=== PATIENT | male | born 1965 | race Caucasian/White ===

== ENCOUNTER 2023-03-16 00:42 | Inpatient (IN) | payer BC, SELFPAY ==
[2023-03-16] VITALS (35 sets, daily range): BP systolic 95–156; BP diastolic 55–96; PULSE 80–108; RESP 14–21; TEMP 36.1–37.7; O2SAT 89–99; BMI 36.6
--- NOTE | ~2023-03-16 | CT_ITS ---
EXAMINATION: CT abdomen pelvis w con DATE: 03/16/2023 03:40 INDICATION: Right perirectal/perianal abscess. TECHNIQUE: Computed tomography (CT) of the abdomen and pelvis was performed with 100 mL Omnipaque 350 intravenous contrast. Automated exposure control and iterative reconstruction technique were employe d. The dose-length product was 1526.82 mGy-cm. COMPARISON: None. FINDINGS: The visualized portions of the lung bases demonstrate mild atelectasis. No pleural effusion . The heart size is normal. No pericardial effusion. There is a small sliding hiatal hernia. There is diffuse hepatic steatosis. There are cysts in the liver measuring up to 15 mm. The gallbladder, sple en, pancreas, adrenal glands, and left kidney are normal. There are cysts in right kidney measuring u p to 7 mm. The prostate is moderately enlarged. There is a 4.3 x 1.0 x 2.1 cm perianal abscess on the right. There is fat stranding around this area, consistent with cellulitis. There are no dilated loo ps of bowel. The appendix is normal. There is mild aortic atherosclerosis. There are no pathologicall y enlarged lymph nodes. There is no free intraperitoneal fluid. There are changes of umbilical hernia repair. There is moderate lumbar spondylosis and mild thoracic spondylosis. IMPRESSION: 1. 4.3 x 1.0 x 2.1 cm right perianal abscess. Reviewed, dictated and finalized at location E.
--- NOTE | ~2023-03-16 | CT_ITS ---
EXAMINATION: CT abdomen pelvis w con DATE: 03/19/2023 13:33 INDICATION: Assess underlying perirectal abscess TECHNIQUE: Computed tomography (CT) of the abdomen and pelvis was performed with 100 mL Omnipaque-350 intravenous contrast. Automated exposure control and iterative reconstruction technique were employe d. The dose-length product was 1615.94 mGy-cm. COMPARISON: 03/16/2023 FINDINGS: Mild dependent atelectasis in the bilateral lower lobes. Heart size is normal. Aortic valve calcifica tion. No pericardial or pleural effusion. Small sliding-type hiatal hernia. Diffuse hepatic steatosis with focal sparing along the gallbladder fossa. There are few small low-attenuation hepatic cysts me asuring up to 1.5 cm. Gallbladder, pancreas, spleen, bilateral adrenal glands and left kidney are nor mal. There are couple subcentimeter right renal cyst. Postoperative change of prior umbilical hernia mesh repair. Bowels including the appendix are normal. Prostatomegaly. Bladder is normal. Small bilat eral fat-containing inguinal hernias. Interval placement of a surgical drain which extends to the subcutaneous fat slightly caudal to the p rior peripherally enhancing centrally low attenuation subcutaneous perianal abscess which has decreas ed in size, previously measuring 4.4 x 1.0 x 2.6 cm to currently measuring 3.5 x 0.5 x 1.6 cm. There is persistent stranding in the surrounding subcutaneous fat at the right buttock. There are a couple residual more homogeneous soft tissue density nodules without peripheral enhancement in the perirecta l fat cephalad to the level of the levator ani muscle, the larger and more caudal slightly centered s lightly to the right of midline measuring up to 2.7 x 1.8 cm and the smaller more cephalad centered t o the left of midline measuring up to 2.3 x 1.4 cm. There is no evidence stranding in the surrounding perirectal fat cephalad to the levator ani muscle.. IMPRESSION: 1. Decrease in size post incision and drainage of a now 3.5 x 0.5 x 1.6 cm superficial right perianal abscess. . Surgical drains extend through the subcutaneous fat slightly superficial to the residual abscess cavity. 2. A couple indeterminate more nodular appearing soft tissue densities abutting the posterior rectum located cephalad to the levator ani muscle and without surrounding inflammatory stranding. These coul d represent additional small abscesses however more homogeneous soft tissue density and lack of signi ficant surrounding inflammatory stranding as well as the risks and concern for neoplasm either benign or malignant or enlarged lymph nodes. Consider further evaluation with either endorectal ultrasound or pre and postcontrast MRI. Reviewed, dictated and finalized at location A. IMPRESSION: 1. Decrease in size post incision and drainage of a now 3.5 x 0.5 x 1.6 cm supe rficial right perianal abscess. . Surgical drains extend through the subcutaneo us fat slightly superficial to the residual abscess cavity. 2. A couple indeterminate more nodular appearing soft tissue densities abutting the posterior rectum located cephalad to the levator ani muscle and without huber rrounding inflammatory stranding. These could represent additional small absces ses however more homogeneous soft tissue density and lack of significant surrou nding inflammatory stranding as well as the risks and concern for neoplasm eith er benign or malignant or enlarged lymph nodes. Consider further evaluation wit h either endorectal ultrasound or pre and postcontrast MRI.
[2023-03-16] MEDS: SODIUM CHLORIDE 0.9% IV 1,000 ML 999 ML IV CONT ×2 (02:45→04:23)
[2023-03-16] MEDS: ONDANSETRON INJ 4 MG/2 ML VIAL IV PUSH (02:45)
[2023-03-16] MEDS: HYDROmorphone HCL INJ (*CRX) 1 MG/ML SYR IV PUSH ×5 (02:46→19:58)
--- NOTE | 2023-03-16 02:59 | ED_ITS ---
HPI - General Adult General Chief complaint: Skin/Abscess/Foreign Body Stated complaint: cyst near anus History of Present Illness HPI narrative: Patient 57-year-old gentleman who presents emerged department with chief complaint of right gluteal pain. The patient reports that he had a small cyst area that developed in his buttocks that he thought was initially a hemorrhoid became red tender and swollen. Patient reports he was seen at [facility] this morning the put him on oral antibiotics with Cipro and Flagyl did not do any imaging or lab and sent him home the patient reports that since she is left palm is right gluteal area has become firm red and is exquisitely tender. Related Data Allergies Allergy/AdvReac Type Severity Reaction Status Date / Time azithromycin Allergy Hives Verified 03/16/23 00:43 Review of Systems Review of Systems: A 10 system review of systems was completed on the patient and is negative except for what is stated in the HPI. Nursing and ancillary documentation was reviewed. Exam Narrative: GENERAL: Well-appearing, well-nourished, and in no acute distress. HEAD: Normocephalic, atraumatic. EYES: PERRLA and EOMI. ENT: Nares clear, no rhinorrhea or epistaxis. Mucous membranes moist. NECK: Supple. CHEST: Clear to auscultation. No respiratory distress. HEART: Regular rate and rhythm. No murmur heard. Normal peripheral pulses. ABDOMEN: Soft, nontender, nondistended, normal active bowel sounds. : The right hemibuttock is swollen tender erythematous there is no crepitance. There is no necrotic tissue EXTREMITIES: Normal range of motion. No edema. SKIN: Warm, dry, no rash. NEURO: No focal deficits. Alert and oriented x3. PSYCH: Normal mood and affect. Course Vital Signs Vital signs: Vital Signs Temperature 37.2 C 03/16/23 00:50 Pulse Rate 105 H 03/16/23 00:50 Respiratory Rate 18 03/16/23 00:50 Blood Pressure 125/58 L 03/16/23 00:50 Pulse Oximetry 97 03/16/23 00:50 Oxygen Delivery Room Air 03/16/23 00:50 Temperature 37.2 C 03/16/23 00:50 Pulse Rate 103 H 03/16/23 01:45 Respiratory Rate 14 03/16/23 01:45 Blood Pressure 156/74 H 03/16/23 01:45 Pulse Oximetry 97 03/16/23 01:45 Oxygen Delivery Room Air 03/16/23 00:50 Medical Decision Making Vital Signs Vital Signs: Vital Signs Temperature 37.2 C 03/16/23 00:50 Pulse Rate 105 H 03/16/23 00:50 Respiratory Rate 18 03/16/23 00:50 Blood Pressure 125/58 L 03/16/23 00:50 Pulse Oximetry 97 03/16/23 00:50 Oxygen Delivery Room Air 03/16/23 00:50 Temperature 37.2 C 03/16/23 00:50 Pulse Rate 103 H 03/16/23 01:45 Respiratory Rate 14 03/16/23 01:45 Blood Pressure 156/74 H 03/16/23 01:45 Pulse Oximetry 97 03/16/23 01:45 Oxygen Delivery Room Air 03/16/23 00:50 Discharge Plan Discharge Follow-up/Referrals: PHYSICIAN,SENIOR QUALITATIVE RESEARCHER [Primary Care Provider] -
[2023-03-16 03:06] LABS: Basophils Absolute Auto 0.1 K/mm3 (0.0-0.1); Basophils Percent Auto 0.4 % (0.2-1.2); Eosinophils Percent Auto 0.2 % (0-4.4); Hematocrit 50.6 % (42.0-52.0); Immature Granulocyte Absolute 0.19 K/mm3 (0.00-0.031); Immature Granulocyte Percent A 0.8 % (0-0.5); Lymphocytes Percent Auto 10.1 % (18.3-44.2); Mean Corpuscular HGB Conc 33.6 g/dl (32-36); Mean Corpuscular Hemoglobin 32.8 pg (26-34); Mean Corpuscular Volume 97.5 fl (80-100); Mean Platelet Volume 11.5 fl (7.4-10.4); Monocytes Absolute Auto 2.2 K/mm3 (0.1-0.6); Monocytes Percent Auto 8.9 % (2.6-8.5); Neutrophils Absolute Auto 19.7 K/mm3 (1.3-6.7); Neutrophils Percent Auto 79.6 % (45.5-73.1); Platelet Count Result 207 k/mm3 (150-375); Red Blood Count 5.19 M/mm3 (4.6-6.20); Red Cell Distribution Width 12.3 % (11.5-14.5); White Blood Count 24.8 K/mm3 (4.5-10.0)
[2023-03-16 03:16] LABS: Alanine Aminotransferase 18 U/L (6-50); Albumin Level 4.2 g/dL (3.5-5.1); Alkaline Phosphatase 93 U/L (38-126); Anion Gap 9 mmol/L (8-16); Aspartate Amino Transferase 28 U/L (17-59); Blood Urea Nitrogen 15 mg/dL (9-20); Calcium 8.9 mg/dL (8.4-10.2); Carbon Dioxide 28 mmol/L (22-30); Chloride 99 mmol/L (98-107); Estimated CRCL calculation 116 ml/min; Estimated Glomerular Filt Rate > 60; Glucose 137 mg/dL (65-110); Lipase 59 U/L (23-300); Sodium 136 mmol/L (137-145)
[2023-03-16 03:17] LABS: INR 1.1; Prothrombin Time 14.6 Seconds (11.1-14.7)
[2023-03-16 03:18] LABS: Partial Thromboplastin Time 32.4 SECONDS (22.3-36.8)
[2023-03-16] MEDS: PIPERACILLN/TAZ 3.375GM/NS50ML 3.375 GM/50 ML BAG IVPB ×4 (04:05→20:01)
[2023-03-16] MEDS: ACETAMINOPHEN 500 MG TABLET 1000 MG PO (04:19)
--- NOTE | 2023-03-16 04:31 | PC.NURSE ---
pt has a temp of 100.5 Tylenol was given. Pts abscess on his right buttox is red,hot and the center is hard. Abscess has been outlined with a green sharpie
--- NOTE | 2023-03-16 06:04 | PC.NURSE ---
report called to Tess.
[2023-03-16] MEDS: SODIUM CHLORIDE 0.9% IV 1,000 ML 125 ML IV CONT (06:07)
--- NOTE | 2023-03-16 06:44 | ADMGEN ---
This patient, Trenton Crockett, was admitted to Medical Room 242-01. Patient/family oriented to hospital policies and general routines including ID bracelet, bed and alarms, visiting hours, pain management, procedures, bathroom and other care routines, personal items, smoking policy, room service/diet, and visiting hours. Information on how to activate the Rapid Response Team has been discussed. Patient/Family are encouraged to report perceived risks to care and to ask questions if they do not understand what they are told or what they should do.
--- NOTE | 2023-03-16 08:11 | WPDANESEPPF ---
Anes - Initial Pre Proc Eval Procedure: Operation Date: 03/16/23 08:00 Proposed Procedures p I&D Indu-Rectal Abscess - Zachary Schmidt MD Date/Time: 03/16/23 08:11 Surgeon: Zachary Schmidt MD Pre Op Diagnosis: Perianal Abscess Patient Data Age: 57 Gender: M Height: 1.8 m Weight: 119.1 kg Last Vital Signs Temp 36.6 C 03/16/23 06:34 Pulse 93 03/16/23 06:34 Resp 16 03/16/23 06:34 BP 136/81 03/16/23 06:34 Pulse Ox 93 03/16/23 06:34 O2 Del Method Room Air 03/16/23 00:50 Allergies Allergy/AdvReac Type Severity Reaction Status Date / Time azithromycin Allergy Hives Verified 03/16/23 00:43 Home Medications Medication Instructions Recorded Confirmed Type No Home Medications 03/16/23 03/16/23 History Laboratory Tests 03/16/23 02:51 WBC 24.8 H K/mm3 (4.5-10.0) RBC 5.19 M/mm3 (4.6-6.20) Hgb 17.0 g/dL (14.0-18.0) Hct 50.6 % (42.0-52.0) MCV 97.5 fl (80-100) MCH 32.8 pg (26-34) MCHC 33.6 g/dl (32-36) RDW 12.3 % (11.5-14.5) Plt Count 207 k/mm3 (150-375) MPV 11.5 H fl (7.4-10.4) Immature Gran % (Auto) 0.8 H % (0-0.5) Neut % (Auto) 79.6 H % (45.5-73.1) Lymph % (Auto) 10.1 L % (18.3-44.2) [place] % (Auto) 8.9 H % (2.6-8.5) Eos % (Auto) 0.2 % (0-4.4) Baso % (Auto) 0.4 % (0.2-1.2) Lymph # (Auto) 2.50 K/mm3 (0.9-3.2) [place] # (Auto) 2.2 H K/mm3 (0.1-0.6) Eos # (Auto) 0.0 K/mm3 (0-0.3) Baso # (Auto) 0.1 K/mm3 (0.0-0.1) Abs Immat Gran (auto) 0.19 H K/mm3 (0.00-0.031) Absolute Neuts (auto) 19.7 H K/mm3 (1.3-6.7) Absolute Nucleated RBC 0.0 K/mm3 (0.0-0.012) Nucleated RBC % 0.0 % (0.0-0.2) PT 14.6 Seconds (11.1-14.7) INR 1.1 APTT 32.4 SECONDS (22.3-36.8) Sodium 136 L mmol/L (137-145) Potassium 4.0 mmol/L (3.4-5.0) Chloride 99 mmol/L (98-107) Carbon Dioxide 28 mmol/L (22-30) Anion Gap 9 mmol/L (8-16) BUN 15 mg/dL (9-20) Creatinine 0.80 mg/dL (0.7-1.3) Estim Creat Clear Calc 116 ml/min Estimated GFR > 60 (59 - ) Glucose 137 H mg/dL (65-110) Lactic Acid 2.0 mmol/L (0.7-2.0) Calcium 8.9 mg/dL (8.4-10.2) Total Bilirubin 2.0 H mg/dL (0.2-1.3) AST 28 U/L (17-59) ALT 18 U/L (6-50) Alkaline Phosphatase 93 U/L (38-126) Total Protein 8.0 g/dL (6.3-8.2) Albumin 4.2 g/dL (3.5-5.1) Lipase 59 U/L (23-300) Patient hx anesthesia problems: none Family hx anesthesia problems: none Results Review: All pre-operative results and documents have been reviewed as part of the pre-operative evaluation. [facility] Social History Social History Smoking packs per day: 20 Smoking cigarettes per day: 400.0 Smoking status: Current every day smoker Tobacco type: cigarettes Alcohol intake: current Drinks per week: 1 Substance use: never Substance use type: does not use Lack of Transportation: No Lack of Food: Never True Current Housing: I Have Housing Concerned About Future Housing: No Difficulty Paying Gas/Electric Bills: No Difficulty Paying for Meds: No Currently Unemployed: No Education: Bachelor's Degree Difficulty w/ Childcare or Family Care: No Spiritual care concerns: No Anes - Eval Final PreProcedure Day of Procedure 03/16/23 08:11 Patient weight: obese Heart: regular rate and rhythm Lungs: decreased breath sounds Airway: Mallampati scale class II Neurological: alert and oriented Last oral intake: >/= 8 hours ASA classification: III Emergent: yes Anesthetic plan: proceed Anesthesia type and monitoring: general LMA and standard monitoring Results Review: All pre-operative results and documents have been reviewed as part of the pre-operative evaluation. Informed Consent: The patient's anesthetic plan and its attendant risks and be
--- NOTE | 2023-03-16 08:17 | PM.IMHP ---
H&P: HPI History of Present Illness Date/Time: 03/16/23 08:17 Chief Complaint: Perirectal abscess. Narrative: Patient is a 57-year-old gentleman presented to the emergency room with a four-day history of increasing right medial buttock pain. He has never had a prior perirectal abscess. Subjective fevers and chills at home. He had elevated white blood count [address] in the emergency room. CT scan of the abdomen pelvis showed a large area of phlegmon in the medial right buttock region with a 4cm perirectal abscess. He is being admitted for IV antibiotics and surgical management. He is not a diabetic. Review of Systems Review of Systems: The remainder of the review of systems to include constitutional, HEENT, cardiovascular, respiratory, GI, , integumentary, musculoskeletal, endocrine, immunologic, hematologic, psychiatric, and neurologic are all negative except for which is mentioned above in the HPI. [facility] Social History Social History Smoking packs per day: 20 Smoking cigarettes per day: 400.0 Smoking status: Current every day smoker Tobacco type: cigarettes Alcohol intake: current Drinks per week: 1 Substance use: never Substance use type: does not use Lack of Transportation: No Lack of Food: Never True Current Housing: I Have Housing Concerned About Future Housing: No Difficulty Paying Gas/Electric Bills: No Difficulty Paying for Meds: No Currently Unemployed: No Education: Bachelor's Degree Difficulty w/ Childcare or Family Care: No Spiritual care concerns: No Meds Home Medications and Allergies Home Medications Medication Instructions Recorded Confirmed Type No Home Medications 03/16/23 03/16/23 History Allergies Allergy/AdvReac Type Severity Reaction Status Date / Time azithromycin Allergy Hives Verified 03/16/23 00:43 Vital Signs Vital Signs - 24 hr 03/16/23 00:50 03/16/23 01:45 03/16/23 01:15 Temperature 37.2 C Pulse Rate 105 H 103 H 108 H Respiratory Rate 18 14 19 Blood Pressure 125/58 L 156/74 H 153/96 H Pulse Oximetry 97 97 99 Oxygen Delivery Room Air 03/16/23 04:06 03/16/23 01:35 03/16/23 01:47 Temperature Pulse Rate 101 H Respiratory Rate 14 Blood Pressure 136/89 153/96 H 156/74 H Pulse Oximetry 99 Oxygen Delivery 03/16/23 04:09 03/16/23 04:10 03/16/23 04:17 Temperature Pulse Rate Respiratory Rate Blood Pressure 129/72 Pulse Oximetry 91 92 90 Oxygen Delivery 03/16/23 04:30 03/16/23 04:31 03/16/23 04:45 Temperature Pulse Rate Respiratory Rate Blood Pressure 146/84 H Pulse Oximetry 91 89 L 92 Oxygen Delivery 03/16/23 05:00 03/16/23 05:02 03/16/23 05:15 Temperature Pulse Rate Respiratory Rate Blood Pressure 126/71 Pulse Oximetry 93 94 93 Oxygen Delivery 03/16/23 05:33 03/16/23 05:30 03/16/23 05:31 Temperature 36.5 C Pulse Rate Respiratory Rate Blood Pressure 125/75 Pulse Oximetry 93 94 Oxygen Delivery 03/16/23 05:45 03/16/23 06:00 03/16/23 06:01 Temperature Pulse Rate Respiratory Rate 21 H Blood Pressure 131/74 Pulse Oximetry 96 93 95 Oxygen Delivery 03/16/23 06:34 Temperature 36.6 C Pulse Rate 93 Respiratory Rate 16 Blood Pressure 136/81 Pulse Oximetry 93 Oxygen Delivery Exam Const: General: comfortable and no acute distress Eyes: Sclera: sclerae normal Pupils: Equal, round and reactive pupils present EOM: EOMs intact bilaterally Neck: Neck: supple and no JVD Resp: Effort & Inspection: normal respiratory effort Auscultation: clear to auscultation bilaterally Cardio: Rate: regular rate Rhythm: regular rhythm GI: GI Palp: Yes Soft to palpation, No Firmness to palpation present (GI), No Tenderness to palpation present (GI), No Guarding due to palpation present (GI) and No Hernia present Skin: Other: Patient has a 10
--- NOTE | 2023-03-16 08:22 | WPDHPUPDATE1 ---
History and Physical Update Update Date/Time: 03/16/23 08:22 History and Physical has been reviewed, including an updated exam of the patient. There are NO changes in the patient's condition. Risks, benefits, and alternatives have been discussed and questions answered. Patient agrees to proceed with procedure.
[2023-03-16] MEDS: LIDO 1%/EPINEPHRINE 1:100,000 20 ML VIAL 30 ML INFILTRATE (08:58)
[2023-03-16] MEDS: KETOROLAC 30 MG/ML VIAL (*BKC) IV PUSH (09:00)
[2023-03-16] MEDS: LACTATED RINGERS 1,000 ML 30 ML IV CONT (09:19)
--- NOTE | 2023-03-16 09:39 | W.PM.PROC2 ---
Procedure Note - Detailed Date of Procedure 03/16/23 Pre-op Diagnosis Perirectal abscess Post-op Diagnosis Same Procedure Performed Complex incision and drainage of perirectal abscess. Surgeon Zachary Schmidt MD Radiation Officer [facility] Anesthesia General Indications Patient presented with 4 day history of perianal pain. White blood cell count [address] showed 4cm perirectal abscess. Presents now for emergent incision and drainage of abscess. Findings Large right side a perirectal abscess with extension superiorly to the base of the perineum and posteriorly towards the coccyx. Abscess cavity 4 to 5 cm in diameter. Description of Procedure After informed consent was obtained patient brought to the operating room was placed in the lithotomy position on the operative table and then general endotracheal anesthesia was administered. The perianal and perineal region was then prepped and draped in usual sterile fashion with the patient and high stirrups. As there was so much induration and not much fluctuance to be felt in the medial right buttock region I used a long 18gauge needle to aspirate the soft tissue to see if I case see exactly where the abscess cavity was located. Approximately the 10 o'clock position was able to aspirate pus and so I made a radial incision in this area with a scalpel. About 2cm into the subcutaneous tissues today abscess cavity and pus freely drained from the cavity. I then obtained a culture swab for aerobic and anaerobic organisms as well as Gram stain. This was sent to microbiology. Then with digital exploration of the abscess cavity I could feel that it extended superiorly towards the perineum and inferiorly towards the coccyx. I then made counter incisions in both of these areas with a scalpel then irrigated out the abscess cavity and the anterior superior tracts with about 500cc of saline solution. Once this was done hemostasis was achieved at the skin edges utilized electrocautery. The fluid that was irrigated did not contain any more pus. I then proceeded to place quarter-inch Neal drains through the main abscess cavity and the counter incisions. They were then sutured to themselves in a loop configuration utilizing 3-0 nylon sutures. I then packed the abscess cavity and the tracks with quarter-inch iodoform gauze. This achieved hemostasis well. Injected 1% lidocaine mixed with 0.5% Marcaine with some epinephrine around the incisions for local anesthetic effect. There was then cleaned and then will by 4 gauze ABD pads and disposable underwear was used for final dressing. The patient tolerated the procedure well no complications. All sponges, needles, and instrument counts were correct at the end procedure. EBL was _ 25 __cc. The patient was awakened and taken to recovery in stable and satisfactory condition. Implants None Estimated Blood Loss 25 Urine Output 200 Drains Yes ([place] drains x2) Packing Yes (Quarter-inch iodoform gauze) Pathology Other (Abscess culture sent for aerobic and anaerobic cultures as well as Gram stain) Complications No immediate complications Condition Stable Disposition PACU [facility] Billing Surgery - Charge Forward: Surgery Billing
[2023-03-16] MEDS: fentaNYL CITRATE INJ (*CRX) 100 MCG/2 ML VIAL 50 MCG IV PUSH (10:00)
[2023-03-16] MEDS: SCOPOLAMINE 1.5 MG PATCH TRANSDERM (11:26)
[2023-03-16] MEDS: oxyCODONE HCL (*CRX) 5 MG TAB IR PO ×2 (11:27→23:26)
[2023-03-16 18:04] LABS: Appearance Urine Clear (Clear); Bacteria Urine None Seen /hpf; Bilirubin Urine Negative (Negative); Blood Urine 2+ (Negative); Color Urine Yellow (Yellow); Glucose Urine UA 3+ mg/dL (Negative); Ketones Urine Trace mg/dL (Negative); Leukocyte Esterase Ur Negative LEU/UL (Negative); Nitrate Urine Negative (Negative); Non Pathogenic Casts 0-2; Protein Urine 1+ mg/dL (Negative); Squamous Epithelial Cell Urine None seen /hpf (Few); Urobilinogen Urine 0.2 mg/dL (<2.0); WBC Urine 0-5 /hpf; pH Urine 5.5 (5.0-9.0)
[2023-03-16 18:07] LABS: Specific Grav Ur 1.045 (1.001-1.035)
[2023-03-16 18:08] LABS: Add Urine Microscopic? YES
[2023-03-17 02:00] VITALS: BP 146/77; PULSE 81; RESP 20; TEMP 37.2; O2SAT 95
[2023-03-17] MEDS: HYDROmorphone HCL INJ (*CRX) 1 MG/ML SYR IV PUSH ×3 (02:30→20:15)
[2023-03-17] MEDS: PIPERACILLN/TAZ 3.375GM/NS50ML 3.375 GM/50 ML BAG IVPB ×4 (03:34→20:15)
[2023-03-17 06:00] VITALS: BP 134/60; PULSE 85; RESP 22; TEMP 36.8; O2SAT 96
[2023-03-17 07:40] VITALS: O2SAT 96
[2023-03-17 07:57] LABS: Basophils Absolute Auto 0.1 K/mm3 (0.0-0.1); Basophils Percent Auto 0.3 % (0.2-1.2); Eosinophils Percent Auto 0.2 % (0-4.4); Hemoglobin 13.7 g/dL (14.0-18.0); Immature Granulocyte Absolute 0.15 K/mm3 (0.00-0.031); Immature Granulocyte Percent A 0.8 % (0-0.5); Lymphocytes Absolute Auto 1.86 K/mm3 (0.9-3.2); Mean Corpuscular HGB Conc 33.4 g/dl (32-36); Mean Corpuscular Hemoglobin 32.6 pg (26-34); Mean Corpuscular Volume 97.6 fl (80-100); Mean Platelet Volume 11.4 fl (7.4-10.4); Monocytes Absolute Auto 1.2 K/mm3 (0.1-0.6); Monocytes Percent Auto 6.2 % (2.6-8.5); Neutrophils Absolute Auto 15.3 K/mm3 (1.3-6.7); Neutrophils Percent Auto 82.5 % (45.5-73.1); Platelet Count Result 183 k/mm3 (150-375); Red Cell Distribution Width 12.6 % (11.5-14.5); White Blood Count 18.6 K/mm3 (4.5-10.0)
[2023-03-17] MEDS: oxyCODONE HCL (*CRX) 5 MG TAB IR PO (08:39)
[2023-03-17 10:02] VITALS: BP 132/66; PULSE 84; RESP 16; TEMP 36.9; O2SAT 95
[2023-03-17] MEDS: SODIUM CHLORIDE 0.9% IV 1,000 ML 125 ML IV CONT (10:13)
[2023-03-17 14:05] VITALS: BP 131/63; PULSE 72; RESP 16; TEMP 36.3; O2SAT 95
[2023-03-17] MEDS: oxyCODONE HCL (*CRX) 2.5 MG TAB IR 7.5 MG PO (16:45)
[2023-03-17 20:25] VITALS: BP 150/66; PULSE 91; RESP 18; TEMP 36.8; O2SAT 94
[2023-03-18] MEDS: oxyCODONE HCL (*CRX) 2.5 MG TAB IR 7.5 MG PO ×3 (00:34→19:53)
[2023-03-18] MEDS: PIPERACILLN/TAZ 3.375GM/NS50ML 3.375 GM/50 ML BAG IVPB ×4 (03:11→20:05)
[2023-03-18 05:26] LABS: Basophils Absolute Auto 0.1 K/mm3 (0.0-0.1); Basophils Percent Auto 0.3 % (0.2-1.2); Eosinophils Absolute Auto 0.2 K/mm3 (0-0.3); Eosinophils Percent Auto 1.3 % (0-4.4); Hematocrit 41.9 % (42.0-52.0); Hemoglobin 13.9 g/dL (14.0-18.0); Immature Granulocyte Absolute 0.12 K/mm3 (0.00-0.031); Immature Granulocyte Percent A 0.8 % (0-0.5); Lymphocytes Percent Auto 18.3 % (18.3-44.2); Mean Corpuscular HGB Conc 33.2 g/dl (32-36); Mean Corpuscular Hemoglobin 32.6 pg (26-34); Mean Corpuscular Volume 98.1 fl (80-100); Mean Platelet Volume 11.3 fl (7.4-10.4); Monocytes Absolute Auto 1.1 K/mm3 (0.1-0.6); Monocytes Percent Auto 6.7 % (2.6-8.5); Neutrophils Absolute Auto 11.5 K/mm3 (1.3-6.7); Neutrophils Percent Auto 72.6 % (45.5-73.1); Platelet Count Result 232 k/mm3 (150-375); Red Blood Count 4.27 M/mm3 (4.6-6.20); Red Cell Distribution Width 12.3 % (11.5-14.5); White Blood Count 15.9 K/mm3 (4.5-10.0)
[2023-03-18 06:00] VITALS: BP 144/62; PULSE 90; RESP 20; TEMP 37; O2SAT 96
[2023-03-18] MEDS: FAMOTIDINE 20 MG TABLET PO ×2 (09:37→20:04)
--- NOTE | 2023-03-18 09:41 | PM.PNGS ---
Progress Note: A&P Assessment and Plan (1) Indu-rectal abscess: Code(s): K61.1 - Rectal abscess Status: Acute Assessment and Plan: Slow improvement. Continue IV antibiotics and trending white blood cell count. Await culture results to make sure that he is on the appropriate antibiotics. Continue Sitz baths or movements and p.r.n. for comfort. Ambulate in the hallways. Continue supportive management. Subjective Subjective Date/Time Seen: 03/18/23 09:41 Interval history: Patient states his pain is slightly better than yesterday. Able to tolerate the pain and only take the oxycodone every 6hours. He is having bowel movements and showering at the bowel movements to clean himself. No fever. White blood cell count is down to 15,900 from initial white blood count of 30,000 and a white blood cell count of 18,000 yesterday. Blood culture results are preliminary but no growth to date. Cultures of the abscess cavity are pending but showed many white blood cells and mixed jayleen. He remains on IV antibiotics. Exam Skin: Other: Right medial buttock regions with decreasing erythema. Still has moderate induration of the area. Neal drains through the abscess cavity encountered incisions are in place. Drainage is serous. Wound is clean without any necrotic tissue. Objective Data Vital Signs Vital Signs: Vital Signs - 24 hr 03/17/23 10:02 03/17/23 14:05 03/17/23 20:25 Temperature 36.9 C 36.3 C L 36.8 C Pulse Rate 84 72 91 Respiratory Rate 16 16 18 Blood Pressure 132/66 131/63 150/66 H Pulse Oximetry 95 95 94 Oxygen Delivery 03/17/23 20:00 03/18/23 06:00 Temperature 37.0 C Pulse Rate 90 Respiratory Rate 20 Blood Pressure 144/62 H Pulse Oximetry 96 Oxygen Delivery Room Air Intake/Output Intake/Output: Intake & Output 03/15/23 03/16/23 03/17/23 03/18/23 23:59 23:59 23:59 23:59 Intake Total 3920 2280 600 Output Total 400 Balance 3520 2280 600 Meds/Results Medications: Active Medications Generic Name Dose Route Start Last Admin Trade Name Freq PRN Reason Stop Dose Admin Acetaminophen 1,000 mg 03/16/23 09:36 Acetaminophen 500 Mg Tablet PO Q6H PRN Mild Pain (1-3) or Fever Al Hydrox/Mg Hydrox/Simethicone 30 ml 03/18/23 09:25 Mag Hydrox/Al Hydrox/Simeth 30 Ml Udc PO Q6H PRN Indigestion Famotidine 20 mg 03/18/23 09:25 03/18/23 09:37 Famotidine 20 Mg Tablet PO 20 mg Q12HR AUGUST Administration Hydromorphone HCl 1 mg 03/17/23 13:06 03/17/23 20:15 Hydromorphone Hcl Inj (*Crx) 1 Mg/Ml Syr IV PUSH 1 mg Q3H PRN Administration Pain Rated 7-10 Piperacillin/Tazobactam/Dextrose 3.375 gm in 50 mls @ 100 mls/hr 03/16/23 09:00 03/18/23 09:02 Zosyn 3.375 Gm/Ns 50 Ml IVPB 100 mls/hr Q6H AUGUST Administration Ondansetron HCl 4 mg 03/16/23 05:41 Ondansetron Inj 4 Mg/2 Ml Vial IV PUSH Q4H PRN Nausea Ondansetron HCl 4 mg 03/16/23 08:20 Ondansetron Inj 4 Mg/2 Ml Vial IV PUSH ONCE PRN Nausea Oxycodone HCl 7.5 mg 03/17/23 13:06 03/18/23 09:36 Oxycodone Hcl (*Crx) 2.5 Mg Tab Ir PO 7.5 mg Q6H PRN Administration Pain Rated 7-10 Radiology Results: ITS Impressions Abdomen/Pelvis CT 03/16/23 05:16 IMPRESSION: 1. 4.3 x 1.0 x 2.1 cm right perianal abscess. Labs Labs: Laboratory Results - last 24 hr 03/18/23 04:55 WBC 15.9 H RBC 4.27 L Hgb 13.9 L Hct 41.9 L MCV 98.1 MCH 32.6 MCHC 33.2 RDW 12.3 Plt Count 232 MPV 11.3 H Immature Gran % (Auto) 0.8 H Neut % (Auto) 72.6 Lymph % (Auto) 18.3 [place] % (Auto) 6.7 Eos % (Auto) 1.3 Baso % (Auto) 0.3 Lymph # (Auto) 2.90 [place] # (Auto) 1.1 H Eos # (Auto) 0.2 Baso # (Auto) 0.1 Abs Immat Gran (auto) 0.12 H Absolute Neuts (auto) 11.5 H Absolute Nucleated RBC 0.0 Nucleated RBC % 0.0
[2023-03-18] MEDS: HYDROmorphone HCL INJ (*CRX) 1 MG/ML SYR IV PUSH (14:22)
[2023-03-18 14:30] VITALS: BP 157/63; PULSE 88; RESP 18; TEMP 36.9; O2SAT 97
[2023-03-18 23:00] VITALS: BP 153/67; PULSE 92; RESP 16; TEMP 37.1; O2SAT 96
[2023-03-19] MEDS: HYDROmorphone HCL INJ (*CRX) 1 MG/ML SYR IV PUSH ×4 (00:46→21:41)
[2023-03-19] MEDS: PIPERACILLN/TAZ 3.375GM/NS50ML 3.375 GM/50 ML BAG IVPB ×4 (03:58→21:42)
[2023-03-19] MEDS: oxyCODONE HCL (*CRX) 2.5 MG TAB IR 7.5 MG PO ×3 (06:11→18:39)
[2023-03-19 06:15] VITALS: BP 162/72; PULSE 89; RESP 14; TEMP 37.2; O2SAT 92
[2023-03-19] MEDS: FAMOTIDINE 20 MG TABLET PO ×2 (08:59→21:45)
[2023-03-19 09:11] LABS: Basophils Absolute Auto 0.1 K/mm3 (0.0-0.1); Basophils Percent Auto 0.6 % (0.2-1.2); Eosinophils Absolute Auto 0.3 K/mm3 (0-0.3); Eosinophils Percent Auto 1.9 % (0-4.4); Hematocrit 44.2 % (42.0-52.0); Hemoglobin 14.8 g/dL (14.0-18.0); Immature Granulocyte Absolute 0.13 K/mm3 (0.00-0.031); Immature Granulocyte Percent A 0.8 % (0-0.5); Lymphocytes Absolute Auto 2.55 K/mm3 (0.9-3.2); Lymphocytes Percent Auto 16.5 % (18.3-44.2); Mean Corpuscular HGB Conc 33.5 g/dl (32-36); Mean Corpuscular Hemoglobin 32.8 pg (26-34); Mean Platelet Volume 10.7 fl (7.4-10.4); Monocytes Percent Auto 6.3 % (2.6-8.5); Neutrophils Absolute Auto 11.4 K/mm3 (1.3-6.7); Neutrophils Percent Auto 73.9 % (45.5-73.1); Platelet Count Result 241 k/mm3 (150-375); Red Blood Count 4.51 M/mm3 (4.6-6.20); Red Cell Distribution Width 12.5 % (11.5-14.5); White Blood Count 15.5 K/mm3 (4.5-10.0)
--- NOTE | 2023-03-19 12:39 | PM.PNGS ---
Progress Note: A&P Assessment and Plan (1) Indu-rectal abscess: Code(s): K61.1 - Rectal abscess Status: Acute Assessment and Plan: Patient still has significant induration and redness of the right buttock region. I am suspicious that he might have a residual undrained abscess since his white blood cell count has been stable at 15,000 thousand. Will repeat a CT scan abdomen pelvis with IV contrast. Will make sure that has coverage for anaerobic an organism since Bacteroides she is were as cultured in the abscess cavity. Streptococcal species will be covered by current Zosyn. Subjective Subjective Date/Time Seen: 03/19/23 12:39 Interval history: Having significant pain and redness over the right buttock region. No fever but his white blood cell count has been stable 15,000. No fever. Abscess culture results reveals Bacteroides and strep species. Exam Skin: Other: Right mid and medial buttock region region still erythematous and has moderate induration. Serous drainage from the wounds. No obvious fluctuance noted on the buttock region. Objective Data Vital Signs Vital Signs: Vital Signs - 24 hr 03/18/23 14:30 03/18/23 20:00 03/18/23 23:00 Temperature 36.9 C 37.1 C Pulse Rate 88 92 Respiratory Rate 18 16 Blood Pressure 157/63 H 153/67 H Pulse Oximetry 97 96 Oxygen Delivery Room Air 03/19/23 06:15 Temperature 37.2 C Pulse Rate 89 Respiratory Rate 14 Blood Pressure 162/72 H Pulse Oximetry 92 Oxygen Delivery Intake/Output Intake/Output: Intake & Output 03/16/23 03/17/23 03/18/23 03/19/23 23:59 23:59 23:59 23:59 Intake Total 3920 2280 1610 880 Output Total 400 Balance 3520 2280 1610 880 Meds/Results Medications: Active Medications Generic Name Dose Route Start Last Admin Trade Name Freq PRN Reason Stop Dose Admin Acetaminophen 1,000 mg 03/16/23 09:36 Acetaminophen 500 Mg Tablet PO Q6H PRN Mild Pain (1-3) or Fever Al Hydrox/Mg Hydrox/Simethicone 30 ml 03/18/23 09:25 Mag Hydrox/Al Hydrox/Simeth 30 Ml Udc PO Q6H PRN Indigestion Famotidine 20 mg 03/18/23 09:25 03/19/23 08:59 Famotidine 20 Mg Tablet PO 20 mg Q12HR AUGUST Administration Hydromorphone HCl 1 mg 03/17/23 13:06 03/19/23 09:09 Hydromorphone Hcl Inj (*Crx) 1 Mg/Ml Syr IV PUSH 1 mg Q3H PRN Administration Pain Rated 7-10 Piperacillin/Tazobactam/Dextrose 3.375 gm in 50 mls @ 100 mls/hr 03/16/23 09:00 03/19/23 10:39 Zosyn 3.375 Gm/Ns 50 Ml IVPB Infused Q6H AUGUST Infusion Ondansetron HCl 4 mg 03/16/23 05:41 Ondansetron Inj 4 Mg/2 Ml Vial IV PUSH Q4H PRN Nausea Ondansetron HCl 4 mg 03/16/23 08:20 Ondansetron Inj 4 Mg/2 Ml Vial IV PUSH ONCE PRN Nausea Oxycodone HCl 7.5 mg 03/17/23 13:06 03/19/23 06:11 Oxycodone Hcl (*Crx) 2.5 Mg Tab Ir PO 7.5 mg Q6H PRN Administration Pain Rated 7-10 Radiology Results: ITS Impressions Abdomen/Pelvis CT 03/16/23 05:16 IMPRESSION: 1. 4.3 x 1.0 x 2.1 cm right perianal abscess. Labs Labs: Laboratory Results - last 24 hr 03/19/23 09:06 WBC 15.5 H RBC 4.51 L Hgb 14.8 Hct 44.2 MCV 98.0 MCH 32.8 MCHC 33.5 RDW 12.5 Plt Count 241 MPV 10.7 H Immature Gran % (Auto) 0.8 H Neut % (Auto) 73.9 H Lymph % (Auto) 16.5 L Pender % (Auto) 6.3 Eos % (Auto) 1.9 Baso % (Auto) 0.6 Lymph # (Auto) 2.55 [place] # (Auto) 1.0 H Eos # (Auto) 0.3 Baso # (Auto) 0.1 Abs Immat Gran (auto) 0.13 H Absolute Neuts (auto) 11.4 H Absolute Nucleated RBC 0.0 Nucleated RBC % 0.0
[2023-03-19] MEDS: metroNIDAZOLE 500 MG/ISO 100ML 500 MG/100 ML BAG 100 MG IVPB ×2 (13:37→18:09)
[2023-03-19 14:00] VITALS: BP 146/74; PULSE 85; RESP 18; TEMP 37.1; O2SAT 95
[2023-03-19 21:30] VITALS: BP 156/78; PULSE 84; RESP 14; TEMP 36.6; O2SAT 95
[2023-03-20] MEDS: metroNIDAZOLE 500 MG/ISO 100ML 500 MG/100 ML BAG 100 MG IVPB ×4 (00:26→17:30)
[2023-03-20] MEDS: oxyCODONE HCL (*CRX) 2.5 MG TAB IR 7.5 MG PO ×4 (00:36→18:44)
[2023-03-20] MEDS: HYDROmorphone HCL INJ (*CRX) 1 MG/ML SYR IV PUSH ×4 (02:44→20:33)
[2023-03-20] MEDS: PIPERACILLN/TAZ 3.375GM/NS50ML 3.375 GM/50 ML BAG IVPB ×4 (02:45→20:46)
[2023-03-20 06:06] VITALS: BP 132/59; PULSE 73; RESP 16; TEMP 36.4; O2SAT 94
[2023-03-20] MEDS: FAMOTIDINE 20 MG TABLET PO ×2 (08:49→20:46)
[2023-03-20 10:22] LABS: Basophils Absolute Auto 0.1 K/mm3 (0.0-0.1); Basophils Percent Auto 0.6 % (0.2-1.2); Eosinophils Absolute Auto 0.4 K/mm3 (0-0.3); Eosinophils Percent Auto 2.7 % (0-4.4); Hematocrit 46.4 % (42.0-52.0); Hemoglobin 15.7 g/dL (14.0-18.0); Immature Granulocyte Absolute 0.22 K/mm3 (0.00-0.031); Immature Granulocyte Percent A 1.6 % (0-0.5); Lymphocytes Absolute Auto 2.37 K/mm3 (0.9-3.2); Lymphocytes Percent Auto 17.5 % (18.3-44.2); Mean Corpuscular HGB Conc 33.8 g/dl (32-36); Mean Corpuscular Hemoglobin 33.1 pg (26-34); Mean Corpuscular Volume 97.7 fl (80-100); Mean Platelet Volume 10.4 fl (7.4-10.4); Monocytes Absolute Auto 1.1 K/mm3 (0.1-0.6); Neutrophils Absolute Auto 9.4 K/mm3 (1.3-6.7); Neutrophils Percent Auto 69.6 % (45.5-73.1); Platelet Count Result 266 k/mm3 (150-375); Red Blood Count 4.75 M/mm3 (4.6-6.20); Red Cell Distribution Width 12.4 % (11.5-14.5); White Blood Count 13.6 K/mm3 (4.5-10.0)
--- NOTE | 2023-03-20 13:36 | PM.PNGS ---
Progress Note: A&P Assessment and Plan (1) Indu-rectal abscess: Code(s): K61.1 - Rectal abscess Status: Acute Assessment and Plan: Clinically the patient is not improving as quickly as I would have expected. CT shows retained fluid collection superior to the [place] drains. High blood cell count is slowly decreased and 13,000 and he is now on Zosyn and Flagyl. He has cultured out strep species and Bacteroides. I have recommended that we return to the operating room tomorrow for an evaluation under anesthesia and exploration of the drained abscess cavity to see if there is an undrained portion. He has agreed to this procedure and will schedule to be done tomorrow in the operating room. Continue present management. Subjective Subjective Date/Time Seen: 03/20/23 13:36 Interval history: Patient states that his wound is still moderately tender. Especially with having his bowel movements. White blood cell count slightly decreased to 13,000 from 15,[address] scan of the abdomen pelvis revealed a 3cm fluid collection which is deep and superior to the [place] drains which may represent an undrained abscess. There is no abscess in the lateral portion of the buttock. Exam Skin: Other: Moderate induration with some erythema over the medial 1/2 of the right buttock. [place] drain still in place. There is some brownish drainage from the incision. Objective Data Vital Signs Vital Signs: Vital Signs - 24 hr 03/19/23 14:00 03/19/23 21:30 03/19/23 20:00 Temperature 37.1 C 36.6 C Pulse Rate 85 84 Respiratory Rate 18 14 Blood Pressure 146/74 H 156/78 H Pulse Oximetry 95 95 Oxygen Delivery Room Air 03/20/23 06:06 Temperature 36.4 C Pulse Rate 73 Respiratory Rate 16 Blood Pressure 132/59 L Pulse Oximetry 94 Oxygen Delivery Intake/Output Intake/Output: Intake & Output 03/17/23 03/18/23 03/19/23 03/20/23 23:59 23:59 23:59 23:59 Intake Total 2280 1610 1540 1160 Output Total 375 Balance 2280 1610 1540 785 Meds/Results Medications: Active Medications Generic Name Dose Route Start Last Admin Trade Name Freq PRN Reason Stop Dose Admin Acetaminophen 1,000 mg 03/16/23 09:36 Acetaminophen 500 Mg Tablet PO Q6H PRN Mild Pain (1-3) or Fever Al Hydrox/Mg Hydrox/Simethicone 30 ml 03/18/23 09:25 Mag Hydrox/Al Hydrox/Simeth 30 Ml Udc PO Q6H PRN Indigestion Famotidine 20 mg 03/18/23 09:25 03/20/23 08:49 Famotidine 20 Mg Tablet PO 20 mg Q12HR AUGUST Administration Hydromorphone HCl 1 mg 03/17/23 13:06 03/20/23 09:03 Hydromorphone Hcl Inj (*Crx) 1 Mg/Ml Syr IV PUSH 1 mg Q3H PRN Administration Pain Rated 7-10 Piperacillin/Tazobactam/Dextrose 3.375 gm in 50 mls @ 100 mls/hr 03/16/23 09:00 03/20/23 09:17 Zosyn 3.375 Gm/Ns 50 Ml IVPB Infused Q6H AUGUST Infusion Metronidazole 500 mg in 100 mls @ 100 mls/hr 03/19/23 12:45 03/20/23 12:34 Flagyl 500 Mg/Iso Soln 100 Ml IVPB Infused Q6HR AUGUST Infusion Ondansetron HCl 4 mg 03/16/23 05:41 Ondansetron Inj 4 Mg/2 Ml Vial IV PUSH Q4H PRN Nausea Ondansetron HCl 4 mg 03/16/23 08:20 Ondansetron Inj 4 Mg/2 Ml Vial IV PUSH ONCE PRN Nausea Oxycodone HCl 7.5 mg 03/17/23 13:06 03/20/23 12:20 Oxycodone Hcl (*Crx) 2.5 Mg Tab Ir PO 7.5 mg Q6H PRN Administration Pain Rated 7-10 Radiology Results: ITS Impressions Abdomen/Pelvis CT 03/19/23 14:19 IMPRESSION: 1. Decrease in size post incision and drainage of a now 3.5 x 0.5 x 1.6 cm superficial right perianal abscess. . Surgical drains extend through the subcutaneous fat slightly superficial to the residual abscess cavity. 2. A couple indeterminate more nodular appearing soft tissue densities abutting the posterior rectum located cephalad to the levator ani muscle and without surrounding inflammatory stranding. These could represent additional small abscesses however more rosalind
[2023-03-20 14:00] VITALS: BP 149/72; PULSE 80; RESP 18; TEMP 36.8; O2SAT 96
[2023-03-20] MEDS: NICOTINE (*PBKC) 21 MG PATCH 1 PATCH TRANSDERM (15:08)
[2023-03-20 20:42] VITALS: BP 158/75; PULSE 85; RESP 16; TEMP 36.7; O2SAT 96
[2023-03-21] VITALS (14 sets, daily range): BP systolic 93–155; BP diastolic 55–80; PULSE 76–98; RESP 12–20; TEMP 35.5–37.3; O2SAT 90–97
[2023-03-21] MEDS: HYDROmorphone HCL INJ (*CRX) 1 MG/ML SYR IV PUSH ×8 (00:33→21:48)
[2023-03-21] MEDS: metroNIDAZOLE 500 MG/ISO 100ML 500 MG/100 ML BAG 100 MG IVPB ×4 (00:35→18:04)
[2023-03-21] MEDS: PIPERACILLN/TAZ 3.375GM/NS50ML 3.375 GM/50 ML BAG IVPB ×4 (03:28→21:48)
[2023-03-21 05:43] LABS: Basophils Absolute Auto 0.1 K/mm3 (0.0-0.1); Basophils Percent Auto 0.6 % (0.2-1.2); Eosinophils Absolute Auto 0.3 K/mm3 (0-0.3); Eosinophils Percent Auto 2.6 % (0-4.4); Hematocrit 45.5 % (42.0-52.0); Hemoglobin 15.1 g/dL (14.0-18.0); Immature Granulocyte Absolute 0.21 K/mm3 (0.00-0.031); Immature Granulocyte Percent A 1.6 % (0-0.5); Lymphocytes Absolute Auto 2.82 K/mm3 (0.9-3.2); Mean Corpuscular HGB Conc 33.2 g/dl (32-36); Mean Corpuscular Hemoglobin 32.4 pg (26-34); Mean Corpuscular Volume 97.6 fl (80-100); Mean Platelet Volume 10.4 fl (7.4-10.4); Monocytes Absolute Auto 1.3 K/mm3 (0.1-0.6); Neutrophils Absolute Auto 8.1 K/mm3 (1.3-6.7); Neutrophils Percent Auto 63.2 % (45.5-73.1); Platelet Count Result 276 k/mm3 (150-375); Red Blood Count 4.66 M/mm3 (4.6-6.20); Red Cell Distribution Width 12.4 % (11.5-14.5); White Blood Count 12.8 K/mm3 (4.5-10.0)
[2023-03-21 05:58] LABS: Anion Gap 7 mmol/L (8-16); Blood Urea Nitrogen 14 mg/dL (9-20); Calcium 8.3 mg/dL (8.4-10.2); Carbon Dioxide 32 mmol/L (22-30); Chloride 99 mmol/L (98-107); Estimated CRCL calculation 116 ml/min; Estimated Glomerular Filt Rate > 60; Glucose 125 mg/dL (65-110); Potassium 4.2 mmol/L (3.4-5.0); Sodium 138 mmol/L (137-145)
--- NOTE | 2023-03-21 09:18 | WPDANESEPPF ---
Anes - Initial Pre Proc Eval Procedure: Operation Date: 03/16/23 08:00 Proposed Procedures p I&D Indu-Rectal Abscess - Zachary Schmidt MD Operation Date: 03/21/23 10:00 Proposed Procedures p Exploration of Indu-Rectal Wound - Zachary Schmidt MD Date/Time: 03/21/23 09:18 Surgeon: Zachary Schmidt MD Pre Op Diagnosis: Perianal Abscess Patient Data Age: 57 Gender: M Height: 1.8 m Weight: 119.1 kg Last Vital Signs Temp 97.8 F 03/21/23 06:00 Pulse 98 03/21/23 06:00 Resp 16 03/21/23 06:00 BP 141/77 H 03/21/23 06:00 Pulse Ox 96 03/21/23 06:00 O2 Del Method Room Air 03/20/23 20:30 O2 Flow Rate 18 03/16/23 10:40 Allergies Allergy/AdvReac Type Severity Reaction Status Date / Time azithromycin Allergy Hives Verified 03/16/23 00:43 Home Medications Medication Instructions Recorded Confirmed Type No Home Medications 03/16/23 03/16/23 History Laboratory Tests 03/20/23 03/21/23 10:15 05:33 WBC 13.6 H K/mm3 12.8 H K/mm3 (4.5-10.0) (4.5-10.0) RBC 4.75 M/mm3 4.66 M/mm3 (4.6-6.20) (4.6-6.20) Hgb 15.7 g/dL 15.1 g/dL (14.0-18.0) (14.0-18.0) Hct 46.4 % 45.5 % (42.0-52.0) (42.0-52.0) MCV 97.7 fl 97.6 fl (80-100) (80-100) MCH 33.1 pg 32.4 pg (26-34) (26-34) MCHC 33.8 g/dl 33.2 g/dl (32-36) (32-36) RDW 12.4 % 12.4 % (11.5-14.5) (11.5-14.5) Plt Count 266 k/mm3 276 k/mm3 (150-375) (150-375) MPV 10.4 fl 10.4 fl (7.4-10.4) (7.4-10.4) Immature Gran % (Auto) 1.6 H % 1.6 H % (0-0.5) (0-0.5) Neut % (Auto) 69.6 % 63.2 % (45.5-73.1) (45.5-73.1) Lymph % (Auto) 17.5 L % 22.0 % (18.3-44.2) (18.3-44.2) [place] % (Auto) 8.0 % 10.0 H % (2.6-8.5) (2.6-8.5) Eos % (Auto) 2.7 % 2.6 % (0-4.4) (0-4.4) Baso % (Auto) 0.6 % 0.6 % (0.2-1.2) (0.2-1.2) Lymph # (Auto) 2.37 K/mm3 2.82 K/mm3 (0.9-3.2) (0.9-3.2) [place] # (Auto) 1.1 H K/mm3 1.3 H K/mm3 (0.1-0.6) (0.1-0.6) Eos # (Auto) 0.4 H K/mm3 0.3 K/mm3 (0-0.3) (0-0.3) Baso # (Auto) 0.1 K/mm3 0.1 K/mm3 (0.0-0.1) (0.0-0.1) Abs Immat Gran (auto) 0.22 H K/mm3 0.21 H K/mm3 (0.00-0.031) (0.00-0.031) Absolute Neuts (auto) 9.4 H K/mm3 8.1 H K/mm3 (1.3-6.7) (1.3-6.7) Absolute Nucleated RBC 0.0 K/mm3 0.0 K/mm3 (0.0-0.012) (0.0-0.012) Nucleated RBC % 0.0 % 0.0 % (0.0-0.2) (0.0-0.2) Sodium 138 mmol/L (137-145) Potassium 4.2 mmol/L (3.4-5.0) Chloride 99 mmol/L (98-107) Carbon Dioxide 32 H mmol/L (22-30) Anion Gap 7 L mmol/L (8-16) BUN 14 mg/dL (9-20) Creatinine 0.80 mg/dL (0.7-1.3) Estim Creat Clear Calc 116 ml/min Estimated GFR > 60 (59 - ) Glucose 125 H mg/dL (65-110) Calcium 8.3 L mg/dL (8.4-10.2) Patient hx anesthesia problems: none Family hx anesthesia problems: none Results Review: All pre-operative results and documents have been reviewed as part of the pre-operative evaluation. [facility] Social History Social History Smoking packs per day: 20 Smoking cigarettes per day: 400.0 Smoking status: Current every day smoker Tobacco type: cigarettes Alcohol intake: current Drinks per week: 1 Substance use: never Substance use type: does not use Lack of Transportation: No Lack of Food: Never True Current Housing: I Have Housing Concerned About Future Housing: No Difficulty Paying Gas/Electric Bills: No Difficulty Paying for Meds: No Currently Unemployed: No Education: Bachelor's Degree Difficulty w/ Childcare or Family Care: No Spiritual care concerns: No Anes - Eval Final PreProcedure Day of Procedure 03/21/23 09:18 Patient weight: normal Heart: regular rate and rhythm Lungs: clear to auscultation Airway: Mallampati scale class II Neurological: alert and oriented Last or
--- NOTE | 2023-03-21 09:27 | WPDHPUPDATE1 ---
History and Physical Update Update Date/Time: 03/21/23 09:27 History and Physical has been reviewed, including an updated exam of the patient. There are NO changes in the patient's condition. Risks, benefits, and alternatives have been discussed and questions answered. Patient agrees to proceed with procedure.
[2023-03-21] MEDS: LACTATED RINGERS 1,000 ML 30 ML IV CONT (09:29)
[2023-03-21] MEDS: BUPivacaine HCL 0.5% PF 30 ML VIAL INFILTRATE (09:45)
[2023-03-21] MEDS: LIDO 1%/EPINEPHRINE 1:100,000 50 ML VIAL 20 ML INFILTRATE (10:22)
--- NOTE | 2023-03-21 10:43 | P.OP_ITS ---
Procedure Note - Detailed Date of Procedure 03/21/23 Pre-op Diagnosis Supralevator perirectal abscess Post-op Diagnosis Same Procedure Performed Exploration of perirectal abscess wound and drainage of supralevator perirectal abscess Surgeon Zachary Schmidt MD Anesthesia General Indications Patient is a 57-year-old white male who 5 days ago underwent an emergent incision and drainage of a perirectal abscess. He had [place] drains placed in 2 counter incisions and the abscess cavity was packed. Packing was removed the next day. His initial white blood count which was 25,000 slowly decreased and 15,000 over to 2 days. Cultures grew out Streptococcus species as and Bacteroides. He was switched to Zosyn and Flagyl. He continued to have significant induration of the medial right buttock region and a repeat CT scan abdomen pelvis showed a 3cm fluid collection deep to the posterior [place] drain in the supralevator space. Given that the patient was still having significant drainage and induration of the buttock region and slowly decreasing white blood cell count he is being brought to the operating room again for exploration of wound and drainage of supralevator fluid collection. Findings Super later fluid collection in the right posterior lateral side under proximally 7 8:00 a.m. with the patient lithotomy position. No additional abscess cavities noted. Description of Procedure After informed consent was obtained patient brought to the operating room placed in the lithotomy position on the table in high stirrups. General endotracheal anesthesia was then administered. The perianal and perineal region were then prepped and draped in usual sterile fashion. Time-out was then performed correctly identifying the patient as well as procedure to be performed. He was already on scheduled IV antibiotics. I 1st started by cutting away the [place] drains and removed those. I then digitally explored the abscess cavity and posteriorly there was a tract extending into the supralevator space on the right side. Some cloudy fluid was drained from this area. Laterally in the midportion of buttocks there was quite a bit induration I tried to dissect out the area make sure was not a abscess tract in that region. No large abscess was seen in this area. I then made a counter incision on the midportion of the right buttock region with a scalpel. I then irrigated the abscess cavity thro ugh all the counter incisions and through the main abscess incision. I then replaced 3 quarter-inch [place] drains through the abscess cavity in all 3 counter incisions. The drains were placed a loop configuration and secured with some 3-0 nylon sutures. I then packed the abscess cavity and extended the packing up to the supralevator space. Five yd of half-inch packing was used. The area was then cleaned and then fluffed 4x4 gauze the pads and disposable underwear shoes for final dressing. The patient tolerated the procedure well no complications. All sponges, needles, and instrument counts were correct at the end procedure. EBL was _ 25 __cc. The patient was awakened and taken to recovery in stable and satisfactory condition. Implants None Estimated Blood Loss 25 Urine Output 300 Drains Yes ([place] drains x3) Packing Yes Pathology None sent Complications No immediate complications Condition Stable Disposition PACU [facility] Billing Surgery - Charge Forward: Surgery Billing
[2023-03-21] MEDS: fentaNYL CITRATE INJ (*CRX) 100 MCG/2 ML VIAL 25 MCG IV PUSH ×6 (11:25→11:40)
[2023-03-21] MEDS: NICOTINE (*PBKC) 21 MG PATCH 1 PATCH TRANSDERM (12:00)
[2023-03-21] MEDS: FAMOTIDINE 20 MG TABLET PO ×2 (12:00→21:49)
[2023-03-22] MEDS: metroNIDAZOLE 500 MG/ISO 100ML 500 MG/100 ML BAG 100 MG IVPB ×3 (00:25→12:45)
[2023-03-22] MEDS: HYDROmorphone HCL INJ (*CRX) 1 MG/ML SYR IV PUSH ×7 (01:30→23:21)
[2023-03-22] MEDS: PIPERACILLN/TAZ 3.375GM/NS50ML 3.375 GM/50 ML BAG IVPB ×2 (03:23→08:27)
[2023-03-22 06:00] VITALS: BP 126/64; PULSE 67; RESP 18; TEMP 36.8; O2SAT 95
[2023-03-22 06:27] LABS: Basophils Absolute Auto 0.1 K/mm3 (0.0-0.1); Basophils Percent Auto 0.3 % (0.2-1.2); Eosinophils Absolute Auto 0.2 K/mm3 (0-0.3); Eosinophils Percent Auto 1.3 % (0-4.4); Hematocrit 45.4 % (42.0-52.0); Immature Granulocyte Absolute 0.25 K/mm3 (0.00-0.031); Immature Granulocyte Percent A 1.5 % (0-0.5); Lymphocytes Absolute Auto 2.46 K/mm3 (0.9-3.2); Lymphocytes Percent Auto 15.1 % (18.3-44.2); Mean Corpuscular Hemoglobin 32.3 pg (26-34); Mean Corpuscular Volume 97.8 fl (80-100); Mean Platelet Volume 10.8 fl (7.4-10.4); Monocytes Absolute Auto 1.5 K/mm3 (0.1-0.6); Monocytes Percent Auto 9.3 % (2.6-8.5); Neutrophils Absolute Auto 11.8 K/mm3 (1.3-6.7); Neutrophils Percent Auto 72.5 % (45.5-73.1); Platelet Count Result 320 k/mm3 (150-375); Red Blood Count 4.64 M/mm3 (4.6-6.20); Red Cell Distribution Width 12.1 % (11.5-14.5); White Blood Count 16.3 K/mm3 (4.5-10.0)
[2023-03-22 06:38] LABS: Anion Gap 6 mmol/L (8-16); Blood Urea Nitrogen 14 mg/dL (9-20); Carbon Dioxide 31 mmol/L (22-30); Chloride 98 mmol/L (98-107); Estimated CRCL calculation 132 ml/min; Estimated Glomerular Filt Rate > 60; Glucose 160 mg/dL (65-110); Potassium 3.8 mmol/L (3.4-5.0); Sodium 135 mmol/L (137-145)
[2023-03-22 07:55] LABS: Hemoglobin A1C 6.7 % (<5.7)
[2023-03-22] MEDS: FAMOTIDINE 20 MG TABLET PO ×2 (08:26→21:11)
[2023-03-22] MEDS: NICOTINE (*PBKC) 21 MG PATCH 1 PATCH TRANSDERM (08:27)
--- NOTE | 2023-03-22 13:12 | PC.NURSE ---
Spoke to pharmacist Raven regarding discontinued flagyl. Flagyl was discontinued after administration. Clarifying if needed to stop infusion or to continue. Per pharmacist, infusion ok to continue.
--- NOTE | 2023-03-22 13:19 | PM.PNGS ---
Progress Note: A&P Assessment and Plan (1) Indu-rectal abscess: Code(s): K61.1 - Rectal abscess Status: Acute Assessment and Plan: Perirectal abscess wound was re-explored yesterday with additional drainage of a supralevator some small fluid collection. Additional [place] drain was placed. IV antibiotics have been changed from Zosyn and Flagyl to meropenem today. We will see how he responds to the new antibiotic. She will need to continue in the hospital for IV antibiotics for now at least until the cellulitis improves. We very difficult to change the packing due to the super levator component of the abscess without taking back to the operating for another anesthetic. For now we will leave the packing out and hopefully it drained well enough to not need packing with the [place] drains in place. (2) Elevated hemoglobin A1c: Code(s): R73.09 - Other abnormal glucose Status: Acute Assessment and Plan: Hemoglobin A1c was 6.7. I think the patient is either an undiagnosed diabetic or prediabetic. We will go ahead and consult the hospitalist to evaluate the patient for initiation of oral hypoglycemics or even perhaps low-dose insulin if indicated. Subjective Subjective Date/Time Seen: 03/22/23 13:19 Interval history: Patient is postop day 6 after initial incision and drainage of a perirectal abscess and postop day 1 after re-exploration of the abscess cavity and further drainage. His pain is being adequately controlled with combination of oral narcotics and breakthrough IV narcotics. He had a bowel movement today and all the packing was removed. Is showering to keep the area clean. White blood cell count increased to 16,000 a day but on surprising due to the procedure done yesterday. Exam Skin: Other: Stable redness and induration over the right midportion medial buttock region. Drainage now is serous and blood tinged. Neal drains x3 in place. No fluctuance palpated. Objective Data Vital Signs Vital Signs: Vital Signs - 24 hr 03/21/23 14:00 03/21/23 18:19 03/21/23 21:37 Temperature 35.5 C L 35.9 C L 37.1 C Pulse Rate 83 87 87 Respiratory Rate 18 18 18 Blood Pressure 141/64 H 155/64 H 136/55 L Pulse Oximetry 97 95 95 Oxygen Delivery 03/21/23 21:25 03/22/23 06:00 03/22/23 08:21 Temperature 36.8 C Pulse Rate 67 Respiratory Rate 18 Blood Pressure 126/64 Pulse Oximetry 95 Oxygen Delivery Room Air Room Air Intake/Output Intake/Output: Intake & Output 03/19/23 03/20/23 03/21/23 03/22/23 23:59 23:59 23:59 23:59 Intake Total 1540 1870 2340 520 Output Total 375 2250 1300 Balance 1540 1495 90 -780 Meds/Results Medications: Active Medications Generic Name Dose Route Start Last Admin Trade Name Freq PRN Reason Stop Dose Admin Acetaminophen 1,000 mg 03/16/23 09:36 Acetaminophen 500 Mg Tablet PO Q6H PRN Mild Pain (1-3) or Fever Al Hydrox/Mg Hydrox/Simethicone 30 ml 03/18/23 09:25 Mag Hydrox/Al Hydrox/Simeth 30 Ml Udc PO Q6H PRN Indigestion Famotidine 20 mg 03/18/23 09:25 03/22/23 08:26 Famotidine 20 Mg Tablet PO 20 mg Q12HR AUGUST Administration Fentanyl Citrate 25 mcg 03/21/23 09:19 03/21/23 11:40 Fentanyl Citrate Inj (*Crx) 100 Mcg/2 Ml Vial IV PUSH 25 mcg Q2M PRN Administration Pain Hydromorphone HCl 1 mg 03/21/23 13:31 03/22/23 11:27 Hydromorphone Hcl Inj (*Crx) 1 Mg/Ml Syr IV PUSH 1 mg Q2HR PRN Administration Pain Rated 7-10 Lactated Ringer's 1,000 mls @ 30 mls/hr 03/21/23 09:20 03/21/23 11:44 Lr - Lactated Ringers Iv IV CONT Infused .Q24H AUGUST Infusion Lactated Ringer's 1,000 mls @ 30 mls/hr 03/21/23 09:20 Lr - Lactated Ringers Iv IV CONT .Q24H AUGUST Meropenem 1 gm/ Sodium 100 mls @ 200 mls/hr 03/22/23 14:00 Chloride IVPB Q8HR AUGUST Nicotine 1 patch 03/20/23 14:35 03/22/23 08:27 Nicotine (*Pbkc) 21 Mg Patch TRANSDERM 1 patc
[2023-03-22 14:00] VITALS: BP 141/71; PULSE 90; RESP 18; TEMP 36.7; O2SAT 93
[2023-03-22] MEDS: MEROPENEM 1 GM in SODIUM CHLORIDE 0.9% IV 100 ML 200 ML IVPB (14:39)
[2023-03-22] MEDS: ACETAMINOPHEN 500 MG TABLET 1000 MG PO ×2 (14:39→21:11)
--- NOTE | 2023-03-22 17:47 | PM.IMCN ---
Assessment and Plan Assessment and plan (1) Indu-rectal abscess: Code(s): K61.1 - Rectal abscess Status: Acute Assessment and Plan: Postop care per surgical team. Analgesics per surgical team. Antibiotics per surgical team (2) DM2 (diabetes mellitus, type 2): Code(s): E11.9 - Type 2 diabetes mellitus without complications Status: Acute Assessment and Plan: Patient's A1c was only 6.7. I gave the patient an option of diet and exercise and being on a diabetic diet versus medication. The patient opted to start on metformin. I discussed options with pharmacy and pharmacy stated that if we started the patient on metformin extended release the patient only has a 10% chance of developing diarrhea. It was also recommended that we start Imodium in the event that the patient would start to have diarrhea. early childhood educator aide has been consulted as well as the dietitian. If these insular department were not available with the weekend the patient may feel free to make an appointment with them after discharge to be evaluated. The patient will need a prescription for glucose monitor when discharged. The patient is also on a sliding scale insulin. I explained to the patient that wound healing may be delayed if his blood sugars remain elevated. However he has been under lot of stress which may also be elevating his blood sugars. Therefore he came to final decision of starting medications versus just diet and exercise. Plan Thank you for allowing the hospitalist team to consult on this patient. HPI Data of Consult Consult date: 03/22/23 Requesting Physician: Zachary Schmidt MD Primary Care Provider: DIRECTOR OF INCOME TAX PHYSICIAN Consult Narrative Narrative: Trenton Crockett is a 57 year old male who came to the emergency department on 03/16/2023 with complaints of right gluteal pain. The patient tells me that he has had previous abscesses in the past. 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 The patient initially thought that he had hemorrhoid that became red and swollen. The patient went to [facility] that morning and received oral antibiotics they did not do any imaging and sent him home. The patient stated since then his right gluteal area became more firm and more tender. The patient was admitted by surgery. On 03/16/2023 the patient was taken for complex incision and drainage of the perirectal abscess. The patient was taken back to surgery on 03/21/2023 for exploration of perirectal abscess wound and drainage of supralevator perirectal abscess. The patient was noted to have drains now. Patient has had slow wound healing. His white count today came up to 16.3. His blood sugars have been anywhere from 125-160. A1c was performed and it was found to be 6.7. The patient stated that he has symptoms of polydipsia and polyuria at times. The hospitalist group was consulted for management of new onset of diabetes. Date of consultation 03/22/2023. Review of Systems Review of Systems: All systems reviewed & are unremarkable except as noted in HPI and below Constitutional: Constitutional: Reports as per HPI and Reports no additional constitutional complaints Eyes: Eyes: Reports as per HPI and Reports no additional eye complaints ENT: Reports system reviewed and no additional complaints, except as documented and Reports Normal hearing present Cardiovascular: Cardiovascular: Reports no additional cardiovascular complaints Respiratory: Respiratory: Reports no additional respiratory complaints and Reports no additional respiratory complaints Gastrointestinal: Gastrointestinal: Reports as per HPI and Reports no additional gastrointestinal complaints Musculoskeletal: Musculoskeletal: Reports no additional musculoskeletal complaints Integumentary/Breasts: Skin/Breast: Reports system reviewed and no additional complaints, except as docu and Reports as per HPI Neurologic: Re
[2023-03-22 20:00] VITALS: PULSE 90; RESP 18; O2SAT 93
[2023-03-22] MEDS: oxyCODONE HCL (*CRX) 5 MG TAB IR 10 MG PO (21:11)
[2023-03-22] MEDS: MEROPENEM 1 GM in SODIUM CHLORIDE 0.9% IV 100 ML IVPB (21:13)
[2023-03-22 21:21] VITALS: BP 151/59; PULSE 74; RESP 18; TEMP 36.1; O2SAT 93
[2023-03-23] MEDS: MEROPENEM 1 GM in SODIUM CHLORIDE 0.9% IV 100 ML IVPB (05:30)
[2023-03-23] MEDS: ACETAMINOPHEN 500 MG TABLET 1000 MG PO ×3 (05:31→20:52)
[2023-03-23 06:00] VITALS: BP 151/89; PULSE 70; RESP 18; TEMP 35.9; O2SAT 98
[2023-03-23 06:01] LABS: Basophils Absolute Auto 0.1 K/mm3 (0.0-0.1); Basophils Percent Auto 0.6 % (0.2-1.2); Eosinophils Absolute Auto 0.3 K/mm3 (0-0.3); Eosinophils Percent Auto 3.3 % (0-4.4); Hematocrit 46.1 % (42.0-52.0); Hemoglobin 14.9 g/dL (14.0-18.0); Immature Granulocyte Absolute 0.11 K/mm3 (0.00-0.031); Immature Granulocyte Percent A 1.1 % (0-0.5); Lymphocytes Absolute Auto 3.88 K/mm3 (0.9-3.2); Lymphocytes Percent Auto 37.4 % (18.3-44.2); Mean Corpuscular HGB Conc 32.3 g/dl (32-36); Mean Corpuscular Hemoglobin 31.9 pg (26-34); Mean Corpuscular Volume 98.7 fl (80-100); Mean Platelet Volume 10.5 fl (7.4-10.4); Monocytes Absolute Auto 1.1 K/mm3 (0.1-0.6); Monocytes Percent Auto 10.3 % (2.6-8.5); Neutrophils Absolute Auto 4.9 K/mm3 (1.3-6.7); Neutrophils Percent Auto 47.3 % (45.5-73.1); Platelet Count Result 298 k/mm3 (150-375); Red Blood Count 4.67 M/mm3 (4.6-6.20); Red Cell Distribution Width 12.4 % (11.5-14.5); White Blood Count 10.4 K/mm3 (4.5-10.0)
[2023-03-23 08:26] LABS: Glucose Point of Care 137 mg/dl (65-105)
[2023-03-23] MEDS: glipiZIDE XL 5 MG TABCR PO (08:35)
[2023-03-23] MEDS: oxyCODONE HCL (*CRX) 5 MG TAB IR 10 MG PO (08:36)
[2023-03-23] MEDS: DOCUSATE SODIUM 100 MG CAPSULE PO (08:36)
[2023-03-23] MEDS: FAMOTIDINE 20 MG TABLET PO ×2 (08:36→20:49)
[2023-03-23] MEDS: NICOTINE (*PBKC) 21 MG PATCH 1 PATCH TRANSDERM (08:37)
--- NOTE | 2023-03-23 09:57 | PM.PNGS ---
Progress Note: A&P Assessment and Plan (1) Indu-rectal abscess: Code(s): K61.1 - Rectal abscess Status: Acute Assessment and Plan: cont local wound care, induration improved, WBC down to 10k, cont abx (2) DM2 (diabetes mellitus, type 2): Code(s): E11.9 - Type 2 diabetes mellitus without complications Status: Acute Assessment and Plan: appreciate medical input and mgmt Subjective Subjective Date/Time Seen: 03/23/23 09:57 Interval history: feeling much better, sore but pain overall improved Review of Systems Review of Systems: All systems reviewed & are unremarkable except as noted in HPI and below Exam Const: General: cooperative, comfortable and no acute distress Resp: Auscultation: clear to auscultation bilaterally Cardio: Rate: regular rate Rhythm: regular rhythm GI: Inspection: normal to inspection Other: perirectal abscess - mod s/s drainage from tammie drains x 3 Objective Data Vital Signs Vital Signs: Vital Signs - 24 hr 03/22/23 14:00 03/22/23 20:00 03/22/23 21:21 Temperature 36.7 C 36.1 C L Pulse Rate 90 90 74 Respiratory Rate 18 18 18 Blood Pressure 141/71 H 151/59 H Pulse Oximetry 93 93 93 Oxygen Delivery Room Air 03/23/23 06:00 Temperature 35.9 C L Pulse Rate 70 Respiratory Rate 18 Blood Pressure 151/89 H Pulse Oximetry 98 Oxygen Delivery Intake/Output Intake/Output: Intake & Output 03/20/23 03/21/23 03/22/23 03/23/23 23:59 23:59 23:59 23:59 Intake Total 1870 2340 1810 620 Output Total 375 2250 1300 400 Balance 1495 90 510 220 Meds/Results Medications: Active Medications Generic Name Dose Route Start Last Admin Trade Name Freq PRN Reason Stop Dose Admin Acetaminophen 1,000 mg 03/22/23 14:00 03/23/23 05:31 Acetaminophen 500 Mg Tablet PO 1,000 mg Q8HR AUGUST Administration Al Hydrox/Mg Hydrox/Simethicone 30 ml 03/18/23 09:25 Mag Hydrox/Al Hydrox/Simeth 30 Ml Udc PO Q6H PRN Indigestion Albuterol 2 puff 03/22/23 23:29 Albuterol Sulfate (*Sp) Aerosol 1 Puff INHALATION Q6HRT PRN Shortness Of Breath Dextrose 12.5 gm 03/22/23 23:15 Dextrose 50% 25 Gm/50 Ml Syringe IV PUSH PRN PRN Hypoglycemia Protocol Docusate Sodium 100 mg 03/23/23 09:00 03/23/23 08:36 Docusate Sodium 100 Mg Capsule PO 100 mg DAILY AUGUST Administration Famotidine 20 mg 03/18/23 09:25 03/23/23 08:36 Famotidine 20 Mg Tablet PO 20 mg Q12HR AUGUST Administration Fentanyl Citrate 25 mcg 03/21/23 09:19 03/21/23 11:40 Fentanyl Citrate Inj (*Crx) 100 Mcg/2 Ml Vial IV PUSH 25 mcg Q2M PRN Administration Pain Glipizide 5 mg 03/23/23 08:00 03/23/23 08:35 Glipizide Xl 5 Mg Tabcr PO 5 mg DAILY@0800 AUGUST Administration Glucagon 1 mg 03/22/23 23:15 Glucagon For Inj 1 Mg Vial IM PRN PRN Hypoglycemia Protocol Glucose 15 gm 03/22/23 23:15 Glucose Oral Gel 15 Gm Of Glucse In 37.5 Gm Tube PO PRN PRN Hypoglycemia Protocol Hydromorphone HCl 1 mg 03/21/23 13:31 03/22/23 23:21 Hydromorphone Hcl Inj (*Crx) 1 Mg/Ml Syr IV PUSH 1 mg Q2HR PRN Administration Pain Rated 7-10 Meropenem 1 gm/ Sodium 100 mls @ 200 mls/hr 03/22/23 14:00 03/23/23 05:30 Chloride IVPB 100 mls/hr Q8HR AUGUST Administration Dextrose 1,000 mls @ 100 mls/hr 03/22/23 23:15 Dextrose 5% 1,000 Ml IVPB PRN PRN Hypoglycemia Protocol Insulin Aspart 2 - 5 units 03/23/23 08:00 03/23/23 08:27 Insulin Aspart (*Bkc) 100 Units/Ml SUB-Q Not Given TIDWM [facility] Protocol Insulin Aspart 1 - 2 units 03/23/23 21:00 Insulin Aspart (*Bkc) 100 Units/Ml SUB-Q HS [facility] Protocol Loperamide HCl 2 mg 03/22/23 23:16 Loperamide Hcl 2 Mg Capsule PO PRN PRN Diarrhea Nicotine 1 patch 03/20/23 14:35 03/23/23 08:37 Nicotine (*Romie) 21 Mg Patch TRANSDERM 1 patch QAM AUGUST Administr
[2023-03-23 12:11] LABS: Glucose Point of Care 156 mg/dl (65-105)
[2023-03-23] MEDS: HYDROmorphone HCL INJ (*CRX) 1 MG/ML SYR IV PUSH ×2 (12:52→20:59)
[2023-03-23 14:00] VITALS: BP 149/66; PULSE 74; RESP 18; TEMP 36.1; O2SAT 95
[2023-03-23] MEDS: MEROPENEM 1 GM in SODIUM CHLORIDE 0.9% IV 100 ML 200 ML IVPB ×2 (14:00→22:05)
[2023-03-23 17:25] LABS: Glucose Point of Care 147 mg/dl (65-105)
[2023-03-23 22:00] VITALS: BP 163/72; PULSE 73; RESP 18; TEMP 36.4; O2SAT 96
[2023-03-23 22:09] LABS: Glucose Point of Care 132 mg/dl (65-105)
[2023-03-24] MEDS: HYDROmorphone HCL INJ (*CRX) 1 MG/ML SYR IV PUSH ×6 (00:14→21:08)
[2023-03-24 05:59] VITALS: BP 163/73; PULSE 71; RESP 18; TEMP 36.4; O2SAT 94
[2023-03-24] MEDS: ACETAMINOPHEN 500 MG TABLET 1000 MG PO ×3 (06:09→21:08)
[2023-03-24] MEDS: MEROPENEM 1 GM in SODIUM CHLORIDE 0.9% IV 100 ML 200 ML IVPB ×3 (06:10→21:08)
--- NOTE | 2023-03-24 07:48 | PM.DS ---
DS: Admitting Diagnosis Discharge Date 03/24/23 Admitting Diagnosis Perirectal abscess DS: Discharge Diagnosis Discharge Diagnosis (1) Indu-rectal abscess: Code(s): K61.1 - Rectal abscess Status: Acute Assessment and Plan: Status post incision and drainage x2, continue local wound care, continue drain care, home with p.o. antibiotics, follow-up with Dr. Schmidt this week (2) DM2 (diabetes mellitus, type 2): Code(s): E11.9 - Type 2 diabetes mellitus without complications Status: Acute Assessment and Plan: Appreciate hospitalist consultation, will need close follow-up with PCP DS: Summary Hospital Course Reason for hospitalization: Perirectal abscess Hospital Course: The patient is a 57-year-old male that presented to the emergency department complaining of severe perirectal pain and inflammation. Upon evaluation, it was noted the patient had a large perirectal abscess. The patient was taken to the operating room emergently for complex incision and drainage, please see full operative report for details of the procedure. Postoperatively, the patient was transferred to the surgical floor and started on IV antibiotics. Over the next few days, the patient continued to have severe pain and inflammation in the area. The patient continued to have an elevated white count. Given these findings, the patient was taken back to the operating room and further drainage of the super levator abscess was performed, please see full operative report for details. The patient also had his antibiotics changed to meropenem secondary to culture results. After the 2nd surgery, the patient did much better and is inflammation and pain was much improved. The patient's leukocytosis also resolved. At this time, the patient will be discharged home with instructions for local wound care and p.o. Flagyl. He will follow up with Dr. Schmidt this week. Status at Discharge Functional status at discharge: independent ambulation Overall status at discharge: patient is progressing back to baseline Time Spent with Patient Time attestation: Total time spent providing and/or coordinating discharge services: Time spent: Less than 30 minutes Exam Const: General: cooperative, comfortable and no acute distress Resp: Auscultation: clear to auscultation bilaterally Cardio: Rate: regular rate Rhythm: regular rhythm GI: Inspection: normal to inspection Skin: Other: tammie drains x 4 c mod s/s drainage, decreased induration DS: Data Data Completed and Pending Labs on day of discharge: Labs from last 24 hours 03/23/23 03/23/23 03/23/23 20:48 17:20 12:01 POC Capillary Glucose 132 H 147 H 156 H 03/23/23 08:18 POC Capillary Glucose 137 H Discharge Plan Discharge Attending physician on discharge: Zachary Schmidt Consulting providers: Jean Marie King; Zachary Schmidt Discharging Clinician: Mery Barnes Anticipated Discharge Date/Time: 03/24/23 09:00 Patient Disposition: Home, Self-Care Activity: may shower Diet: as tolerated Wound Care Instructions: keep dressing dry, remove dressing to shower and change dressing daily Discharge Instructions: ok to shower over drains place dressing (ABD pad) over drains after showering Patient Instructions: Antibiotic Form, How to Stop Smoking (DC) Stand Alone Forms: General Discharge Information Follow-up/Referrals: Zachary Schmidt MD [Physician] - 1 Week Discharge Medications: New hydrocodone-acetaminophen 10-325 mg tablet 1 tablet PO Q6H PRN (Reason: pain) Qty: 20 0RF metronidazole 500 mg tablet 500 mg PO Q12H Qty: 20 0RF Date of admission: 03/17/23 14:10 Primary Care Provider: PHYSICIAN,EYEGLASS LENS GENERATOR Admitting Provider: Zachary Schmidt Attending physician on admission: Zachary Schmidt Condition: Improved
[2023-03-24 08:37] LABS: Glucose Point of Care 111 mg/dl (65-105)
[2023-03-24] MEDS: glipiZIDE XL 5 MG TABCR PO (09:15)
[2023-03-24] MEDS: oxyCODONE HCL (*CRX) 5 MG TAB IR 10 MG PO ×2 (09:15→23:36)
[2023-03-24] MEDS: DOCUSATE SODIUM 100 MG CAPSULE PO (09:15)
[2023-03-24] MEDS: FAMOTIDINE 20 MG TABLET PO ×2 (09:15→21:08)
[2023-03-24] MEDS: NICOTINE (*PBKC) 21 MG PATCH 1 PATCH TRANSDERM (09:16)
[2023-03-24 11:59] LABS: Glucose Point of Care 97 mg/dl (65-105)
[2023-03-24 14:00] VITALS: BP 179/66; PULSE 79; RESP 18; TEMP 36.5; O2SAT 99
[2023-03-24 17:17] LABS: Glucose Point of Care 172 mg/dl (65-105)
[2023-03-24 19:27] VITALS: BP 164/71; PULSE 77; RESP 18; TEMP 36.3; O2SAT 93
[2023-03-24 20:28] LABS: Glucose Point of Care 200 mg/dl (65-105)
[2023-03-25] MEDS: HYDROmorphone HCL INJ (*CRX) 1 MG/ML SYR IV PUSH ×2 (01:41→06:02)
[2023-03-25 05:50] VITALS: BP 143/76; PULSE 68; RESP 18; TEMP 36.3; O2SAT 94
[2023-03-25] MEDS: MEROPENEM 1 GM in SODIUM CHLORIDE 0.9% IV 100 ML 200 ML IVPB ×2 (06:01→13:57)
[2023-03-25] MEDS: ACETAMINOPHEN 500 MG TABLET 1000 MG PO ×2 (06:01→14:17)
[2023-03-25 08:49] LABS: Glucose Point of Care 99 mg/dl (65-105)
[2023-03-25] MEDS: oxyCODONE HCL (*CRX) 5 MG TAB IR 10 MG PO (09:00)
[2023-03-25] MEDS: glipiZIDE XL 5 MG TABCR PO (09:01)
[2023-03-25] MEDS: DOCUSATE SODIUM 100 MG CAPSULE PO (09:01)
[2023-03-25] MEDS: NICOTINE (*PBKC) 21 MG PATCH 1 PATCH TRANSDERM (09:01)
[2023-03-25] MEDS: FAMOTIDINE 20 MG TABLET PO (09:01)
[2023-03-25 10:38] VITALS: BMI 36.6
--- NOTE | 2023-03-25 11:45 | PM.DS ---
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 He started noticing pain in the perirectal region in the right medial buttock area for several days prior to coming to the emergency room. He was initially seen on outside emergency room and prescribed an oral antibiotic which did not resolve the infection. When he presented to [facility] emergency room his white blood cell count was 24,500 and he is mildly tachycardic. CT scan abdomen pelvis was performed showing a right-sided perirectal abscess. He appeared to have early signs of sepsis and so we started IV antibiotics and taken emergently to the operating room for incision and drainage of the perirectal abscess. He tolerated the initial surgery well and the wound was packed. Counter incisions were made Adak drains were placed as well. In the recovery room his course was uneventful and he was transferred to the surgical floor for routine postoperative care. He received oral narcotic pain medications on the floor with supplemental IV Dilaudid doses for breakthrough pain. The day after surgery his white blood cell count slightly decreased and the packing was removed. The was not repacked. He had stable redness induration the midportion and medial portions of the right buttock region. Drainage from the wounds were somewhat purulent to start but then became more serous like. His white blood count decreased down to about 15,000 however the course next couple days but he has continued as complaint of having severe pain in the region. The induration was persisting. I got a hemoglobin A1c in the level 6.7 suggesting pre diabetes or perhaps undiagnosed diabetes. Hospitalist was consulted to see the patient to help manage his diabetic state. He was started on some insulin and diabetic education was initiated. Because of the persistent pain and redness in the buttock region I got an 2nd CT scan on postop day number for and this showed a residual fluid collection superior and deep to the draining Adak drains. For this reason I then taken back to the operating room for exploration of the wound and drain the fluid collection superior to the initial drain cavity. This fluid collection was more supralevator in position. I placed 1 more additional Neal drain into the area to help further drain the the infection. The wound was packed with iodoform gauze which was left in place for [id number] which but it had to be removed due to swelling from a bowel movement. Due to his severe pain the packing was not replaced at the bedside. He cultured out Bacteroides species and streptococcal species. He was on Zosyn and Flagyl which should cover both of these organisms. However due to his stagnant state with continued induration and redness of the area I decided to change his IV antibiotics to meropenem. After restarting the meropenem his white blood cell count started to decrease more rapidly and his pain decreased markedly as well. On March 25, 2023 his white blood cell count was almost normal 10,500. He was afebrile and palpation of the medial buttock region revealed much improved induration or redness. Neal drains were in place. He was given 2 more doses of meropenem on the day of discharge and was discharged home in improved condition. He will be discharged home with prescriptions for continued oral pain narcotic medications. Also prescriptions for Cipro and Flagyl for oral antibiotics for another 14 days. Status at Discharge Functional status at discharge: independent ambulation Overall status at discharge: patient is progressing back to baseline Time Spent w
[2023-03-25 12:23] LABS: Glucose Point of Care 147 mg/dl (65-105)
--- NOTE | 2023-03-25 13:20 | PM.IMPN ---
Progress Note: A&P Assessment and Plan (1) Indu-rectal abscess: Code(s): K61.1 - Rectal abscess Status: Acute Assessment and Plan: Postop care per surgical team. Analgesics per surgical team. Antibiotics per surgical team (2) DM2 (diabetes mellitus, type 2): Code(s): E11.9 - Type 2 diabetes mellitus without complications Status: Acute Assessment and Plan: Patient's A1c was 6.7. Recommend starting on metformin. stock clipper has been consulted as well as the dietitian. I explained to the patient that wound healing may be delayed if his blood sugars remain elevated. However he has been under lot of stress which may also be elevating his blood sugars. Therefore he came to final decision of starting medications versus just diet and exercise. Plan Thank you for allowing the hospitalist team to consult on this patient. Subjective Date/time seen: 03/25/23 13:20 Interval history: No overnight events noted. No chest pain or shortness of breath. No nausea, vomiting or diarrhea. No fevers or chills. Review of Systems Review of Systems: 12 point review of systems was assessed and was negative except as noted in the HPI Exam Narrative: General: No acute distress, alert and oriented per baseline HEENT: Atraumatic, normocephalic, mucous membranes moist CV: Regular rate and rhythm, S1, S2 Lungs: Clear to auscultation bilaterally, no rales or crackles noted, no wheezes, good air entry Abdomen: Soft, nontender, nondistended Extremities: Normal to inspection Skin: No rashes noted, no lesions or wounds seen Psych: Euthymic, normal affect Objective Data Vital Signs Vital Signs: Vital Signs - 24 hr 03/24/23 14:00 03/24/23 19:27 03/24/23 20:00 Temperature 97.7 F 97.4 F L Pulse Rate 79 77 Respiratory Rate 18 18 Blood Pressure 179/66 H 164/71 H Pulse Oximetry 99 93 Oxygen Delivery Room Air 03/25/23 05:50 Temperature 97.4 F L Pulse Rate 68 Respiratory Rate 18 Blood Pressure 143/76 H Pulse Oximetry 94 Oxygen Delivery Intake/Output Intake/Output: Intake & Output 03/22/23 03/23/23 03/24/23 03/25/23 23:59 23:59 23:59 23:59 Intake Total 1810 2900 1290 890 Output Total 6790 157 9355 475 Balance 510 2100 -310 415 Meds/Results Medications: Active Medications Generic Name Dose Route Start Last Admin Trade Name Freq PRN Reason Stop Dose Admin Acetaminophen 1,000 mg 03/22/23 14:00 03/25/23 06:01 Acetaminophen 500 Mg Tablet PO 1,000 mg Q8HR AUGUST Administration Al Hydrox/Mg Hydrox/Simethicone 30 ml 03/18/23 09:25 Mag Hydrox/Al Hydrox/Simeth 30 Ml Udc PO Q6H PRN Indigestion Albuterol 2 puff 03/22/23 23:29 Albuterol Sulfate (*Sp) Aerosol 1 Puff INHALATION Q6HRT PRN Shortness Of Breath Dextrose 12.5 gm 03/22/23 23:15 Dextrose 50% 25 Gm/50 Ml Syringe IV PUSH PRN PRN Hypoglycemia Protocol Docusate Sodium 100 mg 03/23/23 09:00 03/25/23 09:01 Docusate Sodium 100 Mg Capsule PO 100 mg DAILY AUGUST Administration Famotidine 20 mg 03/18/23 09:25 03/25/23 09:01 Famotidine 20 Mg Tablet PO 20 mg Q12HR AUGUST Administration Fentanyl Citrate 25 mcg 03/21/23 09:19 03/21/23 11:40 Fentanyl Citrate Inj (*Crx) 100 Mcg/2 Ml Vial IV PUSH 25 mcg Q2M PRN Administration Pain Glipizide 5 mg 03/23/23 08:00 03/25/23 09:01 Glipizide Xl 5 Mg Tabcr PO 5 mg DAILY@0800 AUGUST Administration Glucagon 1 mg 03/22/23 23:15 Glucagon For Inj 1 Mg Vial IM PRN PRN Hypoglycemia Protocol Glucose 15 gm 03/22/23 23:15 Glucose Oral Gel 15 Gm Of Glucse In 37.5 Gm Tube PO PRN PRN Hypoglycemia Protocol Hydromorphone HCl 1 mg 03/21/23 13:31 03/25/23 06:02 Hydromorphone Hcl Inj (*Crx) 1 Mg/Ml Syr IV PUSH 1 mg Q2HR PRN Administration Pain Rated 7-10 Meropenem 1 gm/ Sodium 100 mls @ 200 mls/hr 03/22/23 14:00 03/25/23 06:
== END 2023-03-25 14:36 | disposition home or self-care (01) | DRG 346 ==
LOC: ANHED 02:07 → ANH2MED 06:00
PROVIDERS: Admitting Provider Surgery; Emergency Provider Emergency Medicine; Visit Provider Surgery
PROC: 0D9P0ZX Drainage of Rectum, Open Approach, Diagnostic (ICD-10-PCS; CPT 46040; principal; 2023-03-16 08:00)
PROC: 0D9P0ZZ Drainage of Rectum, Open Approach (ICD-10-PCS; CPT 46040; principal; 2023-03-21 10:00)
DX: K61.2 Anorectal abscess (principal); B96.6 Bacteroides fragilis [B. fragilis] as the cause of diseases classified elsewhere; B95.4 Other streptococcus as the cause of diseases classified elsewhere; E11.9 Type 2 diabetes mellitus without complications; F17.210 Nicotine dependence, cigarettes, uncomplicated
CPT/HCPCS: 36415; 74177; 80048; 80053; 81001; 82948; 83036; 83605; 83690; 85025; 85610; 85730; 87040; 87070; 87075; 87076; 87077; 87205; 96361; 96365; 96366; 96375; 96376; 99285; A9270; G0378; J1100; J1170; J1836; J1885; J2185; J2250; J2405; J2543; J2704; J3010; J7030; J7120; Q9967

== ENCOUNTER 2023-08-29 15:17 | Emergency (ER) | payer BC, SELFPAY ==
[2023-08-29] VITALS (9 sets, daily range): BP systolic 149–200; BP diastolic 90–113; PULSE 85–95; RESP 12–29; TEMP 36.1; O2SAT 94–99
--- NOTE | ~2023-08-29 | US_ITS ---
EXAMINATION: US venous doppler [facility] DATE: 08/29/2023 16:47 INDICATION: Left lower limb pain TECHNIQUE: Grayscale ultrasound images without and with compression and Doppler ultrasound images of the left lower extremity veins were obtained. COMPARISON: None. FINDINGS: The visualized portions of left common femoral vein, profunda (deep) femoral vein, femoral vein, popl iteal vein, peroneal veins, posterior tibial veins, gastrocnemius vein and greater saphenous vein out flow are patent. IMPRESSION: 1. No deep venous thrombosis in the left lower limb. Reviewed, dictated and finalized at location A. [employer]
--- NOTE | 2023-08-29 15:43 | ED.GENADULT ---
HPI - General Adult General Chief complaint: Extremity Injury, Lower <FLEX Santizo Last Filed: 08/29/23 17:39> Stated complaint: leg pain <FLEX Santizo Last Filed: 08/29/23 17:39> Time Seen by Provider: 08/29/23 15:28 <FLEX Santizo Last Filed: 08/29/23 17:39> Source: patient <FLEX Sanitzo Last Filed: 08/29/23 17:39> Mode of arrival: ambulatory <FLEX Santizo Last Filed: 08/29/23 17:39> Limitations: no limitations <FLEX Santizo Filed: 08/29/23 17:39> History of Present Illness HPI narrative: This is a 57-year-old male with PMH of DM type 2 recently diagnosed who presents to the ED with chief complaint of left lower leg pain x2 months and worse today. Reports pain to the posterior calf and posterior knee area. Denies any injuries to the leg or knee. Denies problems with range of motion. Denies numbness, weakness of the lower leg or foot. Reports that the pain is worsened with activity he is walking. It is somewhat relieved with rest. Denies any change in coloration of the skin or temperature. Denies fevers, chills, nausea, vomiting. Reports greater than a 30 year smoking history <FLEX Santizo Last Filed: 08/29/23 17:39> Related Data Allergies/adverse reactions: Allergies Allergy/AdvReac Type Severity Reaction Status Date / Time azithromycin Allergy Hives Verified 08/29/23 15:22 <FLEX Santizo Last Filed: 08/29/23 17:39> Review of Systems Review of Systems: All systems as dictated in HPI <FLEX Santizo Last Filed: 08/29/23 17:39> [facility] Past Medical History Medical History: Medical History DM2 (diabetes mellitus, type 2) Indu-rectal abscess <FLEX Santizo Last Filed: 08/29/23 17:39> Surgical History Surgical History: Surgical History History of incision and drainage Perirectal abscess <Blayne Cifuentes PA-C - Last Filed: 08/29/23 17:39> Family History Family History: Family History Mother Cancer Father Acute myocardial infarction <Blayne Cifuentes PA-C - Last Filed: 08/29/23 17:39> Social History Social History: Social History (Updated 06/21/23 @ 15:48 by Kirsty Florence) Social History: The patient is on his 2nd marriage and he has 2 children. The patient smoked in then quit smoking in went back to smoking and has not smoked for week. He was smoking a pack a cigarettes a day up until 1 week ago. 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 He denies any alcohol or marijuana or illicit drugs. Code status full code Smoking packs per day: 1 Smoking cigarettes per day: 20.0 Years smoked: 25 Smoking pack-years: 25.00 Smoking status: Former smoker Tobacco type: cigarettes Smoking end date: 02/21/23 Alcohol intake: former Substance use: never Substance use type: does not use Lack of Transportation: No Lack of Food: Never True Current Housing: I Have Housing Concerned About Future Housing: No Difficulty Paying Gas/Electric Bills: No Difficulty Paying for Meds: No Currently Unemployed: No Education: Bachelor's Degree Difficulty w/ Childcare or Family Care: No Living arrangements: with family Occupation/Education: occupation 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 HEAD: Normocephalic, atraumatic. EYES: PERRLA and EOMI. ENT: Nares clear, no rhinorrhea or epistaxis. Mucous membranes moist. Oropharynx without t
[2023-08-29 15:58] LABS: Basophils Absolute Auto 0.1 K/mm3 (0.0-0.1); Basophils Percent Auto 0.7 % (0.2-1.2); Eosinophils Absolute Auto 0.2 K/mm3 (0-0.3); Eosinophils Percent Auto 1.7 % (0-4.4); Hematocrit 50.8 % (42.0-52.0); Hemoglobin 16.9 g/dL (14.0-18.0); Immature Granulocyte Absolute 0.02 K/mm3 (0.00-0.031); Immature Granulocyte Percent A 0.2 % (0-0.5); Lymphocytes Absolute Auto 3.26 K/mm3 (0.9-3.2); Lymphocytes Percent Auto 34.3 % (18.3-44.2); Mean Corpuscular HGB Conc 33.3 g/dl (32-36); Mean Corpuscular Hemoglobin 31.8 pg (26-34); Mean Corpuscular Volume 95.5 fl (80-100); Mean Platelet Volume 11.8 fl (7.4-10.4); Monocytes Absolute Auto 0.7 K/mm3 (0.1-0.6); Monocytes Percent Auto 7.7 % (2.6-8.5); Neutrophils Absolute Auto 5.3 K/mm3 (1.3-6.7); Neutrophils Percent Auto 55.4 % (45.5-73.1); Platelet Count Result 217 k/mm3 (150-375); Red Blood Count 5.32 M/mm3 (4.6-6.20); White Blood Count 9.5 K/mm3 (4.5-10.0)
[2023-08-29 16:08] LABS: INR 0.9; Prothrombin Time 12.8 Seconds (11.1-14.7)
[2023-08-29 16:09] LABS: Partial Thromboplastin Time 31.1 SECONDS (22.3-36.8)
[2023-08-29 16:10] LABS: Alanine Aminotransferase 28 U/L (6-50); Albumin Level 4.3 g/dL (3.5-5.1); Alkaline Phosphatase 69 U/L (38-126); Anion Gap 11 mmol/L (8-16); Aspartate Amino Transferase 50 U/L (17-59); Bilirubin,Total 0.7 mg/dL (0.2-1.3); Blood Urea Nitrogen 14 mg/dL (9-20); Calcium 9.5 mg/dL (8.4-10.2); Carbon Dioxide 27 mmol/L (22-30); Chloride 101 mmol/L (98-107); Estimated CRCL calculation 155 ml/min; Estimated Glomerular Filt Rate > 60; Glucose 167 mg/dL (65-110); Potassium 4.1 mmol/L (3.4-5.0); Sodium 139 mmol/L (137-145)
[2023-08-29] MEDS: ACETAMINOPHEN 500 MG TABLET 1000 MG PO (16:37)
[2023-08-29] MEDS: KETOROLAC 30 MG/ML VIAL (*BKC) IV PUSH (16:39)
== END 2023-08-29 17:22 | disposition home or self-care (01) ==
PROVIDERS: Emergency Provider Physician Assistant; PCP Family Medicine
DX: M79.662 Pain in left lower leg (principal); Z87.891 Personal history of nicotine dependence
CPT/HCPCS: 36415; 80053; 85025; 85610; 85730; 93971; 96374; 99284; A9270; J1885

== ENCOUNTER 2023-10-30 19:38 | Emergency (ER) | payer BC, SELFPAY ==
[2023-10-30 19:39] VITALS: BP 182/114; PULSE 106; RESP 15; TEMP 36.6; O2SAT 95
--- NOTE | 2023-10-30 22:06 | PC.NURSE ---
Patient states he does not wish to be evaluated tonight and will return at a later time. Patient ambulates out of the waiting room without incident.
== END 2023-10-30 22:13 | disposition left against medical advice (07) ==
PROVIDERS: PCP Family Medicine
DX: M25.469 Effusion, unspecified knee (principal)
CPT/HCPCS: 99199

== ENCOUNTER 2023-10-31 07:53 | Emergency (ER) | payer BC, SELFPAY ==
--- NOTE | ~2023-10-31 | XR_ITS ---
Left Knee Technique: AP, lateral, and oblique views were obtained. Clinical History: Posterior pain Findings: No fracture or dislocation is seen. Osseous alignment is anatomic. Joint spaces are preserv ed without degenerative or erosive change. Soft tissues are unremarkable. No joint effusion is seen. Impression: Unremarkable left knee radiographs. Reviewed, dictated and finalized at location . [facility] Impression: Unremarkable left knee radiographs.
--- NOTE | ~2023-10-31 | US_ITS ---
EXAMINATION: US venous doppler [facility] DATE: 10/31/2023 08:47 INDICATION: Left knee pain TECHNIQUE: Lipscomb scale images without and with compression and Doppler images of the left lower extrem ity veins were obtained. COMPARISON: 08/29/2023 FINDINGS: The left common femoral vein, profunda femoral vein, femoral vein, popliteal vein, peroneal trunk, posterior tibial veins, and greater saphenous vein are patent. A Marmolejo's cyst is noted. IMPRESSION: 1. Patent left lower extremity veins. No evidence of deep venous thrombosis. Reviewed, dictated and finalized at location L. PER BEATER
[2023-10-31 08:00] VITALS: BP 151/90; PULSE 88; RESP 20; TEMP 36.5; O2SAT 95
--- NOTE | 2023-10-31 08:45 | ED.EXTPRO ---
HPI - Extremity Problem General Chief complaint: Extremity Problem,Nontraumatic Stated complaint: CYST IN LEG Time Seen by Provider: 10/31/23 08:44 Source: patient Mode of arrival: ambulatory Limitations: no limitations History of Present Illness HPI Narrative: [place] is a 57-year-old male patient presenting to the ER today with complaints of left leg pain. He reports pain is into the left thigh, left knee, and left calf. Also reporting numbness and tingling to the left foot. Patient is a newly diagnosed diabetic-6 months ago. States that he was on metformin however he stop taking the metformin because it was not doing anything for his leg. States he took Advil this morning for the pain. Rates pain currently a 03/04. Was seen in the ER back in August and had a DVT study done and it was negative at that time. Related Data Allergies Allergy/AdvReac Type Severity Reaction Status Date / Time azithromycin Allergy Hives Verified 10/31/23 09:07 Review of Systems Review of Systems: Pertinent positives per HPI. Patient denies any fever, chills, rash, headache, visual changes, dizziness, cough, runny nose, sore throat, shortness of breath, chest pain, palpitations, nausea, vomiting, diarrhea, constipation, abdominal pain, or any urinary issues. [facility] Past Medical History Medical History DM2 (diabetes mellitus, type 2) Indu-rectal abscess Surgical History Surgical History History of incision and drainage Perirectal abscess Family History Family History Mother Cancer Father Acute myocardial infarction Social History Social History Social History: The patient is on his 2nd marriage and he has 2 children. The patient smoked in then quit smoking in went back to smoking and has not smoked for week. He was smoking a pack a cigarettes a day up until 1 week ago. 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 He denies any alcohol or marijuana or illicit drugs. Code status full code Smoking packs per day: 1 Smoking cigarettes per day: 20.0 Years smoked: 25 Smoking pack-years: 25.00 Smoking status: Former smoker Tobacco type: cigarettes Smoking end date: 02/21/23 Alcohol intake: former Substance use: never Substance use type: does not use Lack of Transportation: No Lack of Food: Never True Current Housing: I Have Housing Concerned About Future Housing: No Difficulty Paying Gas/Electric Bills: No Difficulty Paying for Meds: No Currently Unemployed: No Education: Bachelor's Degree Difficulty w/ Childcare or Family Care: No Living arrangements: with family Occupation/Education: occupation 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 There is no relevant family history pertinent to the patient complaint. Exam Narrative: General: Well-developed, well nourished, in no apparent distress Head: Normocephalic, atraumatic. Cardio: Regular rate and rhythm, s1 and s2 normal, no murmur appreciated. Resp: Clear to auscultation bilaterally, no rhonchi, rales, wheezing or rubs. Musculoskeletal: No deformity, tender to palpation over the left thigh, left calf, and over the entire left knee joint, grossly normal range of motion, muscle strength strong and equal, peripheral pulse strong, no edema, no cyanosis, normal gait and station Course Course Emergency Course: Portions of this record may have been created with voice recognition softw
[2023-10-31 09:26] LABS: Basophils Absolute Auto 0.1 K/mm3 (0.0-0.1); Basophils Percent Auto 0.7 % (0.2-1.2); Eosinophils Absolute Auto 0.1 K/mm3 (0-0.3); Eosinophils Percent Auto 1.5 % (0-4.4); Hematocrit 49.8 % (42.0-52.0); Hemoglobin 16.6 g/dL (14.0-18.0); Immature Granulocyte Absolute 0.02 K/mm3 (0.00-0.031); Immature Granulocyte Percent A 0.2 % (0-0.5); Lymphocytes Absolute Auto 2.82 K/mm3 (0.9-3.2); Lymphocytes Percent Auto 31.2 % (18.3-44.2); Mean Corpuscular HGB Conc 33.3 g/dl (32-36); Mean Corpuscular Hemoglobin 32.3 pg (26-34); Mean Corpuscular Volume 96.9 fl (80-100); Mean Platelet Volume 11.1 fl (7.4-10.4); Monocytes Absolute Auto 0.9 K/mm3 (0.1-0.6); Monocytes Percent Auto 9.4 % (2.6-8.5); Neutrophils Absolute Auto 5.2 K/mm3 (1.3-6.7); Platelet Count Result 183 k/mm3 (150-375); Red Blood Count 5.14 M/mm3 (4.6-6.20)
[2023-10-31 09:57] LABS: Alanine Aminotransferase 25 U/L (6-50); Albumin Level 3.9 g/dL (3.5-5.1); Alkaline Phosphatase 70 U/L (38-126); Anion Gap 5 mmol/L (8-16); Aspartate Amino Transferase 43 U/L (17-59); Bilirubin,Total 0.8 mg/dL (0.2-1.3); Blood Urea Nitrogen 15 mg/dL (9-20); Carbon Dioxide 27 mmol/L (22-30); Chloride 104 mmol/L (98-107); Creatine Kinase 82 U/L (55-170); Estimated CRCL calculation 178 ml/min; Estimated Glomerular Filt Rate > 60; Glucose 151 mg/dL (65-110); Potassium 4.3 mmol/L (3.4-5.0); Sodium 136 mmol/L (137-145)
[2023-10-31 10:00] LABS: Erythrocyte Sedimentation Rate 12 mm/hr (0-20)
[2023-10-31 11:07] VITALS: BP 157/80; PULSE 78; RESP 18; O2SAT 95
== END 2023-10-31 11:09 | disposition home or self-care (01) ==
PROVIDERS: Emergency Provider Nurse Practitioner Family; PCP Family Medicine
DX: M79.652 Pain in left thigh (principal); M25.562 Pain in left knee; M79.662 Pain in left lower leg; E11.49 Type 2 diabetes mellitus with other diabetic neurological complication; Z87.891 Personal history of nicotine dependence
CPT/HCPCS: 36415; 73564; 80053; 82550; 85025; 85652; 86140; 93971; 99284

== ENCOUNTER 2024-01-22 18:46 | Emergency (ER) | payer BC, SELFPAY ==
--- NOTE | ~2024-01-22 | CT_ITS ---
EXAMINATION: CT pelvis w con DATE: 01/22/2024 20:09 INDICATION: Perirectal abscess TECHNIQUE: Computed tomography (CT) of the pelvis was performed without intravenous contrast. Automat ed exposure control and iterative reconstruction technique were employed. The dose-length product was 860.61 mGy-cm. COMPARISON: CT abdomen pelvis 03/19/2023 FINDINGS: Atherosclerotic arterial calcifications. Normal appendix. Normal urinary bladder. Mild pros tatomegaly. Degenerative changes in the lower lumbar spine and bilateral hips. Hernia mesh at the umb ilicus. Small uncomplicated appearing fat-containing bilateral inguinal hernias. Subcutaneous scarrin g noted in the region of prior abscess in the right buttock and perineal soft tissues. Redemonstratio n of soft tissue density nodules posterior to the rectum just superior to the level of the levator an i muscle, measuring 1.2 x 2.4 cm the left of midline, and 2.4 x 1.3 cm to the right of midline. IMPRESSION: No definite perirectal abscess detected. Indeterminate soft tissue nodules posterior to the rectum, now slightly smaller in size. As previousl y reported, these may represent benign or malignant neoplasm or enlarged lymph nodes. Abscess conside red less likely given the lack of peripheral enhancement/inflammation. Prior recommendation for endor ectal ultrasound or pre and postcontrast MRI is unchanged. Reviewed, dictated and finalized at location K. IMPRESSION: No definite perirectal abscess detected. Indeterminate soft tissue nodules posterior to the rectum, now slightly smaller in size. As previously reported, these may represent benign or malignant neopl asm or enlarged lymph nodes. Abscess considered less likely given the lack of p eripheral enhancement/inflammation. Prior recommendation for endorectal ultraso und or pre and postcontrast MRI is unchanged.
[2024-01-22 18:51] VITALS: BP 186/93; PULSE 96; RESP 16; TEMP 36.4; O2SAT 96
[2024-01-22] MEDS: MORPHINE SULFATE (*CRX) 4 MG/ML INJ IV PUSH (19:27)
[2024-01-22 19:35] LABS: Basophils Absolute Auto 0.1 K/mm3 (0.0-0.1); Basophils Percent Auto 0.8 % (0.2-1.2); Eosinophils Absolute Auto 0.2 K/mm3 (0-0.3); Eosinophils Percent Auto 1.9 % (0-4.4); Hematocrit 47.8 % (42.0-52.0); Immature Granulocyte Absolute 0.03 K/mm3 (0.00-0.031); Immature Granulocyte Percent A 0.3 % (0-0.5); Lymphocytes Absolute Auto 2.97 K/mm3 (0.9-3.2); Lymphocytes Percent Auto 32.9 % (18.3-44.2); Mean Corpuscular HGB Conc 33.5 g/dl (32-36); Mean Corpuscular Hemoglobin 32.3 pg (26-34); Mean Corpuscular Volume 96.4 fl (80-100); Mean Platelet Volume 11.5 fl (7.4-10.4); Monocytes Absolute Auto 0.8 K/mm3 (0.1-0.6); Monocytes Percent Auto 8.7 % (2.6-8.5); Neutrophils Percent Auto 55.4 % (45.5-73.1); Platelet Count Result 167 k/mm3 (150-375); Red Blood Count 4.96 M/mm3 (4.6-6.20); Red Cell Distribution Width 12.4 % (11.5-14.5)
[2024-01-22 19:48] LABS: Lactic Acid Reflex 1.7 mmol/L (0.7-2.0)
[2024-01-22 19:50] LABS: Alanine Aminotransferase 19 U/L (6-50); Albumin Level 3.8 g/dL (3.5-5.1); Alkaline Phosphatase 77 U/L (38-126); Anion Gap 6 mmol/L (4-12); Aspartate Amino Transferase 39 U/L (17-59); Bilirubin,Total 0.8 mg/dL (0.2-1.3); Blood Urea Nitrogen 12 mg/dL (9-20); CRP 0.8 mg/dL (<1.0); Calcium 8.9 mg/dL (8.4-10.2); Carbon Dioxide 28 mmol/L (22-30); Chloride 103 mmol/L (98-107); Estimated CRCL calculation 149 ml/min; Estimated Glomerular Filt Rate > 60; Glucose 257 mg/dL (65-110); Potassium 3.7 mmol/L (3.4-5.0); Sodium 137 mmol/L (137-145)
[2024-01-22 20:03] LABS: Erythrocyte Sedimentation Rate 18 mm/hr (0-20)
--- NOTE | 2024-01-22 20:33 | ED.SKABFB ---
HPI - Skin/Abscess/Foreign Bdy General Chief complaint: Skin/Abscess/Foreign Body Stated complaint: indu-rectal abcesss Time Seen by Provider: 01/22/24 18:59 History of Present Illness HPI narrative: 58-year-old male with history of type 2 diabetes and MDD presents to the emergency department concerns for a perirectal abscess. Patient states yesterday he noticed pain to his rectum and is concerned as he has a perirectal abscess. He was evaluated on emergency department in January of 2023 and was admitted and taken to surgery for management of a perirectal abscess. States his symptoms started similarly is how they are today he is concerned he is developing another abscess. He is reporting pain to the superior aspect of his rectum. Denies fever, vomiting, abdominal pain, nausea, drainage. He does note that he is supposed to be taking metformin for diabetes but has not taken in multiple months because he is interested in getting a new primary care doctor. Also notes that he smokes a pack-a-day. Related Data Allergies Allergy/AdvReac Type Severity Reaction Status Date / Time azithromycin Allergy Hives Verified 01/22/24 18:54 Review of Systems Review of Systems: CONSTITUTIONAL: Denies fever, chills, or sweats. EYES: Denies visual changes, redness, or discharge. ENT: Denies rhinorrhea, congestion, sore throat, or otalgia. CARDIOVASCULAR: Denies chest pain, palpitations, or edema. RESPIRATORY: Denies cough or dyspnea. GASTROINTESTINAL: See HPI GENITOURINARY: Denies dysuria or hematuria. SKIN: Denies rash or itching. MUSCULOSKELETAL: Denies back pain, joint pain, or myalgia. NEUROLOGIC: Denies headache, numbness, or weakness. PSYCHIATRIC: Denies anxiety or depression. REPLACED BY [facility] Past Medical History Medical History BMI 34.0-34.9,adult Yary infection of flexural skin DM2 (diabetes mellitus, type 2) Elevated BP without diagnosis of hypertension Elevated hemoglobin A1c History of tobacco abuse Indu-rectal abscess Perirectal abscess Surgical History Surgical History History of incision and drainage Perirectal abscess Family History Family History Mother Cancer Father Acute myocardial infarction Social History Social History Social History: The patient is on his 2nd marriage and he has 2 children. The patient smoked in then quit smoking in went back to smoking and has not smoked for week. He was smoking a pack a cigarettes a day up until 1 week ago. 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 He denies any alcohol or marijuana or illicit drugs. Code status full code Smoking packs per day: 1 Smoking cigarettes per day: 20.0 Years smoked: 25 Smoking pack-years: 25.00 Smoking status: Current some day smoker Tobacco type: cigarettes Smoking end date: 02/21/23 Alcohol intake: former Substance use: never Substance use type: does not use Lack of Transportation: No Lack of Food: Never True Current Housing: I Have Housing Concerned About Future Housing: No Difficulty Paying Gas/Electric Bills: No Difficulty Paying for Meds: No Currently Unemployed: No Education: Bachelor's Degree Difficulty w/ Childcare or Family Care: No Living arrangements: with family Occupation/Education: occupation 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 HEAD: Normocephalic, atraumatic. NECK: Supple. CHEST: Clear to auscultation. No respiratory distress. HEART: Regular rate and rhythm. No murmur hea
[2024-01-22] MEDS: metroNIDAZOLE 500 MG TABLET PO (21:12)
[2024-01-22] MEDS: CIPROFLOXACIN 500 MG TAB PO (21:12)
[2024-01-22 21:28] VITALS: BP 139/50; PULSE 81; RESP 16; TEMP 36.6; O2SAT 100
== END 2024-01-22 21:30 | disposition home or self-care (01) ==
PROVIDERS: Emergency Provider Physician Assistant; PCP Family Medicine
DX: K62.89 Other specified diseases of anus and rectum (principal); E11.65 Type 2 diabetes mellitus with hyperglycemia; F32.9 Major depressive disorder, single episode, unspecified; F17.210 Nicotine dependence, cigarettes, uncomplicated; T38.3X6A Underdosing of insulin and oral hypoglycemic [antidiabetic] drugs, initial encounter; Z91.128 Patient's intentional underdosing of medication regimen for other reason; Z79.899 Other long term (current) drug therapy
CPT/HCPCS: 36415; 72193; 80053; 83605; 85025; 85652; 86140; 96374; 99284; A9270; J2270; Q9967

== ENCOUNTER 2024-02-04 08:47 | Outpatient (CLI) | payer BC, SELFPAY ==
--- NOTE | ~2024-02-04 | MR_ITS ---
EXAMINATION: MR pelvis wo/w con DATE: 02/04/2024 10:00 INDICATION: Intra-abdominal and pelvic swelling, mass and lump. Recent rectal abscess. TECHNIQUE: Magnetic resonance imaging (MRI) of the pelvis was performed without intravenous contrast. Fullfield sequences of the pelvis included axial and coronal T2-weighted SS FSE, coronal 2D FIESTA, axial T1-weighted FSPGR, axial dual-echo T1-weighted FSPGR and axial T1 weighted LAVA. Small field o f view sequences included axial, sagittal and coronal T2-weighted FSE centered on the prostate and re ctum. Postcontrast sequences included a time course axial T1-weighted LAVA with full-field of view o f the pelvis. COMPARISON: CT pelvis dated 01/22/2024 and 03/19/2023 and 03/16/2023 FINDINGS: There is some scarring in the subcutaneous tissues along the right side of the anus at the site of a previously drained perianal abscess. Multiloculated cluster of small nonenhancing fluid collections s eparated by a smooth thin septations located within the retrorectal/presacral fat cephalad to the lev ator ani muscle which measures 3.8 cm left to right, 4.2 cm craniocaudally and 2.7 cm anteroposterior ly. The largest component the right posterior margin of the distal rectum measures 3.0 x 2.7 x 2.4 cm with T2 hyperintensity slightly less than the remaining components. There is also a 1.8 x 1.3 x 1.2 cm component extending to the left of midline which demonstrates a slightly higher degree of T1 signa l intensity in the remaining components. The signal characteristics are consistent with complex fluid either hemorrhagic or with varying degrees of proteinaceous material in this likely accounts for the greater than simple fluid attenuation on prior CT. No evident solid enhancing soft tissue component. The peripheral serosal margin of the adjacent rectum appears intact. No evident fistulous tract to t he lumen of the rectum or ileus. Prostatomegaly measuring 5.3 x 5.1 x 4.6 cm. Visualized portions of the bowels including the appendix are normal. No free fluid in the pelvis. No pathologically enlarged pelvic or inguinal lymphadenopathy. Bone marrow signal is normal throughout. IMPRESSION: 1. There is some scarring in the right perirenal subcutaneous fat at the site of a previously drained , now decompressed perineal abscess cavity. The associated surrounding inflammatory stranding/celluli tis has resolved. 2. No significant change in a 4.2 x 3.8 x 2.7 cm multiloculated cluster of nonenhancing complex fluid collections in the retrorectal/presacral fat cephalad to the levator ani along the posterior margin of the rectum. Imaging features would be most consistent with a tail gut cyst with differential inclu ding benign epidermoid, dermoid or neuroenteric cyst. The interval stability and absence of surroundi ng inflammatory change would argue against abscess. No solid enhancing soft tissue component to sugge st neoplasm either benign, malignant or malignant transformation. Reviewed, dictated and finalized at location A. IMPRESSION: 1. There is some scarring in the right perirenal subcutaneous fat at the site o f a previously drained, now decompressed perineal abscess cavity. The associate d surrounding inflammatory stranding/cellulitis has resolved. 2. No significant change in a 4.2 x 3.8 x 2.7 cm multiloculated cluster of none nhancing complex fluid collections in the retrorectal/presacral fat cephalad to the levator ani along the posterior margin of the rectum. Imaging features wou ld be most consistent with a tail gut cyst with differential including benign e pidermoid, dermoid or neuroenteric cyst. The interval stability and absence of surrounding inflammatory change would argue against abscess. No solid enhancing soft tissue component to suggest neoplasm either benign, michelle
== END 2024-02-04 08:48 ==
LOC: MICIMG 08:48
PROVIDERS: PCP Surgery; Visit Provider Surgery
DX: R19.00 Intra-abdominal and pelvic swelling, mass and lump, unspecified site (principal)
CPT/HCPCS: 72197; A9577

== ENCOUNTER 2024-03-02 12:13 | Observation (INO) | payer BC, SELFPAY ==
--- NOTE | ~2024-03-02 | CT_ITS ---
EXAMINATION: CT pelvis w con DATE: 03/02/2024 15:55 INDICATION: Perirectal abscess. TECHNIQUE: Computed tomography (CT) of the pelvis was performed with 100 mL Omnipaque 350 intravenous contrast. Automated exposure control and iterative reconstruction technique were employed. The dose- length product was 1088.44 mGy-cm. COMPARISON: CT pelvis 01/22/2024, CT abdomen and pelvis 03/19/23, 03/16/23, pelvis MRI 02/04/24 FINDINGS: The prostate is moderately enlarged. There is a left inguinal hernia containing fat. There are no pathologically enlarged lymph nodes. There is a 2.7 x 1.0 x 1.3 cm perianal abscess. There is a 3.1 x 1.7 x 4.1 cm mass posterior to the rectum. There is mild lumbar spondylosis. IMPRESSION: 1. 2.7 x 1.0 x 1.3 cm perianal abscess. 2. 3.1 x 1.7 x 4.1 cm mass posterior to the rectum that was cystic by MRI, stable from 03/16/23. 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 3. Left inguinal hernia containing fat. Reviewed, dictated and finalized at location E. IMPRESSION: 1. 2.7 x 1.0 x 1.3 cm perianal abscess. 2. 3.1 x 1.7 x 4.1 cm mass posterior to the rectum that was cystic by MRI, stab le from 03/16/23. 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 3. Left inguinal hernia containing fat.
[2024-03-02 12:15] VITALS: BP 194/85; PULSE 97; RESP 16; TEMP 36.9; O2SAT 95
--- NOTE | 2024-03-02 13:28 | ED.SKABFB ---
HPI - Skin/Abscess/Foreign Bdy General Chief complaint: Skin/Abscess/Foreign Body <Maria Elena Shipman PA-C - Last Filed: 03/02/24 18:51> Stated complaint: cyst on butt <Maria Elena Shipman PA-C - Last Filed: 03/02/24 18:51> Time Seen by Provider: 03/02/24 13:29 <FLEX Caceres Last Filed: 03/02/24 18:51> Focused HPI: Patient is a 58 y/o male who presents to the ED with c/o abscess to his buttocks. Patient reports hx of recurrent perirectal abscess. Has required drainage in the past, complex I&D/surgical drainage under Dr. Schmidt in February 2023. Follows with Dr. Schmidt, recently had pelvic MRI which did not show any active abscess. Reports over the last 2 days, has had increased pain and swelling in his R medial gluteal region. Difficulty sitting d/t the pain. States sxs seem to be worsening. Denies any fevers. Denies difficulty with BM. Patient is a diabetic, has not been routinely checking his BG. On Metformin therapy. BG in triage 280. GENERAL: Well-appearing, obese with BMI of 37.1, and in no acute distress. HEAD: Normocephalic, atraumatic. CHEST: Clear to auscultation. ?No respiratory distress. HEART: Regular rate and rhythm.? NEURO: ?Alert and oriented x3. Patient screened in triage and initial orders placed.? ?Additional care and disposition to be based upon?diagnostic testing and treatment. <Maria Elena Shipman PA-C - Last Filed: 03/02/24 18:51> Source: patient and old records reviewed <Maria Elena Shipman PA-C - Last Filed: 03/02/24 18:51> Mode of arrival: ambulatory <Maria Elena Shipman PA-C - Last Filed: 03/02/24 18:51> Limitations: no limitations <FLEX Caceres Last Filed: 03/02/24 18:51> History of Present Illness HPI narrative: Agree with HPI <Tobias Pennington MD - Last Filed: 03/02/24 18:22> Related Data Allergies/Adverse reactions: Allergies Allergy/AdvReac Type Severity Reaction Status Date / Time azithromycin Allergy Hives Verified 02/06/24 14:54 <Maria Elena Shipman PA-C - Last Filed: 03/02/24 18:51> Review of Systems Review of Systems: All systems reviewed & are unremarkable except as noted in HPI and below <Tobias Pennington MD - Last Filed: 03/02/24 18:22> Constitutional: Constitutional: Reports no additional constitutional complaints <Tobias Pennington MD - Last Filed: 03/02/24 18:22> Cardiovascular: Cardiovascular: Reports no additional cardiovascular complaints <Tobias Pennington MD - Last Filed: 03/02/24 18:22> Respiratory: Respiratory: Reports no additional respiratory complaints <Tobias Pennington MD - Last Filed: 03/02/24 18:22> Gastrointestinal: Gastrointestinal: Denies abdominal pain, Denies diarrhea, Denies nausea and Denies vomiting <Tobias Pennington MD - Last Filed: 03/02/24 18:22> Comments: rectal pain <Tobias Pennington MD - Last Filed: 03/02/24 18:22> Musculoskeletal: Musculoskeletal: Reports no additional musculoskeletal complaints <Tobias Pennington MD - Last Filed: 03/02/24 18:22> PMFSH Past Medical History Medical History: Medical History BMI 34.0-34.9,adult Yary infection of flexural skin DM2 (diabetes mellitus, type 2) Elevated BP without diagnosis of hypertension Elevated hemoglobin A1c History of tobacco abuse Indu-rectal abscess Perirectal abscess <Maria Elena Shipman PA-C - Last Filed: 03/02/24 18:51> Surgical History Surgical History: Surgical History History of incision and drainage Perirectal abscess <Maria Elena Shipman PA-C - Last Filed: 03/02/24 18:51> Family History Family History: Family History Mother Cancer Father Acute myocardial infarction <Maria Elena Shipman PA-C - Last Filed: 03/02/24 18:51> Social History Social History: So
[2024-03-02 13:41] LABS: Glucose Point of Care 280 mg/dl (65-105)
[2024-03-02] MEDS: HYDROcodone/acetaminophen (*CRX) 5-325 MG TABLET 1 TAB PO ×2 (13:45→21:03)
[2024-03-02 13:46] LABS: Basophils Absolute Auto 0.1 K/mm3 (0.0-0.1); Basophils Percent Auto 0.6 % (0.2-1.2); Eosinophils Absolute Auto 0.2 K/mm3 (0-0.3); Eosinophils Percent Auto 1.4 % (0-4.4); Hematocrit 49.9 % (42.0-52.0); Hemoglobin 17.3 g/dL (14.0-18.0); Immature Granulocyte Absolute 0.04 K/mm3 (0.00-0.031); Immature Granulocyte Percent A 0.4 % (0-0.5); Lymphocytes Absolute Auto 2.93 K/mm3 (0.9-3.2); Lymphocytes Percent Auto 27.4 % (18.3-44.2); Mean Corpuscular HGB Conc 34.7 g/dl (32-36); Mean Platelet Volume 11.1 fl (7.4-10.4); Monocytes Absolute Auto 0.9 K/mm3 (0.1-0.6); Monocytes Percent Auto 8.1 % (2.6-8.5); Neutrophils Absolute Auto 6.7 K/mm3 (1.3-6.7); Neutrophils Percent Auto 62.1 % (45.5-73.1); Platelet Count Result 191 k/mm3 (150-375); Red Blood Count 5.25 M/mm3 (4.6-6.20); Red Cell Distribution Width 12.4 % (11.5-14.5); White Blood Count 10.7 K/mm3 (4.5-10.0)
[2024-03-02 13:56] LABS: Lactic Acid Reflex 1.3 mmol/L (0.7-2.0)
[2024-03-02 14:04] LABS: Alanine Aminotransferase 20 U/L (6-50); Albumin Level 4.2 g/dL (3.5-5.1); Alkaline Phosphatase 88 U/L (38-126); Anion Gap 7 mmol/L (4-12); Aspartate Amino Transferase 34 U/L (17-59); Bilirubin,Total 0.9 mg/dL (0.2-1.3); Blood Urea Nitrogen 12 mg/dL (9-20); CRP 1.4 mg/dL (<1.0); Calcium 8.9 mg/dL (8.4-10.2); Carbon Dioxide 31 mmol/L (22-30); Chloride 98 mmol/L (98-107); Estimated CRCL calculation 151 ml/min; Estimated Glomerular Filt Rate > 60; Glucose 269 mg/dL (65-110); Potassium 4.1 mmol/L (3.4-5.0); Sodium 136 mmol/L (137-145)
[2024-03-02 18:10] VITALS: BP 157/100; PULSE 87; RESP 18; O2SAT 97
[2024-03-02] MEDS: SODIUM CHLORIDE 0.9% IV 1,000 ML 125 ML IV CONT (18:10)
[2024-03-02] MEDS: MORPHINE SULFATE (*CRX) 4 MG/ML INJ IV PUSH (18:10)
--- NOTE | 2024-03-02 18:47 | ADMGEN ---
This patient, Trenton Crockett, was admitted to Medical Room 349-01. Patient/family oriented to hospital policies and general routines including ID bracelet, bed and alarms, visiting hours, pain management, procedures, bathroom and other care routines, personal items, smoking policy, room service/diet, and visiting hours. Information on how to activate the Rapid Response Team has been discussed. Patient/Family are encouraged to report perceived risks to care and to ask questions if they do not understand what they are told or what they should do.
[2024-03-02 18:53] VITALS: BMI 37.0
[2024-03-02 20:59] LABS: Glucose Point of Care 282 mg/dl (65-105)
[2024-03-02] MEDS: metroNIDAZOLE 500 MG/ISO 100ML 500 MG/100 ML BAG 100 MG IVPB (21:00)
[2024-03-02 21:18] VITALS: BP 143/65; PULSE 79; RESP 20; TEMP 37.2; O2SAT 94
--- NOTE | 2024-03-02 21:58 | PM.IMPN ---
Subjective Date/time seen: 03/02/24 21:58 Interval history: This is a 58-year-old male with a significant past medical history of who presented to the hospital for evaluation of a cyst on his buttock. Patient has history of recurrent lillian rectal abscesses with his most recent abscess being in February of 2023 where he underwent I&D with Dr. Schmidt. He follows outpatient with Dr. Schmidt and recently had a pelvic MRI which did not show any active abscess. Patient reports over last 2 days he had increased pain and swelling in the right medial gluteal region which seems to be worsening. Patient denies. Patient endorses. Workup in the hospital included a pelvic CT which showed a 2.7 x 1.0 x 1.3 cm perianal abscess, 3.1 x 1.7 x 4.1 cm mass posterior to the rectum that was cystic in stable by MRI on 03/16/2023, left inguinal hernia containing fat. Initial labs show a white blood cell count of 10.7, sodium 136, blood sugars ranging 257-280, C reactive protein 1.4. Patient was given pain medication, Rocephin, and Flagyl while in the ED. Review of Systems Review of Systems: All systems reviewed & are unremarkable except as noted in HPI and below Constitutional: Constitutional: Reports as per HPI and Reports no additional constitutional complaints Eyes: Eyes: Reports as per HPI and Reports no additional eye complaints ENT: Reports system reviewed and no additional complaints, except as documented and Reports as per HPI Cardiovascular: Cardiovascular: Reports as per HPI and Reports no additional cardiovascular complaints Respiratory: Respiratory: Reports as per HPI and Reports no additional respiratory complaints Gastrointestinal: Gastrointestinal: Reports as per HPI and Reports no additional gastrointestinal complaints Genitourinary: Genitourinary: Reports no additional male genitourinary complaints and Reports as per HPI Musculoskeletal: Musculoskeletal: Reports no additional musculoskeletal complaints and Reports as per HPI Integumentary/Breasts: Skin/Breast: Reports system reviewed and no additional complaints, except as docu and Reports as per HPI Neurologic: Reports system reviewed and no additional complaints, except as documented and Reports as per HPI Psychiatric: Psychiatric: Reports no additional psychiatric complaints and Reports as per HPI Exam Narrative: General: In no acute distress, well nourished Head: atraumatic, no encephalopathy Eyes: EOMI, PERRLA, sclera clear ENT: moist mucous membranes, nasal passages clear Neck: supple, no JVD, no adenopathy, trachea midline Cardiac: Normal S1 and S2. No murmur, gallops or friction rubs, peripheral pulses intact. Respiratory: Lungs clear to auscultation, no adventitious lung sounds Gastrointestinal: soft, non-distended, non-tender, normoactive bowel sounds. : voiding without difficulty. Extremities: moves all extremities well, no edema, good ROM, strength 5/5 Skin: clean, dry, intact. No wounds or lesions. Neuro: Alert and oriented x4, cranial nerves intact, no neuro deficits. Psych: normal mood, normal affect, interactive Objective Data Vital Signs Vital Signs: Vital Signs - 24 hr 03/02/24 12:15 03/02/24 18:10 03/02/24 21:18 Temperature 98.5 F 99.0 F Pulse Rate 97 87 79 Respiratory Rate 16 18 20 Blood Pressure 194/85 H 157/100 H 143/65 H Pulse Oximetry 95 97 94 Meds/Results Medications: Active Medications Generic Name Dose Route Start Last Admin Trade Name Freq PRN Reason Stop Dose Admin Acetaminophen 650 mg 03/02/24 17:32 Acetaminophen 325 Mg Tablet PO Q4H PRN Mild Pain (1-3) or Fever Hydrocodone Bitart/Acetaminophen 1 tab 03/02/24 17:32 03/02/24 21:03 Hydrocodone/Acetaminophen (*Crx) 5-325 Mg Tablet PO 1 tab Q4H PRN Administration Pain Rated 4-6 Sodium Chloride 1,000 mls @ 125 mls/hr 03/02/24 17:40 03/02/24 18:10 Normal Saline Iv IV CONT 125 mls/hr .Q8H AUGUST Administration Ceftriaxone Sodium 1 gm in 50
--- NOTE | 2024-03-02 22:04 | PM.IMHP ---
H&P: HPI History of Present Illness Date/Time: 03/02/24 22:04 Chief Complaint: Cyst on buttock Narrative: This is a 58-year-old male with a significant past medical history of who presented to the hospital for evaluation of a cyst on his buttock. Patient has history of recurrent lillian rectal abscesses with his most recent abscess being in February of 2023 where he underwent I&D with Dr. Schmidt. Abscess cultures from that time grew Bacteroids, fragilis, Peptostreptococcus species, and streptococcus constellatus. He was treated at that time with Zosyn and Flagyl and then switched over to meropenem for a few days with improvement in his white blood cell count. He was sent home with a 14 day course of Cipro and Flagyl. He has monitored closely by Dr. Schmidt since that time. He recently had a pelvic MRI on 02/05/2024 which did not show any active abscess. Patient reports over last 2 days he had increased pain and swelling in the right medial gluteal region which seemed to be worsening. Patient denies any fever, chills, nausea, vomiting, diarrhea, abdominal pain, chest pain, shortness of breath. Patient endorses 6/10 burning pain to perirectal area. Workup in the hospital included a pelvic CT which showed a 2.7 x 1.0 x 1.3 cm perianal abscess, 3.1 x 1.7 x 4.1 cm mass posterior to the rectum that was cystic in stable by MRI on 03/16/2023, left inguinal hernia containing fat. Initial labs show a white blood cell count of 10.7, sodium 136, blood sugars ranging 257-280, C reactive protein 1.4. Patient was given pain medication, Rocephin, and Flagyl while in the ED. Review of Systems Review of Systems: All systems reviewed & are unremarkable except as noted in HPI and below Constitutional: Constitutional: Reports as per HPI and Reports no additional constitutional complaints Eyes: Eyes: Reports as per HPI and Reports no additional eye complaints ENT: Reports system reviewed and no additional complaints, except as documented and Reports as per HPI Cardiovascular: Cardiovascular: Reports as per HPI and Reports no additional cardiovascular complaints Respiratory: Respiratory: Reports as per HPI and Reports no additional respiratory complaints Gastrointestinal: Gastrointestinal: Reports as per HPI and Reports no additional gastrointestinal complaints Genitourinary: Genitourinary: Reports no additional male genitourinary complaints and Reports as per HPI Musculoskeletal: Musculoskeletal: Reports no additional musculoskeletal complaints and Reports as per HPI Integumentary/Breasts: Skin/Breast: Reports system reviewed and no additional complaints, except as docu and Reports as per HPI Neurologic: Reports system reviewed and no additional complaints, except as documented and Reports as per HPI Psychiatric: Psychiatric: Reports no additional psychiatric complaints and Reports as per HPI [facility] Past Medical History Medical History BMI 34.0-34.9,adult Ayry infection of flexural skin DM2 (diabetes mellitus, type 2) Elevated BP without diagnosis of hypertension Elevated hemoglobin A1c History of tobacco abuse Lillian-rectal abscess Perirectal abscess Surgical History Surgical History History of incision and drainage Perirectal abscess Family History Family History Mother Cancer Father Acute myocardial infarction Social History Social History Social History: The patient is on his 2nd marriage and he has 2 children. The patient smoked in then quit smoking in went back to smoking and has not smoked for week. He was smoking a pack a cigarettes a day up until 1 week ago. 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 He denies any alcohol or marijuana or illicit drugs. Code status full code Smoking packs per day
[2024-03-02] MEDS: MORPHINE SULFATE (*CRX) 2 MG/ML INJ IV PUSH (23:21)
[2024-03-03] VITALS (12 sets, daily range): BP systolic 107–159; BP diastolic 61–87; PULSE 81–91; RESP 16–20; TEMP 35.8–36.7; O2SAT 92–96
--- NOTE | 2024-03-03 00:15 | PC.NURSE ---
Pt wasn't comfortable to let me assess abscess
[2024-03-03 05:23] LABS: Basophils Absolute Auto 0.1 K/mm3 (0.0-0.1); Basophils Percent Auto 0.7 % (0.2-1.2); Eosinophils Absolute Auto 0.1 K/mm3 (0-0.3); Eosinophils Percent Auto 1.6 % (0-4.4); Hematocrit 46.4 % (42.0-52.0); Hemoglobin 15.9 g/dL (14.0-18.0); Immature Granulocyte Absolute 0.02 K/mm3 (0.00-0.031); Immature Granulocyte Percent A 0.2 % (0-0.5); Lymphocytes Absolute Auto 2.85 K/mm3 (0.9-3.2); Lymphocytes Percent Auto 32.9 % (18.3-44.2); Mean Corpuscular HGB Conc 34.3 g/dl (32-36); Mean Corpuscular Hemoglobin 33.5 pg (26-34); Mean Corpuscular Volume 97.7 fl (80-100); Mean Platelet Volume 11.6 fl (7.4-10.4); Monocytes Absolute Auto 0.8 K/mm3 (0.1-0.6); Monocytes Percent Auto 8.9 % (2.6-8.5); Neutrophils Absolute Auto 4.8 K/mm3 (1.3-6.7); Neutrophils Percent Auto 55.7 % (45.5-73.1); Platelet Count Result 164 k/mm3 (150-375); Red Blood Count 4.75 M/mm3 (4.6-6.20); Red Cell Distribution Width 12.5 % (11.5-14.5); White Blood Count 8.7 K/mm3 (4.5-10.0)
[2024-03-03] MEDS: MORPHINE SULFATE (*CRX) 2 MG/ML INJ IV PUSH (05:24)
[2024-03-03] MEDS: metroNIDAZOLE 500 MG/ISO 100ML 500 MG/100 ML BAG 100 MG IVPB ×3 (05:25→21:55)
[2024-03-03 05:34] LABS: Alanine Aminotransferase 21 U/L (6-50); Albumin Level 3.5 g/dL (3.5-5.1); Alkaline Phosphatase 79 U/L (38-126); Anion Gap 5 mmol/L (4-12); Aspartate Amino Transferase 41 U/L (17-59); Bilirubin,Total 0.8 mg/dL (0.2-1.3); Blood Urea Nitrogen 12 mg/dL (9-20); Calcium 8.2 mg/dL (8.4-10.2); Carbon Dioxide 29 mmol/L (22-30); Chloride 102 mmol/L (98-107); Estimated CRCL calculation 151 ml/min; Estimated Glomerular Filt Rate > 60; Glucose 159 mg/dL (65-110); Potassium 4.2 mmol/L (3.4-5.0); Sodium 136 mmol/L (137-145)
[2024-03-03 08:19] LABS: Glucose Point of Care 186 mg/dl (65-105)
[2024-03-03] MEDS: SODIUM CHLORIDE 0.9% IV 1,000 ML 125 ML IV CONT ×2 (09:42→21:55)
[2024-03-03] MEDS: NICOTINE (*PBKC) 21 MG PATCH 1 PATCH TRANSDERM (09:44)
--- NOTE | 2024-03-03 10:06 | P.PNIM_ITS ---
Progress Note: A&P Assessment and Plan (1) Lillian-rectal abscess: Code(s): K61.1 - Rectal abscess Status: Acute Assessment and Plan: 03/02/24: * Pelvic CT with contrast shown a 2.7 x 1.0 x 1.3 cm perianal abscess, 3.1 x 1.7 x 4.1 cm mass posterior to the rectum that was cystic by MRI and stable from 03/16/2023, left inguinal hernia containing fat * General surgery consulted, followed by Dr. Schmidt as an outpatient * Continue Rocephin and Flagyl * Continue pain control * NPO after midnight for potential surgery 03/03/24: * Plan or I and D of perirectal abscess today with General surgery * WBC down to 8.7 today * Continue Rocephin and Flagyl for now * Ibuprofen IV added to pain regimen, will switch Morphine to Dilaudid IV as he states he gets better pain control with that versus the Morphine. [place] 5/325 ordered as well for when he is able to take po meds. (2) Pelvic mass in male: Code(s): R19.00 - Intra-abdominal and pelvic swelling, mass and lump, unspecified site Status: Acute Assessment and Plan: 03/02/24: * CT scan showed a 3.1 x 1.7 x 4.1 cm mass posterior to the rectum that was found to be cystic by MRI and stable from 03/16/2023 03/03/24: * No change (3) Benign essential HTN: Code(s): I10 - Essential (primary) hypertension Status: Acute Assessment and Plan: 03/02/24: * Blood pressure ranging 143/65 to 194/85 * Patient not on any home medications 03/03/24: * Amlodipine 5 mg ordered * Patient stopped taking his blood pressure medication at home because it was causing erectile dysfunction. He took Lisinopril in the past and can not remember the name of the other medicine he tried. He is also in between providers and has a new provider visit coming up this month. (4) DM2 (diabetes mellitus, type 2): Qualifiers: Diabetes mellitus complication detail: with dermatitis Diabetes mellitus complication status: with skin complications Diabetes mellitus senior living insulin use: without sap abap developer use Qualified Code(s): E11.620 - Type 2 diabetes mellitus with diabetic dermatitis Code(s): E11.9 - Type 2 diabetes mellitus without complications Status: Acute Assessment and Plan: 03/02/24: * Blood sugars ranging 269-280 * Last hemoglobin A1c 6.7 on 03/22/2023 * Repeat Hemoglobin A1c pending * Accu-Cheks AC and HS * Diabetic diet * Low-dose sliding scale insulin ordered * Metformin on hold * Hypoglycemic protocol in place 03/03/24: * Blood sugar 159-180 * Hemoglobin A1c still pending * No change to current treatment plan (5) Tobacco abuse: Code(s): Z72.0 - Tobacco use Status: Acute Assessment and Plan: 03/02/24: * Nicotine patch ordered 03/03/24: * No change to current treatment plan Time Spent With Patient Time with patient: 25 - 35 minutes Subjective Date/time seen: 03/03/24 10:06 Interval history: Interval history: This is a 58-year-old male with a significant past medical history of who presented to the hospital for evaluation of a cyst on his buttock. Patient has history of recurrent lillian rectal abscesses with his most recent abscess being in February of 2023 where he underwent I&D with Dr. Schmidt. Abscess cultures from that time grew Bacteroids, fragilis, Peptostreptococcus species, and streptococcus constellatus. He was treated at that time with Zosyn and Flagyl and then switched over to meropenem for a few days with improvement in his white blood cell count. He was sent home with a 14 day course of Cipro and Flagyl. He has monitored closely
--- NOTE | 2024-03-03 10:06 | PM.IMPN ---
Progress Note: A&P Assessment and Plan (1) Lillian-rectal abscess: Code(s): K61.1 - Rectal abscess Status: Acute Assessment and Plan: 03/02/24: Pelvic CT with contrast shown a 2.7 x 1.0 x 1.3 cm perianal abscess, 3.1 x 1.7 x 4.1 cm mass posterior to the rectum that was cystic by MRI and stable from 03/16/2023, left inguinal hernia containing fat General surgery consulted, followed by Dr. Schmidt as an outpatient Continue Rocephin and Flagyl Continue pain control NPO after midnight for potential surgery 03/03/24: Plan or I and D of perirectal abscess today with General surgery WBC down to 8.7 today Continue Rocephin and Flagyl for now Ibuprofen IV added to pain regimen, will switch Morphine to Dilaudid IV as he states he gets better pain control with that versus the Morphine. [place] 5/325 ordered as well for when he is able to take po meds. (2) Pelvic mass in male: Code(s): R19.00 - Intra-abdominal and pelvic swelling, mass and lump, unspecified site Status: Acute Assessment and Plan: 03/02/24: CT scan showed a 3.1 x 1.7 x 4.1 cm mass posterior to the rectum that was found to be cystic by MRI and stable from 03/16/2023 03/03/24: No change (3) Benign essential HTN: Code(s): I10 - Essential (primary) hypertension Status: Acute Assessment and Plan: 03/02/24: Blood pressure ranging 143/65 to 194/85 Patient not on any home medications 03/03/24: Amlodipine 5 mg ordered Patient stopped taking his blood pressure medication at home because it was causing erectile dysfunction. He took Lisinopril in the past and can not remember the name of the other medicine he tried. He is also in between providers and has a new provider visit coming up this month. (4) DM2 (diabetes mellitus, type 2): Qualifiers: Diabetes mellitus complication detail: with dermatitis Diabetes mellitus complication status: with skin complications Diabetes mellitus fpc insulin use: without regional intermodal truck driver use Qualified Code(s): E11.620 - Type 2 diabetes mellitus with diabetic dermatitis Code(s): E11.9 - Type 2 diabetes mellitus without complications Status: Acute Assessment and Plan: 03/02/24: Blood sugars ranging 269-280 Last hemoglobin A1c 6.7 on 03/22/2023 Repeat Hemoglobin A1c pending Accu-Cheks AC and HS Diabetic diet Low-dose sliding scale insulin ordered Metformin on hold Hypoglycemic protocol in place 03/03/24: Blood sugar 159-180 Hemoglobin A1c still pending No change to current treatment plan (5) Tobacco abuse: Code(s): Z72.0 - Tobacco use Status: Acute Assessment and Plan: 03/02/24: Nicotine patch ordered 03/03/24: No change to current treatment plan Time Spent With Patient Time with patient: 25 - 35 minutes Subjective Date/time seen: 03/03/24 10:06 Interval history: Interval history: This is a 58-year-old male with a significant past medical history of who presented to the hospital for evaluation of a cyst on his buttock. Patient has history of recurrent lillian rectal abscesses with his most recent abscess being in February of 2023 where he underwent I&D with Dr. Schmidt. Abscess cultures from that time grew Bacteroids, fragilis, Peptostreptococcus species, and streptococcus constellatus. He was treated at that time with Zosyn and Flagyl and then switched over to meropenem for a few days with improvement in his white blood cell count. He was sent home with a 14 day course of Cipro and Flagyl. He has monitored closely by Dr. Schmidt since that time. He recently had a pelvic MRI on 02/05/2024 which did not show any active abscess. Patient reports over last 2 days he had increased pain and swelling in the right medial gluteal region which seemed to be worsening. Patient denies any fever, chills, nausea, vomiting, diarrhea, abdominal pain, chest pain, shortness of breath. Patient endorses 6/10 burning pain to perirectal area. Workup in the hospi
--- NOTE | 2024-03-03 10:19 | PM.CNGS ---
Assessment and Plan Assessment and plan (1) Indu-rectal abscess: Code(s): K61.1 - Rectal abscess Status: Acute Assessment and Plan: The patient has CT evidence of a 2.7 cm perirectal abscess. On examination, at the posterior perianal area there is an indurated and very tender area without obvious superficial fluctuance. He had mild leukocytosis on admission with his WBC count at 10,700, which has normalized today. He is currently on IV ceftriaxone and metronidazole for antibiotic coverage. We would recommend proceeding with incision and drainage of perirectal abscess in the OR with anesthesia. Description of the procedure, risks, benefits, alternatives, and expected outcomes were discussed with the patient. He agrees to proceed. Will keep him NPO for now with IV fluids. He will be added to the surgery schedule today. (2) DM2 (diabetes mellitus, type 2): Qualifiers: Diabetes mellitus terminal operations manager insulin use: without skilled nursing use Diabetes mellitus complication status: with skin complications Diabetes mellitus complication detail: with dermatitis Qualified Code(s): E11.620 - Type 2 diabetes mellitus with diabetic dermatitis Code(s): E11.9 - Type 2 diabetes mellitus without complications Status: Acute Assessment and Plan: Discussed the importance of compliance with medications and monitoring his glucose. We discussed the correlation of uncontrolled diabetes and infections/healing. Hgb A1C is pending. Management per Hospitalist. (3) Tobacco abuse: Code(s): Z72.0 - Tobacco use Status: Acute Assessment and Plan: Encourage cessation. Plan I have discussed the patient's case and plan of care with Dr. Schmidt. History of Present Illness Consult details Consult date: 03/03/24 Reason for consult: other (Perirectal abscess) Requesting physician: Tobias Pennington MD Narrative: This is a 58-year-old diabetic man who presented to the ER yesterday with complaints of perirectal pain and swelling. He has been seen by our service for a perirectal abscess in the past. He had a large right-sided perirectal abscess that required incision and drainage by Dr. Schmidt in February of 2023. He was actually taken back to the OR postop day 5 for exploration of perirectal abscess wound and drainage of supralevator perirectal abscess. He eventually healed from this and began having symptoms again at the end of December. He was seen in the ER on 01/22/[address] scan that showed no definite perirectal abscess detected. There is an indeterminate soft tissue nodule posterior to the rectum that is smaller in size than previous CT. He was seen again by Dr. Schmidt as an outpatient about a month ago and had an outpatient MRI of the pelvis. This showed a cystic multiloculated fluid collection posterior to the rectum most consistent with a tailgut cyst, but no abscess. At that time, he was no longer having any perirectal pain or swelling and no abscess on exam. About 3 days ago, he developed perirectal pain and swelling. The pain was aggravated by sitting. Due to concerns of recurrent perirectal abscess, he presented back to the ER for evaluation yesterday. [place] [address], glucose 280. Pelvis CT showed a 2.7 x 1.0 x 1.3 cm perianal abscess. Again seen is 3.1 x 1.7 x 4.1 cm mass posterior to the rectum stable from 03/16/2023. He was admitted to the hospitalist and started on IV antibiotics. Hemoglobin A1c pending. White blood cell count down to 8000 today. Patient is seen on the medical floor as we were consulted for the perirectal abscess. He denies any drainage. Still having a fair amount of pain. Review of Systems Review of Systems: All systems reviewed & are unremarkable except as noted in HPI and below PMFSH Past Medical History Medical History BMI 34.0-34.9,adult Yary infection of flexural skin DM2 (diabetes mellitus,
[2024-03-03] MEDS: MORPHINE SULFATE (*CRX) 2 MG/ML INJ 1 MG IV PUSH ×2 (10:41→13:40)
[2024-03-03 12:09] LABS: Glucose Point of Care 153 mg/dl (65-105)
--- NOTE | 2024-03-03 12:23 | ECG_ITS ---
Test Date: 2024-03-03 13:41:26 Measurements Intervals [place] Rate: 77 P: 35 KS: 172 QRS: 20 QRSD: 114 T: 35 QT: 376 QTc: 427 Interpretive Statements SINUS RHYTHM INTRAVENTRICULAR CONDUCTION DELAY CONSIDER INFERIOR INFARCT, AGE INDETERMINATE ABNORMAL ECG No previous ECG available for comparison Electronically Signed On 03-03-2024 13:44:06 CDT by Gurpreet Chavez D.O.
[2024-03-03] MEDS: amLODIPine BESYLATE 5 MG TABLET PO (12:25)
[2024-03-03] MEDS: cefTRIAXone 2 GM/NS 100 ML 2 GM/100 ML BAG IVPB (12:25)
--- NOTE | 2024-03-03 15:33 | WPDANESEPPF ---
Anes - Initial Pre Proc Eval Procedure: Operation Date: 03/03/24 16:30 Proposed Procedures p Incision And Drainage Indu-Rectal Abscess - Zachary Schmidt MD Date/Time: 03/03/24 15:33 Surgeon: Brayan Pre Op Diagnosis: Perirectal Abscess Patient Data Age: 58 Gender: M Height: 1.8 m Weight: 120.6 kg Last Vital Signs Temp 36.7 C 03/03/24 15:04 Pulse 86 03/03/24 15:04 Resp 18 03/03/24 15:04 BP 150/85 H 03/03/24 15:04 Pulse Ox 96 03/03/24 15:04 O2 Del Method Room Air 03/03/24 15:04 Allergies Allergy/AdvReac Type Severity Reaction Status Date / Time azithromycin Allergy Hives Verified 02/06/24 14:54 Home Medications Medication Instructions Recorded Confirmed Type blood sugar diagnostic (OneTouch #1 pkg 03/25/23 03/02/24 Rx Verio test strips) blood-glucose meter (OneTouch #1 pkg 03/25/23 03/02/24 Rx Verio Flex Meter) lancets 30 gauge (OneTouch Delica #1 pkg 03/25/23 03/02/24 Rx Plus Lancet) blood-glucose sensor (FreeStyle #2 ea 06/21/23 03/02/24 Rx Jos 3 Sensor device) metformin 1,000 mg tablet 1,000 mg PO BID #30 tabs 02/07/24 03/02/24 Rx Laboratory Tests 03/02/24 03/03/24 03/03/24 20:54 05:07 08:16 WBC 8.7 K/mm3 (4.5-10.0) RBC 4.75 M/mm3 (4.6-6.20) Hgb 15.9 g/dL (14.0-18.0) Hct 46.4 % (42.0-52.0) MCV 97.7 fl (80-100) MCH 33.5 pg (26-34) MCHC 34.3 g/dl (32-36) RDW 12.5 % (11.5-14.5) Plt Count 164 k/mm3 (150-375) MPV 11.6 H fl (7.4-10.4) Immature Gran % (Auto) 0.2 % (0-0.5) Neut % (Auto) 55.7 % (45.5-73.1) Lymph % (Auto) 32.9 % (18.3-44.2) [place] % (Auto) 8.9 H % (2.6-8.5) Eos % (Auto) 1.6 % (0-4.4) Baso % (Auto) 0.7 % (0.2-1.2) Lymph # (Auto) 2.85 K/mm3 (0.9-3.2) [place] # (Auto) 0.8 H K/mm3 (0.1-0.6) Eos # (Auto) 0.1 K/mm3 (0-0.3) Baso # (Auto) 0.1 K/mm3 (0.0-0.1) Abs Immat Gran (auto) 0.02 K/mm3 (0.00-0.031) Absolute Neuts (auto) 4.8 K/mm3 (1.3-6.7) Absolute Nucleated RBC 0.000 K/mm3 (0.0-0.012) Nucleated RBC % 0.0 % (0.0-0.2) Sodium 136 L mmol/L (137-145) Potassium 4.2 mmol/L (3.4-5.0) Chloride 102 mmol/L (98-107) Carbon Dioxide 29 mmol/L (22-30) Anion Gap 5 mmol/L (4-12) BUN 12 mg/dL (9-20) Creatinine 0.60 L mg/dL (0.7-1.3) Estim Creat Clear Calc 151 ml/min Estimated GFR > 60 (59 - ) Glucose 159 H mg/dL (65-110) POC Capillary Glucose 282 H mg/dl 186 H mg/dl (65-105) (65-105) Calcium 8.2 L mg/dL (8.4-10.2) Total Bilirubin 0.8 mg/dL (0.2-1.3) AST 41 U/L (17-59) ALT 21 U/L (6-50) Alkaline Phosphatase 79 U/L (38-126) Total Protein 7.0 g/dL (6.3-8.2) Albumin 3.5 g/dL (3.5-5.1) 03/03/24 12:05 WBC RBC Hgb Hct MCV MCH MCHC RDW Plt Count MPV Immature Gran % (Auto) Neut % (Auto) Lymph % (Auto) [place] % (Auto) Eos % (Auto) Baso % (Auto) Lymph # (Auto) [place] # (Auto) Eos # (Auto) Baso # (Auto) Abs Immat Gran (auto) Absolute Neuts (auto) Absolute Nucleated RBC Nucleated RBC % Sodium Potassium Chloride Carbon Dioxide Anion Gap BUN Creatinine Estim Creat Clear Calc Estimated GFR Glucose POC Capillary Glucose 153 H mg/dl (65-105) Calcium Total Bilirubin AST ALT Alkaline Phosphatase Total Protein Albumin Patient hx anesthesia problems: none Family hx anesthesia problems: none Results Review: All pre-
[2024-03-03 15:46] LABS: Glucose Point of Care 145 mg/dl (65-105)
[2024-03-03] MEDS: LACTATED RINGERS 1,000 ML 30 ML IV CONT (16:00)
--- NOTE | 2024-03-03 16:22 | WPDHPUPDATE1 ---
History and Physical Update Update Date/Time: 03/03/24 16:22 History and Physical has been reviewed, including an updated exam of the patient. There are NO changes in the patient's condition. Risks, benefits, and alternatives have been discussed and questions answered. Patient agrees to proceed with procedure.
[2024-03-03] MEDS: BUPivacaine HCL 0.5% PF 30 ML VIAL 10 ML INFILTRATE (17:03)
[2024-03-03] MEDS: LIDO 1%/EPINEPHRINE 1:100,000 20 ML VIAL 10 ML INFILTRATE (17:03)
--- NOTE | 2024-03-03 17:18 | W.PM.PROC2 ---
Procedure Note - Detailed Date of Procedure 03/03/24 Pre-op Diagnosis Perirectal Abscess Post-op Diagnosis Same Procedure Performed Incision and drainage of perirectal abscess Surgeon aZchary Schmidt MD Field Care Advocate [facility] [place] Anesthesia General Indications Patient is a 58-year-old gentleman who is a [id number] diabetic. He previously had a perirectal abscess several months ago that was drained it was very large. That wound had completely healed. He was admitted to the hospital yesterday for a new lillian rectal abscess more posteriorly confirmed by CT scan. Findings Patient had a perirectal abscess located approximately the 6 o'clock position of the patient in lithotomy position. This was posterior midline. This was separate from the scar from the right lateral perirectal abscess drainage scar. The abscess drained approximately 5cc of pus with drainage. It did not track laterally to either side. Is a fairly simple abscess requiring fairly simple incision and drainage. Description of Procedure After informed consent was obtained patient brought to the operating room was placed in the lithotomy position on operating table. He was given some anesthesia and then the perianal and perirectal region was then prepped and draped usual sterile fashion. Time-out was then performed correctly identifying the patient as well as procedure to be performed. He was already on scheduled IV antibiotics. I then palpated the posterior perianal region there was a fluctuant area measuring about 2cm at the 6 o'clock position of the patient in lithotomy position.. A #11 Blade scalpel was then used to incise the most fluctuant portion of the abscess vertically. [id number] of pus drained from the abscess immediately. I then obtained a culture swab of the abscess cavity sent to microbiology for Gram stain and aerobic and anaerobic culture. I then placed a Maddy clamp into the abscess cavity and spread to break down any loculations. There did not seem to be any tracking of the abscess cavity to either side laterally. I then irrigated out the abscess cavity sterile saline solution. The wound was then packed tightly with quarter-inch iodoform gauze to achieve hemostasis. There is then cleaned and a sterile dressing was applied. 1% lidocaine mixed with 0.5% Marcaine with some epinephrine was injected around the incision for postoperative pain relief. The patient tolerated the procedure well no complications. All sponges, needles, and instrument counts were correct at the end procedure. EBL was _ 10 __cc. The patient was awakened and taken to recovery in stable and satisfactory condition. Implants None Estimated Blood Loss 10 Urine Output 400 Drains No Packing Yes (Approximately 2ft of quarter-inch iodoform gauze) Pathology Yes (Culture swab sent to microbiology for Gram stain and aerobic and anaerobic cultures) Complications No immediate complications Condition Stable Disposition PACU [facility] Billing Surgery - Charge Forward: Surgery Billing
[2024-03-03 17:22] LABS: Glucose Point of Care 141 mg/dl (65-105)
[2024-03-03 20:04] LABS: Glucose Point of Care 155 mg/dl (65-105)
[2024-03-03] MEDS: HYDROmorphone HCL INJ (*CRX) 1 MG/ML SYR 0.5 MG IV PUSH (21:56)
[2024-03-04] MEDS: HYDROmorphone HCL INJ (*CRX) 1 MG/ML SYR 0.5 MG IV PUSH ×2 (03:21→08:26)
[2024-03-04] MEDS: metroNIDAZOLE 500 MG/ISO 100ML 500 MG/100 ML BAG 100 MG IVPB ×2 (05:49→14:22)
[2024-03-04] MEDS: SODIUM CHLORIDE 0.9% IV 1,000 ML 125 ML IV CONT (05:51)
[2024-03-04 06:07] LABS: Basophils Absolute Auto 0.1 K/mm3 (0.0-0.1); Basophils Percent Auto 0.7 % (0.2-1.2); Eosinophils Absolute Auto 0.2 K/mm3 (0-0.3); Eosinophils Percent Auto 1.6 % (0-4.4); Hematocrit 47.5 % (42.0-52.0); Hemoglobin 15.8 g/dL (14.0-18.0); Immature Granulocyte Absolute 0.03 K/mm3 (0.00-0.031); Immature Granulocyte Percent A 0.3 % (0-0.5); Lymphocytes Absolute Auto 2.71 K/mm3 (0.9-3.2); Lymphocytes Percent Auto 25.8 % (18.3-44.2); Mean Corpuscular HGB Conc 33.3 g/dl (32-36); Mean Corpuscular Hemoglobin 32.5 pg (26-34); Mean Corpuscular Volume 97.7 fl (80-100); Mean Platelet Volume 11.1 fl (7.4-10.4); Monocytes Absolute Auto 0.8 K/mm3 (0.1-0.6); Monocytes Percent Auto 7.9 % (2.6-8.5); Neutrophils Absolute Auto 6.7 K/mm3 (1.3-6.7); Neutrophils Percent Auto 63.7 % (45.5-73.1); Platelet Count Result 167 k/mm3 (150-375); Red Blood Count 4.86 M/mm3 (4.6-6.20); Red Cell Distribution Width 12.3 % (11.5-14.5); White Blood Count 10.5 K/mm3 (4.5-10.0)
--- NOTE | 2024-03-04 07:55 | P.PNIM_ITS ---
Progress Note: A&P Assessment and Plan (1) Lillian-rectal abscess: Code(s): K61.1 - Rectal abscess Status: Acute Assessment and Plan: 03/02/24: * Pelvic CT with contrast shown a 2.7 x 1.0 x 1.3 cm perianal abscess, 3.1 x 1.7 x 4.1 cm mass posterior to the rectum that was cystic by MRI and stable from 03/16/2023, left inguinal hernia containing fat * General surgery consulted, followed by Dr. Schmidt as an outpatient * Continue Rocephin and Flagyl * Continue pain control * NPO after midnight for potential surgery 03/03/24: * Plan or I and D of perirectal abscess today with General surgery * WBC down to 8.7 today * Continue Rocephin and Flagyl for now * Ibuprofen IV added to pain regimen, will switch Morphine to Dilaudid IV as he states he gets better pain control with that versus the Morphine. [place] 5/325 ordered as well for when he is able to take po meds. 03/04/24: * Post op day 1 from an I and D of perirectal abscess. OR dressing with packing in place * General surgery following * Continue Rocephin and Flagyl * Continue pain control (2) Pelvic mass in male: Code(s): R19.00 - Intra-abdominal and pelvic swelling, mass and lump, unspecified site Status: Acute Assessment and Plan: 03/02/24: * CT scan showed a 3.1 x 1.7 x 4.1 cm mass posterior to the rectum that was found to be cystic by MRI and stable from 03/16/2023 03/03/24: * No change (3) Benign essential HTN: Code(s): I10 - Essential (primary) hypertension Status: Acute Assessment and Plan: 03/02/24: * Blood pressure ranging 143/65 to 194/85 * Patient not on any home medications 03/03/24: * Amlodipine 5 mg ordered * Patient stopped taking his blood pressure medication at home because it was causing erectile dysfunction. He took Lisinopril in the past and can not remember the name of the other medicine he tried. He is also in between providers and has a new provider visit coming up this month. 03/04/24: * Blood pressure ranging 136/78-148/81 * Will increase Amlodipine to 7.5 mg today (4) DM2 (diabetes mellitus, type 2): Qualifiers: Diabetes mellitus complication detail: with dermatitis Diabetes mellitus complication status: with skin complications Diabetes mellitus long t erm insulin use: without terminal worker use Qualified Code(s): E11.620 - Type 2 diabetes mellitus with diabetic dermatitis Code(s): E11.9 - Type 2 diabetes mellitus without complications Status: Acute Assessment and Plan: 03/02/24: * Blood sugars ranging 269-280 * Last hemoglobin A1c 6.7 on 03/22/2023 * Repeat Hemoglobin A1c pending * Accu-Cheks AC and HS * Diabetic diet * Low-dose sliding scale insulin ordered * Metformin on hold * Hypoglycemic protocol in place 03/03/24: * Blood sugar 159-180 * Hemoglobin A1c still pending * No change to current treatment plan 03/04/24: * Blood glucose 141-155 * Hgb A1C still pending * No change to current treatment plan (5) Tobacco abuse: Code(s): Z72.0 - Tobacco use Status: Acute Assessment and Plan: 03/02/24: * Nicotine patch ordered 03/03/24: * No change to current treatment plan Time Spent With Patient Time with patient: 25 - 35 minutes Subjective Date/time seen: 03/04/24 07:55 Interval history: Interval history: This is a 58-year-old male with a significant past medical history of who presented to the hospital for evaluation of a cyst on his buttock. Patient has history of recurrent lillian rectal abscesses with his most re
--- NOTE | 2024-03-04 07:55 | PM.IMPN ---
Progress Note: A&P Assessment and Plan (1) Lillian-rectal abscess: Code(s): K61.1 - Rectal abscess Status: Acute Assessment and Plan: 03/02/24: Pelvic CT with contrast shown a 2.7 x 1.0 x 1.3 cm perianal abscess, 3.1 x 1.7 x 4.1 cm mass posterior to the rectum that was cystic by MRI and stable from 03/16/2023, left inguinal hernia containing fat General surgery consulted, followed by Dr. Schmidt as an outpatient Continue Rocephin and Flagyl Continue pain control NPO after midnight for potential surgery 03/03/24: Plan or I and D of perirectal abscess today with General surgery WBC down to 8.7 today Continue Rocephin and Flagyl for now Ibuprofen IV added to pain regimen, will switch Morphine to Dilaudid IV as he states he gets better pain control with that versus the Morphine. [place] 5/325 ordered as well for when he is able to take po meds. 03/04/24: Post op day 1 from an I and D of perirectal abscess. OR dressing with packing in place General surgery following Continue Rocephin and Flagyl Continue pain control (2) Pelvic mass in male: Code(s): R19.00 - Intra-abdominal and pelvic swelling, mass and lump, unspecified site Status: Acute Assessment and Plan: 03/02/24: CT scan showed a 3.1 x 1.7 x 4.1 cm mass posterior to the rectum that was found to be cystic by MRI and stable from 03/16/2023 03/03/24: No change (3) Benign essential HTN: Code(s): I10 - Essential (primary) hypertension Status: Acute Assessment and Plan: 03/02/24: Blood pressure ranging 143/65 to 194/85 Patient not on any home medications 03/03/24: Amlodipine 5 mg ordered Patient stopped taking his blood pressure medication at home because it was causing erectile dysfunction. He took Lisinopril in the past and can not remember the name of the other medicine he tried. He is also in between providers and has a new provider visit coming up this month. 03/04/24: Blood pressure ranging 136/78-148/81 Will increase Amlodipine to 7.5 mg today (4) DM2 (diabetes mellitus, type 2): Qualifiers: Diabetes mellitus complication detail: with dermatitis Diabetes mellitus complication status: with skin complications Diabetes mellitus terminal worker insulin use: without terminal worker use Qualified Code(s): E11.620 - Type 2 diabetes mellitus with diabetic dermatitis Code(s): E11.9 - Type 2 diabetes mellitus without complications Status: Acute Assessment and Plan: 03/02/24: Blood sugars ranging 269-280 Last hemoglobin A1c 6.7 on 03/22/2023 Repeat Hemoglobin A1c pending Accu-Cheks AC and HS Diabetic diet Low-dose sliding scale insulin ordered Metformin on hold Hypoglycemic protocol in place 03/03/24: Blood sugar 159-180 Hemoglobin A1c still pending No change to current treatment plan 03/04/24: Blood glucose 141-155 Hgb A1C still pending No change to current treatment plan (5) Tobacco abuse: Code(s): Z72.0 - Tobacco use Status: Acute Assessment and Plan: 03/02/24: Nicotine patch ordered 03/03/24: No change to current treatment plan Time Spent With Patient Time with patient: 25 - 35 minutes Subjective Date/time seen: 03/04/24 07:55 Interval history: Interval history: This is a 58-year-old male with a significant past medical history of who presented to the hospital for evaluation of a cyst on his buttock. Patient has history of recurrent lillian rectal abscesses with his most recent abscess being in February of 2023 where he underwent I&D with Dr. Schmidt. Abscess cultures from that time grew Bacteroids, fragilis, Peptostreptococcus species, and streptococcus constellatus. He was treated at that time with Zosyn and Flagyl and then switched over to meropenem for a few days with improvement in his white blood cell count. He was sent home with a 14 day course of Cipro and Flagyl. He has monitored closely by Dr. Schmidt since that time. He recently had a pelvic MRI on
[2024-03-04 07:59] LABS: Glucose Point of Care 143 mg/dl (65-105)
[2024-03-04] MEDS: amLODIPine BESYLATE 2.5 MG TABLET 7.5 MG PO (08:26)
[2024-03-04] MEDS: NICOTINE (*PBKC) 21 MG PATCH 1 PATCH TRANSDERM (08:26)
[2024-03-04 08:27] VITALS: BP 141/86; PULSE 73; RESP 16; TEMP 36.4; O2SAT 95
--- NOTE | 2024-03-04 11:17 | PM.PNGS ---
Progress Note: A&P Assessment and Plan (1) Indu-rectal abscess: Code(s): K61.1 - Rectal abscess Status: Acute Assessment and Plan: Postop day 1 following incision and drainage of simple posterior perirectal abscess. Packing was removed today. Will start applying just a cover dressing with gauze as needed for any drainage. Will also start doing sitz baths. Continue antibiotics. Cultures obtained during surgery and are pending. Will try to transition to oral pain medication today and start increasing activity. If his pain is controlled on oral analgesics later today, then he could be discharged from a surgical standpoint on oral antibiotics and follow-up with Dr. Schmidt in 2 weeks in the office. (2) Tobacco abuse: Code(s): Z72.0 - Tobacco use Status: Acute Assessment and Plan: Patient quit smoking about a year ago after his last perirectal abscess for 6 months and then started vaping. We discussed again for him to quit smoking, and he states he wants to try and quit again. (3) DM2 (diabetes mellitus, type 2): Qualifiers: Diabetes mellitus complication detail: with dermatitis Diabetes mellitus complication status: with skin complications Diabetes mellitus mcc insulin use: without extermination inspector use Qualified Code(s): E11.620 - Type 2 diabetes mellitus with diabetic dermatitis Code(s): E11.9 - Type 2 diabetes mellitus without complications Status: Acute Plan I have discussed the patient's case and plan of care with Dr. Schmidt. Subjective Subjective Date/Time Seen: 03/04/24 09:17 Patient reports: no new complaints, tolerating a regular diet, no flatus, no bowel movement and afebrile Interval history: Patient seen today after receiving IV Dilaudid for his perirectal pain. He feels like the pressure type of pain he was feeling yesterday has improved after surgery, but he continues to have pain. No nausea or vomiting. Exam Narrative: Dressing removed with minimal dried bloody drainage. Perirectal abscess with packing, which I removed at the bedside. No purulent drainage, only scant bloody drainage at the incision. Induration and erythema improved. Objective Data Vital Signs Vital Signs: Vital Signs - 24 hr 03/03/24 14:20 03/03/24 15:04 03/03/24 17:14 Temperature 97.1 F L 98.0 F 97.7 F Pulse Rate 82 86 90 Respiratory Rate 18 18 18 Blood Pressure 159/87 H 150/85 H 108/61 Pulse Oximetry 95 96 92 Oxygen Delivery Room Air Simple Face Mask Oxygen Flow Rate 10 03/03/24 17:15 03/03/24 17:30 03/03/24 17:45 Temperature Pulse Rate 85 86 84 Respiratory Rate 19 19 20 Blood Pressure 107/64 113/65 122/73 Pulse Oximetry 93 93 94 Oxygen Delivery Simple Face Mask Simple Face Mask Room Air Oxygen Flow Rate 10 10 03/03/24 18:00 03/03/24 18:15 03/03/24 18:25 Temperature 96.4 F L Pulse Rate 91 88 84 Respiratory Rate 18 16 16 Blood Pressure 145/78 H 141/77 H 142/75 H Pulse Oximetry 93 92 94 Oxygen Delivery Room Air Room Air Oxygen Flow Rate 03/03/24 18:44 03/03/24 19:01 03/03/24 20:00 Temperature 96.5 F L 96.4 F L Pulse Rate 85 86 Respiratory Rate 16 18 Blood Pressure 143/76 H 148/81 H Pulse Oximetry 94 93 Oxygen Delivery Room Air Oxygen Flow Rate 03/03/24 20:26 03/04/24 08:00 03/04/24 08:27 Temperature 97.5 F L 97.6 F Pulse Rate 81 73 Respiratory Rate 20 16 Blood Pressure 136/78 141/86 H Pulse Oximetry 93 95 Oxygen Delivery Room Air Oxygen Flow Rate Intake/Output Intake/Output: Intake & Output 03/01/24 03/02/24 03/03/24 03/04/24 23:59 23:59 23:59 23:59 Intake Total 4140 1591.7 Output Total 1100 Balance 3040 1591.7 Meds/Results Medications: Active Medications Generic Name Dose Route Start Last Admin Trade Name Freq PRN Reason Stop Dose Admin Acetaminophen 650 mg 03/02/24 17:32 Acetaminophen 325 Mg Tablet PO Q4H PRN Mild Pain (1-3) or Fever Hydrocodone Bitart/Aceta
[2024-03-04] MEDS: cefTRIAXone 2 GM/NS 100 ML 2 GM/100 ML BAG IVPB (11:52)
[2024-03-04] MEDS: DOCUSATE SODIUM 100 MG CAPSULE PO (11:52)
[2024-03-04 11:58] LABS: Glucose Point of Care 176 mg/dl (65-105)
[2024-03-04 12:21] LABS: Hemoglobin A1C 9.5 % (<5.7)
[2024-03-04] MEDS: HYDROcodone/acetaminophen (*CRX) 10-325 MG TABLET 1 TAB PO (12:55)
--- NOTE | 2024-03-04 14:31 | P.PNAN_ITS ---
Anes - Prog Note Post-Op Date/Time: 03/04/24 14:31 Cardiovascular status: normal Respiratory status: normal Airway patency: baseline Mental status: baseline Post-Op hydration status: normal Vital Signs: Last Vital Signs Temp 97.6 F 03/04/24 08:27 Pulse 73 03/04/24 08:27 Resp 16 03/04/24 08:27 BP 141/86 H 03/04/24 08:27 Pulse Ox 95 03/04/24 08:27 O2 Del Method Room Air 03/04/24 08:00 O2 Flow Rate 10 03/03/24 17:30 Pain Score (VAS): 0/10 I/O: Intake & Output 03/03/24 03/04/24 03/04/24 23:59 07:59 15:59 Intake Total 1400 1091.7 840 Output Total 400 650 Balance 1000 1091.7 190 Laboratory Tests 03/04/24 05:58 03/03/24 05:07 03/02/24 03/03/24 03/03/24 13:38 15:22 17:20 WBC RBC Hgb Hct MCV MCH MCHC RDW Plt Count MPV Immature Gran % (Auto) Neut % (Auto) Lymph % (Auto) [place] % (Auto) Eos % (Auto) Baso % (Auto) Lymph # (Auto) [place] # (Auto) Eos # (Auto) Baso # (Auto) Abs Immat Gran (auto) Absolute Neuts (auto) Absolute Nucleated RBC Nucleated RBC % POC Capillary Glucose 145 H 141 H Hemoglobin A1c 9.5 H 03/03/24 03/04/24 03/04/24 20:02 05:58 07:54 WBC 10.5 H RBC 4.86 Hgb 15.8 Hct 47.5 MCV 97.7 MCH 32.5 MCHC 33.3 RDW 12.3 Plt Count 167 MPV 11.1 H Immature Gran % (Auto) 0.3 Neut % (Auto) 63.7 Lymph % (Auto) 25.8 [place] % (Auto) 7.9 Eos % (Auto) 1.6 Baso % (Auto) 0.7 Lymph # (Auto) 2.71 [place] # (Auto) 0.8 H Eos # (Auto) 0.2 Baso # (Auto) 0.1 Abs Immat Gran (auto) 0.03 Absolute Neuts (auto) 6.7 Absolute Nucleated RBC 0.000 Nucleated RBC % 0.0 POC Capillary Glucose 155 H 143 H Hemoglobin A1c 03/04/24 11:53 WBC RBC Hgb Hct MCV MCH MCHC RDW Plt Count MPV Immature Gran % (Auto) Neut % (Auto) Lymph % (Auto) [place] % (Auto) Eos % (Auto) Baso % (Auto) Lymph # (Auto) [place] # (Auto) Eos # (Auto) Baso # (Auto) Abs Immat Gran (auto) Absolute Neuts (auto) Absolute Nucleated RBC Nucleated RBC % POC Capillary Glucose 176 H Hemoglobin A1c Microbiology 03/03/24 16:50 Abscess Anaerobic Culture - Preliminary Post-procedural complaints: none Patient Feedback: Patient satisfied with anesthetic care.
[2024-03-04 15:03] VITALS: BP 141/70; PULSE 74; RESP 18; TEMP 36.6; O2SAT 96
--- NOTE | 2024-03-04 16:30 | PC.NURSE ---
Pt informed that he would not be discharging until tomorrow morning. Pt was very unhappy and asked for someone above my hospitalist . I contacted charge nurse and the MD covering for the hospitalist. Discharge orders were put in and surgery ok for when patient could go back to work. Pt was pleased with being able to go home.
[2024-03-04 16:56] LABS: Glucose Point of Care 148 mg/dl (65-105)
--- NOTE | 2024-03-04 17:27 | PM.DS ---
DS: Admitting Diagnosis Discharge Date 03/04/2024 DS: Summary Time Spent with Patient Time attestation: Total time spent providing and/or coordinating discharge services: DS: Data Data Completed and Pending Labs on day of discharge: Labs from last 24 hours 03/04/24 03/04/24 03/04/24 16:53 11:53 07:54 WBC RBC Hgb Hct MCV MCH MCHC RDW Plt Count MPV Immature Gran % (Auto) Neut % (Auto) Lymph % (Auto) [place] % (Auto) Eos % (Auto) Baso % (Auto) Lymph # (Auto) [place] # (Auto) Eos # (Auto) Baso # (Auto) Abs Immat Gran (auto) Absolute Neuts (auto) Absolute Nucleated RBC Nucleated RBC % POC Capillary Glucose 148 H 176 H 143 H Hemoglobin A1c 03/04/24 03/03/24 03/02/24 05:58 20:02 13:38 WBC 10.5 H RBC 4.86 Hgb 15.8 Hct 47.5 MCV 97.7 MCH 32.5 MCHC 33.3 RDW 12.3 Plt Count 167 MPV 11.1 H Immature Gran % (Auto) 0.3 Neut % (Auto) 63.7 Lymph % (Auto) 25.8 [place] % (Auto) 7.9 Eos % (Auto) 1.6 Baso % (Auto) 0.7 Lymph # (Auto) 2.71 [place] # (Auto) 0.8 H Eos # (Auto) 0.2 Baso # (Auto) 0.1 Abs Immat Gran (auto) 0.03 Absolute Neuts (auto) 6.7 Absolute Nucleated RBC 0.000 Nucleated RBC % 0.0 POC Capillary Glucose 155 H Hemoglobin A1c 9.5 H Preliminary micro results at discharge 03/03/24 16:50 Anaerobic Culture - Preliminary Abscess Discharge Plan Discharge Attending physician on discharge: Katherin Hyman Consulting providers: Mamadou Krueger; Dagmar Weinstein; Zachary Schmidt; Pina Jansen; Ajith Mcdonough V.; Gurpreet Chavez; Oz Sorenson; Rito Cox Jr. Discharging Clinician: Katherin Hyman Patient Disposition: Home, Self-Care Activity: as tolerated Diet: heart healthy Discharge Instructions: Patient to follow discharge care instructions from his surgeon and follow up as scheduled, patient to follow up with his primary care provider as soon as possible, patient is instructed if any symptoms worsen to go to nearest ER. Patient Instructions: Antibiotic Form, Amoxicillin/Clavulanate Potassium (By mouth), How to Stop Smoking (DC), Pain Management (DC), Sitz Bath (DC), Rectal Abscess (DC), Incision and Drainage (DC) Stand Alone Forms: General Discharge Information, Work/School Release IP Follow-up/Referrals: Mamadou Krueger MD [Physician] - SchmidtZachary MD [Physician] - Discharge Medications: New hydrocodone-acetaminophen 5-325 mg Tablet 1 tablet PO Q4H PRN (Reason: Pain Rated 4-6) Qty: 10 0RF amlodipine 2.5 mg Tablet 7.5 mg PO QAM Qty: 90 0RF nicotine [Nicoderm CQ] 21 mg/24 hr Patch 24 Hour 1 patch transdermal DAILY Qty: 28 0RF docusate sodium 100 mg Capsule 100 mg PO Q12HR Qty: 30 0RF amoxicillin-pot clavulanate [Augmentin] 500-125 mg tablet 1 tablet PO Q8H Qty: 21 0RF Continued metformin 1,000 mg tablet 1,000 mg PO BID Qty: 30 1RF No Action (DME) FreeStyle Jos 3 Sensor Device See Rx Instructions .Route Qty: 2 0RF Rx Instructions: As directed (DME) blood-glucose meter [OneTouch Verio Flex meter] [facility] [place] Qty: 1 0RF Rx Instructions: May substitute to in-stock meter and/or covered by insurance. Use As Directed (DME) OneTouch Verio test strips Strip Qty: 1 0RF Rx Instructions: May substitute to in-stock and/or covered by insurance strips. Use As Directed (DME) lancets [OneTouch Delica Plus Lancet] 30 gauge misc Qty: 1 0RF Rx Instructions: May substitute to in-stock and/or covered by insurance lancets. Use As Directed Date of admission: 03/02/24 17:34 Primary Care Provider: PHYSICIAN,DATA INTEGRITY SPECIALIST Admitting Provider: Katherin Hyman Attending physician on admission: Katherin Hyman Condition: Stable
--- NOTE | 2024-03-04 18:50 | PC.NURSE ---
Extensive education provided regarding cleaning of wound, including sitz bath and gauze for drainage as necessary. Education on blood sugar control, including carb counting. Pt verbalizes understanding. Multiple printouts provided.
--- NOTE | 2024-03-05 11:02 | PM.DS ---
DS: Admitting Diagnosis Discharge Date 03/04/24 Admitting Diagnosis perirectal abscess pelvic mass and male benign essential hypertension diabetes mellitus type 2 DS: Discharge Diagnosis Discharge Diagnosis (1) Lillian-rectal abscess: Code(s): K61.1 - Rectal abscess Status: Acute (2) Pelvic mass in male: Code(s): R19.00 - Intra-abdominal and pelvic swelling, mass and lump, unspecified site Status: Acute (3) Benign essential HTN: Code(s): I10 - Essential (primary) hypertension Status: Acute (4) DM2 (diabetes mellitus, type 2): Qualifiers: Diabetes mellitus senior living insulin use: without remote computer terminal operator use Diabetes mellitus complication status: with skin complications Diabetes mellitus complication detail: with dermatitis Qualified Code(s): E11.620 - Type 2 diabetes mellitus with diabetic dermatitis Code(s): E11.9 - Type 2 diabetes mellitus without complications Status: Acute (5) Tobacco abuse: Code(s): Z72.0 - Tobacco use Status: Acute DS: Summary Hospital Course Reason for hospitalization: perirectal abscess pelvic mass and male benign essential hypertension diabetes mellitus type 2 Hospital Course: This is a 58-year-old male with a significant past medical history of who presented to the hospital for evaluation of a cyst on his buttock. Patient has history of recurrent lillian rectal abscesses with his most recent abscess being in February of 2023 where he underwent I&D with Dr. Schmidt. Abscess cultures from that time grew Bacteroids, fragilis, Peptostreptococcus species, and streptococcus constellatus. He was treated at that time with Zosyn and Flagyl and then switched over to meropenem for a few days with improvement in his white blood cell count. He was sent home with a 14 day course of Cipro and Flagyl. He has monitored closely by Dr. Schmidt since that time. He recently had a pelvic MRI on 02/05/2024 which did not show any active abscess. Patient reports over last 2 days he had increased pain and swelling in the right medial gluteal region which seemed to be worsening. Patient denies any fever, chills, nausea, vomiting, diarrhea, abdominal pain, chest pain, shortness of breath. Patient endorses 6/10 burning pain to perirectal area. Workup in the hospital included a pelvic CT which showed a 2.7 x 1.0 x 1.3 cm perianal abscess, 3.1 x 1.7 x 4.1 cm mass posterior to the rectum that was cystic in stable by MRI on 03/16/2023, left inguinal hernia containing fat. Initial labs show a white blood cell count of 10.7, sodium 136, blood sugars ranging 257-280, C reactive protein 1.4. Patient was given pain medication, Rocephin, and Flagyl while in the ED. on 03/03/2024 he was taken to the OR and had an I and D of the perirectal abscess with General surgery. He was transitioned over to Augmentin. While in the hospital was found to have high blood pressures in which she does not take any medication for and was started on amlodipine 7.5 mg daily. He will need to follow up with his primary care physician regarding his hypertension and further adjustments in his medication. He will also need to follow up with the general surgery team in 2 weeks. He is stable for discharge at this time. wound cultures are still pending and we will continue to watch this. Final diagnosis: perirectal abscess, benign essential hypertension Status at Discharge Cognitive/behavioral status at discharge: Alert and oriented x3 Functional status at discharge: independent ambulation Overall status at discharge: patient is progressing back to baseline Time Spent with Patient Time attestation: Total time spent providing and/or coordinating discharge services: Time spent: Greater than 30 minutes Exam Narrative: General: In no acute distress, well nourished Cardiac: Normal S1 and S2. RRR, No murmur, gallops or friction rubs, peripheral pulses intact. Respiratory: Lungs clear to auscultati
== END 2024-03-04 18:55 | disposition home or self-care (01) ==
LOC: ANHED 18:22 → ANH3MED 18:36
PROVIDERS: Nurse Practitioner Acute Care; Physician Assistant; Surgery; Admitting Provider Family Medicine; Emergency Provider Emergency Medicine; Visit Provider Family Medicine
PROC: (CPT 46040; principal; 2024-03-03 16:30)
DX: K61.1 Rectal abscess (principal); R19.00 Intra-abdominal and pelvic swelling, mass and lump, unspecified site; E11.9 Type 2 diabetes mellitus without complications; I10 Essential (primary) hypertension; F17.210 Nicotine dependence, cigarettes, uncomplicated; Z79.84 Long term (current) use of oral hypoglycemic drugs
CPT/HCPCS: 46040; 36415; 72193; 80053; 82948; 83036; 83605; 85025; 86140; 87070; 87075; 87205; 93005; 96374; 96375; 96376; 99285; A9270; G0378; J0696; J1170; J1836; J2250; J2270; J2405; J2704; J3010; J7030; J7120; Q9967

== ENCOUNTER 2024-06-03 09:35 | Outpatient (CLI) | payer BC, SELFPAY ==
[2024-06-03 10:22] LABS: Hematocrit 50.9 % (42.0-52.0); Hemoglobin 17.7 g/dL (14.0-18.0); Mean Corpuscular HGB Conc 34.8 g/dl (32-36); Mean Corpuscular Hemoglobin 33.4 pg (26-34); Mean Platelet Volume 11.3 fl (7.4-10.4); Platelet Count Result 190 k/mm3 (150-375); Red Cell Distribution Width 12.5 % (11.5-14.5); White Blood Count 9.4 K/mm3 (4.5-10.0)
[2024-06-03 10:30] LABS: Hemoglobin A1C 11.3 % (<5.7)
[2024-06-03 10:42] LABS: Alanine Aminotransferase 28 U/L (6-50); Albumin Level 4.1 g/dL (3.5-5.1); Alkaline Phosphatase 96 U/L (38-126); Anion Gap 4 mmol/L (4-12); Aspartate Amino Transferase 55 U/L (17-59); Blood Urea Nitrogen 13 mg/dL (9-20); Calcium 8.7 mg/dL (8.4-10.2); Carbon Dioxide 31 mmol/L (22-30); Chloride 101 mmol/L (98-107); Cholesterol 220 mg/dL (0-200); Estimated Glomerular Filt Rate > 60; Glucose 248 mg/dL (65-110); HDL Direct 32 mg/dL; Potassium 4.6 mmol/L (3.4-5.0); Sodium 136 mmol/L (137-145); Triglycerides 395 mg/dL (<150)
[2024-06-03 10:50] LABS: Creatinine Urine 198.6 mg/dL; MALB Creatinine Ratio 15.8 mg/g (0-30); Microalbumin Urine Random 31.4 mg/L (0-16.7)
[2024-06-03 10:52] LABS: LDL Cholesterol Direct 111 mg/dL
[2024-06-03 11:12] LABS: Prostate Specific Antigen 3.7 ng/mL (< OR = 4.0)
[2024-06-06 12:08] LABS: Vitamin D 1,25 (OH)2 Total 49 pg/mL (18-72); Vitamin D2 1,25 (OH)2 <8 pg/mL; Vitamin D3 1,25 (OH)2 49 pg/mL
== END 2024-06-03 09:36 | disposition home or self-care (01) ==
LOC: ANHLAB 09:37
PROVIDERS: PCP Family Medicine; Visit Provider Family Medicine
DX: E66.9 Obesity, unspecified (principal); I10 Essential (primary) hypertension; E55.9 Vitamin D deficiency, unspecified; E11.9 Type 2 diabetes mellitus without complications; E78.5 Hyperlipidemia, unspecified; Z12.5 Encounter for screening for malignant neoplasm of prostate; Z79.899 Other long term (current) drug therapy
CPT/HCPCS: 36415; 80053; 80061; 82043; 82652; 83036; 84153; 84443; 85027; G0103

== ENCOUNTER 2024-06-25 06:36 | Outpatient (CLI) | payer BC, SELFPAY ==
--- NOTE | ~2024-06-25 | MR_ITS ---
EXAMINATION: MR pelvis wo/w con DATE: 06/25/2024 07:40 INDICATION: Intra-abdominal and pelvic swelling. TECHNIQUE: Magnetic resonance imaging (MRI) of the pelvis was performed without and with 20 mL MultiH ance intravenous contrast. COMPARISON: Pelvis MRI 02/04/2024, CT 03/02/24, 03/16/23 FINDINGS: The prostate is mildly enlarged. There are bilateral hernias containing fat. There is a multiloculate d fluid collection posterior to the rectum measuring 3.1 x 2.1 x 3.1 cm. There is a 2.3 x 1.2 cm mass posterior to the anus on the right, consistent with phlegmon. There is no ascites. There are no path ologically enlarged lymph nodes. IMPRESSION: 1. Mass posterior to the anus on the right, consistent with phlegmon. 2. Multilocular fluid collection posterior to the rectum, stable from 03/16/23. 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 Reviewed, dictated and finalized at location []
== END 2024-06-25 06:37 | disposition home or self-care (01) ==
PROVIDERS: PCP Family Medicine; Visit Provider Surgery
DX: R19.00 Intra-abdominal and pelvic swelling, mass and lump, unspecified site (principal)
CPT/HCPCS: 72197; A9577

== ENCOUNTER 2024-08-31 11:58 | Inpatient (IN) | payer BC, SELFPAY ==
--- NOTE | ~2024-08-31 | CT_ITS ---
EXAMINATION: CT abdomen pelvis w con DATE: 08/31/2024 13:53 INDICATION: Rectal pain. History of abscess. TECHNIQUE: Computed tomography (CT) of the abdomen and pelvis was performed without intravenous contr ast. The dose-length product was 1386.78 mGy-cm. Automated exposure control and iterative reconstruct ion technique were employed. COMPARISON: CT dated 03/02/2024 FINDINGS: Dependent atelectasis. Heart size normal. No significant pleural or pericardial effusion. S mall peripherally enhancing lesion measuring 1.5 cm of the left hepatic lobe. In the right hepatic lo be there is a hypovascular lesion, image 30. These abnormalities are not significantly changed from p rior examination. These are likely benign in the absence of known malignancy. There is an accessory s plenule. The spleen is otherwise unremarkable. The pancreas, adrenal glands and kidneys are unremarka ble. There is a gallstone. There are changes of ventral abdominal wall hernia repair. There is a curv ilinear perirectal abscess on the right measuring 5.2 x 4 cm. Enlarged prostate gland. Nonobstructive bowel gas pattern. No free air. IMPRESSION: 1. Right perirectal abscess measuring 5.2 x 4 cm. 2: Cholelithiasis. Reviewed, dictated and finalized at location B. ER LAW CLERK
[2024-08-31 12:06] VITALS: BP 141/71; PULSE 96; RESP 16; TEMP 36.7; O2SAT 97
--- NOTE | 2024-08-31 13:19 | ED_ITS ---
HPI - Skin/Abscess/Foreign Bdy General Chief complaint: Skin/Abscess/Foreign Body <Maggie Harris PA-C - Last Filed: 08/31/24 17:43> Stated complaint: abscess <Maggie Harris PA-C - Last Filed: 08/31/24 17:43> Time Seen by Provider: 08/31/24 13:20 <Maggie Harris PA-C - Last Filed: 08/31/24 17:43> Focused HPI: This is a 58-year-old male that presents to the emergency department for possible rectal abscess. Reports he has had multiple of these in the past. He has had pain, swelling worsening since Saturday. Denies fevers. He does have history of diabetes. GENERAL: Well-appearing, well-nourished, and in no acute distress. HEAD: Normocephalic, atraumatic. CHEST: Clear to auscultation. ?No respiratory distress. HEART: Regular rate and rhythm.? NEURO: ?Alert and oriented x3. Patient screened in triage and initial orders placed.? ?Additional care and disposition to be based upon?diagnostic testing and treatment. <Maggie Harris PA-C - Last Filed: 08/31/24 17:43> History of Present Illness HPI narrative: Agree with the HPI above <Wili Dougherty MD - Last Filed: 08/31/24 21:23> Related Data Allergies/Adverse reactions: Allergies Allergy/AdvReac Type Severity Reaction Status Date / Time azithromycin Allergy Hives Verified 06/02/24 10:31 <Maggie Harris PA-C - Last Filed: 08/31/24 17:43> Review of Systems 2 Review of Systems: As reviewed above in HPI <Wili Dougherty MD - Last Filed: 08/31/24 21:23> PMFSH Past Medical History Medical History: Medical History Elevated BP without diagnosis of hypertension History of tobacco abuse BMI 34.0-34.9,adult Perirectal abscess Yary infection of flexural skin DM2 (diabetes mellitus, type 2) Elevated hemoglobin A1c Indu-rectal abscess <Maggie Hraris PA-C - Last Filed: 08/31/24 17:43> Surgical History Surgical History: Surgical History History of colonoscopy Age 50 History of incision and drainage Perirectal abscess <Maggie Harris PA-C - Last Filed: 08/31/24 17:43> Family History Family History: Family History Mother Cancer Alcoholism Father Acute myocardial infarction <Maggie Harris PA-C - Last Filed: 08/31/24 17:43> Social History Social History: Social History Social History: The patient is on his 2nd marriage and he has 2 children. The patient smoked in then quit smoking in went back to smoking and has not smoked for week. He was smoking a pack a cigarettes a day up until 1 week ago. 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 He denies any alcohol or marijuana or illicit drugs. Code status full code Smoking packs per day: 1 Smoking cigarettes per day: 20.0 Years smoked: 25 Smoking pack-years: 25.00 Smoking status: Current every day smoker Tobacco type: cigarettes Alcohol intake: never Substance use: never Substance use type: does not use Do You Feel Safe in your Home?: Yes Lack of Transportation: YES Lack of Food: Never True Current Housing: I Have Housing Concerned About Future Housing: No Difficulty Paying Gas/Electric Bills: No Difficulty Paying for Meds: No Currently Unemployed: No Education: Decline to Answer Difficulty w/ Childcare or Family Care: No Living arrangements: with family Occupation/Education: occupation 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 Mucous membranes moist. NECK: Supple. CHEST: [Clear to auscultation. No respiratory distress.] HEART: [Regular rate and rhythm]. No murmur heard. [Normal peripheral pulses.] ABDOMEN: [Soft, nondistended], [nontender], [No rigidity or guarding] rectal examination shows no fluctuance, erythema, warmth or tender and nodules in the perirectal area or near the scrotum. No pilonidal cysts. EXTREMITIES: Normal range of motion. [No edema.] SKIN: Warm, dry, no rash. NEURO: [No focal deficits]. Alert and oriented [x3.] PSYCH: [Normal mood and affect.] <Wili Dougherty MD - Last Filed: 08/31/24 21:23> Course Vital Signs Vital signs: Vital Signs Temperature 36.7 C 08/31/24 12:06 Pulse Rate 96 08/31/24 12:06 Respiratory Rate 16 08/31/24 12:06 Blood Pressure 141/71 H 08/31/24 12:06 Pulse Oximetry 97 08/31/24 12:06 Temperature 36.2 C L 08/31/24 19:23 Pulse Rate 89 08/31/24 19:23 Respiratory Rate 20 08/31/24 19:23 Blood Pressure 112/67 08/31/24 19:23 Pulse Oximetry 93 08/31/24 19:23 Oxygen Delivery Room Air 08/31/24 20:00 <Maggie Harirs PA-C - Last Filed: 08/31/24 17:43> Vital Signs Temperature 36.7 C 08/31/24 12:06 Pulse Rate 96 08/31/24 12:06 Respiratory Rate 16 08/31/24 12:06 Blood Pressure 141/71 H 08/31/24 12:06 Pulse Oximetry 97 08/31/24 12:06 Temperature 36.2 C L 08/31/24 19:23 Pulse Rate 89 08/31/24 19:23 Respiratory Rate 20 08/31/24 19:23 Blood Pressure 112/67 08/31/24 19:23 Pulse Oximetry 93 08/31/24 19:23 Oxygen Delivery Room Air 08/31/24 20:00 <Wili Dougherty MD - Last Filed: 08/31/24 21:23> MDM - Skin/Abscess/Foreign Bdy [facility] Narrative Medical decision making narrative: 58-year-old male with a history of recurrent perirectal abscess but as well as hypertension, diabetes and medication noncompliance. Patient presents to the emergency department for evaluation of a potential recurrent abscess. Patient states that for last 2 days he has been having worsening pain in his right side buttock region and pain with defecation. Has subjective fever and chills. Has been taking medications at home for pain without any relief of his symptoms. Feels very similar to his previous perirectal abscess. No clinical signs externally of a perirectal abscess, no nodules fluctuance tender masses or redness in the perirectal area. He is afebrile here with vital signs showing stable hypertension but no tachycardia or fever. He otherwise looks well and not any acute distress. A CT scan with contrast was used to evaluate for any deep space infections chart was reviewed he has had multiple pelvic MRI is with variations of phlegmon and cyst formation identified in his rectal area. He follows with Dr. Zachary Schmidt from General surgery at this facility. Laboratory studies were obtained including lactic acid, inflammatory markers, CMP, CBC and he was given Dilaudid and Zofran for symptom control. Patient does have a leukocytosis of 13.5, no anemia. Normal platelets. Negative lactic acid, normal renal and hepatic function panel. Elevated CRP of 4.1. I independently reviewed patient's CT scan identify a right-sided perirectal abscess that measures about 5 x 4cm. No free air. Radiology confirms perirectal abscess as well as some cholelithiasis. Patient will be started on ciprofloxacin and Flagyl in general surgery consult for recommendations on further evaluation and treatment. I spoke to the general surgeon Dr. Barnes who is currently covering the surgical services and recommendations were to admit the patient to the medical team for evaluation and potential incision and drainage. Patient will be made NPO at midnight and continued on antibiotics. P.r.n. medications and pain control placed. I spoke to the mid-level provider currently covering the hospitalist service who accepted him to a medical-surgical bed at this time. <Wili Dougherty MD - Last Filed: 08/31/24 21:23> Medical Records Attestation: I reviewed the patient's medical records. <Wili Dougherty MD - Last Filed: 08/31/24 21:23> Lab Data Attestation: I reviewed the patient's lab results. <Wili Dougherty MD - Last Filed: 08/31/24 21:23> Result diagrams: 08/31/24 13:39 08/31/24 13:45 <Maggie Harris PA-C - Last Filed: 08/31/24 17:43> Labs: Lab Results 08/31/24 08/31/24 Range/Units 13:39 13:45 WBC 13.5 H (4.5-10.0) K/mm3 RBC 5.34 (4.6-6.20) M/mm3 Hgb 17.3 (14.0-18.0) g/dL Hct 49.3 (42.0-52.0) % MCV 92.3 (80-100) fl MCH 32.4 (26-34) pg MCHC 35.1 (32-36) g/dl RDW 12.4 (11.5-14.5) % Plt Count 221 (150-375) k/mm3 MPV 11.0 H (7.4-10.4) fl Immature Gran % (Auto) 0.4 (0-0.5) % Neut % (Auto) 60.8 (45.5-73.1) % Lymph % (Auto) 26.8 (18.3-44.2) % [place] % (Auto) 8.7 H (2.6-8.5) % Eos % (Auto) 2.4 (0-4.4) % Baso % (Auto) 0.9 (0.2-1.2) % Lymph # (Auto) 3.61 H (0.9-3.2) K/mm3 [place] # (Auto) 1.2 H (0.1-0.6) K/mm3 Eos # (Auto) 0.3 (0-0.3) K/mm3 Baso # (Auto) 0.1 (0.0-0.1) K/mm3 Abs Immat Gran (auto) 0.05 H (0.00-0.031) K/mm3 Absolute Neuts (auto) 8.2 H (1.3-6.7) K/mm3 Absolute Nucleated RBC 0.000 (0.0-0.012) K/mm3 Nucleated RBC % 0.0 (0.0-0.2) % ESR 19 (0-20) mm/hr PT 13.8 (11.1-14.7) Seconds INR 1.0 APTT 27.9 (22.3-36.8) Seconds Sodium 134 L (137-145) mmol/L Potassium 4.5 (3.4-5.0) mmol/L Chloride 100 (98-107) mmol/L Carbon Dioxide 29 (22-30) mmol/L Anion Gap 5 (4-12) mmol/L BUN 11 (9-20) mg/dL Creatinine 0.61 L 0.70 L (0.7-1.3) mg/dL Estim Creat Clear Calc 148 131 ml/min Estimated GFR > 60 > 60 (59 - ) Glucose 153 H (65-110) mg/dL Hemoglobin A1c 9.9 H (<5.7) % Lactic Acid 1.4 (0.7-2.0) mmol/L Calcium 9.0 (8.4-10.2) mg/dL Total Bilirubin 1.2 (0.2-1.3) mg/dL AST 26 (17-59) U/L ALT 15 (6-50) U/L Alkaline Phosphatase 95 (38-126) U/L C-Reactive Protein 4.1 H (<1.0) mg/dL Total Protein 8.0 (6.3-8.2) g/dL Albumin 3.9 (3.5-5.1) g/dL <Maggie Harris PA-C - Last Filed: 08/31/24 17:43> Lab Results 08/31/24 08/31/24 Range/Units 13:39 13:45 WBC 13.5 H (4.5-10.0) K/mm3 RBC 5.34 (4.6-6.20) M/mm3 Hgb 17.3 (14.0-18.0) g/dL Hct 49.3 (42.0-52.0) % MCV 92.3 (80-100) fl MCH 32.4 (26-34) pg MCHC 35.1 (32-36) g/dl RDW 12.4 (11.5-14.5) % Plt Count 221 (150-375) k/mm3 MPV 11.0 H (7.4-10.4) fl Immature Gran % (Auto) 0.4 (0-0.5) % Neut % (Auto) 60.8 (45.5-73.1) % Lymph % (Auto) 26.8 (18.3-44.2) % [place] % (Auto) 8.7 H (2.6-8.5) % Eos % (Auto) 2.4 (0-4.4) % Baso % (Auto) 0.9 (0.2-1.2) % Lymph # (Auto) 3.61 H (0.9-3.2) K/mm3 [place] # (Auto) 1.2 H (0.1-0.6) K/mm3 Eos # (Auto) 0.3 (0-0.3) K/mm3 Baso # (Auto) 0.1 (0.0-0.1) K/mm3 Abs Immat Gran (auto) 0.05 H (0.00-0.031) K/mm3 Absolute Neuts (auto) 8.2 H (1.3-6.7) K/mm3 Absolute Nucleated RBC 0.000 (0.0-0.012) K/mm3 Nucleated RBC % 0.0 (0.0-0.2) % ESR 19 (0-20) mm/hr PT 13.8 (11.1-14.7) Seconds INR 1.0 APTT 27.9 (22.3-36.8) Seconds Sodium 134 L (137-145) mmol/L Potassium 4.5 (3.4-5.0) mmol/L Chloride 100 (98-107) mmol/L Carbon Dioxide 29 (22-30) mmol/L Anion Gap 5 (4-12) mmol/L BUN 11 (9-20) mg/dL Creatinine 0.61 L 0.70 L (0.7-1.3) mg/dL Estim Creat Clear Calc 148 131 ml/min Estimated GFR > 60 > 60 (59 - ) Glucose 153 H (65-110) mg/dL Hemoglobin A1c 9.9 H (<5.7) % Lactic Acid 1.4 (0.7-2.0) mmol/L Calcium 9.0 (8.4-10.2) mg/dL Total Bilirubin 1.2 (0.2-1.3) mg/dL AST 26 (17-59) U/L ALT 15 (6-50) U/L Alkaline Phosphatase 95 (38-126) U/L C-Reactive Protein 4.1 H (<1.0) mg/dL Total Protein 8.0 (6.3-8.2) g/dL Albumin 3.9 (3.5-5.1) g/dL <Wili Dougherty MD - Last Filed: 08/31/24 21:23> Imaging Data Attestation: I personally reviewed and interpreted this imaging study as follows: < Wili Dougherty MD - Last Filed: 08/31/24 21:23> Radiologist's impression: ITS Impressions Abdomen/Pelvis CT 08/31/24 14:09 IMPRESSION: 1. Right perirectal abscess measuring 5.2 x 4 cm. 2: Cholelithiasis. <Maggie Hraris PA-C - Last Filed: 08/31/24 17:43> Critical Care Time Critical Care Time Critical Care Time: No <Maggie Harris PA-C - Last Filed: 08/31/24 17:43> Discharge Plan Discharge Clinical Impression: Perirectal abscess <Maggie Harris PA-C - Last Filed: 08/31/24 17:43> Patient Disposition: Still a Patient <Maggie Harris PA-C - Last Filed: 08/31/24 17:43> Condition: Stable <Maggie Harris PA-C - Last Filed: 08/31/24 17:43> Time of Disposition: 16:08 <Maggie Harris PA-C - Last Filed: 08/31/24 17:43> 16:08 <Wili Dougherty MD - Last Filed: 08/31/24 21:23>
[2024-08-31 13:49] LABS: Estimated CRCL calculation 131 ml/min; Estimated Glomerular Filt Rate > 60
[2024-08-31 13:57] LABS: Basophils Absolute Auto 0.1 K/mm3 (0.0-0.1); Basophils Percent Auto 0.9 % (0.2-1.2); Eosinophils Absolute Auto 0.3 K/mm3 (0-0.3); Eosinophils Percent Auto 2.4 % (0-4.4); Hematocrit 49.3 % (42.0-52.0); Hemoglobin 17.3 g/dL (14.0-18.0); Immature Granulocyte Absolute 0.05 K/mm3 (0.00-0.031); Immature Granulocyte Percent A 0.4 % (0-0.5); Lymphocytes Absolute Auto 3.61 K/mm3 (0.9-3.2); Lymphocytes Percent Auto 26.8 % (18.3-44.2); Mean Corpuscular HGB Conc 35.1 g/dl (32-36); Mean Corpuscular Hemoglobin 32.4 pg (26-34); Mean Corpuscular Volume 92.3 fl (80-100); Monocytes Absolute Auto 1.2 K/mm3 (0.1-0.6); Monocytes Percent Auto 8.7 % (2.6-8.5); Neutrophils Absolute Auto 8.2 K/mm3 (1.3-6.7); Neutrophils Percent Auto 60.8 % (45.5-73.1); Platelet Count Result 221 k/mm3 (150-375); Red Blood Count 5.34 M/mm3 (4.6-6.20); Red Cell Distribution Width 12.4 % (11.5-14.5); White Blood Count 13.5 K/mm3 (4.5-10.0)
[2024-08-31 14:07] LABS: Lactic Acid Reflex 1.4 mmol/L (0.7-2.0)
[2024-08-31 14:10] LABS: Alanine Aminotransferase 15 U/L (6-50); Albumin Level 3.9 g/dL (3.5-5.1); Alkaline Phosphatase 95 U/L (38-126); Anion Gap 5 mmol/L (4-12); Aspartate Amino Transferase 26 U/L (17-59); Bilirubin,Total 1.2 mg/dL (0.2-1.3); Blood Urea Nitrogen 11 mg/dL (9-20); CRP 4.1 mg/dL (<1.0); Carbon Dioxide 29 mmol/L (22-30); Chloride 100 mmol/L (98-107); Estimated CRCL calculation 148 ml/min; Estimated Glomerular Filt Rate > 60; Glucose 153 mg/dL (65-110); Potassium 4.5 mmol/L (3.4-5.0); Sodium 134 mmol/L (137-145)
[2024-08-31 14:12] LABS: Partial Thromboplastin Time 27.9 Seconds (22.3-36.8); Prothrombin Time 13.8 Seconds (11.1-14.7)
[2024-08-31] MEDS: KETOROLAC 15 MG/ML VIAL (*BKC) IV PUSH (14:18)
[2024-08-31] MEDS: ONDANSETRON INJ 4 MG/2 ML VIAL IV PUSH (14:18)
[2024-08-31] MEDS: HYDROmorphone HCL INJ (*CRX) 1 MG/ML SYR IV PUSH (14:19)
[2024-08-31 14:37] LABS: Erythrocyte Sedimentation Rate 19 mm/hr (0-20)
[2024-08-31 14:46] LABS: Hemoglobin A1C 9.9 % (<5.7)
[2024-08-31] MEDS: metroNIDAZOLE 500 MG/ISO 100ML 500 MG/100 ML BAG 100 MG IVPB (16:28)
[2024-08-31 16:29] VITALS: BP 146/86; PULSE 98; RESP 14; O2SAT 98
[2024-08-31] MEDS: CIPROFLOXACIN 400 MG/D5W 200ML 200 ML 200 MG IVPB (18:30)
[2024-08-31] MEDS: HYDROmorphone HCL INJ (*CRX) 1 MG/ML SYR 0.5 MG IV PUSH ×2 (18:31→22:46)
[2024-08-31 18:44] VITALS: BP 155/74; PULSE 90; RESP 16; O2SAT 98
--- NOTE | 2024-08-31 19:13 | ADMGEN ---
This patient, Trenton Crockett, was admitted to Medical Room 344-01. Patient/family oriented to hospital policies and general routines including ID bracelet, bed and alarms, visiting hours, pain management, procedures, bathroom and other care routines, personal items, smoking policy, room service/diet, and visiting hours. Information on how to activate the Rapid Response Team has been discussed. Patient/Family are encouraged to report perceived risks to care and to ask questions if they do not understand what they are told or what they should do.
[2024-08-31 19:23] VITALS: BP 112/67; PULSE 89; RESP 20; TEMP 36.2; O2SAT 93
[2024-08-31 19:24] VITALS: BMI 36.3
[2024-08-31 19:46] LABS: Glucose Point of Care 167 mg/dl (65-105)
--- NOTE | 2024-08-31 20:08 | PM.IMHP ---
H&P: HPI History of Present Illness Date/Time: 08/31/24 20:08 Chief Complaint: Lillian-Rectal Abscess Narrative: Patient presented to the ER with reports of right lillian-rectal pain and tenderness. He reports previous Hx of lillian-rectal abscess and had I&D done 03/18. Patient denies any fevers or chills, and states symptoms started 2 days ago, with pain and tenderness to his right lillian-rectal region. He denies any insect bites or trauma to the region, reporting previous episodes of lillian-rectal abscess requiring I&D. Review of Systems Review of Systems: All systems reviewed & are unremarkable except as noted in HPI and below PMFSH Past Medical History Medical History Elevated BP without diagnosis of hypertension History of tobacco abuse BMI 34.0-34.9,adult Perirectal abscess Yary infection of flexural skin DM2 (diabetes mellitus, type 2) Elevated hemoglobin A1c Lillian-rectal abscess Surgical History Surgical History History of colonoscopy Age 50 History of incision and drainage Perirectal abscess Family History Family History Mother Cancer Alcoholism Father Acute myocardial infarction Social History Social History Social History: The patient is on his 2nd marriage and he has 2 children. The patient smoked in then quit smoking in went back to smoking and has not smoked for week. He was smoking a pack a cigarettes a day up until 1 week ago. 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 He denies any alcohol or marijuana or illicit drugs. Code status full code Smoking packs per day: 1 Smoking cigarettes per day: 20.0 Years smoked: 25 Smoking pack-years: 25.00 Smoking status: Current every day smoker Tobacco type: cigarettes Alcohol intake: never Substance use: never Substance use type: does not use Do You Feel Safe in your Home?: Yes Lack of Transportation: YES Lack of Food: Never True Current Housing: I Have Housing Concerned About Future Housing: No Difficulty Paying Gas/Electric Bills: No Difficulty Paying for Meds: No Currently Unemployed: No Education: Decline to Answer Difficulty w/ Childcare or Family Care: No Living arrangements: with family Occupation/Education: occupation 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 Gender identity (if verbalized by the patient): Male Sexual Orientation (if Verbalized by the Patient): Straight or Heterosexual Spiritual care concerns: No Meds Home Medications and Allergies Home Medications ?Medication ?Instructions ?Recorded ?Confirmed ?Type simvastatin 10 mg tablet 10 mg PO DAILY #90 tabs 06/03/24 08/31/24 Rx lisinopril 10 mg tablet 10 mg PO DAILY #90 tabs 07/27/24 08/31/24 Rx metformin 500 mg tablet 500 mg PO DAILY #90 tabs 07/27/24 08/31/24 Rx Allergies Allergy/AdvReac Type Severity Reaction Status Date / Time azithromycin Allergy Hives Verified 06/02/24 10:31 Vital Signs Vital Signs - 24 hr 08/31/24 12:06 08/31/24 16:29 08/31/24 18:44 Temperature 98.1 F Pulse Rate 96 98 90 Respiratory Rate 16 14 16 Blood Pressure 141/71 H 146/86 H 155/74 H Pulse Oximetry 97 98 98 08/31/24 19:23 Temperature 97.1 F L Pulse Rate 89 Respiratory Rate 20 Blood Pressure 112/67 Pulse Oximetry 93 Exam Narrative: General: Well appearing, no acute distress. HEENT: Atraumatic, PERRL, EOM, anicteric, moist mucus membranes. NECK: Supple. Lungs: Clear bilaterally. Heart: RRR, no murmurs. Abdomen: Soft, non-tender, non-distended, +ve BS X4 Quadrants. Extremities:No cyanosis, no edema. Skin: Warm and dry. No lesions noted. Rectum: Right lillian-rectal tenderness. No open area or drainage noted. Neuro: Well oriented. CN II-XII grossly intact. Psych: Pleasant and co-operative. H&P: Results Labs Labs: Short CBC 08/31/24 Range/Units 13:39 WBC 13.5 H (4.5-10.0) K/mm3 Hgb 17.3 (14.0-18.0) g/dL Hct 49.3 (42.0-52.0) % Plt Count 221 (150-375) k/mm3 BMP 08/31/24 08/31/24 13:39 13:45 Sodium 134 L Potassium 4.5 Chloride 100 Carbon Dioxide 29 BUN 11 Creatinine 0.61 L 0.70 L Glucose 153 H Calcium 9.0 Liver Function 08/31/24 Range/Units 13:39 Total Bilirubin 1.2 (0.2-1.3) mg/dL AST 26 (17-59) U/L ALT 15 (6-50) U/L Alkaline Phosphatase 95 (38-126) U/L Albumin 3.9 (3.5-5.1) g/dL Assessment and Plan Assessment and plan (1) Lillian-rectal abscess: Code(s): K61.1 - Rectal abscess Status: Acute Assessment and Plan: - Blood cultures ordered. - Given Cipro and Metronidazole in ER. - Started on Vancomycin. - General surgery consulted. - Follow cultures. (2) DM2 (diabetes mellitus, type 2): Qualifiers: Diabetes mellitus custodial insulin use: without exterminator helper use Diabetes mellitus complication status: with skin complications Diabetes mellitus complication detail: with dermatitis Qualified Code(s): E11.620 - Type 2 diabetes mellitus with diabetic dermatitis Code(s): E11.9 - Type 2 diabetes mellitus without complications Status: Acute Assessment and Plan: - Metformin restarted. - BG monitoring AC&HS. - Adjust meds as needed. (3) Benign essential HTN: Code(s): I10 - Essential (primary) hypertension Status: Acute Assessment and Plan: - BP well controlled. - Continue Lisinopril. (4) Leukocytosis: Code(s): D72.829 - Elevated white blood cell count, unspecified Status: Acute Assessment and Plan: - Likely related to lillian-rectal abscess. - Monitor trend with IV abx. (5) Tobacco abuse: Code(s): Z72.0 - Tobacco use Status: Acute Assessment and Plan: - Encouraged with cessation. - Nicotine patch ordered. (6) Cholelithiasis: Code(s): K80.20 - Calculus of gallbladder without cholecystitis without obstruction Status: Acute Assessment and Plan: - Patient asymptomatic. - Monitor for now. (7) Obesity (BMI 30-39.9): Code(s): E66.9 - Obesity, unspecified Status: Acute Assessment and Plan: - Encouraged with lifestyle modification. Quality VTE Prophylaxis VTE prophylaxis: mechanical ordered Hospitalist MIPS Advance Care Plan I have confirmed that the patient's Advanced Care Plan is present, code status is documented, or surrogate decision maker is listed in patient medical record.: Yes Medication Reconciliation I have utilized all available resources to obtain, update and review the patients current medications (includes all prescriptions, OTC, herbals, cannabis, and nutritional supplements).: Yes
[2024-08-31] MEDS: VANCOMYCIN 1,500 MG/NS 500 ML 1,500 MG/500 ML BAG 250 MG IVPB (21:36)
[2024-08-31] MEDS: NICOTINE (*PBKC) 21 MG PATCH 1 PATCH TRANSDERM (21:41)
[2024-08-31] MEDS: ACETAMINOPHEN 325 MG TABLET 650 MG PO (23:57)
[2024-09-01] VITALS (11 sets, daily range): BP systolic 94–167; BP diastolic 53–90; PULSE 72–110; RESP 16–22; TEMP 36.1–37.2; O2SAT 91–99
[2024-09-01] MEDS: HYDROcodone/acetaminophen (*CRX) 5-325 MG TABLET 1 TAB PO ×2 (00:46→10:17)
[2024-09-01] MEDS: HYDROmorphone HCL INJ (*CRX) 1 MG/ML SYR 0.5 MG IV PUSH ×2 (03:07→06:53)
[2024-09-01 05:57] LABS: Basophils Absolute Auto 0.1 K/mm3 (0.0-0.1); Eosinophils Absolute Auto 0.4 K/mm3 (0-0.3); Eosinophils Percent Auto 3.4 % (0-4.4); Hematocrit 44.2 % (42.0-52.0); Hemoglobin 14.9 g/dL (14.0-18.0); Immature Granulocyte Absolute 0.04 K/mm3 (0.00-0.031); Immature Granulocyte Percent A 0.3 % (0-0.5); Lymphocytes Absolute Auto 3.54 K/mm3 (0.9-3.2); Lymphocytes Percent Auto 29.2 % (18.3-44.2); Mean Corpuscular HGB Conc 33.7 g/dl (32-36); Mean Corpuscular Hemoglobin 32.3 pg (26-34); Mean Corpuscular Volume 95.7 fl (80-100); Mean Platelet Volume 10.9 fl (7.4-10.4); Monocytes Absolute Auto 1.2 K/mm3 (0.1-0.6); Monocytes Percent Auto 9.8 % (2.6-8.5); Neutrophils Absolute Auto 6.8 K/mm3 (1.3-6.7); Neutrophils Percent Auto 56.3 % (45.5-73.1); Platelet Count Result 215 k/mm3 (150-375); Red Blood Count 4.62 M/mm3 (4.6-6.20); Red Cell Distribution Width 12.4 % (11.5-14.5); White Blood Count 12.1 K/mm3 (4.5-10.0)
[2024-09-01 06:18] LABS: Anion Gap 3 mmol/L (4-12); Blood Urea Nitrogen 16 mg/dL (9-20); Calcium 8.4 mg/dL (8.4-10.2); Carbon Dioxide 30 mmol/L (22-30); Chloride 101 mmol/L (98-107); Estimated CRCL calculation 167 ml/min; Estimated Glomerular Filt Rate > 60; Glucose 151 mg/dL (65-110); Sodium 134 mmol/L (137-145)
--- NOTE | 2024-09-01 09:20 | P.PNIM_ITS ---
Progress Note: A&P Assessment and Plan (1) Lillian-rectal abscess: Code(s): K61.1 - Rectal abscess Status: Acute Assessment and Plan: CT 02/2024 which showed a 2.7 x 1.0 x 1.3 cm perianal abscess, 3.1 x 1.7 x 4.1 cm mass posterior to the rectum and was treated with I&D and Augmentin returns with reoccurring abscess * CT Right perirectal abscess measuring 5.2 x 4 cm. * Blood cultures pending * Given Cipro and Metronidazole in ER. * Started on Vancomycin. * General surgery consulted. * Will likely need I&D * Pain management * NPO for surgery consult (2) DM2 (diabetes mellitus, type 2): Qualifiers: Diabetes mellitus complication detail: with dermatitis Diabetes mellitus complication status: with skin complications Diabetes mellitus [facility] insulin use: without intermission coordinator use Qualified Code(s): E11.620 - Type 2 diabetes mellitus with diabetic dermatitis Code(s): E11.9 - Type 2 diabetes mellitus without complications Status: Acute Assessment and Plan: * Accu-Cheks a.c. HS * sliding scale insulin * hold metformin * Diabetic diet * Watch for hypoglycemia/hypoglycemic protocol ordered (3) Benign essential HTN: Code(s): I10 - Essential (primary) hypertension Status: Acute Assessment and Plan: * BP well controlled. * Continue Lisinopril. (4) Tobacco abuse: Code(s): Z72.0 - Tobacco use Status: Acute Assessment and Plan: * Encouraged with cessation. * Nicotine patch ordered. (5) Cholelithiasis: Code(s): K80.20 - Calculus of gallbladder without cholecystitis without obstruction Status: Acute Assessment and Plan: * incidental findings * Patient asymptomatic. * Monitor for now. (6) Obesity (BMI 30-39.9): Code(s): E66.9 - Obesity, unspecified Status: Acute Assessment and Plan: * Encouraged with lifestyle modification. Plan Code status: Full code per patient DVT prophylaxis: SCD Stress ulcer prophylaxis: NA PT/OT notes: NA Disposition: patient continues admission to the medical unit for perirectal abscess general surgery to see continue with antibiotics pending recommendations from General surgery. patient is ambulatory and plan will be to discharge home when medically stable. Time Spent With Patient Time with patient: 15 - 25 minutes Subjective Date/time seen: 09/01/24 09:20 Interval history: Evaluation and treatment of a perianal abscess likely need to undergo I and D. 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 patient denied any chest pain, shortness a breath, nausea, vomiting or abdominal pain currently waiting for surgery to do I and D. Review of Systems 2 Review of Systems: All systems reviewed & are unremarkable except as noted in HPI and below Exam Narrative: General: Well appearing, no acute distress. HEENT: Atraumatic, PERRL, EOM, anicteric, moist mucus membranes. NECK: Supple. Lungs: Clear bilaterally. Heart: RRR, no murmurs. Abdomen: Soft, non-tender, non-distended, +ve BS X4 Quadrants. Extremities:No cyanosis, no edema. Skin: Warm and dry. No lesions noted. Rectum: Right lillian-rectal tenderness. No open area or drainage noted. Neuro: Well oriented. CN II-XII grossly intact. Psych: Pleasant and co-operative. Objective Data Vital Signs Vital Signs: Vital Signs - 24 hr 08/31/24 12:06 08/31/24 16:29 08/31/24 18:44 Temperature 98.1 F Pulse Rate 96 98 90 Respiratory Rate 16 14 16 Blood Pressure 141/71 H 146/86 H 155/74 H Pulse Oximetry 97 98 98 Oxygen Delivery 08/31/24 19:23 08/31/24 20:00 09/01/24 05:36 Temperature 97.1 F L 97.1 F L Pulse Rate 89 72 Respiratory Rate 20 20 Blood Pressure 112/67 94/53 L Pulse Oximetry 93 97 Oxygen Delivery Room Air 09/01/24 06:50 Temperature Pulse Rate Respiratory Rate Blood Pressure 114/61 Pulse Oximetry Oxygen Delivery Intake/Output Intake/Output: Intake & Output 08/29/24 08/30/24 08/31/24 09/01/24 23:59 23:59 23:59 23:59 Intake Total 600 1000 Balance 600 1000 Meds/Results Medications: Active Medications Generic Name Dose Route Start Last Admin Trade Name Freq PRN Reason Stop Dose Admin Acetaminophen 650 mg 08/31/24 16:08 08/31/24 23:57 Acetaminophen 325 Mg Tablet PO 650 mg Q4H PRN Administration Mild Pain (1-3) or Fever Hydrocodone Bitart/Acetaminophen 1 tab 08/31/24 21:24 09/01/24 00:46 Hydrocodone/Acetaminophen (*Crx) 5-325 Mg Tablet PO 1 tab Q6H PRN Administration Pain Rated 4-6 Dextrose 12.5 gm 08/31/24 20:25 Dextrose 50% 25 Gm/50 Ml Syringe IV PUSH PRN PRN Hypoglycemia Protocol Glucagon 1 mg 08/31/24 20:25 Glucagon For Inj 1 Mg Vial IM PRN PRN Hypoglycemia Protocol Glucose 15 gm 08/31/24 20:25 Glucose Oral Gel 15 Gm Of Glucse In 37.5 Gm Tube PO PRN PRN Hypoglycemia Protocol Hydromorphone HCl 0.5 mg 08/31/24 16:08 09/01/24 06:53 Hydromorphone Hcl Inj (*Crx) 1 Mg/Ml Syr IV PUSH 0.5 mg Q4H PRN Administration Pain Rated 7-10 Dextrose 1,000 mls @ 100 mls/hr 08/31/24 20:25 Dextrose 5% 1,000 Ml IVPB PRN PRN Hypoglycemia Protocol Vancomycin HCl 1,500 mg in 500 mls @ 250 mls/hr 08/31/24 21:00 08/31/24 23:36 Vancomycin 1,500 Mg/Ns 500 Ml IVPB Infused Q12H AUGUST Infusion Ketorolac Tromethamine 30 mg 08/31/24 16:08 Ketorolac 30 Mg/Ml Vial (*Bkc) IV PUSH 09/05/24 16:07 Q6H PRN Pain Rated 4-6 Lisinopril 10 mg 09/01/24 09:00 Lisinopril 10 Mg Tablet PO DAILY [facility] Metformin HCl 500 mg 09/01/24 09:00 Metformin Hcl 500 Mg Tablet PO DAILY [facility] Nicotine 1 patch 08/31/24 20:50 08/31/24 21:41 Nicotine (*Pbkc) 21 Mg Patch TRANSDERM 1 patch DAILY [facility] Administration Ondansetron HCl 4 mg 08/31/24 16:08 Ondansetron Inj 4 Mg/2 Ml Vial IV PUSH Q4H PRN Nausea Simvastatin 10 mg 09/01/24 09:00 Simvastatin 10 Mg Tablet PO DAILY [facility] Radiology Results: ITS Impressions Abdomen/Pelvis CT 08/31/24 14:09 IMPRESSION: 1. Right perirectal abscess measuring 5.2 x 4 cm. 2: Cholelithiasis. Labs Labs: Laboratory Results - last 24 hr 08/31/24 08/31/24 08/31/24 13:39 13:45 19:39 WBC 13.5 H RBC 5.34 Hgb 17.3 Hct 49.3 MCV 92.3 MCH 32.4 MCHC 35.1 RDW 12.4 Plt Count 221 MPV 11.0 H Immature Gran % (Auto) 0.4 Neut % (Auto) 60.8 Lymph % (Auto) 26.8 [place] % (Auto) 8.7 H Eos % (Auto) 2.4 Baso % (Auto) 0.9 Lymph # (Auto) 3.61 H [place] # (Auto) 1.2 H Eos # (Auto) 0.3 Baso # (Auto) 0.1 Abs Immat Gran (auto) 0.05 H Absolute Neuts (auto) 8.2 H Absolute Nucleated RBC 0.000 Nucleated RBC % 0.0 ESR 19 PT 13.8 INR 1.0 APTT 27.9 Sodium 134 L Potassium 4.5 Chloride 100 Carbon Dioxide 29 Anion Gap 5 BUN 11 Creatinine 0.61 L 0.70 L Estim Creat Clear Calc 148 131 Estimated GFR > 60 > 60 Glucose 153 H POC Capillary Glucose 167 H Hemoglobin A1c 9.9 H Lactic Acid 1.4 Calcium 9.0 Total Bilirubin 1.2 AST 26 ALT 15 Alkaline Phosphatase 95 C-Reactive Protein 4.1 H Total Protein 8.0 Albumin 3.9 09/01/24 05:22 WBC 12.1 H RBC 4.62 Hgb 14.9 Hct 44.2 MCV 95.7 MCH 32.3 MCHC 33.7 RDW 12.4 Plt Count 215 MPV 10.9 H Immature Gran % (Auto) 0.3 Neut % (Auto) 56.3 Lymph % (Auto) 29.2 [place] % (Auto) 9.8 H Eos % (Auto) 3.4 Baso % (Auto) 1.0 Lymph # (Auto) 3.54 H [place] # (Auto) 1.2 H Eos # (Auto) 0.4 H Baso # (Auto) 0.1 Abs Immat Gran (auto) 0.04 H Absolute Neuts (auto) 6.8 H Absolute Nucleated RBC 0.000 Nucleated RBC % 0.0 ESR PT INR APTT Sodium 134 L Potassium 4.0 Chloride 101 Carbon Dioxide 30 Anion Gap 3 L BUN 16 Creatinine 0.53 L Estim Creat Clear Calc 167 Estimated GFR > 60 Glucose 151 H POC Capillary Glucose Hemoglobin A1c Lactic Acid Calcium 8.4 Total Bilirubin AST ALT Alkaline Phosphatase C-Reactive Protein Total Protein Albumin Quality VTE Prophylaxis VTE prophylaxis: mechanical ordered -Patient's previous records reviewed on admission -ER notes reviewed in detail on admission -discussed all findings and current treatment plan with patient/Family/POA -Consultations reviewed for recommendations -Patient's disposition for safe discharge discussed with catalytic case operator Dictation performed by [employer] direct speech recognition software, therefore signals intelligence analysis manager variants and typographical errors may occur. Hospitalist MIPS Advance Care Plan I have confirmed that the patient's Advanced Care Plan is present, code status is documented, or surrogate decision maker is listed in patient medical record.: Yes Medication Reconciliation I have utilized all available resources to obtain, update and review the patients current medications (includes all prescriptions, OTC, herbals, cannabis, and nutritional supplements).: Yes The patient is not eligible for med reconciliation; the patient is in a emergent medical situation where delaying treatment would jeopardize the patients health.: No
[2024-09-01 09:55] LABS: Glucose Point of Care 143 mg/dl (65-105)
[2024-09-01] MEDS: lisinopriL 10 MG TABLET PO (10:15)
[2024-09-01] MEDS: VANCOMYCIN 1,500 MG/NS 500 ML 1,500 MG/500 ML BAG 250 MG IVPB (10:35)
--- NOTE | 2024-09-01 10:48 | PM.CNGS ---
Assessment and Plan Assessment and plan (1) Perirectal abscess: Code(s): K61.1 - Rectal abscess Status: Acute Assessment and Plan: CT showing right perirectal abscess. This is a recurrent issue for the patient. He has also had issues with noncompliance with management of his diabetes. Will adjust his IV antibiotics to provide appropriate coverage for perirectal abscess. We would recommend proceeding with incision and drainage of perirectal abscess by Dr. Barnes. Description of the procedure, risks, benefits, alternatives, and expected recovery were discussed with the patient. He agrees to proceed. Will keep him NPO with IV fluids, and plan to proceed to the OR today. (2) DM2 (diabetes mellitus, type 2): Qualifiers: Diabetes mellitus assisted insulin use: without long term acute care registered nurse use Diabetes mellitus complication status: with skin complications Diabetes mellitus complication detail: with dermatitis Qualified Code(s): E11.620 - Type 2 diabetes mellitus with diabetic dermatitis Code(s): E11.9 - Type 2 diabetes mellitus without complications Status: Acute Assessment and Plan: Management per hospitalist. Discussed the importance of controlling his diabetes and being compliant with medications. (3) Tobacco abuse: Code(s): Z72.0 - Tobacco use Status: Acute Assessment and Plan: Encouraged cessation (4) Obesity (BMI 30-39.9): Code(s): E66.9 - Obesity, unspecified Status: Acute (5) Benign essential HTN: Code(s): I10 - Essential (primary) hypertension Status: Acute (6) Cholelithiasis: Code(s): K80.20 - Calculus of gallbladder without cholecystitis without obstruction Status: Acute Assessment and Plan: Incidentally noted on CT scan. No evidence of cholecystitis. Asymptomatic. No indication for surgical management at this time. Plan I have discussed the patient's case and plan of care with Dr. Barnes. Thank you for allowing us to see the patient in consultation and we will continue to follow along with you. History of Present Illness Consult details Consult date: 09/01/24 Reason for consult: other (Perirectal abscess) Requesting physician: Wili Dougherty MD Narrative: This is a 58-year-old man with PMH of type 2 diabetes mellitus, hypertension, tobacco abuse, and previous perirectal abscesses. He has had a perirectal abscess in February of 2023 and again in 2023 that required incision and drainage. He reports healing well after the last I&D in the summer. Although, he had issues with changing his primary care provider and noncompliance with home medications since his last surgery. His diabetes was uncontrolled and he reports becoming compliant after his last office visit with his new PCP in May. He had a pelvic MRI in May of 2024 that showed a mass posterior to the anus on the right, consistent with phlegmon. Also a multilocular fluid collection posterior to the rectum stable from February measuring 3.1 x 2.1 x 3.1 cm. At that time, he was called from our office and not having any rectal pain. Therefore, he reports he wanted her this and has not had any problems up until 3 days ago. He noticed some mild perirectal discomfort that progressively became worse over the past few days. Pain was aggravated by sitting. He denies any constipation or diarrhea. He has had normal bowel movements with his last bowel movement yesterday that was soft and was not painful. No blood in his stools. No other complaints at this time. As the pain felt similar to his previous perirectal abscesses, he came into the ED for evaluation. Labs showed a white blood cell count [id number]. Hemoglobin A1c 9.9. CT scan of the abdomen and pelvis showed bright perirectal abscess measuring 5.2 x 4 cm. And incidental finding of cholelithiasis. He was admitted received IV metronidazole and ciprofloxacin in the ED. He has been switched to single agent IV vancomycin. He is now seen on the medical floor for surgical evaluation. He reports he is still a smoker of about 1 pack per day Review of Systems Review of Systems: All systems reviewed & are unremarkable except as noted in HPI and below PMFSH Past Medical History Medical History Elevated BP without diagnosis of hypertension History of tobacco abuse BMI 34.0-34.9,adult Perirectal abscess Yary infection of flexural skin DM2 (diabetes mellitus, type 2) Elevated hemoglobin A1c Indu-rectal abscess Surgical History Surgical History History of colonoscopy Age 50 History of incision and drainage Perirectal abscess Family History Family History Mother Cancer Alcoholism Father Acute myocardial infarction Social History Social History Social History: The patient is on his 2nd marriage and he has 2 children. The patient smoked in then quit smoking in went back to smoking and has not smoked for week. He was smoking a pack a cigarettes a day up until 1 week ago. 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 He denies any alcohol or marijuana or illicit drugs. Code status full code Smoking packs per day: 1 Smoking cigarettes per day: 20.0 Years smoked: 25 Smoking pack-years: 25.00 Smoking status: Current every day smoker Tobacco type: cigarettes Alcohol intake: never Substance use: never Substance use type: does not use Do You Feel Safe in your Home?: Yes Lack of Transportation: YES Lack of Food: Never True Current Housing: I Have Housing Concerned About Future Housing: No Difficulty Paying Gas/Electric Bills: No Difficulty Paying for Meds: No Currently Unemployed: No Education: Decline to Answer Difficulty w/ Childcare or Family Care: No Living arrangements: with family Occupation/Education: occupation 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 Gender identity (if verbalized by the patient): Male Sexual Orientation (if Verbalized by the Patient): Straight or Heterosexual Spiritual care concerns: No Meds Home Medications and Allergies Home Medications ?Medication ?Instructions ?Recorded ?Confirmed ?Type simvastatin 10 mg tablet 10 mg PO DAILY #90 tabs 06/03/24 08/31/24 Rx lisinopril 10 mg tablet 10 mg PO DAILY #90 tabs 07/27/24 08/31/24 Rx metformin 500 mg tablet 500 mg PO DAILY #90 tabs 07/27/24 08/31/24 Rx Allergies Allergy/AdvReac Type Severity Reaction Status Date / Time azithromycin Allergy Hives Verified 06/02/24 10:31 Vital Signs Vital Signs - 24 hr 08/31/24 12:06 08/31/24 16:29 08/31/24 18:44 Temperature 98.1 F Pulse Rate 96 98 90 Respiratory Rate 16 14 16 Blood Pressure 141/71 H 146/86 H 155/74 H Pulse Oximetry 97 98 98 Oxygen Delivery 08/31/24 19:23 08/31/24 20:00 09/01/24 05:36 Temperature 97.1 F L 97.1 F L Pulse Rate 89 72 Respiratory Rate 20 20 Blood Pressure 112/67 94/53 L Pulse Oximetry 93 97 Oxygen Delivery Room Air 09/01/24 06:50 09/01/24 08:00 Temperature Pulse Rate Respiratory Rate Blood Pressure 114/61 Pulse Oximetry Oxygen Delivery Room Air Exam Const: General: comfortable and average body habitus Orientation/consciousness: patient oriented x3 HENMT: Head: normocephalic and atraumatic Ears: hearing grossly normal bilaterally Mouth: Yes moist mucous membranes Eyes: General: appearance normal, both eyes and all related structures Pupils: Equal, round and reactive pupils present Neck: Neck: normal visual inspection and full ROM Resp: Effort & Inspection: no respiratory distress Auscultation: clear to auscultation bilaterally Cardio: Rate: regular rate Rhythm: regular rhythm Heart sounds: S1 normal heart sound present and S2 normal heart sound present Peripheral pulses: Peripheral pulses 2+ throughout GI: Inspection: non-distended GI Palp: Yes Soft to palpation, No Tenderness to palpation present (GI), No Guarding due to palpation present (GI) and No Rebound tenderness present Auscultation: normal bowel sounds Other: Visual inspection of perianal area with no obvious erythema, no drainage. There is induration and tenderness posteriorly and extending slightly right posterior. No obvious fluctuant area. Digital rectal exam deferred due to pain. Skin: General skin exam: normal color Neuro: General: moves all extremities and no focal motor deficits Speech: normal speech Motor exam (neuro): 5/5 motor strength present throughout Extrem: General: normal to inspection and no edema Psych: Mental Status: mental status grossly normal Attitude: cooperative Insight: Good insight present (Psych) Judgement: Good judgement present (Psych) Results Labs 09/01/24 05:22 09/01/24 05:22 Labs: Abnormal lab results 08/31/24 08/31/24 08/31/24 Range/Units 13:39 13:45 19:39 WBC 13.5 H (4.5-10.0) K/mm3 MPV 11.0 H (7.4-10.4) fl [place] % (Auto) 8.7 H (2.6-8.5) % Lymph # (Auto) 3.61 H (0.9-3.2) K/mm3 [place] # (Auto) 1.2 H (0.1-0.6) K/mm3 Eos # (Auto) (0-0.3) K/mm3 Abs Immat Gran (auto) 0.05 H (0.00-0.031) K/mm3 Absolute Neuts (auto) 8.2 H (1.3-6.7) K/mm3 Sodium 134 L (137-145) mmol/L Anion Gap (4-12) mmol/L Creatinine 0.61 L 0.70 L (0.7-1.3) mg/dL Glucose 153 H (65-110) mg/dL POC Capillary Glucose 167 H (65-105) mg/dl Hemoglobin A1c 9.9 H (<5.7) % C-Reactive Protein 4.1 H (<1.0) mg/dL 09/01/24 09/01/24 Range/Units 05:22 09:40 WBC 12.1 H (4.5-10.0) K/mm3 MPV 10.9 H (7.4-10.4) fl [place] % (Auto) 9.8 H (2.6-8.5) % Lymph # (Auto) 3.54 H (0.9-3.2) K/mm3 [place] # (Auto) 1.2 H (0.1-0.6) K/mm3 Eos # (Auto) 0.4 H (0-0.3) K/mm3 Abs Immat Gran (auto) 0.04 H (0.00-0.031) K/mm3 Absolute Neuts (auto) 6.8 H (1.3-6.7) K/mm3 Sodium 134 L (137-145) mmol/L Anion Gap 3 L (4-12) mmol/L Creatinine 0.53 L (0.7-1.3) mg/dL Glucose 151 H (65-110) mg/dL POC Capillary Glucose 143 H (65-105) mg/dl Hemoglobin A1c (<5.7) % C-Reactive Protein (<1.0) mg/dL Diabetes panel 08/31/24 08/31/24 09/01/24 Range/Units 13:39 13:45 05:22 Sodium 134 L 134 L (137-145) mmol/L Potassium 4.5 4.0 (3.4-5.0) mmol/L Chloride 100 101 (98-107) mmol/L Carbon Dioxide 29 30 (22-30) mmol/L BUN 11 16 (9-20) mg/dL Creatinine 0.61 L 0.70 L 0.53 L (0.7-1.3) mg/dL Glucose 153 H 151 H (65-110) mg/dL Hemoglobin A1c 9.9 H (<5.7) % Calcium 9.0 8.4 (8.4-10.2) mg/dL AST 26 (17-59) U/L ALT 15 (6-50) U/L Alkaline Phosphatase 95 (38-126) U/L Total Protein 8.0 (6.3-8.2) g/dL Albumin 3.9 (3.5-5.1) g/dL Calcium panel 08/31/24 09/01/24 Range/Units 13:39 05:22 Calcium 9.0 8.4 (8.4-10.2) mg/dL Albumin 3.9 (3.5-5.1) g/dL Pituitary panel 08/31/24 08/31/24 09/01/24 Range/Units 13:39 13:45 05:22 Sodium 134 L 134 L (137-145) mmol/L Potassium 4.5 4.0 (3.4-5.0) mmol/L Chloride 100 101 (98-107) mmol/L Carbon Dioxide 29 30 (22-30) mmol/L BUN 11 16 (9-20) mg/dL Creatinine 0.61 L 0.70 L 0.53 L (0.7-1.3) mg/dL Glucose 153 H 151 H (65-110) mg/dL Calcium 9.0 8.4 (8.4-10.2) mg/dL Adrenal panel 08/31/24 08/31/24 09/01/24 Range/Units 13:39 13:45 05:22 Sodium 134 L 134 L (137-145) mmol/L Potassium 4.5 4.0 (3.4-5.0) mmol/L Chloride 100 101 (98-107) mmol/L Carbon Dioxide 29 30 (22-30) mmol/L BUN 11 16 (9-20) mg/dL Creatinine 0.61 L 0.70 L 0.53 L (0.7-1.3) mg/dL Glucose 153 H 151 H (65-110) mg/dL Calcium 9.0 8.4 (8.4-10.2) mg/dL Total Bilirubin 1.2 (0.2-1.3) mg/dL AST 26 (17-59) U/L ALT 15 (6-50) U/L Alkaline Phosphatase 95 (38-126) U/L Total Protein 8.0 (6.3-8.2) g/dL Albumin 3.9 (3.5-5.1) g/dL All other labs normal. Imaging Additional studies: ITS Impressions Abdomen/Pelvis CT 08/31/24 14:09 IMPRESSION: 1. Right perirectal abscess measuring 5.2 x 4 cm. 2: Cholelithiasis.
[2024-09-01 11:17] LABS: Glucose Point of Care 158 mg/dl (65-105)
--- NOTE | 2024-09-01 11:18 | P.PNAN_ITS ---
Anes - Initial Pre Proc Eval Procedure: Operation Date: 09/01/24 12:00 Proposed Procedures p Incision and Drainage Indu-Rectal Abscess - Mery Barnes MD Date/Time: 09/01/24 11:18 Surgeon: Izzy Edwards APRN Pre Op Diagnosis: Perirectal abscess Patient Data Age: 58 Gender: M Height: 1.8 m Weight: 118.2 kg Last Vital Signs Temp 36.2 C L 09/01/24 05:36 Pulse 72 09/01/24 05:36 Resp 20 09/01/24 05:36 BP 114/61 09/01/24 06:50 Pulse Ox 97 09/01/24 05:36 O2 Del Method Room Air 09/01/24 08:00 Allergies Allergy/AdvReac Type Severity Reaction Status Date / Time azithromycin Allergy Hives Verified 06/02/24 10:31 Home Medications ?Medication ?Instructions ?Recorded ?Confirmed ?Type simvastatin 10 mg tablet 10 mg PO DAILY #90 tabs 06/03/24 08/31/24 Rx lisinopril 10 mg tablet 10 mg PO DAILY #90 tabs 07/27/24 08/31/24 Rx metformin 500 mg tablet 500 mg PO DAILY #90 tabs 07/27/24 08/31/24 Rx Laboratory Tests 08/31/24 08/31/24 08/31/24 13:39 13:45 19:39 WBC 13.5 H K/mm3 (4.5-10.0) RBC 5.34 M/mm3 (4.6-6.20) Hgb 17.3 g/dL (14.0-18.0) Hct 49.3 % (42.0-52.0) MCV 92.3 fl (80-100) MCH 32.4 pg (26-34) MCHC 35.1 g/dl (32-36) RDW 12.4 % (11.5-14.5) Plt Count 221 k/mm3 (150-375) MPV 11.0 H fl (7.4-10.4) Immature Gran % (Auto) 0.4 % (0-0.5) Neut % (Auto) 60.8 % (45.5-73.1) Lymph % (Auto) 26.8 % (18.3-44.2) [place] % (Auto) 8.7 H % (2.6-8.5) Eos % (Auto) 2.4 % (0-4.4) Baso % (Auto) 0.9 % (0.2-1.2) Lymph # (Auto) 3.61 H K/mm3 (0.9-3.2) [place] # (Auto) 1.2 H K/mm3 (0.1-0.6) Eos # (Auto) 0.3 K/mm3 (0-0.3) Baso # (Auto) 0.1 K/mm3 (0.0-0.1) Abs Immat Gran (auto) 0.05 H K/mm3 (0.00-0.031) Absolute Neuts (auto) 8.2 H K/mm3 (1.3-6.7) Absolute Nucleated RBC 0.000 K/mm3 (0.0-0.012) Nucleated RBC % 0.0 % (0.0-0.2) ESR 19 mm/hr (0-20) PT 13.8 Seconds (11.1-14.7) INR 1.0 APTT 27.9 Seconds (22.3-36.8) Sodium 134 L mmol/L (137-145) Potassium 4.5 mmol/L (3.4-5.0) Chloride 100 mmol/L (98-107) Carbon Dioxide 29 mmol/L (22-30) Anion Gap 5 mmol/L (4-12) BUN 11 mg/dL (9-20) Creatinine 0.61 L mg/dL 0.70 L mg/dL (0.7-1.3) (0.8-1.5) Estim Creat Clear Calc 148 ml/min 131 ml/min Estimated GFR > 60 > 60 (59 - ) (59 - ) Glucose 153 H mg/dL (65-110) POC Capillary Glucose 167 H mg/dl (65-105) Hemoglobin A1c 9.9 H % (<5.7) Lactic Acid 1.4 mmol/L (0.7-2.0) Calcium 9.0 mg/dL (8.4-10.2) Total Bilirubin 1.2 mg/dL (0.2-1.3) AST 26 U/L (17-59) ALT 15 U/L (6-50) Alkaline Phosphatase 95 U/L (38-126) C-Reactive Protein 4.1 H mg/dL (<1.0) Total Protein 8.0 g/dL (6.3-8.2) Albumin 3.9 g/dL (3.5-5.1) 09/01/24 09/01/24 09/01/24 05:22 09:40 11:12 WBC 12.1 H K/mm3 (4.5-10.0) RBC 4.62 M/mm3 (4.6-6.20) Hgb 14.9 g/dL (14.0-18.0) Hct 44.2 % (42.0-52.0) MCV 95.7 fl (80-100) MCH 32.3 pg (26-34) MCHC 33.7 g/dl (32-36) RDW 12.4 % (11.5-14.5) Plt Count 215 k/mm3 (150-375) MPV 10.9 H fl (7.4-10.4) Immature Gran % (Auto) 0.3 % (0-0.5) Neut % (Auto) 56.3 % (45.5-73.1) Lymph % (Auto) 29.2 % (18.3-44.2) [place] % (Auto) 9.8 H % (2.6-8.5) Eos % (Auto) 3.4 % (0-4.4) Baso % (Auto) 1.0 % (0.2-1.2) Lymph # (Auto) 3.54 H K/mm3 (0.9-3.2) [place] # (Auto) 1.2 H K/mm3 (0.1-0.6) Eos # (Auto) 0.4 H K/mm3 (0-0.3) Baso # (Auto) 0.1 K/mm3 (0.0-0.1) Abs Immat Gran (auto) 0.04 H K/mm3 (0.00-0.031) Absolute Neuts (auto) 6.8 H K/mm3 (1.3-6.7) Absolute Nucleated RBC 0.000 K/mm3 (0.0-0.012) Nucleated RBC % 0.0 % (0.0-0.2) ESR PT INR APTT Sodium 134 L mmol/L (137-145) Potassium 4.0 mmol/L (3.4-5.0) Chloride 101 mmol/L (98-107) Carbon Dioxide 30 mmol/L (22-30) Anion Gap 3 L mmol/L (4-12) BUN 16 mg/dL (9-20) Creatinine 0.53 L mg/dL (0.7-1.3) Estim Creat Clear Calc 167 ml/min Estimated GFR > 60 (59 - ) Glucose 151 H mg/dL (65-110) POC Capillary Glucose 143 H mg/dl 158 H mg/dl (65-105) (65-105) Hemoglobin A1c Lactic Acid Calcium 8.4 mg/dL (8.4-10.2) Total Bilirubin AST ALT Alkaline Phosphatase C-Reactive Protein Total Protein Albumin Patient hx anesthesia problems: none Family hx anesthesia problems: none Results Review: All pre-operative results and documents have been reviewed as part of the pre- operative evaluation. [facility] Past Medical History Medical History Elevated BP without diagnosis of hypertension History of tobacco abuse BMI 34.0-34.9,adult Perirectal abscess Yary infection of flexural skin DM2 (diabetes mellitus, type 2) Elevated hemoglobin A1c Indu-rectal abscess Surgical History Surgical History History of colonoscopy Age 50 History of incision and drainage Perirectal abscess Family History Family History Mother Cancer Alcoholism Father Acute myocardial infarction Social History Social History Social History: The patient is on his 2nd marriage and he has 2 children. The patient smoked in then quit smoking in went back to smoking and has not smoked for week. He was smoking a pack a cigarettes a day up until 1 week ago. 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 He denies any alcohol or marijuana or illicit drugs. Code status full code Smoking packs per day: 1 Smoking cigarettes per day: 20.0 Years smoked: 25 Smoking pack-years: 25.00 Smoking status: Current every day smoker Tobacco type: cigarettes Alcohol intake: never Substance use: never Substance use type: does not use Do You Feel Safe in your Home?: Yes Lack of Transportation: YES Lack of Food: Never True Current Housing: I Have Housing Concerned About Future Housing: No Difficulty Paying Gas/Electric Bills: No Difficulty Paying for Meds: No Currently Unemployed: No Education: Decline to Answer Difficulty w/ Childcare or Family Care: No Living arrangements: with family Occupation/Education: occupation 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 Gender identity (if verbalized by the patient): Male Sexual Orientation (if Verbalized by the Patient): Straight or Heterosexual Spiritual care concerns: No Anes - Eval Final PreProcedure Day of Procedure 09/01/24 11:18 Patient weight: obese Heart: regular rate and rhythm Lungs: clear to auscultation Airway: Mallampati scale class II Neurological: alert and oriented Last oral intake: >/= 8 hours ASA classification: III Emergent: no Anesthetic plan: proceed Anesthesia type and monitoring: general LMA and standard monitoring Results Review: All pre-operative results and documents have been reviewed as part of the pre- operative evaluation. Informed Consent: The patient's anesthetic plan and its attendant risks and benefits were discussed with the patient/family/POA. Questions were solicited and answers provided to the satisfaction of the patient/family/POA.
[2024-09-01] MEDS: LACTATED RINGERS 1,000 ML 30 ML IV CONT (11:19)
--- NOTE | 2024-09-01 11:58 | WPDHPUPDATE1 ---
History and Physical Update Update Date/Time: 09/01/24 11:58 History and Physical has been reviewed, including an updated exam of the patient. There are NO changes in the patient's condition. Risks, benefits, and alternatives have been discussed and questions answered. Patient agrees to proceed with procedure.
[2024-09-01] MEDS: BUPIVACAINE/EPINEPHRINE 0.5% 50 ML VIAL 10 ML INFILTRATE (12:18)
[2024-09-01] MEDS: PIPERACILLN/TAZ 3.375GM/NS50ML 3.375 GM/50 ML BAG IVPB ×3 (12:20→23:31)
--- NOTE | 2024-09-01 12:43 | P.OP_ITS ---
Procedure Note - Detailed Date of Procedure 09/01/24 Pre-op Diagnosis recurrent perirectal abscess Post-op Diagnosis Same Procedure Performed Complex incision and drainage recurrent right perirectal abscess Surgeon Mery Barnes MD Anesthesia General and Local Indications 58-year-old male with uncontrolled diabetes presenting with recurrent right perirectal abscess Findings recurrent right perirectal abscess measuring 5.2 x 4 cm, suggestion of fistula tract to the anal canal Description of Procedure The patient was taken the operating room and placed in modified lithotomy position. After adequate induction of general anesthesia, the patient was prepped and draped in the normal sterile fashion. A time-out was then done to verify the patient's identity, as well as the procedure being performed. I then localized the area in and around the right perianal area. I then made an incision in the most fluctuant area. Some bloody purulent drainage was noted at this point. I then used a hemostat to bluntly dissect around this cavity. Once this cavity was completely opened and drained, it measured approximately 5.2 x 4 cm. I then used a probe over around the cavity looking for a fistula tract to t he anal canal. There was a suggestion of an area that connected, however this was not obviously open. I then copiously irrigated the cavity. The cavity was then packed with half-inch iodoform to keep the area open and draining. Sterile dressing was then placed. The patient tolerated the procedure well and was extubated postoperatively. He will be transferred to the recovery room in stable condition. Estimated Blood Loss 5 Drains No Packing Yes Pathology None sent Complications No immediate complications Condition Stable Disposition PACU [facility] Billing Surgery - Charge Forward: Surgery Billing
[2024-09-01 12:59] LABS: Glucose Point of Care 143 mg/dl (65-105)
[2024-09-01] MEDS: fentaNYL CITRATE INJ (*CRX) 100 MCG/2 ML VIAL 25 MCG IV PUSH ×4 (13:32→13:41)
[2024-09-01 17:22] LABS: Glucose Point of Care 167 mg/dl (65-105)
[2024-09-01] MEDS: HYDROmorphone HCL INJ (*CRX) 1 MG/ML SYR IV PUSH ×2 (17:30→20:54)
[2024-09-01] MEDS: NICOTINE (*PBKC) 21 MG PATCH 1 PATCH TRANSDERM (17:31)
[2024-09-01 20:54] LABS: Glucose Point of Care 246 mg/dl (65-105)
[2024-09-01] MEDS: KETOROLAC 30 MG/ML VIAL (*BKC) IV PUSH (21:52)
--- NOTE | 2024-09-01 23:38 | PC.NURSE ---
Patient refusing to take oral pain medication for pain control. Patient specifically asking for dilaudid and states it makes me sleep. Educated patient that he needs to manage pain with oral medications to prepare for discharge home. Educated that norco will last longer than the IV pain medication.
[2024-09-02] MEDS: HYDROmorphone HCL INJ (*CRX) 1 MG/ML SYR IV PUSH ×4 (00:14→11:07)
[2024-09-02 04:12] VITALS: BP 111/62; PULSE 86; RESP 18; TEMP 36.2; O2SAT 92
[2024-09-02] MEDS: PIPERACILLN/TAZ 3.375GM/NS50ML 3.375 GM/50 ML BAG IVPB ×2 (05:22→13:20)
[2024-09-02] MEDS: HYDROcodone/acetaminophen (*CRX) 5-325 MG TABLET 1 TAB PO ×2 (05:24→13:25)
[2024-09-02 06:08] LABS: Basophils Absolute Auto 0.1 K/mm3 (0.0-0.1); Basophils Percent Auto 0.4 % (0.2-1.2); Eosinophils Absolute Auto 0.2 K/mm3 (0-0.3); Eosinophils Percent Auto 1.3 % (0-4.4); Hematocrit 45.2 % (42.0-52.0); Hemoglobin 15.4 g/dL (14.0-18.0); Immature Granulocyte Absolute 0.08 K/mm3 (0.00-0.031); Immature Granulocyte Percent A 0.5 % (0-0.5); Lymphocytes Absolute Auto 2.95 K/mm3 (0.9-3.2); Lymphocytes Percent Auto 17.5 % (18.3-44.2); Mean Corpuscular HGB Conc 34.1 g/dl (32-36); Mean Corpuscular Volume 96.8 fl (80-100); Mean Platelet Volume 11.2 fl (7.4-10.4); Monocytes Absolute Auto 1.1 K/mm3 (0.1-0.6); Monocytes Percent Auto 6.6 % (2.6-8.5); Neutrophils Absolute Auto 12.5 K/mm3 (1.3-6.7); Neutrophils Percent Auto 73.7 % (45.5-73.1); Platelet Count Result 197 k/mm3 (150-375); Red Blood Count 4.67 M/mm3 (4.6-6.20); Red Cell Distribution Width 12.3 % (11.5-14.5); White Blood Count 16.9 K/mm3 (4.5-10.0)
[2024-09-02 06:28] LABS: Alanine Aminotransferase 12 U/L (6-50); Albumin Level 3.4 g/dL (3.5-5.1); Alkaline Phosphatase 78 U/L (38-126); Anion Gap 0 mmol/L (4-12); Aspartate Amino Transferase 23 U/L (17-59); Bilirubin,Total 1.5 mg/dL (0.2-1.3); Blood Urea Nitrogen 21 mg/dL (9-20); Calcium 7.9 mg/dL (8.4-10.2); Carbon Dioxide 31 mmol/L (22-30); Chloride 101 mmol/L (98-107); Estimated CRCL calculation 112 ml/min; Estimated Glomerular Filt Rate > 60; Glucose 124 mg/dL (65-110); Potassium 4.1 mmol/L (3.4-5.0); Sodium 132 mmol/L (137-145)
[2024-09-02 08:30] VITALS: O2SAT 93
[2024-09-02] MEDS: SIMVASTATIN 10 MG TABLET PO (08:38)
[2024-09-02] MEDS: NICOTINE (*PBKC) 21 MG PATCH 1 PATCH TRANSDERM (08:38)
[2024-09-02] MEDS: lisinopriL 10 MG TABLET PO (08:38)
[2024-09-02 08:46] LABS: Glucose Point of Care 190 mg/dl (65-105)
--- NOTE | 2024-09-02 11:34 | P.PNGS_ITS ---
Progress Note: A&P Assessment and Plan (1) Perirectal abscess: Code(s): K61.1 - Rectal abscess Status: Acute Assessment and Plan: * S/p I&D yesterday. Appears adequately drained. Continue daily packing dressing changes. Will transition to oral analgesics. If pain is controlled on oral analgesics later today or tomorrow, then he could discharge home on oral antibiotics from a surgical standpoint. F/u in [address] Barnes. Plan I have discussed the patient's case and plan of care with Dr. Barnes. Subjective Subjective Date/Time Seen: 09/02/24 11:34 Post Op day: 1 (I&D perirectal abscess) Patient reports: no new complaints, voiding w/o difficulty, flatus, no bowel movement and afebrile Interval history: Patient feels like the perirectal pain and pressure has improved significantly following drainage. He is still taking the Dilaudid and reports more incisional sharp pain today. No other complaints at this time. Exam Narrative: perirectal abscess with packing removed from incision, moderate amount of serosanguineous drainage on gauze dressing, no purulent drainage, incision repacked with 1/4 iodoform gauze Objective Data Vital Signs Vital Signs: Vital Signs - 24 hr 09/01/24 12:40 09/01/24 12:55 09/01/24 13:10 Temperature 98.0 F Pulse Rate 84 82 82 Respiratory Rate 18 22 H 20 Blood Pressure 104/58 L 109/65 124/73 Pulse Oximetry 96 97 97 Oxygen Delivery Simple Face Mask Simple Face Mask Simple Face Mask Oxygen Flow Rate 6 6 6 09/01/24 13:25 09/01/24 13:40 09/01/24 14:00 Temperature 97.8 F Pulse Rate 86 88 109 H Respiratory Rate 20 20 16 Blood Pressure 133/76 137/79 167/90 H Pulse Oximetry 99 92 91 Oxygen Delivery Room Air Room Air Oxygen Flow Rate 09/01/24 20:00 09/01/24 20:46 09/01/24 23:31 Temperature 98.9 F 97.0 F L Pulse Rate 110 H 88 Respiratory Rate 18 20 Blood Pressure 108/58 L 118/60 Pulse Oximetry 94 93 Oxygen Delivery Room Air Oxygen Flow Rate 09/02/24 04:12 09/02/24 08:00 09/02/24 08:30 Temperature 97.2 F L Pulse Rate 86 Respiratory Rate 18 Blood Pressure 111/62 Pulse Oximetry 92 93 Oxygen Delivery Room Air Room Air Oxygen Flow Rate Intake/Output Intake/Output: Intake & Output 08/30/24 08/31/24 09/01/24 09/02/24 23:59 23:59 23:59 23:59 Intake Total 600 2230.5 2120 Output Total 640 220 Balance 600 1590.5 1900 Meds/Results Medications: Active Medications Generic Name Dose Route Start Last Admin Trade Name Freq PRN Reason Stop Dose Admin Acetaminophen 650 mg 08/31/24 16:08 08/31/24 23:57 Acetaminophen 325 Mg Tablet PO 650 mg Q4H PRN Administration Mild Pain (1-3) or Fever Hydrocodone Bitart/Acetaminophen 1 tab 08/31/24 21:24 09/02/24 05:24 Hydrocodone/Acetaminophen (*Crx) 5-325 Mg Tablet PO 1 tab Q6H PRN Administration Pain Rated 4-6 Dextrose 12.5 gm 08/31/24 20:25 Dextrose 50% 25 Gm/50 Ml Syringe IV PUSH PRN PRN Hypoglycemia Protocol Glucagon 1 mg 08/31/24 20:25 Glucagon For Inj 1 Mg Vial IM PRN PRN Hypoglycemia Protocol Glucose 15 gm 08/31/24 20:25 Glucose Oral Gel 15 Gm Of Glucse In 37.5 Gm Tube PO PRN PRN Hypoglycemia Protocol Hydromorphone HCl 1 mg 09/01/24 10:06 09/02/24 08:39 Hydromorphone Hcl Inj (*Crx) 1 Mg/Ml Syr IV PUSH 1 mg Q3H PRN Administration Pain Rated 7-10 Dextrose 1,000 mls @ 100 mls/hr 08/31/24 20:25 Dextrose 5% 1,000 Ml IVPB PRN PRN Hypoglycemia Protocol Piperacillin/Tazobactam/Dextrose 3.375 gm in 50 mls @ 100 mls/hr 09/01/24 12:00 09/02/24 05:52 Zosyn 3.375 Gm/Ns 50 Ml IVPB Infused Q6H AUGUST Infusion Ketorolac Tromethamine 30 mg 08/31/24 16:08 09/01/24 21:52 Ketorolac 30 Mg/Ml Vial (*Bkc) IV PUSH 09/05/24 16:07 30 mg Q6H PRN Administration Pain Rated 4-6 Lisinopril 10 mg 09/01/24 09:00 09/02/24 08:38 Lisinopril 10 Mg Tablet PO 10 mg DAILY AUGUST Administration Nicotine 1 patch 08/31/24 20:50 09/02/24 08:38 Nicotine (*Pbkc) 21 Mg Patch TRANSDERM 1 patch DAILY AUGUST Administration Ondansetron HCl 4 mg 08/31/24 16:08 Ondansetron Inj 4 Mg/2 Ml Vial IV PUSH Q4H PRN Nausea Simvastatin 10 mg 09/01/24 09:00 09/02/24 08:38 Simvastatin 10 Mg Tablet PO 10 mg DAILY AUGUST Administration Radiology Results: ITS Impressions Abdomen/Pelvis CT 08/31/24 14:09 IMPRESSION: 1. Right perirectal abscess measuring 5.2 x 4 cm. 2: Cholelithiasis. Labs Labs: Laboratory Results - last 24 hr 09/01/24 09/01/24 09/01/24 12:49 17:12 20:51 WBC RBC Hgb Hct MCV MCH MCHC RDW Plt Count MPV Immature Gran % (Auto) Neut % (Auto) Lymph % (Auto) [place] % (Auto) Eos % (Auto) Baso % (Auto) Lymph # (Auto) [place] # (Auto) Eos # (Auto) Baso # (Auto) Abs Immat Gran (auto) Absolute Neuts (auto) Absolute Nucleated RBC Nucleated RBC % Sodium Potassium Chloride Carbon Dioxide Anion Gap BUN Creatinine Estim Creat Clear Calc Estimated GFR Glucose POC Capillary Glucose 143 H 167 H 246 H Calcium Total Bilirubin AST ALT Alkaline Phosphatase Total Protein Albumin 09/02/24 09/02/24 05:30 08:36 WBC 16.9 H RBC 4.67 Hgb 15.4 Hct 45.2 MCV 96.8 MCH 33.0 MCHC 34.1 RDW 12.3 Plt Count 197 MPV 11.2 H Immature Gran % (Auto) 0.5 Neut % (Auto) 73.7 H Lymph % (Auto) 17.5 L [place] % (Auto) 6.6 Eos % (Auto) 1.3 Baso % (Auto) 0.4 Lymph # (Auto) 2.95 [place] # (Auto) 1.1 H Eos # (Auto) 0.2 Baso # (Auto) 0.1 Abs Immat Gran (auto) 0.08 H Absolute Neuts (auto) 12.5 H Absolute Nucleated RBC 0.000 Nucleated RBC % 0.0 Sodium 132 L Potassium 4.1 Chloride 101 Carbon Dioxide 31 H Anion Gap 0 L BUN 21 H Creatinine 0.82 Estim Creat Clear Calc 112 Estimated GFR > 60 Glucose 124 H POC Capillary Glucose 190 H Calcium 7.9 L Total Bilirubin 1.5 H AST 23 ALT 12 Alkaline Phosphatase 78 Total Protein 7.0 Albumin 3.4 L
[2024-09-02 11:53] LABS: Glucose Point of Care 144 mg/dl (65-105)
--- NOTE | 2024-09-02 12:48 | PM.DS ---
DS: Summary Time Spent with Patient Time attestation: Total time spent providing and/or coordinating discharge services: DS: Data Data Completed and Pending Labs on day of discharge: Labs from last 24 hours 09/02/24 09/02/24 09/02/24 11:47 08:36 05:30 WBC 16.9 H RBC 4.67 Hgb 15.4 Hct 45.2 MCV 96.8 MCH 33.0 MCHC 34.1 RDW 12.3 Plt Count 197 MPV 11.2 H Immature Gran % (Auto) 0.5 Neut % (Auto) 73.7 H Lymph % (Auto) 17.5 L [place] % (Auto) 6.6 Eos % (Auto) 1.3 Baso % (Auto) 0.4 Lymph # (Auto) 2.95 [place] # (Auto) 1.1 H Eos # (Auto) 0.2 Baso # (Auto) 0.1 Abs Immat Gran (auto) 0.08 H Absolute Neuts (auto) 12.5 H Absolute Nucleated RBC 0.000 Nucleated RBC % 0.0 Sodium 132 L Potassium 4.1 Chloride 101 Carbon Dioxide 31 H Anion Gap 0 L BUN 21 H Creatinine 0.82 Estim Creat Clear Calc 112 Estimated GFR > 60 Glucose 124 H POC Capillary Glucose 144 H 190 H Calcium 7.9 L Total Bilirubin 1.5 H AST 23 ALT 12 Alkaline Phosphatase 78 Total Protein 7.0 Albumin 3.4 L 09/01/24 09/01/24 09/01/24 20:51 17:12 12:49 WBC RBC Hgb Hct MCV MCH MCHC RDW Plt Count MPV Immature Gran % (Auto) Neut % (Auto) Lymph % (Auto) [place] % (Auto) Eos % (Auto) Baso % (Auto) Lymph # (Auto) [place] # (Auto) Eos # (Auto) Baso # (Auto) Abs Immat Gran (auto) Absolute Neuts (auto) Absolute Nucleated RBC Nucleated RBC % Sodium Potassium Chloride Carbon Dioxide Anion Gap BUN Creatinine Estim Creat Clear Calc Estimated GFR Glucose POC Capillary Glucose 246 H 167 H 143 H Calcium Total Bilirubin AST ALT Alkaline Phosphatase Total Protein Albumin Preliminary micro results at discharge 08/31/24 13:39 Blood Culture - Preliminary Blood 08/31/24 14:23 Blood Culture - Preliminary Blood Discharge Plan Discharge Consulting providers: Mery Barnes Discharge Instructions: Wound care: Pack perirectal incision with iodoform gauze daily. Cover with plain gauze and change as needed throughout the day when soiled. Would recommend showering and cleansing the area at least once daily once packing is removed. Also clean the area after each bowel movement. You may take a stool softener daily [id number]. Pain medication was sent to the pharmacy. Take as prescribed only as needed for pain. Follow-up with Dr. Barnes in 2 weeks. Call to set up an appointment [phone]. Call sooner with any surgical questions or concerns. Patient Language: [place] Discharge Medications: New hydrocodone-acetaminophen 5-325 mg Tablet 1 tablet PO Q6H PRN (Reason: Pain Rated 4-6) Qty: 10 0RF ibuprofen 600 mg tablet 600 mg PO TID PRN (Reason: pain) 6 Days Qty: 18 0RF amoxicillin-pot clavulanate 875-125 mg tablet 1 tablet PO Q12H 10 Days Qty: 20 0RF No Action simvastatin 10 mg tablet 10 mg PO DAILY Qty: 90 1RF metformin 500 mg tablet 500 mg PO DAILY Qty: 90 1RF lisinopril 10 mg tablet 10 mg PO DAILY Qty: 90 0RF Date of admission: 08/31/24 16:08 Primary Care Provider: Karis Willoughby Admitting Provider: Mendez Doe Attending physician on admission: Izzy Edwards Condition: Stable
[2024-09-02 14:00] VITALS: BP 110/54; PULSE 90; RESP 19; TEMP 36; O2SAT 94
--- NOTE | 2024-09-02 14:24 | WPDANESPN ---
Anes - Prog Note Post-Op Date/Time: 09/02/24 14:24 Cardiovascular status: normal Respiratory status: normal Airway patency: baseline Mental status: baseline Post-Op hydration status: normal Vital Signs: Last Vital Signs Temp 96.8 F L 09/02/24 14:00 Pulse 90 09/02/24 14:00 Resp 19 09/02/24 14:00 BP 110/54 L 09/02/24 14:00 Pulse Ox 94 09/02/24 14:00 O2 Del Method Room Air 09/02/24 08:30 O2 Flow Rate 6 09/01/24 13:10 Pain Score (VAS): 0/10 I/O: Intake & Output 09/01/24 09/02/24 09/02/24 23:59 07:59 15:59 Intake Total 290 1400 960 Output Total 640 430 Balance -350 1400 530 Laboratory Tests 09/02/24 05:30 09/02/24 05:30 09/01/24 09/01/24 09/02/24 17:12 20:51 05:30 WBC 16.9 H RBC 4.67 Hgb 15.4 Hct 45.2 MCV 96.8 MCH 33.0 MCHC 34.1 RDW 12.3 Plt Count 197 MPV 11.2 H Immature Gran % (Auto) 0.5 Neut % (Auto) 73.7 H Lymph % (Auto) 17.5 L [place] % (Auto) 6.6 Eos % (Auto) 1.3 Baso % (Auto) 0.4 Lymph # (Auto) 2.95 [place] # (Auto) 1.1 H Eos # (Auto) 0.2 Baso # (Auto) 0.1 Abs Immat Gran (auto) 0.08 H Absolute Neuts (auto) 12.5 H Absolute Nucleated RBC 0.000 Nucleated RBC % 0.0 Sodium 132 L Potassium 4.1 Chloride 101 Carbon Dioxide 31 H Anion Gap 0 L BUN 21 H Creatinine 0.82 Estim Creat Clear Calc 112 Estimated GFR > 60 Glucose 124 H POC Capillary Glucose 167 H 246 H Calcium 7.9 L Total Bilirubin 1.5 H AST 23 ALT 12 Alkaline Phosphatase 78 Total Protein 7.0 Albumin 3.4 L 09/02/24 09/02/24 08:36 11:47 WBC RBC Hgb Hct MCV MCH MCHC RDW Plt Count MPV Immature Gran % (Auto) Neut % (Auto) Lymph % (Auto) [place] % (Auto) Eos % (Auto) Baso % (Auto) Lymph # (Auto) [place] # (Auto) Eos # (Auto) Baso # (Auto) Abs Immat Gran (auto) Absolute Neuts (auto) Absolute Nucleated RBC Nucleated RBC % Sodium Potassium Chloride Carbon Dioxide Anion Gap BUN Creatinine Estim Creat Clear Calc Estimated GFR Glucose POC Capillary Glucose 190 H 144 H Calcium Total Bilirubin AST ALT Alkaline Phosphatase Total Protein Albumin Microbiology 08/31/24 13:39 Blood Blood Culture - Preliminary 08/31/24 14:23 Blood Blood Culture - Preliminary Post-procedural complaints: none Patient Feedback: Patient satisfied with anesthetic care.
--- NOTE | 2024-09-02 14:56 | P.PNIM_ITS ---
Progress Note: A&P Assessment and Plan (1) Indu-rectal abscess: Code(s): K61.1 - Rectal abscess Status: Acute Assessment and Plan: CT 02/2024 which showed a 2.7 x 1.0 x 1.3 cm perianal abscess, 3.1 x 1.7 x 4.1 cm mass posterior to the rectum and was treated with I&D and Augmentin returns with reoccurring abscess * CT Right perirectal abscess measuring 5.2 x 4 cm. * Blood cultures pending * Given Cipro and Metronidazole in ER. * Started on Vancomycin. * General surgery consulted. * Will likely need I&D * Pain management * NPO for surgery consult 09/02: patient had surgical debridement with packing on 09/01 (2) DM2 (diabetes mellitus, type 2): Qualifiers: Diabetes mellitus halfway insulin use: without halfway use Diabetes mellitus complication status: with skin complications Diabetes mellitus complication detail: with dermatitis Qualified Code(s): E11.620 - Type 2 diabetes mellitus with diabetic dermatitis Code(s): E11.9 - Type 2 diabetes mellitus without complications Status: Acute Assessment and Plan: * Accu-Cheks a.c. HS * sliding scale insulin * hold metformin * Diabetic diet * Watch for hypoglycemia/hypoglycemic protocol ordered (3) Benign essential HTN: Code(s): I10 - Essential (primary) hypertension Status: Acute Assessment and Plan: * BP well controlled. * Continue Lisinopril. (4) Tobacco abuse: Code(s): Z72.0 - Tobacco use Status: Acute Assessment and Plan: * Encouraged with cessation. * Nicotine patch ordered. (5) Cholelithiasis: Code(s): K80.20 - Calculus of gallbladder without cholecystitis without obstruction Status: Acute Assessment and Plan: * incidental findings * Patient asymptomatic. * Monitor for now. (6) Obesity (BMI 30-39.9): Code(s): E66.9 - Obesity, unspecified Status: Acute Assessment and Plan: * Encouraged with lifestyle modification. Plan Code status: Full code per patient DVT prophylaxis: SCD Stress ulcer prophylaxis: NA PT/OT notes: NA Disposition: plan to discharge tomorrow after is taught how to do packing and pain is better controlled. Time Spent With Patient Time with patient: 15 - 25 minutes Subjective Date/time seen: 09/02/24 14:56 Interval history: Patient still having severe pain, only using Dilaudid for pain despite encouragement to try other relievers. He will have to have wound packing so we will plan DC tomorrow giving his time to learn how to do the packing and get better pain plan. Review of Systems Review of Systems: All systems reviewed & are unremarkable except as noted in HPI and below Exam Narrative: General: Well appearing, no acute distress. HEENT: Atraumatic, PERRL, EOM, anicteric, moist mucus membranes. NECK: Supple. Lungs: Clear bilaterally. Heart: RRR, no murmurs. Abdomen: Soft, non-tender, non-distended, positive BS X4 Quadrants. Extremities:No cyanosis, no edema. Skin: Warm and dry. No lesions noted. Rectum: Dressing in place, defer to surgery Neuro: Well oriented. Psych: Pleasant and co-operative. Objective Data Vital Signs Vital Signs: Vital Signs - 24 hr 09/01/24 20:00 09/01/24 20:46 09/01/24 23:31 Temperature 37.2 C 36.1 C L Pulse Rate 110 H 88 Respiratory Rate 18 20 Blood Pressure 108/58 L 118/60 Pulse Oximetry 94 93 Oxygen Delivery Room Air 09/02/24 04:12 09/02/24 08:00 09/02/24 08:30 Temperature 36.2 C L Pulse Rate 86 Respiratory Rate 18 Blood Pressure 111/62 Pulse Oximetry 92 93 Oxygen Delivery Room Air Room Air 09/02/24 14:00 Temperature 36.0 C L Pulse Rate 90 Respiratory Rate 19 Blood Pressure 110/54 L Pulse Oximetry 94 Oxygen Delivery Intake/Output Intake/Output: Intake & Output 08/30/24 08/31/24 09/01/24 09/02/24 23:59 23:59 23:59 23:59 Intake Total 600 2230.5 2360 Output Total 640 430 Balance 600 1590.5 1930 Meds/Results Medications: Active Medications Generic Name Dose Route Start Last Admin Trade Name Freq PRN Reason Stop Dose Admin Acetaminophen 650 mg 08/31/24 16:08 08/31/24 23:57 Acetaminophen 325 Mg Tablet PO 650 mg Q4H PRN Administration Mild Pain (1-3) or Fever Hydrocodone Bitart/Acetaminophen 1 tab 08/31/24 21:24 09/02/24 13:25 Hydrocodone/Acetaminophen (*Crx) 5-325 Mg Tablet PO 1 tab Q6H PRN Administration Pain Rated 4-6 Dextrose 12.5 gm 08/31/24 20:25 Dextrose 50% 25 Gm/50 Ml Syringe IV PUSH PRN PRN Hypoglycemia Protocol Glucagon 1 mg 08/31/24 20:25 Glucagon For Inj 1 Mg Vial IM PRN PRN Hypoglycemia Protocol Glucose 15 gm 08/31/24 20:25 Glucose Oral Gel 15 Gm Of Glucse In 37.5 Gm Tube PO PRN PRN Hypoglycemia Protocol Hydromorphone HCl 1 mg 09/01/24 10:06 09/02/24 08:39 Hydromorphone Hcl Inj (*Crx) 1 Mg/Ml Syr IV PUSH 1 mg Q3H PRN Administration Pain Rated 7-10 Dextrose 1,000 mls @ 100 mls/hr 08/31/24 20:25 Dextrose 5% 1,000 Ml IVPB PRN PRN Hypoglycemia Protocol Piperacillin/Tazobactam/Dextrose 3.375 gm in 50 mls @ 100 mls/hr 09/01/24 12:00 09/02/24 13:20 Zosyn 3.375 Gm/Ns 50 Ml IVPB 100 mls/hr Q6H AUGUST Administration Ketorolac Tromethamine 30 mg 08/31/24 16:08 09/01/24 21:52 Ketorolac 30 Mg/Ml Vial (*Bkc) IV PUSH 09/05/24 16:07 30 mg Q6H PRN Administration Pain Rated 4-6 Lisinopril 10 mg 09/01/24 09:00 09/02/24 08:38 Lisinopril 10 Mg Tablet PO 10 mg DAILY AUGUST Administration Nicotine 1 patch 08/31/24 20:50 09/02/24 08:38 Nicotine (*Pbkc) 21 Mg Patch TRANSDERM 1 patch DAILY AUGUST Administration Ondansetron HCl 4 mg 08/31/24 16:08 Ondansetron Inj 4 Mg/2 Ml Vial IV PUSH Q4H PRN Nausea Simvastatin 10 mg 09/01/24 09:00 09/02/24 08:38 Simvastatin 10 Mg Tablet PO 10 mg DAILY AUGUST Administration Radiology Results: ITS Impressions Abdomen/Pelvis CT 08/31/24 14:09 IMPRESSION: 1. Right perirectal abscess measuring 5.2 x 4 cm. 2: Cholelithiasis. Labs Labs: Laboratory Results - last 24 hr 09/01/24 09/01/24 09/02/24 17:12 20:51 05:30 WBC 16.9 H RBC 4.67 Hgb 15.4 Hct 45.2 MCV 96.8 MCH 33.0 MCHC 34.1 RDW 12.3 Plt Count 197 MPV 11.2 H Immature Gran % (Auto) 0.5 Neut % (Auto) 73.7 H Lymph % (Auto) 17.5 L [place] % (Auto) 6.6 Eos % (Auto) 1.3 Baso % (Auto) 0.4 Lymph # (Auto) 2.95 [place] # (Auto) 1.1 H Eos # (Auto) 0.2 Baso # (Auto) 0.1 Abs Immat Gran (auto) 0.08 H Absolute Neuts (auto) 12.5 H Absolute Nucleated RBC 0.000 Nucleated RBC % 0.0 Sodium 132 L Potassium 4.1 Chloride 101 Carbon Dioxide 31 H Anion Gap 0 L BUN 21 H Creatinine 0.82 Estim Creat Clear Calc 112 Estimated GFR > 60 Glucose 124 H POC Capillary Glucose 167 H 246 H Calcium 7.9 L Total Bilirubin 1.5 H AST 23 ALT 12 Alkaline Phosphatase 78 Total Protein 7.0 Albumin 3.4 L 09/02/24 09/02/24 08:36 11:47 WBC RBC Hgb Hct MCV MCH MCHC RDW Plt Count MPV Immature Gran % (Auto) Neut % (Auto) Lymph % (Auto) [place] % (Auto) Eos % (Auto) Baso % (Auto) Lymph # (Auto) [place] # (Auto) Eos # (Auto) Baso # (Auto) Abs Immat Gran (auto) Absolute Neuts (auto) Absolute Nucleated RBC Nucleated RBC % Sodium Potassium Chloride Carbon Dioxide Anion Gap BUN Creatinine Estim Creat Clear Calc Estimated GFR Glucose POC Capillary Glucose 190 H 144 H Calcium Total Bilirubin AST ALT Alkaline Phosphatase Total Protein Albumin Pulse Oximetry SpO2 results: 92-94% on room air Attestation: I personally reviewed and interpreted this pulse oximetry as follows: Interpretation: no need for supplemental oxygenation at this time Quality VTE Prophylaxis VTE prophylaxis: mechanical ordered Dictation performed by [employer] direct speech recognition software, therefore fire officer variants and typographical errors may occur. Hospitalist MIPS Advance Care Plan I have confirmed that the patient's Advanced Care Plan is present, code status is documented, or surrogate decision maker is listed in patient medical record.: Yes Medication Reconciliation I have utilized all available resources to obtain, update and review the patients current medications (includes all prescriptions, OTC, herbals, cannabis, and nutritional supplements).: Yes
--- NOTE | 2024-09-02 17:12 | P.DS_ITS ---
DS: Admitting Diagnosis Discharge Date 09/02/2024 Admitting Diagnosis Perirectal abscess, type 2 diabetes, essential hypertension, leukocytosis, tobacco abuse, cholelithiasis, obesity DS: Discharge Diagnosis Discharge Diagnosis (1) Indu-rectal abscess: Code(s): K61.1 - Rectal abscess Status: Acute (2) Tobacco abuse: Code(s): Z72.0 - Tobacco use Status: Acute (3) DM2 (diabetes mellitus, type 2): Qualifiers: Diabetes mellitus chcf insulin use: without rodent exterminator use Diabetes mellitus complication status: with skin complications Diabetes mellitus complication detail: with dermatitis Qualified Code(s): E11.620 - Type 2 diabetes mellitus with diabetic dermatitis Code(s): E11.9 - Type 2 diabetes mellitus without complications Status: Acute (4) Cholelithiasis: Code(s): K80.20 - Calculus of gallbladder without cholecystitis without obstruction Status: Acute (5) Benign essential HTN: Code(s): I10 - Essential (primary) hypertension Status: Acute (6) Leukocytosis: Code(s): D72.829 - Elevated white blood cell count, unspecified Status: Acute (7) Obesity (BMI 30-39.9): Code(s): E66.9 - Obesity, unspecified Status: Acute Plan discharge home continue packing pain medicine prescribed by surgery and antibiotics prescribed by surgery DS: Summary Hospital Course Reason for hospitalization: perirectal abscess Hospital Course: This is a 58-year-old male patient with a history of type 2 diabetes hypertension tobacco abuse with recurrent perirectal abscess. Patient underwent surgical debridement on 09/[address] Barnes. he had significant pain control problems and was requiring IV Dilaudid frequently. He was able to transition to oral [place] with adequate pain control on day of discharge. Time spent discussing smoking cessation with patient: 3 to 10 minutes Status at Discharge Functional status at discharge: independent ambulation Overall status at discharge: patient is progressing back to baseline Time Spent with Patient Time attestation: Total time spent providing and/or coordinating discharge services: 25 Minutes Time spent: Less than 30 minutes Exam Narrative: General: Well appearing, no acute distress. HEENT: Atraumatic, PERRL, EOM, anicteric, moist mucus membranes. NECK: Supple. Lungs: Clear bilaterally. Heart: RRR, no murmurs. Abdomen: Soft, non-tender, non-distended, +ve BS X4 Quadrants. Extremities:No cyanosis, no edema. Skin: Warm and dry. No lesions noted. Rectum: Right indu-rectal tenderness. No open area or drainage noted. Neuro: Well oriented. CN II-XII grossly intact. Psych: Pleasant and co-operative. DS: Data Data Completed and Pending Labs on day of discharge: Labs from last 24 hours 09/02/24 09/02/24 09/02/24 11:47 08:36 05:30 WBC 16.9 H RBC 4.67 Hgb 15.4 Hct 45.2 MCV 96.8 MCH 33.0 MCHC 34.1 RDW 12.3 Plt Count 197 MPV 11.2 H Immature Gran % (Auto) 0.5 Neut % (Auto) 73.7 H Lymph % (Auto) 17.5 L [place] % (Auto) 6.6 Eos % (Auto) 1.3 Baso % (Auto) 0.4 Lymph # (Auto) 2.95 [place] # (Auto) 1.1 H Eos # (Auto) 0.2 Baso # (Auto) 0.1 Abs Immat Gran (auto) 0.08 H Absolute Neuts (auto) 12.5 H Absolute Nucleated RBC 0.000 Nucleated RBC % 0.0 Sodium 132 L Potassium 4.1 Chloride 101 Carbon Dioxide 31 H Anion Gap 0 L BUN 21 H Creatinine 0.82 Estim Creat Clear Calc 112 Estimated GFR > 60 Glucose 124 H POC Capillary Glucose 144 H 190 H Calcium 7.9 L Total Bilirubin 1.5 H AST 23 ALT 12 Alkaline Phosphatase 78 Total Protein 7.0 Albumin 3.4 L 09/01/24 09/01/24 20:51 17:12 WBC RBC Hgb Hct MCV MCH MCHC RDW Plt Count MPV Immature Gran % (Auto) Neut % (Auto) Lymph % (Auto) [place] % (Auto) Eos % (Auto) Baso % (Auto) Lymph # (Auto) [place] # (Auto) Eos # (Auto) Baso # (Auto) Abs Immat Gran (auto) Absolute Neuts (auto) Absolute Nucleated RBC Nucleated RBC % Sodium Potassium Chloride Carbon Dioxide Anion Gap BUN Creatinine Estim Creat Clear Calc Estimated GFR Glucose POC Capillary Glucose 246 H 167 H Calcium Total Bilirubin AST ALT Alkaline Phosphatase Total Protein Albumin Preliminary micro results at discharge 08/31/24 13:39 Blood Culture - Preliminary Blood 08/31/24 14:23 Blood Culture - Preliminary Blood Procedures/Treatments: surgical debridement perirectal abscess with packing Discharge Plan Discharge Consulting providers: Mery Barnes Discharging Clinician: Donaldo Blood Anticipated Discharge Date/Time: 09/02/24 17:10 Patient Disposition: Home, Self-Care Activity: other - see discharge instructions Diet: diabetic Discharge Instructions: * Wound care: Pack perirectal incision with iodoform gauze daily. Cover with plain gauze and change as needed throughout the day when soiled. * Would recommend showering and cleansing the area at least once daily once packing is removed. Also clean the area after each bowel movement. * You may take a stool softener daily [id number]. * Pain medication was sent to the pharmacy. Take as prescribed only as needed for pain. * Follow-up with Dr. Barnes in 2 weeks. Call to set up an appointment [phone]. Call sooner with any surgical questions or concerns. Patient Instructions: Antibiotic Form Patient Language: Welsh Stand Alone Forms: General Discharge Information Follow-up/Referrals: Mery Barnes MD [Physician] - Call for Appointment Discharge Medications: New hydrocodone-acetaminophen 5-325 mg Tablet 1 tablet PO Q6H PRN (Reason: Pain Rated 4-6) Qty: 10 0RF ibuprofen 600 mg tablet 600 mg PO TID PRN (Reason: pain) 6 Days Qty: 18 0RF amoxicillin-pot clavulanate 875-125 mg tablet 1 tablet PO Q12H 10 Days Qty: 20 0RF nicotine [Nicoderm CQ] 21 mg/24 hr Patch 24 Hour 1 patch transdermal DAILY Qty: 30 0RF Continued simvastatin 10 mg tablet 10 mg PO DAILY Qty: 90 1RF metformin 500 mg tablet 500 mg PO DAILY Qty: 90 1RF lisinopril 10 mg tablet 10 mg PO DAILY Qty: 90 0RF Date of admission: 08/31/24 16:08 Primary Care Provider: Karis Willoughby Admitting Provider: Mendez Doe Attending physician on admission: Izzy Edwards Condition: Stable Hospitalist MIPS Heart Failure (Exclusion) Patient has history of Heart Transplant or Left Ventricular Assistive Device?: No IF YES, STOP HERE Heart Failure (Qualifier) Patient has current or prior documentation of LVEF less than or equal to 40%, or mod/servere depressed LVSF?: No IF NO, STOP HERE
[2024-09-02 17:20] LABS: Glucose Point of Care 177 mg/dl (65-105)
--- OUTSIDE RECORDS SUMMARY | 2024-09-06 20:27 | XMS_ITS | Encounter Summary ---
Author Organization [facility] Address [address] [place] [address] Care Team Providers Care Edge Blacker Name Role Phone Alf Khan DO Primary Care Provider Stephan rosa Reason for Visit * Reason Comments Staple removal if ready to be remov ed having headache and dizziness Encounter Details Date Type Department Care Team (Latest Contact Info) Description 07/17/2021 10:45 AM BISQUE KILN PLACER Office Visit [facility] - Family Medicine [address] [place] [address] Alf Khan DO Postconcussion syndrome (Primary Dx); Neck sprain, initial encounter; Laceration of scalp, initial encounter Social History Tobacco Use Types Packs/Day Years Used Date Smoking Tobacco: Every Day Cigarettes 1.5 25 Started: 12/07/1985; Last attempted to quit: 12/07/2010 Smokeless Tobacco: Never Alcohol Use Standard Drinks/Week Comments Yes 0 (1 standard drink = 0.6 oz pur e alcohol) social Sex and Gender Information Value Date Recorded Sex Assigned at Male 08/31/2020 7:44 AM BISQUE KILN PLACER Gender Identity Male 08/31/2020 7:44 AM BISQUE KILN PLACER Sexual Orientation Straight 08/31/2020 7: 44 AM BISQUE KILN PLACER COVID-19 Exposure Response Date Recorded In the last month, have you been in contact with someone who was confirmed or suspected to have Coronavirus / COVID-19? No / Unsure 07/13/2021 9:06 AM BISQUE KILN PLACER documented as of this encounter Last Filed Vital Signs Vital Sign Reading Time Taken Comments Blood Pressure 130/80 07/17/2021 11:09 AM BISQUE KILN PLACER Pulse 87 07/17/2021 11:09 AM BISQUE KILN PLACER Temperature 37 ??C (98.6 ??F) 07/17/2021 11: 09 AM BISQUE KILN PLACER Respiratory Rate - - Oxygen Saturation 95% 07/17/2021 11: 09 AM BISQUE KILN PLACER Inhaled Oxygen Concentration - - Weight 113.9 kg (251 lb 3.2 oz) 021 11:09 AM BISQUE KILN PLACER Height 180.3 cm (5' 11 ) 07/17/2021 11: 09 AM BISQUE KILN PLACER Body Mass Index 35.04 07/17/2021 11:09 AM BISQUE KILN PLACER documented in this encounter Functional Status Functional Status Response Date of Assess ment Is person deaf or have serious hearing difficult y? No 04/15/2014 Is person blind or have serious difficulty seein g? No 04/15/2014 Does person have serious dif ficulty walking/climbing stairs? No 04/15/2014 Does person have difficulty dressing/bathing? No 04/15/2014 Does person have difficulty doing errands alone? No 04/15/2014 Cognitive Status Response Date of Assessm ent Does person have difficulty concentrating/remembering/making decisions? No 04/15/2014 documented as of this encounter Progress Notes * Alf Khan, - 07/17/2021 11:23 AM CST Office Visit, Established [place], [id number] HISTORY: SYDNEE Trenton Crockett is a 55 year old male patient, here for: Chief Complaint Patient presents with ??? Staple removal if ready to be removed having headache and dizziness HPI: Patient is here for medication refill Says a concrete aj hit his head Saturday and they told him to use super glue and do another job. Finished job he was injured on and finished that job and was told to clean out his truck and was hurt at 10 am and was not allowed medical care until 2 pm. Has photophobia and N and some V and has trouble with screen lights at times like TV or computer work. Went to [facility] and CT was neg. Work comp has yet to see a company . patient has 10 meera in his head been there about a week. He says they really bothering he like to get them out. He is having a lot of post concussive syndrome symptoms. Can not concentrate, headaches, nausea and vomiting. Also patient has complained of neck pain since the ER visit and his significant other and him are both concerned that he could have an injury to his neck that needs to be diagnosed. They have still not set up a workman's comp appointment for him and actually sent him on a 2nd job after he was injured. Sending someone another job with a huge lac on their scalp that required 14 meera to close, seems to not be in the patient's best interest. He said it has ruined his trust with them the way they have handle this and he is worried that they did x-rays neck and something could be missed, so I told him I will x-ray this in document that they have not offered to see him yet cm the ER 1 time. Put meera in, and did no other evaluation of some he has got slammed in the head with a aj from a concrete hauler. Her Patient takes [place] for back pain. Pain is described as debilitating, occasionally burning and shooting pain, and on average is around 7-8/10. Some days it goes up to 9 and 10. Patient states medication helps with pain. No SE to Rx. BP is normal BP Readings from Last 3 Encounters: 07/17/21 130/80 07/13/21 165/88 05/04/21 138/88 Weight down 3 lbs. Wt Readings from Last 3 Encounters: 07/17/21 113.9 kg (251 lb 3.2 oz) 07/13/21 117 kg (258 lb) 05/04/21 117.5 kg (259 lb) Smokes 1 ppd and he is not interested in quitting and Counseled the patient on smoking cessation, Chantix, qzvv-gnc-jdaeyor nicotine replacement systems patches and gums. Told them the risks of smoking include lung cancer, bladder cancer, COPD, mi and stroke. They have to be involved in the smokingcessation program or it will not succeed. In other words I cannot make someone quit smoking they have to want to quit smoking. I can give you Chantix and advice on the knyi-xfx-wvbzulo nicotine systems and I would suggest to attempt to quit smoking as soon as you can. Spent 3-5 minutes explaining this to the patient and answering questions no CP or SOB Patient Active Problem List Diagnosis Date Noted ??? Intermittent asthma 11/19/2017 Priority: Not Prioritized ??? Perirectal abscess 09/05/2017 Priority: Not Prioritized ??? Pain medication agreement signed 06/24/2014 ??? Degeneration of lumbar or lumbosacral intervertebral disc 06/24/2014 ??? Degeneration of cervical intervertebral disc 06/24/2014 ??? Metabolic syndrome 06/24/2014 ??? Glucose intolerance (impaired glucose tolerance) 06/24/2014 ??? Benign prostatic hyperplasia 06/10/2012 IMO Update 02/23/2017 ??? Need for influenza vaccination 05/23/2011 ??? Hepatic steatosis 05/18/2011 ??? HTN (hypertension), benign 06/16/2009 ??? Hyperlipidemia 01/08/2009 ??? Arthritis 01/08/2009 Outpatient Medications Prior to Visit Medication Sig Dispense Refill ??? albuterol HFA (PROVENTIL;VENTOLIN;PROAIR) 108 (90 Base) MCG/ACT inhaler Inhale 2 (two) puffs bymouth every 4 hours as needed for Shortness of Breath, Wheezing or Cough 8.5 g 2 ??? HYDROcodone-acetaminophen (NORCO) 5-325 MG tablet Take 1 (one) tablet by mouth every 4 hours asneeded for Pain Dx M50.30 120 tablet 0 ??? HYDROcodone-acetaminophen (NORCO) 7.5-325 MG tablet Take 1 (one) tablet by mouth every 4 hours as needed for Pain Dx M50.30 120 tablet 0 ??? HYDROcodone-acetaminophen (NORCO) 7.5-325 MG tablet Take 1 (one) tablet by mouth every 4 hours as needed for Pain Dx M50.30 120 tablet 0 ??? sildenafil (REVATIO) 20 MG tablet TAKE 3- 5 TABLETS prn sex (Patient not taking: Reported on 07/17/2021) 100 tablet 11 No facility-administered medications prior to visit. PFSH, other pertinent history: Allergies Allergen Reactions ??? Zithromax [Azithromycin] Itching ??? Perry Inhibitors Cough Social History Smoking status: Current Every Day Smoker Packs/day: 1.50 Years: 25.00 Last attempt to quit: 12/07/2010 Smokeless tobacco: Never Used Alcohol use: Yes 0.0 standard drinks/week Comment: social Drug use: No Sexual activity: Not on file Family History Problem Relation Name Age of Onset ??? Cancer - Lung Mother EXAM BP 130/80 Pulse 87 Temp 98.6 ??F (37 ??C) Ht 1.803 m (5' 11 ) Wt 113.9 kg (251 lb 3.2 oz) SpO2 95% BMI 35.04 kg/m?? General appearance - WM wearing mask, no distress Eyes-ENEDINA a a, EOMI Neck- Supple and carotids have no bruits Chest - CTA Heart - normal rate, regular rhythm, normal S1, S2, no m/r/c/g neuro-patient is alert but mentally slow. Takes him quite a bit of time to answer normal questions.DTRs in current nerves 2 through 12 are intact and normal Ext-no pretibial or pedal edema Skin- mid scalp in front of the crown of her skull. He has 14 meera across about a 4-5 cm laceration that appears well healed. Marble removed Depression: PHQ-2:PHQ2 TOTAL SCORE: 0 PHQ-9: ASSESSMENT: ICD-10-CM 1. Postconcussion syndrome F07.81 2. Neck sprain, initial encounter S13.9XXA XR CERVICAL SPINE 2 OR 3VW 3. Laceration of scalp, initial encounter S01.01XA PLAN: Orders Placed This Encounter ??? XR CERVICAL SPINE 2 OR 3VW Standing Status: Future Standing Expiration Date: 07/18/2022 Order Specific Question: Release to patient Answer: Immediate ??? ondansetron, disintegrating, (ZOFRAN ODT) 4 MG tablet Sig: Take 1 (one) tablet by mouth every 6 hours as needed for Nausea/Vomiting Allow tablet to dissolve on the tongue Dispense: 20 tablet Refill: 2 ??? xqgdwfkncs-ebrlzwksxkowj-wgtpwumw (FIORICET) 50-300-40 MG capsule Sig: Take 1 (one) capsule by mouth every 4 hours as needed for Headache Dispense: 20 capsule Refill: 0 Goals ? ? Blood Pressure < 140/90 ??? Quit smoking / using tobacco Medications Discontinued During This Encounter Medication Reason ??? sildenafil (REVATIO) 20 MG tablet No Pharm No AVS Current Outpatient Medications Medication Sig Dispense Refill ??? albuterol HFA (PROVENTIL;VENTOLIN;PROAIR) 108 (90 Base) MCG/ACT inhaler Inhale 2 (two) puffs bymouth every 4 hours as needed for Shortness of Breath, Wheezing or Cough 8.5 g 2 ??? atbentfatm-jwvayianhjxhp-frtpupaf (FIORICET) 50-300-40 MG capsule Take 1 (one) capsule by mouthevery 4 hours as needed for Headache 20 capsule 0 ??? HYDROcodone-acetaminophen (NORCO) 5-325 MG tablet Take 1 (one) tablet by mouth every 4 hours asneeded for Pain Dx M50.30 120 tablet 0 ??? HYDROcodone-acetaminophen (NORCO) 7.5-325 MG tablet Take 1 (one) tablet by mouth every 4 hours as needed for Pain Dx M50.30 120 tablet 0 ??? HYDROcodone-acetaminophen (NORCO) 7.5-325 MG tablet Take 1 (one) tablet by mouth every 4 hours as needed for Pain Dx M50.30 120 tablet 0 ??? ondansetron, disintegrating, (ZOFRAN ODT) 4 MG tablet Take 1 (one) tablet by mouth every 6 hours as needed for Nausea/Vomiting Allow tablet to dissolve on the tongue 20 tablet 2 No current facility-administered medications for this visit. Postconcussion syndrome-place patient off work for 2 weeks. He is having trouble concentrating cannot read or react properly currently due to his concussion. Laceration scalp-removed 14 meera from scalp Neck pain-ordered neck x-rays patient probably sprained his neck or maybe even had a fracture I do not know how much a concrete aj weighs but it smacked him on the head pick enough to give a laceration Continue all previous treatment per orders Safe use and storage of controlled meds reviewed with pt again today SE of meds discussed with patient and best way to take medication. All questions answered. Return to office in 3 months. Patient instructed to call with any concerns or problems. UE KILN PLACER documented in this encounter Plan of Treatment Not on file documented as of this encounter Goals Goal Patient Goal Type Associated Problems Recent Progress Patient-Stated? Author Blood Pressure < 140/90 Blood Pressure 172/93(2022 8:59 AM CDT) No Zachary Moreno Quit smoking / using tobacco Lifestyle No Puja Raymunod documented as of this encounter Visit Diagnoses Diagnosis Postconcussion syndrome- Primary Neck sprain, initial encounter Laceration of scalp, initial encounter documented in this encounter Care Teams Edge Blacker Relationship Specialty Start Date End Date Alf Khan DO PCP - General Family Medicine 09/03/13 02/27/23 documented as of this encounter
--- OUTSIDE RECORDS SUMMARY | 2024-09-06 20:27 | XMS_ITS | Encounter Summary ---
Author Organization [facility] Address [address] [place] [address] Care Team Providers Care Unloading Checker Name Role Phone Alf Khan DO Primary Care Provider Stephan rosa Reason for Visit * Reason Comments Pain Managment pt follow up to ongo ing back pain and refills Results discuss lab results Medication Check pharmacy confirmed w ith pt Encounter Details Date Type Department Care Team (Latest Contact Info) Description 02/14/2021 3:15 PM CDT Office Visit [facility] - Family Medicine [address] [place] [address] Alf Khan DO Elevated PSA (Primary Dx); Degeneration of lumbar or lumbosacral intervertebral disc; Smoker; Pure hypertriglyceridemia; Vitamin D deficiency; Metabolic syndrome; Glucose intolerance; Mixed hyperlipidemia; Low testosterone Social History Tobacco Use Types Packs/Day Years Used Date Smoking Tobacco: Every Day Cigarettes 1.5 25 Started: 12/07/1985; Last attempted to quit: 12/07/2010 Smokeless Tobacco: Never Alcohol Use Standard Drinks/Week Comments Yes 0 (1 standard drink = 0.6 oz pur e alcohol) social Sex and Gender Information Value Date Recorded Sex Assigned at Male 08/31/2020 7:44 AM URBAN PLANNER Gender Identity Male 08/31/2020 7:44 AM URBAN PLANNER Sexual Orientation Straight 08/31/2020 7: 44 AM URBAN PLANNER documented as of this encounter Last Filed Vital Signs Vital Sign Reading Time Taken Comments Blood Pressure 142/90 02/14/2021 3:26 PM CDT Pulse 82 02/14/2021 3:26 PM CDT Temperature 36.6 ??C (97.9 ??F) 02/14/2021 3:26 PM C DT Respiratory Rate - - Oxygen Saturation 97% 02/14/2021 3:26 PM CDT Inhaled Oxygen Concentration - - Weight 118.8 kg (262 lb) 02/14/2021 3:26 PM CDT Height 180.3 cm (5' 11 ) 02/14/2021 3:26 PM CDT Body Mass Index 36.54 02/14/2021 3:26 PM CDT documented in this encounter Functional Status Functional [...] this encounter Progress Notes * Alf Khan, DO - 02/14/2021 3:29 PM CDT Office Visit, Established Patient, [id number] HISTORY: CC Trenton Crockett is a 55 year old male patient, here for: Chief Complaint Patient presents with ??? Pain Managment pt follow up to ongoing back pain and refills ??? Results discuss lab results ??? Medication Check pharmacy confirmed with pt HPI: Patient is here to follow-up on laboratory studies and refill pain medication has chronic low back pain he said the pain today is about a 4/10. He said the pain gets up to 7-8 /10 when he is working. When he takes pain medicine goes back down to 4-5/10 pretty is no side effects pain medication his back x-ray showed that he had some degenerative arthritis in his low back. We may have to do an MRI in the future Reviewed labs and PSA elevated, told him that he can get Urology consultation probable prostate biopsies a recheck this in 6 months he decided to take a conservative approach and recheck in 6 months His BP Is elevated we 1st admitted him it was good on recheck with laying down on the table when I came in the room he has some sort of elevated blood pressure not to the level of hypertension currently BP Readings from Last 3 Encounters: 02/14/21 142/90 11/22/20 138/84 01/06/21 146/92 weight is up 14 lb recommend weight loss Wt Readings from Last 3 Encounters: 02/14/21 118.8 kg (262 lb) 11/22/20 120.2 kg (265 lb) 08/31/20 119.3 kg (263 lb) he does not wish to take a statin says going to work on low-fat diet get back eating better lose weight and recheck cholesterol in 6 months when he does his PSA Recent Labs Component Name 01/09/21 1044 04/08/17 1055 04/05/14 1540 CHOL 190 165 172 TRIG 338* 177* 393* HDL 28* 47 34* VLDL 58* 35* 79* LDLCALC 104* 83 59 The 10-year ASCVD risk score (Carlos Eduardo BOYLE Jr., et al., 2013) is: 18.9% Values used to calculate the score: Age: 55 years Sex: Male Is Non- : No Diabetic: No Tobacco smoker: Yes Systolic Blood Pressure: 142 mmHg Is BP treated: No HDL Cholesterol: 28 mg/dL Total Cholesterol: 190 mg/dL Vit d low 20.7 take OTC vit d for 6-12 Smokes 1 ppd and he is not interested in quitting and Counseled the patient on smoking cessation, Chantix, wcht-qdz-xrrylpi nicotine replacement systems patches and gums. Told them the risks of smoking include lung cancer, bladder cancer, COPD, mi and stroke. They have to be involved in the smokingcessation program or it will not succeed. In other words I cannot make someone quit smoking they have to want to quit smoking. I can give you Chantix and advice on the ejmw-abd-kmbmums nicotine systems and I would suggest to [...] HFA (PROVENTIL;VENTOLIN;PROAIR) 108 (90 Base) MCG/ACT inhaler INHALE 2 PUFFS BY MOUTHEVERY 4 HOURS NEEDED FOR SHORTNESS OF BREATH, WHEEZING OR COUGH 8.5 Inhaler 3 ??? HYDROcodone-acetaminophen (NORCO) 5-325 MG tablet Take [...] tablet TAKE 3- 5 TABLETS prn sex 100 tablet 11 No facility-administered medications prior [...] ??? Cancer - Lung Mother EXAM BP 142/90 Pulse 82 Temp 97.9 ??F (36.6 ??C) Ht 1.803 m (5' 11 ) Wt 118.8 kg (262 lb) HcZ153% BMI 36.54 kg/m?? General appearance - WM wearing mask, no distress Neck- Supple and carotids have no bruits Chest - CTA Heart - normal rate, regular rhythm, normal S1, S2, no m/r/c/g Abd-soft, Nontender, no rebound tenderness, no mass, no organomegaly, no CVA tenderness Back -has about 50% ROM and pain noted with motion. SLR is neg Ext-no pretibial or pedal edema Skin- no visible rashes Depression: PHQ-2:PHQ2 TOTAL SCORE: 0 PHQ-9: ASSESSMENT: No diagnosis found. PLAN: No orders of the defined types were placed in this encounter. Goals ? ? Blood Pressure < 140/90 ??? Quit smoking / using tobacco There are no discontinued medications. Current Outpatient Medications Medication Sig Dispense Refill ??? albuterol HFA (PROVENTIL;VENTOLIN;PROAIR) 108 (90 Base) MCG/ACT inhaler INHALE 2 PUFFS BY MOUTHEVERY 4 HOURS NEEDED FOR SHORTNESS OF BREATH, WHEEZING OR COUGH 8.5 Inhaler 3 ??? HYDROcodone-acetaminophen (NORCO) 5-325 MG tablet Take [...] tablet TAKE 3- 5 TABLETS prn sex 100 tablet 11 No current facility-administered medications for this visit. Recommend he quit smoking of a PSA -order PSA recheck in 6 months if he has any increase in urinary symptoms or worsening problems we can always send urologist sooner Hyperlipidemia -order cholesterol recheck after a fall the low-fat diet and tries lose weight. Statin was recommended he does not wish to take this right now wishes to try and treat this because he has done this before get his weight down and cholesterol down into normal ranges Refilled pain medicine for 90 days norco 7.5 Mg for 90 days continue all other treatment as is Safe use and storage of controlled meds reviewed with pt again today SE of meds discussed with patient and best way to take medication. All questions answered. Return to office in 3 months. Patient instructed to call with any concerns or problems. documented in this encounter Plan of Treatment Scheduled Orders Name Type Priority Associated Diagnoses Orde r Schedule PSA FREE + TOTAL PANEL Lab Routine Elevated PSA Ordered: 02/14/2021 COMPREHENSIVE METABOLIC PANEL Lab Routine Mixed hyperlipidemia Ordered: 02/14/2021 LIPID PROFILE Lab Routine Mixed hyperlipidemia Ordered: 02/14/2021 documented as of this encounter Goals Goal Patient Goal Type Associated Problems Recent Progress Patient-Stated? Author Blood Pressure < 140/90 Blood Pressure 172/93(2022 8:59 AM CDT) Zachary Funez Quit smoking / using tobacco Lifestyle No Puja Raymundo documented as of this encounter Visit Diagnoses Diagnosis Elevated PSA- Primary Elevated prostate specific antigen (PSA) Degeneration of lumbar or lumbosacral intervertebral disc Smoker Tobacco use disorder Pure hypertriglyceridemia Pure hyperglyceridemia Vitamin D deficiency Metabolic syndrome Dysmetabolic Syndrome X Glucose intolerance Mixed hyperlipidemia Low testosterone Other testicular hypofunction documented in this encounter Care Teams Unloading Checker Relationship Specialty Start Date End Date Alf Khan DO PCP - General Family Medicine 09/03/13 02/27/23 documented as of this encounter
--- OUTSIDE RECORDS SUMMARY | 2024-09-06 20:27 | XMS_ITS | Encounter Summary ---
Author Organization [facility] Address [address] [place] [address] Care Team Providers Care Hazardous Materials Waste Technician Name Role Phone Alf Khan DO Primary Care Provider Stephan rosa Reason for Visit * Reason Onset Date Comments MEDICATION REFILL 05/17/2020 Encounter Details Date Type Department Care Team (Late st Contact Info) Description 05/17/2020 Refill [facility] - Family Medicine [address] [place] [address] Alf Khan, DO MEDICATION REFILL Social History Tobacco Use Types Packs/Day Years Used Date Smoking Tobacco: Every Day Cigarettes 1.5 25 Started: 12/07/1985; Last attempted to quit: 12/07/2010 Smokeless Tobacco: Never Alcohol Use Standard Drinks/Week Comments Yes 0 (1 standard drink = 0.6 oz pur e alcohol) social Sex and Gender Information Value Date Recorded Sex Assigned at Male 08/31/2020 7:44 AM AIRCRAFT STRUCTURE MECHANIC Gender Identity Male 08/31/2020 7:44 AM AIRCRAFT STRUCTURE MECHANIC Sexual Orientation Straight 08/31/2020 7: 44 AM AIRCRAFT STRUCTURE MECHANIC COVID-19 Exposure Response Date Recorded In the last month, have you been in contact with someone who was confirmed or suspected to have Coronavirus / COVID-19? No / Unsure 05/17/2020 11:35 AM CDT documented as of this encounter Functional Status Functional Status Response [...] No 04/15/2014 documented as of this encounter Miscellaneous Notes * Telephone Encounter - Alf Khan DO - 05/17/2020 3:30 PM CDT He no showed last video visit Apt needed * Telephone Encounter - Simon Reynolds - 05/17/2020 1:05 PM CDT Requested Prescriptions Pending Prescriptions Disp Refills ??? HYDROcodone-acetaminophen (NORCO) 5-325 MG tablet 120 tablet 0 Sig: Take 1 tablet by mouth every 4 hours as needed for Pain Dx M50.30 MARTÍNEZ 05/11/2020 NOV 06/01/2020 * Telephone Encounter - Lala Griffin - 05/17/2020 11:44 AM CDT Trenton Crockett is in need of His Requested Prescriptions Pending Prescriptions Disp Refills ??? HYDROcodone-acetaminophen (NORCO) 5-325 MG tablet 120 tablet 0 Sig: Take 1 tablet by mouth every 4 hours as needed for Pain Dx M50.30 Person calling for the refill: Marilee Last office visit 02/23/20 Next Appointment scheduled: 06/01/2020 Last Refill for this medication 04/16/20 Does patient have any new allergies since last office visit? No Was the pharmacy verified? Yes If this is a controlled substance was the Last 4 of SSN verified? YES (If unable to verify last 4 of SSN transfer to the clinic for further review) documented in this encounter Plan of Treatment Not on file documented as of this encounter Goals Goal Patient Goal Type Associated Problems Recent Progress Patient-Stated? Author Blood Pressure < 140/90 Blood Pressure 172/93(2022 8:59 AM CDT) No Zachary Moreno Quit smoking / using tobacco Lifestyle No Zackary, Diedrene R documented as of this encounter Visit Diagnoses Not on filedocumented in this encounter Care Teams Hazardous Materials Waste Technician Relationship Specialty Start Date End Date Alf Khan DO PCP - General Family Medicine 09/03/13 02/27/23 documented as of this encounter
--- OUTSIDE RECORDS SUMMARY | 2024-09-06 20:27 | XMS_ITS | Encounter Summary ---
Author Organization [facility] Address [address] [place] [address] Care Team Providers Care Ropeman Name Role Phone Alf Khan DO Primary Care Provider Stephan rosa Encounter Details Date Type Department Care Team (Latest Contact Info) Description 08/25/2020 Travel Social History Tobacco Use Types Packs/Day Years Used Date Smoking Tobacco: Every Day Cigarettes 1.5 25 Started: 12/07/1985; Last attempted to quit: 12/07/2010 Smokeless Tobacco: Never Alcohol Use Standard Drinks/Week Comments Yes 0 (1 standard drink = 0.6 oz pur e alcohol) social Sex and Gender Information Value Date Recorded Sex Assigned at Male 08/31/2020 7:44 AM [employer] Gender Identity Male 08/31/2020 7:44 AM [employer] H[employer]ORY TE[employer]ER Sexual Orientation Straight 08/31/2020 7: 44 AM 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 Author Blood Pressure < 140/90 Blood Pressure 172/93(2022 8:59 AM CDT) No Zachary Moreno Quit smoking / using tobacco Lifestyle No Puja Raymundo documented as of this encounter Visit Diagnoses Not on filedocumented in this encounter Care Teams Ropeman Relationship Specialty Start Date End Date Alf Khan DO PCP - General Family Medicine 09/03/13 02/27/23 documented as of this encounter
--- OUTSIDE RECORDS SUMMARY | 2024-09-06 20:27 | XMS_ITS | Encounter Summary ---
Author Organization [facility] Address [address] [place] [address] Care Team Providers Care Paper Steamer Name Role Phone Alf Khan DO Primary Care Provider Stephan rosa Reason for Visit * Reason Comments Follow-up Pt appt for 3 month f/up for pain meds MEDICATION REFILL Encounter Details Date Type Department Care Team (Late st Contact Info) Description 01/18/2022 4:00 PM CDT Office Visit [facility] - Family Medicine [address] [place] [address] Alf Khan DO HTN (hypertension), benign (Primary Dx); Chronic pain syndrome; Smoker Social History Tobacco Use Types Packs/Day Years Used Date Smoking Tobacco: Every Day Cigarettes 1.5 25 Started: 12/07/1985; Last attempted to quit: 12/07/2010 Smokeless Tobacco: Never Tobacco Cessation:Ready to Q uit: No Alcohol Use Standard Drinks/Week Comments Yes 0 (1 standard drink = 0.6 oz pur e alcohol) social PHQ-2 Answer Date Recorded PHQ2 TOTAL SCORE 0 01/18/2022 Sex and Gender Information Value Date Recorded Sex Assigned at Male 08/31/2020 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 Gender Identity Male 08/31/2020 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 Sexual Orientation Straight 08/31/2020 7: 44 AM CRITICAL CARE TECHNICIAN documented as of this encounter Last Filed Vital Signs Vital Sign Reading Time Taken Comments Blood Pressure 140/82 01/18/2022 4:12 PM CDT Pulse 97 01/18/2022 4:05 PM CDT Temperature 36.7 ??C (98 ??F) 01/18/2022 4:05 PM CDT Respiratory Rate - - Oxygen Saturation 99% 01/18/2022 4:05 PM CDT Inhaled Oxygen Concentration - - Weight 116.6 kg (257 lb) 01/18/2022 4:05 PM CDT Height 180.3 cm (5' 11 ) 01/18/2022 4:05 PM CDT Body Mass Index 35.84 01/18/2022 4:05 PM CDT documented in this encounter Functional [...] Progress Notes * Alf Khan, DO - 01/18/2022 4:06 PM CDT Office Visit, Established [place], [id number] HISTORY: CC Trenton Crockett is a 56 year old male patient, here for: Chief Complaint Patient presents with ??? Follow-up Pt appt for 3 month f/up for pain meds ??? MEDICATION REFILL HPI: Chronic pain- whole spine pain today. MRI C spine with disc Dx and never did Lumbar MR, back x-ray shows some disc disease. 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 He says the pain is controlled is a jlqk-dc-hcxnplld level with pain medication. If he does nottake them. He says the pain will get moderate severe severe. He has no side effects pain medicine BP-initial reading was high was good on recheck. From talking to patient appears he stopped his blood pressure medication. He is working on lifestyle changes alone. I told him this is going to go back up into hypertensive range is without medication at some point BP Readings from Last 3 Encounters: 01/18/22 140/82 10/26/21 136/82 07/27/21 134/84 Smokes 1 ppd and he is not interested in quitting and Counseled the patient on smoking cessation, Chantix, yspz-ecq-wetkbhm nicotine replacement systems patches and gums. Told them the risks of smoking include lung cancer, bladder cancer, COPD, mi and stroke. They have to be involved in the smokingcessation program or it will not succeed. In other words I cannot make someone quit smoking they have to want to quit smoking. I can give you Chantix and advice on the umfv-afd-mwkqsjq nicotine systems and I would suggest to [...] Medication Sig Dispense Refill ??? albuterol HFA (PROVENTIL; VENTOLIN; PROAIR) 108 (90 Base) MCG/ACT inhaler INHALE 2 PUFFS BY MOUTH EVERY 4 HOURS NEEDED FOR SHORTNESS OF BREATH, WHEEZING OR COUGH 18 g 1 ??? xewdgdgxno-pxwcepypnwuyh-rlalkvow (FIORICET) 50-300-40 MG capsule Take 1 (one) [...] on the tongue 20 tablet 2 No facility-administered medications prior to visit. PFSH, [...] ??? Cancer - Lung Mother EXAM BP 140/82 Pulse 97 Temp 98 ??F (36.7 ??C) Ht 1.803 m (5' 11 ) Wt 116.6 kg (257 lb) SpO2 99% BMI 35.84 kg/m?? General appearance - WM, wearing mask, no distress Neck- Supple and carotids have no bruits Chest - CTA Heart - normal rate, regular rhythm, normal S1, S2, no m/r/c/g Ext-no pretibial or pedal edema Skin-laceration on skull is healed completely Depression: PHQ-2:PHQ2 TOTAL SCORE: 0 PHQ-9: ASSESSMENT: No diagnosis found. PLAN: Orders Placed This Encounter ??? HYDROcodone-acetaminophen (NORCO) 5-325 MG tablet Sig: Take 1 (one) tablet by mouth every 4 hours as needed for Pain Dx M50.30 Dispense: 120 tablet Refill: 0 Postdated ??? HYDROcodone-acetaminophen (NORCO) 7.5-325 MG tablet Sig: Take 1 (one) tablet by mouth every 4 hours as needed for Pain Dx M50.30 Dispense: 120 tablet Refill: 0 Postdated ??? HYDROcodone-acetaminophen (NORCO) 7.5-325 MG tablet Sig: Take 1 (one) tablet by mouth every 4 hours as needed for Pain Dx M50.30 Dispense: 120 tablet Refill: 0 Goals ? ? Blood Pressure < 140/90 ??? Quit smoking / using tobacco Medications Discontinued During This Encounter Medication Reason ??? HYDROcodone-acetaminophen (NORCO) 5-325 MG tablet No Pharm No AVS ??? HYDROcodone-acetaminophen (NORCO) 7.5-325 MG tablet No Pharm No AVS ??? HYDROcodone-acetaminophen (NORCO) 7.5-325 MG tablet No Pharm No AVS Current Outpatient Medications Medication Sig Dispense Refill ??? albuterol HFA (PROVENTIL; VENTOLIN; PROAIR) 108 (90 Base) MCG/ACT inhaler INHALE 2 PUFFS BY MOUTH EVERY 4 HOURS NEEDED FOR SHORTNESS OF BREATH, WHEEZING OR COUGH 18 g 1 ??? pwvjeokzwo-coatfssutbkyp-chxbvzoo (FIORICET) 50-300-40 MG capsule Take 1 (one) capsule by mouthevery 4 hours as needed for Headache 20 capsule 0 ??? [START ON 03/12/2022] HYDROcodone-acetaminophen (NORCO) 5-325 MG tablet Take 1 (one) tablet by mouth every 4 hours as needed for Pain Dx M50.30 120 tablet 0 ??? [START ON 02/14/2022] HYDROcodone-acetaminophen (NORCO) 7.5-325 MG tablet Take 1 (one) tablet bymouth every 4 hours as needed for Pain [...] No current facility-administered medications for this visit. Essential hypertension-patient 1 off medication blood pressure is borderline on recheck systolic ishigh diastolic is normal will continue lifestyle changes and monitor we see him every 3 months for chronic pain issues Recommend he quit smoking Refilled pain medicine for 90 days norco 7.5 mg for 90 days Continue all other treatment per orders Safe use and storage [...] as of this encounter Visit Diagnoses Diagnosis HTN (hypertension), benign- Primary Essential hypertension, benign Chronic pain syndrome Smoker Tobacco use disorder documented in this encounter Care Teams Paper Steamer Relationship Specialty Start Date End Date Alf Khan DO PCP - General Family Medicine 09/03/13 02/27/23 documented as of this encounter
--- OUTSIDE RECORDS SUMMARY | 2024-09-06 20:27 | XMS_ITS | Patient Health Summary ---
Author Organization [facility] [employer] Address [address] [place] [address] Care Team Providers Care Strategies Analyst Name Role Phone Pcp, Manuel Pérez Primary Care Provider Unav ailable Note from [facility] [employer] [facility],non-owned Affiliates and Associated Physician Practices is amultiple site organization consisting of ambulatory clinics and hospital sitesin [place], [place], [place] and [place]. This disclosure is being madepursuant to the Care Everywhere program and may not contain all information available regarding this patient. Last updated 18.[facility] [employer] Allergies * Perry Inhibitors(Cough) -Low Criticality * Azithromycin(Itching) Medications * Be aware that medications may not be up to date on this document. Alwaysverify current medications with the patient. * HYDROcodone-acetaminophen (Pompey) 5-325 MG tablet(Started 02/03/2023) Take 1 (one) tablet by mouth every 4 hours as needed for Pain Dx M50.30 * HYDROcodone-acetaminophen (Pom[place]y) 7.5-325 MG tablet(Started 01/07/2023) Take 1 (one) tablet by mouth every 4 hours as needed for Pain Dx M50.30 * HYDROcodone-acetaminophen (P[place]y) 7.5-325 MG tablet(Started 12/12/2022) Take 1 (one) tablet by mouth every 4 hours as needed for Pain Dx M50.30 * losartan (Cozaar) 100 MG tablet(Started 12/12/2022) Take 1 (one) tablet by mouth once daily 1 refill by 12/12/2023 * albuterol HFA (Proventil; Ventolin; Proair) 108 (90 Base) MCG/ACT inhaler (Started 01/23/2023) TAKE 2 PUFFS BY MOUTH EVERY 4 HOURS NEEDED * ketorolac (Toradol) 10 MG tablet(Started 03/15/2023) Take 1 (one) tablet by mouth every 6 hours as needed for Pain Active Problems Problem Noted Date Diagnosed Date Intermittent asthma 11/19/2017 Perirectal abscess 09/05/2017 Pain medication agreement signed 06/24/2014 Degeneration of lumbar or lumbosacral interverte bral disc 06/24/2014 Degeneration of cervical intervertebral disc Metabolic syndrome 06/24/2014 Glucose intolerance (impaired glucose tolerance) 06/24/2014 Benign prostatic hyperplasia 06/10/2012 Need for influenza vaccination 05/23/2011 Hepatic steatosis 05/18/2011 HTN (hypertension), benign 06/16/2009 Hyperlipidemia 01/08/2009 Arthritis 01/08/2009 Resolved Problems Problem Noted Date Diagnosed Date Resolved Date Hypertension 01/08/2009 06/16/2009 Immunizations * INFLUENZA VACCINE, TRIV. 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 Gender Identity Male 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 Sexual Orientation Straight 08/31/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 Last Filed Vital Signs Vital Sign Reading Time Taken Comments Blood Pressure 172/93 03/15/2023 8:59 AM CDT Pulse 102 03/15/2023 9:22 AM CDT Temperature 36.7 ??C (98.1 ??F) 03/15/2023 8:59 AM CD T Respiratory Rate 20 03/15/2023 8:59 AM CDT Oxygen Saturation 97% 03/15/2023 9:22 AM CDT Inhaled Oxygen Concentration - - Weight 117.9 kg (260 lb) 03/15/2023 8:59 AM CDT Height 182 cm (5' 11.65 ) 03/15/2023 8:59 AM CDT Body Mass Index 35.6 03/15/2023 8:59 AM CDT Procedures * LAB RESULTS ORDER(Performed 09/19/2022) * SCAN ONLY HIS OPIOID MED AGREEMENT(Performed 06/27/2022) Performed for Chronic pain syndrome, Degeneration of lumbar or lumbosacral intervertebral disc * SCAN ONLY HIS OPIOID MED AGREEMENT(Performed 04/12/2022) * OPIATES URINE CONFIRMATION(Performed 01/09/2021) Performed for Pain medication agreement * DRUG SCREEN URINE PANEL 9(Performed 01/09/2021) Performed for Pain medication agreement * TESTOSTERONE TOTAL(Performed 01/09/2021) Performed for Decreased libido without sexual dysfunction * HEMOGLOBIN A1C(Performed 01/09/2021) Performed for Glucose intolerance * TSH(Performed 01/09/2021) Performed for Annual physical exam * URINALYSIS NO MICROSCOPIC NO CULTURE(Performed 01/09/2021) Performed for Annual physical exam * PROSTATE SPECIFIC ANTIGEN SCREEN(Performed 01/09/2021) Performed for Annual physical exam * VITAMIN D 25-HYDROXY(Performed 01/09/2021) Performed for Annual physical exam * LIPID PROFILE(Performed 01/09/2021) Performed for Annual physical exam * COMPREHENSIVE METABOLIC PANEL(Performed 01/09/2021) Performed for Annual physical exam * CBC W AUTO DIFFERENTIAL(Performed 01/09/2021) Performed for Annual physical exam * CYTOLOGY URINE(Performed 02/24/2018) Performed for Gross hematuria * BLADDER SCAN - POINT OF CARE (AMB)(Performed 02/24/2018) Performed for Gross hematuria * CT ABDOMEN PELVIS WO CONTRAST(Performed 02/22/2018) Performed for Painless hematuria * URINE MICROSCOPIC ONLY REFLEX TO CULTURE(Performed 02/22/2018) * URINALYSIS REFLEX MICROSCOPIC REFLEX CULTURE(Performed 02/22/2018) * CULTURE URINE(Performed 02/22/2018) * LIPASE BLOOD(Performed 02/22/2018) * COMPREHENSIVE METABOLIC PANEL(Performed 02/22/2018) * CBC W AUTO DIFFERENTIAL(Performed 02/22/2018) * ENDOTRACHEAL TUBE NOTE(Performed 09/05/2017) * INCISION AND DRAINAGE ABSCESS RECTAL/PERIRECTAL(Performed 09/05/2017) * MICROALB/CREAT RATIO URINE RANDOM PANEL(Performed 04/08/2017) Performed for Annual physical exam * TSH(Performed 04/08/2017) Performed for Annual physical exam * HEMOGLOBIN A1C(Performed 04/08/2017) Performed for Annual physical exam * LIPID PROFILE W TCHOL/HDL(Performed 04/08/2017) Performed for Annual physical exam * COMPREHENSIVE METABOLIC PANEL(Performed 04/08/2017) Performed for Annual physical exam * CBC W AUTO DIFFERENTIAL(Performed 04/08/2017) Performed for Annual physical exam * VITAMIN D 25-HYDROXY(Performed 04/08/2017) Performed for Annual physical exam * URINALYSIS MICROSCOPIC ONLY REFLEXED(Performed 04/08/2017) Performed for Annual physical exam * URINALYSIS REFLEX MICROSCOPIC REFLEX CULTURE(Performed 04/08/2017) Performed for Annual physical exam * URINALYSIS AUTO - POINT OF CARE(Performed 07/23/2016) Performed for Urinary frequency * XR LUMBAR SPINE 4VW OR MORE(Performed 08/17/2015) Performed for Bilateral low back pain without sciatica * XR CERVICAL SPINE 4 OR 5VW(Performed 01/28/2015) Performed for Left cervical radiculopathy, Neck pain * NM HEPATOBILIARY WO EF(Performed 04/16/2014) Performed for Abdominal pain, right upper quadrant, Nausea alone * COLONOSCOPY(Performed 04/15/2014) Performed for Abdominal pain * PATHOLOGY TISSUE EXAM (STL)(Performed 04/15/2014) * ENDOSCOPY, COLON, SCREENING(Performed 04/15/2014) * HEMOGLOBIN A1C(Performed 04/08/2014) Performed for Elevated glucose * US ABDOMEN LIMITED(Performed 04/08/2014) Performed for Abdominal pain, RUQ (right upper quadrant), Nausea alone * PROSTATE SPECIFIC ANTIGEN SCREEN(Performed 04/05/2014) Performed for Screening PSA (prostate specific antigen) * COMPREHENSIVE METABOLIC PANEL(Performed 04/05/2014) Performed for Hyperlipidemia, HTN (hypertension), benign * LIPID PROFILE W TCHOL/HDL(Performed 04/05/2014) Performed for Hyperlipidemia, HTN (hypertension), benign * HEPATIC FUNCTION PANEL(Performed 06/18/2013) Performed for Hepatic steatosis * URINALYSIS NO MICROSCOPIC NO CULTURE(Performed 04/10/2013) Performed for HTN (hypertension), benign * PROSTATE SPECIFIC ANTIGEN SCREEN(Performed 04/10/2013) Performed for BPH (benign prostatic hypertrophy) * LIPID PROFILE W TCHOL/HDL(Performed 04/10/2013) Performed for Hyperlipidemia * GENERAL HEALTH PANEL(Performed 04/10/2013) Performed for HTN (hypertension), benign * URINALYSIS NO MICROSCOPIC NO CULTURE(Performed 06/10/2012) Performed for HTN (hypertension), benign * PSA FREE + TOTAL PANEL(Performed 06/10/2012) Performed for BPH (benign prostatic hypertrophy) * LIPID PROFILE W TCHOL/HDL(Performed 06/10/2012) Performed for Hyperlipidemia * GENERAL HEALTH PANEL(Performed 06/10/2012) Performed for HTN (hypertension), benign, Hyperlipidemia * BASIC METABOLIC PANEL (CALCIUM TOTAL)(Performed 06/03/2012) Performed for Preop examination * EKG 12-LEAD(Performed 06/03/2012) Performed for Preop examination * US ABDOMEN LIMITED(Performed 05/17/2011) Performed for Elevated liver enzymes * OCCULT BLOOD FECES 1-3 SCREEN POINT OF CARE (AMB)(Performed 05/10/2011) Performed for Screening for unspecified condition * REF LAB-TEST AUTHORIZATION(Performed 05/09/2011) * HEPATITIS SCREEN ACUTE W/REFLX HBSAG(Performed 05/09/2011) * URINALYSIS NO MICROSCOPIC NO CULTURE(Performed 05/09/2011) Performed for HTN (hypertension), benign * VITAMIN D 25-HYDROXY(Performed 05/09/2011) Performed for Screening for unspecified condition * PSA FREE + TOTAL PANEL(Performed 05/09/2011) Performed for Screening for unspecified condition * TSH(Performed 05/09/2011) Performed for HTN (hypertension), benign, Hyperlipidemia * LIPID PROFILE W TCHOL/HDL(Performed 05/09/2011) Performed for Hyperlipidemia * CBC W AUTO DIFFERENTIAL(Performed 05/09/2011) Performed for Screening for unspecified condition * COMPREHENSIVE METABOLIC PANEL(Performed 05/09/2011) Performed for HTN (hypertension), benign, Hyperlipidemia * EKG 12-LEAD(Performed 05/09/2011) Performed for HTN (hypertension), benign * XR CHEST 2VW(Performed 12/22/2010) Performed for Bronchitis, Tobacco abuse * CARDIAC STRESS ECHO ORDER(Performed 04/06/2010) * IRON + TIBC PANEL(Performed 03/31/2010) * HEPATITIS SCREEN ACUTE W/REFLX HBSAG(Performed 03/31/2010) * LIPID PROFILE(Performed 03/31/2010) Performed for Hyperlipidemia * COMPREHENSIVE METABOLIC PANEL(Performed 03/31/2010) Performed for HTN (Hypertension), Benign, Hyperlipidemia * TSH(Performed 03/29/2010) Performed for HTN (Hypertension), Benign * CBC W AUTO DIFFERENTIAL(Performed 03/29/2010) Performed for Screening for Unspecified Condition * URINALYSIS NO MICROSCOPIC NO CULTURE(Performed 03/29/2010) Performed for HTN (Hypertension), Benign * EKG 12-LEAD(Performed 03/28/2010) Performed for HTN (Hypertension), Benign * MRI CERVICAL SPINE WO CONTRAST(Performed 04/05/2009) Performed for Radicular Pain in Left Arm * XR CERVICAL SPINE 4 OR 5VW(Performed 03/31/2009) Performed for Cervical Radiculopathy * XR CHEST 2VW(Performed 03/31/2009) Performed for Acute Bronchitis Results * LAB RESULTS ORDER (09/19/2022) 09/19/2022 Narrative 09/19/2022 Ordered by an unspecified provider. Scanned Document LAB - THERAPEUTIC DR WHELAN MONITORING ORDERABLES * SCAN ONLY HIS OPIOID MED AGREEMENT (06/27/2022) Only the most recent of2 resultswithin the time period is included. 06/27/2022 Narrative 06/27/2022 Ordered by an unspecified provider. Scanned Document SCANNING ONLY * DRUG SCREEN URINE PANEL 9 (01/09/2021 10:45 AM CDT) Amphetamines Screen Urine Negative Cutoff=1 000 ng/mL [facility] ACCOUNT BILL Comment:Amphetamine test inc ludes Amphetamine and Methamphetamine. Barbiturates Screen Urine Negative Cutoff=3 00 ng/mL [facility] ACCOUNT BILL Benzodiazepines Screen Urine Negative Cutoff=3 00 ng/mL [facility] ACCOUNT BILL Cannabinoids Screen Urine Negative Cutoff=5 0 ng/mL [facility] ACCOUNT BILL Cocaine Screen Urine Negative Cutoff=3 00 ng/mL [facility] ACCOUNT BILL Opiate Screen Urine See Final Results Cutoff=3 00 ng/mL [facility] ACCOUNT BILL Comment: Opiate test includes Codeine and Morphine only. FASTING Phencyclidine Screen Urine Negative Cutoff=2 5 ng/mL [facility] ACCOUNT BILL Methadone Screen Urine Negative Cutoff=3 00 ng/mL [facility] ACCOUNT BILL Propoxyphene Screen Urine Negative Cutoff=3 00 ng/mL [facility] ACCOUNT BILL Comment:FASTING Urine URINE / Unknown 01/09/2021 1 0:45 AM CDT 01/09/2021 Narrative Resulting Agency Comment Lab Testing performed at: [facility] [address] ??[facility] [phone] Alf Khan DO LAB - URINE CHEMISTR Y ORDERABLES Performing Organization Address [facility] de Phone Number [facility] ACCOUNT BILL [address] [place] [address] * OPIATES URINE CONFIRMATION (01/09/2021 10:45 AM CDT) Pathologist [facility] Opiates Negative [place]ft=023 [facility] ACCOUNT BILL Comment: Opiate test includes Codeine and Morphine only. FASTING 01/09/2021 10:4 5 AM CDT 01/09/2021 Narrative Resulting Agency Comment Lab Testing performed at: [facility] [address] ??[facility] [phone] Alf Khan DO LAB - URINE CHEMISTR Y ORDERABLES Performing Organization Address [facility] de Phone Number [facility] ACCOUNT BILL [address] [place] [address] * (ABNORMAL) URINALYSIS NO MICROSCOPIC NO CULTURE (01/09/2021 10:45 AM CDT) Only the most recent of5 resultswithin the time period is included. Specific [place] UA 1.029 1.005 - 1.030 [facility] ACCOUNT BILL pH UA 5.5 5.0 - 7.5 [facility] ACCOUNT BILL Color UA Yellow Yellow [facility] ACCOUNT BILL Appearance Cloudy(A) Clear [facility] ACCOUNT BILL Leukocyte UA Trace(A) Negative [facility] ACCOUNT BILL Protein UA 1+(A) Negative/Tra ce [facility] ACCOUNT BILL Glucose UA Negative Negative [facility] ACCOUNT BILL Ketone UA Trace(A) Negative [facility] ACCOUNT BILL Occult Blood Urine Negative Negative [facility] ACCOUNT BILL Bilirubin UA Negative Negative [facility] ACCOUNT BILL Urobilinogen 1.0 0.2 - 1.0 mg/dL [facility] ACCOUNT BILL Nitrite UA Negative Negative [facility] ACCOUNT BILL Comment:FASTING Urine URINE SPECIMEN OBTAINED BY CLEAN CATCH PROCEDURE / Unknown 01/09/2021 10:45 AM CDT 01/09/2021 Narrative Resulting Agency Comment Lab Testing performed at: [facility] [place] [address] [facility] [phone] Alf Khan DO LAB - URINALYSIS ORD ERABLES Performing Organization Address City/[facility]/ZIP Co de Phone Number [facility] ACCOUNT BILL [address] [place] [address] * (ABNORMAL) TESTOSTERONE TOTAL (01/09/2021 10:45 AM CDT) Testosterone 211(L) 264 - 916 ng/dL [facility] ACCOUNT BILL Comment: Adult male reference interval is based on a population of healthy nonobese males (BMI <30) between 19 and 39 years old. Catherine et.al. JCEM 2017,102;6787-8004. PMID: [id number]. ? Please note reference interval change FASTING Blood BLOOD SPECIMEN / Unknown 01/09/2021 10:45 AM CDT 01/09/2021 Narrative Resulting Agency Comment Lab Testing performed at: [facility] [address] [facility] [phone] Alf Khan DO LAB - CHEMISTRY ORDE RABLES [facility] ACCOUNT BILL [address] [place] [address] * (ABNORMAL) HEMOGLOBIN A1C (01/09/2021 10:45 AM CDT) Only the most recent of3 resultswithin the time period is included. Hemoglobin A1c 6.1(H) 4.8 - 5.6 % [facility] ACCOUNT BILL Comment: ? . ? Prediabetes: 5.7 - 6.4 ? Diabetes: >6.4 ? Glycemic control for adults with diabetes: <7.0 FASTING Blood BLOOD SPECIMEN / Unknown 01/09/2021 10:45 AM CDT 01/09/2021 Narrative Resulting Agency Comment Lab Testing performed at: [facility] [place] [address] [facility] [phone] Alf Khan DO LAB - CHEMISTRY ORDE Voices Performing Organization Address [facility] Co de Phone Number [facility] ACCOUNT BILL [address] [place] [address] * TSH (01/09/2021 10:45 AM CDT) Only the most recent of4 resultswithin the time period is included. TSH 1.590 0.450 - 4.500 uIU/mL [facility] ACCOUNT BILL Comment:FASTING Blood BLOOD SPECIMEN / Unknown 01/09/2021 10:45 AM CDT 01/09/2021 Narrative Resulting Agency Comment Lab Testing performed at: [facility] [address] [facility] [phone] Alf Susanne Bill DO LAB - CHEMISTRY ORDE Voices Performing Organization Address City/[facility] Co de Phone Number [facility] ACCOUNT BILL [address] [place] [address] * (ABNORMAL) VITAMIN D 25-HYDROXY (01/09/2021 10:44 AM CDT) Only the most recent of3 resultswithin the time period is included. Vitamin D, 25 Hydroxy 20.7(L) 30.0 - 100.0 ng/mL [facility] ACCOUNT BILL Comment: Vitamin D deficiency has been defined by the [place] of Medicine and an Endocrine Society practice guideline as a level of serum 25-OH vitamin D less than 20 ng/mL (1,2). The Endocrine Society went on to further define vitamin D insufficiency as a level between 21 and 29 ng/mL (2). 1. IOM ([place] of Medicine). 2010. Dietary reference ?? intakes for calcium and D. [place]: The ?? National AcademSalesfusion Press. 2. Lynda MF, Nikolai NC, Hernandez CHOPRA, et al. ?? Evaluation, treatment, and prevention of vitamin D ?? deficiency: an Endocrine Society clinical practice ?? guideline. JCEM. 2010; 96(7):1911-30. FASTING Blood BLOOD SPECIMEN / Unknown 01/09/2021 10:44 AM CDT 01/09/2021 Narrative Resulting Agency Comment Lab Testing performed at: [facility] [facility] [phone] Alf Khan DO LAB - CHEMISTRY LIZABETH WILEY [facility] ACCOUNT BILL [address] [place] [address] * (ABNORMAL) CBC WITH DIFFERENTIAL (01/09/2021 10:44 AM CDT) Only the most recent of5 resultswithin the time period is included. WBC 11.4(H) 3.4 - 10.8 x10E3/uL [facility] ACCOUNT BILL RBC 5.06 4.14 - 5.80 x10E6/uL [facility] ACCOUNT BILL Hemoglobin 16.1 13.0 - 17.7 g/dL [facility] ACCOUNT BILL Hematocrit 47.7 37.5 - 51.0 % [facility] ACCOUNT BILL MCV 94 79 - 97 fL [facility] ACCOUNT BILL MCH 31.8 26.6 - 33.0 pg [facility] ACCOUNT BILL MCHC 33.8 31.5 - 35.7 g/dL [facility] ACCOUNT BILL RDW 12.8 11.6 - 15.4 % [facility] ACCOUNT BILL Platelet Count 213 150 - 450 x10E3/uL [facility] ACCOUNT BILL Granulocytes % 71 Not Estab. % [facility] ACCOUNT BILL Lymphocytes % 21 Not Estab. % [facility]OUNT BILL Monocytes % 6 Not Estab. % [facility] ACCOUNT BILL Eosinophils % 2 Not Estab. % [facility] ACCOUNT BILL Basophils % 0 Not Estab. % [facility] ACCOUNT BILL Immature Cells NOT NEEDED [facility] ACCOUNT BILL Comment:Ancillary determined the test is not needed. Granulocytes Absolute 8.2(H) 1.4 - 7.0 x10E3/uL [facility] ACCOUNT BILL Lymphocytes Absolute 2.4 0.7 - 3.1 x10E3/uL [facility] ACCOUNT BILL Monocytes Absolute 0.7 0.1 - 0.9 x10E3/uL [facility] ACCOUNT BILL Eosinophils Absolute 0.2 0.0 - 0.4 x10E3/uL [facility] ACCOUNT BILL Basophils Absolute 0.0 0.0 - 0.2 x10E3/uL [facility] ACCOUNT BILL Immature Granulocytes 0 Not Estab. % [facility] ACCOUNT BILL Immature Granulocytes Absolute 0.0 0.0 - 0.1 x10E3/uL [facility] ACCOUNT BILL nRBC NOT NEEDED [facility] ACCOUNT BILL Comment:Ancillary determined the test is not needed. Comment Hematology NOT NEEDED [facility] ACCOUNT BILL Comment: FASTING Ancillary determined the test is not needed. Blood BLOOD SPECIMEN / Unknown 01/09/2021 10:44 AM CDT 01/09/2021 Narrative Resulting Agency Comment Lab Testing performed at: [address] [facility] [phone] Alf Khan DO LAB - HEMATOLOGY ORD ERABLES [facility] ACCOUNT BILL [address] [place] [address] * (ABNORMAL) COMPREHENSIVE METABOLIC PANEL (01/09/2021 10:44 AM CDT) Only the most recent of6 resultswithin the time period is included. Glucose 144(H) 65 - 99 mg/dL [facility] ACCOUNT BILL BUN 14 6 - 24 mg/dL [facility] ACCOUNT BILL Creatinine 0.70(L) 0.76 - 1.27 mg/dL [facility] ACCOUNT BILL eGFR by MDRD 106 >59 mL/min/1.7 3 [facility] ACCOUNT BILL eGFR by MDRD 123 >59 mL/min/1.7 3 [facility] ACCOUNT BILL Comment: [facility] currently reports eGFR in compliance with the current ??recommendations of the National Kidney Foundation. [facility] will ??update reporting as new guidelines are published from the NKF-ASN ??Task force. BUN/Creatinine Ratio 20 9 - 20 [facility] ACCOUNT BILL Sodium 142 134 - 144 mmol/L [facility] ACCOUNT BILL Potassium 4.3 3.5 - 5.2 mmol/L [facility] ACCOUNT BILL Chloride 103 96 - 106 mmol/L [facility] ACCOUNT BILL CO2 24 20 - 29 mmol/L [facility] ACCOUNT BILL Calcium 8.6(L) 8.7 - 10.2 mg/dL [facility] ACCOUNT BILL Protein Total 6.3 6.0 - 8.5 g/dL [facility] ACCOUNT BILL Albumin 3.8 3.8 - 4.9 g/dL [facility] ACCOUNT BILL Globulin Total 2.5 1.5 - 4.5 g/dL [facility] ACCOUNT BILL Albumin/Globulin Ratio 1.5 1.2 - 2.2 [facility] ACCOUNT BILL Bilirubin Total 0.5 0.0 - 1.2 mg/dL [facility] ACCOUNT BILL Alkaline Phosphatase 79 48 - 121 IU/L [facility] ACCOUNT BILL Comment:Please note refere nce interval change AST 24 0 - 40 IU/L [facility] ACCOUNT BILL ALT 18 0 - 44 IU/L [facility] ACCOUNT BILL Comment:FASTING Blood BLOOD SPECIMEN / Unknown 01/09/2021 10:44 AM CDT 01/09/2021 Narrative Resulting Agency Comment [facility] [address] [facility] [phone] Alf Khan DO LAB - CHEMISTRY LIZABETH WILEY [facility] ACCOUNT BILL [address] [place] [address] * (ABNORMAL) PROSTATE SPECIFIC ANTIGEN SCREEN (01/09/2021 10:44 AM CDT) Only the most recent of3 resultswithin the time period is included. PSA 4.5(H) 0.0 - 4.0 ng/mL [facility] ACCOUNT BILL Comment: Brenda ECLIA methodology. ? . According to the [place] [employer], Serum PSA should decrease and remain at undetectable levels after radical prostatectomy. The AUA defines biochemical recurrence as an initial PSA value 0.2 ng/mL or greater followed by a subsequent confirmatory PSA value 0.2 ng/mL or greater. Values obtained with different assay methods or kits cannot be used interchangeably. Results cannot be interpreted as absolute evidence of the presence or absence of malignant disease. FASTING Blood BLOOD SPECIMEN / Unknown 01/09/2021 10:44 AM CDT 01/09/2021 Narrative Resulting Agency Comment Lab Testing performed at: [facility] [facility] [phone] Alf Khan DO LAB - CHEMISTRY LIZABETH [facility] ACCOUNT BILL [address] [place] [address] * (ABNORMAL) LIPID PROFILE (01/09/2021 10:44 AM CDT) Only the most recent of2 resultswithin the time period is included. Cholesterol 190 100 - 199 mg/dL [facility] ACCOUNT BILL Triglycerides 338(H) 0 - 149 mg/dL [facility] ACCOUNT BILL HDL Cholesterol 28(L) >39 mg/dL [facility] ACCOUNT BILL VLDL Calculated 58(H) 5 - 40 mg/dL [facility] ACCOUNT BILL LDL Calculated 104(H) 0 - 99 mg/dL [facility] ACCOUNT BILL Comment NOT NEEDED [facility] ACCOUNT BILL Comment: FASTING Ancillary determined the test is not needed. Blood BLOOD SPECIMEN / Unknown 01/09/2021 10:44 AM CDT 01/09/2021 Narrative Resulting Agency Comment [facility]: [facility] [address] [facility] [phone] Alf Khan DO LAB - CHEMISTRY ORDEcho WILEY [facility] ACCOUNT [place] [address] * CYTOLOGY URINE (02/24/2018 2:57 PM CDT) Pathology/Cytolog y URINE SPECIMEN FROM URINARY BLADDER / Unknown 02/24/2018 2:57 PM CDT Narrative OTHER LAB - 02/24/2018 2:57 PM CDT Insufficient for diagnosis, no/rare urothelial cells Jonathan Muñoz MD LAB - PATHOLOGY/CY TOLOGY ORDERABLES OTHER LAB * BLADDER SCAN - POINT OF CARE (AMB) (02/24/2018) mL 24cc Urine URINE / Unknown 02/24/2018 Jonathan Muñoz MD LAB - POINT OF CAR E ORDERABLES * CT ABDOMEN AND PELVIS NON IV CONTRAST (02/22/2018 8:06 PM CDT) Anatomical Region Laterality Modality Abdomen, Pelvis Computed Tomogra phy 02/22/2018 8:10 PM CDT Impressions 02/22/2018 8:12 PM CDT No obstruction or definite urinary stone seen at this time. Urologic consultation is recommended if the hematuria persists. Reading Radiologist: Patric Duval MD on 02/22/2018 at 8:12 PM Narrative 02/22/2018 8:12 PM CDT Examination: Noncontrast Abdomen and Pelvic CT H.I.S. Information: ??Hematuria, unspecified ?Clinical information: Hematuria. ??History of kidney stones in the past.. Technique: Noncontrast CT images of the abdomen and pelvis were performed. ??The stone protocol ??without IV contrast and without oral contrast was requested for this examination. ??This report was transcribed with a computerized speech recognition system. ??In an effort to expedite patient care, it has not been adjusted for typographical, grammatical or syntax problems by a trained medical pathology teacher. For questions about the report, please contact the Radiology Department. Findings: CT Abdomen: ??No calcified stones can be seen in the right or left kidneys. ??No obstruction can be seen. ??The liver, spleen and pancreas have a homogeneous CT density but cannot be fully evaluated on this limited protocol exam. ??No dilated bowel loops can be seen. ??There is no free fluid in the abdomen. ??Several subcentimeter low CT density nodules are scattered throughout the liver. ??These liver densities are too small for complete evaluation. ??Small mesh collection is suspected deep to the umbilicus. CT Pelvis: ??No calcified stones can be seen in the course of the distal ureters. ??No pelvic mass is present. ??The bladder is collapsed and therefore cannot be evaluated further. ??Scattered diverticula are visible in the distal colon. Procedure Note Patric Duval MD - 02/22/2018 Examination: Noncontrast Abdomen and Pelvic CT H.I.S. Information: Hematuria, unspecified Clinical information: Hematuria. History of kidney stones in the past.. Technique: Noncontrast CT images of the abdomen and pelvis were performed. The stone protocol without IV contrast and without oral contrast was requested for this examination. This report was transcribed with a computerized speech recognition system. In an effort to expedite patient care, it has not been adjusted for typographical, grammatical or syntax problems by a trained medical pathology teacher. For questions about the report, please contact the Radiology Department. Findings: CT Abdomen: No calcified stones can be seen in the right or left kidneys. No obstruction can be seen. The liver, spleen and pancreas have a homogeneous CT density but cannot be fully evaluated on this limited protocol exam. No dilated bowel loops can be seen. There is no free fluid in the abdomen. Several subcentimeter low CT density nodules are scattered throughout the liver. These liver densities are too small for complete evaluation. Small mesh collection is suspected deep to the umbilicus. CT Pelvis: No calcified stones can be seen in the course of the distal ureters. No pelvic mass is present. The bladder is collapsed and therefore cannot be evaluated further. Scattered diverticula are visible in the distal colon. IMPRESSION No obstruction or definite urinary stone seen at this time. Urologic consultation is recommended if the hematuria persists. Reading Radiologist: Patric Duval MD on 02/22/2018 at 8:12 PM Junior Gutierrez MD CT ORDERABLES * (ABNORMAL) URINE MICROSCOPIC ONLY REFLEX TO CULTURE (02/22/2018 6:37 PM CDT) Reflex Status Culture to follow 02/22/2018 6:47 PM CDT [facility] RBC UA >100(A) 0-5, None Seen # /hpf 02/22/2018 6:47 PM CDT [facility] WBC UA 0-5 0-5, None Seen # /hpf 02/22/2018 6:47 PM CDT [facility] Bacteria UA None Seen None Seen 02/22/2018 6:47 PM CDT [facility] Squamous Epithelial Cells None Seen None Seen, 0-2, 3-5 /hpf 02/22/2018 6:47 PM CDT [facility] Mucus UA 4+ /LPF 02/22/2018 6:47 PM CDT [facility] Calcium Oxalate Crystals Few(A) None seen /HPF 02/22/2018 6:47 PM CDT [facility] Urine URINE SPECIMEN OBTAINED BY CLEAN CATCH PROCEDURE / Unknown Collection / Unknown 02/22/2018 6:37 PM CDT 02/22/2018 6:36 PM CDT Narrative [facility] - 02/22/2018 6:47 PM CDT Junior Gutierrez MD LAB - URINALYSIS ORD ERABLES [facility] [address] [place] [address] * (ABNORMAL) URINALYSIS REFLEX MICROSCOPIC REFLEX CULTURE (02/22/2018 6:37 PM CDT) Only the most recent of2 resultswithin the time period is included. Color UA Grossly Bloody(A) Straw, Yellow 02/22/2018 6:47 PM CDT [facility] Clarity UA Turbid(A) Clear 02/22/2018 6:47 PM CDT [facility] Glucose UA 1+(A) Negative 02/22/2018 6:47 PM CDT [facility] Bilirubin UA Negative Negative 02/22/2018 6:47 PM CDT [facility] Ketone UA Trace(A) Negative 02/22/2018 6:47 PM CDT [facility] Specific [place] UA 1.040(H) 1.005 - 1.030 02/22/2018 6:47 PM CDT [facility] Blood UA 3+(A) Negative 02/22/2018 6:47 PM CDT [facility] pH UA 5.0 5.0 - 8.0 pH 02/22/2018 6:47 PM CDT [facility] Protein UA 2+(A) Negative 02/22/2018 6:47 PM CDT [facility] Urobilinogen UA Negative Negative mg/dL 02/22/2018 6:47 PM CDT [facility] Nitrite UA Positive(A) Negative 02/22/2018 6:47 PM CDT [facility] Leukocyte UA Trace(A) Negative 02/22/2018 6:47 PM CDT [facility] Urine Microscopy Urine microscopy to follow 02/22/2018 6:47 PM CDT [facility] Reflex Status Culture to follow 02/22/2018 6:47 PM CDT [facility] Urine URINE SPECIMEN OBTAINED BY CLEAN CATCH PROCEDURE / Unknown Collection / Unknown 02/22/2018 6:37 PM CDT 02/22/2018 6:36 PM CDT Narrative [facility] - 02/22/2018 6:47 PM CDT Ascorbic Acid can cause false negative urine strip tests for blood, glucose, nitrite, and bilirubin. Junior Gutierrez MD LAB - URINALYSIS ORD ERABLES Performing Organization Address [facility] Co de Phone Number [facility] [address] [place] [address] * CULTURE URINE (02/22/2018 6:37 PM CDT) Pathologist [facility] Culture Urine 10,000-50,000 CFU/mL urogenital jayleen CARLOS 02/23/2018 11:00 AM CDT [facility] Urine URINE SPECIMEN OBTAINED BY CLEAN CATCH PROCEDURE / Unknown Collection / Unknown 02/22/2018 6:37 PM CDT 02/22/2018 6:36 PM CDT Junior Gutierrez MD LAB - MICROBIOLOGY O RDERABLES [facility] [address] [place] [address], [facility] [phone] * LIPASE BLOOD (02/22/2018 6:36 PM CDT) Lipase 133 73 - 393 U/L 02/22/2018 7:16 PM CDT [facility] Blood BLOOD SPECIMEN / Unknown Venipuncture / Unknown 02/22/2018 6:36 PM CDT 02/22/2018 7:01 PM CDT Junior Gutierrez MD LAB - CHEMISTRY LIZABETH WILEY [facility] [address] [place] [address] * (ABNORMAL) LIPID PROFILE W TCHOL/HDL (04/08/2017 10:55 AM CDT) Only the most recent of5 resultswithin the time period is included. Cholesterol 165 <200 mg/dL [facility] ACCOUNT BILL Triglycerides 177(H) <150 mg/dL [facility] ACCOUNT BILL HDL Cholesterol 47 >40 mg/dL [facility] ACCOUNT BILL VLDL Calculated 35(H) <=30 mg/dL [facility] ACCOUNT BILL LDL Calculated 83 <130 mg/dL [facility] ACCOUNT BILL Comment:LDL/HDL RATIO BLOOD ([facility]) 1.8 <5.0 Cholesterol/HDL Ratio 3.5 <4.5 [facility] ACCOUNT BILL Blood BLOOD SPECIMEN / Unknown 04/08/2017 10:55 AM CDT 04/08/2017 Narrative Resulting Agency Comment [facility] [address] [address] [facility] ??[place] [phone] Alf Khan DO LAB - CHEMISTRY LIZABETH WILEY [facility] ACCOUNT BILL [address] [place] [address] * MICROALB/CREAT RATIO URINE RANDOM PANEL (04/08/2017 10:55 AM CDT) Creatinine Urine 150 mg/dL [facility] ACCOUNT BILL Microalbumin Urine 1.6 mg/dL [facility] ACCOUNT BILL Microalbumin/Crea tinine Ratio 11 <30 mg/g [facility] ACCOUNT BILL Urine URINE SPECIMEN OBTAINED BY CLEAN CATCH PROCEDURE / Unknown 04/08/2017 10:55 AM CDT 04/08/2017 Narrative Resulting Agency Comment [facility] [address] ??[facility] [phone] Alf Khan DO LAB - URINE CHEMISTR Y ORDERABLES Performing Organization Address City/[facility] Co de Phone Number [facility] ACCOUNT BILL [address] [place] [address] * (ABNORMAL) URINALYSIS MICROSCOPIC ONLY REFLEXED (04/08/2017 10:52 AM CDT) WBC UA 0-5 0 - 5 /hpf [facility] ACCOUNT BILL RBC UA 0-2 0 - 2 /hpf [facility] ACCOUNT BILL Epithelial Cells (non renal) None seen 0 - 10 /hpf [facility] ACCOUNT BILL Epithelial Cells (renal) NOT NEEDED [facility] ACCOUNT BILL Comment:Ancillary determined the test is not needed Casts ua NOT NEEDED [facility] ACCOUNT BILL Comment:Ancillary determined the test is not needed Casts UA NOT NEEDED [facility] ACCOUNT BILL Comment:Ancillary determined the test is not needed Crystals UA Present(A) N/A [facility] ACCOUNT BILL Crystals UA Calcium Oxalate N/A [facility] ACCOUNT BILL Mucus UA Present Not Estab. [facility] ACCOUNT BILL Bacteria UA None seen None seen/Few [facility] ACCOUNT BILL Yeast UA NOT NEEDED [facility] ACCOUNT BILL Comment:Ancillary determined the test is not needed Trichomonas UA NOT NEEDED [facility] ACCOUNT BILL Comment:Ancillary determined the test is not needed Comment Urine NOT NEEDED [facility] ACCOUNT BILL Comment:Ancillary determined the test is not needed 04/08/2017 10:5 2 AM CDT 04/08/2017 Narrative Resulting Agency Comment [facility] [address] [facility] [phone] Alf hKan DO LAB - URINALYSIS ORD ERABLES Performing Organization Address City/[facility] Co de Phone Number [facility] ACCOUNT BILL [address] [place] [address] * URINALYSIS AUTO - POINT OF CARE (07/23/2016 5:00 PM PICKLING 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) Clarity UA POCT clear Color UA POCT yellow Leukocyte UA neg Negative Nitrite UA POCT neg Negative Urobilinogen UA 0.2 0.1 - 1.0 Protein UA POCT neg Negative pH UA 5.0 5.0 - 8.0 pH units Blood UA small Negtive Specific [place] UA POCT 1.025 1.002 - 1.030 Ketone UA neg Negative Bilirubin UA POCT neg Negative Glucose UA neg Negative Urine URINE / Unknown 07/23/2016 5 :00 PM PICKLING 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 Alf Khan DO LAB - POINT OF CARE ORDERABLES * XR LUMBAR SPINE 4+ VW (08/17/2015 4:05 PM PICKLING 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) Anatomical Region Laterality Modality Spine Radiographic Nataliya ging 08/17/2015 4:11 PM PICKLING 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 Impressions 08/17/2015 4:12 PM PICKLING 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 No acute osseous abnormality Degenerative changes Narrative 08/17/2015 4:12 PM PICKLING 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 Lumbar spine 5 views Indication: Low back pain, lumbar spine pain, lumbar radiculopathy with right leg pain. Findings: 5 views of the lumbar spine show mild endplate degenerative changes at L5. There is no evidence of acute fracture, subluxation or dislocation. If symptoms persist, followup examination with MRI would be recommended. Procedure Note Alpesh Turner MD - 08/17/2015 Lumbar spine 5 views Indication: Low back pain, lumbar spine pain, lumbar radiculopathy with right leg pain. Findings: 5 views of the lumbar spine show mild endplate degenerative changes at L5. There is no evidence of acute fracture, subluxation or dislocation. If symptoms persist, followup examination with MRI would be recommended. IMPRESSION No acute osseous abnormality Degenerative changes Alf Khan DO DIAGNOSTIC IMAGING O RDERABLES * XR CERVICAL SPINE MIN 4+ VW (01/28/2015 9:22 AM CDT) Only the most recent of2 resultswithin the time period is included. Anatomical Region Laterality Modality Spine Radiographic Nataliya ging 01/28/2015 9:52 AM CDT Impressions 01/28/2015 10:37 AM CDT No acute findings or significant change. Narrative 01/28/2015 10:37 AM CDT Examination: Cervical spine radiographs, 6 views. History: Neck pain. Left-sided pain with left arm numbness and tingling. Comparison: March 27, 2002 Findings: Straightening cervical curvature without acute malalignment. No prevertebral soft tissue swelling. Vertebral body heights and disc spaces maintained. Open-mouth view shows normal C1-2 alignment. The dens is intact. No significant bony encroachment seen on the neural foramen on oblique views. Procedure Note Ollie Parks MD - 01/28/2015 Examination: Cervical spine radiographs, 6 views. History: Neck pain. Left-sided pain with left arm numbness and tingling. Comparison: March 27, 2002 Findings: Straightening cervical curvature without acute malalignment. No prevertebral soft tissue swelling. Vertebral body heights and disc spaces maintained. Open-mouth view shows normal C1-2 alignment. The dens is intact. No significant bony encroachment seen on the neural foramen on oblique views. IMPRESSION No acute findings or significant change. Alf Khan DO DIAGNOSTIC IMAGING O RDERABLES * NM HEPATOBILIARY FUNCTION SCAN (04/16/2014 9:16 AM CDT) Anatomical Region Laterality Modality Abdomen Nuclear Medicine 04/16/2014 9:26 AM CDT Impressions 04/16/2014 10:22 AM CDT Unremarkable hepatobiliary scan and gallbladder ejection fraction. Edited by Flor Spring on 04/16/2014 9:34 AM Narrative 04/16/2014 10:22 AM CDT NUCLEAR MEDICINE HEPATOBILIARY SCAN INDICATION: Abdominal pain. The patient was administered 5.5 mCi technetium-99m mebrofenin and dynamic images were obtained. Gallbladder is visualized x 15 minutes and continues to fill. A region of interest was drawn around the gallbladder, and the patient is administered 8 ounces of Ensure Plus to simulate a fatty meal. The gallbladder ejection fraction is calculated at 94%. Greater than equal to 35% is normal. Procedure Note Griselda Zamora MD - 04/16/2014 NUCLEAR MEDICINE HEPATOBILIARY SCAN INDICATION: Abdominal pain. The patient was administered 5.5 mCi technetium-99m mebrofenin and dynamic images were obtained. Gallbladder is visualized x 15 minutes and continues to fill. A region of interest was drawn around the gallbladder, and the patient is administered 8 ounces of Ensure Plus to simulate a fatty meal. The gallbladder ejection fraction is calculated at 94%. Greater than equal to 35% is normal. IMPRESSION Unremarkable hepatobiliary scan and gallbladder ejection fraction. Edited by Flor Spring on 04/16/2014 9:34 AM Alf Khan DO NM ORDERABLES * GROSS + MICRO EXAM (STL) (04/15/2014 8:49 AM CDT) Case Report Surgical Pathology Report ? Case: [id number] ? Authorizing Provider: ??Astrid Rios, ?Collected: ? 04/15/2014 08:49 AM ? Ordering Location: ? [facility] ?Received: ?04/15/2014 09:16 AM ? Pathologist: ? Julian Boucher MD ? Specimen: ?Polyp Sigmoid, snare ? 04/16/2014 3:43 PM CDT [facility] Final Diagnosis 1. Sigmoid colon polyp: -- Tubular adenoma JW/na 04/16/2014 3:43 PM CDT [facility] Gross Description Received in formalin in a container labeled, Lennie Crockett., polyp sigmoid. The container holds a 0.7 x 0.5 x 0.5 cm pink-adair tissue fragment. The margin of resection is inked blue. The specimen is sectioned and entirely submitted in a cassette labeled A1. DYShirley/inna 04/16/2014 3:43 PM CDT [facility] Microscopic Description Section labeled, sigmoid colon polyp, show fragments of colonic mucosa displaying characteristics of ??tubular adenoma. No invasive malignancy is seen. REGAN/inna 04/16/2014 3:43 PM CDT [facility] Pathology/Cytolo gy POLYP OF SIGMOID COLON / Unknown 04/15/2014 8:49 AM CDT 04/15/2014 9:16 AM CDT Comment:799.9 Astrid Rios DO LAB - PATHOLOGY/CYTO LOGY ORDERABLES [facility] [address] [place] [address] * ENDOSCOPY, COLON, SCREENING (04/15/2014 8:24 AM CDT) Report Endoscopy POC _ Patient Name: Lennie Crockett ? Procedure Date: 04/15/2014 8:24 AM ? Date of : 1965 ? Admit Type: Outpatient Age: 48 ? Gender: Male Attending MD: Astrid Rios, ?? _ Procedure: ? Colonoscopy Indications: ? Abdominal pain in the right lower quadrant Providers: ? Astrid Rios DO (Doctor) Referring MD: ?Alf Khan DO (Referring MD) Medicines: ? Sedation Required Anesthesia Staff Assistance Complications: ? No immediate complications. _ Procedure: ? Pre-Anesthesia Assessment: ? - ASA Grade Assessment: II - A patient with mild systemic ? disease. ? After I obtained informed consent, the scope was passed ? under direct vision. Throughout the procedure, the ? patient's blood pressure, pulse, and oxygen saturations ? were monitored continuously. The scope was introduced ? through the anus and advanced to the cecum, identified by ? appendiceal orifice and ileocecal valve. The colonoscopy ? was performed without difficulty. The patient tolerated ? the procedure well. The quality of the bowel preparation ? was good. ? Findings: ? A sessile polyp was found in the sigmoid colon. The polyp was small in ? size. The polyp was removed with a hot snare. Resection and retrieval ? were complete. ? A few small-mouthed diverticula were found in the entire colon. ? Internal hemorrhoids were found during retroflexion and were mild. _ ? Impression: ?- One small polyp in the sigmoid colon. Resected and ? retrieved. ? - Diverticulosis in the entire examined colon. ? - Internal hemorrhoids. Recommendation: ?- Await pathology results. ? - Repeat colonoscopy in 3 years for surveillance. ? Procedure Code(s): ? --- Professional --- ? 11335, Colonoscopy, flexible, proximal to splenic flexure; with removal ? of tumor(s), polyp(s), or other lesion(s) by snare technique ? --- Technical --- ? 88477, Colonoscopy, flexible, proximal to splenic flexure; with removal ? of tumor(s), polyp(s), or other lesion(s) by snare technique Diagnosis Code(s): ? --- Professional --- ? 211.3, Benign neoplasm of colon ? 455.0, Internal hemorrhoids without mention of complication ? 789.03, Abdominal pain, right lower quadrant ? 562.10, Diverticulosis of colon (without mention of hemorrhage) ? --- Technical --- ? 211.3, Benign neoplasm of colon ? 455.0, Internal hemorrhoids without mention of complication ? 789.03, Abdominal pain, right lower quadrant ? 562.10, Diverticulosis of colon (without mention of hemorrhage) CPT copyright 2013 [employer]. All rights reserved. The codes documented in this report are preliminary and upon salvage mend worker review may be revised to meet current compliance requirements. ___ Astrid Rios DO 04/15/2014 8:51 AM This report has been signed electronically. Number of Addenda: 0 Note Initiated On: 04/15/2014 8:24 AM [facility] 04/15/2014 8:24 AM CDT Astrid Umanaalexslime GI PROCEDURE ORDERAB LES [facility] TRACEY Méndez [id number] * US ABDOMEN LIMITED (04/08/2014 8:56 AM CDT) Only the most recent of2 resultswithin the time period is included. Anatomical Region Laterality Modality Abdomen Ultrasound 04/08/2014 9:14 AM CDT Impressions 04/08/2014 10:05 AM CDT DIFFUSE FATTY INFILTRATION OF THE LIVER IS PRESENT. RIGHT UPPER QUADRANT ULTRASOUND IS OTHERWISE UNREMARKABLE. Edited by Marie Elder on 04/08/2014 9:28 AM Narrative 04/08/2014 10:05 AM CDT ULTRASOUND LIVER INDICATION: Elevated liver function tests. Grayscale images of the right upper quadrant were performed. There is no evidence of cholelithiasis. The liver is echogenic and attenuating in echotexture, consistent with diffuse fatty infiltration. Appearance is similar to previous examination of May 17, 2011. Doppler imaging of the portal and hepatic veins demonstrates patency of portal and hepatic veins. Common bile duct measures 0.43 cm. Visualized portions of the pancreas are unremarkable. The right kidney is of normal size, echogenicity and renal cortical thickness and measures 12.16 cm x 5.2 cm x 4.6 cm. Procedure Note Lilliam Morris MD - 04/08/2014 ULTRASOUND LIVER INDICATION: Elevated liver function tests. Grayscale images of the right upper quadrant were performed. There is no evidence of cholelithiasis. The liver is echogenic and attenuating in echotexture, consistent with diffuse fatty infiltration. Appearance is similar to previous examination of May 17, 2011. Doppler imaging of the portal and hepatic veins demonstrates patency of portal and hepatic veins. Common bile duct measures 0.43 cm. Visualized portions of the pancreas are unremarkable. The right kidney is of normal size, echogenicity and renal cortical thickness and measures 12.16 cm x 5.2 cm x 4.6 cm. IMPRESSION DIFFUSE FATTY INFILTRATION OF THE LIVER IS PRESENT. RIGHT UPPER QUADRANT ULTRASOUND IS OTHERWISE UNREMARKABLE. Edited by Marie Elder on 04/08/2014 9:28 AM Alf Khan DO US ORDERABLES * (ABNORMAL) HEPATIC FUNCTION PANEL (06/18/2013 3:34 PM CDT) Protein Total 6.6 6.0 - 8.5 g/dL [facility] ACCOUNT BILL Albumin 4.0 3.5 - 5.5 g/dL [facility] ACCOUNT BILL Bilirubin Total 0.4 0.0 - 1.2 mg/dL [facility] ACCOUNT BILL Bilirubin Direct 0.12 0.00 - 0.40 mg/dL [facility] ACCOUNT BILL Alkaline Phosphatase 90 44 - 102 IU/L [facility] ACCOUNT BILL AST 47(H) 0 - 40 IU/L [facility] ACCOUNT BILL ALT 42 0 - 44 IU/L [facility] ACCOUNT BILL Blood specimen (specimen) BLOOD SPECIMEN / Unknown 06/18/2013 3:34 PM CDT 06/18/2013 6:31 PM CDT Narrative Resulting Agency Comment [facility] [address] [facility] [phone] Angelina Rust DO LAB - CHEMISTRY LIZABETH WILEY [facility] ACCOUNT BILL * (ABNORMAL) GENERAL HEALTH PANEL (04/10/2013 2:16 PM CDT) Only the most recent of2 resultswithin the time period is included. Glucose 91 65 - 99 mg/dL [facility] ACCOUNT BILL BUN 12 6 - 24 mg/dL [facility] ACCOUNT BILL Creatinine 0.75(L) 0.76 - 1.27 mg/dL [facility] ACCOUNT BILL eGFR by MDRD 109 >59 mL/min/1. 73 [facility] ACCOUNT BILL eGFR by MDRD 126 >59 mL/min/1. 73 [facility] ACCOUNT BILL BUN/Creatinine Ratio 16 9 - 20 [facility] ACCOUNT BILL Sodium 140 134 - 144 mmol/L [facility] ACCOUNT BILL Potassium 4.1 3.5 - 5.2 mmol/L [facility] ACCOUNT BILL Chloride 99 97 - 108 mmol/L [facility] ACCOUNT BILL CO2 24 19 - 28 mmol/L [facility] ACCOUNT BILL Calcium 9.1 8.7 - 10.2 mg/dL [facility] ACCOUNT BILL Protein Total 7.1 6.0 - 8.5 g/dL [facility] ACCOUNT BILL Albumin 4.3 3.5 - 5.5 g/dL [facility] ACCOUNT BILL Globulin Total 2.8 1.5 - 4.5 g/dL [facility] ACCOUNT BILL Albumin/Globulin Ratio 1.5 1.1 - 2.5 [facility] ACCOUNT BILL Bilirubin Total 0.8 0.0 - 1.2 mg/dL [facility] ACCOUNT BILL Alkaline Phosphatase 108(H) 44 - 102 IU/L [facility] ACCOUNT BILL AST 36 0 - 40 IU/L [facility] ACCOUNT BILL ALT 31 0 - 44 IU/L [facility] ACCOUNT BILL TSH 2.640 0.450 - 4.500 uIU/mL [facility] ACCOUNT BILL WBC 7.1 4.0 - 10.5 x10E3/uL [facility] ACCOUNT BILL RBC 4.89 4.14 - 5.80 x10E6/uL [facility] ACCOUNT BILL Hemoglobin 15.8 12.6 - 17.7 g/dL [facility] ACCOUNT BILL Hematocrit 45.6 37.5 - 51.0 % [facility] ACCOUNT BILL MCV 93 79 - 97 fL [facility] ACCOUNT BILL MCH 32.3 26.6 - 33.0 pg [facility] ACCOUNT BILL MCHC 34.6 31.5 - 35.7 g/dL [facility] ACCOUNT BILL RDW 13.5 12.3 - 15.4 % [facility] ACCOUNT BILL Platelet Count 245 140 - 415 x10E3/uL [facility] ACCOUNT BILL Granulocytes % 46 40 - 74 % [facility] ACCOUNT BILL Lymphocytes % 40 14 - 46 % [facility] ACCOUNT BILL Monocytes % 7 4 - 13 % [facility] ACCOUNT BILL Eosinophils % 6 0 - 7 % [facility] ACCOUNT BILL Basophils % 1 0 - 3 % [facility] ACCOUNT BILL Immature Cells NOT NEEDED [facility] ACCOUNT BILL Comment:Ancillary determined the test is not needed Granulocytes Absolute 3.3 1.8 - 7.8 x10E3/uL [facility] ACCOUNT BILL Lymphocytes Absolute 2.8 0.7 - 4.5 x10E3/uL [facility] ACCOUNT BILL Monocytes Absolute 0.5 0.1 - 1.0 x10E3/uL [facility] ACCOUNT BILL Eosinophils Absolute 0.4 0.0 - 0.4 x10E3/uL [facility] ACCOUNT BILL Basophils Absolute 0.1 0.0 - 0.2 x10E3/uL [facility] ACCOUNT BILL Immature Granulocytes 0 0 - 2 % [facility] ACCOUNT BILL Immature Granulocytes Absolute 0.0 0.0 - 0.1 x10E3/uL [facility] ACCOUNT BILL nRBC NOT NEEDED [facility] ACCOUNT BILL Comment:Ancillary determined the test is not needed Comment Hematology NOT NEEDED [facility] ACCOUNT BILL Comment:Ancillary determined the test is not needed BLOOD SPECIMEN / Unknown 04/10/2013 2:16 PM CDT 04/10/2013 6:37 PM CDT Narrative Resulting Agency Comment [facility] [address] [facility] [phone] Angelina Rust DO LAB - CHEMISTRY LIZABETH WILEY [facility] ACCOUNT BILL * PSA FREE + TOTAL PANEL (06/10/2012 9:14 AM CDT) Only the most recent of2 resultswithin the time period is included. PSA 1.7 0.0 - 4.0 ng/mL [facility] ACCOUNT BILL Comment: Brenda ECLIA methodology. ? . According to the [employer], Serum PSA should decrease and remain at undetectable levels after radical prostatectomy. The AUA defines biochemical recurrence as an initial PSA value 0.2 ng/mL or greater followed by a subsequent confirmatory PSA value 0.2 ng/mL or greater. Values obtained with different assay methods or kits cannot be used interchangeably. Results cannot be interpreted as absolute evidence of the presence or absence of malignant disease. PSA Free 0.46 N/A ng/mL [facility] ACCOUNT BILL Comment:Brenda ECLIA methodol ogy. PSA % Free 27.1 % [facility] ACCOUNT BILL Comment: The table below lists the probability of prostate cancer for men with non-suspicious JOSTIN results and total PSA between 4 and 10 ng/mL, by patient age (Earnest et al, MADIHA 1998, 279:1542). ?% Free PSA ? 50-64 yr ?65-75 yr ?0.00-10.00% ?56% ? 55% ? 10.01-15.00% ?24% ? 35% ? 15.01-20.00% ?17% ? 23% ? 20.01-25.00% ?10% ? 20% ?>25.00% ? 5% ?9% Please note: ??Earnest et al did not make specific ?recommendations regarding the use of ?percent free PSA for any other population ?of men. Blood specimen (specimen) BLOOD SPECIMEN / Unknown 06/10/2012 9:14 AM CDT 06/10/2012 5:20 PM CDT Narrative Resulting Agency Comment [facility] [place] [address] [facility] [place] [phone] Angelina Rust DO LAB - CHEMISTRY LIZABETH WILEY [facility] ACCOUNT BILL * BASIC METABOLIC PANEL (CALCIUM TOTAL) (06/03/2012 6:02 AM CDT) BUN 15 7.0 - 21.0 mg/dL [facility] Sodium 141 136 - 145 mmol/L [facility] Potassium 4.0 3.5 - 5.1 mmol/L [facility] Chloride 107 98.0 - 107.0 mmol/L [facility] CO2 28 22.0 - 30.0 mmol/L [facility] Anion Gap 6.0 [facility] Glucose 100 74 - 106 mg/dL [facility] Creatinine 0.67 0.5 - 1.3 mg/dL [facility] Calcium 8.7 8.5 - 10.1 mg/dL [facility] eGFR by MDRD 128 mL/min/1.73 m2 [facility] Blood specimen (specimen) BLOOD SPECIMEN / Unknown 06/03/2012 6:02 AM CDT 06/03/2012 6:12 AM CDT Toni Muñoz MD LAB - CHEMISTRY LIZABETH WILEY [facility] Organization Address City/State/ZIP Co de Phone Number [facility] [address] [place] [address] * EKG 12-LEAD (06/03/2012 4:47 AM CDT) Only the most recent of3 resultswithin the time period is included. Ventricular Rate 74 BPM [facility] Atrial Rate 74 BPM [facility] P-R Interval 172 ms [facility] QRS Duration ms 108 ms [facility] Q-T Interval ms 394 ms [facility] QTC Calculation (Bezet) 437 ms [facility] Calculated P [place] 34 degrees [facility] Calculated R [place] 35 degrees [facility] Calculated T [place] 23 degrees [facility] Interpretation EKG Normal sinus rhythm Normal ECG No previous ECGs available Confirmed by ATTILA MERINO MD ([id number]) on 06/05/2012 9:12:30 AM [facility] 06/03/2012 4:47 AM CDT 06/05/2012 9:12 AM CDT Narrative Transcriptions Document, Scanned - 06/03/2012 3:42 PM CDT Document, Scanned - 06/05/2012 9:14 AM CDT Toni Muñoz MD ECG ORDERABLES [facility] * OCCULT BLOOD FECES 1-3 SCREEN POINT OF CARE (AMB) (05/10/2011 11:36 AM CDT) Occult Blood 1 neg Negative Occult Blood 2 neg Negative Occult Blood 3 neg Negative Card Lot Number Card Exp Date yes Yes Developer Lot Number Developer Expiration Date yes Yes QC Negative neg Negative QC Positive STOOL SPECIMEN / Unknown Angelina Rust DO LAB - POINT OF CARE ORDERABLES * PO REF LAB-TEST AUTHORIZATION (05/09/2011 2:50 PM CDT) NTQR Reading Physician ID ACUTE HEP PANEL [facility] Test Code 31713 [facility] Client Contact ALIYAHCHAPIS VIDAL See Note [facility] Comment: The laboratory testing on this patient was verbally requested or confirmed by the ordering physician or his or her authorized marketing development representative after contact with an employee of [employer]. Federal regulations require that we maintain on file written authorization for all laboratory testing. ??Accordingly we are asking that the ordering physician or his or her authorized marketing development representative sign a copy of this report and promptly return it to the client application support specialist. Signature: Fax number: [phone] Test Performed at: [facility] [address] ??[address] BISI SCHWARZ DO,MPH 05/09/2011 2:50 PM CDT 05/10/2011 5:23 AM CDT Angelina Rust DO LAB - CHEMISTRY ORDE INEZ [facility] [address] [place] [address] * HEPATITIS SCREEN ACUTE W/REFLX HBSAG (POREF (05/09/2011 2:50 PM CDT) Only the most recent of2 resultswithin the time period is included. Hepatitis A Virus Antibody IgM NON-REACTI VE NON-REACT [facility] Comment: Test Performed at: [facility] [address] [facility] [place] BISI SCHWARZ DO,MPH Hepatitis B Virus Surface Antigen NON-REACTI VE NON-REACT [facility] Hepatitis B Core Virus Antibody IgM NON-REACTI VE NON-REACT QUINN [facility] Hepatitis C Antibody NON-REACTI VE NON-REACT QUINN [facility] Signal to Cut-Off 0.12 <1.00 [facility] 05/09/2011 2:50 PM CDT 05/10/2011 5:23 AM CDT Angelina Rust DO LAB - CHEMISTRY LIZABETH WILEY [facility] Organization Address City/State/[facility] Co de Phone Number [facility] [address] [place] [address] * XR CHEST PA AND LATERAL (12/22/2010 11:11 AM CDT) Only the most recent of2 resultswithin the time period is included. Anatomical Region Laterality Modality Chest Radiographic Nataliya ging 12/22/2010 11:1 6 AM CDT Impressions 12/22/2010 11:50 AM CDT LOW LUNG VOLUMES WITH HYPOVENTILATORY CHANGES. Narrative 12/22/2010 11:50 AM CDT CHEST - TWO VIEWS INDICATION: Shortness of breath. FINDINGS: Two views of the chest, without prior, show low lung volumes bilaterally with hypoventilatory changes. There is no consolidation or pleural effusion. The heart size is normal. Procedure Note Alpesh Turner MD - 12/22/2010 CHEST - TWO VIEWS INDICATION: Shortness of breath. FINDINGS: Two views of the chest, without prior, show low lung volumes bilaterally with hypoventilatory changes. There is no consolidation or pleural effusion. The heart size is normal. IMPRESSION LOW LUNG VOLUMES WITH HYPOVENTILATORY CHANGES. Liv Gaines MD DIAGNOSTIC IMAGIN G ORDERABLES * CARDIAC STRESS ECHO ORDER (04/06/2010 11:45 AM CDT) Narrative Procedure Note Bernabe Cazares MD - 04/06/2010 11:[facility] PATIENT: LENNIE CROCKETT MR#: [id number] [id number] 1965 ROOM: REFERRING PHYSICIAN: ANGELINA RUST DO STRESS ECHOCARDIOGRAM: INDICATIONS: Lennie Crockett is a 44 year old male with chest pain. The baseline electrocardiogram was normal. He exercised for 9 minutes and0 seconds on the Winston protocol reaching a peak heart rate of 155 beatsper minute stopping because of fatigue and shortness of breath. There wereno ST changes or arrhythmias. Echocardiographic images at baseline showed upper normal LV wallthickness, borderline hypertrophy with normal LV size and systolicfunction. Normal mitral and aortic valves. Normal left atrium and aorticroot diameter. At peak exercise there is a uniform increase in leftventricular contractility with no segmental wall motion abnormalities. CONCLUSION: 1.Maximal treadmill stress echocardiography negative for myocardialischemia. 2.Electrocardiographically negative stress test. 3.Clinically negative stress test. 4.Average exercise tolerance and functional aerobic capacity. The Santana'streadmill score is 9 (low risk). 5.There is upper normal left ventricularwall thickness, borderline hypertrophy with normal left ventricular sizeand systolic function on baseline echocardiographic images. BERNABE CAZARES MD SKN/PM #: [id number] CC: ANGELINA RUST DO STRESS TEST - DP Bernabe Cazares MD CARDIAC SERVICES ORD ERABLES * IRON + TIBC PANEL (03/31/2010 7:00 AM CDT) Iron 122 45 - 170 mcg/dL [facility] TIBC 354 250 - 425 mcg/dL [facility] % Saturation 34 20 - 50 % (calc) [facility] Comment: Test Performed at: [facility] [address] [address] [place] ??[address] BISI SCHWARZ DO,MPH 03/29/2010 5:4 6 AM CDT Angelina Josh Barrera [facility] - CHEMISTRY LIZABETH WILEY [facility] [address] [place] [address] * MRI SPINE CERVICAL NON CONTRAST (04/05/2009 5:58 PM CDT) Anatomical Region Laterality Modality Pelvis Magnetic Resonan ce 04/25/2009 1:24 PM CDT Addenda This result is currently undergoing an addendum. Addendum by Lilliam Morris on 04/25/2009 1:25 PM CDT The T-1/2 level appears normal in axial projection. Impressions 04/25/2009 1:25 PM CDT Disc herniation and osteophytic ridge from C3-C4 through C6-C7 is most significant at C5-C6 where a moderate central canal stenosis results, and at C6-C7 where a moderate to severe proximal left neural foraminal stenosis results. Narrative 04/25/2009 1:25 PM CDT INDICATION: Cervical radiculopathy to right arm. TECHNIQUE: The following sequences were obtained: Sagittal T1 and T2, axial T2 volume, axial gradient-echo. COMPARISON: Radiographic examination of cervical spine March 31, 2009. FINDINGS Alignment: There is loss of the normal cervical lordosis. This is a nonspecific finding which may be secondary to muscle spasm or patient positioning. Spinal Cord: Appears displaced by disc and osteophyte from C3-C4 through C6-C7. No definite abnormal signal is seen within the cervical spinal cord. Marrow: Within normal limits. Intervertebral Discs: Mild disc space narrowing is present at C4-C5 and C6-C7 with moderate disc space narrowing at C5-C6. Posterior disc and osteophyte are present from C3-C4 through C6-C7. The following levels were directly imaged in the axial plane: C2-C3: Normal. C3-C4: Disc and osteophyte efface the ventral CSF space but do not result in significant stenosis. The right neural foramen is minimally narrowed secondary to uncovertebral osteophytosis. C4-C5: Disc and osteophyte eccentric to the right contact the cervical spinal cord and result in a mild central canal stenosis. Neural foramina appear patent. C5-C6: Disc and osteophyte contact the cervical spinal cord, resulting in a moderate central canal stenosis. Left neural foramen is mildly narrowed and the right mild to moderately narrowed secondary to uncovertebral osteophytosis. C6-C7: Disc herniation eccentric to the left contacts and rotates the cervical spinal cord with a mild central canal stenosis. This results in a moderate to severe proximal left neural foraminal stenosis . Mild right neural foraminal stenosis is due to uncovertebral osteophytosis. C7-T1: No significant stenosis is appreciated. C7-T1: Normal. Procedure Note Lilliam Morris Miya - 04/05/2009 INDICATION: Cervical radiculopathy to right arm. TECHNIQUE: The following sequences were obtained: Sagittal T1 and T2, axial T2 volume, axial gradient-echo. COMPARISON: Radiographic examination of cervical spine March 31, 2009. FINDINGS Alignment: There is loss of the normal cervical lordosis. This is a nonspecific finding which may be secondary to muscle spasm or patient positioning. Spinal Cord: Appears displaced by disc and osteophyte from C3-C4 through C6-C7. No definite abnormal signal is seen within the cervical spinal cord. Marrow: Within normal limits. Intervertebral Discs: Mild disc space narrowing is present at C4-C5 and C6-C7 with moderate disc space narrowing at C5-C6. Posterior disc and osteophyte are present from C3-C4 through C6-C7. The following levels were directly imaged in the axial plane: C2-C3: Normal. C3-C4: Disc and osteophyte efface the ventral CSF space but do not result in significant stenosis. The right neural foramen is minimally narrowed secondary to uncovertebral osteophytosis. C4-C5: Disc and osteophyte eccentric to the right contact the cervical spinal cord and result in a mild central canal stenosis. Neural foramina appear patent. C5-C6: Disc and osteophyte contact the cervical spinal cord, resulting in a moderate central canal stenosis. Left neural foramen is mildly narrowed and the right mild to moderately narrowed secondary to uncovertebral osteophytosis. C6-C7: Disc herniation eccentric to the left contacts and rotates the cervical spinal cord with a mild central canal stenosis. This results in a moderate to severe proximal left neural foraminal stenosis . Mild right neural foraminal stenosis is due to uncovertebral osteophytosis. C7-T1: No significant stenosis is appreciated. C7-T1: Normal. IMPRESSION Disc herniation and osteophytic ridge from C3-C4 through C6-C7 is most significant at C5-C6 where a moderate central canal stenosis results, and at C6-C7 where a moderate to severe proximal left neural foraminal stenosis results. Jammie PEREZ ORDERABLES Care Teams Strategies Analyst Relationship Specialty Start Date End Date Pcp, Manuel Pérez PCP - General 02/28/23
--- OUTSIDE RECORDS SUMMARY | 2024-09-06 20:27 | XMS_ITS | Referral Summary ---
Author Organization [facility] Address [address] [place] [address] Care Team Providers Care Cupola Worker Name Role Phone Pcp, Manuel Pérez Primary Care Provider Unav ailable Source Comments [facility],non-owned Affiliates and Associated Physician Practices is amultiple site organization consisting of ambulatory clinics and hospital sitesin [place], [place], [place] and [place]. This disclosure is being madepursuant to the Care Everywhere program and may not contain all information available regarding this patient. Last updated 18.[facility] Allergies Active Allergy Reactions Criticality Noted Date Comments Perry Inhibitors Cough Low 09/30/2009 Azithromycin Itching 02/18/2019 Medications * Be aware that medications may not be up to date on this document. Alwaysverify current medications with the patient. Medication Sig Dispensed Refills Start Date End Date Status HYDROcodone-acetamino phen ([place]) 5-325 MG tabletIndications:Chr onic pain syndrome Take 1 (one) tablet by mouth every 4 hours as needed for Pain Dx M50.30 120 tablet 02/03/2023 Active HYDROcodone-acetamino phen ([place]) 7.5-325 MG tabletIndications:Chr onic pain syndrome Take 1 (one) tablet by mouth every 4 hours as needed for Pain Dx M50.30 120 tablet 01/07/2023 Active HYDROcodone-acetamino phen ([place]) 7.5-325 MG tabletIndications:Chr onic pain syndrome Take 1 (one) tablet by mouth every 4 hours as needed for Pain Dx M50.30 120 tablet 12/12/2022 Active losartan (Cozaar) 100 MG tablet Take 1 (one) tablet by mouth once daily 90 tablet 1 12/12/2022 Active albuterol HFA (Proventil; Ventolin; Proair) 108 (90 Base) MCG/ACT inhaler TAKE 2 PUFFS BY MOUTH EVERY 4 HOURS NEEDED 8.5 g 01/23/2023 Active ketorolac (Toradol) 10 MG tablet Take 1 (one) tablet by mouth every 6 hours as needed for Pain 15 tablet 03/15/2023 Active Active Problems Problem Noted Date Diagnosed Date Intermittent asthma 11/19/2017 Perirectal abscess 09/05/2017 Pain medication agreement signed 06/24/2014 Degeneration of lumbar or lumbosacral interverte bral disc 06/24/2014 Degeneration of cervical intervertebral disc Metabolic syndrome 06/24/2014 Glucose intolerance (impaired glucose tolerance) 06/24/2014 Benign prostatic hyperplasia 06/10/2012 Overview (02/16/2017): IMO Update 02/23/2017 Need for influenza vaccination 05/23/2011 Hepatic steatosis 05/18/2011 HTN (hypertension), benign 06/16/2009 Hyperlipidemia 01/08/2009 Arthritis 01/08/2009 Resolved Problems Problem Noted Date Diagnosed Date Resolved Date Hypertension 01/08/2009 06/16/2009 Immunizations Name Administration Dates Next Due INFLUENZA VACCINE, TRIV. 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 No 04/15/2014 Plan of Treatment Not on file Goals Goal Patient Goal Type Associated Problems Recent Progress Patient-Stated? Author Blood Pressure < 140/90 Blood Pressure 172/93(2022 8:59 AM CDT) No Zachary Moreno Quit smoking / using tobacco Lifestyle No Puja Raymundo Procedures Procedure Name Priority Date/Time Associated Diagnosis Comments OPIATES URINE CONFIRMATION Routine 01/09/2021 10:45 AM CDT Pain medication agreement COMPREHENSIVE METABOLIC PANEL Routine 01/09/2021 10:44 AM CDT Annual physical exam LIPID PROFILE Routine 01/09/2021 10:44 AM CDT Annual physical exam ENDOSCOPY, COLON, SCREENING Routine 04/15/2014 8:24 AM CDT HEPATITIS SCREEN ACUTE W/REFLX HBSAG 05/09/2011 2:50 PM CDT from Last 3 Months or Most Recently Relevant to Health Maintenance Results * OPIATES URINE CONFIRMATION (01/09/2021 10:45 AM CDT) Opiates Negative [id number] [facility] ACCOUNT BILL Comment: Opiate test includes Codeine and Morphine only. FASTING 01/09/2021 10:4 5 AM CDT 01/09/2021 Narrative Resulting Agency Comment Lab Testing performed at: [facility] [address] [facility] [phone] Alf Khan DO LAB - URINE CHEMISTR Y ORDERABLES [facility] ACCOUNT BILL [address] [place] [address] * (ABNORMAL) COMPREHENSIVE METABOLIC PANEL (01/09/2021 10:44 AM CDT) Glucose 144(H) 65 - 99 mg/dL [facility] [...] Agency Comment Lab Testing performed at: [facility] [address] ??[facility] [phone] Alf Khan DO LAB - CHEMISTRY LIZABETH WILEY Performing Organization Address [facility] Co de Phone Number [facility] ACCOUNT BILL [address] [place] [address] * (ABNORMAL) LIPID PROFILE (01/09/2021 10:44 AM CDT) Cholesterol 190 100 - 199 mg/dL [facility] [...] Agency Comment Lab Testing performed at: [facility] [address] ??[facility] [phone] Alf Khan DO LAB - CHEMISTRY LIZABETH WILEY Performing Organization Address City/[facility] Co de Phone Number [facility] ACCOUNT BILL [address] [place] [address] * ENDOSCOPY, COLON, SCREENING (04/15/2014 8:24 AM CDT) Report Endoscopy POC _ Patient Name: Trenton Crockett ? Procedure Date: 04/15/2014 8:24 AM ? Date of : 1965 ? Admit Type: Outpatient Age: 48 ? Gender: Male Attending MD: Astrid Rios, ?? _ Procedure: ? Colonoscopy Indications: ? Abdominal pain in the right lower quadrant Providers: ? Astrid Rios, DO (Doctor) Referring MD: ?Alf Khan DO [...] Procedure Code(s): ? --- Professional --- ? 06213, Colonoscopy, flexible, proximal to splenic flexure; with removal ? of tumor(s), polyp(s), or other lesion(s) by snare technique ? --- Technical --- ? 72197, Colonoscopy, flexible, proximal to splenic flexure; with [...] (without mention of hemorrhage) CPT copyright 2013 [employer] [place] [employer]. All rights reserved. The codes documented in this report are preliminary and upon medical claims representative review may be revised to meet current compliance requirements. ___ Astrid Rios DO 04/15/2014 8:51 AM This report has been signed electronically. Number of Addenda: 0 Note Initiated On: 04/15/2014 8:24 AM [facility] ENDOSCOPY 04/15/2014 8:24 AM CDT Astrid Rios DO GI PROCEDURE ORDERAB LES Performing Organization Address City/[facility]/ZIP Co de Phone Number [facility] [place] [address] * HEPATITIS SCREEN ACUTE W/REFLX HBSAG (POREF (05/09/2011 2:50 PM CDT) Hepatitis A Virus Antibody IgM NON-REACTI VE NON-REACT QUINN [facility] Comment: Test Performed at: [facility] [address] ??[address] BISI SCHWARZ DO,MPH Hepatitis B Virus Surface Antigen NON-REACTI VE NON-REACT QUINN [facility] Hepatitis B Core Virus Antibody IgM NON-REACTI VE NON-REACT QUINN [facility] Hepatitis C Antibody NON-REACTI VE NON-REACT QUINN [facility] Signal to Cut-Off 0.12 <1.00 [facility] 05/09/2011 2:50 PM CDT 05/10/2011 5:23 AM CDT Jose Rust DO LAB - CHEMISTRY LIZABETH WILEY [facility] [address] [place] [address] from Last 3 Months or Most Recently Relevant to Health Maintenance Care Teams Cupola Worker Relationship Specialty Start Date End Date PcpManuel PCP - General 02/28/23
--- OUTSIDE RECORDS SUMMARY | 2024-09-06 20:27 | XMS_ITS | Encounter Summary ---
Author Organization [facility] Health Address [address] 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 Will try and get scripts at [facility] where they were originally sent. If there is a problem still he will let office know. * Telephone Encounter - Alf Khan DO - 02/14/2022 1:34 PM CDT I do not move controlled substance prescriptions. Any case prescribing controlled substances must have some sort of office visit and documentation of why I am doing this. Why do they need to be moved? If he keeps calling the drugstore and asked him to have these filled early I will not be able to de scribe these for him because I am not going to be turned down by pharmacist to the [facility] * Addendum Note - Juan Jose Smith - 02/14/2022 12:35 PM CDTAddended by: JUAN JOSE SMITH on: 02/14/2022 12:35 PM Modules accepted: Orders * Telephone Encounter - Deisi Duran Edmundo - 02/14/2022 12:13 PM CDT [facility] Trenton Crockett Requested Prescriptions Pending Prescriptions Disp Refills ??? HYDROcodone-acetaminophen (NORCO) 5-325 MG tablet 120 tablet 0 Sig: Take 1 (one) tablet by mouth every 4 hours as needed for Pain Dx M50.30 ??? HYDROcodone-acetaminophen (NORCO) 7.5-325 MG tablet 48 tablet 0 Sig: Take 1 (one) tablet by mouth every 4 hours as needed for Pain Dx M50.30 Allergies Allergen Reactions ??? Zithromax [Azithromycin] Itching ??? Perry Inhibitors Cough viki has been uploaded. * Telephone Encounter - Juan Jose Smith - 02/14/2022 11:52 AM CDT Pt. Informed that pharmacist has concerns and is questioning filling his scripts in the future. Will talk to pharmacy and see if they weill fill the 2 script son file. If not, please send scripts to [facility]. * Telephone Encounter - Alf Khan DO - 02/14/2022 8:41 AM CDT I understand but but he is doing is not against the law it is just being annoying. Does he get prescriptions from more doctors than me? * Telephone Encounter - Juan Jose Smith - 02/13/2022 10:36 AM CDT Last ov with PCP = 01/18/22 Per pharmacists - mr. Crockett and his are exhibiting behaviors of addiction: Calling every day to get a different pharmacists to fill script early - every month. Or showing up a week or 2 early to pickle solution maker medication - for pain medication. Pharmacy wanted to let PCP know and was considering refusing to fill script going forward. Please call back. documented in this encounter Plan of Treatment Not on file documented as of this encounter Goals Goal Patient Goal Type Associated Problems Recent Progress Patient-Stated? Author Blood Pressure < 140/90 Blood Pressure 172/93(2022 8:59 AM CDT) No Zachary Moreno Quit smoking / using tobacco Lifestyle No Puja Raymundo documented as of this encounter Visit Diagnoses Not on filedocumented in this encounter Care Teams Circular Head Saw Operator Relationship Specialty Start Date End Date Alf Khan DO PCP - General Family Medicine 09/03/13 02/27/23 documented as of this encounter
--- OUTSIDE RECORDS SUMMARY | 2024-09-06 20:27 | XMS_ITS | Encounter Summary ---
Author Organization [facility] Health Address [address] [place] [address] Care Team Providers Care Correctional Facility Nurse Name Role Phone Alf Khan DO Primary Care Provider Stephan rosa Encounter Details Date Type Department Care Team (Latest Contact Info) Description 07/13/2021 2:00 PM WORKERS' COMPENSATION MEDIATOR - 07/13/2021 11:59 PM WORKERS' COMPENSATION MEDIATOR Hospital Encounter [facility] [address] [place] [address] Izzy Cruz, GM [facility] [address] [place] [address] Discharge Disposition: Home or Self Care Social History Tobacco Use Types Packs/Day Years Used Date Smoking Tobacco: Every Day Cigarettes 1.5 25 Started: 12/07/1985; Last attempted to quit: 12/07/2010 Smokeless Tobacco: Never Alcohol Use Standard Drinks/Week Comments Yes 0 (1 standard drink = 0.6 oz pur e alcohol) social Sex and Gender Information Value Date Recorded Sex Assigned at Male 08/31/2020 7:44 AM WORKERS' COMPENSATION MEDIATOR Gender Identity Male 08/31/2020 7:44 AM WORKERS' COMPENSATION MEDIATOR Sexual Orientation Straight 08/31/2020 7: 44 AM WORKERS' COMPENSATION MEDIATOR COVID-19 Exposure Response Date Recorded In the last month, have you been in contact with someone who was confirmed or suspected to have Coronavirus / COVID-19? No / Unsure 07/13/2021 9:06 AM WORKERS' COMPENSATION MEDIATOR documented as of this encounter Last Filed Vital Signs Vital Sign Reading Time Taken Comments Blood Pressure 165/88 07/13/2021 2:43 PM WORKERS' COMPENSATION MEDIATOR Pulse 85 07/13/2021 2:43 PM WORKERS' COMPENSATION MEDIATOR Temperature 36.6 ??C (97.9 ??F) 07/13/2021 2:43 PM CS T Respiratory Rate 18 07/13/2021 2:43 PM WORKERS' COMPENSATION MEDIATOR Oxygen Saturation 98% 07/13/2021 2:43 PM WORKERS' COMPENSATION MEDIATOR Inhaled Oxygen Concentration - - Weight 117 kg (258 lb) 07/13/2021 2:43 PM WORKERS' COMPENSATION MEDIATOR Height 180.3 cm (5' 11 ) 07/13/2021 2:43 PM WORKERS' COMPENSATION MEDIATOR Body Mass Index 35.98 07/13/2021 2:43 PM WORKERS' COMPENSATION MEDIATOR documented in this encounter Functional Status Functional [...] No 04/15/2014 documented as of this encounter Discharge Instructions * Patient Instructions* Izzy Rajan, GM VIDEO-DEMOGRAPHIC ANALYST - 07/13/2021 3:11 PM WORKERS' COMPENSATION MEDIATOR Please follow up with Alf Khan DO for further evaluation and pain management of post-traumatic head injury. Patient Education Head Injury PRODUCT SAFETY TESTER: A head injury can include your scalp, face, skull, or brain and range from mild to severe. Effects can appear immediately after the injury or develop later. The effects may last a short time or be permanent. Healthcare providers may want to check your recovery over time. Treatment may change as yourecover or develop new health problems from the head injury. Common signs and symptoms: ?? An open scalp or skin wound, swelling, or bruising ?? Mild to moderate headache ?? Dizziness or loss of balance ?? Nausea or vomiting ?? Ringing in the ears or neck pain ?? Confusion, especially right after the injury ?? Change in mood, such as feeling restless or irritable ?? Trouble thinking, remembering, or concentrating ?? Drowsiness or decreased amount of energy ?? Trouble sleeping Call your local emergency number (911 in the [place]), or have someone else call if: ?? You cannot be woken. ?? You have a seizure. ?? You stop responding to others or you faint. ?? You have blurry or double vision. ?? Your speech becomes slurred or confused. ?? You have arm or leg weakness, loss of feeling, or new problems with coordination. ?? Your pupils are larger than usual, or one pupil is a different size than the other. ?? You have blood or clear fluid coming out of your ears or nose. Seek care immediately if: ?? You have repeated or forceful vomiting. ?? You feel confused. ?? Your headache gets worse or becomes severe. ?? You or someone caring for you notices that you are harder to wake than usual. Call your doctor if: ?? Your symptoms last longer than 6 weeks after the injury. ?? You have questions or concerns about your condition or care. Medicines: ?? Acetaminophen decreases pain and fever. It is available without a doctor's order. Ask how much to take and how often to take it. Follow directions. Read the labels of all other medicines you are using to see if they also contain acetaminophen, or ask your doctor or pharmacist. Acetaminophen can cause liver damage if not taken correctly. Do not use more than 4 grams (4,000 milligrams) total of acetaminophen in one day. ?? Take your medicine as directed. Contact your healthcare provider if you think your medicine is not helping or if you have side effects. Tell him or her if you are allergic to any medicine. Keep a list of the medicines, vitamins, and herbs you take. Include the amounts, and when and why you take them. Bring the list or the pill bottles to follow-up visits. Carry your medicine list with you in case of an emergency. Self-care: ?? Rest or do quiet activities. Limit your time watching TV, using the computer, or doing tasks that require a lot of thinking. Slowly return to your normal activities as directed. Do not play sportsor do activities that may cause you to get hit in the head. Ask your healthcare provider when you can return to sports. ?? Apply ice on your head for 15 to 20 minutes every hour or as directed. Use an ice pack, or put crushed ice in a plastic bag. Cover it with a towel before you apply it to your skin. Ice helps prevent tissue damage and decreases swelling and pain. ?? Have someone stay with you for 24 hours , or as directed. This person can monitor you for problems and call for help if needed. When you are awake, the person should ask you a few questions every few hours to see if you are thinking clearly. An example is to ask your name or address. Prevent another head injury: ?? Wear a helmet that fits properly. Do this when you play sports, or ride a bike, scooter, or skateboard. Helmets help decrease your risk for a serious head injury. Talk to your healthcare provider about other ways you can protect yourself if you play sports. ?? Wear your seatbelt every time you are in a car. This helps lower your risk for a head injury if you are in a car accident. Follow up with your doctor as directed: Write down your questions so you remember to ask them during your visits. ?? Copyright [employer] 2020 Information is for End User's use only and may not be sold, redistributed or otherwise used for commercial purposes. All illustrations and images included in CareNotes?? are the copyrighted property of [employer] or [employer] The above information is an compliance aide only. It is not intended as medical advice for individual conditions or treatments. Talk to your doctor, nurse or pharmacist before following any medical regimen to see if it is safe and effective for you. ERS' COMPENSATION MEDIATOR documented in this encounter Medications at Time of Discharge Medication Sig Dispensed Refills Start Date End Date albuterol HFA (PROVENTIL;VENTOLIN;CO OAIR) 108 (90 Base) MCG/ACT inhaler Inhale 2 (two) puffs by mouth every 4 hours as needed for Shortness of Breath, Wheezing or Cough 8.5 g 2 05/25/2021 12/12/2021 HYDROcodone-acetaminop hen (NORCO) 5-325 MG tablet Take 1 (one) tablet by mouth every 4 hours as needed for Pain Dx M50.30 120 tablet 05/30/2021 07/27/2021 HYDROcodone-acetaminop hen (NORCO) 7.5-325 MG tablet Take 1 (one) tablet by mouth every 4 hours as needed for Pain Dx M50.30 120 tablet 06/28/2021 07/27/2021 HYDROcodone-acetaminop hen (NORCO) 7.5-325 MG tablet Take 1 (one) tablet by mouth every 4 hours as needed for Pain Dx M50.30 120 tablet 05/04/2021 07/27/2021 sildenafil (REVATIO) 20 MG tablet TAKE 3- 5 TABLETS prn sex 100 tablet 11 07/09/2019 07/17/2021 documented as of this encounter Progress Notes * Izzy Rajan, GM VIDEO-DEMOGRAPHIC ANALYST - 07/13/2021 2:57 PM CST Images from the original note were not included. [facility] History of Present Illness Patient Identification Trenton Crockett is a 55 year old male. PCP: Alf Khan DO Patient information was obtained from patient. History/Exam limitations: none. Patient presented to the Urgent Care ambulatory. Chief Complaint Head injury, continued pain HPI Trenton Crockett is a 55 year old male who presents to the Urgent Care today c/o continued pain to head and back after injury at work 2 days ago. 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 The pain radiates from his neck, down spine into lower extremities. After the injury he was sent for drug testing and then later sent to the ER. He had 14 meera placed to the top of his head with negative CT head and cervical spine. He denies dizziness, blurred vision, weakness, numbness or tingling. Past Medical History: Diagnosis Date ??? GERD (gastroesophageal reflux disease) controlled ??? Motion sickness ??? Pure hypercholesterolemia ??? Snoring no c-pap ??? Unspecified essential hypertension Past Surgical History: Procedure Laterality Date ??? COLONOSCOPY WITH POLYPECTOMY 04/15/2014 Dr Rios ??? HERNIA REPAIR, VENTRAL 06/03/2012 ??? INCISION AND DRAINAGE 09/05/2017 PERIRECTAL ABSCESS ??? INCISION AND DRAINAGE Right 09/05/2017 Right; INCISION AND DRAINAGE ABSCESS PERIRECTAL ??? [place] Tooth Extraction Family History Problem Relation Name Age of Onset ??? Cancer - Lung Mother Current Outpatient Medications Medication Sig Dispense Refill [...] 11 No current facility-administered medications for this encounter. Allergies Allergen Reactions ??? Zithromax [Azithromycin] Itching ??? Perry Inhibitors Cough Social History Tobacco Use ??? Smoking status: Current Every Day Smoker Packs/day: 1.50 Years: 25.00 Pack years: 37.50 Last attempt to quit: 12/07/2010 Years since quittin.6 ??? Smokeless tobacco: Never Used Substance Use Topics ??? Alcohol use: Yes Alcohol/week: 0.0 standard drinks Comment: social Review of Systems Review of Systems Constitutional: Negative for chills, diaphoresis, fever and malaise/fatigue. Eyes: Negative for blurred vision and double vision. Respiratory: Negative for cough and shortness of breath. Cardiovascular: Negative for chest pain and palpitations. Gastrointestinal: Negative for diarrhea, nausea and vomiting. Musculoskeletal: Positive for neck pain. Negative for back pain, falls, joint pain and myalgias. Neurological: Positive for headaches. Negative for dizziness, tingling, sensory change, focal weakness and weakness. Physical Exam BP 165/88 Pulse 85 Temp 97.9 ??F (36.6 ??C) (Temporal) Resp 18 Ht 1.803 m (5' 11 ) Wt 117kg (258 lb) SpO2 98% BMI 35.98 kg/m?? No exam data present Physical Exam Vitals and nursing note reviewed. Constitutional: General: He is not in acute distress. Appearance: Normal appearance. He is well-developed. He is not ill-appearing, toxic-appearing or diaphoretic. HENT: Head: Normocephalic. Comments: 14 meera in left parietal lobe. Eyes: General: No visual field deficit. Neck: Comments: Limited ROM d/t pain. No tenderness over cervical spine. Cardiovascular: Rate and Rhythm: Normal rate and regular rhythm. Heart sounds: Normal heart sounds, S1 normal and S2 normal. Pulmonary: Effort: Pulmonary effort is normal. No tachypnea or respiratory distress. Breath sounds: No stridor. No decreased breath sounds or wheezing. Musculoskeletal: Cervical back: No edema or rigidity. Pain with movement present. No spinous process tenderness or muscular tenderness. Decreased range of motion. Skin: General: Skin is warm. Capillary Refill: Capillary refill takes less than 2 seconds. Findings: No rash. Neurological: Mental Status: He is alert and oriented to person, place, and time. He is not disoriented. GCS: GCS eye subscore is 4. GCS verbal subscore is 5. GCS motor subscore is 6. Cranial Nerves: No dysarthria or facial asymmetry. Motor: Motor function is intact. Coordination: Coordination is intact. Gait: Gait is intact. Comments: Mental status: Awake, alert, oriented x 3 (person, place, time). Higher Cerebral Function: speech - Non- aphasic (normal) Motor Function: Right upper extremity 5 - Normal Strength Left upper extremity 5 - Normal Strength Right lower extremity 5 - Normal Strength Left lower extremity 5 - Normal Strength Sensory Function: Right upper extremity Normal sensation Left upper extremity Normal sensation Right lower extremity Normal sensation Left lower extremity Normal sensation Coordination: Normal finger to nose Gait: stance, stride and arm swing appear normal Psychiatric: Speech: Speech normal. Behavior: Behavior normal. Behavior is cooperative. Thought Content: Thought content normal. Judgment: Judgment normal. Procedures Procedures Lab/SPO2 Interpretation No results found for this visit on 07/13/21. Progress Notes Pt has chronic cervical pain. 90 days norco 7.5mg rx on 05/04/21 and 12 tabs norco 5mg given on 07/11/21. Pt is stating he has no norco left at home. I discussed with pt that in Urgent Care we do not prescribe scheduled narcotics for chronic pain and to follow up with Alf Khan, DO early next week for further pain management. Work note provided to excuse him from work until he sees Alf Khan DO Medical Decision Making I have reviewed the: Vitals. Assessment ICD-10-CM 1. Injury of head, subsequent encounter S09.90XD Plan No orders of the defined types were placed in this encounter. Please follow up with Alf Khan DO for further evaluation and pain management of post-traumatic head injury. Follow up with Alf Khan DO at next available appt. AVS reviewed with patient. The Patient indicates understanding of these issues and agrees with the plan. Patient discharged to Home. ERS' COMPENSATION MEDIATOR documented in this encounter Miscellaneous Notes * Addendum Note - Judith Moran CCS - 07/13/2021 11:59 PM CSTEncounter addended by: Judith Moran CCS on: 07/16/2021 10:43 PM Actions taken: Visit diagnoses modified, Charge Capture section accepted ERS' COMPENSATION MEDIATOR documented in this encounter Plan of Treatment Not on file documented as of this encounter Goals Goal Patient Goal Type Associated Problems Recent Progress Patient-Stated? Author Blood Pressure < 140/90 Blood Pressure 172/93(2022 8:59 AM CDT) No Zachary Moreno Quit smoking / using tobacco Lifestyle No Puja Raymundo documented as of this encounter Visit Diagnoses Diagnosis Injury of head, subsequent encounter- Primary Striking against or struck by other objects, initial encounter documented in this encounter Care Teams Correctional Facility Nurse Relationship Specialty Start Date End Date Alf Khan DO PCP - General Family Medicine 09/03/13 02/27/23 documented as of this encounter
--- OUTSIDE RECORDS SUMMARY | 2024-09-06 20:27 | XMS_ITS | Encounter Summary ---
Author Organization [facility] Address [address] [place] [address] Care Team Providers Care Web Site Admin Name Role Phone Alf Khan DO Primary Care Provider Stephan rosa Reason for Visit * Reason Comments Pain Back pt follow up to on ing back pain Imaging pt requesting MRI fo r his back now that he has insurance Physical Therapy pt requesting PT Encounter Details Date Type Department Care Team (Latest Contact Info) Description 08/31/2020 2:30 PM RESPITE PROVIDER Office Visit [facility] - Family Medicine [address] [place] [address] Alf Khan, DO Degeneration of lumbar or lumbosacral intervertebral disc (Primary Dx); Smoker; Elevated blood pressure reading Social History Tobacco Use Types Packs/Day Years Used Date Smoking Tobacco: Every Day Cigarettes 1.5 25 Started: 12/07/1985; Last attempted to quit: 12/07/2010 Smokeless Tobacco: Never Alcohol Use Standard Drinks/Week Comments Yes 0 (1 standard drink = 0.6 oz pur e alcohol) social Sex and Gender Information Value Date Recorded Sex Assigned at Male 08/31/2020 7:44 AM RESPITE PROVIDER Gender Identity Male 08/31/2020 7:44 AM RESPITE PROVIDER Sexual Orientation Straight 08/31/2020 7: 44 AM RESPITE PROVIDER COVID-19 Exposure Response Date Recorded In the last month, have you been in contact with someone who was confirmed or suspected to have Coronavirus / COVID-19? No / Unsure 08/25/2020 8:08 AM RESPITE PROVIDER documented as of this encounter Last Filed Vital Signs Vital Sign Reading Time Taken Comments Blood Pressure 146/92 08/31/2020 2:21 PM RESPITE PROVIDER Pulse 80 08/31/2020 2:21 PM RESPITE PROVIDER Temperature 37 ??C (98.6 ??F) 08/31/2020 2:21 PM RESPITE PROVIDER Respiratory Rate - - Oxygen Saturation 97% 08/31/2020 2:21 PM RESPITE PROVIDER Inhaled Oxygen Concentration - - Weight 119.3 kg (263 lb) 08/31/2020 2:21 PM RESPITE PROVIDER Height 180.3 cm (5' 11 ) 08/31/2020 2:21 PM RESPITE PROVIDER Body Mass Index 36.68 08/31/2020 2:21 PM RESPITE PROVIDER documented in this encounter Functional Status Functional [...] encounter Progress Notes * Alf Khan, - 08/31/2020 2:44 PM CST Office Visit, Established Patient, [id number] HISTORY: SYDNEE Trenton Crockett is a 54 year old male patient, here for: Chief Complaint Patient presents with ??? Pain Back pt follow up to ongoing back pain ??? Imaging pt requesting MRI for his back now that he has insurance ??? Physical Therapy pt requesting PT HPI: Low mid back pain and numbness in bilateral legs, and 7-9/10 and says back is always a 7/10. Says he has trouble sleeping at night. Says the pain is dull burning and numb and goes into his legs and rash on his belly and he is pretty sure he has spinal stenosis. His back x-ray is below from before. He has not done physical therapy up. He just got insurance and he wants an MRI. I told he is going to have to try therapy 1st. His biggest motivation for coming in he is out of pain pills he sayshe is in agony. He says he gets a pain pill have will take the pain down to around a 5 or less he says otherwise he is always a 7/10. No side effects pain medicine Lumbar spine 5 views ?? Indication: Low back pain, lumbar spine pain, lumbar radiculopathy with right leg pain. ?? Findings: ?? 5 views of the lumbar spine show mild endplate degenerative changes at L5. There is no evidence of acute fracture, subluxation or dislocation. ?? If symptoms persist, followup examination with MRI would be recommended. ?? IMPRESSION ? No acute osseous abnormality Degenerative changes His BP is elevated and has not quit smoking told him to try nicotine gum BP Readings from Last 3 Encounters: 08/31/20 146/92 06/01/20 144/88 02/23/20 148/92 Smokes 1 ppd and he is not interested in quitting and Counseled the patient on smoking cessation, Chantix, [id number] nicotine replacement systems patches and gums. Told them the risks of smoking include lung cancer, bladder cancer, COPD, mi and stroke. They have to be involved in the smokingcessation program or it will not succeed. In other words I cannot make someone quit smoking they have to want to quit smoking. I can give you Chantix and advice on the [id number] nicotine systems and I would suggest to [...] HYDROcodone-acetaminophen (NORCO) 5-325 MG tablet Take 1 tablet by mouth every 4 hours as needed for Pain Dx M50.30 120 tablet 0 ??? HYDROcodone-acetaminophen (NORCO) 7.5-325 MG tablet Take 1 tablet by mouth every 4 hours as needed for Pain Dx M50.30 120 tablet 0 ??? HYDROcodone-acetaminophen (NORCO) 7.5-325 MG tablet Take 1 tablet by mouth every 4 hours as needed for Pain Dx M50.30 120 tablet 0 ??? sildenafil (REVATIO) 20 MG tablet TAKE 3- 5 TABLETS prn sex 100 tablet 11 No facility-administered medications prior to visit. PFSH, other pertinent history: Allergies Allergen Reactions ??? Perry Inhibitors Cough ??? Zithromax [Azithromycin] Itching Social History Smoking status: Current Every Day Smoker Packs/day: 1.50 Years: 25.00 Last attempt to quit: 12/07/2010 Smokeless tobacco: Never Used Alcohol use: Yes 0.0 standard drinks/week Comment: social Drug use: No Sexual activity: Not on file Family History Problem Relation Name Age of Onset ??? Cancer - Lung Mother EXAM BP 146/92 Pulse 80 Temp 98.6 ??F (37 ??C) Ht 1.803 m (5' 11 ) Wt 119.3 kg (263 lb) SpO2 97% BMI 36.68 kg/m?? General appearance - WM wearing mask, no distress Neck- Supple and carotids have no bruits Chest - CTA Heart - normal rate, regular rhythm, normal S1, S2, no m/r/c/g Back -has about 50% ROM and pain noted with motion. SLR is neg Ext-no pretibial or pedal edema Skin- no visible rashes Depression: PHQ-2:TOTAL POINT SCORE: 0 PHQ-9: ASSESSMENT: ICD-10-CM 1. Degeneration of lumbar or lumbosacral intervertebral disc M51.37 AMB REFERRAL TO PHYSICAL THERAPY 2. Smoker F17.200 3. Elevated blood pressure reading R03.0 PLAN: Orders Placed This Encounter ??? AMB REFERRAL TO PHYSICAL THERAPY Standing Status: Future Standing Expiration Date: 08/31/2021 Referral Type: PT/OT/ST Referral Reason: Specialty Services Required Referral Location: [facility] (HOSP) Number of Visits Requested: 1 ??? HYDROcodone-acetaminophen (NORCO) 5-325 MG tablet Sig: Take 1 tablet by mouth every 4 hours as needed for Pain Dx M50.30 Dispense: 120 tablet Refill: 0 The patient has 3 separate Rx; 2 post dated as allowed by law. 3 Mo of RX do NOT DELETE ??? HYDROcodone-acetaminophen (NORCO) 7.5-325 MG tablet Sig: Take 1 tablet by mouth every 4 hours as needed for Pain Dx M50.30 Dispense: 120 tablet Refill: 0 The patient has 3 separate Rx; 2 post dated as allowed by law. 3 Mo of RX do NOT DELETE ??? HYDROcodone-acetaminophen (NORCO) 7.5-325 MG tablet Sig: Take 1 tablet by mouth every 4 hours as needed for Pain Dx M50.30 Dispense: 120 tablet Refill: 0 Goals ? ? Blood Pressure < 140/90 ??? Quit smoking / using tobacco Medications Discontinued During This Encounter Medication Reason ??? HYDROcodone-acetaminophen (NORCO) 5-325 MG tablet Reorder ??? HYDROcodone-acetaminophen (NORCO) 7.5-325 MG tablet Reorder ??? HYDROcodone-acetaminophen (NORCO) 7.5-325 MG tablet Reorder Current Outpatient Medications Medication Sig Dispense Refill ??? albuterol HFA (PROVENTIL;VENTOLIN;PROAIR) 108 (90 Base) MCG/ACT inhaler INHALE 2 PUFFS BY MOUTHEVERY 4 HOURS NEEDED FOR SHORTNESS OF BREATH, WHEEZING OR COUGH 8.5 Inhaler 3 ??? [START ON 10/18/2020] HYDROcodone-acetaminophen (NORCO) 5-325 MG tablet Take 1 tablet by mouth every 4 hours as needed for Pain Dx M50.30 120 tablet 0 ??? [START ON 09/27/2020] HYDROcodone-acetaminophen (NORCO) 7.5-325 MG tablet Take 1 tablet by mouth every 4 hours as needed for Pain Dx M50.30 120 tablet 0 ??? HYDROcodone-acetaminophen (NORCO) 7.5-325 MG tablet Take 1 tablet by mouth every 4 hours as needed for Pain Dx M50.30 120 tablet 0 ??? sildenafil (REVATIO) 20 MG tablet TAKE 3- 5 TABLETS prn sex 100 tablet 11 No current facility-administered medications for this visit. Recommend he quit smoking Refilled pain medicine for 90 days norco 7.5 Mg for 90 days Ordered physical therapy Elevated blood pressure -patient was diagnosed with hypertension awhile back he lost a bunch of weight on did his metabolic syndrome for which work and have to get labs on him soon but he did not want to do at this time. His blood pressure readings came down to near normal But they always run borderline high he is always in the 140/90 range. Gets he quit smoking it could improve went over lifestyle changes again with him in depth continue all other treatment as is Safe use and storage of controlled meds reviewed with pt again today SE of meds discussed with patient and best way to take medication. All questions answered. Return to office in 3 months. Patient instructed to call with any concerns or problems. ITE PROVIDER documented in this encounter Plan of Treatment Not on file documented as of this encounter Goals Goal Patient Goal Type Associated Problems Recent Progress Patient-Stated? Author Blood Pressure < 140/90 Blood Pressure 172/93(2022 8:59 AM CDT) No Zachary Moreno Quit smoking / using tobacco Lifestyle No Puja Raymundo documented as of this encounter Visit Diagnoses Diagnosis Degeneration of lumbar or lumbosacral intervertebral disc- Primary Smoker Tobacco use disorder Elevated blood pressure reading Elevated blood pressure reading without diagnosis of hypertension documented in this encounter Care Teams Web Site Admin Relationship Specialty Start Date End Date Alf Khan DO PCP - General Family Medicine 09/03/13 02/27/23 documented as of this encounter
--- OUTSIDE RECORDS SUMMARY | 2024-09-06 20:27 | XMS_ITS | Encounter Summary ---
Author Organization [facility] Address [address] [address] Care Team Providers Care Child Welfare Worker Name Role Phone Alf Khan DO Primary Care Provider Stephan rosa Reason for Visit * Reason Comments Refill Request Encounter Details Date Type Department Care Team (Late st Contact Info) Description 12/12/2021 Refill [facility] - Family Medicine [address] [place] [address] Alf Khan, DO Refill Request Social History Tobacco Use Types Packs/Day Years Used Date Smoking Tobacco: Every Day Cigarettes 1.5 25 Started: 12/07/1985; Last attempted to quit: 12/07/2010 Smokeless Tobacco: Never Alcohol Use Standard Drinks/Week Comments Yes 0 (1 standard drink = 0.6 oz pur e alcohol) social PHQ-2 Answer Date Recorded PHQ2 TOTAL SCORE 0 10/26/2021 Sex and Gender Information Value Date Recorded Sex Assigned at Male 08/31/2020 7:44 AM LAWYER CRIMINAL Gender Identity Male 08/31/2020 7:44 AM LAWYER CRIMINAL Sexual Orientation Straight 08/31/2020 7: 44 AM LAWYER CRIMINAL documented as of this encounter Functional Status [...] encounter Miscellaneous Notes * Telephone Encounter - Puja Raymundo - 12/12/2021 2:22 PM CDT Requested Prescriptions Pending Prescriptions Disp Refills ??? albuterol HFA (PROVENTIL; VENTOLIN; PROAIR) 108 (90 Base) MCG/ACT inhaler [Pharmacy Med Name: ALBUTEROL HFA (PROAIR) INHALER] 1 Sig: INHALE 2 PUFFS BY MOUTH EVERY 4 HOURS NEEDED FOR SHORTNESS OF BREATH, WHEEZING OR COUGH MARTÍNEZ 10/26/21 documented in this encounter Plan of Treatment Not on file documented as of this encounter Goals Goal Patient Goal Type Associated Problems Recent Progress Patient-Stated? Author Blood Pressure < 140/90 Blood Pressure 172/93(2022 8:59 AM CDT) No Zachary Moreno Quit smoking / using tobacco Lifestyle No Puja Raymundo documented as of this encounter Visit Diagnoses Not on filedocumented in this encounter Care Teams Child Welfare Worker Relationship Specialty Start Date End Date Alf Khan DO PCP - General Family Medicine 09/03/13 02/27/23 documented as of this encounter
--- OUTSIDE RECORDS SUMMARY | 2024-09-06 20:27 | XMS_ITS | Encounter Summary ---
Author Organization [facility] Address [address] [place] [address] Care Team Providers Care Media Arts Professor Name Role Phone Alf Khan DO Primary Care Provider Stephan rosa Reason for Visit * Reason Onset Date Comments Future Appointment 07/13/2021 Encounter Details Date Type Department Care Team (Late st Contact Info) Description 07/13/2021 Telephone [facility] - Family Medicine [address] [place] [address] Alf Khan, DO Future Appointment Social History Tobacco Use Types Packs/Day Years Used Date Smoking Tobacco: Every Day Cigarettes 1.5 25 Started: 12/07/1985; Last attempted to quit: 12/07/2010 Smokeless Tobacco: Never Alcohol Use Standard Drinks/Week Comments Yes 0 (1 standard drink = 0.6 oz pur e alcohol) social Sex and Gender Information Value Date Recorded Sex Assigned at Male 08/31/2020 7:44 AM TIEING 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 Gender Identity Male 08/31/2020 7:44 AM TIEING 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 Sexual Orientation Straight 08/31/2020 7: 44 AM TIEING 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 COVID-19 Exposure Response Date Recorded In the last month, have you been in contact with someone who was confirmed or suspected to have Coronavirus / COVID-19? No / Unsure 07/13/2021 9:06 AM TIEING 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 documented as of this encounter Functional Status [...] encounter Miscellaneous Notes * Telephone Encounter - Irma Duranshemar Wyatt - 07/13/2021 2:54 PM CST Irma phone rang and then went to busy signal. NG 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 * Telephone Encounter - Jazmin Santana - 07/13/2021 9:10 AM CST Who is calling? self What is the reason for call? Patient would like to know if he can be seen by PCP today and patient needs a DR note for work Expected Response from the Clinic? ( ex. Call back, etc..) please advise. NG 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 documented in this encounter Plan of Treatment Not on file documented as of this encounter Goals Goal Patient Goal Type Associated Problems Recent Progress Patient-Stated? Author Blood Pressure < 140/90 Blood Pressure 172/93(2022 8:59 AM CDT) No Zachary Moreno Quit smoking / using tobacco Lifestyle No Puja Raymundo documented as of this encounter Visit Diagnoses Not on filedocumented in this encounter Care Teams Media Arts Professor Relationship Specialty Start Date End Date Alf Khan DO PCP - General Family Medicine 09/03/13 02/27/23 documented as of this encounter
--- OUTSIDE RECORDS SUMMARY | 2024-09-06 20:27 | XMS_ITS | Encounter Summary ---
Author Organization [facility] Address [address] [place] [address] Care Team Providers Care Ambulatory Analyst Name Role Phone Alf Khan DO Primary Care Provider Stephan rosa Encounter Details Date Type Department Care Team (Latest Contact Info) Description 08/17/2020 Travel Social History Tobacco Use Types Packs/Day Years Used Date Smoking Tobacco: Every Day Cigarettes 1.5 25 Started: 12/07/1985; Last attempted to quit: 12/07/2010 Smokeless Tobacco: Never Alcohol Use Standard Drinks/Week Comments Yes 0 (1 standard drink = 0.6 oz pur e alcohol) social Sex and Gender Information Value Date Recorded Sex Assigned at Male 08/31/2020 7:44 AM MUSIC COMPOSER Gender Identity Male 08/31/2020 7:44 AM MUSIC COMPOSER Sexual Orientation Straight 08/31/2020 7: 44 AM MUSIC COMPOSER COVID-19 Exposure Response Date Recorded In the last month, have you been in contact with someone who was confirmed or suspected to have Coronavirus / COVID-19? No / Unsure 08/17/2020 2:54 PM MUSIC COMPOSER documented as of this encounter Functional Status [...] on filedocumented in this encounter Care Teams Ambulatory Analyst Relationship Specialty Start Date End Date Alf Khan DO PCP - General Family Medicine 09/03/13 02/27/23 documented as of this encounter
--- OUTSIDE RECORDS SUMMARY | 2024-09-06 20:27 | XMS_ITS | Encounter Summary ---
Author Organization [facility] Address [address] [place] [address] Care Team Providers Care Application Development Intern Name Role Phone Pcp, Tatum Pérez Primary Care Provider Unav ailable Reason for Visit * Reason Comments Pain Buttocks 57 YOM A&Ox4 ambulat ory to triage with cyst in my rectum/buttock area. Patient reports swelling/pain to area since Saturday causing difficulty ambulating. Denies fevers/chills. 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 Please take all the antibiotic as directed. Please call and schedule appointment with Dr. Tejada as soon as possible. Please follow up with your primary care provider (or specialist as directed in these instructions) for further evaluation and management. If you do not have a primary provider, please call to arrange follow up appointment. Return to the Emergency Department if you experience any new or worsening symptoms. documented in this encounter Medications at Time of Discharge Medication Sig Dispensed Refills Start Date End Date albuterol HFA (Proventil; Ventolin; Proair) 108 (90 Base) MCG/ACT inhaler TAKE 2 PUFFS BY MOUTH EVERY 4 HOURS NEEDED 8.5 g 01/23/2023 HYDROcodone-acetaminoph en ([place]) 5-325 MG tabletIndications:Chron ic pain syndrome Take 1 (one) tablet by mouth every 4 hours as needed for Pain Dx M50.30 120 tablet 02/03/2023 HYDROcodone-acetaminoph en ([place]) 7.5-325 MG tabletIndications:Chron ic pain syndrome Take 1 (one) tablet by mouth every 4 hours as needed for Pain Dx M50.30 120 tablet 01/07/2023 HYDROcodone-acetaminoph en ([place]) 7.5-325 MG tabletIndications:Chron ic pain syndrome Take 1 (one) tablet by mouth every 4 hours as needed for Pain Dx M50.30 120 tablet 12/12/2022 ketorolac (Toradol) 10 MG tablet Take 1 (one) tablet by mouth every 6 hours as needed for Pain 15 tablet 03/15/2023 losartan (Cozaar) 100 MG tablet Take 1 (one) tablet by mouth once daily 90 tablet 1 12/12/2022 ciprofloxacin (Cipro) 500 MG tablet Take 1 (one) tablet by mouth 2 times daily for 7 days 14 tablet 03/15/2023 03/22/2023 metroNIDAZOLE (Flagyl) 500 MG tablet Take 1 (one) tablet by mouth 3 times daily for 7 days 21 tablet 03/15/2023 03/22/2023 documented as of this encounter ED Notes * Earline Calix RN - 03/15/2023 9:47 AM CDT Discharge instructions reviewed with patient. Stressed importance of taking medication as prescribed. Stressed importance of scheduling and attending follow-up appointment with PCP as included in discharge paperwork. Opportunity for questions provided. patient expressed understanding of discharge in structions. No distress noted in patient at time of discharge and departure from ED. * Aria Cerrato PA-C - 03/15/2023 9:10 AM CDT EMERGENCY DEPARTMENT RAPID MEDICAL EXAM (RME) NOTE 03/15/2023 CC: Pain Buttocks (57 YOM A&Ox4 ambulatory to triage with cyst in my rectum/buttock area. Patient reports swelling/pain to area since Saturday causing difficulty ambulating. Denies fevers/chills.) Provider in Triage HPI: Trenton Crockett is a 57 year old male who presents through triage with: Cyst/abscesss in rectum area x 3 days. Patient states he initially thought he had a hemorrhoid, butbelieves he now has a cyst or an abscess as it has been growing. States having to have a similar problem surgically removed in the past however states that was not in his anal area, this was over 5 years ago. 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 Reports only mild relief with warm bath, prep H, ibuprofen. Past medical history includes hypertension. Allergy to azithromycin. Denies fevers, chills, chest pain, shortness of breath, abdominal pain, nausea, vomiting, fatigue, bleeding or drainage from area. Review of Systems: Primary Systems Noted in HPI Limited Chart History: Past Medical History: Diagnosis Date ??? GERD (gastroesophageal reflux disease) controlled ??? Motion sickness ??? Pure hypercholesterolemia ??? Snoring no c-pap ??? Unspecified essential hypertension Past Surgical History: Procedure Laterality Date ??? COLONOSCOPY WITH POLYPECTOMY 04/15/2014 Dr Rios ??? HERNIA REPAIR, VENTRAL 06/03/2012 ??? INCISION AND DRAINAGE 09/05/2017 PERIRECTAL ABSCESS ??? INCISION AND DRAINAGE Right 09/05/2017 Right; INCISION AND DRAINAGE ABSCESS PERIRECTAL ??? Independence Tooth Extraction Current Facility-Administered Medications Medication Dose Route Frequency Provider Last Rate Last Admin ??? acetaminophen (Tylenol) tablet 650 mg 650 mg Oral Now Kamini Cerratoil, PA-C ??? ibuprofen (Motrin) tablet 600 mg 600 mg Oral Now Kamini Cerratoil, PA-C Current Outpatient Medications Medication Sig Dispense Refill ??? albuterol HFA (Proventil; Ventolin; Proair) 108 (90 Base) MCG/ACT inhaler TAKE 2 PUFFS BY MOUTHEVERY 4 HOURS NEEDED 8.5 g 0 ??? ciprofloxacin (Cipro) 500 MG tablet Take 1 (one) tablet by mouth 2 times daily for 7 days 14 tablet 0 ??? HYDROcodone-acetaminophen ([place]) 5-325 MG tablet Take 1 (one) tablet by mouth every 4 hours asneeded for Pain Dx M50.30 120 tablet 0 ??? HYDROcodone-acetaminophen ([place]) 7.5-325 MG tablet Take 1 (one) tablet by mouth every 4 hours as needed for Pain Dx M50.30 120 tablet 0 ??? HYDROcodone-acetaminophen ([place]) 7.5-325 MG tablet Take 1 (one) tablet by mouth every 4 hours as needed for Pain Dx M50.30 120 tablet 0 ??? ketorolac (Toradol) 10 MG tablet Take 1 (one) tablet by mouth every 6 hours as needed for Pain 15 tablet 0 ??? losartan (Cozaar) 100 MG tablet Take 1 (one) tablet by mouth once daily 90 tablet 1 ??? metroNIDAZOLE (Flagyl) 500 MG tablet Take 1 (one) tablet by mouth 3 times daily for 7 days 21 tablet 0 Allergies Allergen Reactions ??? Zithromax [Azithromycin] Itching ??? Perry Inhibitors Cough PCP: [facility] Vital Signs: BP 172/93 Pulse 102 Temp 98.1 ??F (36.7 ??C) (Tympanic) Resp 20 Ht 1.82 m (5' 11.65 ) Wt 117.9 kg (260 lb) SpO2 97% Pertinent Physical Exam Findings: Constitutional: vitals stable, generally well appearing, in no acute distress, ambulatory Head: Head normocephalic, atraumatic Eyes: Conjunctiva clear ENT: No rhinorrhea Neck: Neck supple, full ROM intact Resp: Respirations even and unlabored CV: Acyanotic appearing, RRR ABD: Nondistended MSK: No gross deformities noted Skin: [place], warm, dry, no rash visualized. Neuro: A&O x 3, CN intact, no focal deficits Psych: Normal affect Rectal: Chaperoned by Earline PEÑA, perirectal indurated abscess at 2-4oclock position with erythema extending approximately 2 inch margin onto right buttock, no drainage or bleeding LABORATORY STUDIES: Labs Reviewed - No data to display IMAGING STUDIES: No results found. PROCEDURES: Procedures Clinical Impressions as of 03/15/23 0942 Perirectal abscess Cellulitis and abscess of buttock ASSESSMENT/MDM/PLAN: This is an 57 year old male with PMH of HTN presenting to the ED with perirectal abscess. Patient appears to have a perirectal abscess at the 2 to 4 o'clock position with extending cellulitis towardshis right buttock. Given location patient would benefit from surgical drainage, incision and drainage considered but not done to avoid damaging sphincters an anorectal muscles. Referral given to Dr. Tejdaa, for surgical evaluation. Will prescribe antibiotic, discussed return precautions including not limited to fevers, chills, malaise, worsening pain. Vital signs stable, no systemic symptoms. Interventions given in the ED Tylenol and ibuprofen, responded well. Assessment and Plan: - Rx Flagyl and ciprofloxacin, Rx Toradol - Continue with warm Sitz bath - Follow-up with Dr. Tejada - Discussed plan to discharge with patient, discussed return precautions and importance of follow up with primary provider for continued management. Patient verbalized understanding and agreed with this plan Prior records if available: Reviewed by me SPO2 interpretation: 97% Patient reassessment: See details in ED course. 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 Shared decision making performed with patient regarding disposition. Impression: Encounter Diagnoses Name Primary? Perirectal abscess ??? Cellulitis and abscess of buttock New Medications: New Prescriptions CIPROFLOXACIN (CIPRO) 500 MG TABLET Take 1 (one) tablet by mouth 2 times daily for 7 days KETOROLAC (TORADOL) 10 MG TABLET Take 1 (one) tablet by mouth every 6 hours as needed for Pain METRONIDAZOLE (FLAGYL) 500 MG TABLET Take 1 (one) tablet by mouth 3 times daily for 7 days I have advised the patient to follow-up with: [facility] Emergency Department [address] [address] [place] [address] [address] Schedule an appointment as soon as possible for a visit The risks, benefits, and side effects of any high risk medications given and prescribed were discussed with the patient throughout the visit today as needed. Risks and benefits of imaging modalities (including but not limited to: radiation exposure, sensitivity/specificity/limitations) utilized during the visit were also discussed with the patient as deemed necessary. Patient capacity evaluated. Disposition: Discharge Aria Cerrato PA-C Emergency Medicine 03/15/2023 documented in this encounter Miscellaneous Notes * Clinical References Aria Verdin PA-C - 03/15/2023 9:27 AM CDT [id number] Perianal Abscess, Antibiotic Treatment Glands near the anus can become blocked. This can lead to infection. If the infection can't drain, a collection of pus called an abscess may form. Symptoms of an abscess include anal or rectal pain, itching, swelling, and fever. Frequently the abscess results in a fistula, which is an abnormal connection between the abscess and the skin where pus drains. A fistula may sometimes be seen on exam and may need other testing and treatments. Your healthcare provider will likely drain the abscess. In some cases, they will also prescribe antibiotics. People with artificial valves, diabetes, weak immune systems, and certain other conditionsalways need antibiotics. Home care ?? Abscesses are almost always drained. Follow any instructions from your provider about care of the incision site. ?? If you are prescribed antibiotics, take them exactly as prescribed. Take all of the antibiotic medicine as prescribed. Continue it even if you start feeling better. Finish all of the medicine unless your healthcare provider tells you to stop. ?? Try sitz baths. Sit in a tub filled with about 6 inches of hot water for 15 to 30 minutes. Test the water temperature before sitting down to make sure it won't burn you. Repeat this twice a day until pain is relieved. ?? Unless a pain medicine has been prescribed, you may take an [id number]-oys-cesxysb medicine, such as ibuprofen, for pain. ?? Passing stools may be painful. If so, ask your healthcare provider about using a stool-softener for a short time. It's also helpful to slowly add fiber to your diet or take a fiber supplement. Follow-up care Follow up with your healthcare provider as advised. When to get medical advice Call your healthcare provider right away if any of these occur: ?? Increasing pain, swelling, or redness ?? Pus draining from the abscess ?? Fever of 100.4??F (38??C) or higher that continues for a day after starting antibiotics, or as directed by your healthcare provider ?? Other symptoms, such as rectal bleeding, belly pain, or chronic diarrhea. Your provider will evaluate if the abscess may be a sign of other health conditions. ?? Symptoms get worse, or you have new symptoms Last Reviewed Date: 2022 ?? [id number] The [employer]. All rights reserved. This information is not intended as a substitute for professional medical care. Always follow your healthcare professional's instructions. documented in this encounter Plan of Treatment Not on file documented as of this encounter Goals Goal Patient Goal Type Associated Problems Recent Progress Patient-Stated? Author Blood Pressure < 140/90 Blood Pressure 172/93(2022 8:59 AM CDT) No Zachary Moreno Quit smoking / using tobacco Lifestyle No Puja Raymundo R documented as of this encounter Visit Diagnoses Diagnosis Perirectal abscess Abscess of anal and rectal regions Cellulitis and abscess of buttock documented in this encounter Administered Medications Inactive Administered Medications - up to 3 most recent administrations Medication Order MAR Action Action Date Dose Rate Site acetaminophen (Tylenol) tablet 650 mg 650 mg, Oral, NOW, 1 dose, On Sat03/15/23 at 0930, Patient preference for lesser PRN pain meds may be honored when the patient requests a less strong medication, a lower dose, or a less intrusive route of administration when the lesser drug, dose and route have been ordered for the patient. This patient request must be documented in the MAR. $ Given 03/15/2023 9:44 AM CDT 650 mg ibuprofen (Motrin) tablet 600 mg 600 mg, Oral, NOW, 1 dose, On Sat03/15/23 at 0930, Maximum allowable amount = 3200 mg / 24 hours. Patient preference for lesser PRN pain meds may be honored when the patient requests a less strong medication, a lower dose, or a less intrusive route of administration when the lesser drug, dose and route have been ordered for the patient. This patient request must be documented in the MAR. $ Given 03/15/2023 9:44 AM CDT 600 mg documented in this encounter Active and Recently Administered Medications Times are shown in CDT. Scheduled Medication Order 03/13/2023 03/14/2023 03/15/2023 acetaminophen (Tylenol) tablet 650 mg (COMPLETED) 650 mg, Oral, NOW, 1 dose, On Sat03/15/23 at 0930, Patient preference for lesser PRN pain meds may be honored when the patient requests a less strong medication, a lower dose, or a less intrusive route of administration when the lesser drug, dose and route have been ordered for the patient. This patient request must be documented in the 943 ($ Given - Prov ider: Earline Calix RN) ibuprofen (Motrin) tablet 600 mg (COMPLETED) 600 mg, Oral, NOW, 1 dose, On Sat03/15/23 at 0930, Maximum allowable amount = 3200 mg / 24 hours. Patient preference for lesser PRN pain meds may be honored when the patient requests a less strong medication, a lower dose, or a less intrusive route of administration when the lesser drug, dose and route have been ordered for the patient. This patient request must be documented in the 943 ($ Given - Prov ider: Earline Calix RN) documented in this encounter Care Teams Application Development Intern Relationship Specialty Start Date End Date Pcp, Tatum Pérez PCP - General 02/28/23 documented as of this encounter
--- OUTSIDE RECORDS SUMMARY | 2024-09-06 20:27 | XMS_ITS | Encounter Summary ---
Author Organization [facility] Address [address] [place] [address] Care Team Providers Care Inventory Representative Name Role Phone Alf Khan DO Primary Care Provider Stephan rosa Reason for Visit * Reason Comments Pain Managment Pt follow up to ongo ing back pain and med refill DRUG SCREEN Yearly screen Encounter Details Date Type Department Care Team (Latest Contact Info) Description 09/19/2022 1:30 PM WEALTH MANAGEMENT ADVISOR Office Visit [facility] - Family Medicine [address] [place] [address] Alf Khan DO Chronic pain syndrome (Primary Dx); Impacted cerumen of left ear; Primary hypertension; Smoker; Mixed hyperlipidemia; Degeneration of lumbar or lumbosacral intervertebral disc; Degeneration of cervical intervertebral disc; Mild intermittent asthma without complication (HCC) Social History Tobacco Use Types Packs/Day Years Used Date Smoking Tobacco: Every Day Cigarettes 1.5 25 Started: 12/07/1985; Last attempted to quit: 12/07/2010 Smokeless Tobacco: Never Tobacco Cessation:Ready to Q uit: Not Asked; Counseling Given: Not Answered Alcohol Use Standard Drinks/Week Comments Yes 0 (1 standard drink = 0.6 oz pur e alcohol) social PHQ-2 Answer Date Recorded PHQ2 TOTAL SCORE 0 09/19/2022 Sex and Gender Information Value Date Recorded Sex Assigned at Male 08/31/2020 7:44 AM WEALTH MANAGEMENT ADVISOR Gender Identity Male 08/31/2020 7:44 AM WEALTH MANAGEMENT ADVISOR Sexual Orientation Straight 08/31/2020 7: 44 AM WEALTH MANAGEMENT ADVISOR documented as of this encounter Last Filed Vital Signs Vital Sign Reading Time Taken Comments Blood Pressure 158/94 09/19/2022 1:45 PM WEALTH MANAGEMENT ADVISOR Pulse 74 09/19/2022 1:24 PM WEALTH MANAGEMENT ADVISOR Temperature 36.5 ??C (97.7 ??F) 09/19/2022 1:24 PM CS T Respiratory Rate - - Oxygen Saturation 97% 09/19/2022 1:24 PM WEALTH MANAGEMENT ADVISOR Inhaled Oxygen Concentration - - Weight 117.5 kg (259 lb) 09/19/2022 1:24 PM WEALTH MANAGEMENT ADVISOR Height 180.3 cm (5' 11 ) 09/19/2022 1:24 PM WEALTH MANAGEMENT ADVISOR Body Mass Index 36.12 09/19/2022 1:24 PM WEALTH MANAGEMENT ADVISOR documented in this encounter Functional Status Functional [...] Progress Notes * Alf Khan, DO - 09/19/2022 1:39 PM CST Office Visit, Established Patient, [id number] HISTORY: SYDNEE Trenton Crockett is a 56 year old male patient, here for: Chief Complaint Patient presents with ??? Pain Managment Pt follow up to ongoing back pain and med refill ??? DRUG SCREEN Yearly screen HPI: Chronic pain- patient said he hurts everywhere and he is run out of pain pills a few days early. 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 So he is home and he is able take his pain meds. 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 He does not take them so they last longer. He said he has probably been taking about 5- 6 a day because he is taking them like every 4 hours juarez offer because he said he is hurting badly. He said that without them hewould be fairly sedentary if he gets up and he is hurting that bad he cannot accomplish anything without sitting bedtime because the pain is too severe. He said with pain medicine he keep his pain inthe moderate range if it is nighttime and he is being still or laying down and can get to mild. Says without pain medicine he could not be nearly as functional as he has an accomplish things when he is off work. He has no side effects pain pills will get urine drug screen today Hearing left ear feels clogged-she has put ear wax remover and tried to suck the wax out with a suction ball I do not know exactly when he dad is here needs to be irrigated probably BP-definitely has hypertension again patient is agreeable to taking losartan as he cannot tolerate Perry inhibitors he gets a rash with them BP Readings from Last 3 Encounters: 09/19/22 158/94 06/27/22 146/96 04/12/22 138/89 Lipid panel is been ordered encouraged him to go get this done as soon as possible. Has lots of excuses but on 1 hands tell he has been off work almost whole last month Recent Labs Component Name 01/09/21 1044 04/08/17 1055 04/05/14 1540 CHOL 190 165 172 TRIG 338* 177* 393* HDL 28* 47 34* VLDL 58* 35* 79* LDLCALC 104* 83 59 The 10-year ASCVD risk score (Shira GARCIA, et al., 2019) is: 26.8% Values used to calculate the score: Age: 56 years Sex: Male Is Non- : No Diabetic: No Tobacco smoker: Yes Systolic Blood Pressure: 158 mmHg Is BP treated: Yes HDL Cholesterol: 28 mg/dL Total Cholesterol: 190 mg/dL Smokes 1 ppd and he is not interested in quitting. Counseled the patient on smoking cessation, Chantix, [id number] nicotine replacement systems patches and gums. Told them the risks of smoking include lung cancer, bladder cancer, COPD, mi and stroke. They have to be involved in the smoking cessation program or it will not succeed. In other words I cannot make someone quit smoking they have to want to quit smoking. I can give you Chantix and advice on the [id number] nicotine systems and I would suggest to attempt to quit smoking as soon as you can. Spent 3-5 minutes explaining thisto the patient and answering questions no CP [...] Ventolin; Proair) 108 (90 Base) MCG/ACT inhaler INHALE 2 PUFFS BY MOUTH EVERY 4 HOURS NEEDED 18 g 3 ??? HYDROcodone-acetaminophen ([place]) 5-325 MG tablet Take 1 (one) tablet by mouth every 4 hours asneeded for Pain Dx M50.30 120 tablet 0 ??? HYDROcodone-acetaminophen ([place]) 7.5-325 MG tablet Take 1 (one) tablet by mouth every 4 hours as needed for Pain Dx M50.30 120 tablet 0 ??? HYDROcodone-acetaminophen ([place]) 7.5-325 MG tablet Take 1 (one) tablet by mouth every 4 hours as needed for Pain Dx M50.30 120 tablet 0 No facility-administered medications prior to visit. PFSH, other pertinent history: Allergies Allergen Reactions ??? Zithromax [Azithromycin] Itching ??? Perry Inhibitors Cough Social History Smoking status: Every Day Packs/day: 1.50 Years: 25.00 Types: Cigarettes Last attempt to quit: 12/07/2010 Smokeless tobacco: Never Alcohol use: Yes 0.0 standard drinks/week Comment: social Drug use: No Sexual activity: Not on file Family History Problem Relation Name Age of Onset ??? Cancer - Lung Mother EXAM BP 158/94 Pulse 74 Temp 97.7 ??F (36.5 ??C) Ht 1.803 m (5' 11 ) Wt 117.5 kg (259 lb) [id number]% BMI 36.12 kg/m?? General appearance - WM, wearing mask, no distress Neck- Supple and carotids have no bruits Chest - CTA Heart - normal rate, regular rhythm, normal S1, S2, no m/r/c/g Ext-no pretibial or pedal edema Skin-laceration on skull is healed completely Depression: PHQ-2:PHQ2 TOTAL SCORE: 0 PHQ-9: ASSESSMENT: ICD-10-CM 1. Chronic pain syndrome G89.4 HYDROcodone-acetaminophen ([place]) 5-325 MG tablet HYDROcodone-acetaminophen ([place]) 7.5-325 MG tablet HYDROcodone-acetaminophen ([place]) 7.5-325 MG tablet 2. Impacted cerumen of left ear H61.22 NC REMOVE CERUMEN IMPACTED W INSTRUMENT UNI 3. Primary hypertension I10 4. Smoker F17.200 5. Mixed hyperlipidemia E78.2 6. Degeneration of lumbar or lumbosacral intervertebral disc M51.37 7. Degeneration of cervical intervertebral disc M50.30 PLAN: Orders Placed This Encounter ??? NC REMOVE CERUMEN IMPACTED W INSTRUMENT UNI ??? HYDROcodone-acetaminophen ([place]) 5-325 MG tablet Sig: Take 1 (one) tablet by mouth every 4 hours as needed for Pain Dx M50.30 Dispense: 120 tablet Refill: 0 ??? HYDROcodone-acetaminophen ([place]) 7.5-325 MG tablet Sig: Take 1 (one) tablet by mouth every 4 hours as needed for Pain Dx M50.30 Dispense: 120 tablet Refill: 0 ??? HYDROcodone-acetaminophen ([place]) 7.5-325 MG tablet Sig: Take 1 (one) tablet by mouth every 4 hours as needed for Pain Dx M50.30 Dispense: 120 tablet Refill: 0 ??? losartan (Cozaar) 50 MG tablet Sig: Take 1 (one) tablet by mouth once daily Dispense: 100 tablet Refill: 4 Goals ? ? Blood Pressure < 140/90 ??? Quit smoking / using tobacco Medications Discontinued During This Encounter Medication Reason ??? HYDROcodone-acetaminophen ([place]) 5-325 MG tablet No Pharm No AVS ??? HYDROcodone-acetaminophen ([place]) 7.5-325 MG tablet No Pharm No AVS ??? HYDROcodone-acetaminophen ([place]) 7.5-325 MG tablet No Pharm No AVS Current Outpatient Medications Medication Sig Dispense Refill ??? albuterol HFA (Proventil; Ventolin; Proair) 108 (90 Base) MCG/ACT inhaler INHALE 2 PUFFS BY MOUTH EVERY 4 HOURS NEEDED 18 g 3 ??? [START ON 11/09/2022] HYDROcodone-acetaminophen ([place]) 5-325 MG tablet Take 1 (one) tablet by mouth every 4 hours as needed for Pain Dx M50.30 120 tablet 0 ??? [START ON 10/16/2022] HYDROcodone-acetaminophen ([place]) 7.5-325 MG tablet Take 1 (one) tablet bymouth every 4 hours as needed for Pain Dx M50.30 120 tablet 0 ??? HYDROcodone-acetaminophen ([place]) 7.5-325 MG tablet Take 1 (one) tablet by mouth every 4 hours as needed for Pain Dx M50.30 120 tablet 0 ??? losartan (Cozaar) 50 MG tablet Take 1 (one) tablet by mouth once daily 100 tablet 4 No current facility-administered medications for this visit. Cerumen impaction was observed. Symptoms include blockage from left ear. An ear irrigation was performed on Left ear(s). Irrigation proved to be beneficial in clearing a large amount of cerumen. Cerumen removed with irrigation. Patient tolerated procedure well. Ear canal is now visible and clear after the procedure. The procedure lasted 5 minutes. Instructions for home care to prevent wax buildup are given. Essential hypertension-losartin 50 mg qd Recommend he quit smoking Refilled pain medicine for 90 days norco 7.5 mg for 90 days. Urine drug screen obtained today Hypertension-patient's blood pressure is at the hypertensive reading 2 visit Neuro patient will take losartan so will start this. Told him that he definitely has hypertension. He is not treating withlifestyle anymore and he should quit smoking. This would help Continue all other treatment per orders Safe use and storage of controlled meds reviewed with pt again today SE of meds discussed with patient and best way to take medication. All questions answered. eturn to office in 3 months. Patient instructed to call with any concerns or problems. TH MANAGEMENT ADVISOR documented in this encounter Plan of Treatment Not on file documented as of this encounter Goals Goal Patient Goal Type Associated Problems Recent Progress Patient-Stated? Author Blood Pressure < 140/90 Blood Pressure 172/93(2022 8:59 AM CDT) No Zachary Moreno Quit smoking / using tobacco Lifestyle No Puja Raymundo documented as of this encounter Visit Diagnoses Diagnosis Chronic pain syndrome- Primary Impacted cerumen of left ear Impacted cerumen Primary hypertension Unspecified essential hypertension Smoker Tobacco use disorder Mixed hyperlipidemia Degeneration of lumbar or lumbosacral intervertebral disc Degeneration of cervical intervertebral disc Mild intermittent asthma without complication (HCC) Unspecified asthma documented in this encounter Care Teams Inventory Representative Relationship Specialty Start Date End Date Alf Khan DO PCP - General Family Medicine 09/03/13 02/27/23 documented as of this encounter
--- OUTSIDE RECORDS SUMMARY | 2024-09-06 20:27 | XMS_ITS | Encounter Summary ---
Author Organization [facility] Health Address [address] [place] [address] Care Team Providers Care Grinder Brake Lining Name Role Phone Alf Khan DO Primary Care Provider Stephan rosa Reason for Visit * Reason Onset Date Comments MEDICATION REFILL 02/04/2023 Encounter Details Date Type Department Care Team (Late st Contact Info) Description 02/04/2023 Refill [facility] - Family Medicine [address] [place] [address] Alf Khan, DO MEDICATION REFILL Social History [...] Sex Assigned at Male 08/31/2020 7:44 AM FABRIC WORKER LEADER Gender Identity Male 08/31/2020 7:44 AM FABRIC WORKER LEADER Sexual Orientation Straight 08/31/2020 7: 44 AM FABRIC WORKER LEADER documented as of this encounter Functional Status [...] encounter Miscellaneous Notes * Telephone Encounter - Kylie Burroughs RN - 02/04/2023 1:31 PM CDT Attempted to contact patient since significant other is not on HIPAA form. Unable to leave message that prescription is not able to be transferred to new pharmacy. Originating prescriber no longer a provider at this location. Voicemail not set up. * Telephone Encounter - Kylie Burroughs RN - 02/04/2023 1:30 PM CDT Irma Raymundo contacted regarding patient's [place]. Not on HIPAA. States that patient's medication is not available at original pharmacy that prescription was originally sent to. * Telephone Encounter - Deisi Duran - 02/04/2023 9:26 AM CDT Previous pharmacy does not have 02/03/23 script in stock. New pharmacy uploaded. documented in this encounter Plan of Treatment Not on file documented as of this encounter Goals Goal Patient Goal Type Associated Problems Recent Progress Patient-Stated? Author Blood Pressure < 140/90 Blood Pressure 172/93(2022 8:59 AM CDT) No Zachary Moreno Quit smoking / using tobacco Lifestyle No Puja Raymundo documented as of this encounter Visit Diagnoses Diagnosis Chronic pain syndrome documented in this encounter Care Teams Grinder Brake Lining Relationship Specialty Start Date End Date Alf Khan DO PCP - General Family Medicine 09/03/13 02/27/23 documented as of this encounter
--- OUTSIDE RECORDS SUMMARY | 2024-09-06 20:27 | XMS_ITS | Encounter Summary ---
Author Organization [facility] Address [address] [place] [address] Care Team Providers Care Hospital Fellow Name Role Phone Alf Khan DO Primary Care Provider Stephan rosa Reason for Visit * Reason Comments Pain Back pt for ongoing back paiun and med refill Medication Check pharmacy confirmed w ith pt Encounter Details Date Type Department Care Team (Latest Contact Info) Description 11/22/2020 3:15 PM CDT Office Visit [facility] - Family Medicine [address] [place] [address] Alf Khan DO Annual physical exam (Primary Dx); Degeneration of lumbar or lumbosacral intervertebral disc; Smoker; Elevated blood pressure reading; Thoracic spine pain; Mixed hyperlipidemia; Decreased libido without sexual dysfunction; Glucose intolerance; BMI 36.0-36.9,adult; Pain medication agreement; Tubular adenoma Social History Tobacco Use Types Packs/Day Years Used Date Smoking Tobacco: Every Day Cigarettes 1.5 25 Started: 12/07/1985; Last attempted to quit: 12/07/2010 Smokeless Tobacco: Never Alcohol Use Standard Drinks/Week Comments Yes 0 (1 standard drink = 0.6 oz pur e alcohol) social Sex and Gender Information Value Date Recorded Sex Assigned at Male 08/31/2020 7:44 AM MERCHANDISE CARRIER Gender Identity Male 08/31/2020 7:44 AM MERCHANDISE CARRIER Sexual Orientation Straight 08/31/2020 7: 44 AM MERCHANDISE CARRIER COVID-19 Exposure Response Date Recorded In the last month, have you been in contact with someone who was confirmed or suspected to have Coronavirus / COVID-19? No / Unsure 10/31/2020 12:31 PM MERCHANDISE CARRIER documented as of this encounter Last Filed Vital Signs Vital Sign Reading Time Taken Comments Blood Pressure 138/84 11/22/2020 3:46 PM CDT Pulse 92 11/22/2020 3:17 PM CDT Temperature 36.5 ??C (97.7 ??F) 11/22/2020 3:17 PM CD T Respiratory Rate - - Oxygen Saturation 98% 11/22/2020 3:17 PM CDT Inhaled Oxygen Concentration - - Weight 120.2 kg (265 lb) 11/22/2020 3:17 PM CDT Height 180.3 cm (5' 11 ) 11/22/2020 3:17 PM CDT Body Mass Index 36.96 11/22/2020 3:17 PM CDT documented in this encounter Functional [...] Progress Notes * Alf Khan, DO - 01/10/2021 8:09 AM CDT His glucose is elevated 144. His A1c was in the glucose intolerance range at 6.1. Still at pre diabetes or glucose intolerance levels with blood sugar Cholesterol is good at 190 with an LDL of 104. 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 He has an elevated cardiac risk assessment score of 18 percent which means he is over 2 times is likely have heart attack or stroke in the next 10 years and alow potency statin is recommended is part of the treatment will he take 1? Also low- fat diet exercise weight loss if needed Vitamin-D is low 20.7 normal is 30-100. Should take ypht-hqs-rsimwuv vitamin-D 1000 units daily andget 15 min sun on nice days PSA is elevated 4.5. Normal is less than 4. We should recheck this in 6 months he can see a urologist if he would like but they will tell him to get prostate biopsies. We can just check this in 6 months and see if it is going up or down does he have any urinary symptoms? Frequently peeing burning when he urinates Etc Testosterone is low at 211 the range is 264-916. With an elevated PSA treating this with testosterone is not indicated until we know what is going on with his prostate The 10-year ASCVD risk score (Carlos Eduardo BOYLE Jr., et al., 2013) is: 18% Values used to calculate the score: Age: 55 years Sex: Male Is Non- : No Diabetic: No Tobacco smoker: Yes Systolic Blood Pressure: 138 mmHg Is BP treated: No HDL Cholesterol: 28 mg/dL Total Cholesterol: 190 mg/dL * Alf Khan DO - 11/22/2020 3:39 PM CDT Office Visit, Established Patient, [id number] HISTORY: CC Trenton Crockett is a 54 year old male patient, here for: Chief Complaint Patient presents with ??? Pain Back pt for ongoing back paiun and med refill ??? Medication Check pharmacy confirmed with pt HPI: Needs annual physical today new line has chronic low back pain he said [...] to do an MRI in the future Lumbar spine 5 views ?? Indication: Low [...] acute osseous abnormality Degenerative changes His BP Is elevated we 1st admitted him it was good on recheck with laying down on the table when I came in the room he has some sort of elevated blood pressure not to the level of hypertension currently BP Readings from Last 3 Encounters: 11/22/20 138/84 08/31/20 146/92 06/01/20 144/88 weight is up 14 lb recommend weight loss Wt Readings from Last 3 Encounters: 11/22/20 120.2 kg (265 lb) 08/31/20 119.3 kg (263 lb) 06/01/20 114.3 kg (252 lb) Smokes 1 ppd and he is not interested in quitting and Counseled the patient on smoking cessation, Chantix, ydpj-lhd-xdirhed nicotine replacement systems patches and gums. Told them the risks of smoking include lung cancer, bladder cancer, COPD, mi and stroke. They have to be involved in the smokingcessation program or it will not succeed. In other words I cannot make someone quit smoking they have to want to quit smoking. I can give you Chantix and advice on the zucz-war-vfpkxep nicotine systems and I would suggest to attempt to quit smoking as soon as you can. Spent 3-5 minutes explaining this to the patient and answering questions no CP or SOB and the remainder of a 10 point ROS was all normal, unless in note or problem list Patient Active Problem List Diagnosis Date Noted [...] ??? Cancer - Lung Mother EXAM BP 138/84 Pulse 92 Temp 97.7 ??F (36.5 ??C) Ht 1.803 m (5' 11 ) Wt 120.2 kg (265 lb) [id number]% BMI 36.96 kg/m?? General appearance - WM wearing mask, [...] POINT SCORE: 0 PHQ-9: ASSESSMENT: ICD-10-CM 1. Annual physical exam Z00.00 CBC WITH DIFFERENTIAL COMPREHENSIVE METABOLIC PANEL LIPID PROFILE VITAMIN D 25-HYDROXY URINALYSIS NO MICROSCOPIC NO CULTURE PROSTATE SPECIFIC ANTIGEN SCREEN TSH 2. Degeneration of lumbar or lumbosacral intervertebral disc M51.37 3. Smoker F17.200 4. Elevated blood pressure reading R03.0 5. Thoracic spine pain M54.6 6. Mixed hyperlipidemia E78.2 7. Decreased libido without sexual dysfunction R68.82 TESTOSTERONE TOTAL 8. Glucose intolerance E74.39 HEMOGLOBIN A1C 9. BMI 36.0-36.9,adult Z68.36 10. Pain medication agreement Z02.89 DRUG SCREEN URINE PANEL 9 11. Tubular adenoma D36.9 AMB REFERRAL TO GASTROENTEROLOGY PLAN: Orders Placed This Encounter ??? CBC WITH DIFFERENTIAL Order Specific Question: Release to patient Answer: Immediate ??? COMPREHENSIVE METABOLIC PANEL Order Specific Question: Release to patient Answer: Immediate ??? LIPID PROFILE Order Specific Question: Release to patient Answer: Immediate ??? VITAMIN D 25-HYDROXY Order Specific Question: Release to patient Answer: Immediate ??? URINALYSIS NO MICROSCOPIC NO CULTURE Order Specific Question: Release to patient Answer: Immediate ??? PROSTATE SPECIFIC ANTIGEN SCREEN Order Specific Question: Release to patient Answer: Immediate ??? TSH Order Specific Question: Release to patient Answer: Immediate ??? HEMOGLOBIN A1C Order Specific Question: Release to patient Answer: Immediate ??? TESTOSTERONE TOTAL Order Specific Question: Release to patient Answer: Immediate ??? DRUG SCREEN URINE PANEL 9 Order Specific Question: Release to patient Answer: Immediate ??? AMB REFERRAL TO GASTROENTEROLOGY Standing Status: Future Standing Expiration Date: 11/22/2021 Referral Priority: Routine Referral Type: Evaluate & Treat Referral Reason: Specialty Services Required Referred to Provider: Ramiro Cruz, DO Number of Visits Requested: 1 ??? HYDROcodone-acetaminophen [...] COUGH 8.5 Inhaler 3 ??? [START ON 01/14/2021] HYDROcodone-acetaminophen (NORCO) 5-325 MG tablet Take 1 (one) tablet by mouth every 4 hours as needed for Pain Dx M50.30 120 tablet 0 ??? [START ON 12/19/2020] HYDROcodone-acetaminophen (NORCO) 7.5-325 MG tablet Take 1 [...] days norco 7.5 Mg for 90 days Labs for Px continue all other treatment as is Safe [...] Blood Pressure 172/93(2022 8:59 AM CDT) No Zachray Moreno Quit smoking / using tobacco Lifestyle No Puja Raymundo documented as of this encounter Procedures Procedure Name Priority Date/Time Associated Diagnosis Comments DRUG SCREEN URINE PANEL 9 Routine 01/09/2021 10:45 AM CDT Pain medication agreement OPIATES URINE CONFIRMATION Routine 01/09/2021 10:45 AM CDT Pain medication agreement URINALYSIS NO MICROSCOPIC NO CULTURE Routine 01/09/2021 10:45 AM CDT Annual physical exam TESTOSTERONE TOTAL Routine 01/09/2021 10 :45 AM CDT Decreased libido without sexual dysfunction HEMOGLOBIN A1C Routine 01/09/2021 10:45 AM CDT Glucose intolerance TSH Routine 01/09/2021 10:45 AM CDT Annual physical exam VITAMIN D 25-HYDROXY Routine 01/09/2021 10:44 AM CDT Annual physical exam CBC W AUTO DIFFERENTIAL Routine 01/09/2021 10:44 AM CDT Annual physical exam COMPREHENSIVE METABOLIC PANEL Routine 01/09/2021 10:44 AM CDT Annual physical exam PROSTATE SPECIFIC ANTIGEN SCREEN Routine 01/09/2021 10:44 AM CDT Annual physical exam LIPID PROFILE Routine 01/09/2021 10:44 AM CDT Annual physical exam documented in this encounter Results * OPIATES URINE CONFIRMATION (01/09/2021 10:45 AM CDT) Opiates Negative Ejebed=[id number] [facility] ACCOUNT BILL Comment: Opiate test includes Codeine and Morphine only. FASTING 01/09/2021 10:4 5 AM CDT 01/09/2021 Narrative Resulting Agency Comment Lab Testing performed at: [facility] [place] [address] ??[place] [id number] Alf Khan DO LAB - URINE CHEMISTR Y ORDERABLES [facility] ACCOUNT BILL [address] [place] [address] * DRUG SCREEN URINE PANEL 9 (01/09/2021 [...] Resulting Agency Comment Lab Testing performed at: [facility] [address] [place] [id number] Alf Khan DO LAB - URINE CHEMISTR Y ORDERABLES [facility] ACCOUNT BILL [address] [place] [address] * (ABNORMAL) TESTOSTERONE TOTAL (01/09/2021 10:45 AM CDT) Testosterone 211(L) 264 - 916 ng/dL [facility] ACCOUNT BILL Comment: Adult male reference interval is based on a population of healthy nonobese males (BMI <30) between 19 and 39 years old. Catherine et.al. JCEM 2017,102;2082-4618. PMID: [id number]. ? Please note reference interval change FASTING Blood BLOOD SPECIMEN / Unknown 01/09/2021 10:45 AM CDT 01/09/2021 Narrative Resulting Agency Comment Lab Testing performed at: [facility] [address] ??Critical access hospital [id number] Alf Khan DO LAB - CHEMISTRY LIZABETH WILEY Performing Organization Address [facility] Co de Phone Number [facility] ACCOUNT BILL [address] [place] [address] * (ABNORMAL) HEMOGLOBIN A1C (01/09/2021 10:45 AM CDT) Hemoglobin A1c 6.1(H) 4.8 - 5.6 % [facility] ACCOUNT BILL Comment: ? . ? Prediabetes: 5.7 - 6.4 ? Diabetes: >6.4 ? Glycemic control for adults with diabetes: <7.0 FASTING Blood BLOOD SPECIMEN / Unknown 01/09/2021 10:45 AM CDT 01/09/2021 Narrative Resulting Agency Comment Lab Testing performed at: [facility] [address] ??Critical access hospital [id number] Alf Khan DO LAB - CHEMISTRY LIZABETH WILEY Performing Organization Address City/[facility]/ZIP Co de Phone Number [facility] ACCOUNT BILL [address] [place] [address] * TSH (01/09/2021 10:45 AM CDT) Pathologist [facility] TSH 1.590 0.450 - 4.500 uIU/mL [facility] ACCOUNT BILL Comment:FASTING Blood BLOOD SPECIMEN / Unknown 01/09/2021 10:45 AM CDT 01/09/2021 Narrative Resulting Agency Comment Lab Testing performed at: [facility] [address] ??Critical access hospital [id number] Alf Khan DO LAB - CHEMISTRY ORDE RABRAMON Performing Organization Address [facility] Co de Phone Number [facility] ACCOUNT BILL [address] [place] [address] * (ABNORMAL) URINALYSIS NO MICROSCOPIC NO CULTURE (01/09/2021 10:45 AM CDT) Specific [place] UA 1.029 1.005 - 1.030 [facility] ACCOUNT [...] Agency Comment Lab Testing performed at: [facility] [address] ??Critical access hospital [id number] Alf Khan DO LAB - URINALYSIS ORD ERABLES Performing Organization Address [facility] de Phone Number [facility] ACCOUNT BILL [address] [place] [address] * (ABNORMAL) PROSTATE SPECIFIC ANTIGEN SCREEN (01/09/2021 10:44 AM CDT) PSA 4.5(H) 0.0 - 4.0 ng/mL [facility] ACCOUNT BILL Comment: Brenda ECLIA methodology. ? . According to the [place] [employer], Serum PSA should decrease and [...] Resulting Agency Comment Lab Testing performed at: [address] ??Critical access hospital [id number] Alf Khan DO LAB - CHEMISTRY LIZABETH WILEY [facility] ACCOUNT BILL [address] [place] [address] * (ABNORMAL) VITAMIN D 25-HYDROXY (01/09/2021 10:44 AM CDT) Vitamin D, 25 Hydroxy 20.7(L) 30.0 - 100.0 ng/mL [facility] ACCOUNT BILL Comment: Vitamin D deficiency has been defined by the [place] of Medicine and an Endocrine Society practice guideline as a level of serum 25-OH vitamin D less than 20 ng/mL (1,2). The Endocrine Society went on to further define vitamin D insufficiency as a level between 21 and 29 ng/mL (2). 1. IOM ([place] of [employer]). 2010. Dietary reference ?? intakes for calcium and D. [place]: The ?? National AcademStorie Press. 2. Lynda MF, Nikolai NC, Hernandez CHOPRA, et al. ?? Evaluation, treatment, and prevention of vitamin D ?? deficiency: an Endocrine Society clinical practice ?? guideline. JCEM. 2010; 96(7):1911-30. FASTING Blood BLOOD SPECIMEN / Unknown 01/09/2021 10:44 AM CDT 01/09/2021 Narrative Resulting Agency Comment Lab Testing performed at: [facility] [address] ??[place] [phone] Alf Khan DO LAB - CHEMISTRY ORDEcho WILEY Performing Organization Address [facility] Co de Phone Number [facility] ACCOUNT BILL [address] [place] [address] * (ABNORMAL) LIPID PROFILE (01/09/2021 10:44 AM [...] Resulting Agency Comment Lab Testing performed at: [facility] ??Critical access hospital [id number] Alf Khan DO LAB - CHEMISTRY LIZABETH WILEY Performing Organization Address [facility] de Phone Number [facility] ACCOUNT BILL [address] [place] [address] * (ABNORMAL) COMPREHENSIVE METABOLIC PANEL (01/09/2021 10:44 [...] Resulting Agency Comment Lab Testing performed at: [address] ??Critical access hospital [id number] Alf Khan DO LAB - CHEMISTRY ELIZAE INEZ [facility] ACCOUNT BILL [address] [place] [address] * (ABNORMAL) CBC WITH DIFFERENTIAL (01/09/2021 10:44 AM CDT) WBC 11.4(H) 3.4 - 10.8 x10E3/uL [facility] [...] Resulting Agency Comment [facility] [address] [facility] ??Critical access hospital [id number] Alf Khan DO LAB - HEMATOLOGY ORD ERABLES [facility] ACCOUNT BILL [address] [place] [address] documented in this encounter Visit Diagnoses Diagnosis Annual physical exam- Primary Routine general medical examination at a health care facility Degeneration of lumbar or lumbosacral intervertebral disc Smoker Tobacco use disorder Elevated blood pressure reading Elevated blood pressure reading without diagnosis of hypertension Thoracic spine pain Pain in thoracic spine Mixed hyperlipidemia Decreased libido without sexual dysfunction Decreased libido Glucose intolerance BMI 36.0-36.9,adult Body Mass Index 36.0-36.9, adult Pain medication agreement Encounter for long-term (current) use of other medications Tubular adenoma Benign neoplasm of unspecified site documented in this encounter Care Teams Hospital Fellow Relationship Specialty Start Date End Date Alf Khan DO PCP - General Family Medicine 09/03/13 02/27/23 documented as of this encounter
--- OUTSIDE RECORDS SUMMARY | 2024-09-06 20:27 | XMS_ITS | Encounter Summary ---
Author Organization [facility] Address [address] [place] [address] Care Team Providers Care Audiovisual Librarian Name Role Phone Alf Khan DO Primary Care Provider Stephan rosa Reason for Visit * Reason Comments Refill Request Encounter Details Date Type Department Care Team (Late st Contact Info) Description 02/13/2022 Refill [facility] - Family Medicine [address] [place] [address] Alf Khan, DO Refill Request Social History [...] Sex Assigned at Male 08/31/2020 7:44 AM DELI CUTTER SLICER Gender Identity Male 08/31/2020 7:44 AM DELI CUTTER SLICER Sexual Orientation Straight 08/31/2020 7: 44 AM DELI CUTTER SLICER documented as of this encounter Functional Status [...] * Telephone Encounter - Puja Raymundo - 02/13/2022 10:05 AM CDT Requested Prescriptions Pending Prescriptions Disp Refills ??? albuterol HFA (PROVENTIL; VENTOLIN; PROAIR) 108 (90 Base) MCG/ACT inhaler [Pharmacy Med Name: ALBUTEROL HFA (PROAIR) INHALER] 1 Sig: INHALE 2 PUFFS BY MOUTH EVERY 4 HOURS NEEDED FOR SHORTNESS OF BREATH, WHEEZING OR COUGH MARTÍNEZ 01/18/22 documented in this encounter Plan of Treatment Not on file documented as of this encounter Goals Goal Patient Goal Type Associated Problems Recent Progress Patient-Stated? Author Blood Pressure < 140/90 Blood Pressure 172/93(2022 8:59 AM CDT) No Zachary Moreno Quit smoking / using tobacco Lifestyle No Puja Raymundo documented as of this encounter Visit Diagnoses Not on filedocumented in this encounter Care Teams Audiovisual Librarian Relationship Specialty Start Date End Date Alf Khan DO PCP - General Family Medicine 09/03/13 02/27/23 documented as of this encounter
--- OUTSIDE RECORDS SUMMARY | 2024-09-06 20:27 | XMS_ITS | Encounter Summary ---
Author Organization [facility] Health Address [address] [place] [address] Care Team Providers Care Building Custodial Supervisor Name Role Phone Alf Khan DO Primary Care Provider Stephan rosa Reason for Visit * Reason Comments Refill Request Encounter Details Date Type Department Care Team (Late st Contact Info) Description 10/17/2020 Refill [facility] - Family Medicine [address] [place] [address] Alf Khan, DO Refill Request Social History Tobacco Use Types Packs/Day Years Used Date Smoking Tobacco: Every Day Cigarettes 1.5 25 Started: 12/07/1985; Last attempted to quit: 12/07/2010 Smokeless Tobacco: Never Alcohol Use Standard Drinks/Week Comments Yes 0 (1 standard drink = 0.6 oz pur e alcohol) social Sex and Gender Information Value Date Recorded Sex Assigned at Male 08/31/2020 7:44 AM ADMINISTRATIVE OPERATIONS COORDINATOR Gender Identity Male 08/31/2020 7:44 AM ADMINISTRATIVE OPERATIONS COORDINATOR Sexual Orientation Straight 08/31/2020 7: 44 AM ADMINISTRATIVE OPERATIONS COORDINATOR documented as of this encounter Functional Status [...] * Telephone Encounter - Puja Raymundo - 10/17/2020 9:26 AM CST Requested Prescriptions Pending Prescriptions Disp Refills ??? albuterol HFA (PROVENTIL;VENTOLIN;PROAIR) 108 (90 Base) MCG/ACT inhaler [Pharmacy Med Name: ALBUTEROL HFA (PROAIR) INHALER] 8.5 Inhaler 3 Sig: INHALE 2 PUFFS BY MOUTH EVERY 4 HOURS NEEDED FOR SHORTNESS OF BREATH, WHEEZING OR COUGH MARTÍNEZ 08/31/20 NISTRATIVE OPERATIONS COORDINATOR documented in this encounter Plan of Treatment Not on file documented as of this encounter Goals Goal Patient Goal Type Associated Problems Recent Progress Patient-Stated? Author Blood Pressure < 140/90 Blood Pressure 172/93(2022 8:59 AM CDT) Zachary Funez Quit smoking / using tobacco Lifestyle No Puja Raymundo documented as of this encounter Visit Diagnoses Not on filedocumented in this encounter Care Teams Building Custodial Supervisor Relationship Specialty Start Date End Date Alf Khan DO PCP - General Family Medicine 09/03/13 02/27/23 documented as of this encounter
--- OUTSIDE RECORDS SUMMARY | 2024-09-06 20:27 | XMS_ITS | Encounter Summary ---
Author Organization [facility] Address [address] [place] [address] Care Team Providers Care Granular Operator Name Role Phone Alf Khan DO Primary Care Provider Stephan rosa Reason for Visit * Reason Comments Pain Managment Pt follow up to ongo ing back pain and med refills Encounter Details Date Type Department Care Team (Latest Contact Info) Description 12/12/2022 3:30 PM CDT Office Visit [facility] - Family Medicine [address] [place] [address] Alf Khan DO Mixed hyperlipidemia (Primary Dx); Chronic pain syndrome; Primary hypertension; Smoker; Degeneration of lumbar or lumbosacral intervertebral disc; HTN (hypertension), benign Social History Tobacco Use Types Packs/Day Years [...] Sex Assigned at Male 08/31/2020 7:44 AM EMR SPECIALIST Gender Identity Male 08/31/2020 7:44 AM EMR SPECIALIST Sexual Orientation Straight 08/31/2020 7: 44 AM EMR SPECIALIST documented as of this encounter Last Filed Vital Signs Vital Sign Reading Time Taken Comments Blood Pressure 146/88 12/12/2022 3:37 PM CDT Pulse 74 12/12/2022 3:15 PM CDT Temperature 36.6 ??C (97.9 ??F) 12/12/2022 3:15 PM CD T Respiratory Rate - - Oxygen Saturation 98% 12/12/2022 3:15 PM CDT Inhaled Oxygen Concentration - - Weight 118.4 kg (261 lb) 12/12/2022 3:15 PM CDT Height 180.3 cm (5' 11 ) 12/12/2022 3:15 PM CDT Body Mass Index 36.4 12/12/2022 3:15 PM CDT documented in this encounter Functional [...] Progress Notes * Alf Khan, DO - 12/12/2022 3:30 PM CDT Office Visit, Established Patient, [id number] HISTORY: CC Trenton Crockett is a 57 year old male patient, here for: Chief Complaint Patient presents with ??? Pain Managment Pt follow up to ongoing back pain and med refills HPI: Chronic pain- discussed his last drug screen showed no pain medicine and high months I will call. Told not alcohol pain pills do not max and he should not be drinking if he is going to take pain pills. He said he is out of pain pills and was trying to manage the pain by drinking and I told my understood but when he has pain pills he should not mix alcohol with that. He says he understands. No side effects to pain pills when he takes them. He says he does not have them he does not feel like doing much and he is in a lot of pain. He has no side effects with them. He is able to at least get up and be functional and not suffer and pain. His drug screen showed no illicit drugs, alcohol and he did not have his pain pills in his system because he was out for several days prior to coming in BP is high again. Will increase losartan to 100 mg told patient start taking to when he has will see what his blood pressure doing next visit BP Readings from Last 3 Encounters: 12/12/22 146/88 09/19/22 158/94 06/27/22 146/96 Lipid panel is been ordered encouraged him [...] score (Shira GARCIA, et al., 2019) is: 24.6% Values used to calculate the score: Age: 57 years Sex: Male Is Non- : No Diabetic: No Tobacco smoker: Yes Systolic Blood Pressure: 146 mmHg Is BP treated: Yes HDL Cholesterol: 28 mg/dL Total Cholesterol: 190 mg/dL Smokes 1 ppd and he is not interested in quitting. Counseled the patient on smoking cessation, Chantix, [id number]-zwnuwde nicotine replacement systems patches and gums. Told them the risks of smoking include lung cancer, bladder cancer, COPD, mi and stroke. They have to be involved in the smoking cessation program or it will not succeed. In other words I cannot make someone quit smoking they have to want to quit smoking. I can give you Chantix and advice on the kddy-snh-jvywlof nicotine systems and I would suggest to [...] HOURS NEEDED 18 g 3 ??? HYDROcodone-acetaminophen ([place]) 5-325 MG tablet Take 1 (one) tablet by mouth every 4 hours asneeded for Pain Dx M50.30 120 tablet 0 ??? HYDROcodone-acetaminophen ([place]) 7.5-325 MG tablet Take 1 (one) tablet by mouth every 4 hours as needed for Pain Dx M50.30 120 tablet 0 ??? HYDROcodone-acetaminophen ([place]) 7.5-325 MG tablet Take 1 (one) tablet by mouth every 4 hours as needed for Pain Dx M50.30 120 tablet 0 ??? losartan (Cozaar) 50 MG tablet Take 1 (one) tablet by mouth once daily 100 tablet 4 No facility-administered medications prior to visit. PFSH, [...] ??? Cancer - Lung Mother EXAM BP 146/88 Pulse 74 Temp 97.9 ??F (36.6 ??C) Ht 1.803 m (5' 11 ) Wt 118.4 kg (261 lb) [id number]% BMI 36.40 kg/m?? General appearance - WM, wearing mask, no distress Neck- Supple and carotids have no bruits Chest - CTA Heart - normal rate, regular rhythm, normal S1, S2, no m/r/c/g Ext-no pretibial or pedal edema Skin-laceration on skull is healed completely Depression: PHQ-2:PHQ2 TOTAL SCORE: 0 PHQ-9: ASSESSMENT: ICD-10-CM 1. Mixed hyperlipidemia E78.2 COMPREHENSIVE METABOLIC PANEL LIPID PROFILE 2. Chronic pain syndrome G89.4 HYDROcodone-acetaminophen ([place]) 5-325 MG tablet HYDROcodone-acetaminophen ([place]) 7.5-325 MG tablet HYDROcodone-acetaminophen ([place]) 7.5-325 MG tablet 3. Primary hypertension I10 PLAN: Orders Placed This Encounter ??? COMPREHENSIVE METABOLIC PANEL Order Specific Question: Release to patient Answer: Immediate ??? LIPID PROFILE Order Specific Question: Release to patient Answer: Immediate ??? HYDROcodone-acetaminophen ([place]) 5-325 MG tablet Sig: Take 1 (one) tablet by mouth every 4 hours as needed for Pain Dx M50.30 Dispense: 120 tablet Refill: 0 ??? HYDROcodone-acetaminophen ([place]) 7.5-325 MG tablet Sig: Take 1 (one) tablet by mouth every 4 hours as needed for Pain Dx M50.30 Dispense: 120 tablet Refill: 0 ??? HYDROcodone-acetaminophen ([place]) 7.5-325 MG tablet Sig: Take 1 (one) tablet by mouth every 4 hours as needed for Pain Dx M50.30 Dispense: 120 tablet Refill: 0 Goals ? ? Blood Pressure < 140/90 ??? Quit smoking / using tobacco Medications Discontinued During This Encounter Medication Reason ??? HYDROcodone-acetaminophen ([place]) 5-325 MG tablet No Pharm No AVS ??? HYDROcodone-acetaminophen ([place]) 7.5-325 MG tablet No Pharm No AVS ??? HYDROcodone-acetaminophen ([place]) 7.5-325 MG tablet No Pharm No AVS Current Outpatient Medications Medication Sig Dispense Refill ??? albuterol HFA (Proventil; Ventolin; Proair) 108 (90 Base) MCG/ACT inhaler INHALE 2 PUFFS BY MOUTH EVERY 4 HOURS NEEDED 18 g 3 ??? [START ON 02/03/2023] HYDROcodone-acetaminophen ([place]) 5-325 MG tablet Take 1 (one) tablet by mouth every 4 hours as needed for Pain Dx M50.30 120 tablet 0 ??? [START ON 01/07/2023] HYDROcodone-acetaminophen ([place]) 7.5-325 MG tablet Take 1 (one) tablet bymouth every 4 hours as needed for Pain Dx M50.30 120 tablet 0 ??? HYDROcodone-acetaminophen ([place]) 7.5-325 MG tablet Take 1 (one) tablet by mouth every 4 hours as needed for Pain Dx M50.30 120 tablet 0 ??? losartan (Cozaar) 50 MG tablet Take 1 (one) tablet by mouth once daily 100 tablet 4 No current facility-administered medications for this visit. Chronic pain-refilled patient's pain pills he has urine drug screen and pain and came in and force Hyperlipidemia-patient did not go get the labs done as requested ordered again said he will go do them. Hypertension-blood pressures been up the last 3 times creeping up it is high on recheck today so I told him we need to increase his losartan to 100 mg will check it next visit Recommend he stop smoking Continue all other treatment per orders Safe [...] Type Priority Associated Diagnoses Orde r Schedule COMPREHENSIVE METABOLIC PANEL Lab Routine Mixed hyperlipidemia Ordered: 12/12/2022 LIPID PROFILE Lab Routine Mixed hyperlipidemia Ordered: 12/12/2022 documented as of this encounter Goals Goal Patient Goal Type Associated Problems Recent Progress Patient-Stated? Author Blood Pressure < 140/90 Blood Pressure 172/93(2022 8:59 AM CDT) No Zachary Moreno Quit smoking / using tobacco Lifestyle No Puja Raymundo documented as of this encounter Visit Diagnoses Diagnosis Mixed hyperlipidemia- Primary Chronic pain syndrome Primary hypertension Unspecified essential hypertension Smoker Tobacco use disorder Degeneration of lumbar or lumbosacral intervertebral disc HTN (hypertension), benign Essential hypertension, benign documented in this encounter Care Teams Granular Operator Relationship Specialty Start Date End Date Alf Khan DO PCP - General Family Medicine 09/03/13 02/27/23 documented as of this encounter
--- OUTSIDE RECORDS SUMMARY | 2024-09-06 20:27 | XMS_ITS | Encounter Summary ---
Author Organization [facility] Address [address] [place] [address] Care Team Providers Care Colliery Clerk Name Role Phone Alf Khan DO Primary Care Provider Stephan rosa Encounter Details Date Type Department Care Team (Latest Contact Info) Description 05/17/2020 Travel Social History Tobacco Use Types Packs/Day Years Used Date Smoking Tobacco: Every Day Cigarettes 1.5 25 Started: 12/07/1985; Last attempted to quit: 12/07/2010 Smokeless Tobacco: Never Alcohol Use Standard Drinks/Week Comments Yes 0 (1 standard drink = 0.6 oz pur e alcohol) social Sex and Gender Information Value Date Recorded Sex Assigned at Male 08/31/2020 7:44 AM PIPELINE ENGINEER Gender Identity Male 08/31/2020 7:44 AM PIPELINE ENGINEER Sexual Orientation Straight 08/31/2020 7: 44 AM PIPELINE ENGINEER COVID-19 Exposure Response Date Recorded In the [...] on filedocumented in this encounter Care Teams Colliery Clerk Relationship Specialty Start Date End Date Alf Khan DO PCP - General Family Medicine 09/03/13 02/27/23 documented as of this encounter
--- OUTSIDE RECORDS SUMMARY | 2024-09-06 20:27 | XMS_ITS | Encounter Summary ---
Author Organization [facility] Address [address] [place] [address] Care Team Providers Care Supervisor Photoengraving Name Role Phone Alf Khan DO Primary Care Provider Stephan rosa Reason for Visit * Reason Onset Date Comments MEDICATION REFILL 02/14/2022 Encounter Details Date Type Department Care Team (Late st Contact Info) Description 02/14/2022 Refill [facility] - Family Medicine [address] [place] [address] Alf Khan, DO MEDICATION REFILL Social History [...] Sex Assigned at Male 08/31/2020 7:44 AM CLAIMS EXAMINER Gender Identity Male 08/31/2020 7:44 AM CLAIMS EXAMINER Sexual Orientation Straight 08/31/2020 7: 44 AM CLAIMS EXAMINER documented as of this encounter Functional Status [...] encounter Miscellaneous Notes * Telephone Encounter - Deisi Duran - 02/14/2022 3:46 PM CDT Pt informed. * Telephone Encounter - Alf Khan DO - 02/14/2022 3:14 PM CDT Patient cannot cheeks if prescription sent where every wants 1 every wants. His drugstore a call saying he is trying get this filled early all the time with drug-seeking behavior. With this kind of thing in his chart it is problematic. I am not sure with the issue is but I can not move his prescription just because he wants to move it. I do not want a KOFI investigation * Telephone Encounter - Deisi Duran - 02/14/2022 12:09 PM CDT Requested Prescriptions Pending Prescriptions Disp Refills ??? HYDROcodone-acetaminophen ([place]) 7.5-325 MG tablet 120 tablet Sig: Take 1 (one) tablet by mouth every 4 hours as needed for Pain Dx M50.30 Last refill 02/14/22 w/0 refills Last ov 01/18/22 Next ov 04/12/22 Pt would like script sent to uploaded pharmacy does not want script going to [facility]. documented in this encounter Plan of Treatment Not on file documented as of this encounter Goals Goal Patient Goal Type Associated Problems Recent Progress Patient-Stated? Author Blood Pressure < 140/90 Blood Pressure 172/93(2022 8:59 AM CDT) No Zachary Moreno Quit smoking / using tobacco Lifestyle No Puja Raymundo documented as of this encounter Visit Diagnoses Not on filedocumented in this encounter Care Teams Supervisor Photoengraving Relationship Specialty Start Date End Date Alf Khan DO PCP - General Family Medicine 09/03/13 02/27/23 documented as of this encounter
--- OUTSIDE RECORDS SUMMARY | 2024-09-06 20:27 | XMS_ITS | Encounter Summary ---
Author Organization [facility] Address [address] [place] [address] Care Team Providers Care Forestry Worker Name Role Phone Alf Khan DO Primary Care Provider Stephan rosa Reason for Visit * Reason Comments Pain Managment pt follow up to ongo ing back pain and refill Medication Check pharmacy confirmed w ith pt Encounter Details Date Type Department Care Team (Latest Contact Info) Description 05/04/2021 3:15 PM CDT Office Visit [facility] - Family Medicine [address] [place] [address] Alf Khan DO Degeneration of cervical intervertebral disc (Primary Dx); Chronic pain syndrome; Smoker; Intermittent asthma without complication, unspecified asthma severity (HCC); COVID-19 Social History Tobacco Use Types Packs/Day Years Used Date Smoking Tobacco: Every Day Cigarettes 1.5 25 Started: 12/07/1985; Last attempted to quit: 12/07/2010 Smokeless Tobacco: Never Alcohol Use Standard Drinks/Week Comments Yes 0 (1 standard drink = 0.6 oz pur e alcohol) social Sex and Gender Information Value Date Recorded Sex Assigned at Male 08/31/2020 7:44 AM WASHROOM CLEANER Gender Identity Male 08/31/2020 7:44 AM WASHROOM CLEANER Sexual Orientation Straight 08/31/2020 7: 44 AM WASHROOM CLEANER documented as of this encounter Last Filed Vital Signs Vital Sign Reading Time Taken Comments Blood Pressure 138/88 05/04/2021 3:21 PM CDT Pulse 84 05/04/2021 3:21 PM CDT Temperature 36.8 ??C (98.2 ??F) 05/04/2021 3:21 PM CD T Respiratory Rate - - Oxygen Saturation 97% 05/04/2021 3:21 PM CDT Inhaled Oxygen Concentration - - Weight 117.5 kg (259 lb) 05/04/2021 3:21 PM CDT Height 180.3 cm (5' 11 ) 05/04/2021 3:21 PM CDT Body Mass Index 36.12 05/04/2021 3:21 PM CDT documented in this encounter Functional [...] Progress Notes * Alf Khan, DO - 05/04/2021 3:43 PM CDT Office Visit, Established Patient, [id number] HISTORY: SYDNEE Doughertydominique Crockett is a 55 year old male patient, here for: Chief Complaint Patient presents with ??? Pain Managment pt follow up to ongoing back pain and refill ??? Medication Check pharmacy confirmed with pt HPI: Patient is here for medication refill Patient takes [place] for back pain. Pain is described as debilitating, occasionally burning and shooting pain, and on average is around 7-8/10. Some days it goes up to 9 and 10. Patient states medication helps with pain. No SE to Rx. Had COVID 04/25 ran a home test and then got a positive test. He said he is feeling better now and is getting ready to go back to work said that he was getting ready get the vaccine when he came down with covered his girlfriend came down with the 1st and he got a 4 days later. BP is normal today w/o Rx BP Readings from Last 3 Encounters: 05/04/21 138/88 02/14/21 142/90 11/22/20 138/84 Weight down 3 lbs. Wt Readings from Last 3 Encounters: 05/04/21 117.5 kg (259 lb) 02/14/21 118.8 kg (262 lb) 11/22/20 120.2 kg (265 lb) Discussed care with patient that it is elevated cardiac risk of 18 percent he is adverse to taking statin. I told him that if he can quit smoking his risk my come down somebody probably still going to be in the needs a statin level. He understands that he has increased risk heart attack strokes is not wish to take a statin discuss this in depth Recent Labs Component Name 01/09/21 1044 04/08/17 [...] Counseled the patient on smoking cessation, Chantix, furi-ukh-usumrse nicotine replacement systems patches and gums. Told them the risks of smoking include lung cancer, bladder cancer, COPD, mi and stroke. They have to be involved in the smokingcessation program or it will not succeed. In other words I cannot make someone quit smoking they have to want to quit smoking. I can give you Chantix and advice on the pons-yjp-dtgvowl nicotine systems and I would suggest to [...] ??? Cancer - Lung Mother EXAM BP 138/88 Pulse 84 Temp 98.2 ??F (36.8 ??C) Ht 1.803 m (5' 11 ) Wt 117.5 kg (259 lb) [id number]% BMI 36.12 kg/m?? General appearance - WM wearing mask, no distress Neck- Supple and carotids have no bruits Chest - CTA Heart - normal rate, regular rhythm, normal S1, S2, no m/r/c/g Ext-no pretibial or pedal edema Skin- no visible rashes Depression: PHQ-2: PHQ-9: ASSESSMENT: No diagnosis found. PLAN: No [...] Recommend he quit smoking Refilled pain medicine norco 7.5 Mg for 90 days I ddkwygtkxxe-peh-oia diet quit smoking and recheck cholesterol if he quit smoking. Otherwise she should recheck his cholesterol and see if he is getting an down with just diet but he has increased cardiac risk and he does not take statin understands the increased risk for heart attack stroke 2 andhalf times normal Borderline blood pressure-patient has been on blood pressure meds before the blood pressure is running high normal without the use and lifestyle control long but not quit smoking DC come down another5 or 10 points if he quit smoking continue all other treatment as is Safe [...] Quit smoking / using tobacco Lifestyle No Yi Raymundorene R documented as of this encounter Visit Diagnoses Diagnosis Degeneration of cervical intervertebral disc- Primary Chronic pain syndrome Smoker Tobacco use disorder Intermittent asthma without complication, unspecified asthma severity (HCC) COVID-19 documented in this encounter Care Teams Forestry Worker Relationship Specialty Start Date End Date Alf Khan DO PCP - General Family Medicine 09/03/13 02/27/23 documented as of this encounter
--- OUTSIDE RECORDS SUMMARY | 2024-09-06 20:27 | XMS_ITS | Encounter Summary ---
Author Organization [facility] Address [address] [place] [address] Care Team Providers Care Residential Instructor Name Role Phone Zaira Ramires DO Primary Care Provider Stephan rosa Reason for Visit * Reason Comments Pain Managment pt follow up to ongo ing back pain with refills Medication Check pharmacy confirmed w ith pt Hospital Follow-up Encounter Details Date Type Department Care Team (Latest Contact Info) Description 07/27/2021 3:30 PM HUMAN RESOURCES PSYCHOLOGIST Office Visit [facility] - Family Medicine [address] [place] [address] Zaira Ramires DO Chronic pain syndrome (Primary Dx); Smoker; Laceration of scalp, initial encounter; Postconcussion syndrome; Degeneration of lumbar or lumbosacral intervertebral disc Social History Tobacco Use Types Packs/Day Years Used Date Smoking Tobacco: Every Day Cigarettes 1.5 25 Started: 12/07/1985; Last attempted to quit: 12/07/2010 Smokeless Tobacco: Never Alcohol Use Standard Drinks/Week Comments Yes 0 (1 standard drink = 0.6 oz pur e alcohol) social Sex and Gender Information Value Date Recorded Sex Assigned at Male 08/31/2020 7:44 AM HUMAN RESOURCES PSYCHOLOGIST Gender Identity Male 08/31/2020 7:44 AM HUMAN RESOURCES PSYCHOLOGIST Sexual Orientation Straight 08/31/2020 7: 44 AM HUMAN RESOURCES PSYCHOLOGIST COVID-19 Exposure Response Date Recorded In the last month, have you been in contact with someone who was confirmed or suspected to have Coronavirus / COVID-19? No / Unsure 07/13/2021 9:06 AM HUMAN RESOURCES PSYCHOLOGIST documented as of this encounter Last Filed Vital Signs Vital Sign Reading Time Taken Comments Blood Pressure 134/84 07/27/2021 3:15 PM HUMAN RESOURCES PSYCHOLOGIST Pulse 83 07/27/2021 3:15 PM HUMAN RESOURCES PSYCHOLOGIST Temperature 36.6 ??C (97.9 ??F) 07/27/2021 3:15 PM CS T Respiratory Rate - - Oxygen Saturation 97% 07/27/2021 3:15 PM HUMAN RESOURCES PSYCHOLOGIST Inhaled Oxygen Concentration - - Weight 111.1 kg (245 lb) 07/27/2021 3:15 PM HUMAN RESOURCES PSYCHOLOGIST Height 180.3 cm (5' 11 ) 07/27/2021 3:15 PM HUMAN RESOURCES PSYCHOLOGIST Body Mass Index 34.17 07/27/2021 3:15 PM HUMAN RESOURCES PSYCHOLOGIST documented in this encounter Functional Status Functional [...] as of this encounter Progress Notes * Zaira Ramires, DO - 07/27/2021 3:25 PM CST Office Visit, Established Patient, [id number] HISTORY: SYDNEE Trenton Crockett is a 55 year old male patient, here for: Chief Complaint Patient presents with ??? Pain Managment pt follow up to ongoing back pain with refills ??? Medication Check pharmacy confirmed with pt ??? Hospital Follow-up HPI: Low mid back pain and numbness in bilateral legs. Says the pain is dull burning and numb and goes into his leg. He has gotten PT in the past, but he states that it doesn't do much for it. He states that he stretches regularly and this seems to help. He uses the pain medicine at the end of the day after work to help him rest. No SE from Rx. He also need a work release after head injury that involved 14 meera in his scalp. He hasn't noticed any drainage. He has some headaches and neck pain a few weeks ago, but these have subsided. Blood pressure is normal again today BP Readings from Last 3 Encounters: 07/27/21 134/84 07/17/21 130/80 07/13/21 165/88 Smokes 1 ppd and he is not interested in quitting and Counseled the patient on smoking cessation, Chantix, kxnj-znu-tzrizbb nicotine replacement systems patches and gums. Told them the risks of smoking include lung cancer, bladder cancer, COPD, mi and stroke. They have to be involved in the smokingcessation program or it will not succeed. In other words I cannot make someone quit smoking they have to want to quit smoking. I can give you Chantix and advice on the xhue-ksy-eovlxti nicotine systems and I would suggest to [...] Wheezing or Cough 8.5 g 2 ??? snmlhujesc-ppqysprluqkly-gysxrgft (FIORICET) 50-300-40 MG capsule Take 1 (one) [...] ??? Cancer - Lung Mother EXAM BP 134/84 Pulse 83 Temp 97.9 ??F (36.6 ??C) Ht 1.803 m (5' 11 ) Wt 111.1 kg (245 lb) ZzE753% BMI 34.17 kg/m?? General appearance - WM, wearing mask, no distress Neck- Supple and carotids have no bruits Chest - CTA Heart - normal rate, regular rhythm, normal S1, S2, no m/r/c/g Ext-no pretibial or pedal edema Skin-laceration on skull is healed completely Depression: PHQ-2:PHQ2 TOTAL SCORE: 0 PHQ-9: ASSESSMENT: ICD-10-CM 1. Chronic pain syndrome G89.4 2. Smoker F17.200 3. Laceration of scalp, initial encounter S01.01XA 4. Postconcussion syndrome F07.81 5. Degeneration of lumbar or lumbosacral intervertebral disc M51.37 PLAN: Orders Placed This Encounter ??? HYDROcodone-acetaminophen [...] This Encounter Medication Reason ??? HYDROcodone-acetaminophen (NORCO) 7.5-325 MG tablet No Pharm No AVS ??? HYDROcodone-acetaminophen (NORCO) 5-325 MG tablet No Pharm No AVS ??? HYDROcodone-acetaminophen (NORCO) 7.5-325 MG tablet No Pharm No AVS Current Outpatient Medications Medication Sig Dispense Refill ??? albuterol HFA (PROVENTIL;VENTOLIN;PROAIR) 108 (90 Base) MCG/ACT inhaler Inhale 2 (two) puffs bymouth every 4 hours as needed for Shortness of Breath, Wheezing or Cough 8.5 g 2 ??? neiobueapf-uclmyndwzbpwk-hxidwtdn (FIORICET) 50-300-40 MG capsule Take 1 (one) capsule by mouthevery 4 hours as needed for Headache 20 capsule 0 ??? [START ON 09/18/2021] HYDROcodone-acetaminophen (NORCO) 5-325 MG tablet Take 1 (one) tablet by mouth every 4 hours as needed for Pain Dx M50.30 120 tablet 0 ??? [START ON 08/22/2021] HYDROcodone-acetaminophen (NORCO) 7.5-325 MG tablet Take 1 [...] No current facility-administered medications for this visit. release to work tomorrow from head injury, postconcussion syndrome and laceration on skull from being hit with a concrete aj Recommend he quit smoking Refilled pain medicine for 90 days norco 7.5 Mg for 90 days Continue other management per previous documentation Safe use and storage of controlled meds reviewed with pt again today SE of meds discussed with patient and best way to take medication. All questions answered. Return to office in 3 months. Patient instructed to call with any concerns or problems. N RESOURCES PSYCHOLOGIST documented in this encounter Miscellaneous Notes * Addendum Note - Zaira Ramires DO - 07/27/2021 4:15 PM CSTAddended by: ZAIRA RAMIRES on: 07/27/2021 04:15 PM Modules accepted: Orders N RESOURCES PSYCHOLOGIST documented in this encounter Plan of Treatment Not on file documented as of this encounter Goals Goal Patient Goal Type Associated Problems Recent Progress Patient-Stated? Author Blood Pressure < 140/90 Blood Pressure 172/93(2022 8:59 AM CDT) Zachary Funez Quit smoking / using tobacco Lifestyle No Puja Raymundo documented as of this encounter Visit Diagnoses Diagnosis Chronic pain syndrome- Primary Smoker Tobacco use disorder Laceration of scalp, initial encounter Postconcussion syndrome Degeneration of lumbar or lumbosacral intervertebral disc documented in this encounter Care Teams Residential Instructor Relationship Specialty Start Date End Date Zaira Ramires DO PCP - General Family Medicine 09/03/13 02/27/23 documented as of this encounter
--- OUTSIDE RECORDS SUMMARY | 2024-09-06 20:27 | XMS_ITS | Encounter Summary ---
Author Organization [facility] Health Address [address] [place] [address] Care Team Providers Care Medical Insurance Claims Specialist Name Role Phone Alf Khan DO Primary Care Provider Stephan rosa Reason for Visit * Reason Onset Date Comments MEDICATION REFILL 05/25/2021 Encounter Details Date Type Department Care Team (Late st Contact Info) Description 05/25/2021 Refill [facility] - Family Medicine [address] [place] [address] Alf Khan, DO MEDICATION REFILL Social History Tobacco Use Types Packs/Day Years Used Date Smoking Tobacco: Every Day Cigarettes 1.5 25 Started: 12/07/1985; Last attempted to quit: 12/07/2010 Smokeless Tobacco: Never Alcohol Use Standard Drinks/Week Comments Yes 0 (1 standard drink = 0.6 oz pur e alcohol) social Sex and Gender Information Value Date Recorded Sex Assigned at Male 08/31/2020 7:44 AM REPLACER Gender Identity Male 08/31/2020 7:44 AM REPLACER Sexual Orientation Straight 08/31/2020 7: 44 AM REPLACER documented as of this encounter Functional Status [...] encounter Miscellaneous Notes * Telephone Encounter - Juan Jose Smith - 05/25/2021 2:49 PM CDT Trenton Crockett Requested Prescriptions Pending Prescriptions Disp Refills ??? albuterol HFA (PROVENTIL;VENTOLIN;PROAIR) 108 (90 Base) MCG/ACT inhaler Sig: Inhale 2 (two) puffs by mouth every 4 hours as needed for Shortness of Breath, Wheezing or Cough Allergies Allergen Reactions ??? Zithromax [Azithromycin] Itching ??? Perry Inhibitors Cough Last refill- 10/17/20 Last OV- 05/04/21 Future OV 07/27/21 documented in this encounter Plan of Treatment Not on file documented as of this encounter Goals Goal Patient Goal Type Associated Problems Recent Progress Patient-Stated? Author Blood Pressure < 140/90 Blood Pressure 172/93(2022 8:59 AM CDT) No Zachary Moreno Quit smoking / using tobacco Lifestyle No Puja Raymundo documented as of this encounter Visit Diagnoses Not on filedocumented in this encounter Care Teams Medical Insurance Claims Specialist Relationship Specialty Start Date End Date Alf Khan DO PCP - General Family Medicine 09/03/13 02/27/23 documented as of this encounter
--- OUTSIDE RECORDS SUMMARY | 2024-09-06 20:27 | XMS_ITS | Encounter Summary ---
Author Organization [facility] Address [address] [place] [address] Care Team Providers Care House Repairer Name Role Phone Alf Khan DO Primary Care Provider Stephan rosa Encounter Details Date Type Department Care Team (Latest Contact Info) Description 10/31/2020 Travel Social History Tobacco Use Types Packs/Day Years Used Date Smoking Tobacco: Every Day Cigarettes 1.5 25 Started: 12/07/1985; Last attempted to quit: 12/07/2010 Smokeless Tobacco: Never Alcohol Use Standard Drinks/Week Comments Yes 0 (1 standard drink = 0.6 oz pur e alcohol) social Sex and Gender Information Value Date Recorded Sex Assigned at Male 08/31/2020 7:44 AM FOXING CUTTING 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 Gender Identity Male 08/31/2020 7:44 AM FOXING CUTTING 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 Sexual Orientation Straight 08/31/2020 7: 44 AM FOXING CUTTING 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 COVID-19 Exposure Response Date Recorded In the last month, have you been in contact with someone who was confirmed or suspected to have Coronavirus / COVID-19? No / Unsure 10/31/2020 12:31 PM FOXING CUTTING 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 documented as of this encounter [...] on filedocumented in this encounter Care Teams House Repairer Relationship Specialty Start Date End Date Alf Khan DO PCP - General Family Medicine 09/03/13 02/27/23 documented as of this encounter
--- OUTSIDE RECORDS SUMMARY | 2024-09-06 20:27 | XMS_ITS | Encounter Summary ---
Author Organization [facility] Health Address [address] [place] [address] Care Team Providers Care Research Administrator Name Role Phone Alf Khan DO Primary Care Provider Stephan rosa Reason for Visit * Reason Onset Date Comments Medication Problem 10/26/2021 Encounter Details Date Type Department Care Team (Late st Contact Info) Description 10/26/2021 Telephone [facility] - Family Medicine [address] [place] [address] Alf Khan, DO Medication Problem Social History [...] Sex Assigned at Male 08/31/2020 7:44 AM SENIOR RADIATION THERAPIST Gender Identity Male 08/31/2020 7:44 AM SENIOR RADIATION THERAPIST Sexual Orientation Straight 08/31/2020 7: 44 AM SENIOR RADIATION THERAPIST documented as of this encounter Functional Status [...] Telephone Encounter - Juan Jose Smith - 10/26/2021 10:45 AM CST Per pharmacists on 10/26/21 - they are only able to fill a partial fill of the following script below: HYDROcodone-acetaminophen (NORCO) 7.5-325 MG tablet Pt. Only got 109 / 120 tablets on 10/26/21 - just a fyi OR RADIATION THERAPIST documented in this encounter Plan of Treatment Not on file documented as of this encounter Goals Goal Patient Goal Type Associated Problems Recent Progress Patient-Stated? Author Blood Pressure < 140/90 Blood Pressure 172/93(2022 8:59 AM CDT) No Zachary Moreno Quit smoking / using tobacco Lifestyle No Puja Raymundo documented as of this encounter Visit Diagnoses Not on filedocumented in this encounter Care Teams Research Administrator Relationship Specialty Start Date End Date Alf Khan DO PCP - General Family Medicine 09/03/13 02/27/23 documented as of this encounter
--- OUTSIDE RECORDS SUMMARY | 2024-09-06 20:27 | XMS_ITS | Encounter Summary ---
Author Organization [facility] Health Address [address] [place] [address] Care Team Providers Care Stock Shipper Name Role Phone Pcp, Manuel Melgar Primary Care Provider Unav ailable Reason for Visit * Reason Onset Date Comments Scheduling 03/09/2024 Encounter Details Date Type Department Care Team (Late st Contact Info) Description 03/09/2024 Telephone [facility] - Family Medicine [address] [place] [address] Pcp, Manuel Melgar Scheduling Social History Tobacco Use Types Packs/Day Years [...] Sex Assigned at Male 08/31/2020 7:44 AM DRUG CLERK Gender Identity Male 08/31/2020 7:44 AM DRUG CLERK Sexual Orientation Straight 08/31/2020 7: 44 AM DRUG CLERK documented as of this encounter Functional Status [...] encounter Miscellaneous Notes * Telephone Encounter - Dung Moore - 03/09/2024 2:42 PM CDT LVM FOR PATIENT TO CALL BACK TO ESTABLISH CARE documented in this encounter Plan of Treatment Not on file documented as of this encounter Goals Goal Patient Goal Type Associated Problems Recent Progress Patient-Stated? Author Blood Pressure < 140/90 Blood Pressure 172/93(2022 8:59 AM CDT) No Zachary Moreno Quit smoking / using tobacco Lifestyle No Puja Raymundo documented as of this encounter Visit Diagnoses Not on filedocumented in this encounter Care Teams Stock Shipper Relationship Specialty Start Date End Date PcpManuel PCP - General 02/28/23 documented as of this encounter
--- OUTSIDE RECORDS SUMMARY | 2024-09-06 20:27 | XMS_ITS | Clinical Summary ---
Author Organization [facility] Address [address] [place] [address] Care Team Providers Care Interior Design Principal Name Role Phone Pcp, Manuel Pérez Primary Care Provider Unav ailable Source Comments [facility],non-owned Affiliates and Associated Physician Practices is amultiple site organization consisting of ambulatory clinics and hospital sitesin [place], [place], [place] and [place]. This disclosure is being madepursuant to the Care Everywhere program and may not contain all information available regarding this patient. Last updated 18.[facility] Allergies Active Allergy Reactions Criticality Noted Date Comments Perry Inhibitors Cough Low 09/30/2009 Azithromycin Itching 02/18/2019 Medications * Be aware that medications may not be up to date on this document. Alwaysverify current medications with the patient. Medication Sig Dispensed Refills Start Date End Date Status HYDROcodone-acetamino phen (Kendall) 5-325 MG tabletIndications:Chr onic pain syndrome Take 1 (one) tablet by mouth every 4 hours as needed for Pain Dx M50.30 120 tablet 02/03/2023 Active HYDROcodone-acetamino phen (Kendall) 7.5-325 MG tabletIndications:Chr onic pain syndrome Take 1 (one) tablet by mouth every 4 hours as needed for Pain Dx M50.30 120 tablet 01/07/2023 Active HYDROcodone-acetamino phen (Kendall) 7.5-325 MG tabletIndications:Chr onic pain syndrome Take [...] Pf Intradermal (ADULT) 06/10/2012 TDAP (7yrs+) 07/11/2021,06/10/2012 Family History Medical History Relation Name Comments Cancer - Lung Mother Relation Name Status Comments Mother Social History Tobacco Use Types Packs/Day Years [...] Sex Assigned at Male 08/31/2020 7:44 AM CONSTRUCTION TRADES CONTRACTOR Gender Identity Male 08/31/2020 7:44 AM CONSTRUCTION TRADES CONTRACTOR Sexual Orientation Straight 08/31/2020 7: 44 AM CONSTRUCTION TRADES CONTRACTOR Last Filed Vital Signs Vital Sign Reading [...] Mass Index 35.6 03/15/2023 8:59 AM CDT Plan of Treatment Health Maintenance Due Date Last Done Comments COLOGUARD (AGES 45-75) - COLON CA SCREENING 1965 CT COLONOGRAPHY - COLON CA SCREENING 1965 FIT - COLON CA SCREENING 1965 FLEX SIG - COLON CA SCREENING 1965 HIV SCREENING 1980 HEPATITIS B VACCINE (1 of 3 - 19+ 3-dose series) 1984 PNEUMOCOCCAL VACCINE 50+ (1 of 2 - PCV) 1984 PNEUMOCOCCAL VACCINE (1 of 2 - PCV) 1984 LUNG CANCER SCREENING 11/30/2015 ZOSTER VACCINE (1 of 2) 11/30/2015 Opioid Medication Urine Drug Screening 09/20/2023 09/20/2022 (Done Outside Per Report), 01/09/2021 SCREENING FOR DIABETES 01/10/2024 , 01/09/2021, 02/22/2018, Additional history exists COLON MONITORING 04/15/2024 04/15/2014 COLONOSCOPY - COLON CA SCREENING 04/15/2024 04/15/2014 Colorectal Cancer Screening 04/15/2024 COVID-19 VACCINE ( season) 2024 INFLUENZA VACCINE (#1) 2024 06/10/2012, 2010 DEPRESSION SCREENING 08/26/2024 09/19/2022, 10/27/19 22 LIPID TESTING 01/09/2026 01/09/2021, 03/26, 04/05/2014, Additional history exists DTAP/TDAP/TD VACCINES (3 - Td or Tdap) 07/11/2031 07/11/2021, 06/10/2012 HEPATITIS C SCREENING Completed 05/09/2011, 010 HIB VACCINE Aged Out No longer eligi ble based on patient's age to complete this topic HPV VACCINE Aged Out No longer eligi ble based on patient's age to complete this topic MENINGOCOCCAL (Group B) VACCINE Aged Out No longer eligible based on patient's age to complete this topic MENINGOCOCCAL VACCINE Aged Out No jesús willie eligible based on patient's age to complete this topic Goals Goal Patient Goal Type Associated Problems [...] CONFIRMATION (01/09/2021 10:45 AM CDT) Opiates Negative [id number] [facility] ACCOUNT BILL Comment: Opiate test includes Codeine and Morphine only. FASTING 01/09/2021 10:4 5 AM CDT 01/09/2021 Narrative Resulting Agency Comment Lab Testing performed at: [facility] [place] [address] [place] [id number] Alf Khan DO LAB - URINE CHEMISTR Y ORDERABLES [facility] ACCOUNT BILL [address] [place] [address] * (ABNORMAL) COMPREHENSIVE METABOLIC PANEL (01/09/2021 10:44 [...] Resulting Agency Comment Lab Testing performed at: [place] [id number] [facility] ??[facility] [id number] Alf Susanne Khan DO LAB - CHEMISTRY ORDEcho WILEY Performing Organization Address City/[facility]/ZIP Co de Phone Number [facility] ACCOUNT BILL [address] [place] [address] * (ABNORMAL) LIPID PROFILE (01/09/2021 10:44 AM [...] Resulting Agency Comment Lab Testing performed at: [address] ??[facility] [id number] Alf Susanne Bill DO LAB - CHEMISTRY LIZABETH WILEY Performing Organization Address City/[facility] Co de Phone Number [facility] ACCOUNT BILL [address] [place] [address] * ENDOSCOPY, COLON, SCREENING (04/15/2014 8:24 AM CDT) Report Endoscopy POC _ Patient Name: Trenton White ? Procedure Date: 04/15/2014 8:24 AM ? Date of : 1965 ? Admit Type: Outpatient Age: 48 ? Gender: Male Attending MD: Astrid Rios DO ?? _ Procedure: ? Colonoscopy Indications: ? [...] Procedure Code(s): ? --- Professional --- ? 82728, Colonoscopy, flexible, proximal to splenic flexure; with removal ? of tumor(s), polyp(s), or other lesion(s) by snare technique ? --- Technical --- ? 75728, Colonoscopy, flexible, proximal to splenic flexure; with [...] (without mention of hemorrhage) CPT copyright 2013 [employer]. All rights reserved. The codes documented in this report are preliminary and upon data coder operator review may be revised to meet current compliance requirements. ___ Astrid Rios DO 04/15/2014 8:51 AM This report has been signed electronically. Number of Addenda: 0 Note Initiated On: 04/15/2014 8:24 AM [facility] 04/15/2014 8:24 AM CDT Astrid Rios DO GI PROCEDURE ORDERAB LES Performing Organization Address City/[facility] Co de Phone Number [facility] [place] [address] * HEPATITIS SCREEN ACUTE W/REFLX HBSAG (POREF (05/09/2011 2:50 PM CDT) Hepatitis A Virus Antibody IgM NON-REACTI VE NON-REACT [facility] Comment: Test Performed at: [facility] [address] [place] [address] ??[id number] BISI SCHWARZ DO,MPH Hepatitis B Virus Surface Antigen NON-REACTI VE NON-REACT [facility] Hepatitis B Core Virus Antibody IgM NON-REACTI VE NON-REACT [facility] Hepatitis C Antibody NON-REACTI VE NON-REACT [facility] Signal to Cut-Off 0.12 <1.00 [facility] 05/09/2011 2:50 PM CDT 05/10/2011 5:23 AM CDT Jose Rust DO LAB - CHEMISTRY LIZABETH WILEY Performing Organization Address City/[facility] Co de Phone Number [facility] [address] [place] [address] from Last 3 Months or Most Recently Relevant to Health Maintenance Care Teams Interior Design Principal Relationship Specialty Start Date End Date Pcp, Manuel Pérez PCP - General 02/28/23
--- OUTSIDE RECORDS SUMMARY | 2024-09-06 20:27 | XMS_ITS | Encounter Summary ---
Author Organization [facility] Health Address [address] [place] [address] Care Team Providers Care Coverage Analyst Name Role Phone Alf Khan DO Primary Care Provider Stephan rosa Encounter Details Date Type Department Care Team (Latest Contact Info) Description 10/23/2021 Travel Social History Tobacco Use Types Packs/Day Years Used Date Smoking Tobacco: Every Day Cigarettes 1.5 25 Started: 12/07/1985; Last attempted to quit: 12/07/2010 Smokeless Tobacco: Never Alcohol Use Standard Drinks/Week Comments Yes 0 (1 standard drink = 0.6 oz pur e alcohol) social Sex and Gender Information Value Date Recorded Sex Assigned at Male 08/31/2020 7:44 AM STEAM TRAP WORKER Gender Identity Male 08/31/2020 7:44 AM STEAM TRAP WORKER Sexual Orientation Straight 08/31/2020 7: 44 AM STEAM TRAP WORKER documented as of this encounter Functional Status [...] on filedocumented in this encounter Care Teams Coverage Analyst Relationship Specialty Start Date End Date Alf Khan DO PCP - General Family Medicine 09/03/13 02/27/23 documented as of this encounter
--- OUTSIDE RECORDS SUMMARY | 2024-09-06 20:27 | XMS_ITS | Encounter Summary ---
Author Organization [facility] Health Address [address] [place] [address] Care Team Providers Care Route Inspector Name Role Phone Alf Khan DO Primary Care Provider Stephan rosa Reason for Visit * Reason Comments Refill Request Encounter Details Date Type Department Care Team (Late st Contact Info) Description 01/21/2023 Refill [facility] - Family Medicine [address] [place] [address] Alf Khan, DO Refill Request Social History [...] Sex Assigned at Male 08/31/2020 7:44 AM BUILDING DRAFTER Gender Identity Male 08/31/2020 7:44 AM BUILDING DRAFTER Sexual Orientation Straight 08/31/2020 7: 44 AM BUILDING DRAFTER documented as of this encounter Functional Status [...] encounter Miscellaneous Notes * Telephone Encounter - Uriel Marmolejo MA - 01/23/2023 4:06 PM CDT Called pt no answer no voicemail set up. Sent him a my chart message. * Telephone Encounter - Gil Garcia RN - 01/23/2023 3:49 PM CDT MEDICATION FILLED PER PROTOCOL Last Office Visit with PCP: 12/12/2022 Last Video Visit with PCP: 05/11/2020 Next Appointment with PCP: 03/06/2023 Disposition of prescription: e-prescribed to preferred pharmacy PCP has retired, pt given 1 rx per business enterprise officer to allow pt time to establish care with a new pcp. Please notify pt that he has received this refill and will need to seek care and meds from a new doctor going forward. documented in this encounter Plan of Treatment Not on file documented as of this encounter Goals Goal Patient Goal Type Associated Problems Recent Progress Patient-Stated? Author Blood Pressure < 140/90 Blood Pressure 172/93(2022 8:59 AM CDT) No Zachary Moreno Quit smoking / using tobacco Lifestyle No Puja Raymundo documented as of this encounter Visit Diagnoses Not on filedocumented in this encounter Care Teams Route Inspector Relationship Specialty Start Date End Date Alf Khan DO PCP - General Family Medicine 09/03/13 02/27/23 documented as of this encounter
--- OUTSIDE RECORDS SUMMARY | 2024-09-06 20:27 | XMS_ITS | Encounter Summary ---
Author Organization [facility] Health Address [address] [place] [address] Care Team Providers Care Feeder Tender Name Role Phone Alf Khan DO Primary Care Provider Stephan rosa Reason for Visit * Reason Onset Date Comments Medication Issue 11/10/2021 Encounter Details Date Type Department Care Team (Late st Contact Info) Description 11/10/2021 Telephone [facility] - Family Medicine [address] [place] [address] Alf Khan, DO Medication Issue Social History Tobacco Use Types Packs/Day Years [...] Sex Assigned at Male 08/31/2020 7:44 AM EXCHANGE SPECIALIST Gender Identity Male 08/31/2020 7:44 AM EXCHANGE SPECIALIST Sexual Orientation Straight 08/31/2020 7: 44 AM EXCHANGE SPECIALIST documented as of this encounter Functional Status [...] * Telephone Encounter - Puja Raymundo - 11/20/2021 2:35 PM CDT Pt has apt for 01/18/22 * Telephone Encounter - Alf Khan DO - 11/13/2021 3:11 PM CDT This is on him he needs to make this last because I do not replace partial fills of controlled substances. He could have waited to the the full amount * Telephone Encounter - Deisi Duran - 11/13/2021 2:11 PM CDT Juan Jose Smith routed this conversation to Alf Khan, DO Juan Jose Smith AA ?? 10/26/21 10:47 AM Note Per pharmacists on 10/26/21 - they are only able to fill a partial fill of the following script below: ?? HYDROcodone-acetaminophen (NORCO) 7.5-325 MG tablet ?? Pt. Only got 109 / 120 tablets on 10/26/21 - just a fyi * Telephone Encounter - Alf Khan DO - 11/12/2021 1:42 PM CDT Did you verify with drug store? * Telephone Encounter - Deisi Duran - 11/10/2021 11:31 AM CDT Pt was shorted 10-12 pills when he picked up 10/26/21 script for HYDROcodone- acetaminophen (NORCO) 7.5-325 MG tablet. Pt states the new script is dated 11/23/21. Pt is asking if PCP can move the fill date up to 11/12/21. documented in this encounter Plan of Treatment Not on file documented as of this encounter Goals Goal Patient Goal Type Associated Problems Recent Progress Patient-Stated? Author Blood Pressure < 140/90 Blood Pressure 172/93(2022 8:59 AM CDT) Zachary Funez Quit smoking / using tobacco Lifestyle No Puja Raymundo documented as of this encounter Visit Diagnoses Not on filedocumented in this encounter Care Teams Feeder Tender Relationship Specialty Start Date End Date Alf Khan DO PCP - General Family Medicine 09/03/13 02/27/23 documented as of this encounter
--- OUTSIDE RECORDS SUMMARY | 2024-09-06 20:27 | XMS_ITS | Encounter Summary ---
Author Organization [facility] Address [address] [place] [address] Care Team Providers Care District Plant Superintendent Name Role Phone Alf Khan DO Primary Care Provider Stephan rosa Reason for Visit * Reason Comments Complete Physical Exam pt for yearly exa m Medication Check pharmacy confirmed w ith pt Encounter Details Date Type Department Care Team (Latest Contact Info) Description 06/01/2020 4:00 PM CDT Office Visit [facility] - Family Medicine [address] [place] [address] Alf Khan DO Degeneration of lumbar or lumbosacral intervertebral disc (Primary Dx); Smoker; Elevated blood pressure reading; Thoracic spine pain; Degeneration of cervical intervertebral disc; Metabolic syndrome Social History Tobacco Use Types Packs/Day Years Used Date Smoking Tobacco: Every Day Cigarettes 1.5 25 Started: 12/07/1985; Last attempted to quit: 12/07/2010 Smokeless Tobacco: Never Alcohol Use Standard Drinks/Week Comments Yes 0 (1 standard drink = 0.6 oz pur e alcohol) social Sex and Gender Information Value Date Recorded Sex Assigned at Male 08/31/2020 7:44 AM GRASSROOTS ORGANIZER Gender Identity Male 08/31/2020 7:44 AM GRASSROOTS ORGANIZER Sexual Orientation Straight 08/31/2020 7: 44 AM GRASSROOTS ORGANIZER COVID-19 Exposure Response Date Recorded In the last month, have you been in contact with someone who was confirmed or suspected to have Coronavirus / COVID-19? No / Unsure 05/17/2020 11:35 AM CDT documented as of this encounter Last Filed Vital Signs Vital Sign Reading Time Taken Comments Blood Pressure 144/88 06/01/2020 4:50 PM CDT Pulse 88 06/01/2020 3:47 PM CDT Temperature 37 ??C (98.6 ??F) 06/01/2020 3:47 PM CDT Respiratory Rate - - Oxygen Saturation 96% 06/01/2020 3:47 PM CDT Inhaled Oxygen Concentration - - Weight 114.3 kg (252 lb) 06/01/2020 3:47 PM CDT Height 180.3 cm (5' 11 ) 06/01/2020 3:47 PM CDT Body Mass Index 35.15 06/01/2020 3:47 PM CDT documented in this encounter Functional [...] encounter Progress Notes * Alf Khan, - 06/01/2020 4:38 PM CDT Office Visit, Established Patient, [id number] HISTORY: SYDNEE Trenton Crockett is a 54 year old male patient, here for: Chief Complaint Patient presents with ??? Complete Physical Exam pt for yearly exam ??? Medication Check pharmacy confirmed with pt HPI: Pt here today for evaluation of back pain and to get meds refilled. Patient had been taking Oliver 7.5's for his back pain in the past but has been out of this medication for nearly 1 month now. Has been dealing with upper and low back pain for the last couple of years. Pain is a 9/10 right now and out of meds. He says that his pain is dull and sharp. It can radiate into his upper thighs andeven down to the lateral lower leg. It is activity driven. Reports he recently moved homes and had done a lot of the heavy lifting. Patient states his pain medication allows him to perform activitiesof daily living, particularly with his job. Has tried physical therapy for his back but it did not help him much. Blood pressure is borderline elevated he is only on lifestyle changes. BP Readings from Last 3 Encounters: 06/01/20 144/88 06/30/20 148/92 09/29/19 144/86 Smokes 1 ppd and he is not interested in quitting and Counseled the patient on smoking cessation, Chantix, tpbb-zes-cvjjhve nicotine replacement systems patches and gums. Told them the risks of smoking include lung cancer, bladder cancer, COPD, mi and stroke. They have to be involved in the smokingcessation program or it will not succeed. In other words I cannot make someone quit smoking they have to want to quit smoking. I can give you Chantix and advice on the iyal-crr-qelztcx nicotine systems and I would suggest to [...] 108 (90 Base) MCG/ACT inhaler Inhale 2 puffs by mouthevery 4 hours as needed for Shortness of Breath, Wheezing or Cough 1 Inhaler 2 ??? HYDROcodone-acetaminophen (NORCO) 5-325 MG tablet [...] ??? Cancer - Lung Mother EXAM BP 144/88 Pulse 88 Temp 98.6 ??F (37 ??C) Ht 1.803 m (5' 11 ) Wt 114.3 kg (252 lb) SpO2 96% BMI 35.15 kg/m?? General appearance - WM wearing mask, no distress Neck- Supple and carotids have no bruits Chest - CTA Heart - normal rate, regular rhythm, normal S1, S2, no m/r/c/g Back -near full normal range of motion hands to ankle level. Pain noted with motion extension is about 50 percent expected. Side-bending rotation near fall with pain noted with motion. Straight leg raising is negative Ext-no pretibial or pedal edema Skin- no visible rashes Depression: PHQ-2:TOTAL POINT SCORE: 0 PHQ-9: ASSESSMENT: ICD-10-CM 1. Degeneration of lumbar or lumbosacral intervertebral disc M51.37 2. Smoker F17.200 3. Elevated blood pressure reading R03.0 4. Thoracic spine pain M54.6 5. Degeneration of cervical intervertebral disc M50.30 6. Metabolic syndrome E88.81 PLAN: Orders Placed This Encounter ??? HYDROcodone-acetaminophen [...] Dispense: 120 tablet Refill: 0 ??? HYDROcodone-acetaminophen (NORCO) 7.5-325 MG tablet Sig: [...] 108 (90 Base) MCG/ACT inhaler Inhale 2 puffs by mouthevery 4 hours as needed for Shortness of Breath, Wheezing or Cough 1 Inhaler 2 ??? [START ON 07/22/2020] HYDROcodone-acetaminophen (NORCO) 5-325 MG tablet Take 1 tablet by mouth every 4 hours as needed for Pain Dx M50.30 120 tablet 0 ??? 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 Patient use take blood pressure medicine decided hedid not need it he got himself often his blood pressure readings are good. He also had metabolic syndrome any lost weight and seem to maintain his blood test. He lost his insurance so we are not ableto do anything else. continue all other treatment as is Safe [...] Thoracic spine pain Pain in thoracic spine Degeneration of cervical intervertebral disc Metabolic syndrome Dysmetabolic Syndrome X documented in this encounter Care Teams District Plant Superintendent Relationship Specialty Start Date End Date Alf Khan DO PCP - General Family Medicine 09/03/13 02/27/23 documented as of this encounter
--- OUTSIDE RECORDS SUMMARY | 2024-09-06 20:27 | XMS_ITS | Encounter Summary ---
Author Organization [facility] Address [address] [place] [address] Care Team Providers Care Probation And Patrol Agent Name Role Phone Pcp, Manuel Pérez Primary Care Provider Unav ailable Reason for Visit * Reason Onset Date Comments Question 03/15/2023 Encounter Details Date Type Department Care Team (Late st Contact Info) Description 03/15/2023 Telephone [facility] - Surgery [address] [address] [place] [address] [address] [place] [address] Question Social History Tobacco Use Types Packs/Day Years [...] Sex Assigned at Male 08/31/2020 7:44 AM PARTS COUNTER REPRESENTATIVE Gender Identity Male 08/31/2020 7:44 AM PARTS COUNTER REPRESENTATIVE Sexual Orientation Straight 08/31/2020 7: 44 AM PARTS COUNTER REPRESENTATIVE documented as of this encounter Functional Status [...] encounter Miscellaneous Notes * Telephone Encounter - Shweta Heaton - 03/15/2023 10:16 AM CDT Patient was in the ER on 03/14 with a perirectaal abscess he needs is soon I dont see any where to put him? documented in this encounter Plan of Treatment Not on file documented as of this encounter Goals Goal Patient Goal Type Associated Problems Recent Progress Patient-Stated? Author Blood Pressure < 140/90 Blood Pressure 172/93(2022 8:59 AM CDT) No Zachary Moreno Quit smoking / using tobacco Lifestyle No Puja Raymundo documented as of this encounter Visit Diagnoses Not on filedocumented in this encounter Care Teams Probation And Patrol Agent Relationship Specialty Start Date End Date PcpManuel PCP - General 02/28/23 documented as of this encounter
--- OUTSIDE RECORDS SUMMARY | 2024-09-06 20:27 | XMS_ITS | Encounter Summary ---
Author Organization [facility] Address [address] [place] [address] Care Team Providers Care Lawn Maintenance Worker Name Role Phone Alf Khan DO Primary Care Provider Stephan rosa Reason for Visit * Reason Onset Date Comments Encounter Opened In Error 05/11/2020 Encounter Details Date Type Department Care Team (Late st Contact Info) Description 05/11/2020 4:00 PM CDT Video Visit [facility] - Family Medicine [address] [place] [address] Alf Khan DO ERRONEOUS ENCOUNTER--DISREGARD Social History Tobacco Use Types Packs/Day Years Used Date Smoking Tobacco: Every Day Cigarettes 1.5 25 Started: 12/07/1985; Last attempted to quit: 12/07/2010 Smokeless Tobacco: Never Alcohol Use Standard Drinks/Week Comments Yes 0 (1 standard drink = 0.6 oz pur e alcohol) social Sex and Gender Information Value Date Recorded Sex Assigned at Male 08/31/2020 7:44 AM VP CLINICAL RESEARCH Gender Identity Male 08/31/2020 7:44 AM VP CLINICAL RESEARCH Sexual Orientation Straight 08/31/2020 7: 44 AM VP CLINICAL RESEARCH COVID-19 Exposure Response Date Recorded In the last month, have you been in contact with someone who was confirmed or suspected to have Coronavirus / COVID-19? No / Unsure 04/28/2020 3:47 PM CDT documented as of this encounter Functional [...] of this encounter Progress Notes * Alf Khan DO - 05/11/2020 4:38 PM CDT . Trenton Crockett encounter was opened in error. Please disregard any activity associated with this encounter. documented in this encounter Plan of Treatment Not on file documented as of this encounter Goals Goal Patient Goal Type Associated Problems Recent Progress Patient-Stated? Author Blood Pressure < 140/90 Blood Pressure 172/93(2022 8:59 AM CDT) No Zachary Moreno Quit smoking / using tobacco Lifestyle No Puja Raymundo documented as of this encounter Visit Diagnoses Diagnosis ERRONEOUS ENCOUNTER--DISREGARD- Primary documented in this encounter Care Teams Lawn Maintenance Worker Relationship Specialty Start Date End Date Alf Khan DO PCP - General Family Medicine 09/03/13 02/27/23 documented as of this encounter
--- OUTSIDE RECORDS SUMMARY | 2024-09-06 20:27 | XMS_ITS | Encounter Summary ---
Author Organization [facility] Address [address] [place] [address] Care Team Providers Care Program Control Analyst Name Role Phone Alf Khan DO Primary Care Provider Stephan rosa Reason for Visit * Reason Comments Pain Managment Pain med refill. Luke fox pain is new. Pt thinks MRI is needed Encounter Details Date Type Department Care Team (Latest Contact Info) Description 04/12/2022 4:00 PM CDT Office Visit [facility] - Family Medicine [address] [place] [address] Alf Khan DO Chronic pain syndrome (Primary Dx); Mixed hyperlipidemia; Degeneration of cervical intervertebral disc; Arthritis; Radicular pain in left arm; Elevated blood pressure reading; Smoker Social History Tobacco Use Types Packs/Day Years Used Date Smoking Tobacco: Every Day Cigarettes 1.5 25 Started: 12/07/1985; Last attempted to quit: 12/07/2010 Smokeless Tobacco: Never Alcohol Use Standard Drinks/Week Comments Yes 0 (1 standard drink = 0.6 oz pur e alcohol) social PHQ-2 Answer Date Recorded PHQ2 TOTAL SCORE 0 04/12/2022 Sex and Gender Information Value Date Recorded Sex Assigned at Male 08/31/2020 7:44 AM ADULT DAY CARE WORKER Gender Identity Male 08/31/2020 7:44 AM ADULT DAY CARE WORKER Sexual Orientation Straight 08/31/2020 7: 44 AM ADULT DAY CARE WORKER documented as of this encounter Last Filed Vital Signs Vital Sign Reading Time Taken Comments Blood Pressure 138/89 04/12/2022 3:55 PM CDT Pulse 89 04/12/2022 3:55 PM CDT Temperature 37.6 ??C (99.7 ??F) 04/12/2022 3:55 PM CD T Respiratory Rate - - Oxygen Saturation 98% 04/12/2022 3:55 PM CDT Inhaled Oxygen Concentration - - Weight 111.6 kg (246 lb) 04/12/2022 3:55 PM CDT Height - - Body Mass Index 34.31 01/18/2022 4:05 PM CDT documented in this [...] as of this encounter Progress Notes * Roopa Paiz, INFUSION THERAPY NURSE-CORE ANALYST - 04/12/2022 4:16 PM CDT Office Visit, Established Patient, [id number] HISTORY: SYDNEE Doughertydominique Crockett is a 56 year old male patient, here for: Chief Complaint Patient presents with ??? Pain Managment Pain med refill. Knee pain is new. Pt thinks MRI is needed HPI: Chronic pain- whole spine pain hurts today. Today 8-9/10 in spine. Also constant pain in left shoulder region/radiates down from neck to shoulder and arm. Pain medication improves function. 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 Cannot retire at this time. Colonoscopy-due 2023 BP-borderline BP discussed lifestyle changes. BP Readings from Last 3 Encounters: 04/12/22 138/89 01/18/22 140/82 10/26/21 136/82 Smokes 1 ppd and he is not interested in quitting. Counseled the patient on smoking cessation, Chantix, hsws-rbx-mtqnlco nicotine replacement systems patches and gums. Told them the risks of smoking include lung cancer, bladder cancer, COPD, mi and stroke. They have to be involved in the smoking cessation program or it will not succeed. In other words I cannot make someone quit smoking they have to want to quit smoking. I can give you Chantix and advice on the nmff-pmc-ccqlzqy nicotine systems and I would suggest to [...] OF BREATH, WHEEZING OR COUGH 18 g 2 ??? udobajtrob-ncepqbnejqcum-vqfrtqon (FIORICET) 50-300-40 MG capsule Take 1 (one) capsule by mouthevery 4 hours as needed for Headache (Patient not taking: Reported on 04/12/2022) 20 capsule 0 ??? HYDROcodone-acetaminophen (NORCO) 5-325 MG tablet Take 1 (one) tablet by mouth every 4 hours asneeded for Pain Dx M50.30 120 tablet 0 ??? HYDROcodone-acetaminophen (NORCO) 7.5-325 MG tablet Take 1 (one) tablet by mouth every 4 hours as needed for Pain Dx M50.30 48 tablet 0 ??? HYDROcodone-acetaminophen (NORCO) 7.5-325 MG tablet Take 1 (one) tablet by mouth every 4 hours as needed for Pain Dx M50.30 120 tablet 0 ??? ondansetron, disintegrating, (ZOFRAN ODT) 4 MG tablet Take 1 (one) tablet by mouth every 6 hours as needed for Nausea/Vomiting Allow tablet to dissolve on the tongue (Patient not taking: Reportedon 04/12/2022) 20 tablet 2 No facility-administered medications prior [...] ??? Cancer - Lung Mother EXAM BP 138/89 Pulse 89 Temp 99.7 ??F (37.6 ??C) Wt 111.6 kg (246 lb) SpO2 98% BMI 34.31 kg/m?? General appearance - WM, wearing mask, no distress Neck- Supple and carotids have no bruits Chest - CTA Heart - normal rate, regular rhythm, normal S1, S2, no m/r/c/g Ext-no pretibial or pedal edema Skin-laceration on skull is healed completely Depression: PHQ-2:PHQ2 TOTAL SCORE: 0 PHQ-9: ASSESSMENT: ICD-10-CM 1. Chronic pain syndrome G89.4 MRI CERVICAL SPINE WO CONTRAST 2. Mixed hyperlipidemia E78.2 3. Degeneration of cervical intervertebral disc M50.30 MRI CERVICAL SPINE WO CONTRAST 4. Arthritis M19.90 5. Radicular pain in left arm M79.2 MRI CERVICAL SPINE WO CONTRAST 6. Elevated blood pressure reading R03.0 7. Smoker F17.200 PLAN: Orders Placed This Encounter ??? MRI CERVICAL SPINE WO CONTRAST Standing Status: Future Standing Expiration Date: 04/12/2023 Order Specific Question: Release to patient Answer: Immediate Order Specific Question: Exam to be performed? Answer: Per Radiologist protocol ??? HYDROcodone-acetaminophen ([place]) 5-325 MG tablet Sig: Take 1 (one) tablet by mouth every 4 hours as needed for Pain Dx M50.30 Dispense: 120 tablet Refill: 0 ??? HYDROcodone-acetaminophen ([place]) 7.5-325 MG tablet Sig: Take 1 (one) tablet by mouth every 4 hours as needed for Pain Dx M50.30 Dispense: 120 tablet Refill: 0 ??? HYDROcodone-acetaminophen ([place]) 7.5-325 MG tablet Sig: Take 1 (one) tablet by mouth every 4 hours as needed for Pain Dx M50.30 Dispense: 120 tablet Refill: 0 Goals ? ? Blood Pressure < 140/90 ??? Quit smoking / using tobacco Medications Discontinued During This Encounter Medication Reason ??? ondansetron, disintegrating, (ZOFRAN ODT) 4 MG tablet No Pharm No AVS ??? tbnrsdehal-chlfkkipyqsqm-sgztfkkg (FIORICET) 50-300-40 MG capsule No Pharm No AVS ??? HYDROcodone-acetaminophen (NORCO) [...] OF BREATH, WHEEZING OR COUGH 18 g 2 ??? [START ON 06/04/2022] HYDROcodone-acetaminophen ([place]) 5-325 MG tablet Take 1 (one) tablet by mouth every 4 hours as needed for Pain Dx M50.30 120 tablet 0 ??? [START ON 05/08/2022] HYDROcodone-acetaminophen ([place]) 7.5-325 MG tablet Take 1 (one) tablet bymouth every 4 hours as needed for Pain Dx M50.30 120 tablet 0 ??? HYDROcodone-acetaminophen ([place]) 7.5-325 MG tablet Take 1 (one) tablet by mouth every 4 hours as needed for Pain Dx M50.30 120 tablet 0 No current facility-administered medications for this visit. Essential hypertension-patient stop taking blood pressure medication is been controlling it with lifestyle changes. We are monitoring this and is initially elevated came back down to normal. He will probably need a blood pressure medicine again in the future. Will continue to monitor Recommend he quit smoking Refilled pain medicine for 90 days norco 7.5 mg for 90 days. Executed drug contact today. Patient will urine drug screen soon Continue all other treatment per orders Safe [...] Procedure Name Priority Date/Time Associated Diagnosis Comments SCAN ONLY HIS OPIOID MED AGREEMENT 04/12/2022 documented in this encounter Results * SCAN ONLY HIS OPIOID MED AGREEMENT (04/12/2022) 04/12/2022 Narrative 04/12/2022 Ordered by an unspecified provider. Scanned Document SCANNING ONLY documented in this encounter Visit Diagnoses Diagnosis Chronic pain syndrome- Primary Mixed hyperlipidemia Degeneration of cervical intervertebral disc Arthritis Arthropathy, unspecified, site unspecified Radicular pain in left arm Neuralgia, neuritis, and radiculitis, unspecified Elevated blood pressure reading Elevated blood pressure reading without diagnosis of hypertension Smoker Tobacco use disorder documented in this encounter Care Teams Program Control Analyst Relationship Specialty Start Date End Date Alf Khan DO PCP - General Family Medicine 09/03/13 02/27/23 documented as of this encounter
--- OUTSIDE RECORDS SUMMARY | 2024-09-06 20:27 | XMS_ITS | Encounter Summary ---
Author Organization [facility] Address [address] [place] [address] Care Team Providers Care Pharmacologist Name Role Phone Alf Khan DO Primary Care Provider Stephan rosa Reason for Visit * Reason Onset Date Comments MEDICATION REFILL 2020 Encounter Details Date Type Department Care Team (Late st Contact Info) Description 11/22/2020 Refill [facility] - Family Medicine [address] [place] [address] Alf Khan, DO MEDICATION REFILL Social History Tobacco Use Types Packs/Day Years Used Date Smoking Tobacco: Every Day Cigarettes 1.5 25 Started: 12/07/1985; Last attempted to quit: 12/07/2010 Smokeless Tobacco: Never Alcohol Use Standard Drinks/Week Comments Yes 0 (1 standard drink = 0.6 oz pur e alcohol) social Sex and Gender Information Value Date Recorded Sex Assigned at Male 08/31/2020 7:44 AM SCOUT PROFESSIONAL SPORTS Gender Identity Male 08/31/2020 7:44 AM SCOUT PROFESSIONAL SPORTS Sexual Orientation Straight 08/31/2020 7: 44 AM SCOUT PROFESSIONAL SPORTS COVID-19 Exposure Response Date Recorded In the last month, have you been in contact with someone who was confirmed or suspected to have Coronavirus / COVID-19? No / Unsure 10/31/2020 12:31 PM SCOUT PROFESSIONAL SPORTS documented as of this encounter Functional Status [...] encounter Miscellaneous Notes * Telephone Encounter - Alina Vidal - 11/22/2020 4:18 PM CDT [facility] the [facility] prescriptions was sent to can't fill because their system has been down since 9 am(I spoke with the pharmacistMy to verify) Pt would like RX moved to another [facility]. I spoke with Pb Pharmacist at the [facility] in [facility]), their system is up and they have the medication iinstock. documented in this encounter Plan of Treatment Not on file documented as of this encounter Goals Goal Patient Goal Type Associated Problems Recent Progress Patient-Stated? Author Blood Pressure < 140/90 Blood Pressure 172/93(2022 8:59 AM CDT) No Zachary Moreno Quit smoking / using tobacco Lifestyle No Puja Raymundo documented as of this encounter Visit Diagnoses Not on filedocumented in this encounter Care Teams Pharmacologist Relationship Specialty Start Date End Date Alf Khan DO PCP - General Family Medicine 09/03/13 02/27/23 documented as of this encounter
--- OUTSIDE RECORDS SUMMARY | 2024-09-06 20:27 | XMS_ITS | Encounter Summary ---
Author Organization [facility] Address [address] [place] [address] Care Team Providers Care Store Worker Name Role Phone Alf Khan DO Primary Care Provider Stephan rosa Reason for Visit * Reason Onset Date Comments Question 07/12/2021 Work Comp - Follow Up 07/12/2021 ER UC Follow-up 07/12/2021 Appointment 07/12/2021 Patient Requested Call 07/12/2021 Encounter Details Date Type Department Care Team (Late st Contact Info) Description 07/12/2021 Telephone [facility] - Family Medicine [address] [place] [address] Alf Khan DO Question; Work Comp - Follow Up; ER UC Follow-up; Appointment; Patient Requested Call Social History Tobacco Use Types Packs/Day Years Used Date Smoking Tobacco: Every Day Cigarettes 1.5 25 Started: 12/07/1985; Last attempted to quit: 12/07/2010 Smokeless Tobacco: Never Alcohol Use Standard Drinks/Week Comments Yes 0 (1 standard drink = 0.6 oz pur e alcohol) social Sex and Gender Information Value Date Recorded Sex Assigned at Male 08/31/2020 7:44 AM SUCCESSFACTORS CONSULTANT Gender Identity Male 08/31/2020 7:44 AM SUCCESSFACTORS CONSULTANT Sexual Orientation Straight 08/31/2020 7: 44 AM SUCCESSFACTORS CONSULTANT COVID-19 Exposure Response Date Recorded In the last month, have you been in contact with someone who was confirmed or suspected to have Coronavirus / COVID-19? No / Unsure 07/13/2021 9:06 AM SUCCESSFACTORS CONSULTANT documented as of this encounter Functional Status Functional Status Response Date of Assess ment Is person deaf or have serious hearing difficult y? No 04/15/2014 Is person blind or have serious difficulty davin g? No 04/15/2014 Does person have serious dif ficulty walking/climbing stairs? No 04/15/2014 Does person have difficulty dressing/bathing? No 04/15/2014 Does person have difficulty doing errands alone? No 04/15/2014 Cognitive Status Response Date of Assessm ent Does person have difficulty concentrating/remembering/making decisions? No 04/15/2014 documented as of this encounter Miscellaneous Notes * Telephone Encounter - Puja Raymundo - 07/27/2021 3:46 PM CST Patient seen in the office today ESSFACTORS CONSULTANT * Telephone Encounter - Deisi Duran - 07/12/2021 4:02 PM CST Irma voicemail is not set up. ESSFACTORS CONSULTANT * Telephone Encounter - Jeremias Gutierrez - 07/12/2021 7:28 AM CST Who is calling? If other than self is caller listed on the HIPAA? yes If caller is anyone other than listed above, where are they calling from? n/a What is the reason for call? 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 [place] seen the work doctor, followed by [facility]. Asking to follow up with ? Expected Response from the Clinic? ( ex. Call back, etc..) request call back. ESSFACTORS CONSULTANT documented in this encounter Plan of Treatment Not on file documented as of this encounter Goals Goal Patient Goal Type Associated Problems Recent Progress Patient-Stated? Author Blood Pressure < 140/90 Blood Pressure 172/93(2022 8:59 AM CDT) No Zachary Moreno Quit smoking / using tobacco Lifestyle No Puja Raymundo documented as of this encounter Visit Diagnoses Not on filedocumented in this encounter Care Teams Store Worker Relationship Specialty Start Date End Date Alf Khan DO PCP - General Family Medicine 09/03/13 02/27/23 documented as of this encounter
--- OUTSIDE RECORDS SUMMARY | 2024-09-06 20:27 | XMS_ITS | Encounter Summary ---
Author Organization [facility] Address [address] [place] [address] Care Team Providers Care Field Collector Name Role Phone Afl Khan DO Primary Care Provider Stephan rosa Reason for Visit * Reason Comments Pain Managment pt follow up to ongo ing back pain and med refills Medication Check pharmacy confirmed w ith pt Encounter Details Date Type Department Care Team (Latest Contact Info) Description 10/26/2021 9:45 AM RECORD CUTTER Office Visit [facility] - Family Medicine [address] [place] [address] Alf Khan DO Chronic pain syndrome (Primary Dx); Mild intermittent asthma, unspecified whether complicated (HCC); Smoker; Degeneration of cervical intervertebral disc; HTN (hypertension), benign; Mixed hyperlipidemia; Degeneration of lumbar or lumbosacral intervertebral disc [...] Sex Assigned at Male 08/31/2020 7:44 AM RECORD CUTTER Gender Identity Male 08/31/2020 7:44 AM RECORD CUTTER Sexual Orientation Straight 08/31/2020 7: 44 AM RECORD CUTTER documented as of this encounter Last Filed Vital Signs Vital Sign Reading Time Taken Comments Blood Pressure 136/82 10/26/2021 9:51 AM RECORD CUTTER Pulse 88 10/26/2021 9:36 AM RECORD CUTTER Temperature 37 ??C (98.6 ??F) 10/26/2021 9:36 AM RECORD CUTTER Respiratory Rate - - Oxygen Saturation 97% 10/26/2021 9:36 AM RECORD CUTTER Inhaled Oxygen Concentration - - Weight 113.4 kg (250 lb) 10/26/2021 9:36 AM RECORD CUTTER Height 180.3 cm (5' 11 ) 10/26/2021 9:36 AM RECORD CUTTER Body Mass Index 34.87 10/26/2021 9:36 AM RECORD CUTTER documented in this encounter Functional Status Functional [...] encounter Progress Notes * Alf Khan, - 10/26/2021 9:47 AM CST Office Visit, Established Patient, [id number] HISTORY: CC [place] Crockett is a 55 year old male patient, here for: Chief Complaint Patient presents with ??? Pain Managment pt follow up to ongoing back pain and med refills ??? Medication Check pharmacy confirmed with pt HPI: Chronic pain from cervical spine and some low back pain as well. Back is the worst pain right now. In am pian bad moderate to severe. Activity makes pain worse as well. No SE to pain Rx. 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 No SE to pain Rx BP initially elevated 144 above goal of 140, on recheck BP Readings from Last 3 Encounters: 10/26/21 136/82 07/27/21 134/84 07/17/21 130/80 Smokes 1 ppd and he is not interested in quitting and Counseled the patient on smoking cessation, Chantix, uebk-juq-gxuucpk nicotine replacement systems patches and gums. Told them the risks of smoking include lung cancer, bladder cancer, COPD, mi and stroke. They have to be involved in the smokingcessation program or it will not succeed. In other words I cannot make someone quit smoking they have to want to quit smoking. I can give you Chantix and advice on the sjjp-mis-suxncku nicotine systems and I would suggest to [...] Wheezing or Cough 8.5 g 2 ??? ndosqauhyy-pnjuysnectojx-dwsdsxee (FIORICET) 50-300-40 MG capsule Take 1 (one) [...] ??? Cancer - Lung Mother EXAM BP 136/82 Pulse 88 Temp 98.6 ??F (37 ??C) Ht 1.803 m (5' 11 ) Wt 113.4 kg (250 lb) SpO2 97% BMI 34.87 kg/m?? General appearance - WM, wearing mask, no distress Neck- Supple and carotids have no bruits Chest - CTA Heart - normal rate, regular rhythm, normal S1, S2, no m/r/c/g Ext-no pretibial or pedal edema Skin-laceration on skull is healed completely Depression: PHQ-2:PHQ2 TOTAL SCORE: 0 PHQ-9: ASSESSMENT: ICD-10-CM 1. Chronic pain syndrome G89.4 2. Mild intermittent asthma, unspecified whether complicated J45.20 3. Smoker F17.200 4. Degeneration of cervical intervertebral disc M50.30 5. HTN (hypertension), benign I10 6. Mixed hyperlipidemia E78.2 7. Degeneration of lumbar or lumbosacral intervertebral disc M51.37 PLAN: No orders of the defined types [...] Wheezing or Cough 8.5 g 2 ??? howjyrxkdn-vtzsjdbksjiya-kxfyydfv (FIORICET) 50-300-40 MG capsule Take 1 (one) [...] norco 7.5 Mg for 90 days Continue all other treatment per orders Safe use and storage of controlled meds reviewed with pt again today SE of meds discussed with patient and best way to take medication. All questions answered. Return to office in 3 months. Patient instructed to call with any concerns or problems. RD CUTTER documented in this encounter Plan of Treatment Not on file documented as of this encounter Goals Goal Patient Goal Type Associated Problems Recent Progress Patient-Stated? Author Blood Pressure < 140/90 Blood Pressure 172/93(2022 8:59 AM CDT) No Zachary Moreno Quit smoking / using tobacco Lifestyle No Puja Raymundo documented as of this encounter Visit Diagnoses Diagnosis Chronic pain syndrome- Primary Mild intermittent asthma, unspecified whether complicated (HCC) Smoker Tobacco use disorder Degeneration of cervical intervertebral disc HTN (hypertension), benign Essential hypertension, benign Mixed hyperlipidemia Degeneration of lumbar or lumbosacral intervertebral disc documented in this encounter Care Teams Field Collector Relationship Specialty Start Date End Date Alf Khan DO PCP - General Family Medicine 09/03/13 02/27/23 documented as of this encounter
--- OUTSIDE RECORDS SUMMARY | 2024-09-06 20:27 | XMS_ITS | Encounter Summary ---
Author Organization [facility] Address [address] [place] [address] Care Team Providers Care Carbide Powder Processor Name Role Phone Alf Khan DO Primary Care Provider Stephan rosa Reason for Visit * Reason Onset Date Comments Medication Issue 02/05/2022 Encounter Details Date Type Department Care Team (Late st Contact Info) Description 02/05/2022 Telephone [facility] - Family Medicine [address] [place] [address] Alf Khan, DO Medication Issue Social History [...] Sex Assigned at Male 08/31/2020 7:44 AM COMPANY CONTROLLER Gender Identity Male 08/31/2020 7:44 AM COMPANY CONTROLLER Sexual Orientation Straight 08/31/2020 7: 44 AM COMPANY CONTROLLER documented as of this encounter Functional Status [...] Telephone Encounter - Alf Khan DO - 02/05/2022 9:52 AM CDT Patient was short of 48 pills on his hydrocodone script. Told him in the pharmacy to not fill partial prescriptions on narcotics. I have to completely redo a new prescription and create an encounter to justify why I am sending in more pain pills when he just got them * Telephone Encounter - Emily Bishop - 02/05/2022 9:30 AM CDT [facility]/18/2022 [facility] [place] but only [facility] 18 day supply. Can patient get early refill on 02/14/2022 Rx since [facility] not [facility] 30 day supply on 01/18/2022? Pharmacy calling documented in this encounter Plan of Treatment Not on file documented as of this encounter Goals Goal Patient Goal Type Associated Problems Recent Progress Patient-Stated? Author Blood Pressure < 140/90 Blood Pressure 172/93(2022 8:59 AM CDT) No Zachary Moreno Quit smoking / using tobacco Lifestyle No Puja Raymundo documented as of this encounter Visit Diagnoses Not on filedocumented in this encounter Care Teams Carbide Powder Processor Relationship Specialty Start Date End Date Alf Khan DO PCP - General Family Medicine 09/03/13 02/27/23 documented as of this encounter
--- OUTSIDE RECORDS SUMMARY | 2024-09-06 20:27 | XMS_ITS | Encounter Summary ---
Author Organization [facility] Address [address] [place] [address] Care Team Providers Care Pt Sitter Name Role Phone Alf Khan DO Primary Care Provider Stephan rosa Reason for Visit * Reason Comments MEDICATION REFILL Pt is here for a 3 m [facility] follow up to review medications Encounter Details Date Type Department Care Team (Latest Contact Info) Description 06/27/2022 4:00 PM CDT Office Visit [facility] - Family Medicine [address] [place] [address] Alf Khan DO Chronic pain syndrome (Primary Dx); Degeneration of cervical intervertebral disc; Smoker; Mixed hyperlipidemia; Elevated blood pressure reading; Degeneration of lumbar or lumbosacral intervertebral disc [...] Answer Date Recorded PHQ2 TOTAL SCORE 0 06/27/2022 Sex and Gender Information Value Date Recorded Sex Assigned at Male 08/31/2020 7:44 AM PARENT EDUCATOR Gender Identity Male 08/31/2020 7:44 AM PARENT EDUCATOR Sexual Orientation Straight 08/31/2020 7: 44 AM PARENT EDUCATOR documented as of this encounter Last Filed Vital Signs Vital Sign Reading Time Taken Comments Blood Pressure 146/96 06/27/2022 4:17 PM CDT Pulse 91 06/27/2022 4:09 PM CDT Temperature - - Respiratory Rate - - Oxygen Saturation 94% 06/27/2022 4:09 PM CDT Inhaled Oxygen Concentration - - Weight 114.8 kg (253 lb) 06/27/2022 4:09 PM CDT Height 180.3 cm (5' 11 ) 06/27/2022 4:09 PM CDT Body Mass Index 35.29 06/27/2022 4:09 PM CDT documented in this encounter Functional [...] Progress Notes * Alf Khan, DO - 06/27/2022 4:12 PM CDT Office Visit, Established Patient, [id number] HISTORY: SDYNEE [place] Crockett is a 56 year old male patient, here for: Chief Complaint Patient presents with ??? MEDICATION REFILL Pt is here for a 3 month follow up to review medications HPI: Chronic pain- patient is here for follow-up on chronic pain. He said his pain usually is mild to moderate the morning and said with his daily activities to because moderate and sometimes her. He said he takes pain medicine sit still and get down to moderate. He said he would not be able to go to work and function on a regular basis without pain medicine. He said it hurts so bad he would not want to leave the house. He has no side effects pain medicine. New pain contract and urine drug screen will be obtained today BP-blood pressure is high today on recheck patient wants to do lifestyle changes for 3 more months told him that he is probably going to knee medicine but he insists on trying to quit smoking workingon lifestyle changes. I told him if he does not quit smoking is blood pressure high will not come down BP Readings from Last 3 Encounters: 06/27/22 146/96 04/12/22 138/89 01/18/22 140/82 Ordered new lipids. Discussed with patient that he probably needs to be taking a statin drug but hewants to get a new set of labs because he has been working on low-fat diet. He says Recent Labs Component Name 01/09/21 1044 04/08/17 1055 04/05/14 1540 CHOL 190 165 172 TRIG 338* 177* 393* HDL 28* 47 34* VLDL 58* 35* 79* LDLCALC 104* 83 59 The 10-year ASCVD risk score (Shira GARCIA, et al., 2019) is: 20.5% Values used to calculate the score: Age: 56 years Sex: Male Is Non- : No Diabetic: No Tobacco smoker: Yes Systolic Blood Pressure: 146 mmHg Is BP treated: No HDL Cholesterol: 28 mg/dL Total Cholesterol: 190 mg/dL Smokes 1 ppd and he is not interested in quitting. Counseled the patient on smoking cessation, Chantix, bsif-osa-gffbtsp nicotine replacement systems patches and gums. Told them the risks of smoking include lung cancer, bladder cancer, COPD, mi and stroke. They have to be involved in the smoking cessation program or it will not succeed. In other words I cannot make someone quit smoking they have to want to quit smoking. I can give you Chantix and advice on the frzg-jnu-vsksogz nicotine systems and I would suggest to [...] WHEEZING OR COUGH 18 g 2 ??? HYDROcodone-acetaminophen ([place]) 5-325 MG tablet Take 1 (one) tablet by mouth every 4 hours asneeded for Pain Dx M50.30 120 tablet 0 ??? HYDROcodone-acetaminophen ([place]) 7.5-325 MG tablet Take 1 (one) tablet by mouth every 4 hours as needed for Pain Dx M50.30 120 tablet 0 ??? HYDROcodone-acetaminophen ([place]) 7.5-325 MG tablet Take 1 (one) tablet [...] ??? Cancer - Lung Mother EXAM BP 146/96 Pulse 91 Ht 1.803 m (5' 11 ) Wt 114.8 kg (253 lb) SpO2 94% BMI 35.29 kg/m?? General appearance - WM, wearing mask, no distress Neck- Supple and carotids have no bruits Chest - CTA Heart - normal rate, regular rhythm, normal S1, S2, no m/r/c/g Ext-no pretibial or pedal edema Skin-laceration on skull is healed completely Depression: PHQ-2:PHQ2 TOTAL SCORE: 0 PHQ-9: ASSESSMENT: ICD-10-CM 1. Chronic pain syndrome G89.4 SCAN ONLY HIS OPIOID MED AGREEMENT 2. Degeneration of cervical intervertebral disc M50.30 3. Smoker F17.200 4. Mixed hyperlipidemia E78.2 COMPREHENSIVE METABOLIC PANEL LIPID PROFILE 5. Elevated blood pressure reading R03.0 6. Degeneration of lumbar or lumbosacral intervertebral disc M51.37 SCAN ONLY HIS OPIOID MED AGREEMENT PLAN: Orders Placed This Encounter ??? COMPREHENSIVE METABOLIC PANEL Order Specific Question: Release to patient Answer: Immediate ??? LIPID PROFILE Order Specific Question: Release to patient Answer: Immediate ??? albuterol HFA (Proventil; Ventolin; Proair) 108 (90 Base) MCG/ACT inhaler Sig: INHALE 2 PUFFS BY MOUTH EVERY 4 HOURS NEEDED Dispense: 18 g Refill: 3 May substitute any brand of albuterol inhaler based on insurance/patient preference unless CHIVO selected. ??? HYDROcodone-acetaminophen ([place]) 5-325 MG tablet Sig: Take 1 (one) tablet by mouth every 4 hours as needed for Pain Dx M50.30 Dispense: 120 tablet Refill: 0 ??? HYDROcodone-acetaminophen ([place]) 7.5-325 MG tablet Sig: Take 1 (one) tablet by mouth every 4 hours as needed for Pain Dx M50.30 Dispense: 120 tablet Refill: 0 ??? HYDROcodone-acetaminophen ([place]) 7.5-325 MG tablet Sig: Take 1 (one) tablet by mouth every 4 hours as needed for Pain Dx M50.30 Dispense: 120 tablet Refill: 0 Goals ? ? Blood Pressure < 140/90 ??? Quit smoking / using tobacco Medications Discontinued During This Encounter Medication Reason ??? albuterol HFA (PROVENTIL; VENTOLIN; PROAIR) 108 (90 Base) MCG/ACT inhaler No Pharm No AVS ??? HYDROcodone-acetaminophen ([place]) 5-325 MG tablet No Pharm No AVS ??? HYDROcodone-acetaminophen ([place]) 7.5-325 MG tablet No Pharm No AVS ??? HYDROcodone-acetaminophen ([place]) 7.5-325 MG tablet No Pharm No AVS Current Outpatient Medications Medication Sig Dispense Refill ??? albuterol HFA (Proventil; Ventolin; Proair) 108 (90 Base) MCG/ACT inhaler INHALE 2 PUFFS BY MOUTH EVERY 4 HOURS NEEDED 18 g 3 ??? [START ON 08/17/2022] HYDROcodone-acetaminophen ([place]) 5-325 MG tablet Take 1 (one) tablet by mouth every 4 hours as needed for Pain Dx M50.30 120 tablet 0 ??? [START ON 07/23/2022] HYDROcodone-acetaminophen ([place]) 7.5-325 MG tablet Take 1 (one) tablet by mouth every 4 hours as needed for Pain Dx M50.30 120 tablet 0 ??? HYDROcodone-acetaminophen ([place]) 7.5-325 MG tablet Take 1 (one) tablet [...] METABOLIC PANEL Lab Routine Mixed hyperlipidemia Ordered: 06/27/2022 LIPID PROFILE Lab Routine Mixed hyperlipidemia Ordered: 06/27/2022 documented as of this encounter Goals Goal Patient Goal Type Associated Problems Recent Progress Patient-Stated? Author Blood Pressure < 140/90 Blood Pressure 172/93(2022 8:59 AM CDT) No Zachary Moreno Quit smoking / using tobacco Lifestyle No Puja Raymundo documented as of this encounter Procedures Procedure Name Priority Date/Time Associated Diagnosis Comments SCAN ONLY HIS OPIOID MED AGREEMENT 06/27/2022 Chronic pain syndrome Degeneration of lumbar or lumbosacral intervertebral disc documented in this encounter Results * SCAN ONLY HIS OPIOID MED AGREEMENT (06/27/2022) 06/27/2022 Narrative 06/27/2022 Ordered by an unspecified provider. Scanned Document SCANNING ONLY documented in this encounter Visit Diagnoses Diagnosis Chronic pain syndrome- Primary Degeneration of cervical intervertebral disc Smoker Tobacco use disorder Mixed hyperlipidemia Elevated blood pressure reading Elevated blood pressure reading without diagnosis of hypertension Degeneration of lumbar or lumbosacral intervertebral disc documented in this encounter Care Teams Pt Sitter Relationship Specialty Start Date End Date Alf Khan DO PCP - General Family Medicine 09/03/13 02/27/23 documented as of this encounter
--- OUTSIDE RECORDS SUMMARY | 2024-09-06 20:27 | XMS_ITS | Encounter Summary ---
Author Organization [facility] Address [address] [place] [address] Care Team Providers Care Transport Technician Name Role Phone Alf Khan DO Primary Care Provider Stephan rosa Reason for Visit * Reason Comments Refill Request Encounter Details Date Type Department Care Team (Late st Contact Info) Description 06/20/2020 Refill [facility] - Family Medicine [address] [place] [address] Alf Khan, DO Refill Request Social History Tobacco Use Types Packs/Day Years Used Date Smoking Tobacco: Every Day Cigarettes 1.5 25 Started: 12/07/1985; Last attempted to quit: 12/07/2010 Smokeless Tobacco: Never Alcohol Use Standard Drinks/Week Comments Yes 0 (1 standard drink = 0.6 oz pur e alcohol) social Sex and Gender Information Value Date Recorded Sex Assigned at Male 08/31/2020 7:44 AM REAL ESTATE TRANSACTION MANAGER Gender Identity Male 08/31/2020 7:44 AM REAL ESTATE TRANSACTION MANAGER Sexual Orientation Straight 08/31/2020 7: 44 AM REAL ESTATE TRANSACTION MANAGER documented as of this encounter Functional Status [...] Telephone Encounter - Uriel Marmolejo MA - 06/20/2020 10:57 AM CDT Requested Prescriptions Pending Prescriptions Disp Refills ??? albuterol HFA (PROVENTIL;VENTOLIN;PROAIR) 108 (90 Base) MCG/ACT inhaler [Pharmacy Med Name: ALBUTEROL HFA (PROAIR) INHALER] 8.5 Inhaler Sig: INHALE 2 PUFFS BY MOUTH EVERY 4 HOURS NEEDED FOR SHORTNESS OF BREATH, WHEEZING OR COUGH MARTÍNEZ: 06/01/20 NOV: none Last filled: 12/14/19 documented in this encounter Plan of Treatment Not on file documented as of this encounter Goals Goal Patient Goal Type Associated Problems Recent Progress Patient-Stated? Author Blood Pressure < 140/90 Blood Pressure 172/93(2022 8:59 AM CDT) No Zachary Moreno Quit smoking / using tobacco Lifestyle No Puja Raymundo documented as of this encounter Visit Diagnoses Not on filedocumented in this encounter Care Teams Transport Technician Relationship Specialty Start Date End Date Alf Khan DO PCP - General Family Medicine 09/03/13 02/27/23 documented as of this encounter
--- OUTSIDE RECORDS SUMMARY | 2024-09-06 20:27 | XMS_ITS | Encounter Summary ---
Author Organization [facility] Address [address] [place] [address] Care Team Providers Care Beveling And Edging Machine Operator Name Role Phone Alf Khan DO Primary Care Provider Stephan rosa Encounter Details Date Type Department Care Team (Latest Contact Info) Description 08/30/2020 Travel Social History Tobacco Use Types Packs/Day Years Used Date Smoking Tobacco: Every Day Cigarettes 1.5 25 Started: 12/07/1985; Last attempted to quit: 12/07/2010 Smokeless Tobacco: Never Alcohol Use Standard Drinks/Week Comments Yes 0 (1 standard drink = 0.6 oz pur e alcohol) social Sex and Gender Information Value Date Recorded Sex Assigned at Male 08/31/2020 7:44 AM GUSSET FOLDER Gender Identity Male 08/31/2020 7:44 AM GUSSET FOLDER Sexual Orientation Straight 08/31/2020 7: 44 AM GUSSET FOLDER COVID-19 Exposure Response Date Recorded In the last month, have you been in contact with someone who was confirmed or suspected to have Coronavirus / COVID-19? No / Unsure 08/25/2020 8:08 AM GUSSET FOLDER documented as of this encounter Functional Status [...] on filedocumented in this encounter Care Teams Beveling And Edging Machine Operator Relationship Specialty Start Date End Date Alf Khan DO PCP - General Family Medicine 09/03/13 02/27/23 documented as of this encounter
--- OUTSIDE RECORDS SUMMARY | 2024-09-06 20:27 | XMS_ITS | Encounter Summary ---
Author Organization [facility] Address [address] [place] [address] Care Team Providers Care Foot Piece Assembler Name Role Phone Alf Khan DO Primary Care Provider Stephan rosa Encounter Details Date Type Department Care Team (Latest Contact Info) Description 07/13/2021 Travel Social History Tobacco Use Types Packs/Day Years Used Date Smoking Tobacco: Every Day Cigarettes 1.5 25 Started: 12/07/1985; Last attempted to quit: 12/07/2010 Smokeless Tobacco: Never Alcohol Use Standard Drinks/Week Comments Yes 0 (1 standard drink = 0.6 oz pur e alcohol) social Sex and Gender Information Value Date Recorded Sex Assigned at Male 08/31/2020 7:44 AM BLEACH TESTER Gender Identity Male 08/31/2020 7:44 AM BLEACH TESTER Sexual Orientation Straight 08/31/2020 7: 44 AM BLEACH TESTER COVID-19 Exposure Response Date Recorded In the last month, have you been in contact with someone who was confirmed or suspected to have Coronavirus / COVID-19? No / Unsure 07/13/2021 9:06 AM BLEACH TESTER documented as of this encounter Functional Status [...] on filedocumented in this encounter Care Teams Foot Piece Assembler Relationship Specialty Start Date End Date Alf Khan DO PCP - General Family Medicine 09/03/13 02/27/23 documented as of this encounter
--- OUTSIDE RECORDS SUMMARY | 2024-09-06 20:28 | XMS_ITS | Encounter Summary ---
Author Organization [facility] Address [address] [place] [address] Care Team Providers Care Burglar Alarm Inspector Name Role Phone Alf Khan DO Primary Care Provider Stephan rosa Reason for Visit * Reason Onset Date Comments Medication Problem 05/22/2018 Encounter Details Date Type Department Care Team (Late st Contact Info) Description 05/22/2018 Telephone [facility] - Family Medicine [address] [place] [address] Alf Khan DO Medication Problem Social History Tobacco Use Types Packs/Day Years Used Date Smoking Tobacco: Every Day Cigarettes 1.5 25 Started: 12/07/1985; Last attempted to quit: 12/07/2010 Smokeless Tobacco: Never Alcohol Use Standard Drinks/Week Comments Yes 0 (1 standard drink = 0.6 oz pur e alcohol) social Sex and Gender Information Value Date Recorded Sex Assigned at Male 08/31/2020 7:44 AM MAINS AND 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 Last OV w/ PCP= 05/12/18. [facility] pharmacy only gave him a weeks worth of medication - 42 tablets on 05/12/18. I VERIFIED THIS WITH THE PHARMACY MYSELF. PT. Needs a new script from PCP for the remainder of the script. Send to [facility]. documented in this encounter Plan of Treatment Not on file documented as of this encounter Goals Goal Patient Goal Type Associated Problems Recent Progress Patient-Stated? Author Blood Pressure < 140/90 Blood Pressure 172/93(2022 8:59 AM CDT) No Zachary Moreno documented as of this encounter Visit Diagnoses Not on filedocumented in this encounter Care Teams Burglar Alarm Inspector Relationship Specialty Start Date End Date Alf Khan DO PCP - General Family Medicine 09/03/13 02/27/23 documented as of this encounter
--- OUTSIDE RECORDS SUMMARY | 2024-09-06 20:28 | XMS_ITS | Encounter Summary ---
Author Organization [facility] Address [address] [place] [address] Care Team Providers Care Plastic Extruding Machine Operator Name Role Phone Alf Khan DO Primary Care Provider Stephan rosa Reason for Visit * Reason Onset Date Comments Med Question 12/24/2018 Encounter Details Date Type Department Care Team (Late st Contact Info) Description 12/24/2018 Telephone 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 * Telephone Encounter - Alina Vidal - 12/24/2018 10:41 AM CDT Pt is at [facility] in [place], they are out of the hydrocodone until after 3 pm. Pt is requesting the prescription be sent to the [facility] on file. documented in this encounter Plan of Treatment Not on file documented as of this encounter Goals Goal Patient Goal Type Associated Problems Recent Progress Patient-Stated? Author Blood Pressure < 140/90 Blood Pressure 172/93(2022 8:59 AM CDT) No Zachary Moreno documented as of this encounter Visit Diagnoses Not on filedocumented in this encounter Care Teams Plastic Extruding Machine Operator Relationship Specialty Start Date End Date Alf Khan DO PCP - General Family Medicine 09/03/13 02/27/23 documented as of this encounter
--- OUTSIDE RECORDS SUMMARY | 2024-09-06 20:28 | XMS_ITS | Encounter Summary ---
Author Organization [facility] Health Address [address] [place] [address] Care Team Providers Care Safe Technician Name Role Phone Alf Khan DO Primary Care Provider Stephan rosa Reason for Visit * Reason Onset Date Comments MEDICATION REFILL 12/18/2017 Encounter Details Date Type Department Care Team (Late st Contact Info) Description 12/18/2017 Refill [facility] - Family Medicine [address] [place] [address] Yana Gupta MEDICATION REFILL Social History Tobacco Use Types Packs/Day Years Used Date Smoking Tobacco: Former Cigarettes 1.5 25 0 12/07/1985 - 12/07/2010 Smokeless Tobacco: Never Alcohol Use Standard Drinks/Week Comments Yes 0 (1 standard drink = 0.6 oz pur e alcohol) social Sex and Gender Information Value Date Recorded Sex Assigned at Male 08/31/2020 7:44 AM HELPDESK ANALYST Gender Identity Male 08/31/2020 7:44 AM HELPDESK ANALYST Sexual Orientation Straight 08/31/2020 7: 44 AM HELPDESK ANALYST documented as of this encounter Functional Status [...] encounter Miscellaneous Notes * Telephone Encounter - Yana Gupta - 12/18/2017 2:28 PM CDT Requested Prescriptions Pending Prescriptions Disp Refills ??? sildenafil (VIAGRA) 100 MG tablet 6 tablet Sig: Take 1 tablet by mouth once daily as needed Last refill 04/08/17 w/11 refills Last ov 11/19/17 documented in this encounter Plan of Treatment Not on file documented as of this encounter Goals Goal Patient Goal Type Associated Problems Recent Progress Patient-Stated? Author Blood Pressure < 140/90 Blood Pressure 172/93(2022 8:59 AM CDT) No Zachary Moreno documented as of this encounter Visit Diagnoses Not on filedocumented in this encounter Care Teams Safe Technician Relationship Specialty Start Date End Date Alf Khan DO PCP - General Family Medicine 09/03/13 02/27/23 documented as of this encounter
--- OUTSIDE RECORDS SUMMARY | 2024-09-06 20:28 | XMS_ITS | Encounter Summary ---
Author Organization [facility] Address [address] [place] [address] Care Team Providers Care Erisa Attorney Name Role Phone Alf Khan DO Primary Care Provider Stephan rosa Encounter Details Date Type Department Care Team (Latest Contact Info) Description 05/06/2020 Travel Social History Tobacco Use Types Packs/Day Years Used Date Smoking Tobacco: Every Day Cigarettes 1.5 25 Started: 12/07/1985; Last attempted to quit: 12/07/2010 Smokeless Tobacco: Never Alcohol Use Standard Drinks/Week Comments Yes 0 (1 standard drink = 0.6 oz pur e alcohol) social Sex and Gender Information Value Date Recorded Sex Assigned at Male 08/31/2020 7:44 AM ASSISTANT BROKER Gender Identity Male 08/31/2020 7:44 AM ASSISTANT BROKER Sexual Orientation Straight 08/31/2020 7: 44 AM ASSISTANT BROKER COVID-19 Exposure Response Date Recorded In the [...] on filedocumented in this encounter Care Teams Erisa Attorney Relationship Specialty Start Date End Date Alf Khan DO PCP - General Family Medicine 09/03/13 02/27/23 documented as of this encounter
--- OUTSIDE RECORDS SUMMARY | 2024-09-06 20:28 | XMS_ITS | Encounter Summary ---
Author Organization [facility] Address [address] [place] [address] Care Team Providers Care Detention Sergeant Name Role Phone Alf Khan DO Primary Care Provider Stephan rosa Reason for Visit * Reason Comments Follow-up pt in office for med ication follow up for norco Encounter Details Date Type Department Care Team (Latest Contact Info) Description 07/09/2019 4:30 PM PHOTOGRAMMETRIST Office Visit [facility] - Family Medicine [address] [place] [address] Alf Khan DO Degeneration of lumbar or lumbosacral intervertebral disc (Primary Dx); HTN (hypertension), benign; Spondylosis of cervical region without myelopathy or radiculopathy; Degeneration of cervical intervertebral disc Social History Tobacco Use Types Packs/Day Years Used Date Smoking Tobacco: Every Day Cigarettes 1.5 25 Started: 12/07/1985; Last attempted to quit: 12/07/2010 Smokeless Tobacco: Never Alcohol Use Standard Drinks/Week Comments Yes 0 (1 standard drink = 0.6 oz pur e alcohol) social Sex and Gender Information Value Date Recorded Sex Assigned at Male 08/31/2020 7:44 AM PHOTOGRAMMETRIST Gender Identity Male 08/31/2020 7:44 AM PHOTOGRAMMETRIST Sexual Orientation Straight 08/31/2020 7: 44 AM PHOTOGRAMMETRIST documented as of this encounter Last Filed Vital Signs Vital Sign Reading Time Taken Comments Blood Pressure 142/78 07/09/2019 4:47 PM PHOTOGRAMMETRIST Pulse 90 07/09/2019 4:47 PM PHOTOGRAMMETRIST Temperature 36.9 ??C (98.4 ??F) 07/09/2019 4:47 PM CS T Respiratory Rate - - Oxygen Saturation 97% 07/09/2019 4:47 PM PHOTOGRAMMETRIST Inhaled Oxygen Concentration - - Weight 107.5 kg (237 lb) 07/09/2019 4:47 PM PHOTOGRAMMETRIST Height 180.3 cm (5' 11 ) 07/09/2019 4:47 PM PHOTOGRAMMETRIST Body Mass Index 33.05 07/09/2019 4:47 PM PHOTOGRAMMETRIST documented in this encounter Functional Status Functional [...] encounter Progress Notes * Alf Khan, - 07/09/2019 4:57 PM CST Office Visit, Established Patient, [id number] HISTORY: SYDNEE Doughertydominique Crockett is a 53 year old male patient, here for: Chief Complaint Patient presents with ??? Follow-up pt in office for medication follow up for norco HPI: Back pain 5-6/10 right now w/o pain med. Pain level worst 7-8/10, sharper pain and burning in back and sometimes in neck as well. If takes pain meds goes < 3/10, No SE to pain Rx he has that pain is well and he has disc disease in his back and he has had a pain pills chronically for awhile now. 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 amoxicillin (AMOXIL) 875 MG tablet Take 1 tablet by mouth every 12 hours (Patient not taking: Reported on 07/09/2019) 20 tablet 1 ??? HYDROcodone-acetaminophen (NORCO) 5-325 MG tablet Take 1 tablet by mouth every 4 hours as needed for Pain Dx M50.30 55 tablet 0 ??? HYDROcodone-acetaminophen (NORCO) 7.5-325 MG tablet Take 1 tablet by mouth every 4 hours as needed for Pain Dx M50.30 120 tablet 0 ??? HYDROcodone-acetaminophen (NORCO) 7.5-325 MG tablet Take 1 tablet by mouth every 4 hours as needed for Pain Dx M50.30 120 tablet 0 ??? predniSONE (DELTASONE) 10 MG tablet 4 qd x 2 days, pc then 1 less pill every 2 days until gone (Patient not taking: Reported on 07/09/2019) 20 tablet 0 ??? sildenafil (REVATIO) 20 MG tablet TAKE 5 TABLETS BY MOUTH ONCE DAILY NEEDED 30 tablet 11 ??? triamcinolone acetonide (KENALOG) 0.1 % cream Apply to affected area 3 times daily (Patient nottaking: Reported on 04/23/2019) 453.6 g 2 No facility-administered medications prior to visit. PFSH, other pertinent history: Allergies Allergen Reactions ??? Perry Inhibitors Cough ??? Zithromax [Azithromycin] Itching Social History Smoking status: Current Every Day Smoker Packs/day: 1.50 Years: 25.00 Last attempt to quit: 12/07/2010 Smokeless tobacco: Never Used Alcohol use: Yes 0.0 standard drinks/week Comment: social Drug use: No Sexual activity: Not on file Family History Problem Relation Age of Onset ??? Cancer - Lung Mother EXAM BP 142/78 Pulse 90 Temp 98.4 ??F (36.9 ??C) Ht 1.803 m (5' 11 ) Wt 107.5 kg (237 lb) VaT617% BMI 33.05 kg/m?? General appearance - alert, in no acute distress Neck- no anterior cervical adenopathy, carotids have no bruits Chest - CTA Heart - normal rate, regular rhythm, normal S1, S2, no murmurs, rubs, clicks or gallops Ext-no pretibial or pedal edema, no neurovascular deficits seen in the upper or lower extremities Back- patient has a near full range of motion complaints of pain with ends of range of motion. SLR is negative Skin- no visible rashes Depression: PHQ-2: PHQ-9: ASSESSMENT: ICD-10-CM 1. HTN (hypertension), benign I10 2. Spondylosis of cervical region without myelopathy or radiculopathy M47.812 3. Degeneration of lumbar or lumbosacral intervertebral disc M51.37 4. Degeneration of cervical intervertebral disc M50.30 PLAN: Orders Placed This Encounter ??? sildenafil (REVATIO) 20 MG tablet Sig: TAKE 3- 5 TABLETS prn sex Dispense: 100 tablet Refill: 11 ??? HYDROcodone-acetaminophen (NORCO) 7.5-325 MG tablet Sig: [...] RX do NOT DELETE ??? HYDROcodone-acetaminophen (NORCO) 5-325 MG tablet Sig: Take 1 tablet by mouth every 4 hours as needed for Pain Dx M50.30 Dispense: 120 tablet Refill: 0 Goals ? ? Blood Pressure < 140/90 ??? Quit smoking / using tobacco Medications Discontinued During This Encounter Medication Reason ??? sildenafil (REVATIO) 20 MG tablet Reorder ??? HYDROcodone-acetaminophen (NORCO) 7.5-325 MG tablet Reorder ??? HYDROcodone-acetaminophen (NORCO) 7.5-325 MG tablet Reorder ??? HYDROcodone-acetaminophen (NORCO) 5-325 MG tablet Reorder Current Outpatient Medications Medication Sig Dispense Refill ??? albuterol HFA (PROVENTIL;VENTOLIN;PROAIR) 108 (90 Base) MCG/ACT inhaler Inhale 2 puffs by mouthevery 4 hours as needed for Shortness of Breath, Wheezing or Cough 1 Inhaler 2 ??? amoxicillin (AMOXIL) 875 MG tablet Take 1 tablet by mouth every 12 hours (Patient not taking: Reported on 07/09/2019) 20 tablet 1 ??? HYDROcodone-acetaminophen (NORCO) 5-325 MG tablet Take 1 tablet by mouth every 4 hours as needed for Pain Dx M50.30 120 tablet 0 ??? [START ON 08/29/2019] HYDROcodone-acetaminophen (NORCO) 7.5-325 MG tablet Take 1 tablet by mouth every 4 hours as needed for Pain Dx M50.30 120 tablet 0 ??? HYDROcodone-acetaminophen (NORCO) 7.5-325 MG tablet Take 1 tablet by mouth every 4 hours as needed for Pain Dx M50.30 120 tablet 0 ??? predniSONE (DELTASONE) 10 MG tablet 4 qd x 2 days, pc then 1 less pill every 2 days until gone (Patient not taking: Reported on 07/09/2019) 20 tablet 0 ??? sildenafil (REVATIO) 20 MG tablet TAKE 3- 5 TABLETS prn sex 100 tablet 11 ??? triamcinolone acetonide (KENALOG) 0.1 % cream Apply to affected area 3 times daily (Patient nottaking: Reported on 04/23/2019) 453.6 g 2 No current facility-administered medications for this visit. refill pain medicine for 90 days, his pain pill uses is escalated recently and were going to have to get a urine drug screen on him. He already has a pain agreement signed Continue blood pressure treatment as is Continue all other treatment as is SE of meds discussed with patient and best way to take medication. All questions answered. Safe use and storage of controlled meds reviewed with pt again today Return to office in 3 months. Patient instructed to call with any concerns or problems. OGRAMMETRIST documented in this encounter Plan of Treatment Not on file documented as of this encounter Goals Goal Patient Goal Type Associated Problems Recent Progress Patient-Stated? Author Blood Pressure < 140/90 Blood Pressure 172/93(2022 8:59 AM CDT) Zachary Funez Quit smoking / using tobacco Lifestyle No Puja Raymundo documented as of this encounter Visit Diagnoses Diagnosis Degeneration of lumbar or lumbosacral intervertebral disc- Primary HTN (hypertension), benign Essential hypertension, benign Spondylosis of cervical region without myelopathy or radiculopathy Cervical spondylosis without myelopathy Degeneration of cervical intervertebral disc documented in this encounter Care Teams Detention Sergeant Relationship Specialty Start Date End Date Alf Khan DO PCP - General Family Medicine 09/03/13 02/27/23 documented as of this encounter
--- OUTSIDE RECORDS SUMMARY | 2024-09-06 20:28 | XMS_ITS | Encounter Summary ---
Author Organization [facility] Address [address] [place] [address] Care Team Providers Care Strike Out Machine Operator Name Role Phone Alf Khan DO Primary Care Provider Stephan rosa Reason for Visit * Reason Comments Pain Back pt c/o ongoing pinch nerve that's causing back pain Medication Check pharmacy confirmed w ith pt Encounter Details Date Type Department Care Team (Late st Contact Info) Description 11/19/2017 2:00 PM CDT Office Visit [facility] - Family Medicine [address] [place] [address] Alf Khan DO Cervical stenosis of spine (Primary Dx); DJD (degenerative joint disease), cervical; Radicular pain in left arm; HTN (hypertension), benign; Glucose intolerance (impaired glucose tolerance); Intermittent asthma, unspecified asthma severity, unspecified whether complicated (HCC) Social History Tobacco Use Types Packs/Day Years Used Date Smoking Tobacco: Former Cigarettes 1.5 25 0 12/07/1985 - 12/07/2010 Smokeless Tobacco: Never Alcohol Use Standard Drinks/Week Comments Yes 0 (1 standard drink = 0.6 oz pur e alcohol) social Sex and Gender Information Value Date Recorded Sex Assigned at Male 08/31/2020 7:44 AM DIRECTOR OF SEARCH ENGINE MARKETING Gender Identity Male 08/31/2020 7:44 AM DIRECTOR OF SEARCH ENGINE MARKETING Sexual Orientation Straight 08/31/2020 7: 44 AM DIRECTOR OF SEARCH ENGINE MARKETING documented as of this encounter Last Filed Vital Signs Vital Sign Reading Time Taken Comments Blood Pressure 140/86 11/19/2017 2:02 PM CDT Pulse 84 11/19/2017 2:02 PM CDT Temperature 37 ??C (98.6 ??F) 11/19/2017 2:02 PM CDT Respiratory Rate - - Oxygen Saturation 98% 11/19/2017 2:02 PM CDT Inhaled Oxygen Concentration - - Weight 101.6 kg (224 lb) 11/19/2017 2:02 PM CDT Height 180.3 cm (5' 11 ) 11/19/2017 2:02 PM CDT Body Mass Index 31.24 11/19/2017 2:02 PM CDT documented in this encounter Functional [...] No 04/15/2014 documented as of this encounter Patient Instructions * Patient Instructions* Yi Raymundowillem R - 11/19/2017 2:02 PM CDT Caring for Your High Blood Pressure Medications ??? Keep a written list of what medicines you are taking and when you take them. Bring the list of your medicines or the pill bottles when you see your provider. Learn why you take each medicine. Askyour provider or pharmacist for information about your medicines. ??? Do not take wnle-jga-ebtaciv medicine or herbal supplements without talking to your provider. Some of these medicines may raise your blood pressure. ??? You may need to have your medicine or the dose changed many times before it is right for you. It may take weeks for your body to adjust to your blood pressure medicine. Be patient and do not stoptaking your medicine, even if you have side effects or are feeling fine. Let your provider know about any side affects you have concerns about. Where can I go for more information? [employer] [facility] [employer] [facility]: http://www.americanheart.org 1. In the top header, click ???Conditions?? . 2. In the top header, click ???high blood pressure.?? 3. For a printable blood pressure tracker, scroll toward the bottom of the page to Related Tools, and click ???HBP Trackers.?? 6-579-XFP-USA-1 or ( ) National Heart, Lung and Blood [place]: http://www.nhlbi.nih.gov/health/infoctr/index.htm documented in this encounter Progress Notes * Puja Raymundo - 11/19/2017 2:39 PM CDT Depo medrol 80mg 1ml Im given with dexamethasone 4mg 1ml Imleft deltoid by jonas * Alf Khan DO - 11/19/2017 2:17 PM CDT Office Visit, Established Patient, [id number] HISTORY: CC Trenton Crockett is a 51 y.o. male patient, here for: Chief Complaint Patient presents with ??? Pain Back pt c/o ongoing pinch nerve that's causing back pain ??? Medication Check pharmacy confirmed with pt HPI: Insidious onset of upper back pain and about 4 weeks ago noticed pain down left to below elbow. 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 The T-1/2 level appears normal in axial projection. Addended by: Lilliam Morris on 04/25/2009 1:25 PM ? STUDY TEXT ? INDICATION: Cervical radiculopathy to right arm. ? TECHNIQUE: The following sequences were obtained: Sagittal T1 and T2, axial T2 volume, axial gradient-echo. ? COMPARISON: Radiographic examination of cervical spine March 31, 2009. ? FINDINGS Alignment: There is loss of the normal cervical lordosis. This is a nonspecific finding which may be secondary to muscle spasm or patient positioning. ? Spinal Cord: Appears displaced by disc and osteophyte from C3-C4 through C6-C7. No definite abnormal signal is seen within the cervical spinal cord. ? Marrow: Within normal limits. ? Intervertebral Discs: Mild disc space narrowing is present at C4-C5 and C6-C7 with moderate disc space narrowing at C5-C6. Posterior disc and osteophyte are present from C3-C4 through C6-C7. ? The following levels were directly imaged in the axial plane: ? C2-C3: Normal. ? C3-C4: Disc and osteophyte efface the ventral CSF space but do not result in significant stenosis. The right neural foramen is minimally narrowed secondary to uncovertebral osteophytosis. ? C4-C5: Disc and osteophyte eccentric to the right contact the cervical spinal cord and result in a mild central canal stenosis. Neural foramina appear patent. ? C5-C6: Disc and osteophyte contact the cervical spinal cord, resulting in a moderate central canal stenosis. Left neural foramen is mildly narrowed and the right mild to moderately narrowed secondary to uncovertebral osteophytosis. ? C6-C7: Disc herniation eccentric to the left contacts and rotates the cervical spinal cord with a mild central canal stenosis. This results in a moderate to severe proximal left neural foraminal stenosis . Mild right neural foraminal stenosis is due to uncovertebral osteophytosis. ? C7-T1: No significant stenosis is appreciated. ? C7-T1: Normal. ? IMPRESSION Disc herniation and osteophytic ridge from C3-C4 through C6-C7 is most significant at C5-C6 where a moderate central canal stenosis results, and at C6-C7 where a moderate to severe proximal left neural foraminal stenosis results. Signed by: Lilliam Morris on 04/25/2009 1:25 PM He has had pain pills in the past and no issues for a while and he has not needed these Breathing is good albuterol prn no breathing issues and cont as is He just had all labs done for metabolic syndrom and were good will re visit when not a pain visit Denies CP or SOB. Wt Readings from Last 3 Encounters: 11/19/17 101.6 kg (224 lb) 09/05/17 105.7 kg (233 lb) 09/05/17 105.2 kg (232 lb) Patient Active Problem List Diagnosis Date Noted ??? Perirectal abscess 09/05/2017 Priority: Not Prioritized [...] Refill ??? albuterol HFA (PROVENTIL;VENTOLIN;PROAIR) 108 (90 BASE) MCG/ACT inhaler Inhale 2 Puffs by mouthevery 4 hours as needed for Shortness of Breath, Wheezing or Cough 1 Inhaler 0 ??? albuterol HFA (PROAIR HFA) 108 (90 BASE) MCG/ACT inhaler Inhale 2 Puffs by mouth every 6 hours as needed Reported on 07/31/2016 ??? HYDROcodone-acetaminophen (NORCO) 5-325 MG tablet Take 1 tablet by mouth every 4 hours as needed for Pain (Patient not taking: Reported on 11/19/2017) 30 tablet 0 ??? doxycycline hyclate (VIBRAMYCIN) 100 MG capsule Take 1 capsule by mouth 2 times daily (Patient not taking: Reported on 11/19/2017) 14 capsule 0 ??? HYDROcodone-acetaminophen (NORCO) 7.5-325 MG tablet Take 1 tablet by mouth every 4 hours as needed for Pain 120 tablet 0 ??? sildenafil (VIAGRA) 100 MG tablet Take 1 Tab by mouth once daily as needed (Patient not taking:Reported on 11/19/2017) 6 Tab 11 No facility-administered medications prior to visit. PFSH, other pertinent history: Allergies Allergen Reactions ??? Perry Inhibitors Cough Social History Smoking status: Former Smoker Packs/day: 1.50 Years: 25.00 Quit date: 12/07/2010 Smokeless status: Never Used Alcohol use: Yes 0.0 oz/week 0 Standard drinks or equivalent per week Comment: social Drug use: No Sexual activity: Not on file Family History Problem Relation Age of Onset ??? Cancer - Lung Mother EXAM BP 140/86 Pulse 84 Temp 98.6 ??F Wt 101.6 kg (224 lb) SpO2 98% BMI 31.24 kg/m2 FiO2: General appearance - alert, well appearing, and in no distress and oriented to person, place, and time Neck - supple, no significant adenopathy, carotids upstroke normal bilaterally, no bruits, thyroid exam: thyroid is normal in size without nodules or tenderness Chest - clear to auscultation, no wheezes, rales or rhonchi, symmetric air entry Heart - normal rate, regular rhythm, normal S1, S2, no murmurs, rubs, clicks or gallops Abdomen - soft, nontender, nondistended, no masses or organomegaly no rebound tenderness noted bowel sounds normal Back exam - limited range of motion, pain with motion noted during exam, tenderness noted across lower back and SI region Neurological - alert, oriented, normal speech, no focal findings or movement disorder noted, DTR's normal and symmetric. MS 5/5 in Ue and DTR normal UE 2/4 Musculoskeletal - no joint tenderness, deformity or swelling Extremities - peripheral pulses normal, no pedal edema, no clubbing or cyanosis Depression: PHQ-2:TOTAL POINT SCORE: 0 PHQ-9: ASSESSMENT: ICD-10-CM 1. Cervical stenosis of spine M48.02 2. DJD (degenerative joint disease), cervical M50.30 3. Radicular pain in left arm M79.2 PLAN: Orders Placed This Encounter ??? HYDROcodone-acetaminophen (NORCO) 7.5-325 MG tablet Sig: Take 1 tablet by mouth every 4 hours as needed for Pain Dispense: 120 tablet Refill: 0 ??? methylPREDNISolone acetate (DEPO-Medrol) injection 80 mg ??? dexamethasone (DECADRON) injection 4 mg ??? HYDROcodone-acetaminophen (NORCO) 7.5-325 MG tablet Sig: Take 1 tablet by mouth every 4 hours as needed for Pain Dispense: 120 tablet Refill: 0 Has post dated Rx do not delete Goals ? ? Blood Pressure < 140/90 Medications Discontinued During This Encounter Medication Reason ??? doxycycline hyclate (VIBRAMYCIN) 100 MG capsule Completed previously ??? HYDROcodone-acetaminophen (NORCO) 7.5-325 MG tablet Reorder ??? sildenafil (VIAGRA) 100 MG tablet Completed previously Current Outpatient Prescriptions Medication Sig Dispense Refill ??? sildenafil (REVATIO) 20 MG tablet TAKE 5 TABLETS BY MOUTH ONCE DAILY NEEDED 11 ??? HYDROcodone-acetaminophen (NORCO) 7.5-325 MG tablet Take 1 tablet by mouth every 4 hours as needed for Pain 120 tablet 0 ??? [START ON 12/28/2017] HYDROcodone-acetaminophen (NORCO) 7.5-325 MG tablet Take 1 tablet by mouth every 4 hours as needed for Pain 120 tablet 0 ??? albuterol HFA (PROVENTIL;VENTOLIN;PROAIR) 108 (90 BASE) MCG/ACT inhaler Inhale 2 Puffs by mouthevery 4 hours as needed for Shortness of Breath, Wheezing or Cough 1 Inhaler 0 ??? albuterol HFA (PROAIR HFA) 108 (90 BASE) MCG/ACT inhaler Inhale 2 Puffs by mouth every 6 hours as needed Reported on 07/31/2016 ??? HYDROcodone-acetaminophen (NORCO) 5-325 MG tablet Take 1 tablet by mouth every 4 hours as needed for Pain (Patient not taking: Reported on 11/19/2017) 30 tablet 0 No current facility-administered medications for this visit. Got 2 Rx for pain med Offered PT and kendrick shah and he just wants to see if it will calm down with cortisone inj SE of meds discussed with patient and [...] as of this encounter Visit Diagnoses Diagnosis Cervical stenosis of spine- Primary Spinal stenosis in cervical region DJD (degenerative joint disease), cervical Degeneration of cervical intervertebral disc Radicular pain in left arm Neuralgia, neuritis, and radiculitis, unspecified HTN (hypertension), benign Essential hypertension, benign Glucose intolerance (impaired glucose tolerance) Impaired glucose tolerance test Intermittent asthma, unspecified asthma severity, unspecified whether complicated (HCC) documented in this encounter Administered Medications Inactive Administered Medications - up to 3 most recent administrations Medication Order MAR Action Action Date Dose Rate Site dexamethasone (DECADRON) injection 4 mg 4 mg, Intra-articular, ONCE, 1 dose, On Sat11/19/17 at 1445 $ Given 11/19/2017 2:38 PM CDT 4 mg Le ft Deltoid methylPREDNISolone acetate (DEPO-Medrol) injection 80 mg 80 mg, Intramuscular, ONCE, 1 dose, On Sat11/19/17 at 1445 $ Given 11/19/2017 2:38 PM CDT 80 mg Left Deltoid documented in this encounter Care Teams Strike Out Machine Operator Relationship Specialty Start Date End Date Alf Khan DO PCP - General Family Medicine 09/03/13 02/27/23 documented as of this encounter
--- OUTSIDE RECORDS SUMMARY | 2024-09-06 20:28 | XMS_ITS | Encounter Summary ---
Author Organization [facility] Address [address] [place] [address] Care Team Providers Care Vocational Rehabilitation Counselor Name Role Phone Alf Khan DO Primary Care Provider Stephan rosa Reason for Visit * Reason Comments Refill Request Encounter Details Date Type Department Care Team (Late st Contact Info) Description 10/19/[address] 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 valsartan (DIOVAN) 160 MG tablet [Pharmacy Med Name: VALSARTAN 160MG TABLETS] 30 Tab 6 Sig: TAKE 1 TABLET BY MOUTH EVERY DAY MARTÍNEZ 10/13/15 Y MORNING BABYSITTER documented in this encounter Plan of Treatment Not on file documented as of this encounter Goals Goal Patient Goal Type Associated Problems Recent Progress Patient-Stated? Author Blood Pressure < 140/90 Blood Pressure 172/93(2022 8:59 AM CDT) No Zachary Moreno documented as of this encounter Visit Diagnoses Not on filedocumented in this encounter Care Teams Vocational Rehabilitation Counselor Relationship Specialty Start Date End Date Alf Khan DO PCP - General Family Medicine 09/03/13 02/27/23 documented as of this encounter
--- OUTSIDE RECORDS SUMMARY | 2024-09-06 20:28 | XMS_ITS | Encounter Summary ---
Author Organization [facility] Address [address] [place] [address] Care Team Providers Care Environmental Planning Engineer Name Role Phone Alf Khan DO Primary Care Provider Stephan rosa Reason for Visit * Reason Onset Date Comments Medication Check 04/12/2017 Update 04/12/2017 Encounter Details Date Type Department Care Team (Late st Contact Info) Description 04/12/2017 Telephone [facility] - Family Medicine [address] [place] [address] Alf Khan, Medication Check; Update Social History Tobacco Use Types Packs/Day Years Used Date Smoking Tobacco: Former Cigarettes 1.5 25 0 12/07/1985 - 12/07/2010 Smokeless Tobacco: Never Alcohol Use Standard Drinks/Week Comments Yes 0 (1 standard drink = 0.6 oz pur e alcohol) social Sex and Gender Information Value Date Recorded Sex Assigned at Male 08/31/2020 7:44 AM SURGICAL TECHNOLOGY INSTRUCTOR Gender Identity Male 08/31/2020 7:44 AM SURGICAL TECHNOLOGY INSTRUCTOR Sexual Orientation Straight 08/31/2020 7: 44 AM SURGICAL TECHNOLOGY INSTRUCTOR documented as of this encounter Functional Status [...] encounter Miscellaneous Notes * Telephone Encounter - Yanely Todd - 04/12/2017 1:36 PM CDT Called pharmacy and keep getting a busy tone, called 5 times still busy tone will contact later * Telephone Encounter - Ana Peters - 04/12/2017 11:52 AM CDT Patient calls stating the pharmacy told his PCP directions were unsafe. Patient calls requesting PCP confirm directions are take 5 tabs 3 times a day on sildenafil (REVATIO) 20 MG tablet . Patient states pharmacy told him directions should read take 5 tabs once a day to equal 100 mg. Daily. Patient states this is the only problem the pharmacy gave him for not filling medication. Patient has been waiting 3 days and is requesting office personal contact pharmacy. * Telephone Encounter - Alf Khan DO - 04/12/2017 11:39 AM CDT What is the problem they talked him into getting this Rx and now they do not like my directions? If they want them changed tell me what the directions are and what they do not like I do not have time to play guessing games with them * Telephone Encounter - Mariel Marie - 04/12/2017 9:11 AM CDT Pharmacy need clarification on the dosing of sildenafil (REVATIO) 20 MG tablet for pt. Mariel Marie 04/12/2017 9:11 AM documented in this encounter Plan of Treatment Not on file documented as of this encounter Goals Goal Patient Goal Type Associated Problems Recent Progress Patient-Stated? Author Blood Pressure < 140/90 Blood Pressure 172/93(2022 8:59 AM CDT) No Zachary Moreno documented as of this encounter Visit Diagnoses Not on filedocumented in this encounter Care Teams Environmental Planning Engineer Relationship Specialty Start Date End Date Alf Khan DO PCP - General Family Medicine 09/03/13 02/27/23 documented as of this encounter
--- OUTSIDE RECORDS SUMMARY | 2024-09-06 20:28 | XMS_ITS | Encounter Summary ---
Author Organization [facility] Address [address] [place] [address] Care Team Providers Care Bandoleer Straightener Stamper Name Role Phone Alf Khan DO Primary Care Provider Stephan rosa Reason for Visit * Reason Onset Date Comments Medication Prior Auth Request 04/26/2017 Encounter Details Date Type Department Care Team (Late st Contact Info) Description 04/26/2017 Telephone [facility] - Family Medicine [address] [place] [address] Alf Khan, DO Medication Prior Auth Request Social History Tobacco Use Types Packs/Day Years Used Date Smoking Tobacco: Former Cigarettes 1.5 25 0 12/07/1985 - 12/07/2010 Smokeless Tobacco: Never Alcohol Use Standard Drinks/Week Comments Yes 0 (1 standard drink = 0.6 oz pur e alcohol) social Sex and Gender Information Value Date Recorded Sex Assigned at Male 08/31/2020 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 We do not do pa's for this medication so the patient needs to pay out of pocket. Informed pharmacy per Jazmin. documented in this encounter Plan of Treatment Not on file documented as of this encounter Goals Goal Patient Goal Type Associated Problems Recent Progress Patient-Stated? Author Blood Pressure < 140/90 Blood Pressure 172/93(2022 8:59 AM CDT) No Zachary Moreno documented as of this encounter Visit Diagnoses Not on filedocumented in this encounter Care Teams Bandoleer Straightener Stamper Relationship Specialty Start Date End Date Alf Khan DO PCP - General Family Medicine 09/03/13 02/27/23 documented as of this encounter
--- OUTSIDE RECORDS SUMMARY | 2024-09-06 20:28 | XMS_ITS | Encounter Summary ---
Author Organization [facility] Address [address] [place] [address] Care Team Providers Care Sand Car Worker Name Role Phone Alf Khan DO Primary Care Provider Stephan rosa Reason for Visit * Reason Comments MEDICATION REFILL med refills for back pain Medication Check pharmacy confirmed Encounter Details Date Type Department Care Team (Latest Contact Info) Description 09/29/2019 1:45 PM JEWEL BEARING GRINDER Office Visit [facility] - Family Medicine [address] [place] [address] Alf Khan DO Degeneration of cervical intervertebral disc (Primary Dx); HTN (hypertension), benign; Degeneration of lumbar or lumbosacral intervertebral disc; Metabolic syndrome; Mixed hyperlipidemia; Smoker; Thoracic spine pain Social History Tobacco Use Types Packs/Day Years Used Date Smoking Tobacco: Every Day Cigarettes 1.5 25 Started: 12/07/1985; Last attempted to quit: 12/07/2010 Smokeless Tobacco: Never Tobacco Cessation:Ready to Q uit: No; Counseling Given: Yes Alcohol Use Standard Drinks/Week Comments Yes 0 (1 standard drink = 0.6 oz pur e alcohol) social Sex and Gender Information Value Date Recorded Sex Assigned at Male 08/31/2020 7:44 AM JEWEL BEARING GRINDER Gender Identity Male 08/31/2020 7:44 AM JEWEL BEARING GRINDER Sexual Orientation Straight 08/31/2020 7: 44 AM JEWEL BEARING GRINDER documented as of this encounter Last Filed Vital Signs Vital Sign Reading Time Taken Comments Blood Pressure 144/86 09/29/2019 2:06 PM JEWEL BEARING GRINDER Pulse 93 09/29/2019 1:50 PM JEWEL BEARING GRINDER Temperature 36.7 ??C (98.1 ??F) 09/29/2019 1:50 PM CS T Respiratory Rate - - Oxygen Saturation 96% 09/29/2019 1:50 PM JEWEL BEARING GRINDER Inhaled Oxygen Concentration - - Weight 110.2 kg (243 lb) 09/29/2019 1:50 PM JEWEL BEARING GRINDER Height 180.3 cm (5' 11 ) 09/29/2019 1:50 PM JEWEL BEARING GRINDER Body Mass Index 33.89 09/29/2019 1:50 PM JEWEL BEARING GRINDER documented in this encounter Functional Status Functional [...] Progress Notes * Alf Khan, DO - 09/29/2019 2:03 PM CST Office Visit, Established Patient, [id number] HISTORY: SYDNEE Doughertydominique Crockett is a 53 year old male patient, here for: Chief Complaint Patient presents with ??? MEDICATION REFILL med refills for back pain ??? Medication Check pharmacy confirmed HPI: Back pain 5-6/10 right now w/o pain med. Pain level worst 7-8/10, sharper pain and burning in back and sometimes in neck as well. If takes pain meds goes < 3/10, No SE to pain Rx. He is here to get refilled pain medicine his uses escalated so his blood pressure is high normal today we want to along speal again about how he took lisinopril in the past. He says he just gets anxious and shoots it up and he smoking still in so I told him lifestyle changes the treatment at this point anyhow do not smoke healthy lifestyle changes. Discussed the following things about smoking with patient. Counseled the patient on smoking cessation, Chantix,[id number] nicotine replacement systems patches and gums. Told them the risks of smoking include lung cancer, bladder cancer, COPD, mi and stroke. They have to be involved in the smoking cessation program or it will not succeed. In other words I cannot make someone quit smoking they have to want to quit smoking. I can give you Chantix and advice on the lxvt-xli-jkqaile nicotine systems and I would suggest to attempt to quit smoking as soon as you can. BP Readings from Last 3 Encounters: 09/29/19 144/86 07/09/19 142/78 04/23/19 135/80 metabolic syndrome -patient does have insurance right now and he refuses get labs done still he haslost weight he believes everything is okay does not mind look into this any further that at this point no CP or SOB Patient Active Problem [...] ??? Cancer - Lung Mother EXAM BP 144/86 Pulse 93 Temp 98.1 ??F (36.7 ??C) Ht 1.803 m (5' 11 ) Wt 110.2 kg (243 lb) [id number]% BMI 33.89 kg/m?? General appearance - alert, in no [...] is negative Skin- no visible rashes Depression: PHQ-2:TOTAL POINT SCORE: 0 PHQ-9: ASSESSMENT: ICD-10-CM 1. Degeneration of cervical intervertebral disc M50.30 2. HTN (hypertension), benign I10 3. Degeneration of lumbar or lumbosacral intervertebral disc M51.37 4. Metabolic syndrome E88.81 5. Mixed hyperlipidemia E78.2 6. Smoker F17.200 7. Thoracic spine pain M54.6 PLAN: Orders Placed This Encounter ??? HYDROcodone-acetaminophen [...] Discontinued During This Encounter Medication Reason ??? amoxicillin (AMOXIL) 875 MG tablet Include AVS ??? predniSONE (DELTASONE) 10 MG tablet Include AVS ??? triamcinolone acetonide (KENALOG) 0.1 % cream Include AVS ??? HYDROcodone-acetaminophen (NORCO) 5-325 MG tablet Reorder ??? HYDROcodone-acetaminophen (NORCO) 7.5-325 MG tablet Reorder ??? HYDROcodone-acetaminophen (NORCO) 7.5-325 MG tablet Reorder Current Outpatient Medications Medication Sig Dispense Refill ??? albuterol HFA (PROVENTIL;VENTOLIN;PROAIR) 108 (90 Base) MCG/ACT inhaler Inhale 2 puffs by mouthevery 4 hours as needed for Shortness of Breath, Wheezing or Cough 1 Inhaler 2 ??? [START ON 11/18/2019] HYDROcodone-acetaminophen (NORCO) 5-325 MG tablet Take 1 tablet by mouth every 4 hours as needed for Pain Dx M50.30 120 tablet 0 ??? [START ON 10/24/2019] HYDROcodone-acetaminophen (NORCO) 7.5-325 MG tablet Take 1 [...] were going to have to get a Continue blood pressure treatment is working on lifestyle changes GF in hospital Continue all other treatment as is SE of meds discussed with patient and best way to take medication. All questions answered. Safe use and storage of controlled meds reviewed with pt again today Return to office in 3 months. Patient instructed to call with any concerns or problems. L BEARING GRINDER documented in this encounter Plan of Treatment Not on file documented as of this encounter Goals Goal Patient Goal Type Associated Problems Recent Progress Patient-Stated? Author Blood Pressure < 140/90 Blood Pressure 172/93(2022 8:59 AM CDT) No Zachary Moreno Quit smoking / using tobacco Lifestyle No Puja Raymundo documented as of this encounter Visit Diagnoses Diagnosis Degeneration of cervical intervertebral disc- Primary HTN (hypertension), benign Essential hypertension, benign Degeneration of lumbar or lumbosacral intervertebral disc Metabolic syndrome Dysmetabolic Syndrome X Mixed hyperlipidemia Smoker Tobacco use disorder Thoracic spine pain Pain in thoracic spine documented in this encounter Care Teams Sand Car Worker Relationship Specialty Start Date End Date Alf Khan DO PCP - General Family Medicine 09/03/13 02/27/23 documented as of this encounter
--- OUTSIDE RECORDS SUMMARY | 2024-09-06 20:28 | XMS_ITS | Encounter Summary ---
Author Organization [facility] Address [address] [place] [address] Care Team Providers Care Swatch Cutter Name Role Phone Alf Khan DO Primary Care Provider Stephan rosa Encounter Details Date Type Department Care Team (Latest Contact Info) Description 02/23/2020 Travel Social History Tobacco Use Types Packs/Day Years Used Date Smoking Tobacco: Every Day Cigarettes 1.5 25 Started: 12/07/1985; Last attempted to quit: 12/07/2010 Smokeless Tobacco: Never Alcohol Use Standard Drinks/Week Comments Yes 0 (1 standard drink = 0.6 oz pur e alcohol) social Sex and Gender Information Value Date Recorded Sex Assigned at Male 08/31/2020 7:44 AM ENGINEERING GROUP MANAGER Gender Identity Male 08/31/2020 7:44 AM ENGINEERING GROUP MANAGER Sexual Orientation Straight 08/31/2020 7: 44 AM ENGINEERING GROUP MANAGER COVID-19 Exposure Response Date Recorded In the last month, have you been in contact with someone who was confirmed or suspected to have Coronavirus / COVID-19? No / Unsure 02/23/2020 8:04 AM CDT documented as of this encounter [...] on filedocumented in this encounter Care Teams Swatch Cutter Relationship Specialty Start Date End Date Alf Khan DO PCP - General Family Medicine 09/03/13 02/27/23 documented as of this encounter
--- OUTSIDE RECORDS SUMMARY | 2024-09-06 20:28 | XMS_ITS | Encounter Summary ---
Author Organization [facility] Address [address] [place] [address] Care Team Providers Care Accounts Payable Coordinator Name Role Phone Alf Khan DO Primary Care Provider Stephan rosa Reason for Visit * Reason Comments Hematuria Encounter Details Date Type Department Care Team (Late st Contact Info) Description 02/24/2018 2:10 PM CDT [facility] [address], [address] [address] Jonathan Muñoz MD [address] [phone] Gross hematuria (Primary Dx) Social History Tobacco Use Types Packs/Day Years Used Date Smoking Tobacco: Every Day Cigarettes 1.5 25 Started: 12/07/1985; Last attempted to quit: 12/07/2010 Smokeless Tobacco: Never Alcohol Use Standard Drinks/Week Comments Yes 0 (1 standard drink = 0.6 oz pur e alcohol) social Sex and Gender Information Value Date Recorded Sex Assigned at Male 08/31/2020 7:44 AM LIME SPREADER Gender Identity Male 08/31/2020 7:44 AM LIME SPREADER Sexual Orientation Straight 08/31/2020 7: 44 AM LIME SPREADER documented as of this encounter Last Filed Vital Signs Vital Sign Reading Time Taken Comments Blood Pressure 169/84 02/24/2018 2:08 PM CDT Pulse 90 02/24/2018 2:08 PM CDT Temperature - - Respiratory Rate - - Oxygen Saturation - - Inhaled Oxygen Concentration - - Weight 98 kg (216 lb) 02/24/2018 2:08 PM CDT Height 180.3 cm (5' 11 ) 02/24/2018 2:08 PM CDT Body Mass Index 30.13 02/24/2018 2:08 PM CDT documented in this encounter Functional [...] as of this encounter Progress Notes * Jonathan Muñoz MD - 02/24/2018 4:21 PM CDT Cystoscopy 02/24/2018 History of Present Illness: Trenton Crockett is a 52 y.o. male who presents to the urology office for office flexible cystoscopy for: hematuria. Description of Procedure: Informed verbal and written consent was obtained. The patient was positioned supine on the examination table. The patient???s urethral meatus and perimeatal tissues were prepped with an anti-septic solution (betadine or hibiclens) and urethral 2% lidocaine jelly was utilized per urethra. The patient was draped. A 14 Nepali flexible cystoscope was then inserted per meatus under direct visualization with the following findings: Urethra: Normal, free of lesions or strictures Prostate: Unobstructed Bladder: No urolthelial abnormality. Ureteral orifices were orthotopic I couldn't tell if there wasblood coming form left UO or left aspect of bladder neck. He would not permit a retroflex view. Post-Cystoscopy Instructions: Patient was instructed to telephone the office or the after hours exchange with any questions or concerns. * Jonathan Muñoz MD - 02/24/2018 2:15 PM CDT Urologic Surgery Office New Visit Note Encounter Date: 02/24/2018 Patient Name: Trenton Crockett I am seeing Trenton Crockett in consultation for: Chief Complaint Patient presents with ??? Hematuria - Diagnosis Encounter Diagnosis Name Primary? Gross hematuria Yes Plan: Plan 1) Gross hematuria -noncontrast CT was negative -cystoscopy showed bleeding from either left UO or left superior bladder neck -cytology sent -discussed at length with patient the concern for malignancy given his extensive smoking history. We need to thoroughly investigate this. -will schedule for cystoscopy, bilateral retrograde pyelograms, left diagnostic ureteroscopy. Cystocopy and Retrograde Discussion: I explained the procedure (cystoscopy, retrograde) may include the following: looking into the urethra and bladder and taking xrays of the kidneys and ureters. I explained the rationale for choosing this treatment as opposed to conservative therapy. The patient understands the risks of the procedure include but are not limited to the following: bleeding; infection; injury to bladder, ureter or urethra requiring further treatment; anesthesia risks (including stroke, heart attack, blood clots or ); and others, including the need for furthersurgery. History of Present Illness: Trenton Crockett is a 52 y.o. male who presents to the urology office for evaluation of hematuria x 3 days. Started suddenly. HE has a substantial smoking history. He denies any urinary issues prior to this event. 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 Urine is frankly bloody. He is very disconnected and dissociated during this visit. He hates doctors and doesn't want to be here. Cystoscopy shows bleeding from left side of bladder. I can't discern if this is from the left UO or from the superior aspect of the left bladder neck. Past Medical History: Diagnosis Date ??? GERD (gastroesophageal reflux disease) controlled ??? Motion sickness ??? Pure hypercholesterolemia ??? Snoring no c-pap ??? Unspecified essential hypertension Past Surgical History: Procedure Laterality Date ??? COLONOSCOPY WITH POLYPECTOMY 04/15/2014 Dr Rios ??? HERNIA REPAIR, VENTRAL 06/03/2012 ??? INCISION AND DRAINAGE 09/05/2017 PERIRECTAL ABSCESS ??? INCISION AND DRAINAGE Right 09/05/2017 Right; INCISION AND DRAINAGE ABSCESS PERIRECTAL ??? Webb Tooth Extraction Current Outpatient Prescriptions Medication ??? ciprofloxacin (CIPRO) 500 MG tablet ??? sildenafil (REVATIO) 20 MG tablet ??? sildenafil (VIAGRA) 100 MG tablet ??? albuterol HFA (PROVENTIL;VENTOLIN;PROAIR) 108 (90 BASE) MCG/ACT inhaler ??? albuterol HFA (PROAIR HFA) 108 (90 BASE) MCG/ACT inhaler ??? [START ON 03/31/2018] HYDROcodone-acetaminophen (NORCO) 7.5-325 MG tablet ??? HYDROcodone-acetaminophen (NORCO) 7.5-325 MG tablet ??? HYDROcodone-acetaminophen (NORCO) 5-325 MG tablet No current facility-administered medications for this visit. Allergies Allergen Reactions ??? Perry Inhibitors Cough Family History Problem Relation Age of Onset ??? Cancer - Lung Mother Family history of malignancy: no Family history of calculus disease: no Social History Social History ??? Marital status: Spouse name: N/A ??? Number of children: N/A ??? Years of education: N/A Occupational History ??? Not on file. Social History Main Topics ??? Smoking status: Current Every Day Smoker Packs/day: 1.50 Years: 25.00 Last attempt to quit: 12/07/2010 ??? Smokeless tobacco: Never Used ??? Alcohol use 0.0 oz/week 0 Standard drinks or equivalent per week Comment: social ??? Drug use: No ??? Sexual activity: Not on file Other Topics Concern ??? Not on file Social History Narrative Review of Systems: A 12-point extended review of systems was performed. All systems are negative, except for the new positives and/or changes that have been noted above in the history of present illness & interval history. BP 169/84 Pulse 90 Ht 1.803 m (5' 11 ) Wt 98 kg (216 lb) BMI 30.13 kg/m2 Physical Exam: Constitutional: normal, alert, cooperative and no distress Eyes: anicteric sclerae, extraocular eye movements intact and no ptosis HENMT: normocephalic, atraumatic. nares are symmetric, no nasal flaring or respiratory distress. Noobvious lesions or masses. No lip cyanosis. Cardiovascular: normal heart rate Pulmonary/Respiration: non labored breathing Abdominal: Soft Musculoskeletal: normal station and posture. Moves all extremities. Neurological: cranial nerves II through XII intact Psychiatric: alert, oriented, normal speech, no focal findings or movement disorder noted. Skin: normal coloration and turgor, no rashes, no suspicious skin lesions noted Genitourinary: Penis: meatus of normal caliber Scrotum: normal Testicles: bilaterally descended, no masses or abnormalities bilaterally. Epididymis: normal bilaterally Vas Deferens: present and normal bilaterally Prostate: symmetric, benign, no nodules or indurations Anus and perineum normal. Normal sphincter tone. No rectal masses Hematological/Immunological: no bleeding gums, no jaundice Lymphatic: no femoral or inguinal palpable lymphadenopathy Laboratory Results: Recent Labs Component Name 02/22/18183504/08/17 1055 WBC 11.5* 6.1 RBC 5.11 5.22 HGB 16.8 16.8 HCT 48.8 49.1 MCV 95.5 94.1 PLTCOUNT 261 178 Recent Labs Component Name 02/22/18183504/08/17 1055 SODIUM 141 140 POTASSIUM 3.6 4.1 CHLORIDE 105 105 CO2 27 28 BUN 15 11 CREATININE 0.78 0.68 GLUCOSE 104 98 CALCIUM 8.4* 8.7 Recent Labs Component Name 02/22/18183504/08/17 1055 ALBUMIN 3.6 3.7 ALKPHOS 92 83 ALT 11* 16 AST 15 17 No results for input(s): PSA in the last 59877 hours. No results for input(s): TESTOSTERONE in the last 51108 hours. No results found for this visit on 02/24/18. Microbiology Results: Recent Labs Component Name 02/22/18183604/08/17 1052 COLORUA Grossly Bloody* Yellow SPECGRAVUA 1.040* 1.021 PHUA 5.0 6.5 PROTEINUA 2+* Negative BLOODUA 3+* - LEUKOCYTEUA Trace* Negative NITRITEUA Positive* Negative GLUCOSEUA 1+* Negative KETONEUA Trace* Negative BILIRUBINUA Negative - UROBILINUA Negative - WBCUA 0-5 0-5 RBCUA >100* 0-2 MUCUSUA 4+ Present CASTUA - NOT NEEDED NOT NEEDED CRYSTALUA - Calcium Oxalate Present* BACTERIAUA - None seen YEASTUA - NOT NEEDED Radiographic Results: Ct Abdomen And Pelvis Non Iv Contrast Result Date: 02/22/2018 Examination: Noncontrast Abdomen and Pelvic CT [...] grammatical or syntax problems by a trained certified medical dosimetrist. For questions about the report,please contact the Radiology Department. Findings: CT Abdomen: [...] No calcified stones can be seen in thecourse of the distal ureters. No pelvic mass is present. The bladder is collapsed and therefore cannot be evaluated further. Scattered diverticula are visible in the distal colon. No obstruction or definite urinary stone seen at this time. Urologic consultation is recommended ifthe hematuria persists. Reading Radiologist: Patric Duval MD on 02/22/2018 at 8:12 PM I have personally visualized the above radiographic images, and if available, the radiology report(s). documented in this encounter Plan of Treatment Scheduled Orders Name Type Priority Associated Diagnoses Orde r Schedule CYSTOSCOPY Procedure Routine Gross hematuria Ordered: 02/24/2018 documented as of this encounter Goals Goal Patient Goal Type Associated Problems Recent Progress Patient-Stated? Author Blood Pressure < 140/90 Blood Pressure 172/93(2022 8:59 AM CDT) No Zachary Moreno documented as of this encounter Procedures Procedure Name Priority Date/Time Associated Diagnosis Comments CYTOLOGY URINE Routine 02/24/2018 2:57 PM CDT Gross hematuria BLADDER SCAN - POINT OF CARE (AMB) Routine 02/24/2018 Gross hematuria documented in this encounter Results * CYTOLOGY URINE (02/24/2018 2:57 PM CDT) [...] LAB - POINT OF CAR E ORDERABLES documented in this encounter Visit Diagnoses Diagnosis Gross hematuria- Primary documented in this encounter Care Teams Accounts Payable Coordinator Relationship Specialty Start Date End Date Alf Khan DO PCP - General Family Medicine 09/03/13 02/27/23 documented as of this encounter
--- OUTSIDE RECORDS SUMMARY | 2024-09-06 20:28 | XMS_ITS | Encounter Summary ---
Author Organization [facility] Address [address] [place] [id number] Care Team Providers Care Notcher Name Role Phone Alf Khan DO Primary Care Provider Stephan rosa Reason for Visit * Reason Onset Date Comments Medication Prior Auth Request 05/23/2018 Encounter Details Date Type Department Care Team (Late st Contact Info) Description 05/23/2018 Telephone [facility] - Family Medicine [address] [place] [address] Alf Khan, DO Medication Prior Auth Request [...] Sex Assigned at Male 08/31/2020 7:44 AM POKER MACHINE ATTENDANT Gender Identity Male 08/31/2020 7:44 AM POKER MACHINE ATTENDANT Sexual Orientation Straight 08/31/2020 7: 44 AM POKER MACHINE ATTENDANT documented as of this encounter Functional Status [...] * Telephone Encounter - Liv Vasquez - 05/27/2018 2:06 PM CDT Prior authorization request for Hydrocodone-Acetaminophen 7.5-325 mg has been approved per Patric and is good from 05/27/18 - 05/27/19 [id number]. Pharmacy is aware. * Telephone Encounter - Liv Vasquez - 05/27/2018 2:01 PM CDT Received a denial letter from [facility] for Hydrocodone-Acetaminophen 7.5-325 mg. States that the patient is not currently utilizing opioid therapy on a consistent basis for chronic pain (defined as prescribed use for 90 out of the past 110 days). The patient has been using the medication on a consistent basis since 09/03/13. Will initiate a new case. * Telephone Encounter - Liv Vasquez - 05/23/2018 10:57 AM CDT Received prior authorization request from the pharmacy for Hydrocodone- Acetaminophen 7.5-325 mg. Per Nicolette the medication has been put in review. Case EOC: [id number]. Waiting on determination. documented in this encounter Plan of Treatment Not on file documented as of this encounter Goals Goal Patient Goal Type Associated Problems Recent Progress Patient-Stated? Author Blood Pressure < 140/90 Blood Pressure 172/93(2022 8:59 AM CDT) No Zachary Moreno documented as of this encounter Visit Diagnoses Not on filedocumented in this encounter Care Teams Notcher Relationship Specialty Start Date End Date Alf Khan DO PCP - General Family Medicine 09/03/13 02/27/23 documented as of this encounter
--- OUTSIDE RECORDS SUMMARY | 2024-09-06 20:28 | XMS_ITS | Encounter Summary ---
Author Organization [facility] Address [address] [place] [address] Care Team Providers Care Talent Sourcer Name Role Phone Alf Khan DO Primary Care Provider Stephan rosa Reason for Visit * Reason Comments Evaluation perirectal abscess * Evaluate (Emergency) - Closed Specialty Diagnoses / Procedures Referred By Contivan t Referred To Contact General Surgery Diagnoses Perirectal abscess Rectal pain HTN (hypertension), benign Alf Khan DO [address] [place] [address] [facility] [id number] [place] [address], [address] [phone] Referral ID Status Reason Start Date Expiration Date V isits Requested Visits Authorized [id number] Closed Specialty Services Required 09/04/2017 03/03/2018 1 1 Encounter Details Date Type Department Care Team (Late st Contact Info) Description 09/05/2017 2:30 PM MANUFACTURING ENGINEERING TECHNICIAN Office Visit [facility] Medical [facility] - Surgery [id number] [place] [address], [address] [phone] Donaldo Sadler MD [address] [place] [id number] Perirectal abscess (Primary Dx); Rectal pain; HTN (hypertension), benign Social History Tobacco Use Types Packs/Day Years Used Date Smoking Tobacco: Former Cigarettes 1.5 25 0 12/07/1985 - 12/07/2010 Smokeless Tobacco: Never Alcohol Use Standard Drinks/Week Comments Yes 0 (1 standard drink = 0.6 oz pur e alcohol) social Sex and Gender Information Value Date Recorded Sex Assigned at Male 08/31/2020 7:44 AM MANUFACTURING ENGINEERING TECHNICIAN Gender Identity Male 08/31/2020 7:44 AM MANUFACTURING ENGINEERING TECHNICIAN Sexual Orientation Straight 08/31/2020 7: 44 AM MANUFACTURING ENGINEERING TECHNICIAN documented as of this encounter Last Filed Vital Signs Vital Sign Reading Time Taken Comments Blood Pressure - - Pulse - - Temperature - - Respiratory Rate - - Oxygen Saturation - - Inhaled Oxygen Concentration - - Weight 105.2 kg (232 lb) 09/05/2017 11:42 AM MANUFACTURING ENGINEERING TECHNICIAN Height 180.3 cm (5' 11 ) 09/05/2017 11:42 AM MANUFACTURING ENGINEERING TECHNICIAN Body Mass Index 32.36 09/05/2017 11:42 AM MANUFACTURING ENGINEERING TECHNICIAN documented in this encounter Functional Status Functional [...] this encounter Patient Instructions * Patient Instructions* Renata Cowan - 09/05/2017 11:46 AM MANUFACTURING ENGINEERING TECHNICIAN Patient's medications and allergies were reviewed with the patient today. Patient was instructed tocontact primary care physician or ordering provider with any questions regarding medications. FACTURING ENGINEERING TECHNICIAN documented in this encounter Progress Notes * Donaldo Sadler MD - 09/05/2017 11:40 AM CST Chief Complaint Mass. History of Present Illness Trenton Crockett is a 51 y.o. male who is referred by Alf Khan DO. PCP is Alf Khan DO.The patient has a mass on the right buttock just above the rectum. The patient states the mass has been present for about a week. The mass measures 4 cm in size. The mass has increased in size. The mass does cause pain. The mass does appear infected. The mass has not been draining. He went to urgent care recently where they told them it was not something the could deal with. He was given doxycycline that he has not started yet. Past Medical History: Diagnosis Date ??? GERD (gastroesophageal reflux disease) controlled ??? Motion sickness ??? Pure hypercholesterolemia ??? Snoring no c-pap ??? Unspecified essential hypertension Past Surgical History: Procedure Laterality Date ??? COLONOSCOPY WITH POLYPECTOMY 04/15/2014 Dr Rios ??? HERNIA REPAIR, VENTRAL 06/03/2012 ??? Steele Tooth Extraction Outpatient Prescriptions Marked as Taking for the 09/05/17 encounter (Office Visit) with Donaldo Sadler MD Medication Sig Dispense Refill ??? doxycycline hyclate (VIBRAMYCIN) 100 MG capsule Take 1 capsule by mouth 2 times daily 14 capsule 0 ??? HYDROcodone-acetaminophen (NORCO) 7.5-325 MG tablet Take 1 tablet by mouth every 4 hours as needed for Pain 120 tablet 0 ??? sildenafil (VIAGRA) 100 MG tablet Take 1 Tab by mouth once daily as needed 6 Tab 11 ??? albuterol HFA (PROVENTIL;VENTOLIN;PROAIR) 108 (90 BASE) MCG/ACT inhaler Inhale 2 Puffs by mouthevery 4 hours as needed for Shortness of Breath, Wheezing or Cough 1 Inhaler 0 ??? albuterol HFA (PROAIR HFA) 108 (90 BASE) MCG/ACT inhaler Inhale 2 Puffs by mouth every 6 hours as needed Reported on 07/31/2016 Perry inhibitors Family History Problem Relation Age of Onset ??? Cancer - Lung Mother Social History Substance Use Topics ??? Smoking status: Former Smoker Packs/day: 1.50 Years: 25.00 Quit date: 12/07/2010 ??? Smokeless tobacco: Never Used ??? Alcohol use 0.0 oz/week 0 Standard drinks or equivalent per week Comment: social Review of Systems A detailed 10 point review of systems was obtained and is negative other than the HPI. Physical Examination: Constitutional: Vital signs are stable and the patient is no acute distress. Eyes: Reveal no icterus. Neck: Neck is supple without JVD or bruit. Respiratory: Lungs are clear. Cardiovascular: Regular rate and rhythm. GI: Abdomen is soft and non tender. Musculoskeletal: All four extremities are warm and well perfused. Neurologic: Intact. Buttock: 4 cm infected mass right buttock just above the rectum Impression/Plan Indu rectal abscess, 4 cm. Will plan for incision and drainage of perirectal abscess today in the OR. He states he has only had 2 cups of coffee today. He will be NPO until surgery. I have discussed the risks, benefits and alternatives to surgery with the patient who understands and wishes to proceed. Past Medical History: Diagnosis Date ??? GERD (gastroesophageal reflux disease) controlled ??? Motion sickness ??? Pure hypercholesterolemia ??? Snoring no c-pap ??? Unspecified essential hypertension FACTURING ENGINEERING TECHNICIAN documented in this encounter Plan of Treatment Not on file documented as of this encounter Goals Goal Patient Goal Type Associated Problems Recent Progress Patient-Stated? Author Blood Pressure < 140/90 Blood Pressure 172/93(2022 8:59 AM CDT) No Zachary Moreno documented as of this encounter Visit Diagnoses Diagnosis Perirectal abscess- Primary Abscess of anal and rectal regions Rectal pain Anal or rectal pain HTN (hypertension), benign Essential hypertension, benign documented in this encounter Care Teams Talent Sourcer Relationship Specialty Start Date End Date Alf Khan DO PCP - General Family Medicine 09/03/13 02/27/23 documented as of this encounter
--- OUTSIDE RECORDS SUMMARY | 2024-09-06 20:28 | XMS_ITS | Encounter Summary ---
Author Organization [facility] Address [address] [place] [address] Care Team Providers Care Editor Publications Name Role Phone Alf Khan DO Primary Care Provider Stephan rosa Reason for Visit * Reason Onset Date Comments Opened In Error 12/03/2016 Encounter Details Date Type Department Care Team (Late st Contact Info) Description 12/03/2016 Refill [facility] - Family Medicine [address] [place] [address] Alf Khan DO Opened In Error Social History Tobacco Use Types Packs/Day Years Used Date Smoking Tobacco: Former Cigarettes 1.5 25 0 12/07/1985 - 12/07/2010 Smokeless Tobacco: Never Alcohol Use Standard Drinks/Week Comments Yes 0 (1 standard drink = 0.6 oz pur e alcohol) social Sex and Gender Information Value Date Recorded Sex Assigned at Male 08/31/2020 7:44 AM RECORDS MANAGEMENT SPECIALIST Gender Identity Male 08/31/2020 7:44 AM RECORDS MANAGEMENT SPECIALIST Sexual Orientation Straight 08/31/2020 7: 44 AM RECORDS MANAGEMENT SPECIALIST documented as of this encounter Functional [...] on filedocumented in this encounter Care Teams Editor Publications Relationship Specialty Start Date End Date Alf Khan DO PCP - General Family Medicine 09/03/13 02/27/23 documented as of this encounter
--- OUTSIDE RECORDS SUMMARY | 2024-09-06 20:28 | XMS_ITS | Encounter Summary ---
Author Organization [facility] Address [address] [place] [address] Care Team Providers Care Ict Customer Support Officer Name Role Phone Alf Khan DO Primary Care Provider Stephan rosa Reason for Visit * Reason Comments Follow-up pt here today for 3 months follow up for ongoing back pain Medication Check pharmacy confirmed w ith pt Encounter Details Date Type Department Care Team (Latest Contact Info) Description 02/18/2018 3:00 PM CDT Office Visit [facility] - Family Medicine [address] [place] [address] Alf Khan DO Degeneration of cervical intervertebral disc (Primary Dx); Mixed hyperlipidemia; HTN (hypertension), benign; Degeneration of lumbar or lumbosacral intervertebral disc; Metabolic syndrome; Glucose intolerance (impaired glucose tolerance) Social History Tobacco Use Types Packs/Day Years Used Date Smoking Tobacco: Former Cigarettes 1.5 25 0 12/07/1985 - 12/07/2010 Smokeless Tobacco: Never Alcohol Use Standard Drinks/Week Comments Yes 0 (1 standard drink = 0.6 oz pur e alcohol) social Sex and Gender Information Value Date Recorded Sex Assigned at Male 08/31/2020 7:44 AM LUMP INSPECTOR Gender Identity Male 08/31/2020 7:44 AM LUMP INSPECTOR Sexual Orientation Straight 08/31/2020 7: 44 AM LUMP INSPECTOR documented as of this encounter Last Filed Vital Signs Vital Sign Reading Time Taken Comments Blood Pressure 136/84 02/18/2018 3:06 PM CDT Pulse 90 02/18/2018 3:06 PM CDT Temperature 36.5 ??C (97.7 ??F) 02/18/2018 3:06 PM CD T Respiratory Rate - - Oxygen Saturation 98% 02/18/2018 3:06 PM CDT Inhaled Oxygen Concentration - - Weight 99.3 kg (219 lb) 02/18/2018 3:06 PM CDT Height 180.3 cm (5' 11 ) 02/18/2018 3:06 PM CDT Body Mass Index 30.54 02/18/2018 3:06 PM CDT documented in this encounter Functional [...] this encounter Patient Instructions * Patient Instructions* Puja Raymundo R - 02/18/2018 3:05 PM CDT Caring for Your High Blood Pressure Diet Eat a healthy diet: ??? Eat healthy foods from all of the 5 food groups which are fruits, vegetables, breads, dairy products, meat and fish. Eating healthy foods may help you feel better and have more energy. ??? To help control your blood pressure, you may need to limit the amount of salt and fat you eat. Read labels to see how much sodium (salt or sodium chloride) is in the food that you buy at the store. Avoid foods and drinks that are high in sodium (salt). These include smoked meats (such as ham and roach), cheese, canned and frozen foods, and butter and margarine. Read all labels carefully. Do not add salt to your food. Learn to use fresh herbs, spices, or salt substitutes to add flavor to your food. Ask your provider for any dietary restrictions that are appropriate for you. Where can I go for more information? [place] [employer] National Center: http://www.americanheart.org 1. In the top header, click ???Conditions?? . 2. In the top header, click ???high blood pressure.?? 3. For a printable blood pressure tracker, scroll toward the bottom of the page to Related Tools, and click ???HBP Trackers.?? 9-586-ZPE-USA-1 or ( ) National Heart, Lung and Blood [place]: http://www.nhlbi.nih.gov/health/infoctr/index.htm documented in this encounter Progress Notes * Alf Khan DO - 02/18/2018 3:09 PM CDT Office Visit, Established Patient, [id number] HISTORY: SYDNEE Trenton Crockett is a 52 y.o. male patient, here for: pain medication refill Chief Complaint Patient presents with ??? Follow-up pt here today for 3 months follow up for ongoing back pain ??? Medication Check pharmacy confirmed with pt HPI: He's been having pain in the upper back, from the shoulders down to the lower back. Chronic low back pain. Pain -9/10 when not taking pills and feels like it myers, aches and can't never get comfortable. After he takes medication the pain goes away he says it makes him feel normal and allows him to work. 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 Takes up to 3 pills per day, tries to go by with less. Some day more and some days less. He got 2 Rx of 120 and lasted 3 mo this last time Has lost weight, is eating healthier, and quit smoking a year ago. Still doing well. BP ok. Wt Readings from Last 3 Encounters: 02/18/18 99.3 kg (219 lb) 11/19/17 101.6 kg (224 lb) 09/05/17 105.7 kg (233 lb) Will re ck labs in March with weight loss his labs went to normal L spine some arthritis and never had MRI L spine and has pain from neck into shoulder and mid back Has Cervical spinal stenosis. He has pain in am and worse at night after work. PT never helped and he says he can not afford P or L spine MR right now. Wants to just have some pain med to get out of pain and keep him working ADDENDUM ? The T-1/2 level appears normal [...] by: Lilliam Morris on 04/25/2009 1:25 PM Breathing is good rarely using albuterol prn no breathing issues Denies CP or SOB. Wt Readings from Last 3 Encounters: 02/18/18 99.3 kg (219 lb) 11/19/17 101.6 kg (224 lb) 09/05/17 105.7 kg (233 lb) Patient Active Problem List Diagnosis Date [...] to Visit Medication Sig Dispense Refill ??? sildenafil (REVATIO) 20 MG tablet TAKE 5 TABLETS BY MOUTH ONCE DAILY NEEDED 25 tablet 11 ??? sildenafil (VIAGRA) 100 MG tablet Take 1 tablet by mouth once daily as needed 6 tablet 5 ??? albuterol HFA (PROVENTIL;VENTOLIN;PROAIR) 108 (90 BASE) MCG/ACT inhaler Inhale 2 Puffs by mouthevery 4 hours as needed for Shortness of Breath, Wheezing or Cough 1 Inhaler 0 ??? albuterol HFA (PROAIR HFA) 108 (90 BASE) MCG/ACT inhaler Inhale 2 Puffs by mouth every 6 hours as needed Reported on 07/31/2016 ??? HYDROcodone-acetaminophen (NORCO) 7.5-325 MG tablet Take 1 tablet by mouth every 4 hours as needed for Pain 120 tablet 0 ??? HYDROcodone-acetaminophen (NORCO) 7.5-325 MG tablet Take 1 tablet by mouth every 4 hours as needed for Pain 120 tablet 0 ??? HYDROcodone-acetaminophen (NORCO) 5-325 MG tablet Take 1 tablet by mouth every 4 hours as needed for Pain (Patient not taking: Reported on 11/19/2017) 30 tablet 0 No facility-administered medications prior to [...] ??? Cancer - Lung Mother EXAM BP 136/84 Pulse 90 Temp 97.7 ??F (36.5 ??C) Wt 99.3 kg (219 lb) SpO2 98% BMI 30.54 kg/m2 FiO2: General appearance - alert, well appearing, and in no distress and oriented to person, place, and time Neck - supple, no significant adenopathy, carotids upstroke normal bilaterally, no bruits Chest - clear to auscultation, no wheezes, rales or rhonchi, symmetric air entry Heart - normal rate, regular rhythm, normal S1, S2, no murmurs, rubs, clicks or gallops Back exam - limited range of motion, pain with motion noted during exam, tenderness noted across lower back and SI region Neurological - alert, oriented, normal speech, no focal findings or movement disorder noted, DTR's normal and symmetric. MS 5/5 in Ue and DTR normal UE 2/4 Musculoskeletal - no joint tenderness, deformity or swelling Extremities - no pedal edema Skin-no rashes in visible areas Depression: PHQ-2:TOTAL POINT SCORE: 0 PHQ-9: ASSESSMENT: ICD-10-CM 1. Degeneration of cervical intervertebral disc M50.30 2. Mixed hyperlipidemia E78.2 3. HTN (hypertension), benign I10 4. Degeneration of lumbar or lumbosacral intervertebral disc M51.37 5. Metabolic syndrome E88.81 6. Glucose intolerance (impaired glucose tolerance) R73.02 PLAN: Orders Placed This Encounter ??? HYDROcodone-acetaminophen (NORCO) 7.5-325 MG tablet Sig: Take 1 tablet by mouth every 4 hours as needed for Pain Dispense: 120 tablet Refill: 0 Post dated Rx do not delete ??? HYDROcodone-acetaminophen (NORCO) 7.5-325 MG tablet Sig: Take 1 tablet by mouth every 4 hours as needed for Pain Dispense: 120 tablet Refill: 0 Goals ? ? Blood Pressure < 140/90 Medications Discontinued During This Encounter Medication Reason ??? HYDROcodone-acetaminophen (NORCO) 7.5-325 MG tablet Reorder ??? HYDROcodone-acetaminophen (NORCO) 7.5-325 MG tablet Reorder Current Outpatient Prescriptions Medication Sig Dispense Refill ??? [START ON 03/31/2018] HYDROcodone-acetaminophen (NORCO) 7.5-325 MG tablet Take 1 tablet by mouth every 4 hours as needed for Pain 120 tablet 0 ??? HYDROcodone-acetaminophen (NORCO) 7.5-325 MG tablet Take 1 tablet by mouth every 4 hours as needed for Pain 120 tablet 0 ??? sildenafil (REVATIO) 20 MG tablet TAKE 5 TABLETS BY MOUTH ONCE DAILY NEEDED 25 tablet 11 ??? sildenafil (VIAGRA) 100 MG tablet Take 1 tablet by mouth once daily as needed 6 tablet 5 ??? albuterol HFA (PROVENTIL;VENTOLIN;PROAIR) 108 (90 BASE) [...] No current facility-administered medications for this visit. get labs next time Got 2 Rx for pain med Offered PT and pain mgmt and can not afford it. Says is ok if has 2 pain Rx last him 3 mo SE of meds discussed with patient and [...] Diagnosis Degeneration of cervical intervertebral disc- Primary Mixed hyperlipidemia HTN (hypertension), benign Essential hypertension, benign Degeneration of lumbar or lumbosacral intervertebral disc Metabolic syndrome Dysmetabolic Syndrome X Glucose intolerance (impaired glucose tolerance) Impaired glucose tolerance test documented in this encounter Care Teams Ict Customer Support Officer Relationship Specialty Start Date End Date Alf Khan DO PCP - General Family Medicine 09/03/13 02/27/23 documented as of this encounter
--- OUTSIDE RECORDS SUMMARY | 2024-09-06 20:28 | XMS_ITS | Encounter Summary ---
Author Organization [facility] Address [address] [place] [address] Care Team Providers Care Vacuum Drier Operator Name Role Phone Alf Khan DO Primary Care Provider Stephan rosa Reason for Visit * Reason Comments Erectile dysfunction pt c/o ED Encounter Details Date Type Department Care Team (Late st Contact Info) Description 04/08/2017 3:45 PM CDT Office Visit [facility] - Family Medicine [address] [place] [address] Alf Khan DO HTN (hypertension), benign (Primary Dx); Mixed hyperlipidemia; Impotence due to erectile dysfunction; Metabolic syndrome; Glucose intolerance (impaired glucose tolerance) Social History Tobacco Use Types Packs/Day Years Used Date Smoking Tobacco: Former Cigarettes 1.5 25 0 12/07/1985 - 12/07/2010 Smokeless Tobacco: Never Alcohol Use Standard Drinks/Week Comments Yes 0 (1 standard drink = 0.6 oz pur e alcohol) social Sex and Gender Information Value Date Recorded Sex Assigned at Male 08/31/2020 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 Gender Identity Male 08/31/2020 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 Sexual Orientation Straight 08/31/2020 7: 44 AM CRIME SCENE PHOTOGRAPHER documented as of this encounter Last Filed Vital Signs Vital Sign Reading Time Taken Comments Blood Pressure 144/76 04/08/2017 4:28 PM CDT Pulse 72 04/08/2017 3:59 PM CDT Temperature 36.6 ??C (97.9 ??F) 04/08/2017 3:59 PM CD T Respiratory Rate - - Oxygen Saturation 97% 04/08/2017 3:59 PM CDT Inhaled Oxygen Concentration - - Weight 104.3 kg (230 lb) 04/08/2017 3:59 PM CDT Height 180.3 cm (5' 11 ) 04/08/2017 3:59 PM CDT Body Mass Index 32.08 04/08/2017 3:59 PM CDT documented in this encounter Functional [...] * Patient Instructions* Puja Raymundo R - 04/08/2017 3:55 PM CDT Caring for Your High Blood Pressure Exercise ??? Exercising makes the heart stronger, lowers blood pressure, and keeps you healthy. ??? Check with your provider before starting an exercise program. ??? When starting a physical activity program, begin slowly to avoid injury. Even doing 5 to 10 minutes can be beneficial. Add a few minutes each week till you reach your goal. Choose an activity that fits your fitness level and interests, one that you can do on a regular basis. ??? Exercise activities like running, using weights, going to the gym are one type of physical activity, but day to day activities such as walking, stairs, cutting grass, gardening, and riding a bikeor vacuuming are also physical activities. IT ALL COUNTS!!!! Where can I go for more information? [employer] National Center: http://www.americanheart.org 1. In the top header, click ???Conditions?? . 2. In the top header, click ???high blood pressure.?? 3. For a printable blood pressure tracker, scroll toward the bottom of the page to Related Tools, and click ???HBP Trackers.?? 2-729-BCB-USA-1 or ( ) National Heart, Lung and Blood [place]: http://www.nhlbi.nih.gov/health/infoctr/index.htm documented in this encounter Progress Notes * Alf Khan, - 04/08/2017 4:21 PM CDT Office Visit, Established Patient, [id number] HISTORY: CC Trenton Crockett is a 51 y.o. male patient, here for: Chief Complaint Patient presents with ??? Erectile dysfunction pt c/o ED HPI: He did his annual labs and is here for f/u on them and also has an ED is an issue and he has worries about has a 1/2 way erection and he needs help in this area. Doesnot wake up with erections Does not have any glucose issues A1c was normal and all labs were good He has lost weight and fixed diet and is down 39 lbs and changed his diet and is not dieting Wt Readings from Last 3 Encounters: 04/08/17 104.3 kg (230 lb) 01/22/17 122 kg (269 lb) 07/31/16 117.9 kg (260 lb) Denies CP or SOB. He said he quit smoking about 6 yrs ago. BP was better on re ck and no SE to Rx He asked if med causing ED and told him this does not cause ED BP Readings from Last 3 Encounters: 04/08/17 144/76 01/22/17 138/86 07/31/16 150/80 Patient Active Problem List Diagnosis Date Noted ??? Pain medication agreement signed 06/24/2014 ??? [...] to Visit Medication Sig Dispense Refill ??? valsartan (DIOVAN) 160 MG tablet Take 1 Tab by mouth once daily 30 Tab 5 ??? omeprazole (PRILOSEC) 20 MG capsule Take 1 Cap by mouth once daily 30 Cap 5 ??? albuterol HFA (PROVENTIL;VENTOLIN;PROAIR) 108 (90 BASE) MCG/ACT inhaler Inhale 2 Puffs by mouthevery 4 hours as needed for Shortness of Breath, Wheezing or Cough 1 Inhaler 0 ??? HYDROcodone-acetaminophen (NORCO) 7.5-325 MG tablet Take 1 Tab by mouth every 4 hours as neededfor Pain Earliest Fill Date: 07/23/16 (Patient taking differently: Take 1 Tab by mouth every 4 hours as needed for Pain Only prn) 120 Tab 0 ??? albuterol HFA (PROAIR HFA) 108 (90 BASE) MCG/ACT inhaler Inhale 2 Puffs by mouth every 6 hours as needed Reported on 07/31/2016 ??? pravastatin (PRAVACHOL) 40 MG tablet Take 1 tablet by mouth at bedtime. (Patient not taking: Reported on 07/31/2016) 30 tablet 5 No facility-administered medications prior to visit. PFSH, other pertinent history: Allergies Allergen Reactions ??? Perry Inhibitors Cough Social History Smoking status: Former Smoker Packs/day: 1.50 Years: 25.00 Quit date: 12/07/2010 Smokeless status: Never Used Alcohol use: Yes 0.0 oz/week 0 Standard drinks or equivalent per week Comment: social Drug use: No Sexual activity: Not on file No family history on file. EXAM BP 144/76 Pulse 72 Temp 97.9 ??F Wt 104.3 kg (230 lb) SpO2 97% BMI 32.08 kg/m2 FiO2: General appearance - alert, well [...] or movement disorder noted, DTR's normal and symmetric Musculoskeletal - no joint tenderness, deformity or swelling Extremities - peripheral pulses normal, no pedal edema, no clubbing or cyanosis Depression: PHQ-2:TOTAL POINT SCORE: 0 PHQ-9: ASSESSMENT: ICD-10-CM 1. HTN (hypertension), benign I10 2. Mixed hyperlipidemia E78.2 3. Impotence due to erectile dysfunction N52.9 4. Metabolic syndrome E88.81 5. Glucose intolerance (impaired glucose tolerance) R73.02 PLAN: Orders Placed This Encounter ??? sildenafil (VIAGRA) 100 MG tablet Sig: Take 1 Tab by mouth once daily as needed Dispense: 6 Tab Refill: 11 Goals ? ? Blood Pressure < 140/90 Medications Discontinued During This Encounter Medication Reason ??? pravastatin (PRAVACHOL) 40 MG tablet Completed previously Current Outpatient Prescriptions Medication Sig Dispense Refill ??? sildenafil (VIAGRA) 100 MG tablet Take 1 Tab by mouth once daily as needed 6 Tab 11 ??? valsartan (DIOVAN) 160 MG tablet Take 1 Tab by mouth once daily 30 Tab 5 ??? omeprazole (PRILOSEC) 20 MG capsule Take 1 Cap by mouth once daily 30 Cap 5 ??? albuterol HFA (PROVENTIL;VENTOLIN;PROAIR) 108 (90 BASE) MCG/ACT inhaler Inhale 2 Puffs by mouthevery 4 hours as needed for Shortness of Breath, Wheezing or Cough 1 Inhaler 0 ??? HYDROcodone-acetaminophen (NORCO) 7.5-325 MG tablet Take 1 Tab by mouth every 4 hours as neededfor Pain Earliest Fill Date: 07/23/16 (Patient taking differently: Take 1 Tab by mouth every 4 hours as needed for Pain Only prn) 120 Tab 0 ??? albuterol HFA (PROAIR HFA) 108 (90 BASE) MCG/ACT inhaler Inhale 2 Puffs by mouth every 6 hours as needed Reported on 07/31/2016 No current facility-administered medications for this visit. Recent Labs Component Name 04/08/17 1055 WBC 6.1 RBC 5.22 HGB 16.8 HCT 49.1 MCV 94.1 MCHC 34.2 PLTCOUNT 178 MONOCYTPCT 9.1 EOSINPCT 3.1 LYMPHABS 1.78 MONOCYTABS 0.55 BASOABS 0.05 IMMGRANSABS 0.02 Recent Labs Component Name 04/08/17 1055 SODIUM 140 POTASSIUM 4.1 CHLORIDE 105 CO2 28 BUN 11 CREATININE 0.68 GLUCOSE 98 CALCIUM 8.7 ALBUMIN 3.7 ALKPHOS 83 ALT 16 AST 17 TBIL 0.4 TPROT 6.7 EGFR >60 Recent Labs Component Name 04/08/17 1055 CHOL 165 TRIG 177* HDL 47 LDLCALC 83 Recent Labs Component Name 04/08/17 1055 HGBA1C 5.3 Recent Labs Component Name 04/08/17 1054 [id number] 38.29 Told him labs all great and Tx was diet and weight loss and he accomplished this Now needs to maintain this and he is motivated to do this Got hi viagra and told him if has persistent issues he can call and get Testosterone labs and PSA SE of meds discussed with patient and best way to take medication. All questions answered. Safe use and storage of controlled meds reviewed with pt again today Return to office in 6 months. Patient instructed to call with any [...] HTN (hypertension), benign- Primary Essential hypertension, benign Mixed hyperlipidemia Impotence due to erectile dysfunction Impotence of organic origin Metabolic syndrome Dysmetabolic Syndrome X Glucose intolerance (impaired glucose tolerance) Impaired glucose tolerance test documented in this encounter Care Teams Vacuum Drier Operator Relationship Specialty Start Date End Date Alf Khan DO PCP - General Family Medicine 09/03/13 02/27/23 documented as of this encounter
--- OUTSIDE RECORDS SUMMARY | 2024-09-06 20:28 | XMS_ITS | Encounter Summary ---
Author Organization [facility] Address [address] [place] [address] Care Team Providers Care Senior Web Engineer Name Role Phone Alf Khan DO Primary Care Provider Stephan rosa Reason for Visit * Reason Onset Date Comments ER UC Follow-up 02/24/2018 Encounter Details Date Type Department Care Team (Late st Contact Info) Description 02/24/2018 Patient Outreach 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 Care Coordination outreach no longer needed. documented in this encounter Plan of Treatment Not on file documented as of this encounter Goals Goal Patient Goal Type Associated Problems Recent Progress Patient-Stated? Author Blood Pressure < 140/90 Blood Pressure 172/93(2022 8:59 AM CDT) No Zachary Moreno documented as of this encounter Visit Diagnoses Not on filedocumented in this encounter Care Teams Senior Web Engineer Relationship Specialty Start Date End Date Alf Khan DO PCP - General Family Medicine 09/03/13 02/27/23 documented as of this encounter
--- OUTSIDE RECORDS SUMMARY | 2024-09-06 20:28 | XMS_ITS | Encounter Summary ---
Author Organization [facility] Address [address] [place] [address] Care Team Providers Care Meter Installer Name Role Phone Alf Khan DO Primary Care Provider Stephan rosa Reason for Visit * Reason Comments Hypertension Follow-up pt here today for b/p check Medication Check pharmacy confirmewit h pt Encounter Details Date Type Department Care Team (Late st Contact Info) Description 02/25/2019 11:30 AM CDT Office Visit [facility] - Family Medicine [address] [place] [address] Alf Khan DO Atopic dermatitis, unspecified type (Primary Dx); Hive; HTN (hypertension), benign Social History Tobacco Use Types Packs/Day Years Used Date Smoking Tobacco: Every Day Cigarettes 1.5 25 Started: 12/07/1985; Last attempted to quit: 12/07/2010 Smokeless Tobacco: Never Alcohol Use Standard Drinks/Week Comments Yes 0 (1 standard drink = 0.6 oz pur e alcohol) social Sex and Gender Information Value Date Recorded Sex Assigned at Male 08/31/2020 7:44 AM 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 Gender Identity Male 08/31/2020 7:44 AM 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 SPECIALIST Sexual Orientation Straight 08/31/2020 7: 44 AM 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 SPECIALIST documented as of this encounter Last Filed Vital Signs Vital Sign Reading Time Taken Comments Blood Pressure 130/82 02/25/2019 11:42 AM CDT Pulse 74 02/25/2019 11:42 AM CDT Temperature 36.7 ??C (98.1 ??F) 02/25/2019 11:42 AM C DT Respiratory Rate - - Oxygen Saturation 98% 02/25/2019 11:42 AM CDT Inhaled Oxygen Concentration - - Weight 98.4 kg (217 lb) 02/25/2019 11:42 AM CDT Height 180.3 cm (5' 11 ) 02/25/2019 11:42 AM CDT Body Mass Index 30.27 02/25/2019 11:42 AM CDT documented in this encounter Functional [...] Progress Notes * Alf Khan, DO - 02/25/2019 12:02 PM CDT Office Visit, Established Patient, [id number] HISTORY: SYDNEE Doughertydominique Crockett is a 53 year old male patient, here for: pain medication refill Chief Complaint Patient presents with ??? Hypertension Follow-up pt here today for b/p check ??? Medication Check pharmacy confirmewith pt HPI: Follow up for hives, still has some. Itchy, but controlled. Wondering if he can get more prednisone to control the hives he still has left. In the morning he notices it's worse. I told this is Z-Mariano was not how he should not keep having hives and then he showed me the rash she has today and it looks more like an eczema type rash. It is red and blotchy with little tiny dots and it is not whelped up like a hive rash. He says he still hasa lot itchy called on his legs and buttocks and it does not leave him alone at sitting day and night and it is controlled with the medications but is still itching all the time. He has only take morecortisone because the rash is still bothered tremendously says even though I do not see a lot of evidence of today. Is possible that was this Z-Mariano that caused this, it is hard to say BP good today and no side effects to meds BP Readings from Last 3 Encounters: 02/25/19 130/82 02/18/19 130/88 02/12/19 128/80 I told him a lot of prednisone could make his sugar go up rv servicer are well controlled he has been andhas been very well controlled lately is more of a metabolic syndrome glucose intolerance situation with him. He has no shortness of breath, he has no angioneurotic edema symptoms no throat swelling, and no wheezing Patient Active Problem List Diagnosis Date Noted [...] Wheezing or Cough 1 Inhaler 2 ??? azithromycin (ZITHROMAX) 250 MG tablet Take 2 qd first day and then 1 qd 6 tablet 0 ??? HYDROcodone-acetaminophen (NORCO) 5-325 MG [...] until gone (Patient not taking: Reported on 02/25/2019) 20 tablet 0 ??? sildenafil (REVATIO) 20 MG tablet TAKE 5 TABLETS BY MOUTH ONCE DAILY NEEDED 30 tablet 11 ??? sildenafil (VIAGRA) 100 MG tablet Take 1 tablet by mouth once daily as needed (Patient not taking: Reported on 12/24/2018) 6 tablet 5 No facility-administered medications prior to visit. PFSH, other pertinent history: Allergies Allergen Reactions ??? Perry Inhibitors Cough ??? Zithromax [Azithromycin] Itching Social History Smoking status: Current Every Day Smoker Packs/day: 1.50 Years: 25.00 Last attempt to quit: 12/07/2010 Smokeless status: Never Used Alcohol use: Yes 0.0 oz/week 0 Standard drinks or equivalent per week Comment: social Drug use: No Sexual activity: Not on file Family History Problem Relation Age of Onset ??? Cancer - Lung Mother EXAM BP 130/82 Pulse 74 Temp 98.1 ??F (36.7 ??C) Wt 98.4 kg (217 lb) SpO2 98% BMI 30.27 kg/m2 FiO2: General appearance - alert, O x3, in no acute distress Neck- no anterior cervical adenopathy, carotids have no bruits Chest - CTA Heart - normal rate, regular rhythm, normal S1, S2, no murmurs, rubs, clicks or gallops Ext-no pretibial or pedal edema, no neurovascular deficits seen in the upper or lower extremities Skin-has scattered tiny erythematous rash all less than half a cm on his right buttocks and upper thigh today is covering pretty much from his posterior buttocks to about mid thigh. He complains of itching down both legs although no rashes seen Depression: PHQ-2:TOTAL POINT SCORE: 0 PHQ-9: ASSESSMENT: ICD-10-CM 1. Atopic dermatitis, unspecified type L20.9 2. Hive L50.9 3. HTN (hypertension), benign I10 PLAN: Orders Placed This Encounter ??? predniSONE (DELTASONE) 10 MG tablet Sig: Take 2 qd x 7 days, then 1 qd x 7 days Dispense: 20 tablet Refill: 0 ??? triamcinolone acetonide (KENALOG) 0.1 % cream Sig: Apply to affected area 3 times daily Dispense: 453.6 g Refill: 2 Goals ? ? Blood Pressure < 140/90 ??? Quit smoking / using tobacco Medications Discontinued During This Encounter Medication Reason ??? predniSONE (DELTASONE) 10 MG tablet Reorder Current Outpatient Prescriptions Medication Sig Dispense Refill ??? albuterol HFA (PROVENTIL;VENTOLIN;PROAIR) 108 (90 Base) MCG/ACT inhaler Inhale 2 puffs by mouthevery 4 hours as needed for Shortness of Breath, Wheezing or Cough 1 Inhaler 2 ??? azithromycin (ZITHROMAX) 250 MG tablet Take 2 qd first day and then 1 qd 6 tablet 0 ??? HYDROcodone-acetaminophen (NORCO) 5-325 MG [...] 0 ??? predniSONE (DELTASONE) 10 MG tablet Take 2 qd x 7 days, then 1 qd x 7 days 20 tablet 0 ??? sildenafil (REVATIO) 20 MG tablet TAKE 5 TABLETS BY MOUTH ONCE DAILY NEEDED 30 tablet 11 ??? sildenafil (VIAGRA) 100 MG tablet Take 1 tablet by mouth once daily as needed (Patient not taking: Reported on 12/24/2018) 6 tablet 5 ??? triamcinolone acetonide (KENALOG) 0.1 % cream Apply to affected area 3 times daily 453.6 g 2 No current facility-administered medications for this visit. 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 The rash she has today does not look like eyes but his girlfriend him complained that these are hives that he is getting, he just does not have this morning. I told needs to put body lotion nonscented, and triamcinolone cream on the eczema type rash he has on his right hip region. The case he has high sense to the holiday weekend getting prednisone 20 mg x1 week and 10 mg x1 week. Wrote him office he has to the told to come back and see me in 2 weeks Continue all other treatment as is SE of meds discussed with patient and best way to take medication. All questions answered. Safe use and storage of controlled meds reviewed with pt again today Return to office in 2 weeks. Patient instructed to call with any concerns [...] as of this encounter Visit Diagnoses Diagnosis Atopic dermatitis, unspecified type- Primary Hive Urticaria, unspecified HTN (hypertension), benign Essential hypertension, benign documented in this encounter Care Teams Meter Installer Relationship Specialty Start Date End Date Alf Khan DO PCP - General Family Medicine 09/03/13 02/27/23 documented as of this encounter
--- OUTSIDE RECORDS SUMMARY | 2024-09-06 20:28 | XMS_ITS | Encounter Summary ---
Author Organization [facility] Address [address] [place] [address] Care Team Providers Care Alumni Relations Manager Name Role Phone Alf Khan DO Primary Care Provider Stephan rosa Encounter Details Date Type Department Care Team (Latest Contact Info) Description 04/28/2020 Travel Social History Tobacco Use Types Packs/Day Years Used Date Smoking Tobacco: Every Day Cigarettes 1.5 25 Started: 12/07/1985; Last attempted to quit: 12/07/2010 Smokeless Tobacco: Never Alcohol Use Standard Drinks/Week Comments Yes 0 (1 standard drink = 0.6 oz pur e alcohol) social Sex and Gender Information Value Date Recorded Sex Assigned at Male 08/31/2020 7:44 AM MANAGER MALL Gender Identity Male 08/31/2020 7:44 AM MANAGER MALL Sexual Orientation Straight 08/31/2020 7: 44 AM MANAGER MALL COVID-19 Exposure Response Date Recorded In the [...] on filedocumented in this encounter Care Teams Alumni Relations Manager Relationship Specialty Start Date End Date Alf Khan DO PCP - General Family Medicine 09/03/13 02/27/23 documented as of this encounter
--- OUTSIDE RECORDS SUMMARY | 2024-09-06 20:28 | XMS_ITS | Encounter Summary ---
Author Organization [facility] Address [address] [place] [address] Care Team Providers Care Mount Loader Name Role Phone Alf Khan DO Primary Care Provider Stephan rosa Reason for Visit * Reason Comments URI pt here today with n ose,head and chest congestion with amrik coughing and nasal driange for a week Medication Check pharmacy confirmed w ith pt Encounter Details Date Type Department Care Team (Latest Contact Info) Description 05/12/2018 4:00 PM CDT Office Visit [facility] - Family Medicine [address] [place] [address] Alf Khan DO Allergic sinusitis (Primary Dx); Wheezing; HTN (hypertension), benign; Degeneration of lumbar or lumbosacral intervertebral disc [...] Sex Assigned at Male 08/31/2020 7:44 AM 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 Gender Identity Male 08/31/2020 7:44 AM 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 Sexual Orientation Straight 08/31/2020 7: 44 AM 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 documented as of this encounter Last Filed Vital Signs Vital Sign Reading Time Taken Comments Blood Pressure 140/88 05/12/2018 3:54 PM CDT Pulse 76 05/12/2018 3:54 PM CDT Temperature 36.5 ??C (97.7 ??F) 05/12/2018 3:54 PM CD T Respiratory Rate - - Oxygen Saturation 96% 05/12/2018 3:54 PM CDT Inhaled Oxygen Concentration - - Weight 99.8 kg (220 lb) 05/12/2018 3:54 PM CDT Height 180.3 cm (5' 11 ) 05/12/2018 3:54 PM CDT Body Mass Index 30.68 05/12/2018 3:54 PM CDT documented in this encounter Functional [...] * Patient Instructions* Puja Raymundo R - 05/12/2018 3:54 PM CDT Caring for Your High Blood [...] Where can I go for more information? [place] Heart Association National Center: http://www.americanheart.org 1. In the top header, click ???Conditions?? . 2. In the top header, click ???high blood pressure.?? 3. For a printable blood pressure tracker, scroll toward the bottom of the page to Related Tools, and click ???HBP Trackers.?? 8-186-RMX-USA-1 or ( ) National Heart, Lung and Blood [place]: http://www.nhlbi.nih.gov/health/infoctr/index.htm documented in this encounter Progress Notes * Alf Khan, - 05/12/2018 4:14 PM CDT Office Visit, Established Patient, [id number] HISTORY: SYDNEE Trenton Crockett is a 52 y.o. male patient, here for: Chief Complaint Patient presents with ??? URI pt here today with nose,head and chest congestion with amrik coughing and nasal driange for a week ??? Medication Check pharmacy confirmed with pt HPI: Has been feeling ill for 8 days and no Fever and no Chills. Sick people but no know illness Sick Contacts and no OTC medications. yes ST, drainage and plugged and clear. No known allergy but happens in fall Sinus Sx, no Ear pain/problems and no Swollen glands and dry hacking wheezy cough. Has CHOPRA and body ache fatigue no GI Sx Cont to have chronic LB pain and has take at least 2 pain pills a day and sharp and burning type pain. W/O pain Rx can get to 8-9/10 and with pain meds pain lowers to < 4/10 and no SE to Rx. He isable to get thru work w/o pain meds he says and he has to use to control the pain and told him needto ck w/ work about dangerous equipment at work and pain Rx No CP and some SOB Patient Active Problem List Diagnosis Date [...] daily as needed 6 tablet 5 ??? HYDROcodone-acetaminophen (NORCO) 5-325 MG tablet Take 1 tablet by mouth every 4 hours as needed for Pain 30 tablet 0 ??? HYDROcodone-acetaminophen (NORCO) 7.5-325 MG [...] hours as needed Reported on 07/31/2016 No facility-administered medications prior to visit. PFSH, [...] ??? Cancer - Lung Mother EXAM BP 140/88 Pulse 76 Temp 97.7 ??F (36.5 ??C) Wt 99.8 kg (220 lb) SpO2 96% BMI 30.68 kg/m2 FiO2: General appearance - ill-appearing Eyes - pupils equal and reactive, extraocular eye movements intact, conjunctiva red irritated Ears - bilateral TM's and external ear canals normal Nose - mucosal congestion, clear rhinorrhea and purulent rhinorrhea Mouth - mucous membranes moist, pharynx normal without lesions Neck - bilateral symmetric anterior adenopathy Chest - mid insp and exp wheezes all baer, mild Heart - normal rate, regular rhythm, normal S1, S2, no murmurs, rubs, clicks or gallops Extremities - no pedal edema Back- has a decrease painful ROM and SLR is neg Skin-no rashes in visible areas Depression: PHQ-2: PHQ-9: ASSESSMENT: ICD-10-CM 1. Allergic sinusitis J30.9 2. Wheezing R06.2 3. HTN (hypertension), benign I10 4. Degeneration of lumbar or lumbosacral intervertebral disc M51.37 PLAN: Orders Placed This Encounter ??? HYDROcodone-acetaminophen (NORCO) 7.5-325 MG tablet Sig: Take 1 tablet by mouth every 4 hours as needed for Pain Dispense: 120 tablet Refill: 0 The patient has 3 separate Rx; 2 post dated as allowed by law. 3 Mo of RX do NOT DELETE ??? HYDROcodone-acetaminophen (NORCO) 7.5-325 MG tablet Sig: Take 1 tablet by mouth every 4 hours as needed for Pain Dispense: 120 tablet Refill: 0 ??? predniSONE (DELTASONE) 10 MG tablet Si qd x 2 days, pc then 1 less pill every 2 days until gone Dispense: 20 tablet Refill: 0 ??? albuterol HFA (PROVENTIL;VENTOLIN;PROAIR) 108 (90 BASE) MCG/ACT inhaler Sig: Inhale 2 puffs by mouth every 4 hours as needed for Shortness of Breath, Wheezing or Cough Dispense: 1 Inhaler Refill: 0 ??? azithromycin (ZITHROMAX) 250 MG tablet Sig: Take 2 qd first day and then 1 qd Dispense: 6 tablet Refill: 0 Medications Discontinued During This Encounter Medication Reason ??? albuterol HFA (PROAIR HFA) 108 (90 BASE) MCG/ACT inhaler Duplicate order ??? HYDROcodone-acetaminophen (NORCO) 7.5-325 MG tablet Reorder ??? HYDROcodone-acetaminophen (NORCO) 7.5-325 MG tablet Reorder ??? albuterol HFA (PROVENTIL;VENTOLIN;PROAIR) 108 (90 BASE) MCG/ACT inhaler Duplicate order Current Outpatient Prescriptions Medication Sig Dispense Refill ??? [START ON 06/20/2018] HYDROcodone-acetaminophen (NORCO) 7.5-325 MG tablet Take 1 tablet by mouth every 4 hours as needed for Pain 120 tablet 0 ??? HYDROcodone-acetaminophen (NORCO) 7.5-325 MG tablet Take 1 tablet by mouth every 4 hours as needed for Pain 120 tablet 0 ??? predniSONE (DELTASONE) 10 MG tablet 4 qd x 2 days, pc then 1 less pill every 2 days until gone 20 tablet 0 ??? albuterol HFA (PROVENTIL;VENTOLIN;PROAIR) 108 (90 BASE) MCG/ACT inhaler Inhale 2 puffs by mouthevery 4 hours as needed for Shortness of Breath, Wheezing or Cough 1 Inhaler 0 ??? azithromycin (ZITHROMAX) 250 MG tablet Take 2 qd first day and then 1 qd 6 tablet 0 ??? sildenafil (REVATIO) 20 MG tablet TAKE 5 TABLETS BY MOUTH ONCE DAILY NEEDED 25 tablet 11 ??? sildenafil (VIAGRA) 100 MG tablet Take 1 tablet by mouth once daily as needed 6 tablet 5 ??? HYDROcodone-acetaminophen (NORCO) 5-325 MG tablet Take 1 tablet by mouth every 4 hours as needed for Pain 30 tablet 0 No current facility-administered medications for this visit. got him Tx for allergy and sinusitis RF pain Rx, he needs to Rx for 3 mo and has Physical job Cont all Rx as is SE of meds discussed with patient and best way to take medication. All questions answered. Safe use and storage of controlled meds reviewed with pt again today Return to office in 1-2 week prn. Patient instructed to call with any concerns or problems. documented in this encounter Plan of Treatment Not on file documented as of this encounter Goals Goal Patient Goal Type Associated Problems Recent Progress Patient-Stated? Author Blood Pressure < 140/90 Blood Pressure 172/93(2022 8:59 AM CDT) No Zachary Moreno documented as of this encounter Visit Diagnoses Diagnosis Allergic sinusitis- Primary Allergic rhinitis, cause unspecified Wheezing HTN (hypertension), benign Essential hypertension, benign Degeneration of lumbar or lumbosacral intervertebral disc documented in this encounter Care Teams Mount Loader Relationship Specialty Start Date End Date Alf Khan DO PCP - General Family Medicine 09/03/13 02/27/23 documented as of this encounter
--- OUTSIDE RECORDS SUMMARY | 2024-09-06 20:28 | XMS_ITS | Encounter Summary ---
Author Organization [facility] Address [address] [place] [address] Care Team Providers Care Slip Maker Name Role Phone Alf Khan DO Primary Care Provider Stephan rosa Reason for Visit * Reason Comments Refill Request Encounter Details Date Type Department Care Team (Late st Contact Info) Description 12/18/2017 Refill 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 sildenafil (REVATIO) 20 MG tablet [Pharmacy Med Name: SILDENAFIL 20 MG TABLET] 25 tablet 11 Sig: TAKE 5 TABLETS BY MOUTH ONCE DAILY NEEDED MARTÍNEZ 11/19/17 documented in this encounter Plan of Treatment Not on file documented as of this encounter Goals Goal Patient Goal Type Associated Problems Recent Progress Patient-Stated? Author Blood Pressure < 140/90 Blood Pressure 172/93(2022 8:59 AM CDT) No Zachary Moreno documented as of this encounter Visit Diagnoses Not on filedocumented in this encounter Care Teams Slip Maker Relationship Specialty Start Date End Date Alf Khan DO PCP - General Family Medicine 09/03/13 02/27/23 documented as of this encounter
--- OUTSIDE RECORDS SUMMARY | 2024-09-06 20:28 | XMS_ITS | Encounter Summary ---
Author Organization [facility] Address [address] [place] [address] Care Team Providers Care Registered Diet Technician Name Role Phone Alf Khan DO Primary Care Provider Stephan rosa Encounter Details Date Type Department Care Team (Latest Contact Info) Description 02/17/2020 Travel Social History Tobacco Use Types Packs/Day Years Used Date Smoking Tobacco: Every Day Cigarettes 1.5 25 Started: 12/07/1985; Last attempted to quit: 12/07/2010 Smokeless Tobacco: Never Alcohol Use Standard Drinks/Week Comments Yes 0 (1 standard drink = 0.6 oz pur e alcohol) social Sex and Gender Information Value Date Recorded Sex Assigned at Male 08/31/2020 7:44 AM SLEEP TECH Gender Identity Male 08/31/2020 7:44 AM SLEEP TECH Sexual Orientation Straight 08/31/2020 7: 44 AM SLEEP TECH COVID-19 Exposure Response Date Recorded In the last month, have you been in contact with someone who was confirmed or suspected to have Coronavirus / COVID-19? No / Unsure 02/17/2020 10:36 AM CDT documented as of this encounter [...] on filedocumented in this encounter Care Teams Registered Diet Technician Relationship Specialty Start Date End Date Alf Khan DO PCP - General Family Medicine 09/03/13 02/27/23 documented as of this encounter
--- OUTSIDE RECORDS SUMMARY | 2024-09-06 20:28 | XMS_ITS | Encounter Summary ---
Author Organization [facility] Address [address] [place] [address] Care Team Providers Care Systems Support Engineer Name Role Phone Alf Khan DO Primary Care Provider Stephan rosa Reason for Visit * Reason Comments MEDICATION REFILL pt here today for me dication refill Encounter Details Date Type Department Care Team (Latest Contact Info) Description 09/15/2018 3:30 PM DIET KITCHEN COOK Office Visit [facility] - Family Medicine [address] [place] [address] Alf Khan DO Degeneration of lumbar or lumbosacral intervertebral disc (Primary Dx); HTN (hypertension), benign; Degeneration of cervical intervertebral disc; Smoker Social History Tobacco Use Types Packs/Day Years Used Date Smoking Tobacco: Every Day Cigarettes 1.5 25 Started: 12/07/1985; Last attempted to quit: 12/07/2010 Smokeless Tobacco: Never Alcohol Use Standard Drinks/Week Comments Yes 0 (1 standard drink = 0.6 oz pur e alcohol) social Sex and Gender Information Value Date Recorded Sex Assigned at Male 08/31/2020 7:44 AM DIET KITCHEN COOK Gender Identity Male 08/31/2020 7:44 AM DIET KITCHEN COOK Sexual Orientation Straight 08/31/2020 7: 44 AM DIET KITCHEN COOK documented as of this encounter Last Filed Vital Signs Vital Sign Reading Time Taken Comments Blood Pressure 130/78 09/15/2018 3:40 PM DIET KITCHEN COOK Pulse 91 09/15/2018 3:40 PM DIET KITCHEN COOK Temperature 36.8 ??C (98.2 ??F) 09/15/2018 3:40 PM CS T Respiratory Rate - - Oxygen Saturation 96% 09/15/2018 3:40 PM DIET KITCHEN COOK Inhaled Oxygen Concentration - - Weight 97.5 kg (215 lb) 09/15/2018 3:40 PM DIET KITCHEN COOK Height 180.3 cm (5' 11 ) 09/15/2018 3:40 PM DIET KITCHEN COOK Body Mass Index 29.99 09/15/2018 3:40 PM DIET KITCHEN COOK documented in this encounter Functional Status Functional [...] * Patient Instructions* Puja Raymundo R - 09/15/2018 3:41 PM DIET KITCHEN COOK Caring for Your High Blood Pressure Medications ??? Keep a written list of what medicines you are taking and when you take them. Bring the list of your medicines or the pill bottles when you see your provider. Learn why you take each medicine. Askyour provider or pharmacist for information about your medicines. ??? Do not take [id number] medicine or herbal supplements without talking to [...] Where can I go for more information? [place] [employer] Association National Center: http://www.americanheart.org 1. In the top header, click ???Conditions?? . 2. In the top header, click ???high blood pressure.?? 3. For a printable blood pressure tracker, scroll toward the bottom of the page to Related Tools, and click ???HBP Trackers.?? 9-861-UJZ-USA-1 or ( ) National Heart, Lung and Blood [place]: http://www.nhlbi.nih.gov/health/infoctr/index.htm KITCHEN COOK documented in this encounter Progress Notes * Alf Khan, - 09/15/2018 4:02 PM CST Office Visit, Established Patient, [id number] HISTORY: CC Trenton Crockett is a 52 y.o. male patient, here for: pain medication refill Chief Complaint Patient presents with ??? MEDICATION REFILL pt here today for medication refill HPI: Coming in for a refill on pain medication has lower and mid back pain that is acute sharp pains with burning in his mid back when he is not taking the medications. 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 Denies radicular pain down his legs orarms, denies numbness in lower and upper extremities, denies weakness. Has lost weight, is eating healthier, and quit smoking a year ago. Still doing well. BP ok. Wt Readings from Last 3 Encounters: 09/15/18 97.5 kg (215 lb) 05/12/18 99.8 kg (220 lb) 02/24/18 98 kg (216 lb) ADDENDUM ? The T-1/2 level appears normal [...] by: Lilliam Morris on 04/25/2009 1:25 PM Has not used albuterol for a while no recent breathing issues, states he quit for 7 years and is smoking again. Quit smoking last time on wellbutrin but felt tired on the medication. He is not ready to try this again and said he will let us know. He had normal A1c over a year ago, and his last lipids are normal and he really does not want to dolabs today. Since they were both normal last time I told him we can put it off because he kept his weight down, unfortunate because he started smoking and. Denies CP or SOB. Wt Readings from Last 3 Encounters: 09/15/18 97.5 kg (215 lb) 05/12/18 99.8 kg (220 lb) 02/24/18 98 kg (216 lb) Patient Active Problem List Diagnosis Date [...] every 4 hours as needed for Pain 78 tablet 0 ??? HYDROcodone-acetaminophen (NORCO) 7.5-325 MG tablet Take 1 tablet by mouth every 4 hours as needed for Pain 120 tablet 0 ??? predniSONE (DELTASONE) 10 MG tablet 4 qd x 2 days, pc then 1 less pill every 2 days until gone 20 tablet 0 ??? sildenafil (REVATIO) 20 MG tablet TAKE 5 TABLETS BY MOUTH ONCE DAILY NEEDED 25 tablet 11 ??? sildenafil (VIAGRA) 100 MG tablet Take 1 tablet by mouth once daily as needed 6 tablet 5 No facility-administered medications prior [...] ??? Cancer - Lung Mother EXAM BP 130/78 Pulse 91 Temp 98.2 ??F (36.8 ??C) Wt 97.5 kg (215 lb) SpO2 96% BMI 29.99 kg/m2 FiO2: General appearance - alert, well appearing, and in no distress and oriented to person, place, and time Chest - clear to auscultation, no wheezes, rales or rhonchi, symmetric air entry Heart - normal rate, regular rhythm, normal S1, S2, no murmurs, rubs, clicks or gallops Back exam - limited range of motion, pain with motion noted during exam, tenderness across the lower back. It is not in 1 specific area he has pain right left and midline straight leg raising is negative Neurological - alert, oriented, normal speech, no focal findings or movement disorder noted Extremities - no pretibial or pedal edema Skin-no visible rash Depression: PHQ-2:TOTAL POINT SCORE: 0 PHQ-9: ASSESSMENT: ICD-10-CM 1. Degeneration of lumbar or lumbosacral intervertebral disc M51.37 2. HTN (hypertension), benign I10 3. Degeneration of cervical intervertebral disc M50.30 4. Smoker F17.200 PLAN: Orders Placed This Encounter ??? HYDROcodone-acetaminophen (NORCO) 5-325 MG tablet Sig: Take 1 tablet by mouth every 4 hours as needed for Pain Dispense: 120 tablet Refill: 0 ??? HYDROcodone-acetaminophen (NORCO) 7.5-325 MG tablet Sig: Take 1 tablet by mouth every 4 hours as needed for Pain Dispense: 120 tablet Refill: 0 Post dated Rx do not delete Goals ? ? Blood Pressure < 140/90 Medications Discontinued During This Encounter Medication Reason ??? azithromycin (ZITHROMAX) 250 MG tablet Discontinued previously ??? predniSONE (DELTASONE) 10 MG tablet Discontinued previously ??? HYDROcodone-acetaminophen (NORCO) 5-325 MG tablet Reorder ??? HYDROcodone-acetaminophen (NORCO) 7.5-325 MG tablet Reorder Current Outpatient Prescriptions Medication Sig Dispense Refill ??? albuterol HFA (PROVENTIL;VENTOLIN;PROAIR) 108 (90 BASE) MCG/ACT inhaler Inhale 2 puffs by mouthevery 4 hours as needed for Shortness of Breath, Wheezing or Cough 1 Inhaler 0 ??? HYDROcodone-acetaminophen (NORCO) 5-325 MG tablet Take 1 tablet by mouth every 4 hours as needed for Pain 120 tablet 0 ??? [START ON 10/23/2018] HYDROcodone-acetaminophen (NORCO) 7.5-325 MG tablet Take 1 tablet by mouthevery 4 hours as needed for Pain 120 tablet 0 ??? HYDROcodone-acetaminophen (NORCO) 7.5-325 MG tablet Take 1 tablet by mouth every 4 hours as needed for Pain 78 tablet 0 ??? sildenafil (REVATIO) 20 MG tablet TAKE 5 TABLETS BY MOUTH ONCE DAILY NEEDED 25 tablet 11 ??? sildenafil (VIAGRA) 100 MG tablet Take 1 tablet by mouth once daily as needed 6 tablet 5 No current facility-administered medications for this visit. He has lost weight because he is started smoking again and offered smoking help and he does not want take Wellbutrin again. He said he may take the future but is not want to take it today. He has not taken labs her A1c or lipids and about a year and he begged off doing them today Got 2 Rx for pain med Continue all other treatment as is SE of meds discussed with patient and best way to take medication. All questions answered. Safe use and storage of controlled meds reviewed with pt again today Return to office in 3 months. Patient instructed to call with any concerns or problems. KITCHEN COOK documented in this encounter Plan of Treatment Not on file documented as of this encounter Goals Goal Patient Goal Type Associated Problems Recent Progress Patient-Stated? Author Blood Pressure < 140/90 Blood Pressure 172/93(2022 8:59 AM CDT) No Zachary Moreno documented as of this encounter Visit Diagnoses Diagnosis Degeneration of lumbar or lumbosacral intervertebral disc- Primary HTN (hypertension), benign Essential hypertension, benign Degeneration of cervical intervertebral disc Smoker Tobacco use disorder documented in this encounter Care Teams Systems Support Engineer Relationship Specialty Start Date End Date Alf Khan DO PCP - General Family Medicine 09/03/13 02/27/23 documented as of this encounter
--- OUTSIDE RECORDS SUMMARY | 2024-09-06 20:28 | XMS_ITS | Encounter Summary ---
Author Organization [facility] Address [address] [place] [address] Care Team Providers Care Programming Coordinator Name Role Phone Alf Khan DO Primary Care Provider Stephan rosa Reason for Visit * Reason Onset Date Comments Update 01/22/2017 Encounter Details Date Type Department Care Team (Late st Contact Info) Description 01/22/2017 Telephone [facility] Medical [facility] - Family [facility] [address] [place], [place] [id number] Alf Khan DO Update Social History Tobacco Use Types Packs/Day Years Used Date Smoking Tobacco: Former Cigarettes 1.5 25 0 12/07/1985 - 12/07/2010 Smokeless Tobacco: Never Alcohol Use Standard Drinks/Week Comments Yes 0 (1 standard drink = 0.6 oz pur e alcohol) social Sex and Gender Information Value Date Recorded Sex Assigned at Male 08/31/2020 7:44 AM TANK INSPECTOR Gender Identity Male 08/31/2020 7:44 AM TANK INSPECTOR Sexual Orientation Straight 08/31/2020 7: 44 AM TANK INSPECTOR documented as of this encounter Functional Status [...] encounter Miscellaneous Notes * Telephone Encounter - Lili Hollis - 01/22/2017 2:40 PM CDT Pt called to make pt co pay of 30.00 payment taken and given to Elham at front end software engineer documented in this encounter Plan of Treatment Not on file documented as of this encounter Goals Goal Patient Goal Type Associated Problems Recent Progress Patient-Stated? Author Blood Pressure < 140/90 Blood Pressure 172/93(2022 8:59 AM CDT) Zachary Funez documented as of this encounter Visit Diagnoses Not on filedocumented in this encounter Care Teams Programming Coordinator Relationship Specialty Start Date End Date Alf Khan DO PCP - General Family Medicine 09/03/13 02/27/23 documented as of this encounter
--- OUTSIDE RECORDS SUMMARY | 2024-09-06 20:28 | XMS_ITS | Encounter Summary ---
Author Organization [facility] Address [address] [place] [address] Care Team Providers Care Fiber Glass Worker Name Role Phone Alf Khan DO Primary Care Provider Stephan rosa Reason for Visit * Auth/Cert Specialty Diagnoses / Procedures Referred By Jean sosa Referred To Contact Procedures INCISION AND DRAINAGE ABSCESS PERIRECTAL Referral ID Status Reason Start Date Expiration Date Visits Re quested Visits Authorized [id number] 1 1 Encounter Details Date Type Department Care Team (Latest Contact Info) Description 09/05/2017 1:58 PM SOCKET PULLER - 09/05/2017 5:54 PM SOCKET PULLER Hospital Encounter [facility] [address] [place] [address] [place] [id number] [facility] [address] [place] [address] Surgery General Discharge Disposition: Home or Self Care Social History Tobacco Use Types Packs/Day Years Used Date Smoking Tobacco: Former Cigarettes 1.5 25 0 12/07/1985 - 12/07/2010 Smokeless Tobacco: Never Alcohol Use Standard Drinks/Week Comments Yes 0 (1 standard drink = 0.6 oz pur e alcohol) social Sex and Gender Information Value Date Recorded Sex Assigned at Male 08/31/2020 7:44 AM SOCKET PULLER Gender Identity Male 08/31/2020 7:44 AM SOCKET PULLER Sexual Orientation Straight 08/31/2020 7: 44 AM SOCKET PULLER documented as of this encounter Last Filed Vital Signs Vital Sign Reading Time Taken Comments Blood Pressure 124/77 09/05/2017 4:30 PM SOCKET PULLER Pulse 63 09/05/2017 4:30 PM SOCKET PULLER Temperature 36.7 ??C (98 ??F) 09/05/2017 4:30 PM SOCKET PULLER Respiratory Rate 16 09/05/2017 4:30 PM SOCKET PULLER Oxygen Saturation 96% 09/05/2017 4:30 PM SOCKET PULLER Inhaled Oxygen Concentration - - Weight 105.7 kg (233 lb) 09/05/2017 2:35 PM SOCKET PULLER Height 180.3 cm (5' 11 ) 09/05/2017 2:35 PM SOCKET PULLER Body Mass Index 32.5 09/05/2017 2:35 PM SOCKET PULLER documented in this encounter Functional Status Functional [...] No 04/15/2014 documented as of this encounter Medications at Time of Discharge Medication Sig Dispensed Refills Start Date End Date albuterol HFA (PROAIR HFA) 108 (90 BASE) MCG/ACT inhaler Inhale 2 Puffs by mouth every 6 hours as needed Reported on 07/31/2016 05/12/2018 albuterol HFA (PROVENTIL;VENTOLIN;IN OAIR) 108 (90 BASE) MCG/ACT inhaler Inhale 2 Puffs by mouth every 4 hours as needed for Shortness of Breath, Wheezing or Cough 1 Inhaler 07/31/2016 05/12/2018 doxycycline hyclate (VIBRAMYCIN) 100 MG capsule Take 1 capsule by mouth 2 times daily 14 capsule 09/04/2017 11/19/2017 HYDROcodone-acetaminop hen (NORCO) 5-325 MG tablet Take 1 tablet by mouth every 4 hours as needed for Pain 30 tablet 09/05/2017 09/15/2018 HYDROcodone-acetaminop hen (NORCO) 7.5-325 MG tablet Take 1 tablet by mouth every 4 hours as needed for Pain 120 tablet 09/04/2017 11/19/2017 sildenafil (VIAGRA) 100 MG tablet Take 1 Tab by mouth once daily as needed 6 Tab 11 04/08/2017 11/19/2017 documented as of this encounter H&P Notes * Donaldo Sadler MD - 09/05/2017 2:07 PM CST Surgical H&P Chief Complaint Mass. ?? History of Present Illness Lennie Quintanilla is a 51 y.o. male who is [...] doxycycline that he has not started yet. ?? Past Medical History: Diagnosis Date ??? GERD (gastroesophageal reflux disease) ? controlled ??? Motion sickness ? Pure hypercholesterolemia ? Snoring ? no c-pap ??? Unspecified essential hypertension ? Past Surgical History: Procedure Laterality Date ??? COLONOSCOPY WITH POLYPECTOMY ?? 04/15/2014 ?? Dr Rios ??? HERNIA REPAIR, VENTRAL ?? 06/03/2012 ??? [place] Tooth Extraction ? Outpatient Prescriptions Marked as Taking for the [...] 6 hours as needed Reported on 07/31/2016 ? Perry inhibitors ?? Family History Problem Relation Age of Onset ??? Cancer - Lung Mother ? Social History Substance Use Topics ??? Smoking status: Former Smoker ? Packs/day: 1.50 ? Years: 25.00 ? Quit date: 12/07/2010 ??? Smokeless tobacco: Never Used ??? Alcohol use 0.0 oz/week ? 0 Standard drinks or equivalent per week ? Comment: social ? Review of Systems A detailed 10 point review of systems was obtained and is negative other than the HPI. ?? Physical Examination: ?? Constitutional: Vital signs are stable and the patient is no acute distress. Eyes: Reveal no icterus. Neck: Neck is supple without JVD or bruit. Respiratory: Lungs are clear. Cardiovascular: Regular rate and rhythm. GI: Abdomen is soft and non tender. Musculoskeletal: All four extremities are warm and well perfused. Neurologic: Intact. Buttock: 4 cm infected mass right buttock just above the rectum ?? Impression/Plan Indu rectal abscess, 4 cm. Will plan for incision and drainage of perirectal abscess today in the OR. He states he has only had 2 cups of coffee today. He will be NPO until surgery. I have discussed the risks, benefits and alternatives to surgery with the patient who understands and wishes to proceed. ? Past Medical History: Diagnosis Date ??? GERD (gastroesophageal reflux disease) ? controlled ??? Motion sickness ? Pure hypercholesterolemia ? Snoring ? no c-pap ??? Unspecified essential hypertension ? ET PULLER documented in this encounter OR Notes * Operative - Donaldo Sadler MD - 09/05/2017 5:54 PM CST [facility] OPERATIVE REPORT PATIENT: : LENNIE QUINTANILLA MR#: [id number] ADMIT DATE: 09/05/2017 CSN: [id number] DATE OF SURGERY: 09/05/2017 : 1965 PHYSICIAN: Donaldo Sadler MD ROOM: [facility] PREOP DIAGNOSIS: Perirectal abscess. POSTOP DIAGNOSIS: Perirectal abscess. PROCEDURE: Incision and drainage of perirectal abscess. CLINICAL INDICATIONS: 51-year-old man who presented with a fairly large right rectal abscess. PROCEDURE: Under adequate general anesthesia, the patient was placed in the dorsal lithotomy position. Time-out was done. The large abscess was identified in his right buttock region, was incised and drained. Large amounts of purulent material were identified. The wound was copiously irrigated and packed open with iodoform gauze. The patient tolerated the procedure well. No complications. All sponge and needle counts were correct. Stable to recovery room. ESTIMATED BLOOD LOSS: Minimal. COMPLICATIONS: None. Donaldo Sadler MD TBC/MODL #: [id number] ET PULLER documented in this encounter Plan of Treatment Not on file documented as of this encounter Goals Goal Patient Goal Type Associated Problems Recent Progress Patient-Stated? Author Blood Pressure < 140/90 Blood Pressure 172/93(2022 8:59 AM CDT) No Zachary Moreno documented as of this encounter Procedures Procedure Name Priority Date/Time Associated Diagnosis Comments INCISION AND DRAINAGE ABSCESS RECTAL/PERIRECTAL 09/05/2017 3:01 PM SOCKET PULLER documented in this encounter Visit Diagnoses Diagnosis Perirectal abscess- Primary Abscess of anal and rectal regions documented in this encounter Administered Medications Inactive Administered Medications - up to 3 most recent administrations Medication Order MAR Action Action Date Dose Rate Site acetaminophen (TYLENOL) tablet 1,000 mg 1,000 mg, Oral, PRE-OP ONCE, 1 dose, On Althea 09/05/17 at 1439, Pre-op $ Given 09/05/2017 2:40 PM SOCKET PULLER 1,000 mg ceFAZolin (ANCEF) syringe 2,000 mg 2,000 mg (2 g), Intravenous, PRE-OP MULTIPLE, Starting on Althea 09/05/17 at 1439, Until Althea 09/05/17 at 1855, Administer 30 minutes prior to surgical incision. Repeat dose in 3 hours if surgical incision not closed. Administer over 3-5 minutes., Pre-op $ Given 09/05/2017 3:15 PM SOCKET PULLER 2 g HYDROcodone-acetaminophen (NORCO) 5-325 MG tablet 1 tablet 1 tablet, Oral, ONCE PRN, Mild Pain, 1 dose, Starting on Althea 09/05/17 at 1645, Until Althea 09/05/17 at 1646, Maximum allowable Acetaminophen amount = 4 Grams (4000 mg) / 24 hours., Post-op $ Given 09/05/2017 4:46 PM SOCKET PULLER 1 tablet lactated ringers infusion at 20 mL/hr, Intravenous, PRE-OP CONTINUOUS, Starting on Althea 09/05/17 at 1430, Until Althea 09/05/17 at 1855, Pre-op $ New Bag/Syringe 09/05/2017 2:31 PM SOCKET PULLER lactated ringers infusion at 20 mL/hr, Intravenous, PRE-OP CONTINUOUS, Starting on Althea 09/05/17 at 1445, Until Althea 09/05/17 at 1855, Pre-op $ New Bag/Syringe 09/05/2017 2:40 PM SOCKET PULLER 20 mL/hr oxyCODONE-acetaminophen (PERCOCET) 5-325 MG tablet 2 tablet 2 tablet, Oral, EVERY 4 HOURS PRN, Severe Pain, Starting on Althea 09/05/17 at 1645, Until Althea 09/05/17 at 1855, Post-op documented in this encounter Active and Recently Administered Medications Times are shown in SOCKET PULLER. Scheduled Medication Order 09/03/2017 09/04/2017 09/05/2017 acetaminophen (TYLENOL) tablet 1,000 mg (COMPLETED) 1,000 mg, Oral, PRE-OP ONCE, 1 dose, On Althea 09/05/17 at 1439, Pre-op 1440 ($ Given - Prov ider: Maddy Sanders RN) ceFAZolin (ANCEF) syringe 2,000 mg 2,000 mg (2 g), Intravenous, PRE-OP MULTIPLE, Starting on Althea 09/05/17 at 1439, Until Althea 09/05/17 at 1855, Administer 30 minutes prior to surgical incision. Repeat dose in 3 hours if surgical incision not closed. Administer over 3-5 minutes., Pre-op 1515 ($ Given - Prov ider: Jace Dozier APRN-[facility]) Continuous Medication Order 09/03/2017 09/04/2017 09/05/2017 lactated ringers infusion at 20 mL/hr, Intravenous, PRE-OP CONTINUOUS, Starting on Althea 09/05/17 at 1430, Until Althea 09/05/17 at 1855, Pre-op 1431 ($ New Bag/Syri nge - Provider: Jace Dozier APRN-FREEMAN)1537 (Anesthesia Volume Adjustment - Provider: LEONARDO Nielsen) lactated ringers infusion at 20 mL/hr, Intravenous, PRE-OP CONTINUOUS, Starting on Althea 09/05/17 at 1445, Until Althea 09/05/17 at 1855, Pre-op 1440 ($ New Bag/Syri nge - Provider: Maddy Sanders, MARIANA)1640 (Stopped - Provider: Lokesh Maguire RN) PRN Medication Order 09/03/2017 09/04/2017 09/05/2017 0.9% nacl irrigation solution (CANCELED) PRN, Starting on Althea 09/05/17 at 1529, Until Althea 09/05/17 at 1548, Intra-op 1529 ($ Given - Prov ider: Donaldo Sadler MD) HYDROcodone-acetaminophen (NORCO) 5-325 MG tablet 1 tablet (COMPLETED) 1 tablet, Oral, ONCE PRN, Mild Pain, 1 dose, Starting on Althea 09/05/17 at 1645, Until Althea 09/05/17 at 1646, Maximum allowable Acetaminophen amount = 4 Grams (4000 mg) / 24 hours., Post-op 1646 ($ Given - Prov ider: Lokesh Maguire RN) oxyCODONE-acetaminophen (PERCOCET) 5-325 MG tablet 2 tablet 2 tablet, Oral, EVERY 4 HOURS PRN, Severe Pain, Starting on Althea 09/05/17 at 1645, Until Althea 09/05/17 at 1855, Post-op documented in this encounter Care Teams Fiber Glass Worker Relationship Specialty Start Date End Date Alf Khan DO PCP - General Family Medicine 09/03/13 02/27/23 documented as of this encounter
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
--- OUTSIDE RECORDS SUMMARY | 2024-09-06 20:28 | XMS_ITS | Encounter Summary ---
Author Organization [facility] Address [address] [address] Care Team Providers Care Supervisor International Reservations Name Role Phone Alf Khan DO Primary Care Provider Stephan rosa Reason for Visit * Reason Onset Date Comments Refill Request 12/22/2018 Encounter Details Date Type Department Care Team (Late st Contact Info) Description 12/22/2018 Refill [facility] Medical [facility] - Family Medicine [address] [place] [address] Alf Khan, DO Refill Request Social History Tobacco Use Types Packs/Day Years Used Date Smoking Tobacco: Every Day Cigarettes 1.5 25 Started: 12/07/1985; Last attempted to quit: 12/07/2010 Smokeless Tobacco: Never Alcohol Use Standard Drinks/Week Comments Yes 0 (1 standard drink = 0.6 oz pur e alcohol) social Sex and Gender Information Value Date Recorded Sex Assigned at Male 08/31/2020 7:44 AM ORCHESTRA MUSICIAN Gender Identity Male 08/31/2020 7:44 AM ORCHESTRA MUSICIAN Sexual Orientation Straight 08/31/2020 7: 44 AM ORCHESTRA MUSICIAN documented as of this encounter Functional Status [...] * Telephone Encounter - Alina Vidal - 12/22/2018 12:21 PM CDT Appt scheduled for 12/24/18 * Telephone Encounter - Alina Vidal - 12/22/2018 12:17 PM CDT VM not set up * Telephone Encounter - Alf Khan DO - 12/22/2018 11:32 AM CDT has been 90 days, need apt every 90 days on Rx he know this * Telephone Encounter - Virginia Khan - 12/22/2018 10:49 AM CDT Trenton Crockett is in need of His Requested Prescriptions No prescriptions requested or ordered in this encounter Person calling for the refill: patient Last office visit 2018 Next Appointment scheduled: Visit date not found Last Refill for this medication 2018 Does patient have any new allergies since [...] filedocumented in this encounter Care Teams Supervisor International Reservations Relationship Specialty Start Date End Date Alf Khan DO PCP - General Family Medicine 09/03/13 02/27/23 documented as of this encounter
--- OUTSIDE RECORDS SUMMARY | 2024-09-06 20:28 | XMS_ITS | Encounter Summary ---
Author Organization [facility] Address [address] [place] [address] Care Team Providers Care Geosciences Professor Name Role Phone Alf Khan DO Primary Care Provider Stephan rosa Reason for Visit * Reason Comments MEDICATION REFILL Encounter Details Date Type Department Care Team (Latest Contact Info) Description 12/14/2019 11:15 AM CDT Video Visit [facility] - Family Medicine [address] [place] [address] Alf Khan DO Degeneration of lumbar or lumbosacral intervertebral disc ; HTN (hypertension), benign; Degeneration of cervical intervertebral [...] Sex Assigned at Male 08/31/2020 7:44 AM NEUROPHYSIOLOGICAL TECHNICIAN Gender Identity Male 08/31/2020 7:44 AM NEUROPHYSIOLOGICAL TECHNICIAN Sexual Orientation Straight 08/31/2020 7: 44 AM NEUROPHYSIOLOGICAL TECHNICIAN COVID-19 Exposure Response Date Recorded In the last month, have you been in contact with someone who was confirmed or suspected to have Coronavirus / COVID-19? No / Unsure 12/14/2019 10:34 AM CDT documented as of this encounter [...] encounter Progress Notes * Alf Khan, - 12/14/2019 11:31 AM CDT Office Visit, Established Patient, [id number] HISTORY: CC Trenton Crockett is a 54 year old male patient, here for: Chief Complaint Patient presents with ??? MEDICATION REFILL HPI: Telemedicine Note Patient Verification & Telemedicine Based Consent Today's visit was conducted virtually due to COVID-19 countermeasures. The patient has given verbalconsent to have today's visit conducted by this same means with treatment provided remotely. The patient verbally consents to the billing and collection practices of the provider's medical group. Assessment & Plan Trenton is a 54 year old male who has completed a telemedicine encounter regarding: Patient was trying to come into the office because he was out of pain medication. He says his low back pain is getting worse and he is having to take 3-4 every. He is technically due for a refill medication for a week but am of the end of The week. He says his pain is a 7/10 when he gets up in the morning dull aching pain sharp with movements. He says he takes a pain pill and sits still and goes down to 2-3/10. He says then in a few hours and will start rising back up toward the 7 and will takeanother pain pill. Looked through his chart and he has a history of a ruptured disc in his C-spine.He says he has done some PT to his back but is been a while. Right now he has no insurance so doing further evaluation testing and treatment are financially possible. I told him I will go ahead and refill his pain medicine for 60 days He continues smoke says he is smoking about 1 pack per day not really motivated to quit. Then he asked about Chantix and patches. I told him patches [id number] Chantix is very expensive Counseled the patient on smoking cessation, Chantix, [id number] nicotine replacement systems patches and gums. Told them the risks of smoking include lung cancer, bladder cancer, COPD, mi and stroke. They have to be involved in the smoking cessation program or it will not succeed. In other words I cannot make someone quit smoking they have to want to quit smoking. I can give you Chantix and advice on the [id number] nicotine systems and I would suggest to attempt to quit smoking as soon as you can. Spent 3-5 minutes explaining this to the patient and answering questions he then said he needed inhaler and I said why so you can smoke more? He did not think that was to funny but I told him, I will go ahead and get him inhaler should be motivation for him to need inhaler to breathe. No CP or SOB Patient location: Home This encounter was performed using: audio Reason for not using video for visit: patient does not have the technology 20 mins pt and 25 mins total The plan was reviewed with the patient and the patient confirmed understanding of the plan and all follow-up steps. All aspects of patient's medical history were reviewed and updated as documented in Epic Subjective Chief Complaint Patient presents with ??? MEDICATION REFILL A comprehensive 10 system ROS was reviewed. Pertinent positives and negatives are included in HPI or PMH. The remainder of the 10 system ROS was negative. Objective Alf Khan, DO no CP or SOB Patient Active Problem [...] Onset ??? Cancer - Lung Mother EXAM There were no vitals taken for this visit. telemedicine visit Depression: PHQ-2: PHQ-9: ASSESSMENT: ICD-10-CM 1. Degeneration of lumbar or lumbosacral intervertebral disc M51.37 2. HTN (hypertension), benign I10 3. Degeneration of cervical intervertebral disc M50.30 4. Smoker F17.200 PLAN: Orders Placed This Encounter ??? HYDROcodone-acetaminophen (NORCO) 5-325 MG tablet Sig: Take 1 tablet by mouth every 4 hours as needed for Pain Dx M50.30 Dispense: 120 tablet Refill: 0 Post date Rx ??? albuterol HFA (PROVENTIL;VENTOLIN;PROAIR) 108 (90 Base) MCG/ACT inhaler Sig: Inhale 2 puffs by mouth every 4 hours as needed for Shortness of Breath, Wheezing or Cough Dispense: 1 Inhaler Refill: 2 ??? HYDROcodone-acetaminophen (NORCO) 7.5-325 MG tablet Sig: Take 1 tablet by mouth every 4 hours as needed for Pain Dx M50.30 Dispense: 120 tablet Refill: 0 Goals ? ? Blood Pressure < 140/90 ??? Quit smoking / using tobacco Medications Discontinued During This Encounter Medication Reason ??? HYDROcodone-acetaminophen (NORCO) 5-325 MG tablet Reorder ??? albuterol HFA (PROVENTIL;VENTOLIN;PROAIR) 108 (90 Base) MCG/ACT inhaler Reorder ??? HYDROcodone-acetaminophen (NORCO) 7.5-325 MG tablet Reorder Current Outpatient Medications Medication Sig Dispense Refill ??? albuterol HFA (PROVENTIL;VENTOLIN;PROAIR) 108 (90 Base) MCG/ACT inhaler Inhale 2 puffs by mouthevery 4 hours as needed for Shortness of Breath, Wheezing or Cough 1 Inhaler 2 ??? [START ON 01/09/2020] HYDROcodone-acetaminophen (NORCO) 5-325 MG tablet Take 1 [...] for this visit. refill pain medicine for 2 months. Recommend he quit smoking and he said that he may try the patches he asked which strength told strongest 1, usually in 3 steps Continue all other treatment as is SE [...] disorder documented in this encounter Care Teams Geosciences Professor Relationship Specialty Start Date End Date Alf Khan DO PCP - General Family Medicine 09/03/13 02/27/23 documented as of this encounter
--- OUTSIDE RECORDS SUMMARY | 2024-09-06 20:28 | XMS_ITS | Encounter Summary ---
Author Organization [facility] Address [address] [place] [address] Care Team Providers Care Commercial Lines Account Assistant Name Role Phone Alf Khan DO Primary Care Provider Stephan rosa Reason for Visit * Reason Comments Follow-up pt here today for 2 weeks follow up Medication Check pharmacy confirmed w ith pt Encounter Details Date Type Department Care Team (Latest Contact Info) Description 03/17/2019 2:15 PM CDT Office Visit [facility] - Family Medicine [address] [place] [address] Alf Khan DO Hives (Primary Dx); HTN (hypertension), benign; Degeneration of lumbar or lumbosacral intervertebral disc; Mixed hyperlipidemia; Metabolic syndrome Social History Tobacco Use Types Packs/Day Years Used Date Smoking Tobacco: Every Day Cigarettes 1.5 25 Started: 12/07/1985; Last attempted to quit: 12/07/2010 Smokeless Tobacco: Never Alcohol Use Standard Drinks/Week Comments Yes 0 (1 standard drink = 0.6 oz pur e alcohol) social Sex and Gender Information Value Date Recorded Sex Assigned at Male 08/31/2020 7:44 AM PRODUCTION SUPPORT SPECIALIST Gender Identity Male 08/31/2020 7:44 AM PRODUCTION SUPPORT SPECIALIST Sexual Orientation Straight 08/31/2020 7: 44 AM PRODUCTION SUPPORT SPECIALIST documented as of this encounter Last Filed Vital Signs Vital Sign Reading Time Taken Comments Blood Pressure 122/80 03/17/2019 2:23 PM CDT Pulse 84 03/17/2019 2:23 PM CDT Temperature 36.9 ??C (98.4 ??F) 03/17/2019 2:23 PM CD T Respiratory Rate - - Oxygen Saturation 97% 03/17/2019 2:23 PM CDT Inhaled Oxygen Concentration - - Weight 99.3 kg (219 lb) 03/17/2019 2:23 PM CDT Height 180.3 cm (5' 11 ) 03/17/2019 2:23 PM CDT Body Mass Index 30.54 03/17/2019 2:23 PM CDT documented in this encounter Functional [...] * Patient Instructions* Puja Raymundo R - 03/17/2019 2:23 PM CDT Caring for Your High Blood [...] Where can I go for more information? [place] [employer] National Center: http://www.americanheart.org 1. In the top header, click ???Conditions?? . 2. In the top header, click ???high blood pressure.?? 3. For a printable blood pressure tracker, scroll toward the bottom of the page to Related Tools, and click ???HBP Trackers.?? 1-329-QOZ-USA-1 or ( ) National Heart, Lung and Blood [place]: http://www.nhlbi.nih.gov/health/infoctr/index.htm /Where can I go for support and more information? There are many ways to quit smoking. Some may work better for you than others. Your caregiver can help you find the best plan to quit. [employer] Phone: 5-448-XYDQ-NOW ( ) www.[employer] [place] [employer] Phone: Phone: www.lung.org Instant Rewards of Quitting When you smoke, the chemicals in tobacco reach your lungs quickly every time you inhale. Your bloodthen carries the toxins to every organ in your body. There is no safe amount of cigarette smoke. After you quit, your body begins to heal within 20 minutes of your last cigarette, and the nicotine leaves your body within three days. As your body starts to repair itself, you may feel worse instead of better. Withdrawal can be difficult, but this is a sign that your body is healing. -Taken from www.[employer].gov Long?term Rewards of Quitting Tobacco use in the [place] causes about 443,000 deaths each year, or nearly one in every fivedeaths. Quitting can help you add years to your life. Smokers on average 13 years earlier than non-smokers. Take control of your health by quitting (and staying quit). Over time, you will greatlylower your risk of from lung cancer and other diseases, such as: Heart disease Stroke Chronic bronchitis Emphysema At least 13 other kinds of cancer -Taken from www.[employer].gov Tips if you slip ??? Don't be discouraged if you slip up and smoke one or two cigarettes. One cigarette is better than an entire pack. But don't use it as excuse to start smoking again because it's a slippery slope. ??? Don't be too hard on yourself. One slip up doesn't make you a failure. It doesn't mean you can't quit for good. ??? Don't be too easy on yourself either. If you slip up??? don't say??? Well??? I've blown it. I might as well smoke the rest of this pack . It's important to get back on the non-smoking track right away. Remember??? your goal is no cigarettes--not even one puff. ??? Feel good about all the time you went without smoking. Try to learn how to make your coping skills better. ??? Identify the trigger. Exactly what was it that made you smoke? Be aware of that trigger. Decidenow how you will cope with it when it comes up again. ??? Learn from your experience. What has helped you the most to keep from smoking? Make sure to do that on your next try. ??? Are you using a medicine to help you quit? Don't stop using your medicine after only one or twocigarettes. Stay with it. It will help you get back on track. ??? See your provider or another health professional. He or she can help motivate you to quit smoking. -Taken from www.smokefree.gov documented in this encounter Progress Notes * Alf Khan, - 03/17/2019 2:29 PM CDT Office Visit, Established Patient, [id number] HISTORY: CC Trenton Crockett is a 53 year old male patient, here for: Chief Complaint Patient presents with ??? Follow-up pt here today for 2 weeks follow up ??? Medication Check pharmacy confirmed with pt HPI: Here for f/u on hives and took 1 last round of prednisone. Hives are gone for 10 days and no Sx and feeling great he says. He kind of insisted on 1 more round of prednisone and he claims that ishives left about week and half ago and have been gone completely since then and he is very happy and feeling good. Worse assuming was a Z-Mariano that cause this issue and I told me just does not want torisk taking 1 again because this could recur. There is no way of knowing that is a Z-Mariaon and less we try to challenge him with that and that is what I am explaining there is no point in doing this they related that he just filled his last script of pain pills and inquired if he needed to come inagain for that and I said yes unfortunately has to be seen every 90 days for pain pills and this was a separate problem and I will see him when it is time for his pain medication refill BP good He has no chest pain or shortness of breath. He is to take blood pressure medicine he lost a lot of weight and his blood pressures been good the last few times he has been here so were gets going to continue to monitor it and assume lifestyle changes are working for now BP Readings from Last 3 Encounters: 03/17/19 122/80 02/25/19 130/82 02/18/19 130/88 he had metabolic syndrome and elevated glucose is in his weight loss also has controlled this to this point and his last lipids are fine his last A1c was controlled as well Recent Labs Component Name 04/08/17 1055 04/05/14 1540 04/10/13 1416 CHOL 165 172 182 TRIG 177* 393* 157* HDL 47 34* 45 LDLCALC 83 59 106* Recent Labs Component Name 04/08/17 1055 04/08/14 1413 HGBA1C 5.3 5.9* Patient Active Problem List Diagnosis Date Noted [...] 3 times daily 453.6 g 2 No facility-administered medications prior [...] ??? Cancer - Lung Mother EXAM BP 122/80 Pulse 84 Temp 98.4 ??F (36.9 ??C) Wt 99.3 kg (219 lb) SpO2 97% BMI 30.54 kg/m2 FiO2: General appearance - alert, in no acute distress Neck- no anterior cervical adenopathy, carotids have no bruits Chest - CTA Heart - normal rate, regular rhythm, normal S1, S2, no murmurs, rubs, clicks or gallops Ext-no pretibial or pedal edema, no neurovascular deficits seen in the upper or lower extremities Skin- no visible rashes Depression: PHQ-2:TOTAL POINT SCORE: 0 PHQ-9: ASSESSMENT: ICD-10-CM 1. Hives L50.9 2. HTN (hypertension), benign I10 3. Degeneration of lumbar or lumbosacral intervertebral disc M51.37 PLAN: No orders of the defined types were placed in this encounter. Goals ? ? Blood Pressure < 140/90 ??? Quit smoking / using tobacco Medications Discontinued During This Encounter Medication Reason ??? azithromycin (ZITHROMAX) 250 MG tablet Discontinued previously ??? predniSONE (DELTASONE) 10 MG tablet Discontinued previously ??? sildenafil (VIAGRA) 100 MG tablet Completed [...] No current facility-administered medications for this visit. gave patient a work note saying he could return to work and he was not contagious he said his work required that since he had a rash Return to work date March 18 Continue all other treatment as is SE [...] as of this encounter Visit Diagnoses Diagnosis Hives- Primary Urticaria, unspecified HTN (hypertension), benign Essential hypertension, benign Degeneration of lumbar or lumbosacral intervertebral disc Mixed hyperlipidemia Metabolic syndrome Dysmetabolic Syndrome X documented in this encounter Care Teams Commercial Lines Account Assistant Relationship Specialty Start Date End Date Alf Khan DO PCP - General Family Medicine 09/03/13 02/27/23 documented as of this encounter
--- OUTSIDE RECORDS SUMMARY | 2024-09-06 20:28 | XMS_ITS | Encounter Summary ---
Author Organization [facility] Health Address [address] [place] [address] Care Team Providers Care Cable Installer Repairer Helper Name Role Phone Alf Khan DO Primary Care Provider Stephan rosa Reason for Visit * Reason Onset Date Comments MEDICATION REFILL 01/17/2017 Encounter Details Date Type Department Care Team (Late st Contact Info) Description 01/17/2017 Refill [facility] - Family Medicine [address] [place] [address] Alf Khan, DO MEDICATION REFILL Social History Tobacco Use Types Packs/Day Years Used Date Smoking Tobacco: Former Cigarettes 1.5 25 0 12/07/1985 - 12/07/2010 Smokeless Tobacco: Never Alcohol Use Standard Drinks/Week Comments Yes 0 (1 standard drink = 0.6 oz pur e alcohol) social Sex and Gender Information Value Date Recorded Sex Assigned at Male 08/31/2020 7:44 AM FIRST BEATER Gender Identity Male 08/31/2020 7:44 AM FIRST BEATER Sexual Orientation Straight 08/31/2020 7: 44 AM FIRST BEATER documented as of this encounter Functional Status [...] encounter Miscellaneous Notes * Telephone Encounter - Sumaya Martinez - 01/17/2017 11:20 AM CDT Trenton Crockett Allergies Allergen Reactions ??? Perry Inhibitors Cough Requested Prescriptions Pending Prescriptions Disp Refills ??? valsartan (DIOVAN) 160 MG tablet 30 Tab 0 Sig: Take 1 Tab by mouth once daily ??? omeprazole (PRILOSEC) 20 MG capsule 30 Cap 5 Sig: Take 1 Cap by mouth once daily Last Refill: 12/03/16 Last OV: 07/23/16 Next OV: 01/22/17 at 3:30 with a 3:15 arrival time Patient needs these medications urgently! He has been out of his medication for 1 week and is having horrific headaches. documented in this encounter Plan of Treatment Not on file documented as of this encounter Goals Goal Patient Goal Type Associated Problems Recent Progress Patient-Stated? Author Blood Pressure < 140/90 Blood Pressure 172/93(2022 8:59 AM CDT) No Zachary Moreno documented as of this encounter Visit Diagnoses Not on filedocumented in this encounter Care Teams Cable Installer Repairer Helper Relationship Specialty Start Date End Date Alf Khan DO PCP - General Family Medicine 09/03/13 02/27/23 documented as of this encounter
--- OUTSIDE RECORDS SUMMARY | 2024-09-06 20:28 | XMS_ITS | Encounter Summary ---
Author Organization [facility] Address [address] [place] [id number] Care Team Providers Care Acupressure Therapist Name Role Phone Alf Khan DO Primary Care Provider Stephan rosa Reason for Visit * Reason Comments Follow-up patient here today f or 6 months follow up MEDICATION REFILL patient requesting m edication refill Encounter Details Date Type Department Care Team (Latest Contact Info) Description 01/22/2017 3:30 PM CDT Office Visit [facility] - Family Medicine [address] [place] [address] Alf Khan DO Annual physical exam (Primary Dx); HTN (hypertension), benign; Mixed hyperlipidemia; Hepatic steatosis; Degeneration of lumbar or lumbosacral intervertebral disc; Degeneration of cervical intervertebral disc; Calf swelling Social History Tobacco Use Types Packs/Day Years Used Date Smoking Tobacco: Former Cigarettes 1.5 25 0 12/07/1985 - 12/07/2010 Smokeless Tobacco: Never Alcohol Use Standard Drinks/Week Comments Yes 0 (1 standard drink = 0.6 oz pur e alcohol) social Sex and Gender Information Value Date Recorded Sex Assigned at Male 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 Gender Identity Male 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 Sexual Orientation Straight 08/31/2020 7: 44 AM CIVIL CAD DESIGNER documented as of this encounter Last Filed Vital Signs Vital Sign Reading Time Taken Comments Blood Pressure 138/86 01/22/2017 3:26 PM CDT Pulse 88 01/22/2017 3:26 PM CDT Temperature 36.5 ??C (97.7 ??F) 01/22/2017 3:26 PM CD T Respiratory Rate - - Oxygen Saturation 98% 01/22/2017 3:26 PM CDT Inhaled Oxygen Concentration - - Weight 122 kg (269 lb) 01/22/2017 3:26 PM CDT Height 180.3 cm (5' 11 ) 01/22/2017 3:26 PM CDT Body Mass Index 37.52 01/22/2017 3:26 PM CDT documented in this encounter [...] * Patient Instructions* Puja Raymundo R - 01/22/2017 3:26 PM CDT Caring for Your High Blood [...] Where can I go for more information? [place] [employer] National Center: http://www.americanheart.org 1. In the top header, click ???Conditions?? . 2. In the top header, click ???high blood pressure.?? 3. For a printable blood pressure tracker, scroll toward the bottom of the page to Related Tools, and click ???HBP Trackers.?? 0-841-LPC-USA-1 or ( ) National Heart, Lung and Blood [place]: http://www.nhlbi.nih.gov/health/infoctr/index.htm documented in this encounter Progress Notes * Yana Gupta - 04/09/2017 2:50 PM CDT Pt informed of lab results. * Alf Khan DO - 04/08/2017 2:58 PM CDT Labs all normal Even his BS A1c of 5.3 is normal!! Re Ck A1c in 6 months and if still down we can try yearly * Alf Khan DO - 01/22/2017 3:43 PM CDT Office Visit, Established Patient, [id number] HISTORY: SYDNEE Crockett is a 51 y.o. male patient, here for: Chief Complaint Patient presents with ??? Follow-up patient here today for 6 months follow up ??? MEDICATION REFILL patient requesting medication refill HPI: He missed the 6 month window for his labs and needs annual physical labs Patient here today for his 6-month follow up. He says he was here Saturday and got a few pills to gethim through the week. He takes Valsartan 160 mg. Once/day. He says when he doesn't take it he says he gets really emotional, very irritable, tunnel vision and his mind is all over the place. Last week he run out of the medication so he had to come here to get a few refills. His BP today is good. He has not done any labs since 03/2013. His A1C and glucose levels were elevated as well as his Triglycerides and HDL was low His weight has increased since his last visit here. 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 Also, his best friend just of a PE. Denies CP or SOB. He said he quit smoking about 6 yrs ago. Wt Readings from Last 3 Encounters: 01/22/17 122 kg (269 lb) 07/31/16 117.9 kg (260 lb) 07/23/16 126.1 kg (278 lb) Patient Active Problem List Diagnosis Date Noted ??? Pain medication agreement signed 06/24/2014 ??? Degeneration of lumbar or lumbosacral intervertebral disc 06/24/2014 ??? Degeneration of cervical intervertebral disc 06/24/2014 ??? Metabolic syndrome 06/24/2014 ??? Glucose intolerance (impaired glucose tolerance) 06/24/2014 ??? BPH (benign prostatic hypertrophy) 06/10/2012 ??? Need for influenza vaccination 05/23/2011 ??? Hepatic steatosis 05/18/2011 ??? HTN (hypertension), benign 06/16/2009 ??? Hyperlipidemia 01/08/2009 ??? Arthritis 01/08/2009 Outpatient Medications Prior to Visit Medication Sig Dispense Refill ??? omeprazole (PRILOSEC) 20 MG capsule Take [...] as neededfor Pain Earliest Fill Date: 07/23/16 120 Tab 0 ??? albuterol HFA (PROAIR HFA) 108 (90 BASE) MCG/ACT inhaler Inhale 2 Puffs by mouth every 6 hours as needed Reported on 07/31/2016 ??? valsartan (DIOVAN) 160 MG tablet Take 1 Tab by mouth once daily 10 Tab 0 ??? tobramycin (TOBREX) 0.3 % ophthalmic solution INSTILL 1 DROP INTO BOTH EYES EVERY 4 HOURS (Patient not taking: Reported on 01/22/2017) 5 mL 0 ??? promethazine-DM syrup Take 5 mL by mouth every 6 hours as needed for Cough Reasons: Cold Symptoms (Patient not taking: Reported on 01/22/2017) 180 mL 0 ??? mupirocin calcium (BACTROBAN) 2 % cream Apply to affected area 3 times daily (Patient not taking: Reported on 07/31/2016) 30 g 2 ??? tamsulosin CR 24hr (FLOMAX) 0.4 MG capsule Take 1 Cap by mouth once daily. Take 30 minutes after a meal at the same time each day. (Patient not taking: Reported on 07/31/2016) 30 Cap 11 ??? dicyclomine (BENTYL) 10 MG capsule Take 1 Cap by mouth 4 times daily as needed. (Patient not taking: Reported on 07/31/2016) 100 Cap 5 ??? pravastatin (PRAVACHOL) 40 MG tablet Take [...] No family history on file. EXAM BP 138/86 Pulse 88 Temp 97.7 ??F Wt 122 kg (269 lb) SpO2 98% BMI 37.52 kg/m2 FiO2: General appearance - alert, well [...] ICD-10-CM 1. Annual physical exam Z00.00 CBC W AUTO DIFFERENTIAL COMPREHENSIVE METABOLIC PANEL LIPID PROFILE W TCHOL/HDL HEMOGLOBIN A1C TSH MICROALB/CREAT RATIO URINE RANDOM PANEL URINALYSIS ROUTINE W/REFLEX TO CULTURE VITAMIN D 25-HYDROXY 2. HTN (hypertension), benign I10 3. Mixed hyperlipidemia E78.2 4. Hepatic steatosis K76.0 5. Degeneration of lumbar or lumbosacral intervertebral disc M51.37 6. Degeneration of cervical intervertebral disc M50.30 7. Calf swelling M79.89 PLAN: Orders Placed This Encounter ??? CBC W AUTO DIFFERENTIAL ??? COMPREHENSIVE METABOLIC PANEL ??? LIPID PROFILE W TCHOL/HDL ??? HEMOGLOBIN A1C ??? TSH ??? MICROALB/CREAT RATIO URINE RANDOM PANEL ??? URINALYSIS ROUTINE W/REFLEX TO CULTURE ??? VITAMIN D 25-HYDROXY ??? DISCONTD: valsartan (DIOVAN) 160 MG tablet Sig: Take 1 Tab by mouth once daily Dispense: 90 Tab Refill: 1 ??? valsartan (DIOVAN) 160 MG tablet Sig: Take 1 Tab by mouth once daily Dispense: 30 Tab Refill: 5 Goals ? ? Blood Pressure < 140/90 Medications Discontinued During This Encounter Medication Reason ??? valsartan (DIOVAN) 160 MG tablet Reorder ??? valsartan (DIOVAN) 160 MG tablet Reorder ??? dicyclomine (BENTYL) 10 MG capsule Discontinued today ??? mupirocin calcium (BACTROBAN) 2 % cream Discontinued today ??? promethazine-DM syrup Discontinued today ??? tamsulosin CR 24hr (FLOMAX) 0.4 MG capsule Discontinued today ??? tobramycin (TOBREX) 0.3 % ophthalmic solution Discontinued today Current Outpatient Prescriptions Medication Sig Dispense Refill ??? valsartan (DIOVAN) [...] as neededfor Pain Earliest Fill Date: 07/23/16 120 Tab 0 ??? albuterol HFA (PROAIR HFA) 108 (90 BASE) MCG/ACT inhaler Inhale 2 Puffs by mouth every 6 hours as needed Reported on 07/31/2016 ??? pravastatin (PRAVACHOL) 40 MG tablet Take 1 tablet by mouth at bedtime. (Patient not taking: Reported on 07/31/2016) 30 tablet 5 No current facility-administered medications for this visit. Needs labs and he is going to do the they before he got them SE of meds discussed with patient and [...] Procedure Name Priority Date/Time Associated Diagnosis Comments LIPID PROFILE W TCHOL/HDL Routine 04/08/2017 10:55 AM CDT Annual physical exam MICROALB/CREAT RATIO URINE RANDOM PANEL Routine 04/08/2017 10:55 AM CDT Annual physical exam HEMOGLOBIN A1C Routine 04/08/2017 10:55 AM CDT Annual physical exam CBC W AUTO DIFFERENTIAL Routine 04/08/2017 10:55 AM CDT Annual physical exam COMPREHENSIVE METABOLIC PANEL Routine 04/08/2017 10:55 AM CDT Annual physical exam TSH Routine 04/08/2017 10:55 AM CDT Annual physical exam VITAMIN D 25-HYDROXY Routine 04/08/2017 10:54 AM CDT Annual physical exam URINALYSIS MICROSCOPIC ONLY REFLEXED Routine 04/08/2017 10:52 AM CDT Annual physical exam URINALYSIS REFLEX MICROSCOPIC REFLEX CULTURE Routine 04/08/2017 10:52 AM CDT Annual physical exam documented in this encounter Results * MICROALB/CREAT RATIO URINE RANDOM PANEL (04/08/2017 10:55 AM CDT) Creatinine Urine 150 mg/dL [facility] ACCOUNT BILL Microalbumin Urine 1.6 mg/dL [facility] ACCOUNT BILL Microalbumin/Crea tinine Ratio 11 <30 mg/g [facility] ACCOUNT BILL Urine URINE SPECIMEN OBTAINED BY CLEAN CATCH PROCEDURE / Unknown 04/08/2017 10:55 AM CDT 04/08/2017 Narrative Resulting Agency [facility] [address] ??Dev WEBB [id number] Alf Khan DO LAB - URINE CHEMISTR Y ORDERABLES [facility] ACCOUNT BILL [address] [place] [address] * TSH (04/08/2017 10:55 AM CDT) Pathologist [facility] TSH 1.14 0.358 - 3.740 uIU/mL [facility] ACCOUNT BILL Blood BLOOD SPECIMEN / Unknown 04/08/2017 10:55 AM CDT 04/08/2017 Narrative Resulting Agency Comment [facility] [address] ??Dev [place] [id number] Alf Khan DO LAB - CHEMISTRY ORDE RABLES [facility] ACCOUNT BILL [address] [place] [address] * HEMOGLOBIN A1C (04/08/2017 10:55 AM CDT) Hemoglobin A1c 5.3 4.2 - 6.3 % [facility] ACCOUNT BILL Comment:AVERAGE GLUCOSE MG/D L BLOOD 105 mg/dL Whole Blood BLOOD SPECIMEN WITH EDTA / Unknown 04/08/2017 10:55 AM CDT 04/08/2017 Narrative Resulting Agency Comment [place] [address] ??Dev [place] [id number] Alf Khan DO LAB - CHEMISTRY ORDE INEZ Performing Organization Address [facility] Co de Phone Number [facility] ACCOUNT BILL [address] [place] [address] * (ABNORMAL) LIPID PROFILE W TCHOL/HDL (04/08/2017 10:55 AM CDT) Cholesterol 165 <200 mg/dL [facility] ACCOUNT BILL Triglycerides 177(H) <150 mg/dL [facility] ACCOUNT BILL HDL Cholesterol 47 >40 mg/dL [facility] ACCOUNT BILL VLDL Calculated 35(H) <=30 mg/dL [facility] ACCOUNT BILL LDL Calculated 83 <130 mg/dL [facility] ACCOUNT BILL Comment:LDL/HDL RATIO BLOOD ([facility]) 1.8 <5.0 Cholesterol/HDL Ratio 3.5 <4.5 [facility] ACCOUNT BILL Blood BLOOD SPECIMEN / Unknown 04/08/2017 10:55 AM CDT 04/08/2017 Narrative Resulting Agency Comment [place] [address] ??Dev ID [id number] Alf Khan LAB - CHEMISTRY ELIZAEcho LAMRAMON Performing Organization Address [facility] Co de Phone Number [facility] ACCOUNT BILL [address] [place] [address] * COMPREHENSIVE METABOLIC PANEL (04/08/2017 10:55 AM CDT) Glucose 98 74 - 106 mg/dL [facility] ACCOUNT BILL BUN 11 7 - 21 mg/dL [facility] ACCOUNT BILL Creatinine 0.68 0.50 - 1.30 mg/dL [facility] ACCOUNT BILL eGFR by MDRD >60 >60 mL/min/1.7 3m2 [facility] ACCOUNT BILL eGFR by MDRD >60 >60 mL/min/1.7 3m2 [facility] ACCOUNT BILL Sodium 140 136 - 145 mmol/L [facility] ACCOUNT BILL Potassium 4.1 3.5 - 5.1 mmol/L [facility] ACCOUNT BILL Chloride 105 98 - 107 mmol/L [facility] ACCOUNT BILL CO2 28 22 - 31 mmol/L [facility] ACCOUNT BILL Calcium 8.7 8.5 - 10.1 mg/dL [facility] ACCOUNT BILL Protein Total 6.7 6.4 - 8.2 gm/dL [facility] ACCOUNT BILL Albumin 3.7 3.4 - 5.0 gm/dL [facility] ACCOUNT BILL Bilirubin Total 0.4 0.2 - 1.0 mg/dL [facility] ACCOUNT BILL Alkaline Phosphatase 83 38 - 126 U/L [facility] ACCOUNT BILL AST 17 5 - 40 U/L [facility] ACCOUNT BILL ALT 16 13 - 61 U/L [facility] ACCOUNT BILL Blood BLOOD SPECIMEN / Unknown 04/08/2017 10:55 AM CDT 04/08/2017 Narrative Resulting Agency Comment [facility] [address] ??[facility] [phone] Alf Khan DO LAB - CHEMISTRY LIZABETH WILEY [facility] ACCOUNT BILL [address] [place] [address] * CBC W AUTO DIFFERENTIAL (04/08/2017 10:55 AM CDT) WBC 6.1 4.4 - 10.7 x10E9/L [facility] ACCOUNT BILL RBC 5.22 3.80 - 5.40 x10E12/L [facility] ACCOUNT BILL Hemoglobin 16.8 12.0 - 17.6 gm/dL [facility] ACCOUNT BILL Hematocrit 49.1 35.2 - 51.7 % [facility] ACCOUNT BILL MCV 94.1 80.7 - 98.3 fL [facility] ACCOUNT BILL MCH 32.2 26.7 - 34.0 pg [facility] ACCOUNT BILL MCHC 34.2 30.8 - 35.9 gm/dL [facility] ACCOUNT BILL RDW 12.2 12.1 - 14.9 % [facility] ACCOUNT BILL Platelet Count 178 153 - 416 x10E9/L [facility] ACCOUNT BILL Comment:BENIGNOV FL BLOOD ([facility]) 1 3.1 fl 9.4-12.9 H Granulocytes % 57.3 44.0 - 73.0 % [facility] ACCOUNT BILL Lymphocytes % 29.4 20.0 - 43.0 % [facility] ACCOUNT BILL Monocytes % 9.1 5.0 - 13.0 % [facility] ACCOUNT BILL Eosinophils % 3.1 0.0 - 6.0 % [facility] ACCOUNT BILL Basophils % 0.8 0.0 - 2.0 % [facility] ACCOUNT BILL Granulocytes Absolute 3.47 2.01 - 7.14 x10E9/L [facility] ACCOUNT BILL Lymphocytes Absolute 1.78 1.07 - 3.94 x10E9/L [facility] ACCOUNT BILL Monocytes Absolute 0.55 0.26 - 1.07 x10E9/L [facility] ACCOUNT BILL Eosinophils Absolute 0.19 0 - 0.47 x10E9/L [facility] ACCOUNT BILL Basophils Absolute 0.05 0 - 0.08 x10E9/L [facility] ACCOUNT BILL Immature Granulocytes 0.3 0 - 1 % [facility] ACCOUNT BILL Immature Granulocytes Absolute 0.02 0.00 - 0.06 x10E9/L [facility] ACCOUNT BILL nRBC 0 /100 WBC [facility] ACCOUNT BILL Blood BLOOD SPECIMEN / Unknown 04/08/2017 10:55 AM CDT 04/08/2017 Narrative Resulting Agency Comment [facility] [id number] [place] [address] Dr ??[facility] [phone] Alf Khan DO LAB - HEMATOLOGY ORD [facility] Organization Address City/State/ZIP Co de Phone Number [facility] ACCOUNT BILL [address] [place] [address] * VITAMIN D 25-HYDROXY (04/08/2017 10:54 AM CDT) Vitamin D, 25 Hydroxy 38.29 30 - 100 ng/mL [facility] ACCOUNT BILL Comment: Vitamin D Status: ?Deficiency ? <20 ? ng/mL ?Insufficiency ?? 20-30 ??ng/mL ?Sufficiency ? 30-100 ng/mL ?Toxicity ? >100 ?ng/mL Blood BLOOD SPECIMEN / Unknown 04/08/2017 10:54 AM CDT 04/08/2017 Narrative Resulting Agency Comment [facility] [address] ??[facility] [phone] Alf Khan DO LAB - CHEMISTRY LIZABETH WILEY [facility] ACCOUNT BILL [address] [place] [address] * (ABNORMAL) URINALYSIS MICROSCOPIC ONLY REFLEXED (04/08/2017 [...] CDT 04/08/2017 Narrative Resulting Agency Comment [facility] [address] ??Count includes the [facility] [phone] Alf Khan DO LAB - URINALYSIS ORD ERABLES Performing Organization Address City/[facility]/ZIP Co de Phone Number [facility] ACCOUNT BILL [address] [place] [address] * URINALYSIS ROUTINE W/REFLEX TO CULTURE (04/08/2017 10:52 AM CDT) Specific Kelliher UA 1.021 1.005 - 1.030 [facility] ACCOUNT BILL pH UA 6.5 5.0 - 7.5 [facility] ACCOUNT BILL Color UA Yellow Yellow [facility] ACCOUNT BILL Appearance Clear Clear [facility] ACCOUNT BILL Leukocyte UA Negative Negative [facility] ACCOUNT BILL Protein UA Negative Negative/Tra ce [facility] ACCOUNT BILL Glucose UA Negative Negative [facility] ACCOUNT BILL Ketone UA Negative Negative [facility] ACCOUNT BILL Occult Blood Urine Negative Negative [facility] ACCOUNT BILL Bilirubin UA Negative Negative [facility] ACCOUNT BILL Urobilinogen 0.2 0.2 - 1.0 mg/dL [facility] ACCOUNT BILL Nitrite UA Negative Negative [facility] ACCOUNT BILL Microscopic Examination Urine [facility] ACCOUNT BILL Comment:Microscopic follows if indicated. Microscopic Examination Urine See below: [facility] ACCOUNT BILL Comment:Microscopic was donna cated and was performed. Urinalysis Reflex [facility] ACCOUNT BILL Comment:This specimen will n ot reflex to a Urine Culture. Urine URINE SPECIMEN OBTAINED BY CLEAN CATCH PROCEDURE / Unknown 04/08/2017 10:52 AM CDT 04/08/2017 Narrative Resulting Agency Comment [facility] [address] ??Count includes the [facility] [phone] Alf Khan DO LAB - URINALYSIS ORD ERABLES Performing Organization Address City/[facility]/ZIP Co de Phone Number [facility] ACCOUNT BILL [address] [place] [address] documented in this encounter Visit Diagnoses Diagnosis Annual physical exam- Primary Routine general medical examination at a health care facility HTN (hypertension), benign Essential hypertension, benign Mixed hyperlipidemia Hepatic steatosis Other chronic nonalcoholic liver disease Degeneration of lumbar or lumbosacral intervertebral disc Degeneration of cervical intervertebral disc Calf swelling Swelling of limb documented in this encounter Care Teams Acupressure Therapist Relationship Specialty Start Date End Date Alf Khan DO PCP - General Family Medicine 09/03/13 02/27/23 documented as of this encounter
--- OUTSIDE RECORDS SUMMARY | 2024-09-06 20:28 | XMS_ITS | Encounter Summary ---
Author Organization [facility] Health Address [address] [place] [address] Care Team Providers Care Visual And Stock Associate Name Role Phone Alf Khan DO Primary Care Provider Stephan rosa Pcp, Manuel Pérez Primary Care Provider Lori ailable Encounter Details Date Type Department Care Team (Late st Contact Info) Description 09/05/2017 [facility] Outpatient Visit [facility] [address] [place] [address] [place] [phone] [address] Social History Tobacco Use Types Packs/Day Years Used Date Smoking Tobacco: Former Cigarettes 1.5 25 0 12/07/1985 - 12/07/2010 Smokeless Tobacco: Never Alcohol Use Standard Drinks/Week Comments Yes 0 (1 standard drink = 0.6 oz pur e alcohol) social Sex and Gender Information Value Date Recorded Sex Assigned at Male 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
--- OUTSIDE RECORDS SUMMARY | 2024-09-06 20:28 | XMS_ITS | Encounter Summary ---
Author Organization [facility] Address [address] [place] [address] Care Team Providers Care Caregiver Assisted Living Name Role Phone Alf Khan DO Primary Care Provider Stephan rosa Reason for Visit * Auth/Cert Specialty Diagnoses / Procedures Referred By Jean sosa Referred To Contact Procedures INCISION AND DRAINAGE ABSCESS PERIRECTAL Referral ID Status Reason Start Date Expiration Date Visits Re quested Visits Authorized [id number] 1 1 Encounter Details Date Type Department Care Team (Late st Contact Info) Description 09/05/2017 3:00 PM WINCH DERRICK OPERATOR - 09/05/2017 3:29 PM WINCH DERRICK OPERATOR Surgery [facility] - Perioperative Surgery [address] [place] [address] [place] [id number] [facility] [address] [place] [id number] INCISION AND DRAINAGE ABSCESS PERIRECTAL Surgery Details Date/Time Status Location OR Service Patient Class Case Class Case Type Trauma Case? 09/05/2017 3:00 PM Posted [facility] MAIN OR OR 04 General Surgery Day Care Elective > 5 days Panel 1 Procedure LRB Anes Op Region Wound Class Comments INCISION AND DRAINAGE ABSCES S PERIRECTAL Right MAC Buttocks Dirty or Infected Surgeon Surgeon Role Service Panel Donaldo Sadler MD Primary General 1 documented in this encounter Social History Tobacco Use Types Packs/Day Years Used Date Smoking Tobacco: Former Cigarettes 1.5 25 0 12/07/1985 - 12/07/2010 Smokeless Tobacco: Never Alcohol Use Standard Drinks/Week Comments Yes 0 (1 standard drink = 0.6 oz pur e alcohol) social Sex and Gender Information Value Date Recorded Sex Assigned at Male 08/31/2020 7:44 AM WINCH DERRICK OPERATOR Gender Identity Male 08/31/2020 7:44 AM WINCH DERRICK OPERATOR Sexual Orientation Straight 08/31/2020 7: 44 AM WINCH DERRICK OPERATOR documented as of this encounter Last Filed Vital Signs Vital Sign Reading Time Taken Comments Blood Pressure 124/77 09/05/2017 4:30 PM WINCH DERRICK OPERATOR Pulse 63 09/05/2017 4:30 PM WINCH DERRICK OPERATOR Temperature 36.7 ??C (98 ??F) 09/05/2017 4:30 PM WINCH DERRICK OPERATOR Respiratory Rate 16 09/05/2017 4:30 PM WINCH DERRICK OPERATOR Oxygen Saturation 96% 09/05/2017 4:30 PM WINCH DERRICK OPERATOR Inhaled Oxygen Concentration - - Weight 105.7 kg (233 lb) 09/05/2017 2:35 PM WINCH DERRICK OPERATOR Height 180.3 cm (5' 11 ) 09/05/2017 2:35 PM WINCH DERRICK OPERATOR Body Mass Index 32.5 09/05/2017 2:35 PM WINCH DERRICK OPERATOR documented in this encounter Functional Status Functional [...] needed Reported on 07/31/2016 05/12/2018 albuterol HFA (PROVENTIL;VENTOLIN;OH OAIR) 108 (90 BASE) MCG/ACT inhaler Inhale [...] ??? HERNIA REPAIR, VENTRAL ?? 06/03/2012 ??? [place] Tooth Extraction ? Outpatient Prescriptions Marked as [...] no c-pap ??? Unspecified essential hypertension ? H DERRICK OPERATOR documented in this encounter OR Notes * Operative - Donaldo Sadler MD - 09/05/2017 5:54 PM CST [facility] OPERATIVE REPORT PATIENT: : LENNIE QUINTANILLA MR#: [id number] ADMIT DATE: 09/05/2017 CSN: [id number] DATE OF SURGERY: 09/05/2017 : 1965 PHYSICIAN: Donaldo Sadler MD ROOM: [facility] PREOP DIAGNOSIS: Perirectal abscess. POSTOP DIAGNOSIS: Perirectal [...] COMPLICATIONS: None. Donaldo Sadler MD TBC/MODL #: [id number] H DERRICK OPERATOR documented in this encounter Plan of Treatment Not on file documented as of this encounter Goals Goal Patient Goal Type Associated Problems Recent Progress Patient-Stated? Author Blood Pressure < 140/90 Blood Pressure 172/93(2022 8:59 AM CDT) No Zachary Moreno documented as of this encounter Procedures Procedure Name Priority Date/Time Associated Diagnosis Comments INCISION AND DRAINAGE ABSCESS RECTAL/PERIRECTAL 09/05/2017 3:01 PM WINCH DERRICK OPERATOR documented in this encounter Visit Diagnoses Not on filedocumented in this encounter Administered Medications Inactive Administered Medications - up to 3 most recent administrations Medication Order MAR Action Action Date Dose Rate Site 0.9% nacl irrigation solution PRN, Starting on Althea 09/05/17 at 1529, Until Althea 09/05/17 at 1548, Intra-op $ Given 09/05/2017 3:29 PM WINCH DERRICK OPERATOR 1,000 mL Operative Site acetaminophen (TYLENOL) tablet 1,000 mg 1,000 mg, Oral, PRE-OP ONCE, 1 dose, On Althea 09/05/17 at 1439, Pre-op $ Given 09/05/2017 2:40 PM WINCH DERRICK OPERATOR 1,000 mg ceFAZolin (ANCEF) syringe 2,000 mg 2,000 mg (2 g), Intravenous, PRE-OP MULTIPLE, Starting on Althea 09/05/17 at 1439, Until Althea 09/05/17 at 1855, Administer 30 minutes prior to surgical incision. Repeat dose in 3 hours if surgical incision not closed. Administer over 3-5 minutes., Pre-op $ Given 09/05/2017 3:15 PM WINCH DERRICK OPERATOR 2 g HYDROcodone-acetaminop hen (NORCO) 5-325 MG tablet 1 tablet 1 tablet, Oral, ONCE PRN, Mild Pain, 1 dose, Starting on Althea 09/05/17 at 1645, Until Althea 09/05/17 at 1646, Maximum allowable Acetaminophen amount = 4 Grams (4000 mg) / 24 hours., Post-op $ Given 09/05/2017 4:46 PM WINCH DERRICK OPERATOR 1 tablet lactated ringers infusion at 20 mL/hr, Intravenous, PRE-OP CONTINUOUS, Starting on Althea 09/05/17 at 1430, Until Althea 09/05/17 at 1855, Pre-op $ New Bag/Syringe 09/05/2017 2:31 PM WINCH DERRICK OPERATOR lactated ringers infusion at 20 mL/hr, Intravenous, PRE-OP CONTINUOUS, Starting on Althea 09/05/17 at 1445, Until Althea 09/05/17 at 1855, Pre-op $ New Bag/Syringe 09/05/2017 2:40 PM WINCH DERRICK OPERATOR 20 mL/hr oxyCODONE-acetaminophe n (PERCOCET) 5-325 MG tablet 2 tablet 2 tablet, Oral, EVERY 4 HOURS PRN, Severe Pain, Starting on Althea 09/05/17 at 1645, Until Althea 09/05/17 at 1855, Post-op documented in this encounter Active and Recently Administered Medications Times are shown in WINCH DERRICK OPERATOR. Scheduled Medication Order 09/03/2017 09/04/2017 09/05/2017 acetaminophen [...] Pre-op 1515 ($ Given - Prov ider: LEONAROD Nielsen) Continuous Medication Order 09/03/2017 09/04/2017 09/05/2017 lactated ringers infusion at 20 mL/hr, Intravenous, PRE-OP CONTINUOUS, Starting on Althea 09/05/17 at 1430, Until Althea 09/05/17 at 1855, Pre-op 1431 ($ New Bag/Syri nge - Provider: LEONARDO Nielsen)1537 (Anesthesia Volume Adjustment - Provider: LEONARDO Nielsen) lactated ringers infusion at 20 mL/hr, Intravenous, PRE-OP CONTINUOUS, Starting on Althea 09/05/17 at 1445, Until Althea 09/05/17 at 1855, Pre-op 1440 ($ New Bag/Syri nge - Provider: Maddy Sanders RN)1640 (Stopped - Provider: Lokesh Maguire RN) PRN [...] Post-op documented in this encounter Care Teams Caregiver Assisted Living Relationship Specialty Start Date End Date Alf Khan DO PCP - General Family Medicine 09/03/13 02/27/23 documented as of this encounter
--- OUTSIDE RECORDS SUMMARY | 2024-09-06 20:28 | XMS_ITS | Encounter Summary ---
Author Organization [facility] Address [address] [place] [address] Care Team Providers Care Talent Agent Name Role Phone Alf Khan DO Primary Care Provider Stephan rosa Reason for Visit * Reason Onset Date Comments Question 02/16/2019 Encounter Details Date Type Department Care Team (Late st Contact Info) Description 02/16/2019 Telephone [facility] Medical [facility] - Family [facility] [address] [place] [address] Alf Khan, DO Question Social History Tobacco Use Types Packs/Day Years Used Date Smoking Tobacco: Every Day Cigarettes 1.5 25 Started: 12/07/1985; Last attempted to quit: 12/07/2010 Smokeless Tobacco: Never Alcohol Use Standard Drinks/Week Comments Yes 0 (1 standard drink = 0.6 oz pur e alcohol) social Sex and Gender Information Value Date Recorded Sex Assigned at Male 08/31/2020 7:44 AM COST MANAGER Gender Identity Male 08/31/2020 7:44 AM COST MANAGER Sexual Orientation Straight 08/31/2020 7: 44 AM COST MANAGER documented as of this encounter Functional [...] * Telephone Encounter - Yanely Todd - 02/16/2019 3:12 PM CDT Called pt could not leave VM due to not being set up * Telephone Encounter - Alf Khan DO - 02/16/2019 11:11 AM CDT It is impossible to tell you what the hives are from on a phone message. Treatment for hives is prednisone. All he can do is not take the Z-Mariano and see if he gets well with the prednisone. Antibiotics are not an absolute indication for acute bronchitis and wheezing. We do it more for prophylactic reasons. Hives can also be from previous medications and foods and [id number] and many things * Telephone Encounter - Harleen Carlos - 02/16/2019 10:57 AM CDT Patient's friend called says patient has hives around body that he noticed this morning. However patient just started taking ZITHROMAX) 250 MG tablet and predniSONE (DELTASONE) 10 MG tablet on Udnzgt35/21/19. He is afraid this may be a reaction from the medication. If so what she he do about the severe congestion and cold. documented in this encounter Plan of Treatment Not on file documented as of this encounter Goals Goal Patient Goal Type Associated Problems Recent Progress Patient-Stated? Author Blood Pressure < 140/90 Blood Pressure 172/93(2022 8:59 AM CDT) No Zachary Moreno Quit smoking / using tobacco Lifestyle No Puja Raymundo documented as of this encounter Visit Diagnoses Not on filedocumented in this encounter Care Teams Talent Agent Relationship Specialty Start Date End Date Alf Khan DO PCP - General Family Medicine 09/03/13 02/27/23 documented as of this encounter
--- OUTSIDE RECORDS SUMMARY | 2024-09-06 20:28 | XMS_ITS | Encounter Summary ---
Author Organization [facility] Address [address] [place] [address] Care Team Providers Care Park Activities Coordinator Name Role Phone Alf Khan DO Primary Care Provider Stephan rosa Reason for Visit * Reason Comments Follow-up pt here for 1 month f/u Encounter Details Date Type Department Care Team (Latest Contact Info) Description 04/14/2019 10:45 AM CDT Office Visit [facility] - Family Medicine [address] [place] [address] Alf Khan DO Degeneration of lumbar or lumbosacral intervertebral disc (Primary Dx); Metabolic syndrome; HTN (hypertension), benign; Mixed hyperlipidemia; Degeneration of cervical intervertebral disc; Hive Social History Tobacco Use Types Packs/Day Years Used Date Smoking Tobacco: Every Day Cigarettes 1.5 25 Started: 12/07/1985; Last attempted to quit: 12/07/2010 Smokeless Tobacco: Never Alcohol Use Standard Drinks/Week Comments Yes 0 (1 standard drink = 0.6 oz pur e alcohol) social Sex and Gender Information Value Date Recorded Sex Assigned at Male 08/31/2020 7:44 AM OCCUPATIONAL HEALTH RN Gender Identity Male 08/31/2020 7:44 AM OCCUPATIONAL HEALTH RN Sexual Orientation Straight 08/31/2020 7: 44 AM OCCUPATIONAL HEALTH RN documented as of this encounter Last Filed Vital Signs Vital Sign Reading Time Taken Comments Blood Pressure 118/78 04/14/2019 10:59 AM CDT Pulse 74 04/14/2019 10:59 AM CDT Temperature - - Respiratory Rate - - Oxygen Saturation 98% 04/14/2019 10:59 AM CDT Inhaled Oxygen Concentration - - Weight 100.2 kg (221 lb) 04/14/2019 10:59 AM CDT Height 180.3 cm (5' 11 ) 04/14/2019 10:59 AM CDT Body Mass Index 30.82 04/14/2019 10:59 AM CDT documented in this encounter Functional [...] Progress Notes * Alf Khan, DO - 04/14/2019 11:34 AM CDT Office Visit, Established Patient, [id number] HISTORY: SYDNEE Crockett is a 53 year old male patient, here for: Chief Complaint Patient presents with ??? Follow-up pt here for 1 month f/u HPI: Back pain 7/10 right now off Rx and ran out. With meds pain goes to <2/10. Activity increases pain and can keep pain low and he is more active and works better with pain controlled. No SE to hydrocodone. Pain is sharper and has disc Dx in C spine on MR abd DJD on L spine x ray. Patient seems to think he has lumbar spinal stenosis but only says an x-ray and just showed some arthritis. His MRI shows disc disease and spurring, loss of cervical lordosis, disc herniation osteophytic ridge, and spinal stenosis and C3-C7. INDICATION: Cervical radiculopathy to right arm. TECHNIQUE: [...] severe proximal left neural foraminal stenosis results. Back x ray shows arthritis , he does not feel he needs therapy and/or an MRI at this point BP good And no medicine for his blood pressure treating this with Healthy Living lifestyle change BP Readings from Last 3 Encounters: 04/14/19 118/78 03/17/19 122/80 02/25/19 130/82 Labs are good and lost weight and prefer not to do labs, to check on his metabolic syndrome at thispoint. His labs were normal in 2017 and he just soon wait till the 3 year benji which I told him should be fine Recent Labs Component Name 04/08/17 1055 04/05/14 1540 04/10/13 1416 CHOL 165 172 182 TRIG 177* 393* 157* HDL 47 34* 45 LDLCALC 83 59 106* Keto diet modified and is helping keep weight of Recent Labs Component Name 04/08/17 1055 04/08/14 1413 HGBA1C 5.3 5.9* Hives cleared up with his last bout of prednisone I gave him. He is been high free for months now he says He has no CP or SOB Patient Active Problem [...] ??? Cancer - Lung Mother EXAM BP 118/78 Pulse 74 Ht 1.803 m (5' 11 ) Wt 100.2 kg (221 lb) SpO2 98% BMI 30.82 kg/m?? General appearance - alert, in no [...] pain with ends of range of motion. Has some trouble going from flexion to extension and straight leg raising is negative some muscle spasm palpated today in the lower lumbar paraspinals Skin- no visible rashes, no signs of hives anywhere Depression: PHQ-2: PHQ-9: ASSESSMENT: ICD-10-CM 1. Degeneration of lumbar or lumbosacral intervertebral disc M51.37 2. Metabolic syndrome E88.81 3. HTN (hypertension), benign I10 4. Mixed hyperlipidemia E78.2 5. Degeneration of cervical intervertebral disc M50.30 6. Hive L50.9 PLAN: Orders Placed This Encounter ??? HYDROcodone-acetaminophen [...] Cough 1 Inhaler 2 ??? [START ON 06/08/2019] HYDROcodone-acetaminophen (NORCO) 5-325 MG tablet Take 1 tablet by mouth every 4 hours as needed for Pain Dx M50.30 120 tablet 0 ??? [START ON 05/12/2019] HYDROcodone-acetaminophen (NORCO) 7.5-325 MG tablet Take 1 [...] No current facility-administered medications for this visit. told her to avoid Zithromax and most been the trigger to causes hives says he has had none since wetreated this the 2nd time Refilled his pain medication game is 90 days per usual and he usually can stretches out longer than90 days Will put off labs to next year the patient really is adverse to getting blood drawn currently Metabolic syndrome- he seems to be controlling his glucose and his lipids with his weight loss and he is keeping his weight off he to keto modified diet and seems to be doing the trick so will just check his labs next year as he has been keeping everything stable Continue all other treatment as is SE [...] of lumbar or lumbosacral intervertebral disc- Primary Metabolic syndrome Dysmetabolic Syndrome X HTN (hypertension), benign Essential hypertension, benign Mixed hyperlipidemia Degeneration of cervical intervertebral disc Hive Urticaria, unspecified documented in this encounter Care Teams Park Activities Coordinator Relationship Specialty Start Date End Date Alf Khan DO PCP - General Family Medicine 09/03/13 02/27/23 documented as of this encounter
--- OUTSIDE RECORDS SUMMARY | 2024-09-06 20:28 | XMS_ITS | Encounter Summary ---
Author Organization [facility] Address [address] [place] [address] Care Team Providers Care Traffic Survey Technician Name Role Phone Alf Khan DO Primary Care Provider Stephan rosa Reason for Visit * Reason Onset Date Comments Medication Problem 04/17/2017 Encounter Details Date Type Department Care Team (Late st Contact Info) Description 04/17/2017 Telephone [facility] Medical [facility] - Family [facility] [address] [place], [place] [id number] Alf Khan, DO Medication Problem Social History Tobacco Use Types Packs/Day Years Used Date Smoking Tobacco: Former Cigarettes 1.5 25 0 12/07/1985 - 12/07/2010 Smokeless Tobacco: Never Alcohol Use Standard Drinks/Week Comments Yes 0 (1 standard drink = 0.6 oz pur e alcohol) social Sex and Gender Information Value Date Recorded Sex Assigned at Male 08/31/2020 7:44 AM DIRECTOR MANUFACTURING ENGINEERING Gender Identity Male 08/31/2020 7:44 AM DIRECTOR MANUFACTURING ENGINEERING Sexual Orientation Straight 08/31/2020 7: 44 AM DIRECTOR MANUFACTURING ENGINEERING documented as of this encounter Functional Status [...] * Telephone Encounter - Yanely Todd - 04/17/2017 11:06 AM CDT Called and informed pharmacy take 5 tabs for 100mg dose. Disp. 25 with 11 refills * Telephone Encounter - Flako Moreno - 04/17/2017 10:57 AM CDT Pharmacist Edwina calling to get clarification for medication Revatio. Direction say take 5 tabs 3 times daily recommended dose is only one tab daily. documented in this encounter Plan of Treatment Not on file documented as of this encounter Goals Goal Patient Goal Type Associated Problems Recent Progress Patient-Stated? Author Blood Pressure < 140/90 Blood Pressure 172/93(2022 8:59 AM CDT) No Zachary Moreno documented as of this encounter Visit Diagnoses Not on filedocumented in this encounter Care Teams Traffic Survey Technician Relationship Specialty Start Date End Date Alf Khan DO PCP - General Family Medicine 09/03/13 02/27/23 documented as of this encounter
--- OUTSIDE RECORDS SUMMARY | 2024-09-06 20:28 | XMS_ITS | Encounter Summary ---
Author Organization [facility] Address [address] [place] [address] Care Team Providers Care Pin Attacher Name Role Phone Alf Khan DO Primary Care Provider Stephan rosa Reason for Visit * Reason Onset Date Comments Update 04/09/2017 Medication Issue 04/09/2017 Encounter Details Date Type Department Care Team (Late st Contact Info) Description 04/09/2017 Telephone [facility] Medical [facility] - Family [facility] [address] [place] [address] Alf Khan DO Update; Medication Issue Social History Tobacco Use Types Packs/Day Years Used Date Smoking Tobacco: Former Cigarettes 1.5 25 0 12/07/1985 - 12/07/2010 Smokeless Tobacco: Never Alcohol Use Standard Drinks/Week Comments Yes 0 (1 standard drink = 0.6 oz pur e alcohol) social Sex and Gender Information Value Date Recorded Sex Assigned at Male 08/31/2020 7:44 AM ELEMENTARY ART TEACHER Gender Identity Male 08/31/2020 7:44 AM ELEMENTARY ART TEACHER Sexual Orientation Straight 08/31/2020 7: 44 AM ELEMENTARY ART TEACHER documented as of this encounter Functional [...] Telephone Encounter - Alf Khan DO - 04/09/2017 2:13 PM CDT Sent it is 20 mg and has to take 5 of them to = 100 mg dose * Telephone Encounter - Juan Jose Smith - 04/09/2017 2:00 PM CDT Pt. Request to switch pharmacies. Please send new script to [facility] pharmacy due to cost. verifiedwith patient. * Telephone Encounter - Yanely Todd - 04/09/2017 1:39 PM CDT Pt wants 5 day supply of sildenafil rx pending in epic please sign * Telephone Encounter - Alf Khan DO - 04/09/2017 12:28 PM CDT There is a sildenafil Rx for pulmonary hypertension and it is 25 mg pills and can pay out of pocketfor it has to take 4 of them so need to know how MANY PILLS he wants if I am going to do all of this It is a lot of extra work and it is NOT generic Viagra * Telephone Encounter - Ana Peters - 04/09/2017 12:10 PM CDT Patient calls to let PCP know he's requesting the generic version of sildenafil (VIAGRA) 100 MG tablet because he's choosing NOT to use his insurance. Patient will pay out of pocket for Generic sildenafil (VIAGRA) 100 MG tablet . Patient states he's trying to make this affordable to him. Patient states he needs this medication and at a cheaper generic brand rate would be helpful if possible. documented in this encounter Plan of Treatment Not on file documented as of this encounter Goals Goal Patient Goal Type Associated Problems Recent Progress Patient-Stated? Author Blood Pressure < 140/90 Blood Pressure 172/93(2022 8:59 AM CDT) No Zachary Moreno documented as of this encounter Visit Diagnoses Not on filedocumented in this encounter Care Teams Pin Attacher Relationship Specialty Start Date End Date Alf Khan DO PCP - General Family Medicine 09/03/13 02/27/23 documented as of this encounter
--- OUTSIDE RECORDS SUMMARY | 2024-09-06 20:28 | XMS_ITS | Encounter Summary ---
Author Organization [facility] Address [address] [place] [address] Care Team Providers Care Financial Analysis Consultant Name Role Phone Alf Khan DO Primary Care Provider Stephan rosa Reason for Visit * Reason Comments Refill Request Encounter Details Date Type Department Care Team (Late st Contact Info) Description 08/07/2016 Refill [facility] Medical [facility] - Family Medicine [address] [place] [address] Alf Khan, DO Refill Request Social History Tobacco Use Types Packs/Day Years Used Date Smoking Tobacco: Former Cigarettes 1.5 25 0 12/07/1985 - 12/07/2010 Smokeless Tobacco: Never Alcohol Use Standard Drinks/Week Comments Yes 0 (1 standard drink = 0.6 oz pur e alcohol) social Sex and Gender Information Value Date Recorded Sex Assigned at Male 08/31/2020 7:44 AM CAR INSTALLATIONS SUPERVISOR Gender Identity Male 08/31/2020 7:44 AM CAR INSTALLATIONS SUPERVISOR Sexual Orientation Straight 08/31/2020 7: 44 AM CAR INSTALLATIONS SUPERVISOR documented as of this encounter Functional [...] * Telephone Encounter - Lili Hollis - 08/07/2016 12:54 PM CST Requested Prescriptions Pending Prescriptions Disp Refills ??? valsartan (DIOVAN) 160 MG tablet [Pharmacy Med Name: VALSARTAN 160MG TABLETS] 30 Tab Sig: TAKE 1 TABLET BY MOUTH EVERY DAY ??? tobramycin (TOBREX) 0.3 % ophthalmic solution [Pharmacy Med Name: TOBRAMYCIN 0.3% OPH [place] 5ML] 5 mL Sig: INSTILL 1 DROP INTO BOTH EYES EVERY 4 HOURS Last refill Valsartan 10/19/2015 w/6 refills Last ov 07/23/2016 INSTALLATIONS SUPERVISOR documented in this encounter Plan of Treatment Not on file documented as of this encounter Goals Goal Patient Goal Type Associated Problems Recent Progress Patient-Stated? Author Blood Pressure < 140/90 Blood Pressure 172/93(2022 8:59 AM CDT) No Zachary Moreno documented as of this encounter Visit Diagnoses Not on filedocumented in this encounter Care Teams Financial Analysis Consultant Relationship Specialty Start Date End Date Alf Khan DO PCP - General Family Medicine 09/03/13 02/27/23 documented as of this encounter
--- OUTSIDE RECORDS SUMMARY | 2024-09-06 20:28 | XMS_ITS | Encounter Summary ---
Author Organization [facility] Health Address [address] [place] [address] Care Team Providers Care Cardiac Rn Name Role Phone Zaira Ramires DO Primary Care Provider Stephan rosa Reason for Visit * Reason Comments Refill Request Encounter Details Date Type Department Care Team (Late st Contact Info) Description 12/01/2016 Refill [facility] - Family Medicine [address] [place] [address] Zaira Ramires, DO Refill Request Social History Tobacco Use Types Packs/Day Years Used Date Smoking Tobacco: Former Cigarettes 1.5 25 0 12/07/1985 - 12/07/2010 Smokeless Tobacco: Never Alcohol Use Standard Drinks/Week Comments Yes 0 (1 standard drink = 0.6 oz pur e alcohol) social Sex and Gender Information Value Date Recorded Sex Assigned at Male 08/31/2020 7:44 AM SANITATION WORKER Gender Identity Male 08/31/2020 7:44 AM SANITATION WORKER Sexual Orientation Straight 08/31/2020 7: 44 AM SANITATION WORKER documented as of this encounter Functional [...] Miscellaneous Notes * Telephone Encounter - Puja Brennan - 12/03/2016 7:58 AM CDT Requested Prescriptions Signed Prescriptions Disp Refills ??? valsartan (DIOVAN) 160 MG tablet 30 Tab 0 Sig: TAKE 1 TABLET BY MOUTH EVERY DAY Authorizing Provider: ZAIRA RAMIRES Ordering User: PUJA BRENNAN MARTÍNEZ 07/23/16 patient to return in december for 6 months follow up documented in this encounter Plan of Treatment Not on file documented as of this encounter Goals Goal Patient Goal Type Associated Problems Recent Progress Patient-Stated? Author Blood Pressure < 140/90 Blood Pressure 172/93(2022 8:59 AM CDT) No Zachary Moreno documented as of this encounter Visit Diagnoses Not on filedocumented in this encounter Care Teams Cardiac Rn Relationship Specialty Start Date End Date Zaira Ramires DO PCP - General Family Medicine 09/03/13 02/27/23 documented as of this encounter
--- OUTSIDE RECORDS SUMMARY | 2024-09-06 20:28 | XMS_ITS | Encounter Summary ---
Author Organization [facility] Address [address] [place] [address] Care Team Providers Care Account Manager Sales Representative Name Role Phone Alf Khan DO Primary Care Provider Stephan rosa Encounter Details Date Type Department Care Team (Latest Contact Info) Description 02/19/2020 Travel Social History Tobacco Use Types Packs/Day Years Used Date Smoking Tobacco: Every Day Cigarettes 1.5 25 Started: 12/07/1985; Last attempted to quit: 12/07/2010 Smokeless Tobacco: Never Alcohol Use Standard Drinks/Week Comments Yes 0 (1 standard drink = 0.6 oz pur e alcohol) social Sex and Gender Information Value Date Recorded Sex Assigned at Male 08/31/2020 7:44 AM PROFESSIONAL FIGHTER Gender Identity Male 08/31/2020 7:44 AM PROFESSIONAL FIGHTER Sexual Orientation Straight 08/31/2020 7: 44 AM PROFESSIONAL FIGHTER COVID-19 Exposure Response Date Recorded In the last month, have you been in contact with someone who was confirmed or suspected to have Coronavirus / COVID-19? No / Unsure 02/19/2020 2:52 PM CDT documented as of this encounter [...] on filedocumented in this encounter Care Teams Account Manager Sales Representative Relationship Specialty Start Date End Date Alf Khan DO PCP - General Family Medicine 09/03/13 02/27/23 documented as of this encounter
--- OUTSIDE RECORDS SUMMARY | 2024-09-06 20:28 | XMS_ITS | Encounter Summary ---
Author Organization [facility] Address [address] [place] [address] Care Team Providers Care Airport Screener Name Role Phone Alf Khan DO Primary Care Provider Stephan rosa Reason for Visit * Reason Onset Date Comments Question 04/02/2017 Patient Requested Call 04/02/2017 Encounter Details Date Type Department Care Team (Late st Contact Info) Description 04/02/2017 Telephone [facility] - Family Medicine [address] [place] [address] Alf Khan, DO Question; Patient Requested Call Social History Tobacco Use Types Packs/Day Years Used Date Smoking Tobacco: Former Cigarettes 1.5 25 0 12/07/1985 - 12/07/2010 Smokeless Tobacco: Never Alcohol Use Standard Drinks/Week Comments Yes 0 (1 standard drink = 0.6 oz pur e alcohol) social Sex and Gender Information Value Date Recorded Sex Assigned at Male 08/31/2020 7:44 AM COFFEE ROASTER HELPER Gender Identity Male 08/31/2020 7:44 AM COFFEE ROASTER HELPER Sexual Orientation Straight 08/31/2020 7: 44 AM COFFEE ROASTER HELPER documented as of this encounter Functional Status [...] * Telephone Encounter - Yanely Todd - 04/02/2017 11:51 AM CDT Called pt and scheduled appt * Telephone Encounter - Eunice Mitchell - 04/02/2017 11:46 AM CDT Patient is calling regarding if he needs to see Dr. Khan for Possible ED or need a referral. Patient is requesting a call back. documented in this encounter Plan of Treatment Not on file documented as of this encounter Goals Goal Patient Goal Type Associated Problems Recent Progress Patient-Stated? Author Blood Pressure < 140/90 Blood Pressure 172/93(2022 8:59 AM CDT) No Zachary Moreno documented as of this encounter Visit Diagnoses Not on filedocumented in this encounter Care Teams Airport Screener Relationship Specialty Start Date End Date Alf Khan DO PCP - General Family Medicine 09/03/13 02/27/23 documented as of this encounter
--- OUTSIDE RECORDS SUMMARY | 2024-09-06 20:28 | XMS_ITS | Encounter Summary ---
Author Organization [facility] Address [address] [place] [address] Care Team Providers Care Helminthologist Name Role Phone Alf Khan DO Primary Care Provider Stephan rosa Reason for Visit * Reason Comments URI Pt here for chest, n elvira congestion, and runny nose for 1 day. Pt states engery being low. Encounter Details Date Type Department Care Team (Late st Contact Info) Description 04/23/2019 4:30 PM CDT Office Visit [facility] - Family Medicine [address] [place] [address] Alf Khan DO Acute URI (Primary Dx); Allergic sinusitis; Malaise and fatigue Social History Tobacco Use Types Packs/Day Years Used Date Smoking Tobacco: Every Day Cigarettes 1.5 25 Started: 12/07/1985; Last attempted to quit: 12/07/2010 Smokeless Tobacco: Never Alcohol Use Standard Drinks/Week Comments Yes 0 (1 standard drink = 0.6 oz pur e alcohol) social Sex and Gender Information Value Date Recorded Sex Assigned at Male 08/31/2020 7:44 AM HYDRO GENERATION SUPERVISOR Gender Identity Male 08/31/2020 7:44 AM HYDRO GENERATION SUPERVISOR Sexual Orientation Straight 08/31/2020 7: 44 AM HYDRO GENERATION SUPERVISOR documented as of this encounter Last Filed Vital Signs Vital Sign Reading Time Taken Comments Blood Pressure 135/80 04/23/2019 4:28 PM CDT Pulse 78 04/23/2019 4:28 PM CDT Temperature 36.9 ??C (98.4 ??F) 04/23/2019 4:28 PM CD T Respiratory Rate - - Oxygen Saturation 95% 04/23/2019 4:28 PM CDT Inhaled Oxygen Concentration - - Weight 100.4 kg (221 lb 6.4 oz) 04/23/2019 4:28 PM CDT Height 180.3 cm (5' 11 ) 04/23/2019 4:28 PM CDT Body Mass Index 30.88 04/23/2019 4:28 PM CDT documented in this encounter Functional [...] encounter Progress Notes * Alf Khan, - 04/23/2019 4:55 PM CDT Office Visit, Established Patient, [id number] HISTORY: SYDNEE Trenton Crockett is a 53 year old male patient, here for: pain medication refill Chief Complaint Patient presents with ??? URI Pt here for chest, nasal congestion, and runny nose for 1 day. Pt states engery being low. HPI: Has been feeling ill for 2 days and no Fever and no Chills. daughter Sick Contacts and no OTC medications. yes ST, drainage clear Sinus Sx, no Ear pain/problems and no Swollen glands and slight cough. No N,V or D Has CHOPRA + Body Aches Fatigues Patient Active Problem List Diagnosis Date Noted [...] ??? Cancer - Lung Mother EXAM BP 135/80 Pulse 78 Temp 98.4 ??F (36.9 ??C) Ht 1.803 m (5' 11 ) Wt 100.4 kg (221 lb 6.4 oz) SpO2 95% BMI 30.88 kg/m?? General appearance - alert, appears mildly ill ENT - TMs are clear, nose- swollen boggy nasal mucosa with some discharge noted, throat -Clear minor tonsillar swelling or noted no erythema no exudates Neck- no anterior cervical adenopathy, carotids are without bruits Chest -CTA Heart - normal rate, regular rhythm, normal S1, S2, no murmurs, rubs, clicks or gallops Skin-no visible rash Depression: PHQ-2: PHQ-9: ASSESSMENT: ICD-10-CM 1. Acute URI J06.9 2. Allergic sinusitis J30.9 3. Malaise and fatigue R53.81 R53.83 PLAN: Orders Placed This Encounter ??? predniSONE (DELTASONE) 10 MG tablet Si qd x 2 days, pc then 1 less pill every 2 days until gone Dispense: 20 tablet Refill: 0 ??? amoxicillin (AMOXIL) 875 MG tablet Sig: Take 1 tablet by mouth every 12 hours Dispense: 20 tablet Refill: 1 Goals ? ? Blood Pressure < 140/90 [...] 1 tablet by mouth every 12 hours 20 tablet 1 ??? [START ON 06/08/2019] HYDROcodone-acetaminophen (NORCO) 5-325 [...] No current facility-administered medications for this visit. To whom it is difficult to tell him what he has is only 2 days into this ailment. 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 All questions answered. Safe use and storage of controlled meds reviewed with pt again today Return to office in 2 weeks p.r.n. Patient instructed to call with any concerns [...] as of this encounter Visit Diagnoses Diagnosis Acute URI- Primary Acute upper respiratory infections of unspecified site Allergic sinusitis Allergic rhinitis, cause unspecified Malaise and fatigue documented in this encounter Care Teams Helminthologist Relationship Specialty Start Date End Date Alf Khan DO PCP - General Family Medicine 09/03/13 02/27/23 documented as of this encounter
--- OUTSIDE RECORDS SUMMARY | 2024-09-06 20:28 | XMS_ITS | Encounter Summary ---
Author Organization [facility] Address [address] [place] [address] Care Team Providers Care Power Plant Engineer Name Role Phone Alf Khan DO Primary Care Provider Stephan rosa Reason for Visit * Reason Onset Date Comments Late Cancel 05/03/2020 Encounter Details Date Type Department Care Team (Late st Contact Info) Description 05/03/2020 Telephone [facility] - Family Medicine [address] [place] [address] Alf Khan, DO Late Cancel Social History Tobacco Use Types Packs/Day Years Used Date Smoking Tobacco: Every Day Cigarettes 1.5 25 Started: 12/07/1985; Last attempted to quit: 12/07/2010 Smokeless Tobacco: Never Alcohol Use Standard Drinks/Week Comments Yes 0 (1 standard drink = 0.6 oz pur e alcohol) social Sex and Gender Information Value Date Recorded Sex Assigned at Male 08/31/2020 7:44 AM MAKE UP ARRANGER Gender Identity Male 08/31/2020 7:44 AM MAKE UP ARRANGER Sexual Orientation Straight 08/31/2020 7: 44 AM MAKE UP ARRANGER COVID-19 Exposure Response Date Recorded In the [...] encounter Miscellaneous Notes * Telephone Encounter - Lala Griffin - 05/03/2020 8:32 AM CDT Trenton Crockett called and canceled their same day appointment Appointment Date: 05/03/20 Appointment Time: 2:45 If rescheduled: Visit date not found Provider: Bill documented in this encounter Plan of Treatment Not on file documented as of this encounter Goals Goal Patient Goal Type Associated Problems Recent Progress Patient-Stated? Author Blood Pressure < 140/90 Blood Pressure 172/93(2022 8:59 AM CDT) No Zachary Moreno Quit smoking / using tobacco Lifestyle No Puja Raymundo documented as of this encounter Visit Diagnoses Not on filedocumented in this encounter Care Teams Power Plant Engineer Relationship Specialty Start Date End Date Alf Khan DO PCP - General Family Medicine 09/03/13 02/27/23 documented as of this encounter
--- OUTSIDE RECORDS SUMMARY | 2024-09-06 20:28 | XMS_ITS | Encounter Summary ---
Author Organization [facility] Health Address [address] [place] [address] Care Team Providers Care Machine Stoppage Frequency Checker Name Role Phone Alf Khan DO Primary Care Provider Stephan rosa Reason for Visit * Reason Comments Refill Request Encounter Details Date Type Department Care Team (Late st Contact Info) Description 02/18/2019 Refill [facility] - Family Medicine [address] [place] [address] Alf Khan, DO Refill Request Social History Tobacco Use Types Packs/Day Years Used Date Smoking Tobacco: Every Day Cigarettes 1.5 25 Started: 12/07/1985; Last attempted to quit: 12/07/2010 Smokeless Tobacco: Never Alcohol Use Standard Drinks/Week Comments Yes 0 (1 standard drink = 0.6 oz pur e alcohol) social Sex and Gender Information Value Date Recorded Sex Assigned at Male 08/31/2020 7:44 AM HYDROELECTRIC STATION OPERATOR Gender Identity Male 08/31/2020 7:44 AM HYDROELECTRIC STATION OPERATOR Sexual Orientation Straight 08/31/2020 7: 44 AM HYDROELECTRIC STATION OPERATOR documented as of this encounter Functional [...] * Telephone Encounter - Lida Miles - 02/18/2019 3:11 PM CDT Requested Prescriptions Pending Prescriptions Disp Refills ??? sildenafil (REVATIO) 20 MG tablet [Pharmacy Med Name: SILDENAFIL 20 MG TABLET] 30 tablet 8 Sig: TAKE 5 TABLETS BY MOUTH ONCE DAILY NEEDED MARTÍNEZ 02/18/19 NOV none LR 12/19/17 documented in this encounter Plan of Treatment Not on file documented as of this encounter Goals Goal Patient Goal Type Associated Problems Recent Progress Patient-Stated? Author Blood Pressure < 140/90 Blood Pressure 172/93(2022 8:59 AM CDT) No Zachary Moerno Quit smoking / using tobacco Lifestyle No Puja Raymundo documented as of this encounter Visit Diagnoses Not on filedocumented in this encounter Care Teams Machine Stoppage Frequency Checker Relationship Specialty Start Date End Date Alf Khan DO PCP - General Family Medicine 09/03/13 02/27/23 documented as of this encounter
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
--- OUTSIDE RECORDS SUMMARY | 2024-09-06 20:28 | XMS_ITS | Encounter Summary ---
Author Organization [facility] Address [address] [place] [address] Care Team Providers Care Scroll Assembler Name Role Phone Alf Khan DO Primary Care Provider Stephan rosa Reason for Visit * Reason Comments Pain Back patient here today c /o ongoing back pain MEDICATION REFILL patient requesting m edication Urinary frequency patient c/o urinary frequency Encounter Details Date Type Department Care Team (Latest Contact Info) Description 07/23/2016 4:30 PM [employer]IST Office Visit [facility] - Family Medicine [address] [place] [address] Alf Khan DO Urinary frequency (Primary Dx); HTN (hypertension), benign; Mixed hyperlipidemia; Benign prostatic hyperplasia, presence of lower urinary tract symptoms unspecified, unspecified morphology; Degeneration of lumbar or lumbosacral intervertebral disc; Metabolic syndrome; Glucose intolerance (impaired glucose tolerance); Annual physical exam Social History Tobacco Use Types Packs/Day Years Used Date Smoking Tobacco: Former Cigarettes 1.5 25 0 12/07/1985 - 12/07/2010 Smokeless Tobacco: Never Alcohol Use Standard Drinks/Week Comments Yes 0 (1 standard drink = 0.6 oz pur e alcohol) social Sex and Gender Information Value Date Recorded Sex Assigned at Male 08/31/2020 7:44 AM [employer] SPECIALIST Gender Identity Male 08/31/2020 7:44 AM [employer] SPECIALIST Sexual Orientation Straight 08/31/2020 7: 44 AM [employer] RED[employer]OP[employer] SPECIALIST documented as of this encounter Last Filed Vital Signs Vital Sign Reading Time Taken Comments Blood Pressure 140/88 07/23/2016 4:52 PM [employer] SPECIALIST Pulse 76 07/23/2016 4:52 PM [employer] SPECIALIST Temperature 36.4 ??C (97.6 ??F) 07/23/2016 4:52 PM CS T Respiratory Rate - - Oxygen Saturation 98% 07/23/2016 4:52 PM [employer] SPECIALIST Inhaled Oxygen Concentration - - Weight 126.1 kg (278 lb) 07/23/2016 4:52 PM [employer]EV[employer] SPECIALIST Height 180.3 cm (5' 11 ) 07/23/2016 4:52 PM [employer] SPECIALIST Body Mass Index 38.77 07/23/2016 4:52 PM [employer] SPECIALIST documented in this encounter Functional Status Functional [...] * Patient Instructions* Puja Raymundo R - 07/23/2016 4:50 PM [employer] SPECIALIST Caring for Your High Blood Pressure Healthy Lifestyle tips ??? Manage stress: Stress may slow healing and cause illness later. Since it is hard to avoid stress, learn to control it. Learn new ways to relax. Ask your provider for more information on ways to relax. Talk to someone about things that upset you. ??? Stop smoking: If you smoke, you should quit. Smoking harms the heart, lungs, and blood. You aremore likely to have a heart attack, lung disease, and cancer if you smoke. Smoking can also make your hypertension worse. It is never too late to quit. Quitting smoking improves your health, and the health of those around you. If you have trouble quitting, talk to your provider about ways to quit. ??? Drinking alcohol: If you drink alcohol, limit how much you drink. Do not drink more than two drinks a day. One drink is a can of beer (12 ounces) or four ounces (one-half cup) of wine. It is alsothe same as one jigger (one and one- half ounces) of hard liquor, such as whiskey. ??? Maintain a healthy weight. Weighing to much can make your heart work harder and cause high blood pressure. Other health problems are caused about weighing too much. Talk to your provider about anideal weight for you. Where can I go for more information? [place] [employer] National [facility]: http://www.americanheart.org 1. In the top header, click ???Conditions?? . 2. In the top header, click ???high blood pressure.?? 3. For a printable blood pressure tracker, scroll toward the bottom of the page to Related Tools, and click ???HBP Trackers.?? 5-103-NAE-[place]-1 or ( ) National Heart, [facility] and [facility] [place]: http://www.nhlbi.nih.gov/health/infoctr/index.htm [employer]OP[employer] SPECIALIST documented in this encounter Progress Notes * Alf Khan, DO - 07/23/2016 5:16 PM CST Office Visit, Established [place], [id number] HISTORY: SYDNEE Doughertydominique Crockett is a 50 y.o. male patient, here for: Chief Complaint Patient presents with ??? Pain Back patient here today c/o ongoing back pain ??? MEDICATION REFILL patient requesting medication ??? Urinary frequency patient c/o urinary frequency HPI: Has frequency and urgency and has 1 x nocturia and has a coffee and 1-2 16 oz pepsi and 2 beers at night and was not drinking much water. He says he has been getting worse lately and I looked and I Rx him flomax for this similar issues in past and he did not take flomax and his UA is normal othe than a small amount of blood Has metabolic syndrome and lost weight and got down to 229 and has put it all back on and says he has work boot on and weighs about 268 at home Wt Readings from Last 3 Encounters: 07/23/16 126.1 kg (278 lb) 10/13/15 118.8 kg (262 lb) 08/17/15 117.5 kg (259 lb) he did not do any of his labs to ck on glucose intolerance and No results for input(s): HGBA1C in the last [id number] hours. 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 valsartan (DIOVAN) 160 MG tablet TAKE 1 TABLET BY MOUTH EVERY DAY 30 Tab 6 ??? mupirocin calcium (BACTROBAN) 2 % cream Apply to affected area 3 times daily 30 g 2 ??? omeprazole (PRILOSEC) 20 MG capsule TAKE 1 CAPSULE BY MOUTH EVERY DAY 30 Cap 5 ??? tamsulosin CR 24hr (FLOMAX) 0.4 MG capsule Take 1 Cap by mouth once daily. Take 30 minutes after a meal at the same time each day. 30 Cap 11 ??? dicyclomine (BENTYL) 10 MG capsule Take 1 Cap by mouth 4 times daily as needed. 100 Cap 5 ??? pravastatin (PRAVACHOL) 40 MG tablet Take 1 tablet by mouth at bedtime. 30 tablet 5 ??? albuterol HFA (PROAIR HFA) 108 (90 BASE) MCG/ACT inhaler Inhale 2 Puffs by mouth every 6 hours as needed. ??? hydrocodone-acetaminophen (NORCO) 7.5-325 MG tablet Take 1 Tab by mouth every 4 hours as neededfor Pain 120 Tab 0 No facility-administered medications prior to visit. [...] No family history on file. EXAM BP 140/88 (BP SITE: LEFT ARM, BP POSITION: SITTING, BP CUFF SIZE: Large Adult) Pulse 76 Temp 97.6 ??F (Temporal) Wt 126.1 kg (278 lb) SpO2 98% BMI 38.77 kg/m2 FiO2: General appearance - alert, well [...] POINT SCORE: 0 PHQ-9: ASSESSMENT: ICD-10-CM 1. Urinary frequency R35.0 URINALYSIS AUTO - POINT OF CARE 2. HTN (hypertension), benign I10 3. Mixed hyperlipidemia E78.2 4. Benign prostatic hyperplasia, presence of lower urinary tract symptoms unspecified, unspecified morphology N40.0 5. Degeneration of lumbar or lumbosacral intervertebral disc M51.37 6. Metabolic syndrome E88.81 7. Glucose intolerance (impaired glucose tolerance) R73.02 8. Annual physical exam Z00.00 CBC W AUTO DIFFERENTIAL COMPREHENSIVE METABOLIC PANEL LIPID PROFILE W TCHOL/HDL (PO REF LAB) HEMOGLOBIN A1C PROSTATE SPECIFIC ANTIGEN SCREEN MICROALB/CREAT RATIO URINE RANDOM PANEL URINALYSIS ROUTINE W/REFLEX TO CULTURE VITAMIN D 25-HYDROXY PLAN: Orders Placed This Encounter ??? CBC W AUTO DIFFERENTIAL ??? COMPREHENSIVE METABOLIC PANEL ??? LIPID PROFILE W TCHOL/HDL (PO REF LAB) ??? HEMOGLOBIN A1C ??? PROSTATE SPECIFIC ANTIGEN SCREEN ??? MICROALB/CREAT RATIO URINE RANDOM PANEL ??? URINALYSIS ROUTINE W/REFLEX TO CULTURE ??? VITAMIN D 25-HYDROXY ??? URINALYSIS AUTO - POINT OF CARE ??? HYDROcodone-acetaminophen (NORCO) 7.5-325 MG tablet Sig: Take 1 Tab by mouth every 4 hours as needed for Pain Earliest Fill Date: 07/23/16 Dispense: 120 Tab Refill: 0 Goals ? ? Blood Pressure < 140/90 Medications Discontinued During This Encounter Medication Reason ??? hydrocodone-acetaminophen (NORCO) 7.5-325 MG tablet Reorder Current Outpatient Prescriptions Medication Sig Dispense Refill ??? HYDROcodone-acetaminophen (NORCO) 7.5-325 MG tablet Take 1 Tab by mouth every 4 hours as neededfor Pain Earliest Fill Date: 07/23/16 120 Tab 0 ??? valsartan (DIOVAN) 160 MG tablet TAKE 1 TABLET BY MOUTH EVERY DAY 30 Tab 6 ??? mupirocin calcium (BACTROBAN) 2 % cream Apply to affected area 3 times daily 30 g 2 ??? omeprazole (PRILOSEC) 20 MG capsule TAKE 1 CAPSULE BY MOUTH EVERY DAY 30 Cap 5 ??? tamsulosin CR 24hr (FLOMAX) 0.4 MG capsule Take 1 Cap by mouth once daily. Take 30 minutes after a meal at the same time each day. 30 Cap 11 ??? dicyclomine (BENTYL) 10 MG capsule Take 1 Cap by mouth 4 times daily as needed. 100 Cap 5 ??? pravastatin (PRAVACHOL) 40 MG tablet Take 1 tablet by mouth at bedtime. 30 tablet 5 ??? albuterol HFA (PROAIR HFA) 108 (90 BASE) MCG/ACT inhaler Inhale 2 Puffs by mouth every 6 hours as needed. No current facility-administered medications for this visit. Office Visit on 07/23/16 URINALYSIS AUTO - POINT OF CARE Result Value Ref Range Clarity UA clear Color UA yellow Leukocyte UA neg Negative Nitrite UA neg Negative Urobilinogen UA 0.2 0.1 - 1.0 Protein UA neg Negative pH UA 5.0 5.0 - 8.0 pH units Blood UA small Negtive Specific [place] UA 1.025 1.002 - 1.030 Ketone UA neg Negative Bili UA neg Negative Glucose UA neg Negative Will culture in case any infection SE of meds discussed with patient and best way to take medication. All questions answered. Safe use and storage of controlled meds reviewed with pt again today Return to office in 6 months. Patient instructed to call with any concerns or problems. [employer]OP[employer] SPECIALIST documented in this encounter Plan of Treatment Scheduled Orders Name Type Priority Associated Diagnoses Orde r Schedule CBC W AUTO DIFFERENTIAL Lab Routine Annual physical exam Ordered: 07/23/2016 COMPREHENSIVE METABOLIC PANEL Lab Routine Annual physical exam Ordered: 07/23/2016 LIPID PROFILE W TCHOL/HDL (PO REF LAB) Lab Routine Annual physical exam Ordered: 07/23/2016 HEMOGLOBIN A1C Lab Routine Annual physical exam Ordered: 07/23/2016 PROSTATE SPECIFIC ANTIGEN SCREEN Lab Routine Annual physical exam Ordered: 07/23/2016 MICROALB/CREAT RATIO URINE RANDOM PANEL Lab Routine Annual physical exam Ordered: 07/23/2016 URINALYSIS ROUTINE W/REFLEX TO CULTURE Lab Routine Annual physical exam Ordered: 07/23/2016 VITAMIN D 25-HYDROXY Lab Routine Annual physical exam Ordered: 07/23/2016 documented as of this encounter Goals Goal Patient Goal Type Associated Problems Recent Progress Patient-Stated? Author Blood Pressure < 140/90 Blood Pressure 172/93(2022 8:59 AM CDT) No Zachary Moreno documented as of this encounter Procedures Procedure Name Priority Date/Time Associated Diagnosis Comments URINALYSIS AUTO - POINT OF CARE Routine 07/23/2016 5:00 PM [employer]OP[employer] SPECIALIST Urinary frequency documented in this encounter Results * URINALYSIS AUTO - POINT OF CARE (07/23/2016 5:00 PM [employer] REDEVELOPMENT SPECIALIST) Clarity UA POCT clear Color UA POCT yellow Leukocyte UA neg Negative Nitrite UA POCT neg Negative Urobilinogen UA 0.2 0.1 - 1.0 Protein UA POCT neg Negative pH UA 5.0 5.0 - 8.0 pH units Blood UA small Negtive Specific [place] UA POCT 1.025 1.002 - 1.030 Ketone UA neg Negative Bilirubin UA POCT neg Negative Glucose UA neg Negative Urine URINE / Unknown 07/23/2016 5 :00 PM [employer] SPECIALIST Alf Khan DO LAB - POINT OF CARE ORDERABLES documented in this encounter Visit Diagnoses Diagnosis Urinary frequency- Primary HTN (hypertension), benign Essential hypertension, benign Mixed hyperlipidemia Benign prostatic hyperplasia, presence of lower urinary tract symptoms unspecified, unspecified morphology Degeneration of lumbar or lumbosacral intervertebral disc Metabolic syndrome Dysmetabolic Syndrome X Glucose intolerance (impaired glucose tolerance) Impaired glucose tolerance test Annual physical exam Routine general medical examination at a health care facility documented in this encounter Care Teams Scroll Assembler Relationship Specialty Start Date End Date Alf Khan DO PCP - General Family Medicine 09/03/13 02/27/23 documented as of this encounter
--- OUTSIDE RECORDS SUMMARY | 2024-09-06 20:28 | XMS_ITS | Encounter Summary ---
Author Organization [facility] Address [address] [address] Care Team Providers Care Kiln Stoker Name Role Phone Alf Khan DO Primary Care Provider Stephan rosa Reason for Visit * Auth/Cert Specialty Diagnoses / Procedures Referred By Jean sosa Referred To Contact Procedures INCISION AND DRAINAGE ABSCESS PERIRECTAL Referral ID Status Reason Start Date Expiration Date Visits Re quested Visits Authorized [id number] 1 1 Encounter Details Date Type Department Care Team (Late st Contact Info) Description 09/05/2017 3:10 PM ARCHITECTURAL PROJECT CAPTAIN Anesthesia Event [facility] - Perioperative Surgery [address] [place] [address] Donaldo Cannon DO [address] [place] [address] Anesthesia Record Procedure Summary Procedure Name Responsible Anesthesiologist Anesthesia Start Time Anesthesia Stop Time INCISION AND DRAINAGE ABSCESS PERIRECTAL (Right: Buttocks) Donaldo Cannon DO 09/05/17 1510 09/05/17 1550 Events Date Time Event Comment 09/05/2017 1428 1510 An Start 1512 An Start Data 1512 PT Reassessment 1519 An Induction 1521 An Intubation 1527 Time Out Anesthesia part icipated in timeout at the time documented in the record by nursing 1532 An Emergence 1541 Extubation With pt followi ng commands 1545 Electnc Sig 1545 an stop data 1545 ANPTO2 1550 An Stop Meds Name Total midazolam 2 mg/2mL injection 2 mg fentaNYL 100 mcg/2mL injection 100 mcg lidocaine 2% (PF) injection (20 mg/mL) 5 0 mg propofol 200 mg/20mL injection 200 mg succinylcholine 200 mg/10mL injection 14 0 mg ondansetron 4 mg/2mL injection 8 mg ketorolac 30 mg/mL injection 30 mg dexamethasone 4 mg/mL injection 4 mg ceFAZolin (ANCEF) syringe 2,000 mg 2 g lactated ringers infusion 700 mL * Agents Name Insp. N2O Exp. Sevoflurane O2 Insp. Sevoflurane N2O * Blood No blood administrations on file. Lines, Drains, and Airways Type Details Placement Removal Peripheral IV Date: 09/05/17; Time : 1447; Orientation: Left; Placed By: mm; Tolerance: Well 09/05/17 1447 by Maddy Sanders, MARIANA 09/05/17 1638 by Lokesh Maguire RN Procedural Site (Incision) 09/05/17; 1528; Right; Buttocks; 09/05/17; 2355 09/05/17 1528 by Marah Lipscomb RN 09/05/17 2355 by Generic, Auto Release ETT Date: 09/05/17; Time : 1530; Placed By: LEONARDO Nielsen; Vent: mask not attempted; Induction: Rapid Sequence, Cricoid pressure; Laryngoscopy View: Grade 1 (full cords); Intubation Adjuncts: Stylet, Cricoid Pressure; Tube: Endotracheal Tube; Placement: Oral; Tube Type: Cuffed-inflated; Tube Size(FR): 8 FR; Depth of Insertion: 22 CM; Measured From: lips; Attempts: 1; Cuff Vol(mL): 8 mL; Verified By: Direct visualization, Bilateral breath sounds, Chest Auscultation, CO2 Monitor 09/05/17 1530 by Ingris Romano APRN-CRNA 09/05/17 1545 by Ingris Romano APRN-CRNA documented in this encounter Social History Tobacco Use Types Packs/Day Years Used Date Smoking Tobacco: Former Cigarettes 1.5 25 0 12/07/1985 - 12/07/2010 Smokeless Tobacco: Never Alcohol Use Standard Drinks/Week Comments Yes 0 (1 standard drink = 0.6 oz pur e alcohol) social Sex and Gender Information Value Date Recorded Sex Assigned at Male 08/31/2020 7:44 AM ARCHITECTURAL PROJECT CAPTAIN Gender Identity Male 08/31/2020 7:44 AM ARCHITECTURAL PROJECT CAPTAIN Sexual Orientation Straight 08/31/2020 7: 44 AM ARCHITECTURAL PROJECT CAPTAIN documented as of this encounter Functional Status [...] as of this encounter Progress Notes * Ingris Romano APRN-FREEMAN - 09/05/2017 3:50 PM CST ANESTHESIA POSTPROCEDURE EVALUATION Trenton Crockett is a 51 y.o. male Temp: (!) 95.9 ??F Pulse: 80 Resp: 12 BP: 136/96 SpO2: 98 % Pain Rating Score #1: 9 Anesthesia Type: general Mental status: sufficiently recovered from acute administration of anesthesia to participate in theevaluation. Level of consciousness: awake No numbness, tingling or visual disturbances present. General appearance: well-appearing Respiratory function: natural airway. Cardiac: stable Pain: comfortable/acceptable PONV: None Postop hydration: adequate. Patient may be released from anesthesia care. Quality Improvement: Care Assessment: No value filed. Adverse Events: No value filed. Pulmonary: No value filed. Regional: No value filed. Equipment: No value filed. Patient Management: No value filed. Comments: No value filed. ITECTURAL PROJECT CAPTAIN documented in this encounter Procedure Notes * Ingris Romano APRN-FREEMAN - 09/05/2017 3:29 PM CSTAssociated Order(s): ENDOTRACHEAL TUBE NOTE Endotracheal Tube Placement: Patient Location: OR. Procedure: intubation ([id number]). Procedure Section: Sedation: under general anesthesia. Indications for Airway Management: anesthesia Pretreatment: 100% O2. Induction: rapid sequence and cricoid pressure Patient Position: sniffing and supine Mask Ventilation: not attempted. Laryngoscopy View: grade 1 (full cords) Intubation Adjuncts: stylet and cricoid pressure Device: endotracheal tube Placement: oral Tube type: cuff - inflated Tube Size (FR): 8 Depth of Insertion (CM): 22 Measured From: lips Cuff volume (mL): 8 Cuff Inflated With: air Number of Attempts: 1. Placement Verified By: direct visualization, bilateral breath sounds, chest auscultation and CO2 monitor Tube secured with: adhesive tape. Difficult Airway? No. Staff Section Anesthesia Provider: INGRIS ROMANO ITECTURAL PROJECT CAPTAIN documented in this encounter Consult Notes * Ingris Romano APRN-CRNA - 09/05/2017 2:28 PM CST ANESTHESIA PREOPERATIVE EVALUATION NOTE Procedure: INCISION AND DRAINAGE ABSCESS PERIRECTAL Vitals: No data found. ANESTHESIA PRE-EVALUATION NOTE Physical Exam: Orientation: Orientation X3 Airway/Mallampati Score: II Mouth Opening Distance: 3 fingerwidths Neck ROM: full Teeth: dentures/partials lower Heart: regular rate rhythm Lungs: normal Abdomen Exam: normal Review of Systems: History of anesthetic complications: No GERD: No Poor Exercise Tolerance: No Recent Chest Pain: No Shortness of Breath: No AICD/Pacemaker: No Renal Disease: No ANESTHESIA PLAN SECTION ASA Score: 2 NPO Status: No solids since midnight, No liquids within 2 hours and Other - comments (2 cups of coffee with cream and sugar @ 0900) Anesthesia Plan: general Planned Induction: intravenous Planned Postop Destination: PACU Intended Admin of Opioids: Yes Anesthetic plan was discussed with: patient The patient's procedural Anesthetic Plan with discussed with the anesthesiologist. BMI, Height, Weight Tobacco History Estimated body mass index is 32.36 kg/(m^2) as calculated from the following: Height as of an earlier encounter on 09/05/17: 1.803 m (5' 11 ). Weight as of an earlier encounter on 09/05/17: 105.2 kg (232 lb). History Smoking Status ??? Former Smoker ??? Packs/day: 1.50 ??? Years: 25.00 ??? Quit date: 12/07/2010 Smokeless Tobacco ??? Never Used Alcohol History Drug History History Alcohol Use ??? 0.0 oz/week ??? 0 Standard drinks or equivalent per week Comment: social History Drug Use No Outpatient Medications: Inpatient Medications: Allergies: Allergies Allergen Reactions ??? Perry Inhibitors Cough Problem List: Patient Active Problem List Diagnosis Date Noted [...] 06/16/2009 ??? Hyperlipidemia 01/08/2009 ??? Arthritis 01/08/2009 Medical History: Past Medical History: Diagnosis Date ??? GERD (gastroesophageal reflux disease) controlled ??? Motion sickness ??? Pure hypercholesterolemia ??? Snoring no c-pap ??? Unspecified essential hypertension Surgical History: Past Surgical History: Procedure Laterality Date ??? COLONOSCOPY WITH POLYPECTOMY 04/15/2014 Dr Rios ??? HERNIA REPAIR, VENTRAL 06/03/2012 ??? [place] Tooth Extraction Lab Tests: None None None None Anesthesia pre op re evaluation by LEONARDO Nielsen 09/05/2017 2:56 PM ITECTURAL PROJECT CAPTAIN documented in this encounter Miscellaneous Notes * Anesthesia Transfer of Care - Ingris Romano APRN-CRNA - 09/05/2017 3:50 PM CST ANESTHESIA TRANSFER OF CARE NOTE Today's Date: 09/05/2017 Date of : 1965 Patient: Trenton Crockett Procedure(s): INCISION AND DRAINAGE ABSCESS PERIRECTAL Surgeon(s): Primary: Donaldo Sadler MD Preop Diagnosis: * No pre-op diagnosis entered * * No Diagnosis Codes entered * . Allergies Allergen Reactions ??? Perry Inhibitors Cough Vitals: No data found. No data found. Lines, Drains, and Airways Type Details Placement Removal Peripheral IV 09/05/17; 1447; Left; Hand; mm; 20 Gauge; 1; Injectable; Well 09/05/17 1447 by Maddy Sanders RN ETT 09/05/17; 1530 (created via procedure documentation); ISSAC Nielsen CRNA; mask not attempted; Rapid Sequence, Cricoid pressure; (verdugo 4 - small mouth opening); Grade 1 (full cords); Stylet, Cricoid Pressure; Endotracheal Tube; Oral; Cuffed-inflated; 8 FR; 22 CM; lips; 1; 8 mL; Direct visualization, Bilateral breath sounds, Chest Auscultation, CO2 Monitor; 09/05/17; 1545 09/05/17 1530 by Ingris Romano APRN-CRNA 09/05/17 1545 by Ingris Romano APRN-CRNA Blood Products None Blood Products Documented Manually No data found. I&O 09/04 699 - 09/05 0659 09/05 699 - 09/06 0659 I.V. 700 Total Intake 700 Blood Loss 20 Total Output 20 Net +680 Patient Transfer Location: PACU Transport Airway: spontaneous respirations and supplemental O2 Complications: None Handoff Given? Yes Checklist or Protocol - The baumann handoff elements that must be included in the transfer of care checklist include: 1. Identification of patient. 2. Identification of responsible practitioner (PACU nurse or advanced practitioner). 3. Discussion of pertinent medical history. 4. Discussion of the surgical/procedure course (procedure, reason for surgery, procedure performed). 5. Intraoperative anesthetic management and issue/concerns. 6. Expectations/Plans for the early post-procedure period. 7. Opportunity for questions and acknowledgement of understanding of report from the receiving PACUteam. LEONARDO Nielsen ITECTURAL PROJECT CAPTAIN documented in this encounter Plan of Treatment Not on file documented as of this encounter Goals Goal Patient Goal Type Associated Problems Recent Progress Patient-Stated? Author Blood Pressure < 140/90 Blood Pressure 172/93(2022 8:59 AM CDT) No Zachary Moreno documented as of this encounter Procedures Procedure Name Priority Date/Time Associated Diagnosis Comments ENDOTRACHEAL TUBE NOTE Routine 09/05/2017 3:30 PM ARCHITECTURAL PROJECT CAPTAIN Procedure Note - Ingris Romano APRN-CRNA - 09/05/2017 3:29 PM CSTThis note is in progress. Endotracheal Tube Placement: Patient Location: OR. Procedure: intubation (02312). Procedure Section: Sedation: under general anesthesia. Indications for Airway Management: anesthesia Pretreatment: 100% O2. Induction: rapid sequence and cricoid pressure Patient Position: sniffing and supine Mask Ventilation: not attempted. Laryngoscopy View: grade 1 (full cords) Intubation Adjuncts: stylet and cricoid pressure Device: endotracheal tube Placement: oral Tube type: cuff - inflated Tube Size (FR): 8 Depth of Insertion (CM): 22 Measured From: lips Cuff volume (mL): 8 Cuff Inflated With: air Number of Attempts: 1. Placement Verified By: direct visualization, bilateral breath sounds,chest auscultation and CO2 monitor Tube secured with: adhesive tape. Difficult Airway? No. Staff Section Anesthesia Provider: INGRIS ROMANO documented in this encounter Visit Diagnoses Not on filedocumented in this encounter Administered Medications Inactive Administered Medications - up to 3 most recent administrations Medication Order MAR Action Action Date Dose Rate Site ceFAZolin (ANCEF) syringe 2,000 mg 2,000 mg (2 g), Intravenous, PRE-OP MULTIPLE, Starting on Althea 09/05/17 at 1439, Until Althea 09/05/17 at 1855, Administer 30 minutes prior to surgical incision. Repeat dose in 3 hours if surgical incision not closed. Administer over 3-5 minutes., Pre-op $ Given 09/05/2017 3:15 PM ARCHITECTURAL PROJECT CAPTAIN 2 g dexamethasone (DECADRON) injection PRN, Nausea/Vomiting, Starting on Althea 09/05/17 at 1524, Until Althea 09/05/17 at 1550, Anesthesia Intra-op $ Given 09/05/2017 3:24 PM ARCHITECTURAL PROJECT CAPTAIN 4 mg fentaNYL (PF) (SUBLIMAZE) injection PRN, Starting on Althea 09/05/17 at 1519, Until Althea 09/05/17 at 1550, Anesthesia Intra-op $ Given 09/05/2017 3:19 PM ARCHITECTURAL PROJECT CAPTAIN 100 mcg ketorolac (TORADOL) injection PRN, Starting on Althea 09/05/17 at 1535, Until Althea 09/05/17 at 1550, Anesthesia Intra-op $ Given 09/05/2017 3:35 PM ARCHITECTURAL PROJECT CAPTAIN 30 mg lactated ringers infusion at 20 mL/hr, Intravenous, PRE-OP CONTINUOUS, Starting on Althea 09/05/17 at 1430, Until Althea 09/05/17 at 1855, Pre-op $ New Bag/Syringe 09/05/2017 2:31 PM ARCHITECTURAL PROJECT CAPTAIN lidocaine hcl (PF) (XYLOCAINE MPF) 2 % injection PRN, Starting on Althea 09/05/17 at 1519, Until Althea 09/05/17 at 1550, Anesthesia Intra-op $ Given 09/05/2017 3:19 PM ARCHITECTURAL PROJECT CAPTAIN 50 mg midazolam (VERSED) injection PRN, Starting on Althea 09/05/17 at 1510, Until Althea 09/05/17 at 1550, Anesthesia Intra-op $ Given 09/05/2017 3:10 PM ARCHITECTURAL PROJECT CAPTAIN 2 mg Ondansetron HCl (ZOFRAN) injection PRN, Nausea/Vomiting, Starting on Althea 09/05/17 at 1525, Until Althea 09/05/17 at 1550, Anesthesia Intra-op $ Given 09/05/2017 3:25 PM ARCHITECTURAL PROJECT CAPTAIN 8 mg propofol (DIPRIVAN) injection PRN, Starting on Althea 09/05/17 at 1519, Until Althea 09/05/17 at 1550, Anesthesia Intra-op $ Given 09/05/2017 3:19 PM ARCHITECTURAL PROJECT CAPTAIN 200 mg succinylcholine (ANECTINE) injection PRN, Starting on Althea 09/05/17 at 1519, Until Althea 09/05/17 at 1550, Anesthesia Intra-op $ Given 09/05/2017 3:19 PM ARCHITECTURAL PROJECT CAPTAIN 140 mg documented in this encounter Care Teams Kiln Stoker Relationship Specialty Start Date End Date Alf Khan DO PCP - General Family Medicine 09/03/13 02/27/23 documented as of this encounter
--- OUTSIDE RECORDS SUMMARY | 2024-09-06 20:28 | XMS_ITS | Encounter Summary ---
Author Organization [facility] Address [address] [place] [address] Care Team Providers Care Duralumin Metalworker Name Role Phone Alf Khan DO Primary Care Provider Stephan rosa Reason for Visit * Reason Onset Date Comments Erroneous encounter-disregard 04/09/2017 Encounter Details Date Type Department Care Team (Late st Contact Info) Description 04/09/2017 Telephone [facility] - Family Medicine [address] [place] [address] Alf Khan DO Erroneous encounter-disregard Social History Tobacco Use Types Packs/Day Years Used Date Smoking Tobacco: Former Cigarettes 1.5 25 0 12/07/1985 - 12/07/2010 Smokeless Tobacco: Never Alcohol Use Standard Drinks/Week Comments Yes 0 (1 standard drink = 0.6 oz pur e alcohol) social Sex and Gender Information Value Date Recorded Sex Assigned at Male 08/31/2020 7:44 AM FILLER IN Gender Identity Male 08/31/2020 7:44 AM FILLER IN Sexual Orientation Straight 08/31/2020 7: 44 AM FILLER IN documented as of this encounter Functional Status [...] on filedocumented in this encounter Care Teams Duralumin Metalworker Relationship Specialty Start Date End Date Alf Khan DO PCP - General Family Medicine 09/03/13 02/27/23 documented as of this encounter
--- OUTSIDE RECORDS SUMMARY | 2024-09-06 20:28 | XMS_ITS | Encounter Summary ---
Author Organization [facility] Address [address] [place] [address] Care Team Providers Care Database Operator Name Role Phone Alf Khan DO Primary Care Provider Stephan rosa Reason for Visit * Reason Comments Hives pt here today broke out in hives c/o bilatreal feet swollen with pain in his toes onset few days Medication Check Encounter Details Date Type Department Care Team (Late st Contact Info) Description 02/18/2019 2:00 PM CDT Office Visit [facility] - Family Medicine [address] [place] [address] Alf Khan DO [place] (Primary Dx); Allergic reaction, initial encounter; Acute bronchitis, unspecified organism Social History Tobacco Use Types Packs/Day Years Used Date Smoking Tobacco: Every Day Cigarettes 1.5 25 Started: 12/07/1985; Last attempted to quit: 12/07/2010 Smokeless Tobacco: Never Alcohol Use Standard Drinks/Week Comments Yes 0 (1 standard drink = 0.6 oz pur e alcohol) social Sex and Gender Information Value Date Recorded Sex Assigned at Male 08/31/2020 7:44 AM BLEACHING SUPERVISOR Gender Identity Male 08/31/2020 7:44 AM BLEACHING SUPERVISOR Sexual Orientation Straight 08/31/2020 7: 44 AM BLEACHING SUPERVISOR documented as of this encounter Last Filed Vital Signs Vital Sign Reading Time Taken Comments Blood Pressure 130/88 02/18/2019 2:11 PM CDT Pulse 88 02/18/2019 2:11 PM CDT Temperature 37 ??C (98.6 ??F) 02/18/2019 2:11 PM CDT Respiratory Rate - - Oxygen Saturation 97% 02/18/2019 2:11 PM CDT Inhaled Oxygen Concentration - - Weight 98.4 kg (217 lb) 02/18/2019 2:11 PM CDT Height 180.3 cm (5' 11 ) 02/18/2019 2:11 PM CDT Body Mass Index 30.27 02/18/2019 2:11 PM CDT documented in this encounter Functional [...] * Patient Instructions* Puja Raymundo R - 02/18/2019 2:11 PM CDT Caring for Your High Blood [...] Where can I go for more information? [employer] National Center: http://www.americanheart.org 1. In the top header, click ???Conditions?? . 2. In the top header, click ???high blood pressure.?? 3. For a printable blood pressure tracker, scroll toward the bottom of the page to Related Tools, and click ???HBP Trackers.?? 8-772-SJE-USA-1 or ( ) National Heart, Lung and Blood [place]: http://www.nhlbi.nih.gov/health/infoctr/index.htm Where can I go for support and more information? There are many ways to quit smoking. Some may work better for you than others. Your caregiver can help you find the best plan to quit. My [employer] Phone: 4-510-RPSQ-NOW ( ) www.The Editorialist[employer] Phone: Phone: www.lung.org Instant Rewards [...] that your body is healing. -Taken from www.Smokefree.gov Long?term Rewards of Quitting Tobacco use in [...] 13 other kinds of cancer -Taken from www.Smokefree.gov Tips if you slip ??? Don't be [...] encounter Progress Notes * Alf Khan, - 02/18/2019 2:33 PM CDT Office Visit, Established Patient, [id number] HISTORY: SYDNEE Trenton Crockett is a 53 year old male patient, here for: pain medication refill Chief Complaint Patient presents with ??? Hives pt here today broke out in hives c/o bilatreal feet swollen with pain in his toes onset few days ??? Medication Check HPI: Patient says 2 days ago he broke out in hives there mostly on his torso and lower extremities not much in the upper extremities neck her face. He has visible red erythematous raise rashes on legs and torso there is no vesicles seen right now and no typical whelps seen with hives. Had a long discussion about allergic reactions in the most likely culprit is is Zithromax he took for the illness. Hydrocodone is also suspect however it is more likely that it was this Zithromax as he is taking hydrocodone all longer to be odd just become allergic to ordered all the sudden. The only thing he istaking [id number] he claims is Advil and I told him you can get hives from Advil so that is a possibility. Also food soaps cleansers things of that nature can cause hives and went over these indetail and he said his girlfriend was on top of that and nothing was new there. He had no angioneurotic edema no wheezing no swallowing difficulties nothing that made it seem like it was systemicallywas all just hive type rash BP good today even though he has hives BP Readings from Last 3 Encounters: 02/18/19 130/88 02/12/19 128/80 12/24/18 120/74 He has no CP or SOB today Patient Active Problem List Diagnosis Date Noted [...] ??? Cancer - Lung Mother EXAM BP 130/88 Pulse 88 Temp 98.6 ??F (37 ??C) Wt 98.4 kg (217 lb) SpO2 97% BMI 30.27 kg/m2 FiO2: General appearance - alert, O x3, in no acute distress ENT - TMs are clear, nose- swollen boggy nasal mucosa something clear discharge seen, throat -Clearwithout exudates Neck- no anterior cervical adenopathy, carotids have no bruits Chest - CTA Heart - normal rate, regular rhythm, normal S1, S2, no murmurs, rubs, clicks or gallops Ext-no pretibial or pedal edema, no neurovascular deficits seen in the upper or lower extremities Skin-has scattered tiny erythematous rash all less than half a cm on his torso in his legs at her visible he says his skin is very itchy Depression: PHQ-2: PHQ-9: ASSESSMENT: ICD-10-CM 1. Hives L50.9 2. Allergic reaction, initial encounter T78.40XA 3. Acute bronchitis, unspecified organism J20.9 PLAN: Orders Placed This Encounter ??? predniSONE (DELTASONE) 10 MG tablet Si qd x 2 days, pc then 1 less pill every 2 days until gone Dispense: 20 tablet Refill: 0 Goals ? ? Blood [...] No current facility-administered medications for this visit. One markers chart allergic to Zithromax it is most likely culprit right now and I see no point given this to him again thing case he is allergic to it. 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 He is done with prednisone but I am going to restart prednisone taper 40 mg down to 10 mg and he can take Benadryl and/or Zyrtec. Gave him off work for the next 3 days, as he says he can't work when it is itching this bad I told this comes back he needs to keep a list of things that he ingested 8 put on his body anything touches scan so that we can start playing slunk skinner in try and find out what is causing this Continue all other treatment as is SE [...] Visit Diagnoses Diagnosis Hives- Primary Urticaria, unspecified Allergic reaction, initial encounter Acute bronchitis, unspecified organism documented in this encounter Care Teams Database Operator Relationship Specialty Start Date End Date Alf Khan DO PCP - General Family Medicine 09/03/13 02/27/23 documented as of this encounter
--- OUTSIDE RECORDS SUMMARY | 2024-09-06 20:28 | XMS_ITS | Encounter Summary ---
Author Organization [facility] Address [address] [place] [address] Care Team Providers Care Tiler Name Role Phone Alf Khan DO Primary Care Provider Stephan rosa Reason for Visit * Reason Comments Swelling Gland patient here today c /o swelling glands on the right side onset week Encounter Details Date Type Department Care Team (Late st Contact Info) Description 10/13/2015 4:30 PM HANDLE ROUNDER OPERATOR Office Visit [facility] - Family Medicine [address] [place] [address] Alf Khan DO Folliculitis (Primary Dx); Adenopathy; Hx of tobacco use, presenting hazards to health Social History Tobacco Use Types Packs/Day Years Used Date Smoking Tobacco: Former Cigarettes 1.5 25 0 12/07/1985 - 12/07/2010 Smokeless Tobacco: Never Alcohol Use Standard Drinks/Week Comments Yes 0 (1 standard drink = 0.6 oz pur e alcohol) social Sex and Gender Information Value Date Recorded Sex Assigned at Male 08/31/2020 7:44 AM HANDLE ROUNDER OPERATOR Gender Identity Male 08/31/2020 7:44 AM HANDLE ROUNDER OPERATOR Sexual Orientation Straight 08/31/2020 7: 44 AM HANDLE ROUNDER OPERATOR documented as of this encounter Last Filed Vital Signs Vital Sign Reading Time Taken Comments Blood Pressure 145/77 10/13/2015 4:39 PM HANDLE ROUNDER OPERATOR Pulse 84 10/13/2015 4:39 PM HANDLE ROUNDER OPERATOR Temperature 37 ??C (98.6 ??F) 10/13/2015 4:39 PM HANDLE ROUNDER OPERATOR Respiratory Rate - - Oxygen Saturation 95% 10/13/2015 4:39 PM HANDLE ROUNDER OPERATOR Inhaled Oxygen Concentration - - Weight 118.8 kg (262 lb) 10/13/2015 4:39 PM HANDLE ROUNDER OPERATOR Height 180.3 cm (5' 11 ) 10/13/2015 4:39 PM HANDLE ROUNDER OPERATOR Body Mass Index 36.54 10/13/2015 4:39 PM HANDLE ROUNDER OPERATOR documented in this encounter Functional Status [...] * Patient Instructions* Puja Raymundo R - 10/13/2015 4:38 PM HANDLE ROUNDER OPERATOR Caring for Your High Blood Pressure Healthy [...] Where can I go for more information? [place] [employer] National Center: http://www.americanheart.org 1. In the top header, click ???Conditions?? . 2. In the top header, click ???high blood pressure.?? 3. For a printable blood pressure tracker, scroll toward the bottom of the page to Related Tools, and click ???HBP Trackers.?? 4-120-UIG-USA-1 or ( ) National Heart, Lung and Blood [place]: http://www.nhlbi.nih.gov/health/infoctr/index.htm LE ROUNDER OPERATOR documented in this encounter Progress Notes * Alf Khan, - 10/13/2015 4:52 PM CST Office Visit, Established Patient, [id number] HISTORY: SYDNEE Doughertydominique Crockett is a 49 y.o. male patient, here for: Chief Complaint Patient presents with ??? Swelling Gland patient here today c/o swelling glands on the right side onset week HPI: Here for swollen neck glands First noticed it 5 days ago. Sensation of swollen gland in the right anterior neck, now he can feelit from the outside. Some right ear pressure and soreness Denies congestion, sinus pressure, coughing, headache, fever, chills, dental issues. Denies previous occurrence of one sided glad swelling in the absence of cold symptoms. Has not taken anything for it besides his normal medicines. Discussed past smoking Hx with him and he is concerned about CA and is almost phobic about these issues Told him about low dose CT scan lung cancer screening and ordered it in case he wants to do it Patient Active Problem List Diagnosis Date Noted ??? Pain medication agreement signed 06/24/2014 ??? Degeneration of lumbar or lumbosacral intervertebral disc 06/24/2014 ??? Degeneration of cervical intervertebral disc 06/24/2014 ??? Metabolic syndrome 06/24/2014 ??? Glucose intolerance (impaired glucose tolerance) 06/24/2014 ??? BPH (benign prostatic hypertrophy) 06/10/2012 ??? Need for influenza vaccination 05/23/2011 ??? Hepatic steatosis 05/18/2011 ??? HTN (Hypertension), Benign 06/16/2009 ??? Hyperlipidemia 01/08/2009 ??? Arthritis 01/08/2009 Outpatient Prescriptions Prior to Visit Medication Sig Dispense Refill ??? omeprazole (PRILOSEC) 20 MG capsule TAKE 1 CAPSULE BY MOUTH EVERY DAY 30 Cap 5 ??? hydrocodone-acetaminophen (NORCO) 7.5-325 MG tablet Take 1 Tab by mouth every 4 hours as neededfor Pain 120 Tab 0 ??? valsartan (DIOVAN) 160 MG tablet TAKE 1 TABLET BY MOUTH DAILY 30 Tab 5 ??? tamsulosin CR 24hr (FLOMAX) 0.4 [...] mouth every 6 hours as needed. No facility-administered medications prior to visit. PFSH, other pertinent history: Allergies Allergen Reactions ??? Perry Inhibitors Cough Social History Smoking Status: Former Smoker Packs/Day: 1.50 Years: 25 Quit date: 12/07/2010 Smokeless Status: Never Used Alcohol Use: Yes 0.0 oz/week 0 Not specified per week Comment: social Drug Use: No Sexual Activity: Not on file No family history on file. EXAM BP 145/77 mmHg Pulse 84 Temp(Src) 98.6 ??F (Temporal) Wt 118.842 kg (262 lb) BMI 36.56 kg/m2 SpO2 95% FiO2: General appearance - alert, well appearing, and in no distress and oriented to person, place, and time Neck - supple, very small lymph node noted in right submandibular region, carotids upstroke normal bilaterally, no bruits, thyroid exam: thyroid is normal in size without nodules; notes some tenderness in the right side of neck around thyroid Eyes- PERRLA, extraocular movements intact Ears-TM and canals normal Nose- no mucosal congestion or erythema noted Throat- moist mucus membranes, pharynx is normal with no lesions Chest - clear to auscultation, no wheezes, rales or rhonchi, symmetric air entry Heart - normal rate, regular rhythm, normal S1, S2, no murmurs, rubs, clicks or gallops Abdomen - soft, nontender, nondistended, no masses or organomegaly, bowel sounds normal Neurological - alert, oriented, normal speech, no focal findings or movement disorder noted Extremities - peripheral pulses normal, no pedal edema, no clubbing or cyanosis Skin- tiny spot of folliculitis noted on right chin. Depression: PHQ-2:TOTAL POINT SCORE: 0 PHQ-9: ASSESSMENT: ICD-10-CM ICD-9-CM 1. Folliculitis L73.9 704.8 2. Adenopathy R59.1 785.6 3. Hx of tobacco use, presenting hazards to health Z87.[address] LUNG CANCER SCREEN LOW DOSE PLAN: Orders Placed This Encounter ??? CT LUNG CANCER SCREEN LOW DOSE Date of : 1965 Smoking Status: Former Smoker Packs/Day: 1.50 Years: 25 Quit date: 12/07/2010 Smokeless Status: Never Used reports that he quit smoking about 4 years ago. He has never used smokeless tobacco. Asymptomatic? yes Patient was counseled? yes Standing Status: Future Number of Occurrences: Standing Expiration Date: 10/13/2016 Order Specific Question: Exam to be performed? Answer: Per Radiologist protocol ??? mupirocin calcium (BACTROBAN) 2 % cream Sig: Apply to affected area 3 times daily Dispense: 30 g Refill: 2 Goals ? ? Blood Pressure < 140/90 There are no discontinued medications. Current Outpatient Prescriptions Medication Sig Dispense Refill ??? mupirocin calcium (BACTROBAN) 2 % cream Apply to affected area 3 times daily 30 g 2 ??? omeprazole (PRILOSEC) 20 MG capsule TAKE 1 CAPSULE BY MOUTH EVERY DAY 30 Cap 5 ??? hydrocodone-acetaminophen (NORCO) 7.5-325 MG tablet Take 1 Tab by mouth every 4 hours as neededfor Pain 120 Tab 0 ??? valsartan (DIOVAN) 160 MG tablet TAKE 1 TABLET BY MOUTH DAILY 30 Tab 5 ??? tamsulosin CR 24hr (FLOMAX) 0.4 [...] No current facility-administered medications for this visit. Told him has a tiny folliculitis and is prob causing the small swollen gland he found, and use bactroban to infection in morales. Offered low dose CT scan lung cancer screening SE of meds discussed with patient and best way to take medication. All questions answered. Safe use and storage of controlled meds reviewed with pt again today Return to office in 2 weeks prn Patient instructed to call with any concerns or problems. LE ROUNDER OPERATOR documented in this encounter Plan of Treatment Not on file documented as of this encounter Goals Goal Patient Goal Type Associated Problems Recent Progress Patient-Stated? Author Blood Pressure < 140/90 Blood Pressure 172/93(2022 8:59 AM CDT) No Zachary Moreno documented as of this encounter Visit Diagnoses Diagnosis Folliculitis- Primary Other specified disease of hair and hair follicles Adenopathy Enlargement of lymph nodes Hx of tobacco use, presenting hazards to health Personal history of tobacco use, presenting hazards to health documented in this encounter Care Teams Tiler Relationship Specialty Start Date End Date Alf Khan DO PCP - General Family Medicine 09/03/13 02/27/23 documented as of this encounter
--- OUTSIDE RECORDS SUMMARY | 2024-09-06 20:28 | XMS_ITS | Encounter Summary ---
Author Organization [facility] Address [address] [place] [address] Care Team Providers Care Software Applications Engineer Name Role Phone Alf Khan DO Primary Care Provider Stephan rosa Reason for Referral * Evaluate (Emergency) - Closed Specialty Diagnoses / Procedures Referred By Jean sosa Referred To Contact General Surgery Diagnoses Perirectal abscess Rectal pain HTN (hypertension), benign Alf Khan DO [address] [address] [facility] [place] [address] [facility], [address] [place] [id number] Referral ID Status Reason Start Date Expiration Date V isits Requested Visits Authorized [id number] Closed Specialty Services Required 09/04/2017 03/03/2018 1 1 Scheduling Instructions Has a painful rectal abscess N DISPATCHER Reason for Visit * Reason Comments Urgent Care Follow-up [facility] [place] Medication Check pharmacy confirmed w ith pt Encounter Details Date Type Department Care Team (Late st Contact Info) Description 09/04/2017 2:45 PM TRAIN DISPATCHER Office Visit [facility] - Family Medicine [address] [place] [address] Alf Khan DO Perirectal abscess (Primary Dx); Rectal pain; HTN (hypertension), benign; Mixed hyperlipidemia; Glucose intolerance (impaired glucose tolerance) Social History Tobacco Use Types Packs/Day Years Used Date Smoking Tobacco: Former Cigarettes 1.5 25 0 12/07/1985 - 12/07/2010 Smokeless Tobacco: Never Alcohol Use Standard Drinks/Week Comments Yes 0 (1 standard drink = 0.6 oz pur e alcohol) social Sex and Gender Information Value Date Recorded Sex Assigned at Male 08/31/2020 7:44 AM TRAIN DISPATCHER Gender Identity Male 08/31/2020 7:44 AM TRAIN DISPATCHER Sexual Orientation Straight 08/31/2020 7: 44 AM TRAIN DISPATCHER documented as of this encounter Last Filed Vital Signs Vital Sign Reading Time Taken Comments Blood Pressure 130/86 09/04/2017 2:43 PM TRAIN DISPATCHER Pulse 94 09/04/2017 2:43 PM TRAIN DISPATCHER Temperature 36.5 ??C (97.7 ??F) 09/04/2017 2:43 PM CS T Respiratory Rate - - Oxygen Saturation 98% 09/04/2017 2:43 PM TRAIN DISPATCHER Inhaled Oxygen Concentration - - Weight 105.2 kg (232 lb) 09/04/2017 2:43 PM TRAIN DISPATCHER Height 180.3 cm (5' 11 ) 09/04/2017 2:43 PM TRAIN DISPATCHER Body Mass Index 32.36 09/04/2017 2:43 PM TRAIN DISPATCHER documented in this encounter Functional Status Functional [...] * Patient Instructions* Puja Raymundo R - 09/04/2017 2:43 PM TRAIN DISPATCHER Caring for Your High Blood Pressure Medications ??? Keep a written list of what medicines you are taking and when you take them. Bring the list of your medicines or the pill bottles when you see your provider. Learn why you take each medicine. Askyour provider or pharmacist for information about your medicines. ??? Do not take ghxg-ykh-dxlxfak medicine or herbal supplements without talking to [...] Where can I go for more information? [place] [employer] National Center: http://www.americanheart.org 1. In the top header, click ???Conditions?? . 2. In the top header, click ???high blood pressure.?? 3. For a printable blood pressure tracker, scroll toward the bottom of the page to Related Tools, and click ???HBP Trackers.?? 5-612-ZEH-USA-1 or ( ) National Heart, Lung and Blood [place]: http://www.nhlbi.nih.gov/health/infoctr/index.htm N DISPATCHER documented in this encounter Progress Notes * Alf Khan, - 09/04/2017 3:09 PM CST Office Visit, Established Patient, [id number] HISTORY: CC Trenton Crockett is a 51 y.o. male patient, here for: Chief Complaint Patient presents with ??? Urgent Care Follow-up pt follow up to urgent care for abcess on [place] ??? Medication Check pharmacy confirmed with pt HPI: Pt went to [facility] yesterday and was told they wouldn't treat. Started last week as a small lump on right side next to anus and has enlarged. Unaware of any incident which may have caused it. Took Epsom salt baths which did not help. Very painful /10 today. Interested in it being treatedhere or a referral as well better pain management. No bleeding, regular bowel movements, denies constipation and diarrhea. Tries to keep very clean. Has not had a fever. 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 Told him he still needs to do his labs to ck Glucose Int. He has lost weight and is doing better his BP is good no SE to Rx No CP or SOB BP Readings from Last 3 Encounters: 09/04/17 130/86 04/08/17 144/76 01/22/17 138/86 Patient Active Problem List Diagnosis Date Noted [...] Refill ??? sildenafil (REVATIO) 20 MG tablet Take 5 Tabs by mouth 3 times daily 25 Tab 11 ??? sildenafil (VIAGRA) 100 MG tablet [...] for Pain Only prn) 120 Tab 0 No facility-administered medications prior [...] No family history on file. EXAM BP 130/86 Pulse 94 Temp 97.7 ??F Wt 105.2 kg (232 lb) SpO2 98% BMI 32.36 kg/m2 FiO2: General appearance - alert, well appearing, and in no distress and oriented to person, place, and time Chest - clear to auscultation, no wheezes, rales or rhonchi, symmetric air entry Heart - normal rate, regular rhythm, normal S1, S2, no murmurs, rubs, clicks or gallops Abdomen - soft, nontender, nondistended, no masses or organomegaly no rebound tenderness noted bowel sounds normal Rectal- no internal exam. Inspection revealed a 3-4 cm hot red swollen tender mass on right side with pt prone. Is perianal in nature Extremities - peripheral pulses normal, no pedal edema, no clubbing or cyanosis Depression: PHQ-2: PHQ-9: ASSESSMENT: ICD-10-CM 1. Perirectal abscess K61.1 AMB REFERRAL TO GENERAL SURGERY 2. Rectal pain K62.89 AMB REFERRAL TO GENERAL SURGERY 3. HTN (hypertension), benign I10 AMB REFERRAL TO GENERAL SURGERY PLAN: Orders Placed This Encounter ??? AMB REFERRAL TO GENERAL SURGERY Standing Status: Future Standing Expiration Date: 09/04/2018 Referral Priority: Emergency Referral Type: Evaluate Referral Reason: Specialty Services Required Referral Location: [facility] Requested Specialty: General Surgery Number of Visits Requested: 1 ??? doxycycline hyclate (VIBRAMYCIN) 100 MG capsule Sig: Take 1 capsule by mouth 2 times daily Dispense: 14 capsule Refill: 0 ??? metroNIDAZOLE (FLAGYL) 500 MG tablet Sig: Take 1 tablet by mouth 3 times daily Dispense: 21 tablet Refill: 0 ??? HYDROcodone-acetaminophen (NORCO) 7.5-325 MG tablet Sig: Take 1 tablet by mouth every 4 hours as needed for Pain Dispense: 120 tablet Refill: 0 Goals ? ? Blood Pressure < 140/90 Medications Discontinued During This Encounter Medication Reason ??? HYDROcodone-acetaminophen (NORCO) 7.5-325 MG tablet Reorder Current Outpatient Prescriptions Medication Sig Dispense Refill ??? doxycycline hyclate (VIBRAMYCIN) 100 MG capsule Take 1 capsule by mouth 2 times daily 14 capsule 0 ??? metroNIDAZOLE (FLAGYL) 500 MG tablet Take 1 tablet by mouth 3 times daily 21 tablet 0 ??? HYDROcodone-acetaminophen (NORCO) 7.5-325 MG tablet Take 1 tablet by mouth every 4 hours as needed for Pain 120 tablet 0 ??? sildenafil (REVATIO) 20 MG tablet Take 5 Tabs by mouth 3 times daily 25 Tab 11 ??? sildenafil (VIAGRA) 100 MG tablet [...] 5.3 Recent Labs Component Name 04/08/17 1054 [id number] 38.29 Got aerobic and anaerobic AB coverage. Hot sitz baths or hot compresses and emergent ref to general surgery. Told him I should not attemptto open this up in office and do not want to vogel rectum and he could have a rectal fistula SE of meds discussed with patient and best way to take medication. All questions answered. Safe use and storage of controlled meds reviewed with pt again today Return to office in 1 month prn. Patient instructed to call with any concerns or problems. N DISPATCHER documented in this encounter Plan of Treatment Scheduled Referrals Name Type Priority Associated Diagnoses Order Schedule AMB REFERRAL TO GENERAL SURGERY Outpatient Referral Routine Perirectal abscess Rectal pain HTN (hypertension), benign 1 Occurrences starting 09/04/2017 until 09/04/2018 documented as of this encounter Goals Goal Patient Goal Type Associated Problems Recent Progress Patient-Stated? Author Blood Pressure < 140/90 Blood Pressure 172/93(2022 8:59 AM CDT) No Zachary Moreno documented as of this encounter Visit Diagnoses Diagnosis Perirectal abscess- Primary Abscess of anal and rectal regions Rectal pain Anal or rectal pain HTN (hypertension), benign Essential hypertension, benign Mixed hyperlipidemia Glucose intolerance (impaired glucose tolerance) Impaired glucose tolerance test documented in this encounter Care Teams Software Applications Engineer Relationship Specialty Start Date End Date Alf Khan DO PCP - General Family Medicine 09/03/13 02/27/23 documented as of this encounter
--- OUTSIDE RECORDS SUMMARY | 2024-09-06 20:28 | XMS_ITS | Encounter Summary ---
Author Organization [facility] Address [address] [place] [address] Care Team Providers Care Dog Barber Name Role Phone Alf Khan DO Primary Care Provider Stephan rosa Reason for Visit * Reason Onset Date Comments Opened In Error 04/09/2017 Encounter Details Date Type Department Care Team (Late st Contact Info) Description 04/09/2017 Telephone [facility] - Family Medicine [address] [place] [address] Alf Khan DO Opened In Error Social History Tobacco Use Types Packs/Day Years Used Date Smoking Tobacco: Former Cigarettes 1.5 25 0 12/07/1985 - 12/07/2010 Smokeless Tobacco: Never Alcohol Use Standard Drinks/Week Comments Yes 0 (1 standard drink = 0.6 oz pur e alcohol) social Sex and Gender Information Value Date Recorded Sex Assigned at Male 08/31/2020 7:44 AM CIRCLE BEVELER Gender Identity Male 08/31/2020 7:44 AM CIRCLE BEVELER Sexual Orientation Straight 08/31/2020 7: 44 AM CIRCLE BEVELER documented as of this encounter Functional Status [...] on filedocumented in this encounter Care Teams Dog Barber Relationship Specialty Start Date End Date Alf Khan DO PCP - General Family Medicine 09/03/13 02/27/23 documented as of this encounter
--- OUTSIDE RECORDS SUMMARY | 2024-09-06 20:28 | XMS_ITS | Encounter Summary ---
Author Organization [facility] Address [address] [place] [address] Care Team Providers Care Ecommerce Project Manager Name Role Phone Alf Khan DO Primary Care Provider Stephan rosa Reason for Visit * Reason Comments Cough congestion in the th roat and hard to breath, ears are irritated for about 1 week Encounter Details Date Type Department Care Team (Late st Contact Info) Description 07/31/2016 10:20 AM NEEDLE GRINDER Office Visit [facility] AT [address] [place] [id number] Provider, Perri Exp Avery Nasopharyngitis (Primary Dx) Social History Tobacco Use Types Packs/Day Years Used Date Smoking Tobacco: Former Cigarettes 1.5 25 0 12/07/1985 - 12/07/2010 Smokeless Tobacco: Never Alcohol Use Standard Drinks/Week Comments Yes 0 (1 standard drink = 0.6 oz pur e alcohol) social Sex and Gender Information Value Date Recorded Sex Assigned at Male 08/31/2020 7:44 AM NEEDLE GRINDER Gender Identity Male 08/31/2020 7:44 AM NEEDLE GRINDER Sexual Orientation Straight 08/31/2020 7: 44 AM NEEDLE GRINDER documented as of this encounter Last Filed Vital Signs Vital Sign Reading Time Taken Comments Blood Pressure 150/80 07/31/2016 10:51 AM NEEDLE GRINDER Pulse 89 07/31/2016 10:27 AM NEEDLE GRINDER Temperature 36.7 ??C (98.1 ??F) 07/31/2016 10:[address] Respiratory Rate 16 07/31/2016 10:27 AM NEEDLE GRINDER Oxygen Saturation 98% 07/31/2016 10:27 AM NEEDLE GRINDER Inhaled Oxygen Concentration - - Weight 117.9 kg (260 lb) 07/31/2016 10:27 AM NEEDLE GRINDER Height 180.3 cm (5' 11 ) 07/31/2016 10:27 AM NEEDLE GRINDER Body Mass Index 36.26 07/31/2016 10:27 AM NEEDLE GRINDER documented in this encounter Functional Status [...] this encounter Patient Instructions * Patient Instructions* [place] Bethea APRN-LAB TESTER - 07/31/2016 10:57 AM NEEDLE GRINDER Cold Symptoms PIPE CREW FOREMAN: Cold symptoms include sneezing, dry throat, a stuffy nose, headache, watery eyes, and a cough. Yourcough may be dry, or you may cough up mucus. You may also have muscle aches, joint pain, and tiredness. Rarely, you may have a fever. Cold symptoms occur from inflammation in your upper respiratory system caused by a virus. Most colds go away without treatment. Seek care immediately if: ?? You have increased tiredness and weakness. ?? You are unable to eat. ?? Your heart is beating much faster than usual for you. ?? You see white spots in the back of your throat and your neck is swollen and sore to the touch. ?? You see pinpoint or larger reddish-purple dots on your skin. Contact your healthcare provider if: ?? You have a fever higher than 102??F (38.9??C). ?? You have new or worsening shortness of breath. ?? You have thick nasal drainage for more than 2 days. ?? Your symptoms do not improve or get worse within 5 days. ?? You have questions or concerns about your condition or care. Treatment for cold symptoms may include NSAIDS to decrease muscle aches and fever. Cold medicines may also be given to decrease coughing, nasal stuffiness, sneezing, and a runny nose. Manage your cold symptoms: The following may help relieve cold symptoms, such as a dry throat and congestion: ?? Gargle with mouthwash or warm salt water as directed. ?? Suck on throat lozenges or hard candy. ?? Use a cold or warm vaporizer or humidifier to ease your breathing. ?? Rest for at least 2 days and then as needed to decrease tiredness and weakness. ?? Use petroleum based jelly around your nostrils to decrease irritation from blowing your nose. ?? Drink plenty of liquids. Liquids will help thin and loosen thick mucus so you can cough it up. Liquids will also keep you hydrated. Ask your healthcare provider which liquids are best for you and how much to drink each day. Prevent the spread of germs by washing your hands often. You can spread your cold germs to others for at least 3 days after your symptoms start. Do not share items, such as eating utensils. Cover your nose and mouth when you cough or sneeze using the crook of your elbow instead of your hands. Throwused tissues in the garbage. Do not smoke: Smoking may worsen your symptoms and increase the length of time you feel sick. Talk with your healthcare provider if you need help to stop smoking. Follow up with your healthcare provider as directed: Write down your questions so you remember to ask them during your visits. ?? 2016 [employer]. Information is for End User's use only and may not be sold, redistributed or otherwise used for commercial purposes. All illustrations and images included in CareNotes?? are the copyrighted property of [employer] or [employer]. The above information is an mental health aide only. It is not intended as medical advice for individual conditions or treatments. Talk to your doctor, nurse or pharmacist before following any medical regimen to see if it is safe and effective for you. LE GRINDER documented in this encounter Progress Notes * [place] Bethea APRN-CNP - 07/31/2016 10:49 AM CST [facility] Chief Complaint Patient presents with ??? Cough congestion in the throat and hard to breath, ears are irritated for about 1 week SUBJECTIVE: General The history is provided by the patient. This is a new problem. Episode onset: 1 week. Associated symptoms include shortness of breath. The symptoms are aggravated by coughing. Nothing relieves the symptoms. Treatments tried: mucinex. The treatment provided no relief. Past Medical History Diagnosis Date ??? GERD (gastroesophageal reflux disease) controlled ??? Motion sickness ??? Pure hypercholesterolemia ??? Snoring no c-pap ??? Unspecified essential hypertension Current Outpatient Prescriptions on File Prior to Visit Medication Sig Dispense Refill ??? HYDROcodone-acetaminophen (NORCO) 7.5-325 MG tablet Take 1 Tab by mouth every 4 hours as neededfor Pain Earliest Fill Date: 07/23/16 120 Tab 0 ??? valsartan (DIOVAN) 160 MG tablet TAKE 1 TABLET BY MOUTH EVERY DAY 30 Tab 6 ??? omeprazole (PRILOSEC) 20 MG capsule TAKE 1 CAPSULE BY MOUTH EVERY DAY 30 Cap 5 ??? mupirocin calcium (BACTROBAN) 2 % cream [...] taking: Reported on 07/31/2016) 30 tablet 5 ??? albuterol HFA (PROAIR HFA) 108 (90 BASE) MCG/ACT inhaler Inhale 2 Puffs by mouth every 6 hours as needed Reported on 07/31/2016 No current facility-administered medications on file prior to visit. Past Surgical History Procedure Laterality Date ??? [place] tooth extraction ??? Hernia repair, ventral 06/03/2012 ??? Colonoscopy with polypectomy 04/15/2014 Dr Rios History Social History ??? Marital status: Spouse name: N/A ??? Number of children: N/A ??? Years of education: N/A Occupational History ??? Not on file. Social History Main Topics ??? Smoking status: Former Smoker Packs/day: 1.50 Years: 25.00 Quit date: 12/07/2010 ??? Smokeless tobacco: Never Used ??? Alcohol use: 0.0 oz/week 0 Standard drinks or equivalent per week Comment: social ??? Drug use: No ??? Sexual activity: Not on file Other Topics Concern ??? Not on file Social History Narrative No family history on file. Current Outpatient Prescriptions Medication Sig Dispense Refill ??? promethazine-DM syrup Take 5 mL by mouth every 6 hours as needed for Cough Reasons: Cold Symptoms 180 mL 0 ??? albuterol HFA (PROVENTIL;VENTOLIN;PROAIR) 108 (90 [...] MOUTH EVERY DAY 30 Tab 6 ??? omeprazole (PRILOSEC) 20 MG capsule TAKE 1 CAPSULE BY MOUTH EVERY DAY 30 Cap 5 ??? mupirocin calcium (BACTROBAN) 2 % cream [...] taking: Reported on 07/31/2016) 30 tablet 5 ??? albuterol HFA (PROAIR HFA) 108 (90 BASE) MCG/ACT inhaler Inhale 2 Puffs by mouth every 6 hours as needed Reported on 07/31/2016 No current facility-administered medications for this visit. Allergies Allergen Reactions ??? Perry Inhibitors Cough REVIEW OF SYSTEMS: Review of Systems Constitutional: Positive for malaise/fatigue. Negative for fever. HENT: Negative for congestion and sore throat. Ears feel irritated Respiratory: Positive for cough and shortness of breath. Negative for wheezing. Gastrointestinal: Negative. All other systems reviewed and are negative. OBJECTIVE: General appearance: alert, well appearing, and in no distress. BP 150/80 (BP SITE: RIGHT ARM, BP POSITION: SITTING, BP CUFF SIZE: Large Adult) Pulse 89 Temp 98.1 ??F (Oral) Resp 16 Wt 117.9 kg (260 lb) BMI 36.26 kg/m2 Physical Exam Constitutional: He is well-developed, well-nourished, and in no distress. HENT: Head: Normocephalic and atraumatic. Right Ear: Hearing, tympanic membrane, external ear and ear canal normal. Left Ear: Hearing, tympanic membrane, external ear and ear canal normal. Nose: Mucosal edema and rhinorrhea present. No sinus tenderness. Mouth/Throat: Uvula is midline, oropharynx is clear and moist and mucous membranes are normal. Neck: Normal range of motion. Neck supple. Cardiovascular: Normal rate, regular rhythm and normal heart sounds. Pulmonary/Chest: Effort normal and breath sounds normal. Lymphadenopathy: He has no cervical adenopathy. Vitals reviewed. ASSESSMENT: No results found for this visit on 07/31/16. Encounter Diagnosis Name Primary? Nasopharyngitis Yes PLAN: Orders Placed This Encounter ??? promethazine-DM syrup Sig: Take 5 mL by mouth every 6 hours as needed for Cough Reasons: Cold Symptoms Dispense: 180 mL Refill: 0 ??? albuterol HFA (PROVENTIL;VENTOLIN;PROAIR) 108 (90 BASE) MCG/ACT inhaler Sig: Inhale 2 Puffs by mouth every 4 hours as needed for Shortness of Breath, Wheezing or Cough Dispense: 1 Inhaler Refill: 0 May take zyrtec daily LE GRINDER documented in this encounter Plan of Treatment Not on file documented as of this encounter Goals Goal Patient Goal Type Associated Problems Recent Progress Patient-Stated? Author Blood Pressure < 140/90 Blood Pressure 172/93(2022 8:59 AM CDT) Zachary Funez documented as of this encounter Visit Diagnoses Diagnosis Nasopharyngitis- Primary Acute nasopharyngitis (common cold) documented in this encounter Care Teams Ecommerce Project Manager Relationship Specialty Start Date End Date Alf Khan DO PCP - General Family Medicine 09/03/13 02/27/23 documented as of this encounter
--- OUTSIDE RECORDS SUMMARY | 2024-09-06 20:28 | XMS_ITS | Encounter Summary ---
Author Organization [facility] Address [address] [place] [address] Care Team Providers Care Tie Hacker Name Role Phone Alf Khan DO Primary Care Provider Stephan rosa Reason for Visit * Reason Onset Date Comments After Hours Call 04/16/2020 Encounter Details Date Type Department Care Team (Late st Contact Info) Description 04/16/2020 Telephone [facility] - Family Medicine [address] [place] [address] Yonas Taylor DO [address] [place] [address] After Hours Call Social History Tobacco Use Types Packs/Day Years Used Date Smoking Tobacco: Every Day Cigarettes 1.5 25 Started: 12/07/1985; Last attempted to quit: 12/07/2010 Smokeless Tobacco: Never Alcohol Use Standard Drinks/Week Comments Yes 0 (1 standard drink = 0.6 oz pur e alcohol) social Sex and Gender Information Value Date Recorded Sex Assigned at Male 08/31/2020 7:44 AM ONLINE MERCHANDISER Gender Identity Male 08/31/2020 7:44 AM ONLINE MERCHANDISER Sexual Orientation Straight 08/31/2020 7: 44 AM ONLINE MERCHANDISER documented as of this encounter Functional Status [...] Telephone Encounter - Alf Khan DO - 04/17/2020 11:24 AM CDT Find out where Rx needs to go. No suppose to call emergency exchange for controlled substance This is M-F issue only Other Dr can not Rx * Telephone Encounter - Yonas Taylor DO - 04/16/2020 2:52 PM CDT Received phone call from Marilee- Dr Khan sent in Hydrocodone 5 mg to [facility] on [address] [facility] [address]. It was sent in e-scribe. Pharmacy does not have in stock. Cannot transfer to another pharmacy.New script has to be resent. I advised pt's spouse I cannot refill schedule 2 narcotics on weekends. Schedule 2 cannot be called in and don't have access to send via [employer]. He has 2 separate [place] prescriptions both 5 mg and 7.5 mg. I checked PDMP and has 7.5 mg Hydrocodone that was picked up on 03/24 #120. Should have some left unless taking more than advised. documented in this encounter Plan of Treatment Not on file documented as of this encounter Goals Goal Patient Goal Type Associated Problems Recent Progress Patient-Stated? Author Blood Pressure < 140/90 Blood Pressure 172/93(2022 8:59 AM CDT) No Zachary Moreno Quit smoking / using tobacco Lifestyle No Puja Raymundo documented as of this encounter Visit Diagnoses Not on filedocumented in this encounter Care Teams Tie Hacker Relationship Specialty Start Date End Date Alf Khan DO PCP - General Family Medicine 09/03/13 02/27/23 documented as of this encounter
--- OUTSIDE RECORDS SUMMARY | 2024-09-06 20:28 | XMS_ITS | Encounter Summary ---
Author Organization [facility] Address [address] [place] [address] Care Team Providers Care Lens Polisher Hand Name Role Phone Alf Khan DO Primary Care Provider Stephan rosa Reason for Visit * Reason Onset Date Comments MEDICATION REFILL 08/09/2016 Encounter Details Date Type Department Care Team (Late st Contact Info) Description 08/09/2016 Refill [facility] - Family Medicine [address] [place] [address] Alf Khan, DO MEDICATION REFILL Social History Tobacco Use Types Packs/Day Years Used Date Smoking Tobacco: Former Cigarettes 1.5 25 0 12/07/1985 - 12/07/2010 Smokeless Tobacco: Never Alcohol Use Standard Drinks/Week Comments Yes 0 (1 standard drink = 0.6 oz pur e alcohol) social Sex and Gender Information Value Date Recorded Sex Assigned at Male 08/31/2020 7:44 AM WELDER GUN Gender Identity Male 08/31/2020 7:44 AM WELDER GUN Sexual Orientation Straight 08/31/2020 7: 44 AM WELDER GUN COVID-19 Exposure Response Date Recorded In the [...] encounter Miscellaneous Notes * Telephone Encounter - CowanJessica Beltran - 08/09/2016 4:02 PM WELDER GUN Trenton Crockett Allergies Allergen Reactions ??? Perry Inhibitors Cough Requested Prescriptions Pending Prescriptions Disp Refills ??? omeprazole (PRILOSEC) 20 MG capsule 30 Cap 5 Sig: Take 1 Cap by mouth once daily Last Refill: 10/12/15 Last OV: 07/23/16 pcp Next OV: none ER GUN documented in this encounter Plan of Treatment Not on file documented as of this encounter Goals Goal Patient Goal Type Associated Problems Recent Progress Patient-Stated? Author Blood Pressure < 140/90 Blood Pressure 172/93(2022 8:59 AM CDT) No Zachary Moreno Quit smoking / using tobacco Lifestyle No Puja Raymundo documented as of this encounter Visit Diagnoses Not on filedocumented in this encounter Care Teams Lens Polisher Hand Relationship Specialty Start Date End Date Alf Khan DO PCP - General Family Medicine 09/03/13 02/27/23 documented as of this encounter
--- OUTSIDE RECORDS SUMMARY | 2024-09-06 20:28 | XMS_ITS | Encounter Summary ---
Author Organization [facility] Address [address] [place] [address] Care Team Providers Care Payroll Accounting Manager Name Role Phone Alf Khan DO Primary Care Provider Stephan rosa Reason for Visit * Reason Onset Date Comments MEDICATION REFILL 12/11/2017 Encounter Details Date Type Department Care Team (Late st Contact Info) Description 12/11/2017 Refill [facility] Medical [facility] - Family Medicine [address] [place] [address] Yana Gupta MEDICATION REFILL Social History Tobacco Use Types Packs/Day Years Used Date Smoking Tobacco: Former Cigarettes 1.5 25 0 12/07/1985 - 12/07/2010 Smokeless Tobacco: Never Alcohol Use Standard Drinks/Week Comments Yes 0 (1 standard drink = 0.6 oz pur e alcohol) social Sex and Gender Information Value Date Recorded Sex Assigned at Male 08/31/2020 7:44 AM TERMITE RENEWAL INSPECTOR Gender Identity Male 08/31/2020 7:44 AM TERMITE RENEWAL INSPECTOR Sexual Orientation Straight 08/31/2020 7: 44 AM TERMITE RENEWAL INSPECTOR COVID-19 Exposure Response Date Recorded In the [...] Telephone Encounter - Alf Khan DO - 12/11/2017 8:32 PM CDT This Rx had 11 Rf they need to look it up * Telephone Encounter - Yana Gupta - 12/11/2017 10:12 AM CDT Requested Prescriptions Pending Prescriptions Disp Refills ??? sildenafil (REVATIO) 20 MG tablet Last refill 11/09/17 w/11 refills Last ov 11/19/17 documented in [...] on filedocumented in this encounter Care Teams Payroll Accounting Manager Relationship Specialty Start Date End Date Alf Khan DO PCP - General Family Medicine 09/03/13 02/27/23 documented as of this encounter
--- OUTSIDE RECORDS SUMMARY | 2024-09-06 20:28 | XMS_ITS | Encounter Summary ---
Author Organization [facility] Address [address] [place] [address] Care Team Providers Care Living Supervisor Name Role Phone Alf Khan DO Primary Care Provider Stephan rosa Reason for Visit * Reason Comments Pain Back pt follow up to ongo ing back pain and med refill Medication Check pharmacy confirmed w ith pt Encounter Details Date Type Department Care Team (Latest Contact Info) Description 02/23/2020 2:45 PM CDT Office Visit [facility] - Family Medicine [address] [place] [address] Alf Khan DO Smoker (Primary Dx); Degeneration of lumbar or lumbosacral [...] Sex Assigned at Male 08/31/2020 7:44 AM BOAT CREW DECK HAND Gender Identity Male 08/31/2020 7:44 AM BOAT CREW DECK HAND Sexual Orientation Straight 08/31/2020 7: 44 AM BOAT CREW DECK HAND COVID-19 Exposure Response Date Recorded In the last month, have you been in contact with someone who was confirmed or suspected to have Coronavirus / COVID-19? No / Unsure 02/23/2020 8:04 AM CDT documented as of this encounter Last Filed Vital Signs Vital Sign Reading Time Taken Comments Blood Pressure 148/92 02/23/2020 3:19 PM CDT Pulse 80 02/23/2020 2:39 PM CDT Temperature 36.8 ??C (98.2 ??F) 02/23/2020 2:39 PM CD T Respiratory Rate - - Oxygen Saturation 97% 02/23/2020 2:39 PM CDT Inhaled Oxygen Concentration - - Weight 115.2 kg (254 lb) 02/23/2020 2:39 PM CDT Height 180.3 cm (5' 11 ) 02/23/2020 2:39 PM CDT Body Mass Index 35.43 02/23/2020 2:39 PM CDT documented in this encounter Functional [...] Progress Notes * Alf Khan, DO - 02/23/2020 3:15 PM CDT Office Visit, Established Patient, [id number] HISTORY: CC Trenton Crockett is a 54 year old male patient, here for: Chief Complaint Patient presents with ??? Pain Back pt follow up to ongoing back pain and med refill ??? Medication Check pharmacy confirmed with pt HPI: Pain is a 7/10 right now and out of meds and he asked about getting a MRI. Told him he can not get MRI first that he needs physical therapy first. He says that his pain is dull and sharp. It can radiate into his upper thighs. It is activity driven. 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 He says he only takes it at night I toldhim if he got a spot drug test she would forget. I told him he needs to look for other ways of treating his pain in the future. He said hopefully he will get insurance we can look into that. He has no side effects pain medicine. Blood pressure is borderline elevated he is only on lifestyle changes. Every time I tell him that is genetic and he can not do anything to improve this other than lifestyle changes he talks about hisdiet and different things and stress that her bad that he thinks his raises blood pressure BP Readings from Last 3 Encounters: 02/23/20 148/92 09/29/19 144/86 07/09/19 142/78 no CP or SOB Smokes 1 ppd and he is not interested in quitting and Counseled the patient on smoking cessation, Chantix, [id number] nicotine replacement systems patches and gums. Told them the risks of smoking include lung cancer, bladder cancer, COPD, mi and stroke. They have to be involved in the smokingcessation program or it will not succeed. In other words I cannot make someone quit smoking they have to want to quit smoking. I can give you Chantix and advice on the [id number] nicotine systems and I would suggest to [...] ??? Cancer - Lung Mother EXAM BP 148/92 Pulse 80 Temp 98.2 ??F (36.8 ??C) Ht 1.803 m (5' 11 ) Wt 115.2 kg (254 lb) [id number]% BMI 35.43 kg/m?? General appearance - WD, WM, in NAD Neck- Supple and carotids have no bruits [...] POINT SCORE: 0 PHQ-9: ASSESSMENT: ICD-10-CM 1. Smoker F17.200 2. Degeneration of lumbar or lumbosacral intervertebral disc M51.37 3. HTN (hypertension), benign I10 PLAN: Orders Placed This Encounter ??? HYDROcodone-acetaminophen [...] Cough 1 Inhaler 2 ??? [START ON 04/16/2020] HYDROcodone-acetaminophen (NORCO) 5-325 MG tablet Take 1 tablet by mouth every 4 hours as needed for Pain Dx M50.30 120 tablet 0 ??? [START ON 03/20/2020] HYDROcodone-acetaminophen (NORCO) 7.5-325 MG tablet Take 1 [...] smoking Refilled pain medicine for 90 days discussed DOT and not taking pain medicine, due to DOT and he does not seem to understand that I am it that DOT does not allow pain pills at all. He passed his drugtest so he does not seem concern. He is gone without pain medicine but says that his life is miserable at times and he thinks he needs to take them. 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 But that is up to him continue lifestyle changes her blood pressure continue all other treatment as is Safe [...] as of this encounter Visit Diagnoses Diagnosis Smoker- Primary Tobacco use disorder Degeneration of lumbar or lumbosacral intervertebral disc HTN (hypertension), benign Essential hypertension, benign documented in this encounter Care Teams Living Supervisor Relationship Specialty Start Date End Date Alf Khan DO PCP - General Family Medicine 09/03/13 02/27/23 documented as of this encounter
--- OUTSIDE RECORDS SUMMARY | 2024-09-06 20:28 | XMS_ITS | Encounter Summary ---
Author Organization [facility] Address [address] [place] [address] Care Team Providers Care News Librarian Name Role Phone Alf Khan DO Primary Care Provider Stephan rosa Reason for Visit * Reason Comments Cough pt here today with o ngoing coughing with chest congestion for few days Medication Check pharmacy confirmed w ith Encounter Details Date Type Department Care Team (Latest Contact Info) Description 02/12/2019 8:30 AM CDT Office Visit [facility] - Family Medicine [address] [place] [address] Alf Khan DO Intermittent asthma without complication, unspecified asthma severity (HCC) (Primary Dx); Pain medication agreement signed; Degeneration of lumbar or lumbosacral intervertebral disc; Degeneration of cervical intervertebral disc; Acute bronchitis, unspecified organism; Mixed hyperlipidemia Social History Tobacco Use Types Packs/Day Years Used Date Smoking Tobacco: Every Day Cigarettes 1.5 25 Started: 12/07/1985; Last attempted to quit: 12/07/2010 Smokeless Tobacco: Never Alcohol Use Standard Drinks/Week Comments Yes 0 (1 standard drink = 0.6 oz pur e alcohol) social Sex and Gender Information Value Date Recorded Sex Assigned at Male 08/31/2020 7:44 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 Gender Identity Male 08/31/2020 7:44 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 Sexual Orientation Straight 08/31/2020 7: 44 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 documented as of this encounter Last Filed Vital Signs Vital Sign Reading Time Taken Comments Blood Pressure 128/80 02/12/2019 8:38 AM CDT Pulse 82 02/12/2019 8:38 AM CDT Temperature 36.2 ??C (97.2 ??F) 02/12/2019 8:38 AM CD T Respiratory Rate - - Oxygen Saturation 97% 02/12/2019 8:38 AM CDT Inhaled Oxygen Concentration - - Weight 96.2 kg (212 lb) 02/12/2019 8:38 AM CDT Height 180.3 cm (5' 11 ) 02/12/2019 8:38 AM CDT Body Mass Index 29.57 02/12/2019 8:38 AM CDT documented in this encounter Functional [...] * Patient Instructions* Puja Raymundo R - 02/12/2019 8:39 AM CDT Caring for Your High Blood Pressure [...] Where can I go for more information? [place] [employer] National Center: http://www.americanheart.org 1. In the top header, click ???Conditions?? . 2. In the top header, click ???high blood pressure.?? 3. For a printable blood pressure tracker, scroll toward the bottom of the page to Related Tools, and click ???HBP Trackers.?? 5-466-BLG-USA-1 or ( ) National Heart, Lung and Blood [place]: http://www.nhlbi.nih.gov/health/infoctr/index.htm Where can I go for support and more information? There are many ways to quit smoking. Some may work better for you than others. Your caregiver can help you find the best plan to quit. [employer] Phone: 6-473-WGPU-NOW ( ) www.[employer] [employer] Phone: Phone: www.lung.org Instant Rewards [...] that your body is healing. -Taken from www.[employer]oke[employer] Biologicsee.gov Long?term Rewards of Quitting Tobacco use in [...] encounter Progress Notes * Alf Khan, - 02/12/2019 8:57 AM CDT Office Visit, Established Patient, [id number] HISTORY: CC Trenton Crockett is a 53 year old male patient, here for: pain medication refill Chief Complaint Patient presents with ??? Cough pt here today with ongoing coughing with chest congestion for few days ??? Medication Check pharmacy confirmed with HPI: Here for med refill. Also c/o dry cough for the past 5 days w/ associated myalgias, worsening wheezing, fever/chills, fatigue/malaise. Has tried Mucinex with no relief. No N/V/D, CP Quit smoking for 7 years but started again 2 years ago. Keeping weight off, told this is helping him tremendously because is keeping his sugar normal levels Wt Readings from Last 3 Encounters: 02/12/19 96.2 kg (212 lb) 12/24/18 97.3 kg (214 lb 6.4 oz) 09/15/18 97.5 kg (215 lb) BP good today at 128/80. BP Readings from Last 3 Encounters: 02/12/19 128/80 12/24/18 120/74 09/15/18 130/78 He had normal A1c 2 years ago. Recent Labs Component Name 04/08/17 1055 04/08/14 1413 HGBA1C 5.3 5.9* His cardiac risk is still in the borderline range. This is also because he started smoking again bestop smoking would probably be a normal range Recent Labs Component Name 04/08/17 1055 04/05/14 1540 04/10/13 1416 CHOL 165 172 182 TRIG 177* 393* 157* HDL 47 34* 45 LDLCALC 83 59 106* The 10-year ASCVD risk score (Carlos Eduardo BOYLE Jr, et al., 2013) is: 7.7% Values used to calculate the score: Age: 53 years Sex: Male Is Non- : No Diabetic: No Tobacco smoker: Yes Systolic Blood Pressure: 128 mmHg Is BP treated: No HDL Cholesterol: 47 mg/dL Total Cholesterol: 165 mg/dL Patient Active Problem List Diagnosis Date Noted [...] ??? Cancer - Lung Mother EXAM BP 128/80 Pulse 82 Temp 97.2 ??F (36.2 ??C) Wt 96.2 kg (212 lb) SpO2 97% BMI 29.57 kg/m2 FiO2: General appearance - alert, appears ill ENT - TMs are clear, nose- swollen boggy nasal mucosa with some discharge noted, throat -Clear minor tonsillar swelling or noted no erythema no exudates Neck- no anterior cervical adenopathy, carotids are without bruits Chest - End inspiratory and expiratory wheezes all baer Heart - normal rate, regular rhythm, normal S1, S2, no murmurs, rubs, clicks or gallops Skin-no visible rash Depression: PHQ-2:TOTAL POINT SCORE: 0 PHQ-9: ASSESSMENT: ICD-10-CM 1. Intermittent asthma without complication, unspecified asthma severity J45.20 2. Pain medication agreement signed Z02.89 3. Degeneration of lumbar or lumbosacral intervertebral disc M51.37 4. Degeneration of cervical intervertebral disc M50.30 5. Acute bronchitis, unspecified organism J20.9 6. Mixed hyperlipidemia E78.2 PLAN: Orders Placed This Encounter ??? predniSONE (DELTASONE) 10 MG tablet Si qd x 2 days, pc then 1 less pill every 2 days until gone Dispense: 20 tablet Refill: 0 ??? albuterol HFA (PROVENTIL;VENTOLIN;PROAIR) 108 (90 Base) MCG/ACT inhaler Sig: Inhale 2 puffs by mouth every 4 hours as needed for Shortness of Breath, Wheezing or Cough Dispense: 1 Inhaler Refill: 2 ??? azithromycin (ZITHROMAX) 250 MG tablet Sig: Take 2 qd first day and then 1 qd Dispense: 6 tablet Refill: 0 Goals ? ? Blood Pressure < 140/90 ??? Quit smoking / using tobacco Medications Discontinued During This Encounter Medication Reason ??? albuterol HFA (PROVENTIL;VENTOLIN;PROAIR) 108 (90 BASE) MCG/ACT inhaler Reorder Current Outpatient Prescriptions Medication Sig Dispense [...] current facility-administered medications for this visit. got new script for albuterol inhaler, prednisone 40 mg taper to 10 mg over 8 days, he requested a Z-Mariano so I got him this to cover possible bacterial infection I showed him that he had pain pills at the drugstore from previous visit he does at to call them and asked them to fill them. He did not seem to understand the process Continue all other treatment as is SE [...] as of this encounter Visit Diagnoses Diagnosis Intermittent asthma without complication, unspecified asthma severity (HCC)- Primary Pain medication agreement signed Encounter for long-term (current) use of other medications Degeneration of lumbar or lumbosacral intervertebral disc Degeneration of cervical intervertebral disc Acute bronchitis, unspecified organism Mixed hyperlipidemia documented in this encounter Care Teams News Librarian Relationship Specialty Start Date End Date Alf Khan DO PCP - General Family Medicine 09/03/13 02/27/23 documented as of this encounter
--- OUTSIDE RECORDS SUMMARY | 2024-09-06 20:28 | XMS_ITS | Encounter Summary ---
Author Organization [facility] Address [address] [place] [address] Care Team Providers Care Housekeeping Staff Name Role Phone Alf Khan DO Primary Care Provider Stephan rosa Reason for Visit * Reason Comments Refill Request Encounter Details Date Type Department Care Team (Late st Contact Info) Description 10/11/2015 Refill [facility] - Family Medicine [address] [place] [address] Alf Khan, DO Refill Request Social History Tobacco Use Types Packs/Day Years Used Date Smoking Tobacco: Former Cigarettes 1.5 25 0 12/07/1985 - 12/07/2010 Smokeless Tobacco: Never Alcohol Use Standard Drinks/Week Comments Yes 0 (1 standard drink = 0.6 oz pur e alcohol) social Sex and Gender Information Value Date Recorded Sex Assigned at Male 08/31/2020 7:44 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 omeprazole (PRILOSEC) 20 MG capsule [Pharmacy Med Name: OMEPRAZOLE 20MG CAPSULES] 30 Cap Sig: TAKE 1 CAPSULE BY MOUTH EVERY DAY Allergies Allergen Reactions ??? Perry Inhibitors Cough Last refill- 08/12/2015 Last OV- 08/17/2015 Future OV- no future appt ERNMAKER documented in this encounter Plan of Treatment Not on file documented as of this encounter Goals Goal Patient Goal Type Associated Problems Recent Progress Patient-Stated? Author Blood Pressure < 140/90 Blood Pressure 172/93(2022 8:59 AM CDT) No Zachary Moreno documented as of this encounter Visit Diagnoses Not on filedocumented in this encounter Care Teams Housekeeping Staff Relationship Specialty Start Date End Date Alf Khan DO PCP - General Family Medicine 09/03/13 02/27/23 documented as of this encounter
--- OUTSIDE RECORDS SUMMARY | 2024-09-06 20:28 | XMS_ITS | Encounter Summary ---
Author Organization [facility] Address [address] [place] [address] Care Team Providers Care Sport Internship Name Role Phone Alf Khan DO Primary Care Provider Stephan rosa Reason for Visit * Reason Onset Date Comments Medication Request 04/09/2017 Encounter Details Date Type Department Care Team (Late st Contact Info) Description 04/09/2017 Telephone [facility] - Family [facility] [address] [place] [address] Alf Khan, DO Medication Request Social History Tobacco Use Types Packs/Day Years Used Date Smoking Tobacco: Former Cigarettes 1.5 25 0 12/07/1985 - 12/07/2010 Smokeless Tobacco: Never Alcohol Use Standard Drinks/Week Comments Yes 0 (1 standard drink = 0.6 oz pur e alcohol) social Sex and Gender Information Value Date Recorded Sex Assigned at Male 08/31/2020 7:44 AM AUDITOR/QUALITY Gender Identity Male 08/31/2020 7:44 AM AUDITOR/QUALITY Sexual Orientation Straight 08/31/2020 7: 44 AM AUDITOR/QUALITY documented as of this encounter Functional Status [...] Telephone Encounter - Yanely Todd - 04/09/2017 11:26 AM CDT Called pt and informed per Dr. Khan * Telephone Encounter - Alf Khan DO - 04/09/2017 10:54 AM CDT He would have to contact his insurance company and see if anything is covered These are all very expensive and there is no generics So he can contact his ins company and see if anything is covered. Usually it is not bc sexual Function is not a covered beneifit * Telephone Encounter - Carmen Forbes - 04/09/2017 9:40 AM CDT Patient called stating Rx for sildenafil (VIAGRA) 100 MG tablet are not covered under his insuranceand the out of pocket cost of medication is too expensive. Requesting generic and lower dose of medication with (increased quantity) to help with affordability of medication. documented in this encounter Plan of Treatment Not on file documented as of this encounter Goals Goal Patient Goal Type Associated Problems Recent Progress Patient-Stated? Author Blood Pressure < 140/90 Blood Pressure 172/93(2022 8:59 AM CDT) No Zachary Moreno documented as of this encounter Visit Diagnoses Not on filedocumented in this encounter Care Teams Sport Internship Relationship Specialty Start Date End Date Alf Khan DO PCP - General Family Medicine 09/03/13 02/27/23 documented as of this encounter
--- OUTSIDE RECORDS SUMMARY | 2024-09-06 20:28 | XMS_ITS | Encounter Summary ---
Author Organization [facility] Address [address] [place] [address] Care Team Providers Care Bung Remover Name Role Phone Alf Khan DO Primary Care Provider Stephan rosa Reason for Visit * Reason Comments Blood in urine Onset this morning, taking hydrocodone for chronic back. Encounter Details Date Type Department Care Team (Late st Contact Info) Description 02/22/2018 6:17 PM CDT - 02/22/2018 9:06 PM CDT Emergency ER at [address] [address] Junior Gutierrez MD [address] [place] [address] [place] [address] Acute UTI (Primary Dx); Painless hematuria Discharge Disposition: Home or Self Care Social History Tobacco Use Types Packs/Day Years Used Date Smoking Tobacco: Every Day Cigarettes 1.5 25 Started: 12/07/1985; Last attempted to quit: 12/07/2010 Smokeless Tobacco: Never Alcohol Use Standard Drinks/Week Comments Yes 0 (1 standard drink = 0.6 oz pur e alcohol) social Sex and Gender Information Value Date Recorded Sex Assigned at Male 08/31/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 Gender Identity Male 08/31/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 Sexual Orientation Straight 08/31/2020 7: 44 AM 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 documented as of this encounter Last Filed Vital Signs Vital Sign Reading Time Taken Comments Blood Pressure 143/83 02/22/2018 7:30 PM CDT Pulse 78 02/22/2018 6:12 PM CDT Temperature 36.6 ??C (97.8 ??F) 02/22/2018 6:12 PM CD T Respiratory Rate 16 02/22/2018 6:12 PM CDT Oxygen Saturation 95% 02/22/2018 7:30 PM CDT Inhaled Oxygen Concentration - - Weight - - Height - - Body Mass Index - - documented in this encounter Functional Status Functional [...] this encounter Discharge Instructions * Discharge Instructions* Junior Gutierrez MD - 02/22/2018 8:30 PM CDT Images from the original note were not included. Hematuria WHAT YOU NEED TO KNOW: Hematuria is blood in your urine. Your urine may be bright red to dark brown. DISCHARGE INSTRUCTIONS: Return to the emergency department if: ?? You have blood in your urine after a new injury, such as a fall. ?? You are urinating very small amounts or not at all. ?? You feel like you cannot empty your bladder. ?? You have severe back or side pain that does not go away with treatment. Contact your healthcare provider if: ?? You have a fever that gets worse or does not go away with treatment. ?? You cannot keep liquids or medicines down. ?? Your urine gets darker, even after you drink extra liquids. ?? You have questions or concerns about your condition, treatment, or care. Drink liquids as directed: You may need to drink extra liquids to help flush the blood from your body through your urine. Water is the best liquid to drink. Ask how much liquid to drink each day and which liquids are best for you. Follow up with your healthcare provider as directed: Write down your questions so you remember to ask them during your visits. ?? 2017 [employer] Information is for End User's use only and may not be sold, redistributed or otherwise used for commercial purposes. All illustrations and images included in CareNotes?? are the copyrighted property of [employer] or [employer]. The above information is an case aide only. It is not intended as medical advice for individual conditions or treatments. Talk to your doctor, nurse or pharmacist before following any medical regimen to see if it is safe and effective for you. Urinary Tract Infection in Men WHAT YOU NEED TO KNOW: A urinary tract infection (UTI) is caused by bacteria that get inside your urinary tract. Most bacteria that enter your urinary tract come out when you urinate. If the bacteria stay in your urinary tract, you may get an infection. Your urinary tract includes your kidneys, ureters, bladder, and urethra. Urine is made in your kidneys, and it flows from the ureters to the bladder. Urine leaves the bladder through the urethra. A UTI is more common in your lower urinary tract, which includes your bladder and urethra. DISCHARGE INSTRUCTIONS: Return to the emergency department if: ?? You are urinating very little or not at all. ?? You have a high fever with shaking chills. ?? You have side or back pain that gets worse. Contact your healthcare provider if: ?? You have a mild fever. ?? You do not feel better after 2 days of taking antibiotics. ?? You are vomiting. ?? You have new symptoms, such as blood or pus in your urine. ?? You have questions or concerns about your condition or care. Medicines: ?? Antibiotics help fight a bacterial infection. ?? Medicines may be given to decrease pain and burning when you urinate. They will also help decrease the feeling that you need to urinate often. These medicines will make your urine orange or red. ?? Take your medicine as directed. Contact your healthcare provider if you think your medicine is not helping or if you have side effects. Tell him of her if you are allergic to any medicine. Keep a list of the medicines, vitamins, and herbs you take. Include the amounts, and when and why you take them. Bring the list or the pill bottles to follow-up visits. Carry your medicine list with you in case of an emergency. Prevent another UTI: ?? Empty your bladder often. Urinate and empty your bladder as soon as you feel the need. Do not hold your urine for long periods of time. ?? Drink liquids as directed. Ask how much liquid to drink each day and which liquids are best for you. You may need to drink more liquids than usual to help flush out the bacteria. Do not drink alcohol, caffeine, or citrus juices. These can irritate your bladder and increase your symptoms. Your healthcare provider may recommend cranberry juice to help prevent a UTI. ?? Urinate after you have sex. This can help flush out bacteria passed during sex. ?? Do pelvic muscle exercises often. Pelvic muscle exercises may help you start and stop urinating.Strong pelvic muscles may help you empty your bladder easier. Squeeze these muscles tightly for 5 seconds like you are trying to hold back urine. Then relax for 5 seconds. Gradually work up to squeezing for 10 seconds. Do 3 sets of 15 repetitions a day, or as directed. Follow up with your healthcare provider as directed: Write down your questions so you remember to ask them during your visits. ?? 2017 [employer] Information is for End User's use only and may not be sold, redistributed or otherwise used for commercial purposes. All illustrations and images included in CareNotes?? are the copyrighted property of [employer] [place]. or [employer]. The above information is an case aide only. It is not intended as medical advice for individual conditions or treatments. Talk to your doctor, nurse or pharmacist before following any medical regimen to see if it is safe and effective for you. documented in this encounter Medications at Time of Discharge Medication Sig Dispensed Refills Start Date End Date albuterol HFA (PROAIR HFA) 108 (90 BASE) MCG/ACT inhaler Inhale 2 Puffs by mouth every 6 hours as needed Reported on 07/31/2016 05/12/2018 albuterol HFA (PROVENTIL;VENTOLIN;OK OAIR) 108 (90 BASE) MCG/ACT inhaler Inhale 2 Puffs by mouth every 4 hours as needed for Shortness of Breath, Wheezing or Cough 1 Inhaler 07/31/2016 05/12/2018 ciprofloxacin (CIPRO) 500 MG tablet Take 1 tablet by mouth 2 times daily for 10 days 20 tablet 02/22/2018 03/04/2018 HYDROcodone-acetaminop hen (NORCO) 5-325 MG tablet Take 1 tablet by mouth every 4 hours as needed for Pain 30 tablet 09/05/2017 09/15/2018 HYDROcodone-acetaminop hen (NORCO) 7.5-325 MG tablet Take 1 tablet by mouth every 4 hours as needed for Pain 120 tablet 03/31/2018 05/12/2018 HYDROcodone-acetaminop hen (NORCO) 7.5-325 MG tablet Take 1 tablet by mouth every 4 hours as needed for Pain 120 tablet 02/18/2018 05/12/2018 sildenafil (REVATIO) 20 MG tablet TAKE 5 TABLETS BY MOUTH ONCE DAILY NEEDED 25 tablet 11 12/19/2017 02/18/2019 sildenafil (VIAGRA) 100 MG tablet Take 1 tablet by mouth once daily as needed 6 tablet 5 12/18/2017 03/17/2019 documented as of this encounter ED Notes * Idania David - 02/22/2018 9:04 PM CDT Pt ambulatory, stated pain controlled, no stand by assistance needed, speech clear, respirations even and unlabored, VSS, no c/o of SOB, dizziness, or NAD. Pt directed to ED waiting room with all belongings. * Idania David - 02/22/2018 8:07 PM CDT Pt returned from CT. * Cori Dumont RN - 02/22/2018 7:55 PM CDT Pt to CT via stretcher * Idania David - 02/22/2018 7:13 PM CDT Report received from MARIANA Cordero. Transferring patient care. * Gil Fulton RN - 02/22/2018 7:07 PM CDT Report given to Darion and MARIANA Persaud. * Gil Fulton RN - 02/22/2018 7:05 PM CDT Started having bleeding with urination, started this AM. Pt is A/O x 4. Moves all extremities. Up ad dior. IV access and IV fluids as ordered. Labs sent and urine. Monitor on. Monitoring. * Junior Gutierrez MD - 02/22/2018 6:30 PM CDT Provider contact with the patient: 02/22/2018 18:30 Trenton Crockett [id number] [facility] EMERGENCY DEPARTMENT History Chief Complaint Patient presents with ??? Blood in urine Onset this morning, taking hydrocodone for chronic back. Chief complaint narrative was entered by triage nurse, not by physician. HPI 6:30 PM Trenton Crockett, a 52 y.o. male with a past medical history that includes--Pure hypercholesterolemia, GERD--presents to the ER c/o blood in urine he noticed this morning. Pt states that it seemed like it was getting darker over time. He notes that he has a hx of kidney stones. 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 Pt states he recently saw his PCP fora refill of Vicodin for his chronic back pain. He denies taking Ibuprofen and Motrin. He adds that he used to take medication for HTN, but is no longer prescribed it due to a change in diet. He denies abdominal pain, flank pain, nausea, vomiting, CP, SOB, and weakness. He also denies any traumas or falls to back. SHx: Daily Smoker PCP: Alf Khan, DO Past Medical History: Diagnosis Date ??? GERD (gastroesophageal reflux disease) controlled ??? Motion sickness ??? Pure hypercholesterolemia ??? Snoring no c-pap ??? Unspecified essential hypertension Past Surgical History: Procedure Laterality Date ??? COLONOSCOPY WITH POLYPECTOMY 04/15/2014 Dr Rios ??? HERNIA REPAIR, VENTRAL 06/03/2012 ??? INCISION AND DRAINAGE 09/05/2017 PERIRECTAL ABSCESS ??? INCISION AND DRAINAGE Right 09/05/2017 Right; INCISION AND DRAINAGE ABSCESS PERIRECTAL ??? [place] Tooth Extraction Family History Problem Relation Age of Onset ??? Cancer - Lung Mother Social History Social History ??? Marital status: [...] ??? Not on file Social History Narrative Allergies Allergen Reactions ??? Perry Inhibitors Cough Review of Systems Review of Systems Constitutional: Negative for chills, fever and malaise/fatigue. HENT: Negative for congestion and sore throat. Eyes: Negative for blurred vision and photophobia. Respiratory: Negative for cough, shortness of breath and stridor. Cardiovascular: Negative for chest pain, palpitations and leg swelling. Gastrointestinal: Negative for abdominal pain, blood in stool, constipation, diarrhea, nausea and vomiting. Genitourinary: Positive for hematuria. Negative for dysuria. Musculoskeletal: Negative for back pain, myalgias and neck pain. Skin: Negative for itching and rash. Neurological: Negative for dizziness, tingling, sensory change, speech change, focal weakness and headaches. Psychiatric/Behavioral: Negative for depression and hallucinations. Physical Exam BP 147/85 Pulse 78 Temp 97.8 ??F (36.6 ??C) Resp 16 SpO2 97% Physical Exam Constitutional: He is oriented to person, place, and time. He appears well- developed and well-nourished. No distress. HENT: Head: Normocephalic and atraumatic. Nose: Nose normal. Eyes: EOM are normal. Pupils are equal, round, and reactive to light. Right eye exhibits no discharge. Left eye exhibits no discharge. Neck: Normal range of motion. Neck supple. Cardiovascular: Normal rate, regular rhythm, normal heart sounds and intact distal pulses. Pulmonary/Chest: Effort normal and breath sounds normal. No stridor. No respiratory distress. He has no wheezes. He has no rales. Abdominal: Soft. Bowel sounds are normal. He exhibits no distension. There is no tenderness. Musculoskeletal: Normal range of motion. He exhibits no edema, tenderness or deformity. Lymphadenopathy: He has no cervical adenopathy. Neurological: He is alert and oriented to person, place, and time. No cranial nerve deficit. GCS eye subscore is 4. GCS verbal subscore is 5. GCS motor subscore is 6. Skin: Skin is warm and dry. No rash noted. He is not diaphoretic. No erythema. Psychiatric: He has a normal mood and affect. His behavior is normal. Nursing note and vitals reviewed. Medications Current Outpatient Prescriptions Medication Sig Dispense Refill ??? ciprofloxacin (CIPRO) 500 MG tablet Take 1 tablet by mouth 2 times daily for 10 days 20 tablet 0 ??? [START ON 03/31/2018] HYDROcodone-acetaminophen (NORCO) 7.5-325 [...] Reported on 11/19/2017) 30 tablet 0 ??? albuterol HFA (PROVENTIL;VENTOLIN;PROAIR) 108 (90 BASE) MCG/ACT inhaler Inhale 2 Puffs by mouthevery 4 hours as needed for Shortness of Breath, Wheezing or Cough 1 Inhaler 0 ??? albuterol HFA (PROAIR HFA) 108 (90 BASE) MCG/ACT inhaler Inhale 2 Puffs by mouth every 6 hours as needed Reported on 07/31/2016 Procedures Procedures ECG Interpretation ECG Interpretation Lab Interpretation Oxygen Saturation Interpretation The oxygen saturation level is: 100%. The patient was on Room Air for the saturation measurement. Measurement frequency: Continuous. Oxygen saturation interpretation is Normal. Intervention(s) used: None. Hospital Encounter on 02/22/18 URINALYSIS REFLEX MICROSCOPIC REFLEX CULTURE Result Value Ref Range Color UA Grossly Bloody (Abnormal) Straw, Yellow Clarity UA Turbid (Abnormal) Clear Glucose UA 1+ (Abnormal) Negative Bili UA Negative Negative Ketone UA Trace (Abnormal) Negative Specific [place] UA 1.040 (H) 1.005 - 1.030 Blood UA 3+ (Abnormal) Negative pH UA 5.0 5.0 - 8.0 pH Protein UA 2+ (Abnormal) Negative Urobilinogen UA Negative Negative mg/dL Nitrite UA Positive (Abnormal) Negative Leukocyte UA Trace (Abnormal) Negative Urine Microscopy Urine microscopy to follow Reflex Status Culture to follow CBC W AUTO DIFFERENTIAL Result Value Ref Range WBC 11.5 (H) 4.4 - 10.7 x10E9/L WBC Corrected x10E9/L RBC 5.11 3.80 - 5.40 x10E12/L Hemoglobin 16.8 12.0 - 17.6 gm/dL Hematocrit 48.8 35.2 - 51.7 % MCV 95.5 80.7 - 98.3 fl MCH 32.9 26.7 - 34.0 pg MCHC 34.4 30.8 - 35.9 gm/dL Plt Ct 261 153 - 416 x10E9/L RDW-CV 12.6 12.1 - 14.9 % MPV 11.5 9.4 - 12.9 fl Neutro 62.1 44.0 - 73.0 % Lymph 28.4 20.0 - 43.0 % [place] 7.0 5.0 - 13.0 % Eos 1.7 0.0 - 6.0 % Baso 0.5 0.0 - 2.0 % Immature Grans 0.3 0 - 1 % Neutro Abs 7.16 (H) 2.01 - 7.14 x10E9/L Lymph Abs 3.28 1.07 - 3.94 x10E9/L [place] Abs 0.81 0.26 - 1.07 x10E9/L Eosin Abs 0.20 0 - 0.47 x10E9/L Baso Abs 0.06 0 - 0.08 x10E9/L Immature Grans (Abs) 0.03 0.00 - 0.06 x10E9/L NRBC Auto 0 /100 WBC COMPREHENSIVE METABOLIC PANEL Result Value Ref Range Glucose 104 74 - 106 mg/dL Sodium 141 136 - 145 mmol/L Potassium 3.6 3.5 - 5.1 mmol/L Chloride 105 98 - 107 mmol/L CO2 27 22 - 31 mmol/L Calcium 8.4 (L) 8.5 - 10.1 mg/dL Anion Gap 9 8 - 16 mmol/L BUN 15 7 - 21 mg/dL Creatinine 0.78 0.50 - 1.30 mg/dL Alkaline Phosphatase 92 38 - 126 U/L ALT/SGPT 11 (L) 13 - 61 U/L AST/SGOT 15 5 - 40 U/L Protein Total 7.4 6.4 - 8.2 gm/dL Albumin 3.6 3.4 - 5.0 gm/dL Bili Total 0.8 0.2 - 1.0 mg/dL eGFR MDRD >60 >60 mL/min/1.73m2 eGFR MDRD AFR AMR >60 >60 mL/min/1.73m2 LIPASE BLOOD Result Value Ref Range Lipase 133 73 - 393 U/L URINE MICROSCOPIC ONLY REFLEX TO CULTURE Result Value Ref Range Reflex Status Culture to follow RBC UA >100 (Abnormal) 0-5, None Seen # /hpf WBC UA 0-5 0-5, None Seen # /hpf Bacteria UA None Seen None Seen Squamous epithelial cells None Seen None Seen, 0-2, 3-5 /hpf Mucus 4+ /LPF Calcium Oxalate Crystals Few (Abnormal) None seen /HPF CT ABDOMEN AND PELVIS NON IV CONTRAST Final Result Examination: Noncontrast Abdomen and Pelvic CT H.I.S. [...] or syntax problems by a trained medical office assistant. For questions about the report, please contact [...] Duval MD on 02/22/2018 at 8:12 PM Progress Notes 8:34 PM I had a formal disposition interview with the patient to discuss the ED visit including all diagnostic studies, results, and the disposition plan of discharge. Instructed patient to follow up with PCP for further outpatient management. Advised to RTER for new, worsening, or any persistent conditions. All questions and concerns were addressed at this time. Pt agrees with plan and is comfortable with discharge at this time. ED Course ED Course Medical Decision Making I have reviewed the: Previous Chart, Nursing Notes, Vitals. I have interpreted the following results: Labs, CT Scans and Oxygen Saturation. Orders Placed This Encounter ??? CULTURE URINE ??? CT ABDOMEN AND PELVIS NON IV CONTRAST ??? URINALYSIS REFLEX MICROSCOPIC REFLEX CULTURE ??? CBC W AUTO DIFFERENTIAL ??? COMPREHENSIVE METABOLIC PANEL ??? LIPASE BLOOD ??? URINE MICROSCOPIC ONLY REFLEX TO CULTURE ??? 0.9% NaCl IV Bolus ??? ciprofloxacin (CIPRO) 500 MG tablet Pt here with hematuria. Exam benign. UA c/w UTI. Labs including renal function unremarkable. CT abd/pelvis negative for acute pathology, no mass/kidney stone noted. Safe for discharge with PO abx forUTI, urology referral given and discussed importance of f/u if hematuria does not resolve. Discussed elevated BP reading in ER and importance of f/u with PCP for re-check. Clinical Impression Final diagnoses: Painless hematuria Acute UTI (Primary) New Medications: Discharge Medication List as of 02/22/2018 8:30 PM START taking these medications Details ciprofloxacin (CIPRO) 500 MG tablet Disp-20 tablet, R-0, Take 1 tablet by mouth 2 times daily for 10 days, Print I have advised the patient to follow-up with: Alf Khan DO [address] [facility] [address] As needed, [place] [id number] [facility] [id number] Schedule an appointment as soon as possible for a visit If symptoms worsen Disposition: Discharged Scribe Signature and Attestation By signing my name below, I, Roberth Louise, attest that this documentation has been prepared under the direction and in the presence of Dr. Gutierrez. Provider Signature and Attestation I, Dr. Gutierrez, personally performed the services described in this documentation. All medical record entries made by the scribe were at my direction and in my presence. I have reviewed the chart andagree that the record reflects my personal performance and is accurate and complete. 02/22/2018 9:38 PM documented in this encounter Plan of Treatment Not on file documented as of this encounter Goals Goal Patient Goal Type Associated Problems Recent Progress Patient-Stated? Author Blood Pressure < 140/90 Blood Pressure 172/93(2022 8:59 AM CDT) No Zachary Moreno documented as of this encounter Procedures Procedure Name Priority Date/Time Associated Diagnosis Comments CT ABDOMEN PELVIS WO CONTRAST STAT 02/22/2018 8:06 PM CDT Painless hematuria URINE MICROSCOPIC ONLY REFLEX TO CULTURE STAT 02/22/2018 6:37 PM CDT URINALYSIS REFLEX MICROSCOPIC REFLEX CULTURE STAT 02/22/2018 6:37 PM CDT CULTURE URINE STAT 02/22/2018 6:37 PM CDT CBC W AUTO DIFFERENTIAL STAT 02/22/2018 6:36 PM CDT COMPREHENSIVE METABOLIC PANEL STAT 02/22/2018 6:36 PM CDT LIPASE BLOOD STAT 02/22/2018 6:36 PM CDT documented in this encounter Results * CT ABDOMEN AND PELVIS NON IV [...] or syntax problems by a trained medical office assistant. For questions about the report, please contact [...] or syntax problems by a trained medical office assistant. For questions about the report, please contact [...] PM Junior Gutierrez MD CT ORDERABLES * CULTURE URINE (02/22/2018 6:37 PM CDT) Culture Urine 10,000-50,000 CFU/mL urogenital jayleen CARLOS 02/23/2018 11:00 AM CDT [facility] MICROBIOLOGY Urine URINE SPECIMEN OBTAINED BY CLEAN CATCH PROCEDURE / Unknown Collection / Unknown 02/22/2018 6:37 PM CDT 02/22/2018 6:36 PM CDT Junior Gutierrez MD LAB - MICROBIOLOGY O RDERABLES [facility] MICROBIOLOGY [address] [place] [address], [facility] [phone] * (ABNORMAL) URINE MICROSCOPIC ONLY REFLEX TO CULTURE (02/22/2018 6:37 PM CDT) Reflex Status Culture to follow 02/22/2018 6:47 PM CDT [facility] RBC UA >100(A) 0-5, None Seen # /hpf 02/22/2018 6:47 PM CDT [facility] WBC UA 0-5 0-5, None Seen # /hpf 02/22/2018 6:47 PM CDT [facility] Bacteria UA None Seen None Seen 02/22/2018 6:47 PM CDT [facility] Squamous Epithelial Cells None Seen None Seen, 0-2, 3-5 /hpf 02/22/2018 6:47 PM CDT [facility] Mucus UA 4+ /LPF 02/22/2018 6:47 PM CDT [facility] Calcium Oxalate Crystals Few(A) None seen /HPF 02/22/2018 6:47 PM CDT [facility] Urine URINE SPECIMEN OBTAINED BY CLEAN CATCH PROCEDURE / Unknown Collection / Unknown 02/22/2018 6:37 PM CDT 02/22/2018 6:36 PM CDT Narrative [facility] - 02/22/2018 6:47 PM CDT Junior Gutierrez MD LAB - URINALYSIS ORD ERABLES [facility] [address] [place] [address] * (ABNORMAL) URINALYSIS REFLEX MICROSCOPIC REFLEX CULTURE (02/22/2018 6:37 PM CDT) Color UA Grossly Bloody(A) Straw, Yellow 02/22/2018 6:47 PM CDT [facility] Clarity UA Turbid(A) Clear 02/22/2018 6:47 PM CDT [facility] Glucose UA 1+(A) Negative 02/22/2018 6:47 PM CDT [facility] Bilirubin UA Negative Negative 02/22/2018 6:47 PM CDT [facility] Ketone UA Trace(A) Negative 02/22/2018 6:47 PM CDT [facility] Specific [place] UA 1.040(H) 1.005 - 1.030 02/22/2018 6:47 PM CDT [facility] Blood UA 3+(A) Negative 02/22/2018 6:47 PM CDT [facility] pH UA 5.0 5.0 - 8.0 pH 02/22/2018 6:47 PM CDT [facility] Protein UA 2+(A) Negative 02/22/2018 6:47 PM CDT [facility] Urobilinogen UA Negative Negative mg/dL 02/22/2018 6:47 PM CDT [facility] Nitrite UA Positive(A) Negative 02/22/2018 6:47 PM CDT [facility] Leukocyte UA Trace(A) Negative 02/22/2018 6:47 PM CDT [facility] Urine Microscopy Urine microscopy to follow 02/22/2018 6:47 PM CDT [facility] Reflex Status Culture to follow 02/22/2018 6:47 PM CDT [facility] Urine URINE SPECIMEN OBTAINED BY CLEAN CATCH PROCEDURE / Unknown Collection / Unknown 02/22/2018 6:37 PM CDT 02/22/2018 6:36 PM CDT Narrative [facility] - 02/22/2018 6:47 PM CDT Ascorbic Acid can cause false negative urine strip tests for blood, glucose, nitrite, and bilirubin. Junior Gutierrez MD LAB - URINALYSIS ORD ERABLES Performing Organization Address [facility] Co de Phone Number [facility] [address] [place], [place] [id number] * LIPASE BLOOD (02/22/2018 6:36 PM CDT) Lipase 133 73 - 393 U/L 02/22/2018 7:16 PM CDT [facility] Blood BLOOD SPECIMEN / Unknown Venipuncture / Unknown 02/22/2018 6:36 PM CDT 02/22/2018 7:01 PM CDT Junior Gutierrez MD LAB - CHEMISTRY LIZABETH WILEY Performing Organization Address [facility] Co de Phone Number [facility] [address] [place] [address] * (ABNORMAL) COMPREHENSIVE METABOLIC PANEL (02/22/2018 6:36 PM CDT) Glucose 104 74 - 106 mg/dL 02/22/2018 7:16 PM CDT [facility] Sodium 141 136 - 145 mmol/L 02/22/2018 7:16 PM CDT [facility] Potassium 3.6 3.5 - 5.1 mmol/L 02/22/2018 7:16 PM CDT [facility] Chloride 105 98 - 107 mmol/L 02/22/2018 7:16 PM CDT [facility] CO2 27 22 - 31 mmol/L 02/22/2018 7:16 PM CDT [facility] Calcium 8.4(L) 8.5 - 10.1 mg/dL 02/22/2018 7:16 PM CDT [facility] Anion Gap 9 8 - 16 mmol/L 02/22/2018 7:16 PM CDT [facility] BUN 15 7 - 21 mg/dL 02/22/2018 7:16 PM CDT [facility] Creatinine 0.78 0.50 - 1.30 mg/dL 02/22/2018 7:16 PM CDT [facility] Alkaline Phosphatase 92 38 - 126 U/L 02/22/2018 7:16 PM CDT [facility] ALT 11(L) 13 - 61 U/L 02/22/2018 7:16 PM CDT [facility] AST 15 5 - 40 U/L 02/22/2018 7:16 PM CDT [facility] Protein Total 7.4 6.4 - 8.2 gm/dL 02/22/2018 7:16 PM CDT [facility] Albumin 3.6 3.4 - 5.0 gm/dL 02/22/2018 7:16 PM CDT [facility] Bilirubin Total 0.8 0.2 - 1.0 mg/dL 02/22/2018 7:16 PM CDT [facility] eGFR by MDRD >60 >60 mL/min/1.7 3m2 02/22/2018 7:16 PM CDT [facility] eGFR by MDRD >60 >60 mL/min/1.7 3m2 02/22/2018 7:16 PM CDT [facility] Blood BLOOD SPECIMEN / Unknown Venipuncture / Unknown 02/22/2018 6:36 PM CDT 02/22/2018 7:01 PM CDT Junior Gutierrez MD LAB - CHEMISTRY LIZABETH [facility] Organization Address City/State/ZIP Co de Phone Number [facility] [address] [place] [address] * (ABNORMAL) CBC W AUTO DIFFERENTIAL (02/22/2018 6:36 PM CDT) WBC 11.5(H) 4.4 - 10.7 x10E9/L 02/22/2018 6:52 PM CDT [facility] WBC Corrected x10E9/L 02/22/2018 6:52 PM CDT [facility] RBC 5.11 3.80 - 5.40 x10E12/L 02/22/2018 6:52 PM CDT [facility] Hemoglobin 16.8 12.0 - 17.6 gm/dL 02/22/2018 6:52 PM CDT [facility] Hematocrit 48.8 35.2 - 51.7 % 02/22/2018 6:52 PM CDT [facility] MCV 95.5 80.7 - 98.3 fl 02/22/2018 6:52 PM CDT [facility] MCH 32.9 26.7 - 34.0 pg 02/22/2018 6:52 PM CDT [facility] MCHC 34.4 30.8 - 35.9 gm/dL 02/22/2018 6:52 PM CDT [facility] Platelet Count 261 153 - 416 x10E9/L 02/22/2018 6:52 PM CDT [facility] RDW-CV 12.6 12.1 - 14.9 % 02/22/2018 6:52 PM CDT [facility] MPV 11.5 9.4 - 12.9 fl 02/22/2018 6:52 PM CDT [facility] Neutrophils % 62.1 44.0 - 73.0 % 02/22/2018 6:52 PM CDT [facility] Lymphocytes % 28.4 20.0 - 43.0 % 02/22/2018 6:52 PM CDT [facility] Monocytes % 7.0 5.0 - 13.0 % 02/22/2018 6:52 PM CDT [facility] Eosinophils % 1.7 0.0 - 6.0 % 02/22/2018 6:52 PM CDT [facility] Basophils % 0.5 0.0 - 2.0 % 02/22/2018 6:52 PM CDT [facility] Immature Granulocytes 0.3 0 - 1 % 02/22/2018 6:52 PM CDT [facility] Neutrophil Absolute 7.16(H) 2.01 - 7.14 x10E9/L 02/22/2018 6:52 PM CDT [facility] Lymphocytes Absolute 3.28 1.07 - 3.94 x10E9/L 02/22/2018 6:52 PM CDT [facility] Monocytes Absolute 0.81 0.26 - 1.07 x10E9/L 02/22/2018 6:52 PM CDT [facility] Eosinophils Absolute 0.20 0 - 0.47 x10E9/L 02/22/2018 6:52 PM CDT [facility] Basophils Absolute 0.06 0 - 0.08 x10E9/L 02/22/2018 6:52 PM CDT [facility] Immature Granulocytes Absolute 0.03 0.00 - 0.06 x10E9/L 02/22/2018 6:52 PM CDT [facility] nRBC Auto 0 /100 WBC 02/22/2018 6:52 PM CDT [facility] Blood BLOOD SPECIMEN / Unknown Venipuncture / Unknown 02/22/2018 6:36 PM CDT 02/22/2018 6:48 PM CDT Junior Gutierrez MD LAB - HEMATOLOGY ORD ERABLES Performing Organization Address City/State/[facility] Co de Phone Number [facility] [address] [place] [phone] documented in this encounter Visit Diagnoses Diagnosis Acute UTI- Primary Urinary tract infection, site not specified Painless hematuria Hematuria, unspecified documented in this encounter Administered Medications Inactive Administered Medications - up to 3 most recent administrations Medication Order MAR Action Action Date Dose Rate Site 0.9% NaCl IV Bolus 1,000 mL, at 2,000 mL/hr, Administer over 30 Minutes, NOW, 1 dose, On 02/22/18 at 1845 $ New Bag/Syringe 02/22/2018 6:46 PM CDT 1,000 mL 2000 mL/hr documented in this encounter Active and Recently Administered Medications Times are shown in CDT. Scheduled Medication Order 02/20/2018 02/21/2018 02/22/2018 0.9% NaCl IV Bolus (COMPLETED) 1,000 mL, at 2,000 mL/hr, Administer over 30 Minutes, NOW, 1 dose, On 02/22/18 at 1845 1846 ($ New Bag/Syri nge - Provider: Gil Fulton RN)2000 (Stopped - Provider: Idania David) documented in this encounter Care Teams Bung Remover Relationship Specialty Start Date End Date Alf Khan DO PCP - General Family Medicine 09/03/13 02/27/23 documented as of this encounter
--- OUTSIDE RECORDS SUMMARY | 2024-09-06 20:28 | XMS_ITS | Encounter Summary ---
Author Organization [facility] Address [address] [id number] Care Team Providers Care Framing Mechanic Name Role Phone Zaira Ramires DO Primary Care Provider Stephan rosa Reason for Visit * Reason Onset Date Comments MEDICATION REFILL 01/17/2017 Encounter Details Date Type Department Care Team (Late st Contact Info) Description 01/17/2017 Telephone [facility] - Family Medicine [address] [place], [place] [id number] Zaira Ramires, DO MEDICATION REFILL Social History Tobacco Use Types Packs/Day Years Used Date Smoking Tobacco: Former Cigarettes 1.5 25 0 12/07/1985 - 12/07/2010 Smokeless Tobacco: Never Alcohol Use Standard Drinks/Week Comments Yes 0 (1 standard drink = 0.6 oz pur e alcohol) social Sex and Gender Information Value Date Recorded Sex Assigned at Male 08/31/2020 7:44 AM ELECTROPLATING SALES REPRESENTATIVE Gender Identity Male 08/31/2020 7:44 AM ELECTROPLATING SALES REPRESENTATIVE Sexual Orientation Straight 08/31/2020 7: 44 AM ELECTROPLATING SALES REPRESENTATIVE documented as of this encounter [...] * Telephone Encounter - Puja Brennan - 01/17/2017 4:42 PM CDT Requested Prescriptions Signed Prescriptions Disp Refills ??? valsartan (DIOVAN) 160 MG tablet 10 Tab 0 Sig: Take 1 Tab by mouth once daily Authorizing Provider: ZAIRA RAMIRES Ordering User: PUJA BRENNAN patient has schedule apt for 01/22/17 documented in this encounter Plan of Treatment Not on file documented as of this encounter Goals Goal Patient Goal Type Associated Problems Recent Progress Patient-Stated? Author Blood Pressure < 140/90 Blood Pressure 172/93(2022 8:59 AM CDT) No Zachary Moreno documented as of this encounter Visit Diagnoses Not on filedocumented in this encounter Care Teams Framing Mechanic Relationship Specialty Start Date End Date Zaira Ramires DO PCP - General Family Medicine 09/03/13 02/27/23 documented as of this encounter
--- OUTSIDE RECORDS SUMMARY | 2024-09-06 20:28 | XMS_ITS | Encounter Summary ---
Author Organization [facility] Address [address] [place] [address] Care Team Providers Care Cylinder Tester Name Role Phone Alf Khan DO Primary Care Provider Stephan rosa Reason for Visit * Reason Onset Date Comments Refill Request 06/16/2019 Encounter Details Date Type Department Care Team (Late st Contact Info) Description 06/16/2019 Refill [facility] - Family Medicine [address] [place] [address] Alf Khan, DO Refill Request Social History Tobacco Use Types Packs/Day Years Used Date Smoking Tobacco: Every Day Cigarettes 1.5 25 Started: 12/07/1985; Last attempted to quit: 12/07/2010 Smokeless Tobacco: Never Alcohol Use Standard Drinks/Week Comments Yes 0 (1 standard drink = 0.6 oz pur e alcohol) social Sex and Gender Information Value Date Recorded Sex Assigned at Male 08/31/2020 7:44 AM NUMERICAL CONTROL NESTING OPERATOR Gender Identity Male 08/31/2020 7:44 AM NUMERICAL CONTROL NESTING OPERATOR Sexual Orientation Straight 08/31/2020 7: 44 AM NUMERICAL CONTROL NESTING OPERATOR documented as of this encounter Functional [...] Telephone Encounter - Juan Jose Smith - 06/17/2019 9:38 AM CDT Per [facility] pharmacy: group home manager date: 06/08/19 How much: only picked up 65 tablets / 120 tablets * Telephone Encounter - Alf Khan DO - 06/17/2019 9:26 AM CDT I can't just send controlled medicine out because the patient said he only got half of the prescription. We have to call the pharmacy and verify this in tell him not to do that again because that kills the script and this diff eats the purpose of me giving him 2 postdated prescriptions. I am not able to just send out pain pills in between visits because people get partial fills because we have todocument that that happened nobody notify me. In the future I do not generally send out replacementprescriptions * Telephone Encounter - Pierre Lipscomb - 06/16/2019 2:05 PM CDT Trenton Crockett is in need of His Requested Prescriptions Pending Prescriptions Disp Refills ??? HYDROcodone-acetaminophen (NORCO) 5-325 MG tablet 120 tablet 0 Sig: Take 1 tablet by mouth every 4 hours as needed for Pain Dx M50.30 Person calling for the refill: self Last office visit 04/23/19 Next Appointment scheduled: Visit date not found Last Refill for this medication 06/08/19 Patient states that he only received half the prescriptionfrom 06/08/19. Pharmacy was out of stock. Does patient have any new allergies since [...] on filedocumented in this encounter Care Teams Cylinder Tester Relationship Specialty Start Date End Date Alf Khan DO PCP - General Family Medicine 09/03/13 02/27/23 documented as of this encounter
--- OUTSIDE RECORDS SUMMARY | 2024-09-06 20:28 | XMS_ITS | Encounter Summary ---
Author Organization [facility] Address [address] [place] [address] Care Team Providers Care Gun Sealing Machine Operator Name Role Phone Alf Khan DO Primary Care Provider Stephan rosa Encounter Details Date Type Department Care Team (Latest Contact Info) Description 12/14/2019 Travel Social History Tobacco Use Types Packs/Day Years Used Date Smoking Tobacco: Every Day Cigarettes 1.5 25 Started: 12/07/1985; Last attempted to quit: 12/07/2010 Smokeless Tobacco: Never Alcohol Use Standard Drinks/Week Comments Yes 0 (1 standard drink = 0.6 oz pur e alcohol) social Sex and Gender Information Value Date Recorded Sex Assigned at Male 08/31/2020 7:44 AM LEGAL BILLING COORDINATOR Gender Identity Male 08/31/2020 7:44 AM LEGAL BILLING COORDINATOR Sexual Orientation Straight 08/31/2020 7: 44 AM LEGAL BILLING COORDINATOR COVID-19 Exposure Response Date Recorded In the [...] on filedocumented in this encounter Care Teams Gun Sealing Machine Operator Relationship Specialty Start Date End Date Alf Khan DO PCP - General Family Medicine 09/03/13 02/27/23 documented as of this encounter
--- OUTSIDE RECORDS SUMMARY | 2024-09-06 20:28 | XMS_ITS | Encounter Summary ---
Author Organization [facility] Address [address] [place] [address] Care Team Providers Care Silk Weaver Name Role Phone Alf Khan DO Primary Care Provider Stephan rosa Reason for Visit * Reason Onset Date Comments MEDICATION REFILL 02/14/2018 Encounter Details Date Type Department Care Team (Late st Contact Info) Description 02/14/2018 Refill [facility] - Family Medicine [address] [place] [address] Alf Khan, DO MEDICATION REFILL Social History Tobacco Use Types Packs/Day Years Used Date Smoking Tobacco: Former Cigarettes 1.5 25 0 12/07/1985 - 12/07/2010 Smokeless Tobacco: Never Alcohol Use Standard Drinks/Week Comments Yes 0 (1 standard drink = 0.6 oz pur e alcohol) social Sex and Gender Information Value Date Recorded Sex Assigned at Male 08/31/2020 7:44 AM REAL ESTATE AGENCY PRINCIPAL Gender Identity Male 08/31/2020 7:44 AM REAL ESTATE AGENCY PRINCIPAL Sexual Orientation Straight 08/31/2020 7: 44 AM REAL ESTATE AGENCY PRINCIPAL documented as of this encounter Functional Status [...] * Telephone Encounter - Lida Miles - 02/14/2018 2:19 PM CDT Called pt, left vm to call office to make an appt for norco refill. * Telephone Encounter - Alf Khan DO - 02/14/2018 2:06 PM CDT Any pain med Rx needs apt they are controlled Rx * Telephone Encounter - Harleen Carlos - 02/14/2018 1:48 PM CDT Requested Prescriptions Pending Prescriptions Disp Refills ??? HYDROcodone-acetaminophen (NORCO) 5-325 MG tablet 30 tablet Sig: Take 1 tablet by mouth every 4 hours as needed for Pain Last Refill: 11/19/17 Last OV: 11/19/17 Next OV: na documented in this encounter Plan of Treatment Not on file documented as of this encounter Goals Goal Patient Goal Type Associated Problems Recent Progress Patient-Stated? Author Blood Pressure < 140/90 Blood Pressure 172/93(2022 8:59 AM CDT) No Zachary Moreno documented as of this encounter Visit Diagnoses Not on filedocumented in this encounter Care Teams Silk Weaver Relationship Specialty Start Date End Date Alf Khan DO PCP - General Family Medicine 09/03/13 02/27/23 documented as of this encounter
--- OUTSIDE RECORDS SUMMARY | 2024-09-06 20:29 | XMS_ITS | Encounter Summary ---
Author Organization [facility] Address [address] [place] [address] Care Team Providers Care Control Integration Engineer Name Role Phone Alf Khan DO Primary Care Provider Stephan rosa Reason for Visit * Auth/Cert - Closed Specialty Diagnoses / Procedures Referred By Jean sosa Referred To Contact Diagnoses Abdominal pain Procedures COLONOSCOPY Referral ID Status Reason Start Date Expiration Date Visits Re quested Visits Authorized [id number] Closed 1 1 Encounter Details Date Type Department Care Team (Late st Contact Info) Description 04/15/2014 8:36 AM CDT Anesthesia Event [facility] [address] [place] [id number] Sofi Nicholson, DAMIEN-DROP HAMMER PILE DRIVER OPERATOR LICENSE Anesthesia Record Procedure Summary Procedure Name Responsible Anesthesiologist Anesthesia Start Time Anesthesia Stop Time COLONOSCOPY 04/15/14 0836 04/15/14 0850 Events Date Time Event Comment 04/15/2014 0836 0836 An Start 0837 Out OR Start Data 0837 PT Reassessment Patient and Vital Signs reassessed prior to induction. 0838 Elect Sign The providers l isted as staff are the responsible providers for the case. 0839 Elect Sign The providers l isted as staff are the responsible providers for the case. 0849 Out OR Stop Data 0850 An Stop Meds Name Total lidocaine (XYLOCAINE) 2% injection (20 m g/ml) 50 mg propofol (DIPRIVAN) injection 10mg/ml (E NDO USE) 20 mL * Agents Name O2 * Blood No blood administrations on file. Lines, Drains, and Airways Type Details Placement Removal Peripheral IV Date: 04/15/14; Time : 0744; Orientation: Right; Tolerance: Well 04/15/14 0744 by Jewell Cervantes RN 04/15/14 0936 by Gil Souza RN documented in this encounter Social History Tobacco Use Types Packs/Day Years Used Date Smoking Tobacco: Former Cigarettes 1.5 25 0 12/07/1985 - 12/07/2010 Smokeless Tobacco: Never Alcohol Use Standard Drinks/Week Comments Yes 0 (1 standard drink = 0.6 oz pur e alcohol) social Sex and Gender Information Value Date Recorded Sex Assigned at Male 08/31/2020 7:44 AM ELECTRONIC CONSOLE DISPLAY OPERATOR Gender Identity Male 08/31/2020 7:44 AM ELECTRONIC CONSOLE DISPLAY OPERATOR Sexual Orientation Straight 08/31/2020 7: 44 AM ELECTRONIC CONSOLE DISPLAY OPERATOR documented as of this encounter Functional [...] as of this encounter Progress Notes * Sofi Nicholson APRN-CRNA - 04/15/2014 8:50 AM CDT ANESTHESIA POSTPROCEDURE EVALUATION Trenton Crockett is a 48 y.o. male Temp: 36.8 ??C Pulse: 76 Resp: 18 BP: 111/65 mmHg SpO2: 96 % Pain Rating Score #: 0 Anesthesia Type: MAC Mental status: sufficiently recovered from acute administration of anesthesia to participate in theevaluation. Level of consciousness: awake No numbness, tingling or visual disturbances present. General appearance: well-appearing Respiratory function: natural airway. Cardiac: stable Pain: comfortable/acceptable PONV: None Postop hydration: adequate. Patient may be released from anesthesia care. A postop evaluation was performed on this patient with the following assessment: no apparent anesthesia complications documented in this encounter Consult Notes * Sofi Nicholson APRN-CRNA - 04/15/2014 8:33 AM CDT Pre-anesthesia Evaluation Procedure(s): COLONOSCOPY Vital Signs: Temp: 36.8 ??C (04/15 739) Pulse: 74 (04/15 831) Resp: 18 (04/15 831) BP: 140/84 mmHg (04/15 831) SpO2: 97 % (04/15 831) BMI: Estimated body mass index is 36.98 kg/(m^2) as calculated from the following: Height as of this encounter: 5' 10.98 (1.803 m). Weight as of this encounter: 265 lb (120.203 kg). History: Past Medical History Diagnosis Date ??? Unspecified essential hypertension ??? Pure hypercholesterolemia ??? Snoring no c-pap ??? Motion sickness ??? GERD (gastroesophageal reflux disease) controlled Past Surgical History Procedure Laterality Date ??? [place] tooth extraction ??? Hernia repair, ventral 06/03/2012 reports that he quit smoking about 3 years ago. He has never used smokeless tobacco. He reports that he drinks alcohol. He reports that he does not use illicit drugs. Allergies: is allergic to chandler inhibitors. Medications: Prescriptions prior to admission Medication Sig Dispense Refill ??? pravastatin (PRAVACHOL) 40 MG tablet Take 1 tablet by mouth at bedtime. 30 tablet 5 ??? valsartan (DIOVAN) 160 MG tablet Take 1 Tab by mouth once daily. 30 Tab 9 ??? albuterol HFA (PROAIR HFA) 108 (90 BASE) MCG/ACT inhaler Inhale 2 Puffs by mouth every 6 hours as needed. ??? hydrocodone-acetaminophen (NORCO) 7.5-325 MG tablet Take 1 Tab by mouth every 4 hours as neededfor Pain. 60 Tab 3 ??? omeprazole (PRILOSEC) 20 MG capsule Take 1 Cap by mouth once daily. 30 Cap 11 No current facility-administered medications on file prior to encounter. Current Outpatient Prescriptions on File Prior to Encounter Medication Sig Dispense Refill ??? valsartan (DIOVAN) 160 MG tablet Take 1 Tab by mouth once daily. 30 Tab 9 ??? albuterol HFA (PROAIR HFA) 108 (90 BASE) MCG/ACT inhaler Inhale 2 Puffs by mouth every 6 hours as needed. ??? hydrocodone-acetaminophen (NORCO) 7.5-325 MG tablet Take 1 Tab by mouth every 4 hours as neededfor Pain. 60 Tab 3 ??? omeprazole (PRILOSEC) 20 MG capsule Take 1 Cap by mouth once daily. 30 Cap 11 Physical Exam: NPO status: no solids since midnight Oriented to person, place and time Airway: I Neck ROM: full Dental exam findings: normal/ok Pulmonary exam: breath sounds CTA Heart sounds: S1 S2 Spinal Alignment: symmetrical Positive for gastroesophageal reflux disease, poorly controlled Plan for Anesthesia: ASA Score: 2. Anesthesia plan: MAC Planned method of induction: intravenous Planned postop destination: endo Anesthesia plan, risks and benefits discussed with patient Anesthesia consent: obtained Plan accepted yes documented in this encounter Plan of Treatment Not on file documented as of this encounter Visit Diagnoses Not on filedocumented in this encounter Administered Medications Inactive Administered Medications - up to 3 most recent administrations Medication Order MAR Action Action Date Dose Rate Site lidocaine (XYLOCAINE) 2 % injection PRN, Starting on Althea 04/15/14 at 0838, Until Althea 04/15/14 at 0850, Anesthesia Intra-op $ Given 04/15/2014 8:38 AM CDT 50 mg propofol (DIPRIVAN) injection CONTINUOUS PRN, Starting on Althea 04/15/14 at 0838, Until Althea 04/15/14 at 0850, Anesthesia Intra-op $ New Bag/Syringe 04/15/2014 8:38 AM CDT documented in this encounter Care Teams Control Integration Engineer Relationship Specialty Start Date End Date Alf Khan DO PCP - General Family Medicine 09/03/13 02/27/23 documented as of this encounter
--- OUTSIDE RECORDS SUMMARY | 2024-09-06 20:29 | XMS_ITS | Encounter Summary ---
Author Organization [facility] Address [address] [place] [address] Care Team Providers Care Snapper On Name Role Phone Alf Khan DO Primary Care Provider Stephan rosa Reason for Visit * Reason Comments Cough Patient is coughing now x 2 weeks has been taking mucinex and was taking the liquid form. Coughing up clear mucus now but the coughing not going away. Slightly swollen glands. slight sore throat due to coughing, no fever, no other symptoms. OTC meds mucinex tried but that's it. Patient does use a fan at night when he sleeps, thinks this could be contributing. Encounter Details Date Type Department Care Team (Late st Contact Info) Description 12/21/2013 2:15 PM CDT Office Visit [facility] - Family Medicine [address] [place] [address] Alf Khan DO Sinusitis, acute (Primary Dx); Seasonal allergies; HTN (hypertension), benign Social History Tobacco Use Types Packs/Day Years Used Date Smoking Tobacco: Former Cigarettes 1.5 25 0 12/07/1985 - 12/07/2010 Smokeless Tobacco: Never Tobacco Cessation:Counseling Given: Yes Alcohol Use Standard Drinks/Week Comments Yes 0 (1 standard drink = 0.6 oz pur e alcohol) Sex and Gender Information Value Date Recorded Sex Assigned at Male 08/31/2020 7:44 AM BRICK WASHER Gender Identity Male 08/31/2020 7:44 AM BRICK WASHER Sexual Orientation Straight 08/31/2020 7: 44 AM BRICK WASHER documented as of this encounter Last Filed Vital Signs Vital Sign Reading Time Taken Comments Blood Pressure 136/84 12/21/2013 2:40 PM CDT Pulse 100 12/21/2013 2:40 PM CDT Temperature - - Respiratory Rate - - Oxygen Saturation - - Inhaled Oxygen Concentration - - Weight 118.8 kg (262 lb) 12/21/2013 2:40 PM CDT Height 180.3 cm (5' 11 ) 12/21/2013 2:40 PM CDT Body Mass Index 36.54 12/21/2013 2:40 PM CDT documented in this encounter Progress Notes * Alf Khan, DO - 12/21/2013 3:16 PM CDT Office Visit, [place], [id number] HISTORY: SYDNEE Trenton Crockett is a 48 y.o. male patient, here for: Chief Complaint Patient presents with ??? Cough Patient is coughing now x 2 weeks has been taking mucinex and was taking the liquid form. Coughing up clear mucus now but the coughing not going away. Slightly swollen glands. slight sore throat due to coughing, no fever, no other symptoms. OTC meds mucinex tried but that's it. Patient does use a fan at night when he sleeps, thinks this could be contributing. HPI: saw Tadeo did not try sinus rinse and he felt it was in his chest and STis gone but still feelslike something in still in his throat and chest. No F,C no definite face pain, no sick contacts andtook wive's proair and amoxil from the dentist . No Hx of seasonal allergy but lots of eye Sx as well burning and crusting in eyes iraida. BP is fine and no Se from meds and no CP and SOB Patient Active Problem List Diagnosis Date Noted ??? BPH (benign prostatic hypertrophy) 06/10/2012 ??? Need for influenza vaccination 05/23/2011 ??? Hepatic steatosis 05/18/2011 ??? HTN (Hypertension), Benign 06/16/2009 ??? Hyperlipidemia 01/08/2009 ??? Arthritis 01/08/2009 Outpatient Prescriptions Prior to Visit Medication Sig Dispense Refill ??? pravastatin (PRAVACHOL) 40 MG tablet Take 1 Tab by mouth at bedtime. 30 Tab 2 ??? amoxicillin (AMOXIL) 500 MG capsule Take 500 mg by mouth every 8 hours. ??? hydrocodone-acetaminophen (NORCO) 7.5-325 MG tablet Take 1 Tab by mouth every 4 hours as neededfor Pain. 60 Tab 3 ??? valsartan (DIOVAN) 160 MG tablet Take 1 Tab by mouth once daily. 30 Tab 5 ??? omeprazole (PRILOSEC) 20 MG capsule Take 1 Cap by mouth once daily. 30 Cap 11 PFSH, other pertinent history: Allergies Allergen Reactions ??? Perry Inhibitors Cough Social History Smoking Status: Former Smoker Packs/Day: 1.5 Years: 25 Quit date: 12/07/2010 Smokeless Status: Never Used Alcohol Use: Yes Drug Use: No Sexual Activity: Not on file No family history on file. EXAM BP: 136/84 Pulse: 100 Wt: 118.842 kg (262 lb) BMI: 36.56 kg/m2 FiO2: General appearance - ill-appearing Eyes - pupils equal and reactive, extraocular eye movements intact, conjunctiva red irritated Ears - bilateral TM's and external ear canals normal Nose - mucosal congestion, clear rhinorrhea and purulent rhinorrhea Mouth - mucous membranes moist, pharynx normal without lesions Neck - bilateral symmetric anterior adenopathy Chest - clear to auscultation, no wheezes, rales or rhonchi, symmetric air entry Heart - normal rate, regular rhythm, normal S1, S2, no murmurs, rubs, clicks or gallops Neurological - alert, oriented, normal speech, no focal findings or movement disorder noted, DTR's normal and symmetric Extremities - peripheral pulses normal, no pedal edema, no clubbing or cyanosis Depression: PHQ-2:TOTAL POINT SCORE: 0 PHQ-9: ASSESSMENT: 1. Sinusitis, acute 2. Seasonal allergies PLAN: Orders Placed This Encounter ??? levofloxacin (LEVAQUIN) 500 MG tablet Sig: Take 1 Tab by mouth once daily. Dispense: 10 Tab Refill: 0 ??? predniSONE (DELTASONE) 10 MG tablet Si qd x 2 days, pc then 1 less pill every 2 days until gone Dispense: 20 Tab Refill: 0 Medications Discontinued During This Encounter Medication Reason ??? amoxicillin (AMOXIL) 500 MG capsule Current Outpatient Prescriptions Medication Sig Dispense Refill ??? albuterol HFA (PROAIR HFA) 108 (90 BASE) MCG/ACT inhaler Inhale 2 Puffs by mouth every 6 hours as needed. ??? levofloxacin (LEVAQUIN) 500 MG tablet Take 1 Tab by mouth once daily. 10 Tab 0 ??? predniSONE (DELTASONE) 10 MG tablet 4 qd x 2 days, pc then 1 less pill every 2 days until gone 20 Tab 0 ??? pravastatin (PRAVACHOL) 40 MG tablet Take 1 Tab by mouth at bedtime. 30 Tab 2 ??? hydrocodone-acetaminophen (NORCO) 7.5-325 MG tablet Take 1 Tab by mouth every 4 hours as neededfor Pain. 60 Tab 3 ??? valsartan (DIOVAN) 160 MG tablet Take 1 Tab by mouth once daily. 30 Tab 5 ??? omeprazole (PRILOSEC) 20 MG capsule Take 1 Cap by mouth once daily. 30 Cap 11 Return to office in 1 week prn. Patient instructed to call with any concerns or problems. documented in this encounter Plan of Treatment Not on file documented as of this encounter Visit Diagnoses Diagnosis Sinusitis, acute- Primary Acute sinusitis, unspecified Seasonal allergies Allergic rhinitis, cause unspecified HTN (hypertension), benign Essential hypertension, benign documented in this encounter Care Teams Snapper On Relationship Specialty Start Date End Date Alf Khan DO PCP - General Family Medicine 09/03/13 02/27/23 documented as of this encounter
--- OUTSIDE RECORDS SUMMARY | 2024-09-06 20:29 | XMS_ITS | Encounter Summary ---
Author Organization [facility] Address [address] [place] [address] Care Team Providers Care Staffing Analyst Name Role Phone Alf Khan DO Primary Care Provider Stephan rosa Reason for Visit * Reason Onset Date Comments Order 08/24/2015 Encounter Details Date Type Department Care Team (Late st Contact Info) Description 08/24/2015 Telephone [facility] - Family Medicine [address] [place] [address] Alf Khan, DO Order Social History Tobacco Use Types Packs/Day Years Used Date Smoking Tobacco: Former Cigarettes 1.5 25 0 12/07/1985 - 12/07/2010 Smokeless Tobacco: Never Alcohol Use Standard Drinks/Week Comments Yes 0 (1 standard drink = 0.6 oz pur e alcohol) social Sex and Gender Information Value Date Recorded Sex Assigned at Male 08/31/2020 7:44 AM PATIENT SERVICE ASSOCIATE Gender Identity Male 08/31/2020 7:44 AM PATIENT SERVICE ASSOCIATE Sexual Orientation Straight 08/31/2020 7: 44 AM PATIENT SERVICE ASSOCIATE documented as of this encounter Functional Status [...] Telephone Encounter - Alf Khan DO - 08/24/2015 9:50 AM CST Have to tell the pt it is the DOT that required him to get a sleep study This will have to suffice as all his ins will cover ENT SERVICE ASSOCIATE * Telephone Encounter - Umer Fulton - 08/24/2015 9:06 AM CST Lilliam brasher [facility] sleep center is calling stating that pt did not meet the requirements for a sleep study test but can have a home sleep study but it has to be ordered for pt. Order is pending please sign order. ENT SERVICE ASSOCIATE documented in this encounter Plan of Treatment Not on file documented as of this encounter Goals Goal Patient Goal Type Associated Problems Recent Progress Patient-Stated? Author Blood Pressure < 140/90 Blood Pressure 172/93(2022 8:59 AM CDT) Zachary Funez documented as of this encounter Visit Diagnoses Diagnosis Snoring- Primary Other dyspnea and respiratory abnormality documented in this encounter Care Teams Staffing Analyst Relationship Specialty Start Date End Date Alf Khan DO PCP - General Family Medicine 09/03/13 02/27/23 documented as of this encounter
--- OUTSIDE RECORDS SUMMARY | 2024-09-06 20:29 | XMS_ITS | Encounter Summary ---
Author Organization [facility] Address [address] [place] [address] Care Team Providers Care Honing Machine Operator Tool Name Role Phone Alf Khan DO Primary Care Provider Stephan rosa Encounter Details Date Type Department Care Team (Latest Contact Info) Description 01/28/2015 8:56 AM CDT - 01/28/2015 11:59 PM CDT Hospital Encounter [facility] [address] [place] [address] Alf Khan DO Discharge Disposition: Home or Self Care Social History Tobacco Use Types Packs/Day Years Used Date Smoking Tobacco: Former Cigarettes 1.5 25 0 12/07/1985 - 12/07/2010 Smokeless Tobacco: Never Alcohol Use Standard Drinks/Week Comments Yes 0 (1 standard drink = 0.6 oz pur e alcohol) social Sex and Gender Information Value Date Recorded Sex Assigned at Male 08/31/2020 7:44 AM VICE PRESIDENT BUSINESS DEVELOPMENT Gender Identity Male 08/31/2020 7:44 AM VICE PRESIDENT BUSINESS DEVELOPMENT Sexual Orientation Straight 08/31/2020 7: 44 AM VICE PRESIDENT BUSINESS DEVELOPMENT documented as of this encounter Functional Status [...] hours as needed Reported on 07/31/2016 05/12/2018 dicyclomine (BENTYL) 10 MG capsule Take 1 Cap by mouth 4 times daily as needed. 100 Cap 5 06/24/2014 01/22/2017 gabapentin (NEURONTIN) 600 MG tablet Take 0.5-1 Tabs by mouth 4 times daily. 90 Tab 5 11/01/2014 08/17/2015 hydrocodone-acetaminoph en (NORCO) 7.5-325 MG tablet Take 1 Tab by mouth every 4 hours as needed for Pain. 120 Tab 0 01/28/2015 08/17/2015 omeprazole (PRILOSEC) 20 MG capsuleIndications:GERD (gastroesophageal reflux disease) Take 1 Cap by mouth once daily. 30 Cap 11 06/24/2014 08/12/2015 pravastatin (PRAVACHOL) 40 MG tabletIndications:Hyper lipidemia Take 1 tablet by mouth at bedtime. 30 tablet 5 04/08/2014 04/08/2017 tamsulosin CR 24hr (FLOMAX) 0.4 MG capsuleIndications:BPH (benign prostatic hypertrophy) Take 1 Cap by mouth once daily. Take 30 minutes after a meal at the same time each day. 30 Cap 11 11/15/2014 01/22/2017 valsartan (DIOVAN) 160 MG tabletIndications:HTN (hypertension), benign Take 1 Tab by mouth once daily. 30 Tab 9 03/10/2014 03/02/2015 documented as of this encounter Progress Notes * Alexi Perez - 01/28/2015 4:55 PM CDTQuick Note: Patient aware of results and will follow with physical therapy. * Alf Khan DO - 01/28/2015 11:36 AM CDTQuick Note: Has loss of normal curve no acute disc Dx so if not better with PT in next 2-3 weeks next step is MRI c spine documented in this encounter Plan of Treatment Not on file documented as of this encounter Goals Goal Patient Goal Type Associated Problems Recent Progress Patient-Stated? Author Blood Pressure < 140/90 Blood Pressure 172/93(2022 8:59 AM CDT) No Zachary Moreno documented as of this encounter Procedures Procedure Name Priority Date/Time Associated Diagnosis Comments XR CERVICAL SPINE 4 OR 5VW Routine 01/28/2015 9:22 AM CDT Left cervical radiculopathy Neck pain documented in this encounter Results * XR CERVICAL SPINE MIN 4+ VW (01/28/2015 9:22 AM CDT) Anatomical Region Laterality Modality Spine Radiographic Nataliya [...] Alf Khan DO DIAGNOSTIC IMAGING O RDERABLES documented in this encounter Visit Diagnoses Diagnosis Left cervical radiculopathy Brachial neuritis or radiculitis nos Neck pain Cervicalgia documented in this encounter Care Teams Honing Machine Operator Tool Relationship Specialty Start Date End Date Alf Khan DO PCP - General Family Medicine 09/03/13 02/27/23 documented as of this encounter
--- OUTSIDE RECORDS SUMMARY | 2024-09-06 20:29 | XMS_ITS | Encounter Summary ---
Author Organization [facility] Address [address] [place] [address] Care Team Providers Care Television Program Director Name Role Phone Alf Khan DO Primary Care Provider Stephan rosa Reason for Visit * Reason Comments Sore Throat c/o sore throat for a couple of days Congestion c/o chest congestion with clear drainage for a couple of days MEDICATION REFILL Patient needs a refi ll on his cholesterol med Encounter Details Date Type Department Care Team (Late st Contact Info) Description 12/01/2013 9:00 AM CDT Office Visit [facility] - Family Medicine [address] [place] [address] Tadeo Agarwal, INTERNATIONAL TRAVEL CONSULTANT-NUCLEAR MEDICINE SPECIALIST [id number] [id number] URI (upper respiratory infection) (Primary Dx); Hyperlipidemia Social History Tobacco Use Types Packs/Day Years Used Date Smoking Tobacco: Former Cigarettes 1.5 25 0 12/07/1985 - 12/07/2010 Smokeless Tobacco: Never Alcohol Use Standard Drinks/Week Comments Yes 0 (1 standard drink = 0.6 oz pur e alcohol) Sex and Gender Information Value Date Recorded Sex Assigned at Male 08/31/2020 7:44 AM DIRECTOR SEARCH MARKETING STRATEGIES Gender Identity Male 08/31/2020 7:44 AM DIRECTOR SEARCH MARKETING STRATEGIES Sexual Orientation Straight 08/31/2020 7: 44 AM DIRECTOR SEARCH MARKETING STRATEGIES documented as of this encounter Last Filed Vital Signs Vital Sign Reading Time Taken Comments Blood Pressure 147/92 12/01/2013 9:01 AM CDT Pulse 81 12/01/2013 9:01 AM CDT Temperature 37 ??C (98.6 ??F) 12/01/2013 9:01 AM CDT Respiratory Rate - - Oxygen Saturation - - Inhaled Oxygen Concentration - - Weight 119.6 kg (263 lb 9.6 oz) 12/01/2013 9:01 AM CDT Height 180.3 cm (5' 11 ) 12/01/2013 9:01 AM CDT Body Mass Index 36.76 12/01/2013 9:01 AM CDT documented in this encounter Progress Notes * Tadeo Agarwal, DAMIEN-NUCLEAR MEDICINE SPECIALIST - 12/01/2013 9:12 AM CDT SUBJECTIVE: Trenton Crockett is a 48 y.o. male that is here today for : Chief Complaint Patient presents with ??? Sore Throat c/o sore throat for a couple of days ??? Congestion c/o chest congestion with clear drainage for a couple of days ??? MEDICATION REFILL Patient needs a refill on his cholesterol med HPI: Symptoms started yesterday. Throat scratchy and lymph nodes enlarged. Having sinus congestion.Coughing up some pink tinged phlegm, but mostly clear. Not running any fevers. Has no ill contacts that he is aware of. Has not tried anything OTC because he did not know what was safe to take with HTN. Here today because he would like to catch it early and keep it from getting any worse. Needs a refill on his cholesterol medication. Review of Systems -See HPI. Patient Active Problem List Diagnosis ??? Hyperlipidemia ??? Arthritis ??? HTN (Hypertension), Benign ??? Hepatic steatosis ??? Need for influenza vaccination ??? BPH (benign prostatic hypertrophy) Past Medical History Diagnosis Date ??? Unspecified essential hypertension ??? Pure hypercholesterolemia ??? Snoring no c-pap ??? Motion sickness ??? GERD (gastroesophageal reflux disease) controlled Past Surgical History Procedure Date ??? [place] tooth extraction ??? Hernia repair, ventral 06/03/2012 Outpatient Prescriptions Prior to Visit Medication Sig Dispense Refill ??? hydrocodone-acetaminophen (NORCO) 7.5-325 MG tablet Take 1 Tab by mouth every 4 hours as neededfor Pain. 60 Tab 3 ??? valsartan (DIOVAN) 160 MG tablet Take 1 Tab by mouth once daily. 30 Tab 5 ??? omeprazole (PRILOSEC) 20 MG capsule Take 1 Cap by mouth once daily. 30 Cap 11 ??? pravastatin (PRAVACHOL) 40 MG tablet Take 1 Tab by mouth at bedtime. 30 Tab 1 ??? tamsulosin CR 24hr (FLOMAX) 0.4 MG capsule Take 1 Cap by mouth once daily. Take 30 minutes after a meal at the same time each day. 30 Cap 11 ??? Docusate Sodium (DOC-Q-LACE PO) Take 100 mg by mouth once daily. Allergies Allergen Reactions ??? Perry Inhibitors Cough Screenings: Future Falls: Depression: PHQ-2:TOTAL POINT SCORE: 0 PHQ-9: Cognitive / Functional Status: OBJECTIVE: BP 147/92 Pulse 81 Temp 98.6 ??F (Oral) Wt 119.568 kg (263 lb 9.6 oz) BMI 36.78 kg/m2 Body mass index is 36.78 kg/(m^2). General appearance - Pt is alert and dressed appropriately. Mildly ill appearing, but in no acute distress. Mental status - Pt oriented x4 with appropriate speech and thought processes. Eyes - Bilateral eyes have mild conjunctivitis without any swelling, or drainage. Ears - Bilateral TMs intact and pearly dennis with positive light reflex and visible landmarks. Bilateral canals clear without redness, swelling, or drainage. Nose -Bilateral nares patent without mucosal congestion or erythema. Maxillary and frontal sinuses nontender to palpation. Mouth - MMM. Pharynx pink without erythema, lesions, exudates, or tonsillar hypertrophy. No cobblestoning or drainage visualized in posterior oropharynx. Lymphatics - No palpable lymphadenopathy present in anterior or posterior cervical chains or supraclavicular region bilaterally. Chest - clear to auscultation, no wheezes, rales or rhonchi, symmetric air entry Heart - normal rate, regular rhythm, normal S1, S2, no murmurs, rubs, clicks or gallops Skin - All visible areas of skin have normal coloration and good turgor. No visible rashes or suspicious lesions noted. No results found for this visit on 12/01/13. ASSESSMENT/PLAN: 1. URI (upper respiratory infection) 2. Hyperlipidemia pravastatin (PRAVACHOL) 40 MG tablet ~ Recommend symptomatic treatment. Mucinex-DM four cough and mucous. Ibuprofen 600 mg every 6 hrs PRN for h/a and throat pain. ~ Stay well hydrated and get plenty of rest. ~ Notify office if: symptoms persist beyond Saturday; he starts to feel better and then suddenly getsworse; or spikes a fever >102 F. Pt verbalized understanding of instructions and agrees with plan. Medications Discontinued During This Encounter Medication Reason ??? Docusate Sodium (DOC-Q-LACE PO) ??? tamsulosin CR 24hr (FLOMAX) 0.4 MG capsule ??? pravastatin (PRAVACHOL) 40 MG tablet Reorder Current Outpatient Prescriptions Medication Sig Dispense Refill ??? amoxicillin (AMOXIL) 500 MG capsule Take 500 mg by mouth every 8 hours. ??? pravastatin (PRAVACHOL) 40 MG tablet Take [...] mouth once daily. 30 Cap 11 Return if symptoms worsen or fail to improve. JULIA Hernandez documented in this encounter Plan of Treatment Not on file documented as of this encounter Visit Diagnoses Diagnosis URI (upper respiratory infection)- Primary Acute upper respiratory infections of unspecified site Hyperlipidemia Other and unspecified hyperlipidemia documented in this encounter Care Teams Television Program Director Relationship Specialty Start Date End Date Alf Khan DO PCP - General Family Medicine 09/03/13 02/27/23 documented as of this encounter
--- OUTSIDE RECORDS SUMMARY | 2024-09-06 20:29 | XMS_ITS | Encounter Summary ---
Author Organization [facility] Address [address] [place] [address] Care Team Providers Care Dry House Operator Name Role Phone Unavailable Primary Care Provider Unavailabl e Reason for Visit * Reason Comments Hypertension Patient is here for a recheck on his blood pressure and lipids. He did have lipids done 05/06, currently taking Pravastatin , denies any problems. Hyperlipidemia Encounter Details Date Type Department Care Team (Late st Contact Info) Description 12/13/2011 9:15 AM CDT Office Visit [facility] - Family Medicine [address] [place] [address] Jose Rust, [address] [place] [address] HTN (hypertension), benign (Primary Dx) Social History Tobacco Use Types Packs/Day Years Used Date Smoking Tobacco: Former Cigarettes Q uit: 12/07/2010 Smokeless Tobacco: Never Alcohol Use Standard Drinks/Week Comments Not Asked 0 (1 standard drink = 0.6 oz pur e alcohol) Sex and Gender Information Value Date Recorded Sex Assigned at Male 08/31/2020 7:44 AM SKIRT PANEL ASSEMBLER Gender Identity Male 08/31/2020 7:44 AM SKIRT PANEL ASSEMBLER Sexual Orientation Straight 08/31/2020 7: 44 AM SKIRT PANEL ASSEMBLER documented as of this encounter Last Filed Vital Signs Vital Sign Reading Time Taken Comments Blood Pressure 134/94 12/13/2011 9:28 AM CDT Pulse 78 12/13/2011 9:28 AM CDT Temperature - - Respiratory Rate - - Oxygen Saturation - - Inhaled Oxygen Concentration - - Weight 110.7 kg (244 lb) 12/13/2011 9:28 AM CDT Height 179.1 cm (5' 10.5 ) 12/13/2011 9:28 AM CD T Body Mass Index 34.52 12/13/2011 9:28 AM CDT documented in this encounter Progress Notes * Jose Rust DO - 12/13/2011 9:51 AM CDT SUBJECTIVE: Trenton Crockett is a 46 y.o. male is here today for : Chief Complaint Patient presents with ??? Hypertension Patient is here for a recheck on his blood pressure and lipids. He did have lipids done 05/06, currently taking Pravastatin , denies any problems. ??? Hyperlipidemia Outpatient Prescriptions Prior to Visit Medication Sig Dispense Refill ??? Amlodipine Besy-Benazepril HCl (LOTREL) 10-40 MG CAPS Take 1 Cap by mouth once daily. 30 Cap 2 ??? pravastatin (PRAVACHOL) 40 MG tablet Take 1 Tab by mouth at bedtime. 30 Tab 5 ??? omeprazole (PRILOSEC) 20 MG capsule Take 1 Cap by mouth once daily. 30 Cap 11 ??? Multiple Vitamin Essential TABS Take by mouth once daily. ??? fish oil/omega-3 fatty acids (FISH OIL) 1000 MG capsule Take 1,000 mg by mouth once daily. OBJECTIVE: BP 134/94 Pulse 78 Wt 244 lb (110.678 kg) BMI 34.52 kg/m2 General appearance - alert, well appearing, and in no distress, oriented to person, place, and timeand overweight Mental status - alert, oriented to person, place, and time, normal mood, behavior, speech, dress, motor activity, and thought processes Chest - clear to auscultation, no wheezes, rales or rhonchi, symmetric air entry Heart - normal rate, regular rhythm, normal S1, S2, no murmurs, rubs, clicks or gallops Extremities - peripheral pulses normal, no pedal edema, no clubbing or cyanosis ASSESSMENT/PLAN: 1. HTN (hypertension), benign hydrochlorothiazide (MICROZIDE) 12.5 MG capsule There are no discontinued medications. Current Outpatient Prescriptions Medication Sig Dispense Refill ??? hydrochlorothiazide (MICROZIDE) 12.5 MG capsule Take 1 Cap by mouth once daily. 30 Cap 2 ??? Amlodipine Besy-Benazepril HCl (LOTREL) 10-40 MG CAPS Take 1 Cap by mouth once daily. 30 Cap 2 ??? pravastatin (PRAVACHOL) 40 MG tablet Take 1 Tab by mouth at bedtime. 30 Tab 5 ??? omeprazole (PRILOSEC) 20 MG capsule Take 1 Cap by mouth once daily. 30 Cap 11 ??? Multiple Vitamin Essential TABS Take by mouth once daily. ??? fish oil/omega-3 fatty acids (FISH OIL) 1000 MG capsule Take 1,000 mg by mouth once daily. Limit/avoid salt in diet documented in this encounter Plan of Treatment Not on file documented as of this encounter Visit Diagnoses Diagnosis HTN (hypertension), benign- Primary Essential hypertension, benign documented in this encounter
--- OUTSIDE RECORDS SUMMARY | 2024-09-06 20:29 | XMS_ITS | Encounter Summary ---
Author Organization [facility] Health Address [address] [place] [address] Care Team Providers Care Head Rigger Name Role Phone Alf Khan DO Primary Care Provider Stephan rosa Encounter Details Date Type Department Care Team (Late st Contact Info) Description 11/05/2014 Orders Only [facility] - Family Medicine [address] [place] [address] Alf Khan DO Radicular pain in left arm Social History Tobacco Use Types Packs/Day Years Used Date Smoking Tobacco: Former Cigarettes 1.5 25 0 12/07/1985 - 12/07/2010 Smokeless Tobacco: Never Alcohol Use Standard Drinks/Week Comments Yes 0 (1 standard drink = 0.6 oz pur e alcohol) social Sex and Gender Information Value Date Recorded Sex Assigned at Male 08/31/2020 7:[address] Gender Identity Male 08/31/2020 7:[address] TESTER Sexual Orientation Straight 08/31/2020 7: [address] TESTER documented as of this encounter Functional [...] Author Blood Pressure < 140/90 Blood Pressure 172/93(07/21/ 2023 8:59 AM CDT) No Zachary Moreno documented as of this encounter Visit Diagnoses Diagnosis Radicular pain in left arm Neuralgia, neuritis, and radiculitis, unspecified documented in this encounter Care Teams Head Rigger Relationship Specialty Start Date End Date Alf Khan DO PCP - General Family Medicine 09/03/13 02/27/23 documented as of this encounter
--- OUTSIDE RECORDS SUMMARY | 2024-09-06 20:29 | XMS_ITS | Encounter Summary ---
Author Organization [facility] Health Address [address] [place] [address] Care Team Providers Care Liaison Inspection Laboratory Assistant Name Role Phone Unavailable Primary Care Provider Trang e Encounter Details Date Type Department Care Team (Late st Contact Info) Description 09/01/2013 Orders Only [facility] - Family Medicine [address] [place] [address] Jose Rust DO [address] [place] [address] Social History Tobacco Use Types Packs/Day Years Used Date Smoking Tobacco: Former Cigarettes 1.5 25 0 12/07/1985 - 12/07/2010 Smokeless Tobacco: Never Alcohol Use Standard Drinks/Week Comments Yes 0 (1 standard drink = 0.6 oz pur e alcohol) Sex and Gender Information Value Date Recorded Sex Assigned at Male 08/31/2020 7:44 AM CABIN AGENT Gender Identity Male 08/31/2020 7:44 AM CABIN AGENT Sexual Orientation Straight 08/31/2020 7: 44 AM CABIN AGENT documented as of this encounter Progress Notes * Jose Rust DO - 09/01/2013 8:54 PM CST Pravastatin refilled x 8 months Needs fasting lipids in March N AGENT documented in this encounter Plan of Treatment Not on file documented as of this encounter Visit Diagnoses Not on filedocumented in this encounter
--- OUTSIDE RECORDS SUMMARY | 2024-09-06 20:29 | XMS_ITS | Encounter Summary ---
Author Organization [facility] Address [address] [place] [address] Care Team Providers Care Rubber Cutting Machine Tender Name Role Phone Unavailable Primary Care Provider Unavailabl e Reason for Visit * Reason Onset Date Comments Results 12/22/2010 Encounter Details Date Type Department Care Team (Late st Contact Info) Description 12/22/2010 Telephone [facility] - Family Medicine [address] [place] [address] Liv Gaines MD Results Social History Tobacco Use Types Packs/Day Years Used Date Smoking Tobacco: Every Day Alcohol Use Standard Drinks/Week Comments Not Asked 0 (1 standard drink = 0.6 oz pur e alcohol) Sex and Gender Information Value Date Recorded Sex Assigned at Male 08/31/2020 7:44 AM CLEANER AND PREPARER Gender Identity Male 08/31/2020 7:44 AM CLEANER AND PREPARER Sexual Orientation Straight 08/31/2020 7: 44 AM CLEANER AND PREPARER documented as of this encounter Miscellaneous Notes * Telephone Encounter - Kanwal Coello - 12/22/2010 5:39 PM CDT Patient notified chest xray was normal. * Telephone Encounter - Angy Segovia MA - 12/22/2010 5:36 PM CDT Please make pt aware that his Xray was normal. * Telephone Encounter - Jessica Corrigan - 12/22/2010 2:38 PM CDT Pt called office requesting results from 12/22/2010 x-ray. Results available in chart review under imaging tab. Please advise. Allergies Allergen Reactions ??? Perry Inhibitors Cough Last OV: 12/22/2010 documented in this encounter Plan of Treatment Not on file documented as of this encounter Visit Diagnoses Not on filedocumented in this encounter
--- OUTSIDE RECORDS SUMMARY | 2024-09-06 20:29 | XMS_ITS | Encounter Summary ---
Author Organization [facility] Address [address] [place] [address] Care Team Providers Care Virtual Customer Assistant Name Role Phone Alf Khan DO Primary Care Provider Stephan rosa Reason for Visit * Reason Comments MEDICATION REFILL patient here today t o dicuss refill medicaton for pain medication Encounter Details Date Type Department Care Team (Latest Contact Info) Description 01/28/2015 8:45 AM CDT Office Visit [facility] - Family Medicine [address] [place] [address] Alf Khan DO Left cervical radiculopathy (Primary Dx); Neck pain; Hyperlipidemia; Glucose intolerance (impaired glucose tolerance) Social History Tobacco Use Types Packs/Day Years Used Date Smoking Tobacco: Former Cigarettes 1.5 25 0 12/07/1985 - 12/07/2010 Smokeless Tobacco: Never Alcohol Use Standard Drinks/Week Comments Yes 0 (1 standard drink = 0.6 oz pur e alcohol) social Sex and Gender Information Value Date Recorded Sex Assigned at Male 08/31/2020 7:44 AM APPOINTMENT COORDINATOR Gender Identity Male 08/31/2020 7:44 AM APPOINTMENT COORDINATOR Sexual Orientation Straight 08/31/2020 7: 44 AM APPOINTMENT COORDINATOR documented as of this encounter Last Filed Vital Signs Vital Sign Reading Time Taken Comments Blood Pressure 124/81 01/28/2015 8:24 AM CDT Pulse 72 01/28/2015 8:24 AM CDT Temperature - - Respiratory Rate - - Oxygen Saturation 94% 01/28/2015 8:24 AM CDT Inhaled Oxygen Concentration - - Weight 113.4 kg (250 lb) 01/28/2015 8:24 AM CDT Height 180.3 cm (5' 11 ) 01/28/2015 8:24 AM CDT Body Mass Index 34.87 01/28/2015 8:24 AM CDT documented in this encounter Functional [...] Patient Instructions * Patient Instructions* Puja Raymundo - 01/28/2015 8:24 AM CDT Caring for Your High Blood Pressure Medications ??? Keep a written list of what medicines you are taking and when you take them. Bring the list of your medicines or the pill bottles when you see your provider. Learn why you take each medicine. Askyour provider or pharmacist for information about your medicines. ??? Do not take xoiy-gui-dvxtaec medicine or herbal supplements without talking to [...] Where can I go for more information? [place] [employer] National Center: http://www.americanheart.org 1. In the top header, click ???Conditions?? . 2. In the top header, click ???high blood pressure.?? 3. For a printable blood pressure tracker, scroll toward the bottom of the page to Related Tools, and click ???HBP Trackers.?? 8-287-ZID-USA-1 or ( ) National Heart, Lung and Blood [place]: http://www.nhlbi.nih.gov/health/infoctr/index.htm documented in this encounter Progress Notes * Alf Khan, DO - 01/28/2015 8:36 AM CDT Office Visit, Established Patient, [id number] HISTORY: CC & HPI: Trenton Crockett is a 49 y.o. male established patient, here for: Chief Complaint Patient presents with ??? MEDICATION REFILL patient here today to [facility] medicaton for pain medication HPI: He still has back pain and arm numbness. He has been going to physical therapy but has not been in the last few weeks. He has tried traction at physical therapy and that has not seemed to help the numbness. He was told about a home traction device that he can buy and use while he is watching TV or playing his video games. He was told that he should probably get a neck and upper back xray to rule out nerve impingement, cervical disc disease, or bone spurs. Left arm numbness goes all the way down to his fingers and it occurs sometimes in waves. He thinks that the nerve is impinged at C6-C7 junction. needs labs re ck says he has Patient Active Problem List Diagnosis Date Noted [...] to Visit Medication Sig Dispense Refill ??? tamsulosin CR 24hr (FLOMAX) 0.4 MG capsule Take 1 Cap by mouth once daily. Take 30 minutes after a meal at the same time each day. 30 Cap 11 ??? gabapentin (NEURONTIN) 600 MG tablet Take 0.5-1 Tabs by mouth 4 times daily. 90 Tab 5 ??? dicyclomine (BENTYL) 10 MG capsule Take 1 Cap by mouth 4 times daily as needed. 100 Cap 5 ??? omeprazole (PRILOSEC) 20 MG capsule [...] mouth every 4 hours as neededfor Pain. 120 Tab 0 ??? valsartan (DIOVAN) 160 MG tablet Take 1 Tab by mouth once daily. 30 Tab 9 No facility-administered medications prior to visit. Review of Systems 10 point ROS was negative except items listed in C/C and Problem List PFSH, other pertinent history: Allergies Allergen Reactions ??? Perry Inhibitors Cough Social History Smoking Status: Former Smoker Packs/Day: 1.50 Years: 25 Quit date: 12/07/2010 Smokeless Status: Never Used Alcohol Use: Yes Comment: social Drug Use: No Sexual Activity: Not on file No family history on file. EXAM BP 124/81 mmHg Pulse 72 Wt 113.399 kg (250 lb) BMI 34.88 kg/m2 SpO2 94% FiO2: General appearance - alert, well appearing, [...] motion noted during exam, tenderness noted across small of back Neurological - alert, oriented, normal speech, no focal findings or movement disorder noted, cranial nerves II through XII intact, DTR's normal and symmetric, motor and sensory grossly normal bilaterally, normal muscle tone, no tremors, strength 5/5 Extremities - peripheral pulses normal, no pedal edema, no clubbing or cyanosis, no pedal edema noted MS-has full ROM left shoulder Has 2/5 MS left arm compared to 5/5 on right ASSESSMENT: ICD-9-CM 1. Left cervical radiculopathy 723.4 XR CERVICAL SPINE MIN 4+ VW AMB REFERRAL TO PHYSICAL THERAPY 2. Neck pain 723.1 XR CERVICAL SPINE MIN 4+ VW AMB REFERRAL TO PHYSICAL THERAPY 3. Hyperlipidemia 272.4 4. Glucose intolerance (impaired glucose tolerance) 790.22 PLAN: Orders Placed This Encounter ??? XR CERVICAL SPINE MIN 4+ VW Standing Status: Future Number of Occurrences: 1 Standing Expiration Date: 01/28/2016 Order Specific Question: Exam to be performed? Answer: Per Radiologist protocol ??? AMB REFERRAL TO PHYSICAL THERAPY Standing Status: Future Number of Occurrences: Standing Expiration Date: 01/28/2016 Referral Type: PT/OT/ST Referral Reason: Specialty Services Required Referral Location: [facility] PHYSICAL [facility]) Number of Visits Requested: 10 ??? hydrocodone-acetaminophen (NORCO) 7.5-325 MG tablet Sig: Take 1 Tab by mouth every 4 hours as needed for Pain. Dispense: 120 Tab Refill: 0 Medications Discontinued During This Encounter Medication Reason ??? hydrocodone-acetaminophen (NORCO) 7.5-325 MG tablet Reorder Current Outpatient Prescriptions Medication Sig Dispense Refill ??? hydrocodone-acetaminophen (NORCO) 7.5-325 MG tablet Take 1 Tab by mouth every 4 hours as neededfor Pain. 120 Tab 0 ??? tamsulosin CR 24hr (FLOMAX) 0.4 MG capsule Take 1 Cap by mouth once daily. Take 30 minutes after a meal at the same time each day. 30 Cap 11 ??? gabapentin (NEURONTIN) 600 MG tablet Take 0.5-1 Tabs by mouth 4 times daily. 90 Tab 5 ??? dicyclomine (BENTYL) 10 MG capsule Take 1 Cap by mouth 4 times daily as needed. 100 Cap 5 ??? omeprazole (PRILOSEC) 20 MG capsule Take 1 Cap by mouth once daily. 30 Cap 11 ??? pravastatin (PRAVACHOL) 40 MG tablet Take 1 tablet by mouth at bedtime. 30 tablet 5 ??? albuterol HFA (PROAIR HFA) 108 (90 BASE) MCG/ACT inhaler Inhale 2 Puffs by mouth every 6 hours as needed. ??? valsartan (DIOVAN) 160 MG tablet Take 1 Tab by mouth once daily. 30 Tab 9 No current facility-administered medications for this visit. Reassurance about neurontin and told him has to try in PM and see if make tired and increase on days off. He is taking it but not as directed told him to slowly increase it stressed again Safe use and storage of controlled meds [...] Zachary Moreno documented as of this encounter Results * XR CERVICAL SPINE [...] this encounter Visit Diagnoses Diagnosis Left cervical radiculopathy- Primary Brachial neuritis or radiculitis nos Neck pain Cervicalgia Hyperlipidemia Other and unspecified hyperlipidemia Glucose intolerance (impaired glucose tolerance) Impaired glucose tolerance test Left cervical radiculopathy Brachial neuritis or radiculitis nos Neck pain Cervicalgia documented in this encounter Care Teams Virtual Customer Assistant Relationship Specialty Start Date End Date Alf Khan DO PCP - General Family Medicine 09/03/13 02/27/23 documented as of this encounter
--- OUTSIDE RECORDS SUMMARY | 2024-09-06 20:29 | XMS_ITS | Encounter Summary ---
Author Organization [facility] Address [address] [place] [address] Care Team Providers Care Managing Principal Name Role Phone Unavailable Primary Care Provider Unavailabl e Reason for Visit * Reason Onset Date Comments MEDICATION REFILL 08/07/2011 Encounter Details Date Type Department Care Team (Late st Contact Info) Description 08/07/2011 Refill [facility] - Family Medicine [address] [place] [address] Jose Rust DO [address] [place] [address] MEDICATION REFILL Social History Tobacco Use Types Packs/Day Years Used Date Smoking Tobacco: Former Cigarettes Q uit: 12/07/2010 Smokeless Tobacco: Never Alcohol Use Standard Drinks/Week Comments Not Asked 0 (1 standard drink = 0.6 oz pur e alcohol) Sex and Gender Information Value Date Recorded Sex Assigned at Male 08/31/2020 7:44 AM TIRE SHOP MECHANIC Gender Identity Male 08/31/2020 7:44 AM TIRE SHOP MECHANIC Sexual Orientation Straight 08/31/2020 7: 44 AM TIRE SHOP MECHANIC documented as of this encounter Miscellaneous Notes * Telephone Encounter - Perla Martinez - 08/07/2011 5:05 PM CST Rx approved and sent to pharmacy SHOP MECHANIC * Telephone Encounter - Quynh Mart - 08/07/2011 3:06 PM CST Trenton Crockett Allergies Allergen Reactions ??? Perry Inhibitors Cough Requested Prescriptions Pending Prescriptions Disp Refills ??? omeprazole (PRILOSEC) 20 MG capsule 30 Cap Sig: Take 1 Cap by mouth once daily. Last Refill: 07/02/11 Last Office Visit: 05/23/11 SHOP MECHANIC documented in this encounter Plan of Treatment Not on file documented as of this encounter Visit Diagnoses Diagnosis GERD (gastroesophageal reflux disease)- Primary Esophageal reflux documented in this encounter
--- OUTSIDE RECORDS SUMMARY | 2024-09-06 20:29 | XMS_ITS | Encounter Summary ---
Author Organization [facility] Health Address [address] [place] [address] Care Team Providers Care Yarn Comber Name Role Phone Alf Khan DO Primary Care Provider Stephan rosa Pcp, Manuel Melgar Primary Care Provider Lori ailable Encounter Details Date Type Department Care Team (Late st Contact Info) Description 08/29/2015 [facility] Outpatient Visit [facility] Medical [facility] - Family Medicine [address] [place] [address] Alf Khan, Social History Tobacco Use Types Packs/Day Years Used Date Smoking Tobacco: Former Cigarettes 1.5 25 0 12/07/1985 - 12/07/2010 Smokeless Tobacco: Never Alcohol Use Standard Drinks/Week Comments Yes 0 (1 standard drink = 0.6 oz pur e alcohol) social Sex and Gender Information Value Date Recorded Sex Assigned at Male 08/31/2020 7:44 AM BRUSH CLEARER SURVEYING Gender Identity Male 08/31/2020 7:44 AM BRUSH CLEARER SURVEYING Sexual Orientation Straight 08/31/2020 7: 44 AM BRUSH CLEARER SURVEYING documented as of this encounter Functional Status [...] on filedocumented in this encounter Care Teams Yarn Comber Relationship Specialty Start Date End Date Alf Khan DO PCP - General Family Medicine 09/03/13 02/27/23 PcpManuel PCP - General 02/28/23 documented as of this encounter
--- OUTSIDE RECORDS SUMMARY | 2024-09-06 20:29 | XMS_ITS | Encounter Summary ---
Author Organization [facility] Address [address] [place] [address] Care Team Providers Care Civil Division Deputy Sheriff Name Role Phone Alf Khan DO Primary Care Provider Stephan rosa Encounter Details Date Type Department Care Team (Late st Contact Info) Description 04/08/2014 Orders Only [facility] Medical [facility] - Family Medicine [address] [place] [address] Alf Khan DO Hyperlipidemia Social History Tobacco Use Types Packs/Day Years Used Date Smoking Tobacco: Former Cigarettes 1.5 25 0 12/07/1985 - 12/07/2010 Smokeless Tobacco: Never Alcohol Use Standard Drinks/Week Comments Yes 0 (1 standard drink = 0.6 oz pur e alcohol) Sex and Gender Information Value Date Recorded Sex Assigned at Male 08/31/2020 7:44 AM PROOF COINS INSPECTOR Gender Identity Male 08/31/2020 7:44 AM PROOF COINS INSPECTOR Sexual Orientation Straight 08/31/2020 7: 44 AM PROOF COINS INSPECTOR documented as of this encounter Plan of Treatment Not on file documented as of this encounter Visit Diagnoses Diagnosis Hyperlipidemia Other and unspecified hyperlipidemia documented in this encounter Care Teams Civil Division Deputy Sheriff Relationship Specialty Start Date End Date Alf Khan DO PCP - General Family Medicine 09/03/13 02/27/23 documented as of this encounter
--- OUTSIDE RECORDS SUMMARY | 2024-09-06 20:29 | XMS_ITS | Encounter Summary ---
Author Organization [facility] Address [address] [place] [address] Care Team Providers Care Fowl Blood Tester Name Role Phone Unavailable Primary Care Provider Trang fox Encounter Details Date Type Department Care Team (Latest Contact Info) Description 12/22/2010 10:34 AM CDT - 12/22/2010 11:59 PM CDT Hospital Encounter [facility] Imaging Services - Radiology [address] [place] [id number] Discharge Disposition: Home or Self Care Social History Tobacco Use Types Packs/Day Years Used Date Smoking Tobacco: Every Day Alcohol Use Standard Drinks/Week Comments Not Asked 0 (1 standard drink = 0.6 oz pur e alcohol) Sex and Gender Information Value Date Recorded Sex Assigned at Male 08/31/2020 7:44 AM SOCIAL SERVICE COORDINATOR Gender Identity Male 08/31/2020 7:44 AM SOCIAL SERVICE COORDINATOR Sexual Orientation Straight 08/31/2020 7: 44 AM SOCIAL SERVICE COORDINATOR documented as of this encounter Medications at Time of Discharge Medication Sig Dispensed Refills Start Date End Date amlodipine-benazepril (LOTREL) 5-20 MG capsuleIndications:HTN (hypertension), benign Take 1 Cap by mouth daily. 30 Cap 2 12/22/2010 01/16/2011 amoxicillin-clavulanat e (AUGMENTIN) 875-125 MG tabletIndications:HTN (hypertension), benign Take 875 mg by mouth 2 times daily with breakfast and dinner. 05/09/2011 buPROPion SR 12hr (WELLBUTRIN SR) 150 MG tabletIndications:HTN (hypertension), benign Take 1 Tab by mouth 2 times daily. 60 Tab 2 12/22/2010 05/09/2011 codeine-guaifenesin (ROBITUSSIN-AC) 100-10 MG/5ML solutionIndications:Br onchitis Take 5 mL by mouth every 6 hours as needed for Cough. 200 mL 0 12/22/2010 05/09/2011 fluticasone propionate (FLONASE) 50 MCG/ACT nasal sprayIndications:Bronc hitis [place] 2 Sprays into each nostril daily. 1 g 6 12/22/2010 05/09/2011 simvastatin (ZOCOR) 20 MG tabletIndications:Hype rlipidemia Take 1 Tab by mouth daily. 30 5 03/30/2010 01/16/2011 VENTOLIN HFA 108 (90 BASE) MCG/ACT inhaler Inhale by mouth. 1-2 puffs q4h prn. Only substitute Proair if not covered by insurance 1 Inhaler 1 12/22/2010 05/09/2011 documented as of this encounter Progress Notes * Liv Gaines MD - 12/22/2010 10:38 PM CDTQuick Note: Chest xray is okay, notified by staff. documented in this encounter Plan of Treatment Not on file documented as of this encounter Procedures Procedure Name Priority Date/Time Associated Diagnosis Comments XR CHEST 2VW Routine 12/22/2010 11:11 AM CDT Bronchitis Tobacco abuse documented in this encounter Results * XR CHEST PA AND LATERAL (12/22/2010 11:11 AM CDT) Anatomical Region Laterality Modality Chest Radiographic Nataliya [...] Liv Gaines MD DIAGNOSTIC IMAGIN G ORDERABLES documented in this encounter Visit Diagnoses Diagnosis Bronchitis Bronchitis, not specified as acute or chronic Tobacco abuse Tobacco use disorder documented in this encounter
--- OUTSIDE RECORDS SUMMARY | 2024-09-06 20:29 | XMS_ITS | Encounter Summary ---
Author Organization [facility] Address [address] [place] [address] Care Team Providers Care Digester Cook Name Role Phone Unavailable Primary Care Provider Unavailabl e Reason for Visit * Reason Comments Hypertension Patient is here for a recheck on his blood pressure. Last labs done 06/06. Denies CP, SOB or swelling Prostate Problem Still has urinary fr equency, but it is much better with Flomax. He still has urgency at times. Rare nocturia. Hyperlipidemia No CP/SOB Encounter Details Date Type Department Care Team (Late st Contact Info) Description 04/10/2013 1:30 PM CDT Office Visit [facility] - Family Medicine [address] [place] [address] Jose Rust DO [address] [place] [address] HTN (hypertension), benign (Primary Dx); Hyperlipidemia; BPH (benign prostatic hypertrophy) Social History Tobacco Use Types Packs/Day Years Used Date Smoking Tobacco: Former Cigarettes 1.5 25 0 12/07/1985 - 12/07/2010 Smokeless Tobacco: Never Alcohol Use Standard Drinks/Week Comments Yes 0 (1 standard drink = 0.6 oz pur e alcohol) Sex and Gender Information Value Date Recorded Sex Assigned at Male 08/31/2020 7:44 AM HEALTH CARE LEGAL ASSISTANT Gender Identity Male 08/31/2020 7:44 AM HEALTH CARE LEGAL ASSISTANT Sexual Orientation Straight 08/31/2020 7: 44 AM HEALTH CARE LEGAL ASSISTANT documented as of this encounter Last Filed Vital Signs Vital Sign Reading Time Taken Comments Blood Pressure 136/90 04/10/2013 1:33 PM CDT Pulse 66 04/10/2013 1:33 PM CDT Temperature - - Respiratory Rate - - Oxygen Saturation - - Inhaled Oxygen Concentration - - Weight 115.2 kg (254 lb) 04/10/2013 1:33 PM CDT Height 180.3 cm (5' 11 ) 04/10/2013 1:33 PM CDT Body Mass Index 35.43 04/10/2013 1:33 PM CDT documented in this encounter Progress Notes * Joaquin Newman - 04/13/2013 12:08 PM CDTQuick Note: .Patient is aware. Hepatic function has been ordered in chart * Liv Klein - 04/13/2013 10:46 AM CDTQuick Note: Left a message on home/cell for patient to call office. RE: 04/10/13 lab results. * Jose Rust DO - 04/11/2013 7:01 AM CDTQuick Note: Blood tests are for the most part very good. This includes a normal PSA and overall favorable lipidprofile. However, the LDL chol portion is higher than optimal. I'd like to see you lower this with dietary restriction, and exercise. Limit chol intake to 200-300 mg/day, and retest in 1 year. You have a mild elevation of one [place]. Unsure why, and am not overly concerned. However, we should repeat this test in 2-4 weeks, and investigate further if it remains elevated. Hepatic function profile in 2-4 weeks, no appt. * Jose Rust DO - 04/10/2013 1:51 PM CDT Office Visit, Established Patient, [id number] HISTORY: (4+ elements or 3+ chronic) CC & HPI: Trenton Crockett is a 47 y.o. male established patient, here for: Chief Complaint Patient presents with ??? Hypertension Patient is here for a recheck on his blood pressure. Last labs done 06/06. Denies CP, SOB or swelling ??? Prostate Problem Still has urinary frequency, but it is much better with Flomax. He still has urgency at times. Rarenocturia. ??? Hyperlipidemia No CP/SOB Patient Active Problem List Diagnosis ??? Hyperlipidemia ??? Arthritis ??? HTN (Hypertension), Benign ??? Hepatic steatosis ??? Need for influenza vaccination ??? BPH (benign prostatic hypertrophy) Outpatient Prescriptions Prior to Visit Medication Status Sig Dispense Refill ??? pravastatin (PRAVACHOL) 40 MG tablet Active Take 1 Tab by mouth at bedtime. 30 Tab 10 ??? omeprazole (PRILOSEC) 20 MG capsule Active Take 1 Cap by mouth once daily. 30 Cap 11 ??? tamsulosin CR 24hr (FLOMAX) 0.4 MG capsule Active Take 1 Cap by mouth once daily. Take 30 minutes after a meal at the same time each day. 30 Cap 11 ??? valsartan (DIOVAN) 80 MG tablet Discontinued Take 1 Tab by mouth once daily. 30 Tab 2 ??? hydrochlorothiazide (MICROZIDE) 12.5 MG capsule Discontinued Take 1 Cap by mouth once daily. 30Cap 11 ??? Cholecalciferol (VITAMIN D) 1000 UNIT capsule Discontinued Take 1,000 Units by mouth once daily. ??? Multiple Vitamin Essential TABS Discontinued Take by mouth once daily. ??? fish oil/omega-3 fatty acids (FISH OIL) 1000 MG capsule Discontinued Take 1,000 mg by mouth once daily. Review of Systems (2 - 9) Pertinent ROS in included in the History portion of this note. PFSH, other pertinent history: (1 required) Allergies Allergen Reactions ??? Perry Inhibitors Cough Social History Smoking Status: Former Smoker Packs/Day: 1.5 Years: 25 Quit date: 12/07/2010 Smokeless Status: Never Used Alcohol Use: Yes Drug Use: No Sexual Activity: Not on file EXAM (a) single system: 12 elements from any single system exam OR b) multisystem: 12 elements from 2 ormore organ systems or at least 2 elements from each of 6 organ systems) BP: 136/90 Pulse: 66 Wt: 115.214 kg (254 lb) BMI: 35.43 kg/m2 FiO2: General appearance - alert, well appearing, and in no distress, oriented to person, place, and timeand overweight Mental status - normal mood, behavior, speech, dress, motor activity, and thought processes Eyes - pupils equal and reactive, extraocular eye movements intact, funduscopic exam normal, discs flat and sharp Ears - bilateral TM's and external ear canals normal Nose - normal and patent, no erythema, discharge or polyps Mouth - mucous membranes moist, pharynx normal without lesions Neck - supple, no significant adenopathy, thyroid exam: thyroid is normal in size without nodules or tenderness Chest - clear to auscultation, no wheezes, rales or rhonchi, symmetric air entry Heart - normal rate, regular rhythm, normal S1, S2, no murmurs, rubs, clicks or gallops Abdomen - soft, nontender, nondistended, no masses or organomegaly bowel sounds normal no abdominal bruits Male - no penile lesions or discharge, no testicular masses or tenderness, no hernias, PROSTATE EXAM: refused, patient is having rectal work done currently. RECTAL EXAM: declined by patient Extremities - peripheral pulses normal, no pedal edema, no clubbing or cyanosis ASSESSMENT: 1. HTN (hypertension), benign GENERAL HEALTH PANEL, URINALYSIS DIPSTICK AUTO, valsartan (DIOVAN) 160 MG tablet 2. Hyperlipidemia LIPID PROFILE W TCHOL/HDL (PO REF LAB) 3. BPH (benign prostatic hypertrophy) PROSTATE SPECIFIC ANTIGEN SCREEN PLAN: Orders Placed This Encounter ??? GENERAL HEALTH PANEL ??? LIPID PROFILE W TCHOL/HDL (PO REF LAB) ??? URINALYSIS DIPSTICK AUTO ??? PROSTATE SPECIFIC ANTIGEN SCREEN ??? valsartan (DIOVAN) 160 MG tablet Sig: Take 1 Tab by mouth once daily. Dispense: 30 Tab Refill: 2 Medications Discontinued During This Encounter Medication Reason ??? fish oil/omega-3 fatty acids (FISH OIL) 1000 MG capsule ??? Multiple Vitamin Essential TABS ??? Cholecalciferol (VITAMIN D) 1000 UNIT capsule ??? hydrochlorothiazide (MICROZIDE) 12.5 MG capsule ??? valsartan (DIOVAN) 80 MG tablet Reorder Current Outpatient Prescriptions Medication Status Sig Dispense Refill ??? Docusate Sodium (DOC-Q-LACE PO) Active Take 100 mg by mouth once daily. ??? valsartan (DIOVAN) 160 MG tablet Active Take 1 Tab by mouth once daily. 30 Tab 2 ??? pravastatin (PRAVACHOL) 40 MG tablet Active Take 1 Tab by mouth at bedtime. 30 Tab 10 ??? omeprazole (PRILOSEC) 20 MG capsule Active Take 1 Cap by mouth once daily. 30 Cap 11 ??? tamsulosin CR 24hr (FLOMAX) 0.4 MG capsule Active Take 1 Cap by mouth once daily. Take 30 minutes after a meal at the same time each day. 30 Cap 11 Return to office in 3 months. B/P. Patient instructed to call with any concerns or problems. Weight loss !!! documented in this encounter Plan of Treatment Not on file documented as of this encounter Procedures Procedure Name Priority Date/Time Associated Diagnosis Comments URINALYSIS NO MICROSCOPIC NO CULTURE Routine 04/10/2013 2:20 PM CDT HTN (hypertension), benign GENERAL HEALTH PANEL Routine 04/10/2013 2:16 PM CDT HTN (hypertension), benign LIPID PROFILE W TCHOL/HDL Routine 04/10/2013 2:16 PM CDT Hyperlipidemia PROSTATE SPECIFIC ANTIGEN SCREEN Routine 04/10/2013 2:16 PM CDT BPH (benign prostatic hypertrophy) documented in this encounter Results * URINALYSIS DIPSTICK AUTO (04/10/2013 2:20 PM CDT) Specific [place] UA 1.026 1.005 - 1.030 [facility] ACCOUNT BILL pH UA 6.0 5.0 - 7.5 [facility] ACCOUNT BILL Color UA Yellow Yellow [facility] ACCOUNT BILL Appearance Clear Clear [facility] ACCOUNT BILL Leukocyte UA Negative Negative [facility] ACCOUNT BILL Protein UA Trace Negative/Tra ce [facility] ACCOUNT BILL Glucose UA Negative Negative [facility] ACCOUNT BILL Glucose Reflex NOT NEEDED [facility] ACCOUNT BILL Comment:Ancillary determined the test is not needed Ketone UA Negative Negative [facility] ACCOUNT BILL Occult Blood Urine Negative Negative [facility] ACCOUNT BILL Bilirubin UA Negative Negative [facility] ACCOUNT BILL Urobilinogen 1.0 0.0 - 1.9 mg/dL [facility] ACCOUNT BILL Nitrite UA Negative Negative [facility] ACCOUNT BILL Microscopic Examination Urine [facility] ACCOUNT BILL Comment:Microscopic follows if indicated. Urine specimen (specimen) URINE SPECIMEN OBTAINED BY CLEAN CATCH PROCEDURE / Unknown 04/10/2013 2:20 PM CDT 04/10/2013 6:37 PM CDT Narrative Resulting Agency Comment [facility] [address] ??[facility] [phone] Jose Rust DO LAB - URINALYSIS ORD ERABLES [facility] ACCOUNT BILL * PROSTATE SPECIFIC ANTIGEN SCREEN (04/10/2013 2:16 PM CDT) PSA 1.6 0.0 - 4.0 ng/mL [facility] ACCOUNT BILL Comment: Brenda ECLIA methodology. ? . According to the [place] [employer], Serum PSA should decrease and [...] the presence or absence of malignant disease. Blood specimen (specimen) BLOOD SPECIMEN / Unknown 04/10/2013 2:16 PM CDT 04/10/2013 6:37 PM CDT Narrative Resulting Agency Comment [facility] [address] ??[facility] [phone] Jose Rust DO LAB - CHEMISTRY ORDE RABLES [facility] ACCOUNT BILL * (ABNORMAL) LIPID PROFILE W TCHOL/HDL (PO REF LAB) (04/10/2013 2:16 PM CDT) Cholesterol 182 100 - 199 mg/dL [facility] ACCOUNT BILL Triglycerides 157(H) 0 - 149 mg/dL [facility] ACCOUNT BILL HDL Cholesterol 45 >39 mg/dL [facility] ACCOUNT BILL Comment: According to ATP-III Guidelines, HDL-C >59 mg/dL is considered a negative risk factor for CHD. VLDL Calculated 31 5 - 40 mg/dL [facility] ACCOUNT BILL LDL Calculated 106(H) 0 - 99 mg/dL [facility] ACCOUNT BILL Comment NOT NEEDED [facility] ACCOUNT BILL Comment:Ancillary determined the test is not needed Cholesterol/HDL Ratio 4.0 0.0 - 5.0 ratio units [facility] ACCOUNT BILL BLOOD SPECIMEN / Unknown 04/10/2013 2:16 PM CDT 04/10/2013 6:37 PM CDT Narrative Resulting Agency Comment [facility] [address] ??[facility] [phone] Jose Rust DO LAB - CHEMISTRY LIZABETH WILEY [facility] ACCOUNT BILL * (ABNORMAL) GENERAL HEALTH PANEL (04/10/2013 2:16 PM CDT) Glucose 91 65 - 99 mg/dL [facility] [...] PM CDT Narrative Resulting Agency Comment [facility] [address] ??[facility] [phone] Jose Rust DO LAB - CHEMISTRY LIZABETH WILEY [facility] Organization Address City/State/ZIP Co de Phone Number [facility] ACCOUNT BILL documented in this encounter Visit Diagnoses Diagnosis HTN (hypertension), benign- Primary Essential hypertension, benign Hyperlipidemia Other and unspecified hyperlipidemia BPH (benign prostatic hypertrophy) Hypertrophy of prostate without urinary obstruction and other lower urinary tract symptoms (LUTS) documented in this encounter
--- OUTSIDE RECORDS SUMMARY | 2024-09-06 20:29 | XMS_ITS | Encounter Summary ---
Author Organization [facility] Address [address] [place] [address] Care Team Providers Care Director Of Coding Name Role Phone Alf Khan DO Primary Care Provider Stephan rosa Reason for Visit * Reason Comments Hypertension Follow-up F/u on HTN Check needing medication refills. Pain Lower Extremity Left foot pain on t he left side of this foot. Pain x 2 months now. no injury that he knows of but feels like a sprain, no brusing, no redness. Pain Back Lower back pain, sta eboni he thinks this is partly due to his recent weight gain. Discuss pain medication. has worse pain if kneels has some pains all the time burning and dull soreness ache. says had a MRI [place] 2008 and was told spinal stenosisi Referral podiatry referral if needed. Breathing Problem patient feels SOB at times, thinks this may be due to anxiety. Discuss need for anxiety medication. Encounter Details Date Type Department Care Team (Late st Contact Info) Description 09/03/2013 11:00 AM ENVIRONMENTAL HEALTH AIDE Office Visit [facility] - Family Medicine [address] [place] [address] Alf Khan DO Foot pain, left (Primary Dx); Hyperlipidemia; Arthritis; HTN (hypertension), benign; Obesity Social History Tobacco Use Types Packs/Day Years Used Date Smoking Tobacco: Former Cigarettes 1.5 25 0 12/07/1985 - 12/07/2010 Smokeless Tobacco: Never Alcohol Use Standard Drinks/Week Comments Yes 0 (1 standard drink = 0.6 oz pur e alcohol) Sex and Gender Information Value Date Recorded Sex Assigned at Male 08/31/2020 7:44 AM ENVIRONMENTAL HEALTH AIDE Gender Identity Male 08/31/2020 7:44 AM ENVIRONMENTAL HEALTH AIDE Sexual Orientation Straight 08/31/2020 7: 44 AM ENVIRONMENTAL HEALTH AIDE documented as of this encounter Last Filed Vital Signs Vital Sign Reading Time Taken Comments Blood Pressure 140/80 09/03/2013 11:42 AM ENVIRONMENTAL HEALTH AIDE Pulse 84 09/03/2013 11:21 AM ENVIRONMENTAL HEALTH AIDE Temperature - - Respiratory Rate - - Oxygen Saturation - - Inhaled Oxygen Concentration - - Weight 118.4 kg (261 lb) 09/03/2013 11:21 AM ENVIRONMENTAL HEALTH AIDE Height 180.3 cm (5' 11 ) 09/03/2013 11:21 AM ENVIRONMENTAL HEALTH AIDE Body Mass Index 36.4 09/03/2013 11:21 AM ENVIRONMENTAL HEALTH AIDE documented in this encounter Patient Instructions * Patient Instructions* Alf Khan DO - 09/03/2013 11:43 AM ENVIRONMENTAL HEALTH AIDE Get BP ck with staff in next 4-8 weeks RONMENTAL HEALTH AIDE documented in this encounter Progress Notes * Alf Khan DO - 09/03/2013 11:42 AM CST Office Visit, Established Patient, [id number] HISTORY: CC & HPI: Trenton Crockett is a 47 y.o. male established patient, here for: Chief Complaint Patient presents with ??? Hypertension Follow-up F/u on HTN Check needing medication refills. ??? Pain Lower Extremity Left foot pain on the left side of this foot. Pain x 2 months now. no injury that he knows of but feels like a sprain, no brusing, no redness. ??? Pain Back Lower back pain, states he thinks this is partly due to his recent weight gain. Discuss pain medication. has worse pain if kneels has some pains all the time burning and dull soreness ache. says had a MRI [place] 2008 and was told spinal stenosisi ??? Referral podiatry referral if needed. ??? Breathing Problem patient feels SOB at times, thinks this may be due to anxiety. Discuss need for anxiety medication. Patient Active Problem List Diagnosis Date Noted ??? BPH (benign prostatic hypertrophy) 06/10/2012 ??? Need for influenza vaccination 05/23/2011 ??? Hepatic steatosis 05/18/2011 ??? HTN (Hypertension), Benign 06/16/2009 ??? Hyperlipidemia 01/08/2009 ??? Arthritis 01/08/2009 Outpatient Prescriptions Prior to Visit Medication Status Sig Dispense Refill ??? pravastatin (PRAVACHOL) 40 MG tablet Active Take 1 Tab by mouth at bedtime. 30 Tab 1 ??? valsartan (DIOVAN) 160 MG tablet Active Take 1 Tab by mouth once daily. 30 Tab 5 ??? omeprazole (PRILOSEC) 20 MG capsule Active Take 1 Cap by mouth once daily. 30 Cap 11 ??? tamsulosin CR 24hr (FLOMAX) 0.4 MG capsule Active Take 1 Cap by mouth once daily. Take 30 minutes after a meal at the same time each day. 30 Cap 11 ??? Docusate Sodium (DOC-Q-LACE PO) Active Take 100 mg by mouth once daily. Review of Systems 10 point ROS was negative except items listed in C/C and Problem List PFSH, other pertinent history: Allergies Allergen Reactions ??? Perry Inhibitors Cough Social History Smoking Status: Former Smoker Packs/Day: 1.5 Years: 25 Quit date: 12/07/2010 Smokeless Status: Never Used Alcohol Use: Yes Drug Use: No Sexual Activity: Not on file No family history on file. EXAM BP: 140/80 Pulse: 84 Wt: 118.389 kg (261 lb) BMI: 36.40 kg/m2 FiO2: General appearance - alert, well [...] normal muscle tone, no tremors, strength 5/5 Musculoskeletal - abnormal exam of left foot pain along entire of foot Extremities - peripheral pulses normal, no pedal edema, no clubbing or cyanosis, no pedal edema noted ASSESSMENT: 1. Foot pain, left AMB REFERRAL TO PODIATRY 2. Hyperlipidemia 3. Arthritis 4. HTN (hypertension), benign 5. Obesity PLAN: Orders Placed This Encounter ??? AMB REFERRAL TO PODIATRY Standing Status: Future Number of Occurrences: Standing Expiration Date: 09/03/2014 Referral Type: Evaluate & Treat Referral Reason: Specialty Services Required Referred to Provider: Brooke Cruz DPM Number of Visits Requested: 1 ??? hydrocodone-acetaminophen (NORCO) 7.5-325 MG tablet Sig: Take 1 Tab by mouth every 4 hours as needed for Pain. Dispense: 60 Tab Refill: 3 There are no discontinued medications. Current Outpatient Prescriptions Medication Status Sig Dispense Refill ??? hydrocodone-acetaminophen (NORCO) 7.5-325 MG tablet Active Take 1 Tab by mouth every 4 hours asneeded for Pain. 60 Tab 3 ??? pravastatin (PRAVACHOL) 40 MG tablet Active Take 1 Tab by mouth at bedtime. 30 Tab 1 ??? valsartan (DIOVAN) 160 MG tablet Active Take 1 Tab by mouth once daily. 30 Tab 5 ??? omeprazole (PRILOSEC) 20 MG capsule Active Take 1 Cap by mouth once daily. 30 Cap 11 ??? tamsulosin CR 24hr (FLOMAX) 0.4 MG capsule Active Take 1 Cap by mouth once daily. Take 30 minutes after a meal at the same time each day. 30 Cap 11 ??? Docusate Sodium (DOC-Q-LACE PO) Active Take 100 mg by mouth once daily. BP Readings from Last 3 Encounters: 09/03/13 140/80 04/10/13 136/90 11/18/12 150/96 Get BP ck with staff in next 4-8 weeks Had MRI L spine aa few yrs back Multi factorial problems told to f/u in a few weeks if not better brought up anxiety as we walked down [place] told him could Rx with lexapro he said he would let me know Return to office in 6 months. Patient instructed to call with any concerns or problems. RONMENTAL HEALTH AIDE documented in this encounter Plan of Treatment Not on file documented as of this encounter Visit Diagnoses Diagnosis Foot pain, left- Primary Pain in limb Hyperlipidemia Other and unspecified hyperlipidemia Arthritis Arthropathy, unspecified, site unspecified HTN (hypertension), benign Essential hypertension, benign Obesity Obesity, unspecified documented in this encounter Care Teams Director Of Coding Relationship Specialty Start Date End Date Alf Khan DO PCP - General Family Medicine 09/03/13 02/27/23 documented as of this encounter
--- OUTSIDE RECORDS SUMMARY | 2024-09-06 20:29 | XMS_ITS | Encounter Summary ---
Author Organization [facility] Address [address] [place] [address] Care Team Providers Care Slate Roofer Name Role Phone Unavailable Primary Care Provider Unavailabl e Reason for Visit * Reason Comments Hematochezia Patient noticed bloo d in his stools yesterday and a couple days prior to that. History of hemorrhoids, but no recent straining, etc. Stools have been dark recently. Adenopathy Swollen glands R inocencio e of his neck. He states he had a cold and started taking some Amoxil he had from dental procedure. He hasn't taken in a couple days. Actually has discomfort in the R side of neck when he swallows. Hypertension Trouble taking the H CTZ d/t working outdoors, and not always having access to a toilet. Encounter Details Date Type Department Care Team (Late st Contact Info) Description 11/18/2012 11:15 AM CDT Office Visit [facility] - Family Medicine [address] [place] [address] Jose Rust DO [address] [place] [address] Rectal bleeding (Primary Dx); HTN (hypertension); Dysphagia Social History Tobacco Use Types Packs/Day Years Used Date Smoking Tobacco: Former Cigarettes 1.5 25 0 12/07/1985 - 12/07/2010 Smokeless Tobacco: Never Alcohol Use Standard Drinks/Week Comments Yes 0 (1 standard drink = 0.6 oz pur e alcohol) Sex and Gender Information Value Date Recorded Sex Assigned at Male 08/31/2020 7:44 AM FLOOR COVERING CONTRACTOR Gender Identity Male 08/31/2020 7:44 AM FLOOR COVERING CONTRACTOR Sexual Orientation Straight 08/31/2020 7: 44 AM FLOOR COVERING CONTRACTOR documented as of this encounter Last Filed Vital Signs Vital Sign Reading Time Taken Comments Blood Pressure 150/96 11/18/2012 11:35 AM CDT Pulse 82 11/18/2012 11:35 AM CDT Temperature 36.7 ??C (98.1 ??F) 11/18/2012 11:35 AM C DT Respiratory Rate - - Oxygen Saturation - - Inhaled Oxygen Concentration - - Weight 118.4 kg (261 lb) 11/18/2012 11:35 AM CDT Height 180.3 cm (5' 11 ) 11/18/2012 11:35 AM CDT Body Mass Index 36.4 11/18/2012 11:35 AM CDT documented in this encounter Progress Notes * Jose Rust, DO - 11/18/2012 12:04 PM CDT Office Visit, Established [place], [id number] HISTORY: (4+ elements or 3+ chronic) CC & HPI: Trenton Crockett is a 46 y.o. male established patient, here for: Chief Complaint Patient presents with ??? Hematochezia Patient noticed blood in his stools yesterday and a couple days prior to that. History of hemorrhoids, but no recent straining, etc. Stools have been dark recently. ??? Adenopathy Swollen glands R side of his neck. He states he had a cold and started taking some Amoxil he had from dental procedure. He hasn't taken in a couple days. Actually has discomfort in the R side of neckwhen he swallows. ??? Hypertension Trouble taking the HCTZ d/t working outdoors, and not always having access to a toilet. Patient Active Problem List Diagnosis ??? Hyperlipidemia ??? Arthritis ??? HTN (Hypertension), Benign ??? Hepatic steatosis ??? Need for influenza vaccination ??? BPH (benign prostatic hypertrophy) Outpatient Prescriptions Prior to Visit Medication Sig Dispense Refill ??? pravastatin (PRAVACHOL) 40 MG tablet Take 1 Tab by mouth at bedtime. 30 Tab 10 ??? hydrochlorothiazide (MICROZIDE) 12.5 MG capsule Take 1 Cap by mouth once daily. 30 Cap 11 ??? omeprazole (PRILOSEC) 20 MG capsule Take 1 Cap by mouth once daily. 30 Cap 11 ??? tamsulosin CR 24hr (FLOMAX) 0.4 MG capsule Take 1 Cap by mouth once daily. Take 30 minutes after a meal at the same time each day. 30 Cap 11 ??? Cholecalciferol (VITAMIN D) 1000 UNIT capsule Take 1,000 Units by mouth once daily. ??? Multiple Vitamin Essential TABS Take by mouth once daily. ??? fish oil/omega-3 fatty acids (FISH OIL) 1000 MG capsule Take 1,000 mg by mouth once daily. ??? solifenacin (VESICARE) 5 MG tablet Take 5 mg by mouth once daily. ??? Amlodipine Besy-Benazepril HCl (LOTREL) 10-40 MG CAPS Take 1 Cap by mouth once daily. 30 Cap 2 Review of Systems (2 - 9) Pertinent [...] from each of 6 organ systems) BP: 150/96 Pulse: 82 Temp(Src): 98.1 ??F (Oral) Wt: 261 lb (118.389 kg) BMI: 36.40 kg/m2 FiO2: General appearance - alert, well appearing, and in no distress, oriented to person, place, and timeand overweight Mental status - alert, oriented to person, place, and time, normal mood, behavior, speech, dress, motor activity, and thought processes Ears - bilateral TM's and external ear canals normal Nose - normal and patent, no erythema, discharge or polyps Mouth - mucous membranes moist, pharynx normal without lesions Neck - supple, no significant adenopathy Chest - clear to auscultation, no wheezes, rales or rhonchi, symmetric air entry Heart - normal rate, regular rhythm, normal S1, S2, no murmurs, rubs, clicks or gallops Abdomen - soft, nontender, nondistended, no masses or organomegaly bowel sounds normal Rectal - negative without mass, lesions or tenderness Extremities - peripheral pulses normal, no pedal edema, no clubbing or cyanosis ASSESSMENT: 1. Rectal bleeding COLORECTAL REF - FLAKO YAÑEZ 2. HTN (hypertension) losartan (COZAAR) 50 MG tablet 3. Dysphagia PLAN: Orders Placed This Encounter ??? COLORECTAL REF - FLAKO YAÑEZ Standing Status: Future Number of Occurrences: Standing Expiration Date: 11/18/2013 Referral Type: Evaluate & Treat Referral Reason: Specialty Services Required Referred to Provider: Flako Yañez DO Number of Visits Requested: 1 ??? losartan (COZAAR) 50 MG tablet Sig: Take 1 Tab by mouth once daily. Dispense: 30 Tab Refill: 2 Medications Discontinued During This Encounter Medication Reason ??? solifenacin (VESICARE) 5 MG tablet ??? Amlodipine Besy-Benazepril HCl (LOTREL) 10-40 MG CAPS Current Outpatient Prescriptions Medication Sig Dispense Refill ??? losartan (COZAAR) 50 MG tablet Take 1 Tab by mouth once daily. 30 Tab 2 ??? pravastatin (PRAVACHOL) 40 MG tablet Take 1 Tab by mouth at bedtime. 30 Tab 10 ??? hydrochlorothiazide (MICROZIDE) 12.5 MG capsule Take 1 Cap by mouth once daily. 30 Cap 11 ??? omeprazole (PRILOSEC) 20 MG capsule Take 1 Cap by mouth once daily. 30 Cap 11 ??? tamsulosin CR 24hr (FLOMAX) 0.4 MG capsule Take 1 Cap by mouth once daily. Take 30 minutes after a meal at the same time each day. 30 Cap 11 ??? Cholecalciferol (VITAMIN D) 1000 UNIT capsule Take 1,000 Units by mouth once daily. ??? Multiple Vitamin Essential TABS Take by mouth once daily. ??? fish oil/omega-3 fatty acids (FISH OIL) 1000 MG capsule Take 1,000 mg by mouth once daily. Return to office in 3 months. Patient instructed to call with any concerns or problems. Spent a lot of time assuring the patient colon CA is very unlikely. He remains concerned about same. EGD/Colonoscopy next?? documented in this encounter Plan of Treatment Not on file documented as of this encounter Visit Diagnoses Diagnosis Rectal bleeding- Primary Hemorrhage of rectum and anus HTN (hypertension) Unspecified essential hypertension Dysphagia Dysphagia, unspecified documented in this encounter
--- OUTSIDE RECORDS SUMMARY | 2024-09-06 20:29 | XMS_ITS | Encounter Summary ---
Author Organization [facility] Address [address] [place] [address] Care Team Providers Care Dry Sander Name Role Phone Unavailable Primary Care Provider Unavailabl e Reason for Visit * Reason Comments Hernia Patient c/o possible umbilical hernia, noticed his belly button was protruding about six weeks ago. He had to go out of town for work right after he noticed same. Slight abd discomfort Encounter Details Date Type Department Care Team (Late st Contact Info) Description 02/12/2012 4:00 PM CDT Office Visit [facility] - Family Medicine [address] [place] [address] Jose Rust, [address] [place] [address] Umbilical hernia (Primary Dx) Social History Tobacco Use Types Packs/Day Years Used Date Smoking Tobacco: Former Cigarettes Q uit: 12/07/2010 Smokeless Tobacco: Never Alcohol Use Standard Drinks/Week Comments Not Asked 0 (1 standard drink = 0.6 oz pur e alcohol) Sex and Gender Information Value Date Recorded Sex Assigned at Male 08/31/2020 7:44 AM CHEMIST WATER PURIFICATION Gender Identity Male 08/31/2020 7:44 AM CHEMIST WATER PURIFICATION Sexual Orientation Straight 08/31/2020 7: 44 AM CHEMIST WATER PURIFICATION documented as of this encounter Last Filed Vital Signs Vital Sign Reading Time Taken Comments Blood Pressure 136/78 02/12/2012 4:10 PM CDT Pulse 84 02/12/2012 4:10 PM CDT Temperature - - Respiratory Rate - - Oxygen Saturation - - Inhaled Oxygen Concentration - - Weight 114.3 kg (252 lb) 02/12/2012 4:10 PM CDT Height 179.1 cm (5' 10.5 ) 02/12/2012 4:10 PM CD T Body Mass Index 35.65 02/12/2012 4:10 PM CDT documented in this encounter Progress Notes * Aria Brannon - 02/13/2012 9:13 AM CDT Pt scheduled with Dr. Yañez on 02/18/2012 at 10:15AM. Pt aware of all instructions. * Jose Rust DO - 02/12/2012 4:35 PM CDT SUBJECTIVE: Trenton Crockett is a 46 y.o. male is here today for : Chief Complaint Patient presents with ??? Hernia Patient c/o possible umbilical hernia, noticed his belly button was protruding about six weeks ago.He had to go out of town for work right after he noticed same. Slight abd discomfort Outpatient Prescriptions Prior to Visit Medication Sig Dispense Refill ??? Amlodipine Besy-Benazepril HCl (LOTREL) 10-40 MG CAPS Take 1 Cap by mouth once daily. 30 Cap 0 ??? hydrochlorothiazide (MICROZIDE) 12.5 MG capsule Take 1 Cap by mouth once daily. 30 Cap 2 ??? pravastatin (PRAVACHOL) 40 MG tablet Take 1 Tab by mouth at bedtime. 30 Tab 5 ??? omeprazole (PRILOSEC) 20 MG capsule Take 1 Cap by mouth once daily. 30 Cap 11 ??? fish oil/omega-3 fatty acids (FISH OIL) 1000 MG capsule Take 1,000 mg by mouth once daily. ??? Multiple Vitamin Essential TABS Take by mouth once daily. OBJECTIVE: BP 136/78 Pulse 84 Wt 252 lb (114.306 kg) BMI 35.65 kg/m2 General appearance - alert, well appearing, [...] no masses or organomegaly bowel sounds normal HERNIA EXAM: umbilical hernia - reducible, but tender ASSESSMENT/PLAN: 1. Umbilical hernia There are no discontinued medications. Current Outpatient Prescriptions Medication Sig Dispense Refill ??? Amlodipine Besy-Benazepril HCl (LOTREL) 10-40 MG CAPS Take 1 Cap by mouth once daily. 30 Cap 0 ??? hydrochlorothiazide (MICROZIDE) 12.5 MG capsule Take 1 Cap by mouth once daily. 30 Cap 2 ??? pravastatin (PRAVACHOL) 40 MG tablet Take 1 Tab by mouth at bedtime. 30 Tab 5 ??? omeprazole (PRILOSEC) 20 MG capsule Take 1 Cap by mouth once daily. 30 Cap 11 ??? fish oil/omega-3 fatty acids (FISH OIL) 1000 MG capsule Take 1,000 mg by mouth once daily. ??? Multiple Vitamin Essential TABS Take by mouth once daily. documented in this encounter Plan of Treatment Not on file documented as of this encounter Visit Diagnoses Diagnosis Umbilical hernia- Primary Umbilical hernia without mention of obstruction or gangrene documented in this encounter
--- OUTSIDE RECORDS SUMMARY | 2024-09-06 20:29 | XMS_ITS | Encounter Summary ---
Author Organization [facility] Address [address] [place] [address] Care Team Providers Care International Logistics Analyst Name Role Phone Unavailable Primary Care Provider Unavailabl e Reason for Visit * Reason Onset Date Comments Medication Problem 12/22/2010 Encounter Details Date Type Department Care Team (Late st Contact Info) Description 12/22/2010 Telephone [facility] - Family Medicine [address] [place] [address] Liv Gaines MD Medication Problem Social History Tobacco Use Types Packs/Day Years Used Date Smoking Tobacco: Every Day Alcohol Use Standard Drinks/Week Comments Not Asked 0 (1 standard drink = 0.6 oz pur e alcohol) Sex and Gender Information Value Date Recorded Sex Assigned at Male 08/31/2020 7:44 AM POWERHOUSE TENDER Gender Identity Male 08/31/2020 7:44 AM POWERHOUSE TENDER Sexual Orientation Straight 08/31/2020 7: 44 AM POWERHOUSE TENDER documented as of this encounter Miscellaneous Notes * Telephone Encounter - [facility] - 12/22/2010 11:06 AM CDT Wendy called office stating that they do not have any Proventil Inhalers in store and this medication is too expensive for pt. Wendy is wanting to know if you would like to change medication to Proair? Please advise. Allergies Allergen Reactions ??? Perry Inhibitors Cough Last Ov- 12/22/10 documented in this encounter Plan of Treatment Not on file documented as of this encounter Visit Diagnoses Not on filedocumented in this encounter
--- OUTSIDE RECORDS SUMMARY | 2024-09-06 20:29 | XMS_ITS | Encounter Summary ---
Author Organization [facility] Address [address] [place] [address] Care Team Providers Care Brush Holder Inspector Name Role Phone Unavailable Primary Care Provider Unavailabl e Reason for Referral * - Closed Specialty Diagnoses / Procedures Referred By Jean sosa Referred To Contact Diagnoses Urinary frequency Jose Rust DO [address] [place] [address] Malick Osman MD [address] [address] Referral ID Status Reason Start Date Expiration Date Visits Re quested Visits Authorized [id number] Closed 09/04/2011 03/02/2012 1 1 DIE MAKER Reason for Visit * Reason Comments Hypertension Patient is here for a recheck on his blood pressure and liver nz's. He has decreased his alcohol intake and trying to watch fatty foods. He is trying to lose weight however has gained 5 lbs. He denies any CP, swelling or shortness of breath. Pain Back He c/o low back disc omfort, denies specific injury. He has tried Advil and Aleve, Denies any discomfort or tingling down his legs. Pain Knee Bilateral knee disco mfort, worsened over the last one year, denies accident or injury. Encounter Details Date Type Department Care Team (Late st Contact Info) Description 09/04/2011 8:30 AM TRIM DIE MAKER Office Visit [facility] - Family Medicine [address] [place] [address] Jose Rust DO [address] [place] [address] HTN (hypertension), benign (Primary Dx); Hyperlipidemia; Urinary frequency; Low back pain; Knee pain, bilateral Social History Tobacco Use Types Packs/Day Years Used Date Smoking Tobacco: Former Cigarettes Q uit: 12/07/2010 Smokeless Tobacco: Never Alcohol Use Standard Drinks/Week Comments Not Asked 0 (1 standard drink = 0.6 oz pur e alcohol) Sex and Gender Information Value Date Recorded Sex Assigned at Male 08/31/2020 7:44 AM TRIM DIE MAKER Gender Identity Male 08/31/2020 7:44 AM TRIM DIE MAKER Sexual Orientation Straight 08/31/2020 7: 44 AM TRIM DIE MAKER documented as of this encounter Last Filed Vital Signs Vital Sign Reading Time Taken Comments Blood Pressure 162/96 09/04/2011 8:37 AM TRIM DIE MAKER Pulse 82 09/04/2011 8:37 AM TRIM DIE MAKER Temperature - - Respiratory Rate - - Oxygen Saturation - - Inhaled Oxygen Concentration - - Weight 113.4 kg (250 lb) 09/04/2011 8:37 AM TRIM DIE MAKER Height 179.1 cm (5' 10.5 ) 09/04/2011 8:37 AM CS T Body Mass Index 35.36 09/04/2011 8:37 AM TRIM DIE MAKER documented in this encounter Progress Notes * Jose Rust, - 09/04/2011 9:05 AM CST Office Visit, Established Patient, [id number] HISTORY: (4+ elements or 3+ chronic) CC & HPI: Trenton Crockett is a 45 y.o. male established patient, here for: Chief Complaint Patient presents with ??? Hypertension Patient is here for a recheck on his blood pressure and liver nz's. He has decreased his alcohol intake and trying to watch fatty foods. He is trying to lose weight however has gained 5 lbs. He denies any CP, swelling or shortness of breath. ??? Pain Back He c/o low back discomfort, denies specific injury. He has tried Advil and Aleve, Denies any discomfort or tingling down his legs. ??? Pain Knee Bilateral knee discomfort, worsened over the last one year, denies accident or injury. Patient Active Problem List Diagnoses ??? Hyperlipidemia ??? Arthritis ??? HTN (Hypertension), Benign ??? Hepatic steatosis ??? Need for influenza vaccination Outpatient Prescriptions Prior to Visit Medication Sig Dispense Refill ??? Multiple Vitamin Essential TABS Take by mouth once daily. ??? fish oil/omega-3 fatty acids (FISH OIL) 1000 MG capsule Take 1,000 mg by mouth once daily. ??? omeprazole (PRILOSEC) 20 MG capsule Take 1 Cap by mouth once daily. 30 Cap 11 ??? amlodipine-benazepril (LOTREL) 5-20 MG capsule Take 1 Cap by mouth once daily. 30 Cap 1 ??? doxazosin (CARDURA) 4 MG tablet Take 1 Tab by mouth at bedtime. 30 Tab 1 ??? simvastatin (ZOCOR) 20 MG tablet Take 1 Tab by mouth once daily. 30 Tab 5 Review of Systems (2 - 9) Pertinent ROS in included in the History portion of this note. PFSH, other pertinent history: (1 required) Allergies Allergen Reactions ??? Perry Inhibitors Cough Social History Smoking Status: Former Smoker Packs/Day: Years: Quit date: 12/07/2010 Smokeless Status: Never Used Alcohol Use: Not on file Drug Use: Not on file Sexual Activity: Not on file EXAM (a) single system: 12 elements from any single system exam OR b) multisystem: 12 elements from 2 ormore organ systems or at least 2 elements from each of 6 organ systems) BP: 162/96 Pulse: 82 Wt: 250 lb (113.399 kg) BMI: 35.36 kg/m2 FiO2: General appearance - alert, well [...] mucous membranes moist, pharynx normal without lesions Chest - rales noted bibasilar Heart - normal rate, regular rhythm, normal S1, S2, no murmurs, rubs, clicks or gallops Abdomen - soft, nontender, nondistended, no masses or organomegaly bowel sounds normal no abdominal bruits Back exam - limited range of motion, pain with motion noted during exam, negative straight-leg raise bilaterally 90 Neurological - alert, oriented, normal speech, no focal findings or movement disorder noted, screening mental status exam normal, neck supple without rigidity, cranial nerves II through XII intact, DTR's normal and symmetric, motor and sensory grossly normal bilaterally Extremities - peripheral pulses normal, no pedal edema, no clubbing or cyanosis. FROM both knees. No ligamentous laxity, no effusion. ASSESSMENT: 1. HTN (hypertension), benign amlodipine-benazepril (LOTREL) 5-20 MG capsule 2. Hyperlipidemia pravastatin (PRAVACHOL) 40 MG tablet 3. Urinary frequency AMB REFERRAL TO UROLOGY 4. Low back pain XR LUMBAR SPINE 4+ VW 5. Knee pain, bilateral XR KNEE 3 VW RIGHT, XR KNEE 3 VW LEFT PLAN: Orders Placed This Encounter ??? XR LUMBAR SPINE 4+ VW Standing Status: Future Number of Occurrences: Standing Expiration Date: 09/04/2012 Order Specific Question: Exam to be performed? Answer: Per Radiologist protocol ??? XR KNEE 3 VW RIGHT Standing Status: Future Number of Occurrences: Standing Expiration Date: 09/04/2012 Order Specific Question: Exam to be performed? Answer: Per Radiologist protocol ??? XR KNEE 3 VW LEFT Standing Status: Future Number of Occurrences: Standing Expiration Date: 09/04/2012 Order Specific Question: Exam to be performed? Answer: Per Radiologist protocol ??? AMB REFERRAL TO UROLOGY Referred to Provider: Malick Osman MD Number of Visits Requested: 1 ??? amlodipine-benazepril (LOTREL) 5-20 MG capsule Sig: Take 1 Cap by mouth 2 times daily. Dispense: 60 Cap Refill: 2 ??? pravastatin (PRAVACHOL) 40 MG tablet Sig: Take 1 Tab by mouth at bedtime. Dispense: 30 Tab Refill: 5 Medications Discontinued During This Encounter Medication Reason ??? doxazosin (CARDURA) 4 MG tablet Discontinued today ??? simvastatin (ZOCOR) 20 MG tablet Discontinued today ??? amlodipine-benazepril (LOTREL) 5-20 MG capsule Reorder Current Outpatient Prescriptions Medication Sig Dispense Refill ??? amlodipine-benazepril (LOTREL) 5-20 MG capsule Take 1 Cap by mouth 2 times daily. 60 Cap 2 ??? pravastatin (PRAVACHOL) 40 MG tablet Take 1 Tab by mouth at bedtime. 30 Tab 5 ??? Multiple Vitamin Essential TABS Take by mouth once daily. ??? fish oil/omega-3 fatty acids (FISH OIL) 1000 MG capsule Take 1,000 mg by mouth once daily. ??? omeprazole (PRILOSEC) 20 MG capsule Take 1 Cap by mouth once daily. 30 Cap 11 Return to office in 3 months. Patient instructed to call with any concerns or problems. Manipulation to the dorsal spine, lumbar spine with good results. DIE MAKER documented in this encounter Plan of Treatment Scheduled Referrals Name Type Priority Associated Diagnoses Orde r Schedule AMB REFERRAL TO UROLOGY Outpatient Referral Routine Urinary frequency Ordered: 09/04/2011 documented as of this encounter Visit Diagnoses Diagnosis HTN (hypertension), benign- Primary Essential hypertension, benign Hyperlipidemia Other and unspecified hyperlipidemia Urinary frequency Low back pain Lumbago Knee pain, bilateral Pain in joint, lower leg documented in this encounter
--- OUTSIDE RECORDS SUMMARY | 2024-09-06 20:29 | XMS_ITS | Encounter Summary ---
Author Organization [facility] Address [address] [place] [address] Care Team Providers Care Cabin Equipment Supervisor Name Role Phone Unavailable Primary Care Provider Unavailabl e Reason for Visit * Reason Onset Date Comments Erroneous encounter-disregard 11/25/2012 Encounter Details Date Type Department Care Team (Late st Contact Info) Description 11/25/2012 Refill [facility] - Family Medicine [address] [place] [address] Jose Rust DO [address] [place] [address] Erroneous encounter-disregard Social History Tobacco Use Types Packs/Day Years Used Date Smoking Tobacco: Former Cigarettes 1.5 25 0 12/07/1985 - 12/07/2010 Smokeless Tobacco: Never Alcohol Use Standard Drinks/Week Comments Yes 0 (1 standard drink = 0.6 oz pur e alcohol) Sex and Gender Information Value Date Recorded Sex Assigned at Male 08/31/2020 7:44 AM SHIP'S OFFICER Gender Identity Male 08/31/2020 7:44 AM SHIP'S OFFICER Sexual Orientation Straight 08/31/2020 7: 44 AM SHIP'S OFFICER documented as of this encounter Plan of Treatment Not on file documented as of this encounter Visit Diagnoses Not on filedocumented in this encounter
--- OUTSIDE RECORDS SUMMARY | 2024-09-06 20:29 | XMS_ITS | Encounter Summary ---
Author Organization [facility] Address [address] [place] [address] Care Team Providers Care Corporate Affairs Manager Name Role Phone Unavailable Primary Care Provider Trang e Encounter Details Date Type Department Care Team (Latest Contact Info) Description 12/22/2010 10:27 AM CDT - 12/22/2010 11:59 PM CDT Hospital Encounter [facility] Breast Care [address] [place] [id number] Liv Gaines MD Radiology Diagnostic Discharge Disposition: Home or Self Care Social History Tobacco Use Types Packs/Day Years Used Date Smoking Tobacco: Every Day Alcohol Use Standard Drinks/Week Comments Not Asked 0 (1 standard drink = 0.6 oz pur e alcohol) Sex and Gender Information Value Date Recorded Sex Assigned at Male 08/31/2020 7:44 AM INVESTMENT ASSOCIATE Gender Identity Male 08/31/2020 7:44 AM INVESTMENT ASSOCIATE Sexual Orientation Straight 08/31/2020 7: 44 AM INVESTMENT ASSOCIATE documented as of this encounter Medications at [...] propionate (FLONASE) 50 MCG/ACT nasal sprayIndications:Bronc hitis Tyro 2 Sprays into each nostril daily. 1 g 6 12/22/2010 05/09/2011 simvastatin (ZOCOR) 20 MG tabletIndications:Hype rlipidemia Take 1 Tab by mouth daily. 30 5 03/30/2010 01/16/2011 VENTOLIN HFA 108 (90 BASE) MCG/ACT inhaler Inhale by mouth. 1-2 puffs q4h prn. Only substitute Proair if not covered by insurance 1 Inhaler 1 12/22/2010 05/09/2011 documented as of this encounter Plan of Treatment Not on file documented as of this encounter Visit Diagnoses Not on filedocumented in this encounter
--- OUTSIDE RECORDS SUMMARY | 2024-09-06 20:29 | XMS_ITS | Encounter Summary ---
Author Organization [facility] Address [address] [place] [address] Care Team Providers Care Airline Reservationist Name Role Phone Unavailable Primary Care Provider Unavailabl e Reason for Visit * Reason Onset Date Comments Medication Problem 11/25/2012 Encounter Details Date Type Department Care Team (Late st Contact Info) Description 11/25/2012 Telephone [facility] Medical [facility] - Family Medicine [address] [place] [address] Jose Rust DO [address] [place], [place] [id number] Medication Problem Social History Tobacco Use Types Packs/Day Years Used Date Smoking Tobacco: Former Cigarettes 1.5 25 0 12/07/1985 - 12/07/2010 Smokeless Tobacco: Never Alcohol Use Standard Drinks/Week Comments Yes 0 (1 standard drink = 0.6 oz pur e alcohol) Sex and Gender Information Value Date Recorded Sex Assigned at Male 08/31/2020 7:44 AM CYTOGENETICS LABORATORY MANAGER Gender Identity Male 08/31/2020 7:44 AM CYTOGENETICS LABORATORY MANAGER Sexual Orientation Straight 08/31/2020 7: 44 AM CYTOGENETICS LABORATORY MANAGER documented as of this encounter Miscellaneous Notes * Telephone Encounter - Marybel Drummond - 11/25/2012 2:54 PM CDT Spoke to patients and she does want to refills called into local pharmacy. #30 1rf sent to local pharmacy. * Telephone Encounter - Izzy Galan MA - 11/25/2012 2:34 PM CDT I left message for to call office. I have d/c Losartan on med list and ordered 1 month worth of Valsartan 80 mg because it looks like this pharmacy is where he is out of town. Please verify if they would like additional refills there or a local pharmacy here? *Allergy warning did come up when I ordered Valsartan. I approved as this is the same as Losartan warnings. * Telephone Encounter - Jose Rust DO - 11/25/2012 1:00 PM CDT D/C Losartan Rx Valsartan 80 mg QD #30 R-2 Recheck B/P in 3 mo's * Telephone Encounter - Marybel Drummond - 11/25/2012 8:30 AM CDT Patients called stating that their is a problem with the Losartan that was prescribed for patient on 11/18/12. Patient is experiencing diarrhea,back pain,leg tingling and dizziness x 4 days. Patient declined a ov as He is out of town on business. Patient is requesting a different medication with the same affect. Please advise. Allergies Allergen Reactions ??? Perry Inhibitors Cough Last ov: 11/18/12 * Telephone Encounter - Marybel Drummond - 11/25/2012 8:21 AM CDT Patients called stating that documented in this encounter Plan of Treatment Not on file documented as of this encounter Visit Diagnoses Not on filedocumented in this encounter
--- OUTSIDE RECORDS SUMMARY | 2024-09-06 20:29 | XMS_ITS | Encounter Summary ---
Author Organization [facility] Address [address] [place] [address] Care Team Providers Care Raw Products Director Name Role Phone Alf Khan DO Primary Care Provider Stephan rosa Reason for Visit * Auth/Cert - Closed Specialty Diagnoses / Procedures Referred By Jean sosa Referred To Contact Diagnoses Abdominal pain Procedures COLONOSCOPY Referral ID Status Reason Start Date Expiration Date Visits Re quested Visits Authorized [id number] Closed 1 1 Encounter Details Date Type Department Care Team (Latest Contact Info) Description 04/15/2014 7:08 AM CDT - 04/15/2014 9:43 AM CDT Hospital Encounter [facility] - Endoscopy Services [address] [place] [id number] Astrid Rios DO [address] [place] [id number] Surgery General Discharge Disposition: Home or Self Care Social History Tobacco Use Types Packs/Day Years Used Date Smoking Tobacco: Former Cigarettes 1.5 25 0 12/07/1985 - 12/07/2010 Smokeless Tobacco: Never Alcohol Use Standard Drinks/Week Comments Yes 0 (1 standard drink = 0.6 oz pur e alcohol) social Sex and Gender Information Value Date Recorded Sex Assigned at Male 08/31/2020 7:44 AM BUMPER AND PAINTER Gender Identity Male 08/31/2020 7:44 AM BUMPER AND PAINTER Sexual Orientation Straight 08/31/2020 7: 44 AM BUMPER AND PAINTER documented as of this encounter Last Filed Vital Signs Vital Sign Reading Time Taken Comments Blood Pressure 116/67 04/15/2014 8:56 AM CDT Pulse 75 04/15/2014 8:56 AM CDT Temperature 36.4 ??C (97.5 ??F) 04/15/2014 8:56 AM CD T Respiratory Rate 20 04/15/2014 8:56 AM CDT Oxygen Saturation 95% 04/15/2014 8:56 AM CDT Inhaled Oxygen Concentration - - Weight 120.2 kg (265 lb) 04/14/2014 12:39 PM CDT Height 180.3 cm (5' 10.98 ) 04/14/2014 12:39 PM CDT Body Mass Index 36.98 04/14/2014 12:39 PM CDT documented in this encounter Functional [...] hours as needed Reported on 07/31/2016 05/12/2018 hydrocodone-acetaminoph en (NORCO) 7.5-325 MG tablet Take 1 Tab by mouth every 4 hours as needed for Pain. 60 Tab 3 09/03/2013 06/24/2014 omeprazole (PRILOSEC) 20 MG capsuleIndications:GERD (gastroesophageal reflux disease) Take 1 Cap by mouth once daily. 30 Cap 11 06/26/2013 06/24/2014 pravastatin (PRAVACHOL) 40 MG tabletIndications:Hyper lipidemia Take 1 tablet by mouth at bedtime. 30 tablet 5 04/08/2014 04/08/2017 valsartan (DIOVAN) 160 MG tabletIndications:HTN (hypertension), benign Take 1 Tab by mouth once daily. 30 Tab 9 03/10/2014 03/02/2015 documented as of this encounter Progress Notes * Kimberly Amaral RN - 04/15/2014 8:50 AM CDT Post Procedure Dx: Colonoscopy-diverticulosis, colon polyp, hemorrhoids documented in this encounter H&P Notes * Astrid Rios DO - 04/15/2014 8:34 AM CDT ENDOSCOPY PRE-PROCEDURE MEDICAL HISTORY & PHYSICAL [place] E White 48 y.o. male BP 140/84 Pulse 74 Temp(Src) 98.2 ??F Resp 18 Wt 120.203 kg (265 lb) BMI 36.98 kg/m2 History: Past Medical History Diagnosis Date ??? Unspecified essential hypertension ??? Pure hypercholesterolemia ??? Snoring no c-pap ??? Motion sickness ??? GERD (gastroesophageal reflux disease) controlled Allergies Allergen Reactions ??? Perry Inhibitors Cough Prescriptions prior to admission Medication Sig Dispense [...] 30 Cap 11 No current facility-administered medications for this encounter. Physicial Exam: General appearance: alert, cooperative, no distress Heart: regular rhythm, normal S1 and S2, without murmurs, rubs or gallops Lungs: breath sounds normal and symmetric; no rales or wheezes Abdomen: soft without mass, non-tender, with normal bowel sounds ASA Evaluation and Anesthesia Plan: Anesthesia administered per Anesthesia Department Indication(s) for Procedure: Abdominal Pain Procedure Planned: Colonoscopy Astrid Rios DO documented in this encounter Plan of Treatment Scheduled Orders Name Type Priority Associated Diagnoses Orde r Schedule ENDOSCOPY, COLON, DIAGNOSTIC GI Routine ONCE for 1 Occur rences starting 04/15/2014 until 04/15/2014 documented as of this encounter Procedures Procedure Name Priority Date/Time Associated Diagnosis Comments COLONOSCOPY 04/15/2014 4:10 PM CDT Abdominal pain PATHOLOGY TISSUE EXAM (STL) Routine 04/15/2014 8:49 AM CDT ENDOSCOPY, COLON, SCREENING Routine 04/15/2014 8:24 AM CDT documented in this encounter Results * GROSS + MICRO EXAM (STL) (04/15/2014 8:49 AM CDT) Case Report Surgical Pathology Report ? Case: [id number] ? Authorizing Provider: ??Astrid Rios DO ?Collected: ? 04/15/2014 08:49 AM ? Ordering Location: ? [facility] ?Received: ?04/15/2014 09:16 AM ? Pathologist: ? Julian Boucher MD ? Specimen: ?Polyp Sigmoid, snare ? 04/16/2014 3:43 PM CDT [facility] Final Diagnosis 1. Sigmoid colon polyp: -- Tubular adenoma REGAN/inna 04/16/2014 3:43 PM CDT [facility] Gross Description Received in formalin in a container labeled, [place]., polyp sigmoid. The container holds a 0.7 x 0.5 x 0.5 cm pink-adair tissue fragment. The margin of resection is inked blue. The specimen is sectioned and entirely submitted in a cassette labeled A1. DYT/na 04/16/2014 3:43 PM CDT [facility] Microscopic Description Section labeled, sigmoid colon polyp, show fragments of colonic mucosa displaying characteristics of ??tubular adenoma. No invasive malignancy is seen. JW/inna 04/16/2014 3:43 PM CDT [facility] Pathology/Cytolo gy POLYP OF SIGMOID COLON / Unknown 04/15/2014 8:49 AM CDT 04/15/2014 9:16 AM CDT Comment:799.9 Astrid Rios DO LAB - PATHOLOGY/CYTO LOGY ORDERABLES [facility] [address] [place] [address] * ENDOSCOPY, COLON, SCREENING (04/15/2014 8:24 AM CDT) Report Endoscopy POC _ Patient Name: Trenton Crockett ? Procedure Date: 04/15/2014 8:24 AM ? Date of : 1965 ? Admit Type: Outpatient Age: 48 ? Gender: Male Attending MD: Astrid Rios, DO ?? _ Procedure: ? Colonoscopy Indications: [...] Procedure Code(s): ? --- Professional --- ? 17423, Colonoscopy, flexible, proximal to splenic flexure; with removal ? of tumor(s), polyp(s), or other lesion(s) by snare technique ? --- Technical --- ? 78721, Colonoscopy, flexible, proximal to splenic flexure; with [...] (without mention of hemorrhage) CPT copyright 2013 [employer]. All rights reserved. The codes documented in this report are preliminary and upon charge master coordinator review may be revised to meet current compliance requirements. ___ Astrid Rios DO 04/15/2014 8:51 AM This report has been signed electronically. Number of Addenda: 0 Note Initiated On: 04/15/2014 8:24 AM [facility] 04/15/2014 8:24 AM CDT Astrid Rios DO [place] [address] documented in this encounter Visit Diagnoses Not on filedocumented in this encounter Administered Medications Inactive Administered Medications - up to 3 most recent administrations Medication Order MAR Action Action Date Dose Rate Site 0.9% NaCl infusion at 20 mL/hr, Intravenous, PRE-PROCEDURE CONTINUOUS, Starting on Althea 04/15/14 at 0845, Until Althea 04/15/14 at 1043, Pre-procedure (GI) $ New Bag/Syringe 04/15/2014 8:36 AM CDT 2 0 mL/hr documented in this encounter Active and Recently Administered Medications Times are shown in CDT. Continuous Medication Order 04/13/2014 04/14/2014 04/15/2014 0.9% NaCl infusion (CANCELED) at 20 mL/hr, Intravenous, PRE-PROCEDURE CONTINUOUS, Starting on Althea 04/15/14 at 0845, Until Althea 04/15/14 at 1043, Pre-procedure (GI) 0836 ($ New Bag/Syri nge - Provider: Kimberly Amaral RN) documented in this encounter Care Teams Raw Products Director Relationship Specialty Start Date End Date Alf Khan DO PCP - General Family Medicine 09/03/13 02/27/23 documented as of this encounter
--- OUTSIDE RECORDS SUMMARY | 2024-09-06 20:29 | XMS_ITS | Encounter Summary ---
Author Organization [facility] Address [address] [place] [address] Care Team Providers Care Bicycle Inspector Name Role Phone Unavailable Primary Care Provider Unavailabl e Reason for Visit * Reason Onset Date Comments MEDICATION REFILL 04/24/2012 Encounter Details Date Type Department Care Team (Late st Contact Info) Description 04/24/2012 Refill [facility] Medical [facility] - Family Medicine [address] [place] [address] Jose Rust DO [address] [place] [address] MEDICATION REFILL Social History Tobacco Use Types Packs/Day Years Used Date Smoking Tobacco: Former Cigarettes Q uit: 12/07/2010 Smokeless Tobacco: Never Alcohol Use Standard Drinks/Week Comments Not Asked 0 (1 standard drink = 0.6 oz pur e alcohol) Sex and Gender Information Value Date Recorded Sex Assigned at Male 08/31/2020 7:44 AM BOOKING MANAGER Gender Identity Male 08/31/2020 7:44 AM BOOKING MANAGER Sexual Orientation Straight 08/31/2020 7: 44 AM BOOKING MANAGER documented as of this encounter Miscellaneous Notes * Telephone Encounter - Raven Denise MA - 04/25/2012 5:26 PM CDT pts informed refills approved and pt needs appt before meds are out. Pt will call back next week to schedule * Telephone Encounter - Jose Rust DO - 04/25/2012 4:41 PM CDT Rx for HCTZ and Pravachol both approved for 1 month only. Need to see before out - fasting if possible. * Telephone Encounter - Jessica Corrigan - 04/25/2012 8:43 AM CDT Pt's spouse called office checking status of message. Spouse is getting an attitude about the wait.She states we should have called her to let her know it was not approved yet. * Telephone Encounter - Ramila Fields MA - 04/24/2012 8:29 AM CDT [place] E [place] Allergies Allergen Reactions ??? Perry Inhibitors Cough Requested Prescriptions Pending Prescriptions Disp Refills ??? pravastatin (PRAVACHOL) 40 MG tablet 30 Tab Sig: Take 1 Tab by mouth at bedtime. ??? hydrochlorothiazide (MICROZIDE) 12.5 MG capsule 30 Cap Sig: Take 1 Cap by mouth once daily. Last OV- 02/12/2012 documented in this encounter Plan of Treatment Not on file documented as of this encounter Visit Diagnoses Diagnosis Hyperlipidemia Other and unspecified hyperlipidemia HTN (hypertension), benign Essential hypertension, benign documented in this encounter
--- OUTSIDE RECORDS SUMMARY | 2024-09-06 20:29 | XMS_ITS | Encounter Summary ---
Author Organization [facility] Address [address] [place] [address] Care Team Providers Care Professional Nursing Tutor Name Role Phone Unavailable Primary Care Provider Unavailabl e Reason for Visit * Reason Onset Date Comments MEDICATION REFILL 03/24/2012 Encounter Details Date Type Department Care Team (Late st Contact Info) Description 03/24/2012 Refill [facility] Medical [facility] - Family Medicine [address] [place] [address] Jose Rust DO [address] [place] [address] MEDICATION REFILL Social History Tobacco Use Types Packs/Day Years Used Date Smoking Tobacco: Former Cigarettes Q uit: 12/07/2010 Smokeless Tobacco: Never Alcohol Use Standard Drinks/Week Comments Not Asked 0 (1 standard drink = 0.6 oz pur e alcohol) Sex and Gender Information Value Date Recorded Sex Assigned at Male 08/31/2020 7:44 AM FINANCIAL AGENT Gender Identity Male 08/31/2020 7:44 AM FINANCIAL AGENT Sexual Orientation Straight 08/31/2020 7: 44 AM FINANCIAL AGENT documented as of this encounter Miscellaneous Notes * Telephone Encounter - Andrea Galaviz MA - 03/24/2012 4:27 PM CDT aware Rx sent to pharmacy * Telephone Encounter - Perla Martinez - 03/24/2012 4:24 PM CDT Rx approved and sent to pharmacy * Telephone Encounter - Ramila Fields MA - 03/24/2012 8:59 AM CDT [place] Allergies Allergen Reactions ??? Perry Inhibitors Cough Requested Prescriptions Pending Prescriptions Disp Refills ??? Amlodipine Besy-Benazepril HCl (LOTREL) 10-40 MG CAPS 30 Cap Sig: Take 1 Cap by mouth once daily. Last Refill- 01/04/2012 Last OV- documented in this encounter Plan of Treatment Not on file documented as of this encounter Visit Diagnoses Not on filedocumented in this encounter
--- OUTSIDE RECORDS SUMMARY | 2024-09-06 20:29 | XMS_ITS | Encounter Summary ---
Author Organization [facility] Address [address] [place] [address] Care Team Providers Care Pearl Stringer Name Role Phone Unavailable Primary Care Provider Unavailabl e Reason for Visit * Reason Onset Date Comments Refill Request 09/01/2013 Encounter Details Date Type Department Care Team (Late st Contact Info) Description 09/01/2013 Telephone [facility] Medical [facility] - Family Medicine [address] [place] [address] Jose Rust DO [address] [place], [place] [id number] Refill Request Social History Tobacco Use Types Packs/Day Years Used Date Smoking Tobacco: Former Cigarettes 1.5 25 0 12/07/1985 - 12/07/2010 Smokeless Tobacco: Never Alcohol Use Standard Drinks/Week Comments Yes 0 (1 standard drink = 0.6 oz pur e alcohol) Sex and Gender Information Value Date Recorded Sex Assigned at Male 08/31/2020 7:44 AM SOURCING ANALYST Gender Identity Male 08/31/2020 7:44 AM SOURCING ANALYST Sexual Orientation Straight 08/31/2020 7: 44 AM SOURCING ANALYST documented as of this encounter Miscellaneous Notes * Telephone Encounter - Alyse Campbell V. - 09/01/2013 3:59 PM CST Two months ok per Perla. Patient has been scheduled with Dr. Taylor and needs to complete appointment before he can get anymore refills. CING ANALYST * Telephone Encounter - Carlota Benson - 09/01/2013 2:37 PM CST Called pt regarding refill request for Pravastatin. Rx pending until new PCP is discussed. CING ANALYST documented in this encounter Plan of Treatment Not on file documented as of this encounter Visit Diagnoses Diagnosis Hyperlipidemia- Primary Other and unspecified hyperlipidemia documented in this encounter
--- OUTSIDE RECORDS SUMMARY | 2024-09-06 20:29 | XMS_ITS | Encounter Summary ---
Author Organization [facility] Address [address] [place] [address] Care Team Providers [facility] Director Name Role Phone Unavailable Primary Care Provider Unavailabl e Reason for Visit * Reason Comments Hypertension Patient is here for a recheck on his blood pressure and lipids, he is fasting. He had hernia repair last week by Dr Yañez, doing well. Hyperlipidemia Urinary frequency He continues to have problems with urinary frequency, did not notice much difference while taking Vesicare Encounter Details Date Type Department Care Team (Late st Contact Info) Description 06/10/2012 8:15 AM CDT Office Visit [facility] - Family Medicine [address] [place] [address] Jose Rust, [address] [place] [address] HTN (hypertension), benign (Primary Dx); Hyperlipidemia; GERD (gastroesophageal reflux disease); BPH (benign prostatic hypertrophy); Need for Tdap vaccination; Need for prophylactic vaccination and inoculation against influenza Social History Tobacco Use Types Packs/Day Years Used Date Smoking Tobacco: Former Cigarettes 1.5 25 0 12/07/1985 - 12/07/2010 Smokeless Tobacco: Never Alcohol Use Standard Drinks/Week Comments Yes 0 (1 standard drink = 0.6 oz pur e alcohol) Sex and Gender Information Value Date Recorded Sex Assigned at Male 08/31/2020 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 Gender Identity Male 08/31/2020 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 Sexual Orientation Straight 08/31/2020 7: 44 AM 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 documented as of this encounter Last Filed Vital Signs Vital Sign Reading Time Taken Comments Blood Pressure 128/80 06/10/2012 8:28 AM CDT Pulse 82 06/10/2012 8:28 AM CDT Temperature - - Respiratory Rate - - Oxygen Saturation - - Inhaled Oxygen Concentration - - Weight 115.2 kg (254 lb) 06/10/2012 8:28 AM CDT Height 180.3 cm (5' 11 ) 06/10/2012 8:28 AM CDT Body Mass Index 35.43 06/10/2012 8:28 AM CDT documented in this encounter Progress Notes * Perla Martinez - 06/10/2012 8:56 AM CDT Flu vaccine given ID L upper arm Adacel given IM R deltoid * Jose Rust DO - 06/10/2012 8:51 AM CDT Office Visit, Established Patient, [id number] HISTORY: (4+ elements or 3+ chronic) CC & HPI: Trenton Crockett is a 46 y.o. male established patient, here for: Chief Complaint Patient presents with ??? Hypertension Patient is here for a recheck on his blood pressure and lipids, he is fasting. He had hernia repairlast week by Dr Yañez, doing well. ??? Hyperlipidemia ??? Urinary frequency He continues to have problems with urinary frequency, did not notice much difference while taking Vesicare Patient Active Problem List Diagnoses ??? Hyperlipidemia ??? Arthritis ??? HTN (Hypertension), Benign ??? Hepatic steatosis ??? Need for influenza vaccination ??? BPH (benign prostatic hypertrophy) Outpatient Prescriptions Prior to Visit Medication Sig Dispense Refill ??? Cholecalciferol (VITAMIN D) 1000 UNIT capsule Take 1,000 Units by mouth once daily. ??? pravastatin (PRAVACHOL) 40 MG tablet Take 1 Tab by mouth at bedtime. 30 Tab 0 ??? Amlodipine Besy-Benazepril HCl (LOTREL) 10-40 MG CAPS Take 1 Cap by mouth once daily. 30 Cap 2 ??? Multiple Vitamin Essential TABS Take by mouth once daily. ??? fish oil/omega-3 fatty acids (FISH OIL) 1000 MG capsule Take 1,000 mg by mouth once daily. ??? solifenacin (VESICARE) 5 MG tablet Take 5 mg by mouth once daily. ??? hydrocodone-acetaminophen (NORCO) 5-325 MG tablet Take 1 Tab by mouth every 4 hours as needed for Pain. 30 Tab 0 ??? hydrochlorothiazide (MICROZIDE) 12.5 MG capsule Take 1 Cap by mouth once daily. 30 Cap 0 ??? omeprazole (PRILOSEC) 20 MG capsule Take 1 Cap by mouth once daily. 30 Cap 11 Review of Systems (2 - 9) Pertinent [...] from each of 6 organ systems) BP: 128/80 Pulse: 82 Wt: 254 lb (115.214 kg) BMI: 35.43 kg/m2 FiO2: General appearance - [...] lesions Neck - supple, no significant adenopathy, carotids [...] no testicular masses or tenderness, no hernias, guaiac negative brown stool, PROSTATE EXAM: smooth and symmetric without nodules or tenderness, enlarged 2+, RECTAL EXAM: negative without mass, lesions or tenderness Neurological - alert, oriented, normal speech, no focal findings or movement disorder noted, screening mental status exam normal, neck supple without rigidity, cranial nerves II through XII intact Extremities - peripheral pulses normal, no pedal edema, no clubbing or cyanosis ASSESSMENT: 1. HTN (hypertension), benign hydrochlorothiazide (MICROZIDE) 12.5 MG capsule, GENERAL HEALTH PANEL, URINALYSIS DIPSTICK AUTO 2. Hyperlipidemia GENERAL HEALTH PANEL, LIPID PROFILE W TCHOL/HDL (PO REF LAB) 3. GERD (gastroesophageal reflux disease) omeprazole (PRILOSEC) 20 MG capsule 4. BPH (benign prostatic hypertrophy) PSA FREE + TOTAL PANEL, tamsulosin CR 24hr (FLOMAX) 0.4 MG capsule 5. Need for Tdap vaccination TDAP VACCINE >7YO IM 6. Need for prophylactic vaccination and inoculation against influenza FLU VACCINE NO PRESERV, ID PLAN: Orders Placed This Encounter ? ? TDAP VACCINE >7YO IM ??? FLU VACCINE NO PRESERV, ID ??? GENERAL HEALTH PANEL ??? LIPID PROFILE W TCHOL/HDL (PO REF LAB) ??? PSA FREE + TOTAL PANEL ??? URINALYSIS DIPSTICK AUTO ??? hydrochlorothiazide (MICROZIDE) 12.5 MG capsule Sig: Take 1 Cap by mouth once daily. Dispense: 30 Cap Refill: 11 ??? omeprazole (PRILOSEC) 20 MG capsule Sig: Take 1 Cap by mouth once daily. Dispense: 30 Cap Refill: 11 ??? tamsulosin CR 24hr (FLOMAX) 0.4 MG capsule Sig: Take 1 Cap by mouth once daily. Take 30 minutes after a meal at the same time each day. Dispense: 30 Cap Refill: 11 Medications Discontinued During This Encounter Medication Reason ??? hydrocodone-acetaminophen (NORCO) 5-325 MG tablet ??? hydrochlorothiazide (MICROZIDE) 12.5 MG capsule Reorder ??? omeprazole (PRILOSEC) 20 MG capsule Reorder Current Outpatient Prescriptions Medication [...] 1,000 Units by mouth once daily. ??? pravastatin (PRAVACHOL) 40 MG tablet Take 1 Tab by mouth at bedtime. 30 Tab 0 ??? Amlodipine Besy-Benazepril HCl (LOTREL) 10-40 MG CAPS Take 1 Cap by mouth once daily. 30 Cap 2 ??? Multiple Vitamin Essential TABS Take by mouth once daily. ??? fish oil/omega-3 fatty acids (FISH OIL) 1000 MG capsule Take 1,000 mg by mouth once daily. ??? solifenacin (VESICARE) 5 MG tablet Take 5 mg by mouth once daily. Return to office in 6 months. Patient instructed to call with any concerns or problems. Weight loss !!! documented in this encounter Plan of Treatment Not on file documented as of this encounter Procedures Procedure Name Priority Date/Time Associated Diagnosis Comments URINALYSIS NO MICROSCOPIC NO CULTURE Routine 06/10/2012 9:15 AM CDT HTN (hypertension), benign GENERAL HEALTH PANEL Routine 06/10/2012 9:14 AM CDT HTN (hypertension), benign Hyperlipidemia LIPID PROFILE W TCHOL/HDL Routine 06/10/2012 9:14 AM CDT Hyperlipidemia PSA FREE + TOTAL PANEL Routine 06/10/2012 9:14 AM CDT BPH (benign prostatic hypertrophy) documented in this encounter Results * URINALYSIS DIPSTICK AUTO (06/10/2012 9:15 AM CDT) Specific [place] UA 1.022 1.005 - 1.030 [facility] ACCOUNT BILL pH [...] Negative Negative [facility] ACCOUNT BILL Urobilinogen 0.2 0.0 - 1.9 mg/dL [facility] ACCOUNT BILL Nitrite UA Negative Negative [facility] ACCOUNT BILL Microscopic Examination Urine [facility] ACCOUNT BILL Comment:Microscopic follows if indicated. Urine specimen (specimen) URINE SPECIMEN OBTAINED BY CLEAN CATCH PROCEDURE / Unknown 06/10/2012 9:15 AM CDT 06/10/2012 8:06 PM CDT Narrative Resulting Agency Comment [facility] [address] ??[facility] [phone] Jose Rust DO LAB - URINALYSIS ORD ERABLES [facility] ACCOUNT BILL * PSA FREE + TOTAL PANEL (06/10/2012 9:14 AM CDT) PSA 1.7 0.0 - 4.0 ng/mL [facility] ACCOUNT BILL Comment: Brenda ECLIA methodology. ? . According to the [place] [employer], Serum PSA should decrease and [...] CDT Narrative Resulting Agency Comment [facility] [place] [address] ??[place] [phone] Jose Rust DO LAB - CHEMISTRY LIZABETH WILEY [facility] ACCOUNT BILL * (ABNORMAL) LIPID PROFILE W TCHOL/HDL (PO REF LAB) (06/10/2012 9:14 AM CDT) Cholesterol 162 100 - 199 mg/dL [facility] ACCOUNT BILL Triglycerides 203(H) 0 - 149 mg/dL [facility] ACCOUNT BILL HDL Cholesterol 42 >39 mg/dL [facility] ACCOUNT BILL Comment: According to ATP-III Guidelines, HDL-C >59 mg/dL is considered a negative risk factor for CHD. VLDL Calculated 41(H) 5 - 40 mg/dL [facility] ACCOUNT BILL LDL Calculated 79 0 - 99 mg/dL [facility] ACCOUNT BILL Cholesterol/HDL Ratio 3.9 0.0 - 5.0 ratio units [facility] ACCOUNT BILL BLOOD SPECIMEN / Unknown 06/10/2012 9:14 AM CDT 06/10/2012 5:20 PM CDT Narrative Resulting Agency Comment [facility] [address] ??[facility] [phone] Jose Rust DO LAB - CHEMISTRY LIZABETH WILEY [facility] ACCOUNT BILL * (ABNORMAL) GENERAL HEALTH PANEL (06/10/2012 9:14 AM CDT) Glucose 102(H) 65 - 99 mg/dL [facility] ACCOUNT BILL BUN 15 6 - 24 mg/dL [facility] ACCOUNT BILL Creatinine 0.85 0.76 - 1.27 mg/dL [facility] ACCOUNT BILL eGFR by MDRD 104 >59 mL/min/1. 73 [facility] ACCOUNT BILL eGFR by MDRD 121 >59 mL/min/1. 73 [facility] ACCOUNT BILL BUN/Creatinine Ratio 18 9 - 20 [facility] ACCOUNT BILL Sodium 139 134 - 144 mmol/L [facility] ACCOUNT BILL Potassium 4.7 3.5 - 5.2 mmol/L [facility] ACCOUNT BILL Chloride 101 97 - 108 mmol/L [facility] ACCOUNT BILL CO2 26 20 - 32 mmol/L [facility] ACCOUNT BILL Calcium 9.7 8.7 - 10.2 mg/dL [facility] ACCOUNT BILL Protein Total 7.0 6.0 - 8.5 g/dL [facility] ACCOUNT BILL Albumin 4.2 3.5 - 5.5 g/dL [facility] ACCOUNT BILL Globulin Total 2.8 1.5 - 4.5 g/dL [facility] ACCOUNT BILL Albumin/Globulin Ratio 1.5 1.1 - 2.5 [facility] ACCOUNT BILL Bilirubin Total 0.4 0.0 - 1.2 mg/dL [facility] ACCOUNT BILL Alkaline Phosphatase 90 25 - 150 IU/L [facility] ACCOUNT BILL AST 47(H) 0 - 40 IU/L [facility] ACCOUNT BILL ALT 47 0 - 55 IU/L [facility] ACCOUNT BILL Comment: ? Effective June 23, 2012 the reference interval ? for ALT (SGPT) will be changing to: ? Male ?Female ?0 - 11 years ?0 - 29 ? 0 - 28 ? 12 - 17 years ?0 - 30 ? 0 - 24 ?> 17 years ?0 - 44 ? 0 - 32 TSH 2.530 0.450 - 4.500 uIU/mL [facility] ACCOUNT BILL WBC 9.7 4.0 - 10.5 x10E3/uL [facility] ACCOUNT BILL RBC 5.13 4.14 - 5.80 x10E6/uL [facility] ACCOUNT BILL Hemoglobin 16.8 12.6 - 17.7 g/dL [facility] ACCOUNT BILL Hematocrit 48.0 37.5 - 51.0 % [facility] ACCOUNT BILL MCV 94 79 - 97 fL [facility] ACCOUNT BILL MCH 32.7 26.6 - 33.0 pg [facility] ACCOUNT BILL MCHC 35.0 31.5 - 35.7 g/dL [facility] ACCOUNT BILL RDW 13.3 12.3 - 15.4 % [facility] ACCOUNT BILL Platelet Count 260 140 - 415 x10E3/uL [facility] ACCOUNT BILL Granulocytes % 57 40 - 74 % [facility] ACCOUNT BILL Lymphocytes % 31 14 - 46 % [facility] ACCOUNT BILL Monocytes % 9 4 - 13 % [facility] ACCOUNT BILL Eosinophils % 2 0 - 7 % [facility] ACCOUNT BILL Basophils % 1 0 - 3 % [facility] ACCOUNT BILL Immature Cells NOT NEEDED [facility] ACCOUNT BILL Comment:Ancillary determined the test is not needed Granulocytes Absolute 5.5 1.8 - 7.8 x10E3/uL [facility] ACCOUNT BILL Lymphocytes Absolute 3.0 0.7 - 4.5 x10E3/uL [facility] ACCOUNT BILL Monocytes Absolute 0.9 0.1 - 1.0 x10E3/uL [facility] ACCOUNT BILL Eosinophils Absolute 0.2 [...] is not needed BLOOD SPECIMEN / Unknown 06/10/2012 9:14 AM CDT 06/10/2012 5:20 PM CDT Narrative Resulting Agency Comment [facility] [address] ??[facility] [phone] Jose Rust DO LAB - CHEMISTRY LIZABETH Centeno Organization Address City/State/ZIP Co de Phone Number [facility] ACCOUNT BILL documented in this encounter Visit Diagnoses Diagnosis HTN (hypertension), benign- Primary Essential hypertension, benign Hyperlipidemia Other and unspecified hyperlipidemia GERD (gastroesophageal reflux disease) Esophageal reflux BPH (benign prostatic hypertrophy) Hypertrophy of prostate without urinary obstruction and other lower urinary tract symptoms (LUTS) Need for Tdap vaccination Need for prophylactic vaccination with combined [id number] (DTP) vaccine Need for prophylactic vaccination and inoculation against influenza documented in this encounter
--- OUTSIDE RECORDS SUMMARY | 2024-09-06 20:29 | XMS_ITS | Encounter Summary ---
Author Organization [facility] Address [address] [address] Care Team Providers Care Attacher Name Role Phone Unavailable Primary Care Provider Unavailabl e Reason for Visit * Reason Onset Date Comments MEDICATION REFILL 06/04/2011 Encounter Details Date Type Department Care Team (Late st Contact Info) Description 06/04/2011 Refill [facility] - Family Medicine [address] [place] [address] Jose Rust DO [address] [place] [address] MEDICATION REFILL Social History Tobacco Use Types Packs/Day Years Used Date Smoking Tobacco: Former Cigarettes Q uit: 12/07/2010 Smokeless Tobacco: Never Alcohol Use Standard Drinks/Week Comments Not Asked 0 (1 standard drink = 0.6 oz pur e alcohol) Sex and Gender Information Value Date Recorded Sex Assigned at Male 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 doxazosin (CARDURA) 4 MG tablet 30 Tab Sig: Take 0.5 Tabs by mouth at bedtime. Allergies Allergen Reactions ??? Perry Inhibitors Cough Last Refill:05/09/2011#30 Last OV:05/23/2011 documented in this encounter Plan of Treatment Not on file documented as of this encounter Visit Diagnoses Diagnosis HTN (hypertension), benign- Primary Essential hypertension, benign documented in this encounter
--- OUTSIDE RECORDS SUMMARY | 2024-09-06 20:29 | XMS_ITS | Encounter Summary ---
Author Organization [facility] Address [address] [place] [address] Care Team Providers Care Superintendent [employer] Name Role Phone Unavailable Primary Care Provider Unavailabl e Reason for Visit * Reason Comments Cough Encounter Details Date Type Department Care Team (Late st Contact Info) Description 12/22/2010 9:45 AM CDT Office Visit 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 Gender Identity Male 08/31/2020 7:44 AM MANAGER CULINARY Sexual Orientation Straight 08/31/2020 7: 44 AM MANAGER CULINARY documented as of this encounter Last Filed Vital Signs Vital Sign Reading Time Taken Comments Blood Pressure 132/86 12/22/2010 9:46 AM CDT Pulse 76 12/22/2010 9:46 AM CDT Temperature - - Respiratory Rate - - Oxygen Saturation - - Inhaled Oxygen Concentration - - Weight 103 kg (227 lb) 12/22/2010 9:46 AM CDT Height 181 cm (5' 11.25 ) 12/22/2010 9:46 AM CDT Body Mass Index 31.44 12/22/2010 9:46 AM CDT documented in this encounter Progress Notes * Liv Gaines MD - 12/22/2010 10:01 AM CDT Chief Complaint Patient presents with ??? Cough SUBJECTIVE: Trenton Crockett is a 45 y.o. male who complains of several days of congestion, dry cough and R ear pain, nasal drainage. He denies a history of fevers and denies a history of asthma. Patient admits to smoke cigarettes. He has not had chills, sweats, rigors. He has tried the following: Augmentin. His had strep throat, went to and given med for R ear infection. On antibiotic 2-3 days, helpinga little. Still feeling bad, took Mucinex and helped a little. hospitalized now for possible lung problems, doesn't know the diagnosis and worried about it being infectious. Feels a little tightin chest. Has HTN, Stable chronic condition, no new symptoms or problems. Needs RF Lotrel, admits to poor compliance. Has high TG, abnormal labs 03/2010- but not fasting today. Will schedule f/u. Is a smoker, wants to quit smoking but cannot afford Chantix. Allergies as of 12/22/2010 - reviewed 12/22/2010 Allergen Reaction Noted ??? Perry inhibitors Cough 09/30/2009 No past medical history on file. Current outpatient prescriptions Medication Sig Dispense Refill ??? amoxicillin-clavulanate (AUGMENTIN) 875-125 MG tablet Take 875 mg by mouth 2 times daily with breakfast and dinner. ??? amlodipine-benazepril (LOTREL) 5-20 MG capsule Take 1 Cap by mouth daily. 30 Cap 2 ??? simvastatin (ZOCOR) 20 MG tablet Take 1 Tab by mouth daily. 30 5 History Substance Use Topics ??? Smoking status: Current Everyday Smoker ??? Smokeless tobacco: Never Used ??? Alcohol Use: Not on file ROS: Positive per above HPI Gen: possible fever, fatigue Resp: mild cough/shortness of breath Cardio: No chest pains, palpitations GI: No N/V/D/C Skin: No rashes or lesions OBJECTIVE: BP 132/86 Pulse 76 Wt 227 lb (102.967 kg) BMI 31.44 kg/m2 Height: 5' 11.25 (181 cm) Body mass index is 31.44 kg/(m^2). Gen: WNWD in NAD HEENT: NCAT, EOMI, Sclera clear and noninjected, TMs mild redness on R but left is clear, OP with erythema and 1 + tonsils, no tonsillar exudate, no LAD, neck supple; nasal edema Resp: good air movement but wheezing in bases CV: RRR without m/r/g Neuro: normal gait Skin: No rashes or lesions noted Previous labs/visit reviewed ASSESSMENT/PLAN: 1. Bronchitis (490H) albuterol HFA (PROVENTIL HFA) 108 (90 BASE) MCG/ACT inhaler, codeine-guaifenesin (ROBITUSSIN-AC) 100-10 MG/5ML solution, fluticasone propionate (FLONASE) 50 MCG/ACT nasal spray, XR CHEST PA AND LATERAL 2. HTN (hypertension), benign (401.1E) amoxicillin-clavulanate (AUGMENTIN) 875- 125 MG tablet, amlodipine-benazepril (LOTREL) 5-20 MG capsule, buPROPion SR 12hr (WELLBUTRIN SR) 150 MG tablet 3. Otitis media (382.9C) 4. Tobacco abuse (305.1U) albuterol HFA (PROVENTIL HFA) 108 (90 BASE) MCG/ACT inhaler, XR CHEST PA AND LATERAL 5. HYPERTRIGLYCERIDEMIA (272.1AL) 6. Abnormal blood chemistry (790.6AD) May use OTC decongestants/cold meds as discussed but cautioned regarding side effects. May try gargling salt water and using sinus rinse or Neti-pot. Take medications as directed, use/risks reviewed.Followup if not improving or if worsening. Proper medication use, risks, side effects/adverse effects and potential interactions reviewed and patient understands. Smoking cessation counseling for <3 minutes was done today. Smoking cessation aids and medications reviewed, including risks and side effects. Risks of continuing to smoke include but are not limited to cancer, heart disease, stroke, hypertension, kidney disease and vision changes. Patient understands these risks. Schedule f/u [address] Rust- needs fasting labs as well, he understands. documented in this encounter Plan of Treatment Not on file documented as of this encounter Results * XR CHEST PA [...] documented in this encounter Visit Diagnoses Diagnosis Bronchitis- Primary Bronchitis, not specified as acute or chronic HTN (hypertension), benign Essential hypertension, benign Otitis media Unspecified otitis media Tobacco abuse Tobacco use disorder Hypertriglyceridemia Pure hyperglyceridemia Abnormal blood chemistry Other abnormal blood chemistry Bronchitis Bronchitis, not specified as acute or chronic Tobacco abuse Tobacco use disorder documented in this encounter
--- OUTSIDE RECORDS SUMMARY | 2024-09-06 20:29 | XMS_ITS | Encounter Summary ---
Author Organization [facility] Address [address] [place] [address] Care Team Providers Care Gsa Coordinator Name Role Phone Alf Khan DO Primary Care Provider Stephan rosa Reason for Visit * Reason Onset Date Comments Referral 08/17/2015 Encounter Details Date Type Department Care Team (Late st Contact Info) Description 08/17/[address] 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 K VEHICLE REPAIRER * Telephone Encounter - Andrea Galaviz MA - 08/17/2015 10:18 AM TRACK VEHICLE REPAIRER Patient needs a referral to a technician assistant for a sleep study per DOT physical doctor. Will you order the referral the referral for the patient. Please advise. K VEHICLE REPAIRER documented in this encounter Plan of Treatment Not on file documented as of this encounter Goals Goal Patient Goal Type Associated Problems Recent Progress Patient-Stated? Author Blood Pressure < 140/90 Blood Pressure 172/93(2022 8:59 AM CDT) No Zachary Moreno documented as of this encounter Visit Diagnoses Not on filedocumented in this encounter Care Teams Gsa Coordinator Relationship Specialty Start Date End Date Alf Khan DO PCP - General Family Medicine 09/03/13 02/27/23 documented as of this encounter
--- OUTSIDE RECORDS SUMMARY | 2024-09-06 20:29 | XMS_ITS | Encounter Summary ---
Author Organization [facility] Address [address] [place] [id number] Care Team Providers Care Venture Capitalist Name Role Phone Unavailable Primary Care Provider Unavailabl e Reason for Visit * Reason Onset Date Comments Scheduling 05/15/2011 Encounter Details Date Type Department Care Team (Late st Contact Info) Description 05/15/2011 Telephone [facility] Medical [facility] - Family Medicine [address] [place] [address] Jose Rust DO [address] [place], [place] [id number] Scheduling Social History Tobacco Use Types Packs/Day Years Used Date Smoking Tobacco: Former Cigarettes Q uit: 12/07/2010 Smokeless Tobacco: Never Alcohol Use Standard Drinks/Week Comments Not Asked 0 (1 standard drink = 0.6 oz pur e alcohol) Sex and Gender Information Value Date Recorded Sex Assigned at Male 08/31/2020 7:44 AM SENIOR TECHNICAL EDITOR Gender Identity Male 08/31/2020 7:44 AM SENIOR TECHNICAL EDITOR Sexual Orientation Straight 08/31/2020 7: 44 AM SENIOR TECHNICAL EDITOR documented as of this encounter Miscellaneous Notes * Telephone Encounter - Charito Lopez - 05/15/2011 9:00 AM CDT Patient scheduled for Liver Ultrasound at [facility] on 05/17/2011 at 8:30am. Order placed in epic. Patient aware. * Telephone Encounter - Charito Lopez - 05/15/2011 8:59 AM CDT Message copied by CHARITO LOPEZ on SatMay 15, 2011 8:59 AM ------ Message from: KALA MANDUJANO Created: dominique May 15, 2011 8:52 AM Pt aware of 05/10/2011 Lipid, CMP, CBC, TSH. PSA, VIt D and UA results. Pt will work on diet/exercise to help improve lipid sloan. Please schedule Liver US documented in this encounter Plan of Treatment Not on file documented as of this encounter Results * US ABDOMEN LIMITED (05/17/2011 8:46 AM CDT) Anatomical Region Laterality Modality Abdomen Ultrasound 05/17/2011 9:09 AM CDT Impressions 05/17/2011 9:09 AM CDT Hepatic steatosis, otherwise unremarkable. Narrative 05/17/2011 9:09 AM CDT RIGHT UPPER QUADRANT ULTRASOUND INDICATION: Increased liver function tests TECHNIQUE: Grayscale images of the right upper quadrant were performed. There is no evidence of cholelithiasis. The liver is increased in echogenicity as can be seen with steatosis. There is no free fluid. Common bile duct measures 4 mm. The visualized portions of the pancreas are unremarkable. Doppler shows a normal flow direction and velocity to the portal vein. Hepatic vein is triphasic. The right kidney is of normal size, echogenicity and renal cortical thickness and measures 11.4 cm x 5.1 cm x 5.9 cm. Procedure Note Griselda Zamora MD - 05/17/2011 RIGHT UPPER QUADRANT ULTRASOUND INDICATION: Increased liver function tests TECHNIQUE: Grayscale images of the right upper quadrant were performed. There is no evidence of cholelithiasis. The liver is increased in echogenicity as can be seen with steatosis. There is no free fluid. Common bile duct measures 4 mm. The visualized portions of the pancreas are unremarkable. Doppler shows a normal flow direction and velocity to the portal vein. Hepatic vein is triphasic. The right kidney is of normal size, echogenicity and renal cortical thickness and measures 11.4 cm x 5.1 cm x 5.9 cm. IMPRESSION Hepatic steatosis, otherwise unremarkable. Jose Rust DO US ORDERABLES documented in this encounter Visit Diagnoses Diagnosis Elevated liver enzymes- Primary Other nonspecific abnormal serum enzyme levels Elevated liver enzymes Other nonspecific abnormal serum enzyme levels documented in this encounter
--- OUTSIDE RECORDS SUMMARY | 2024-09-06 20:29 | XMS_ITS | Encounter Summary ---
Author Organization [facility] Address [address] [place] [address] Care Team Providers Care Wet Char Conveyor Tender Name Role Phone Alf Khan DO Primary Care Provider Stephan rosa Reason for Visit * Reason Comments Refill Request Encounter Details Date Type Department Care Team (Late st Contact Info) Description 08/12/2015 Refill [facility] - Family Medicine [address] [place] [address] Alf Khan, DO Refill Request Social History Tobacco Use Types Packs/Day Years Used Date Smoking Tobacco: Former Cigarettes 1.5 25 0 12/07/1985 - 12/07/2010 Smokeless Tobacco: Never Alcohol Use Standard Drinks/Week Comments Yes 0 (1 standard drink = 0.6 oz pur e alcohol) social Sex and Gender Information Value Date Recorded Sex Assigned at Male 08/31/2020 7:44 AM DIETARY SERVICE AIDE Gender Identity Male 08/31/2020 7:44 AM DIETARY SERVICE AIDE Sexual Orientation Straight 08/31/2020 7: 44 AM DIETARY SERVICE AIDE documented as of this encounter Functional Status [...] * Telephone Encounter - Puja Raymundo - 08/12/2015 7:47 AM CST Requested Prescriptions Pending Prescriptions Disp Refills ??? omeprazole (PRILOSEC) 20 MG capsule [Pharmacy Med Name: OMEPRAZOLE 20MG CAPSULES] 30 Cap 0 Sig: TAKE 1 CAPSULE BY MOUTH DAILY Rx approved sent to pharmacy [facility] 01/28/15 patient is overdue for follow up before next refill given ARY SERVICE AIDE documented in this encounter Plan of Treatment Not on file documented as of this encounter Goals Goal Patient Goal Type Associated Problems Recent Progress Patient-Stated? Author Blood Pressure < 140/90 Blood Pressure 172/93(2022 8:59 AM CDT) No Zachary Mroeno documented as of this encounter Visit Diagnoses Not on filedocumented in this encounter Care Teams Wet Char Conveyor Tender Relationship Specialty Start Date End Date Alf Khan DO PCP - General Family Medicine 09/03/13 02/27/23 documented as of this encounter
--- OUTSIDE RECORDS SUMMARY | 2024-09-06 20:29 | XMS_ITS | Encounter Summary ---
Author Organization [facility] Address [address] [place] [address] Care Team Providers Care Slp Teacher Name Role Phone Unavailable Primary Care Provider Unavailabl e Reason for Visit * Reason Onset Date Comments MEDICATION REFILL 01/16/2011 Encounter Details Date Type Department Care Team (Late st Contact Info) Description 01/16/2011 Refill [facility] - Family Medicine [address] [place] [address] Liv Gaines MD MEDICATION REFILL Social History Tobacco Use Types Packs/Day Years Used Date Smoking Tobacco: Every Day Alcohol Use Standard Drinks/Week Comments Not Asked 0 (1 standard drink = 0.6 oz pur e alcohol) Sex and Gender Information Value Date Recorded Sex Assigned at Male 08/31/2020 7:44 AM PARTS CATALOGER Gender Identity Male 08/31/2020 7:44 AM PARTS CATALOGER Sexual Orientation Straight 08/31/2020 7: 44 AM PARTS CATALOGER documented as of this encounter Miscellaneous Notes * Telephone Encounter - Ramila Fields MA - 01/16/2011 12:38 PM CDT [place] [facility] Allergies Allergen Reactions ??? Perry Inhibitors Cough Requested Prescriptions Pending Prescriptions Disp Refills ??? simvastatin (ZOCOR) 20 MG tablet 90 Tab Sig: Take 1 Tab by mouth daily. Last OV- 12/22/2010 documented in this encounter Plan of Treatment Not on file documented as of this encounter Visit Diagnoses Diagnosis Hyperlipidemia- Primary Other and unspecified hyperlipidemia documented in this encounter
--- OUTSIDE RECORDS SUMMARY | 2024-09-06 20:29 | XMS_ITS | Encounter Summary ---
Author Organization [facility] Address [address] [place] [address] Care Team Providers Care School Guard Name Role Phone Unavailable Primary Care Provider Trang e Encounter Details Date Type Department Care Team (Late st Contact Info) Description 05/09/[address] [facility] - Family Medicine [address] [place] [address] Jose Rust DO [address] [place] [address] Social History Tobacco Use Types Packs/Day Years Used Date Smoking Tobacco: Former Cigarettes Q uit: 12/07/2010 Smokeless Tobacco: Never Alcohol Use Standard Drinks/Week Comments Not Asked 0 (1 standard drink = 0.6 oz pur e alcohol) Sex and Gender Information Value Date Recorded Sex Assigned at Male 08/31/2020 7:44 AM CORE INSPECTOR Gender Identity Male 08/31/2020 7:44 AM CORE INSPECTOR Sexual Orientation Straight 08/31/2020 7: 44 AM CORE INSPECTOR documented as of this encounter Plan of Treatment Not on file documented as of this encounter Procedures Procedure Name Priority Date/Time Associated Diagnosis Comments REF LAB-TEST AUTHORIZATION 05/09/2011 2:50 PM CDT HEPATITIS SCREEN ACUTE W/REFLX HBSAG 05/09/2011 2:50 PM CDT documented in this encounter Results * PO REF LAB-TEST AUTHORIZATION (05/09/2011 2:50 PM CDT) NTQR Reading Physician ID ACUTE HEP PANEL [facility] Test Code [id number] [facility] Client Contact ALIYAH VIDAL See Note [facility] Comment: The laboratory testing on this patient was verbally requested or confirmed by the ordering physician or his or her authorized welding equipment sales representative after contact with an employee of [employer]. Federal regulations require that we maintain on file written authorization for all laboratory testing. ??Accordingly we are asking that the ordering physician or his or her authorized welding equipment sales representative sign a copy of this report and promptly return it to the client services assistant. Signature: Fax number: [phone] Test Performed at: [facility] [address] [place], [place] ??[phone] BISI SCHWARZ DO,MPH 05/09/2011 2:50 PM CDT 05/10/2011 5:23 AM CDT Jose Rust DO LAB - CHEMISTRY LIZABETH WILEY Performing Organization Address [facility] de Phone Number [facility] [phone] [place] [address] * HEPATITIS SCREEN ACUTE W/REFLX HBSAG (POREF (05/09/2011 2:50 PM CDT) Hepatitis A Virus Antibody IgM NON-REACTI VE NON-REACT QUINN [facility] Comment: Test Performed at: [facility] [address] [place], [place] ??[phone] BISI SCHWARZ DO,MPH Hepatitis B Virus Surface Antigen NON-REACTI VE NON-REACT QUINN [facility] Hepatitis B Core Virus Antibody IgM NON-REACTI VE NON-REACT QU[facility]N [facility] Hepatitis C Antibody NON-REACTI VE NON-REACT [facility]N [facility] Signal to Cut-Off 0.12 <1.00 [facility] 05/09/2011 2:50 PM CDT 05/10/2011 5:23 AM CDT Jose Rust DO LAB - CHEMISTRY LIZABETH CAROLERAMON Performing Organization Address [facility] de Phone Number [facility] [phone] [place] [address] documented in this encounter Visit Diagnoses Not on filedocumented in this encounter
--- OUTSIDE RECORDS SUMMARY | 2024-09-06 20:29 | XMS_ITS | Encounter Summary ---
Author Organization [facility] Address [address] [place] [address] Care Team Providers Care Enrober Tender Name Role Phone Unavailable Primary Care Provider Unavailnathalie e Reason for Visit * Reason Onset Date Comments MEDICATION REFILL 06/26/2013 Encounter Details Date Type Department Care Team (Late st Contact Info) Description 06/26/2013 Refill [facility] - Family Medicine [address] [place] [address] Jose Rust DO [address] [place] [address] MEDICATION REFILL Social History Tobacco Use Types Packs/Day Years Used Date Smoking Tobacco: Former Cigarettes 1.5 25 0 12/07/1985 - 12/07/2010 Smokeless Tobacco: Never Alcohol Use Standard Drinks/Week Comments Yes 0 (1 standard drink = 0.6 oz pur e alcohol) Sex and Gender Information Value Date Recorded Sex Assigned at Male 08/31/2020 7:44 AM TELECOMMUNICATIONS TECHNICIAN Gender Identity Male 08/31/2020 7:44 AM TELECOMMUNICATIONS TECHNICIAN Sexual Orientation Straight 08/31/2020 7: 44 AM TELECOMMUNICATIONS TECHNICIAN documented as of this encounter Miscellaneous Notes * Telephone Encounter - Carlota Benson - 06/26/2013 2:54 PM CDT [place] [facility] Allergies Allergen Reactions ??? Perry Inhibitors Cough Requested Prescriptions Pending Prescriptions Disp Refills ??? tamsulosin CR 24hr (FLOMAX) 0.4 MG capsule 30 Cap Sig: Take 1 Cap by mouth once daily. Take 30 minutes after a meal at the same time each day. Last Refill:06/10/12 #30 Ref 11 Last OV:04/10/13 documented in this encounter Plan of Treatment Not on file documented as of this encounter Visit Diagnoses Diagnosis BPH (benign prostatic hypertrophy)- Primary Hypertrophy of prostate without urinary obstruction and other lower urinary tract symptoms (LUTS) documented in this encounter
--- OUTSIDE RECORDS SUMMARY | 2024-09-06 20:29 | XMS_ITS | Encounter Summary ---
Author Organization [facility] Address [address] [place] [address] Care Team Providers Care Babysitter Name Role Phone Unavailable Primary Care Provider Trang e Encounter Details Date Type Department Care Team (Late st Contact Info) Description 06/05/2011 Orders Only [facility] Medical [facility] - Family Medicine [address] [place] [address] Maddy Feliciano HTN (hypertension), benign Social History Tobacco Use Types Packs/Day Years Used Date Smoking Tobacco: Former Cigarettes Q uit: 12/07/2010 Smokeless Tobacco: Never Alcohol Use Standard Drinks/Week Comments Not Asked 0 (1 standard drink = 0.6 oz pur e alcohol) Sex and Gender Information Value Date Recorded Sex Assigned at Male 08/31/2020 7:44 AM WASTEWATER DESIGN ENGINEER Gender Identity Male 08/31/2020 7:44 AM WASTEWATER DESIGN ENGINEER Sexual Orientation Straight 08/31/2020 7: 44 AM WASTEWATER DESIGN ENGINEER documented as of this encounter Plan of Treatment Not on file documented as of this encounter Visit Diagnoses Diagnosis HTN (hypertension), benign- Primary Essential hypertension, benign documented in this encounter
--- OUTSIDE RECORDS SUMMARY | 2024-09-06 20:29 | XMS_ITS | Encounter Summary ---
Author Organization [facility] Address [address] [address] Care Team Providers Care Lien Searcher Name Role Phone Unavailable Primary Care Provider Trang e Encounter Details Date Type Department Care Team (Latest Contact Info) Description 06/03/2012 5:27 AM CDT - 06/03/2012 11:00 AM CDT Hospital Encounter Replaced by [facility] - Perioperative Surgery [id number] [place] [address] Flako Yañez DO RETIRED Surgery General Discharge Disposition: Home or Self Care Social History Tobacco Use Types Packs/Day Years Used Date Smoking Tobacco: Former Cigarettes 1.5 25 0 12/07/1985 - 12/07/2010 Smokeless Tobacco: Never Alcohol Use Standard Drinks/Week Comments Yes 0 (1 standard drink = 0.6 oz pur e alcohol) Sex and Gender Information Value Date Recorded Sex Assigned at Male 08/31/2020 7:44 AM [employer] Gender Identity Male 08/31/2020 7:44 AM [employer] Sexual Orientation Straight 08/31/2020 7: 44 AM [employer] documented as of this encounter Last Filed Vital Signs Vital Sign Reading Time Taken Comments Blood Pressure 133/76 06/03/2012 10:18 AM CDT Pulse 77 06/03/2012 10:18 AM CDT Temperature 36.7 ??C (98 ??F) 06/03/2012 10:18 AM CDT Respiratory Rate 16 06/03/2012 10:18 AM CDT Oxygen Saturation 90% 06/03/2012 10:18 AM CDT Inhaled Oxygen Concentration - - Weight 116 kg (255 lb 11.7 oz) 06/03/2012 5:51 A M CDT Height 180.3 cm (5' 11 ) 06/03/2012 5:51 AM CDT Body Mass Index 35.67 06/03/2012 5:51 AM CDT documented in this encounter Discharge Instructions * Discharge Instructions* Alisha Reynoso RN - 06/03/2012 10:30 AM CDT If you have any questions regarding your home medications/prescriptions, please contact your primary physician. LAST PAIN MED GIVEN AT Discharge Procedure Orders DIET INSTRUCTIONS Start light diet today (i.e soup, Jell-O, toast). If no nausea or vomiting, may resume normal diet.In case of nausea or vomiting, reduce diet to fluids low in acid (water, sports drinks, white sodas). As you are able to tolerate the fluids, gradually increase your diet. IF NAUSEA AND/OR VOMITING PERSISTS, CONTACT YOUR PHYSICIAN. NO ALCOHOLIC BEVERAGES For the next 24 hours or while taking pain medication. REST TODAY Increase activity tomorrow as tolerated. Walk 10 - 15 minutes, three times a day DO NOT DRIVE Do not drive or operate hazardous machinery while taking pain medication. DO NOT DRIVE UNTIL THE NEXT OFFICE VISIT. Order Specific Question Answer Comments For how long? Until follow up appointment NO TUB BATH Until approved by physician. Order Specific Question Answer Comments For how long? Until follow up appointment MAY SHOWER May leave incision open to air. Shower and inspect site daily. Order Specific Question Answer Comments after... Two days MAY REMOVE DRESSING If steri strips are present leave in place until follow up visit. Order Specific Question Answer Comments after... Two days GENERAL ANESTHESIA /IV SEDATION INSTRUCTIONS For the remainder of the day, plan to relax. A feeling of dizziness, light- headedness or drowsinessis not unusual. Move cautiously, fast movements can make this feeling worse. If you have been lyingdown, sit up slowly and pause briefly before standing. We strongly suggest that a responsible adultbe with you until tomorrow AM for your comfort and safety. APPLY ICE PACK TO SURGICAL SITE On / Off for next 48 Hours. CALL PHYSICIAN If you experience increasing or unrelieved pain, drainage, redness, bleeding, or swelling at surgical site and/or IV site. CALL PHYSICIAN For any vomiting or fever of 100.5 degrees or greater. CALL PHYSICIAN If unable to urinate in 6 - 8 hours or if uncomfortable. PATIENT TO CALL PHYSICIAN FOR APPOINTMENT Please call the office within 24 hours to schedule appointment. Emergency exchange number [phone] PRESCRIPTIONS GIVEN TO PATIENT/FAMILY MEDICATION INSTRUCTIONS Take prescribed pain medications as needed. Exercise caution when walking, driving, or climbing stairs. Take pain med's with food. Watch for constipation. Please avoid smoking and second hand smoke. The following belongings have been returned to you: Clothing: Yes, Secured: Shirt;Pants;Footwear;Undergarments;Other (Comment) (hat) Jewelry: None Electronic Items: Yes, Secured: Cell Phone Dentures/Retainers: None Visual Aids: None Hearing Aids: None Equipment with Patient: None, Equipment At Home: None Home Medications: None Miscellaneous Items: None Monetary Items: Yes, Secured: Wallet .WEIGHT MONITORING - If you have heart failure, weigh yourself every morning. Contact your physician if your weight increases by 3 pounds in 1 day OR 5 pounds in 1 week. WHAT TO DO IF SYMPTOMS WORSEN - Contact your physician if you have shortness of breath/difficulty breathing, or any swelling of your legs, ankles or feet. The discharge and medication instructions have been reviewed with me and my questions have been answered. I have received a copy of the discharge instructions. 06/03/2012 Hydrocodone/Acetaminophen (By mouth) Acetaminophen (x-jbls-j-MIN-oh-fen), Hydrocodone Bitartrate (ayq-vqvj-IDS-done dtx-TXN-eqouj) Treats moderate to moderately severe pain. This medicine contains a narcotic pain reliever. Brand Name(s):Vicodin ES, Vicodin, Lortab 7.5/500, Lortab 10/500, [place], Lortab 5/500, Xodol 7.5/300, Xodol 5/300, Lorcet Plus, Lorcet 10/650, Zydone, Theracodophen-650, Anexsia, Co-Gesic, Kmrhselojfuyx-Zbw-59 There may be other brand names for this medicine. When This Medicine Should Not Be Used: You should not use this medicine if you have had an allergic reaction to acetaminophen (Tylenol??) or hydrocodone, or to other narcotic medicines (such as Darvon??, Percocet??, Percodan??). How to Use This Medicine: Tablet, Liquid, Capsule ?? Your doctor will tell you how much of this medicine to take and how often. Do not take more medicine or take it more often than your doctor tells you to. It is not safe to use more than 4 grams (4,000 milligrams) of acetaminophen in one day (24 hours). ?? If this medicine upsets your stomach, you may take it with food or milk. ?? Measure the oral liquid with a marked measuring spoon or medicine cup. ?? Drink plenty of fluids to help avoid constipation. If a dose is missed: ?? If you are taking this medicine on a regular schedule and you miss a dose or forget to take yourmedicine, take it as soon as you can. If it is almost time for your next dose, wait until then to take the medicine and skip the missed dose. ?? Do not use extra medicine to make up for a missed dose. How to Store and Dispose of This Medicine: ?? Store the medicine at room temperature in a closed container, away from heat, moisture, and direct light. Do not freeze. Ask your pharmacist, doctor, or health caregiver about the best way to dispose of any leftover medicine after you have finished your treatment. You will also need to throw away old medicine after the expiration date has passed. ?? Keep all medicine away from children and never share your medicine with anyone. Drugs and Foods to Avoid: Ask your doctor or pharmacist before using any other medicine, including zxnl-mcd-sfbpown medicines, vitamins, and herbal products. ?? Make sure your doctor knows if you are using an MAO inhibitor (Eldepryl??, Marplan??, Nardil??, Parnate??), medicine for depression (such as amitriptyline, imipramine, Norpramin??, Vivactil??), orany medicines that make you sleepy (such as sleeping pills, cold and allergy medicine, other narcotic pain relievers, or sedatives). ?? Do not drink alcohol while you are using this medicine. Acetaminophen can damage your liver and drinking alcohol can increase this risk. If you regularly drink 3 or more alcoholic drinks every day, do not take acetaminophen without asking your doctor. ?? Many combination medicines contain acetaminophen, including products with brand names such as [place] Plus??, Comtrex??, Drixoral??, Excedrin Migraine??, Midol??, Sinutab??, Sudafed??, Theraflu??, and Vanquish??. Carefully check the labels of all other medicines you are using to be sure they do not contain acetaminophen. Warnings While Using This Medicine: ?? Make sure your doctor knows if you are or , or if you have lung disease, liver disease, kidney disease, problems with urination, underactive thyroid, Brian's disease, prostate problems, a stomach disorder, or a history of head injury or brain tumor. ?? This medicine may be habit-forming. If you feel that the medicine is not working as well, do nottake more than your prescribed dose. Call your doctor for instructions. ?? Make sure any doctor or dentist who treats you knows that you are using this medicine. Acetaminophen may affect the results of certain laboratory tests. ?? This medicine may make you dizzy or drowsy. Avoid driving, using machines, or doing anything else that could be dangerous if you are not alert. ?? This medicine may cause constipation. This is more common if you use it for a long time. Ask your doctor if you should also use a laxative to prevent and treat constipation. Possible Side Effects While Using This Medicine: Call your doctor right away if you notice any of these side effects: ?? Allergic reaction: Itching or hives, swelling in face or hands, swelling or tingling in the mouth or throat, tightness in chest, trouble breathing ?? Extreme weakness, shallow breathing, slow heartbeat, sweating, cold or clammy skin ?? Lightheadedness or fainting ?? Nausea, vomiting, loss of appetite, pain in the upper stomach ?? Problems with urination ?? Unusual bleeding or bruising ?? Yellow skin or eyes, dark-colored urine or pale stools If you notice these less serious side effects, talk with your doctor: ?? Anxiety, mood changes ?? Constipation ?? Mild skin rash or itching If you notice other side effects that you think are caused by this medicine, tell your doctor. Call your doctor for medical advice about side effects. You may report side effects to FDA at 1-224-UNV-1445 Copyright ?? 2012. [employer]. All rights reserved. Information is for End User's use only andmay not be sold, redistributed or otherwise used for commercial purposes. The above information is an transportation aide only. It is not intended as medical advice for individual conditions or treatments. Talk to your doctor, nurse or pharmacist before following any medical regimen to see if it is safe and effective for you. * Discharge Instructions* Document, Scanned - 06/04/2012 12:43 PM CDT documented in this encounter Medications at Time of Discharge Medication Sig Dispensed Refills Start Date End Date Amlodipine Besy-Benazepril HCl (LOTREL) 10-40 MG CAPS Take 1 Cap by mouth once daily. 30 Cap 2 03/24/2012 11/18/2012 Cholecalciferol (VITAMIN D) 1000 UNIT capsule Take 1,000 Units by mouth once daily. 04/10/2013 fish oil/omega-3 fatty acids (FISH OIL) 1000 MG capsule Take 1,000 mg by mouth once daily. 04/10/2013 hydrochlorothiazide (MICROZIDE) 12.5 MG capsuleIndications:HTN (hypertension), benign Take 1 Cap by mouth once daily. 30 Cap 0 05/27/2012 06/10/2012 hydrocodone-acetaminophen (NORCO) 5-325 MG tablet Take 1 Tab by mouth every 4 hours as needed for Pain. 30 Tab 0 06/03/2012 06/10/2012 Multiple Vitamin Essential TABS Take by mouth once daily. 04/10/2013 omeprazole (PRILOSEC) 20 MG capsuleIndications:GERD (gastroesophageal reflux disease) Take 1 Cap by mouth once daily. 30 Cap 11 08/07/2011 06/10/2012 pravastatin (PRAVACHOL) 40 MG tabletIndications:Hyperli pidemia Take 1 Tab by mouth at bedtime. 30 Tab 0 05/27/2012 08/06/2012 solifenacin (VESICARE) 5 MG tablet Take 5 mg by mouth once daily. 11/18/2012 documented as of this encounter Progress Notes * Malick العلي CRNA - 06/03/2012 11:43 AM CDT POST-OP ANESTHESIA EVALUATION Lennie Crockett is a 46 y.o. male The patient is sufficiently recovered from the acute administration of the anesthesia so as to participate in the evaluation or neurologic status has returned to pre-operative or expected level of consciousness. The post-anesthesia assessment was completed based upon the elements below. The patient is stable and has adequately recovered from anesthesia unless otherwise noted. Post-op Evaluation: Temp: 98 ??F Pulse: 77 Resp: 16 SpO2: 90 % BP: 133/76 mmHg Pain Rating Score #: 3 Resp function: Natural Airway Cardiac Function: Stable Mental Status : Awake/Alert Pain: Comfortable / acceptable Nausea / Vomiting: None Post Procedure Hydration: Adequate Other complications A post-op evaluation was performed on the patient with the following assessment: No Apparent Anesthesia Complications;Vital Signs and Mental Status unchanged from Preop Unless otherwise indicated, the patient is being discharged from anesthesia care. Malick العلي TANNING SALON ATTENDANT * Virgen Rosen, DO - 06/03/2012 6:40 AM CDT Lennie Crockett 46 y.o. male : 1965 PRE-ANESTHESIA EVALUATION Scheduled Procedure Scheduled procedure: ventral hernia repair Patient Active Problem List Diagnoses ??? Hyperlipidemia ??? Arthritis ??? HTN (Hypertension), Benign ??? Hepatic steatosis ??? Need for influenza vaccination Allergies Perry inhibitors Meds Prescriptions prior to admission Medication Sig Dispense Refill ??? Cholecalciferol (VITAMIN D) 1000 UNIT capsule Take 1,000 Units by mouth once daily. ??? solifenacin (VESICARE) 5 MG tablet Take 5 mg by mouth once daily. ??? pravastatin (PRAVACHOL) 40 MG tablet Take 1 Tab by mouth at bedtime. 30 Tab 0 ??? hydrochlorothiazide (MICROZIDE) 12.5 MG capsule Take 1 Cap by mouth once daily. 30 Cap 0 ??? Amlodipine Besy-Benazepril HCl (LOTREL) 10-40 MG CAPS Take 1 Cap by mouth once daily. 30 Cap 2 ??? omeprazole (PRILOSEC) 20 MG capsule Take 1 Cap by mouth once daily. 30 Cap 11 ??? Multiple Vitamin Essential TABS Take by mouth once daily. ??? fish oil/omega-3 fatty acids (FISH OIL) 1000 MG capsule Take 1,000 mg by mouth once daily. Current Facility-Administered Medications Medication Dose Route Frequency Provider Last Rate Last Dose ??? lactated ringers infusion Intravenous pre-OP continuous Toni Muñoz MD 20 mL/hr at 06/03/12632 ??? famotidine (PEPCID) tablet 20 mg 20 mg Oral pre-OP once Toni Muñoz MD 20 mg at 06/03/12614 ??? ondansetron (disintegrating) (ZOFRAN ODT) tablet 8 mg 8 mg Sublingual pre-OP once Toni Muñoz MD 8 mg at 06/03/12614 ??? ceFAZolin (ANCEF) IVPB 2 g 2 g Intravenous pre-OP once Flako Yañez, DO Past Medical History Diagnosis Date ??? Unspecified essential hypertension ??? Pure hypercholesterolemia ??? Snoring no c-pap ??? Motion sickness ??? GERD (gastroesophageal reflux disease) controlled Past Surgical History Procedure Date ??? [place] tooth extraction No family history on file. History Social History ??? Marital Status: Spouse Name: N/A Number of Children: N/A ??? Years of Education: N/A Occupational History ??? Not on file. Social History Main Topics ??? Smoking status: Former Smoker -- 1.5 packs/day for 25 years Quit date: 12/07/2010 ??? Smokeless tobacco: Never Used ??? Alcohol Use: Yes ??? Drug Use: No ??? Sexually Active: Not on file Other Topics Concern ??? Not on file Social History Narrative ??? No narrative on file Labs: Component Name 05/09/11 1450 WBC 8.1 HGB 16.0 HCT 47.2 PLTCOUNT 190 Component Name 05/09/11 1450 SODIUM 140 POTASSIUM 4.3 CO2 24 BUN 15 CREATININE 0.82 GLUCOSE 79 No results found for this basename: PT,INR,PTT in the last 46658 hours Test:No results found for this basename: HCGURINE in the last 58847 hours VITAL SIGNS Temp: 98.4 ??F Pulse: 71 Resp: 16 BP: 133/88 mmHg Weight: 255 lb 11.7 oz Height: 5' 11 SpO2: 97 % Pre-Eval ExamPrevious Review I reviewed previous documentation: Yes PHYSICAL EXAM NPO status: Since Midnight;Except Oral meds with H2O Heart Sounds: S1 S2 Respiratory Pattern/Effort: CTA Oriented x 3: Yes Teeth: Ok Airway Class: II ANESTHESIA ASA: II Anesthesia Choices: General Post-Op: PACU I have discussed anesthesia with the patient and including possible complications and techniques. He/She/They understand(s) and consent(s). documented in this encounter H&P Notes * Document, Scanned - 06/10/2012 10:14 AM CDT * Flako Yañez DO - 05/29/2012 3:45 PM CDT PATIENT: Lennie Crockett : 1965 DATE: 05/25/2012 PRESENT ILLNESS: This is a male with the complaint of abdominal wall pain, bulging, and swelling. States this has been getting progressively worse over the last several weeks. On examination shows evidence of a ventral hernia, which I am unable to reduce. CURRENT MEDICAL PROBLEMS: Medical history positive for high blood pressure, elevated cholesterol, arthritis PREVIOUS SURGERY: Surgical history is negative MEDICATIONS and ALLERGIES: Takes multiple medications which are part of the chart SOCIAL HISTORY: Denies smoking admits to occasional alcohol usage NUMBER OF CHILDREN: FAMILY HISTORY: Family history of lung cancer and heart disease REVIEW OF SYSTEMS: Constitutional: denies fever or chills, no change in weight or sleeping habits. Eyes: denies blurred vision, scleral icterus or glaucoma. ENT: denies hearing deficit, dizziness, runny nose, hoarseness or sore throat. Cardiovascular: denies chest pain, palpitations, orthopnea or edema. Respiratory: denies cough, wheezing or difficulty breathing. Gastrointestinal: Admits to pain, denies nausea, vomiting, constipation, diarrhea, melena or hematochezia. Genitourinary: denies nocturia, hematuria, dysuria, frequency or kidney stones. Musculoskeletal: denies stiffness, back pain or joint pain. Neuro/Psych: denies headaches, seizures, paralysis, depression or anxiety. Hemat/lymph: denies easy bruising, nose bleeds or adenopathy. PHYSICAL EXAMINATION: Vital Signs: Weight 250 pulse 82 respirations 18 Appearance: patient is well developed, well nourished and cooperative. Eyes: conjunctivae pink, sclerae clear, PERRLA. ENT: inspection of ears, nose and oropharynx benign. Neck: supple without masses, trachea midline, no adenopathy or thyromegaly. Lungs: clear to percussion and auscultation. Heart: regular, S1-S2, no murmur,rub or gallop. Abdomen: soft, nontender, sounds normal, no organomegaly, masses or inguinal nodes. There is an incarcerated ventral hernia Extremities: no edema, cyanosis, clubbing or varicosities. Neuro/Psych: non focal, alert and oriented x3, emotional state normal. Surgical Attendant: <> Breast: <> Rectal: <> IMPRESSION: 1. incarcerated ventral hernia PATIENT DISCUSSION: He will be schedued for surgery on 06/03/12. The clinical findings of today's visit and planned treatment were outlined for the patient. The procedure indications, risks, benefits and alternative option were also explained and questions answered. The patient understood and agreedto the procedure. Flako Yañez DO documented in this encounter Procedure Notes * Document, Scanned - 06/05/2012 9:14 AM CDTAssociated Order(s): EKG 12-LEAD * Document, Scanned - 06/03/2012 3:42 PM CDTAssociated Order(s): EKG 12-LEAD documented in this encounter OR Notes * Operative - Flako Yañez DO - 06/03/2012 12:50 PM CDT [facility] Operative Report [facility] OPERATIVE REPORT PATIENT: : DWIGHT LENNIE EMR#: [id number] ADMIT DATE: 06/03/2012[place]#: [id number] DATE OF SURGERY: 06/03/2012DOB: 1965 PHYSICIAN: MIGUEL Metcalf: PREOPERATIVE DIAGNOSIS: Ventral hernia. POSTOPERATIVE DIAGNOSIS: Incarcerated ventral hernia. PROCEDURES PERFORMED: Repair of incarcerated ventral hernia with mesh. SURGEON: Flako Yañez DO PROCEDURE: The patient in the supine position on the operating table under general intubation anesthesia. The abdominal wall was prepped with Betadine solution, and sterile towels and drapes were applied. An incision was developed through the skin and subcutaneous tissue over palpable mass and carried down to deeper margins. We come upon the hernia sac, which was opened and noted be incarcerated with omentum. Using blunt and sharp dissection, the sac was opened. This was dissected and positioned back into peritoneal cavity. Redundant hernia sac was then excised. When this was completed, a medium Ventralex mesh was inserted and secured with 0 Surgilon. This adequately obliterates the defect.The wound was lavaged with saline solution. Hemostasis appropriate. The fascia was closed with 0 Vicryl. The fat closed with plain and skin with 4-0 Vicryl. Dressings were applied. The patient recovered in satisfactory condition. GROSS PATHOLOGY: A 46-year-old significantly overweight male, pain, bulging, and swelling to the anterior abdominal wall. At surgery, an incarcerated ventral hernia identified, repaired as described with mesh, tolerated well the operation. Flako Yañez DO MGV/MedQ #: [id number] documented in this encounter Miscellaneous Notes * Miscellaneous Scans - Document, Scanned - 06/11/2012 9:01 AM CDT * Miscellaneous Scans - Document, Scanned - 06/04/2012 12:43 PM CDT * Miscellaneous Scans - Document, Scanned - 06/04/2012 12:43 PM CDT * Miscellaneous Scans - Document, Scanned - 06/04/2012 12:43 PM CDT * Miscellaneous Scans - Document, Scanned - 06/04/2012 12:43 PM CDT * Miscellaneous Scans - Document, Scanned - 06/04/2012 12:43 PM CDT documented in this encounter Plan of Treatment Not on file documented as of this encounter Procedures Procedure Name Priority Date/Time Associated Diagnosis Comments BASIC METABOLIC PANEL (CALCIUM TOTAL) Timed 06/03/2012 6:02 AM CDT Preop examination EKG 12-LEAD Pre-Op 06/03/2012 4:47 AM CDT Preop examination documented in this encounter Results * BASIC METABOLIC PANEL (CALCIUM TOTAL) (06/03/2012 6:02 AM CDT) BUN 15 7.0 - 21.0 mg/dL [facility] Sodium 141 136 - 145 mmol/L [facility] Potassium 4.0 3.5 - 5.1 mmol/L [facility] Chloride 107 98.0 - 107.0 mmol/L [facility] CO2 28 22.0 - 30.0 mmol/L [facility] Anion Gap 6.0 [facility] Glucose 100 74 - 106 mg/dL [facility] Creatinine 0.67 0.5 - 1.3 mg/dL [facility] Calcium 8.7 8.5 - 10.1 mg/dL [facility] eGFR by MDRD 128 mL/min/1.73 m2 [facility] Blood specimen (specimen) BLOOD SPECIMEN / Unknown 06/03/2012 6:02 AM CDT 06/03/2012 6:12 AM CDT Toni Mñuoz MD LAB - CHEMISTRY ELIZAEcho LAMRAMON Performing Organization Address [facility] Co de Phone Number [facility] [id number] [place] [address] * EKG 12-LEAD (06/03/2012 4:47 AM CDT) Ventricular Rate 74 BPM [facility] Atrial Rate 74 BPM [facility] P-R Interval 172 ms [facility] QRS Duration ms 108 ms [facility] Q-T Interval ms 394 ms [facility] QTC Calculation (Bezet) 437 ms [facility] Calculated P [place] 34 degrees [facility] Calculated R [place] 35 degrees [facility] Calculated T [place] 23 degrees [facility] Interpretation EKG Normal sinus rhythm Normal ECG No previous ECGs available Confirmed by ATTILA MERINO MD ([id number]) on 06/05/2012 9:12:30 AM [facility] 06/03/2012 4:47 AM CDT 06/05/2012 9:12 AM CDT Narrative Transcriptions Document, Scanned - 06/03/2012 3:42 PM CDT Document, Scanned - 06/05/2012 9:14 AM CDT Toni Muñoz MD ECG ORDERABLES Performing Organization Address [facility] Co de Phone Number [facility] documented in this encounter Visit Diagnoses Diagnosis Ventral hernia, unspecified, without mention of obstruction or gangrene Preop examination Preoperative examination, unspecified documented in this encounter Administered Medications Inactive Administered Medications - up to 3 most recent administrations Medication Order MAR Action Action Date Dose Rate Site ceFAZolin (ANCEF) IVPB 2 g 2 g, at 100 mL/hr, Intravenous, PRE-OP ONCE, 1 dose $ Admin. by Other Provider 06/03/2012 7:34 AM CDT 2 g 100 mL/hr famotidine (PEPCID) tablet 20 mg 20 mg, Oral, PRE-OP ONCE, 1 dose, Administer to patients 18 years of age and older., Pre-op $ Given 06/03/2012 6:15 AM CDT 20 mg hydrocodone-acetaminophen (NORCO) 5-325 MG tablet 1-2 Tab 1-2 tablet, Oral, EVERY 4 HOURS PRN, Mild Pain, For mild pain (pain scale 1-3)., Starting on Sat06/03/12 at 0938, Until Sat06/03/12 at 1449, Maximum allowable Acetaminophen amount = 4 Grams (4000 mg) / 24 hours., Post-op $ Given 06/03/2012 10:22 AM CDT 1 tablet lactated ringers infusion at 20 mL/hr, Intravenous, PRE-OP CONTINUOUS, Starting on Sat06/03/12 at 0615, Until Sat06/03/12 at 1449, Pre-op $ New Bag/Syringe 06/03/2012 6:33 AM CDT 20 mL/hr ondansetron (disintegrating) (ZOFRAN ODT) tablet 8 mg 8 mg, Sublingual, PRE-OP ONCE, 1 dose, Pre-op $ Given 06/03/2012 6:15 AM CDT 8 mg documented in this encounter Active and Recently Administered Medications Times are shown in CDT. Scheduled Medication Order 06/01/2012 06/02/2012 06/03/2012 ceFAZolin (ANCEF) IVPB 2 g (COMPLETED) 2 g, at 100 mL/hr, Intravenous, PRE-OP ONCE, 1 dose 0734 ($ Admin. by Ot her Provider - Provider: Malick العلي CRNA)0744 (Rx Stopped - Provider: Malick العلي CRNA) famotidine (PEPCID) tablet 20 mg (COMPLETED) 20 mg, Oral, PRE-OP ONCE, 1 dose, Administer to patients 18 years of age and older., Pre-op 0615 ($ Given - Prov ider: Alisha Young RN) ondansetron (disintegrating) (ZOFRAN ODT) tablet 8 mg (COMPLETED) 8 mg, Sublingual, PRE-OP ONCE, 1 dose, Pre-op 0615 ($ Given - Prov ider: Alisha Young RN) Continuous Medication Order 06/01/2012 06/02/2012 06/03/2012 lactated ringers infusion (CANCELED) at 20 mL/hr, Intravenous, PRE-OP CONTINUOUS, Starting on Sat06/03/12 at 0615, Until Sat06/03/12 at 1449, Pre-op 0633 ($ New Bag/Syri nge - Provider: Alisha Young RN)1036 (Stopped - Provider: Alisha Reynoso, MARIANA) PRN Medication Order 06/01/2012 06/02/2012 06/03/2012 hydrocodone-acetaminophen (NORCO) 5-325 MG tablet 1-2 Tab (CANCELED) 1-2 tablet, Oral, EVERY 4 HOURS PRN, Mild Pain, For mild pain (pain scale 1-3)., Starting on Sat06/03/12 at 0938, Until Sat06/03/12 at 1449, Maximum allowable Acetaminophen amount = 4 Grams (4000 mg) / 24 hours., Post-op 1022 ($ Given - Prov ider: Alisha Reynoso RN) documented in this encounter
--- OUTSIDE RECORDS SUMMARY | 2024-09-06 20:29 | XMS_ITS | Encounter Summary ---
Author Organization [facility] Address [address] [place] [address] Care Team Providers Care Resin Shaver Name Role Phone Unavailable Primary Care Provider Unavailabl e Reason for Visit * Reason Onset Date Comments MEDICATION REFILL 05/10/2011 Encounter Details Date Type Department Care Team (Late st Contact Info) Description 05/10/2011 Refill [facility] - Family Medicine [address] [place] [address] Jose Rust DO [address] [place] [address] MEDICATION REFILL Social History Tobacco Use Types Packs/Day Years Used Date Smoking Tobacco: Former Cigarettes Q uit: 12/07/2010 Smokeless Tobacco: Never Alcohol Use Standard Drinks/Week Comments Not Asked 0 (1 standard drink = 0.6 oz pur e alcohol) Sex and Gender Information Value Date Recorded Sex Assigned at Male 08/31/2020 7:44 AM REVIEW SCHEDULING COORDINATOR Gender Identity Male 08/31/2020 7:44 AM REVIEW SCHEDULING COORDINATOR Sexual Orientation Straight 08/31/2020 7: 44 AM REVIEW SCHEDULING COORDINATOR documented as of this encounter Miscellaneous Notes * Telephone Encounter - Quynh Mart - 05/10/2011 10:10 AM CDT Pt does not get Rx through [facility] and Rx for simvastatin sent in in December 2010. Rx sent to , per pt request. documented in this encounter Plan of Treatment Not on file documented as of this encounter Visit Diagnoses Diagnosis Hyperlipidemia- Primary Other and unspecified hyperlipidemia documented in this encounter
--- OUTSIDE RECORDS SUMMARY | 2024-09-06 20:29 | XMS_ITS | Encounter Summary ---
Author Organization [facility] Address [address] [place] [address] Care Team Providers Care Viscosity Tester Name Role Phone Alf Khan DO Primary Care Provider Stephan rosa Reason for Referral * PT/OT/ST - Closed Specialty Diagnoses / Procedures Referred By Jean sosa Referred To Contact Diagnoses Radicular pain in left arm Alf Khan DO [address] [address] [facility] PHYSICAL THERAPY - [facility] ([facility]) [address] [place] [id number] Referral ID Status Reason Start Date Expiration Date V isits Requested Visits Authorized [id number] Closed Specialty Services Required 11/05/2014 05/04/2015 12 12 Scheduling Instructions [facility] Physical Therapy at [facility] If you have not been contacted by an [facility] Crisis Clinician within 24 hours, please contact the office directly to schedule your appointment. Reason for Visit * Reason Comments Shoulder Pain Left shoulder pain n ow x 3 weeks. Patient states he has pain and limited ROM. MEDICATION REFILL discuss pain medicat ion refills. Pain Back Discuss ongoing back pains. Encounter Details Date Type Department Care Team (Latest Contact Info) Description 11/01/2014 7:45 AM CDT Office Visit [facility] - Family Medicine [address] [place] [address] Alf Khan DO Radicular pain in left arm (Primary Dx); Hyperlipidemia; HTN (hypertension), benign; Degeneration of lumbar or lumbosacral intervertebral disc; Degeneration of cervical intervertebral disc; Glucose intolerance (impaired glucose tolerance) Social History Tobacco Use Types Packs/Day Years Used Date Smoking Tobacco: Former Cigarettes 1.5 25 0 12/07/1985 - 12/07/2010 Smokeless Tobacco: Never Tobacco Cessation:Counseling Given: Yes Alcohol Use Standard Drinks/Week Comments Yes 0 (1 standard drink = 0.6 oz pur e alcohol) social Sex and Gender Information Value Date Recorded Sex Assigned at Male 08/31/2020 7:44 AM FIXER SUPERVISOR Gender Identity Male 08/31/2020 7:44 AM FIXER SUPERVISOR Sexual Orientation Straight 08/31/2020 7: 44 AM FIXER SUPERVISOR documented as of this encounter Last Filed Vital Signs Vital Sign Reading Time Taken Comments Blood Pressure 156/88 11/01/2014 8:27 AM CDT missed BP med last night Pulse 88 11/01/2014 8:07 AM CDT Temperature - - Respiratory Rate - - Oxygen Saturation - - Inhaled Oxygen Concentration - - Weight 119.7 kg (264 lb) 11/01/2014 8:0 7 AM CDT Height 180.3 cm (5' 11 ) 11/01/2014 8:0 7 AM CDT Body Mass Index 36.82 11/01/2014 8:07 AM CDT documented in this encounter Functional [...] this encounter Patient Instructions * Patient Instructions* Zachary Moreno - 11/01/2014 8:06 AM CDT Caring for Your High Blood Pressure Healthy [...] Where can I go for more information? [place] [employer] National Center: http://www.americanheart.org 1. In the top header, click ???Conditions?? . 2. In the top header, click ???high blood pressure.?? 3. For a printable blood pressure tracker, scroll toward the bottom of the page to Related Tools, and click ???HBP Trackers.?? 7-580-UAM-USA-1 or ( ) National Heart, Lung and Blood [place]: http://www.nhlbi.nih.gov/health/infoctr/index.htm documented in this encounter Progress Notes * Alf Khan DO - 11/01/2014 8:10 AM CDT Office Visit, Established Patient, [id number] HISTORY: CC & HPI: Trenton Crockett is a 48 y.o. male established patient, here for: Chief Complaint Patient presents with ??? Shoulder Pain Left shoulder pain now x 3 weeks. Patient states he has pain and limited ROM. ??? MEDICATION REFILL discuss pain medication refills. ??? Pain Back Discuss ongoing back pains. 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 Pt was pulling on something hard and had shooting/burning pain from left side down arm about 3.5 wks go. Pt's pain is constant. Sometimes hydrocodone helps but doesn't completely alleviate pain. Pt states that he still has full ROM. Improves with laying down. Worse with movement. Denies numbness/tingling. No SE with meds. Has early DM and is on diet and pravastin for lipids and needs re ck labs ROS negative for vomiting, CP, SOB, dysuria. 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 Has worse pain in low back usually is concerned with this more than neck but the left arm pain burning in neck arm posterior Trap down left arm Patient Active Problem List Diagnosis Date Noted [...] to Visit Medication Sig Dispense Refill ??? dicyclomine (BENTYL) 10 MG capsule Take [...] hours as neededfor Pain. 120 Tab 0 No facility-administered medications prior to visit. Review [...] No family history on file. EXAM BP 156/88 Pulse 88 Wt 119.75 kg (264 lb) BMI 36.84 kg/m2 FiO2: General appearance - alert, well [...] edema noted MS-has full ROM left shoulder does not aggravate the pain neg Tinel's sign ASSESSMENT: ICD-9-CM 1. Radicular pain in left arm 729.2 AMB REFERRAL TO PHYSICAL THERAPY 2. Hyperlipidemia 272.4 COMPREHENSIVE METABOLIC PANEL LIPID PROFILE W TCHOL/HDL (PO REF LAB) 3. HTN (hypertension), benign 401.1 4. Degeneration of lumbar or lumbosacral intervertebral disc 722.52 5. Degeneration of cervical intervertebral disc 722.4 6. Glucose intolerance (impaired glucose tolerance) 790.22 HEMOGLOBIN A1C PLAN: Orders Placed This Encounter ??? COMPREHENSIVE METABOLIC PANEL ??? LIPID PROFILE W TCHOL/HDL (PO REF LAB) ??? HEMOGLOBIN A1C ??? AMB REFERRAL TO PHYSICAL THERAPY Standing Status: Future Number of Occurrences: Standing Expiration Date: 11/01/2015 Referral Type: PT/OT/ST Referral Reason: Specialty Services Required Referral Location: [facility] PHYSICAL THERAPY [facility] (HOSP) Number of Visits Requested: 12 ??? predniSONE (DELTASONE) 10 MG tablet Si qd x 2 days, pc then 1 less pill every 2 days until gone Dispense: 20 Tab Refill: 0 ??? hydrocodone-acetaminophen (NORCO) 7.5-325 MG tablet Sig: Take 1 Tab by mouth every 4 hours as needed for Pain. Dispense: 120 Tab Refill: 0 ??? gabapentin (NEURONTIN) 600 MG tablet Sig: Take 0.5-1 Tabs by mouth 4 times daily. Dispense: 90 Tab Refill: 5 Medications Discontinued During This Encounter Medication Reason ??? hydrocodone-acetaminophen (NORCO) 7.5-325 MG tablet Reorder Current Outpatient Prescriptions Medication Sig Dispense Refill ??? predniSONE (DELTASONE) 10 MG tablet 4 qd x 2 days, pc then 1 less pill every 2 days until gone 20 Tab 0 ??? hydrocodone-acetaminophen (NORCO) 7.5-325 MG tablet Take 1 Tab by mouth every 4 hours as neededfor Pain. 120 Tab 0 ??? gabapentin (NEURONTIN) 600 MG tablet Take [...] No current facility-administered medications for this visit. Discussion on metabolic syndrome and weight loss Recent Labs Component Name 04/08/14 1413 HGBA1C 5.9* Recent Labs Component Name 04/05/14 1540 04/10/13 1416 06/10/12 0914 CHOL 172 182 162 TRIG 393* 157* 203* HDL 34* 45 42 LDLCALC 59 106* 79 Recent Labs Component Name 04/05/14 1540 06/18/13 1534 04/10/13 1416 06/10/12 0914 SODIUM 139 -- 140 139 POTASSIUM 3.9 -- 4.1 4.7 CHLORIDE 100 -- 99 101 CO2 26 -- 24 26 BUN 12 -- 12 15 CREATININE 0.65* -- 0.75* 0.85 GLUCOSE 111* -- 91 102* CALCIUM 9.4 -- 9.1 9.7 ALBUMIN 4.3 4.0 4.3 4.2 ALKPHOS 90 90 108* 90 ALT 27 42 31 47 AST 34 47* 36 47* TBIL 0.4 0.4 0.8 0.4 TPROT 6.8 6.6 7.1 7.0 EGFR 115 -- 109 104 Will prescribe prednisone neurontin and if not better PT ordered RF norco Safe use and storage of controlled meds reviewed with pt again today SE of meds discussed with patient and best way to take medication. All questions answered. Return to office in 4 months. Patient instructed to call with any concerns or problems. documented in this encounter Plan of Treatment Scheduled Orders Name Type Priority Associated Diagnoses Orde r Schedule COMPREHENSIVE METABOLIC PANEL Lab Routine Hyperlipidemia Ordered: 11/01/2014 LIPID PROFILE W TCHOL/HDL (PO REF LAB) Lab Routine Hyperlipidemia Ordered: 11/01/2014 HEMOGLOBIN A1C Lab Routine Glucose intolerance (impaired glucose tolerance) Ordered: 11/01/2014 Scheduled Referrals Name Type Priority Associated Diagnoses Orde r Schedule AMB REFERRAL TO PHYSICAL THERAPY Outpatient Referral Routine Radicular pain in left arm Expected: 11/05/2014, Expires: 11/01/2015 documented as of this encounter Goals Goal Patient Goal Type Associated Problems Recent Progress Patient-Stated? Author Blood Pressure < 140/90 Blood Pressure 172/93(2022 8:59 AM CDT) No Zachary Moreno documented as of this encounter Visit Diagnoses Diagnosis Radicular pain in left arm- Primary Neuralgia, neuritis, and radiculitis, unspecified Hyperlipidemia Other and unspecified hyperlipidemia HTN (hypertension), benign Essential hypertension, benign Degeneration of lumbar or lumbosacral intervertebral disc Degeneration of cervical intervertebral disc Glucose intolerance (impaired glucose tolerance) Impaired glucose tolerance test documented in this encounter Care Teams Viscosity Tester Relationship Specialty Start Date End Date Alf Khan DO PCP - General Family Medicine 09/03/13 02/27/23 documented as of this encounter
--- OUTSIDE RECORDS SUMMARY | 2024-09-06 20:29 | XMS_ITS | Encounter Summary ---
Author Organization [facility] Health Address [address] [address] Care Team Providers Care Color Consultant Name Role Phone Unavailable Primary Care Provider Trang e Encounter Details Date Type Department Care Team (Latest Contact Info) Description 05/17/2011 8:21 AM CDT - 05/17/2011 11:59 PM CDT Hospital Encounter [facility] - Ultrasound [address] [place] [address] Jose Rust DO [address] [place] [address] Radiology Diagnostic Discharge Disposition: Home or Self Care Social History Tobacco Use Types Packs/Day Years Used Date Smoking Tobacco: Former Cigarettes Q uit: 12/07/2010 Smokeless Tobacco: Never Alcohol Use Standard Drinks/Week Comments Not Asked 0 (1 standard drink = 0.6 oz pur e alcohol) Sex and Gender Information Value Date Recorded Sex Assigned at Male 08/31/2020 7:44 AM WINDOW DISPLAY DESIGNER Gender Identity Male 08/31/2020 7:44 AM WINDOW DISPLAY DESIGNER Sexual Orientation Straight 08/31/2020 7: 44 AM WINDOW DISPLAY DESIGNER documented as of this encounter Medications at Time of Discharge Medication Sig Dispensed Refills Start Date End Date amlodipine-benazepril (LOTREL) 5-20 MG capsuleIndications:HTN (hypertension), benign Take 1 Cap by mouth daily. 90 Cap 1 01/16/2011 07/24/2011 doxazosin (CARDURA) 2 MG tabletIndications:HTN (hypertension), benign Take at HS. Take 1/2 tablet QD for the first 8 nights, then increase to 1 HS. 30 Tab 0 05/09/2011 05/23/2011 omeprazole (PRILOSEC) 20 MG capsuleIndications:GERD (gastroesophageal reflux disease) Take 1 Cap by mouth once daily. 30 Cap 2 05/09/2011 08/07/2011 omeprazole EC (PRILOSEC OTC) 20 MG tablet Take 20 mg by mouth daily before breakfast. 05/23/2011 simvastatin (ZOCOR) 20 MG tabletIndications:Hyperl ipidemia Take 1 Tab by mouth once daily. 30 Tab 5 05/10/2011 09/04/2011 documented as of this encounter Plan of Treatment Not on file documented as of this encounter Visit Diagnoses Diagnosis Nonspecific abnormal results of liver function study documented in this encounter
--- OUTSIDE RECORDS SUMMARY | 2024-09-06 20:29 | XMS_ITS | Encounter Summary ---
Author Organization [facility] Health Address [address] [place] [address] Care Team Providers Care Engineering Specialist Name Role Phone Unavailable Primary Care Provider Unavailabl e Reason for Visit * Reason Onset Date Comments Medication Clarification 05/17/2011 Encounter Details Date Type Department Care Team (Late st Contact Info) Description 05/17/2011 Telephone [facility] - Family Medicine [address] [place] [address] Jose Rust DO [address] [place], [place] [id number] Medication Clarification Social History Tobacco Use Types Packs/Day Years Used Date Smoking Tobacco: Former Cigarettes Q uit: 12/07/2010 Smokeless Tobacco: Never Alcohol Use Standard Drinks/Week Comments Not Asked 0 (1 standard drink = 0.6 oz pur e alcohol) Sex and Gender Information Value Date Recorded Sex Assigned at Male 08/31/2020 7:44 AM PEDIATRIC DIETICIAN Gender Identity Male 08/31/2020 7:44 AM PEDIATRIC DIETICIAN Sexual Orientation Straight 08/31/2020 7: 44 AM PEDIATRIC DIETICIAN documented as of this encounter Miscellaneous Notes * Telephone Encounter - Cori Dumont MA - 05/17/2011 5:16 PM CDT Pt aware ok to take vitamins and fish oil. * Telephone Encounter - Perla Martinez - 05/17/2011 5:14 PM CDT Per denny Fontaineay for patient to take vitamins and fish oil. * Telephone Encounter - Ramila Fields MA - 05/17/2011 3:56 PM CDT Pt spouse called office regarding patient. Pt is wanting to know if it is okay to take daily vitamin and fish oil in combination with other medications. Please advise. Allergies Allergen Reactions ??? Perry Inhibitors Cough documented in this encounter Plan of Treatment Not on file documented as of this encounter Visit Diagnoses Not on filedocumented in this encounter
--- OUTSIDE RECORDS SUMMARY | 2024-09-06 20:29 | XMS_ITS | Encounter Summary ---
Author Organization [facility] Address [address] [place] [address] Care Team Providers Care Water Fitness Instructor Name Role Phone Unavailable Primary Care Provider Unavailabl e Reason for Visit * Reason Onset Date Comments MEDICATION REFILL 09/05/2011 Encounter Details Date Type Department Care Team (Late st Contact Info) Description 09/05/2011 Refill [facility] Medical [facility] - Family Medicine [address] [place] [address] Jose Rust DO [address] [place] [address] MEDICATION REFILL Social History Tobacco Use Types Packs/Day Years Used Date Smoking Tobacco: Former Cigarettes Q uit: 12/07/2010 Smokeless Tobacco: Never Alcohol Use Standard Drinks/Week Comments Not Asked 0 (1 standard drink = 0.6 oz pur e alcohol) Sex and Gender Information Value Date Recorded Sex Assigned at Male 08/31/2020 7:44 AM FOOD TRAY ASSEMBLER Gender Identity Male 08/31/2020 7:44 AM FOOD TRAY ASSEMBLER Sexual Orientation Straight 08/31/2020 7: 44 AM FOOD TRAY ASSEMBLER documented as of this encounter Miscellaneous Notes * Telephone Encounter - Maddy Lopez - 09/05/2011 9:12 AM CST Dosage changed on Lotrel to 1 cap daily, due to patients prescription formulary. Called to Wendy, patients spouse notified. TRAY ASSEMBLER documented in this encounter Plan of Treatment Not on file documented as of this encounter Visit Diagnoses Not on filedocumented in this encounter
--- OUTSIDE RECORDS SUMMARY | 2024-09-06 20:29 | XMS_ITS | Encounter Summary ---
Author Organization [facility] Address [address] [place] [address] Care Team Providers Care Sap Bods Developer Name Role Phone Alf Khan DO Primary Care Provider Stephan rosa Encounter Details Date Type Department Care Team (Late st Contact Info) Description 04/08/2014 Orders Only [facility] - Family Medicine [address] [place] [address] Alf Khan DO Elevated glucose Social History Tobacco Use Types Packs/Day Years Used Date Smoking Tobacco: Former Cigarettes 1.5 25 0 12/07/1985 - 12/07/2010 Smokeless Tobacco: Never Alcohol Use Standard Drinks/Week Comments Yes 0 (1 standard drink = 0.6 oz pur e alcohol) Sex and Gender Information Value Date Recorded Sex Assigned at Male 08/31/2020 7:44 AM CORPORATE CLAIMS EXAMINER Gender Identity Male 08/31/2020 7:44 AM CORPORATE CLAIMS EXAMINER Sexual Orientation Straight 08/31/2020 7: 44 AM CORPORATE CLAIMS EXAMINER documented as of this encounter Progress Notes * Rafi Gonzalez - 04/14/2014 3:03 PM CDTQuick Note: Patient is informed of A1C * Izzy Galan MA - 04/14/2014 2:22 PM CDTQuick Note: I left message for patient to call office. * Alf Khan DO - 04/09/2014 2:58 PM CDTQuick Note: 5.9 A1c indicates early or pre DM Tx is low carb no sugar diet and weight loss. Some times losing weight will normalize BS documented in this encounter Plan of Treatment Not on file documented as of this encounter Procedures Procedure Name Priority Date/Time Associated Diagnosis Comments HEMOGLOBIN A1C Routine 04/08/2014 2:13 PM CDT Elevated glucose documented in this encounter Results * (ABNORMAL) HEMOGLOBIN A1C (04/08/2014 2:13 PM CDT) Hemoglobin A1c 5.9(H) 4.8 - 5.6 % [facility] ACCOUNT BILL Comment: ? . ? Increased risk for diabetes: 5.7 - 6.4 ? Diabetes: >6.4 ? Glycemic control for adults with diabetes: <7.0 Whole blood specimen (specimen) BLOOD SPECIMEN WITH EDTA / Unknown 04/08/2014 2:13 PM CDT 04/08/2014 6:42 PM CDT Narrative Resulting Agency Comment [facility] [address] ??[facility] [phone] Alf Khan DO LAB - CHEMISTRY [facility] Organization Address City/State/ZIP Co de Phone Number [facility] ACCOUNT BILL documented in this encounter Visit Diagnoses Diagnosis Elevated glucose- Primary Other abnormal glucose documented in this encounter Care Teams Sap Bods Developer Relationship Specialty Start Date End Date Alf Khan DO PCP - General Family Medicine 09/03/13 02/27/23 documented as of this encounter
--- OUTSIDE RECORDS SUMMARY | 2024-09-06 20:29 | XMS_ITS | Encounter Summary ---
Author Organization [facility] Address [address] [place] [address] Care Team Providers Care Wearing Apparel Assembler Name Role Phone Alf Khan DO Primary Care Provider Stephan rosa Reason for Visit * Reason Onset Date Comments Medication Request 07/09/2014 Encounter Details Date Type Department Care Team (Late st Contact Info) Description 07/09/2014 Telephone [facility] - Family [facility] [address] [place] [address] Alf Khan, DO Medication Request Social History Tobacco Use Types Packs/Day Years Used Date Smoking Tobacco: Former Cigarettes 1.5 25 0 12/07/1985 - 12/07/2010 Smokeless Tobacco: Never Alcohol Use Standard Drinks/Week Comments Yes 0 (1 standard drink = 0.6 oz pur e alcohol) social Sex and Gender Information Value Date Recorded Sex Assigned at Male 08/31/2020 7:44 AM PERSONAL COMPUTER NETWORK ENGINEER Gender Identity Male 08/31/2020 7:44 AM PERSONAL COMPUTER NETWORK ENGINEER Sexual Orientation Straight 08/31/2020 7: 44 AM PERSONAL COMPUTER NETWORK ENGINEER documented as of this encounter Functional Status [...] encounter Miscellaneous Notes * Telephone Encounter - Cinthia Brar MA - 07/09/2014 3:26 PM PERSONAL COMPUTER NETWORK ENGINEER Patient's informed. ONAL COMPUTER NETWORK ENGINEER * Telephone Encounter - Alf Khan DO - 07/09/2014 12:27 PM CST I am not sure what she is expecting I can't do anything for cold Sx and if he is worse than that heshould be seen iraida this time of yr lots of things going around It takes 7-8 days to fight off a cold Can take OTC med for 5-7 days when sick I have no magic ONAL COMPUTER NETWORK ENGINEER * Telephone Encounter - Cinthia Brar MA - 07/09/2014 10:14 AM PERSONAL COMPUTER NETWORK ENGINEER Patient's called and requesting a medication to be called out for Patient. Patient C/o; ear pain, cough, sinus pressure, off and on headache x 3 days. Denies; nausea, fever, diarrhea, abd pain, chills and body aches Patient has been taking OTC, Mucinex and Ibuprofen. Allergies Allergen Reactions ??? Perry Inhibitors Cough Please advise. ONAL COMPUTER NETWORK ENGINEER documented in this encounter Plan of Treatment Not on file documented as of this encounter Goals Goal Patient Goal Type Associated Problems Recent Progress Patient-Stated? Author Blood Pressure < 140/90 Blood Pressure 172/93(2022 8:59 AM CDT) No Zachary Moreno documented as of this encounter Visit Diagnoses Not on filedocumented in this encounter Care Teams Wearing Apparel Assembler Relationship Specialty Start Date End Date Alf Khan DO PCP - General Family Medicine 09/03/13 02/27/23 documented as of this encounter
--- OUTSIDE RECORDS SUMMARY | 2024-09-06 20:29 | XMS_ITS | Encounter Summary ---
Author Organization [facility] Address [address] [place] [address] Care Team Providers Care Medical Aides Teacher Name Role Phone Alf Khan DO Primary Care Provider Stephan rosa Reason for Visit * Reason Comments Refill Request Encounter Details Date Type Department Care Team (Late st Contact Info) Description 03/02/2015 Refill [facility] Medical [facility] - Family Medicine [address] [place] [address] Alf Khan, DO Refill Request Social History Tobacco Use Types Packs/Day Years Used Date Smoking Tobacco: Former Cigarettes 1.5 25 0 12/07/1985 - 12/07/2010 Smokeless Tobacco: Never Alcohol Use Standard Drinks/Week Comments Yes 0 (1 standard drink = 0.6 oz pur e alcohol) social Sex and Gender Information Value Date Recorded Sex Assigned at Male 08/31/2020 7:44 AM JAVASCRIPT PROGRAMMER Gender Identity Male 08/31/2020 7:44 AM JAVASCRIPT PROGRAMMER Sexual Orientation Straight 08/31/2020 7: 44 AM JAVASCRIPT PROGRAMMER documented as of this encounter Functional Status [...] encounter Miscellaneous Notes * Telephone Encounter - Etelvina Bonds LPN - 03/02/2015 6:50 PM CDT [place] Crockett Allergies Allergen Reactions ??? Perry Inhibitors Cough Requested Prescriptions Pending Prescriptions Disp Refills ??? valsartan (DIOVAN) 160 MG tablet [Pharmacy Med Name: VALSARTAN 160MG TABLETS] 30 Tab 0 Sig: TAKE 1 TABLET BY MOUTH DAILY Last Refill: 03/10/14 Last OV: 01/28/2015 Next OV:none documented in this encounter Plan of Treatment Not on file documented as of this encounter Goals Goal Patient Goal Type Associated Problems Recent Progress Patient-Stated? Author Blood Pressure < 140/90 Blood Pressure 172/93(2022 8:59 AM CDT) No Zachary Moreno documented as of this encounter Visit Diagnoses Not on filedocumented in this encounter Care Teams Medical Aides Teacher Relationship Specialty Start Date End Date Alf Khan DO PCP - General Family Medicine 09/03/13 02/27/23 documented as of this encounter
--- OUTSIDE RECORDS SUMMARY | 2024-09-06 20:29 | XMS_ITS | Encounter Summary ---
Author Organization [facility] Address [address] [place] [address] Care Team Providers Care Quarry Plug And Feather Driller Name Role Phone Unavailable Primary Care Provider Unavailabl e Reason for Visit * Reason Onset Date Comments MEDICATION REFILL 07/24/2011 Encounter Details Date Type Department Care Team (Late st Contact Info) Description 07/24/2011 Refill [facility] Medical [facility] - Family Medicine [address] [place] [address] Jose Rust DO [address] [place] [address] MEDICATION REFILL Social History Tobacco Use Types Packs/Day Years Used Date Smoking Tobacco: Former Cigarettes Q uit: 12/07/2010 Smokeless Tobacco: Never Alcohol Use Standard Drinks/Week Comments Not Asked 0 (1 standard drink = 0.6 oz pur e alcohol) Sex and Gender Information Value Date Recorded Sex Assigned at Male 08/31/2020 7:44 AM TRAVEL TRAILER COMPONENTS ASSEMBLER Gender Identity Male 08/31/2020 7:44 AM TRAVEL TRAILER COMPONENTS ASSEMBLER Sexual Orientation Straight 08/31/2020 7: 44 AM TRAVEL TRAILER COMPONENTS ASSEMBLER documented as of this encounter Miscellaneous Notes * Telephone Encounter - Perla Martinez - 07/24/2011 10:20 AM CST Rx approved and sent to pharmacy EL TRAILER COMPONENTS ASSEMBLER * Telephone Encounter - Liv Klein - 07/24/2011 10:15 AM CST Requested Prescriptions Pending Prescriptions Disp Refills ??? amlodipine-benazepril (LOTREL) 5-20 MG capsule 30 Cap Sig: Take 1 Cap by mouth once daily. Allergies Allergen Reactions ??? Perry Inhibitors Cough michael 05-23-11 Last refill 06-16-11 EL TRAILER COMPONENTS ASSEMBLER documented in this encounter Plan of Treatment Not on file documented as of this encounter Visit Diagnoses Diagnosis HTN (hypertension), benign- Primary Essential hypertension, benign documented in this encounter
--- OUTSIDE RECORDS SUMMARY | 2024-09-06 20:29 | XMS_ITS | Encounter Summary ---
Author Organization [facility] Address [address] [place] [address] Care Team Providers Care Construction Trades Contractor Name Role Phone Unavailable Primary Care Provider Unavailabl e Reason for Visit * Reason Onset Date Comments MEDICATION REFILL 01/16/2011 Encounter Details Date Type Department Care Team (Late st Contact Info) Description 01/16/2011 Refill [facility] - Family Medicine [address] [place] [address] Liv Gaines MD MEDICATION REFILL Social History Tobacco Use Types Packs/Day Years Used Date Smoking Tobacco: Every Day Alcohol Use Standard Drinks/Week Comments Not Asked 0 (1 standard drink = 0.6 oz pur e alcohol) Sex and Gender Information Value Date Recorded Sex Assigned at Male 08/31/2020 7:44 AM HUMAN CAPITAL CONSULTANT Gender Identity Male 08/31/2020 7:44 AM HUMAN CAPITAL CONSULTANT Sexual Orientation Straight 08/31/2020 7: 44 AM HUMAN CAPITAL CONSULTANT documented as of this encounter Plan of Treatment Not on file documented as of this encounter Visit Diagnoses Diagnosis HTN (hypertension), benign- Primary Essential hypertension, benign documented in this encounter
--- OUTSIDE RECORDS SUMMARY | 2024-09-06 20:29 | XMS_ITS | Encounter Summary ---
Author Organization [facility] Address [address] [place] [address] Care Team Providers Care Asphalt Plant Worker Name Role Phone Unavailable Primary Care Provider Unavailabl e Reason for Visit * Reason Onset Date Comments MEDICATION REFILL 08/06/2012 Encounter Details Date Type Department Care Team (Late st Contact Info) Description 08/06/2012 Refill [facility] - Family Medicine [address] [place] [address] Jose Rust DO [address] [place] [address] MEDICATION REFILL Social History Tobacco Use Types Packs/Day Years Used Date Smoking Tobacco: Former Cigarettes 1.5 25 0 12/07/1985 - 12/07/2010 Smokeless Tobacco: Never Alcohol Use Standard Drinks/Week Comments Yes 0 (1 standard drink = 0.6 oz pur e alcohol) Sex and Gender Information Value Date Recorded Sex Assigned at Male 08/31/2020 7:44 AM LITHOGRAPHED PLATE INSPECTOR Gender Identity Male 08/31/2020 7:44 AM LITHOGRAPHED PLATE INSPECTOR Sexual Orientation Straight 08/31/2020 7: 44 AM LITHOGRAPHED PLATE INSPECTOR documented as of this encounter Miscellaneous Notes * Telephone Encounter - Perla Martinez - 08/07/2012 1:57 PM CST Rx approved and sent to pharmacy OGRAPHED PLATE INSPECTOR * Telephone Encounter - Alyse Campbell V. - 08/06/2012 1:52 PM CST [place] Crockett Allergies Allergen Reactions ??? Perry Inhibitors Cough Requested Prescriptions Pending Prescriptions Disp Refills ??? pravastatin (PRAVACHOL) 40 MG tablet 30 Tab Sig: Take 1 Tab by mouth at bedtime. Last Refill:05/27/12 Last OV: 06/10/12 OGRAPHED PLATE INSPECTOR documented in this encounter Plan of Treatment Not on file documented as of this encounter Visit Diagnoses Diagnosis Hyperlipidemia- Primary Other and unspecified hyperlipidemia documented in this encounter
--- OUTSIDE RECORDS SUMMARY | 2024-09-06 20:29 | XMS_ITS | Encounter Summary ---
Author Organization [facility] Address [address] [place] [address] Care Team Providers Care Elevator Examiner Name Role Phone Alf hKan DO Primary Care Provider Stephan rosa Reason for Referral * Radiology Services - Closed Specialty Diagnoses / Procedures Referred By Jean sosa Referred To Contact Diagnoses Abdominal pain, RUQ (right upper quadrant) Nausea alone Procedures US ABDOMEN LIMITED Alf Khan DO [address] [place] [address] Referral ID Status Reason Start Date Expiration Date Visits Re quested Visits Authorized [id number] Closed 04/05/2014 10/02/2014 1 1 Reason for Visit * Radiology Services - Closed Specialty Diagnoses / Procedures Referred By Jean sosa Referred To Contact Diagnoses Abdominal pain, RUQ (right upper quadrant) Nausea alone Procedures US ABDOMEN LIMITED Alf Khan DO [address] [place] [address] Referral ID Status Reason Start Date Expiration Date Visits Re quested Visits Authorized [id number] Closed 04/05/2014 10/02/2014 1 1 Encounter Details Date Type Department Care Team (Latest Contact Info) Description 04/08/2014 8:20 AM CDT - 04/08/2014 11:59 PM CDT Hospital Encounter [facility] Imaging Services - Ultrasound [address] [place] [id number] Alf Khan DO Discharge Disposition: Home or Self Care Social History Tobacco Use Types Packs/Day Years Used Date Smoking Tobacco: Former Cigarettes 1.5 25 0 12/07/1985 - 12/07/2010 Smokeless Tobacco: Never Alcohol Use Standard Drinks/Week Comments Yes 0 (1 standard drink = 0.6 oz pur e alcohol) Sex and Gender Information Value Date Recorded Sex Assigned at Male 08/31/2020 7:44 AM SOIL EXPERT Gender Identity Male 08/31/2020 7:44 AM SOIL EXPERT Sexual Orientation Straight 08/31/2020 7: 44 AM SOIL EXPERT documented as of this encounter Medications at [...] for Pain. 60 Tab 3 09/03/2013 06/24/2014 hyoscyamine (LEVSIN/SL) 0.125 MG ODT tablet Dissolve 1-2 Tabs under the tongue every 4 hours as needed for Spasms. 120 Tab 5 04/05/2014 04/15/2014 omeprazole (PRILOSEC) 20 MG capsuleIndications:GERD (gastroesophageal reflux [...] of this encounter Progress Notes * Izzy Galan MA - 04/08/2014 12:49 PM CDTQuick Note: Patient informed. He states he is still having pain. He would like to proceed with HIDA scan. Message sent to referrals. * Alf Khan DO - 04/08/2014 10:44 AM CDTQuick Note: No gall stones has fatty liver. If still having pains needs to get HIDA scan GB please documented in this encounter Plan of Treatment Not on file documented as of this encounter Procedures Procedure Name Priority Date/Time Associated Diagnosis Comments US ABDOMEN LIMITED Routine 04/08/2014 8: 56 AM CDT Abdominal pain, RUQ (right upper quadrant) Nausea alone documented in this encounter Results * US ABDOMEN LIMITED (04/08/2014 8:56 AM CDT) Anatomical Region Laterality Modality Abdomen Ultrasound 04/08/2014 [...] Marie Elder on 04/08/2014 9:28 AM Alf ARCHER ORDERABLES documented in this encounter Visit Diagnoses Diagnosis Abdominal pain, RUQ (right upper quadrant) Abdominal pain, right upper quadrant Nausea alone documented in this encounter Care Teams Elevator Examiner Relationship Specialty Start Date End Date Alf Khan DO PCP - General Family Medicine 09/03/13 02/27/23 documented as of this encounter
--- OUTSIDE RECORDS SUMMARY | 2024-09-06 20:29 | XMS_ITS | Encounter Summary ---
Author Organization [facility] Address [address] [place] [address] Care Team Providers Care Entry Level Sales Consultant Name Role Phone Alf Khan DO Primary Care Provider Stephan rosa Reason for Visit * Reason Onset Date Comments MEDICATION REFILL 03/10/2014 Encounter Details Date Type Department Care Team (Late st Contact Info) Description 03/10/2014 Refill [facility] - Family Medicine [address] [place] [address] Alf Khan DO MEDICATION REFILL Social History Tobacco Use Types Packs/Day Years Used Date Smoking Tobacco: Former Cigarettes 1.5 25 0 12/07/1985 - 12/07/2010 Smokeless Tobacco: Never Alcohol Use Standard Drinks/Week Comments Yes 0 (1 standard drink = 0.6 oz pur e alcohol) Sex and Gender Information Value Date Recorded Sex Assigned at Male 08/31/2020 7:44 AM PARTY PLAN SALES HOST/HOSTESS Gender Identity Male 08/31/2020 7:44 AM PARTY PLAN SALES HOST/HOSTESS Sexual Orientation Straight 08/31/2020 7: 44 AM PARTY PLAN SALES HOST/HOSTESS documented as of this encounter Miscellaneous Notes * Telephone Encounter - Izzy Galan MA - 04/08/2014 12:56 PM CDTQuick Note: Patient informed. I tried to add A1C however they could not. Patient will go back for A1C. Lab ordered. * Telephone Encounter - Alf Khan DO - 04/06/2014 7:59 AM CDTQuick Note: Chol is ok 172 HDL low 34 trigs still high 393 Cont as is get 6 mo pravachol rf re ck 6 mo Low fat diet exercise as well Glucose 111 he is going to need an A1c to see if BS is up like early DM * Telephone Encounter - Andrea Galaviz MA - 03/10/2014 1:30 PM CDT is aware and will check with insurance company and check with work schedule and get labs done * Telephone Encounter - Alf Khan DO - 03/10/2014 1:17 PM CDT Needs lipid cmp for pravastatin can rf 1 x * Telephone Encounter - Raven Denise MA - 03/10/2014 10:53 AM CDT [place] Corckett Requested Prescriptions Pending Prescriptions Disp Refills ??? pravastatin (PRAVACHOL) 40 MG tablet 30 Tab Sig: Take 1 Tab by mouth at bedtime. ??? valsartan (DIOVAN) 160 MG tablet 30 Tab Sig: Take 1 Tab by mouth once daily. Allergies Allergen Reactions ??? Perry Inhibitors Cough Last OV- 12-21-13 Last Refill- Diovan 08-05-13 #30x5 Pravachol 12-01-13 #30x2 documented in this encounter Plan of Treatment Not on file documented as of this encounter Procedures Procedure Name Priority Date/Time Associated Diagnosis Comments LIPID PROFILE W TCHOL/HDL Routine 04/05/2014 3:40 PM CDT Hyperlipidemia HTN (hypertension), benign COMPREHENSIVE METABOLIC PANEL Routine 04/05/2014 3:40 PM CDT Hyperlipidemia HTN (hypertension), benign documented in this encounter Results * (ABNORMAL) COMPREHENSIVE METABOLIC PANEL (04/05/2014 3:40 PM CDT) Glucose 111(H) 65 - 99 mg/dL [facility] ACCOUNT BILL BUN 12 6 - 24 mg/dL [facility] ACCOUNT BILL Creatinine 0.65(L) 0.76 - 1.27 mg/dL [facility] ACCOUNT BILL eGFR by MDRD 115 >59 mL/min/1.7 3 [facility] ACCOUNT BILL eGFR by MDRD 133 >59 mL/min/1.7 3 [facility] ACCOUNT BILL BUN/Creatinine Ratio 18 9 - 20 [facility] ACCOUNT BILL Sodium 139 134 - 144 mmol/L [facility] ACCOUNT BILL Potassium 3.9 3.5 - 5.2 mmol/L [facility] ACCOUNT BILL Chloride 100 97 - 108 mmol/L [facility] ACCOUNT BILL CO2 26 18 - 29 mmol/L [facility] ACCOUNT BILL Calcium 9.4 8.7 - 10.2 mg/dL [facility] ACCOUNT BILL Protein Total 6.8 6.0 - 8.5 g/dL [facility] ACCOUNT BILL Albumin 4.3 3.5 - 5.5 g/dL [facility] ACCOUNT BILL Globulin Total 2.5 1.5 - 4.5 g/dL [facility] ACCOUNT BILL Albumin/Globulin Ratio 1.7 1.1 - 2.5 [facility] ACCOUNT BILL Bilirubin Total 0.4 0.0 - 1.2 mg/dL [facility] ACCOUNT BILL Alkaline Phosphatase 90 39 - 117 IU/L [facility] ACCOUNT BILL AST 34 0 - 40 IU/L [facility] ACCOUNT BILL ALT 27 0 - 44 IU/L [facility] ACCOUNT BILL Blood specimen (specimen) BLOOD SPECIMEN / Unknown 04/05/2014 3:40 PM CDT 04/05/2014 6:40 PM CDT Narrative Resulting Agency Comment [facility] [address] ??[facility] access hospital [id number] Alf Khan DO LAB - CHEMISTRY [facility] ACCOUNT BILL * (ABNORMAL) LIPID PROFILE W TCHOL/HDL (PO REF LAB) (04/05/2014 3:40 PM CDT) Cholesterol 172 100 - 199 mg/dL [facility] ACCOUNT BILL Triglycerides 393(H) 0 - 149 mg/dL [facility] ACCOUNT BILL HDL Cholesterol 34(L) >39 mg/dL [facility] ACCOUNT BILL Comment: According to ATP-III Guidelines, HDL-C >59 mg/dL is considered a negative risk factor for CHD. VLDL Calculated 79(H) 5 - 40 mg/dL [facility] ACCOUNT BILL LDL Calculated 59 0 - 99 mg/dL [facility] ACCOUNT BILL Comment NOT NEEDED [facility] ACCOUNT BILL Comment:Ancillary determined the test is not needed Cholesterol/HDL Ratio 5.1(H) 0.0 - 5.0 ratio units [facility] ACCOUNT BILL BLOOD SPECIMEN / Unknown 04/05/2014 3:40 PM CDT 04/05/2014 6:40 PM CDT Narrative Resulting Agency Comment [facility] [address] ??Critical access hospital [phone] Alf Khan DO LAB - CHEMISTRY LI[facility]AB[facility] WI[facility] Organization Address City/State/ZIP Co de Phone Number [facility] ACCOUNT BILL documented in this encounter Visit Diagnoses Diagnosis Hyperlipidemia Other and unspecified hyperlipidemia HTN (hypertension), benign Essential hypertension, benign documented in this encounter Care Teams Entry Level Sales Consultant Relationship Specialty Start Date End Date Alf Khan DO PCP - General Family Medicine 09/03/13 02/27/23 documented as of this encounter
--- OUTSIDE RECORDS SUMMARY | 2024-09-06 20:29 | XMS_ITS | Encounter Summary ---
Author Organization [facility] Address [address] [place] [address] Care Team Providers Care Senior Software Engineering Manager Name Role Phone Unavailable Primary Care Provider Unavailabl e Reason for Visit * Reason Onset Date Comments MEDICATION REFILL 06/26/2013 Encounter Details Date Type Department Care Team (Late st Contact Info) Description 06/26/2013 Refill [facility] - Family Medicine [address] [place] [address] Jose Rust DO [address] [place] [address] MEDICATION REFILL Social History Tobacco Use Types Packs/Day Years Used Date Smoking Tobacco: Former Cigarettes 1.5 25 0 12/07/1985 - 12/07/2010 Smokeless Tobacco: Never Alcohol Use Standard Drinks/Week Comments Yes 0 (1 standard drink = 0.6 oz pur e alcohol) Sex and Gender Information Value Date Recorded Sex Assigned at Male 08/31/2020 7:44 AM HOUSEKEEPING AIDE Gender Identity Male 08/31/2020 7:44 AM HOUSEKEEPING AIDE Sexual Orientation Straight 08/31/2020 7: 44 AM HOUSEKEEPING AIDE documented as of this encounter Miscellaneous Notes * Telephone Encounter - Raven Denise MA - 06/26/2013 12:13 PM CDT Trenton Crockett Requested Prescriptions Pending Prescriptions Disp Refills ??? omeprazole (PRILOSEC) 20 MG capsule 30 Cap Sig: Take 1 Cap by mouth once daily. Allergies Allergen Reactions ??? Perry Inhibitors Cough Last OV- 04-10-13 Last Refill- 05-19-13 documented in this encounter Plan of Treatment Not on file documented as of this encounter Visit Diagnoses Diagnosis GERD (gastroesophageal reflux disease)- Primary Esophageal reflux documented in this encounter
--- OUTSIDE RECORDS SUMMARY | 2024-09-06 20:29 | XMS_ITS | Encounter Summary ---
Author Organization [facility] Address [address] [place] [address] Care Team Providers Care Accounts Supervisor Name Role Phone Unavailable Primary Care Provider Unavailabl e Reason for Visit * Reason Onset Date Comments MEDICATION REFILL 03/25/2013 Encounter Details Date Type Department Care Team (Late st Contact Info) Description 03/25/2013 Refill [facility] Medical [facility] - Family Medicine [address] [place] [address] Jose Rust DO [address] [place] [address] MEDICATION REFILL Social History Tobacco Use Types Packs/Day Years Used Date Smoking Tobacco: Former Cigarettes 1.5 25 0 12/07/1985 - 12/07/2010 Smokeless Tobacco: Never Alcohol Use Standard Drinks/Week Comments Yes 0 (1 standard drink = 0.6 oz pur e alcohol) Sex and Gender Information Value Date Recorded Sex Assigned at Male 08/31/2020 7:44 AM REMOTE ADVISOR Gender Identity Male 08/31/2020 7:44 AM REMOTE ADVISOR Sexual Orientation Straight 08/31/2020 7: 44 AM REMOTE ADVISOR documented as of this encounter Miscellaneous Notes * Telephone Encounter - Rafi Gonzalez - 03/27/2013 9:41 AM CDT Patients is informed. * Telephone Encounter - Jose Rust DO - 03/26/2013 9:53 PM CDT Mei approved x 3 months. Need to see in 3 months - fasting. * Telephone Encounter - Alyse Campbell V. - 03/25/2013 12:41 PM CDT [place]on Dodge White Allergies Allergen Reactions ??? Perry Inhibitors Cough Requested Prescriptions Pending Prescriptions Disp Refills ??? valsartan (DIOVAN) 80 MG tablet 30 Tab Sig: Take 1 Tab by mouth once daily. Last Refill:11/25/12 + 1rf Last OV: 11/18/12 documented in this encounter Plan of Treatment Not on file documented as of this encounter Visit Diagnoses Not on filedocumented in this encounter
--- OUTSIDE RECORDS SUMMARY | 2024-09-06 20:29 | XMS_ITS | Encounter Summary ---
Author Organization [facility] Address [address] [place] [address] Care Team Providers Care Poultry Husbandman Name Role Phone Alf Khan DO Primary Care Provider Stephan rosa Reason for Visit * Reason Onset Date Comments Nose Problem 03/26/2014 Encounter Details Date Type Department Care Team (Late st Contact Info) Description 03/26/2014 Telephone [facility] - Family Medicine [address] [place] [address] Alf Khan DO Nose Problem Social History Tobacco Use Types Packs/Day Years Used Date Smoking Tobacco: Former Cigarettes 1.5 25 0 12/07/1985 - 12/07/2010 Smokeless Tobacco: Never Alcohol Use Standard Drinks/Week Comments Yes 0 (1 standard drink = 0.6 oz pur e alcohol) Sex and Gender Information Value Date Recorded Sex Assigned at Male 08/31/2020 7:44 AM INDUSTRIAL REGISTERED NURSE Gender Identity Male 08/31/2020 7:44 AM INDUSTRIAL REGISTERED NURSE Sexual Orientation Straight 08/31/2020 7: 44 AM INDUSTRIAL REGISTERED NURSE documented as of this encounter Miscellaneous Notes * Telephone Encounter - Liv Vasquez - 03/31/2014 9:54 AM CDT Ordered referral to Dr. Archuleta. Left detailed message on patient's answering machine with 's contact information. * Telephone Encounter - Alf Khan DO - 03/26/2014 4:[address] Rajput * Telephone Encounter - Raven Denise MA - 03/26/2014 1:25 PM CDT Pts called stating pt is currently having episodes again of everything smelling moldy or rotten. Pt had this problem previously but Dr Rust could not find out what was causing this problem. Pt is wanting to know if he can get a referral to an ENT for evaluation documented in this encounter Plan of Treatment Not on file documented as of this encounter Visit Diagnoses Diagnosis Smell disturbance- Primary Disturbances of sensation of smell and taste documented in this encounter Care Teams Poultry Husbandman Relationship Specialty Start Date End Date Alf Khan DO PCP - General Family Medicine 09/03/13 02/27/23 documented as of this encounter
--- OUTSIDE RECORDS SUMMARY | 2024-09-06 20:29 | XMS_ITS | Encounter Summary ---
Author Organization [facility] Address [address] [place] [address] Care Team Providers Care Precision Structural Metal Fitter Name Role Phone Unavailable Primary Care Provider Trang e Encounter Details Date Type Department Care Team (Latest Contact Info) Description 05/17/2011 8:23 AM CDT - 05/17/2011 11:59 PM CDT Hospital Encounter [facility] Imaging Services - Ultrasound [address] [place] [id number] Jose Rust DO [address] [place] [address] Discharge Disposition: Home or Self Care Social History Tobacco Use Types Packs/Day Years Used Date Smoking Tobacco: Former Cigarettes Q uit: 12/07/2010 Smokeless Tobacco: Never Alcohol Use Standard Drinks/Week Comments Not Asked 0 (1 standard drink = 0.6 oz pur e alcohol) Sex and Gender Information Value Date Recorded Sex Assigned at Male 08/31/2020 7:44 AM SUPPLY COORDINATOR Gender Identity Male 08/31/2020 7:44 AM SUPPLY COORDINATOR Sexual Orientation Straight 08/31/2020 7: 44 AM SUPPLY COORDINATOR documented as of this encounter Medications [...] Associated Diagnosis Comments US ABDOMEN LIMITED Routine 05/17/2011 8: 46 AM CDT Elevated liver enzymes documented in this encounter Results * US [...] cm. IMPRESSION Hepatic steatosis, otherwise unremarkable. Jose ARCHER ORDERABLES documented in this encounter Visit Diagnoses Diagnosis Elevated liver enzymes Other nonspecific abnormal serum enzyme levels documented in this encounter
--- OUTSIDE RECORDS SUMMARY | 2024-09-06 20:29 | XMS_ITS | Encounter Summary ---
Author Organization [facility] Address [address] [place] [address] Care Team Providers Care Spring Coiler Hand Name Role Phone Alf Khan DO Primary Care Provider Stephan rosa Reason for Referral * Radiology Services - Closed Specialty Diagnoses / Procedures Referred By Jean sosa Referred To Contact Diagnoses Abdominal pain, RUQ (right upper quadrant) Nausea alone Procedures US ABDOMEN LIMITED Alf Khan DO [place] [address] Referral ID Status Reason Start Date Expiration Date Visits Re quested Visits Authorized [id number] Closed 04/05/2014 10/02/2014 1 1 Reason for Visit * Reason Comments Nausea patient states he staton s nausea now since Saturday. Patient got shooting pains in his stomach off and on while working. States he is very sore in lower abdomen. No diarrhea, No vomiting. But has history of hernia. Encounter Details Date Type Department Care Team (Late st Contact Info) Description 04/05/2014 2:45 PM CDT Office Visit [facility] - Family Medicine [address] [place] [address] Alf Khan DO IBS (irritable bowel syndrome) (Primary Dx); Abdominal pain, generalized; Abdominal pain, RUQ (right upper quadrant); Nausea alone; Diarrhea; Screening PSA (prostate specific antigen) Social History Tobacco Use Types Packs/Day Years Used Date Smoking Tobacco: Former Cigarettes 1.5 25 0 12/07/1985 - 12/07/2010 Smokeless Tobacco: Never Tobacco Cessation:Ready to Q uit: No; Counseling Given: Yes Alcohol Use Standard Drinks/Week Comments Yes 0 (1 standard drink = 0.6 oz pur e alcohol) Sex and Gender Information Value Date Recorded Sex Assigned at Male 08/31/2020 7:44 AM DATABASE ADMINISTRATION PROJECT MANAGER Gender Identity Male 08/31/2020 7:44 AM DATABASE ADMINISTRATION PROJECT MANAGER Sexual Orientation Straight 08/31/2020 7: 44 AM DATABASE ADMINISTRATION PROJECT MANAGER documented as of this encounter Last Filed Vital Signs Vital Sign Reading Time Taken Comments Blood Pressure 162/92 04/05/2014 2:57 PM CDT Pulse 72 04/05/2014 2:57 PM CDT Temperature - - Respiratory Rate - - Oxygen Saturation - - Inhaled Oxygen Concentration - - Weight 119.3 kg (263 lb) 04/05/2014 2:57 PM CDT Height 180.3 cm (5' 11 ) 04/05/2014 2:57 PM CDT Body Mass Index 36.68 04/05/2014 2:57 PM CDT documented in this encounter Patient Instructions * Patient Instructions* Zachary Moreno - 04/05/2014 2:59 PM CDT Caring for Your High Blood [...] Where can I go for more information? [employer] National Center: http://www.americanheart.org 1. In the top header, click ???Conditions?? . 2. In the top header, click ???high blood pressure.?? 3. For a printable blood pressure tracker, scroll toward the bottom of the page to Related Tools, and click ???HBP Trackers.?? 2-082-ZKH-USA-1 or ( ) National Heart, Lung and Blood Hi[place]: http://www.nhlbi.nih.gov/health/infoctr/index.htm documented in this encounter Progress Notes * Izzy Galan MA - 04/08/2014 12:57 PM CDTQuick Note: Patient informed. * Alf Khan DO - 04/06/2014 7:52 AM CDTQuick Note: PSA normal * Alf Khan DO - 04/05/2014 6:58 PM CDT Office Visit, Established Patient, [id number] HISTORY: CC & HPI: Trenton Crockett is a 48 y.o. male established patient, here for: Chief Complaint Patient presents with ??? Nausea patient states he has nausea now since Saturday. Patient got shooting pains in his stomach off and on while working. States he is very sore in lower abdomen. No diarrhea, No vomiting. But has historyof hernia. HPI: has nausea and abdominal pain and bloating. Was worse after a greasy meal 1 x. Has episodes where he eats and has abd cramping and loose bowels within a few minutes of eating. No F,C, and does not feel ill. No sick contacts and has not tried and OTC meds. Does have GERD as well and uses prilosec and controls this well no SE from med He is scared of any type of cancer his mother of lung CA when she was 45 yo Needs chol re ck on pravachol no muscle pains or SE from med BP is borderline and he is using healthy lifestyle changes to Tx this at present Patient Active Problem List Diagnosis Date Noted ??? BPH (benign prostatic hypertrophy) 06/10/2012 ??? Need for influenza vaccination 05/23/2011 ??? Hepatic steatosis 05/18/2011 ??? HTN (Hypertension), Benign 06/16/2009 ??? Hyperlipidemia 01/08/2009 ??? Arthritis 01/08/2009 Outpatient Prescriptions Prior to Visit Medication Sig Dispense Refill ??? pravastatin (PRAVACHOL) 40 MG tablet Take 1 Tab by mouth at bedtime. 30 Tab 0 ??? valsartan (DIOVAN) 160 MG [...] mouth once daily. 30 Cap 11 ??? levofloxacin (LEVAQUIN) 500 MG tablet Take 1 Tab by mouth once daily. 10 Tab 0 ??? predniSONE (DELTASONE) 10 MG tablet 4 qd x 2 days, pc then 1 less pill every 2 days until gone 20 Tab 0 No facility-administered medications prior to [...] No family history on file. EXAM BP: 162/92 Pulse: 72 Wt: 119.296 kg (263 lb) BMI: 36.7 kg/m2 FiO2: General appearance - alert, well [...] or cyanosis, no pedal edema noted ASSESSMENT: ICD-9-CM 1. IBS (irritable bowel syndrome) 564.1 2. Abdominal pain, generalized 789.07 3. Abdominal pain, RUQ (right upper quadrant) 789.01 US ABDOMEN LIMITED 4. Nausea alone 787.02 US ABDOMEN LIMITED 5. Diarrhea 787.91 6. Screening PSA (prostate specific antigen) V76.44 PROSTATE SPECIFIC ANTIGEN SCREEN PLAN: Orders Placed This Encounter ??? US ABDOMEN LIMITED [facility] Imaging Outpatient registration [id number] Central scheduling [phone] Standing Status: Future Number of Occurrences: Standing Expiration Date: 04/05/2015 Order Specific Question: Exam to be performed? Answer: Per Radiologist protocol ??? PROSTATE SPECIFIC ANTIGEN SCREEN ??? hyoscyamine (LEVSIN/SL) 0.125 MG ODT tablet Sig: Dissolve 1-2 Tabs under the tongue every 4 hours as needed for Spasms. Dispense: 120 Tab Refill: 5 Medications Discontinued During This Encounter Medication Reason ??? levofloxacin (LEVAQUIN) 500 MG tablet ??? predniSONE (DELTASONE) 10 MG tablet Current Outpatient Prescriptions Medication Sig Dispense Refill ??? hyoscyamine (LEVSIN/SL) 0.125 MG ODT tablet Dissolve 1-2 Tabs under the tongue every 4 hours asneeded for Spasms. 120 Tab 5 ??? pravastatin (PRAVACHOL) 40 MG tablet Take 1 Tab by mouth at bedtime. 30 Tab 0 ??? valsartan (DIOVAN) 160 MG [...] No current facility-administered medications for this visit. BP Readings from Last 3 Encounters: 04/05/14 162/92 12/21/13 136/84 12/01/13 147/92 Told sounds like IBS will get US GB and has colonoscopy set up in 10 days. May need HIDA scan if USneg. SE of meds discussed with patient and best way to take medication. All questions answered. Continue lifestyle changes for BP if it does not come down or goes higher will need to Tx with meds Return to office in 6 months. Patient instructed to call with any concerns or problems. * Alexi Perez - 04/05/2014 3:35 PM CDT Patient scheduled for US Abd Ltd at [facility] Imaging on 04/08/2014 at 8:40 am. Patient aware of date, time, location and prep. documented in this encounter Plan of Treatment Not on file documented as of this encounter Procedures Procedure Name Priority Date/Time Associated Diagnosis Comments PROSTATE SPECIFIC ANTIGEN SCREEN Routine 04/05/2014 3:41 PM CDT Screening PSA (prostate specific antigen) documented in this encounter Results * US [...] AM Alf Khan DO US ORDERABLES * PROSTATE SPECIFIC ANTIGEN SCREEN (04/05/2014 3:41 PM CDT) PSA 1.5 0.0 - 4.0 ng/mL [facility] ACCOUNT BILL Comment: [employer] ECLIA methodology. ? . According to the [employer], Serum PSA should decrease and [...] specimen (specimen) BLOOD SPECIMEN / Unknown 04/05/2014 3:41 PM CDT 04/05/2014 6:40 PM CDT Narrative Resulting Agency Comment [facility] [address] [facility] [facility] ??[facility] [phone] Alf Khan DO LAB - CHEMISTRY LIZABETH [place] Organization Address City/State/ZIP Co de Phone Number [facility] ACCOUNT BILL documented in this encounter Visit Diagnoses Diagnosis IBS (irritable bowel syndrome)- Primary Irritable bowel syndrome Abdominal pain, generalized Abdominal pain, RUQ (right upper quadrant) Abdominal pain, right upper quadrant Nausea alone Diarrhea Screening PSA (prostate specific antigen) Special screening for malignant neoplasm of prostate Abdominal pain, RUQ (right upper quadrant) Abdominal pain, right upper quadrant Nausea alone documented in this encounter Care Teams Spring Coiler Hand Relationship Specialty Start Date End Date Alf Khan DO PCP - General Family Medicine 09/03/13 02/27/23 documented as of this encounter
--- OUTSIDE RECORDS SUMMARY | 2024-09-06 20:29 | XMS_ITS | Encounter Summary ---
Author Organization [facility] Health Address [address] [place] [address] Care Team Providers Care Eye Glass Frame Polisher Name Role Phone Unavailable Primary Care Provider Unavailabl e Reason for Visit * Reason Onset Date Comments MEDICATION REFILL 08/05/2013 Encounter Details Date Type Department Care Team (Late st Contact Info) Description 08/05/2013 Refill [facility] - Family Medicine [address] [place] [address] Jose Rust DO [address] [place] [address] MEDICATION REFILL Social History Tobacco Use Types Packs/Day Years Used Date Smoking Tobacco: Former Cigarettes 1.5 25 0 12/07/1985 - 12/07/2010 Smokeless Tobacco: Never Alcohol Use Standard Drinks/Week Comments Yes 0 (1 standard drink = 0.6 oz pur e alcohol) Sex and Gender Information Value Date Recorded Sex Assigned at Male 08/31/2020 7:44 AM REMEDIATION PROJECT ENGINEER Gender Identity Male 08/31/2020 7:44 AM REMEDIATION PROJECT ENGINEER Sexual Orientation Straight 08/31/2020 7: 44 AM REMEDIATION PROJECT ENGINEER documented as of this encounter Miscellaneous Notes * Telephone Encounter - Izzy Galan MA - 08/05/2013 10:20 AM CST Trenton Crockett Allergies Allergen Reactions ??? Perry Inhibitors Cough Requested Prescriptions Pending Prescriptions Disp Refills ??? valsartan (DIOVAN) 160 MG tablet 30 Tab Sig: Take 1 Tab by mouth once daily. Last Refill-04/10/13 #30 r2 Last OV-04/10/13 DIATION PROJECT ENGINEER documented in this encounter Plan of Treatment Not on file documented as of this encounter Visit Diagnoses Diagnosis HTN (hypertension), benign- Primary Essential hypertension, benign documented in this encounter
--- OUTSIDE RECORDS SUMMARY | 2024-09-06 20:29 | XMS_ITS | Encounter Summary ---
Author Organization [facility] Health Address [address] [place] [address] Care Team Providers Care Wholesale Account Executive Name Role Phone Alf Khan DO Primary Care Provider Stephan rosa Encounter Details Date Type Department Care Team (Latest Contact Info) Description 08/17/2015 3:50 PM CLAIMS INVESTIGATOR - 08/17/2015 11:59 PM CLAIMS INVESTIGATOR Hospital Encounter [facility] [address] [place] [address] Cat Gonzalez, CPR AMBULANCE DRIVER-[address] [phone] Discharge Disposition: Home or Self Care Social History Tobacco Use Types Packs/Day Years Used Date Smoking Tobacco: Former Cigarettes 1.5 25 0 12/07/1985 - 12/07/2010 Smokeless Tobacco: Never Alcohol Use Standard Drinks/Week Comments Yes 0 (1 standard drink = 0.6 oz pur e alcohol) social Sex and Gender Information Value Date Recorded Sex Assigned at Male 08/31/2020 7:44 AM CLAIMS INVESTIGATOR Gender Identity Male 08/31/2020 7:44 AM CLAIMS INVESTIGATOR Sexual Orientation Straight 08/31/2020 7: 44 AM CLAIMS INVESTIGATOR documented as of this encounter Functional Status [...] as needed. 100 Cap 5 06/24/2014 01/22/2017 hydrocodone-acetaminoph en (NORCO) 7.5-325 MG tablet Take 1 Tab by mouth every 4 hours as needed for Pain 120 Tab 0 08/17/2015 07/23/2016 omeprazole (PRILOSEC) 20 MG capsule TAKE 1 CAPSULE BY MOUTH DAILY 30 Cap 0 08/12/2015 10/11/2015 pravastatin (PRAVACHOL) 40 MG tabletIndications:Hyper lipidemia Take 1 tablet by mouth at bedtime. 30 tablet 5 04/08/2014 04/08/2017 tamsulosin CR 24hr (FLOMAX) 0.4 MG capsuleIndications:BPH (benign prostatic hypertrophy) Take 1 Cap by mouth once daily. Take 30 minutes after a meal at the same time each day. 30 Cap 11 11/15/2014 01/22/2017 valsartan (DIOVAN) 160 MG tablet TAKE 1 TABLET BY MOUTH DAILY 30 Tab 5 03/02/2015 10/19/2015 documented as of this encounter Progress Notes * Idania Cancino - 08/18/2015 9:07 AM CSTQuick Note: Pt informed MS INVESTIGATOR * Alf Khan DO - 08/17/2015 5:32 PM CSTQuick Note: Just shows some arthritic changes to L 5 vertabrae discs ok this is minor does nto explain pain so hopefully therapy will help may be muscular MS INVESTIGATOR documented in this encounter Plan of Treatment Not on file documented as of this encounter Goals Goal Patient Goal Type Associated Problems Recent Progress Patient-Stated? Author Blood Pressure < 140/90 Blood Pressure 172/93(2022 8:59 AM CDT) No Josh Zachary Cookrett documented as of this encounter Procedures Procedure Name Priority Date/Time Associated Diagnosis Comments XR LUMBAR SPINE 4VW OR MORE Routine 08/17/2015 4:05 PM CLAIMS INVESTIGATOR Bilateral low back pain without sciatica documented in this encounter Results * XR LUMBAR SPINE 4+ VW (08/17/2015 4:05 PM CLAIMS INVESTIGATOR) Anatomical Region Laterality Modality Spine Radiographic Nataliya ging 08/17/2015 4:11 PM CLAIMS INVESTIGATOR Impressions 08/17/2015 4:12 PM CLAIMS INVESTIGATOR No acute osseous abnormality Degenerative changes Narrative 08/17/2015 4:12 PM CLAIMS INVESTIGATOR Lumbar spine 5 views Indication: Low back [...] documented in this encounter Visit Diagnoses Diagnosis Bilateral low back pain without sciatica documented in this encounter Care Teams Wholesale Account Executive Relationship Specialty Start Date End Date Alf Khan DO PCP - General Family Medicine 09/03/13 02/27/23 documented as of this encounter
--- OUTSIDE RECORDS SUMMARY | 2024-09-06 20:29 | XMS_ITS | Encounter Summary ---
Author Organization [facility] Address [address] [place] [address] Care Team Providers Care Outsole Leveler Name Role Phone Alf Khan DO Primary Care Provider Stephan rosa Reason for Visit * Auth/Cert - Closed Specialty Diagnoses / Procedures Referred By Jean sosa Referred To Contact Diagnoses Abdominal pain Procedures COLONOSCOPY Referral ID Status Reason Start Date Expiration Date Visits Re quested Visits Authorized [id number] Closed 1 1 Encounter Details Date Type Department Care Team (Late st Contact Info) Description 04/15/2014 8:30 AM CDT - 04/15/2014 9:00 AM CDT Surgery [facility] - Endoscopy Services [address] [place] [id number] Astrid Rios DO [address] [place] [id number] COLONOSCOPY Surgery Details Date/Time Status Location OR Service Patient Class Case Class Case Type Trauma Case? 04/15/2014 8:30 AM Posted [facility] ENDO 01 Gastroenterology Surgery Day Care Elective > 5 days Panel 1 Procedure LRB Anes Op Region Wound Class Comments COLONOSCOPY MAC Clean Contaminated Surgeon Surgeon Role Service Panel Astrid Rios DO Primary Gastroenterology 1 documented in this encounter Social History Tobacco Use Types Packs/Day Years Used Date Smoking Tobacco: Former Cigarettes 1.5 25 0 12/07/1985 - 12/07/2010 Smokeless Tobacco: Never Alcohol Use Standard Drinks/Week Comments Yes 0 (1 standard drink = 0.6 oz pur e alcohol) social Sex and Gender Information Value Date Recorded Sex Assigned at Male 08/31/2020 7:44 AM LITERACY TUTOR Gender Identity Male 08/31/2020 7:44 AM LITERACY TUTOR Sexual Orientation Straight 08/31/2020 7: 44 AM LITERACY TUTOR documented as of this encounter Last Filed [...] Case Report Surgical Pathology Report ? Case: [id number] ? Authorizing Provider: ??Astrid Rios DO ?Collected: ? 04/15/2014 08:49 AM ? Ordering Location: ? [facility] ?Received: ?04/15/2014 09:16 AM ? Pathologist: ? Julian Boucher MD ? Specimen: ?Polyp Sigmoid, snare ? 04/16/2014 3:43 PM CDT [facility] Final Diagnosis 1. Sigmoid colon polyp: -- Tubular adenoma REGNA/inna 04/16/2014 3:43 PM CDT [facility] Gross Description Received in formalin in a container labeled, Trenton Crockett., polyp sigmoid. The container holds a 0.7 x 0.5 x 0.5 cm pink-adair tissue fragment. The margin of resection is inked blue. The specimen is sectioned and entirely submitted in a cassette labeled A1. KRISTIN/inna 04/16/2014 3:43 PM CDT [facility] Microscopic Description Section labeled, sigmoid colon polyp, show fragments of colonic mucosa displaying characteristics of ??tubular adenoma. No invasive malignancy is seen. REGAN/inna 04/16/2014 3:43 PM CDT [facility] Pathology/Cytolo gy POLYP OF SIGMOID COLON / Unknown 04/15/2014 8:49 AM CDT 04/15/2014 9:16 AM CDT Comment:799.9 Astrid Rios DO LAB - PATHOLOGY/CYTO LOGY ORDERABLES [facility] [address] [place] [id number] * ENDOSCOPY, COLON, SCREENING (04/15/2014 8:24 AM CDT) Report Endoscopy POC _ Patient Name: Trenton Crockett ? Procedure Date: 04/15/2014 8:24 AM ? Date of : 1965 ? Admit Type: Outpatient Age: 48 ? Gender: Male Attending MD: Astrid Rios, DO ?? _ Procedure: ? Colonoscopy Indications: ? Abdominal pain in the right lower quadrant Providers: ? Astrdi Rios DO (Doctor) Referring MD: ?Alf Khan [...] Procedure Code(s): ? --- Professional --- ? 88654, Colonoscopy, flexible, proximal to splenic flexure; with removal ? of tumor(s), polyp(s), or other lesion(s) by snare technique ? --- Technical --- ? 04281, Colonoscopy, flexible, proximal to splenic flexure; with [...] (without mention of hemorrhage) CPT copyright 2013 [employer]. All rights reserved. The codes documented in this report are preliminary and upon book coverer review may be revised to meet current compliance requirements. ___ Astrid Rios DO 04/15/2014 8:51 AM This report has been signed electronically. Number of Addenda: 0 Note Initiated On: 04/15/2014 8:24 AM [facility] 04/15/2014 8:24 AM CDT Astrid Gabriel SMITH GI PROCEDURE ORDERAB LES [facility] [place] [address] documented in this encounter Visit Diagnoses Diagnosis Abdominal pain documented in this encounter Administered Medications Inactive [...] RN) documented in this encounter Care Teams Outsole Leveler Relationship Specialty Start Date End Date Alf Khan DO PCP - General Family Medicine 09/03/13 02/27/23 documented as of this encounter
--- OUTSIDE RECORDS SUMMARY | 2024-09-06 20:29 | XMS_ITS | Encounter Summary ---
Author Organization [facility] Address [address] [place] [address] Care Team Providers Care Hemodialysis Patient Care Specialist Name Role Phone Unavailable Primary Care Provider Trang e Encounter Details Date Type Department Care Team (Late st Contact Info) Description 04/13/2013 Orders Only [facility] - Family Medicine [address] [place] [address] Jose Rust DO [address] [place] [address] Hepatic steatosis Social History Tobacco Use Types Packs/Day Years Used Date Smoking Tobacco: Former Cigarettes 1.5 25 0 12/07/1985 - 12/07/2010 Smokeless Tobacco: Never Alcohol Use Standard Drinks/Week Comments Yes 0 (1 standard drink = 0.6 oz pur e alcohol) Sex and Gender Information Value Date Recorded Sex Assigned at Male 08/31/2020 7:44 AM TIMBER INCISOR OPERATOR Gender Identity Male 08/31/2020 7:44 AM TIMBER INCISOR OPERATOR Sexual Orientation Straight 08/31/2020 7: 44 AM TIMBER INCISOR OPERATOR documented as of this encounter Progress Notes * Liv Klein - 06/22/2013 1:54 PM CDTQuick Note: Patient is aware of labs. * Jose Rust DO - 06/20/2013 10:39 AM CDTQuick Note: Alk Phos level is WNL now, but now one liver NZ is again elevated. Not of huge concern, as all these elevations are likely d/t your fatty infiltration. Try to limit your intake of fatty, greasy, and fried foods. Limit alcohol as well. Recheck with other labs in march 2014. documented in this encounter Plan of Treatment Not on file documented as of this encounter Procedures Procedure Name Priority Date/Time Associated Diagnosis Comments HEPATIC FUNCTION PANEL Routine 06/18/2013 3:34 PM CDT Hepatic steatosis documented in this encounter Results * (ABNORMAL) HEPATIC FUNCTION PANEL (06/18/2013 3:34 [...] PM CDT Narrative Resulting Agency Comment [facility] [place] [id number] [facility] ??[facility] [phone] Jose Rust DO LAB - CHEMISTRY LIZABETH WILEY [facility] Organization Address City/State/ZIP Co de Phone Number [facility] ACCOUNT BILL documented in this encounter Visit Diagnoses Diagnosis Hepatic steatosis- Primary Other chronic nonalcoholic liver disease documented in this encounter
--- OUTSIDE RECORDS SUMMARY | 2024-09-06 20:29 | XMS_ITS | Encounter Summary ---
Author Organization [facility] Address [address] [place] [address] Care Team Providers Care Case Sealer Name Role Phone Unavailable Primary Care Provider Unavailabl e Reason for Visit * Reason Onset Date Comments MEDICATION REFILL 01/04/2012 Encounter Details Date Type Department Care Team (Late st Contact Info) Description 01/04/2012 Refill [facility] - Family Medicine [address] [place] [address] Jose Rust DO [address] [place] [address] MEDICATION REFILL Social History Tobacco Use Types Packs/Day Years Used Date Smoking Tobacco: Former Cigarettes Q uit: 12/07/2010 Smokeless Tobacco: Never Alcohol Use Standard Drinks/Week Comments Not Asked 0 (1 standard drink = 0.6 oz pur e alcohol) Sex and Gender Information Value Date Recorded Sex Assigned at Male 08/31/2020 7:44 AM DROP WORKER Gender Identity Male 08/31/2020 7:44 AM DROP WORKER Sexual Orientation Straight 08/31/2020 7: 44 AM DROP WORKER documented as of this encounter Miscellaneous Notes * Telephone Encounter - Liv Klein - 01/07/2012 10:53 AM CDT Patient is aware * Telephone Encounter - Jose Rust DO - 01/05/2012 8:43 AM CDT Please contact patient. See before out. * Telephone Encounter - Ramila Fields MA - 01/04/2012 2:24 PM CDT Trenton Crockett Allergies Allergen Reactions ??? Perry Inhibitors Cough Requested Prescriptions Pending Prescriptions Disp Refills ??? Amlodipine Besy-Benazepril HCl (LOTREL) 10-40 MG CAPS 30 Cap Sig: Take 1 Cap by mouth once daily. Last Refill- 09/05/2011 Last OV- 12/13/2011 documented in this encounter Plan of Treatment Not on file documented as of this encounter Visit Diagnoses Not on filedocumented in this encounter
--- OUTSIDE RECORDS SUMMARY | 2024-09-06 20:29 | XMS_ITS | Encounter Summary ---
Author Organization [facility] Address [address] [facility] [place] [address] Care Team Providers Care Medical Coding Technician Name Role Phone Unavailable Primary Care Provider Unavailabl e Reason for Visit * Reason Comments Hypertension Patient is here for a yearly exam on blood pressure and lipids. He states he is not faithful with taking the Lotrel or Zocor daily. He says he doesn't feel like his pressure is high so he just doesn't take the meds. he also has urinary frequency, voiding twice/hour at times. denies nocturia. Hyperlipidemia he has been smoke fr ee for 5 months now. he has gained weight. Pain Back He c/o low back disc omfort, denies any injury. He would like an adjustment. denies any radicular pain or paraesthesias. Heartburn He c/o heartburn, cu rrently taking Priloscec OTC which seems to work well. Edema Bilateral leg and fe et swelling Ear Problem About two weeks ago he had swelling in his glands and L ear discomfort and pressure. He had Amoxil left over from a previous illness, he took for 2 days Encounter Details Date Type Department Care Team (Late st Contact Info) Description 05/09/2011 2:30 PM CDT Office Visit [facility] - Family Medicine [address] [place] [address] Jose Rust DO [address] [place] [address] HTN (hypertension), benign (Primary Dx); Hyperlipidemia; GERD (gastroesophageal reflux disease); Low back pain; Screening for unspecified condition Social History Tobacco Use Types Packs/Day Years Used Date Smoking Tobacco: Former Cigarettes Q uit: 12/07/2010 Smokeless Tobacco: Never Alcohol Use Standard Drinks/Week Comments Not Asked 0 (1 standard drink = 0.6 oz pur e alcohol) Sex and Gender Information Value Date Recorded Sex Assigned at Male 08/31/2020 7:44 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 Gender Identity Male 08/31/2020 7:44 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 Sexual Orientation Straight 08/31/2020 7: 44 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 documented as of this encounter Last Filed Vital Signs Vital Sign Reading Time Taken Comments Blood Pressure 172/118 05/09/2011 2:15 PM CDT Pulse 84 05/09/2011 2:15 PM CDT Temperature 36.8 ??C (98.3 ??F) 05/09/2011 2:15 PM CD T Respiratory Rate - - Oxygen Saturation - - Inhaled Oxygen Concentration - - Weight 110.7 kg (244 lb) 05/09/2011 2:15 PM CDT Height 179.1 cm (5' 10.5 ) 05/09/2011 2:15 PM CD T Body Mass Index 34.52 05/09/2011 2:15 PM CDT documented in this encounter Progress Notes * Jose Rust, - 05/09/2011 2:39 PM CDT Office Visit, Established [place], [id number] HISTORY: (4+ elements or 3+ chronic) CC & HPI: Trenton Crockett is a 45 y.o. male established patient, here for: Chief Complaint Patient presents with ??? Hypertension Patient is here for a yearly exam on blood pressure and lipids. He states he is not faithful with taking the Lotrel or Zocor daily. He says he doesn't feel like his pressure is high so he just doesn't take the meds. he also has urinary frequency, voiding twice/hour at times. denies nocturia. ??? Hyperlipidemia he has been smoke free for 5 months now. he has gained weight. ??? Pain Back He c/o low back discomfort, denies any injury. He would like an adjustment. denies any radicular pain or paraesthesias. ??? Heartburn He c/o heartburn, currently taking Priloscec OTC which seems to work well. ??? Edema Bilateral leg and feet swelling ??? Ear Problem About two weeks ago he had swelling in his glands and L ear discomfort and pressure. He had Amoxil left over from a previous illness, he took for 2 days Patient Active Problem List Diagnoses ??? Hyperlipidemia ??? Arthritis ??? HTN (Hypertension), Benign Outpatient Prescriptions Prior to Visit Medication Sig Dispense Refill ??? amlodipine-benazepril (LOTREL) 5-20 MG capsule Take 1 Cap by mouth daily. 90 Cap 1 ??? simvastatin (ZOCOR) 20 MG tablet Take 1 Tab by mouth daily. 90 Tab 1 ??? amoxicillin-clavulanate (AUGMENTIN) 875-125 MG tablet Take 875 mg by mouth 2 times daily with breakfast and dinner. ??? buPROPion SR 12hr (WELLBUTRIN SR) 150 MG tablet Take 1 Tab by mouth 2 times daily. 60 Tab 2 ??? codeine-guaifenesin (ROBITUSSIN-AC) 100-10 MG/5ML solution Take 5 mL by mouth every 6 hours as needed for Cough. 200 mL 0 ??? fluticasone propionate (FLONASE) 50 MCG/ACT nasal spray [employer] 2 Sprays into each nostril daily.1 g 6 ??? VENTOLIN HFA 108 (90 BASE) MCG/ACT inhaler Inhale by mouth. 1-2 puffs q4h prn. Only substitute Proair if not covered by insurance 1 Inhaler 1 Review of Systems (2 - 9) Pertinent items are noted in HPI PFSH, other pertinent history: (1 required) Allergies [...] from each of 6 organ systems) BP: 172/118 Pulse: 84 Temp(Src): 98.3 ??F (Oral) Wt: 244 lb (110.678 kg) BMI: 34.52 kg/m2 FiO2: General appearance - alert, well [...] no testicular masses or tenderness, no hernias, rectum normal, no masses, prostate normal size, symmetric, no nodules or tenderness, guaiac negative brown stool Back exam - limited range of motion, pain with motion noted during exam, negative straight-leg raise bilaterally 90 Neurological - alert, oriented, normal speech, no focal findings or movement disorder noted, neck supple without rigidity, cranial nerves II through XII intact, motor and sensory grossly normal bilaterally Extremities - pedal edema 0-1 + EKG - NSR, no ischemia ASSESSMENT: 1. HTN (hypertension), benign EKG 12-LEAD, CO ELECTROCARDIOGRAM, COMPLETE, COMPREHENSIVE METABOLIC PANEL, TSH, URINALYSIS DIPSTICK AUTO, doxazosin (CARDURA) 2 MG tablet 2. Hyperlipidemia COMPREHENSIVE METABOLIC PANEL, LIPID PROFILE W TCHOL/HDL (PO REF LAB), TSH 3. GERD (gastroesophageal reflux disease) omeprazole (PRILOSEC) 20 MG capsule 4. Low back pain 5. Screening for unspecified condition CBC W AUTO DIFFERENTIAL, PSA FREE + TOTAL PANEL, VITAMIN D 25-HYDROXY, OCCULT BLOOD FECES 1-3 SCREEN POINT OF CARE (AMB) PLAN: Orders Placed This Encounter ??? COMPREHENSIVE METABOLIC PANEL ??? CBC W AUTO DIFFERENTIAL ??? LIPID PROFILE W TCHOL/HDL (PO REF LAB) ??? TSH ??? PSA FREE + TOTAL PANEL ??? VITAMIN D 25-HYDROXY ??? URINALYSIS DIPSTICK AUTO ??? OCCULT BLOOD FECES 1-3 SCREEN POINT OF CARE (AMB) ??? EKG 12-LEAD ??? CO ELECTROCARDIOGRAM, COMPLETE ??? doxazosin (CARDURA) 2 MG tablet Sig: Take at HS. Take 1/2 tablet QD for the first 8 nights, then increase to 1 HS. Dispense: 30 Tab Refill: 0 ??? omeprazole (PRILOSEC) 20 MG capsule Sig: Take 1 Cap by mouth once daily. Dispense: 30 Cap Refill: 2 Medications Discontinued During This Encounter Medication Reason ??? codeine-guaifenesin (ROBITUSSIN-AC) 100-10 MG/5ML solution ??? buPROPion SR 12hr (WELLBUTRIN SR) 150 MG tablet ??? amoxicillin-clavulanate (AUGMENTIN) 875-125 MG tablet ??? fluticasone propionate (FLONASE) 50 MCG/ACT nasal spray ??? VENTOLIN HFA 108 (90 BASE) MCG/ACT inhaler Current Outpatient Prescriptions Medication Sig Dispense Refill ??? omeprazole EC (PRILOSEC OTC) 20 MG tablet Take 20 mg by mouth daily before breakfast. ??? doxazosin (CARDURA) 2 MG tablet Take at HS. Take 1/2 tablet QD for the first 8 nights, then increase to 1 HS. 30 Tab 0 ??? omeprazole (PRILOSEC) 20 MG capsule Take 1 Cap by mouth once daily. 30 Cap 2 ??? amlodipine-benazepril (LOTREL) 5-20 MG capsule Take 1 Cap by mouth daily. 90 Cap 1 ??? simvastatin (ZOCOR) 20 MG tablet Take 1 Tab by mouth daily. 90 Tab 1 Return to office in 2 weeks. Patient instructed to call with any concerns or problems. Manipulation to the dorsal spine, lumbar spines with good results. Avoid the known triggers of GERD documented in this encounter Plan of Treatment Not on file documented as of this encounter Procedures Procedure Name Priority Date/Time Associated Diagnosis Comments OCCULT BLOOD FECES 1-3 SCREEN POINT OF CARE (AMB) Routine 05/10/2011 11:36 AM CDT Screening for unspecified condition LIPID PROFILE W TCHOL/HDL Routine 05/09/2011 2:50 PM CDT Hyperlipidemia PSA FREE + TOTAL PANEL Routine 1 2:50 PM CDT Screening for unspecified condition URINALYSIS NO MICROSCOPIC NO CULTURE Routine 05/09/2011 2:50 PM CDT HTN (hypertension), benign VITAMIN D 25-HYDROXY Routine 05/09/2011 2:50 PM CDT Screening for unspecified condition CBC W AUTO DIFFERENTIAL Routine 05/09/2011 2:50 PM CDT Screening for unspecified condition COMPREHENSIVE METABOLIC PANEL Routine 05/09/2011 2:50 PM CDT HTN (hypertension), benign Hyperlipidemia TSH Routine 05/09/2011 2:50 PM CDT HTN (hypertension), benign Hyperlipidemia EKG 12-LEAD Routine 05/09/2011 2:35 PM CDT HTN (hypertension), benign documented in this encounter Results * OCCULT BLOOD FECES 1-3 SCREEN POINT OF CARE (AMB) (05/10/2011 11:36 AM CDT) Occult Blood 1 neg Negative Occult Blood 2 neg Negative Occult Blood 3 neg Negative Card Lot Number Card Exp Date yes Yes Developer Lot Number Developer Expiration Date yes Yes QC Negative neg Negative QC Positive STOOL SPECIMEN / Unknown Jose Rust DO LAB - POINT OF CARE ORDERABLES * URINALYSIS DIPSTICK AUTO (05/09/2011 2:50 PM CDT) Color UA DARK YELLOW YELLOW [facility] Appearance CLEAR CLEAR [facility] Specific [place] UA 1.028 1.001 - 1.035 [facility] pH UA 6.0 5.0 - 8.0 [facility] Glucose UA NEGATIVE NEGATIVE [facility] Bilirubin UA NEGATIVE NEGATIVE [facility] Ketone UA NEGATIVE NEGATIVE [facility] Blood UA NEGATIVE NEGATIVE [facility] Protein UA NEGATIVE NEGATIVE [facility] Nitrite UA NEGATIVE NEGATIVE [facility] Leukocyte UA NEGATIVE NEGATIVE [facility] Comment: Test Performed at: [facility] [address] [place], [place] ??[phone] BISI SCHWARZ DO,MPH URINE SPECIMEN OBTAINED BY CLEAN CATCH PROCEDURE / Unknown 05/09/2011 2:50 PM CDT 05/10/2011 5:23 AM CDT Jose Rust DO LAB - URINALYSIS ORD ERABLES Performing Organization Address [facility] de Phone Number [address] [address] * VITAMIN D 25-HYDROXY (05/09/2011 2:50 PM CDT) Vitamin D, 25 Hydroxy 35 30 - 100 ng/mL [facility] Vitamin D, 25 Hydroxy D2 <4 ng/mL [facility] Vitamin D, 25 Hydroxy D3 35 ng/mL [facility] Comment: 25-OHD3 indicates both endogenous production and supplementation. 25-OHD2 is an indicator of exogenous sources such as diet or supplementation. Therapy is based on measurement of Total 25-OHD, with levels <20 ng/mL indicative of Vitamin D deficiency while levels between 20 ng/mL and 30 ng/mL suggest insufficiency. Optimal levels are >/=30 ng/mL. Test Performed at: [facility] [address] ??[phone] VALDEMAR RINALDI MD ?? BLOOD SPECIMEN / Unknown 05/09/2011 2:50 PM CDT 05/10/2011 5:23 AM CDT Jose Rust DO LAB - CHEMISTRY ORDE INEZ Performing Organization Address [facility] de Phone Number [address] [address] * (ABNORMAL) PSA FREE + TOTAL PANEL (05/09/2011 2:50 PM CDT) PSA 1.6 < OR = 4.0 ng/mL [facility] PSA Free 0.4 ng/mL [facility] PSA % Free 25(L) >25 % (calc) [facility] Comment: PSA(ng/mL) ?Free PSA(%) ? Estimated(x) Probability ? of Cancer(as%) 0-2.5 ?(*) ? Approx. 1 2.6-4.0(1) ? 0-27(2) ? 24(3) 4.1-10(4) ?0-10 ?56 ? 11-15 ? 28 ? 16-20 ? 20 ? 21-25 ? 16 ? >or =26 ? 8 >10(+) ? N/A ?>50 References:(1)Jose:Urology 60: 469-474 (2002) ? (2)Judd.:J.Urol 168: 922-925 (2002) ?Free PSA(%) ?? Sensitivity(%) ??Specificity(%) ?< or = 25 ?85 ?19 ?< or = 30 ?93 ? 9 ? (3)Judd.:MADIHA 277: 8782-0033 (1996) ? (4)Catalona et al.:MADIHA 279: 2107-0397 (1997) (x)These estimates vary with age, ethnicity, family ?? and JOSTIN results. (*)The diagnostic usefulness of % Free PSA has not been ?? established in patients with total PSA below 2.6 ng/mL (+)In men with PSA above 10 ng/mL, prostate cancer risk is ?? determined by total PSA alone. PSA was performed using the Emmett Stefani Immunoassay method. Values obtained from different assay methods cannot be used interchangeably. PSA levels, regardless of value, should not be interpreted as absolute evidence of the presence or absence of disease. Test Performed at: [facility] ??[phone] BISI SCHWARZ DO,MPH BLOOD SPECIMEN / Unknown 05/09/2011 2:50 PM CDT 05/10/2011 5:23 AM CDT Jose Rust DO LAB - CHEMISTRY LIZABETH WILEY Performing Organization Address [facility] de Phone Number [facility] [phone] [place] [id number] * TSH (05/09/2011 2:50 PM CDT) TSH 2.67 0.40 - 4.50 mIU/L [facility] Comment: Test Performed at: [facility] [address] ??[phone] BISI SCHWARZ DO,MPH BLOOD SPECIMEN / Unknown 05/09/2011 2:50 PM CDT 05/10/2011 5:23 AM CDT Jose Rust DO LAB - CHEMISTRY LIZABETH Tutor TroveRAMON Performing Organization Address [facility] de Phone Number [address] [address] * (ABNORMAL) LIPID PROFILE W TCHOL/HDL (PO REF LAB) (05/09/2011 2:50 PM CDT) Cholesterol 203(H) 125 - 200 mg/dL [facility] Comment: Test Performed at: [facility] [address] [place] [address] ??[phone] BISI SCHWARZ DO,MPH HDL Cholesterol 39(L) > OR = 40 mg/dL [facility] Triglycerides 279(H) <150 mg/dL [facility] LDL Calculated 108 <130 mg/dL (calc) [facility] Comment: Desirable range <100 mg/dL for patients with CHD or diabetes and <70 mg/dL for diabetic patients with known heart disease. CHOL/HDLC RATIO 5.2(H) < OR = 5.0 (calc) [facility] BLOOD SPECIMEN / Unknown 05/09/2011 2:50 PM CDT 05/10/2011 5:23 AM CDT Jose Rust DO LAB - CHEMISTRY LIZABETH WILEY [facility] Organization Address City/State/ZIP Co de Phone Number [facility] [address] [place] [address] * CBC W AUTO DIFFERENTIAL (05/09/2011 2:50 PM CDT) White Blood Cell Count 8.1 3.8 - 10.8 Thousand/u L [facility] RBC 4.85 4.20 - 5.80 Million/uL [facility] Hemoglobin 16.0 13.2 - 17.1 g/dL [facility] Hematocrit 47.2 38.5 - 50.0 % [facility] MCV 97.3 80.0 - 100.0 fL [facility] MCH 32.9 27.0 - 33.0 pg [facility] MCHC 33.8 32.0 - 36.0 g/dL [facility] RDW 13.1 11.0 - 15.0 % [facility] Platelet Count 190 140 - 400 Thousand/u L [facility] Neutrophil Absolute 4601 1500 - 7800 cells/uL [facility] Lymphocytes Absolute 2584 850 - 3900 cells/uL [facility] Absolute Monocytes 689 200 - 950 cells/uL [facility] Eosinophils Absolute 178 15 - 500 cells/uL [facility] Basophils Absolute 49 0 - 200 cells/uL [facility] Granulocytes % 56.8 % [facility] Lymphocytes % 31.9 % [facility] Monocytes % 8.5 % [facility] Eosinophils % 2.2 % [facility] Basophils % 0.6 % [facility] Comment: Test Performed at: [facility] [address] [place], [place] ??[phone] BISI SCHWARZ DO,MPH BLOOD SPECIMEN / Unknown 05/09/2011 2:50 PM CDT 05/10/2011 5:23 AM CDT Jose Rust DO LAB - HEMATOLOGY ORD ERABLES Performing Organization Address [facility] Co de Phone Number [facility] [address] [place] [address] * (ABNORMAL) COMPREHENSIVE METABOLIC PANEL (05/09/2011 2:50 PM CDT) Glucose 79 65 - 99 mg/dL [facility] Comment: ? Fasting reference interval BUN 15 7 - 25 mg/dL [facility] Creatinine 0.82 0.78 - 1.34 mg/dL [facility] eGFR by MDRD 107 > OR = 60 mL/min/1. 73m2 [facility] eGFR by MDRD 124 > OR = 60 mL/min/1. 73m2 [facility] BUN/Creatinine Ratio NOT APPLICABLE 6 - 22 (calc) [facility] Sodium 140 135 - 146 mmol/L [facility] Potassium 4.3 3.5 - 5.3 mmol/L [facility] Chloride 102 98 - 110 mmol/L [facility] CO2 24 21 - 33 mmol/L [facility] Calcium 9.6 8.6 - 10.2 mg/dL [facility] Protein Total 7.2 6.2 - 8.3 g/dL [facility] Albumin 4.5 3.6 - 5.1 g/dL [facility] Globulin Total 2.7 2.1 - 3.7 g/dL (calc) [facility] Albumin/Globuli n Ratio 1.7 1.0 - 2.1 (calc) [facility] Bilirubin Total 0.8 0.2 - 1.2 mg/dL [facility] Alkaline Phosphatase 85 40 - 115 U/L [facility] AST 57(H) 10 - 40 U/L [facility] ALT 55 9 - 60 U/L [facility] Comment: Test Performed at: [facility] ??[phone] BISI SCHWARZ DO,MPH BLOOD SPECIMEN / Unknown 05/09/2011 2:50 PM CDT 05/10/2011 5:23 AM CDT Jose Rust DO LAB - CHEMISTRY ORDE RABRAMON Performing Organization Address [facility] Co de Phone Number [facility] [address] [place] [address] * EKG 12-LEAD (05/09/2011 2:35 PM CDT) Jose Rust DO ECG ORDERABLES [facility] RESULT SCAN documented in this encounter Visit Diagnoses Diagnosis HTN (hypertension), benign- Primary Essential hypertension, benign Hyperlipidemia Other and unspecified hyperlipidemia GERD (gastroesophageal reflux disease) Esophageal reflux Low back pain Lumbago Screening for unspecified condition documented in this encounter
--- OUTSIDE RECORDS SUMMARY | 2024-09-06 20:29 | XMS_ITS | Encounter Summary ---
Author Organization [facility] Address [address] [facility] [address] [facility] [place] [address] Care Team Providers Care Table Runner Name Role Phone Alf Khan DO Primary Care Provider Stephan rosa Reason for Visit * Radiology Services - Closed Specialty Diagnoses / Procedures Referred By Jean sosa Referred To Contact Nuclear Medicine Diagnoses Nausea alone Procedures NM HEPATOBILIARY FUNCTION SCAN NM HEPATOBILIARY WITH CCK Alf Khan DO [address] [place] [address] Referral ID Status Reason Start Date Expiration Date Visits Re quested Visits Authorized [id number] Closed 04/16/2014 10/13/2014 1 1 Encounter Details Date Type Department Care Team (Latest Contact Info) Description 04/16/2014 7:22 AM CDT - 04/16/2014 11:59 PM CDT Hospital Encounter [facility] - Nuclear Medicine [address] [place] [id number] Alf Khan DO Discharge Disposition: Home or Self Care Social History Tobacco Use Types Packs/Day Years Used Date Smoking Tobacco: Former Cigarettes 1.5 25 0 12/07/1985 - 12/07/2010 Smokeless Tobacco: Never Alcohol Use Standard Drinks/Week Comments Yes 0 (1 standard drink = 0.6 oz pur e alcohol) social Sex and Gender Information Value Date Recorded Sex Assigned at Male 08/31/2020 7:44 AM SCHOOL ADMISSIONS 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 No 04/15/2014 Is person blind or have serious difficulty davin crane? No 04/15/2014 Does person have serious dif [...] encounter Progress Notes * Rafi Gonzalez - 04/16/2014 1:19 PM CDTQuick Note: Patient is informed. * Alf Khan DO - 04/16/2014 11:04 AM CDTQuick Note: GB function is normal if cont to have abd pain needs to f/u documented in this encounter Plan of Treatment Not on file documented as of this encounter Procedures Procedure Name Priority Date/Time Associated Diagnosis Comments NM HEPATOBILIARY WO EF Routine 4 9:16 AM CDT Abdominal pain, right upper quadrant Nausea alone documented in this encounter Results * NM HEPATOBILIARY FUNCTION SCAN (04/16/2014 9:16 [...] Flor [place] on 04/16/2014 9:34 AM Alf GLORIA ORDERABLES documented in this encounter Visit Diagnoses Diagnosis Abdominal pain, right upper quadrant Nausea alone documented in this encounter Care Teams Table Runner Relationship Specialty Start Date End Date Alf Khan DO PCP - General Family Medicine 09/03/13 02/27/23 documented as of this encounter
--- OUTSIDE RECORDS SUMMARY | 2024-09-06 20:29 | XMS_ITS | Encounter Summary ---
Author Organization [facility] Address [address] [place] [address] Care Team Providers Care Inspector Penetrant Name Role Phone Alf Khan DO Primary Care Provider Stephan rosa Reason for Visit * Reason Comments Pain Back Discuss ongoing back pain. MEDICATION REFILL Discuss pain medicat ion refills. Also needing omeprazole Encounter Details Date Type Department Care Team (Latest Contact Info) Description 06/24/2014 3:45 PM CDT Office Visit [facility] - Family Medicine [address] [place] [address] Alf Khan DO IBS (irritable bowel syndrome) (Primary Dx); GERD (gastroesophageal reflux disease); HTN (hypertension), benign; Degeneration of cervical intervertebral disc; Degeneration of lumbar or lumbosacral intervertebral disc; Metabolic syndrome; Hyperlipidemia; Glucose intolerance (impaired glucose tolerance) Social [...] Assigned at Male 08/31/2020 7:44 AM CAR USHER Gender Identity Male 08/31/2020 7:44 AM CAR USHER Sexual Orientation Straight 08/31/2020 7: 44 AM CAR USHER documented as of this encounter Last Filed Vital Signs Vital Sign Reading Time Taken Comments Blood Pressure 136/88 06/24/2014 3:57 PM CDT Pulse 83 06/24/2014 3:57 PM CDT Temperature - - Respiratory Rate - - Oxygen Saturation - - Inhaled Oxygen Concentration - - Weight 120.2 kg (265 lb) 06/24/2014 3:57 PM CDT Height 180.3 cm (5' 11 ) 06/24/2014 3:57 PM CDT Body Mass Index 36.96 06/24/2014 3:57 PM CDT documented in this encounter Functional [...] Instructions * Patient Instructions* Zachary Moreno - 06/24/2014 4:01 PM CDT Caring for Your High Blood [...] Where can I go for more information? [employer] National Center: http://www.americanheart.org 1. In the top header, click ???Conditions?? . 2. In the top header, click ???high blood pressure.?? 3. For a printable blood pressure tracker, scroll toward the bottom of the page to Related Tools, and click ???HBP Trackers.?? 4-042-YUY-USA-1 or ( ) National Heart, Lung and Blood [place]: http://www.nhlbi.nih.gov/health/infoctr/index.htm documented in this encounter Progress Notes * Alf Khan, - 06/24/2014 4:38 PM CDT Office Visit, Established Patient, [id number] HISTORY: CC & HPI: Trenton Crockett is a 48 y.o. male established patient, here for: Chief Complaint Patient presents with ??? Pain Back Discuss ongoing back pain. ??? MEDICATION REFILL Discuss pain medication refills. Also needing omeprazole HPI: needs meds for IBS and tried levsin and had SE made sick and asks if any other rx to help. Never Tx for lactose free or Tx with enzyme Neck and Back pain disc Dx got 60 pill Rx RF x 3 and Rf and need Rx for this will see how long 120 last and decide BP med no SE and no CP or SOB GERD Rx works well needs Rf no Se Patient Active Problem List Diagnosis Date Noted ??? Pain medication agreement signed 06/24/2014 ??? BPH (benign prostatic hypertrophy) 06/10/2012 [...] mouth once daily. 30 Cap 11 No facility-administered medications prior to visit. Review [...] No family history on file. EXAM BP: 136/88 Pulse: 83 Wt: 120.203 kg (265 lb) BMI: 36.98 kg/m2 FiO2: General appearance - alert, well [...] or cyanosis, no pedal edema noted ASSESSMENT: No diagnosis found. PLAN: No orders of the defined types were placed in this encounter. There are no discontinued medications. Current Outpatient Prescriptions Medication Sig Dispense Refill ??? pravastatin (PRAVACHOL) [...] 7.1 7.0 EGFR 115 -- 109 104 Safe use and storage of controlled meds reviewed with pt again today SE of meds discussed with patient and best way to take medication. All questions answered. Return to office in 6 months. Patient instructed to call with any concerns or problems. documented in this encounter Plan of Treatment Not on file documented as of this encounter Goals Goal Patient Goal Type Associated Problems Recent Progress Patient-Stated? Author Blood Pressure < 140/90 Blood Pressure 172/93(2022 8:59 AM CDT) No Zachary Moreno documented as of this encounter Visit Diagnoses Diagnosis IBS (irritable bowel syndrome)- Primary Irritable bowel syndrome GERD (gastroesophageal reflux disease) Esophageal reflux HTN (hypertension), benign Essential hypertension, benign Degeneration of cervical intervertebral disc Degeneration of lumbar or lumbosacral intervertebral disc Metabolic syndrome Dysmetabolic Syndrome X Hyperlipidemia Other and unspecified hyperlipidemia Glucose intolerance (impaired glucose tolerance) Impaired glucose tolerance test documented in this encounter Care Teams Inspector Penetrant Relationship Specialty Start Date End Date Alf Khan DO PCP - General Family Medicine 09/03/13 02/27/23 documented as of this encounter
--- OUTSIDE RECORDS SUMMARY | 2024-09-06 20:29 | XMS_ITS | Encounter Summary ---
Author Organization [facility] Address [address] [place] [address] Care Team Providers Care Creative Consultant Name Role Phone Unavailable Primary Care Provider Unavailabl e Reason for Visit * Reason Onset Date Comments MEDICATION REFILL 05/27/2012 Encounter Details Date Type Department Care Team (Late st Contact Info) Description 05/27/2012 Refill [facility] Medical [facility] - Family Medicine [address] [place] [address] Jose Rust DO [address] [place] [address] MEDICATION REFILL Social History Tobacco Use Types Packs/Day Years Used Date Smoking Tobacco: Former Cigarettes Q uit: 12/07/2010 Smokeless Tobacco: Never Alcohol Use Standard Drinks/Week Comments Not Asked 0 (1 standard drink = 0.6 oz pur e alcohol) Sex and Gender Information Value Date Recorded Sex Assigned at Male 08/31/2020 7:44 AM BAGGAGE PORTER Gender Identity Male 08/31/2020 7:44 AM BAGGAGE PORTER Sexual Orientation Straight 08/31/2020 7: 44 AM BAGGAGE PORTER documented as of this encounter Miscellaneous Notes * Telephone Encounter - Izzy Galan MA - 05/27/2012 5:02 PM CDT Patient already has appointment scheduled. * Telephone Encounter - Perla Martinez - 05/27/2012 4:53 PM CDT Rx approved and sent to pharmacy Patient is due for a f/u appt, labs. * Telephone Encounter - Alyse Campbell V. - 05/27/2012 2:17 PM CDT Trenton Dodge White Allergies Allergen Reactions ??? Perry Inhibitors Cough Requested Prescriptions Pending Prescriptions Disp Refills ??? pravastatin (PRAVACHOL) 40 MG tablet 30 Tab 0 Sig: Take 1 Tab by mouth at bedtime. ??? hydrochlorothiazide (MICROZIDE) 12.5 MG capsule 30 Cap 0 Sig: Take 1 Cap by mouth once daily. Pt's also said that patient is due for Vesacare, but I did not see it in Med List. Last Refill:Both 04/24/12 Last OV: 02/12/12 documented in this encounter Plan of Treatment Not on file documented as of this encounter Visit Diagnoses Diagnosis Hyperlipidemia Other and unspecified hyperlipidemia HTN (hypertension), benign Essential hypertension, benign documented in this encounter
--- OUTSIDE RECORDS SUMMARY | 2024-09-06 20:29 | XMS_ITS | Encounter Summary ---
Author Organization [facility] Address [address] [place] [address] Care Team Providers Care Gravity Flow Irrigator Name Role Phone Alf Khan DO Primary Care Provider Stephan rosa Reason for Visit * Reason Comments Follow-up patient here today c ont to have ongoing back pain Med Question patient has medicati on regarding taking the hydrocodone and gabepentin together Encounter Details Date Type Department Care Team (Latest Contact Info) Description 11/15/2014 2:15 PM CDT Office Visit [facility] - Family Medicine [address] [place] [address] Alf Khan DO Radicular pain in left arm (Primary Dx); Degeneration of cervical intervertebral disc; OAB (overactive bladder); BPH (benign prostatic hypertrophy) Social History Tobacco Use Types Packs/Day Years Used Date Smoking Tobacco: Former Cigarettes 1.5 25 0 12/07/1985 - 12/07/2010 Smokeless Tobacco: Never Alcohol Use Standard Drinks/Week Comments Yes 0 (1 standard drink = 0.6 oz pur e alcohol) social Sex and Gender Information Value Date Recorded Sex Assigned at Male 08/31/2020 7:44 AM ACCOUNT MANAGER EDUCATION Gender Identity Male 08/31/2020 7:44 AM ACCOUNT MANAGER EDUCATION Sexual Orientation Straight 08/31/2020 7: 44 AM ACCOUNT MANAGER EDUCATION documented as of this encounter Last Filed Vital Signs Vital Sign Reading Time Taken Comments Blood Pressure 152/74 11/15/2014 2:25 PM CDT Pulse 87 11/15/2014 2:25 PM CDT Temperature - - Respiratory Rate - - Oxygen Saturation 94% 11/15/2014 2:25 PM CDT Inhaled Oxygen Concentration - - Weight 120.2 kg (265 lb) 11/15/2014 2:25 PM CDT Height 180.3 cm (5' 11 ) 11/15/2014 2:25 PM CDT Body Mass Index 36.96 11/15/2014 2:25 PM CDT documented in this encounter Functional [...] * Patient Instructions* Puja Raymundo R - 11/15/2014 2:25 PM CDT Caring for Your High Blood Pressure Medications ??? Keep a written list of what medicines you are taking and when you take them. Bring the list of your medicines or the pill bottles when you see your provider. Learn why you take each medicine. Askyour provider or pharmacist for information about your medicines. ??? Do not take hhnw-drf-huagnqd medicine or herbal supplements without talking to [...] Where can I go for more information? [place] [employer] National Center: http://www.americanheart.org 1. In the top header, click ???Conditions?? . 2. In the top header, click ???high blood pressure.?? 3. For a printable blood pressure tracker, scroll toward the bottom of the page to Related Tools, and click ???HBP Trackers.?? 2-374-XTK-USA-1 or ( ) National Heart, Lung and Blood [place]: http://www.nhlbi.nih.gov/health/infoctr/index.htm documented in this encounter Progress Notes * Alf Khan, - 11/15/2014 2:46 PM CDT Office Visit, [place], [id number] HISTORY: CC & HPI: Trenton Crockett is a 48 y.o. male established patient, here for: Chief Complaint Patient presents with ??? Follow-up patient here today cont to have ongoing back pain ??? Med Question patient has medication regarding taking the hydrocodone and gabepentin together HPI: Is some better after the prednisone and had 1 PT session and he was suppose to go today and heis doing exercises and he is worried about Neurontin and he did not try it says it went from a bout a 6 after prednisone, Asks me about x rays and MRI on low back I do not have it and will try and get them Says OAB frequent urination Sx 4-5 x a day and is sudden has to go asks for Tamulosin Rf Pain Rx is helping but told him the Neurontin works well on nerve pain Patient Active Problem List Diagnosis Date Noted [...] as neededfor Pain. 120 Tab 0 ??? dicyclomine (BENTYL) 10 MG capsule Take 1 Cap by mouth 4 times daily as needed. 100 Cap 5 ??? omeprazole (PRILOSEC) 20 MG capsule Take 1 Cap by mouth once daily. 30 Cap 11 ??? valsartan (DIOVAN) 160 MG tablet Take 1 Tab by mouth once daily. 30 Tab 9 ??? albuterol HFA (PROAIR HFA) 108 (90 BASE) MCG/ACT inhaler Inhale 2 Puffs by mouth every 6 hours as needed. ??? gabapentin (NEURONTIN) 600 MG tablet Take 0.5-1 Tabs by mouth 4 times daily. 90 Tab 5 ??? predniSONE (DELTASONE) 10 MG tablet 4 qd x 2 days, pc then 1 less pill every 2 days until gone 20 Tab 0 ??? pravastatin (PRAVACHOL) 40 MG tablet Take 1 tablet by mouth at bedtime. 30 tablet 5 No facility-administered medications prior to visit. Review [...] No family history on file. EXAM BP 152/74 Pulse 87 Wt 120.203 kg (265 lb) BMI 36.98 kg/m2 SpO2 94% FiO2: General appearance - [...] edema noted MS-has full ROM left shoulder ASSESSMENT: ICD-9-CM 1. Radicular pain in left arm 729.2 2. Degeneration of cervical intervertebral disc 722.4 PLAN: No orders of the defined types were placed in this encounter. Medications Discontinued During This Encounter Medication Reason ??? predniSONE (DELTASONE) 10 MG tablet Current Outpatient Prescriptions Medication Sig Dispense Refill ??? hydrocodone-acetaminophen (NORCO) 7.5-325 MG tablet Take 1 Tab by mouth every 4 hours as neededfor Pain. 120 Tab 0 ??? dicyclomine (BENTYL) 10 MG capsule Take 1 Cap by mouth 4 times daily as needed. 100 Cap 5 ??? omeprazole (PRILOSEC) 20 MG capsule Take 1 Cap by mouth once daily. 30 Cap 11 ??? valsartan (DIOVAN) 160 MG tablet Take 1 Tab by mouth once daily. 30 Tab 9 ??? albuterol HFA (PROAIR HFA) 108 (90 BASE) MCG/ACT inhaler Inhale 2 Puffs by mouth every 6 hours as needed. ??? gabapentin (NEURONTIN) 600 MG tablet Take 0.5-1 Tabs by mouth 4 times daily. 90 Tab 5 ??? pravastatin (PRAVACHOL) 40 MG tablet Take 1 tablet by mouth at bedtime. 30 tablet 5 No current facility-administered medications for this visit. Reassurance about neurontin and told him has to try in PM and see if make tired and increase on days off Safe use and storage of controlled meds [...] arm- Primary Neuralgia, neuritis, and radiculitis, unspecified Degeneration of cervical intervertebral disc OAB (overactive bladder) Hypertonicity of bladder BPH (benign prostatic hypertrophy) Hypertrophy of prostate without urinary obstruction and other lower urinary tract symptoms (LUTS) documented in this encounter Care Teams Gravity Flow Irrigator Relationship Specialty Start Date End Date Alf Khan DO PCP - General Family Medicine 09/03/13 02/27/23 documented as of this encounter
--- OUTSIDE RECORDS SUMMARY | 2024-09-06 20:29 | XMS_ITS | Encounter Summary ---
Author Organization [facility] Address [address] [place] [address] Care Team Providers Care Range Scientist Name Role Phone Alf Khan DO Primary Care Provider Stephan rosa Reason for Visit * Reason Onset Date Comments Update 04/06/2014 Encounter Details Date Type Department Care Team (Late st Contact Info) Description 04/06/2014 Telephone [facility] - Family Medicine [address] [place] [address] Alf Khan DO Update Social History Tobacco Use Types Packs/Day Years Used Date Smoking Tobacco: Former Cigarettes 1.5 25 0 12/07/1985 - 12/07/2010 Smokeless Tobacco: Never Alcohol Use Standard Drinks/Week Comments Yes 0 (1 standard drink = 0.6 oz pur e alcohol) Sex and Gender Information Value Date Recorded Sex Assigned at Male 08/31/2020 7:44 AM SCHOOL STANDARDS COACH Gender Identity Male 08/31/2020 7:44 AM SCHOOL STANDARDS COACH Sexual Orientation Straight 08/31/2020 7: 44 AM SCHOOL STANDARDS COACH documented as of this encounter Miscellaneous Notes * Telephone Encounter - Zachary Moreno - 04/06/2014 5:00 PM CDT Spoke with patient's she is aware, patient will stop the medication. * Telephone Encounter - Alf Khan DO - 04/06/2014 4:54 PM CDT I already answered that it lasts 4-6 hrs so just do not take it I have never seen it make anyone nauseus but anything is possible. We were just trying it to see if it helped his Sx and he is supposeto be getting a GB test so that could be the cause not the med but just STOP it * Telephone Encounter - Izzy Galan MA - 04/06/2014 4:42 PM CDT Patient is very nauseous. Patient states he cannot continue taking this, he can hardly function. Please advise? * Telephone Encounter - Alf Khan DO - 04/06/2014 3:24 PM CDT vague message sick how? If he stops it it leaves his System in 4-6 hrs. This medicine rarely does anything but a dry mouth * Telephone Encounter - Umer Fulton - 04/06/2014 2:41 PM CDT Patient's called stating that the hyoscyamine (LEVSIN/SL) 0.125 MG ODT is currently making thepatient very sick and patient's would like to know if there is anything that can be done aboutit. Please advise. documented in this encounter Plan of Treatment Not on file documented as of this encounter Visit Diagnoses Not on filedocumented in this encounter Care Teams Range Scientist Relationship Specialty Start Date End Date Alf Khan DO PCP - General Family Medicine 09/03/13 02/27/23 documented as of this encounter
--- OUTSIDE RECORDS SUMMARY | 2024-09-06 20:29 | XMS_ITS | Encounter Summary ---
Author Organization [facility] Address [address] [place] [address] Care Team Providers Care Web Consultant Name Role Phone Alf Khan DO Primary Care Provider Stephan rosa Encounter Details Date Type Department Care Team (Late st Contact Info) Description 04/08/[address] [facility] Medical [facility] - Family Medicine [address] [place] [address] Alf Khan DO Abdominal pain, right upper quadrant ; Nausea alone Social History Tobacco Use Types Packs/Day Years Used Date Smoking Tobacco: Former Cigarettes 1.5 25 0 12/07/1985 - 12/07/2010 Smokeless Tobacco: Never Alcohol Use Standard Drinks/Week Comments Yes 0 (1 standard drink = 0.6 oz pur e alcohol) Sex and Gender Information Value Date Recorded Sex Assigned at Male 08/31/2020 7:44 AM SR. PRICING ANALYST Gender Identity Male 08/31/2020 7:44 AM SR. PRICING ANALYST Sexual Orientation Straight 08/31/2020 7: 44 AM SR. PRICING ANALYST documented as of this encounter Progress Notes * Liv Vasquez - 04/08/2014 1:53 PM CDT Ordered HIDA scan at [facility] on 04/16/14 at 7:30 am. Patient aware of instructions. documented in this encounter Plan of Treatment Not on file documented as of this encounter Visit Diagnoses Diagnosis Abdominal pain, right upper quadrant- Primary Nausea alone documented in this encounter Care Teams Web Consultant Relationship Specialty Start Date End Date Alf Khan DO PCP - General Family Medicine 09/03/13 02/27/23 documented as of this encounter
--- OUTSIDE RECORDS SUMMARY | 2024-09-06 20:29 | XMS_ITS | Encounter Summary ---
Author Organization [facility] Address [address] [place] [address] Care Team Providers Care Lube Technician Name Role Phone Alf Khan DO Primary Care Provider Stephan rosa Reason for Visit * Reason Onset Date Comments Medication Request 07/14/2015 Encounter Details Date Type Department Care Team (Late st Contact Info) Description 07/14/2015 Telephone [facility] - Family [facility] [address] [place] [address] Alf Khan, DO Medication Request Social History Tobacco Use Types Packs/Day Years Used Date Smoking Tobacco: Former Cigarettes 1.5 25 0 12/07/1985 - 12/07/2010 Smokeless Tobacco: Never Alcohol Use Standard Drinks/Week Comments Yes 0 (1 standard drink = 0.6 oz pur e alcohol) social Sex and Gender Information Value Date Recorded Sex Assigned at Male 08/31/2020 7:44 AM MICROBIOLOGY SUPERVISOR Gender Identity Male 08/31/2020 7:44 AM MICROBIOLOGY SUPERVISOR Sexual Orientation Straight 08/31/2020 7: 44 AM MICROBIOLOGY SUPERVISOR documented as of this encounter Functional [...] * Telephone Encounter - Yanely Todd - 07/14/2015 12:26 PM CST Please sign Rx in epic OBIOLOGY SUPERVISOR * Telephone Encounter - Alf Khan DO - 07/14/2015 12:04 PM CST He is contagious and should not be working so he can have tobrex #1 1 gtt to both eyes qid OBIOLOGY SUPERVISOR * Telephone Encounter - Hanh Beltran II - 07/14/2015 9:24 AM CST Patient's called stating that the patient has contained the pink eye from their [facility]. He is not able to schedule an appointment today because he has an business meeting. They would like to know if Dr Khan could prescribe something for him. Please advise OBIOLOGY SUPERVISOR documented in this encounter Plan of Treatment Not on file documented as of this encounter Goals Goal Patient Goal Type Associated Problems Recent Progress Patient-Stated? Author Blood Pressure < 140/90 Blood Pressure 172/93(2022 8:59 AM CDT) No Zachary Moreno documented as of this encounter Visit Diagnoses Not on filedocumented in this encounter Care Teams Lube Technician Relationship Specialty Start Date End Date Alf Khan DO PCP - General Family Medicine 09/03/13 02/27/23 documented as of this encounter
--- OUTSIDE RECORDS SUMMARY | 2024-09-06 20:29 | XMS_ITS | Encounter Summary ---
Author Organization [facility] Address [address] [place] [address] Care Team Providers Care Home Appliance Technician Name Role Phone Unavailable Primary Care Provider Unavailabl e Reason for Visit * Reason Comments Hypertension Patient is here for a recheck on his blood pressure and to discuss the US results. Pain Back low back stiffness a nd soreness in the low back, and up his spine. Encounter Details Date Type Department Care Team (Late st Contact Info) Description 05/23/2011 3:00 PM CDT Office Visit [facility] - Family Medicine [address] [place] [address] Jose Rust, [address] [place] [address] HTN (hypertension), benign (Primary Dx); Hepatic steatosis; Need for influenza vaccination Social History Tobacco Use Types Packs/Day Years Used Date Smoking Tobacco: Former Cigarettes Q uit: 12/07/2010 Smokeless Tobacco: Never Alcohol Use Standard Drinks/Week Comments Not Asked 0 (1 standard drink = 0.6 oz pur e alcohol) Sex and Gender Information Value Date Recorded Sex Assigned at Male 08/31/2020 7:44 AM TYPEWRITER ASSEMBLY AND PARTS INSPECTOR Gender Identity Male 08/31/2020 7:44 AM TYPEWRITER ASSEMBLY AND PARTS INSPECTOR Sexual Orientation Straight 08/31/2020 7: 44 AM TYPEWRITER ASSEMBLY AND PARTS INSPECTOR documented as of this encounter Last Filed Vital Signs Vital Sign Reading Time Taken Comments Blood Pressure 158/96 05/23/2011 3:15 PM CDT Pulse 92 05/23/2011 3:15 PM CDT Temperature - - Respiratory Rate - - Oxygen Saturation - - Inhaled Oxygen Concentration - - Weight 111.1 kg (245 lb) 05/23/2011 3:15 PM CDT Height 179.1 cm (5' 10.5 ) 05/23/2011 3:15 PM CD T Body Mass Index 34.66 05/23/2011 3:15 PM CDT documented in this encounter Progress Notes * Perla Martinez - 05/23/2011 4:12 PM CDT Flu vaccine given IM L deltoid * Jose Rust DO - 05/23/2011 3:50 PM CDT SUBJECTIVE: Trenton Crockett is a 45 y.o. male is here today for : Chief Complaint Patient presents with ??? Hypertension Patient is here for a recheck on his blood pressure and to discuss the US results. ??? Pain Back low back stiffness and soreness in the low back, and up his spine. Outpatient Prescriptions Prior to Visit Medication Sig Dispense Refill ??? simvastatin (ZOCOR) 20 MG tablet Take 1 Tab by mouth once daily. 30 Tab 5 ??? omeprazole (PRILOSEC) 20 MG capsule Take 1 Cap by mouth once daily. 30 Cap 2 ??? amlodipine-benazepril (LOTREL) 5-20 MG capsule Take 1 Cap by mouth daily. 90 Cap 1 ??? omeprazole EC (PRILOSEC OTC) 20 MG tablet Take 20 mg by mouth daily before breakfast. ??? doxazosin (CARDURA) 2 MG tablet Take at HS. Take 1/2 tablet QD for the first 8 nights, then increase to 1 HS. 30 Tab 0 OBJECTIVE: BP 158/96 Pulse 92 Wt 245 lb (111.131 kg) BMI 34.66 kg/m2 General appearance - alert, well appearing, [...] organomegaly bowel sounds normal no abdominal bruits Extremities - peripheral pulses normal, no pedal edema, no clubbing or cyanosis Back - FROM L-spine, SLR neg at 90 degrees bilat. ASSESSMENT/PLAN: 1. HTN (hypertension), benign doxazosin (CARDURA) 4 MG tablet 2. Hepatic steatosis 3. Need for influenza vaccination FLU VACCINE >3YO IM Medications Discontinued During This Encounter Medication Reason ??? doxazosin (CARDURA) 2 MG tablet ??? omeprazole EC (PRILOSEC OTC) 20 MG tablet ??? doxazosin (CARDURA) 2 MG tablet Reorder Current Outpatient Prescriptions Medication Sig Dispense Refill ??? Multiple Vitamin Essential TABS Take by mouth once daily. ??? fish oil/omega-3 fatty acids (FISH OIL) 1000 MG capsule Take 1,000 mg by mouth once daily. ??? doxazosin (CARDURA) 4 MG tablet Take 0.5 Tabs by mouth at bedtime. 30 Tab 2 ??? simvastatin (ZOCOR) 20 MG tablet Take 1 Tab by mouth once daily. 30 Tab 5 ??? omeprazole (PRILOSEC) 20 MG capsule Take 1 Cap by mouth once daily. 30 Cap 2 ??? amlodipine-benazepril (LOTREL) 5-20 MG capsule Take 1 Cap by mouth daily. 90 Cap 1 Recheck in 3 mo's documented in this encounter Plan of Treatment Not on file documented as of this encounter Visit Diagnoses Diagnosis HTN (hypertension), benign- Primary Essential hypertension, benign Hepatic steatosis Other chronic nonalcoholic liver disease Need for influenza vaccination Need for prophylactic vaccination and inoculation against influenza documented in this encounter
--- OUTSIDE RECORDS SUMMARY | 2024-09-06 20:29 | XMS_ITS | Encounter Summary ---
Author Organization [facility] Address [address] [place] [address] Care Team Providers Care Pc Network Technician Name Role Phone Alf Khan DO Primary Care Provider Stephan rosa Reason for Visit * Reason Comments Pain Back patient here today c ont to have ongoing back patient also states that he needs at sleep study Referral patient requesting r eferral for sleep study Encounter Details Date Type Department Care Team (Latest Contact Info) Description 08/17/2015 2:45 PM ARMY SENIOR OFFICER Office Visit [facility] - Family Medicine [address] [place] [address] Alf Khan DO Metabolic syndrome (Primary Dx); HTN (hypertension), benign; Degeneration of lumbar or lumbosacral intervertebral disc; Glucose intolerance (impaired glucose tolerance); Mixed hyperlipidemia; Hypersomnia; Bilateral low back pain without sciatica Social History Tobacco Use Types Packs/Day Years Used Date Smoking Tobacco: Former Cigarettes 1.5 25 0 12/07/1985 - 12/07/2010 Smokeless Tobacco: Never Alcohol Use Standard Drinks/Week Comments Yes 0 (1 standard drink = 0.6 oz pur e alcohol) social Sex and Gender Information Value Date Recorded Sex Assigned at Male 08/31/2020 7:44 AM ARMY SENIOR OFFICER Gender Identity Male 08/31/2020 7:44 AM ARMY SENIOR OFFICER Sexual Orientation Straight 08/31/2020 7: 44 AM ARMY SENIOR OFFICER documented as of this encounter Last Filed Vital Signs Vital Sign Reading Time Taken Comments Blood Pressure 142/89 08/17/2015 2:58 PM ARMY SENIOR OFFICER Pulse 79 08/17/2015 2:58 PM ARMY SENIOR OFFICER Temperature 37.2 ??C (99 ??F) 08/17/2015 2:58 PM ARMY SENIOR OFFICER Respiratory Rate - - Oxygen Saturation 95% 08/17/2015 2:58 PM ARMY SENIOR OFFICER Inhaled Oxygen Concentration - - Weight 117.5 kg (259 lb) 08/17/2015 2:58 PM ARMY SENIOR OFFICER Height 180.3 cm (5' 11 ) 08/17/2015 2:58 PM ARMY SENIOR OFFICER Body Mass Index 36.12 08/17/2015 2:58 PM ARMY SENIOR OFFICER documented in this encounter Functional Status Functional [...] * Patient Instructions* Puja Raymundo R - 08/17/2015 3:03 PM ARMY SENIOR OFFICER Caring for Your High Blood Pressure Healthy [...] Where can I go for more information? [place] [employer] National Center: http://www.americanheart.org 1. In the top header, click ???Conditions?? . 2. In the top header, click ???high blood pressure.?? 3. For a printable blood pressure tracker, scroll toward the bottom of the page to Related Tools, and click ???HBP Trackers.?? 9-222-THD-USA-1 or ( ) National Heart, Lung and Blood [place]: http://www.nhlbi.nih.gov/health/infoctr/index.htm SENIOR OFFICER documented in this encounter Progress Notes * Alf Khan, - 08/17/2015 3:27 PM CST Images from the original note were not included. Office Visit, Established Patient, [id number] HISTORY: SYDNEE Trenton Crockett is a 49 y.o. male patient, here for: Chief Complaint Patient presents with ??? Pain Back patient here today cont to have ongoing back patient also states that he needs at sleep study ??? 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 Is not tired during the day snores and and no witness apnea and no waking startled and has HBP and has to have a sleep study. HBP is stable on med and NO CP or SOB He needs to repeat his labs for glucose Int and lipids and ordered today he has metabolic syndrome and has not lost weight nor ck his labs He still has low back pain and asks about RF of pain Rxhe says 120 will last months. Told him we need to get low back x ray and PT as well to try and fix the problem Patient Active Problem List Diagnosis Date Noted [...] CAPSULE BY MOUTH DAILY 30 Cap 0 ??? valsartan (DIOVAN) 160 MG tablet TAKE 1 TABLET BY MOUTH DAILY 30 Tab 5 ??? dicyclomine (BENTYL) 10 MG capsule Take 1 Cap by mouth 4 times daily as needed. 100 Cap 5 ??? tobramycin (TOBREX) 0.3 % ophthalmic solution Instill 1 Drop into both eyes every 4 hours 1 Bottle 0 ??? hydrocodone-acetaminophen (NORCO) 7.5-325 MG tablet Take 1 Tab by mouth every 4 hours as neededfor Pain. (Patient not taking: Reported on 08/17/2015) 120 Tab 0 ??? tamsulosin CR 24hr (FLOMAX) 0.4 MG capsule Take 1 Cap by mouth once daily. Take 30 minutes after a meal at the same time each day. 30 Cap 11 ??? gabapentin (NEURONTIN) 600 MG tablet Take 0.5-1 Tabs by mouth 4 times daily. (Patient not taking: Reported on 08/17/2015) 90 Tab 5 ??? pravastatin (PRAVACHOL) 40 [...] No family history on file. EXAM BP 142/89 mmHg Pulse 79 Temp(Src) 99 ??F (Temporal) Wt 117.482 kg (259 lb) BMI 36.14 kg/m2 SpO2 95% FiO2: General appearance - [...] SCORE: 0 PHQ-9: ASSESSMENT: ICD-10-CM ICD-9-CM 1. Metabolic syndrome E88.81 277.7 2. HTN (hypertension), benign I10 401.1 AMB REFERRAL TO SLEEP STUDIES 3. Degeneration of lumbar or lumbosacral intervertebral disc M51.37 722.52 4. Glucose intolerance (impaired glucose tolerance) R73.02 790.22 HEMOGLOBIN A1C 5. Mixed hyperlipidemia E78.2 272.2 COMPREHENSIVE METABOLIC PANEL LIPID PROFILE W TCHOL/HDL (PO REF LAB) 6. Hypersomnia G47.10 780.54 AMB REFERRAL TO SLEEP STUDIES 7. Bilateral low back pain without sciatica M54.5 724.2 XR LUMBAR SPINE 4+ VW AMB REFERRAL TO PHYSICAL THERAPY PLAN: Orders Placed This Encounter ??? XR LUMBAR SPINE 4+ VW Standing Status: Future Number of Occurrences: Standing Expiration Date: 08/16/2016 Order Specific Question: Exam to be performed? Answer: Per Radiologist protocol ??? COMPREHENSIVE METABOLIC PANEL ??? LIPID PROFILE W TCHOL/HDL (PO REF LAB) ??? HEMOGLOBIN A1C ??? AMB REFERRAL TO SLEEP STUDIES Standing Status: Future Number of Occurrences: Standing Expiration Date: 08/17/2016 Referral Type: Procedure Referral Reason: Specialty Services Required Number of Visits Requested: 1 ??? AMB REFERRAL TO PHYSICAL THERAPY Standing Status: Future Number of Occurrences: Standing Expiration Date: 08/16/2016 Referral Type: PT/OT/ST Referral Reason: Specialty Services Required Referral Location: [facility] - [facility] ([facility]) Number of Visits Requested: 1 ??? hydrocodone-acetaminophen (NORCO) 7.5-325 MG tablet Sig: Take 1 Tab by mouth every 4 hours as needed for Pain Dispense: 120 Tab Refill: 0 Goals ? ? Blood Pressure < 140/90 Medications Discontinued During This Encounter Medication Reason ??? tobramycin (TOBREX) 0.3 % ophthalmic solution Completed previously ??? gabapentin (NEURONTIN) 600 MG tablet ??? hydrocodone-acetaminophen (NORCO) 7.5-325 MG tablet Reorder Current Outpatient Prescriptions Medication Sig Dispense Refill ??? hydrocodone-acetaminophen (NORCO) 7.5-325 MG tablet Take 1 Tab by mouth every 4 hours as neededfor Pain 120 Tab 0 ??? omeprazole (PRILOSEC) 20 MG capsule TAKE 1 CAPSULE BY MOUTH DAILY 30 Cap 0 ??? valsartan (DIOVAN) 160 MG tablet TAKE 1 TABLET BY MOUTH DAILY 30 Tab 5 ??? dicyclomine (BENTYL) 10 MG capsule Take 1 Cap by mouth 4 times daily as needed. 100 Cap 5 ??? tamsulosin CR 24hr (FLOMAX) 0.4 MG capsule Take 1 Cap by mouth once daily. Take 30 minutes after a meal at the same time each day. 30 Cap 11 ??? pravastatin (PRAVACHOL) 40 MG tablet Take 1 tablet by mouth at bedtime. 30 tablet 5 ??? albuterol HFA (PROAIR HFA) 108 (90 BASE) MCG/ACT inhaler Inhale 2 Puffs by mouth every 6 hours as needed. No current facility-administered medications for this visit. L spine xray with arthritis ar L5 level discs ok SE of meds discussed with patient and best way to take medication. All questions answered. Safe use and storage of controlled meds reviewed with pt again today Return to office in 3 months. Patient instructed to call with any concerns or problems. SENIOR OFFICER documented in this encounter Plan of Treatment Scheduled Orders Name Type Priority Associated Diagnoses Orde r Schedule COMPREHENSIVE METABOLIC PANEL Lab Routine Mixed hyperlipidemia Ordered: 08/17/2015 LIPID PROFILE W TCHOL/HDL (PO REF LAB) Lab Routine Mixed hyperlipidemia Ordered: 08/17/2015 HEMOGLOBIN A1C Lab Routine Glucose intolerance (impaired glucose tolerance) Ordered: 08/17/2015 documented as of this encounter Goals Goal Patient Goal Type Associated Problems Recent Progress Patient-Stated? Author Blood Pressure < 140/90 Blood Pressure 172/93(2022 8:59 AM CDT) No Zachary Moreno documented as of this encounter Results * XR LUMBAR SPINE 4+ VW (08/17/2015 4:05 PM AR[employer] SENIOR OFFICER) Anatomical Region Laterality Modality Spine Radiographic Nataliya ging 08/17/2015 4:11 PM ARMY SENIOR OFFICER Impressions 08/17/2015 4:12 PM AR[employer] SENIOR OFFICER No acute osseous abnormality Degenerative changes Narrative 08/17/2015 4:12 PM AR[employer] SENIOR OFFICER Lumbar spine 5 views Indication: Low back [...] documented in this encounter Visit Diagnoses Diagnosis Metabolic syndrome- Primary Dysmetabolic Syndrome X HTN (hypertension), benign Essential hypertension, benign Degeneration of lumbar or lumbosacral intervertebral disc Glucose intolerance (impaired glucose tolerance) Impaired glucose tolerance test Mixed hyperlipidemia Hypersomnia Hypersomnia, unspecified Bilateral low back pain without sciatica Bilateral low back pain without sciatica documented in this encounter Care Teams Pc Network Technician Relationship Specialty Start Date End Date Alf Khan DO PCP - General Family Medicine 09/03/13 02/27/23 documented as of this encounter
--- OUTSIDE RECORDS SUMMARY | 2024-09-06 20:30 | XMS_ITS | Clinical Summary ---
Author Organization [facility] Address [address] [place] [address] Care Team Providers Care Compress Machine Operator Name Role Phone Alf Khan DO Primary Care Provider [phone] Allergies Active Allergy Reactions Criticality Noted Date Comments Perry Inhibitors Cough Low 09/30/2009 Azithromycin Hives Medium 07/11/2021 Medications HYDROcodone-perry taminophen (NORCO) 5-325 mg per tabletIndicatio ns:Pain Take 1 tablet by mouth every 4 (four) hours as needed for pain 12 tablet 07/11/2021 Active OneTouch Verio test strips strip USE TO TEST BLOOD SUGAR 1 TO 3 TIMES PER DAY NEEDED 03/26/2023 Active OneTouch Verio Flex meter misc USE DIRECTED TO TEST 1 TO 3 TIMES PER DAY NEEDED 03/26/2023 Active metFORMIN XR (GLUCOPHAGE XR) 500 mg 24 hr tablet Take 1 tablet (500 mg total) by mouth daily 03/25/2023 Active Active Problems No known active problems Immunizations Name Administration Dates Next Due Tdap 07/11/2021 Social History Tobacco Use Types Packs/Day Years Used Date Smoking Tobacco: Never Assessed Sex and Gender Information Value Date Recorded Sex Assigned at Not on file Legal Sex Male 10:34 AM CLIENT SOLUTIONS DIRECTOR Gender Identity Not on file Sexual Orientation Not on file Obstetrics History Last Filed Vital Signs Vital Sign Reading Time Taken Comments Blood Pressure 162/82 04/20/2023 3:43 PM CDT Pulse 83 04/20/2023 3:43 PM CDT Temperature 36.8 ??C (98.3 ??F) 04/20/2023 3:43 PM CD T Respiratory Rate 16 04/20/2023 3:43 PM CDT Oxygen Saturation 95% 04/20/2023 3:43 PM CDT Inhaled Oxygen Concentration - - Weight 113.9 kg (251 lb) 04/20/2023 3:43 PM CDT Height 180.3 cm (5' 11 ) 04/20/2023 3:43 PM CDT Body Mass Index 35.01 04/20/2023 3:43 PM CDT Plan of Treatment Health Maintenance Due Date Last Done Comments Colon Cancer Screening-Colonoscopy 1965 Depression Screening 1965 Hepatitis C Screening 1965 Prostate Cancer Screening-PSA 1965 Pneumococcal vaccine <65 (1 of 2 - PCV) 11/30/1971 Hepatitis B Screening 11/30/1983 Regular Well Visit/Exam 18-64 11/30/1983 Zoster Vaccine (1 of 2) 11/30/2015 Influenza Vaccine (#1) 2024 05/23/2011 DTaP/Tdap/Td Vaccine (3 - Td or Tdap) 07/11/2031, 06/10/2012 Insurance [employer] [place] Care Teams Compress Machine Operator Relationship Specialty Start Date End Date Alf Khan DO [address] [place] [address] PCP - General 07/11/21
--- OUTSIDE RECORDS SUMMARY | 2024-09-06 20:30 | XMS_ITS | Encounter Summary ---
Author Organization [facility] Address [address] [place] [address] Care Team Providers Care Home Economist Name Role Phone Unavailable Primary Care Provider Unavailabl e Reason for Visit * Reason Onset Date Comments Encounter Opened In Error 09/19/2022 Encounter Details Date Type Department Care Team (Late st Contact Info) Description 04/06/2010 8:00 AM CDT Office Visit [facility] - Family Medicine [address] [place] [address] ERRONEOUS ENCOUNTER--DISREGARD (Primary Dx) Social History Tobacco Use Types Packs/Day Years Used Date Smoking Tobacco: Every Day Alcohol Use Standard Drinks/Week Comments Not Asked 0 (1 standard drink = 0.6 oz pur e alcohol) PHQ-2 Answer Date Recorded PHQ2 TOTAL SCORE 0 09/19/2022 Sex and Gender Information Value Date Recorded Sex Assigned at Male 08/31/2020 7:44 AM DUPLICATION SPECIALIST Gender Identity Male 08/31/2020 7:44 AM DUPLICATION SPECIALIST Sexual Orientation Straight 08/31/2020 7: 44 AM DUPLICATION SPECIALIST COVID-19 Exposure Response Date Recorded In the last month, have you been in contact with someone who was confirmed or suspected to have Coronavirus / COVID-19? No / Unsure 07/13/2021 9:06 AM DUPLICATION SPECIALIST documented as of this encounter Progress Notes * Alexi Perez - 09/19/2022 2:41 PM CST Trenton Crockett encounter was opened in error. Please disregard any activity associated with this encounter. ICATION SPECIALIST documented in this encounter Plan of [...]
--- OUTSIDE RECORDS SUMMARY | 2024-09-06 20:30 | XMS_ITS | Encounter Summary ---
Author Organization [facility] Address [address] [place] [address] Care Team Providers Care It Analyst Name Role Phone Unavailable Primary Care Provider Unavailabl e Reason for Visit * Reason Onset Date Comments Medication Request 09/30/2009 Encounter Details Date Type Department Care Team (Late st Contact Info) Description 09/30/[address] [facility] - Family Medicine [address] [place] [id number] Jose Rust DO [address] [place] [address] Medication Request Social History Tobacco Use Types Packs/Day Years Used Date Smoking Tobacco: Every Day Alcohol Use Standard Drinks/Week Comments Not Asked 0 (1 standard drink = 0.6 oz pur e alcohol) Sex and Gender Information Value Date Recorded Sex Assigned at Male 08/31/2020 7:44 AM COUNSELLING PSYCHOLOGIST Gender Identity Male 08/31/2020 7:44 AM COUNSELLING PSYCHOLOGIST Sexual Orientation Straight 08/31/2020 7: 44 AM COUNSELLING PSYCHOLOGIST documented as of this encounter Miscellaneous Notes * Telephone Encounter - Marcela Soria - 09/30/2009 1:57 PM CST Called pt back and advised of dr response re the cough. SELLING PSYCHOLOGIST * Telephone Encounter - Perla Martinez - 09/30/2009 1:54 PM CST The persistent cough could be from the lisinopril, sometimes it is a side effect. Try the new Rx and see if the cough resolves. SELLING PSYCHOLOGIST * Telephone Encounter - Marcela Soria - 09/30/2009 1:43 PM CST Called pt back re his blood pressure medicine. Wanted to know if you are going to prescribe something for the non productive cough? SELLING PSYCHOLOGIST * Telephone Encounter - Jose Rust DO - 09/30/2009 1:39 PM CST D/C the lisinopril. Start new Rx for b/p and see in 3 mo's. Call sooner with problems. SELLING PSYCHOLOGIST * Telephone Encounter - Bernadine Smith - 09/30/2009 9:40 AM CST Pt states that he wants you to change his current blood pressure medication lisinopril/hctz 20/12.5mg tab to something different because his bowel movements are uncontrollable with the water pill added Pt also states that he has had a bad cough for about a week non prod. SELLING PSYCHOLOGIST documented in this encounter Plan of Treatment Not on file documented as of this encounter Visit Diagnoses Not on filedocumented in this encounter
--- OUTSIDE RECORDS SUMMARY | 2024-09-06 20:30 | XMS_ITS | Encounter Summary ---
Author Organization [facility] Address [address] [place] [id number] Care Team Providers Care Rotary Cutter Feeder Name Role Phone Unavailable Primary Care Provider Unavailabl e Reason for Visit * Reason Onset Date Comments Encounter Opened In Error 01/19/2022 Encounter Details Date Type Department Care Team (Late st Contact Info) Description 10/03/2007 12:10 PM CARVER HAND Office Visit [address] [address] Jose Rust, [address] [place] [address] ERRONEOUS ENCOUNTER--DISREGARD (Primary Dx) Social History Tobacco Use Types Packs/Day Years Used Date Smoking Tobacco: Never Assessed PHQ-2 Answer Date Recorded PHQ2 TOTAL SCORE 0 01/18/2022 Sex and Gender Information Value Date Recorded Sex Assigned at Male 08/31/2020 7:44 AM CARVER HAND Gender Identity Male 08/31/2020 7:44 AM CARVER HAND Sexual Orientation Straight 08/31/2020 7: 44 AM CARVER HAND COVID-19 Exposure Response Date Recorded In the last month, have you been in contact with someone who was confirmed or suspected to have Coronavirus / COVID-19? No / Unsure 07/13/2021 9:06 AM CARVER HAND documented as of this encounter Progress Notes * Alexi Perez - 01/19/2022 11:41 AM CDT Trenton Crockett encounter was opened in error. [...]
--- OUTSIDE RECORDS SUMMARY | 2024-09-06 20:30 | XMS_ITS | Encounter Summary ---
Author Organization [facility] Address [address] [place] [address] Care Team Providers Care Ediscovery Project Manager Name Role Phone Unavailable Primary Care Provider Unavailabl e Reason for Referral * Evaluate & Treat Specialty Diagnoses / Procedures Referred By Jean sosa Referred To Contact Jammie Mata DO [address] [facility] [address] [place] [address] [facility] [employer] [place] [employer], [facility] [id number] [place] [address] [address] [place] [id number] Referral ID Status Reason Start Date Expiration Date V isits Requested Visits Authorized Specialty Services Required Scheduling Instructions MD Kev Deshpande MD Daniel J. [place], [place] [id number] [facility], [address] [place] [address] Hours: Th 8am to 11:30am Encounter Details Date Type Department Care Team (Late st Contact Info) Description 04/06/[address] [facility] [address] [facility] [place] [address] Jammie Mata DO [address] [facility] [address] [place] [address] Cervical Stenosis of Spinal Canal Social History Tobacco Use Types Packs/Day Years Used Date Smoking Tobacco: Every Day Alcohol Use Standard Drinks/Week Comments Not Asked 0 (1 standard drink = 0.6 oz pur e alcohol) Sex and Gender Information Value Date Recorded Sex Assigned at Male 08/31/2020 7:44 AM SHUTTLE FIXER Gender Identity Male 08/31/2020 7:44 AM SHUTTLE FIXER Sexual Orientation Straight 08/31/2020 7: 44 AM SHUTTLE FIXER documented as of this encounter Plan of Treatment Scheduled Referrals Name Type Priority Associated Diagnoses Order Schedule AMB REFERRAL TO NEUROSURGERY Outpatient Referral Routine Cervical Stenosis of Spinal Canal Ordered: 04/06/2009 documented as of this encounter Visit Diagnoses Diagnosis Cervical stenosis of spinal canal- Primary Spinal stenosis in cervical region documented in this encounter
--- OUTSIDE RECORDS SUMMARY | 2024-09-06 20:30 | XMS_ITS | Encounter Summary ---
Author Organization [facility] Address [address] [place] [address] Care Team Providers Care Oss Architect Name Role Phone Unavailable Primary Care Provider Trang e Encounter Details Date Type Department Care Team (Latest Contact Info) Description 03/31/2009 8:56 AM CDT - 03/31/2009 11:59 PM CDT Hospital Encounter [facility] - Radiology [address] [place] [address] Discharge Disposition: Home or Self Care Social History Tobacco Use Types Packs/Day Years Used Date Smoking Tobacco: Every Day Alcohol Use Standard Drinks/Week Comments Not Asked 0 (1 standard drink = 0.6 oz pur e alcohol) Sex and Gender Information Value Date Recorded Sex Assigned at Male 08/31/2020 7:44 AM RELIABILITY ENGINEER Gender Identity Male 08/31/2020 7:44 AM RELIABILITY ENGINEER Sexual Orientation Straight 08/31/2020 7: 44 AM RELIABILITY ENGINEER documented as of this encounter Medications at Time of Discharge Medication Sig Dispensed Refills Start Date End Date albuterol HFA (PROVENTIL;VENTOLIN;PROAI R) 108 (90 BASE) MCG/ACT inhalerIndications:Acute bronchitis Inhale 2 Puffs by mouth every 6 hours as needed 1 3 03/25/2009 03/28/2010 aspirin 81 MG tablet Take 81 mg by mouth daily. 06/16/2009 Choline Fenofibrate (TRILIPIX) 135 MG CPDRIndications:Hyperlipi demia Take 135 mg by mouth daily. 30 6 03/25/2009 06/16/2009 lisinopril (ZESTRIL) 20 MG tabletIndications:HTN Take 1 Tab by mouth daily. 90 1 03/25/2009 06/16/2009 methylPREDNISolone (MEDROL DOSEPAK) 4 MG tabletIndications:Sprain thoracic region Take 1 Tab by mouth as directed. 21 0 03/25/2009 06/16/2009 propoxyphene napsylate-acetaminophen (DARVOCET-N 100) 100-650 MG tablet Take 1 Tab by mouth every 4 hours as needed for Pain. 20 0 03/30/2009 06/16/2009 simvastatin (ZOCOR) 20 MG tabletIndications:Hyperli pidemia Take 1 Tab by mouth daily. 90 1 03/25/2009 03/30/2010 tramadol (ULTRAM) 50 MG tabletIndications:Sprain thoracic region Take 1 Tab by mouth every 6 hours as needed for Pain. 40 0 03/25/2009 06/16/2009 documented as of this encounter Miscellaneous Notes * Miscellaneous Scans - Document, Scanned - 03/31/2009 12:00 AM CDT * Miscellaneous Scans - Document, Scanned - 03/31/2009 12:00 AM CDT documented in this encounter Plan of Treatment Not on file documented as of this encounter Procedures Procedure Name Priority Date/Time Associated Diagnosis Comments XR CERVICAL SPINE 4 OR 5VW Routine 03/31/2009 9:21 AM CDT Cervical Radiculopathy documented in this encounter Results * XR CERVICAL SPINE MIN 4+ VW (03/31/2009 9:21 AM CDT) Anatomical Region Laterality Modality Spine Radiographic Nataliya ging 03/31/2009 10:1 4 AM CDT Impressions 03/31/2009 11:43 AM CDT No fracture or dislocation identified. ??See above. ? Narrative 03/31/2009 11:43 AM CDT Examination: Cervical spine six views Indication: ??Neck pain. No fracture or dislocation identified. The joint alignment is normal. Bone mineral content is within expected range for the patient's stated age. If the patient's symptoms persist or worsen, consideration may be given to an alternative imaging modality such as an MRI or bone scan to check for an occult process. Procedure Note Patric Duval MD - 03/31/2009 Examination: Cervical spine six views Indication: Neck pain. No fracture or dislocation identified. The joint alignment is normal. Bone mineral content is within expected range for the patient's stated age. If the patient's symptoms persist or worsen, consideration may be given to an alternative imaging modality such as an MRI or bone scan to check for an occult process. IMPRESSION No fracture or dislocation identified. See above. Jammie Mata DO DIAGNOSTIC IMAGIN G ORDERABLES documented in this encounter Visit Diagnoses Not on filedocumented in this encounter
--- OUTSIDE RECORDS SUMMARY | 2024-09-06 20:30 | XMS_ITS | Encounter Summary ---
Author Organization [facility] Health Address [address] [place] [address] Care Team Providers Care Parking Lot Attendant Name Role Phone Unavailable Primary Care Provider Trang e Encounter Details Date Type Department Care Team (Latest Contact Info) Description 03/31/2009 8:49 AM CDT - 03/31/2009 11:59 PM CDT Hospital Encounter [facility] - Radiology [id number] [place], [place] [id number] Jammie Mata DO [address] [facility] [address] [place] [address] Diagnostic Discharge Disposition: Home or Self Care Social History Tobacco Use Types Packs/Day Years Used Date Smoking Tobacco: Every Day Alcohol Use Standard Drinks/Week Comments Not Asked 0 (1 standard drink = 0.6 oz pur e alcohol) Sex and Gender Information Value Date Recorded Sex Assigned at Male 08/31/2020 7:44 AM [employer]OLS DEVELOPER Gender Identity Male 08/31/2020 7:44 AM TOOLS DEVELOPER Sexual Orientation Straight 08/31/2020 7: 44 AM TOOLS DEVELOPER documented as of this encounter Medications at [...] 03/25/2009 06/16/2009 documented as of this encounter Plan of Treatment Not on file documented as of this encounter Visit Diagnoses Not on filedocumented in this encounter
--- OUTSIDE RECORDS SUMMARY | 2024-09-06 20:30 | XMS_ITS | Encounter Summary ---
Author Organization [facility] Healthcare Address [address] [place] [address] Care Team Providers Care Research Hydrologist Name Role Phone Alf KhanRamses SMITH Primary Care Provider [phone] Reason for Visit * Reason Comments Head Injury Encounter Details Date Type Department Care Team (Late st Contact Info) Description 07/11/2021 5:23 PM CLIENT APPLICATION SUPPORT ENGINEER - 07/11/2021 8:27 PM CLIENT APPLICATION SUPPORT ENGINEER Emergency [facility] Emergency Department [address] [place] [id number] Malick Shukla MD [address] [place] [address] Head injury, initial encounter (Primary Dx); Closed head injury, initial encounter; Laceration of scalp, initial encounter; Neck pain; Acute bilateral low back pain without sciatica; Musculoskeletal back pain Discharge Disposition: Discharge to home or self care Social History Tobacco Use Types Packs/Day Years Used Date Smoking Tobacco: Never Assessed Sex and Gender Information Value Date Recorded Sex Assigned at Not on file Legal Sex Male 10:34 AM CLIENT APPLICATION SUPPORT ENGINEER Gender Identity Not on file Sexual Orientation Not on file documented as of this encounter Last Filed Vital Signs Vital Sign Reading Time Taken Comments Blood Pressure 165/82 07/11/2021 5:02 PM CLIENT APPLICATION SUPPORT ENGINEER Pulse 85 07/11/2021 5:02 PM CLIENT APPLICATION SUPPORT ENGINEER Temperature 36.4 ??C (97.6 ??F) 07/11/2021 5:02 PM CS T Respiratory Rate 18 07/11/2021 5:02 PM CLIENT APPLICATION SUPPORT ENGINEER Oxygen Saturation 95% 07/11/2021 5:02 PM CLIENT APPLICATION SUPPORT ENGINEER Inhaled Oxygen Concentration - - Weight 117 kg (258 lb) 07/11/2021 5:02 PM CLIENT APPLICATION SUPPORT ENGINEER Height 180.3 cm (5' 11 ) 07/11/2021 5:02 PM CLIENT APPLICATION SUPPORT ENGINEER Body Mass Index 35.98 07/11/2021 5:02 PM CLIENT APPLICATION SUPPORT ENGINEER documented in this encounter Discharge Diagnoses Diagnosis Unspecified injury of head, initial encounter - UNSPECIFIED INJURY OF HEAD, INITIAL ENCOUNTER Laceration without foreign body of scalp, initial encounter - LACERATION WITHOUT FOREIGN BODY OF SCALP, INITIAL ENCOUNTER Encounter for immunization - ENCOUNTER FOR IMMUNIZATION Cervicalgia - CERVICALGIA Low back pain, unspecified - LOW BACK PAIN, UNSPECIFIED Striking against or struck by other objects, initial encounter - STRIKING AGAINST OR STRUCK BY OTHER OBJECTS, INITIAL ENCOUNTER Activity, other specified - ACTIVITY, OTHER SPECIFIED Other specified places as the place of occurrence of the external cause - OTHER SPECIFIED PLACES THE PLACE OF OCCURRENCE OF THE EXTERNAL CAUSE Civilian activity done for income or pay - CIVILIAN ACTIVITY DONE FOR INCOME OR PAY documented in this encounter Discharge Instructions * Attachments The following attachments cannot be sent through Care Everywhere. * Laceration, Scalp: Sutures or [place] ([place]) documented in this encounter Ordered Prescriptions Prescription Sig Dispense Quantity Refills Last Filled Start Date End Date HYDROcodone-acetam inophen (NORCO) 5-325 mg per tabletIndications: Pain Take 1 tablet by mouth every 4 (four) hours as needed for pain 12 tablet 07/11/2021 cephalexin (KEFLEX) 500 mg capsuleIndications :Skin/Soft Tissue Infection Take 1 capsule (500 mg total) by mouth 3 (three) times a day for 5 days 15 capsule 07/11/2021 1 HYDROcodone-acetam inophen (NORCO) 5-325 mg per tabletIndications: Pain Take 1 tablet by mouth every 4 (four) hours as needed for pain 12 tablet 07/11/2021 1 cephalexin (KEFLEX) 500 mg capsuleIndications :Skin/Soft Tissue Infection Take 1 capsule (500 mg total) by mouth 3 (three) times a day for 5 days 15 capsule 07/11/2021 1 cephalexin (KEFLEX) 500 mg capsuleIndications :Skin/Soft Tissue Infection Take 1 capsule (500 mg total) by mouth 3 (three) times a day for 5 days 15 capsule 07/11/2021 1 documented in this encounter Discharge Disposition Disposition Code Departure Means Destination Comment s Discharge to home or self care Discharged by other documented in this encounter ED Notes * Alexa Cline NP - 07/11/2021 6:51 PM CST Images from the original note were not included. HPI Chief Complaint Patient presents with ??? Head Injury 55 y.o. year old male with No past medical history on file.; accompanied by family presents to ED with c/o Head Injury Denies fever, chills, nausea, vomiting, diarrhea, SOB, CP, numbness, tingling. Pt was hit with a flap off a concrete truck at 1000 this morning. Denies LOC or AMS. Pt has laceration to top of scalp. Pt has pain in neck and lower back. Pt is ambulatory without a limp or assistance. Pt took tylenol for pain relief. Pt is not UTD with tetanus. Denies other complaint at this time. Patient History: There are no problems to display for this patient. No past medical history on file. No past surgical history on file. No family history on file. Social History Tobacco Use ??? Smoking status: Not on file ??? Smokeless tobacco: Not on file Substance Use Topics ??? Alcohol use: Not on file ??? Drug use: Not on file Social History Social History Narrative ??? Not on file Review of Systems Review of Systems Constitutional: Negative. HENT: Negative. Respiratory: Negative. Cardiovascular: Negative. Gastrointestinal: Negative. Musculoskeletal: Positive for back pain and neck pain. Skin: Positive for wound. Neurological: Negative. All other systems reviewed and are negative. Physical Exam ED Triage Vitals [07/11/21 1702] Temp Pulse Resp BP SpO2 36.4 ??C (97.6 ??F) 85 18 165/82 95 % Temp src Heart Rate Source Patient Position BP Location FiO2 (%) -- -- -- -- -- Physical Exam Vitals and nursing note reviewed. Constitutional: General: He is awake. He is not in acute distress. Appearance: Normal appearance. He is normal weight. He is not ill-appearing, toxic-appearing or diaphoretic. HENT: Head: Normocephalic. Laceration present. Comments: Approximate 2.5 cm linear well approximated laceration to left parietal. Tenderness with touch. Scant serous drainage. Right Ear: Hearing and external ear normal. Left Ear: Hearing and external ear normal. Nose: Nose normal. Mouth/Throat: Lips: [place]. Mouth: Mucous membranes are moist. Eyes: General: Lids are normal. Cardiovascular: Rate and Rhythm: Normal rate. Pulses: Normal pulses. No decreased pulses. Pulmonary: Effort: Pulmonary effort is normal. Breath sounds: Normal breath sounds and air entry. Abdominal: General: Abdomen is flat. Bowel sounds are normal. Palpations: Abdomen is soft. Tenderness: There is no abdominal tenderness. Musculoskeletal: Cervical back: Full passive range of motion without pain and normal range of motion. Comments: No tenderness with palpation to spinous processes SPINE EXAM: full active range of motion throughout spine although pain reproduced in exact location, severity, and type in bilateral lumbar region with bending at waist; pain with palpation over the bilateral lumbar musculature region; No pain to palpation or percussion of spine and without step-off, deformity, ecchymosis, erythema, warmth, or swelling; negative straight leg raise test bilaterally; DTRs intact; intact distal pulse, motor, and sensory throughout. Distal sensation intact, capillary refill less than 2 seconds, pulse 2+. Skin: General: Skin is warm. Capillary Refill: Capillary refill takes less than 2 seconds. Findings: Laceration present. Neurological: General: No focal deficit present. Mental Status: He is alert and easily aroused. GCS: GCS eye subscore is 4. GCS verbal subscore is 5. GCS motor subscore is 6. Cranial Nerves: Cranial nerves are intact. Sensory: Sensation is intact. Motor: Motor function is intact. Coordination: Coordination is intact. Psychiatric: Attention and Perception: Attention normal. Mood and Affect: Mood normal. Speech: Speech normal. Behavior: Behavior normal. Behavior is cooperative. Thought Content: Thought content normal. Cognition and Memory: Cognition normal. Judgment: Judgment normal. [facility] ED Course as of 07/13/21 1124 Time: 07/11 2010 Comment: Exam pt comfortable, alert, full ROM neck, no tenderness. Comfortable posture, Pt is work comp reportable. Will RX for delayed presentation lac, antibiotic, and some pain meds. Off work. By: Malick Shukla MD Final diagnoses: Head injury, initial encounter Closed head injury, initial encounter Laceration of scalp, initial encounter Neck pain Acute bilateral low back pain without sciatica Musculoskeletal back pain Alexa Cline NP 07/13/21 1124 Cosigned by Malick Shukla MD at 07/14/2021 6:09 AM CLIENT APPLICATION SUPPORT ENGINEER NT APPLICATION SUPPORT ENGINEER NT APPLICATION SUPPORT ENGINEER * Maryann Watts RN - 07/11/2021 4:58 PM CST Patient arrives for evaluation of a head injury that happened at 1030 this morning. Patient states he was hit on the head by a piece of equipment at work. No LOC. Small laceration to the top of head.Patient states he's having head and neck pain. No nausea or vomiting. 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 Patient's stated name/ matches armband: Yes Allergies confirmed: yes Imaging: Pertinent imaging reviewed, correctly oriented and match to patient identifiers Lab/Diag test results: Pertinent lab/diag tests reviewed and match to patient identifiers Supplies, devices and special equipment are available: yes Immediately prior to the procedure a time out was called: a verbal verification by the procedure participants confirmed correct patient identity, correct site/side marked and visible (if applicable);agreement on procedure to be done; and correct patient positioning Anesthesia method: Topical application and local infiltration Topical anesthetic: LET gel Local anesthetic: Lidocaine 1% WITH epi Location: Scalp Scalp location: Mid-scalp Length (cm): 6 Preparation: Patient was prepped and draped in usual sterile fashion and imaging obtained to evaluate for foreign bodies Irrigation solution: Sterile saline Repair method: [place] Dressing: Antibiotic ointment and non-adherent dressing Patient tolerance of procedure: Tolerated well, no immediate complications Follow up with PCP in 10 days for staple removal - keep site clean Madeline Schwarz MD Resident 07/11/211999 Cosigned by Malick Shukla MD at 07/14/2021 6:09 AM CLIENT APPLICATION SUPPORT ENGINEER NT APPLICATION SUPPORT ENGINEER NT APPLICATION SUPPORT ENGINEER documented in this encounter Plan of Treatment Not on file documented as of this encounter Procedures Procedure Name Priority Date/Time Associated Diagnosis Comments ED LACERATION REPAIR Routine 07/11/2021 7:55 PM CLIENT APPLICATION SUPPORT ENGINEER CT CERVICAL SPINE WO CONTRAST ED 07/11/2021 6:37 PM CLIENT APPLICATION SUPPORT ENGINEER CT HEAD WO CONTRAST ED 07/11/2021 6 :37 PM CLIENT APPLICATION SUPPORT ENGINEER documented in this encounter Results * Laceration Repair (07/11/2021 7:55 PM CLIENT APPLICATION SUPPORT ENGINEER) Narrative Malick Shukla MD - 07/11/2021 7:55 PM CLIENT APPLICATION SUPPORT ENGINEER Madeline Schwarz MD ? 07/11/2021 ??8:00 PM Laceration Repair Date/Time: 07/11/2021 7:55 PM Performed by: Madeline Schwarz MD Authorized by: Malick Shukla MD RN Notified of Procedure: yes ?? 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 Imaging: ??Pertinent imaging reviewed, correctly oriented and match to patient identifiers Lab/Diag test results: ??Pertinent lab/diag tests reviewed and match to patient identifiers Supplies, devices and special equipment are available: yes ?? Immediately prior to the procedure a time out was called: a verbal verification by the procedure participants confirmed correct patient identity, correct site/side marked and visible (if applicable); agreement on procedure to be done; and correct patient positioning ?? Anesthesia method: ??Topical application and local infiltration Topical anesthetic: ??LET gel Local anesthetic: ??Lidocaine 1% WITH epi Location: ??Scalp Scalp location: ??Mid-scalp Length (cm): ??6 Preparation: ??Patient was prepped and draped in usual sterile fashion and imaging obtained to evaluate for foreign bodies Irrigation solution: ??Sterile saline Repair method: ??[place] Dressing: ??Antibiotic ointment and non-adherent dressing Patient tolerance of procedure: ??Tolerated well, no immediate complications Follow up with PCP in 10 days for staple removal - keep site clean us Malick Shukla MD IN CLINIC/BEDSIDE ORDERABLE S Final Result * CT Cervical Spine WO Contrast (07/11/2021 6:37 PM CLIENT APPLICATION SUPPORT ENGINEER) Anatomical Region Laterality Modality Spine N/A Computed Tomogra phy 07/11/2021 6:59 PM CLIENT APPLICATION SUPPORT ENGINEER Narrative 07/11/2021 7:08 PM CLIENT APPLICATION SUPPORT ENGINEER EXAM DESCRIPTION: ?? CT CERVICAL SPINE WO CONTRAST REASON FOR STUDY: ?? Neck pain, initial exam, fall neck pain ??Evaluation of a head injury that happened at 1030 this morning. Patient states he was hit on the head by a piece of equipment at work. Small laceration to the top of left side of head. Patient states he's having head and neck pain. No nausea or ?? vomiting. ?? TECHNIQUE: ??Axial images through the cervical spine with sagittal and coronal reformatted images. Automated exposure control was used as a dose optimization technique for this examination. COMPARISON: ?? None available FINDINGS: ALIGNMENT: ??Straightening of the expected cervical lordosis is noted with mild reversal of curvature. ??Facet joints appear aligned. ??There is no spondylolisthesis. ??There is mild osteoarthritis the facet joints. VERTEBRAE: ??Vertebral body height appears relatively well-maintained. ?? Mild-moderate marginal osteophyte formation is present. ??Odontoid process appears intact. ??Lateral masses demonstrate customary orientation with respect to the dens. ??Mild marginal osteophyte formation is present. DISCS: ??Mild intervertebral disc height loss is noted. HARDWARE: ??None in the spine. INDIVIDUAL DISC LEVELS: ??Moderate left-sided neuroforaminal stenosis at C6-C7 is present. LUNG APICES: ??Not included NECK SOFT TISSUES: ??No significant abnormality. OTHER: ??No other significant findings. IMPRESSION: ?? 1. ??No evidence of cervical spine fracture. 2. 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 THIS IS AN ELECTRONICALLY VERIFIED FINAL REPORT 07/11/2021 7:08 PM - Electronically signed by Luis Yao M.D. AT: AT D: ??07/11/2021 7:08 PM T: ??07/11/2021 7:08 PM Report ID: [id number] Reading Location: ??[id number] Procedure Note Luis Yao MD - 07/11/2021 EXAM DESCRIPTION: CT CERVICAL SPINE WO CONTRAST REASON FOR STUDY: Neck pain, initial exam, fall neck pain Evaluation ofa head injury that happened at 1030 this morning. Patient states he was hiton the head by a piece of equipment at work. Small laceration to the top ofleft side of head. Patient states he's having head and neck pain. No nausea or vomiting. TECHNIQUE: Axial images through the cervical spine with sagittal andcoronal reformatted images. Automated exposure control was used as a doseoptimization technique for this examination. COMPARISON: None available FINDINGS: ALIGNMENT: Straightening of the expected cervical lordosis is noted withmild reversal of curvature. Facet joints appear aligned. There is no spondylolisthesis. There is mild osteoarthritis the facet joints. VERTEBRAE: Vertebral body height appears relatively well-maintained. Mild-moderate marginal osteophyte formation is present. Odontoid process appears intact. Lateral masses demonstrate customary orientation withrespect to the dens. Mild marginal osteophyte formation is present. DISCS: Mild intervertebral disc height loss is noted. HARDWARE: None in the spine. INDIVIDUAL DISC LEVELS: Moderate left-sided neuroforaminal stenosis atC6-C7 is present. LUNG APICES: Not included NECK SOFT TISSUES: No significant abnormality. OTHER: No other significant findings. IMPRESSION: 1. No evidence of cervical spine fracture. 2. 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 THIS IS AN ELECTRONICALLY VERIFIED FINAL REPORT 07/11/2021 7:08 PM - Electronically signed by Luis Yao M.D. AT: AT Report ID: [id number] Reading Location: [id number] Alexa Cline [facility] IMG CT PROCEDURES Final Res ult * CT Head WO Contrast (07/11/2021 6:37 PM CLIENT APPLICATION SUPPORT ENGINEER) Anatomical Region Laterality Modality Head and Neck N/A Computed Tomogra phy 07/11/2021 6:51 PM CLIENT APPLICATION SUPPORT ENGINEER Narrative 07/11/2021 6:59 PM CLIENT APPLICATION SUPPORT ENGINEER EXAM DESCRIPTION: ?? CT HEAD WO CONTRAST REASON FOR STUDY: ?? Head trauma, mod-severe, head injury ??Evaluation of a head injury that happened at 1030 this morning. Patient states he was hit on the head by a piece of equipment at work. Small laceration to the top of left side of head. Patient states he's having head and neck pain. No nausea or ?? vomiting. ?? TECHNIQUE: ??Axial images acquired through the brain without intravenous contrast. ??Images stored on PACS. ?? Automated exposure control was used as a dose optimization technique for this examination. COMPARISON: ?? None available FINDINGS: BRAIN: ??No hemorrhage, edema or mass effect. No recent infarct. ??Mild generalized cerebral and cerebellar volume loss is noted. ??Areas of decreased attenuation within the periventricular white matter are present. ??Focal decreased attenuation left cerebellum around axial image 16 is most compatible with either dilated cerebellar folia or minor encephalomalacia. ?? EXTRA-AXIAL SPACES: ??No fluid collections. No masses. CALVARIUM: ??Laceration over the left aspect of the calvarium is noted near the vertex. ??No underlying fracture. ??No significant underlying hematoma. SINUSES/MASTOIDS: ??No fluid or mucosal thickening. ORBITS: ??No significant abnormality. OTHER: ??No other significant abnormality. IMPRESSION: ?? 1. ??No evidence of acute intracranial hemorrhage or ischemia. 2. ??Mild generalized cerebral and cerebellar atrophy, microvascular ischemic disease. 3. ??No evidence of skull fracture. THIS IS AN ELECTRONICALLY VERIFIED FINAL REPORT 07/11/2021 6:59 PM - Electronically signed by Luis Yao M.D. AT: AT D: ??07/11/2021 6:59 PM T: ??07/11/2021 6:59 PM Report ID: [id number] Reading Location: ??[id number] Procedure Note Luis Yao MD - 07/11/2021 EXAM DESCRIPTION: CT HEAD WO CONTRAST REASON FOR STUDY: Head trauma, mod-severe, head injury Evaluation of ahead injury that happened at 1030 this morning. Patient states he was hit onthe head by a piece of equipment at work. Small laceration to the top of leftside of head. Patient states he's having head and neck pain. No nausea or vomiting. TECHNIQUE: Axial images acquired through the brain without intravenous contrast. Images stored on PACS. Automated exposure control was used asa dose optimization technique for this examination. COMPARISON: None available FINDINGS: BRAIN: No hemorrhage, edema or mass effect. No recent infarct. Mild generalized cerebral and cerebellar volume loss is noted. Areas ofdecreased attenuation within the periventricular white matter are present. Focal decreased attenuation left cerebellum around axial image 16 is mostcompatible with either dilated cerebellar folia or minor encephalomalacia. EXTRA-AXIAL SPACES: No fluid collections. No masses. CALVARIUM: Laceration over the left aspect of the calvarium is noted nearthe vertex. No underlying fracture. No significant underlying hematoma. SINUSES/MASTOIDS: No fluid or mucosal thickening. ORBITS: No significant abnormality. OTHER: No other significant abnormality. IMPRESSION: 1. No evidence of acute intracranial hemorrhage or ischemia. 2. Mild generalized cerebral and cerebellar atrophy, microvascularischemic disease. 3. No evidence of skull fracture. THIS IS AN ELECTRONICALLY VERIFIED FINAL REPORT 07/11/2021 6:59 PM - Electronically signed by Luis Yao M.D. AT: AT Report ID: [id number] Reading Location: [id number] Alexa Cline NP IMG CT PROCEDURES Final Res ult documented in this encounter Visit Diagnoses Diagnosis Head injury, initial encounter- Primary Closed head injury, initial encounter Laceration of scalp, initial encounter Neck pain Cervicalgia Acute bilateral low back pain without sciatica Musculoskeletal back pain documented in this encounter Administered Medications Inactive Administered Medications - up to 3 most recent administrations Medication Order MAR Action Action Date Dose Rate Site acetaminophen (TYLENOL) tablet 650 mg 650 mg, oral, Once, On Sat07/11/21 at 1854, For 1 dose Given 07/11/2021 7:01 PM CLIENT APPLICATION SUPPORT ENGINEER 650 mg bacitracin 500 unit/gram ointment packet 1 application 1 application (deactivated), topical, Once, On Sat07/11/21 at 1853, For 1 dose, Apply to affected area: wound Given 07/11/2021 7:02 PM CLIENT APPLICATION SUPPORT ENGINEER 1 application (deactivated) cyclobenzaprine (FLEXERIL) tablet 10 mg 10 mg, oral, Once, On Sat07/11/21 at 1854, For 1 dose Given 07/11/2021 7:01 PM CLIENT APPLICATION SUPPORT ENGINEER 10 mg lidocaine-EPINEPHrine (XYLOCAINE with EPI) 1 %-1:100,000 injection 10 mL 10 mL, infiltration, Once, On Sat07/11/21 at 1853, For 1 dose, Indications: Administration of Local AnesthesiaIndications:Ad ministration of Local Anesthesia Given by Other 07/11/2021 7:51 PM CLIENT APPLICATION SUPPORT ENGINEER 10 mL kougohoaq-nprlwrosm-vbdr acaine (LET) gel 3 mL 3 mL, topical, Once, On Sat07/11/21 at 1853, For 1 dose Given 07/11/2021 7:01 PM CLIENT APPLICATION SUPPORT ENGINEER 3 mL documented in this encounter Discontinued Medications Medication Sig Discontinue Reason Start Date End Da te cephalexin (KEFLEX) 500 mg capsuleIndications:Skin/ Soft Tissue Infection Take 1 capsule (500 mg total) by mouth 3 (three) times a day for 5 days Reorder 07/11/2021 07/11/2021 HYDROcodone-acetaminophe n (NORCO) 5-325 mg per tabletIndications:Pain Take 1 tablet by mouth every 4 (four) hours as needed for pain Reorder 07/11/2021 07/11/2021 cephalexin (KEFLEX) 500 mg capsuleIndications:Skin/ Soft Tissue Infection Take 1 capsule (500 mg total) by mouth 3 (three) times a day for 5 days Reorder 07/11/2021 07/11/2021 documented as of this encounter Active and Recently Administered Medications Times are shown in CLIENT APPLICATION SUPPORT ENGINEER. Scheduled Medication Order 07/09/2021 07/10/2021 07/11/2021 acetaminophen (TYLENOL) tablet 650 mg (COMPLETED) 650 mg, oral, Once, On Sat07/11/21 at 1854, For 1 dose 1900 (Given - Provid er: Sofi Wood, MARIANA) bacitracin 500 unit/gram ointment packet 1 application (COMPLETED) 1 application (deactivated), topical, Once, On Sat07/11/21 at 1853, For 1 dose, Apply to affected area: wound 1901 (Given - Provid er: Sofi Wood, MARIANA) cyclobenzaprine (FLEXERIL) tablet 10 mg (COMPLETED) 10 mg, oral, Once, On Sat07/11/21 at 1854, For 1 dose 1900 (Given - Provid er: Sofi Wood, MARIANA) lidocaine-EPINEPHrine (XYLOCAINE with EPI) 1 %-1:100,000 injection 10 mL (COMPLETED) 10 mL, infiltration, Once, On Sat07/11/21 at 1853, For 1 dose, Indications: Administration of Local Anesthesia 1950 (Given by Other - Provider: Sofi Wood, MARIANA - Comment: administered per ERP during procedure) wddtxpfpq-oasnipjpb-nmlnmskqlc (LET) gel 3 mL (COMPLETED) 3 mL, topical, Once, On Sat07/11/21 at 1853, For 1 dose 1900 (Given - Provid er: Sofi Wood, MARIANA) documented in this encounter Care Teams Research Hydrologist Relationship Specialty Start Date End Date Alf Khan DO [address] [place] [address] PCP - General 07/11/21 documented as of this encounter
--- OUTSIDE RECORDS SUMMARY | 2024-09-06 20:30 | XMS_ITS | Encounter Summary ---
Author Organization [facility] Medical [facility] Address [address] [facility] [address] [place] [id number] Care Team Providers Care Reeler Operator Name Role Phone Alf KhanRamses SMITH Primary Care Provider [phone] Reason for Visit * Reason Comments Conjunctivitis Both eyes, he notice it this morning both eyes were crusty Back Pain Rash Under his private ar ea Encounter Details Date Type Department Care Team (Latest Contact Info) Description 04/20/2023 3:30 PM CDT Office Visit [facility] Outpatient Center [address] [phone] Andreina Johnson NP [address] [place] [id number] Bacterial conjunctivitis of both eyes (Primary Dx); Rash and nonspecific skin eruption Social History Tobacco Use Types Packs/Day Years Used Date Smoking Tobacco: Never Assessed Sex and Gender Information Value Date Recorded Sex Assigned at Not on file Legal 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 -Please wash your hands frequently and avoid touching and rubbing your eye(s) -Discard any eye make-up, false eyelashes, or anything else that might have recently come in contact with your eye(s) -If you wear contacts please disposed of your current ones and only open a new pair when your eye returns to normal. Do not use contacts during illness -Cool compresses as needed for irritation. -If infection spreads to other eye, start using prescribed drops or ointment in both eyes, as directed. -Contagious precautionsYou must be on antibiotic eye drops for at least 24 hours before returning to work or school ??FOLLOW-UP: If your eye(s) are not improving or worsening, or if you develop vision change or eye pain, over the next 24-48 hours you need to see an eye doctor IMMEDIATELY. FOR RASH Take medications as prescribed - Use topical powder as directed. Keep area clean and dry. Oatmeal baths and cool compresses can help alleviate itch Avoid scratching and keep rash clean to prevent secondary skin infection. Wash skin twice a day with a gentle soap and warm soapy water. Observe for symptoms of infection caused by scratching. Go to the ER or call 911 if you develop lip/tongue swelling or difficulty breathing; this is an emergency! If you have any future allergic reactions with symptoms of shortness of breath, throat swelling or full body hives, go to the ER immediately. Follow up with your PCP if symptoms do not improve as anticipated or for new or worsening concerns or if you still have hives after seven days. * Attachments The following attachments cannot be sent through Care Everywhere. * Conjunctivitis (Pecan Sheller) (Swedish) * Dermatitis (Pecan Sheller) (Swedish) documented in this encounter Ordered Prescriptions Prescription Sig Dispense Quantity Refills Last Filled Start Date End Date ofloxacin (OCUFLOX) 0.3 % ophthalmic solutionIndications :Bacterial Conjunctivitis Administer 1 drop into both eyes every 4 (four) hours for 7 days 5 mL 04/20/2023 3 nystatin powderIndications:c utaneous candidiasis Apply topically 2 (two) times a day for 7 days Use for two days after rash has resolved. 30 g 04/20/2023 3 documented in this encounter Progress Notes * Andreina Johnson, ELEVATOR INSPECTOR - 04/20/2023 3:30 PM CDT Images from the original note were not included. Subjective/Objective Patient ID: Trenton Crockett is a 57 y.o. male. Chief Complaint Conjunctivitis (Both eyes, he notice it this morning both eyes were crusty), Back Pain, and Rash (Under his private area) Patient presents to the clinic with reports of bilateral eye redness and bilateral eye matting thismorning when he woke up. Patient denies eye pain, vision loss, headaches, and dizziness. Patient has not done anything qwyc-mgy-[id number] for his symptoms. Patient does not wear contacts. Patient reports that he had a pillow in between his legs that he then used for face and he believes that is what caused the eye infection. Patient also reporting a rash and between his thighs for the past 4 weeks. Patient reports history of a perianal abscess. Patient reports he had surgery on the abscess about 5 weeks ago. Patient's doctor has seen assess the rash and had him do topical [id number] medications. Patient denies drainage from rash, streaking from rash, and odor from rash. Review of Systems Constitutional: Negative for chills, fatigue and fever. Eyes: Positive for discharge and redness. Negative for photophobia, pain, itching and visual disturbance. Respiratory: Negative for cough. Cardiovascular: Negative for chest pain. Skin: Positive for rash (groin/upper thighs). Neurological: Negative for weakness and headaches. Physical Exam Vitals reviewed. Constitutional: General: He is not in acute distress. Appearance: Normal appearance. He is not ill-appearing. HENT: Head: Normocephalic. Mouth/Throat: Lips: [place]. Eyes: General: Lids are normal. Right eye: No foreign body, discharge or hordeolum. Left eye: Discharge present.No foreign body or hordeolum. Extraocular Movements: Right eye: Normal extraocular motion and no nystagmus. Left eye: Normal extraocular motion and no nystagmus. Conjunctiva/sclera: Right eye: Right conjunctiva is injected. No hemorrhage. Left eye: Left conjunctiva is injected. No hemorrhage. Pupils: Pupils are equal, round, and reactive to light. Cardiovascular: Rate and Rhythm: Normal rate. Pulmonary: Effort: Pulmonary effort is normal. Breath sounds: Normal breath sounds. Skin: General: Skin is warm. Comments: BL groin/upper thighs: erythematous patches with satellite papules noted. No drainage or streaking. Not warm to touch Neurological: Mental Status: He is alert and oriented to person, place, and time. Psychiatric: Mood and Affect: Mood normal. Vitals: 04/20/23 1543 BP: 162/82 BP Location: Left arm Patient Position: Sitting Pulse: 83 Resp: 16 Temp: 36.8 ??C (98.3 ??F) TempSrc: Oral SpO2: 95% Weight: 113.9 kg (251 lb) Height: 180.3 cm (5' 11 ) Assessment/Plan # BL conjunctivitis --start Ofloxacin q4h while awake --encouraged to wash bed linens and pillow cases --tylenol/motrin for fever/pain, use as directed --discussed hand hygiene --avoid use of contact lenses --ED presentation with one or more of the following symptoms: fever uncontrolled with antipyretics,shortness of breath, chest discomfort, uncontrolled n/v/d, change in vision, deep eye pain --f/u with PCP in 3-5 days if symptoms do not improve/worsen # Rash --Nystatin powder, twice a day. --shower daily, wash effected areas with fragrance free soap and water prior to application of powder --Keep area clean and dry. --ED presentation with one or more of the following symptoms: fever uncontrolled with antipyretics,shortness of breath, chest discomfort, uncontrolled n/v/d --f/u with PCP if rash does not improve in 7-10 days Diagnoses and all orders for this visit: Bacterial conjunctivitis of both eyes (Primary) - ofloxacin (OCUFLOX) 0.3 % ophthalmic solution; Administer 1 drop into both eyes every 4 (four) hours for 7 days Rash and nonspecific skin eruption - nystatin powder; Apply topically 2 (two) times a day for 7 days Use for two days after rash has resolved. Patient Education: Bacterial Conjunctivitis is contagious until you have been on antibiotic eye drops for 24 hours. -Please wash your hands frequently and avoid touching and rubbing your eye(s) -Discard any eye make-up, false eyelashes, or anything else that might have recently come in contact with your eye(s) -If you wear contacts please disposed of your current ones and only open a new pair when your eye returns to normal. Do not use contacts during illness -Cool compresses as needed for irritation. -If infection spreads to other eye, start using prescribed drops or ointment in both eyes, as directed. -Contagious precautionsYou must be on antibiotic eye drops for at least 24 hours before returning to work or school ??FOLLOW-UP: If your eye(s) are not improving or worsening, or if you develop vision change or eye pain, over the next 24-48 hours you need to see an eye doctor IMMEDIATELY. FOR RASH Take medications as prescribed - Use topical powder as directed. Keep area clean and dry. Oatmeal baths and cool compresses can help alleviate itch Avoid scratching and keep rash clean to prevent secondary skin infection. Wash skin twice a day with a gentle soap and warm soapy water. Observe for symptoms of infection caused by scratching. Go to the ER or call 911 if you develop lip/tongue swelling or difficulty breathing; this is an emergency! If you have any future allergic reactions with symptoms of shortness of breath, throat swelling or full body hives, go to the ER immediately. Follow up with your PCP if symptoms do not improve as anticipated or for new or worsening concerns or if you still have hives after seven days. Disposition Treatment plan including expectations, follow up, and return precautions discussed with patient/parent, verbalizes understanding. Medication dosage, use, and potential adverse reactions discussed with patient/parent. Advised to follow up with PCP if symptoms do not resolve as expected or sooner if condition worsens. Signs/symptoms warranting ER evaluation reviewed. Patient and/or guardian was given an opportunity to ask questions, questions answered. Andreina Johnson NP 04/20/23 4:32 PM Cosigned by Malick Washington MD at 04/21/2023 9:28 PM CDT documented in this encounter Plan of Treatment Not on file documented as of this encounter Visit Diagnoses Diagnosis Bacterial conjunctivitis of both eyes- Primary Rash and nonspecific skin eruption Rash and other nonspecific skin eruption documented in this encounter Historical Medications * This list may reflect changes made after this encounter. metFORMIN XR (GLUCOPHAGE XR) 500 mg 24 hr tablet Take 1 tablet (500 mg total) by mouth daily 03/25/2023 OneTouch Verio Flex meter misc USE DIRECTED TO TEST 1 TO 3 TIMES PER DAY NEEDED 03/26/2023 OneTouch Verio test strips strip USE TO TEST BLOOD SUGAR 1 TO 3 TIMES PER DAY NEEDED 03/26/2023 added in this encounter Care Teams Reeler Operator Relationship Specialty Start Date End Date Alf Khan DO [address] [place] [address] PCP - General 07/11/21 documented as of this encounter
--- OUTSIDE RECORDS SUMMARY | 2024-09-06 20:30 | XMS_ITS | Encounter Summary ---
Author Organization [facility] Address [address] [place] [address] Care Team Providers Care Courtesy Driver Name Role Phone Unavailable Primary Care Provider Unavailabl e Reason for Visit * Reason Onset Date Comments MEDICATION REFILL 04/13/2009 Encounter Details Date Type Department Care Team (Late st Contact Info) Description 04/13/2009 Refill [facility] - Family Medicine [address] [place] [id number] Jose Rust DO [address] [place] [address] MEDICATION REFILL Social History Tobacco Use Types Packs/Day Years Used Date Smoking Tobacco: Every Day Alcohol Use Standard Drinks/Week Comments Not Asked 0 (1 standard drink = 0.6 oz pur e alcohol) Sex and Gender Information Value Date Recorded Sex Assigned at Male 08/31/2020 7:44 AM BULK PLANT AGENT Gender Identity Male 08/31/2020 7:44 AM BULK PLANT AGENT Sexual Orientation Straight 08/31/2020 7: 44 AM BULK PLANT AGENT documented as of this encounter Miscellaneous Notes * Telephone Encounter - My Jon MA - 04/13/2009 1:59 PM CDT Patient cannot get into see Dr. Liz until 04/25, would you please refill documented in this encounter Plan of Treatment Not on file documented as of this encounter Visit Diagnoses Diagnosis Radicular pain in left arm Neuralgia, neuritis, and radiculitis, unspecified documented in this encounter
--- OUTSIDE RECORDS SUMMARY | 2024-09-06 20:30 | XMS_ITS | Encounter Summary ---
Author Organization [facility] Address [address] [place] [address] Care Team Providers Care Motor Vehicles Inspector Name Role Phone Unavailable Primary Care Provider Unavailabl e Reason for Visit * Reason Onset Date Comments Question 03/31/2009 Encounter Details Date Type Department Care Team (Late st Contact Info) Description 03/31/2009 Telephone [facility] - Family Medicine [address] [place] [id number] Jose Rust DO [address] [place] [address] Question Social History Tobacco Use Types Packs/Day Years Used Date Smoking Tobacco: Every Day Alcohol Use Standard Drinks/Week Comments Not Asked 0 (1 standard drink = 0.6 oz pur e alcohol) Sex and Gender Information Value Date Recorded Sex Assigned at Male 08/31/2020 7:44 AM ROLL CLAMP OPERATOR Gender Identity Male 08/31/2020 7:44 AM ROLL CLAMP OPERATOR Sexual Orientation Straight 08/31/2020 7: 44 AM ROLL CLAMP OPERATOR documented as of this encounter Miscellaneous Notes * Telephone Encounter - My Jon MA - 03/31/2009 2:05 PM CDT Patient informed of correct information on meds. * Telephone Encounter - Jose Rust DO - 03/31/2009 1:13 PM CDT The Zocor is for Cholesterol, and the Trplix to help raise the good cholesterol, and lower fats. Itreplaces the Antara. The Lisinopril is for B/P. Take the new combination of meds for 6 mo's then return, sooner with problems. * Telephone Encounter - My Jon MA - 03/31/2009 8:56 AM CDT Patient confused on medications, pateint got rx for lisinopril and zocor and now a rx was called infor trilipix. What chol med should he be taking? documented in this encounter Plan of Treatment Not on file documented as of this encounter Visit Diagnoses Not on filedocumented in this encounter
--- OUTSIDE RECORDS SUMMARY | 2024-09-06 20:30 | XMS_ITS | Encounter Summary ---
Author Organization [facility] Address [address] [place] [address] Care Team Providers Care Dispatcher Tow Truck Name Role Phone Unavailable Primary Care Provider Unavailabl e Reason for Visit * Reason Comments Congestion head/chest congest f or 2 days stuffy nose, coughing Pain Back burning feeling in b ack Encounter Details Date Type Department Care Team (Late st Contact Info) Description 03/25/2009 10:45 AM CDT Office Visit [facility] - Family Medicine [id number] [place] [address] [address] [place] [address] AustinokZeb calhoun [address] [facility] [address] [place] [address] Acute Bronchitis (Primary Dx); Nicotine Addiction; Sprain Thoracic Region; Cervical Radiculopathy; HTN; Hyperlipidemia Social History Tobacco Use Types Packs/Day Years Used Date Smoking Tobacco: Every Day Alcohol Use Standard Drinks/Week Comments Not Asked 0 (1 standard drink = 0.6 oz pur e alcohol) Sex and Gender Information Value Date Recorded Sex Assigned at Male 08/31/2020 7:44 AM MANAGER GRAPHIC Gender Identity Male 08/31/2020 7:44 AM MANAGER GRAPHIC Sexual Orientation Straight 08/31/2020 7: 44 AM MANAGER GRAPHIC documented as of this encounter Last Filed Vital Signs Vital Sign Reading Time Taken Comments Blood Pressure 160/90 03/25/2009 11:12 AM CDT Pulse 78 03/25/2009 11:12 AM CDT Temperature 36.6 ??C (97.8 ??F) 03/25/2009 11:12 AM C DT Respiratory Rate - - Oxygen Saturation - - Inhaled Oxygen Concentration - - Weight 96.6 kg (213 lb) 03/25/2009 11:12 AM CDT Height - - Body Mass Index - - documented in this encounter Progress Notes * My Jon MA - 03/31/2009 2:04 PM CDTQuick Note: Patient informed of xrays. * Zeb Knight DO - 03/31/2009 1:28 PM CDTQuick Note: Please call patient and inform them that their test results are normal. * Zeb Knight DO - 03/25/2009 2:26 PM CDTAddended by: ZEB KNIGHT on: 03/25/2009 2:26:57 PM Modules accepted: Orders, Medications * Zeb Knight DO - 03/25/2009 2:26 PM CDT Changed rx from Antara to Trilipix because of decreased potential for side- effects with Zocor. * Zeb Knight DO - 03/25/2009 11:43 AM CDT SUBJECTIVE: Trenton Crockett is a 43 y.o. male who complains of left upper back pain for 3 day(s), positional worsening with rotation head right, with radiation down the left arm. Precipitating factors: recent heavy lifting. Prior history of back problems: recurrent self limited episodes of upper back pain in thepast. He is also having cold symptoms. Using muscle relaxer over the past day. Seen at [facility] 2 months ago for same symptoms. Resolved with IBU and muscle relaxer. Has not been taking his hypertension or cholesterol meds because he was unable to get away from work to come to his follow upappointment. OBJECTIVE: BP 160/90 Pulse 78 Temp (Src) 97.8 ??F (Oral) Wt 96.616 kg (213 lb) Patient appears to be in mild to moderate pain. Head; normocephalic, atraumatic. JORGE. ENT- ENT exam normal, no neck nodes or sinus tenderness. CVS exam: normal rate, regular rhythm, normal S1, S2, no murmurs, rubs, clicks or gallops. Chest: wheezing noted with inspiration and expiration, rhonchi noted to be worse in the left midfield. Thoracolumbar spine area reveals no local tenderness or mass. No painful and reduced ROM noted. Negative Spurlings. DTR's, motor strength and sensation normal. Peripheral pulses are palpable. X-Ray: ordered, but results not yet available. ASSESSMENT: Encounter Diagnoses Code Name Primary? Qualifier ??? 466.0 Acute Bronchitis Yes Plan: XR CHEST PA AND LATERAL, ALBUTEROL SULFATE HFA 108 (90 BASE) MCG/ACT IN AERS ??? 305.1G Nicotine Addiction ??? 847.1C Sprain Thoracic Region Plan: METHYLPREDNISOLONE (DEONDRE) 4 MG PO TABS, TRAMADOL HCL 50 MG PO TABS ??? 723.4AS Cervical Radiculopathy Plan: XR CERVICAL SPINE MIN 4+ VW ??? 401.9BX HTN Plan: LISINOPRIL 20 MG PO TABS ??? 272.4S Hyperlipidemia Plan: SIMVASTATIN 20 MG PO TABS, FENOFIBRATE MICRONIZED 130 MG PO CAPS PLAN: For acute pain, rest, intermittent application of heat (do not sleep on heating pad), analgesics and muscle relaxants are recommended. Discussed longer term treatment plan of prn NSAID's and discussed a home back care exercise program with flexion exercise routine. Proper lifting with avoidance of heavy lifting discussed. Consider Physical Therapy and XRay studies if not improving. The patient issincerely urged to quit smoking. The numerous direct health benefits are discussed. If he decides to quit, there are a number of helpful adjunctive aids, and he can see me to discuss nicotine replacement therapy and bupropion anytime in the future. Call or return to clinic prn if these symptoms worsen or fail to improve as anticipated. * Ofe Becker MA - 03/25/2009 11:11 AM CDT Congestion head/chest congest for 2 days stuffy nose,coughing Pain Back burning feeling in back documented in this encounter Plan of Treatment Not on file documented as of this encounter Procedures Procedure Name Priority Date/Time Associated Diagnosis Comments XR CERVICAL SPINE 4 OR 5VW Routine 03/31/2009 9:21 AM CDT Cervical Radiculopathy XR CHEST 2VW Routine 03/31/2009 9:20 AM CDT Acute Bronchitis documented in this encounter Results * XR [...] No fracture or dislocation identified. See above. Zeb Mergenmeier DO DIAGNOSTIC IMAGIN G ORDERABLES * XR CHEST PA AND LATERAL (03/31/2009 9:20 AM CDT) Anatomical Region Laterality Modality Chest Radiographic Nataliya ging 03/31/2009 10:4 3 AM CDT Impressions 03/31/2009 11:29 AM CDT No evidence of active cardiopulmonary disease. Narrative 03/31/2009 11:29 AM CDT Chest two views from 03/31/09 Indication: Cough and congestion. PA and lateral radiographs of the chest were obtained. The heart and mediastinum are within normal limits. The lungs are well expanded and are clear. Procedure Note Brenden Blood MD - 03/31/2009 Chest two views from 03/31/09 Indication: Cough and congestion. PA and lateral radiographs of the chest were obtained. The heart and mediastinum are within normal limits. The lungs are well expanded and are clear. IMPRESSION No evidence of active cardiopulmonary disease. Zeb Mergenmeier DO DIAGNOSTIC IMAGIN G ORDERABLES documented in this encounter Visit Diagnoses Diagnosis Acute bronchitis- Primary Nicotine addiction Tobacco use disorder Sprain thoracic region Sprain of thoracic region Cervical radiculopathy Brachial neuritis or radiculitis nos HTN Unspecified essential hypertension Hyperlipidemia Other and unspecified hyperlipidemia documented in this encounter
--- OUTSIDE RECORDS SUMMARY | 2024-09-06 20:30 | XMS_ITS | Encounter Summary ---
Author Organization [facility] Address [address] [place] [address] Care Team Providers Care Graphite Pan Drier Tender Name Role Phone Unavailable Primary Care Provider Unavailabl e Reason for Visit * Reason Onset Date Comments Results 05/02/2010 Encounter Details Date Type Department Care Team (Late st Contact Info) Description 05/02/2010 Telephone [facility] - Family Medicine [address] [place] [address] Jose Rust DO [address] [place], [place] [id number] Results Social History Tobacco Use Types Packs/Day Years Used Date Smoking Tobacco: Every Day Alcohol Use Standard Drinks/Week Comments Not Asked 0 (1 standard drink = 0.6 oz pur e alcohol) Sex and Gender Information Value Date Recorded Sex Assigned at Male 08/31/2020 7:44 AM CLINICAL SECRETARY Gender Identity Male 08/31/2020 7:44 AM CLINICAL SECRETARY Sexual Orientation Straight 08/31/2020 7: 44 AM CLINICAL SECRETARY documented as of this encounter Miscellaneous Notes * Telephone Encounter - Maddy Feliciano MA - 05/04/2010 8:27 AM CDT Pt's aware. She will have pt call office to make appt. * Telephone Encounter - Angy Segovia MA - 05/03/2010 6:12 PM CDT Left Message on machine to call back re: 03/31/2010 test results * Telephone Encounter - Alpesh Landa DO - 05/03/2010 5:57 PM CDT Iron and hepatitis labs were normal Patient will need to follow up with Dr Rust for memory issues in office visit * Telephone Encounter - Ramila Fields MA - 05/02/2010 10:35 AM CDT Pt called office requesting results of Iron and Hepatitis that were added on 03/31/2010 labs. Available in chart review. Also pt has been having Headaches X 4-5 days to where it keeps him up at night. Pt also has memory loss during the last 3-4 weeks to where he forgets if he took his medications and forgets having full conversations. Pt has been taking Lotrel for a month now and is not sure if this is related. Pt iswanting to know if there is anything you recommend. Pt spouse is concerned. Please advise. Allergies Allergen Reactions ??? Perry Inhibitors Cough Last OV- 03/28/2010 documented in this encounter Plan of Treatment Not on file documented as of this encounter Visit Diagnoses Not on filedocumented in this encounter
--- OUTSIDE RECORDS SUMMARY | 2024-09-06 20:30 | XMS_ITS | Encounter Summary ---
Author Organization [facility] Address [address] [place] [address] Care Team Providers Care Event Marketing Intern Name Role Phone Unavailable Primary Care Provider Unavailabl e Reason for Visit * Reason Comments Cough Pt is here for const ant prod cough, swollen glands, headache; onset Tues. Swelling Gland Headache Pain Abdominal Also about one wk ag o he developed some discomfort in his abdomen. No n/v/d. onset after eating maori food. Hypertension has been taking B/P meds daily. Stress mother had CA-pt wor xenia he will develop same. Also worried he has some illness. Encounter Details Date Type Department Care Team (Late st Contact Info) Description 06/16/2009 2:40 PM CDT Office Visit [facility] - Family Medicine [address] [place] [id number] Jose Rust, [address] [place] [address] Acute Bronchitis (Primary Dx); HTN (Hypertension), Benign; Hyperlipidemia; Nicotine Dependence Social History Tobacco Use Types Packs/Day Years Used Date Smoking Tobacco: Every Day Alcohol Use Standard Drinks/Week Comments Not Asked 0 (1 standard drink = 0.6 oz pur e alcohol) Sex and Gender Information Value Date Recorded Sex Assigned at Male 08/31/2020 7:44 AM DIRECTOR OF MECHANICAL ENGINEERING Gender Identity Male 08/31/2020 7:44 AM DIRECTOR OF MECHANICAL ENGINEERING Sexual Orientation Straight 08/31/2020 7: 44 AM DIRECTOR OF MECHANICAL ENGINEERING documented as of this encounter Last Filed Vital Signs Vital Sign Reading Time Taken Comments Blood Pressure 144/94 06/16/2009 2:51 PM CDT Pulse - - Temperature 36.7 ??C (98.1 ??F) 06/16/2009 2:51 PM CD T Respiratory Rate - - Oxygen Saturation - - Inhaled Oxygen Concentration - - Weight 98.9 kg (218 lb) 06/16/2009 2:51 PM CDT Height - - Body Mass Index - - documented in this encounter Progress Notes * Jose Rust, DO - 06/16/2009 3:19 PM CDT SUBJECTIVE: Trenton Crockett is a 43 y.o. male is here today for : Chief Complaint Patient presents with ??? Cough Pt is here for constant prod cough, swollen glands, headache; onset Tues. ??? Swelling Gland ??? Headache ??? Pain Abdominal Also about one wk ago he developed some discomfort in his abdomen. No n/v/d. onset after eating maori food. ??? Hypertension has been taking B/P meds daily. ??? Stress mother had CA-pt worries he will develop same. Also worried he has some illness. Current outpatient prescriptions prior to encounter Medication Sig Dispense Refill ??? simvastatin (ZOCOR) 20 MG tablet Take 1 Tab by mouth daily. 90 1 ??? albuterol HFA (PROVENTIL;VENTOLIN;PROAIR) 108 (90 BASE) MCG/ACT inhaler Inhale 2 Puffs by mouthevery 6 hours as needed 1 3 OBJECTIVE: BP 144/94 Temp (Src) 98.1 ??F (Oral) Wt 98.884 kg (218 lb) General appearance - alert, well appearing, and in no distress, oriented to person, place, and timeand normal appearing weight Mental status - alert, oriented to person, [...] normal in size without nodules or tenderness Lymphatics - no palpable lymphadenopathy, no hepatosplenomegaly Chest - wheezing noted scattered in chest, rales noted throughout Heart - normal rate, regular rhythm, normal S1, S2, no murmurs, rubs, clicks or gallops Abdomen - soft, nontender, nondistended, no masses or organomegaly no rebound tenderness noted bowel sounds normal ASSESSMENT/PLAN: Encounter Diagnoses Code Name Primary? Qualifier ??? 466.0 Acute Bronchitis Yes Plan: SULFAMETHOXAZOLE-TMP DS 800-160 MG PO TABS ??? 401.1E HTN (Hypertension), Benign Plan: LISINOPRIL-HYDROCHLOROTHIAZIDE 20-12.5 MG PO TABS ??? 272.4S Hyperlipidemia ??? 305.1A Nicotine Dependence Plan: VARENICLINE TARTRATE 0.5 MG X 11 AND 1 MG X 42 PO MISC, VARENICLINE TARTRATE 1 MG PO TABS Return 3 mo's for B/P and labs. D/C Nicotine. Call if any abd complaints persist greater than 1 more week. documented in this encounter Plan of Treatment Not on file documented as of this encounter Visit Diagnoses Diagnosis Acute bronchitis- Primary HTN (hypertension), benign Essential hypertension, benign Hyperlipidemia Other and unspecified hyperlipidemia Nicotine dependence Tobacco use disorder documented in this encounter
--- OUTSIDE RECORDS SUMMARY | 2024-09-06 20:30 | XMS_ITS | Encounter Summary ---
Author Organization [facility] Address [address] [place] [address] Care Team Providers Care Solution Lead Name Role Phone Unavailable Primary Care Provider Trang e Encounter Details Date Type Department Care Team (Latest Contact Info) Description 04/06/2010 10:10 AM CDT - 04/06/2010 11:59 PM CDT Hospital Encounter [facility] [address] [place] [address] Discharge Disposition: Home or Self Care Social History Tobacco Use Types Packs/Day Years Used Date Smoking Tobacco: Every Day Alcohol Use Standard Drinks/Week Comments Not Asked 0 (1 standard drink = 0.6 oz pur e alcohol) Sex and Gender Information Value Date Recorded Sex Assigned at Male 08/31/2020 7:44 AM RANCH COOK Gender Identity Male 08/31/2020 7:44 AM RANCH COOK Sexual Orientation Straight 08/31/2020 7: 44 AM RANCH COOK documented as of this encounter Medications at Time of Discharge Medication Sig Dispensed Refills Start Date End Date amlodipine-benazepril (LOTREL) 5-20 MG capsuleIndications:HTN (hypertension), benign Take 1 Cap by mouth daily. 30 2 03/28/2010 12/22/2010 lisinopril-hydrochlorothi azide (PRINIZIDE; ZESTORETIC) 20-12.5 MG tabletIndications:HTN (hypertension), benign Take 1 Tab by mouth daily. 30 5 06/16/2009 12/22/2010 simvastatin (ZOCOR) 20 MG tabletIndications:Hyperli pidemia Take 1 Tab by mouth daily. 30 5 03/30/2010 01/16/2011 verapamil CR (CALAN SR) 180 MG tablet Take 1 Tab by mouth daily. 30 2 09/30/2009 12/22/2010 documented as of this encounter Procedure Notes * Bernabe Matias MD - 04/06/2010 11:45 AM CDTAssociated Order(s): CARDIAC STRESS ECHO ORDER [facility] Stress Test [facility] STRESS TEST PATIENT: LENNIE QUINTANILLA MR#: [id number] [id number] 1965 ROOM: REFERRING PHYSICIAN: ANGELINA CARTY DO STRESS ECHOCARDIOGRAM: INDICATIONS: Lennie Quintanilla is a 44 year old male with chest pain. The baseline electrocardiogram was normal. He exercised for 9 minutes and 0 seconds on the Winston protocol reaching a peak heart rate of 155 beats per minute stopping because of fatigue and shortness of breath. There were no ST changes or arrhythmias. Echocardiographic images at baseline showed upper normal LV wall thickness, borderline hypertrophy with normal LV size and systolic function. Normal mitral and aortic valves. Normal left atrium and aortic root diameter. At peak exercise there is a uniform increase in left ventricular contractility with no segmental wall motion abnormalities. CONCLUSION: 1.Maximal treadmill stress echocardiography negative for myocardial ischemia. 2.Electrocardiographically negative stress test. 3.Clinically negative stress test. 4.Average exercise tolerance and functional aerobic capacity. The Santana's treadmill score is 9 (low risk). 5.There is upper normal left ventricular wall thickness, borderline hypertrophy with normal left ventricular size and systolic function on baseline echocardiographic images. BERNABE MATIAS MD SKN/PM #: [id number] CC: ANGELINA CARTY, STRESS TEST - DP documented in this encounter Miscellaneous Notes * Miscellaneous Scans - Document, Scanned - 04/13/2010 9:13 AM CDT * Miscellaneous Scans - Document, Scanned - 04/11/2010 1:11 PM CDT * Miscellaneous Scans - Document, Scanned - 04/11/2010 1:11 PM CDT documented in this encounter Plan of Treatment Pending Results Name Type Priority Associated Diagnoses Date /Time ECHOCARDIOGRAM STRESS ECHO Routine HTN (Hypertension), Benign Hyperlipidemia Chest Pain 04/06/2010 10:10 AM CDT documented as of this encounter Procedures Procedure Name Priority Date/Time Associated Diagnosis Comments CARDIAC STRESS ECHO ORDER 04/06/2010 11:45 AM CDT documented in this encounter Results * CARDIAC STRESS ECHO ORDER (04/06/2010 11:45 AM CDT) Narrative Procedure Note Bernabe Matias MD - [facility]/06/2010 [facility] PATIENT: LENNIE QUINTANILLA MR#: [id number] DATE OF SERVICE: : 1965 ROOM: REFERRING PHYSICIAN: ANGELINA CARTY DO STRESS ECHOCARDIOGRAM: INDICATIONS: Lennie Quintanilla is a 44 year old male with [...] systolic function on baseline echocardiographic images. BERNABE MATIAS MD SKN/PM #: [id number] CC: ANGELINA CARTY DO STRESS TEST - DP Bernabe Matias MD CARDIAC SERVICES ORD ERABLES documented in this encounter Visit Diagnoses Diagnosis HTN (hypertension), benign Essential hypertension, benign Hyperlipidemia Other and unspecified hyperlipidemia Chest pain Chest pain, unspecified Essential hypertension, benign documented in this encounter
--- OUTSIDE RECORDS SUMMARY | 2024-09-06 20:30 | XMS_ITS | Encounter Summary ---
Author Organization [facility] Address [address] [place] [address] Care Team Providers Care Order Processing Clerk Name Role Phone Unavailable Primary Care Provider Unavailabl e Reason for Visit * Reason Onset Date Comments Medication Problem 03/30/2009 Encounter Details Date Type Department Care Team (Late st Contact Info) Description 03/30/2009 Telephone [facility] - Family Medicine [address] [place] [id number] Jose Rust DO [address] [place] [address] Medication Problem Social History Tobacco Use Types Packs/Day Years Used Date Smoking Tobacco: Every Day Alcohol Use Standard Drinks/Week Comments Not Asked 0 (1 standard drink = 0.6 oz pur e alcohol) Sex and Gender Information Value Date Recorded Sex Assigned at Male 08/31/2020 7:44 AM CNC 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 Gender Identity Male 08/31/2020 7:44 AM CNC 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 Sexual Orientation Straight 08/31/2020 7: 44 AM CNC 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 documented as of this encounter Miscellaneous Notes * Telephone Encounter - My Jon MA - 03/30/2009 4:22 PM CDT Called patients informed her rx sent to pharmacy and he can have xrays done anytime, no appt needed. * Telephone Encounter - Jose Rust DO - 03/30/2009 4:13 PM CDT Rx sent for pain meds. See if pain persists. No appt needed for CXR, order should be there(whereverit was 1st sent) * Telephone Encounter - Gemini Breaux LPN - 03/30/2009 3:51 PM CDT Per the patient's back pain is getting worse. The medication ordered by Dr Mata for his back pain is not helping. She would like something sent to the pharmacy for pain relief. She needs to reschedule chest X ray. The patient did not have x ray done on date ordered due to severe back pain/spouses report. documented in this encounter Plan of Treatment Not on file documented as of this encounter Visit Diagnoses Not on filedocumented in this encounter
--- OUTSIDE RECORDS SUMMARY | 2024-09-06 20:30 | XMS_ITS | Referral Summary ---
Author Organization [facility] Address [address] [place] [address] Care Team Providers Care Double Backer Name Role Phone Alf Khan DO Primary Care Provider [phone] Allergies Active Allergy Reactions Criticality Noted Date [...] on file Legal Sex Male 10:34 AM RN INTERN Gender Identity Not on file Sexual Orientation Not on file Last Filed Vital Signs Vital Sign Reading [...] 04/20/2023 3:43 PM CDT Plan of Treatment Not on file Insurance [facility] Care Teams Double Backer Relationship Specialty Start Date End Date Alf Khan DO [address] [place] [address] PCP - General 07/11/21
--- OUTSIDE RECORDS SUMMARY | 2024-09-06 20:30 | XMS_ITS | Encounter Summary ---
Author Organization [facility] Address [address] [place] [address] Care Team Providers Care Distillery Laborer Name Role Phone Unavailable Primary Care Provider Unavailabl e Reason for Visit * Reason Comments Shoulder Pain Pain Arm Encounter Details Date Type Department Care Team (Late st Contact Info) Description 04/01/2009 11:30 AM CDT Office Visit [facility] - Family Medicine [address] [place] [address] Jammie Mata DO [address] [place] [address] Radicular Pain in Left Arm (Primary Dx) Social History Tobacco Use Types Packs/Day Years Used Date Smoking Tobacco: Every Day Alcohol Use Standard Drinks/Week Comments Not Asked 0 (1 standard drink = 0.6 oz pur e alcohol) Sex and Gender Information Value Date Recorded Sex Assigned at Male 08/31/2020 7:44 AM GUIDANCE DIRECTOR Gender Identity Male 08/31/2020 7:44 AM GUIDANCE DIRECTOR Sexual Orientation Straight 08/31/2020 7: 44 AM GUIDANCE DIRECTOR documented as of this encounter Last Filed Vital Signs Vital Sign Reading Time Taken Comments Blood Pressure 142/86 04/01/2009 11:56 AM CDT Pulse 84 04/01/2009 11:56 AM CDT Temperature 36.8 ??C (98.2 ??F) 04/01/2009 11:56 AM C DT Respiratory Rate 18 04/01/2009 11:56 AM CDT Oxygen Saturation - - Inhaled Oxygen Concentration - - Weight 94.9 kg (209 lb 3.2 oz) 04/01/2009 11:56 AM CDT Height - - Body Mass Index - - documented in this encounter Progress Notes * Jammie Mata DO - 04/01/2009 12:23 PM CDT SUBJECTIVE: Trenton Crockett is a 43 y.o. male who presents with left arm pain and weakness. Symptom onset has been worsening for a time period of 1 week(s). Severity is described as moderate. Course of his symptoms over time is worsening. Radicular pain into the elbow and forearm. Numbness into the 4th and 5th left fingers occationally involving entire hand. Pain is somewhat positional, improving with resting hand on opposite shoulder. Exacerbation with turning the neck to the right. OBJECTIVE: Blood pressure 142/86, pulse 84, temperature 98.2 ??F, temperature source Oral, resp. rate 18, weight 94.892 kg (209 lb 3.2 oz). General appearance: alert, well appearing, and in no distress, oriented to person, place, and time and normal appearing weight. Musculoskeletal exam: no joint tenderness, deformity or swelling, no muscular tenderness noted. Neurological exam reveals neck supple without rigidity, cranial nerves II through XII intact, sensory changes along the C7, C8 nerve distribution. Motor grossly normal bilaterally, normal muscle tone, no tremors, strength 5/5. Skin exam - normal coloration and turgor, no rashes, no suspicious skin lesions noted. ASSESSMENT/PLAN: Encounter Diagnoses Code Name Primary? Qualifier ??? 729.2DK Radicular Pain in Left Arm Yes Plan: MRI SPINE CERVICAL NON CONTRAST, HYDROCODONE-ACETAMINOPHEN 5-500 MG PO TABS * Alyse Vu MA - 04/01/2009 11:54 AM CDT Pain in left elbow and shoulder pain And pain in the left back where the should blade is The pain med Darvocet is not helping with the pain documented in this encounter Plan of Treatment Not on file documented as of this encounter Results * MRI SPINE CERVICAL NON CONTRAST (04/05/2009 [...] appreciated. C7-T1: Normal. Procedure Note Lilliam Morris - 04/05/2009 INDICATION: Cervical radiculopathy to right [...] proximal left neural foraminal stenosis results. Jammie Mergenmeier DO MR ORDERABLES documented in this encounter Visit Diagnoses Diagnosis Radicular pain in left arm- Primary Neuralgia, neuritis, and radiculitis, unspecified Radicular pain in left arm Neuralgia, neuritis, and radiculitis, unspecified documented in this encounter
--- OUTSIDE RECORDS SUMMARY | 2024-09-06 20:30 | XMS_ITS | Encounter Summary ---
Author Organization [facility] Address [address] [place] [address] Care Team Providers Care Powerhouse Mechanic Supervisor Name Role Phone Unavailable Primary Care Provider Trang e Encounter Details Date Type Department Care Team (Latest Contact Info) Description 03/31/2009 8:56 AM CDT - 03/31/2009 11:59 PM CDT Hospital Encounter [facility] Services - Radiology [address] [place] [address] Discharge Disposition: Home or Self Care Social History Tobacco Use Types Packs/Day Years Used Date Smoking Tobacco: Every Day Alcohol Use Standard Drinks/Week Comments Not Asked 0 (1 standard drink = 0.6 oz pur e alcohol) Sex and Gender Information Value Date Recorded Sex Assigned at Male 08/31/2020 7:44 AM TEST GRADER Gender Identity Male 08/31/2020 7:44 AM TEST GRADER Sexual Orientation Straight 08/31/2020 7: 44 AM TEST GRADER documented as of this encounter Medications at [...] Associated Diagnosis Comments XR CHEST 2VW Routine 03/31/2009 9:20 AM CDT Acute Bronchitis documented in this encounter Results * XR CHEST PA AND LATERAL (03/31/2009 [...] IMPRESSION No evidence of active cardiopulmonary disease. Jammie Avilanmeichris DO DIAGNOSTIC IMAGIN G ORDERABLES documented in this encounter Visit Diagnoses Not on filedocumented in this encounter
--- OUTSIDE RECORDS SUMMARY | 2024-09-06 20:30 | XMS_ITS | Encounter Summary ---
Author Organization [facility] Address [address] [place] [address] Care Team Providers Care Machine Paint Mixer Name Role Phone Unavailable Primary Care Provider Tragn e Encounter Details Date Type Department Care Team (Latest Contact Info) Description 04/05/2009 4:54 PM CDT - 04/05/2009 11:59 PM CDT Hospital Encounter [facility] [place] [address] [place] [address] Discharge Disposition: Home or Self Care Social History Tobacco Use Types Packs/Day Years Used Date Smoking Tobacco: Every Day Alcohol Use Standard Drinks/Week Comments Not Asked 0 (1 standard drink = 0.6 oz pur e alcohol) Sex and Gender Information Value Date Recorded Sex Assigned at Male 08/31/2020 7:44 AM TUBE ROLLER Gender Identity Male 08/31/2020 7:44 AM TUBE ROLLER Sexual Orientation Straight 08/31/2020 7: 44 AM TUBE ROLLER documented as of this encounter Medications at [...] by mouth daily. 30 6 03/25/2009 06/16/2009 hydrocodone-acetaminophen (VICODIN) 5-500 MG tabletIndications:Radicul ar pain in left arm Take 1 Tab by mouth every 4 hours as needed for Pain. 30 0 04/01/2009 04/13/2009 lisinopril (ZESTRIL) 20 MG tabletIndications:HTN Take 1 Tab by mouth daily. 90 1 03/25/2009 06/16/2009 methylPREDNISolone (MEDROL DOSEPAK) 4 MG tabletIndications:Sprain thoracic region Take 1 Tab by mouth as directed. 21 0 03/25/2009 06/16/2009 piroxicam (FELDENE) 20 MG capsuleIndications:Radicu lar pain in left arm Take 1 Cap by mouth daily. 35 1 04/01/2009 06/16/2009 propoxyphene napsylate-acetaminophen (DARVOCET-N 100) 100-650 MG [...] 03/25/2009 06/16/2009 documented as of this encounter Progress Notes * Alyse Vu MA - 04/08/2009 3:47 PM CDTQuick Note: Talked to patient re labs referred to neuro surgeon * Jammie Mata DO - 04/06/2009 8:44 AM CDTQuick Note: Call patient and let know MRI abnormal and referred to neurosurgery. documented in this encounter Miscellaneous Notes * Miscellaneous Scans - Document, Scanned - 04/05/2009 12:00 AM CDT documented in this encounter Plan of Treatment Not on file documented as of this encounter Procedures Procedure Name Priority Date/Time Associated Diagnosis Comments MRI CERVICAL SPINE WO CONTRAST Routine 04/05/2009 5:58 PM CDT Radicular Pain in Left Arm documented in this encounter Results * MRI SPINE CERVICAL [...] proximal left neural foraminal stenosis results. Jammie Avilanmeier MR ORDERABLES documented in this encounter Visit Diagnoses Diagnosis Radicular pain in left arm Neuralgia, neuritis, and radiculitis, unspecified documented in this encounter
--- OUTSIDE RECORDS SUMMARY | 2024-09-06 20:30 | XMS_ITS | Encounter Summary ---
Author Organization [facility] Address [address] [facility] [place] [address] Care Team Providers Care Sap Specialist Name Role Phone Unavailable Primary Care Provider Unavailabl e Reason for Visit * Reason Comments Hypertension Pt is here for a rec heck on his blood pressure and cholesterol. He has not taken any meds in months, he states he just forgets would prefer not to take a diuretic d/t lack of place to void on the job site. Hyperlipidemia no meds for months. smoking 1 ppd now-previously 2 ppd Pain Back He c/o low back pain , no known injury. First started about one month ago. Pain Abdominal He's had a pain in h is upper abd, denies any N/V/D or heartburn. Pain Arm stinging pains in th e L popliteal fossa. occur rarely, no pattern to same. Pain Neck He has had some disc omfort in his neck that radiates into his left arm intermittently. Chest Pain has had a few episod es of substernal pressure. Father of CAD or CVA. Encounter Details Date Type Department Care Team (Late st Contact Info) Description 03/28/2010 3:30 PM CDT Office Visit [facility] - Family Medicine [address] [place] [address] Jose Rust DO [address] [place] [address] Chest Pain (Primary Dx); HTN (Hypertension), Benign; HYPERLIPIDEMIA; Back Pain; Neck Pain; Screening for Unspecified Condition; Elevated WBC Count Social History Tobacco Use Types Packs/Day Years Used Date Smoking Tobacco: Every Day Alcohol Use Standard Drinks/Week Comments Not Asked 0 (1 standard drink = 0.6 oz pur e alcohol) Sex and Gender Information Value Date Recorded Sex Assigned at Male 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 Gender Identity Male 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 Sexual Orientation Straight 08/31/2020 7: 44 AM ODD BUNDLE WORKER documented as of this encounter Last Filed Vital Signs Vital Sign Reading Time Taken Comments Blood Pressure 136/100 03/28/2010 4:09 PM CDT Pulse 98 03/28/2010 4:09 PM CDT Temperature - - Respiratory Rate - - Oxygen Saturation - - Inhaled Oxygen Concentration - - Weight 99.6 kg (219 lb 8 oz) 03/28/2010 4:09 PM CDT Height 180.3 cm (5' 11 ) 03/28/2010 4:09 PM CDT Body Mass Index 30.61 03/28/2010 4:09 PM CDT documented in this encounter Progress Notes * Charito Feliciano MA - 03/30/2010 2:22 PM CDTQuick Note: Spoke with patient about 03/28/2010 lipid, cmp, cbc, tsh, and ua test results per Dr Rust's orders. Ordered future CBC and Zocor rx. * Charito Feliciano MA - 03/30/2010 2:20 PM CDTAddended by: CHARITO FELICIANO on: 03/30/2010 2:20:50 PM Modules accepted: Orders * Cori Dumont MA - 03/30/2010 9:41 AM CDTQuick Note: Called lab,and added iron profile,and hep profile. Left message for pt to call back. * Jose Rust DO - 03/29/2010 8:07 PM CDTQuick Note: Blood tests returned with a few concerns. First is an unfavorable lipid profile. Need to improve this with diet, and Rx, retest in 6 mo's. Limit chol in diet to 200-300 mg QD. Also have a slightly high H&H. Likely a result of smoking, but need an Fe+ profile. You also have a slightly elevated WBC, unsure of the cause. Will repeat CBC in 3 mo's for observation. Lastly you have one liver NZ elevated. Unsure why, need a Hepatitis diag profile, and if neg, a liver US. Rx Zocor 20 mg QD #30 r-5 * Petros Beltran - 03/29/2010 11:17 AM CDTAddended by: PETROS BELTRAN on: 03/29/2010 11:17:13 AM Modules accepted: Orders * Petros Beltran - 03/29/2010 11:17 AM CDT SCHEDULED AT [facility] 04/06/2010 @10:30 AM FOR STRESS ECHO CARDIOGRAM. [facility] AUTH#[id number] PER [place]. NOTIFIED PT DUE TO INS CANCELLED NUCLEAR STRESS TEST AND RESCHEDULED FOR STRESS ECHO. * Petros Beltran - 03/29/2010 10:11 AM CDT Scheduled pt @ [facility] for nuclear strees test at 8:30 on 04/06/2010. Pt aware of appt. * Jose Rust DO - 03/28/2010 4:41 PM CDT SUBJECTIVE: Trenton Crockett is a 44 y.o. male is here today for : Chief Complaint Patient presents with ??? Hypertension Pt is here for a recheck on his blood pressure and cholesterol. He has not taken any meds in months, he states he just forgets would prefer not to take a diuretic d/t lack of place to void on the job site. ??? Hyperlipidemia no meds for months. smoking 1 ppd now-previously 2 ppd ??? Pain Back He c/o low back pain, no known injury. First started about one month ago. ??? Pain Abdominal He's had a pain in his upper abd, denies any N/V/D or heartburn. ??? Pain Arm stinging pains in the L popliteal fossa. occur rarely, no pattern to same. ??? Pain Neck He has had some discomfort in his neck that radiates into his left arm intermittently. ??? Chest Pain has had a few episodes of substernal pressure. Father of CAD or CVA. Prior Encounter Medications Medication Sig Dispense Refill ??? verapamil CR (CALAN SR) 180 MG tablet Take 1 Tab by mouth daily. 30 2 ??? lisinopril-hydrochlorothiazide (PRINIZIDE; ZESTORETIC) 20-12.5 MG tablet Take 1 Tab by mouth daily. 30 5 ??? sulfamethoxazole-trimethoprim (BACTRIM DS; SEPTRA DS) 800-160 MG tablet Take 1 Tab by mouth every 12 hours. 14 0 ? ? varenicline (CHANTIX STARTING ) 0.5 MG X 11 & 1 MG X 42 tablets Take by mouth. Take 0.5 mg daily days 1-3, twice daily days 4-7, then 1 mg twice daily 1 pack 0 ??? varenicline (CHANTIX CONTINUING ) 1 MG tablet Take 1 Tab by mouth 2 times daily. 60 5 ??? simvastatin (ZOCOR) 20 MG tablet Take 1 Tab by mouth daily. 90 1 ??? albuterol HFA (PROVENTIL;VENTOLIN;PROAIR) 108 (90 BASE) MCG/ACT inhaler Inhale 2 Puffs by mouthevery 6 hours as needed 1 3 OBJECTIVE: BP 136/100 Pulse 98 Wt 99.565 kg (219 lb 8 oz) General appearance - alert, well appearing, and in no distress, oriented to person, place, and timeand overweight Mental status - alert, oriented to person, place, and time, normal mood, behavior, speech, dress, motor activity, and thought processes Chest - rales noted throughout Heart - normal rate, regular rhythm, normal S1, S2, no murmurs, rubs, clicks or gallops Abdomen - soft, nontender, nondistended, no masses or organomegaly Neurological - alert, oriented, normal speech, no focal findings or movement disorder noted, screening mental status exam normal, neck supple without rigidity, cranial nerves II through XII intact, DTR's normal and symmetric, motor and sensory grossly normal bilaterally Extremities - peripheral pulses normal, no pedal edema, no clubbing or cyanosis EKG - NSR, no ischemia ASSESSMENT/PLAN: Encounter Diagnoses Code Name Primary? Qualifier ??? 401.1E HTN (Hypertension), Benign Plan: URINALYSIS DIPSTICK AUTO, EKG 12-LEAD, PCHG ELECTROCARDIOGRAM, COMPLETE, COMPREHENSIVE METABOLIC PANEL, TSH, AMLODIPINE BESY-BENAZEPRIL HCL 5-20 MG PO CAPS ??? 272.4S HYPERLIPIDEMIA Plan: COMPREHENSIVE METABOLIC PANEL, LIPID PROFILE ??? 786.50F Chest Pain Plan: STRESS TEST NUCLEAR ??? 724.5E Back Pain ??? 723.1B Neck Pain ??? V82.9 Screening for Unspecified Condition Plan: CBC W AUTO DIFFERENTIAL Medications Discontinued During This Encounter Medication Reason ??? albuterol HFA (PROVENTIL;VENTOLIN;PROAIR) 108 (90 BASE) MCG/ACT inhaler ? ? varenicline (CHANTIX STARTING MONTH ) 0.5 MG X 11 & 1 MG X 42 tablets ??? varenicline (CHANTIX CONTINUING MONTH DEONDRE) 1 MG tablet ??? sulfamethoxazole-trimethoprim (BACTRIM DS; SEPTRA DS) 800-160 MG tablet Current outpatient prescriptions Medication Sig Dispense Refill ??? amlodipine-benazepril (LOTREL) 5-20 MG capsule Take 1 Cap by mouth daily. 30 2 ??? verapamil CR (CALAN SR) 180 MG tablet Take 1 Tab by mouth daily. 30 2 ??? lisinopril-hydrochlorothiazide (PRINIZIDE; ZESTORETIC) 20-12.5 MG tablet Take 1 Tab by mouth daily. 30 5 ??? simvastatin (ZOCOR) 20 MG tablet Take 1 Tab by mouth daily. 90 1 documented in this encounter Plan of Treatment Pending Results Name Type Priority Associated Diagnoses Date /Time ECHOCARDIOGRAM STRESS ECHO Routine HTN (Hypertension), Benign Hyperlipidemia Chest Pain 04/06/2010 10:10 AM CDT Scheduled Orders Name Type Priority Associated Diagnoses Orde r Schedule CBC W AUTO DIFFERENTIAL Lab Routine Elevated WBC Count Ordered: 03/30/2010 documented as of this encounter Procedures Procedure Name Priority Date/Time Associated Diagnosis Comments HEPATITIS SCREEN ACUTE W/REFLX HBSAG Routine 03/31/2010 7:00 AM CDT COMPREHENSIVE METABOLIC PANEL Routine 03/31/2010 7:00 AM CDT HTN (Hypertension), Benign Hyperlipidemia IRON + TIBC PANEL Routine 03/31/2010 7:0 0 AM CDT LIPID PROFILE Routine 03/31/2010 7:00 AM CDT Hyperlipidemia URINALYSIS NO MICROSCOPIC NO CULTURE Routine 03/29/2010 7:00 AM CDT HTN (Hypertension), Benign CBC W AUTO DIFFERENTIAL Routine 03/29/2010 7:00 AM CDT Screening for Unspecified Condition TSH Routine 03/29/2010 7:00 AM CDT HTN (Hypertension), Benign EKG 12-LEAD Routine 03/28/2010 HTN (Hypertension), Benign documented in this encounter Results * IRON + TIBC PANEL (03/31/2010 7:00 AM CDT) Pathologist [facility] Iron 122 45 - 170 mcg/dL [facility] TIBC 354 250 - 425 mcg/dL [facility] % Saturation 34 20 - 50 % (calc) [facility] Comment: Test Performed at: [facility] [address] [place], [place] ??[phone] BISI SCHWARZ DO,MPH 03/29/2010 5:4 6 AM CDT Jose Rust DO LAB - CHEMISTRY LIZABETH WILEY [facility] [address] [place] [address] * HEPATITIS SCREEN ACUTE W/REFLX HBSAG (POREF (03/31/2010 7:00 AM CDT) [facility] Hepatitis A Virus Antibody IgM NON-REACT QUINN NON - REACTIVE [facility] Comment: Test Performed at: [facility] [address] [place], [place] ??[phone] BISI SCHWARZ DO,MPH Hepatitis B Virus Surface Antigen NON-REACT QUINN NON - REACTIVE [facility] Hepatitis B Core Virus Antibody IgM NON-REACT QUINN NON - REACTIVE [facility] Hepatitis C Antibody NON-REACT QUINN NON - REACTIVE [facility] Signal to Cut-Off 0.07 <1.00 [facility] 03/29/2010 5:4 6 AM CDT Jose Rust DO LAB - CHEMISTRY ORDE INEZ Performing Organization Address [facility] de Phone Number [facility] [address] [place] [address] * (ABNORMAL) LIPID PROFILE (03/31/2010 7:00 AM CDT) Cholesterol 246(H) 125 - 200 mg/dL [facility] Comment: Test Performed at: [facility] [address] [place] [address] ??[phone] BISI SCHWARZ DO,MPH HDL Cholesterol 41 > OR = 40 mg/dL [facility] Triglycerides 347(H) <150 mg/dL [facility] BLOOD SPECIMEN / Unknown 03/29/2010 5:46 AM CDT Jose Rust DO LAB - CHEMISTRY ORDEcho WILEY Performing Organization Address [facility] de Phone Number [facility] [address] [place] [address] * (ABNORMAL) COMPREHENSIVE METABOLIC PANEL (03/31/2010 7:00 AM CDT) Glucose 80 65 - 99 mg/dL [facility] Comment: ? Fasting reference interval BUN 17 7 - 25 mg/dL [facility] Creatinine 0.89 0.78 - 1.34 mg/dL [facility] eGFR by MDRD >60 > OR = 60 mL/min/1. 73m2 [facility] eGFR by MDRD >60 > OR = 60 mL/min/1. 73m2 [facility] BUN/Creatinine Ratio NOT APPLICABLE 6 - 22 (calc) [facility] Comment: Bun/Creatinine ratio is not reported when the BUN and creatinine values are within normal limits. Sodium 139 135 - 146 mmol/L [facility] Potassium 4.6 3.5 - 5.3 mmol/L [facility] Chloride 102 98 - 110 mmol/L [facility] CO2 25 21 - 33 mmol/L [facility] Calcium 9.8 8.6 - 10.2 mg/dL [facility] Protein Total 7.4 6.2 - 8.3 g/dL [facility] Albumin 4.7 3.6 - 5.1 g/dL [facility] Globulin Total 2.7 2.1 - 3.7 g/dL (calc) [facility] Albumin/Globuli n Ratio 1.7 1.0 - 2.1 (calc) [facility] Bilirubin Total 1.0 0.2 - 1.2 mg/dL [facility] Alkaline Phosphatase 95 40 - 115 U/L [facility] AST 49(H) 10 - 40 U/L [facility] ALT 49 9 - 60 U/L [facility] Comment: Test Performed at: [facility] [address] [place], [place] ??[phone] BISI SCHWARZ DO,MPH BLOOD SPECIMEN / Unknown 03/29/2010 5:46 AM CDT Jose Rust DO LAB - CHEMISTRY LIZABETH WILEY Performing Organization Address [facility] de Phone Number [facility] [address] [place] [address] * TSH (03/29/2010 7:00 AM CDT) Pathologist [facility] TSH 1.93 0.40 - 4.50 mIU/L [facility] Comment: Test Performed at: [facility] [address] [place] [address] ??[phone] BISI SCHWARZ DO,MPH BLOOD SPECIMEN / Unknown 03/29/2010 5:46 AM CDT Jose Rust DO LAB - CHEMISTRY LIZABETH WILEY Performing Organization Address [facility] [place] [address] * (ABNORMAL) CBC W AUTO DIFFERENTIAL (03/29/2010 7:00 AM CDT) Pathologist [facility] White Blood Cell Count 11.8(H) 3.8 - 10.8 Thousand/u L [facility] RBC 5.23 4.20 - 5.80 Million/uL [facility] Hemoglobin 17.4(H) 13.2 - 17.1 g/dL [facility] Hematocrit 52.0(H) 38.5 - 50.0 % [facility] MCV 99.6 80.0 - 100.0 fL [facility] MCH 33.2(H) 27.0 - 33.0 pg [facility] MCHC 33.3 32.0 - 36.0 g/dL [facility] RDW 13.8 11.0 - 15.0 % [facility] Platelet Count 201 140 - 400 Thousand/u L [facility] Neutrophil Absolute 6962 1500 - 7800 cells/uL [facility] Lymphocytes Absolute 3693 850 - 3900 cells/uL [facility] Absolute Monocytes 920 200 - 950 cells/uL [facility] Eosinophils Absolute 201 15 - 500 cells/uL [facility] Basophils Absolute 24 0 - 200 cells/uL [facility] Granulocytes % 59.0 % [facility] Lymphocytes % 31.3 % [facility] Monocytes % 7.8 % [facility] Eosinophils % 1.7 % [facility] Basophils % 0.2 % [facility] Comment: Test Performed at: [facility] [address] [place], [place] ??[phone] BISI SCHWARZ DO,MPH BLOOD SPECIMEN / Unknown 03/29/2010 5:46 AM CDT Jose Rust DO LAB - HEMATOLOGY ORD ERABLES [facility] [address] [place] [address] * URINALYSIS DIPSTICK AUTO (03/29/2010 7:00 AM CDT) Comments [facility] Comment: The preferred specimen for urinalysis is urine preserved using a [employer] Urine Preservative Tube (yellow top, blue band) that may be obtained from your [employer] supplier. Color UA TNP [facility] Comment: TEST(S) NOT PERFORMED: ?COLOR ?APPEARANCE ?SPECIFIC GRAVITY ?PH ?GLUCOSE ?BILIRUBIN ?KETONES ?OCCULT BLOOD ?PROTEIN ?NITRITE ?LEUKOCYTE ESTERASE ?CRYSTALS * Test not performed. ?* * No suitable specimen received. * NO COLLECTION DATE RECEIVED. WE HAVE USED THE DATE THE SPECIMEN WAS RECEIVED BY THIS LABORATORY THE COLLECTION DATE. IF THIS IS INCORRECT, PLEASE CONTACT CLIENT SERVICES. PHONE NUMBER: [phone] Test Performed at: [facility] [address] [place] [address] ??[phone] BISI SCHWARZ DO,MPH URINE SPECIMEN OBTAINED BY CLEAN CATCH PROCEDURE / Unknown 03/29/2010 5:46 AM CDT Jose Rust DO LAB - URINALYSIS ORD ERABLES [facility] [address] [place] [address] * EKG 12-LEAD (03/28/2010) Jose Rust DO ECG ORDERABLES Performing Organization Address [facility]/ZIP Co de Phone Number [facility] RESULT SCAN documented in this encounter Visit Diagnoses Diagnosis Chest pain- Primary Chest pain, unspecified HTN (hypertension), benign Essential hypertension, benign Hyperlipidemia Other and unspecified hyperlipidemia Back pain Backache, unspecified Neck pain Cervicalgia Screening for unspecified condition Elevated WBC count Leukocytosis, unspecified documented in this encounter
--- OUTSIDE RECORDS SUMMARY | 2024-09-06 23:57 | XMS_ITS | Encounter Summary ---
Author Organization [facility] Address [address] 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 If he does [...] Counseled the patient on smoking cessation, Chantix, dcqq-hyt-aongvmq nicotine replacement systems patches and gums. Told them the risks of smoking include lung cancer, bladder cancer, COPD, mi and stroke. They have to be involved in the smokingcessation program or it will not succeed. In other words I cannot make someone quit smoking they have to want to quit smoking. I can give you Chantix and advice on the pjlt-jcw-pfgrsdl nicotine systems and I would suggest to [...] WHEEZING OR COUGH 18 g 1 ??? cwukkiorxh-acrfvmlsxjgkr-rmbnppqb (FIORICET) 50-300-40 MG capsule Take 1 (one) [...] WHEEZING OR COUGH 18 g 1 ??? scfifeswun-trgscqzdcrdpy-plmiqyne (FIORICET) 50-300-40 MG capsule Take 1 (one) [...] disorder documented in this encounter Care Teams Clerk Specialist Relationship Specialty Start Date End Date Alf Khan DO PCP - General Family Medicine 09/03/13 02/27/23 documented as of this encounter
--- OUTSIDE RECORDS SUMMARY | 2024-09-06 23:57 | XMS_ITS | Encounter Summary ---
Author Organization [facility] Address [address] [place] [address] Care Team Providers Care Endodontic Assistant Name Role Phone Alf Khan DO Primary Care Provider Stephan rosa Reason for Visit * Reason Comments Pain Managment pt follow up to ongo ing back pain and med refills Medication Check pharmacy confirmed w ith pt Encounter Details Date Type Department Care Team (Latest Contact Info) Description 10/26/2021 9:45 AM SUTURE GAUGER Office Visit [facility] - Family Medicine [address] [place] [address] Alf Khan DO Chronic pain syndrome (Primary [...] Sex Assigned at Male 08/31/2020 7:44 AM SUTURE GAUGER Gender Identity Male 08/31/2020 7:44 AM SUTURE GAUGER Sexual Orientation Straight 08/31/2020 7: 44 AM SUTURE GAUGER documented as of this encounter Last Filed Vital Signs Vital Sign Reading Time Taken Comments Blood Pressure 136/82 10/26/2021 9:51 AM SUTURE GAUGER Pulse 88 10/26/2021 9:36 AM SUTURE GAUGER Temperature 37 ??C (98.6 ??F) 10/26/2021 9:36 AM SUTURE GAUGER Respiratory Rate - - Oxygen Saturation 97% 10/26/2021 9:36 AM SUTURE GAUGER Inhaled Oxygen Concentration - - Weight 113.4 kg (250 lb) 10/26/2021 9:36 AM SUTURE GAUGER Height 180.3 cm (5' 11 ) 10/26/2021 9:36 AM SUTURE GAUGER Body Mass Index 34.87 10/26/2021 9:36 AM SUTURE GAUGER documented in this encounter Functional Status Functional [...] 9:47 AM CST Office Visit, Established Patient, [address] HISTORY: CC Trenton Crockett is a 55 [...] Counseled the patient on smoking cessation, Chantix, laag-rhf-qththjg nicotine replacement systems patches and gums. Told them the risks of smoking include lung cancer, bladder cancer, COPD, mi and stroke. They have to be involved in the smokingcessation program or it will not succeed. In other words I cannot make someone quit smoking they have to want to quit smoking. I can give you Chantix and advice on the ijmv-dge-xxvgjgk nicotine systems and I would suggest to [...] Wheezing or Cough 8.5 g 2 ??? gvdbxevibr-gonrslvylwbbh-dwwcciyw (FIORICET) 50-300-40 MG capsule Take 1 (one) [...] Wheezing or Cough 8.5 g 2 ??? vffqdsmkma-uqwxobdmhznxh-womawhis (FIORICET) 50-300-40 MG capsule Take 1 (one) [...] to call with any concerns or problems. RE GAUGER documented in this encounter Plan of Treatment [...] disc documented in this encounter Care Teams Endodontic Assistant Relationship Specialty Start Date End Date Alf Khan DO PCP - General Family Medicine 09/03/13 02/27/23 documented as of this encounter
--- OUTSIDE RECORDS SUMMARY | 2024-09-06 23:57 | XMS_ITS | Encounter Summary ---
Author Organization [facility] Address [address] 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 No / Unsure 07/13/2021 9:06 AM DYE WINCH OPERATOR documented as of this encounter Functional [...] CST Patient seen in the office today WINCH OPERATOR * Telephone Encounter - Deisi Duran - 07/12/2021 4:02 PM CST Irma voicemail is not set up. WINCH OPERATOR * Telephone Encounter - Jeremias Gutierrez - [...] Trenton seen the work doctor, followed by [facility]. Asking to follow up with ? Expected Response from the Clinic? ( ex. Call back, etc..) request call back. WINCH OPERATOR documented in this encounter Plan of [...] on filedocumented in this encounter Care Teams Securities Clerk Relationship Specialty Start Date End Date Alf Khan DO PCP - General Family Medicine 09/03/13 02/27/23 documented as of this encounter
--- OUTSIDE RECORDS SUMMARY | 2024-09-06 23:57 | XMS_ITS | Encounter Summary ---
Author Organization [facility] Address [address] [place] [address] Care Team Providers Care See Supervisor Name Role Phone Alf Khan DO Primary Care Provider Stephan rosa Reason for Visit * Reason Comments Pain Managment Pt follow up to ongo ing back pain and med refills Encounter Details Date Type Department Care Team (Latest Contact Info) Description 12/12/2022 3:30 PM CDT Office Visit [facility] - Family Medicine [address] [place] [address] Alf Khan DO Mixed hyperlipidemia (Primary Dx); [...] Sex Assigned at Male 08/31/2020 7:44 AM WATCH ASSEMBLY INSPECTOR Gender Identity Male 08/31/2020 7:44 AM WATCH ASSEMBLY INSPECTOR Sexual Orientation Straight 08/31/2020 7: 44 AM WATCH ASSEMBLY INSPECTOR documented as of this encounter Last [...] 3:30 PM CDT Office Visit, Established Patient, [address] HISTORY: CC Trenton Crockett is a 57 [...] Counseled the patient on smoking cessation, Chantix, pmen-dyy-sowmean nicotine replacement systems patches and gums. Told them the risks of smoking include lung cancer, bladder cancer, COPD, mi and stroke. They have to be involved in the smoking cessation program or it will not succeed. In other words I cannot make someone quit smoking they have to want to quit smoking. I can give you Chantix and advice on the icew-jdw-yiemjkg nicotine systems and I would suggest to [...] HOURS NEEDED 18 g 3 ??? HYDROcodone-acetaminophen ([place]) 5-325 MG tablet Take 1 (one) tablet by mouth every 4 hours asneeded for Pain Dx M50.30 120 tablet 0 ??? HYDROcodone-acetaminophen ([place]) 7.5-325 MG tablet Take 1 (one) tablet by mouth every 4 hours as needed for Pain Dx M50.30 120 tablet 0 ??? HYDROcodone-acetaminophen ([place]) 7.5-325 MG tablet Take 1 (one) tablet [...] 11 ) Wt 118.4 kg (261 lb) EtU595% BMI 36.40 kg/m?? General appearance - WM, [...] PROFILE 2. Chronic pain syndrome G89.4 HYDROcodone-acetaminophen ([place]) 5-325 MG tablet HYDROcodone-acetaminophen ([place]) 7.5-325 MG tablet HYDROcodone-acetaminophen ([place]) 7.5-325 MG tablet 3. Primary hypertension I10 PLAN: Orders Placed This Encounter ??? COMPREHENSIVE METABOLIC PANEL Order Specific Question: Release to patient Answer: Immediate ??? LIPID PROFILE Order Specific Question: Release to patient Answer: Immediate ??? HYDROcodone-acetaminophen ([place]) 5-325 MG tablet Sig: Take 1 (one) tablet by mouth every 4 hours as needed for Pain Dx M50.30 Dispense: 120 tablet Refill: 0 ??? HYDROcodone-acetaminophen ([place]) 7.5-325 MG tablet Sig: Take 1 (one) tablet by mouth every 4 hours as needed for Pain Dx M50.30 Dispense: 120 tablet Refill: 0 ??? HYDROcodone-acetaminophen ([place]) 7.5-325 MG tablet Sig: Take 1 (one) tablet by mouth every 4 hours as needed for Pain Dx M50.30 Dispense: 120 tablet Refill: 0 Goals ? ? Blood Pressure < 140/90 ??? Quit smoking / using tobacco Medications Discontinued During This Encounter Medication Reason ??? HYDROcodone-acetaminophen ([place]) 5-325 MG tablet No Pharm No AVS ??? HYDROcodone-acetaminophen ([place]) 7.5-325 MG tablet No Pharm No AVS ??? HYDROcodone-acetaminophen ([place]) 7.5-325 MG tablet No Pharm No AVS Current Outpatient Medications Medication Sig Dispense Refill ??? albuterol HFA (Proventil; Ventolin; Proair) 108 (90 Base) MCG/ACT inhaler INHALE 2 PUFFS BY MOUTH EVERY 4 HOURS NEEDED 18 g 3 ??? [START ON 02/03/2023] HYDROcodone-acetaminophen ([place]) 5-325 MG tablet Take 1 (one) tablet by mouth every 4 hours as needed for Pain Dx M50.30 120 tablet 0 ??? [START ON 01/07/2023] HYDROcodone-acetaminophen ([place]) 7.5-325 MG tablet Take 1 (one) tablet bymouth every 4 hours as needed for Pain Dx M50.30 120 tablet 0 ??? HYDROcodone-acetaminophen ([place]) 7.5-325 MG tablet Take 1 (one) tablet [...] benign documented in this encounter Care Teams See Supervisor Relationship Specialty Start Date End Date Alf Khan DO PCP - General Family Medicine 09/03/13 02/27/23 documented as of this encounter
--- OUTSIDE RECORDS SUMMARY | 2024-09-06 23:57 | XMS_ITS | Encounter Summary ---
Author Organization [facility] Address [address] [place] [address] Care Team Providers Care Licensed Clinician Name Role Phone Pcp, Manuel Pérez Primary Care Provider Unav ailable Reason for Visit * Reason Onset Date Comments Question 03/15/2023 Encounter Details Date Type Department Care Team (Late st Contact Info) Description 03/15/2023 Telephone [facility] - Surgery [address] [address] [place] [address] [facility] [address] [place] [address] Question Social History Tobacco Use [...] Sex Assigned at Male 08/31/2020 7:44 AM IT SECURITY CONSULTANT Gender Identity Male 08/31/2020 7:44 AM IT SECURITY CONSULTANT Sexual Orientation Straight 08/31/2020 7: 44 AM IT SECURITY CONSULTANT documented as of this encounter Functional [...] on filedocumented in this encounter Care Teams Licensed Clinician Relationship Specialty Start Date End Date PcpManuel PCP - General 02/28/23 documented as of this encounter
--- OUTSIDE RECORDS SUMMARY | 2024-09-06 23:57 | XMS_ITS | Encounter Summary ---
Author Organization [facility] Address [address] [place] [address] Care Team Providers Care Block Hand Name Role Phone Alf Khan DO [...] Sex Assigned at Male 08/31/2020 7:44 AM NETWORK SECURITY ARCHITECT Gender Identity Male 08/31/2020 7:44 AM NETWORK SECURITY ARCHITECT Sexual Orientation Straight 08/31/2020 7: 44 AM NETWORK SECURITY ARCHITECT COVID-19 Exposure Response Date Recorded In the last month, have you been in contact with someone who was confirmed or suspected to have Coronavirus / COVID-19? No / Unsure 08/25/2020 8:08 AM NETWORK SECURITY ARCHITECT documented as of this encounter Functional Status [...] on filedocumented in this encounter Care Teams Block Hand Relationship Specialty Start Date End Date Alf Khan DO PCP - General Family Medicine 09/03/13 02/27/23 documented as of this encounter
--- OUTSIDE RECORDS SUMMARY | 2024-09-06 23:57 | XMS_ITS | Encounter Summary ---
Author Organization [facility] Address [address] [place] [id number] Care Team Providers Care Storehouse Clerk Name Role Phone Alf Khan DO Primary Care Provider Stephan rosa Reason for Visit * Reason Comments Refill Request Encounter Details Date Type Department Care Team (Late st Contact Info) Description 06/20/2020 Refill [facility] - Family Medicine [address] [place] [address] Alf Khan, DO Refill Request Social History Tobacco Use Types Packs/Day Years Used Date Smoking Tobacco: Every Day Cigarettes 1.5 25 Started: 12/07/1985; Last attempted to quit: 12/07/2010 Smokeless Tobacco: Never Alcohol Use Standard Drinks/Week Comments Yes 0 (1 standard drink = 0.6 oz pur e alcohol) social Sex and Gender Information Value Date Recorded Sex Assigned at Male 08/31/2020 7:44 AM TABLE GAMES FLOOR SUPERVISOR Gender Identity Male 08/31/2020 7:44 AM TABLE GAMES FLOOR SUPERVISOR Sexual Orientation Straight 08/31/2020 7: 44 AM TABLE GAMES FLOOR SUPERVISOR documented as of this encounter Functional [...] on filedocumented in this encounter Care Teams Storehouse Clerk Relationship Specialty Start Date End Date Alf Khan DO PCP - General Family Medicine 09/03/13 02/27/23 documented as of this encounter
--- OUTSIDE RECORDS SUMMARY | 2024-09-06 23:57 | XMS_ITS | Encounter Summary ---
Author Organization [facility] Address [address] [place] [address] Care Team Providers Care Sulfonation Equipment Operator Name Role Phone Alf Khan DO Primary Care Provider Stephan rosa Reason for Visit * Reason Onset Date Comments MEDICATION REFILL 05/25/2021 Encounter Details Date Type Department Care Team (Late st Contact Info) Description 05/25/2021 Refill [facility] - Family Medicine [address] [place] [address] Alf Khan, DO MEDICATION REFILL Social History Tobacco Use Types Packs/Day Years Used Date Smoking Tobacco: Every Day Cigarettes 1.5 25 Started: 12/07/1985; Last attempted to quit: 12/07/2010 Smokeless Tobacco: Never Alcohol Use Standard Drinks/Week Comments Yes 0 (1 standard drink = 0.6 oz pur e alcohol) social Sex and Gender Information Value Date Recorded Sex Assigned at Male 08/31/2020 7:44 AM HEAD OF DIGITAL Gender Identity Male 08/31/2020 7:44 AM HEAD OF DIGITAL Sexual Orientation Straight 08/31/2020 7: 44 AM HEAD OF DIGITAL documented as of this encounter Functional Status [...] on filedocumented in this encounter Care Teams Sulfonation Equipment Operator Relationship Specialty Start Date End Date Alf Khan DO PCP - General Family Medicine 09/03/13 02/27/23 documented as of this encounter
--- OUTSIDE RECORDS SUMMARY | 2024-09-06 23:57 | XMS_ITS | Encounter Summary ---
Author Organization [facility] Address [address] [place] [address] Care Team Providers Care Trolley Car Overhauler Name Role Phone Alf Khan DO Primary Care Provider Stephan rosa Reason for Visit * Reason Comments Refill Request Encounter Details Date Type Department Care Team (Late st Contact Info) Description 10/17/2020 Refill [facility] - Family Medicine [address] [place] [address] Alf Khan, DO Refill Request Social History Tobacco Use Types Packs/Day Years Used Date Smoking Tobacco: Every Day Cigarettes 1.5 25 Started: 12/07/1985; Last attempted to quit: 12/07/2010 Smokeless Tobacco: Never Alcohol Use Standard Drinks/Week Comments Yes 0 (1 standard drink = 0.6 oz pur e alcohol) social Sex and Gender Information Value Date Recorded Sex Assigned at Male 08/31/2020 7:44 AM ACTUARIAL CLERK Gender Identity Male 08/31/2020 7:44 AM ACTUARIAL CLERK Sexual Orientation Straight 08/31/2020 7: 44 AM ACTUARIAL CLERK documented as of this encounter Functional [...] OF BREATH, WHEEZING OR COUGH MARTÍNEZ 08/31/20 ARIAL CLERK documented in this encounter Plan of Treatment Not on file documented as of this encounter Goals Goal Patient Goal Type Associated Problems Recent Progress Patient-Stated? Author Blood Pressure < 140/90 Blood Pressure 172/93(2022 8:59 AM CDT) Zachary Funez Quit smoking / using tobacco Lifestyle No Puja Raymundo documented as of this encounter Visit Diagnoses Not on filedocumented in this encounter Care Teams Trolley Car Overhauler Relationship Specialty Start Date End Date Alf Khan DO PCP - General Family Medicine 09/03/13 02/27/23 documented as of this encounter
--- OUTSIDE RECORDS SUMMARY | 2024-09-06 23:57 | XMS_ITS | Encounter Summary ---
Author Organization [facility] Address [address] [place] [address] Care Team Providers Care Anthropology And Archeology Instructor Name Role Phone Alf Khan DO Primary Care Provider Stephan rosa Reason for Visit * Reason Comments MEDICATION REFILL Pt is here for a 3 m [facility] follow up to review medications Encounter Details Date Type Department Care Team (Latest Contact Info) Description 06/27/2022 4:00 PM CDT Office Visit [facility] - Family Medicine [address] [place] [address] Alf Khan DO Chronic pain syndrome (Primary [...] Sex Assigned at Male 08/31/2020 7:44 AM PIG CASTER Gender Identity Male 08/31/2020 7:44 AM PIG CASTER Sexual Orientation Straight 08/31/2020 7: 44 AM PIG CASTER documented as of this encounter Last Filed [...] 4:12 PM CDT Office Visit, Established [place], [address] HISTORY: SYDNEE Trenton Crockett is a 56 [...] Counseled the patient on smoking cessation, Chantix, vjel-ofk-kmwcdmd nicotine replacement systems patches and gums. Told them the risks of smoking include lung cancer, bladder cancer, COPD, mi and stroke. They have to be involved in the smoking cessation program or it will not succeed. In other words I cannot make someone quit smoking they have to want to quit smoking. I can give you Chantix and advice on the rffg-lmz-jejerdk nicotine systems and I would suggest to [...] OR COUGH 18 g 2 ??? HYDROcodone-acetaminophen ([place]) 5-325 MG tablet Take 1 (one) tablet by mouth every 4 hours asneeded for Pain Dx M50.30 120 tablet 0 ??? HYDROcodone-acetaminophen ([place]) 7.5-325 MG tablet Take 1 (one) tablet by mouth every 4 hours as needed for Pain Dx M50.30 120 tablet 0 ??? HYDROcodone-acetaminophen ([place]) 7.5-325 MG tablet Take 1 (one) tablet [...] insurance/patient preference unless CHIVO selected. ??? HYDROcodone-acetaminophen ([place]) 5-325 MG tablet Sig: Take 1 (one) tablet by mouth every 4 hours as needed for Pain Dx M50.30 Dispense: 120 tablet Refill: 0 ??? HYDROcodone-acetaminophen ([place]) 7.5-325 MG tablet Sig: Take 1 (one) tablet by mouth every 4 hours as needed for Pain Dx M50.30 Dispense: 120 tablet Refill: 0 ??? HYDROcodone-acetaminophen ([place]) 7.5-325 MG tablet Sig: Take 1 (one) tablet by mouth every 4 hours as needed for Pain Dx M50.30 Dispense: 120 tablet Refill: 0 Goals ? ? Blood Pressure < 140/90 ??? Quit smoking / using tobacco Medications Discontinued During This Encounter Medication Reason ??? albuterol HFA (PROVENTIL; VENTOLIN; PROAIR) 108 (90 Base) MCG/ACT inhaler No Pharm No AVS ??? HYDROcodone-acetaminophen ([place]) 5-325 MG tablet No Pharm No AVS ??? HYDROcodone-acetaminophen ([place]) 7.5-325 MG tablet No Pharm No AVS ??? HYDROcodone-acetaminophen ([place]) 7.5-325 MG tablet No Pharm No AVS Current Outpatient Medications Medication Sig Dispense Refill ??? albuterol HFA (Proventil; Ventolin; Proair) 108 (90 Base) MCG/ACT inhaler INHALE 2 PUFFS BY MOUTH EVERY 4 HOURS NEEDED 18 g 3 ??? [START ON 08/17/2022] HYDROcodone-acetaminophen ([place]) 5-325 MG tablet Take 1 (one) tablet by mouth every 4 hours as needed for Pain Dx M50.30 120 tablet 0 ??? [START ON 07/23/2022] HYDROcodone-acetaminophen ([place]) 7.5-325 MG tablet Take 1 (one) tablet by mouth every 4 hours as needed for Pain Dx M50.30 120 tablet 0 ??? HYDROcodone-acetaminophen ([place]) 7.5-325 MG tablet Take 1 (one) tablet [...] disc documented in this encounter Care Teams Anthropology And Archeology Instructor Relationship Specialty Start Date End Date Alf Khan DO PCP - General Family Medicine 09/03/13 02/27/23 documented as of this encounter
--- OUTSIDE RECORDS SUMMARY | 2024-09-06 23:57 | XMS_ITS | Encounter Summary ---
Author Organization [facility] Address [address] [place] [address] Care Team Providers Care Cloth Checker Name Role Phone Alf Khan DO Primary Care Provider Stephan rosa Reason for Visit * Reason Comments Pain Back pt for ongoing back paiun and med refill Medication Check pharmacy confirmed w ith pt Encounter Details Date Type Department Care Team (Latest Contact Info) Description 11/22/2020 3:15 PM CDT Office Visit [facility] - Family Medicine [address] [place] [address] Alf Khan DO Annual physical exam (Primary [...] Sex Assigned at Male 08/31/2020 7:44 AM BUSINESS ACCOUNT EXECUTIVE Gender Identity Male 08/31/2020 7:44 AM BUSINESS ACCOUNT EXECUTIVE Sexual Orientation Straight 08/31/2020 7: 44 AM BUSINESS ACCOUNT EXECUTIVE COVID-19 Exposure Response Date Recorded In the last month, have you been in contact with someone who was confirmed or suspected to have Coronavirus / COVID-19? No / Unsure 10/31/2020 12:31 PM BUSINESS ACCOUNT EXECUTIVE documented as of this encounter Last Filed [...] low 20.7 normal is 30-100. Should take onpk-yes-ttmylhv vitamin-D 1000 units daily andget 15 min [...] 3:39 PM CDT Office Visit, Established [place], [address] HISTORY: CC Trenton Crockett is a 54 [...] Counseled the patient on smoking cessation, Chantix, bjqd-csm-gpdzpre nicotine replacement systems patches and gums. Told them the risks of smoking include lung cancer, bladder cancer, COPD, mi and stroke. They have to be involved in the smokingcessation program or it will not succeed. In other words I cannot make someone quit smoking they have to want to quit smoking. I can give you Chantix and advice on the uitm-avz-dkvxmsn nicotine systems and I would suggest to [...] 11 ) Wt 120.2 kg (265 lb) YwT427% BMI 36.96 kg/m?? General appearance - WM [...] CONFIRMATION (01/09/2021 10:45 AM CDT) Opiates Negative [id number]=[id number] [facility] ACCOUNT BILL Comment: Opiate test includes Codeine and Morphine only. FASTING 01/09/2021 10:4 5 AM CDT 01/09/2021 Narrative Resulting Agency Comment Lab Testing performed at: [facility] [place] [address] ??[place] [id number] Alf Khan DO LAB - URINE CHEMISTR Y ORDERABLES [facility] ACCOUNT BILL [address] [place] [address] * DRUG SCREEN URINE PANEL 9 (01/09/2021 [...] Resulting Agency Comment [facility]: [facility] [address] ??[place] [id number] Alf Khan DO LAB - URINE CHEMISTR Y ORDERABLES [facility] ACCOUNT BILL [address] [place] [address] * (ABNORMAL) TESTOSTERONE TOTAL (01/09/2021 10:45 AM CDT) Testosterone 211(L) 264 - 916 ng/dL [facility] ACCOUNT BILL Comment: Adult male reference interval is based on a population of healthy nonobese males (BMI <30) between 19 and 39 years old. Catherine et.al. JCEM 2017,102;8494-9325. PMID: [id number]. ? Please note reference interval change FASTING Blood BLOOD SPECIMEN / Unknown 01/09/2021 10:45 AM CDT 01/09/2021 Narrative Resulting Agency Comment Lab Testing performed at: [facility] [address] ??[facility] [id number] Alf Khan DO LAB - CHEMISTRY LIZABETH WILEY Performing Organization Address [facility] Co de Phone Number [facility] ACCOUNT BILL [address] [place] [address] * (ABNORMAL) HEMOGLOBIN A1C (01/09/2021 10:45 AM CDT) Hemoglobin A1c 6.1(H) 4.8 - 5.6 % [facility] ACCOUNT BILL Comment: ? . ? Prediabetes: 5.7 - 6.4 ? Diabetes: >6.4 ? Glycemic control for adults with diabetes: <7.0 FASTING Blood BLOOD SPECIMEN / Unknown 01/09/2021 10:45 AM CDT 01/09/2021 Narrative Resulting Agency Comment Lab Testing performed at: [facility] [address] ??[facility] [phone] Alf Khan DO LAB - CHEMISTRY LIZABETH WILEY Performing Organization Address City/[facility]/ZIP Co de Phone Number [facility] ACCOUNT BILL [address] [place] [address] * TSH (01/09/2021 10:45 AM CDT) Pathologist [facility] TSH 1.590 0.450 - 4.500 uIU/mL [facility] ACCOUNT BILL Comment:FASTING Blood BLOOD SPECIMEN / Unknown 01/09/2021 10:45 AM CDT 01/09/2021 Narrative Resulting Agency Comment Lab Testing performed at: [facility] [address] ??[facility] [phone] Alf Khan DO LAB - CHEMISTRY ORDE RABRAMON Performing Organization Address [facility] Co de Phone Number [facility] ACCOUNT BILL [address] [place] [address] * (ABNORMAL) URINALYSIS NO MICROSCOPIC NO CULTURE (01/09/2021 10:45 AM CDT) Specific [place] UA 1.029 1.005 - 1.030 [facility] ACCOUNT [...] Agency Comment Lab Testing performed at: [facility] [address] ??[facility] [id number] Alf Khan DO LAB - URINALYSIS ORD ERABLES Performing Organization Address [facility] de Phone Number [facility] ACCOUNT BILL [address] [place] [address] * (ABNORMAL) PROSTATE SPECIFIC ANTIGEN SCREEN (01/09/2021 10:44 AM CDT) PSA 4.5(H) 0.0 - 4.0 ng/mL [facility] ACCOUNT BILL Comment: Brenda ECLIA methodology. ? . According to the [place] [employer], Serum PSA should decrease and [...] Resulting Agency Comment Lab Testing performed at: [address] ??[facility] [phone] Alf Khan DO LAB - CHEMISTRY LIZABETH WILEY [facility] ACCOUNT BILL [address] [place] [address] * (ABNORMAL) VITAMIN D 25-HYDROXY (01/09/2021 10:44 AM CDT) Vitamin D, 25 Hydroxy 20.7(L) 30.0 - 100.0 ng/mL [facility] ACCOUNT BILL Comment: Vitamin D deficiency has been defined by the [place] of Medicine and an Endocrine Society practice guideline as a level of serum 25-OH vitamin D less than 20 ng/mL (1,2). The Endocrine Society went on to further define vitamin D insufficiency as a level between 21 and 29 ng/mL (2). 1. IOM ([place] of [employer]). 2010. Dietary reference ?? intakes for calcium and D. [place]: The ?? National Academminicabit Press. 2. Lynda MF, Nikolai [place], Hernandez CHOPRA, et al. ?? Evaluation, treatment, and prevention of vitamin D ?? deficiency: an Endocrine Society clinical practice ?? guideline. JCEM. 2010; 96(7):1911-30. FASTING Blood BLOOD SPECIMEN / Unknown 01/09/2021 10:44 AM CDT 01/09/2021 Narrative Resulting Agency Comment Lab Testing performed at: [facility] [address] ??[place] [id number] Alf Khan DO LAB - CHEMISTRY ORDEcho WILEY Performing Organization Address [facility] Co de Phone Number [facility] ACCOUNT BILL [address] [place] [address] * (ABNORMAL) LIPID PROFILE (01/09/2021 10:44 AM [...] Agency Comment Lab Testing performed at: [facility] ??[facility] [id number] Alf Khan DO LAB - CHEMISTRY LIZABETH WILEY Performing Organization Address [facility] de Phone Number [facility] ACCOUNT BILL [address] [place] [address] * (ABNORMAL) COMPREHENSIVE METABOLIC PANEL (01/09/2021 10:44 [...] Resulting Agency Comment Lab Testing performed at: [address] ??[facility] [phone] Alf Khan DO LAB - CHEMISTRY ELIZAE INEZ [facility] ACCOUNT BILL [address] [place] [address] * (ABNORMAL) CBC WITH DIFFERENTIAL (01/09/2021 10:44 [...] Resulting Agency Comment [facility] [address] ??[facility] [id number] Alf Khan DO LAB - HEMATOLOGY ORD ERABLES [facility] ACCOUNT BILL [address] [place] [address] documented in this encounter Visit Diagnoses Diagnosis [...] site documented in this encounter Care Teams Cloth Checker Relationship Specialty Start Date End Date Alf Khan DO PCP - General Family Medicine 09/03/13 02/27/23 documented as of this encounter
--- OUTSIDE RECORDS SUMMARY | 2024-09-06 23:57 | XMS_ITS | Encounter Summary ---
Author Organization [facility] Health Address [address] [place] [address] Care Team Providers Care Custom Ski Maker Name Role Phone Alf Khan DO Primary Care Provider Stephan rosa Reason for Visit * Reason Comments Refill Request Encounter Details Date Type Department Care Team (Late st Contact Info) Description 12/12/2021 Refill [facility] - Family Medicine [address] [place] [address] Alf Khan, DO Refill Request Social History [...] Sex Assigned at Male 08/31/2020 7:44 AM CIGAR WRAPPER Gender Identity Male 08/31/2020 7:44 AM CIGAR WRAPPER Sexual Orientation Straight 08/31/2020 7: 44 AM CIGAR WRAPPER documented as of this encounter Functional Status [...] on filedocumented in this encounter Care Teams Custom Ski Maker Relationship Specialty Start Date End Date Alf Khan DO PCP - General Family Medicine 09/03/13 02/27/23 documented as of this encounter
--- OUTSIDE RECORDS SUMMARY | 2024-09-06 23:57 | XMS_ITS | Encounter Summary ---
Author Organization [facility] Health Address [address] [place] [address] Care Team Providers Care Campaign Specialist Name Role Phone Alf Khan DO Primary Care Provider Stephan rosa Reason for Visit * Reason Onset Date Comments MEDICATION REFILL 02/04/2023 Encounter Details Date Type Department Care Team (Late st Contact Info) Description 02/04/2023 Refill [facility] - Family Medicine [address] [place] [address] Alf Khan, DO MEDICATION REFILL Social History [...] Sex Assigned at Male 08/31/2020 7:44 AM CHANGE ATTENDANT Gender Identity Male 08/31/2020 7:44 AM CHANGE ATTENDANT Sexual Orientation Straight 08/31/2020 7: 44 AM CHANGE ATTENDANT documented as of this encounter Functional [...] set up. * Telephone Encounter - Kylie Bruroughs RN - 02/04/2023 1:30 PM CDT Irma Raymundo contacted regarding patient's [place]. Not on HIPAA. States that patient's medication [...] syndrome documented in this encounter Care Teams Campaign Specialist Relationship Specialty Start Date End Date Alf Khan DO PCP - General Family Medicine 09/03/13 02/27/23 documented as of this encounter
--- OUTSIDE RECORDS SUMMARY | 2024-09-06 23:57 | XMS_ITS | Encounter Summary ---
Author Organization [facility] Health Address [address] [place] [address] Care Team Providers Care Forge Shop Machine Repairer Name Role Phone Alf Khan DO Primary Care Provider Stephan rosa Reason for Visit * Reason Onset Date Comments Medication Issue 02/05/2022 Encounter Details Date Type Department Care Team (Late st Contact Info) Description 02/05/2022 Telephone [facility] - Family Medicine [address] [place] [address] Alf Khan, DO Medication Issue Social History [...] Assigned at Male 08/31/2020 7:44 AM MANAGER CLINICAL APPLICATIONS Gender Identity Male 08/31/2020 7:44 AM MANAGER CLINICAL APPLICATIONS Sexual Orientation Straight 08/31/2020 7: 44 AM MANAGER CLINICAL APPLICATIONS documented as of this encounter Functional Status [...] 02/05/2022 9:30 AM CDT 01/18/2022 [facility] [place] but only had 18 day supply. Can [...] on filedocumented in this encounter Care Teams Forge Shop Machine Repairer Relationship Specialty Start Date End Date Alf Khan DO PCP - General Family Medicine 09/03/13 02/27/23 documented as of this encounter
--- OUTSIDE RECORDS SUMMARY | 2024-09-06 23:57 | XMS_ITS | Encounter Summary ---
Author Organization [facility] Address [address] [place] [address] Care Team Providers Care Mold Dumper Name Role Phone Alf Khan DO Primary Care Provider Stephan rosa Reason for Visit * Reason Comments Staple removal if ready to be remov ed having headache and dizziness Encounter Details Date Type Department Care Team (Latest Contact Info) Description 07/17/2021 10:45 AM PATTERN CHANGER Office Visit [facility] - Family Medicine [address] [place] [address] Alf Khan DO Postconcussion syndrome (Primary Dx); [...] Sex Assigned at Male 08/31/2020 7:44 AM PATTERN CHANGER Gender Identity Male 08/31/2020 7:44 AM PATTERN CHANGER Sexual Orientation Straight 08/31/2020 7: 44 AM PATTERN CHANGER COVID-19 Exposure Response Date Recorded In the last month, have you been in contact with someone who was confirmed or suspected to have Coronavirus / COVID-19? No / Unsure 07/13/2021 9:06 AM PATTERN CHANGER documented as of this encounter Last Filed Vital Signs Vital Sign Reading Time Taken Comments Blood Pressure 130/80 07/17/2021 11:09 AM PATTERN CHANGER Pulse 87 07/17/2021 11:09 AM PATTERN CHANGER Temperature 37 ??C (98.6 ??F) 07/17/2021 11: 09 AM PATTERN CHANGER Respiratory Rate - - Oxygen Saturation 95% 07/17/2021 11: 09 AM PATTERN CHANGER Inhaled Oxygen Concentration - - Weight 113.9 kg (251 lb 3.2 oz) 021 11:09 AM PATTERN CHANGER Height 180.3 cm (5' 11 ) 07/17/2021 11: 09 AM PATTERN CHANGER Body Mass Index 35.04 07/17/2021 11:09 AM PATTERN CHANGER documented in this encounter Functional Status Functional [...] 11:23 AM CST Office Visit, Established Patient, [id number] HISTORY: SYDNEE Trenton Crockett is a 55 [...] like TV or computer work. Went to [facility] and CT was neg. 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 Her Patient takes [place] for back pain. Pain is described as [...] Counseled the patient on smoking cessation, Chantix, giju-jdp-xsozeyz nicotine replacement systems patches and gums. Told them the risks of smoking include lung cancer, bladder cancer, COPD, mi and stroke. They have to be involved in the smokingcessation program or it will not succeed. In other words I cannot make someone quit smoking they have to want to quit smoking. I can give you Chantix and advice on the cogm-qhu-linyzsv nicotine systems and I would suggest to [...] 4-5 cm laceration that appears well healed. [place] removed Depression: PHQ-2:PHQ2 TOTAL SCORE: 0 PHQ-9: [...] tongue Dispense: 20 tablet Refill: 2 ??? ajsbquxnpl-qqnivvpgkiyem-xuwxvdrq (FIORICET) 50-300-40 MG capsule Sig: Take 1 [...] Wheezing or Cough 8.5 g 2 ??? kkuxfcadfn-depbbygmfifkr-gwocmezq (FIORICET) 50-300-40 MG capsule Take 1 (one) [...] to call with any concerns or problems. ERN CHANGER documented in this encounter Plan of Treatment [...] encounter documented in this encounter Care Teams Mold Dumper Relationship Specialty Start Date End Date Alf Khan DO PCP - General Family Medicine 09/03/13 02/27/23 documented as of this encounter
--- OUTSIDE RECORDS SUMMARY | 2024-09-06 23:57 | XMS_ITS | Encounter Summary ---
Author Organization [facility] Health Address [address] [place] [address] Care Team Providers Care Supervisor Meter Repair Shop Name Role Phone Alf Khan DO Primary Care Provider Stephan rosa Reason for Visit * Reason Onset Date Comments MEDICATION REFILL 02/14/2022 Encounter Details Date Type Department Care Team (Late st Contact Info) Description 02/14/2022 Refill [facility] - Family Medicine [address] [place] [address] Alf Khan, DO MEDICATION REFILL Social History [...] Assigned at Male 08/31/2020 7:44 AM PATTERN MOLDER Gender Identity Male 08/31/2020 7:44 AM PATTERN MOLDER Sexual Orientation Straight 08/31/2020 7: 44 AM PATTERN MOLDER documented as of this encounter Functional Status [...] pharmacy does not want script going to [facility]. documented in this encounter Plan of Treatment [...] filedocumented in this encounter Care Teams Supervisor Meter Repair Shop Relationship Specialty Start Date End Date Alf Khan DO PCP - General Family Medicine 09/03/13 02/27/23 documented as of this encounter
--- OUTSIDE RECORDS SUMMARY | 2024-09-06 23:57 | XMS_ITS | Encounter Summary ---
Author Organization [facility] Address [address] [place] [address] Care Team Providers Care Pediatric Neuropsychologist Name Role Phone Alf Khan DO Primary Care Provider Stephan rosa Reason for Visit * Reason Comments Pain Managment pt follow up to ongo ing back pain and refill Medication Check pharmacy confirmed w ith pt Encounter Details Date Type Department Care Team (Latest Contact Info) Description 05/04/2021 3:15 PM CDT Office Visit [facility] - Family Medicine [address] [place] [address] Alf Khan DO Degeneration of cervical intervertebral [...] Sex Assigned at Male 08/31/2020 7:44 AM OFFSET DUPLICATING 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 Gender Identity Male 08/31/2020 7:44 AM OFFSET DUPLICATING 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 Sexual Orientation Straight 08/31/2020 7: 44 AM OFFSET DUPLICATING 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 documented as of this encounter [...] 3:43 PM CDT Office Visit, Established Patient, [id number] HISTORY: SYDNEE Doughertydominique Crockett is a 55 year old male patient, here for: Chief Complaint Patient presents with ??? Pain Managment pt follow up to ongoing back pain and refill ??? Medication Check pharmacy confirmed with pt HPI: Patient is here for medication refill Patient takes [place] for back pain. Pain is described as [...] Counseled the patient on smoking cessation, Chantix, jhdl-rxr-ywufpqv nicotine replacement systems patches and gums. Told them the risks of smoking include lung cancer, bladder cancer, COPD, mi and stroke. They have to be involved in the smokingcessation program or it will not succeed. In other words I cannot make someone quit smoking they have to want to quit smoking. I can give you Chantix and advice on the prxf-qsa-mmenfgt nicotine systems and I would suggest to [...] 11 ) Wt 117.5 kg (259 lb) MrI336% BMI 36.12 kg/m?? General appearance - WM [...] norco 7.5 Mg for 90 days I fqqpgugqtpq-ssa-hfp diet quit smoking and recheck cholesterol if [...] lifestyle control long but not quit smoking OK come down another5 or 10 points if [...] COVID-19 documented in this encounter Care Teams Pediatric Neuropsychologist Relationship Specialty Start Date End Date Alf Khan DO PCP - General Family Medicine 09/03/13 02/27/23 documented as of this encounter
--- OUTSIDE RECORDS SUMMARY | 2024-09-06 23:57 | XMS_ITS | Encounter Summary ---
Author Organization [facility] Address [address] [place] [address] Care Team Providers Care Lay Ups Assembler Name Role Phone Alf Khan DO Primary Care Provider Stephan rosa Reason for Visit * Reason Comments Pain Managment Pain med refill. Luke fox pain is new. Pt thinks MRI is needed Encounter Details Date Type Department Care Team (Latest Contact Info) Description 04/12/2022 4:00 PM CDT Office Visit [facility] - Family Medicine [address] [place] [address] Alf Khan DO Chronic pain syndrome (Primary [...] Sex Assigned at Male 08/31/2020 7:44 AM PLEATING 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 Gender Identity Male 08/31/2020 7:44 AM PLEATING 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 Sexual Orientation Straight 08/31/2020 7: 44 AM PLEATING 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 documented as of this encounter [...] this encounter Progress Notes * Roopa Paiz, PREVENTION COORDINATOR-TRACTOR CRANE OPERATOR - 04/12/2022 4:16 PM CDT Office Visit, Established Patient, [id number] HISTORY: SYDNEE Doughertydominique Crockett is a 56 [...] Counseled the patient on smoking cessation, Chantix, vfus-web-krwmnnc nicotine replacement systems patches and gums. Told them the risks of smoking include lung cancer, bladder cancer, COPD, mi and stroke. They have to be involved in the smoking cessation program or it will not succeed. In other words I cannot make someone quit smoking they have to want to quit smoking. I can give you Chantix and advice on the stnb-vlx-ytbfokd nicotine systems and I would suggest to [...] WHEEZING OR COUGH 18 g 2 ??? juwbjtmhfk-ralaonfzwvyhx-hzbxagdm (FIORICET) 50-300-40 MG capsule Take 1 (one) [...] performed? Answer: Per Radiologist protocol ??? HYDROcodone-acetaminophen ([place]) 5-325 MG tablet Sig: Take 1 (one) tablet by mouth every 4 hours as needed for Pain Dx M50.30 Dispense: 120 tablet Refill: 0 ??? HYDROcodone-acetaminophen ([place]) 7.5-325 MG tablet Sig: Take 1 (one) tablet by mouth every 4 hours as needed for Pain Dx M50.30 Dispense: 120 tablet Refill: 0 ??? HYDROcodone-acetaminophen ([place]) 7.5-325 MG tablet Sig: Take 1 (one) tablet by mouth every 4 hours as needed for Pain Dx M50.30 Dispense: 120 tablet Refill: 0 Goals ? ? Blood Pressure < 140/90 ??? Quit smoking / using tobacco Medications Discontinued During This Encounter Medication Reason ??? ondansetron, disintegrating, (ZOFRAN ODT) 4 MG tablet No Pharm No AVS ??? otngvsyvfk-mefzsqoglreov-uggghadn (FIORICET) 50-300-40 MG capsule No Pharm No [...] g 2 ??? [START ON 06/04/2022] HYDROcodone-acetaminophen ([place]) 5-325 MG tablet Take 1 (one) tablet by mouth every 4 hours as needed for Pain Dx M50.30 120 tablet 0 ??? [START ON 05/08/2022] HYDROcodone-acetaminophen ([place]) 7.5-325 MG tablet Take 1 (one) tablet bymouth every 4 hours as needed for Pain Dx M50.30 120 tablet 0 ??? HYDROcodone-acetaminophen ([place]) 7.5-325 MG tablet Take 1 (one) tablet [...] disorder documented in this encounter Care Teams Lay Ups Assembler Relationship Specialty Start Date End Date Alf Khan DO PCP - General Family Medicine 09/03/13 02/27/23 documented as of this encounter
--- OUTSIDE RECORDS SUMMARY | 2024-09-06 23:57 | XMS_ITS | Encounter Summary ---
Author Organization [facility] Address [address] [place] [address] Care Team Providers Care Senior Linux Engineer Name Role Phone Alf Khan DO Primary Care Provider Stephan rosa Reason for Visit * Reason Comments Pain Back pt follow up to on ing back pain Imaging pt requesting MRI fo r his back now that he has insurance Physical Therapy pt requesting PT Encounter Details Date Type Department Care Team (Latest Contact Info) Description 08/31/2020 2:30 PM GLYCERIN SUPERVISOR Office Visit [facility] - Family Medicine [address] [place] [address] Alf Khan, DO Degeneration of lumbar or [...] Sex Assigned at Male 08/31/2020 7:44 AM GLYCERIN SUPERVISOR Gender Identity Male 08/31/2020 7:44 AM GLYCERIN SUPERVISOR Sexual Orientation Straight 08/31/2020 7: 44 AM GLYCERIN SUPERVISOR COVID-19 Exposure Response Date Recorded In the last month, have you been in contact with someone who was confirmed or suspected to have Coronavirus / COVID-19? No / Unsure 08/25/2020 8:08 AM GLYCERIN SUPERVISOR documented as of this encounter Last Filed Vital Signs Vital Sign Reading Time Taken Comments Blood Pressure 146/92 08/31/2020 2:21 PM GLYCERIN SUPERVISOR Pulse 80 08/31/2020 2:21 PM GLYCERIN SUPERVISOR Temperature 37 ??C (98.6 ??F) 08/31/2020 2:21 PM GLYCERIN SUPERVISOR Respiratory Rate - - Oxygen Saturation 97% 08/31/2020 2:21 PM GLYCERIN SUPERVISOR Inhaled Oxygen Concentration - - Weight 119.3 kg (263 lb) 08/31/2020 2:21 PM GLYCERIN SUPERVISOR Height 180.3 cm (5' 11 ) 08/31/2020 2:21 PM GLYCERIN SUPERVISOR Body Mass Index 36.68 08/31/2020 2:21 PM GLYCERIN SUPERVISOR documented in this encounter Functional Status Functional [...] 2:44 PM CST Office Visit, Established Patient, [id number] HISTORY: SYDNEE Trenton Crockett is a 54 [...] Counseled the patient on smoking cessation, Chantix, fsqn-xms-xhdogdy nicotine replacement systems patches and gums. Told them the risks of smoking include lung cancer, bladder cancer, COPD, mi and stroke. They have to be involved in the smokingcessation program or it will not succeed. In other words I cannot make someone quit smoking they have to want to quit smoking. I can give you Chantix and advice on the xkmy-xdi-weepzuh nicotine systems and I would suggest to [...] Referral Reason: Specialty Services Required Referral Location: [facility]ICAL [facility] (HOS[facility]) Number of Visits Requested: [...] to call with any concerns or problems. ERIN SUPERVISOR documented in this encounter Plan of [...] hypertension documented in this encounter Care Teams Senior Linux Engineer Relationship Specialty Start Date End Date Alf Khan DO PCP - General Family Medicine 09/03/13 02/27/23 documented as of this encounter
--- OUTSIDE RECORDS SUMMARY | 2024-09-06 23:57 | XMS_ITS | Encounter Summary ---
Author Organization [facility] Address [address] [address] Care Team Providers Care Medical Office Worker Name Role Phone Alf Khan DO [...] Sex Assigned at Male 08/31/2020 7:44 AM LAN ADMINISTRATOR Gender Identity Male 08/31/2020 7:44 AM LAN ADMINISTRATOR Sexual Orientation Straight 08/31/2020 7: 44 AM LAN ADMINISTRATOR COVID-19 Exposure Response Date Recorded In the last month, have you been in contact with someone who was confirmed or suspected to have Coronavirus / COVID-19? No / Unsure 10/31/2020 12:31 PM LAN ADMINISTRATOR documented as of this encounter Functional Status [...] filedocumented in this encounter Care Teams Medical Office Worker Relationship Specialty Start Date End Date Alf Khan DO PCP - General Family Medicine 09/03/13 02/27/23 documented as of this encounter
--- OUTSIDE RECORDS SUMMARY | 2024-09-06 23:57 | XMS_ITS | Patient Health Summary ---
Author Organization [facility] veriCAR Address [address] [facility] [place] [address] Care Team Providers Care Service And Repair Supervisor Name Role Phone Pcp, Manuel Pérez Primary Care Provider Unav ailable Note from [facility],non-owned Affiliates and Associated Physician Practices is amultiple site organization consisting of ambulatory clinics and hospital sitesin [place], [place], [place] and [place]. This disclosure is being madepursuant to the Care Everywhere program and may not contain all information available regarding this patient. Last updated 18.[facility] ver[facility]CAR Allergies * Perry Inhibitors(Cough) -Low Criticality * Azithromycin(Itching) Medications * Be aware that medications may not be up to date on this document. Alwaysverify current medications with the patient. * HYDROcodone-acetaminophen ([place]) 5-325 MG tablet(Started 02/03/2023) Take 1 (one) tablet by mouth every 4 hours as needed for Pain Dx M50.30 * HYDROcodone-acetaminophen ([place]) 7.5-325 MG tablet(Started 01/07/2023) Take 1 (one) tablet by mouth every 4 hours as needed for Pain Dx M50.30 * HYDROcodone-acetaminophen ([place]) 7.5-325 MG tablet(Started 12/12/2022) Take 1 (one) [...] Sex Assigned at Male 08/31/2020 7:44 AM TOP EDGE BEVELER Gender Identity Male 08/31/2020 7:44 AM TOP EDGE BEVELER Sexual Orientation Straight 08/31/2020 7: 44 AM TOP EDGE BEVELER Last Filed Vital Signs Vital Sign Reading [...] performed at: [facility] [address] ??[facility] [id number] Alf Khan DO LAB - URINE CHEMISTR Y ORDERABLES Performing Organization Address [facility] de Phone Number [facility] ACCOUNT BILL [address] [place] [address] * OPIATES URINE CONFIRMATION (01/09/2021 10:45 AM CDT) Pathologist [facility] Opiates Negative Pdzshn=728 [facility] ACCOUNT BILL Comment: Opiate test includes Codeine and Morphine only. FASTING 01/09/2021 10:4 5 AM CDT 01/09/2021 Narrative Resulting Agency Comment Lab Testing performed at: [facility] [address] ??[facility] [phone] Alf Khan DO LAB - URINE CHEMISTR Y ORDERABLES Performing Organization Address [facility] de Phone Number [facility] ACCOUNT BILL [address] [place] [address] * (ABNORMAL) URINALYSIS NO MICROSCOPIC NO CULTURE (01/09/2021 10:45 AM CDT) Only the most recent of5 resultswithin the time period is included. Specific [facility] UA 1.029 1.005 - 1.030 [facility] ACCOUNT [...] Agency Comment Lab Testing performed at: [facility] [address] ??[facility] [phone] Alf Khan DO LAB - URINALYSIS ORD ERABLES Performing Organization Address City/[facility]/ZIP Co de Phone Number [facility] ACCOUNT BILL [address] [place] [address] * (ABNORMAL) TESTOSTERONE TOTAL (01/09/2021 10:45 AM CDT) Testosterone 211(L) 264 - 916 ng/dL [facility] ACCOUNT BILL Comment: Adult male reference interval is based on a population of healthy nonobese males (BMI <30) between 19 and 39 years old. Catherine et.al. JCEM 2017,102;1728-2814. PMID: [id number]. ? Please note reference interval change FASTING Blood BLOOD SPECIMEN / Unknown 01/09/2021 10:45 AM CDT 01/09/2021 Narrative Resulting Agency Comment Lab Testing performed at: [facility] [address] ??[facility] [phone] Alf Khan DO LAB - CHEMISTRY ORDE RABLES [facility] ACCOUNT BILL [address] [place] [address] * (ABNORMAL) HEMOGLOBIN A1C (01/09/2021 10:45 AM [...] Agency Comment Lab Testing performed at: [facility] [address] ??[facility] [phone] Alf Khan DO LAB - CHEMISTRY ORDE School Yourself Performing Organization Address [facility] Co de Phone Number [facility] ACCOUNT BILL [address] [place] [address] * TSH (01/09/2021 10:45 AM CDT) Only the most recent of4 resultswithin the time period is included. TSH 1.590 0.450 - 4.500 uIU/mL [facility] ACCOUNT BILL Comment:FASTING Blood BLOOD SPECIMEN / Unknown 01/09/2021 10:45 AM CDT 01/09/2021 Narrative Resulting Agency Comment Lab Testing performed at: [facility] [address] ??[facility] [phone] Alf Susanne Bill DO LAB - CHEMISTRY ORDE [employer] Yourself Performing Organization Address City/[facility] Co de Phone Number [facility] ACCOUNT BILL [address] [place] [address] * (ABNORMAL) VITAMIN D 25-HYDROXY (01/09/2021 10:44 AM CDT) Only the most recent of3 resultswithin the time period is included. Vitamin D, 25 Hydroxy 20.7(L) 30.0 - 100.0 ng/mL [facility] ACCOUNT BILL Comment: Vitamin D deficiency has been defined by the [place] of Medicine and an Endocrine Society practice guideline as a level of serum 25-OH vitamin D less than 20 ng/mL (1,2). The Endocrine Society went on to further define vitamin D insufficiency as a level between 21 and 29 ng/mL (2). 1. IOM ([place] of Medicine). 2010. Dietary reference ?? intakes for calcium and D. [place]: The ?? National AcademICRTec Press. 2. Lynda MF, Nikolai NC, Hernandez CHOPRA, et al. ?? Evaluation, treatment, and prevention of vitamin D ?? deficiency: an Endocrine Society clinical practice ?? guideline. JCEM. 2010; 96(7):1911-30. FASTING Blood BLOOD SPECIMEN / Unknown 01/09/2021 10:44 AM CDT 01/09/2021 Narrative Resulting Agency Comment Lab Testing performed at: [facility] ??[facility] [phone] Alf Khan DO LAB - CHEMISTRY LIZABETH WILEY [facility] ACCOUNT BILL [address] [place] [address] * (ABNORMAL) CBC WITH DIFFERENTIAL (01/09/2021 10:44 [...] Resulting Agency Comment Lab Testing performed at: [address] ??[facility] [phone] Alf Khan DO LAB - HEMATOLOGY ORD ERABLES [facility] ACCOUNT BILL [address] [place] [address] * (ABNORMAL) COMPREHENSIVE METABOLIC PANEL (01/09/2021 10:44 [...] Resulting Agency Comment Lab Testing performed at: [facility] [address] [facility] ??[facility] [phone] Alf Khan DO LAB - CHEMISTRY LIZABETH WILEY [facility] ACCOUNT BILL [address] [place] [address] * (ABNORMAL) PROSTATE SPECIFIC ANTIGEN SCREEN (01/09/2021 10:44 AM CDT) Only the most recent of3 resultswithin the time period is included. PSA 4.5(H) 0.0 - 4.0 ng/mL [facility] ACCOUNT BILL Comment: Brenda ECLIA methodology. ? . According to the [place] U[employer] Association, Serum PSA should decrease and [...] Resulting Agency Comment Lab Testing performed at: [employer] ??[facility] [phone] Alf Khan DO LAB - CHEMISTRY LIZABETH [facility] ACCOUNT BILL [address] [place] [address] * (ABNORMAL) LIPID PROFILE (01/09/2021 10:44 AM [...] Resulting Agency Comment [facility]: [facility] [address] ??[facility] [phone] Alf Khan DO LAB - CHEMISTRY ORDEcho WILEY [facility] ACCOUNT [place]ILL [place] [address] * CYTOLOGY URINE (02/24/2018 2:57 PM CDT) [...] or syntax problems by a trained medical corps officer. For questions about the report, please contact [...] or syntax problems by a trained medical corps officer. For questions about the report, please contact [...] Culture to follow 02/22/2018 6:47 PM CDT [facility] RBC UA >100(A) 0-5, None Seen # /hpf 02/22/2018 6:47 PM CDT [facility] WBC UA 0-5 0-5, None Seen # /hpf 02/22/2018 6:47 PM CDT [facility] Bacteria UA None Seen None Seen 02/22/2018 6:47 PM CDT [facility] Squamous Epithelial Cells None Seen None Seen, 0-2, 3-5 /hpf 02/22/2018 6:47 PM CDT [facility] Mucus UA 4+ /LPF 02/22/2018 6:47 PM CDT [facility] Calcium Oxalate Crystals Few(A) None seen /HPF 02/22/2018 6:47 PM CDT [facility] Urine URINE SPECIMEN OBTAINED BY CLEAN CATCH PROCEDURE / Unknown Collection / Unknown 02/22/2018 6:37 PM CDT 02/22/2018 6:36 PM CDT Narrative [facility] - 02/22/2018 6:47 PM CDT Junior Gutierrez MD LAB - URINALYSIS ORD ERABLES [facility] [address] [place] [address] * (ABNORMAL) URINALYSIS REFLEX MICROSCOPIC REFLEX CULTURE (02/22/2018 6:37 PM CDT) Only the most recent of2 resultswithin the time period is included. Color UA Grossly Bloody(A) Straw, Yellow 02/22/2018 6:47 PM CDT [facility] Clarity UA Turbid(A) Clear 02/22/2018 6:47 PM CDT [facility] Glucose UA 1+(A) Negative 02/22/2018 6:47 PM CDT [facility] Bilirubin UA Negative Negative 02/22/2018 6:47 PM CDT [facility] Ketone UA Trace(A) Negative 02/22/2018 6:47 PM CDT [facility] Specific [facility] UA 1.040(H) 1.005 - 1.030 02/22/2018 6:47 PM CDT [facility] Blood UA 3+(A) Negative 02/22/2018 6:47 PM CDT [facility] pH UA 5.0 5.0 - 8.0 pH 02/22/2018 6:47 PM CDT [facility] Protein UA 2+(A) Negative 02/22/2018 6:47 PM CDT [facility] Urobilinogen UA Negative Negative mg/dL 02/22/2018 6:47 PM CDT [facility] Nitrite UA Positive(A) Negative 02/22/2018 6:47 PM CDT [facility] Leukocyte UA Trace(A) Negative 02/22/2018 6:47 PM CDT [facility] Urine Microscopy Urine microscopy to follow 02/22/2018 6:47 PM CDT [facility] Reflex Status Culture to follow 02/22/2018 6:47 PM CDT [facility] Urine URINE SPECIMEN OBTAINED BY CLEAN CATCH PROCEDURE / Unknown Collection / Unknown 02/22/2018 6:37 PM CDT 02/22/2018 6:36 PM CDT Narrative [facility] - 02/22/2018 6:47 PM CDT Ascorbic Acid can cause false negative urine strip tests for blood, glucose, nitrite, and bilirubin. Junior Gutierrez MD LAB - URINALYSIS ORD ERABLES Performing Organization Address [facility] Co de Phone Number [facility] [address] [place] [address] * CULTURE URINE (02/22/2018 6:37 PM CDT) Pathologist [facility] Culture Urine 10,000-50,000 CFU/mL urogenital jayleen CARLOS 02/23/2018 11:00 AM CDT [facility] Urine URINE SPECIMEN OBTAINED BY CLEAN CATCH PROCEDURE / Unknown Collection / Unknown 02/22/2018 6:37 PM CDT 02/22/2018 6:36 PM CDT Junior Gutierrez MD LAB - MICROBIOLOGY O RDERABLES [facility] [address] [place] [address], [facility] [phone] * LIPASE BLOOD (02/22/2018 6:36 PM CDT) Lipase 133 73 - 393 U/L 02/22/2018 7:16 PM CDT [facility] Blood BLOOD SPECIMEN / Unknown Venipuncture / Unknown 02/22/2018 6:36 PM CDT 02/22/2018 7:01 PM CDT Junior Gutierrez MD LAB - CHEMISTRY LIZABETH WILEY [facility] [address] [place] [address] * (ABNORMAL) LIPID PROFILE W TCHOL/HDL (04/08/2017 [...] [facility] ACC[facility] B[facility] Comment:LDL/HDL RATIO BLOOD ([facility]) 1.8 <5.0 Cholesterol/HDL Ratio 3.5 <4.5 [facility] ACCOUNT BILL Blood BLOOD SPECIMEN / Unknown 04/08/2017 10:55 AM CDT 04/08/2017 Narrative Resulting Agency Comment [facility] [address] ??[place] [phone] Alf Khan DO LAB - CHEMISTRY LIZABETH WILEY [facility] ACCOUNT BILL [address] [place] [address] * MICROALB/CREAT RATIO URINE RANDOM PANEL (04/08/2017 10:55 AM CDT) Creatinine Urine 150 mg/dL [facility] ACCOUNT BILL Microalbumin Urine 1.6 mg/dL [facility] ACCOUNT BILL Microalbumin/Crea tinine Ratio 11 <30 mg/g [facility] ACCOUNT BILL Urine URINE SPECIMEN OBTAINED BY CLEAN CATCH PROCEDURE / Unknown 04/08/2017 10:55 AM CDT 04/08/2017 Narrative Resulting Agency Comment [facility] [address] ??[facility] [phone] Alf Khan DO LAB - URINE CHEMISTR Y ORDERABLES Performing Organization Address City/[facility] Co de Phone Number [facility] ACCOUNT BILL [address] [place] [address] * (ABNORMAL) URINALYSIS MICROSCOPIC ONLY REFLEXED (04/08/2017 [...] CDT 04/08/2017 Narrative Resulting Agency Comment [facility] [address] [facility] ??[facility] [phone] Alf Khan DO LAB - URINALYSIS ORD ERABLES Performing Organization Address City/[facility] Co de Phone Number [facility] ACCOUNT BILL [address] [place] [address] * URINALYSIS AUTO - POINT OF CARE (07/23/2016 5:00 PM TOP EDGE BEVELER) Clarity UA POCT clear Color UA POCT yellow Leukocyte UA neg Negative Nitrite UA POCT neg Negative Urobilinogen UA 0.2 0.1 - 1.0 Protein UA POCT neg Negative pH UA 5.0 5.0 - 8.0 pH units Blood UA small Negtive Specific [facility] UA POCT 1.025 1.002 - 1.030 Ketone UA neg Negative Bilirubin UA POCT neg Negative Glucose UA neg Negative Urine URINE / Unknown 07/23/2016 5 :00 PM TOP EDGE BEVELER Alf Khan DO LAB - POINT OF CARE ORDERABLES * XR LUMBAR SPINE 4+ VW (08/17/2015 4:05 PM TOP EDGE BEVELER) Anatomical Region Laterality Modality Spine Radiographic Nataliya ging 08/17/2015 4:11 PM TOP EDGE BEVELER Impressions 08/17/2015 4:12 PM TOP EDGE BEVELER No acute osseous abnormality Degenerative changes Narrative 08/17/2015 4:12 PM TOP EDGE BEVELER Lumbar spine 5 views Indication: Low back [...] No acute findings or significant change. Alf Khna DO DIAGNOSTIC IMAGING O RDERABLES * NM [...] Case Report Surgical Pathology Report ? Case: [id number] ? Authorizing Provider: ??Astrid Rios, ?Collected: ? 04/15/2014 08:49 AM ? Ordering Location: ? [facility] ?Received: ?04/15/2014 09:16 AM ? Pathologist: ? Julian Boucher MD ? Specimen: ?Polyp Sigmoid, snare ? 04/16/2014 3:43 PM CDT [facility] Final Diagnosis 1. Sigmoid colon polyp: -- Tubular adenoma JW/na 04/16/2014 3:43 PM CDT [facility] Gross Description Received in formalin in [...] is seen. REGAN/inna 04/16/2014 3:43 PM CDT [facility] Pathology/Cytolo gy POLYP OF SIGMOID COLON / Unknown 04/15/2014 8:49 AM CDT 04/15/2014 9:16 AM CDT Comment:799.9 Astrid Rios DO LAB - PATHOLOGY/CYTO LOGY ORDERABLES [facility] [address] [place] [address] * ENDOSCOPY, COLON, SCREENING (04/15/2014 8:24 AM [...] Procedure Code(s): ? --- Professional --- ? 39299, Colonoscopy, flexible, proximal to splenic flexure; with removal ? of tumor(s), polyp(s), or other lesion(s) by snare technique ? --- Technical --- ? 36062, Colonoscopy, flexible, proximal to splenic flexure; with [...] (without mention of hemorrhage) CPT copyright 2013 [employer]. All rights reserved. The codes documented in this report are preliminary and upon mother's helper review may be revised to meet current compliance requirements. ___ Astrid Rios DO 04/15/2014 8:51 AM This report has been signed electronically. Number of Addenda: 0 Note Initiated On: 04/15/2014 8:24 AM [facility] 04/15/2014 8:24 AM CDT Astrid Umanaalexslime GI PROCEDURE ORDERAB LES [facility] [place] [id number] * US ABDOMEN LIMITED (04/08/2014 8:56 AM [...] PM CDT Narrative Resulting Agency Comment [facility] [address] ??[facility] [phone] Angelina Rust DO LAB - CHEMISTRY LIZABETH [...] PM CDT Narrative Resulting Agency Comment [facility] [address] ??[facility] [phone] Angelina Rust DO LAB - CHEMISTRY LIZABETH WILEY [facility] ACCOUNT BILL * PSA FREE + TOTAL PANEL (06/10/2012 9:14 AM CDT) Only the most recent of2 resultswithin the time period is included. PSA 1.7 0.0 - 4.0 ng/mL [facility] ACCOUNT BILL Comment: Brenda ECLIA methodology. ? . According to the [place] [employer], Serum PSA should decrease and [...] Narrative Resulting Agency Comment [facility] [place] [address] [facility] ??[place] [phone] Angelina Rust DO LAB - CHEMISTRY LIZABETH WILEY [facility] ACCOUNT BILL * BASIC METABOLIC PANEL (CALCIUM TOTAL) (06/03/2012 6:02 AM CDT) BUN 15 7.0 - 21.0 mg/dL [facility] Sodium 141 136 - 145 mmol/L [facility] Potassium 4.0 3.5 - 5.1 mmol/L [facility] Chloride 107 98.0 - 107.0 mmol/L [facility] CO2 28 22.0 - 30.0 mmol/L [facility] Anion Gap 6.0 [facility] Glucose 100 74 - 106 mg/dL [facility] Creatinine 0.67 0.5 - 1.3 mg/dL [facility] Calcium 8.7 8.5 - 10.1 mg/dL [facility] eGFR by MDRD 128 mL/min/1.73 m2 [facility] Blood specimen (specimen) BLOOD SPECIMEN / Unknown 06/03/2012 6:02 AM CDT 06/03/2012 6:12 AM CDT Toni Muñoz MD LAB - CHEMISTRY LIZABETH WILEY [facility] Organization Address City/State/ZIP Co de Phone Number [facility] [address] [place] [address] * EKG 12-LEAD (06/03/2012 4:47 AM CDT) Only the most recent of3 resultswithin the time period is included. Ventricular Rate 74 BPM [facility] Atrial Rate 74 BPM [facility] P-R Interval 172 ms [facility] QRS Duration ms 108 ms [facility] Q-T Interval ms 394 ms [facility] QTC Calculation (Bezet) 437 ms [facility] Calculated P Fleming 34 degrees [facility] Calculated R Fleming 35 degrees [facility] Calculated T Fleming 23 degrees [facility] Interpretation EKG Normal [...] ID ACUTE HEP PANEL [facility] Test Code 71523 [facility] Client Contact ALIYAHCHAPIS VIDAL See Note [facility] Comment: The laboratory testing on this patient was verbally requested or confirmed by the ordering physician or his or her authorized union contract representative after contact with an employee of [employer]. Federal regulations require that we maintain on file written authorization for all laboratory testing. ??Accordingly we are asking that the ordering physician or his or her authorized union contract representative sign a copy of this report and promptly return it to the client service and consulting manager. Signature: Fax number: [phone] Test Performed at: [facility] [address] ??[id number] BISI SCHWARZ DO,MPH 05/09/2011 2:50 PM CDT 05/10/2011 5:23 AM CDT Angelina Rust DO LAB - CHEMISTRY ORDE INEZ [facility] [address] [place] [address] * HEPATITIS SCREEN ACUTE W/REFLX HBSAG (POREF (05/09/2011 2:50 PM CDT) Only the most recent of2 resultswithin the time period is included. Hepatitis A Virus Antibody IgM NON-REACTI VE NON-REACT QUINN [facility] Comment: Test Performed at: [facility] [address] [facility] ??[phone] BISI SCHWARZ DO,MPH Hepatitis B Virus Surface Antigen NON-REACTI VE NON-REACT QUINN [facility] Hepatitis B Core Virus Antibody IgM NON-REACTI VE NON-REACT QUINN [facility] Hepatitis C Antibody NON-REACTI VE NON-REACT QUINN [facility] Signal to Cut-Off 0.12 <1.00 [facility] 05/09/2011 2:50 PM CDT 05/10/2011 5:23 AM CDT Angelina Rust DO LAB - CHEMISTRY LIZABETH WILEY [facility] Organization Address City/State/[facility] Co de Phone Number [facility] [address] [place] [address] * XR CHEST PA AND LATERAL (12/22/2010 [...] Bernabe Cazares MD - 04/06/2010 11:45 AM [facility] STRESS TEST PATIENT: LENNIE CROCKETT MR#: [id number] [id number] 1965 ROOM: REFERRING PHYSICIAN: ANGELINA RUST [...] echocardiographic images. BERNABE CAZARES MD SKN/PM #: [id number] CC: ANGELINA RUST DO STRESS TEST - DP Bernabe Cazares MD CARDIAC SERVICES ORD ERABLES * IRON + TIBC PANEL (03/31/2010 7:00 AM CDT) Iron 122 45 - 170 mcg/dL [facility] TIBC 354 250 - 425 mcg/dL [facility] % Saturation 34 20 - 50 % (calc) [facility] Comment: Test Performed at: [facility] [place] [address] [place], [place] ??[phone] BISI SCHWARZ DO,MPH 03/29/2010 5:4 6 AM CDT Angelina Josh Barrera [facility] - CHEMISTRY LIZABETH WILEY [facility] [address] [place] [address] * MRI SPINE CERVICAL NON CONTRAST (04/05/2009 [...] stenosis results. Jammie PEREZ ORDERABLES Care Teams Service And Repair Supervisor Relationship Specialty Start Date End Date Pcp, Manuel Pérez PCP - General 02/28/23
--- OUTSIDE RECORDS SUMMARY | 2024-09-06 23:57 | XMS_ITS | Encounter Summary ---
Author Organization [facility] Health Address [address] [place] [address] Care Team Providers Care Supervisor Laundry Name Role Phone Alf Khan DO Primary Care Provider Stephan rosa Reason for Visit * Reason Comments Refill Request Encounter Details Date Type Department Care Team (Late st Contact Info) Description 02/13/2022 Refill [facility] - Family Medicine [address] [place] [address] Alf Khan, DO Refill Request Social History [...] Sex Assigned at Male 08/31/2020 7:44 AM CURTAINS AND DRAPERIES SALESPERSON Gender Identity Male 08/31/2020 7:44 AM CURTAINS AND DRAPERIES SALESPERSON Sexual Orientation Straight 08/31/2020 7: 44 AM CURTAINS AND DRAPERIES SALESPERSON documented as of this encounter Functional Status [...] filedocumented in this encounter Care Teams Supervisor Laundry Relationship Specialty Start Date End Date Alf Khan DO PCP - General Family Medicine 09/03/13 02/27/23 documented as of this encounter
--- OUTSIDE RECORDS SUMMARY | 2024-09-06 23:57 | XMS_ITS | Encounter Summary ---
Author Organization [facility] Health Address [address] [facility] [place] [address] Care Team Providers Care Computer Engineering Technologist Name Role Phone Alf Khan DO Primary [...] Sex Assigned at Male 08/31/2020 7:44 AM GEAR MACHINIST Gender Identity Male 08/31/2020 7:44 AM GEAR MACHINIST Sexual Orientation Straight 08/31/2020 7: 44 AM GEAR MACHINIST documented as of this encounter Functional Status [...] on filedocumented in this encounter Care Teams Computer Engineering Technologist Relationship Specialty Start Date End Date Alf Khan DO PCP - General Family Medicine 09/03/13 02/27/23 documented as of this encounter
--- OUTSIDE RECORDS SUMMARY | 2024-09-06 23:57 | XMS_ITS | Encounter Summary ---
Author Organization [facility] Address [address] [facility] [place] [address] Care Team Providers Care Fisher Troll Line Name Role Phone Alf Khan DO Primary [...] Assigned at Male 08/31/2020 7:44 AM RELIABILITY TECHNOLOGIST Gender Identity Male 08/31/2020 7:44 AM RELIABILITY TECHNOLOGIST Sexual Orientation Straight 08/31/2020 7: 44 AM RELIABILITY TECHNOLOGIST COVID-19 Exposure Response Date Recorded In the last month, have you been in contact with someone who was confirmed or suspected to have Coronavirus / COVID-19? No / Unsure 07/13/2021 9:06 AM RELIABILITY TECHNOLOGIST documented as of this encounter Functional [...] on filedocumented in this encounter Care Teams Fisher Troll Line Relationship Specialty Start Date End Date Alf Khan DO PCP - General Family Medicine 09/03/13 02/27/23 documented as of this encounter
--- OUTSIDE RECORDS SUMMARY | 2024-09-06 23:57 | XMS_ITS | Encounter Summary ---
Author Organization [facility] Address [address] [facility] [address] [place] [address] Care Team Providers Care Forepart Rasper Name Role Phone Alf Khan DO Primary [...] Sex Assigned at Male 08/31/2020 7:44 AM APPLICATIONS SALES REPRESENTATIVE Gender Identity Male 08/31/2020 7:44 AM APPLICATIONS SALES REPRESENTATIVE Sexual Orientation Straight 08/31/2020 7: 44 AM APPLICATIONS SALES REPRESENTATIVE COVID-19 Exposure Response Date Recorded In the last month, have you been in contact with someone who was confirmed or suspected to have Coronavirus / COVID-19? No / Unsure 08/17/2020 2:54 PM APPLICATIONS SALES REPRESENTATIVE documented as of this encounter [...] on filedocumented in this encounter Care Teams Forepart Rasper Relationship Specialty Start Date End Date Alf Khan DO PCP - General Family Medicine 09/03/13 02/27/23 documented as of this encounter
--- OUTSIDE RECORDS SUMMARY | 2024-09-06 23:57 | XMS_ITS | Encounter Summary ---
Author Organization [facility] Address [address] [place] [address] Care Team Providers Care Medical Practice Assistant Name Role Phone Alf Khan DO Primary Care Provider Stephan rosa Reason for Visit * Reason Onset Date Comments Future Appointment 07/13/2021 Encounter Details Date Type Department Care Team (Late st Contact Info) Description 07/13/2021 Telephone [facility] - Family Medicine [address] [place] [address] Alf Khan, DO Future Appointment Social History Tobacco Use Types Packs/Day Years Used Date Smoking Tobacco: Every Day Cigarettes 1.5 25 Started: 12/07/1985; Last attempted to quit: 12/07/2010 Smokeless Tobacco: Never Alcohol Use Standard Drinks/Week Comments Yes 0 (1 standard drink = 0.6 oz pur e alcohol) social Sex and Gender Information Value Date Recorded Sex Assigned at Male 08/31/2020 7:44 AM CALCINE FURNACE LOADER Gender Identity Male 08/31/2020 7:44 AM CALCINE FURNACE LOADER Sexual Orientation Straight 08/31/2020 7: 44 AM CALCINE FURNACE LOADER COVID-19 Exposure Response Date Recorded In the last month, have you been in contact with someone who was confirmed or suspected to have Coronavirus / COVID-19? No / Unsure 07/13/2021 9:06 AM CALCINE FURNACE LOADER documented as of this encounter Functional Status [...] rang and then went to busy signal. INE FURNACE LOADER * Telephone Encounter - Jazmin Santana - 07/13/2021 9:10 AM CST Who is calling? self What is the reason for call? Patient would like to know if he can be seen by PCP today and patient needs a DR note for work Expected Response from the Clinic? ( ex. Call back, etc..) please advise. INE FURNACE LOADER documented in this encounter Plan of Treatment [...] filedocumented in this encounter Care Teams Medical Practice Assistant Relationship Specialty Start Date End Date Alf Khan DO PCP - General Family Medicine 09/03/13 02/27/23 documented as of this encounter
--- OUTSIDE RECORDS SUMMARY | 2024-09-06 23:57 | XMS_ITS | Encounter Summary ---
Author Organization [facility] Address [address] [place] [address] Care Team Providers Care Tar Distributor Operator Name Role Phone Pcp, Manuel Melgar Primary Care Provider Unav ailable Reason for Visit * Reason Onset Date Comments Scheduling 03/09/2024 Encounter Details Date Type Department Care Team (Late st Contact Info) Description 03/09/[address] [facility] - Family Medicine [address] [place] [address] Pcp, Manuel Melgar Scheduling Social History Tobacco [...] Sex Assigned at Male 08/31/2020 7:44 AM SALESPERSON BURIAL PLOTS Gender Identity Male 08/31/2020 7:44 AM SALESPERSON BURIAL PLOTS Sexual Orientation Straight 08/31/2020 7: 44 AM SALESPERSON BURIAL PLOTS documented as of this encounter Functional Status [...] on filedocumented in this encounter Care Teams Tar Distributor Operator Relationship Specialty Start Date End Date PcpManuel PCP - General 02/28/23 documented as of this encounter
--- OUTSIDE RECORDS SUMMARY | 2024-09-06 23:57 | XMS_ITS | Encounter Summary ---
Author Organization [facility] Address [address] [place] [address] Care Team Providers Care Rehabilitation Services Coordinator Name Role Phone Alf Khan DO [...] Sex Assigned at Male 08/31/2020 7:44 AM BIAS BINDING FOLDER Gender Identity Male 08/31/2020 7:44 AM BIAS BINDING FOLDER Sexual Orientation Straight 08/31/2020 7: 44 AM BIAS BINDING FOLDER COVID-19 Exposure Response Date Recorded In the last month, have you been in contact with someone who was confirmed or suspected to have Coronavirus / COVID-19? No / Unsure 08/25/2020 8:08 AM BIAS BINDING FOLDER documented as of this encounter Functional [...] on filedocumented in this encounter Care Teams Rehabilitation Services Coordinator Relationship Specialty Start Date End Date Alf Khan DO PCP - General Family Medicine 09/03/13 02/27/23 documented as of this encounter
--- OUTSIDE RECORDS SUMMARY | 2024-09-06 23:57 | XMS_ITS | Encounter Summary ---
Author Organization [facility] Address [address] [place] [address] Care Team Providers Care Stock Blender Name Role Phone Alf Khan DO Primary Care Provider Stephan rosa Reason for Visit * Reason Onset Date Comments Medication Problem 02/13/2022 Encounter Details Date Type Department Care Team (Late st Contact Info) Description 02/13/2022 Telephone [facility] Medical [facility] - Family Medicine [address] [place] [address] Alf Khan, DO Medication Problem Social History [...] Sex Assigned at Male 08/31/2020 7:44 AM AGILITY INSTRUCTOR Gender Identity Male 08/31/2020 7:44 AM AGILITY INSTRUCTOR Sexual Orientation Straight 08/31/2020 7: 44 AM AGILITY INSTRUCTOR documented as of this encounter Functional [...] Pt. Will try and get scripts at [facility] where they were originally sent. If there [...] down by pharmacist to the [facility] * Addendum Note - Juan Jose Smith - 02/14/2022 12:35 PM CDTAddended by: JUAN JOSE SMITH on: 02/14/2022 12:35 PM Modules accepted: Orders * Telephone Encounter - Deisi Duran Edmundo - 02/14/2022 12:13 PM CDT Pt wants script sent [facility] Trenton Crockett Requested Prescriptions Pending Prescriptions Disp [...] file. If not, please send scripts to [facility]. * Telephone Encounter - Alf Khan [...] up a week or 2 early to picker feeder medication - for pain medication. Pharmacy wanted [...] filedocumented in this encounter Care Teams Stock Blender Relationship Specialty Start Date End Date Alf Khan DO PCP - General Family Medicine 09/03/13 02/27/23 documented as of this encounter
--- OUTSIDE RECORDS SUMMARY | 2024-09-06 23:57 | XMS_ITS | Encounter Summary ---
Author Organization [facility] Address [address] [place] [address] Care Team Providers Care Head Start Assistant Teacher Name Role Phone Alf Khan DO Primary Care Provider Stephan rosa Reason for Visit * Reason Comments Refill Request Encounter Details Date Type Department Care Team (Late st Contact Info) Description 01/21/2023 Refill [facility] Medical [facility] - Family Medicine [address] [place] [address] Alf Khan, DO Refill Request Social History [...] Sex Assigned at Male 08/31/2020 7:44 AM CREAMERY WORKER Gender Identity Male 08/31/2020 7:44 AM CREAMERY WORKER Sexual Orientation Straight 08/31/2020 7: 44 AM CREAMERY WORKER documented as of this encounter Functional [...] has retired, pt given 1 rx per risk control officer to allow pt time to establish [...] on filedocumented in this encounter Care Teams Head Start Assistant Teacher Relationship Specialty Start Date End Date Alf Khan DO PCP - General Family Medicine 09/03/13 02/27/23 documented as of this encounter
--- OUTSIDE RECORDS SUMMARY | 2024-09-06 23:57 | XMS_ITS | Encounter Summary ---
Author Organization [facility] Address [address] [place] [address] Care Team Providers Care Track Dresser Name Role Phone Pcp, Tatum Pérez Primary [...] 03/15/2023 9:47 AM CDT Emergency ER at [address] [address] Perirectal abscess; Cellulitis and abscess [...] Sex Assigned at Male 08/31/2020 7:44 AM POLICE DETENTION ATTENDANT Gender Identity Male 08/31/2020 7:44 AM POLICE DETENTION ATTENDANT Sexual Orientation Straight 08/31/2020 7: 44 AM POLICE DETENTION ATTENDANT documented as of this encounter Last Filed [...] this encounter Discharge Instructions * Discharge Instructions* rAia Cerrato PA-C - 03/15/2023 9:26 AM CDT [...] HOURS NEEDED 8.5 g 01/23/2023 HYDROcodone-acetaminoph en ([place]) 5-325 MG tabletIndications:Chron ic pain syndrome Take 1 (one) tablet by mouth every 4 hours as needed for Pain Dx M50.30 120 tablet 02/03/2023 HYDROcodone-acetaminoph en ([place]) 7.5-325 MG tabletIndications:Chron ic pain syndrome Take 1 (one) tablet by mouth every 4 hours as needed for Pain Dx M50.30 120 tablet 01/07/2023 HYDROcodone-acetaminoph en ([place]) 7.5-325 MG tabletIndications:Chron ic pain syndrome Take [...] years ago. 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 [...] Right; INCISION AND DRAINAGE ABSCESS PERIRECTAL ??? [place] Tooth Extraction Current Facility-Administered Medications Medication Dose [...] 7 days 14 tablet 0 ??? HYDROcodone-acetaminophen ([place]) 5-325 MG tablet Take 1 (one) tablet by mouth every 4 hours asneeded for Pain Dx M50.30 120 tablet 0 ??? HYDROcodone-acetaminophen ([place]) 7.5-325 MG tablet Take 1 (one) tablet by mouth every 4 hours as needed for Pain Dx M50.30 120 tablet 0 ??? HYDROcodone-acetaminophen ([place]) 7.5-325 MG tablet Take 1 (one) tablet [...] Nondistended MSK: No gross deformities noted Skin: [place], warm, dry, no rash visualized. Neuro: A&O [...] an anorectal muscles. Referral given to Dr. Tejada, for surgical evaluation. Will prescribe antibiotic, discussed [...] in ED course. 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 ?? [...] new symptoms Last Reviewed Date: 2022 ?? 8718-3933 [employer]. All rights reserved. This information is not [...] RN) documented in this encounter Care Teams Track Dresser Relationship Specialty Start Date End Date Pcp, Tatum Pérez PCP - General 02/28/23 documented as of this encounter
--- OUTSIDE RECORDS SUMMARY | 2024-09-06 23:57 | XMS_ITS | Referral Summary ---
Author Organization [facility] Address [address] [place] [address] Care Team Providers Care Doctor Assistant Name Role Phone Pcp, Manuel Pérez Primary Care Provider Unav ailable Source Comments [facility],non-owned Affiliates and Associated Physician Practices is amultiple site organization consisting of ambulatory clinics and hospital sitesin [place], [place], [place] and [place]. This disclosure is being madepursuant to the Care Everywhere program and may not contain all information available regarding this patient. Last updated 18.[facility] Allergies Active Allergy Reactions Criticality Noted Date Comments Perry Inhibitors Cough Low 09/30/2009 Azithromycin Itching 02/18/2019 Medications * Be aware that medications may not be up to date on this document. Alwaysverify current medications with the patient. Medication Sig Dispensed Refills Start Date End Date Status HYDROcodone-acetamino phen ([place]) 5-325 MG tabletIndications:Chr onic pain syndrome Take 1 (one) tablet by mouth every 4 hours as needed for Pain Dx M50.30 120 tablet 02/03/2023 Active HYDROcodone-acetamino phen ([place]) 7.5-325 MG tabletIndications:Chr onic pain syndrome Take 1 (one) tablet by mouth every 4 hours as needed for Pain Dx M50.30 120 tablet 01/07/2023 Active HYDROcodone-acetamino phen ([place]) 7.5-325 MG tabletIndications:Chr onic pain syndrome Take [...] Sex Assigned at Male 08/31/2020 7:44 AM BEAD STRINGER Gender Identity Male 08/31/2020 7:44 AM BEAD STRINGER Sexual Orientation Straight 08/31/2020 7: 44 AM BEAD STRINGER Last Filed Vital Signs Vital Sign Reading [...] CONFIRMATION (01/09/2021 10:45 AM CDT) Opiates Negative [id number] [facility] ACCOUNT BILL Comment: Opiate test includes Codeine and Morphine only. FASTING 01/09/2021 10:4 5 AM CDT 01/09/2021 Narrative Resulting Agency Comment Lab Testing performed at: [facility] [address] ??[facility] [phone] Alf Khan DO LAB - URINE CHEMISTR Y ORDERABLES [facility] ACCOUNT BILL [address] [place] [address] * (ABNORMAL) COMPREHENSIVE METABOLIC PANEL (01/09/2021 10:44 [...] Agency Comment Lab Testing performed at: [facility] [address] ??[facility]ly [facility] [phone] Alf Khan DO LAB - CHEMISTRY LIZABETH WILEY Performing Organization Address [facility] Co de Phone Number [facility] ACCOUNT BILL [address] [place] [address] * (ABNORMAL) LIPID PROFILE (01/09/2021 10:44 AM [...] Agency Comment Lab Testing performed at: [facility] [address] ??[facility]ly [facility] [phone] Alf Khan DO LAB - CHEMISTRY LIZABETH WILEY Performing Organization Address City/[facility] Co de Phone Number [facility] ACCOUNT BILL [address] [place] [address] * ENDOSCOPY, COLON, SCREENING (04/15/2014 8:24 AM [...] Procedure Code(s): ? --- Professional --- ? 38175, Colonoscopy, flexible, proximal to splenic flexure; with removal ? of tumor(s), polyp(s), or other lesion(s) by snare technique ? --- Technical --- ? 75402, Colonoscopy, flexible, proximal to splenic flexure; with [...] (without mention of hemorrhage) CPT copyright 2013 [employer]. All rights reserved. The codes documented in this report are preliminary and upon conference director review may be revised to meet current compliance requirements. ___ Astrid Rios DO 04/15/2014 8:51 AM This report has been signed electronically. Number of Addenda: 0 Note Initiated On: 04/15/2014 8:24 AM [facility] 04/15/2014 8:24 AM CDT Astrid Rios DO GI PROCEDURE ORDERAB LES Performing Organization Address City/[facility]/ZIP Co de Phone Number [facility] [place] [address] * HEPATITIS SCREEN ACUTE W/REFLX HBSAG (POREF (05/09/2011 2:50 PM CDT) Hepatitis A Virus Antibody IgM NON-REACTI VE NON-REACT [facility] Comment: Test Performed at: [facility] [address] ??[id number] BISI SCHWARZ DO,MPH Hepatitis B Virus Surface Antigen NON-REACTI VE NON-REACT [facility] Hepatitis B Core Virus Antibody IgM NON-REACTI VE NON-REACT [facility] Hepatitis C Antibody NON-REACTI VE NON-REACT [facility] Signal to Cut-Off 0.12 <1.00 [facility] 05/09/2011 2:50 PM CDT 05/10/2011 5:23 AM CDT Jose Rust DO LAB - CHEMISTRY [place]ETH [place] [facility] [address] [place] [address] from Last 3 Months or Most Recently Relevant to Health Maintenance Care Teams Doctor Assistant Relationship Specialty Start Date End Date PcpManuel PCP - General 02/28/23
--- OUTSIDE RECORDS SUMMARY | 2024-09-06 23:57 | XMS_ITS | Encounter Summary ---
Author Organization [facility] Address [address] [place] [address] Care Team Providers Care Customer Service Voice Name Role Phone Alf Khan DO Primary Care Provider Stephan rosa Reason for Visit * Reason Comments Pain Managment pt follow up to ongo ing back pain and refills Results discuss lab results Medication Check pharmacy confirmed w ith pt Encounter Details Date Type Department Care Team (Latest Contact Info) Description 02/14/2021 3:15 PM CDT Office Visit [facility] - Family Medicine [address] [place] [address] Alf Khan DO Elevated PSA (Primary Dx); [...] Assigned at Male 08/31/2020 7:44 AM PATTERNMAKER PLASTER Gender Identity Male 08/31/2020 7:44 AM PATTERNMAKER PLASTER Sexual Orientation Straight 08/31/2020 7: 44 AM PATTERNMAKER PLASTER documented as of this encounter Last Filed [...] 3:29 PM CDT Office Visit, Established [place], [address] HISTORY: CC Trenton Crockett is a 55 [...] Counseled the patient on smoking cessation, Chantix, gtry-vex-xmrnnxp nicotine replacement systems patches and gums. Told them the risks of smoking include lung cancer, bladder cancer, COPD, mi and stroke. They have to be involved in the smokingcessation program or it will not succeed. In other words I cannot make someone quit smoking they have to want to quit smoking. I can give you Chantix and advice on the baad-qif-asmzcxg nicotine systems and I would suggest to [...] 11 ) Wt 118.8 kg (262 lb) DjA462% BMI 36.54 kg/m?? General appearance - WM [...] hypofunction documented in this encounter Care Teams Customer Service Voice Relationship Specialty Start Date End Date Alf Khan DO PCP - General Family Medicine 09/03/13 02/27/23 documented as of this encounter
--- OUTSIDE RECORDS SUMMARY | 2024-09-06 23:57 | XMS_ITS | Encounter Summary ---
Author Organization [facility] Address [address] [place] [address] Care Team Providers Care Lithograph Press Operator Name Role Phone Alf Khan DO Primary Care Provider Stephan rosa Encounter Details Date Type Department Care Team (Latest Contact Info) Description 07/13/2021 2:00 PM NEEDLEMAKER - 07/13/2021 11:59 PM NEEDLEMAKER Hospital Encounter [facility] [address] [place] [address] Izzy Cruz, APPRENTICE-[facility] [address] [place] [address] Discharge Disposition: Home or Self Care Social History Tobacco Use Types Packs/Day Years Used Date Smoking Tobacco: Every Day Cigarettes 1.5 25 Started: 12/07/1985; Last attempted to quit: 12/07/2010 Smokeless Tobacco: Never Alcohol Use Standard Drinks/Week Comments Yes 0 (1 standard drink = 0.6 oz pur e alcohol) social Sex and Gender Information Value Date Recorded Sex Assigned at Male 08/31/2020 7:44 AM NEEDLEMAKER Gender Identity Male 08/31/2020 7:44 AM NEEDLEMAKER Sexual Orientation Straight 08/31/2020 7: 44 AM NEEDLEMAKER COVID-19 Exposure Response Date Recorded In the last month, have you been in contact with someone who was confirmed or suspected to have Coronavirus / COVID-19? No / Unsure 07/13/2021 9:06 AM NEEDLEMAKER documented as of this encounter Last Filed Vital Signs Vital Sign Reading Time Taken Comments Blood Pressure 165/88 07/13/2021 2:43 PM NEEDLEMAKER Pulse 85 07/13/2021 2:43 PM NEEDLEMAKER Temperature 36.6 ??C (97.9 ??F) 07/13/2021 2:43 PM CS T Respiratory Rate 18 07/13/2021 2:43 PM NEEDLEMAKER Oxygen Saturation 98% 07/13/2021 2:43 PM NEEDLEMAKER Inhaled Oxygen Concentration - - Weight 117 kg (258 lb) 07/13/2021 2:43 PM NEEDLEMAKER Height 180.3 cm (5' 11 ) 07/13/2021 2:43 PM NEEDLEMAKER Body Mass Index 35.98 07/13/2021 2:43 PM NEEDLEMAKER documented in this encounter Functional Status Functional [...] Discharge Instructions * Patient Instructions* Izzy Rajan, APPRENTICE-PATROL COMMANDER - 07/13/2021 3:11 PM NEEDLEMAKER Please follow up with Alf Khan DO for further evaluation and pain management of post-traumatic head injury. Patient Education Head Injury WOOL SCOURER: A head injury can include your scalp, [...] ask them during your visits. ?? Copyright [employer] 2020 Information is for End User's use only and may not be sold, redistributed or otherwise used for commercial purposes. All illustrations and images included in CareNotes?? are the copyrighted property of [employer]. or [employer] The above information is an educational psychologist only. It is not intended as medical advice for individual conditions or treatments. Talk to your doctor, nurse or pharmacist before following any medical regimen to see if it is safe and effective for you. LEMAKER documented in this encounter Medications at Time of Discharge Medication Sig Dispensed Refills Start Date End Date albuterol HFA (PROVENTIL;VENTOLIN;WA OAIR) 108 (90 Base) MCG/ACT inhaler Inhale [...] this encounter Progress Notes * Izzy Rajan, APPRENTICE-PATROL COMMANDER - 07/13/2021 2:57 PM CST Images from the original note were not included. [facility] History of Present Illness Patient Identification Trenton [...] Right; INCISION AND DRAINAGE ABSCESS PERIRECTAL ??? [place] Tooth Extraction Family History Problem Relation Name [...] with the plan. Patient discharged to Home. LEMAKER documented in this encounter Miscellaneous Notes * Addendum Note - Judith Moran CCS - 07/13/2021 11:59 PM CSTEncounter addended by: Judtih Moran CCS on: 07/16/2021 10:43 PM Actions taken: Visit diagnoses modified, Charge Capture section accepted LEMAKER documented in this encounter Plan of Treatment Not on file documented as of this encounter Goals Goal Patient Goal Type Associated Problems Recent Progress Patient-Stated? Author Blood Pressure < 140/90 Blood Pressure 172/93(2022 8:59 AM CDT) No Zacahry Moreno Quit smoking / using tobacco Lifestyle No Puja Raymundo documented as of this encounter Visit Diagnoses Diagnosis Injury of head, subsequent encounter- Primary Striking against or struck by other objects, initial encounter documented in this encounter Care Teams Lithograph Press Operator Relationship Specialty Start Date End Date Alf Khan DO PCP - General Family Medicine 09/03/13 02/27/23 documented as of this encounter
--- OUTSIDE RECORDS SUMMARY | 2024-09-06 23:57 | XMS_ITS | Clinical Summary ---
Author Organization [facility] Address [address] [place] [address] Care Team Providers Care Jig Bore Operator Name Role Phone Pcp, Manuel Pérez Primary Care Provider Unav ailable Source Comments [facility],non-owned Affiliates and Associated Physician Practices is amultiple site organization consisting of ambulatory clinics and hospital sitesin [place], [place], [place] and [place]. This disclosure is being madepursuant to the Care Everywhere program and may not contain all information available regarding this patient. Last updated 18.[facility] Allergies Active Allergy Reactions Criticality Noted Date Comments Perry Inhibitors Cough Low 09/30/2009 Azithromycin Itching 02/18/2019 Medications * Be aware that medications may not be up to date on this document. Alwaysverify current medications with the patient. Medication Sig Dispensed Refills Start Date End Date Status HYDROcodone-acetamino phen ([place]) 5-325 MG tabletIndications:Chr onic pain syndrome Take 1 (one) tablet by mouth every 4 hours as needed for Pain Dx M50.30 120 tablet 02/03/2023 Active HYDROcodone-acetamino phen ([place]) 7.5-325 MG tabletIndications:Chr onic pain syndrome Take 1 (one) tablet by mouth every 4 hours as needed for Pain Dx M50.30 120 tablet 01/07/2023 Active HYDROcodone-acetamino phen ([place]) 7.5-325 MG tabletIndications:Chr onic pain syndrome Take [...] Sex Assigned at Male 08/31/2020 7:44 AM AVIATION SAFETY INSPECTOR Gender Identity Male 08/31/2020 7:44 AM AVIATION SAFETY INSPECTOR Sexual Orientation Straight 08/31/2020 7: 44 AM AVIATION SAFETY INSPECTOR Last Filed Vital Signs Vital Sign Reading [...] CONFIRMATION (01/09/2021 10:45 AM CDT) Opiates Negative [id number] [facility] ACCOUNT BILL Comment: Opiate test includes Codeine and Morphine only. FASTING 01/09/2021 10:4 5 AM CDT 01/09/2021 Narrative Resulting Agency Comment Lab Testing performed at: [facility] [address] ??[place] [id number] Alf Khan DO LAB - URINE CHEMISTR Y ORDERABLES [facility] ACCOUNT BILL [address] [place] [address] * (ABNORMAL) COMPREHENSIVE METABOLIC PANEL (01/09/2021 10:44 [...] Resulting Agency Comment Lab Testing performed at: [place] [id number] [facility] ??[facility] [id number] Alf Susanne Khan DO LAB - CHEMISTRY ORDEcho WILEY Performing Organization Address City/[facility]/ZIP Co de Phone Number [facility] ACCOUNT BILL [address] [place] [address] * (ABNORMAL) LIPID PROFILE (01/09/2021 10:44 AM [...] Resulting Agency Comment Lab Testing performed at: [address] ??[facility] [id number] Alf Susanne Bill DO LAB - CHEMISTRY LIZABETH WILEY Performing Organization Address City/[facility] Co de Phone Number [facility] ACCOUNT BILL [address] [place] [address] * ENDOSCOPY, COLON, SCREENING (04/15/2014 8:24 AM [...] Procedure Code(s): ? --- Professional --- ? 09502, Colonoscopy, flexible, proximal to splenic flexure; with removal ? of tumor(s), polyp(s), or other lesion(s) by snare technique ? --- Technical --- ? 73827, Colonoscopy, flexible, proximal to splenic flexure; with [...] (without mention of hemorrhage) CPT copyright 2013 [employer]. All rights reserved. The codes documented in this report are preliminary and upon forest officer review may be revised to meet current compliance requirements. ___ Astrid Rios DO 04/15/2014 8:51 AM This report has been signed electronically. Number of Addenda: 0 Note Initiated On: 04/15/2014 8:24 AM [facility] ENDOSCOPY 04/15/2014 8:24 AM CDT Astrid Rios DO GI PROCEDURE ORDERAB LES Performing Organization Address City/[facility] Co de Phone Number [facility] [place] [address] * HEPATITIS SCREEN ACUTE W/REFLX HBSAG (POREF (05/09/2011 2:50 PM CDT) Hepatitis A Virus Antibody IgM NON-REACTI VE NON-REACT [facility] Comment: Test Performed at: [facility] [address] [place] [address] ??[id number] BISI SCHWARZ DO,MPH Hepatitis B Virus Surface Antigen NON-REACTI VE NON-REACT [facility] Hepatitis B Core Virus Antibody IgM NON-REACTI VE NON-REACT [facility] Hepatitis C Antibody NON-REACTI VE NON-REACT [facility] Signal to Cut-Off 0.12 <1.00 [facility] 05/09/2011 2:50 PM CDT 05/10/2011 5:23 AM CDT Jose Rust DO LAB - CHEMISTRY LIZABETH WILEY Performing Organization Address City/[facility] Co de Phone Number [facility] [address] [place] [address] from Last 3 Months or Most Recently Relevant to Health Maintenance Care Teams Jig Bore Operator Relationship Specialty Start Date End Date Pcp, Manuel Pérez PCP - General 02/28/23
--- OUTSIDE RECORDS SUMMARY | 2024-09-06 23:57 | XMS_ITS | Encounter Summary ---
Author Organization [facility] Address [address] [place] [address] Care Team Providers Care Mobile Equipment Operator Name Role Phone Zaira Ramires DO Primary Care Provider Stephan rosa Reason for Visit * Reason Comments Pain Managment pt follow up to ongo ing back pain with refills Medication Check pharmacy confirmed w ith pt Hospital Follow-up Encounter Details Date Type Department Care Team (Latest Contact Info) Description 07/27/2021 3:30 PM TUBE TEST TECHNICIAN Office Visit [facility] - Family Medicine [address] [place] [address] Zaira Ramires DO Chronic pain syndrome (Primary [...] Assigned at Male 08/31/2020 7:44 AM TUBE TEST TECHNICIAN Gender Identity Male 08/31/2020 7:44 AM TUBE TEST TECHNICIAN Sexual Orientation Straight 08/31/2020 7: 44 AM TUBE TEST TECHNICIAN COVID-19 Exposure Response Date Recorded In the last month, have you been in contact with someone who was confirmed or suspected to have Coronavirus / COVID-19? No / Unsure 07/13/2021 9:06 AM TUBE TEST TECHNICIAN documented as of this encounter Last Filed Vital Signs Vital Sign Reading Time Taken Comments Blood Pressure 134/84 07/27/2021 3:15 PM TUBE TEST TECHNICIAN Pulse 83 07/27/2021 3:15 PM TUBE TEST TECHNICIAN Temperature 36.6 ??C (97.9 ??F) 07/27/2021 3:15 PM CS T Respiratory Rate - - Oxygen Saturation 97% 07/27/2021 3:15 PM TUBE TEST TECHNICIAN Inhaled Oxygen Concentration - - Weight 111.1 kg (245 lb) 07/27/2021 3:15 PM TUBE TEST TECHNICIAN Height 180.3 cm (5' 11 ) 07/27/2021 3:15 PM TUBE TEST TECHNICIAN Body Mass Index 34.17 07/27/2021 3:15 PM TUBE TEST TECHNICIAN documented in this encounter Functional Status [...] 3:25 PM CST Office Visit, Established Patient, [id number] HISTORY: SYDNEE Trenton Crockett is a 55 [...] Counseled the patient on smoking cessation, Chantix, iett-diu-cpchtxm nicotine replacement systems patches and gums. Told them the risks of smoking include lung cancer, bladder cancer, COPD, mi and stroke. They have to be involved in the smokingcessation program or it will not succeed. In other words I cannot make someone quit smoking they have to want to quit smoking. I can give you Chantix and advice on the dpvp-ykl-sbsjjrp nicotine systems and I would suggest to [...] Wheezing or Cough 8.5 g 2 ??? jhjqxrdkpu-xzfvenicbfchh-wphucjhs ([place]) 50-300-40 MG capsule Take 1 (one) [...] 11 ) Wt 111.1 kg (245 lb) YnR668% BMI 34.17 kg/m?? General appearance - WM, [...] Wheezing or Cough 8.5 g 2 ??? xboczgxfoj-kruuuzzvwzerw-kjkjfvxv ([place]) 50-300-40 MG capsule Take 1 (one) [...] to call with any concerns or problems. TEST TECHNICIAN documented in this encounter Miscellaneous Notes * Addendum Note - Zaira Ramires DO - 07/27/2021 4:15 PM CSTAddended by: ZAIRA RAMIRES on: 07/27/2021 04:15 PM Modules accepted: Orders TEST TECHNICIAN documented in this encounter Plan of [...] disc documented in this encounter Care Teams Mobile Equipment Operator Relationship Specialty Start Date End Date Zaira Ramires DO PCP - General Family Medicine 09/03/13 02/27/23 documented as of this encounter
--- OUTSIDE RECORDS SUMMARY | 2024-09-06 23:57 | XMS_ITS | Encounter Summary ---
Author Organization [facility] Health Address [address] [place] [address] Care Team Providers Care Tube Machine Operator Helper Name Role Phone Alf Khan DO Primary Care Provider Stephan rosa Reason for Visit * Reason Onset Date Comments Medication Problem 10/26/2021 Encounter Details Date Type Department Care Team (Late st Contact Info) Description 10/26/2021 Telephone [facility] - Family Medicine [address] [place] [address] Alf Khan, DO Medication Problem Social History [...] Sex Assigned at Male 08/31/2020 7:44 AM SILK SOAKER Gender Identity Male 08/31/2020 7:44 AM SILK SOAKER Sexual Orientation Straight 08/31/2020 7: 44 AM SILK SOAKER documented as of this encounter Functional Status [...] tablets on 10/26/21 - just a fyi SOAKER documented in this encounter Plan of Treatment Not on file documented as of this encounter Goals Goal Patient Goal Type Associated Problems Recent Progress Patient-Stated? Author Blood Pressure < 140/90 Blood Pressure 172/93(2022 8:59 AM CDT) No Zachary Moreno Quit smoking / using tobacco Lifestyle No Puja Raymundo documented as of this encounter Visit Diagnoses Not on filedocumented in this encounter Care Teams Tube Machine Operator Helper Relationship Specialty Start Date End Date Alf Khan DO PCP - General Family Medicine 09/03/13 02/27/23 documented as of this encounter
--- OUTSIDE RECORDS SUMMARY | 2024-09-06 23:57 | XMS_ITS | Encounter Summary ---
Author Organization [facility] Address [address] [place] [address] Care Team Providers Care Burr Sander Name Role Phone Alf Khan DO Primary Care Provider Stephan rosa Reason for Visit * Reason Onset Date Comments MEDICATION REFILL 2020 Encounter Details Date Type Department Care Team (Late st Contact Info) Description 11/22/2020 Refill [facility] - Family Medicine [address] [place] [address] Alf Khan, DO MEDICATION REFILL Social History Tobacco Use Types Packs/Day Years Used Date Smoking Tobacco: Every Day Cigarettes 1.5 25 Started: 12/07/1985; Last attempted to quit: 12/07/2010 Smokeless Tobacco: Never Alcohol Use Standard Drinks/Week Comments Yes 0 (1 standard drink = 0.6 oz pur e alcohol) social Sex and Gender Information Value Date Recorded Sex Assigned at Male 08/31/2020 7:44 AM WASTE 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 Gender Identity Male 08/31/2020 7:44 AM WASTE 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 Sexual Orientation Straight 08/31/2020 7: 44 AM WASTE 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 COVID-19 Exposure Response Date Recorded In the last month, have you been in contact with someone who was confirmed or suspected to have Coronavirus / COVID-19? No / Unsure 10/31/2020 12:31 PM WASTE 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 documented as of this encounter [...] Alina Vidal - 11/22/2020 4:18 PM CDT [facility] the [place] prescriptions was sent to can't fill because their system has been down since 9 am(I spoke with the pharmacistMy to verify) Pt would like RX moved to another [facility]. I spoke with Pb Pharmacist at the [facility] in [facility]), their system is up and they have [...] on filedocumented in this encounter Care Teams Burr Sander Relationship Specialty Start Date End Date Alf Khan DO PCP - General Family Medicine 09/03/13 02/27/23 documented as of this encounter
--- OUTSIDE RECORDS SUMMARY | 2024-09-06 23:57 | XMS_ITS | Encounter Summary ---
Author Organization [facility] Address [address] [place] [address] Care Team Providers Care Resource Engineer Name Role Phone Alf Khan DO Primary Care Provider Stephan rosa Reason for Visit * Reason Comments Pain Managment Pt follow up to ongo ing back pain and med refill DRUG SCREEN Yearly screen Encounter Details Date Type Department Care Team (Latest Contact Info) Description 09/19/2022 1:30 PM MENTAL HEALTH AIDE Office Visit [facility] - Family Medicine [address] [place] [address] Alf Khan DO Chronic pain syndrome (Primary [...] Sex Assigned at Male 08/31/2020 7:44 AM MENTAL HEALTH AIDE Gender Identity Male 08/31/2020 7:44 AM MENTAL HEALTH AIDE Sexual Orientation Straight 08/31/2020 7: 44 AM MENTAL HEALTH AIDE documented as of this encounter Last Filed Vital Signs Vital Sign Reading Time Taken Comments Blood Pressure 158/94 09/19/2022 1:45 PM MENTAL HEALTH AIDE Pulse 74 09/19/2022 1:24 PM MENTAL HEALTH AIDE Temperature 36.5 ??C (97.7 ??F) 09/19/2022 1:24 PM CS T Respiratory Rate - - Oxygen Saturation 97% 09/19/2022 1:24 PM MENTAL HEALTH AIDE Inhaled Oxygen Concentration - - Weight 117.5 kg (259 lb) 09/19/2022 1:24 PM MENTAL HEALTH AIDE Height 180.3 cm (5' 11 ) 09/19/2022 1:24 PM MENTAL HEALTH AIDE Body Mass Index 36.12 09/19/2022 1:24 PM MENTAL HEALTH AIDE documented in this encounter Functional Status Functional [...] 1:39 PM CST Office Visit, Established Patient, [id number] HISTORY: SYDNEE Trenton Crockett is a 56 [...] Counseled the patient on smoking cessation, Chantix, gcvo-jgy-wvtjrkg nicotine replacement systems patches and gums. Told them the risks of smoking include lung cancer, bladder cancer, COPD, mi and stroke. They have to be involved in the smoking cessation program or it will not succeed. In other words I cannot make someone quit smoking they have to want to quit smoking. I can give you Chantix and advice on the yumo-yoh-notaeyx nicotine systems and I would suggest to [...] HOURS NEEDED 18 g 3 ??? HYDROcodone-acetaminophen ([place]) 5-325 MG tablet Take 1 (one) tablet by mouth every 4 hours asneeded for Pain Dx M50.30 120 tablet 0 ??? HYDROcodone-acetaminophen ([place]) 7.5-325 MG tablet Take 1 (one) tablet by mouth every 4 hours as needed for Pain Dx M50.30 120 tablet 0 ??? HYDROcodone-acetaminophen ([place]) 7.5-325 MG tablet Take 1 (one) tablet [...] 11 ) Wt 117.5 kg (259 lb) QwE077% BMI 36.12 kg/m?? General appearance - WM, wearing mask, no distress Neck- Supple and carotids have no bruits Chest - CTA Heart - normal rate, regular rhythm, normal S1, S2, no m/r/c/g Ext-no pretibial or pedal edema Skin-laceration on skull is healed completely Depression: PHQ-2:PHQ2 TOTAL SCORE: 0 PHQ-9: ASSESSMENT: ICD-10-CM 1. Chronic pain syndrome G89.4 HYDROcodone-acetaminophen ([place]) 5-325 MG tablet HYDROcodone-acetaminophen ([place]) 7.5-325 MG tablet HYDROcodone-acetaminophen ([place]) 7.5-325 MG tablet 2. Impacted cerumen of left ear H61.22 NH REMOVE CERUMEN IMPACTED W INSTRUMENT UNI 3. Primary hypertension I10 4. Smoker F17.200 5. Mixed hyperlipidemia E78.2 6. Degeneration of lumbar or lumbosacral intervertebral disc M51.37 7. Degeneration of cervical intervertebral disc M50.30 PLAN: Orders Placed This Encounter ??? NH REMOVE CERUMEN IMPACTED W INSTRUMENT UNI ??? HYDROcodone-acetaminophen ([place]) 5-325 MG tablet Sig: Take 1 (one) tablet by mouth every 4 hours as needed for Pain Dx M50.30 Dispense: 120 tablet Refill: 0 ??? HYDROcodone-acetaminophen ([place]) 7.5-325 MG tablet Sig: Take 1 (one) tablet by mouth every 4 hours as needed for Pain Dx M50.30 Dispense: 120 tablet Refill: 0 ??? HYDROcodone-acetaminophen ([place]) 7.5-325 MG tablet Sig: Take 1 (one) [...] During This Encounter Medication Reason ??? HYDROcodone-acetaminophen ([place]) 5-325 MG tablet No Pharm No AVS ??? HYDROcodone-acetaminophen ([place]) 7.5-325 MG tablet No Pharm No AVS ??? HYDROcodone-acetaminophen ([place]) 7.5-325 MG tablet No Pharm No AVS Current Outpatient Medications Medication Sig Dispense Refill ??? albuterol HFA (Proventil; Ventolin; Proair) 108 (90 Base) MCG/ACT inhaler INHALE 2 PUFFS BY MOUTH EVERY 4 HOURS NEEDED 18 g 3 ??? [START ON 11/09/2022] HYDROcodone-acetaminophen ([place]) 5-325 MG tablet Take 1 (one) tablet by mouth every 4 hours as needed for Pain Dx M50.30 120 tablet 0 ??? [START ON 10/16/2022] HYDROcodone-acetaminophen ([place]) 7.5-325 MG tablet Take 1 (one) tablet bymouth every 4 hours as needed for Pain Dx M50.30 120 tablet 0 ??? HYDROcodone-acetaminophen ([place]) 7.5-325 MG tablet Take 1 (one) tablet [...] to call with any concerns or problems. AL HEALTH AIDE documented in this encounter Plan [...] asthma documented in this encounter Care Teams Resource Engineer Relationship Specialty Start Date End Date Alf Khan DO PCP - General Family Medicine 09/03/13 02/27/23 documented as of this encounter
--- OUTSIDE RECORDS SUMMARY | 2024-09-06 23:57 | XMS_ITS | Encounter Summary ---
Author Organization [facility] Health Address [address] [place] [address] Care Team Providers Care Workgroup Leader Name Role Phone Alf Khan DO Primary Care Provider Stephan rosa Reason for Visit * Reason Onset Date Comments Medication Issue 11/10/2021 Encounter Details Date Type Department Care Team (Late st Contact Info) Description 11/10/2021 Telephone [facility] - Family Medicine [address] [place] [address] Alf Khan, DO Medication Issue Social History [...] Assigned at Male 08/31/2020 7:44 AM BUILDING RIGGER Gender Identity Male 08/31/2020 7:44 AM BUILDING RIGGER Sexual Orientation Straight 08/31/2020 7: 44 AM BUILDING RIGGER documented as of this encounter Functional Status [...] apt for 01/18/22 * Telephone Encounter - lAf Khan DO - 11/13/2021 3:11 PM CDT [...] on filedocumented in this encounter Care Teams Workgroup Leader Relationship Specialty Start Date End Date Alf Khan DO PCP - General Family Medicine 09/03/13 02/27/23 documented as of this encounter
--- OUTSIDE RECORDS SUMMARY | 2024-09-06 23:58 | XMS_ITS | Encounter Summary ---
Author Organization [facility] Address [address] [address] Care Team Providers Care Traffic And Transport Planner Name Role Phone Alf Khan DO Primary Care Provider Stephan rosa Reason for Visit * Reason Onset Date Comments ER UC Follow-up 02/24/2018 Encounter Details Date Type Department Care Team (Late st Contact Info) Description 02/24/2018 Patient Outreach [facility] - Care Coordination [address] [place] [address] Rupesh Negrete [address] [address] ER UC Follow-up Social History Tobacco Use Types Packs/Day Years Used Date Smoking Tobacco: Every Day Cigarettes 1.5 25 Started: 12/07/1985; Last attempted to quit: 12/07/2010 Smokeless Tobacco: Never Alcohol Use Standard Drinks/Week Comments Yes 0 (1 standard drink = 0.6 oz pur e alcohol) social Sex and Gender Information Value Date Recorded Sex Assigned at Male 08/31/2020 7:44 AM MANAGER BEAUTY Gender Identity Male 08/31/2020 7:44 AM MANAGER BEAUTY Sexual Orientation Straight 08/31/2020 7: 44 AM MANAGER BEAUTY documented as of this encounter Functional Status [...] filedocumented in this encounter Care Teams Traffic And Transport Planner Relationship Specialty Start Date End Date Alf Khan DO PCP - General Family Medicine 09/03/13 02/27/23 documented as of this encounter
--- OUTSIDE RECORDS SUMMARY | 2024-09-06 23:58 | XMS_ITS | Encounter Summary ---
Author Organization [facility] Address [address] [address] Care Team Providers Care Sales Applications Engineer Name Role Phone Alf Khan DO Primary Care Provider Stephan rosa Reason for Visit * Reason Comments MEDICATION REFILL med refills for back pain Medication Check pharmacy confirmed Encounter Details Date Type Department Care Team (Latest Contact Info) Description 09/29/2019 1:45 PM WORKERS' COMPENSATION CLAIMS SUPERVISOR Office Visit [facility] - Family Medicine [address] [place] [address] Alf Khan DO Degeneration of cervical intervertebral [...] at Male 08/31/2020 7:44 AM WORKERS' COMPENSATION CLAIMS SUPERVISOR Gender Identity Male 08/31/2020 7:44 AM WORKERS' COMPENSATION CLAIMS SUPERVISOR Sexual Orientation Straight 08/31/2020 7: 44 AM WORKERS' COMPENSATION CLAIMS SUPERVISOR documented as of this encounter Last Filed Vital Signs Vital Sign Reading Time Taken Comments Blood Pressure 144/86 09/29/2019 2:06 PM WORKERS' COMPENSATION CLAIMS SUPERVISOR Pulse 93 09/29/2019 1:50 PM WORKERS' COMPENSATION CLAIMS SUPERVISOR Temperature 36.7 ??C (98.1 ??F) 09/29/2019 1:50 PM CS T Respiratory Rate - - Oxygen Saturation 96% 09/29/2019 1:50 PM WORKERS' COMPENSATION CLAIMS SUPERVISOR Inhaled Oxygen Concentration - - Weight 110.2 kg (243 lb) 09/29/2019 1:50 PM WORKERS' COMPENSATION CLAIMS SUPERVISOR Height 180.3 cm (5' 11 ) 09/29/2019 1:50 PM WORKERS' COMPENSATION CLAIMS SUPERVISOR Body Mass Index 33.89 09/29/2019 1:50 PM WORKERS' COMPENSATION CLAIMS SUPERVISOR documented in this encounter Functional Status [...] 2:03 PM CST Office Visit, Established Patient, [id number] HISTORY: SYDNEE Doughertydominique Crockett is a 53 [...] patient. Counseled the patient on smoking cessation, Chantix,gbaw-sug-rariwlg nicotine replacement systems patches and gums. Told them the risks of smoking include lung cancer, bladder cancer, COPD, mi and stroke. They have to be involved in the smoking cessation program or it will not succeed. In other words I cannot make someone quit smoking they have to want to quit smoking. I can give you Chantix and advice on the qwje-ojq-mzbndar nicotine systems and I would suggest to [...] 11 ) Wt 110.2 kg (243 lb) GfA006% BMI 33.89 kg/m?? General appearance - alert, [...] to call with any concerns or problems. ERS' COMPENSATION CLAIMS SUPERVISOR documented in this encounter Plan of [...] spine documented in this encounter Care Teams Sales Applications Engineer Relationship Specialty Start Date End Date Alf Khan DO PCP - General Family Medicine 09/03/13 02/27/23 documented as of this encounter
--- OUTSIDE RECORDS SUMMARY | 2024-09-06 23:58 | XMS_ITS | Encounter Summary ---
Author Organization [facility] Address [address] [place] [address] Care Team Providers Care Kaiwhakahaere Name Role Phone Alf Khan DO Primary Care Provider Stephan rosa Reason for Visit * Reason Comments Hives pt here today broke out in hives c/o bilatreal feet swollen with pain in his toes onset few days Medication Check Encounter Details Date Type Department Care Team (Late st Contact Info) Description 02/18/2019 2:00 PM CDT Office Visit [facility] - Family Medicine [address] [place] [address] Alf Khan DO [place] (Primary Dx); Allergic [...] Assigned at Male 08/31/2020 7:44 AM MANAGER FURNITURE Gender Identity Male 08/31/2020 7:44 AM MANAGER FURNITURE Sexual Orientation Straight 08/31/2020 7: 44 AM MANAGER FURNITURE documented as of this encounter Last Filed [...] to Related Tools, and click ???HBP Trackers.?? 9-332-GZB-USA-1 or ( ) National Heart, Lung and Blood [place]: http://www.nhlbi.nih.gov/health/infoctr/index.htm Where can I go for support and more information? There are many ways to quit smoking. Some may work better for you than others. Your caregiver can help you find the best plan to quit. [employer] Phone: 3-522-FQPC-NOW ( ) www.[employer] [employer] Phone: Phone: www.lung.org Instant Rewards [...] 2:33 PM CDT Office Visit, Established Patient, [id number] HISTORY: SYDNEE Trenton Crockett is a 53 [...] the sudden. The only thing he istaking eyrs-zat-elbmseu he claims is Advil and I told [...] it. I explained the drug and stain veterinary technician assistant to 10 days has a few more [...] scan so that we can start playing rn hospice in try and find out what is [...] organism documented in this encounter Care Teams Kaiwhakahaere Relationship Specialty Start Date End Date Alf Khan DO PCP - General Family Medicine 09/03/13 02/27/23 documented as of this encounter
--- OUTSIDE RECORDS SUMMARY | 2024-09-06 23:58 | XMS_ITS | Encounter Summary ---
Author Organization [facility] Address [address] [place] [address] Care Team Providers Care Log Buyer Name Role Phone Alf Khan DO Primary Care Provider Stephan rosa Reason for Referral * Evaluate (Emergency) - Closed Specialty Diagnoses / Procedures Referred By Jean sosa Referred To Contact General Surgery Diagnoses Perirectal abscess Rectal pain HTN (hypertension), benign Alf Khan DO [address] [place] [address] [facility] [address] [facility], [address] [place] [id number] Referral ID Status Reason Start Date Expiration Date V isits Requested Visits Authorized [id number] Closed Specialty Services Required 09/04/2017 03/03/2018 1 1 Scheduling Instructions Has a painful rectal abscess ORK ANALYST Reason for Visit * Reason Comments Urgent Care Follow-up pt follow up to [facility] care for abcess on [place] Medication Check pharmacy confirmed w ith pt Encounter Details Date Type Department Care Team (Late st Contact Info) Description 09/04/2017 2:45 PM NETWORK ANALYST Office Visit [facility] - Family Medicine [address] [place] [address] Alf Khan DO Perirectal abscess (Primary Dx); [...] Assigned at Male 08/31/2020 7:44 AM NETWORK ANALYST Gender Identity Male 08/31/2020 7:44 AM NETWORK ANALYST Sexual Orientation Straight 08/31/2020 7: 44 AM NETWORK ANALYST documented as of this encounter Last Filed Vital Signs Vital Sign Reading Time Taken Comments Blood Pressure 130/86 09/04/2017 2:43 PM NETWORK ANALYST Pulse 94 09/04/2017 2:43 PM NETWORK ANALYST Temperature 36.5 ??C (97.7 ??F) 09/04/2017 2:43 PM CS T Respiratory Rate - - Oxygen Saturation 98% 09/04/2017 2:43 PM NETWORK ANALYST Inhaled Oxygen Concentration - - Weight 105.2 kg (232 lb) 09/04/2017 2:43 PM NETWORK ANALYST Height 180.3 cm (5' 11 ) 09/04/2017 2:43 PM NETWORK ANALYST Body Mass Index 32.36 09/04/2017 2:43 PM NETWORK ANALYST documented in this encounter Functional Status Functional [...] Puja Raymundo R - 09/04/2017 2:43 PM NETWORK ANALYST Caring for Your High Blood Pressure Medications ??? Keep a written list of what medicines you are taking and when you take them. Bring the list of your medicines or the pill bottles when you see your provider. Learn why you take each medicine. Askyour provider or pharmacist for information about your medicines. ??? Do not take eswb-pel-oaxuphm medicine or herbal supplements without talking to [...] Where can I go for more information? [place]or[place] Heart Association National Center: http://www.americanheart.org 1. In the top header, click ???Conditions?? . 2. In the top header, click ???high blood pressure.?? 3. For a printable blood pressure tracker, scroll toward the bottom of the page to Related Tools, and click ???HBP Trackers.?? 7-148-COJ-USA-1 or ( ) National Heart, Lung and Blood [place]: http://www.nhlbi.nih.gov/health/infoctr/index.htm ORK ANALYST documented in this encounter Progress Notes * Alf Khan, - 09/04/2017 3:09 PM CST Office Visit, Established Patient, [address] HISTORY: CC Trenton Crockett is a 51 y.o. male patient, here for: Chief Complaint Patient presents with ??? Urgent Care Follow-up pt follow up to urgent care for abcess on buutock ??? Medication Check pharmacy confirmed with pt HPI: Pt went to [facility] yesterday and was told they [...] Referral Reason: Specialty Services Required Ref[facility] Location: [facility] Requested Specialty: General Surgery Number [...] 5.3 Recent Labs Component Name 04/08/17 1054 [id number] 38.29 Got aerobic and anaerobic AB coverage. [...] to call with any concerns or problems. ORK ANALYST documented in this encounter Plan of [...] test documented in this encounter Care Teams Log Buyer Relationship Specialty Start Date End Date Alf Khan DO PCP - General Family Medicine 09/03/13 02/27/23 documented as of this encounter
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
--- OUTSIDE RECORDS SUMMARY | 2024-09-06 23:58 | XMS_ITS | Encounter Summary ---
Author Organization [facility] Address [address] [place] [address] Care Team Providers Care Harness Repairer Name Role Phone Alf Khan DO Primary Care Provider Stephan rosa Reason for Visit * Reason Comments Erectile dysfunction pt c/o ED Encounter Details Date Type Department Care Team (Late st Contact Info) Description 04/08/2017 3:45 PM CDT Office Visit [facility] - Family Medicine [address] [place] [address] Alf Khan DO HTN (hypertension), benign (Primary [...] Sex Assigned at Male 08/31/2020 7:44 AM LICENSE ISSUER Gender Identity Male 08/31/2020 7:44 AM LICENSE ISSUER Sexual Orientation Straight 08/31/2020 7: 44 AM LICENSE ISSUER documented as of this encounter Last Filed [...] Where can I go for more information? [place] Heart Association National Center: http://www.americanheart.org 1. In the top header, click ???Conditions?? . 2. In the top header, click ???high blood pressure.?? 3. For a printable blood pressure tracker, scroll toward the bottom of the page to Related Tools, and click ???HBP Trackers.?? 5-082-BZK-USA-1 or ( ) National Heart, Lung and Blood [place]: http://www.nhlbi.nih.gov/health/infoctr/index.htm documented in this encounter Progress Notes * Alf Khan, - 04/08/2017 4:21 PM CDT Office Visit, Established Patient, [address] HISTORY: CC Trenton Crockett is a 51 [...] 5.3 Recent Labs Component Name 04/08/17 1054 [id number] 38.29 Told him labs all great and [...] test documented in this encounter Care Teams Harness Repairer Relationship Specialty Start Date End Date Alf Khan DO PCP - General Family Medicine 09/03/13 02/27/23 documented as of this encounter
--- OUTSIDE RECORDS SUMMARY | 2024-09-06 23:58 | XMS_ITS | Encounter Summary ---
Author Organization [facility] Address [address] [place] [address] Care Team Providers Care Neurological Surgeon Name Role Phone lAf Khan DO Primary Care Provider Stephan rosa Reason for Visit * Reason Comments URI pt here today with n ose,head and chest congestion with amrik coughing and nasal driange for a week Medication Check pharmacy confirmed w ith pt Encounter Details Date Type Department Care Team (Latest Contact Info) Description 05/12/2018 4:00 PM CDT Office Visit [facility] - Family Medicine [address] [place] [address] Alf Khan DO Allergic sinusitis (Primary Dx); [...] Sex Assigned at Male 08/31/2020 7:44 AM PACKER INSULATION Gender Identity Male 08/31/2020 7:44 AM PACKER INSULATION Sexual Orientation Straight 08/31/2020 7: 44 AM PACKER INSULATION documented as of this encounter Last Filed [...] Where can I go for more information? [place] Heart Association National Center: http://www.americanheart.org 1. In the top header, click ???Conditions?? . 2. In the top header, click ???high blood pressure.?? 3. For a printable blood pressure tracker, scroll toward the bottom of the page to Related Tools, and click ???HBP Trackers.?? 7-746-GQN-USA-1 or ( ) National Heart, Lung and Blood [place]: http://www.nhlbi.nih.gov/health/infoctr/index.htm documented in this encounter Progress Notes * Alf Khan, - 05/12/2018 4:14 PM CDT Office Visit, Established Patient, [id number] HISTORY: SYDNEE Trenton Crockett is a 52 [...] disc documented in this encounter Care Teams Neurological Surgeon Relationship Specialty Start Date End Date Alf Khan DO PCP - General Family Medicine 09/03/13 02/27/23 documented as of this encounter
--- OUTSIDE RECORDS SUMMARY | 2024-09-06 23:58 | XMS_ITS | Encounter Summary ---
Author Organization [facility] Address [address] [place] [address] Care Team Providers Care Film Process Operator Name Role Phone Alf Khan DO Primary Care Provider Stephan rosa Reason for Visit * Reason Comments Follow-up pt here today for 2 weeks follow up Medication Check pharmacy confirmed w ith pt Encounter Details Date Type Department Care Team (Latest Contact Info) Description 03/17/2019 2:15 PM CDT Office Visit [facility] - Family Medicine [address] [place] [address] Afl Khan DO Hives (Primary Dx); HTN (hypertension), [...] at Male 08/31/2020 7:44 AM DIRECTOR OF SAFETY Gender Identity Male 08/31/2020 7:44 AM DIRECTOR OF SAFETY Sexual Orientation Straight 08/31/2020 7: 44 AM DIRECTOR OF SAFETY documented as of this encounter Last Filed [...] Where can I go for more information? [place] Heart Association National Center: http://www.americanheart.org 1. In the top header, click ???Conditions?? . 2. In the top header, click ???high blood pressure.?? 3. For a printable blood pressure tracker, scroll toward the bottom of the page to Related Tools, and click ???HBP Trackers.?? 6-906-GMG-USA-1 or ( ) National Heart, Lung and Blood [place]: http://www.nhlbi.nih.gov/health/infoctr/index.htm /Where can I go for support and more information? There are many ways to quit smoking. Some may work better for you than others. Your caregiver can help you find the best plan to quit. MolecularMD.SpaceClaim Phone: 1-462-ZARJ-NOW ( ) www.mnlakeplace.com.SpaceClaim Indonesian Lung Association Phone: Phone: www.lung.org Instant Rewards [...] that your body is healing. -Taken from www.MolecularMD.gov Long?term Rewards of Quitting Tobacco use in [...] 13 other kinds of cancer -Taken from www.MolecularMD.gov Tips if you slip ??? Don't be [...] 2:29 PM CDT Office Visit, Established Patient, [address] HISTORY: CC Trenton Crockett is a 53 [...] no way of knowing that is a Z-Mariano and less we try to challenge him [...] X documented in this encounter Care Teams Film Process Operator Relationship Specialty Start Date End Date Alf Khan DO PCP - General Family Medicine 09/03/13 02/27/23 documented as of this encounter
--- OUTSIDE RECORDS SUMMARY | 2024-09-06 23:58 | XMS_ITS | Encounter Summary ---
Author Organization [facility] Health Address [address] [place] [address] Care Team Providers Care Complaints Coordinator Name Role Phone Alf Khan DO Primary Care Provider Stephan rosa Reason for Visit * Reason Onset Date Comments MEDICATION REFILL 02/14/2018 Encounter Details Date Type Department Care Team (Late st Contact Info) Description 02/14/2018 Refill [facility] - Family Medicine [address] [place] [address] Alf Khan, DO MEDICATION REFILL Social History Tobacco Use Types Packs/Day Years Used Date Smoking Tobacco: Former Cigarettes 1.5 25 0 12/07/1985 - 12/07/2010 Smokeless Tobacco: Never Alcohol Use Standard Drinks/Week Comments Yes 0 (1 standard drink = 0.6 oz pur e alcohol) social Sex and Gender Information Value Date Recorded Sex Assigned at Male 08/31/2020 7:44 AM ACCOUNTS RECEIVABLE BOOKKEEPER Gender Identity Male 08/31/2020 7:44 AM ACCOUNTS RECEIVABLE BOOKKEEPER Sexual Orientation Straight 08/31/2020 7: 44 AM ACCOUNTS RECEIVABLE BOOKKEEPER documented as of this encounter Functional Status [...] on filedocumented in this encounter Care Teams Complaints Coordinator Relationship Specialty Start Date End Date Alf Khan DO PCP - General Family Medicine 09/03/13 02/27/23 documented as of this encounter
--- OUTSIDE RECORDS SUMMARY | 2024-09-06 23:58 | XMS_ITS | Encounter Summary ---
Author Organization [facility] Address [address] [place] [address] Care Team Providers Care Rn Imaging Name Role Phone Alf Khan DO Primary Care Provider Stephan rosa Reason for Visit * Reason Comments Follow-up pt here today for 3 months follow up for ongoing back pain Medication Check pharmacy confirmed w ith pt Encounter Details Date Type Department Care Team (Latest Contact Info) Description 02/18/2018 3:00 PM CDT Office Visit [facility] - Family Medicine [address] [place] [address] Alf Khan DO Degeneration of cervical intervertebral [...] Sex Assigned at Male 08/31/2020 7:44 AM IRRIGATION INSTALLATION SPECIALIST Gender Identity Male 08/31/2020 7:44 AM IRRIGATION INSTALLATION SPECIALIST Sexual Orientation Straight 08/31/2020 7: 44 AM IRRIGATION INSTALLATION SPECIALIST documented as of this encounter Last [...] Where can I go for more information? Lao Heart Association National Center: http://www.americanheart.org 1. In the top header, click ???Conditions?? . 2. In the top header, click ???high blood pressure.?? 3. For a printable blood pressure tracker, scroll toward the bottom of the page to Related Tools, and click ???HBP Trackers.?? 2-721-ZCF-USA-1 or ( ) National Heart, Lung and Blood [place]: http://www.nhlbi.nih.gov/health/infoctr/index.htm documented in this encounter Progress Notes * Alf Khan DO - 02/18/2018 3:09 PM CDT Office Visit, Established Patient, [address] HISTORY: SYDNEE Trenton Crockett is a 52 [...] him to work. 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 Takes up to 3 pills per [...] test documented in this encounter Care Teams Rn Imaging Relationship Specialty Start Date End Date Alf Khan DO PCP - General Family Medicine 09/03/13 02/27/23 documented as of this encounter
--- OUTSIDE RECORDS SUMMARY | 2024-09-06 23:58 | XMS_ITS | Encounter Summary ---
Author Organization [facility] Address [address] [place] [address] Care Team Providers Care Vp Human Resources Name Role Phone Alf Khan DO Primary Care Provider Stephan rosa Reason for Visit * Reason Comments Cough pt here today with o ngoing coughing with chest congestion for few days Medication Check pharmacy confirmed w ith Encounter Details Date Type Department Care Team (Latest Contact Info) Description 02/12/2019 8:30 AM CDT Office Visit [facility] - Family Medicine [address] [place] [address] Alf Khan DO Intermittent asthma without complication, [...] Assigned at Male 08/31/2020 7:44 AM MANAGER GALLERY Gender Identity Male 08/31/2020 7:44 AM MANAGER GALLERY Sexual Orientation Straight 08/31/2020 7: 44 AM MANAGER GALLERY documented as of this encounter Last Filed [...] Where can I go for more information? [place] Heart Association National Center: http://www.americanheart.org 1. In the top header, click ???Conditions?? . 2. In the top header, click ???high blood pressure.?? 3. For a printable blood pressure tracker, scroll toward the bottom of the page to Related Tools, and click ???HBP Trackers.?? 8-901-LUI-USA-1 or ( ) National Heart, Lung and Blood [place]: http://www.nhlbi.nih.gov/health/infoctr/index.htm Where can I go for support and more information? There are many ways to quit smoking. Some may work better for you than others. Your caregiver can help you find the best plan to quit. [employer]MB Energie.DivvyHQ Phone: 6-968-ANUE-NOW ( ) www.[employer] PTY.DivvyHQ Slov[place] Lung Association Phone: Phone: www.lung.org Instant Rewards [...] that your body is healing. -Taken from www.SmokeCollegebound Airlinesee.gov Long?term Rewards of Quitting Tobacco use in [...] 8:57 AM CDT Office Visit, Established Patient, [address] HISTORY: CC Trenton Crockett is a 53 [...] hyperlipidemia documented in this encounter Care Teams Vp Human Resources Relationship Specialty Start Date End Date Alf Khan DO PCP - General Family Medicine 09/03/13 02/27/23 documented as of this encounter
--- OUTSIDE RECORDS SUMMARY | 2024-09-06 23:58 | XMS_ITS | Encounter Summary ---
Author Organization [facility] Address [address] [place] [address] Care Team Providers Care Master Ocean Yacht Name Role Phone Alf Khan DO Primary Care Provider Stephan rosa Reason for Visit * Reason Onset Date Comments Encounter Opened In Error 05/11/2020 Encounter Details Date Type Department Care Team (Late st Contact Info) Description 05/11/2020 4:00 PM CDT Video Visit [facility] - Family Medicine [address] [place] [address] Alf Khan DO ERRONEOUS ENCOUNTER--DISREGARD Social History Tobacco Use Types Packs/Day Years Used Date Smoking Tobacco: Every Day Cigarettes 1.5 25 Started: 12/07/1985; Last attempted to quit: 12/07/2010 Smokeless Tobacco: Never Alcohol Use Standard Drinks/Week Comments Yes 0 (1 standard drink = 0.6 oz pur e alcohol) social Sex and Gender Information Value Date Recorded Sex Assigned at Male 08/31/2020 7:44 AM TRENCH DIGGER HELPER Gender Identity Male 08/31/2020 7:44 AM TRENCH DIGGER HELPER Sexual Orientation Straight 08/31/2020 7: 44 AM TRENCH DIGGER HELPER COVID-19 Exposure Response Date Recorded In the [...] Primary documented in this encounter Care Teams Master Ocean Yacht Relationship Specialty Start Date End Date Alf Khan DO PCP - General Family Medicine 09/03/13 02/27/23 documented as of this encounter
--- OUTSIDE RECORDS SUMMARY | 2024-09-06 23:58 | XMS_ITS | Encounter Summary ---
Author Organization [facility] Address [address] [place] [address] Care Team Providers Care Economics Consultant Name Role Phone Alf Khan DO Primary Care Provider Stephan rosa Reason for Visit * Reason Comments Hypertension Follow-up pt here today for b/p check Medication Check pharmacy confirmewit h pt Encounter Details Date Type Department Care Team (Late st Contact Info) Description 02/25/2019 11:30 AM CDT Office Visit [facility] - Family Medicine [address] [place] [address] Alf Khan DO Atopic dermatitis, unspecified type [...] Assigned at Male 08/31/2020 7:44 AM CLINICAL BUSINESS ANALYST Gender Identity Male 08/31/2020 7:44 AM CLINICAL BUSINESS ANALYST Sexual Orientation Straight 08/31/2020 7: 44 AM CLINICAL BUSINESS ANALYST documented as of this encounter Last [...] 12:02 PM CDT Office Visit, Established Patient, [id number] HISTORY: SYDNEE Doughertydominique Crockett is a 53 [...] prednisone could make his sugar go up sleeve setter safety stitch are well controlled he has been andhas [...] facility-administered medications for this visit. 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
--- OUTSIDE RECORDS SUMMARY | 2024-09-06 23:58 | XMS_ITS | Encounter Summary ---
Author Organization [facility] Health Address [address] [place] [address] Care Team Providers Care Rubber Liner Name Role Phone Alf Khan DO Primary Care Provider Stephan rosa Reason for Visit * Reason Onset Date Comments Med Question 12/24/2018 Encounter Details Date Type Department Care Team (Late st Contact Info) Description 12/24/2018 Telephone [facility] - Family Medicine [address] [place] [address] Alf Khan, DO Med Question Social History Tobacco Use Types Packs/Day Years Used Date Smoking Tobacco: Every Day Cigarettes 1.5 25 Started: 12/07/1985; Last attempted to quit: 12/07/2010 Smokeless Tobacco: Never Alcohol Use Standard Drinks/Week Comments Yes 0 (1 standard drink = 0.6 oz pur e alcohol) social Sex and Gender Information Value Date Recorded Sex Assigned at Male 08/31/2020 7:44 AM OCCUPATIONAL THER Gender Identity Male 08/31/2020 7:44 AM OCCUPATIONAL THER Sexual Orientation Straight 08/31/2020 7: 44 AM OCCUPATIONAL THER documented as of this encounter Functional Status [...] 12/24/2018 10:41 AM CDT Pt is at [facility] in [place], they are out of the hydrocodone until after 3 pm. Pt is requesting the prescription be sent to the [facility] on file. documented in this encounter Plan of Treatment Not on file documented as of this encounter Goals Goal Patient Goal Type Associated Problems Recent Progress Patient-Stated? Author Blood Pressure < 140/90 Blood Pressure 172/93(2022 8:59 AM CDT) No Zachary Moreno documented as of this encounter Visit Diagnoses Not on filedocumented in this encounter Care Teams Rubber Liner Relationship Specialty Start Date End Date Alf Khan DO PCP - General Family Medicine 09/03/13 02/27/23 documented as of this encounter
--- OUTSIDE RECORDS SUMMARY | 2024-09-06 23:58 | XMS_ITS | Encounter Summary ---
Author Organization [facility] Health Address [address] [place] [address] Care Team Providers Care Code Enforcement Supervisor Name Role Phone Alf Khan DO Primary Care Provider Stephan rosa Reason for Visit * Reason Comments Refill Request Encounter Details Date Type Department Care Team (Late st Contact Info) Description 02/18/2019 Refill [facility] Medical [facility] - Family Medicine [address] [place] [address] Alf Khan, DO Refill Request Social History Tobacco Use Types Packs/Day Years Used Date Smoking Tobacco: Every Day Cigarettes 1.5 25 Started: 12/07/1985; Last attempted to quit: 12/07/2010 Smokeless Tobacco: Never Alcohol Use Standard Drinks/Week Comments Yes 0 (1 standard drink = 0.6 oz pur e alcohol) social Sex and Gender Information Value Date Recorded Sex Assigned at Male 08/31/2020 7:44 AM STUDIO CAMERA OPERATOR Gender Identity Male 08/31/2020 7:44 AM STUDIO CAMERA OPERATOR Sexual Orientation Straight 08/31/2020 7: 44 AM STUDIO CAMERA OPERATOR documented as of this encounter Functional [...] on filedocumented in this encounter Care Teams Code Enforcement Supervisor Relationship Specialty Start Date End Date Alf Khan DO PCP - General Family Medicine 09/03/13 02/27/23 documented as of this encounter
--- OUTSIDE RECORDS SUMMARY | 2024-09-06 23:58 | XMS_ITS | Encounter Summary ---
Author Organization [facility] Health Address [address] [place] [address] Care Team Providers Care Revenue Integrity Analyst Name Role Phone Alf Khan DO Primary Care Provider Stephan rosa Reason for Visit * Reason Onset Date Comments Refill Request 12/22/2018 Encounter Details Date Type Department Care Team (Late st Contact Info) Description 12/22/2018 Refill [facility] Medical [facility] - Family Medicine [address] [place] [address] Alf Khan, DO Refill Request Social History Tobacco Use Types Packs/Day Years Used Date Smoking Tobacco: Every Day Cigarettes 1.5 25 Started: 12/07/1985; Last attempted to quit: 12/07/2010 Smokeless Tobacco: Never Alcohol Use Standard Drinks/Week Comments Yes 0 (1 standard drink = 0.6 oz pur e alcohol) social Sex and Gender Information Value Date Recorded Sex Assigned at Male 08/31/2020 7:44 AM ALMOND BLANCHER OPERATOR Gender Identity Male 08/31/2020 7:44 AM ALMOND BLANCHER OPERATOR Sexual Orientation Straight 08/31/2020 7: 44 AM ALMOND BLANCHER OPERATOR documented as of this encounter Functional [...] on filedocumented in this encounter Care Teams Revenue Integrity Analyst Relationship Specialty Start Date End Date Alf Khan DO PCP - General Family Medicine 09/03/13 02/27/23 documented as of this encounter
--- OUTSIDE RECORDS SUMMARY | 2024-09-06 23:58 | XMS_ITS | Encounter Summary ---
Author Organization [facility] Health Address [address] [place] [address] Care Team Providers Care Painter Sign Maintenance Name Role Phone Alf Khan DO Primary Care Provider Stephan rosa Reason for Visit * Reason Onset Date Comments Medication Problem 05/22/2018 Encounter Details Date Type Department Care Team (Late st Contact Info) Description 05/22/2018 Telephone [facility] Medical [facility] - Family Medicine [address] [place] [address] Alf Khan DO Medication Problem Social History Tobacco Use Types Packs/Day Years Used Date Smoking Tobacco: Every Day Cigarettes 1.5 25 Started: 12/07/1985; Last attempted to quit: 12/07/2010 Smokeless Tobacco: Never Alcohol Use Standard Drinks/Week Comments Yes 0 (1 standard drink = 0.6 oz pur e alcohol) social Sex and Gender Information Value Date Recorded Sex Assigned at Male 08/31/2020 7:44 AM SOLAR PHOTOVOLTAIC DESIGNER Gender Identity Male 08/31/2020 7:44 AM SOLAR PHOTOVOLTAIC DESIGNER Sexual Orientation Straight 08/31/2020 7: 44 AM SOLAR PHOTOVOLTAIC DESIGNER documented as of this encounter Functional Status [...] Last OV w/ PCP= 05/12/18. [facility] pharmacy only gave him a weeks worth of medication - 42 tablets on 05/12/18. I VERIFIED THIS WITH THE PHARMACY MYSELF. PT. Needs a new script from PCP for the remainder of the script. Send to [facility]. documented in this encounter Plan of Treatment Not on file documented as of this encounter Goals Goal Patient Goal Type Associated Problems Recent Progress Patient-Stated? Author Blood Pressure < 140/90 Blood Pressure 172/93(2022 8:59 AM CDT) No Zachary Moreno documented as of this encounter Visit Diagnoses Not on filedocumented in this encounter Care Teams Painter Sign Maintenance Relationship Specialty Start Date End Date Alf Khan DO PCP - General Family Medicine 09/03/13 02/27/23 documented as of this encounter
--- OUTSIDE RECORDS SUMMARY | 2024-09-06 23:58 | XMS_ITS | Encounter Summary ---
Author Organization [facility] Health Address [address] [place] [address] Care Team Providers Care Energy Technician Name Role Phone Alf Khan DO Primary Care Provider Stephan rosa Reason for Visit * Reason Onset Date Comments Question 02/16/2019 Encounter Details Date Type Department Care Team (Late st Contact Info) Description 02/16/2019 Telephone [facility] Medical [facility] - Family [facility] [address] [place] [address] Alf Khan, DO Question Social History Tobacco Use Types Packs/Day Years Used Date Smoking Tobacco: Every Day Cigarettes 1.5 25 Started: 12/07/1985; Last attempted to quit: 12/07/2010 Smokeless Tobacco: Never Alcohol Use Standard Drinks/Week Comments Yes 0 (1 standard drink = 0.6 oz pur e alcohol) social Sex and Gender Information Value Date Recorded Sex Assigned at Male 08/31/2020 7:44 AM FLOATING DERRICK OPERATOR Gender Identity Male 08/31/2020 7:44 AM FLOATING DERRICK OPERATOR Sexual Orientation Straight 08/31/2020 7: 44 AM FLOATING DERRICK OPERATOR documented as of this encounter Functional [...] be from previous medications and foods and khmj-wxg-hrmhnsi and many things * Telephone Encounter - Harleen Carlos - 02/16/2019 10:57 AM CDT Patient's friend called says patient has hives around body that he noticed this morning. However patient just started taking ZITHROMAX) 250 MG tablet and predniSONE (DELTASONE) 10 MG tablet on Onkmat46/21/19. He is afraid this may be a [...] on filedocumented in this encounter Care Teams Energy Technician Relationship Specialty Start Date End Date Alf Khan DO PCP - General Family Medicine 09/03/13 02/27/23 documented as of this encounter
--- OUTSIDE RECORDS SUMMARY | 2024-09-06 23:58 | XMS_ITS | Encounter Summary ---
Author Organization [facility] Address [address] [place] [address] Care Team Providers Care Rod Mill Tender Name Role Phone Alf Khan DO Primary Care Provider Stephan rosa Reason for Visit * Reason Comments MEDICATION REFILL Encounter Details Date Type Department Care Team (Latest Contact Info) Description 12/14/2019 11:15 AM CDT Video Visit [facility] - Family Medicine [address] [place] [address] Alf Khan DO Degeneration of lumbar or [...] Assigned at Male 08/31/2020 7:44 AM TOP TILE DECORATOR Gender Identity Male 08/31/2020 7:44 AM TOP TILE DECORATOR Sexual Orientation Straight 08/31/2020 7: 44 AM TOP TILE DECORATOR COVID-19 Exposure Response Date Recorded In the [...] 11:31 AM CDT Office Visit, Established Patient, [address] HISTORY: CC Trenton Crockett is a 54 [...] Chantix and patches. I told him patches yzjh-yxs-hmoirpv Chantix is very expensive Counseled the patient on smoking cessation, Chantix, epxm-hro-xvbuvje nicotine replacement systems patches and gums. Told them the risks of smoking include lung cancer, bladder cancer, COPD, mi and stroke. They have to be involved in the smoking cessation program or it will not succeed. In other words I cannot make someone quit smoking they have to want to quit smoking. I can give you Chantix and advice on the dgbz-xtf-hjxchub nicotine systems and I would suggest to [...] disorder documented in this encounter Care Teams Rod Mill Tender Relationship Specialty Start Date End Date Alf Khan DO PCP - General Family Medicine 09/03/13 02/27/23 documented as of this encounter
--- OUTSIDE RECORDS SUMMARY | 2024-09-06 23:58 | XMS_ITS | Encounter Summary ---
Author Organization [facility] Address [address] [place] [address] Care Team Providers Care Control System Computer Scientist Name Role Phone Alf Khan DO Primary Care Provider Stephan rosa Reason for Visit * Reason Onset Date Comments Medication Check 04/12/2017 Update 04/12/2017 Encounter Details Date Type Department Care Team (Late st Contact Info) Description 04/12/2017 Telephone [facility] - Family Medicine [address] [place] [address] Alf Khan, Medication Check; Update Social History Tobacco Use Types Packs/Day Years Used Date Smoking Tobacco: Former Cigarettes 1.5 25 0 12/07/1985 - 12/07/2010 Smokeless Tobacco: Never Alcohol Use Standard Drinks/Week Comments Yes 0 (1 standard drink = 0.6 oz pur e alcohol) social Sex and Gender Information Value Date Recorded Sex Assigned at Male 08/31/2020 7:44 AM MUFFLE OPERATOR Gender Identity Male 08/31/2020 7:44 AM MUFFLE OPERATOR Sexual Orientation Straight 08/31/2020 7: 44 AM MUFFLE OPERATOR documented as of this encounter Functional [...] on filedocumented in this encounter Care Teams Control System Computer Scientist Relationship Specialty Start Date End Date Alf Khan DO PCP - General Family Medicine 09/03/13 02/27/23 documented as of this encounter
--- OUTSIDE RECORDS SUMMARY | 2024-09-06 23:58 | XMS_ITS | Encounter Summary ---
Author Organization [facility] Address [address] [place] [address] Care Team Providers Care Band Instrument Repairer Name Role Phone Alf Khan DO Primary Care Provider Stephan rosa Reason for Visit * Reason Comments Evaluation perirectal abscess * Evaluate (Emergency) - Closed Specialty Diagnoses / Procedures Referred By Contivan t Referred To Contact General Surgery Diagnoses Perirectal abscess Rectal pain HTN (hypertension), benign Alf Khan DO [address] [place] [address] [facility] [place] [id number] [place] [address], [address] [phone] Referral ID Status Reason Start Date Expiration Date V isits Requested Visits Authorized [id number] Closed Specialty Services Required 09/04/2017 03/03/2018 1 1 Encounter Details Date Type Department Care Team (Late st Contact Info) Description 09/05/2017 2:30 PM INTEGRATION ARCHITECT Office Visit [facility] Medical [facility] - Surgery [id number] [place] [address], [address] [address] Donaldo Sadler MD [address] [place] [id number] Perirectal abscess (Primary Dx); Rectal pain; HTN (hypertension), benign Social History Tobacco Use Types Packs/Day Years Used Date Smoking Tobacco: Former Cigarettes 1.5 25 0 12/07/1985 - 12/07/2010 Smokeless Tobacco: Never Alcohol Use Standard Drinks/Week Comments Yes 0 (1 standard drink = 0.6 oz pur e alcohol) social Sex and Gender Information Value Date Recorded Sex Assigned at Male 08/31/2020 7:44 AM INTEGRATION ARCHITECT Gender Identity Male 08/31/2020 7:44 AM INTEGRATION ARCHITECT Sexual Orientation Straight 08/31/2020 7: 44 AM INTEGRATION ARCHITECT documented as of this encounter Last Filed Vital Signs Vital Sign Reading Time Taken Comments Blood Pressure - - Pulse - - Temperature - - Respiratory Rate - - Oxygen Saturation - - Inhaled Oxygen Concentration - - Weight 105.2 kg (232 lb) 09/05/2017 11:42 AM INTEGRATION ARCHITECT Height 180.3 cm (5' 11 ) 09/05/2017 11:42 AM INTEGRATION ARCHITECT Body Mass Index 32.36 09/05/2017 11:42 AM INTEGRATION ARCHITECT documented in this encounter Functional Status Functional [...] Instructions* Renata Cowan - 09/05/2017 11:46 AM INTEGRATION ARCHITECT Patient's medications and allergies were reviewed with the patient today. Patient was instructed tocontact primary care physician or ordering provider with any questions regarding medications. GRATION ARCHITECT documented in this encounter Progress Notes * [...] Rios ??? HERNIA REPAIR, VENTRAL 06/03/2012 ??? [place] Tooth Extraction Outpatient Prescriptions Marked as Taking [...] Snoring no c-pap ??? Unspecified essential hypertension GRATION ARCHITECT documented in this encounter Plan of Treatment [...] benign documented in this encounter Care Teams Band Instrument Repairer Relationship Specialty Start Date End Date Alf Khan DO PCP - General Family Medicine 09/03/13 02/27/23 documented as of this encounter
--- OUTSIDE RECORDS SUMMARY | 2024-09-06 23:58 | XMS_ITS | Encounter Summary ---
Author Organization [facility] Address [address] [place] [address] Care Team Providers Care Cad Librarian Name Role Phone Alf Khan DO Primary Care Provider Stephan rosa Reason for Visit * Reason Onset Date Comments Medication Prior Auth Request 04/26/2017 Encounter Details Date Type Department Care Team (Late st Contact Info) Description 04/26/2017 Telephone [facility] - Family Medicine [address] [place] [address] Alf Khan, DO Medication Prior Auth Request Social History Tobacco Use Types Packs/Day Years Used Date Smoking Tobacco: Former Cigarettes 1.5 25 0 12/07/1985 - 12/07/2010 Smokeless Tobacco: Never Alcohol Use Standard Drinks/Week Comments Yes 0 (1 standard drink = 0.6 oz pur e alcohol) social Sex and Gender Information Value Date Recorded Sex Assigned at Male 08/31/2020 7:44 AM DATABASE ARCHITECT Gender Identity Male 08/31/2020 7:44 AM DATABASE ARCHITECT Sexual Orientation Straight 08/31/2020 7: 44 AM DATABASE ARCHITECT documented as of this encounter Functional [...] on filedocumented in this encounter Care Teams Cad Librarian Relationship Specialty Start Date End Date Alf Khan DO PCP - General Family Medicine 09/03/13 02/27/23 documented as of this encounter
--- OUTSIDE RECORDS SUMMARY | 2024-09-06 23:58 | XMS_ITS | Encounter Summary ---
Author Organization [facility] Address [address] [place] [address] Care Team Providers Care Labor Utilization Superintendent Name Role Phone Alf Khan DO [...] Sex Assigned at Male 08/31/2020 7:44 AM CALL PERSON Gender Identity Male 08/31/2020 7:44 AM CALL PERSON Sexual Orientation Straight 08/31/2020 7: 44 AM CALL PERSON COVID-19 Exposure Response Date Recorded In the [...] on filedocumented in this encounter Care Teams Labor Utilization Superintendent Relationship Specialty Start Date End Date Alf Khan DO PCP - General Family Medicine 09/03/13 02/27/23 documented as of this encounter
--- OUTSIDE RECORDS SUMMARY | 2024-09-06 23:58 | XMS_ITS | Encounter Summary ---
Author Organization [facility] Address [address] [place] [address] Care Team Providers Care Sand Cutting Machine Operator Name Role Phone Alf Khan DO Primary Care Provider Stephan rosa Reason for Visit * Reason Comments Hematuria Encounter Details Date Type Department Care Team (Late st Contact Info) Description 02/24/2018 2:10 PM CDT Office Visit [facility] [employer] [address], [address] [address] Jonathan Muñoz MD [address] [phone] Gross hematuria (Primary Dx) Social History Tobacco Use Types Packs/Day Years Used Date Smoking Tobacco: Every Day Cigarettes 1.5 25 Started: 12/07/1985; Last attempted to quit: 12/07/2010 Smokeless Tobacco: Never Alcohol Use Standard Drinks/Week Comments Yes 0 (1 standard drink = 0.6 oz pur e alcohol) social Sex and Gender Information Value Date Recorded Sex Assigned at Male 08/31/2020 7:44 AM OSTEOLOGY TEACHER Gender Identity Male 08/31/2020 7:44 AM OSTEOLOGY TEACHER Sexual Orientation Straight 08/31/2020 7: 44 AM OSTEOLOGY TEACHER documented as of this encounter Last Filed [...] urethra. The patient was draped. A 14 Mongolian flexible cystoscope was then inserted per meatus [...] Right; INCISION AND DRAINAGE ABSCESS PERIRECTAL ??? [place] Tooth Extraction Current Outpatient Prescriptions Medication ??? [...] results for input(s): PSA in the last 22183 hours. No results for input(s): TESTOSTERONE in the last 88275 hours. No results found for this visit [...] or syntax problems by a trained medical information officer. For questions about the report,please contact the [...] Primary documented in this encounter Care Teams Sand Cutting Machine Operator Relationship Specialty Start Date End Date Alf Khan DO PCP - General Family Medicine 09/03/13 02/27/23 documented as of this encounter
--- OUTSIDE RECORDS SUMMARY | 2024-09-06 23:58 | XMS_ITS | Encounter Summary ---
Author Organization [facility] Address [address] [place] [address] Care Team Providers Care Enamel Pulverizer Name Role Phone Alf Khan DO Primary Care Provider Stephan rosa Reason for Visit * Auth/Cert Specialty Diagnoses / Procedures Referred By Jean sosa Referred To Contact Procedures INCISION AND DRAINAGE ABSCESS PERIRECTAL Referral ID Status Reason Start Date Expiration Date Visits Re quested Visits Authorized [id number] 1 1 Encounter Details Date Type Department Care Team (Late st Contact Info) Description 09/05/2017 3:00 PM COMPUTER OPERATIONS MANAGER - 09/05/2017 3:29 PM COMPUTER OPERATIONS MANAGER Surgery [facility] - Perioperative Surgery [address] [place] [address] [place] [address] [facility] [address] [place] [id number] INCISION AND DRAINAGE ABSCESS PERIRECTAL Surgery Details Date/Time Status Location OR Service Patient Class Case Class Case Type Trauma Case? 09/05/2017 3:00 PM Posted PSYCHIATRIC MAIN OR OR 04 General Surgery Day [...] Sex Assigned at Male 08/31/2020 7:44 AM COMPUTER OPERATIONS MANAGER Gender Identity Male 08/31/2020 7:44 AM COMPUTER OPERATIONS MANAGER Sexual Orientation Straight 08/31/2020 7: 44 AM COMPUTER OPERATIONS MANAGER documented as of this encounter Last Filed Vital Signs Vital Sign Reading Time Taken Comments Blood Pressure 124/77 09/05/2017 4:30 PM COMPUTER OPERATIONS MANAGER Pulse 63 09/05/2017 4:30 PM COMPUTER OPERATIONS MANAGER Temperature 36.7 ??C (98 ??F) 09/05/2017 4:30 PM COMPUTER OPERATIONS MANAGER Respiratory Rate 16 09/05/2017 4:30 PM COMPUTER OPERATIONS MANAGER Oxygen Saturation 96% 09/05/2017 4:30 PM COMPUTER OPERATIONS MANAGER Inhaled Oxygen Concentration - - Weight 105.7 kg (233 lb) 09/05/2017 2:35 PM COMPUTER OPERATIONS MANAGER Height 180.3 cm (5' 11 ) 09/05/2017 2:35 PM COMPUTER OPERATIONS MANAGER Body Mass Index 32.5 09/05/2017 2:35 PM COMPUTER OPERATIONS MANAGER documented in this encounter Functional Status Functional [...] ??? HERNIA REPAIR, VENTRAL ?? 06/03/2012 ??? [place] Tooth Extraction ? Outpatient Prescriptions Marked as [...] no c-pap ??? Unspecified essential hypertension ? UTER OPERATIONS MANAGER documented in this encounter OR Notes * Operative - Donaldo Sadler MD - 09/05/2017 5:54 PM CST [facility] OPERATIVE REPORT PATIENT: : LENNIE QUINTANILLA MR#: [id number] ADMIT DATE: 09/05/2017 CSN: [id number] DATE OF SURGERY: 09/05/2017 : 1965 PHYSICIAN: Donaldo Sadler MD ROOM: [facility] PREOP DIAGNOSIS: Perirectal abscess. POSTOP DIAGNOSIS: Perirectal [...] COMPLICATIONS: None. Donaldo Sadler MD TBC/MODL #: [id number] UTER OPERATIONS MANAGER documented in this encounter Plan of Treatment Not on file documented as of this encounter Goals Goal Patient Goal Type Associated Problems Recent Progress Patient-Stated? Author Blood Pressure < 140/90 Blood Pressure 172/93(2022 8:59 AM CDT) No Zachary Moreno documented as of this encounter Procedures Procedure Name Priority Date/Time Associated Diagnosis Comments INCISION AND DRAINAGE ABSCESS RECTAL/PERIRECTAL 09/05/2017 3:01 PM COMPUTER OPERATIONS MANAGER documented in this encounter Visit Diagnoses Not on filedocumented in this encounter Administered Medications Inactive Administered Medications - up to 3 most recent administrations Medication Order MAR Action Action Date Dose Rate Site 0.9% nacl irrigation solution PRN, Starting on Althea 09/05/17 at 1529, Until Althea 09/05/17 at 1548, Intra-op $ Given 09/05/2017 3:29 PM COMPUTER OPERATIONS MANAGER 1,000 mL Operative Site acetaminophen (TYLENOL) tablet 1,000 mg 1,000 mg, Oral, PRE-OP ONCE, 1 dose, On Althea 09/05/17 at 1439, Pre-op $ Given 09/05/2017 2:40 PM COMPUTER OPERATIONS MANAGER 1,000 mg ceFAZolin (ANCEF) syringe 2,000 mg 2,000 mg (2 g), Intravenous, PRE-OP MULTIPLE, Starting on Althea 09/05/17 at 1439, Until Althea 09/05/17 at 1855, Administer 30 minutes prior to surgical incision. Repeat dose in 3 hours if surgical incision not closed. Administer over 3-5 minutes., Pre-op $ Given 09/05/2017 3:15 PM COMPUTER OPERATIONS MANAGER 2 g HYDROcodone-acetaminop hen (NORCO) 5-325 MG tablet 1 tablet 1 tablet, Oral, ONCE PRN, Mild Pain, 1 dose, Starting on Althea 09/05/17 at 1645, Until Althea 09/05/17 at 1646, Maximum allowable Acetaminophen amount = 4 Grams (4000 mg) / 24 hours., Post-op $ Given 09/05/2017 4:46 PM COMPUTER OPERATIONS MANAGER 1 tablet lactated ringers infusion at 20 mL/hr, Intravenous, PRE-OP CONTINUOUS, Starting on Althea 09/05/17 at 1430, Until Althea 09/05/17 at 1855, Pre-op $ New Bag/Syringe 09/05/2017 2:31 PM COMPUTER OPERATIONS MANAGER lactated ringers infusion at 20 mL/hr, Intravenous, PRE-OP CONTINUOUS, Starting on Althea 09/05/17 at 1445, Until Althea 09/05/17 at 1855, Pre-op $ New Bag/Syringe 09/05/2017 2:40 PM COMPUTER OPERATIONS MANAGER 20 mL/hr oxyCODONE-acetaminophe n (PERCOCET) 5-325 MG tablet 2 tablet 2 tablet, Oral, EVERY 4 HOURS PRN, Severe Pain, Starting on Althea 09/05/17 at 1645, Until Althea 09/05/17 at 1855, Post-op documented in this encounter Active and Recently Administered Medications Times are shown in COMPUTER OPERATIONS MANAGER. Scheduled Medication Order 09/03/2017 09/04/2017 09/05/2017 acetaminophen [...] Pre-op 1515 ($ Given - Prov ider: LEONARDO Nielsen) Continuous Medication Order 09/03/2017 09/04/2017 09/05/2017 [...] Post-op documented in this encounter Care Teams Enamel Pulverizer Relationship Specialty Start Date End Date Alf Khan DO PCP - General Family Medicine 09/03/13 02/27/23 documented as of this encounter
--- OUTSIDE RECORDS SUMMARY | 2024-09-06 23:58 | XMS_ITS | Encounter Summary ---
Author Organization [facility] Address [address] [place] [address] Care Team Providers Care Field Mechanic/Site Lead Name Role Phone Alf Khan DO Primary Care Provider Stephan rosa Reason for Visit * Auth/Cert Specialty Diagnoses / Procedures Referred By Jean sosa Referred To Contact Procedures INCISION AND DRAINAGE ABSCESS PERIRECTAL Referral ID Status Reason Start Date Expiration Date Visits Re quested Visits Authorized [id number] 1 1 Encounter Details Date Type Department Care Team (Late st Contact Info) Description 09/05/2017 3:10 PM PHARM SPEC Anesthesia Event [facility] - Perioperative Surgery [address] [place] [address] Donaldo Cannon DO [address] [place] [address] Anesthesia Record Procedure Summary Procedure [...] Sex Assigned at Male 08/31/2020 7:44 AM PHARM SPEC Gender Identity Male 08/31/2020 7:44 AM PHARM SPEC Sexual Orientation Straight 08/31/2020 7: 44 AM PHARM SPEC documented as of this encounter Functional Status [...] No value filed. Comments: No value filed. M SPEC documented in this encounter Procedure Notes * Ingris Romano APRN-FREEMAN - 09/05/2017 3:29 PM CSTAssociated Order(s): ENDOTRACHEAL TUBE NOTE Endotracheal Tube Placement: Patient Location: OR. Procedure: intubation ([id number]). Procedure Section: Sedation: under general anesthesia. Indications [...] No. Staff Section Anesthesia Provider: INGRIS ROMANO M SPEC documented in this encounter Consult Notes * [...] Rios ??? HERNIA REPAIR, VENTRAL 06/03/2012 ??? [place] [facility] Tests: None None None None Anesthesia pre op re evaluation by LEONARDO Nielsen 09/05/2017 2:56 PM M SPEC documented in this encounter Miscellaneous Notes * [...] report from the receiving PACUteam. LEONARDO Nielsen M SPEC documented in this encounter Plan of Treatment Not on file documented as of this encounter Goals Goal Patient Goal Type Associated Problems Recent Progress Patient-Stated? Author Blood Pressure < 140/90 Blood Pressure 172/93(2022 8:59 AM CDT) No Zachary Moreno documented as of this encounter Procedures Procedure Name Priority Date/Time Associated Diagnosis Comments ENDOTRACHEAL TUBE NOTE Routine 09/05/2017 3:30 PM PHARM SPEC Procedure Note - Ingris Romano APRN-CRNA - 09/05/2017 3:29 PM CSTThis note is in progress. Endotracheal Tube Placement: Patient Location: OR. Procedure: intubation ([id number]). Procedure Section: Sedation: under general anesthesia. Indications [...] minutes., Pre-op $ Given 09/05/2017 3:15 PM PHARM SPEC 2 g dexamethasone (DECADRON) injection PRN, Nausea/Vomiting, Starting on Althea 09/05/17 at 1524, Until Althea 09/05/17 at 1550, Anesthesia Intra-op $ Given 09/05/2017 3:24 PM PHARM SPEC 4 mg fentaNYL (PF) (SUBLIMAZE) injection PRN, Starting on Althea 09/05/17 at 1519, Until Althea 09/05/17 at 1550, Anesthesia Intra-op $ Given 09/05/2017 3:19 PM PHARM SPEC 100 mcg ketorolac (TORADOL) injection PRN, Starting on Althea 09/05/17 at 1535, Until Althea 09/05/17 at 1550, Anesthesia Intra-op $ Given 09/05/2017 3:35 PM PHARM SPEC 30 mg lactated ringers infusion at 20 mL/hr, Intravenous, PRE-OP CONTINUOUS, Starting on Althea 09/05/17 at 1430, Until Althea 09/05/17 at 1855, Pre-op $ New Bag/Syringe 09/05/2017 2:31 PM PHARM SPEC lidocaine hcl (PF) (XYLOCAINE MPF) 2 % injection PRN, Starting on Althea 09/05/17 at 1519, Until Althea 09/05/17 at 1550, Anesthesia Intra-op $ Given 09/05/2017 3:19 PM PHARM SPEC 50 mg midazolam (VERSED) injection PRN, Starting on Althea 09/05/17 at 1510, Until Althea 09/05/17 at 1550, Anesthesia Intra-op $ Given 09/05/2017 3:10 PM PHARM SPEC 2 mg Ondansetron HCl (ZOFRAN) injection PRN, Nausea/Vomiting, Starting on Althea 09/05/17 at 1525, Until Althea 09/05/17 at 1550, Anesthesia Intra-op $ Given 09/05/2017 3:25 PM PHARM SPEC 8 mg propofol (DIPRIVAN) injection PRN, Starting on Althea 09/05/17 at 1519, Until Althea 09/05/17 at 1550, Anesthesia Intra-op $ Given 09/05/2017 3:19 PM PHARM SPEC 200 mg succinylcholine (ANECTINE) injection PRN, Starting on Althea 09/05/17 at 1519, Until Althea 09/05/17 at 1550, Anesthesia Intra-op $ Given 09/05/2017 3:19 PM PHARM SPEC 140 mg documented in this encounter Care Teams Field Mechanic/Site Lead Relationship Specialty Start Date End Date Afl Khan DO PCP - General Family Medicine 09/03/13 02/27/23 documented as of this encounter
--- OUTSIDE RECORDS SUMMARY | 2024-09-06 23:58 | XMS_ITS | Encounter Summary ---
Author Organization [facility] Address [address] [place] [address] Care Team Providers Care Cop Name Role Phone Alf Khan DO Primary Care Provider Stephan rosa Reason for Visit * Reason Comments MEDICATION REFILL pt here today for me dication refill Encounter Details Date Type Department Care Team (Latest Contact Info) Description 09/15/2018 3:30 PM PATIENT SERVICES ASSISTANT Office Visit [facility] - Family Medicine [address] [place] [address] Alf Khan DO Degeneration of lumbar or [...] Assigned at Male 08/31/2020 7:44 AM PATIENT SERVICES ASSISTANT Gender Identity Male 08/31/2020 7:44 AM PATIENT SERVICES ASSISTANT Sexual Orientation Straight 08/31/2020 7: 44 AM PATIENT SERVICES ASSISTANT documented as of this encounter Last Filed Vital Signs Vital Sign Reading Time Taken Comments Blood Pressure 130/78 09/15/2018 3:40 PM PATIENT SERVICES ASSISTANT Pulse 91 09/15/2018 3:40 PM PATIENT SERVICES ASSISTANT Temperature 36.8 ??C (98.2 ??F) 09/15/2018 3:40 PM CS T Respiratory Rate - - Oxygen Saturation 96% 09/15/2018 3:40 PM PATIENT SERVICES ASSISTANT Inhaled Oxygen Concentration - - Weight 97.5 kg (215 lb) 09/15/2018 3:40 PM PATIENT SERVICES ASSISTANT Height 180.3 cm (5' 11 ) 09/15/2018 3:40 PM PATIENT SERVICES ASSISTANT Body Mass Index 29.99 09/15/2018 3:40 PM PATIENT SERVICES ASSISTANT documented in this encounter Functional Status Functional [...] Puja Raymundo R - 09/15/2018 3:41 PM PATIENT SERVICES ASSISTANT Caring for Your High Blood Pressure Medications ??? Keep a written list of what medicines you are taking and when you take them. Bring the list of your medicines or the pill bottles when you see your provider. Learn why you take each medicine. Askyour provider or pharmacist for information about your medicines. ??? Do not take nhec-llf-zqznugf medicine or herbal supplements without talking to [...] Where can I go for more information? [place] [employer] National Center: http://www.americanheart.org 1. In the top header, click ???Conditions?? . 2. In the top header, click ???high blood pressure.?? 3. For a printable blood pressure tracker, scroll toward the bottom of the page to Related Tools, and click ???HBP Trackers.?? 3-725-MPF-USA-1 or ( ) National Heart, Lung and Blood Donnel[place]: http://www.nhlbi.nih.gov/health/infoctr/index.htm ENT SERVICES ASSISTANT documented in this encounter Progress Notes * Alf Khan, - 09/15/2018 4:02 PM CST Office Visit, Established Patient, [id number] HISTORY: CC Trenton Crockett is a 52 [...] to call with any concerns or problems. ENT SERVICES ASSISTANT documented in this encounter Plan of Treatment [...] disorder documented in this encounter Care Teams Cop Relationship Specialty Start Date End Date Alf Khan DO PCP - General Family Medicine 09/03/13 02/27/23 documented as of this encounter
--- OUTSIDE RECORDS SUMMARY | 2024-09-06 23:58 | XMS_ITS | Encounter Summary ---
Author Organization [facility] Address [address] [place] [address] Care Team Providers Care Experimental Aircraft Mechanic Name Role Phone Alf Khan DO Primary Care Provider Stephan rosa Reason for Visit * Reason Onset Date Comments Late Cancel 05/03/2020 Encounter Details Date Type Department Care Team (Late st Contact Info) Description 05/03/2020 Telephone [facility] - Family Medicine [address] [place] [address] Alf Khan, DO Late Cancel Social History Tobacco Use Types Packs/Day Years Used Date Smoking Tobacco: Every Day Cigarettes 1.5 25 Started: 12/07/1985; Last attempted to quit: 12/07/2010 Smokeless Tobacco: Never Alcohol Use Standard Drinks/Week Comments Yes 0 (1 standard drink = 0.6 oz pur e alcohol) social Sex and Gender Information Value Date Recorded Sex Assigned at Male 08/31/2020 7:44 AM TOGGLE PRESS FOLDER AND FEEDER Gender Identity Male 08/31/2020 7:44 AM TOGGLE PRESS FOLDER AND FEEDER Sexual Orientation Straight 08/31/2020 7: 44 AM TOGGLE PRESS FOLDER AND FEEDER COVID-19 Exposure Response Date Recorded In the [...] on filedocumented in this encounter Care Teams Experimental Aircraft Mechanic Relationship Specialty Start Date End Date Alf Khan DO PCP - General Family Medicine 09/03/13 02/27/23 documented as of this encounter
--- OUTSIDE RECORDS SUMMARY | 2024-09-06 23:58 | XMS_ITS | Encounter Summary ---
Author Organization [facility] Address [address] [place] [address] Care Team Providers Care English Composition Teacher Name Role Phone Alf Khan DO Primary Care Provider Stephan rosa Reason for Visit * Reason Onset Date Comments Question 04/02/2017 Patient Requested Call 04/02/2017 Encounter Details Date Type Department Care Team (Late st Contact Info) Description 04/02/2017 Telephone [facility] - Family Medicine [address] [place] [address] Alf Khan, DO Question; Patient Requested Call Social History Tobacco Use Types Packs/Day Years Used Date Smoking Tobacco: Former Cigarettes 1.5 25 0 12/07/1985 - 12/07/2010 Smokeless Tobacco: Never Alcohol Use Standard Drinks/Week Comments Yes 0 (1 standard drink = 0.6 oz pur e alcohol) social Sex and Gender Information Value Date Recorded Sex Assigned at Male 08/31/2020 7:44 AM PRACTICE CLINICIAN Gender Identity Male 08/31/2020 7:44 AM PRACTICE CLINICIAN Sexual Orientation Straight 08/31/2020 7: 44 AM PRACTICE CLINICIAN documented as of this encounter Functional Status [...] on filedocumented in this encounter Care Teams English Composition Teacher Relationship Specialty Start Date End Date Alf Khan DO PCP - General Family Medicine 09/03/13 02/27/23 documented as of this encounter
--- OUTSIDE RECORDS SUMMARY | 2024-09-06 23:58 | XMS_ITS | Encounter Summary ---
Author Organization [facility] Address [address] [place] [address] Care Team Providers Care Stain Remover Name Role Phone Alf Khan DO Primary Care Provider Stephan rosa Reason for Visit * Reason Onset Date Comments Medication Request 04/09/2017 Encounter Details Date Type Department Care Team (Late st Contact Info) Description 04/09/2017 Telephone [facility] - Family [facility] [address] [place] [address] Alf Khan, DO Medication Request Social History Tobacco Use Types Packs/Day Years Used Date Smoking Tobacco: Former Cigarettes 1.5 25 0 12/07/1985 - 12/07/2010 Smokeless Tobacco: Never Alcohol Use Standard Drinks/Week Comments Yes 0 (1 standard drink = 0.6 oz pur e alcohol) social Sex and Gender Information Value Date Recorded Sex Assigned at Male 08/31/2020 7:44 AM WARP DOFFER Gender Identity Male 08/31/2020 7:44 AM WARP DOFFER Sexual Orientation Straight 08/31/2020 7: 44 AM WARP DOFFER documented as of this encounter Functional Status [...] on filedocumented in this encounter Care Teams Stain Remover Relationship Specialty Start Date End Date Alf Khan DO PCP - General Family Medicine 09/03/13 02/27/23 documented as of this encounter
--- OUTSIDE RECORDS SUMMARY | 2024-09-06 23:58 | XMS_ITS | Encounter Summary ---
Author Organization [facility] Address [address] [place] [address] Care Team Providers Care Flight Superintendent Name Role Phone Alf Khan DO [...] Sex Assigned at Male 08/31/2020 7:44 AM UX DEVELOPER Gender Identity Male 08/31/2020 7:44 AM UX DEVELOPER Sexual Orientation Straight 08/31/2020 7: 44 AM UX DEVELOPER COVID-19 Exposure Response Date Recorded In the [...] on filedocumented in this encounter Care Teams Flight Superintendent Relationship Specialty Start Date End Date Alf Khan DO PCP - General Family Medicine 09/03/13 02/27/23 documented as of this encounter
--- OUTSIDE RECORDS SUMMARY | 2024-09-06 23:58 | XMS_ITS | Encounter Summary ---
Author Organization [facility] Address [address] [place] [address] Care Team Providers Care Drug Safety Associate Name Role Phone Alf Khan DO [...] Sex Assigned at Male 08/31/2020 7:44 AM ORGAN GRINDER Gender Identity Male 08/31/2020 7:44 AM ORGAN GRINDER Sexual Orientation Straight 08/31/2020 7: 44 AM ORGAN GRINDER COVID-19 Exposure Response Date Recorded In the [...] on filedocumented in this encounter Care Teams Drug Safety Associate Relationship Specialty Start Date End Date Alf Khan DO PCP - General Family Medicine 09/03/13 02/27/23 documented as of this encounter
--- OUTSIDE RECORDS SUMMARY | 2024-09-06 23:58 | XMS_ITS | Encounter Summary ---
Author Organization [facility] Address [address] [place] [address] Care Team Providers Care Resawyer Name Role Phone Alf Khan DO Primary Care Provider Stephan rosa Reason for Visit * Reason Comments Pain Back pt follow up to ongo ing back pain and med refill Medication Check pharmacy confirmed w ith pt Encounter Details Date Type Department Care Team (Latest Contact Info) Description 02/23/2020 2:45 PM CDT Office Visit [facility] - Family Medicine [address] [place] [address] Alf Khan DO Smoker (Primary Dx); Degeneration [...] Sex Assigned at Male 08/31/2020 7:44 AM FISH HATCHERY SUPERINTENDENT Gender Identity Male 08/31/2020 7:44 AM FISH HATCHERY SUPERINTENDENT Sexual Orientation Straight 08/31/2020 7: 44 AM FISH HATCHERY SUPERINTENDENT COVID-19 Exposure Response Date Recorded In the [...] 3:15 PM CDT Office Visit, Established Patient, [id number] HISTORY: CC Trenton Crockett is a 54 [...] 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 He says [...] Counseled the patient on smoking cessation, Chantix, nuvb-bis-twplgrd nicotine replacement systems patches and gums. Told them the risks of smoking include lung cancer, bladder cancer, COPD, mi and stroke. They have to be involved in the smokingcessation program or it will not succeed. In other words I cannot make someone quit smoking they have to want to quit smoking. I can give you Chantix and advice on the ymlh-pnc-xihernw nicotine systems and I would suggest to [...] 11 ) Wt 115.2 kg (254 lb) QeR963% BMI 35.43 kg/m?? General appearance - WD, [...] benign documented in this encounter Care Teams Resawyer Relationship Specialty Start Date End Date Alf Khan DO PCP - General Family Medicine 09/03/13 02/27/23 documented as of this encounter
--- OUTSIDE RECORDS SUMMARY | 2024-09-06 23:58 | XMS_ITS | Encounter Summary ---
Author Organization [facility] Address [address] [place] [address] Care Team Providers Care Bookkeeping Assistant Name Role Phone Alf Khan DO Primary Care Provider Stephan rosa Reason for Visit * Reason Comments Follow-up pt in office for med ication follow up for norco Encounter Details Date Type Department Care Team (Latest Contact Info) Description 07/09/2019 4:30 PM CLOTH REELER Office Visit [facility] - Family Medicine [address] [place] [address] Alf Khan DO Degeneration of lumbar or [...] Sex Assigned at Male 08/31/2020 7:44 AM CLOTH REELER Gender Identity Male 08/31/2020 7:44 AM CLOTH REELER Sexual Orientation Straight 08/31/2020 7: 44 AM CLOTH REELER documented as of this encounter Last Filed Vital Signs Vital Sign Reading Time Taken Comments Blood Pressure 142/78 07/09/2019 4:47 PM CLOTH REELER Pulse 90 07/09/2019 4:47 PM CLOTH REELER Temperature 36.9 ??C (98.4 ??F) 07/09/2019 4:47 PM CS T Respiratory Rate - - Oxygen Saturation 97% 07/09/2019 4:47 PM CLOTH REELER Inhaled Oxygen Concentration - - Weight 107.5 kg (237 lb) 07/09/2019 4:47 PM CLOTH REELER Height 180.3 cm (5' 11 ) 07/09/2019 4:47 PM CLOTH REELER Body Mass Index 33.05 07/09/2019 4:47 PM CLOTH REELER documented in this encounter Functional Status Functional [...] 4:57 PM CST Office Visit, Established Patient, [id number] HISTORY: SYDNEE Doughertydominique Crockett is a 53 [...] 11 ) Wt 107.5 kg (237 lb) WmR798% BMI 33.05 kg/m?? General appearance - alert, [...] to call with any concerns or problems. H REELER documented in this encounter Plan of Treatment [...] disc documented in this encounter Care Teams Bookkeeping Assistant Relationship Specialty Start Date End Date Alf Khan DO PCP - General Family Medicine 09/03/13 02/27/23 documented as of this encounter
--- OUTSIDE RECORDS SUMMARY | 2024-09-06 23:58 | XMS_ITS | Encounter Summary ---
Author Organization [facility] Address [address] [place] [address] Care Team Providers Care Twister Hand Name Role Phone Alf Khan DO Primary Care Provider Stephan rosa Reason for Visit * Reason Onset Date Comments Update 01/22/2017 Encounter Details Date Type Department Care Team (Late st Contact Info) Description 01/22/2017 Telephone [facility] - Family [facility] [address] [place], [place] [id number] Alf Khan DO Update Social History Tobacco Use Types Packs/Day Years Used Date Smoking Tobacco: Former Cigarettes 1.5 25 0 12/07/1985 - 12/07/2010 Smokeless Tobacco: Never Alcohol Use Standard Drinks/Week Comments Yes 0 (1 standard drink = 0.6 oz pur e alcohol) social Sex and Gender Information Value Date Recorded Sex Assigned at Male 08/31/2020 7:44 AM GERONTOLOGY AIDE Gender Identity Male 08/31/2020 7:44 AM GERONTOLOGY AIDE Sexual Orientation Straight 08/31/2020 7: 44 AM GERONTOLOGY AIDE documented as of this encounter Functional [...] payment taken and given to Elham at frontend engineer documented in this encounter Plan of Treatment Not on file documented as of this encounter Goals Goal Patient Goal Type Associated Problems Recent Progress Patient-Stated? Author Blood Pressure < 140/90 Blood Pressure 172/93(2022 8:59 AM CDT) Zachary Funez documented as of this encounter Visit Diagnoses Not on filedocumented in this encounter Care Teams Twister Hand Relationship Specialty Start Date End Date Alf Khan DO PCP - General Family Medicine 09/03/13 02/27/23 documented as of this encounter
--- OUTSIDE RECORDS SUMMARY | 2024-09-06 23:58 | XMS_ITS | Encounter Summary ---
Author Organization [facility] Address [address] [place] [address] Care Team Providers Care Cook School Cafeteria Name Role Phone Alf Khan DO Primary Care Provider Stephan rosa Reason for Visit * Reason Onset Date Comments After Hours Call 04/16/2020 Encounter Details Date Type Department Care Team (Late st Contact Info) Description 04/16/2020 Telephone [facility] - Family Medicine [address] [place] [address] Yonas Taylor DO [address] [place] [address] After Hours Call Social History Tobacco Use Types Packs/Day Years Used Date Smoking Tobacco: Every Day Cigarettes 1.5 25 Started: 12/07/1985; Last attempted to quit: 12/07/2010 Smokeless Tobacco: Never Alcohol Use Standard Drinks/Week Comments Yes 0 (1 standard drink = 0.6 oz pur e alcohol) social Sex and Gender Information Value Date Recorded Sex Assigned at Male 08/31/2020 7:44 AM MEDICAL CLINIC MANAGER Gender Identity Male 08/31/2020 7:44 AM MEDICAL CLINIC MANAGER Sexual Orientation Straight 08/31/2020 7: 44 AM MEDICAL CLINIC MANAGER documented as of this encounter Functional [...] Khan sent in Hydrocodone 5 mg to [facility] on [address]. It was sent in e-scribe. Pharmacy does not have in stock. Cannot transfer to another pharmacy.New script has to be resent. I advised pt's spouse I cannot refill schedule 2 narcotics on weekends. Schedule 2 cannot be called in and don't have access to send via [employer]. He has 2 separate [place] prescriptions both 5 mg and 7.5 mg. [...] on filedocumented in this encounter Care Teams [employer] Cafeteria Relationship Specialty Start Date End Date Alf Khan DO PCP - General Family Medicine 09/03/13 02/27/23 documented as of this encounter
--- OUTSIDE RECORDS SUMMARY | 2024-09-06 23:58 | XMS_ITS | Encounter Summary ---
Author Organization [facility] Address [address] [place] [address] Care Team Providers Care Procurement Accountant Name Role Phone Alf Khan DO Primary Care Provider Stephan rosa Reason for Visit * Reason Onset Date Comments Refill Request 06/16/2019 Encounter Details Date Type Department Care Team (Late st Contact Info) Description 06/16/2019 Refill [facility] - Family Medicine [address] [place] [address] Alf Khan, DO Refill Request Social History Tobacco Use Types Packs/Day Years Used Date Smoking Tobacco: Every Day Cigarettes 1.5 25 Started: 12/07/1985; Last attempted to quit: 12/07/2010 Smokeless Tobacco: Never Alcohol Use Standard Drinks/Week Comments Yes 0 (1 standard drink = 0.6 oz pur e alcohol) social Sex and Gender Information Value Date Recorded Sex Assigned at Male 08/31/2020 7:44 AM LOADING UNIT OPERATOR CRIMPING Gender Identity Male 08/31/2020 7:44 AM LOADING UNIT OPERATOR [place] Sexual Orientation Straight 08/31/2020 7: 44 AM LOADING UNIT OPERATOR [place] documented as of this encounter Functional Status [...] Smith - 06/17/2019 9:38 AM CDT Per [facility] pharmacy: starter cup powder mixer date: 06/08/19 How much: only picked up [...] on filedocumented in this encounter Care Teams Procurement Accountant Relationship Specialty Start Date End Date Alf Khan DO PCP - General Family Medicine 09/03/13 02/27/23 documented as of this encounter
--- OUTSIDE RECORDS SUMMARY | 2024-09-06 23:58 | XMS_ITS | Encounter Summary ---
Author Organization [facility] Address [address] [place] [address] Care Team Providers Care Scenery Builder Name Role Phone Alf Khan DO Primary Care Provider Stephan rosa Reason for Visit * Reason Comments Blood in urine Onset this morning, taking hydrocodone for chronic back. Encounter Details Date Type Department Care Team (Late st Contact Info) Description 02/22/2018 6:17 PM CDT - 02/22/2018 9:06 PM CDT Emergency ER at [address] [address] Junior Gutierrez MD [address] [place] [address] [place] [address] Acute UTI (Primary Dx); Painless hematuria Discharge [...] Assigned at Male 08/31/2020 7:44 AM TEST CENTER MANAGER Gender Identity Male 08/31/2020 7:44 AM TEST CENTER MANAGER Sexual Orientation Straight 08/31/2020 7: 44 AM TEST CENTER MANAGER documented as of this encounter Last [...] ask them during your visits. ?? 2017 [employer] Information is for End User's use only and may not be sold, redistributed or otherwise used for commercial purposes. All illustrations and images included in CareNotes?? are the copyrighted property of [employer]. or [employer]. The above information is an medicine aide only. It is not intended as [...] ask them during your visits. ?? 2017 [employer] Information is for End User's use only and may not be sold, redistributed or otherwise used for commercial purposes. All illustrations and images included in CareNotes?? are the copyrighted property of [employer]. or [employer]. The above information is an medicine aide only. It is not intended as [...] needed Reported on 07/31/2016 05/12/2018 albuterol HFA (PROVENTIL;VENTOLIN;RI OAIR) 108 (90 BASE) MCG/ACT inhaler Inhale [...] with the patient: 02/22/2018 18:30 [place] Crockett [id number] [facility] EMERGENCY DEPARTMENT History Chief Complaint Patient [...] Right; INCISION AND DRAINAGE ABSCESS PERIRECTAL ??? [place] Tooth Extraction Family History Problem Relation Age [...] Negative Ketone UA Trace (Abnormal) Negative Specific Liberty UA 1.040 (H) 1.005 - 1.030 Blood [...] % Lymph 28.4 20.0 - 43.0 % Adams 7.0 5.0 - 13.0 % Eos 1.7 0.0 - 6.0 % Baso 0.5 0.0 - 2.0 % Immature Grans 0.3 0 - 1 % Neutro Abs 7.16 (H) 2.01 - 7.14 x10E9/L Lymph Abs 3.28 1.07 - 3.94 x10E9/L Adams Abs 0.81 0.26 - 1.07 x10E9/L Eosin [...] or syntax problems by a trained medical record coder. For questions about the report, please contact [...] to follow-up with: Alf Khan DO [address] [facility] [address] As needed, [place] [address] [address] [facility] [phone] Schedule an appointment as soon as possible [...] or syntax problems by a trained medical record coder. For questions about the report, please contact [...] or syntax problems by a trained medical record coder. For questions about the report, please contact [...] urogenital jayleen CARLOS 02/23/2018 11:00 AM CDT [facility] Urine URINE SPECIMEN OBTAINED BY CLEAN CATCH PROCEDURE / Unknown Collection / Unknown 02/22/2018 6:37 PM CDT 02/22/2018 6:36 PM CDT Junior Gutierrez MD LAB - MICROBIOLOGY O RDERABLES [facility] [address] [place] [address], [facility] [phone] * (ABNORMAL) URINE MICROSCOPIC ONLY REFLEX TO [...] PM CDT 02/22/2018 6:36 PM CDT Narrative [facility] - 02/22/2018 6:47 PM CDT Junior Gutierrez MD LAB - URINALYSIS ORD ERABLES [facility] [address] [place] [address] * (ABNORMAL) URINALYSIS REFLEX MICROSCOPIC REFLEX CULTURE (02/22/2018 6:37 PM CDT) Color UA Grossly Bloody(A) Straw, Yellow 02/22/2018 6:47 PM CDT [facility] Clarity UA Turbid(A) Clear 02/22/2018 6:47 PM CDT [facility] Glucose UA 1+(A) Negative 02/22/2018 6:47 PM CDT [facility] Bilirubin UA Negative Negative 02/22/2018 6:47 PM CDT [facility] Ketone UA Trace(A) Negative 02/22/2018 6:47 PM CDT [facility] Specific Liberty UA 1.040(H) 1.005 - 1.030 02/22/2018 6:47 PM CDT [facility] Blood UA 3+(A) Negative 02/22/2018 6:47 PM CDT [facility] pH UA 5.0 5.0 - 8.0 pH 02/22/2018 6:47 PM CDT [facility] Protein UA 2+(A) Negative 02/22/2018 6:47 PM CDT [facility] Urobilinogen UA Negative Negative mg/dL 02/22/2018 6:47 PM CDT [facility] Nitrite UA Positive(A) Negative 02/22/2018 6:47 PM CDT [facility] Leukocyte UA Trace(A) Negative 02/22/2018 6:47 PM CDT [facility] Urine Microscopy Urine microscopy to follow 02/22/2018 6:47 PM CDT [facility] Reflex Status Culture to follow 02/22/2018 6:47 PM CDT [facility] Urine URINE SPECIMEN OBTAINED BY CLEAN CATCH PROCEDURE / Unknown Collection / Unknown 02/22/2018 6:37 PM CDT 02/22/2018 6:36 PM CDT Narrative [facility] - 02/22/2018 6:47 PM CDT Ascorbic Acid can cause false negative urine strip tests for blood, glucose, nitrite, and bilirubin. Junior Gutierrez MD LAB - URINALYSIS ORD ERABLES Performing Organization Address [facility] Co de Phone Number [facility] [address] [place], [place] [phone] * LIPASE BLOOD (02/22/2018 6:36 PM CDT) Lipase 133 73 - 393 U/L 02/22/2018 7:16 PM CDT [facility] Blood BLOOD SPECIMEN / Unknown Venipuncture / Unknown 02/22/2018 6:36 PM CDT 02/22/2018 7:01 PM CDT Junior Gutierrez MD LAB - CHEMISTRY LIZABETH WILEY Performing Organization Address [facility] Co de Phone Number [facility] [address] [place] [address] * (ABNORMAL) COMPREHENSIVE METABOLIC PANEL (02/22/2018 6:36 PM CDT) Glucose 104 74 - 106 mg/dL 02/22/2018 7:16 PM CDT [facility] Sodium 141 136 - 145 mmol/L 02/22/2018 7:16 PM CDT [facility] Potassium 3.6 3.5 - 5.1 mmol/L 02/22/2018 7:16 PM CDT [facility] Chloride 105 98 - 107 mmol/L 02/22/2018 7:16 PM CDT [facility] CO2 27 22 - 31 mmol/L 02/22/2018 7:16 PM CDT [facility] Calcium 8.4(L) 8.5 - 10.1 mg/dL 02/22/2018 7:16 PM CDT [facility] Anion Gap 9 8 - 16 mmol/L 02/22/2018 7:16 PM CDT [facility] BUN 15 7 - 21 mg/dL 02/22/2018 7:16 PM CDT [facility] Creatinine 0.78 0.50 - 1.30 mg/dL 02/22/2018 7:16 PM CDT [facility] Alkaline Phosphatase 92 38 - 126 U/L 02/22/2018 7:16 PM CDT [facility] ALT 11(L) 13 - 61 U/L 02/22/2018 7:16 PM CDT [facility] AST 15 5 - 40 U/L 02/22/2018 7:16 PM CDT [facility] Protein Total 7.4 6.4 - 8.2 gm/dL 02/22/2018 7:16 PM CDT [facility] Albumin 3.6 3.4 - 5.0 gm/dL 02/22/2018 7:16 PM CDT [facility] Bilirubin Total 0.8 0.2 - 1.0 mg/dL 02/22/2018 7:16 PM CDT [facility] eGFR by MDRD >60 >60 mL/min/1.7 3m2 02/22/2018 7:16 PM CDT [facility] eGFR by MDRD >60 >60 mL/min/1.7 3m2 02/22/2018 7:16 PM CDT [facility] Blood BLOOD SPECIMEN / Unknown Venipuncture / Unknown 02/22/2018 6:36 PM CDT 02/22/2018 7:01 PM CDT Junior Gutierrez MD LAB - CHEMISTRY LIZABETH WILEY [facility] Organization Address City/State/ZIP Co de Phone Number [facility] [address] [place] [address] * (ABNORMAL) CBC W AUTO [...] - 416 x10E9/L 02/22/2018 6:52 PM CDT [facility] RDW-CV 12.6 12.1 - 14.9 % 02/22/2018 6:52 PM CDT [facility] MPV 11.5 9.4 - 12.9 fl 02/22/2018 6:52 PM CDT [facility] Neutrophils % 62.1 44.0 - 73.0 % 02/22/2018 6:52 PM CDT [facility] Lymphocytes % 28.4 20.0 - 43.0 % 02/22/2018 6:52 PM CDT [facility] Monocytes % 7.0 5.0 - [...] - 3.94 x10E9/L 02/22/2018 6:52 PM CDT [facility] Monocytes Absolute 0.81 0.26 - 1.07 x10E9/L 02/22/2018 6:52 PM CDT [facility] Eosinophils Absolute 0.20 0 - 0.47 x10E9/L 02/22/2018 6:52 PM CDT [facility] Basophils Absolute 0.06 0 - 0.08 x10E9/L 02/22/2018 6:52 PM CDT [facility] Immature Granulocytes Absolute 0.03 0.00 - 0.06 x10E9/L 02/22/2018 6:52 PM CDT [facility] nRBC Auto 0 /100 WBC 02/22/2018 6:52 PM CDT [facility] Blood BLOOD SPECIMEN / Unknown Venipuncture / Unknown 02/22/2018 6:36 PM CDT 02/22/2018 6:48 PM CDT Junior Gutierrez MD LAB - HEMATOLOGY ORD ERABLES Performing Organization Address City/State/[facility] Co de Phone Number [facility] [address] [place] [phone] documented in this encounter Visit Diagnoses Diagnosis [...] David) documented in this encounter Care Teams Scenery Builder Relationship Specialty Start Date End Date Alf Khan DO PCP - General Family Medicine 09/03/13 02/27/23 documented as of this encounter
--- OUTSIDE RECORDS SUMMARY | 2024-09-06 23:58 | XMS_ITS | Encounter Summary ---
Author Organization [facility] Address [address] [place] [address] Care Team Providers Care Magneto Electrician Name Role Phone Alf Khan DO Primary Care Provider Stephan rosa Reason for Visit * Reason Onset Date Comments MEDICATION REFILL 05/17/2020 Encounter Details Date Type Department Care Team (Late st Contact Info) Description 05/17/2020 Refill [facility] - Family Medicine [address] [place] [address] Alf Khan, DO MEDICATION REFILL Social History Tobacco Use Types Packs/Day Years Used Date Smoking Tobacco: Every Day Cigarettes 1.5 25 Started: 12/07/1985; Last attempted to quit: 12/07/2010 Smokeless Tobacco: Never Alcohol Use Standard Drinks/Week Comments Yes 0 (1 standard drink = 0.6 oz pur e alcohol) social Sex and Gender Information Value Date Recorded Sex Assigned at Male 08/31/2020 7:44 AM COIL WRAPPER Gender Identity Male 08/31/2020 7:44 AM COIL WRAPPER Sexual Orientation Straight 08/31/2020 7: 44 AM COIL WRAPPER COVID-19 Exposure Response Date Recorded In the [...] on filedocumented in this encounter Care Teams Magneto Electrician Relationship Specialty Start Date End Date Alf Khan DO PCP - General Family Medicine 09/03/13 02/27/23 documented as of this encounter
--- OUTSIDE RECORDS SUMMARY | 2024-09-06 23:58 | XMS_ITS | Encounter Summary ---
Author Organization [facility] Address [address] [place] [address] Care Team Providers Care Diamond Blender Name Role Phone Alf Khan DO Primary Care Provider Stephan rosa Reason for Visit * Reason Comments Follow-up pt here for 3 month follow up for lumbar disc Medication Check pharmacy confirmed b y pt Encounter Details Date Type Department Care Team (Latest Contact Info) Description 12/24/2018 9:15 AM CDT Office Visit [facility] - Family Medicine [address] [place] [address] Alf Khan DO Degeneration of cervical intervertebral [...] Sex Assigned at Male 08/31/2020 7:44 AM PARAPROFESSIONAL EDUCATION ASSISTANT Gender Identity Male 08/31/2020 7:44 AM PARAPROFESSIONAL EDUCATION ASSISTANT Sexual Orientation Straight 08/31/2020 7: 44 AM PARAPROFESSIONAL EDUCATION ASSISTANT documented as of this encounter Last [...] 9:42 AM CDT Office Visit, Established Patient, [id number] HISTORY: SYDNEE Doughertydominique Crockett is a 53 [...] 59 106* The 10-year ASCVD risk score (Rheems TAMAR Jr, et al., 2013) is: 6.9% [...] spine documented in this encounter Care Teams Diamond Blender Relationship Specialty Start Date End Date Alf Khan DO PCP - General Family Medicine 09/03/13 02/27/23 documented as of this encounter
--- OUTSIDE RECORDS SUMMARY | 2024-09-06 23:58 | XMS_ITS | Encounter Summary ---
Author Organization [facility] Address [address] [address] Care Team Providers Care Solar Pv Installer Name Role Phone Alf Khan DO Primary Care Provider Stephan rosa Reason for Visit * Reason Comments Follow-up pt here for 1 month f/u Encounter Details Date Type Department Care Team (Latest Contact Info) Description 04/14/2019 10:45 AM CDT Office Visit [facility] - Family Medicine [address] [place] [address] Alf Khan DO Degeneration of lumbar or [...] Sex Assigned at Male 08/31/2020 7:44 AM DIVISION CHIEF Gender Identity Male 08/31/2020 7:44 AM DIVISION CHIEF Sexual Orientation Straight 08/31/2020 7: 44 AM DIVISION CHIEF documented as of this encounter Last Filed [...] 11:34 AM CDT Office Visit, Established Patient, [id number] HISTORY: SYDNEE Crockett is a 53 year [...] unspecified documented in this encounter Care Teams Solar Pv Installer Relationship Specialty Start Date End Date Alf Khan DO PCP - General Family Medicine 09/03/13 02/27/23 documented as of this encounter
--- OUTSIDE RECORDS SUMMARY | 2024-09-06 23:58 | XMS_ITS | Encounter Summary ---
Author Organization [facility] Address [address] [place] [address] Care Team Providers Care Data Center Engineer Name Role Phone Alf Khan DO Primary Care Provider Stephan rosa Reason for Visit * Reason Onset Date Comments Opened In Error 04/09/2017 Encounter Details Date Type Department Care Team (Late st Contact Info) Description 04/09/2017 Telephone [facility] - Family Medicine [address] [place] [address] Alf Khan DO Opened In Error Social History Tobacco Use Types Packs/Day Years Used Date Smoking Tobacco: Former Cigarettes 1.5 25 0 12/07/1985 - 12/07/2010 Smokeless Tobacco: Never Alcohol Use Standard Drinks/Week Comments Yes 0 (1 standard drink = 0.6 oz pur e alcohol) social Sex and Gender Information Value Date Recorded Sex Assigned at Male 08/31/2020 7:44 AM PRESS TENDER Gender Identity Male 08/31/2020 7:44 AM PRESS TENDER Sexual Orientation Straight 08/31/2020 7: 44 AM PRESS TENDER documented as of this encounter Functional Status [...] on filedocumented in this encounter Care Teams Data Center Engineer Relationship Specialty Start Date End Date Alf Khan DO PCP - General Family Medicine 09/03/13 02/27/23 documented as of this encounter
--- OUTSIDE RECORDS SUMMARY | 2024-09-06 23:58 | XMS_ITS | Encounter Summary ---
Author Organization [facility] Address [address] [place] [address] Care Team Providers Care Household Appliance Assembler Name Role Phone Alf Khan DO Primary Care Provider Stephan rosa Reason for Visit * Reason Onset Date Comments Medication Problem 04/17/2017 Encounter Details Date Type Department Care Team (Late st Contact Info) Description 04/17/2017 Telephone [facility] - Family [facility] [address] [place], [place] [phone] Alf Khan, DO Medication Problem Social History Tobacco Use Types Packs/Day Years Used Date Smoking Tobacco: Former Cigarettes 1.5 25 0 12/07/1985 - 12/07/2010 Smokeless Tobacco: Never Alcohol Use Standard Drinks/Week Comments Yes 0 (1 standard drink = 0.6 oz pur e alcohol) social Sex and Gender Information Value Date Recorded Sex Assigned at Male 08/31/2020 7:44 AM BINDERY MACHINE TENDER Gender Identity Male 08/31/2020 7:44 AM BINDERY MACHINE TENDER Sexual Orientation Straight 08/31/2020 7: 44 AM BINDERY MACHINE TENDER documented as of this encounter Functional [...] with 11 refills * Telephone Encounter - lFako Moreno - 04/17/2017 10:57 AM CDT Pharmacist [...] on filedocumented in this encounter Care Teams Household Appliance Assembler Relationship Specialty Start Date End Date Alf Khan DO PCP - General Family Medicine 09/03/13 02/27/23 documented as of this encounter
--- OUTSIDE RECORDS SUMMARY | 2024-09-06 23:58 | XMS_ITS | Encounter Summary ---
Author Organization [facility] Address [address] [place] [address] Care Team Providers Care Janitor Caretaker Name Role Phone Alf Khan DO Primary Care Provider Stephan rosa Reason for Visit * Auth/Cert Specialty Diagnoses / Procedures Referred By Jean sosa Referred To Contact Procedures INCISION AND DRAINAGE ABSCESS PERIRECTAL Referral ID Status Reason Start Date Expiration Date Visits Re quested Visits Authorized [id number] 1 1 Encounter Details Date Type Department Care Team (Latest Contact Info) Description 09/05/2017 1:58 PM BRAKE REPAIR SUPERVISOR - 09/05/2017 5:54 PM BRAKE REPAIR SUPERVISOR Hospital Encounter [facility] [address] [place] [address] [place] [address] [address] [place] [address] Surgery General Discharge Disposition: Home or Self Care Social History Tobacco Use Types Packs/Day Years Used Date Smoking Tobacco: Former Cigarettes 1.5 25 0 12/07/1985 - 12/07/2010 Smokeless Tobacco: Never Alcohol Use Standard Drinks/Week Comments Yes 0 (1 standard drink = 0.6 oz pur e alcohol) social Sex and Gender Information Value Date Recorded Sex Assigned at Male 08/31/2020 7:44 AM BRAKE REPAIR SUPERVISOR Gender Identity Male 08/31/2020 7:44 AM BRAKE REPAIR SUPERVISOR Sexual Orientation Straight 08/31/2020 7: 44 AM BRAKE REPAIR SUPERVISOR documented as of this encounter Last Filed Vital Signs Vital Sign Reading Time Taken Comments Blood Pressure 124/77 09/05/2017 4:30 PM BRAKE REPAIR SUPERVISOR Pulse 63 09/05/2017 4:30 PM BRAKE REPAIR SUPERVISOR Temperature 36.7 ??C (98 ??F) 09/05/2017 4:30 PM BRAKE REPAIR SUPERVISOR Respiratory Rate 16 09/05/2017 4:30 PM BRAKE REPAIR SUPERVISOR Oxygen Saturation 96% 09/05/2017 4:30 PM BRAKE REPAIR SUPERVISOR Inhaled Oxygen Concentration - - Weight 105.7 kg (233 lb) 09/05/2017 2:35 PM BRAKE REPAIR SUPERVISOR Height 180.3 cm (5' 11 ) 09/05/2017 2:35 PM BRAKE REPAIR SUPERVISOR Body Mass Index 32.5 09/05/2017 2:35 PM BRAKE REPAIR SUPERVISOR documented in this encounter Functional Status [...] needed Reported on 07/31/2016 05/12/2018 albuterol HFA (PROVENTIL;VENTOLIN;SC OAIR) 108 (90 BASE) MCG/ACT inhaler Inhale [...] ??? HERNIA REPAIR, VENTRAL ?? 06/03/2012 ??? [place] Tooth Extraction ? Outpatient Prescriptions Marked as [...] no c-pap ??? Unspecified essential hypertension ? E REPAIR SUPERVISOR documented in this encounter OR Notes * Operative - Donalod Sadler MD - 09/05/2017 5:54 PM CST [facility] OPERATIVE REPORT PATIENT: : LENNIE QUINTANILLA MR#: [id number] ADMIT DATE: 09/05/2017 CSN: [id number] DATE OF SURGERY: 09/05/2017 : 1965 PHYSICIAN: Donaldo Sadler MD ROOM: [facility] PREOP DIAGNOSIS: Perirectal abscess. POSTOP DIAGNOSIS: Perirectal [...] COMPLICATIONS: None. Donaldo Sadler MD TBC/MODL #: [id number] E REPAIR SUPERVISOR documented in this encounter Plan of Treatment Not on file documented as of this encounter Goals Goal Patient Goal Type Associated Problems Recent Progress Patient-Stated? Author Blood Pressure < 140/90 Blood Pressure 172/93(2022 8:59 AM CDT) No Zachary Moreno documented as of this encounter Procedures Procedure Name Priority Date/Time Associated Diagnosis Comments INCISION AND DRAINAGE ABSCESS RECTAL/PERIRECTAL 09/05/2017 3:01 PM BRAKE REPAIR SUPERVISOR documented in this encounter Visit Diagnoses Diagnosis [...] 1439, Pre-op $ Given 09/05/2017 2:40 PM BRAKE REPAIR SUPERVISOR 1,000 mg ceFAZolin (ANCEF) syringe 2,000 mg 2,000 mg (2 g), Intravenous, PRE-OP MULTIPLE, Starting on Althea 09/05/17 at 1439, Until Althea 09/05/17 at 1855, Administer 30 minutes prior to surgical incision. Repeat dose in 3 hours if surgical incision not closed. Administer over 3-5 minutes., Pre-op $ Given 09/05/2017 3:15 PM BRAKE REPAIR SUPERVISOR 2 g HYDROcodone-acetaminophen (NORCO) 5-325 MG tablet 1 tablet 1 tablet, Oral, ONCE PRN, Mild Pain, 1 dose, Starting on Althea 09/05/17 at 1645, Until Althea 09/05/17 at 1646, Maximum allowable Acetaminophen amount = 4 Grams (4000 mg) / 24 hours., Post-op $ Given 09/05/2017 4:46 PM BRAKE REPAIR SUPERVISOR 1 tablet lactated ringers infusion at 20 mL/hr, Intravenous, PRE-OP CONTINUOUS, Starting on Althea 09/05/17 at 1430, Until Althea 09/05/17 at 1855, Pre-op $ New Bag/Syringe 09/05/2017 2:31 PM BRAKE REPAIR SUPERVISOR lactated ringers infusion at 20 mL/hr, Intravenous, PRE-OP CONTINUOUS, Starting on Althea 09/05/17 at 1445, Until Althea 09/05/17 at 1855, Pre-op $ New Bag/Syringe 09/05/2017 2:40 PM BRAKE REPAIR SUPERVISOR 20 mL/hr oxyCODONE-acetaminophen (PERCOCET) 5-325 MG tablet 2 tablet 2 tablet, Oral, EVERY 4 HOURS PRN, Severe Pain, Starting on Althea 09/05/17 at 1645, Until Althea 09/05/17 at 1855, Post-op documented in this encounter Active and Recently Administered Medications Times are shown in BRAKE REPAIR SUPERVISOR. Scheduled Medication Order 09/03/2017 09/04/2017 09/05/2017 acetaminophen [...] ($ Given - Prov ider: Jace Dozier APRN-UNIVERSITY COUNSELOR) Continuous Medication Order 09/03/2017 09/04/2017 09/05/2017 lactated [...] Post-op documented in this encounter Care Teams Janitor Caretaker Relationship Specialty Start Date End Date Alf Khan DO PCP - General Family Medicine 09/03/13 02/27/23 documented as of this encounter
--- OUTSIDE RECORDS SUMMARY | 2024-09-06 23:58 | XMS_ITS | Encounter Summary ---
Author Organization [facility] Address [address] [place] [address] Care Team Providers Care Recovery Operator Name Role Phone Zaira Ramires DO Primary Care Provider Stephan rosa Reason for Visit * Reason Onset Date Comments MEDICATION REFILL 01/17/2017 Encounter Details Date Type Department Care Team (Late st Contact Info) Description 01/17/2017 Telephone [facility] - Family Medicine [address] [place], [place] [phone] Zaira Ramires, DO MEDICATION REFILL Social History Tobacco Use Types Packs/Day Years Used Date Smoking Tobacco: Former Cigarettes 1.5 25 0 12/07/1985 - 12/07/2010 Smokeless Tobacco: Never Alcohol Use Standard Drinks/Week Comments Yes 0 (1 standard drink = 0.6 oz pur e alcohol) social Sex and Gender Information Value Date Recorded Sex Assigned at Male 08/31/2020 7:44 AM REGIONAL EXTENSION SERVICE SPECIALIST Gender Identity Male 08/31/2020 7:44 AM REGIONAL EXTENSION SERVICE SPECIALIST Sexual Orientation Straight 08/31/2020 7: 44 AM REGIONAL EXTENSION SERVICE SPECIALIST documented as of this encounter Functional [...] on filedocumented in this encounter Care Teams Recovery Operator Relationship Specialty Start Date End Date Zaira Ramires DO PCP - General Family Medicine 09/03/13 02/27/23 documented as of this encounter
--- OUTSIDE RECORDS SUMMARY | 2024-09-06 23:58 | XMS_ITS | Encounter Summary ---
Author Organization [facility] Address [address] [facility] [place] [address] Care Team Providers Care Educational Program Assistant Name Role Phone Alf Khan DO [...] Sex Assigned at Male 08/31/2020 7:44 AM PATENT PROSECUTION PARALEGAL Gender Identity Male 08/31/2020 7:44 AM PATENT PROSECUTION PARALEGAL Sexual Orientation Straight 08/31/2020 7: 44 AM PATENT PROSECUTION PARALEGAL COVID-19 Exposure Response Date Recorded In the [...] on filedocumented in this encounter Care Teams Educational Program Assistant Relationship Specialty Start Date End Date Alf Khan DO PCP - General Family Medicine 09/03/13 02/27/23 documented as of this encounter
--- OUTSIDE RECORDS SUMMARY | 2024-09-06 23:58 | XMS_ITS | Encounter Summary ---
Author Organization [facility] Address [address] [place] [address] Care Team Providers Care Aviculturist Name Role Phone Alf Khan DO Primary Care Provider Stephan rosa Reason for Visit * Reason Onset Date Comments MEDICATION REFILL 12/11/2017 Encounter Details Date Type Department Care Team (Late st Contact Info) Description 12/11/2017 Refill [facility] - Family Medicine [address] [place] [address] Yana Gupta MEDICATION REFILL Social History Tobacco Use Types Packs/Day Years Used Date Smoking Tobacco: Former Cigarettes 1.5 25 0 12/07/1985 - 12/07/2010 Smokeless Tobacco: Never Alcohol Use Standard Drinks/Week Comments Yes 0 (1 standard drink = 0.6 oz pur e alcohol) social Sex and Gender Information Value Date Recorded Sex Assigned at Male 08/31/2020 7:44 AM SENIOR DATA MINING ANALYST Gender Identity Male 08/31/2020 7:44 AM SENIOR DATA MINING ANALYST Sexual Orientation Straight 08/31/2020 7: 44 AM SENIOR DATA MINING ANALYST COVID-19 Exposure Response Date Recorded In the [...] on filedocumented in this encounter Care Teams Aviculturist Relationship Specialty Start Date End Date Alf Khan DO PCP - General Family Medicine 09/03/13 02/27/23 documented as of this encounter
--- OUTSIDE RECORDS SUMMARY | 2024-09-06 23:58 | XMS_ITS | Encounter Summary ---
Author Organization [facility] Address [address] [place] [address] Care Team Providers Care Tubular Riveter Name Role Phone Alf Khan DO Primary Care Provider Stephna rosa Reason for Visit * Reason Onset Date Comments MEDICATION REFILL 12/18/2017 Encounter Details Date Type Department Care Team (Late st Contact Info) Description 12/18/2017 Refill [facility] - Family Medicine [address] [place] [address] Yana Gupta MEDICATION REFILL Social History Tobacco Use Types Packs/Day Years Used Date Smoking Tobacco: Former Cigarettes 1.5 25 0 12/07/1985 - 12/07/2010 Smokeless Tobacco: Never Alcohol Use Standard Drinks/Week Comments Yes 0 (1 standard drink = 0.6 oz pur e alcohol) social Sex and Gender Information Value Date Recorded Sex Assigned at Male 08/31/2020 7:44 AM HAIR BOILER OPERATOR Gender Identity Male 08/31/2020 7:44 AM HAIR BOILER OPERATOR Sexual Orientation Straight 08/31/2020 7: 44 AM HAIR BOILER OPERATOR documented as of this encounter Functional [...] on filedocumented in this encounter Care Teams Tubular Riveter Relationship Specialty Start Date End Date Alf Khan DO PCP - General Family Medicine 09/03/13 02/27/23 documented as of this encounter
--- OUTSIDE RECORDS SUMMARY | 2024-09-06 23:58 | XMS_ITS | Encounter Summary ---
Author Organization [facility] Address [address] [facility] [place] [address] Care Team Providers Care Supervisor Cigarette Making Department Name Role Phone Alf Khan DO Primary [...] Sex Assigned at Male 08/31/2020 7:44 AM EMPLOYMENT ASSISTANT Gender Identity Male 08/31/2020 7:44 AM EMPLOYMENT ASSISTANT Sexual Orientation Straight 08/31/2020 7: 44 AM EMPLOYMENT ASSISTANT COVID-19 Exposure Response Date Recorded In the [...] filedocumented in this encounter Care Teams Supervisor Cigarette Making Department Relationship Specialty Start Date End Date Alf Khan DO PCP - General Family Medicine 09/03/13 02/27/23 documented as of this encounter
--- OUTSIDE RECORDS SUMMARY | 2024-09-06 23:58 | XMS_ITS | Encounter Summary ---
Author Organization [facility] Address [address] [place] [address] Care Team Providers Care Manager College Name Role Phone Alf Khan DO Primary Care Provider Stephan rosa Reason for Visit * Reason Onset Date Comments Update 04/09/2017 Medication Issue 04/09/2017 Encounter Details Date Type Department Care Team (Late st Contact Info) Description 04/09/2017 Telephone [facility] - Family [facility] [address] [place] [address] Alf Khan DO Update; Medication Issue Social History Tobacco Use Types Packs/Day Years Used Date Smoking Tobacco: Former Cigarettes 1.5 25 0 12/07/1985 - 12/07/2010 Smokeless Tobacco: Never Alcohol Use Standard Drinks/Week Comments Yes 0 (1 standard drink = 0.6 oz pur e alcohol) social Sex and Gender Information Value Date Recorded Sex Assigned at Male 08/31/2020 7:44 AM TECHNICIAN SUBMARINE CABLE EQUIPMENT Gender Identity Male 08/31/2020 7:44 AM TECHNICIAN SUBMARINE CABLE EQUIPMENT Sexual Orientation Straight 08/31/2020 7: 44 AM TECHNICIAN SUBMARINE CABLE EQUIPMENT documented as of this encounter Functional Status [...] switch pharmacies. Please send new script to [facility] pharmacy due to cost. verifiedwith patient. * [...] on filedocumented in this encounter Care Teams Manager College Relationship Specialty Start Date End Date Alf Khan DO PCP - General Family Medicine 09/03/13 02/27/23 documented as of this encounter
--- OUTSIDE RECORDS SUMMARY | 2024-09-06 23:58 | XMS_ITS | Encounter Summary ---
Author Organization [facility] Address [address] [facility] [place] [address] Care Team Providers Care Belt Machine Operator Name Role Phone Alf Khan [...] Sex Assigned at Male 08/31/2020 7:44 AM PAINT STOCK CLERK Gender Identity Male 08/31/2020 7:44 AM PAINT STOCK CLERK Sexual Orientation Straight 08/31/2020 7: 44 AM PAINT STOCK CLERK COVID-19 Exposure Response Date Recorded In the [...] on filedocumented in this encounter Care Teams Belt Machine Operator Relationship Specialty Start Date End Date Alf Khan DO PCP - General Family Medicine 09/03/13 02/27/23 documented as of this encounter
--- OUTSIDE RECORDS SUMMARY | 2024-09-06 23:58 | XMS_ITS | Encounter Summary ---
Author Organization [facility] Address [address] [place] [address] Care Team Providers Care Eye Clinic Manager Name Role Phone Alf Khan DO Primary Care Provider Stephan rosa Reason for Visit * Reason Onset Date Comments MEDICATION REFILL 01/17/2017 Encounter Details Date Type Department Care Team (Late st Contact Info) Description 01/17/2017 Refill [facility] - Family Medicine [address] [place] [address] Alf Khan, DO MEDICATION REFILL Social History Tobacco Use Types Packs/Day Years Used Date Smoking Tobacco: Former Cigarettes 1.5 25 0 12/07/1985 - 12/07/2010 Smokeless Tobacco: Never Alcohol Use Standard Drinks/Week Comments Yes 0 (1 standard drink = 0.6 oz pur e alcohol) social Sex and Gender Information Value Date Recorded Sex Assigned at Male 08/31/2020 7:44 AM SNAP ATTACHER Gender Identity Male 08/31/2020 7:44 AM SNAP ATTACHER Sexual Orientation Straight 08/31/2020 7: 44 AM SNAP ATTACHER documented as of this encounter Functional Status [...] on filedocumented in this encounter Care Teams Eye Clinic Manager Relationship Specialty Start Date End Date Alf Khan DO PCP - General Family Medicine 09/03/13 02/27/23 documented as of this encounter
--- OUTSIDE RECORDS SUMMARY | 2024-09-06 23:58 | XMS_ITS | Encounter Summary ---
Author Organization [facility] Address [address] [place] [address] Care Team Providers Care Hand Cementer Name Role Phone Alf Khan DO Primary Care Provider Stephan rosa Reason for Visit * Reason Onset Date Comments Medication Prior Auth Request 05/23/2018 Encounter Details Date Type Department Care Team (Late st Contact Info) Description 05/23/2018 Telephone [facility] - Family Medicine [address] [place] [address] Alf Khan, DO Medication Prior Auth Request [...] Sex Assigned at Male 08/31/2020 7:44 AM TOSSER Gender Identity Male 08/31/2020 7:44 AM TOSSER Sexual Orientation Straight 08/31/2020 7: 44 AM TOSSER documented as of this encounter Functional Status [...] and is good from 05/27/18 - 05/27/19 [id number]. Pharmacy is aware. * Telephone Encounter - Liv Vasquez - 05/27/2018 2:01 PM CDT Received a denial letter from [place] for Hydrocodone-Acetaminophen 7.5-325 mg. States that the [...] has been put in review. Case EOC: [id number]. Waiting on determination. documented in this encounter Plan of Treatment Not on file documented as of this encounter Goals Goal Patient Goal Type Associated Problems Recent Progress Patient-Stated? Author Blood Pressure < 140/90 Blood Pressure 172/93(2022 8:59 AM CDT) No Zachary Moreno documented as of this encounter Visit Diagnoses Not on filedocumented in this encounter Care Teams Hand Cementer Relationship Specialty Start Date End Date Alf Khan DO PCP - General Family Medicine 09/03/13 02/27/23 documented as of this encounter
--- OUTSIDE RECORDS SUMMARY | 2024-09-06 23:58 | XMS_ITS | Encounter Summary ---
Author Organization [facility] Address [address] [place] [address] Care Team Providers Care Speech Lang Path Name Role Phone Alf Khan DO Primary Care Provider tSephan rosa Reason for Visit * Reason Onset Date Comments Opened In Error 12/03/2016 Encounter Details Date Type Department Care Team (Late st Contact Info) Description 12/03/2016 Refill [facility] - Family Medicine [address] [place] [address] Alf Khan DO Opened In Error Social History Tobacco Use Types Packs/Day Years Used Date Smoking Tobacco: Former Cigarettes 1.5 25 0 12/07/1985 - 12/07/2010 Smokeless Tobacco: Never Alcohol Use Standard Drinks/Week Comments Yes 0 (1 standard drink = 0.6 oz pur e alcohol) social Sex and Gender Information Value Date Recorded Sex Assigned at Male 08/31/2020 7:44 AM RAILWAY SIGNALLING ENGINEER Gender Identity Male 08/31/2020 7:44 AM RAILWAY SIGNALLING ENGINEER Sexual Orientation Straight 08/31/2020 7: 44 AM RAILWAY SIGNALLING ENGINEER documented as of this encounter Functional [...] on filedocumented in this encounter Care Teams Speech Lang Path Relationship Specialty Start Date End Date Alf Khan DO PCP - General Family Medicine 09/03/13 02/27/23 documented as of this encounter
--- OUTSIDE RECORDS SUMMARY | 2024-09-06 23:58 | XMS_ITS | Encounter Summary ---
Author Organization [facility] Address [address] [place] [address] Care Team Providers Care Degreasing Solution Mixer Name Role Phone Alf Khan DO Primary Care Provider Stephan rosa Pcp, Manuel Pérez Primary Care Provider Lori ailable Encounter Details Date Type Department Care Team (Late st Contact Info) Description 09/05/2017 [facility] Outpatient Visit [facility] [address] [place] [address] [place] [address] [address] Social History Tobacco Use Types Packs/Day Years Used Date Smoking Tobacco: Former Cigarettes 1.5 25 0 12/07/1985 - 12/07/2010 Smokeless Tobacco: Never Alcohol Use Standard Drinks/Week Comments Yes 0 (1 standard drink = 0.6 oz pur e alcohol) social Sex and Gender Information Value Date Recorded Sex Assigned at Male 08/31/2020 7:44 AM PERFORMANCE MANAGER Gender Identity Male 08/31/2020 7:44 AM PERFORMANCE MANAGER Sexual Orientation Straight 08/31/2020 7: 44 AM PERFORMANCE MANAGER documented as of this encounter Functional [...] on filedocumented in this encounter Care Teams Degreasing Solution Mixer Relationship Specialty Start Date End Date Alf Khan DO PCP - General Family Medicine 09/03/13 02/27/23 PcpManuel PCP - General 02/28/23 documented as of this encounter
--- OUTSIDE RECORDS SUMMARY | 2024-09-06 23:58 | XMS_ITS | Encounter Summary ---
Author Organization [facility] Address [address] [place] [address] Care Team Providers Care Aircraft Instrument Engineer Name Role Phone Alf Khan DO Primary Care Provider Stephan rosa Reason for Visit * Reason Comments Pain Back pt c/o ongoing pinch nerve that's causing back pain Medication Check pharmacy confirmed w ith pt Encounter Details Date Type Department Care Team (Late st Contact Info) Description 11/19/2017 2:00 PM CDT Office Visit [facility] - Family Medicine [address] [place] [address] Alf Khan DO Cervical stenosis of spine [...] Sex Assigned at Male 08/31/2020 7:44 AM STOCK CONTROLLER Gender Identity Male 08/31/2020 7:44 AM STOCK CONTROLLER Sexual Orientation Straight 08/31/2020 7: 44 AM STOCK CONTROLLER documented as of this encounter Last Filed [...] about your medicines. ??? Do not take ueee-apy-absfgze medicine or herbal supplements without talking to [...] Where can I go for more information? Citizen [place] Heart Association National Center: http://www.americanheart.org 1. In the top header, click ???Conditions?? . 2. In the top header, click ???high blood pressure.?? 3. For a printable blood pressure tracker, scroll toward the bottom of the page to Related Tools, and click ???HBP Trackers.?? 3-448-LAC-[place]-1 or ( ) National Heart, Lung and Blood [place]: http://www.nhlbi.nih.gov/health/infoctr/index.htm documented in this encounter Progress Notes * Puja Raymundo - 11/19/2017 2:39 PM CDT Depo medrol 80mg 1ml Im given with dexamethasone 4mg 1ml Imleft deltoid by jonas * Alf Khan DO - 11/19/2017 2:17 PM CDT Office Visit, Established Patient, [id number] HISTORY: CC Trenton Crockett is a 51 [...] Deltoid documented in this encounter Care Teams Aircraft Instrument Engineer Relationship Specialty Start Date End Date Alf Khan DO PCP - General Family Medicine 09/03/13 02/27/23 documented as of this encounter
--- OUTSIDE RECORDS SUMMARY | 2024-09-06 23:58 | XMS_ITS | Encounter Summary ---
Author Organization [facility] Address [address] [place] [address] Care Team Providers Care Can Stacker Name Role Phone Alf Khan DO Primary Care Provider Stephan rosa Reason for Visit * Reason Comments URI Pt here for chest, n elvira congestion, and runny nose for 1 day. Pt states engery being low. Encounter Details Date Type Department Care Team (Late st Contact Info) Description 04/23/2019 4:30 PM CDT Office Visit [facility] - Family Medicine [address] [place] [address] Alf Khan DO Acute URI (Primary Dx); [...] Assigned at Male 08/31/2020 7:44 AM FOOD MIXER Gender Identity Male 08/31/2020 7:44 AM FOOD MIXER Sexual Orientation Straight 08/31/2020 7: 44 AM FOOD MIXER documented as of this encounter Last Filed [...] 4:55 PM CDT Office Visit, Established Patient, [id number] HISTORY: SYDNEE Trenton Crockett is a 53 [...] fatigue documented in this encounter Care Teams Can Stacker Relationship Specialty Start Date End Date Alf Khan DO PCP - General Family Medicine 09/03/13 02/27/23 documented as of this encounter
--- OUTSIDE RECORDS SUMMARY | 2024-09-06 23:58 | XMS_ITS | Encounter Summary ---
Author Organization [facility] Address [address] [place] [address] Care Team Providers Care Project Internship Name Role Phone Alf Khan DO Primary Care Provider Stephan rosa Reason for Visit * Reason Comments Refill Request Encounter Details Date Type Department Care Team (Late st Contact Info) Description 12/18/2017 Refill [facility] - Family Medicine [address] [place] [address] Alf Khan, DO Refill Request Social History Tobacco Use Types Packs/Day Years Used Date Smoking Tobacco: Former Cigarettes 1.5 25 0 12/07/1985 - 12/07/2010 Smokeless Tobacco: Never Alcohol Use Standard Drinks/Week Comments Yes 0 (1 standard drink = 0.6 oz pur e alcohol) social Sex and Gender Information Value Date Recorded Sex Assigned at Male 08/31/2020 7:44 AM COLLEGE INTERN Gender Identity Male 08/31/2020 7:44 AM COLLEGE INTERN Sexual Orientation Straight 08/31/2020 7: 44 AM COLLEGE INTERN documented as of this encounter Functional Status [...] on filedocumented in this encounter Care Teams Project Internship Relationship Specialty Start Date End Date Alf Khan DO PCP - General Family Medicine 09/03/13 02/27/23 documented as of this encounter
--- OUTSIDE RECORDS SUMMARY | 2024-09-06 23:58 | XMS_ITS | Encounter Summary ---
Author Organization [facility] Address [address] [address] Care Team Providers Care Millinery Department Manager Name Role Phone Alf Khan DO Primary Care Provider Stephan rosa Reason for Visit * Reason Onset Date Comments Erroneous encounter-disregard 04/09/2017 Encounter Details Date Type Department Care Team (Late st Contact Info) Description 04/09/2017 Telephone [facility] - Family Medicine [address] [place] [address] Alf Khan DO Erroneous encounter-disregard Social History Tobacco Use Types Packs/Day Years Used Date Smoking Tobacco: Former Cigarettes 1.5 25 0 12/07/1985 - 12/07/2010 Smokeless Tobacco: Never Alcohol Use Standard Drinks/Week Comments Yes 0 (1 standard drink = 0.6 oz pur e alcohol) social Sex and Gender Information Value Date Recorded Sex Assigned at Male 08/31/2020 7:44 AM DIRECTOR OF NURSING Gender Identity Male 08/31/2020 7:44 AM DIRECTOR OF NURSING Sexual Orientation Straight 08/31/2020 7: 44 AM DIRECTOR OF NURSING documented as of this encounter Functional Status [...] on filedocumented in this encounter Care Teams Millinery Department Manager Relationship Specialty Start Date End Date Alf Khan DO PCP - General Family Medicine 09/03/13 02/27/23 documented as of this encounter
--- OUTSIDE RECORDS SUMMARY | 2024-09-06 23:58 | XMS_ITS | Encounter Summary ---
Author Organization [facility] Address [address] [facility] [place] [address] Care Team Providers Care Sap Analyst Name Role Phone Alf Khan DO [...] Assigned at Male 08/31/2020 7:44 AM CHEESE COOK Gender Identity Male 08/31/2020 7:44 AM CHEESE COOK Sexual Orientation Straight 08/31/2020 7: 44 AM CHEESE COOK COVID-19 Exposure Response Date Recorded In the [...] on filedocumented in this encounter Care Teams Sap Analyst Relationship Specialty Start Date End Date Alf Khan DO PCP - General Family Medicine 09/03/13 02/27/23 documented as of this encounter
--- OUTSIDE RECORDS SUMMARY | 2024-09-06 23:58 | XMS_ITS | Encounter Summary ---
Author Organization [facility] Address [address] [place] [address] Care Team Providers Care [employer] Compliance Internship Name Role Phone Alf Khan DO Primary Care Provider Stephan rosa Reason for Visit * Reason Comments Complete Physical Exam pt for yearly exa m Medication Check pharmacy confirmed w ith pt Encounter Details Date Type Department Care Team (Latest Contact Info) Description 06/01/2020 4:00 PM CDT Office Visit [facility] - Family Medicine [address] [place] [address] Alf Khan DO Degeneration of lumbar or [...] Sex Assigned at Male 08/31/2020 7:44 AM STONE OPERATOR Gender Identity Male 08/31/2020 7:44 AM STONE OPERATOR Sexual Orientation Straight 08/31/2020 7: 44 AM STONE OPERATOR COVID-19 Exposure Response Date Recorded In [...] 4:38 PM CDT Office Visit, Established Patient, [id number] HISTORY: SYDNEE Trenton Crockett is a 54 year old male patient, here for: Chief Complaint Patient presents with ??? Complete Physical Exam pt for yearly exam ??? Medication Check pharmacy confirmed with pt HPI: Pt here today for evaluation of back pain and to get meds refilled. Patient had been taking [place] 7.5's for his back pain in the [...] Counseled the patient on smoking cessation, Chantix, kboq-ujf-trsoeno nicotine replacement systems patches and gums. Told them the risks of smoking include lung cancer, bladder cancer, COPD, mi and stroke. They have to be involved in the smokingcessation program or it will not succeed. In other words I cannot make someone quit smoking they have to want to quit smoking. I can give you Chantix and advice on the eobm-wcd-raclxkd nicotine systems and I would suggest to [...] X documented in this encounter Care Teams [employer] Compliance Internship Relationship Specialty Start Date End Date Alf Khan DO PCP - General Family Medicine 09/03/13 02/27/23 documented as of this encounter
--- OUTSIDE RECORDS SUMMARY | 2024-09-06 23:58 | XMS_ITS | Encounter Summary ---
Author Organization [facility] Address [address] [place] [address] Care Team Providers Care Mold Preparer Name Role Phone Alf Khan DO Primary Care Provider Stephan rosa Reason for Visit * Reason Comments Follow-up patient here today f or 6 months follow up MEDICATION REFILL patient requesting m edication refill Encounter Details Date Type Department Care Team (Latest Contact Info) Description 01/22/2017 3:30 PM CDT Office Visit [facility] - Family Medicine [address] [place] [address] Alf Khan DO Annual physical exam (Primary [...] Sex Assigned at Male 08/31/2020 7:44 AM FAIRING WORKER Gender Identity Male 08/31/2020 7:44 AM FAIRING WORKER Sexual Orientation Straight 08/31/2020 7: 44 AM FAIRING WORKER documented as of this encounter Last [...] Where can I go for more information? [employer] [employer] National Center: http://www.americanheart.org 1. In the top header, click ???Conditions?? . 2. In the top header, click ???high blood pressure.?? 3. For a printable blood pressure tracker, scroll toward the bottom of the page to Related Tools, and click ???HBP Trackers.?? 9-191-EXL-USA-1 or ( ) National Heart, Lung and Blood [place]: http://www.nhlbi.nih.gov/health/infoctr/index.htm documented in this encounter Progress Notes [...] 3:43 PM CDT Office Visit, Established [place], [id number] HISTORY: SYDNEE Crockett is a 51 y.o. [...] visit here. He just had an eye manager support as his sister in law just had [...] AM CDT 04/08/2017 Narrative Resulting Agency [facility] [address] ??[place] [phone] Alf Khan DO LAB - URINE CHEMISTR Y ORDERABLES [facility] ACCOUNT BILL [address] [place] [address] * TSH (04/08/2017 10:55 AM CDT) Pathologist [facility] TSH 1.14 0.358 - 3.740 uIU/mL [facility] ACCOUNT BILL Blood BLOOD SPECIMEN / Unknown 04/08/2017 10:55 AM CDT 04/08/2017 Narrative Resulting Agency Comment [facility] [address] ??[place] [id number] Alf Khan DO LAB - CHEMISTRY ORDE RABLES [facility] ACCOUNT BILL [address] [place] [address] * HEMOGLOBIN A1C (04/08/2017 10:55 AM CDT) Hemoglobin A1c 5.3 4.2 - 6.3 % [facility] ACCOUNT BILL Comment:AVERAGE GLUCOSE MG/D L BLOOD 105 mg/dL Whole Blood BLOOD SPECIMEN WITH EDTA / Unknown 04/08/2017 10:55 AM CDT 04/08/2017 Narrative Resulting Agency Comment [place] [address] ??[place] [phone] Alf Khan DO LAB - CHEMISTRY ORDE INEZ Performing Organization Address [facility] Co de Phone Number [facility] ACCOUNT BILL [address] [place] [address] * (ABNORMAL) LIPID PROFILE W TCHOL/HDL (04/08/2017 10:55 AM CDT) Cholesterol 165 <200 mg/dL [facility] ACCOUNT BILL Triglycerides 177(H) <150 mg/dL [facility] ACCOUNT BILL HDL Cholesterol 47 >40 mg/dL [facility] ACCOUNT BILL VLDL Calculated 35(H) <=30 mg/dL [facility] ACCOUNT BILL LDL Calculated 83 <130 mg/dL [facility] ACCOUNT BILL Comment:LDL/HDL RATIO BLOOD ([facility]) 1.8 <5.0 Cholesterol/HDL Ratio 3.5 <4.5 [facility] ACCOUNT BILL Blood BLOOD SPECIMEN / Unknown 04/08/2017 10:55 AM CDT 04/08/2017 Narrative Resulting Agency Comment [place] [address] ??[place] [phone] Alf Khan LAB - CHEMISTRY ELIZAEcho LAMRAMON Performing Organization Address [facility] Co de Phone Number [facility] ACCOUNT BILL [address] [place] [address] * COMPREHENSIVE METABOLIC PANEL (04/08/2017 10:55 AM [...] AM CDT 04/08/2017 Narrative Resulting Agency Comment [facility] [address] ??[facility] [phone] Alf Khan DO LAB - CHEMISTRY LIZABETH WILEY [facility] ACCOUNT BILL [address] [place] [address] * CBC W AUTO DIFFERENTIAL (04/08/2017 10:55 [...] x10E9/L [facility] ACCOUNT BILL Comment:BENIGNOV FL BLOOD ([facility]) 1 3.1 fl 9.4-12.9 H Granulocytes % [...] AM CDT 04/08/2017 Narrative Resulting Agency Comment [facility] [id number] [place] [address] Dr ??[facility] [phone] Alf Khan DO LAB - HEMATOLOGY ORD [facility] Organization Address City/State/ZIP Co de Phone Number [facility] ACCOUNT BILL [address] [place] [address] * VITAMIN D 25-HYDROXY (04/08/2017 10:54 AM CDT) Vitamin D, 25 Hydroxy 38.29 30 - 100 ng/mL [facility] ACCOUNT BILL Comment: Vitamin D Status: ?Deficiency ? <20 ? ng/mL ?Insufficiency ?? 20-30 ??ng/mL ?Sufficiency ? 30-100 ng/mL ?Toxicity ? >100 ?ng/mL Blood BLOOD SPECIMEN / Unknown 04/08/2017 10:54 AM CDT 04/08/2017 Narrative Resulting Agency Comment [facility] [address] ??[facility] [phone] Alf Khan DO LAB - CHEMISTRY LIZABETH WILEY [facility] ACCOUNT BILL [address] [place] [address] * (ABNORMAL) URINALYSIS MICROSCOPIC ONLY REFLEXED (04/08/2017 [...] CDT 04/08/2017 Narrative Resulting Agency Comment [facility] [address] [facility] ??[facility] [phone] Alf Khan DO LAB - URINALYSIS ORD ERABLES Performing Organization Address City/[facility]/ZIP Co de Phone Number [facility] ACCOUNT BILL [address] [place] [address] * URINALYSIS ROUTINE W/REFLEX TO CULTURE (04/08/2017 10:52 AM CDT) Specific Urich UA 1.021 1.005 - 1.030 [facility] ACCOUNT [...] CDT 04/08/2017 Narrative Resulting Agency Comment [facility] [address] ??[facility] [phone] Alf Khan DO LAB - URINALYSIS ORD ERABLES Performing Organization Address City/[facility]/ZIP Co de Phone Number [facility] ACCOUNT BILL [address] [place] [address] documented in this encounter Visit Diagnoses Diagnosis Annual physical exam- Primary Routine general medical examination at a health care facility HTN (hypertension), benign Essential hypertension, benign Mixed hyperlipidemia Hepatic steatosis 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
--- OUTSIDE RECORDS SUMMARY | 2024-09-06 23:59 | XMS_ITS | Encounter Summary ---
Author Organization [facility] Address [address] [facility] [place] [address] Care Team Providers Care Rn Camp Name Role Phone Unavailable Primary Care Provider Unavailabl e Reason for Referral * - Closed Specialty Diagnoses / Procedures Referred By Jean sosa Referred To Contact Diagnoses Urinary frequency Jose Rust DO [address] [place] [address] Malick Osman MD [address] [address] Referral ID Status Reason Start Date Expiration Date Visits Re quested Visits Authorized [id number] Closed 09/04/2011 03/02/2012 1 1 Y COUNTER Reason for Visit * Reason Comments Hypertension [...] st Contact Info) Description 09/04/2011 8:30 AM MONEY COUNTER Office Visit [facility] Medical [facility] - Family Medicine [address] [place] [address] Jose Rust DO [address] [place] [address] HTN (hypertension), benign (Primary Dx); [...] Sex Assigned at Male 08/31/2020 7:44 AM MONEY COUNTER Gender Identity Male 08/31/2020 7:44 AM MONEY COUNTER Sexual Orientation Straight 08/31/2020 7: 44 AM MONEY COUNTER documented as of this encounter Last Filed Vital Signs Vital Sign Reading Time Taken Comments Blood Pressure 162/96 09/04/2011 8:37 AM MONEY COUNTER Pulse 82 09/04/2011 8:37 AM MONEY COUNTER Temperature - - Respiratory Rate - - Oxygen Saturation - - Inhaled Oxygen Concentration - - Weight 113.4 kg (250 lb) 09/04/2011 8:37 AM MONEY COUNTER Height 179.1 cm (5' 10.5 ) 09/04/2011 8:37 AM CS T Body Mass Index 35.36 09/04/2011 8:37 AM MONEY COUNTER documented in this encounter Progress Notes * Jose Rust, - 09/04/2011 9:05 AM CST Office Visit, Established Patient, [id number] HISTORY: (4+ elements or 3+ chronic) CC [...] dorsal spine, lumbar spine with good results. Y COUNTER documented in this encounter Plan of Treatment [...]
--- OUTSIDE RECORDS SUMMARY | 2024-09-06 23:59 | XMS_ITS | Encounter Summary ---
Author Organization [facility] Health Address [address] [place] [address] Care Team Providers Care Air Quality Consultant Name Role Phone Alf Khan DO Primary Care Provider Stephan rosa Encounter Details Date Type Department Care Team (Late st Contact Info) Description 11/05/2014 Orders Only [facility] Medical [facility] - Family Medicine [address] [place] [address] Alf Khan DO Radicular pain in left arm Social History Tobacco Use Types Packs/Day Years Used Date Smoking Tobacco: Former Cigarettes 1.5 25 0 12/07/1985 - 12/07/2010 Smokeless Tobacco: Never Alcohol Use Standard Drinks/Week Comments Yes 0 (1 standard drink = 0.6 oz pur e alcohol) social Sex and Gender Information Value Date Recorded Sex Assigned at Male 08/31/2020 7:44 AM DIGITAL ADVERTISING ANALYST Gender Identity Male 08/31/2020 7:44 AM DIGITAL ADVERTISING ANALYST Sexual Orientation Straight 08/31/2020 7: 44 AM DIGITAL ADVERTISING ANALYST documented as of this encounter Functional [...] unspecified documented in this encounter Care Teams Air Quality Consultant Relationship Specialty Start Date End Date Alf Khan DO PCP - General Family Medicine 09/03/13 02/27/23 documented as of this encounter
--- OUTSIDE RECORDS SUMMARY | 2024-09-06 23:59 | XMS_ITS | Encounter Summary ---
Author Organization [facility] Health Address [address] [place] [address] Care Team Providers Care Internal Investigator Name Role Phone Alf Khan DO Primary Care Provider Stephan rosa Encounter Details Date Type Department Care Team (Latest Contact Info) Description 01/28/2015 8:56 AM CDT - 01/28/2015 11:59 PM CDT Hospital Encounter [facility] Health Urgent Care [address] [place] [address] Alf Khan DO Discharge Disposition: Home or Self Care Social History Tobacco Use Types Packs/Day Years Used Date Smoking Tobacco: Former Cigarettes 1.5 25 0 12/07/1985 - 12/07/2010 Smokeless Tobacco: Never Alcohol Use Standard Drinks/Week Comments Yes 0 (1 standard drink = 0.6 oz pur e alcohol) social Sex and Gender Information Value Date Recorded Sex Assigned at Male 08/31/2020 7:44 AM NURSE TECHNICIAN Gender Identity Male 08/31/2020 7:44 AM NURSE TECHNICIAN Sexual Orientation Straight 08/31/2020 7: 44 AM NURSE TECHNICIAN documented as of this encounter Functional Status [...] Cervicalgia documented in this encounter Care Teams Internal Investigator Relationship Specialty Start Date End Date Alf Khan DO PCP - General Family Medicine 09/03/13 02/27/23 documented as of this encounter
--- OUTSIDE RECORDS SUMMARY | 2024-09-06 23:59 | XMS_ITS | Encounter Summary ---
Author Organization [facility] Health Address [address] [place] [address] Care Team Providers Care Sediment Remediation Consultant Name Role Phone Alf Khan DO Primary Care Provider Stephan rosa Reason for Visit * Reason Comments Refill Request Encounter Details Date Type Department Care Team (Late st Contact Info) Description 10/19/2015 Refill [facility] Medical [facility] - Family Medicine [address] [place] [address] Alf Khan, DO Refill Request Social History Tobacco Use Types Packs/Day Years Used Date Smoking Tobacco: Former Cigarettes 1.5 25 0 12/07/1985 - 12/07/2010 Smokeless Tobacco: Never Alcohol Use Standard Drinks/Week Comments Yes 0 (1 standard drink = 0.6 oz pur e alcohol) social Sex and Gender Information Value Date Recorded Sex Assigned at Male 08/31/2020 7:44 AM GRAPE CRUSHER Gender Identity Male 08/31/2020 7:44 AM GRAPE CRUSHER Sexual Orientation Straight 08/31/2020 7: 44 AM GRAPE CRUSHER documented as of this encounter Functional Status [...] TABLET BY MOUTH EVERY DAY MARTÍNEZ 10/13/15 E CRUSHER documented in this encounter Plan of Treatment Not on file documented as of this encounter Goals Goal Patient Goal Type Associated Problems Recent Progress Patient-Stated? Author Blood Pressure < 140/90 Blood Pressure 172/93(2022 8:59 AM CDT) No Zachary Moreno documented as of this encounter Visit Diagnoses Not on filedocumented in this encounter Care Teams Sediment Remediation Consultant Relationship Specialty Start Date End Date Alf Khan DO PCP - General Family Medicine 09/03/13 02/27/23 documented as of this encounter
--- OUTSIDE RECORDS SUMMARY | 2024-09-06 23:59 | XMS_ITS | Encounter Summary ---
Author Organization [facility] Address [address] [place] [address] Care Team Providers Care Senior Oracle Adf Developer Name Role Phone Alf Khan DO Primary Care Provider Stephan rosa Reason for Visit * Reason Onset Date Comments Medication Request 07/09/2014 Encounter Details Date Type Department Care Team (Late st Contact Info) Description 07/09/2014 Telephone [facility] - Family [facility] [address] [place] [address] Alf Khan, DO Medication Request Social History Tobacco Use Types Packs/Day Years Used Date Smoking Tobacco: Former Cigarettes 1.5 25 0 12/07/1985 - 12/07/2010 Smokeless Tobacco: Never Alcohol Use Standard Drinks/Week Comments Yes 0 (1 standard drink = 0.6 oz pur e alcohol) social Sex and Gender Information Value Date Recorded Sex Assigned at Male 08/31/2020 7:44 AM AUTOMATIC TIRE TESTER Gender Identity Male 08/31/2020 7:44 AM AUTOMATIC TIRE TESTER Sexual Orientation Straight 08/31/2020 7: 44 AM AUTOMATIC TIRE TESTER documented as of this encounter Functional [...] Cinthia Brar MA - 07/09/2014 3:26 PM AUTOMATIC TIRE TESTER Patient's informed. MATIC TIRE TESTER * Telephone Encounter - Alf Khan DO [...] days when sick I have no magic MATIC TIRE TESTER * Telephone Encounter - Cinthia Brar MA - 07/09/2014 10:14 AM AUTOMATIC TIRE TESTER Patient's called and requesting a medication to be called out for Patient. Patient C/o; ear pain, cough, sinus pressure, off and on headache x 3 days. Denies; nausea, fever, diarrhea, abd pain, chills and body aches Patient has been taking OTC, Mucinex and Ibuprofen. Allergies Allergen Reactions ??? Perry Inhibitors Cough Please advise. MATIC TIRE TESTER documented in this encounter Plan of Treatment Not on file documented as of this encounter Goals Goal Patient Goal Type Associated Problems Recent Progress Patient-Stated? Author Blood Pressure < 140/90 Blood Pressure 172/93(2022 8:59 AM CDT) No Zachary Moreno documented as of this encounter Visit Diagnoses Not on filedocumented in this encounter Care Teams Senior Oracle Adf Developer Relationship Specialty Start Date End Date Alf Khan DO PCP - General Family Medicine 09/03/13 02/27/23 documented as of this encounter
--- OUTSIDE RECORDS SUMMARY | 2024-09-06 23:59 | XMS_ITS | Encounter Summary ---
Author Organization [facility] Address [address] [place] [address] Care Team Providers Care Marriage Counselor Name Role Phone Unavailable Primary Care Provider Unavailabl e Reason for Visit * Reason Onset Date Comments MEDICATION REFILL 01/04/2012 Encounter Details Date Type Department Care Team (Late st Contact Info) Description 01/04/2012 Refill [facility] Medical [facility] - Family Medicine [address] [place] [address] Jose Rust DO [address] [place] [address] MEDICATION REFILL Social History Tobacco Use Types Packs/Day Years Used Date Smoking Tobacco: Former Cigarettes Q uit: 12/07/2010 Smokeless Tobacco: Never Alcohol Use Standard Drinks/Week Comments Not Asked 0 (1 standard drink = 0.6 oz pur e alcohol) Sex and Gender Information Value Date Recorded Sex Assigned at Male 08/31/2020 7:44 AM POT LINER Gender Identity Male 08/31/2020 7:44 AM POT LINER Sexual Orientation Straight 08/31/2020 7: 44 AM POT LINER documented as of this encounter Miscellaneous Notes [...]
--- OUTSIDE RECORDS SUMMARY | 2024-09-06 23:59 | XMS_ITS | Encounter Summary ---
Author Organization [facility] Health Address [address] [place] [address] Care Team Providers Care Oracle Soa Developer Name Role Phone Alf Khan DO Primary Care Provider Stephan rosa Reason for Visit * Reason Comments Refill Request Encounter Details Date Type Department Care Team (Late st Contact Info) Description 03/02/2015 Refill [facility] Medical [facility] - Family Medicine [address] [place] [address] Alf Khan, DO Refill Request Social History Tobacco Use Types Packs/Day Years Used Date Smoking Tobacco: Former Cigarettes 1.5 25 0 12/07/1985 - 12/07/2010 Smokeless Tobacco: Never Alcohol Use Standard Drinks/Week Comments Yes 0 (1 standard drink = 0.6 oz pur e alcohol) social Sex and Gender Information Value Date Recorded Sex Assigned at Male 08/31/2020 7:44 AM ASSET ANALYST Gender Identity Male 08/31/2020 7:44 AM ASSET ANALYST Sexual Orientation Straight 08/31/2020 7: 44 AM ASSET ANALYST documented as of this encounter Functional [...] on filedocumented in this encounter Care Teams Oracle Soa Developer Relationship Specialty Start Date End Date Alf Khan DO PCP - General Family Medicine 09/03/13 02/27/23 documented as of this encounter
--- OUTSIDE RECORDS SUMMARY | 2024-09-06 23:59 | XMS_ITS | Encounter Summary ---
Author Organization [facility] Address [address] [place] [address] Care Team Providers Care Beer Runner Name Role Phone Alf Khan DO Primary Care Provider Stephan rosa Reason for Visit * Reason Comments Follow-up patient here today c ont to have ongoing back pain Med Question patient has medicati on regarding taking the hydrocodone and gabepentin together Encounter Details Date Type Department Care Team (Latest Contact Info) Description 11/15/2014 2:15 PM CDT Office Visit [facility] - Family Medicine [address] [place] [address] Alf Khan DO Radicular pain in left [...] Sex Assigned at Male 08/31/2020 7:44 AM EVICTION SPECIALIST Gender Identity Male 08/31/2020 7:44 AM EVICTION SPECIALIST Sexual Orientation Straight 08/31/2020 7: 44 AM EVICTION SPECIALIST documented as of this encounter Last [...] about your medicines. ??? Do not take mess-nwk-evtffyf medicine or herbal supplements without talking to [...] to Related Tools, and click ???HBP Trackers.?? 4-302-ELY-USA-1 or ( ) National Heart, Lung and Blood [place]: http://www.nhlbi.nih.gov/health/infoctr/index.htm documented in this encounter Progress Notes * Alf Khan, - 11/15/2014 2:46 PM CDT Office Visit, Established Patient, [id number] HISTORY: CC & HPI: Trenton Crockett is [...] (LUTS) documented in this encounter Care Teams Beer Runner Relationship Specialty Start Date End Date Alf Khan DO PCP - General Family Medicine 09/03/13 02/27/23 documented as of this encounter
--- OUTSIDE RECORDS SUMMARY | 2024-09-06 23:59 | XMS_ITS | Encounter Summary ---
Author Organization [facility] Health Address [address] [facility] [place] [address] Care Team Providers Care Driver Name Role Phone Alf Khan DO Primary Care Provider Stephan rosa Reason for Referral * Radiology Services - Closed Specialty Diagnoses / Procedures Referred By Jean sosa Referred To Contact Diagnoses Abdominal pain, RUQ (right upper quadrant) Nausea alone Procedures US ABDOMEN LIMITED Alf Khan DO [address] [place] [place] [address] Referral ID Status Reason Start Date Expiration Date Visits Re quested Visits Authorized [id number] Closed 04/05/2014 10/02/2014 1 1 Reason for Visit * Radiology Services - Closed Specialty Diagnoses / Procedures Referred By Jean sosa Referred To Contact Diagnoses Abdominal pain, RUQ (right upper quadrant) Nausea alone Procedures US ABDOMEN LIMITED Alf Khan DO [address] [place] [place] [address] Referral ID Status Reason Start Date Expiration Date Visits Re quested Visits Authorized [id number] Closed 04/05/2014 10/02/2014 1 1 Encounter Details Date Type Department Care Team (Latest Contact Info) Description 04/08/2014 8:20 AM CDT - 04/08/2014 11:59 PM CDT Hospital Encounter [facility] Health Imaging Services - Ultrasound [address] [place] [address] Alf Khan DO Discharge Disposition: Home or Self Care Social History Tobacco Use Types Packs/Day Years Used Date Smoking Tobacco: Former Cigarettes 1.5 25 0 12/07/1985 - 12/07/2010 Smokeless Tobacco: Never Alcohol Use Standard Drinks/Week Comments Yes 0 (1 standard drink = 0.6 oz pur e alcohol) Sex and Gender Information Value Date Recorded Sex Assigned at Male 08/31/2020 7:44 AM BLOW DOWN HELPER Gender Identity Male 08/31/2020 7:44 AM BLOW DOWN HELPER Sexual Orientation Straight 08/31/2020 7: 44 AM BLOW DOWN HELPER documented as of this encounter Medications at [...] alone documented in this encounter Care Teams Driver Relationship Specialty Start Date End Date Alf Khan DO PCP - General Family Medicine 09/03/13 02/27/23 documented as of this encounter
--- OUTSIDE RECORDS SUMMARY | 2024-09-06 23:59 | XMS_ITS | Encounter Summary ---
Author Organization [facility] Address [address] [place] [address] Care Team Providers Care Gastroenterologist Name Role Phone Alf Khan DO Primary Care Provider Stephan rosa Reason for Visit * Auth/Cert - Closed Specialty Diagnoses / Procedures Referred By Jean sosa Referred To Contact Diagnoses Abdominal pain Procedures COLONOSCOPY Referral ID Status Reason Start Date Expiration Date Visits Re quested Visits Authorized [id number] Closed 1 1 Encounter Details Date Type Department Care Team (Late st Contact Info) Description 04/15/2014 8:36 AM CDT Anesthesia Event [facility] - Endoscopy Services [address] [place] [address] Sofi Nicholson, DAMIEN-TABLE GAMES MANAGER LICENSE Anesthesia Record Procedure Summary Procedure Name [...] Sex Assigned at Male 08/31/2020 7:44 AM [employer]CE [employer] OFFICER Gender Identity Male 08/31/2020 7:44 AM [employer] OFFICER Sexual Orientation Straight 08/31/2020 7: 44 AM [employer] OFFICER documented as of this encounter Functional Status [...] Past Surgical History Procedure Laterality Date ??? [place] tooth extraction ??? Hernia repair, ventral 06/03/2012 [...] CDT documented in this encounter Care Teams Gastroenterologist Relationship Specialty Start Date End Date Alf Khan DO PCP - General Family Medicine 09/03/13 02/27/23 documented as of this encounter
--- OUTSIDE RECORDS SUMMARY | 2024-09-06 23:59 | XMS_ITS | Encounter Summary ---
Author Organization [facility] Address [address] [place] [address] Care Team Providers Care Instrument Calibrator Name Role Phone Alf Khan DO Primary [...] Description 12/21/2013 2:15 PM CDT Office Visit [facility] - Family Medicine [address] [place] [address] Alf Khan DO Sinusitis, acute (Primary Dx); [...] Assigned at Male 08/31/2020 7:44 AM MANAGER TECHNICAL Gender Identity Male 08/31/2020 7:44 AM MANAGER TECHNICAL Sexual Orientation Straight 08/31/2020 7: 44 AM MANAGER TECHNICAL documented as of this encounter Last Filed [...] 3:16 PM CDT Office Visit, Established Patient, [id number] HISTORY: SYDNEE Trenton Crockett is a 48 [...] benign documented in this encounter Care Teams Instrument Calibrator Relationship Specialty Start Date End Date Alf Khan DO PCP - General Family Medicine 09/03/13 02/27/23 documented as of this encounter
--- OUTSIDE RECORDS SUMMARY | 2024-09-06 23:59 | XMS_ITS | Encounter Summary ---
Author Organization [facility] Address [address] [place] [address] Care Team Providers Care Director [employer] Name Role Phone Alf Khan DO Primary [...] st Contact Info) Description 09/03/2013 11:00 AM PROFESSOR OF MANAGEMENT Office Visit [facility] - Family Medicine [address] [place] [address] Alf Khan DO Foot pain, left (Primary [...] Sex Assigned at Male 08/31/2020 7:44 AM PROFESSOR OF MANAGEMENT Gender Identity Male 08/31/2020 7:44 AM PROFESSOR OF MANAGEMENT Sexual Orientation Straight 08/31/2020 7: 44 AM PROFESSOR OF MANAGEMENT documented as of this encounter Last Filed Vital Signs Vital Sign Reading Time Taken Comments Blood Pressure 140/80 09/03/2013 11:42 AM PROFESSOR OF MANAGEMENT Pulse 84 09/03/2013 11:21 AM PROFESSOR OF MANAGEMENT Temperature - - Respiratory Rate - - Oxygen Saturation - - Inhaled Oxygen Concentration - - Weight 118.4 kg (261 lb) 09/03/2013 11:21 AM PROFESSOR OF MANAGEMENT Height 180.3 cm (5' 11 ) 09/03/2013 11:21 AM PROFESSOR OF MANAGEMENT Body Mass Index 36.4 09/03/2013 11:21 AM PROFESSOR OF MANAGEMENT documented in this encounter Patient Instructions * Patient Instructions* Alf Khan DO - 09/03/2013 11:43 AM PROFESSOR OF MANAGEMENT Get BP ck with staff in next 4-8 weeks ESSOR OF MANAGEMENT documented in this encounter Progress Notes * Alf Khan DO - 09/03/2013 11:42 AM CST Office Visit, Established Patient, [id number] HISTORY: CC & HPI: Trenton Crockett is [...] to call with any concerns or problems. ESSOR OF MANAGEMENT documented in this encounter Plan of Treatment Not on file documented as of this encounter Visit Diagnoses Diagnosis Foot pain, left- Primary Pain in limb Hyperlipidemia Other and unspecified hyperlipidemia Arthritis Arthropathy, unspecified, site unspecified HTN (hypertension), benign Essential hypertension, benign Obesity Obesity, unspecified documented in this encounter Care Teams Director [employer] Relationship Specialty Start Date End Date Alf Khan DO PCP - General Family Medicine 09/03/13 02/27/23 documented as of this encounter
--- OUTSIDE RECORDS SUMMARY | 2024-09-06 23:59 | XMS_ITS | Encounter Summary ---
Author Organization [facility] Address [address] [place] [address] Care Team Providers Care Steam Shovel Operator Name Role Phone Alf Khan DO Primary Care Provider Stephan rosa Encounter Details Date Type Department Care Team (Late st Contact Info) Description 04/08/2014 Orders Only [facility] Medical [facility] - Family Medicine [address] [place] [address] Alf Khan DO Abdominal pain, right upper [...] Assigned at Male 08/31/2020 7:[address] FREIGHT FIRER Gender Identity Male 08/31/2020 7:[address] FREIGHT FIRER Sexual Orientation Straight 08/31/2020 7: [address] FREIGHT FIRER documented as of this encounter Progress Notes * Liv Vasquez - 04/08/2014 1:53 PM CDT Ordered HIDA scan at [facility] on 04/16/14 at 7:30 am. Patient aware of instructions. documented in this encounter Plan of Treatment Not on file documented as of this encounter Visit Diagnoses Diagnosis Abdominal pain, right upper quadrant- Primary Nausea alone documented in this encounter Care Teams Steam Shovel Operator Relationship Specialty Start Date End Date Alf Khan DO PCP - General Family Medicine 09/03/13 02/27/23 documented as of this encounter
--- OUTSIDE RECORDS SUMMARY | 2024-09-06 23:59 | XMS_ITS | Encounter Summary ---
Author Organization [facility] Address [address] [address] Care Team Providers Care Rough Rib Grader Name Role Phone Alf Khan DO Primary Care Provider Stephan rosa Reason for Visit * Reason Comments Cough congestion in the th roat and hard to breath, ears are irritated for about 1 week Encounter Details Date Type Department Care Team (Late st Contact Info) Description 07/31/2016 10:20 AM TACKING STITCH REMOVER Office Visit [facility] AT [address] [place] [phone] Provider, Perri Exp Avery Nasopharyngitis (Primary Dx) Social History Tobacco Use Types Packs/Day Years Used Date Smoking Tobacco: Former Cigarettes 1.5 25 0 12/07/1985 - 12/07/2010 Smokeless Tobacco: Never Alcohol Use Standard Drinks/Week Comments Yes 0 (1 standard drink = 0.6 oz pur e alcohol) social Sex and Gender Information Value Date Recorded Sex Assigned at Male 08/31/2020 7:44 AM TACKING STITCH REMOVER Gender Identity Male 08/31/2020 7:44 AM TACKING STITCH REMOVER Sexual Orientation Straight 08/31/2020 7: 44 AM TACKING STITCH REMOVER documented as of this encounter Last Filed Vital Signs Vital Sign Reading Time Taken Comments Blood Pressure 150/80 07/31/2016 10:51 AM TACKING STITCH REMOVER Pulse 89 07/31/2016 10:27 AM TACKING STITCH REMOVER Temperature 36.7 ??C (98.1 ??F) 07/31/2016 10:[address] Respiratory Rate 16 07/31/2016 10:27 AM TACKING STITCH REMOVER Oxygen Saturation 98% 07/31/2016 10:27 AM TACKING STITCH REMOVER Inhaled Oxygen Concentration - - Weight 117.9 kg (260 lb) 07/31/2016 10:27 AM TACKING STITCH REMOVER Height 180.3 cm (5' 11 ) 07/31/2016 10:27 AM TACKING STITCH REMOVER Body Mass Index 36.26 07/31/2016 10:27 AM TACKING STITCH REMOVER documented in this encounter Functional Status Functional [...] Patient Instructions * Patient Instructions* [place] Bethea APRN-HOME STAGING SPECIALIST - 07/31/2016 10:57 AM TACKING STITCH REMOVER Cold Symptoms URBAN FORESTER: Cold symptoms include sneezing, dry throat, a [...] ask them during your visits. ?? 2016 [employer]. Information is for End User's use only and may not be sold, redistributed or otherwise used for commercial purposes. All illustrations and images included in CareNotes?? are the copyrighted property of [employer] or [employer]. The above information is an educational assistant teacher only. It is not intended as medical advice for individual conditions or treatments. Talk to your doctor, nurse or pharmacist before following any medical regimen to see if it is safe and effective for you. ING STITCH REMOVER documented in this encounter Progress Notes * [...] Past Surgical History Procedure Laterality Date ??? [place] tooth extraction ??? Hernia repair, ventral 06/03/2012 [...] Inhaler Refill: 0 May take zyrtec daily ING STITCH REMOVER documented in this encounter Plan of Treatment Not on file documented as of this encounter Goals Goal Patient Goal Type Associated Problems Recent Progress Patient-Stated? Author Blood Pressure < 140/90 Blood Pressure 172/93(2022 8:59 AM CDT) Zachary Funez documented as of this encounter Visit Diagnoses Diagnosis Nasopharyngitis- Primary Acute nasopharyngitis (common cold) documented in this encounter Care Teams Rough Rib Grader Relationship Specialty Start Date End Date Alf Khan DO PCP - General Family Medicine 09/03/13 02/27/23 documented as of this encounter
--- OUTSIDE RECORDS SUMMARY | 2024-09-06 23:59 | XMS_ITS | Encounter Summary ---
Author Organization [facility] Address [address] [place] [address] Care Team Providers Care Community Relations Specialist Name Role Phone Unavailable Primary Care Provider Unavailabl e Reason for Visit * Reason Onset Date Comments MEDICATION REFILL 06/04/2011 Encounter Details Date Type Department Care Team (Late st Contact Info) Description 06/04/2011 Refill [facility] Medical [facility] - Family Medicine [address] [place] [address] Jose Rust DO [address] [place] [address] MEDICATION REFILL Social History Tobacco Use Types Packs/Day Years Used Date Smoking Tobacco: Former Cigarettes Q uit: 12/07/2010 Smokeless Tobacco: Never Alcohol Use Standard Drinks/Week Comments Not Asked 0 (1 standard drink = 0.6 oz pur e alcohol) Sex and Gender Information Value Date Recorded Sex Assigned at Male 08/31/2020 7:44 AM VALVE MECHANIC Gender Identity Male 08/31/2020 7:44 AM VALVE MECHANIC Sexual Orientation Straight 08/31/2020 7: 44 AM VALVE MECHANIC documented as of this encounter Miscellaneous [...]
--- OUTSIDE RECORDS SUMMARY | 2024-09-06 23:59 | XMS_ITS | Encounter Summary ---
Author Organization [facility] Address [address] [place] [address] Care Team Providers Care Obstetrics Technician Name Role Phone Alf Khan DO Primary Care Provider Stephan rosa Reason for Visit * Reason Onset Date Comments Update 04/06/2014 Encounter Details Date Type Department Care Team (Late st Contact Info) Description 04/06/2014 Telephone [facility] - Family Medicine [address] [place] [address] Alf Khan DO Update Social History Tobacco Use Types Packs/Day Years Used Date Smoking Tobacco: Former Cigarettes 1.5 25 0 12/07/1985 - 12/07/2010 Smokeless Tobacco: Never Alcohol Use Standard Drinks/Week Comments Yes 0 (1 standard drink = 0.6 oz pur e alcohol) Sex and Gender Information Value Date Recorded Sex Assigned at Male 08/31/2020 7:44 AM DIRECTOR CONSUMER Gender Identity Male 08/31/2020 7:44 AM DIRECTOR CONSUMER Sexual Orientation Straight 08/31/2020 7: 44 AM DIRECTOR CONSUMER documented as of this encounter Miscellaneous Notes [...] on filedocumented in this encounter Care Teams Obstetrics Technician Relationship Specialty Start Date End Date Alf Khan DO PCP - General Family Medicine 09/03/13 02/27/23 documented as of this encounter
--- OUTSIDE RECORDS SUMMARY | 2024-09-06 23:59 | XMS_ITS | Encounter Summary ---
Author Organization [facility] Address [address] [place] [address] Care Team Providers Care Oil Field Equipment Mechanic Supervisor Name Role Phone Alf Khan DO Primary Care Provider Stephan rosa Encounter Details Date Type Department Care Team (Late st Contact Info) Description 04/08/2014 Orders Only [facility] Medical [facility] - Family Medicine [address] [place] [address] Alf Khan DO Elevated glucose Social History Tobacco Use Types Packs/Day Years Used Date Smoking Tobacco: Former Cigarettes 1.5 25 0 12/07/1985 - 12/07/2010 Smokeless Tobacco: Never Alcohol Use Standard Drinks/Week Comments Yes 0 (1 standard drink = 0.6 oz pur e alcohol) Sex and Gender Information Value Date Recorded Sex Assigned at Male 08/31/2020 7:44 AM SHAREPOINT WEB DEVELOPER Gender Identity Male 08/31/2020 7:44 AM SHAREPOINT WEB DEVELOPER Sexual Orientation Straight 08/31/2020 7: 44 AM SHAREPOINT WEB DEVELOPER documented as of this encounter Progress Notes [...] PM CDT Narrative Resulting Agency Comment [facility] [address] ??[facility] [phone] Alf Khan DO LAB - CHEMISTRY LIZABETH WILEY [facility] Organization Address City/State/ZIP Co de Phone Number [facility] ACCOUNT BILL documented in this encounter Visit Diagnoses Diagnosis Elevated glucose- Primary Other abnormal glucose documented in this encounter Care Teams Oil Field Equipment Mechanic Supervisor Relationship Specialty Start Date End Date Alf Khan DO PCP - General Family Medicine 09/03/13 02/27/23 documented as of this encounter
--- OUTSIDE RECORDS SUMMARY | 2024-09-06 23:59 | XMS_ITS | Encounter Summary ---
Author Organization [facility] Address [address] [place] [address] Care Team Providers Care Resin Painter Name Role Phone Unavailable Primary Care Provider Unavailabl e Reason for Visit * Reason Onset Date Comments MEDICATION REFILL 08/06/2012 Encounter Details Date Type Department Care Team (Late st Contact Info) Description 08/06/2012 Refill [facility] - Family Medicine [address] [place] [address] Jose Rust DO [address] [place] [address] MEDICATION REFILL Social History Tobacco Use Types Packs/Day Years Used Date Smoking Tobacco: Former Cigarettes 1.5 25 0 12/07/1985 - 12/07/2010 Smokeless Tobacco: Never Alcohol Use Standard Drinks/Week Comments Yes 0 (1 standard drink = 0.6 oz pur e alcohol) Sex and Gender Information Value Date Recorded Sex Assigned at Male 08/31/2020 7:44 AM FIELD CROP GROWER Gender Identity Male 08/31/2020 7:44 AM FIELD CROP GROWER Sexual Orientation Straight 08/31/2020 7: 44 AM FIELD CROP GROWER documented as of this encounter Miscellaneous Notes * Telephone Encounter - Perla Martinez - 08/07/2012 1:57 PM CST Rx approved and sent to pharmacy D CROP GROWER * Telephone Encounter - Alyse Campbell V. - 08/06/2012 1:52 PM CST Trenton Crockett Allergies Allergen Reactions ??? Perry Inhibitors Cough Requested Prescriptions Pending Prescriptions Disp Refills ??? pravastatin (PRAVACHOL) 40 MG tablet 30 Tab Sig: Take 1 Tab by mouth at bedtime. Last Refill:05/27/12 Last OV: 06/10/12 D CROP GROWER documented in this encounter Plan of Treatment Not on file documented as of this encounter Visit Diagnoses Diagnosis Hyperlipidemia- Primary Other and unspecified hyperlipidemia documented in this encounter
--- OUTSIDE RECORDS SUMMARY | 2024-09-06 23:59 | XMS_ITS | Encounter Summary ---
Author Organization [facility] Address [address] [place] [address] Care Team Providers Care Oscillograph Technician Name Role Phone Alf Khan DO Primary Care Provider Stephan rosa Reason for Visit * Reason Comments Refill Request Encounter Details Date Type Department Care Team (Late st Contact Info) Description 08/07/2016 Refill [facility] - Family Medicine [address] [place] [address] Alf Khan, DO Refill Request Social History Tobacco Use Types Packs/Day Years Used Date Smoking Tobacco: Former Cigarettes 1.5 25 0 12/07/1985 - 12/07/2010 Smokeless Tobacco: Never Alcohol Use Standard Drinks/Week Comments Yes 0 (1 standard drink = 0.6 oz pur e alcohol) social Sex and Gender Information Value Date Recorded Sex Assigned at Male 08/31/2020 7:44 AM SENIOR PREMIUM AUDITOR Gender Identity Male 08/31/2020 7:44 AM SENIOR PREMIUM AUDITOR Sexual Orientation Straight 08/31/2020 7: 44 AM SENIOR PREMIUM AUDITOR documented as of this encounter Functional Status [...] Valsartan 10/19/2015 w/6 refills Last ov 07/23/2016 OR PREMIUM AUDITOR documented in this encounter Plan of Treatment Not on file documented as of this encounter Goals Goal Patient Goal Type Associated Problems Recent Progress Patient-Stated? Author Blood Pressure < 140/90 Blood Pressure 172/93(2022 8:59 AM CDT) No Zachary Moreno documented as of this encounter Visit Diagnoses Not on filedocumented in this encounter Care Teams Oscillograph Technician Relationship Specialty Start Date End Date Alf Khan DO PCP - General Family Medicine 09/03/13 02/27/23 documented as of this encounter
--- OUTSIDE RECORDS SUMMARY | 2024-09-06 23:59 | XMS_ITS | Encounter Summary ---
Author Organization [facility] Address [address] [place] [address] Care Team Providers Care Inker Machine Name Role Phone Alf Khan DO Primary Care Provider Stephan rosa Reason for Referral * PT/OT/ST - Closed Specialty Diagnoses / Procedures Referred By Jean sosa Referred To Contact Diagnoses Radicular pain in left arm Alf Khan DO [address] [place] [address] [facility] PHYSICAL THERAPY - [facility]) [address] [place] [id number] Referral ID Status Reason Start Date Expiration Date V isits Requested Visits Authorized [id number] Closed Specialty Services Required 11/05/2014 05/04/2015 12 12 Scheduling Instructions [facility] Physical Therapy at [facility] If you have not been contacted by an [facility] Tap And Die Maker Technician within 24 hours, please contact the office [...] Description 11/01/2014 7:45 AM CDT Office Visit [facility] Medical [facility] - Family Medicine [address] [place] [address] Alf Khan DO Radicular pain in left [...] Sex Assigned at Male 08/31/2020 7:44 AM CASE FITTER Gender Identity Male 08/31/2020 7:44 AM CASE FITTER Sexual Orientation Straight 08/31/2020 7: 44 AM CASE FITTER documented as of this encounter Last Filed [...] Where can I go for more information? [place] [employer] National Center: http://www.americanheart.org 1. In the top header, click ???Conditions?? . 2. In the top header, click ???high blood pressure.?? 3. For a printable blood pressure tracker, scroll toward the bottom of the page to Related Tools, and click ???HBP Trackers.?? 9-805-CJG-USA-1 or ( ) National Heart, Lung and Blood [place]: http://www.nhlbi.nih.gov/health/infoctr/index.htm documented in this encounter Progress Notes * Alf Khan DO - 11/01/2014 8:10 AM CDT Office Visit, Established [place], [id number] HISTORY: CC & HPI: Trenton Crockett is a 48 y.o. male established patient, here for: Chief Complaint Patient presents with ??? Shoulder Pain Left shoulder pain now x 3 weeks. Patient states he has pain and limited ROM. ??? MEDICATION REFILL discuss pain medication refills. ??? Pain Back Discuss ongoing back pains. 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 Pt was pulling on something [...] Referral Reason: Specialty Services Required Referral Location: [facility] PHYSICAL THERAPY [facility] (HOSP) Number of Visits Requested: 12 ??? [...] test documented in this encounter Care Teams Inker Machine Relationship Specialty Start Date End Date Alf Khan DO PCP - General Family Medicine 09/03/13 02/27/23 documented as of this encounter
--- OUTSIDE RECORDS SUMMARY | 2024-09-06 23:59 | XMS_ITS | Encounter Summary ---
Author Organization [facility] Address [address] [place] [address] Care Team Providers Care Director Of Casino Name Role Phone Unavailable Primary Care Provider [...] Description 06/10/2012 8:15 AM CDT Office Visit [facility] - Family Medicine [address] [place] [address] Jose Rust, [address] [place] [address] HTN (hypertension), benign (Primary Dx); Hyperlipidemia; GERD [...] Sex Assigned at Male 08/31/2020 7:44 AM CENTRAL STERILE TECHNICIAN Gender Identity Male 08/31/2020 7:44 AM CENTRAL STERILE TECHNICIAN Sexual Orientation Straight 08/31/2020 7: 44 AM CENTRAL STERILE TECHNICIAN documented as of this encounter Last [...] 8:51 AM CDT Office Visit, Established Patient, [id number] HISTORY: (4+ elements or 3+ chronic) CC [...] DIPSTICK AUTO (06/10/2012 9:15 AM CDT) Specific [place] UA 1.022 1.005 - 1.030 [facility] ACCOUNT [...] PM CDT Narrative Resulting Agency Comment [facility] [address] ??[facility] [phone] Jose Rust DO LAB - URINALYSIS ORD ERABLES [facility] ACCOUNT BILL * PSA FREE + TOTAL PANEL (06/10/2012 9:14 AM CDT) PSA 1.7 0.0 - 4.0 ng/mL [facility] ACCOUNT BILL Comment: Brenda ECLIA methodology. ? . According to the [place] [employer], Serum PSA should decrease and [...] CDT Narrative Resulting Agency Comment [facility] [place] [address] ??[place] [id number] Jose Rust DO LAB - CHEMISTRY LIZABETH [...] PM CDT Narrative Resulting Agency Comment [facility] [address] ??[facility] [phone] Jose Rust DO LAB - CHEMISTRY LIZABETH [...] PM CDT Narrative Resulting Agency Comment [facility] [address] ??[facility] [phone] Jose Rust DO LAB - CHEMISTRY LIZABETH [...] vaccination Need for prophylactic vaccination with combined [id number]-[id number]-qmpenirae (DTP) vaccine Need for prophylactic vaccination and inoculation against influenza documented in this encounter
--- OUTSIDE RECORDS SUMMARY | 2024-09-06 23:59 | XMS_ITS | Encounter Summary ---
Author Organization [facility] Address [address] [place] [address] Care Team Providers Care Director Of Assessment Name Role Phone Alf Khan DO Primary Care Provider Stephan rosa Reason for Visit * Reason Comments Refill Request Encounter Details Date Type Department Care Team (Late st Contact Info) Description 08/12/[address] [facility] Medical [facility] - Family Medicine [address] [place] [address] Alf Khan, DO Refill Request Social History Tobacco Use Types Packs/Day Years Used Date Smoking Tobacco: Former Cigarettes 1.5 25 0 12/07/1985 - 12/07/2010 Smokeless Tobacco: Never Alcohol Use Standard Drinks/Week Comments Yes 0 (1 standard drink = 0.6 oz pur e alcohol) social Sex and Gender Information Value Date Recorded Sex Assigned at Male 08/31/2020 7:44 AM REPRESENTATIVE PHLEBOTOMY SERVICES Gender Identity Male 08/31/2020 7:44 AM REPRESENTATIVE PHLEBOTOMY SERVICES Sexual Orientation Straight 08/31/2020 7: 44 AM REPRESENTATIVE PHLEBOTOMY SERVICES documented as of this encounter Functional Status [...] for follow up before next refill given ESENTATIVE PHLEBOTOMY SERVICES documented in this encounter Plan of Treatment Not on file documented as of this encounter Goals Goal Patient Goal Type Associated Problems Recent Progress Patient-Stated? Author Blood Pressure < 140/90 Blood Pressure 172/93(2022 8:59 AM CDT) No Zachary Moreno documented as of this encounter Visit Diagnoses Not on filedocumented in this encounter Care Teams Director Of Assessment Relationship Specialty Start Date End Date Alf Khan DO PCP - General Family Medicine 09/03/13 02/27/23 documented as of this encounter
--- OUTSIDE RECORDS SUMMARY | 2024-09-06 23:59 | XMS_ITS | Encounter Summary ---
Author Organization [facility] Address [address] [place] [address] Care Team Providers Care Senior Online Marketing Manager Name Role Phone Alf Khan DO Primary Care Provider Stephan rosa Reason for Visit * Reason Comments Pain Back patient here today c ont to have ongoing back patient also states that he needs at sleep study Referral patient requesting r eferral for sleep study Encounter Details Date Type Department Care Team (Latest Contact Info) Description 08/17/2015 2:45 PM MIDDLE SCHOOL HUMANITIES TEACHER Office Visit [facility] - Family Medicine [address] [place] [address] Alf Khan DO Metabolic syndrome (Primary Dx); [...] Sex Assigned at Male 08/31/2020 7:44 AM MIDDLE SCHOOL HUMANITIES TEACHER Gender Identity Male 08/31/2020 7:44 AM MIDDLE SCHOOL HUMANITIES TEACHER Sexual Orientation Straight 08/31/2020 7: 44 AM MIDDLE SCHOOL HUMANITIES TEACHER documented as of this encounter Last Filed Vital Signs Vital Sign Reading Time Taken Comments Blood Pressure 142/89 08/17/2015 2:58 PM MIDDLE SCHOOL HUMANITIES TEACHER Pulse 79 08/17/2015 2:58 PM MIDDLE SCHOOL HUMANITIES TEACHER Temperature 37.2 ??C (99 ??F) 08/17/2015 2:58 PM MIDDLE SCHOOL HUMANITIES TEACHER Respiratory Rate - - Oxygen Saturation 95% 08/17/2015 2:58 PM MIDDLE SCHOOL HUMANITIES TEACHER Inhaled Oxygen Concentration - - Weight 117.5 kg (259 lb) 08/17/2015 2:58 PM MIDDLE SCHOOL HUMANITIES TEACHER Height 180.3 cm (5' 11 ) 08/17/2015 2:58 PM MIDDLE SCHOOL HUMANITIES TEACHER Body Mass Index 36.12 08/17/2015 2:58 PM MIDDLE SCHOOL HUMANITIES TEACHER documented in this encounter Functional Status Functional [...] Puja Raymundo R - 08/17/2015 3:03 PM MIDDLE SCHOOL HUMANITIES TEACHER Caring for Your High Blood Pressure Healthy [...] Where can I go for more information? [employer] Heart Association National Center: http://www.americanheart.org 1. In the top header, click ???Conditions?? . 2. In the top header, click ???high blood pressure.?? 3. For a printable blood pressure tracker, scroll toward the bottom of the page to Related Tools, and click ???HBP Trackers.?? 8-710-HIO-USA-1 or ( ) National Heart, Lung and Blood [place]: http://www.nhlbi.nih.gov/health/infoctr/index.htm LE SCHOOL HUMANITIES TEACHER documented in this encounter Progress Notes * Alf Khan, - 08/17/2015 3:27 PM CST Images from the original note were not included. Office Visit, Established Patient, [id number] HISTORY: SYDNEE Trenton Crockett is a 49 [...] Referral Reason: Specialty Services Required Referral Location: [facility] - [facility] Number of Visits Requested: 1 ??? hydrocodone-acetaminophen [...] call with any concerns or problems. LE SCHOOL HUMANITIES TEACHER documented in this encounter Plan of Treatment [...] LUMBAR SPINE 4+ VW (08/17/2015 4:05 PM MIDDLE SCHOOL HUMANITIES TEACHER) Anatomical Region Laterality Modality Spine Radiographic Nataliya ging 08/17/2015 4:11 PM MIDDLE SCHOOL HUMANITIES TEACHER Impressions 08/17/2015 4:12 PM MIDDLE SCHOOL HUMANITIES TEACHER No acute osseous abnormality Degenerative changes Narrative 08/17/2015 4:12 PM MIDDLE SCHOOL HUMANITIES TEACHER Lumbar spine 5 views Indication: Low back [...] sciatica documented in this encounter Care Teams Senior Online Marketing Manager Relationship Specialty Start Date End Date Alf Khan DO PCP - General Family Medicine 09/03/13 02/27/23 documented as of this encounter
--- OUTSIDE RECORDS SUMMARY | 2024-09-06 23:59 | XMS_ITS | Encounter Summary ---
Author Organization [facility] Address [address] [place] [address] Care Team Providers Care Survival Equipment Repairer Name Role Phone Unavailable Primary Care Provider Unavailabl e Reason for Visit * Reason Onset Date Comments MEDICATION REFILL 03/25/2013 Encounter Details Date Type Department Care Team (Late st Contact Info) Description 03/25/2013 Refill [facility] Medical [facility] - Family Medicine [address] [place] [address] Jose Rust DO [address] [place] [address] MEDICATION REFILL Social History Tobacco Use Types Packs/Day Years Used Date Smoking Tobacco: Former Cigarettes 1.5 25 0 12/07/1985 - 12/07/2010 Smokeless Tobacco: Never Alcohol Use Standard Drinks/Week Comments Yes 0 (1 standard drink = 0.6 oz pur e alcohol) Sex and Gender Information Value Date Recorded Sex Assigned at Male 08/31/2020 7:44 AM SALESFORCE TRAINER Gender Identity Male 08/31/2020 7:44 AM SALESFORCE TRAINER Sexual Orientation Straight 08/31/2020 7: 44 AM SALESFORCE TRAINER documented as of this encounter Miscellaneous Notes [...]
--- OUTSIDE RECORDS SUMMARY | 2024-09-06 23:59 | XMS_ITS | Encounter Summary ---
Author Organization [facility] Address [address] [place] [address] Care Team Providers Care Camera Storage Clerk Name Role Phone Unavailable Primary Care Provider Unavailabl e Reason for Visit * Reason Onset Date Comments MEDICATION REFILL 05/27/2012 Encounter Details Date Type Department Care Team (Late st Contact Info) Description 05/27/2012 Refill [facility] Medical [facility] - Family Medicine [address] [place] [address] Jose Rust DO [address] [place] [address] MEDICATION REFILL Social History Tobacco Use Types Packs/Day Years Used Date Smoking Tobacco: Former Cigarettes Q uit: 12/07/2010 Smokeless Tobacco: Never Alcohol Use Standard Drinks/Week Comments Not Asked 0 (1 standard drink = 0.6 oz pur e alcohol) Sex and Gender Information Value Date Recorded Sex Assigned at Male 08/31/2020 7:44 AM CORPORATE RECYCLING MANAGER Gender Identity Male 08/31/2020 7:44 AM CORPORATE RECYCLING MANAGER Sexual Orientation Straight 08/31/2020 7: 44 AM CORPORATE RECYCLING MANAGER documented as of this encounter Miscellaneous [...]
--- OUTSIDE RECORDS SUMMARY | 2024-09-06 23:59 | XMS_ITS | Encounter Summary ---
Author Organization [facility] Address [address] [place] [address] Care Team Providers Care Head Still Operator Name Role Phone Alf Khan DO Primary Care Provider Stephan rosa Reason for Visit * Reason Comments Pain Back patient here today c /o ongoing back pain MEDICATION REFILL patient requesting m edication Urinary frequency patient c/o urinary frequency Encounter Details Date Type Department Care Team (Latest Contact Info) Description 07/23/2016 4:30 PM MARINE OILER Office Visit [facility] - Family Medicine [address] [place] [address] Alf Khan DO Urinary frequency (Primary Dx); [...] Sex Assigned at Male 08/31/2020 7:44 AM MARINE OILER Gender Identity Male 08/31/2020 7:44 AM MARINE OILER Sexual Orientation Straight 08/31/2020 7: 44 AM MARINE OILER documented as of this encounter Last Filed Vital Signs Vital Sign Reading Time Taken Comments Blood Pressure 140/88 07/23/2016 4:52 PM MARINE OILER Pulse 76 07/23/2016 4:52 PM MARINE OILER Temperature 36.4 ??C (97.6 ??F) 07/23/2016 4:52 PM CS T Respiratory Rate - - Oxygen Saturation 98% 07/23/2016 4:52 PM MARINE OILER Inhaled Oxygen Concentration - - Weight 126.1 kg (278 lb) 07/23/2016 4:52 PM MARINE OILER Height 180.3 cm (5' 11 ) 07/23/2016 4:52 PM MARINE OILER Body Mass Index 38.77 07/23/2016 4:52 PM MARINE OILER documented in this encounter Functional Status Functional [...] Puja Raymundo R - 07/23/2016 4:50 PM MARINE OILER Caring for Your High Blood Pressure Healthy [...] to Related Tools, and click ???HBP Trackers.?? 2-796-ASY-USA-1 or ( ) National Heart, Lung and Blood [place]: http://www.nhlbi.nih.gov/health/infoctr/index.htm NE OILER documented in this encounter Progress Notes * Alf Khan, DO - 07/23/2016 5:16 PM CST Office Visit, Established Patient, [id number] HISTORY: SYDNEE Doughertydominique Crockett is a 50 [...] results for input(s): HGBA1C in the last [id number] hours. in fact his last A1c was [...] pH units Blood UA small Negtive Specific [place] UA 1.025 1.002 - 1.030 Ketone UA [...] to call with any concerns or problems. NE OILER documented in this encounter Plan of Treatment [...] POINT OF CARE Routine 07/23/2016 5:00 PM MARINE OILER Urinary frequency documented in this encounter Results * URINALYSIS AUTO - POINT OF CARE (07/23/2016 5:00 PM MARINE OILER) Clarity UA POCT clear Color UA POCT yellow Leukocyte UA neg Negative Nitrite UA POCT neg Negative Urobilinogen UA 0.2 0.1 - 1.0 Protein UA POCT neg Negative pH UA 5.0 5.0 - 8.0 pH units Blood UA small Negtive Specific [place] UA POCT 1.025 1.002 - 1.030 Ketone UA neg Negative Bilirubin UA POCT neg Negative Glucose UA neg Negative Urine URINE / Unknown 07/23/2016 5 :00 PM MARINE OILER Alf Khan DO LAB - POINT OF [...] facility documented in this encounter Care Teams Head Still Operator Relationship Specialty Start Date End Date Alf Khan DO PCP - General Family Medicine 09/03/13 02/27/23 documented as of this encounter
--- OUTSIDE RECORDS SUMMARY | 2024-09-06 23:59 | XMS_ITS | Encounter Summary ---
Author Organization [facility] Address [address] [place] [address] Care Team Providers Care Consumer Lending Manager Name Role Phone Alf Khan DO Primary Care Provider Stephan rosa Reason for Visit * Reason Comments Pain Back Discuss ongoing back pain. MEDICATION REFILL Discuss pain medicat ion refills. Also needing omeprazole Encounter Details Date Type Department Care Team (Latest Contact Info) Description 06/24/2014 3:45 PM CDT Office Visit [facility] - Family Medicine [address] [place] [address] Alf Khan DO IBS (irritable bowel syndrome) [...] Sex Assigned at Male 08/31/2020 7:44 AM PRODUCT SUPPORT ENGINEER Gender Identity Male 08/31/2020 7:44 AM PRODUCT SUPPORT ENGINEER Sexual Orientation Straight 08/31/2020 7: 44 AM PRODUCT SUPPORT ENGINEER documented as of this encounter Last Filed [...] Where can I go for more information? [place] Heart Association National Center: http://www.americanheart.org 1. In the top header, click ???Conditions?? . 2. In the top header, click ???high blood pressure.?? 3. For a printable blood pressure tracker, scroll toward the bottom of the page to Related Tools, and click ???HBP Trackers.?? 3-067-RVJ-USA-1 or ( ) National Heart, Lung and Blood [place]: http://www.nhlbi.nih.gov/health/infoctr/index.htm documented in this encounter Progress Notes * Alf Khan, - 06/24/2014 4:38 PM CDT Office Visit, Established Patient, [id number] HISTORY: CC & HPI: Trenton Crockett is [...] test documented in this encounter Care Teams Consumer Lending Manager Relationship Specialty Start Date End Date Alf Khan DO PCP - General Family Medicine 09/03/13 02/27/23 documented as of this encounter
--- OUTSIDE RECORDS SUMMARY | 2024-09-06 23:59 | XMS_ITS | Encounter Summary ---
Author Organization [facility] Address [address] [place] [address] Care Team Providers Care Stem Sizer Name Role Phone Alf Khan DO Primary Care Provider Stephan rosa Reason for Visit * Reason Onset Date Comments Order 08/24/2015 Encounter Details Date Type Department Care Team (Late st Contact Info) Description 08/24/2015 Telephone [facility] Medical [facility] - Family Medicine [address] [place] [address] Alf Khan, DO Order Social History Tobacco Use Types Packs/Day Years Used Date Smoking Tobacco: Former Cigarettes 1.5 25 0 12/07/1985 - 12/07/2010 Smokeless Tobacco: Never Alcohol Use Standard Drinks/Week Comments Yes 0 (1 standard drink = 0.6 oz pur e alcohol) social Sex and Gender Information Value Date Recorded Sex Assigned at Male 08/31/2020 7:44 AM VIOLENT CRIMES DETECTIVE Gender Identity Male 08/31/2020 7:44 AM VIOLENT CRIMES DETECTIVE Sexual Orientation Straight 08/31/2020 7: 44 AM VIOLENT CRIMES DETECTIVE documented as of this encounter Functional Status [...] as all his ins will cover ENT CRIMES DETECTIVE * Telephone Encounter - Umer Fulton - 08/24/2015 9:06 AM CST Lilliam brasher [facility] sleep center is calling stating that pt did not meet the requirements for a sleep study test but can have a home sleep study but it has to be ordered for pt. Order is pending please sign order. ENT CRIMES DETECTIVE documented in this encounter Plan of Treatment Not on file documented as of this encounter Goals Goal Patient Goal Type Associated Problems Recent Progress Patient-Stated? Author Blood Pressure < 140/90 Blood Pressure 172/93(2022 8:59 AM CDT) Zachary Funez documented as of this encounter Visit Diagnoses Diagnosis Snoring- Primary Other dyspnea and respiratory abnormality documented in this encounter Care Teams Stem Sizer Relationship Specialty Start Date End Date Alf Khan DO PCP - General Family Medicine 09/03/13 02/27/23 documented as of this encounter
--- OUTSIDE RECORDS SUMMARY | 2024-09-06 23:59 | XMS_ITS | Encounter Summary ---
Author Organization [facility] Address [address] [place] [address] Care Team Providers Care Manager Produce Name Role Phone Unavailable Primary Care Provider Trang e Encounter Details Date Type Department Care Team (Late st Contact Info) Description 06/05/2011 Orders Only [facility] Medical [facility] - Family Medicine [address] [place] [address] Maddy Feliciano HTN (hypertension), benign Social History Tobacco Use Types Packs/Day Years Used Date Smoking Tobacco: Former Cigarettes Q uit: 12/07/2010 Smokeless Tobacco: Never Alcohol Use Standard Drinks/Week Comments Not Asked 0 (1 standard drink = 0.6 oz pur e alcohol) Sex and Gender Information Value Date Recorded Sex Assigned at Male 08/31/2020 7:44 AM HOOP ROLLS OPERATOR Gender Identity Male 08/31/2020 7:44 AM HOOP ROLLS OPERATOR Sexual Orientation Straight 08/31/2020 7: 44 AM HOOP ROLLS OPERATOR documented as of this encounter Plan of Treatment Not on file documented as of this encounter Visit Diagnoses Diagnosis HTN (hypertension), benign- Primary Essential hypertension, benign documented in this encounter
--- OUTSIDE RECORDS SUMMARY | 2024-09-06 23:59 | XMS_ITS | Encounter Summary ---
Author Organization [facility] Address [address] [place] [address] Care Team Providers Care Hand Molder Meat Name Role Phone Alf Khan DO Primary Care Provider Stephan rosa Reason for Visit * Auth/Cert - Closed Specialty Diagnoses / Procedures Referred By Jean sosa Referred To Contact Diagnoses Abdominal pain Procedures COLONOSCOPY Referral ID Status Reason Start Date Expiration Date Visits Re quested Visits Authorized [id number] Closed 1 1 Encounter Details Date Type Department Care Team (Late st Contact Info) Description 04/15/2014 8:30 AM CDT - 04/15/2014 9:00 AM CDT Surgery [facility] - Endoscopy Services [address] [place] [id number] Astrid Rios DO [address] [place] [id number] COLONOSCOPY Surgery Details Date/Time Status Location OR Service Patient Class Case Class Case Type Trauma Case? 04/15/2014 8:30 AM Posted [facility] 01 Gastroenterology Surgery Day [...] Sex Assigned at Male 08/31/2020 7:44 AM ATTACHER Gender Identity Male 08/31/2020 7:44 AM ATTACHER Sexual Orientation Straight 08/31/2020 7: 44 AM ATTACHER documented as of this encounter Last Filed [...] Case Report Surgical Pathology Report ? Case: [id number] ? Authorizing Provider: ??Astrid Rios DO ?Collected: ? 04/15/2014 08:49 AM ? Ordering Location: ? [facility] ?Received: ?04/15/2014 09:16 AM ? Pathologist: ? Julian Boucher MD ? Specimen: ?Polyp Sigmoid, snare ? 04/16/2014 3:43 PM CDT [facility] Final Diagnosis 1. Sigmoid colon polyp: -- Tubular adenoma REGAN/inna 04/16/2014 3:43 PM CDT [facility] Gross [...] Rios DO LAB - PATHOLOGY/CYTO LOGY ORDERABLES [facility] [id number] [place] [id number] * ENDOSCOPY, COLON, SCREENING (04/15/2014 8:24 AM [...] Procedure Code(s): ? --- Professional --- ? 40117, Colonoscopy, flexible, proximal to splenic flexure; with removal ? of tumor(s), polyp(s), or other lesion(s) by snare technique ? --- Technical --- ? 62477, Colonoscopy, flexible, proximal to splenic flexure; with [...] (without mention of hemorrhage) CPT copyright 2013 [employer]. All rights reserved. The codes documented in this report are preliminary and upon cake former review may be revised to meet current compliance requirements. ___ Astrid Rios DO 04/15/2014 8:51 AM This report has been signed electronically. Number of Addenda: 0 Note Initiated On: 04/15/2014 8:24 AM [facility] 04/15/2014 8:24 AM CDT Astrid Gabriel SMITH GI PROCEDURE ORDERAB LES [facility] [place] [address] documented in this encounter Visit Diagnoses Diagnosis [...] RN) documented in this encounter Care Teams Hand Molder Meat Relationship Specialty Start Date End Date Alf Khan DO PCP - General Family Medicine 09/03/13 02/27/23 documented as of this encounter
--- OUTSIDE RECORDS SUMMARY | 2024-09-06 23:59 | XMS_ITS | Encounter Summary ---
Author Organization [facility] Address [address] [address] Care Team Providers Care Guide Escort Name Role Phone Unavailable Primary Care Provider Unavailabl e Reason for Visit * Reason Onset Date Comments MEDICATION REFILL 03/24/2012 Encounter Details Date Type Department Care Team (Late st Contact Info) Description 03/24/2012 Refill [facility] Medical [facility] - Family Medicine [address] [place] [address] Jose Rust DO [address] [place] [address] MEDICATION REFILL Social History Tobacco Use Types Packs/Day Years Used Date Smoking Tobacco: Former Cigarettes Q uit: 12/07/2010 Smokeless Tobacco: Never Alcohol Use Standard Drinks/Week Comments Not Asked 0 (1 standard drink = 0.6 oz pur e alcohol) Sex and Gender Information Value Date Recorded Sex Assigned at Male 08/31/2020 7:44 AM PROFESSOR OF FOREST PLANNING Gender Identity Male 08/31/2020 7:44 AM PROFESSOR OF FOREST PLANNING Sexual Orientation Straight 08/31/2020 7: 44 AM PROFESSOR OF FOREST PLANNING documented as of this encounter Miscellaneous Notes [...]
--- OUTSIDE RECORDS SUMMARY | 2024-09-06 23:59 | XMS_ITS | Encounter Summary ---
Author Organization [facility] Address [address] [place] [address] Care Team Providers Care Machine Edge Bander Name Role Phone Unavailable Primary Care Provider Unavailabl e Reason for Visit * Reason Onset Date Comments Refill Request 09/01/2013 Encounter Details Date Type Department Care Team (Late st Contact Info) Description 09/01/2013 Telephone [facility] Medical [facility] - Family Medicine [address] [place] [address] Jose Rust DO [address] [place], [place] [id number] Refill Request Social History Tobacco Use Types Packs/Day Years Used Date Smoking Tobacco: Former Cigarettes 1.5 25 0 12/07/1985 - 12/07/2010 Smokeless Tobacco: Never Alcohol Use Standard Drinks/Week Comments Yes 0 (1 standard drink = 0.6 oz pur e alcohol) Sex and Gender Information Value Date Recorded Sex Assigned at Male 08/31/2020 7:44 AM ADVERTISING PHOTOGRAPHER Gender Identity Male 08/31/2020 7:44 AM ADVERTISING PHOTOGRAPHER Sexual Orientation Straight 08/31/2020 7: 44 AM ADVERTISING PHOTOGRAPHER documented as of this encounter Miscellaneous Notes * Telephone Encounter - Alyse Campbell V. - 09/01/2013 3:59 PM CST Two months ok per Perla. Patient has been scheduled with Dr. Taylor and needs to complete appointment before he can get anymore refills. RTISING PHOTOGRAPHER * Telephone Encounter - Carlota Benson - 09/01/2013 2:37 PM CST Called pt regarding refill request for Pravastatin. Rx pending until new PCP is discussed. RTISING PHOTOGRAPHER documented in this encounter Plan of Treatment Not on file documented as of this encounter Visit Diagnoses Diagnosis Hyperlipidemia- Primary Other and unspecified hyperlipidemia documented in this encounter
--- OUTSIDE RECORDS SUMMARY | 2024-09-06 23:59 | XMS_ITS | Encounter Summary ---
Author Organization [facility] Address [address] [place] [address] Care Team Providers Care Strategy Manager Name Role Phone Unavailable Primary Care Provider Trnag e Encounter Details Date Type Department Care Team (Late st Contact Info) Description 09/01/2013 Orders Only [facility] - Family Medicine [address] [place] [address] Jose Rust DO [address] [place] [address] Social History Tobacco Use Types Packs/Day Years Used Date Smoking Tobacco: Former Cigarettes 1.5 25 0 12/07/1985 - 12/07/2010 Smokeless Tobacco: Never Alcohol Use Standard Drinks/Week Comments Yes 0 (1 standard drink = 0.6 oz pur e alcohol) Sex and Gender Information Value Date Recorded Sex Assigned at Male 08/31/2020 7:44 AM ACLS SPECIALIST Gender Identity Male 08/31/2020 7:44 AM ACLS SPECIALIST Sexual Orientation Straight 08/31/2020 7: 44 AM ACLS SPECIALIST documented as of this encounter Progress Notes * Jose Rust DO - 09/01/2013 8:54 PM CST Pravastatin refilled x 8 months Needs fasting lipids in March SPECIALIST documented in this encounter Plan of Treatment Not on file documented as of this encounter Visit Diagnoses Not on filedocumented in this encounter
--- OUTSIDE RECORDS SUMMARY | 2024-09-06 23:59 | XMS_ITS | Encounter Summary ---
Author Organization [facility] Address [address] [place] [address] Care Team Providers Care Room Server Name Role Phone Unavailable Primary Care Provider Unavailabl e Reason for Visit * Reason Onset Date Comments MEDICATION REFILL 06/26/2013 Encounter Details Date Type Department Care Team (Late st Contact Info) Description 06/26/2013 Refill [facility] - Family Medicine [address] [place] [address] Jose Rust DO [address] [place] [address] MEDICATION REFILL Social History Tobacco Use Types Packs/Day Years Used Date Smoking Tobacco: Former Cigarettes 1.5 25 0 12/07/1985 - 12/07/2010 Smokeless Tobacco: Never Alcohol Use Standard Drinks/Week Comments Yes 0 (1 standard drink = 0.6 oz pur e alcohol) Sex and Gender Information Value Date Recorded Sex Assigned at Male 08/31/2020 7:44 AM CENTURA TECHNICAL LEAD SENIOR DEVELOPER Gender Identity Male 08/31/2020 7:44 AM CENTURA TECHNICAL LEAD SENIOR DEVELOPER Sexual Orientation Straight 08/31/2020 7: 44 AM CENTURA TECHNICAL LEAD SENIOR DEVELOPER documented as of this encounter Miscellaneous Notes [...]
--- OUTSIDE RECORDS SUMMARY | 2024-09-06 23:59 | XMS_ITS | Encounter Summary ---
Author Organization [facility] Address [address] [place] [address] Care Team Providers Care Professor Of Musicology Name Role Phone Unavailable Primary Care Provider Trang e Encounter Details Date Type Department Care Team (Latest Contact Info) Description 06/03/2012 5:27 AM CDT - 06/03/2012 11:00 AM CDT Hospital Encounter [facility] - Perioperative Surgery [address] [place] [address] Flako Yañez DO RETIRED Surgery [...] Sex Assigned at Male 08/31/2020 7:44 AM COUNT ROOM CLERK Gender Identity Male 08/31/2020 7:44 AM COUNT ROOM CLERK Sexual Orientation Straight 08/31/2020 7: 44 AM COUNT ROOM CLERK documented as of this encounter Last Filed [...] hours to schedule appointment. Emergency exchange number [phone] PRESCRIPTIONS GIVEN TO PATIENT/FAMILY MEDICATION INSTRUCTIONS Take [...] discharge instructions. 06/03/2012 Hydrocodone/Acetaminophen (By mouth) Acetaminophen (n-tlfk-r-MIN-oh-fen), Hydrocodone Bitartrate (nqq-ikrd-JWS-done qeo-VPC-rkadx) Treats moderate to moderately severe pain. This medicine contains a narcotic pain reliever. Brand Name(s):Vicodin ES, Vicodin, Lortab 7.5/500, Lortab 10/500, Roy, Lortab 5/500, Xodol 7.5/300, Xodol 5/300, Lorcet Plus, Lorcet 10/650, Zydone, Theracodophen-650, Anexsia, Co-Gesic, Xlhvubeidnibm-Tfo-35 There may be other brand names for [...] pharmacist before using any other medicine, including mhnl-kgb-gooinyp medicines, vitamins, and herbal products. ?? Make [...] including products with brand names such as [place] Plus??, Comtrex??, Drixoral??, Excedrin Migraine??, Midol??, Sinutab??, [...] may report side effects to FDA at 7-219-FLK-7932 Copyright ?? 2012. [employer]. All rights reserved. Information is for End User's use only andmay not be sold, redistributed or otherwise used for commercial purposes. The above information is an sanitary aide only. It is not intended as [...] being discharged from anesthesia care. [facility] DIRECTOR * Virgen Rosen, DO - 06/03/2012 6:40 [...] controlled Past Surgical History Procedure Date ??? [place] tooth extraction No family history on file. [...] for this basename: PT,INR,PTT in the last 30395 hours Test:No results found for this basename: HCGURINE in the last 59520 hours VITAL SIGNS Temp: 98.4 ??F Pulse: [...] alert and oriented x3, emotional state normal. Medical Data Analyst: <> Breast: <> Rectal: <> IMPRESSION: 1. [...] Yañez DO - 06/03/2012 12:50 PM CDT [facility] Operative Report [facility] OPERATIVE REPORT PATIENT: : DWIGHT LENNIE EMR#: [id number] ADMIT DATE: 06/03/2012[facility] [id number] DATE OF SURGERY: 06/03/2012DOB: 1965 PHYSICIAN: MIGUEL [...] the operation. Flako Yañez DO MGV/MedQ #: [id number] documented in this encounter Miscellaneous Notes * [...] CDT) BUN 15 7.0 - 21.0 mg/dL [facility] Sodium 141 136 - 145 mmol/L [facility] Potassium 4.0 3.5 - 5.1 mmol/L [facility] Chloride 107 98.0 - 107.0 mmol/L [facility] CO2 28 22.0 - 30.0 mmol/L [facility] Anion Gap 6.0 [facility] Glucose 100 74 - 106 mg/dL [facility] Creatinine 0.67 0.5 - 1.3 mg/dL [facility] Calcium 8.7 8.5 - 10.1 mg/dL [facility] eGFR by MDRD 128 mL/min/1.73 m2 [facility] Blood specimen (specimen) BLOOD SPECIMEN / Unknown 06/03/2012 6:02 AM CDT 06/03/2012 6:12 AM CDT Toni Muñoz MD LAB - CHEMISTRY ELIZAEcho LAMRAMON Performing Organization Address [facility] Co de Phone Number [facility] [address] [place] [address] * EKG 12-LEAD (06/03/2012 4:47 AM CDT) Ventricular Rate 74 BPM [facility] Atrial Rate 74 BPM [facility] P-R Interval 172 ms [facility] QRS Duration ms 108 ms [facility] Q-T Interval ms 394 ms [facility] QTC Calculation (Bezet) 437 ms [facility] Calculated P [place] 34 degrees [facility] Calculated R [place] 35 degrees [facility] Calculated T [place] 23 degrees [facility] Interpretation EKG Normal sinus rhythm Normal ECG No previous ECGs available Confirmed by ATTILA MERINO MD ([id number]) on 06/05/2012 9:12:30 AM [facility] 06/03/2012 4:47 AM CDT 06/05/2012 9:12 AM CDT Narrative Transcriptions Document, Scanned - 06/03/2012 3:42 PM CDT Document, Scanned - 06/05/2012 9:14 AM CDT Toni Muñoz MD ECG ORDERABLES Performing Organization Address [facility] Co de Phone Number [facility] documented in this encounter Visit Diagnoses [...]
--- OUTSIDE RECORDS SUMMARY | 2024-09-06 23:59 | XMS_ITS | Encounter Summary ---
Author Organization [facility] Address [address] [address] Care Team Providers Care Test Engine Evaluator Name Role Phone Unavailable Primary Care Provider Unavailabl e Reason for Visit * Reason Onset Date Comments MEDICATION REFILL 04/24/2012 Encounter Details Date Type Department Care Team (Late st Contact Info) Description 04/24/2012 Refill [facility] Medical [facility] - Family Medicine [address] [place] [address] Jose Rust DO [address] [place] [address] MEDICATION REFILL Social History Tobacco Use Types Packs/Day Years Used Date Smoking Tobacco: Former Cigarettes Q uit: 12/07/2010 Smokeless Tobacco: Never Alcohol Use Standard Drinks/Week Comments Not Asked 0 (1 standard drink = 0.6 oz pur e alcohol) Sex and Gender Information Value Date Recorded Sex Assigned at Male 08/31/2020 7:44 AM END TRIMMER Gender Identity Male 08/31/2020 7:44 AM END TRIMMER Sexual Orientation Straight 08/31/2020 7: 44 AM END TRIMMER documented as of this encounter Miscellaneous Notes [...]
--- OUTSIDE RECORDS SUMMARY | 2024-09-06 23:59 | XMS_ITS | Encounter Summary ---
Author Organization [facility] Address [address] [place] [address] Care Team Providers Care Alterations Manager Name Role Phone Alf Khan DO [...] Description 12/01/2013 9:00 AM CDT Office Visit [facility] - Family Medicine [address] [place] [address] Tadeo Agarwal, DENTISTRY TEACHER-LAMINATING 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 [address] [id number] URI (upper respiratory infection) (Primary Dx); Hyperlipidemia Social History Tobacco Use Types Packs/Day Years Used Date Smoking Tobacco: Former Cigarettes 1.5 25 0 12/07/1985 - 12/07/2010 Smokeless Tobacco: Never Alcohol Use Standard Drinks/Week Comments Yes 0 (1 standard drink = 0.6 oz pur e alcohol) Sex and Gender Information Value Date Recorded Sex Assigned at Male 08/31/2020 7:44 AM FILL TECHNICIAN Gender Identity Male 08/31/2020 7:44 AM FILL TECHNICIAN Sexual Orientation Straight 08/31/2020 7: 44 AM FILL TECHNICIAN documented as of this encounter Last [...] this encounter Progress Notes * Tadeo Agarwal, DAMIEN-LAMINATING 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 - 12/01/2013 9:12 AM CDT SUBJECTIVE: [place] [...] controlled Past Surgical History Procedure Date ??? [place] tooth extraction ??? Hernia repair, ventral 06/03/2012 [...] hyperlipidemia documented in this encounter Care Teams Alterations Manager Relationship Specialty Start Date End Date Alf Khan DO PCP - General Family Medicine 09/03/13 02/27/23 documented as of this encounter
--- OUTSIDE RECORDS SUMMARY | 2024-09-06 23:59 | XMS_ITS | Encounter Summary ---
Author Organization [facility] Address [address] [place] [address] Care Team Providers Care Health Social Work Professor Name Role Phone Alf Khan DO Primary Care Provider Stephan rosa Reason for Visit * Reason Comments MEDICATION REFILL patient here today t o dicuss refill medicaton for pain medication Encounter Details Date Type Department Care Team (Latest Contact Info) Description 01/28/2015 8:45 AM CDT Office Visit [facility] - Family Medicine [address] [place] [address] Alf Khan DO Left cervical radiculopathy (Primary [...] Sex Assigned at Male 08/31/2020 7:44 AM WARRANTY ADMINISTRATOR Gender Identity Male 08/31/2020 7:44 AM WARRANTY ADMINISTRATOR Sexual Orientation Straight 08/31/2020 7: 44 AM WARRANTY ADMINISTRATOR documented as of this encounter Last Filed [...] about your medicines. ??? Do not take fdsu-jhj-ocdgzst medicine or herbal supplements without talking to [...] Where can I go for more information? [place] [employer] National Center: http://www.americanheart.org 1. In the top header, click ???Conditions?? . 2. In the top header, click ???high blood pressure.?? 3. For a printable blood pressure tracker, scroll toward the bottom of the page to Related Tools, and click ???HBP Trackers.?? 1-752-QEX-USA-1 or ( ) National Heart, Lung and Blood [place]: http://www.nhlbi.nih.gov/health/infoctr/index.htm documented in this encounter Progress Notes * Alf Khan, DO - 01/28/2015 8:36 AM CDT Office Visit, Established Patient, [id number] HISTORY: CC & HPI: Trenton Crockett is a 49 y.o. male established patient, here for: Chief Complaint Patient presents with ??? MEDICATION REFILL patient here today to [facility] medicaton for pain medication HPI: He [...] Referral Reason: Specialty Services Required Referral Location: [facility] Number of Visits Requested: 10 ??? hydrocodone-acetaminophen [...] Cervicalgia documented in this encounter Care Teams Health Social Work Professor Relationship Specialty Start Date End Date Alf Khan DO PCP - General Family Medicine 09/03/13 02/27/23 documented as of this encounter
--- OUTSIDE RECORDS SUMMARY | 2024-09-06 23:59 | XMS_ITS | Encounter Summary ---
Author Organization [facility] Address [address] [place] [address] Care Team Providers Care Docking Saw Operator Name Role Phone Unavailable Primary Care Provider Unavailabl e Reason for Visit * Reason Onset Date Comments MEDICATION REFILL 08/05/2013 Encounter Details Date Type Department Care Team (Late st Contact Info) Description 08/05/2013 Refill [facility] - Family Medicine [address] [place] [address] Jose Rust DO [address] [place] [address] MEDICATION REFILL Social History Tobacco Use Types Packs/Day Years Used Date Smoking Tobacco: Former Cigarettes 1.5 25 0 12/07/1985 - 12/07/2010 Smokeless Tobacco: Never Alcohol Use Standard Drinks/Week Comments Yes 0 (1 standard drink = 0.6 oz pur e alcohol) Sex and Gender Information Value Date Recorded Sex Assigned at Male 08/31/2020 7:44 AM FIFTH GRADE TEACHER Gender Identity Male 08/31/2020 7:44 AM FIFTH GRADE TEACHER Sexual Orientation Straight 08/31/2020 7: 44 AM FIFTH GRADE TEACHER documented as of this encounter Miscellaneous Notes * Telephone Encounter - Izzy Galan MA - 08/05/2013 10:20 AM CST [place] Crockett Allergies Allergen Reactions ??? Perry Inhibitors Cough Requested Prescriptions Pending Prescriptions Disp Refills ??? valsartan (DIOVAN) 160 MG tablet 30 Tab Sig: Take 1 Tab by mouth once daily. Last Refill-04/10/13 #30 r2 Last OV-04/10/13 H GRADE TEACHER documented in this encounter Plan of Treatment Not on file documented as of this encounter Visit Diagnoses Diagnosis HTN (hypertension), benign- Primary Essential hypertension, benign documented in this encounter
--- OUTSIDE RECORDS SUMMARY | 2024-09-06 23:59 | XMS_ITS | Encounter Summary ---
Author Organization [facility] Address [address] [place] [address] Care Team Providers Care Rfid Systems Architect Name Role Phone Unavailable Primary Care Provider Trang e Encounter Details Date Type Department Care Team (Latest Contact Info) Description 05/17/2011 8:23 AM CDT - 05/17/2011 11:59 PM CDT Hospital Encounter [facility] Health Imaging Services - Ultrasound [address] [place] [address] Jose Rust DO [address] [place] [address] Discharge Disposition: Home or Self Care Social History Tobacco Use Types Packs/Day Years Used Date Smoking Tobacco: Former Cigarettes Q uit: 12/07/2010 Smokeless Tobacco: Never Alcohol Use Standard Drinks/Week Comments Not Asked 0 (1 standard drink = 0.6 oz pur e alcohol) Sex and Gender Information Value Date Recorded Sex Assigned at Male 08/31/2020 7:44 AM AUTO AIR CONDITIONING MECHANIC Gender Identity Male 08/31/2020 7:44 AM AUTO AIR CONDITIONING MECHANIC Sexual Orientation Straight 08/31/2020 7: 44 AM AUTO AIR CONDITIONING MECHANIC documented as of this encounter Medications at [...]
--- OUTSIDE RECORDS SUMMARY | 2024-09-06 23:59 | XMS_ITS | Encounter Summary ---
Author Organization [facility] Address [address] [place] [address] Care Team Providers Care Dry House Attendant Name Role Phone Unavailable Primary Care Provider Unavailabl e Reason for Visit * Reason Onset Date Comments MEDICATION REFILL 07/24/2011 Encounter Details Date Type Department Care Team (Late st Contact Info) Description 07/24/2011 Refill [facility] Medical [facility] - Family Medicine [address] [place] [address] Jose Rust DO [address] [place] [address] MEDICATION REFILL Social History Tobacco Use Types Packs/Day Years Used Date Smoking Tobacco: Former Cigarettes Q uit: 12/07/2010 Smokeless Tobacco: Never Alcohol Use Standard Drinks/Week Comments Not Asked 0 (1 standard drink = 0.6 oz pur e alcohol) Sex and Gender Information Value Date Recorded Sex Assigned at Male 08/31/2020 7:44 AM ANTIQUE COLLECTOR Gender Identity Male 08/31/2020 7:44 AM ANTIQUE COLLECTOR Sexual Orientation Straight 08/31/2020 7: 44 AM ANTIQUE COLLECTOR documented as of this encounter Miscellaneous Notes * Telephone Encounter - Perla Martinez - 07/24/2011 10:20 AM CST Rx approved and sent to pharmacy QUE COLLECTOR * Telephone Encounter - Liv Klein - 07/24/2011 10:15 AM CST Requested Prescriptions Pending Prescriptions Disp Refills ??? amlodipine-benazepril (LOTREL) 5-20 MG capsule 30 Cap Sig: Take 1 Cap by mouth once daily. Allergies Allergen Reactions ??? Perry Inhibitors Cough michael 05-23-11 Last refill 06-16-11 QUE COLLECTOR documented in this encounter Plan of Treatment Not on file documented as of this encounter Visit Diagnoses Diagnosis HTN (hypertension), benign- Primary Essential hypertension, benign documented in this encounter
--- OUTSIDE RECORDS SUMMARY | 2024-09-06 23:59 | XMS_ITS | Encounter Summary ---
Author Organization [facility] Address [address] [place] [address] Care Team Providers Care English Faculty Member Name Role Phone Alf Khan DO Primary Care Provider Stephan rosa Pcp, Manuel Melgar Primary Care Provider Lori ailable Encounter Details Date Type Department Care Team (Late st Contact Info) Description 08/29/2015 [facility] Outpatient Visit [facility] - Family Medicine [address] [place] [address] Alf Khan, Social History Tobacco Use Types Packs/Day Years Used Date Smoking Tobacco: Former Cigarettes 1.5 25 0 12/07/1985 - 12/07/2010 Smokeless Tobacco: Never Alcohol Use Standard Drinks/Week Comments Yes 0 (1 standard drink = 0.6 oz pur e alcohol) social Sex and Gender Information Value Date Recorded Sex Assigned at Male 08/31/2020 7:44 AM WAGON WASHER Gender Identity Male 08/31/2020 7:44 AM WAGON WASHER Sexual Orientation Straight 08/31/2020 7: 44 AM WAGON WASHER documented as of this encounter Functional Status [...] filedocumented in this encounter Care Teams English Faculty Member Relationship Specialty Start Date End Date Alf Khan DO PCP - General Family Medicine 09/03/13 02/27/23 PcpManuel PCP - General 02/28/23 documented as of this encounter
--- OUTSIDE RECORDS SUMMARY | 2024-09-06 23:59 | XMS_ITS | Encounter Summary ---
Author Organization [facility] Address [address] [place] [address] Care Team Providers Care High Risk Ob Name Role Phone Unavailable Primary Care Provider Unavailabl e Reason for Visit * Reason Comments Hypertension Patient is here for a recheck on his blood pressure and lipids. He did have lipids done 05/06, currently taking Pravastatin , denies any problems. Hyperlipidemia Encounter Details Date Type Department Care Team (Late st Contact Info) Description 12/13/2011 9:15 AM CDT Office Visit [facility] - Family Medicine [address] [place] [address] Jose Rust, [address] [place] [address] HTN (hypertension), benign (Primary Dx) Social History Tobacco Use Types Packs/Day Years Used Date Smoking Tobacco: Former Cigarettes Q uit: 12/07/2010 Smokeless Tobacco: Never Alcohol Use Standard Drinks/Week Comments Not Asked 0 (1 standard drink = 0.6 oz pur e alcohol) Sex and Gender Information Value Date Recorded Sex Assigned at Male 08/31/2020 7:44 AM BAGMAN/WOMAN Gender Identity Male 08/31/2020 7:44 AM BAGMAN/WOMAN Sexual Orientation Straight 08/31/2020 7: 44 AM BAGMAN/WOMAN documented as of this encounter Last Filed [...]
--- OUTSIDE RECORDS SUMMARY | 2024-09-06 23:59 | XMS_ITS | Encounter Summary ---
Author Organization [facility] Address [address] [place] [address] Care Team Providers Care Quality Systems Technician Name Role Phone Alf Khan DO Primary Care Provider Stephan rosa Reason for Referral * Radiology Services - Closed Specialty Diagnoses / Procedures Referred By Jean sosa Referred To Contact Diagnoses Abdominal pain, RUQ (right upper quadrant) Nausea alone Procedures US ABDOMEN LIMITED Alf Khan DO [place] [address] Referral ID Status Reason Start Date Expiration Date Visits Re quested Visits Authorized [id number] Closed 04/05/2014 10/02/2014 1 1 Reason for [...] Description 04/05/2014 2:45 PM CDT Office Visit [facility] - Family Medicine [address] [place] [address] Alf Khan DO IBS (irritable bowel syndrome) [...] Sex Assigned at Male 08/31/2020 7:44 AM CHILD WELFARE WORKER Gender Identity Male 08/31/2020 7:44 AM CHILD WELFARE WORKER Sexual Orientation Straight 08/31/2020 7: 44 AM CHILD WELFARE WORKER documented as of this encounter Last [...] to Related Tools, and click ???HBP Trackers.?? 8-218-OLU-USA-1 or ( ) National Heart, Lung and Blood [place]: http://www.nhlbi.nih.gov/health/infoctr/index.htm documented in this encounter Progress Notes * Izzy Galan MA - 04/08/2014 12:57 PM CDTQuick Note: Patient informed. * Alf Khan DO - 04/06/2014 7:52 AM CDTQuick Note: PSA normal * Alf Khan DO - 04/05/2014 6:58 PM CDT Office Visit, Established Patient, [id number] HISTORY: CC & HPI: [place]on Crockett is [...] Placed This Encounter ??? US ABDOMEN LIMITED [facility] Imaging Outpatient registration [id number] Central scheduling [phone] Standing Status: Future Number of Occurrences: Standing [...] Patient scheduled for US Abd Ltd at [facility] Imaging on 04/08/2014 at 8:40 am. Patient [...] - 4.0 ng/mL [facility] ACCOUNT BILL Comment: [facility] ECLIA methodology. ? . According to the [place] [employer], Serum PSA should decrease and [...] PM CDT Narrative Resulting Agency Comment [facility] [address] ??[facility] [phone] Alf Khan DO LAB - CHEMISTRY LIZABETH [...] alone documented in this encounter Care Teams Quality Systems Technician Relationship Specialty Start Date End Date Alf Khan DO PCP - General Family Medicine 09/03/13 02/27/23 documented as of this encounter
--- OUTSIDE RECORDS SUMMARY | 2024-09-06 23:59 | XMS_ITS | Encounter Summary ---
Author Organization [facility] Address [address] [place] [address] Care Team Providers Care Telegraph Repeater Technician Name Role Phone Unavailable Primary Care [...] Description 04/10/2013 1:30 PM CDT Office Visit [facility] - Family Medicine [address] [place] [address] Jose Rust DO [address] [place] [address] HTN (hypertension), benign (Primary Dx); Hyperlipidemia; BPH (benign prostatic hypertrophy) Social History Tobacco Use Types Packs/Day Years Used Date Smoking Tobacco: Former Cigarettes 1.5 25 0 12/07/1985 - 12/07/2010 Smokeless Tobacco: Never Alcohol Use Standard Drinks/Week Comments Yes 0 (1 standard drink = 0.6 oz pur e alcohol) Sex and Gender Information Value Date Recorded Sex Assigned at Male 08/31/2020 7:44 AM CONSTRUCTION IRONWORKER HELPER Gender Identity Male 08/31/2020 7:44 AM CONSTRUCTION IRONWORKER HELPER Sexual Orientation Straight 08/31/2020 7: 44 AM CONSTRUCTION IRONWORKER HELPER documented as of this encounter Last [...] 1:51 PM CDT Office Visit, Established Patient, [id number] HISTORY: (4+ elements or 3+ chronic) CC [...] DIPSTICK AUTO (04/10/2013 2:20 PM CDT) Specific [place] UA 1.026 1.005 - 1.030 [facility] ACCOUNT [...] 6:37 PM CDT Narrative Resulting Agency Comment [facility] [address] ??[facility] [phone] Jose Rust DO LAB - URINALYSIS ORD ERABLES [facility] ACCOUNT BILL * PROSTATE SPECIFIC ANTIGEN SCREEN (04/10/2013 2:16 PM CDT) PSA 1.6 0.0 - 4.0 ng/mL [facility] ACCOUNT BILL Comment: [facility] ECLIA methodology. ? . According to the [place] [employer], Serum PSA should decrease and [...] 6:37 PM CDT Narrative Resulting Agency Comment [facility] [address] ??[facility] [phone] Jose Rust DO LAB - CHEMISTRY ORDE [...] PM CDT Narrative Resulting Agency Comment [facility] [address] ??[facility] [phone] Jose Rust DO LAB - CHEMISTRY LIZABETH [...] PM CDT Narrative Resulting Agency Comment [facility] [address] ??[facility] [phone] Jose Rust DO LAB - CHEMISTRY LIZABETH [facility] Organization Address City/State/ZIP Co de Phone Number [facility] ACCOUNT BILL documented in this encounter Visit Diagnoses Diagnosis HTN (hypertension), benign- Primary Essential hypertension, benign Hyperlipidemia Other and unspecified hyperlipidemia BPH (benign prostatic hypertrophy) Hypertrophy of prostate without urinary obstruction and other lower urinary tract symptoms (LUTS) documented in this encounter
--- OUTSIDE RECORDS SUMMARY | 2024-09-06 23:59 | XMS_ITS | Encounter Summary ---
Author Organization [facility] Health Address [address] [place] [address] Care Team Providers Care Inventory Control/Shipping Receiving Name Role Phone Alf Khan DO Primary Care Provider Stephan rosa Reason for Visit * Reason Onset Date Comments MEDICATION REFILL 08/09/2016 Encounter Details Date Type Department Care Team (Late st Contact Info) Description 08/09/2016 Refill [facility] - Family Medicine [address] [place] [address] Alf Khan, DO MEDICATION REFILL Social History Tobacco Use Types Packs/Day Years Used Date Smoking Tobacco: Former Cigarettes 1.5 25 0 12/07/1985 - 12/07/2010 Smokeless Tobacco: Never Alcohol Use Standard Drinks/Week Comments Yes 0 (1 standard drink = 0.6 oz pur e alcohol) social Sex and Gender Information Value Date Recorded Sex Assigned at Male 08/31/2020 7:44 AM STEEL PICKLER Gender Identity Male 08/31/2020 7:44 AM STEEL PICKLER Sexual Orientation Straight 08/31/2020 7: 44 AM STEEL PICKLER COVID-19 Exposure Response Date Recorded In the [...] - CowanJessica Beltran - 08/09/2016 4:02 PM STEEL PICKLER [place]on Crockett Allergies Allergen Reactions ??? Perry Inhibitors Cough Requested Prescriptions Pending Prescriptions Disp Refills ??? omeprazole (PRILOSEC) 20 MG capsule 30 Cap 5 Sig: Take 1 Cap by mouth once daily Last Refill: 10/12/15 Last OV: 07/23/16 pcp Next OV: none L PICKLER documented in this encounter Plan of Treatment Not on file documented as of this encounter Goals Goal Patient Goal Type Associated Problems Recent Progress Patient-Stated? Author Blood Pressure < 140/90 Blood Pressure 172/93(2022 8:59 AM CDT) No Zachary Moreno Quit smoking / using tobacco Lifestyle No Puja Raymundo documented as of this encounter Visit Diagnoses Not on filedocumented in this encounter Care Teams Inventory Control/Shipping Receiving Relationship Specialty Start Date End Date Alf Khan DO PCP - General Family Medicine 09/03/13 02/27/23 documented as of this encounter
--- OUTSIDE RECORDS SUMMARY | 2024-09-06 23:59 | XMS_ITS | Encounter Summary ---
Author Organization [facility] Address [address] [place] [address] Care Team Providers Care Offal Icer Poultry Name Role Phone Unavailable Primary Care Provider Trang e Encounter Details Date Type Department Care Team (Late st Contact Info) Description 04/13/2013 Orders Only [facility] - Family Medicine [address] [place] [address] Jose Rust DO [address] [place] [address] Hepatic steatosis Social History Tobacco Use Types Packs/Day Years Used Date Smoking Tobacco: Former Cigarettes 1.5 25 0 12/07/1985 - 12/07/2010 Smokeless Tobacco: Never Alcohol Use Standard Drinks/Week Comments Yes 0 (1 standard drink = 0.6 oz pur e alcohol) Sex and Gender Information Value Date Recorded Sex Assigned at Male 08/31/2020 7:44 AM VIROLOGY TEACHER Gender Identity Male 08/31/2020 7:44 AM VIROLOGY TEACHER Sexual Orientation Straight 08/31/2020 7: 44 AM VIROLOGY TEACHER documented as of this encounter Progress Notes [...] PM CDT Narrative Resulting Agency Comment [facility] [place] [id number] [facility] ??[facility]ly [facility] [id number] Jose Rust DO LAB - CHEMISTRY LIZABETH WILEY [facility] Organization Address City/State/ZIP Co de Phone Number [facility] ACCOUNT BILL documented in this encounter Visit Diagnoses Diagnosis Hepatic steatosis- Primary Other chronic nonalcoholic liver disease documented in this encounter
--- OUTSIDE RECORDS SUMMARY | 2024-09-06 23:59 | XMS_ITS | Encounter Summary ---
Author Organization [facility] Address [address] [place] [address] Care Team Providers Care Rubber Stamp Assembler Name Role Phone Unavailable Primary Care Provider Unavailabl e Reason for Visit * Reason Onset Date Comments Medication Problem 11/25/2012 Encounter Details Date Type Department Care Team (Late st Contact Info) Description 11/25/2012 Telephone [facility] - Family Medicine [address] [place] [address] Jose Rust DO [address] [place], [place] [id number] Medication Problem Social History Tobacco Use Types Packs/Day Years Used Date Smoking Tobacco: Former Cigarettes 1.5 25 0 12/07/1985 - 12/07/2010 Smokeless Tobacco: Never Alcohol Use Standard Drinks/Week Comments Yes 0 (1 standard drink = 0.6 oz pur e alcohol) Sex and Gender Information Value Date Recorded Sex Assigned at Male 08/31/2020 7:44 AM INSPECTOR OPEN DIE Gender Identity Male 08/31/2020 7:44 AM INSPECTOR OPEN DIE Sexual Orientation Straight 08/31/2020 7: 44 AM INSPECTOR OPEN DIE documented as of this encounter Miscellaneous Notes [...]
--- OUTSIDE RECORDS SUMMARY | 2024-09-06 23:59 | XMS_ITS | Encounter Summary ---
Author Organization [facility] Address [address] [address] Care Team Providers Care Toy Stuffer Name Role Phone Unavailable Primary Care Provider Unavailnathalie e Reason for Visit * Reason Onset Date Comments MEDICATION REFILL 06/26/2013 Encounter Details Date Type Department Care Team (Late st Contact Info) Description 06/26/2013 Refill [facility] - Family Medicine [address] [place] [address] Jose Rust DO [address] [place] [address] MEDICATION REFILL Social History Tobacco Use Types Packs/Day Years Used Date Smoking Tobacco: Former Cigarettes 1.5 25 0 12/07/1985 - 12/07/2010 Smokeless Tobacco: Never Alcohol Use Standard Drinks/Week Comments Yes 0 (1 standard drink = 0.6 oz pur e alcohol) Sex and Gender Information Value Date Recorded Sex Assigned at Male 08/31/2020 7:44 AM POSSUM TRAPPER Gender Identity Male 08/31/2020 7:44 AM POSSUM TRAPPER Sexual Orientation Straight 08/31/2020 7: 44 AM POSSUM TRAPPER documented as of this encounter Miscellaneous Notes [...]
--- OUTSIDE RECORDS SUMMARY | 2024-09-06 23:59 | XMS_ITS | Encounter Summary ---
Author Organization [facility] Health Address [address] [place] [address] Care Team Providers Care Rig Site Engineer Name Role Phone Unavailable Primary Care Provider Unavailabl e Reason for Visit * Reason Onset Date Comments Medication Clarification 05/17/2011 Encounter Details Date Type Department Care Team (Late st Contact Info) Description 05/17/[address] [facility] - Family Medicine [address] [place] [address] Jose Rust DO [address] [place], [place] [id number] Medication Clarification Social History Tobacco Use Types Packs/Day Years Used Date Smoking Tobacco: Former Cigarettes Q uit: 12/07/2010 Smokeless Tobacco: Never Alcohol Use Standard Drinks/Week Comments Not Asked 0 (1 standard drink = 0.6 oz pur e alcohol) Sex and Gender Information Value Date Recorded Sex Assigned at Male 08/31/2020 7:44 AM COMPRESSOR BATTERY PELLETS Gender Identity Male 08/31/2020 7:44 AM COMPRESSOR BATTERY PELLETS Sexual Orientation Straight 08/31/2020 7: 44 AM COMPRESSOR BATTERY PELLETS documented as of this encounter Miscellaneous Notes [...]
--- OUTSIDE RECORDS SUMMARY | 2024-09-06 23:59 | XMS_ITS | Encounter Summary ---
Author Organization [facility] Address [address] [place] [address] Care Team Providers Care Patient Assistant Name Role Phone Unavailable Primary Care [...] Description 11/18/2012 11:15 AM CDT Office Visit [facility] - Family Medicine [address] [place] [address] Jose Rust DO [address] [place] [address] Rectal bleeding (Primary Dx); HTN (hypertension); Dysphagia Social History Tobacco Use Types Packs/Day Years Used Date Smoking Tobacco: Former Cigarettes 1.5 25 0 12/07/1985 - 12/07/2010 Smokeless Tobacco: Never Alcohol Use Standard Drinks/Week Comments Yes 0 (1 standard drink = 0.6 oz pur e alcohol) Sex and Gender Information Value Date Recorded Sex Assigned at Male 08/31/2020 7:44 AM BIAS 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 Gender Identity Male 08/31/2020 7:44 AM BIAS 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 Sexual Orientation Straight 08/31/2020 7: 44 AM BIAS 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 documented as of this encounter [...] 12:04 PM CDT Office Visit, Established Patient, [id number] HISTORY: (4+ elements or 3+ chronic) CC [...]
--- OUTSIDE RECORDS SUMMARY | 2024-09-06 23:59 | XMS_ITS | Encounter Summary ---
Author Organization [facility] Health Address [address] [place] [address] Care Team Providers Care Sand Cutter Operator Name Role Phone Alf Khan DO Primary Care Provider Stephan rosa Reason for Visit * Reason Onset Date Comments Medication Request 07/14/2015 Encounter Details Date Type Department Care Team (Late st Contact Info) Description 07/14/2015 Telephone [facility] - Family [facility] [address] [place] [address] Alf Khan, DO Medication Request Social History Tobacco Use Types Packs/Day Years Used Date Smoking Tobacco: Former Cigarettes 1.5 25 0 12/07/1985 - 12/07/2010 Smokeless Tobacco: Never Alcohol Use Standard Drinks/Week Comments Yes 0 (1 standard drink = 0.6 oz pur e alcohol) social Sex and Gender Information Value Date Recorded Sex Assigned at Male 08/31/2020 7:44 AM DIRECTOR OF RESTAURANT OPERATIONS Gender Identity Male 08/31/2020 7:44 AM DIRECTOR OF RESTAURANT OPERATIONS Sexual Orientation Straight 08/31/2020 7: 44 AM DIRECTOR OF RESTAURANT OPERATIONS documented as of this encounter Functional Status [...] PM CST Please sign Rx in epic CTOR OF RESTAURANT OPERATIONS * Telephone Encounter - Alf Khan DO - 07/14/2015 12:04 PM CST He is contagious and should not be working so he can have tobrex #1 1 gtt to both eyes qid CTOR OF RESTAURANT OPERATIONS * Telephone Encounter - Hanh Beltran II - 07/14/2015 9:24 AM CST Patient's called stating that the patient has [facility]. He is not able to schedule an appointment today because he has an business meeting. They would like to know if Dr Khan could prescribe something for him. Please advise CTOR OF RESTAURANT OPERATIONS documented in this encounter Plan of Treatment Not on file documented as of this encounter Goals Goal Patient Goal Type Associated Problems Recent Progress Patient-Stated? Author Blood Pressure < 140/90 Blood Pressure 172/93(2022 8:59 AM CDT) No Zachary Moreno documented as of this encounter Visit Diagnoses Not on filedocumented in this encounter Care Teams Sand Cutter Operator Relationship Specialty Start Date End Date Alf Khan DO PCP - General Family Medicine 09/03/13 02/27/23 documented as of this encounter
--- OUTSIDE RECORDS SUMMARY | 2024-09-06 23:59 | XMS_ITS | Encounter Summary ---
Author Organization [facility] Health Address [address] [place] [address] Care Team Providers Care Commercial Coordinator Name Role Phone Alf Khan DO Primary Care Provider Stephan rosa Encounter Details Date Type Department Care Team (Latest Contact Info) Description 08/17/2015 3:50 PM BOOKING OFFICER - 08/17/2015 11:59 PM BOOKING OFFICER Hospital Encounter [facility] [address] [place] [address] Cta Gonzalez, TIRE AND TUBE REPAIRER-[address] [phone] Discharge Disposition: Home or Self Care Social History Tobacco Use Types Packs/Day Years Used Date Smoking Tobacco: Former Cigarettes 1.5 25 0 12/07/1985 - 12/07/2010 Smokeless Tobacco: Never Alcohol Use Standard Drinks/Week Comments Yes 0 (1 standard drink = 0.6 oz pur e alcohol) social Sex and Gender Information Value Date Recorded Sex Assigned at Male 08/31/2020 7:44 AM BOOKING OFFICER Gender Identity Male 08/31/2020 7:44 AM BOOKING OFFICER Sexual Orientation Straight 08/31/2020 7: 44 AM BOOKING OFFICER documented as of this encounter Functional [...] 08/18/2015 9:07 AM CSTQuick Note: Pt informed ING OFFICER * Alf Khan DO - 08/17/2015 5:32 PM CSTQuick Note: Just shows some arthritic changes to L 5 vertabrae discs ok this is minor does nto explain pain so hopefully therapy will help may be muscular ING OFFICER documented in this encounter Plan of [...] 4VW OR MORE Routine 08/17/2015 4:05 PM BOOKING OFFICER Bilateral low back pain without sciatica documented in this encounter Results * XR LUMBAR SPINE 4+ VW (08/17/2015 4:05 PM BOOKING OFFICER) Anatomical Region Laterality Modality Spine Radiographic Nataliya ging 08/17/2015 4:11 PM BOOKING OFFICER Impressions 08/17/2015 4:12 PM BOOKING OFFICER No acute osseous abnormality Degenerative changes Narrative 08/17/2015 4:12 PM BOOKING OFFICER Lumbar spine 5 views Indication: Low [...] sciatica documented in this encounter Care Teams Commercial Coordinator Relationship Specialty Start Date End Date Alf Khan DO PCP - General Family Medicine 09/03/13 02/27/23 documented as of this encounter
--- OUTSIDE RECORDS SUMMARY | 2024-09-06 23:59 | XMS_ITS | Encounter Summary ---
Author Organization [facility] Address [address] [place] [address] Care Team Providers Care Mechanic And Welder Name Role Phone Unavailable Primary Care Provider Unavailabl e Reason for Visit * Reason Onset Date Comments MEDICATION REFILL 09/05/2011 Encounter Details Date Type Department Care Team (Late st Contact Info) Description 09/05/2011 Refill [facility] - Family Medicine [address] [place] [address] Jose Rust DO [address] [place] [address] MEDICATION REFILL Social History Tobacco Use Types Packs/Day Years Used Date Smoking Tobacco: Former Cigarettes Q uit: 12/07/2010 Smokeless Tobacco: Never Alcohol Use Standard Drinks/Week Comments Not Asked 0 (1 standard drink = 0.6 oz pur e alcohol) Sex and Gender Information Value Date Recorded Sex Assigned at Male 08/31/2020 7:44 AM SALARY MANAGER Gender Identity Male 08/31/2020 7:44 AM SALARY MANAGER Sexual Orientation Straight 08/31/2020 7: 44 AM SALARY MANAGER documented as of this encounter Miscellaneous Notes * Telephone Encounter - Maddy Lopez - 09/05/2011 9:12 AM CST Dosage changed on Lotrel to 1 cap daily, due to patients prescription formulary. Called to Wendy, patients spouse notified. RY MANAGER documented in this encounter Plan of Treatment Not on file documented as of this encounter Visit Diagnoses Not on filedocumented in this encounter
--- OUTSIDE RECORDS SUMMARY | 2024-09-06 23:59 | XMS_ITS | Encounter Summary ---
Author Organization [facility] Address [address] [place] [address] Care Team Providers Care Health Care Assistant Name Role Phone Alf Khan DO Primary Care Provider Stephan rosa Encounter Details Date Type Department Care Team (Late st Contact Info) Description 04/08/2014 Orders Only [facility] - Family Medicine [address] [place] [address] Alf Khan DO Hyperlipidemia Social History Tobacco Use Types Packs/Day Years Used Date Smoking Tobacco: Former Cigarettes 1.5 25 0 12/07/1985 - 12/07/2010 Smokeless Tobacco: Never Alcohol Use Standard Drinks/Week Comments Yes 0 (1 standard drink = 0.6 oz pur e alcohol) Sex and Gender Information Value Date Recorded Sex Assigned at Male 08/31/2020 7:44 AM CAMPUS CHAPLAIN Gender Identity Male 08/31/2020 7:44 AM CAMPUS [place]APLAIN Sexual Orientation Straight 08/31/2020 7: 44 AM CAMPUS CHAPLAIN documented as of this encounter Plan of Treatment Not on file documented as of this encounter Visit Diagnoses Diagnosis Hyperlipidemia Other and unspecified hyperlipidemia documented in this encounter Care Teams Health Care Assistant Relationship Specialty Start Date End Date Alf Khan DO PCP - General Family Medicine 09/03/13 02/27/23 documented as of this encounter
--- OUTSIDE RECORDS SUMMARY | 2024-09-06 23:59 | XMS_ITS | Encounter Summary ---
Author Organization [facility] Address [address] [place] [address] Care Team Providers Care Hydraulic Spinner Name Role Phone Unavailable Primary Care Provider [...] Description 05/23/2011 3:00 PM CDT Office Visit [facility] - Family Medicine [address] [place] [address] Jose Rust, [address] [place] [address] HTN (hypertension), benign (Primary Dx); Hepatic steatosis; Need for influenza vaccination Social History Tobacco Use Types Packs/Day Years Used Date Smoking Tobacco: Former Cigarettes Q uit: 12/07/2010 Smokeless Tobacco: Never Alcohol Use Standard Drinks/Week Comments Not Asked 0 (1 standard drink = 0.6 oz pur e alcohol) Sex and Gender Information Value Date Recorded Sex Assigned at Male 08/31/2020 7:44 AM REFRACTIVE SURGEON Gender Identity Male 08/31/2020 7:44 AM REFRACTIVE SURGEON Sexual Orientation Straight 08/31/2020 7: 44 AM REFRACTIVE SURGEON documented as of this encounter Last Filed [...]
--- OUTSIDE RECORDS SUMMARY | 2024-09-06 23:59 | XMS_ITS | Encounter Summary ---
Author Organization [facility] Address [address] [place] [address] Care Team Providers Care Provider Network Analyst Name Role Phone Alf Khan DO Primary Care Provider Stephan rosa Reason for Visit * Reason Comments Swelling Gland patient here today c /o swelling glands on the right side onset week Encounter Details Date Type Department Care Team (Late st Contact Info) Description 10/13/2015 4:30 PM WATCH REPAIR PERSON Office Visit [facility] - Family Medicine [address] [place] [address] Alf Khan DO Folliculitis (Primary Dx); Adenopathy; [...] Assigned at Male 08/31/2020 7:44 AM WATCH REPAIR PERSON Gender Identity Male 08/31/2020 7:44 AM WATCH REPAIR PERSON Sexual Orientation Straight 08/31/2020 7: 44 AM WATCH REPAIR PERSON documented as of this encounter Last Filed Vital Signs Vital Sign Reading Time Taken Comments Blood Pressure 145/77 10/13/2015 4:39 PM WATCH REPAIR PERSON Pulse 84 10/13/2015 4:39 PM WATCH REPAIR PERSON Temperature 37 ??C (98.6 ??F) 10/13/2015 4:39 PM WATCH REPAIR PERSON Respiratory Rate - - Oxygen Saturation 95% 10/13/2015 4:39 PM WATCH REPAIR PERSON Inhaled Oxygen Concentration - - Weight 118.8 kg (262 lb) 10/13/2015 4:39 PM WATCH REPAIR PERSON Height 180.3 cm (5' 11 ) 10/13/2015 4:39 PM WATCH REPAIR PERSON Body Mass Index 36.54 10/13/2015 4:39 PM WATCH REPAIR PERSON documented in this encounter Functional Status Functional [...] Puja Raymundo R - 10/13/2015 4:38 PM WATCH REPAIR PERSON Caring for Your High Blood Pressure Healthy [...] Where can I go for more information? [place] [employer] National Center: http://www.americanheart.org 1. In the top header, click ???Conditions?? . 2. In the top header, click ???high blood pressure.?? 3. For a printable blood pressure tracker, scroll toward the bottom of the page to Related Tools, and click ???HBP Trackers.?? 1-366-AYM-[place]-1 or ( ) National Heart, Lung and Blood [place]: http://www.nhlbi.nih.gov/health/infoctr/index.htm H REPAIR PERSON documented in this encounter Progress Notes * Alf Khan, - 10/13/2015 4:52 PM CST Office Visit, Established Patient, [id number] HISTORY: SYDNEE Doughertydominique Crockett is a 49 [...] call with any concerns or problems. H REPAIR PERSON documented in this encounter Plan of Treatment [...] health documented in this encounter Care Teams Provider Network Analyst Relationship Specialty Start Date End Date Alf Khan DO PCP - General Family Medicine 09/03/13 02/27/23 documented as of this encounter
--- OUTSIDE RECORDS SUMMARY | 2024-09-06 23:59 | XMS_ITS | Encounter Summary ---
Author Organization [facility] Address [address] [place] [address] Care Team Providers Care Air Conditioning Unit Tester Name Role Phone Alf Khan DO Primary Care Provider Stephan rosa Reason for Visit * Radiology Services - Closed Specialty Diagnoses / Procedures Referred By Jean sosa Referred To Contact Nuclear Medicine Diagnoses Nausea alone Procedures NM HEPATOBILIARY FUNCTION SCAN NM HEPATOBILIARY WITH CCK Alf Khan DO [address] [place] [address] Referral ID Status Reason Start Date Expiration Date Visits Re quested Visits Authorized [id number] Closed 04/16/2014 10/13/2014 1 1 Encounter Details Date Type Department Care Team (Latest Contact Info) Description 04/16/2014 7:22 AM CDT - 04/16/2014 11:59 PM CDT Hospital Encounter [facility] - Nuclear Medicine [address] [place] [id number] Alf Khan DO Discharge Disposition: Home or Self Care Social History Tobacco Use Types Packs/Day Years Used Date Smoking Tobacco: Former Cigarettes 1.5 25 0 12/07/1985 - 12/07/2010 Smokeless Tobacco: Never Alcohol Use Standard Drinks/Week Comments Yes 0 (1 standard drink = 0.6 oz pur e alcohol) social Sex and Gender Information Value Date Recorded Sex Assigned at Male 08/31/2020 7:44 AM SUPERVISOR PLATING AND POINT ASSEMBLY Gender Identity Male 08/31/2020 7:44 AM SUPERVISOR PLATING AND POINT ASSEMBLY Sexual Orientation Straight 08/31/2020 7: 44 AM SUPERVISOR PLATING AND POINT ASSEMBLY documented as of this encounter Functional Status [...] alone documented in this encounter Care Teams Air Conditioning Unit Tester Relationship Specialty Start Date End Date Alf Khan DO PCP - General Family Medicine 09/03/13 02/27/23 documented as of this encounter
--- OUTSIDE RECORDS SUMMARY | 2024-09-06 23:59 | XMS_ITS | Encounter Summary ---
Author Organization [facility] Address [address] [place] [address] Care Team Providers Care Pattern Technician Name Role Phone Unavailable Primary Care Provider Unavailabl e Reason for Visit * Reason Onset Date Comments Erroneous encounter-disregard 11/25/2012 Encounter Details Date Type Department Care Team (Late st Contact Info) Description 11/25/[address] [facility] Medical [facility] - Family Medicine [address] [place] [address] Jose Rust DO [address] [place] [address] Erroneous encounter-disregard Social History Tobacco Use Types Packs/Day Years Used Date Smoking Tobacco: Former Cigarettes 1.5 25 0 12/07/1985 - 12/07/2010 Smokeless Tobacco: Never Alcohol Use Standard Drinks/Week Comments Yes 0 (1 standard drink = 0.6 oz pur e alcohol) Sex and Gender Information Value Date Recorded Sex Assigned at Male 08/31/2020 7:44 AM ERP BUSINESS ANALYST Gender Identity Male 08/31/2020 7:44 AM ERP BUSINESS ANALYST Sexual Orientation Straight 08/31/2020 7: 44 AM ERP BUSINESS ANALYST documented as of this encounter Plan of Treatment Not on file documented as of this encounter Visit Diagnoses Not on filedocumented in this encounter
--- OUTSIDE RECORDS SUMMARY | 2024-09-06 23:59 | XMS_ITS | Encounter Summary ---
Author Organization [facility] Address [address] [place] [address] Care Team Providers Care Senior Adults Director Name Role Phone Alf Khan DO Primary Care Provider Stephan rosa Reason for Visit * Reason Onset Date Comments Referral 08/17/2015 Encounter Details Date Type Department Care Team (Late st Contact Info) Description 08/17/2015 Telephone [facility] - Family [facility] [address] [place] [address] Alf Khan, DO Referral Social History Tobacco Use Types Packs/Day Years Used Date Smoking Tobacco: Former Cigarettes 1.5 25 0 12/07/1985 - 12/07/2010 Smokeless Tobacco: Never Alcohol Use Standard Drinks/Week Comments Yes 0 (1 standard drink = 0.6 oz pur e alcohol) social Sex and Gender Information Value Date Recorded Sex Assigned at Male 08/31/2020 7:44 AM POWER LINE INSTALLER AND REPAIRER Gender Identity Male 08/31/2020 7:44 AM POWER LINE INSTALLER AND REPAIRER Sexual Orientation Straight 08/31/2020 7: 44 AM POWER LINE INSTALLER AND REPAIRER documented as of this encounter Functional [...] Dr Khan at his office visit today R LINE INSTALLER AND REPAIRER * Telephone Encounter - Alf Khan DO - 08/17/2015 12:33 PM CST Unfortunately it is not that easy If I just order sleep study w/o documentation of need at an office visit they will not cover it. R LINE INSTALLER AND REPAIRER * Telephone Encounter - Andrea Galaviz MA - 08/17/2015 10:18 AM POWER LINE INSTALLER AND REPAIRER Patient needs a referral to a pourer bull ladle for a sleep study per DOT physical doctor. Will you order the referral the referral for the patient. Please advise. R LINE INSTALLER AND REPAIRER documented in this encounter Plan of Treatment Not on file documented as of this encounter Goals Goal Patient Goal Type Associated Problems Recent Progress Patient-Stated? Author Blood Pressure < 140/90 Blood Pressure 172/93(2022 8:59 AM CDT) No Zachary Moreno documented as of this encounter Visit Diagnoses Not on filedocumented in this encounter Care Teams Senior Adults Director Relationship Specialty Start Date End Date Alf Khan DO PCP - General Family Medicine 09/03/13 02/27/23 documented as of this encounter
--- OUTSIDE RECORDS SUMMARY | 2024-09-06 23:59 | XMS_ITS | Encounter Summary ---
Author Organization [facility] Address [address] [place] [address] Care Team Providers Care Almond Blancher Hand Name Role Phone Unavailable Primary Care Provider [...] Description 02/12/2012 4:00 PM CDT Office Visit [facility] - Family Medicine [address] [place] [address] Jose Rust, [address] [place] [address] Umbilical hernia (Primary Dx) Social History Tobacco Use Types Packs/Day Years Used Date Smoking Tobacco: Former Cigarettes Q uit: 12/07/2010 Smokeless Tobacco: Never Alcohol Use Standard Drinks/Week Comments Not Asked 0 (1 standard drink = 0.6 oz pur e alcohol) Sex and Gender Information Value Date Recorded Sex Assigned at Male 08/31/2020 7:44 AM VISUAL MERCHANDISER Gender Identity Male 08/31/2020 7:44 AM VISUAL MERCHANDISER Sexual Orientation Straight 08/31/2020 7: 44 AM VISUAL MERCHANDISER documented as of this encounter Last Filed [...]
--- OUTSIDE RECORDS SUMMARY | 2024-09-06 23:59 | XMS_ITS | Encounter Summary ---
Author Organization [facility] Address [address] [place] [address] Care Team Providers Care Personal Care Aide Name Role Phone Alf Khan DO Primary Care Provider Stephan rosa Reason for Visit * Reason Comments Refill Request Encounter Details Date Type Department Care Team (Late st Contact Info) Description 10/11/[address] [facility] - Family Medicine [address] [place] [address] Alf Khan, DO Refill Request Social History Tobacco Use Types Packs/Day Years Used Date Smoking Tobacco: Former Cigarettes 1.5 25 0 12/07/1985 - 12/07/2010 Smokeless Tobacco: Never Alcohol Use Standard Drinks/Week Comments Yes 0 (1 standard drink = 0.6 oz pur e alcohol) social Sex and Gender Information Value Date Recorded Sex Assigned at Male 08/31/2020 7:44 AM FISCAL ASSISTANT Gender Identity Male 08/31/2020 7:44 AM FISCAL ASSISTANT Sexual Orientation Straight 08/31/2020 7: 44 AM FISCAL ASSISTANT documented as of this encounter Functional [...] OV- 08/17/2015 Future OV- no future appt AL ASSISTANT documented in this encounter Plan of Treatment Not on file documented as of this encounter Goals Goal Patient Goal Type Associated Problems Recent Progress Patient-Stated? Author Blood Pressure < 140/90 Blood Pressure 172/93(2022 8:59 AM CDT) No Zachary Moreno documented as of this encounter Visit Diagnoses Not on filedocumented in this encounter Care Teams Personal Care Aide Relationship Specialty Start Date End Date Alf Khan DO PCP - General Family Medicine 09/03/13 02/27/23 documented as of this encounter
--- OUTSIDE RECORDS SUMMARY | 2024-09-06 23:59 | XMS_ITS | Encounter Summary ---
Author Organization [facility] Address [address] [place] [address] Care Team Providers Care Upper Cutter Name Role Phone Alf Khan DO Primary Care Provider Stephan rosa Reason for Visit * Reason Onset Date Comments MEDICATION REFILL 03/10/2014 Encounter Details Date Type Department Care Team (Late st Contact Info) Description 03/10/2014 Refill [facility] - Family Medicine [address] [place] [address] Alf Khan DO MEDICATION REFILL Social History Tobacco Use Types Packs/Day Years Used Date Smoking Tobacco: Former Cigarettes 1.5 25 0 12/07/1985 - 12/07/2010 Smokeless Tobacco: Never Alcohol Use Standard Drinks/Week Comments Yes 0 (1 standard drink = 0.6 oz pur e alcohol) Sex and Gender Information Value Date Recorded Sex Assigned at Male 08/31/2020 7:44 AM DIRECTOR OF RETAIL Gender Identity Male 08/31/2020 7:44 AM DIRECTOR OF RETAIL Sexual Orientation Straight 08/31/2020 7: 44 AM DIRECTOR OF RETAIL documented as of this encounter Miscellaneous Notes [...] MA - 03/10/2014 10:53 AM CDT [place] Crockett Requested Prescriptions Pending Prescriptions [...] PM CDT Narrative Resulting Agency Comment [facility] [address] ??[facility] [phone] Alf Khan DO LAB - CHEMISTRY LIZABETH [...] PM CDT Narrative Resulting Agency Comment [facility] [address] ??[facility] [phone] Alf Khan DO LAB - CHEMISTRY LIZABETH [facility] Organization Address City/State/ZIP Co de Phone Number [facility] ACCOUNT BILL documented in this encounter Visit Diagnoses Diagnosis Hyperlipidemia Other and unspecified hyperlipidemia HTN (hypertension), benign Essential hypertension, benign documented in this encounter Care Teams Upper Cutter Relationship Specialty Start Date End Date Alf Khan DO PCP - General Family Medicine 09/03/13 02/27/23 documented as of this encounter
--- OUTSIDE RECORDS SUMMARY | 2024-09-06 23:59 | XMS_ITS | Encounter Summary ---
Author Organization [facility] Address [address] [place] [address] Care Team Providers Care Cash Applications Specialist Name Role Phone Alf Khan DO Primary Care Provider Stephan rosa Reason for Visit * Reason Onset Date Comments Nose Problem 03/26/2014 Encounter Details Date Type Department Care Team (Late st Contact Info) Description 03/26/2014 Telephone [facility] - Family Medicine [address] [place] [address] Alf Khan DO Nose Problem Social History Tobacco Use Types Packs/Day Years Used Date Smoking Tobacco: Former Cigarettes 1.5 25 0 12/07/1985 - 12/07/2010 Smokeless Tobacco: Never Alcohol Use Standard Drinks/Week Comments Yes 0 (1 standard drink = 0.6 oz pur e alcohol) Sex and Gender Information Value Date Recorded Sex Assigned at Male 08/31/2020 7:44 AM LUBE MAN Gender Identity Male 08/31/2020 7:44 AM LUBE MAN Sexual Orientation Straight 08/31/2020 7: 44 AM LUBE MAN documented as of this encounter Miscellaneous Notes [...] taste documented in this encounter Care Teams Cash Applications Specialist Relationship Specialty Start Date End Date Alf Khan DO PCP - General Family Medicine 09/03/13 02/27/23 documented as of this encounter
--- OUTSIDE RECORDS SUMMARY | 2024-09-06 23:59 | XMS_ITS | Encounter Summary ---
Author Organization [facility] Address [address] [place] [address] Care Team Providers Care Buggy Loader Name Role Phone Zaira Ramires DO Primary Care Provider Stephan rosa Reason for Visit * Reason Comments Refill Request Encounter Details Date Type Department Care Team (Late st Contact Info) Description 12/01/2016 Refill [facility] - Family Medicine [address] [place] [address] Zaira Ramires, DO Refill Request Social History Tobacco Use Types Packs/Day Years Used Date Smoking Tobacco: Former Cigarettes 1.5 25 0 12/07/1985 - 12/07/2010 Smokeless Tobacco: Never Alcohol Use Standard Drinks/Week Comments Yes 0 (1 standard drink = 0.6 oz pur e alcohol) social Sex and Gender Information Value Date Recorded Sex Assigned at Male 08/31/2020 7:44 AM SENIOR MARKET INTELLIGENCE CONSULTANT Gender Identity Male 08/31/2020 7:44 AM SENIOR MARKET INTELLIGENCE CONSULTANT Sexual Orientation Straight 08/31/2020 7: 44 AM SENIOR MARKET INTELLIGENCE CONSULTANT documented as of this encounter Functional [...] on filedocumented in this encounter Care Teams Buggy Loader Relationship Specialty Start Date End Date Zaira Ramires DO PCP - General Family Medicine 09/03/13 02/27/23 documented as of this encounter
--- OUTSIDE RECORDS SUMMARY | 2024-09-06 23:59 | XMS_ITS | Encounter Summary ---
Author Organization [facility] Address [address] [place] [address] Care Team Providers Care Wool Cleaner Name Role Phone Alf Khan DO Primary Care Provider Stephan rosa Reason for Visit * Auth/Cert - Closed Specialty Diagnoses / Procedures Referred By Jean sosa Referred To Contact Diagnoses Abdominal pain Procedures COLONOSCOPY Referral ID Status Reason Start Date Expiration Date Visits Re quested Visits Authorized [id number] Closed 1 1 Encounter Details Date Type Department Care Team (Latest Contact Info) Description 04/15/2014 7:08 AM CDT - 04/15/2014 9:43 AM CDT Hospital Encounter [facility] - [facility] [id number] [place] [address] Astrid Rios DO [address] [place] [id number] Surgery General Discharge Disposition: Home or Self Care Social History Tobacco Use Types Packs/Day Years Used Date Smoking Tobacco: Former Cigarettes 1.5 25 0 12/07/1985 - 12/07/2010 Smokeless Tobacco: Never Alcohol Use Standard Drinks/Week Comments Yes 0 (1 standard drink = 0.6 oz pur e alcohol) social Sex and Gender Information Value Date Recorded Sex Assigned at Male 08/31/2020 7:44 AM HVAC ESTIMATOR Gender Identity Male 08/31/2020 7:44 AM HVAC ESTIMATOR Sexual Orientation Straight 08/31/2020 7: 44 AM HVAC ESTIMATOR documented as of this encounter Last Filed [...] Case Report Surgical Pathology Report ? Case: [id number] ? Authorizing Provider: ??Astrid Rios DO ?Collected: [...] labeled A1. DYT/na 04/16/2014 3:43 PM CDT [facility] Microscopic Description Section labeled, sigmoid colon polyp, show fragments of colonic mucosa displaying characteristics of ??tubular adenoma. No invasive malignancy is seen. JW/inna 04/16/2014 3:43 PM CDT [facility] Pathology/Cytolo gy POLYP OF SIGMOID COLON / Unknown 04/15/2014 8:49 AM CDT 04/15/2014 9:16 AM CDT Comment:799.9 Astrid Rios DO LAB - PATHOLOGY/CYTO LOGY ORDERABLES [facility] [address] [place] [address] * ENDOSCOPY, COLON, SCREENING (04/15/2014 8:24 AM [...] Procedure Code(s): ? --- Professional --- ? 84216, Colonoscopy, flexible, proximal to splenic flexure; with removal ? of tumor(s), polyp(s), or other lesion(s) by snare technique ? --- Technical --- ? 25356, Colonoscopy, flexible, proximal to splenic flexure; with [...] (without mention of hemorrhage) CPT copyright 2013 [employer]. All rights reserved. The codes documented in this report are preliminary and upon auditing coder review may be revised to meet current compliance requirements. ___ Astrid Rios DO 04/15/2014 8:51 AM This report has been signed electronically. Number of Addenda: 0 Note Initiated On: 04/15/2014 8:24 AM [facility] 04/15/2014 8:24 AM CDT Astrid Rios [place] [address] documented in this encounter Visit Diagnoses Not [...] RN) documented in this encounter Care Teams Wool Cleaner Relationship Specialty Start Date End Date Alf Khan DO PCP - General Family Medicine 09/03/13 02/27/23 documented as of this encounter
--- OUTSIDE RECORDS SUMMARY | 2024-09-06 23:59 | XMS_ITS | Encounter Summary ---
Author Organization [facility] Address [address] [place] [address] Care Team Providers Care Roof Service Technician Name Role Phone Unavailable Primary Care Provider Unavailabl e Reason for Visit * Reason Onset Date Comments MEDICATION REFILL 08/07/2011 Encounter Details Date Type Department Care Team (Late st Contact Info) Description 08/07/2011 Refill [facility] - Family Medicine [address] [place] [address] Jose Rust DO [address] [place] [address] MEDICATION REFILL Social History Tobacco Use Types Packs/Day Years Used Date Smoking Tobacco: Former Cigarettes Q uit: 12/07/2010 Smokeless Tobacco: Never Alcohol Use Standard Drinks/Week Comments Not Asked 0 (1 standard drink = 0.6 oz pur e alcohol) Sex and Gender Information Value Date Recorded Sex Assigned at Male 08/31/2020 7:44 AM ROOFING 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 Gender Identity Male 08/31/2020 7:44 AM ROOFING 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 Sexual Orientation Straight 08/31/2020 7: 44 AM ROOFING 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 documented as of this encounter Miscellaneous Notes * Telephone Encounter - Perla Martinez - 08/07/2011 5:05 PM CST Rx approved and sent to pharmacy ING 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 * Telephone Encounter - Quynh Mart - 08/07/2011 3:06 PM CST [place] Cro[place] Allergies Allergen Reactions ??? Perry Inhibitors Cough Requested Prescriptions Pending Prescriptions Disp Refills ??? omeprazole (PRILOSEC) 20 MG capsule 30 Cap Sig: Take 1 Cap by mouth once daily. Last Refill: 07/02/11 Last Office Visit: 05/23/11 ING 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 documented in this encounter Plan of Treatment Not on file documented as of this encounter Visit Diagnoses Diagnosis GERD (gastroesophageal reflux disease)- Primary Esophageal reflux documented in this encounter
--- OUTSIDE RECORDS SUMMARY | 2024-09-07 | XMS_ITS | Encounter Summary ---
Author Organization [facility] Address [address] [place] [address] Care Team Providers Care Digital Print Operator Name Role Phone Alf KhanRamses SMITH Primary Care Provider [phone] Reason for Visit * Reason Comments Head Injury Encounter Details Date Type Department Care Team (Late st Contact Info) Description 07/11/2021 5:23 PM LEADERSHIP COACH - 07/11/2021 8:27 PM LEADERSHIP COACH Emergency [facility] Emergency Department [address] [place] [address] Malick Shukla MD [address] [place] [address] Head injury, initial encounter (Primary Dx); Closed [...] on file Legal Sex Male 10:34 AM LEADERSHIP COACH Gender Identity Not on file Sexual Orientation Not on file documented as of this encounter Last Filed Vital Signs Vital Sign Reading Time Taken Comments Blood Pressure 165/82 07/11/2021 5:02 PM LEADERSHIP COACH Pulse 85 07/11/2021 5:02 PM LEADERSHIP COACH Temperature 36.4 ??C (97.6 ??F) 07/11/2021 5:02 PM CS T Respiratory Rate 18 07/11/2021 5:02 PM LEADERSHIP COACH Oxygen Saturation 95% 07/11/2021 5:02 PM LEADERSHIP COACH Inhaled Oxygen Concentration - - Weight 117 kg (258 lb) 07/11/2021 5:02 PM LEADERSHIP COACH Height 180.3 cm (5' 11 ) 07/11/2021 5:02 PM LEADERSHIP COACH Body Mass Index 35.98 07/11/2021 5:02 PM LEADERSHIP COACH documented in this encounter Discharge Diagnoses Diagnosis [...] Care Everywhere. * Laceration, Scalp: Sutures or Clune ([place]) documented in this encounter Ordered Prescriptions Prescription [...] ear normal. Nose: Nose normal. Mouth/Throat: Lips: [place]. Mouth: Mucous membranes are moist. Eyes: General: [...] and Memory: Cognition normal. Judgment: Judgment normal. [facility] ED Course as of 07/13/21 1124 Time: [...] Malick Shukla MD at 07/14/2021 6:09 AM LEADERSHIP COACH ERSHIP COACH ERSHIP COACH * Maryann Watts RN - 07/11/2021 4:58 PM CST Patient arrives for evaluation of a head injury that happened at 1030 this morning. Patient states he was hit on the head by a piece of equipment at work. No LOC. Small laceration to the top of head.Patient states he's having head and neck pain. No nausea or vomiting. ERSHIP COACH documented in this encounter Miscellaneous Notes * ED Procedure Note - Madeline Schwarz MD - 07/11/2021 7:54 PM CSTAssociated Order(s): Laceration Repair Procedure Laceration Repair Date/Time: 07/11/2021 7:55 PM Performed by: Madeline Schwarz MD Authorized by: Malick Shukla MD RN Notified of Procedure: yes Informed consent: Risks, benefits, alternatives discussed and patient/footwear sales representative/guardian agrees and accepts Patient's stated name/ matches [...] bodies Irrigation solution: Sterile saline Repair method: Clune Dressing: Antibiotic ointment and non-adherent dressing Patient tolerance of procedure: Tolerated well, no immediate complications Follow up with PCP in 10 days for staple removal - keep site clean Madeline Schwarz MD Resident 07/11/211999 Cosigned by Malick Shukla MD at 07/14/2021 6:09 AM LEADERSHIP COACH ERSHIP COACH ERSHIP COACH documented in this encounter Plan of Treatment Not on file documented as of this encounter Procedures Procedure Name Priority Date/Time Associated Diagnosis Comments ED LACERATION REPAIR Routine 07/11/2021 7:[address] CERVICAL SPINE WO CONTRAST ED 07/11/2021 6:[address] HEAD WO CONTRAST ED 07/11/2021 6 :37 PM LEADERSHIP COACH documented in this encounter Results * Laceration Repair (07/11/2021 7:55 PM LEADERSHIP COACH) Narrative Malick Shukla MD - 07/11/2021 7:55 PM LEADERSHIP COACH Madeline Schwarz MD ? 07/11/2021 ??8:00 PM Laceration Repair Date/Time: 07/11/2021 7:55 PM Performed by: Madeline Schwarz MD Authorized by: Malick Shukla MD RN Notified of Procedure: yes ?? Informed consent: ??Risks, benefits, alternatives discussed and patient/footwear sales representative/guardian agrees and accepts Patient's stated name/ matches [...] Cervical Spine WO Contrast (07/11/2021 6:37 PM LEADERSHIP COACH) Anatomical Region Laterality Modality Spine N/A Computed Tomogra phy 07/11/2021 6:59 PM LEADERSHIP COACH Narrative 07/11/2021 7:08 PM LEADERSHIP COACH EXAM DESCRIPTION: ?? CT CERVICAL SPINE WO [...] PM T: ??07/11/2021 7:08 PM Report ID: [id number] Reading Location: ??[id number] Procedure Note Luis Yao MD - 07/11/2021 [...] Luis Yao M.D. AT: AT Report ID: [id number] Reading Location: [id number] Alexa Cline WOODWORKING BENCH CARPENTER IMG CT PROCEDURES Final Res ult * CT Head WO Contrast (07/11/2021 6:37 PM LEADERSHIP COACH) Anatomical Region Laterality Modality Head and Neck N/A Computed Tomogra phy 07/11/2021 6:51 PM LEADERSHIP COACH Narrative 07/11/2021 6:59 PM LEADERSHIP COACH EXAM DESCRIPTION: ?? CT HEAD WO CONTRAST [...] PM T: ??07/11/2021 6:59 PM Report ID: [id number] Reading Location: ??[id number] Procedure Note Luis Yao MD - 07/11/2021 [...] Luis Yao M.D. AT: AT Report ID: [id number] Reading Location: [id number] Alexa Cline NP IMG CT PROCEDURES Final [...] For 1 dose Given 07/11/2021 7:01 PM LEADERSHIP COACH 650 mg bacitracin 500 unit/gram ointment packet 1 application 1 application (deactivated), topical, Once, On Sat07/11/21 at 1853, For 1 dose, Apply to affected area: wound Given 07/11/2021 7:02 PM LEADERSHIP COACH 1 application (deactivated) cyclobenzaprine (FLEXERIL) tablet 10 mg 10 mg, oral, Once, On Sat07/11/21 at 1854, For 1 dose Given 07/11/2021 7:01 PM LEADERSHIP COACH 10 mg lidocaine-EPINEPHrine (XYLOCAINE with EPI) 1 %-1:100,000 injection 10 mL 10 mL, infiltration, Once, On Sat07/11/21 at 1853, For 1 dose, Indications: Administration of Local AnesthesiaIndications:Ad ministration of Local Anesthesia Given by Other 07/11/2021 7:51 PM LEADERSHIP COACH 10 mL lsfkvtqet-kmtopnoyr-pezl acaine (LET) gel 3 mL 3 mL, topical, Once, On Sat07/11/21 at 1853, For 1 dose Given 07/11/2021 7:01 PM LEADERSHIP COACH 3 mL documented in this encounter Discontinued [...] Recently Administered Medications Times are shown in LEADERSHIP COACH. Scheduled Medication Order 07/09/2021 07/10/2021 07/11/2021 acetaminophen [...] - Comment: administered per ERP during procedure) qmlunsosw-jxopbqtlk-uffuzoftmd (LET) gel 3 mL (COMPLETED) 3 mL, topical, Once, On Sat07/11/21 at 1853, For 1 dose 1900 (Given - Provid er: Sofi Wood, MARIANA) documented in this encounter Care Teams Digital Print Operator Relationship Specialty Start Date End Date Alf Khan DO [address] [place] [address] PCP - General 07/11/21 documented as of this encounter
--- OUTSIDE RECORDS SUMMARY | 2024-09-07 | XMS_ITS | Encounter Summary ---
Author Organization [facility] Address [address] [place] [address] Care Team Providers Care Customer Sales Service Manager Name Role Phone Unavailable Primary Care Provider Unavailabl e Reason for Visit * Reason Onset Date Comments Medication Problem 12/22/2010 Encounter Details Date Type Department Care Team (Late st Contact Info) Description 12/22/2010 Telephone [facility] - Family Medicine [address] [place] [address] Liv Gaines MD Medication Problem Social History Tobacco Use Types Packs/Day Years Used Date Smoking Tobacco: Every Day Alcohol Use Standard Drinks/Week Comments Not Asked 0 (1 standard drink = 0.6 oz pur e alcohol) Sex and Gender Information Value Date Recorded Sex Assigned at Male 08/31/2020 7:44 AM SUPERINTENDENT STEVEDORING Gender Identity Male 08/31/2020 7:44 AM SUPERINTENDENT STEVEDORING Sexual Orientation Straight 08/31/2020 7: 44 AM SUPERINTENDENT STEVEDORING documented as of this encounter Miscellaneous Notes [...]
--- OUTSIDE RECORDS SUMMARY | 2024-09-07 | XMS_ITS | Encounter Summary ---
Author Organization [facility] Address [address] [place] [address] Care Team Providers Care Javascript Application Developer Name Role Phone Unavailable Primary Care Provider Unavailabl e Reason for Visit * Reason Onset Date Comments Results 05/02/2010 Encounter Details Date Type Department Care Team (Late st Contact Info) Description 05/02/2010 Telephone [facility] - Family Medicine [address] [place] [address] Jose Rust DO [address] [place], [place] [id number] Results Social History Tobacco Use Types Packs/Day Years Used Date Smoking Tobacco: Every Day Alcohol Use Standard Drinks/Week Comments Not Asked 0 (1 standard drink = 0.6 oz pur e alcohol) Sex and Gender Information Value Date Recorded Sex Assigned at Male 08/31/2020 7:44 AM TAG PRESS OPERATOR Gender Identity Male 08/31/2020 7:44 AM TAG PRESS OPERATOR Sexual Orientation Straight 08/31/2020 7: 44 AM TAG PRESS OPERATOR documented as of this encounter Miscellaneous Notes * Telephone Encounter - Maddy Feliciano MA - 05/04/2010 8:27 AM CDT Pt's aware. She will have pt call office to make appt. * Telephone Encounter - Anyg Segovia MA - 05/03/2010 6:12 PM CDT [...]
--- OUTSIDE RECORDS SUMMARY | 2024-09-07 | XMS_ITS | Encounter Summary ---
Author Organization [facility] Address [address] [place] [address] Care Team Providers Care Warehouse Pricing And Inventory Clerk Name Role Phone Unavailable Primary Care Provider Trang e Encounter Details Date Type Department Care Team (Latest Contact Info) Description 04/05/2009 4:54 PM CDT - 04/05/2009 11:59 PM CDT Hospital Encounter [facility] Imaging Services - MRI [address] [place] [address] Discharge Disposition: Home or Self Care Social History Tobacco Use Types Packs/Day Years Used Date Smoking Tobacco: Every Day Alcohol Use Standard Drinks/Week Comments Not Asked 0 (1 standard drink = 0.6 oz pur e alcohol) Sex and Gender Information Value Date Recorded Sex Assigned at Male 08/31/2020 7:44 AM BALE BREAKER OPERATOR Gender Identity Male 08/31/2020 7:44 AM BALE BREAKER OPERATOR Sexual Orientation Straight 08/31/2020 7: 44 AM BALE BREAKER OPERATOR documented as of this encounter Medications at [...]
--- OUTSIDE RECORDS SUMMARY | 2024-09-07 | XMS_ITS | Encounter Summary ---
Author Organization [facility] Address [address] [place] [address] Care Team Providers Care Clinical Appeals Reviewer Name Role Phone Unavailable Primary Care Provider [...] Description 05/09/2011 2:30 PM CDT Office Visit [facility] - Family Medicine [address] [place] [address] Jose Rust DO [address] [place] [address] HTN (hypertension), benign (Primary Dx); Hyperlipidemia; GERD [...] Sex Assigned at Male 08/31/2020 7:44 AM ELECTRIC INSTALLER Gender Identity Male 08/31/2020 7:44 AM ELECTRIC INSTALLER Sexual Orientation Straight 08/31/2020 7: 44 AM ELECTRIC INSTALLER documented as of this encounter Last Filed [...] 2:39 PM CDT Office Visit, Established Patient, [address] HISTORY: (4+ elements or 3+ chronic) CC [...] fluticasone propionate (FLONASE) 50 MCG/ACT nasal spray [place] 2 Sprays into each nostril daily.1 g [...] ASSESSMENT: 1. HTN (hypertension), benign EKG 12-LEAD, NC ELECTROCARDIOGRAM, COMPLETE, COMPREHENSIVE METABOLIC PANEL, TSH, URINALYSIS [...] OF CARE (AMB) ??? EKG 12-LEAD ??? NC ELECTROCARDIOGRAM, COMPLETE ??? doxazosin (CARDURA) 2 MG [...] YELLOW [facility] Appearance CLEAR CLEAR [facility] Specific [place] UA 1.028 1.001 - 1.035 [facility] pH UA 6.0 5.0 - 8.0 [facility] Glucose UA NEGATIVE NEGATIVE [facility] Bilirubin UA NEGATIVE NEGATIVE [facility] Ketone UA NEGATIVE NEGATIVE [facility] Blood UA NEGATIVE NEGATIVE [facility] Protein UA NEGATIVE NEGATIVE [facility] Nitrite UA NEGATIVE NEGATIVE [facility] Leukocyte UA NEGATIVE NEGATIVE [facility] Comment: Test Performed at: [facility] [address] [place], [place] ??[address] BISI SCHWARZ DO,MPH URINE SPECIMEN OBTAINED BY CLEAN CATCH PROCEDURE / Unknown 05/09/2011 2:50 PM CDT 05/10/2011 5:23 AM CDT Jose Rust DO LAB - URINALYSIS ORD ERABLES Performing Organization Address [facility] de Phone Number [address] [address] * VITAMIN D 25-HYDROXY (05/09/2011 2:50 PM [...] levels are >/=30 ng/mL. Test Performed at: [facility] [address] ??[phone] VALDEMAR RINALDI MD ?? BLOOD SPECIMEN / Unknown 05/09/2011 2:50 PM CDT 05/10/2011 5:23 AM CDT Jose Rust DO LAB - CHEMISTRY ORDE INEZ Performing Organization Address [facility] de Phone Number [address] [address] * (ABNORMAL) PSA FREE + TOTAL PANEL [...] 30 ?93 ? 9 ? (3)Judd.:MADIHA 277: 5824-6476 (1996) ? (4)Catalona et al.:MADIHA 279: 9008-4608 (1997) (x)These estimates vary with age, ethnicity, [...] or absence of disease. Test Performed at: [facility] ??[phone] BISI SCHWARZ DO,MPH BLOOD SPECIMEN / Unknown 05/09/2011 2:50 PM CDT 05/10/2011 5:23 AM CDT Jose uRst DO LAB - CHEMISTRY LIZABETH WILEY Performing Organization Address [facility] de Phone Number [facility] [id number] [place] [address] * TSH (05/09/2011 2:50 PM CDT) TSH 2.67 0.40 - 4.50 mIU/L [facility] Comment: Test Performed at: [facility] [address] ??[phone] BISI SCHWARZ DO,MPH BLOOD SPECIMEN / Unknown 05/09/2011 2:50 PM CDT 05/10/2011 5:23 AM CDT Jose Rust DO LAB - CHEMISTRY LIZABETH [employer] Design[employer]ON Performing Organization Address [facility] de Phone Number [address] [address] * (ABNORMAL) LIPID PROFILE W TCHOL/HDL (PO REF LAB) (05/09/2011 2:50 PM CDT) Cholesterol 203(H) 125 - 200 mg/dL [facility] Comment: Test Performed at: [facility] [address] [place] [address] ??[phone] BISI SCHWARZ DO,MPH HDL Cholesterol 39(L) > [...] Rust DO LAB - CHEMISTRY LIZABETH WILEY [facility] Organization Address City/State/ZIP Co de Phone Number [facility] [address] [place] [address] * CBC W AUTO DIFFERENTIAL (05/09/2011 2:50 [...] 0.6 % [facility] Comment: Test Performed at: [facility] [address] [place], [place] ??[address] BISI SCHWARZ DO,MPH BLOOD SPECIMEN / Unknown 05/09/2011 2:50 PM CDT 05/10/2011 5:23 AM CDT Jose Rust DO LAB - HEMATOLOGY ORD ERABLES Performing Organization Address [facility] Co de Phone Number [facility] [address] [place] [address] * (ABNORMAL) COMPREHENSIVE METABOLIC PANEL (05/09/2011 2:50 [...] 60 U/L [facility] Comment: Test Performed at: [facility] ??[address] BISI SCHWARZ DO,MPH BLOOD SPECIMEN / Unknown 05/09/2011 2:50 PM CDT 05/10/2011 5:23 AM CDT Jose Rust DO LAB - CHEMISTRY ORDE RABRAMON Performing Organization Address [facility] Co de Phone Number [facility] [address] [place] [address] * EKG 12-LEAD (05/09/2011 2:35 PM CDT) Jose Rust DO ECG ORDERABLES [facility] RESULT SCAN documented in this encounter Visit Diagnoses Diagnosis HTN (hypertension), benign- Primary Essential hypertension, benign Hyperlipidemia Other and unspecified hyperlipidemia GERD (gastroesophageal reflux disease) Esophageal reflux Low back pain Lumbago Screening for unspecified condition documented in this encounter
--- OUTSIDE RECORDS SUMMARY | 2024-09-07 | XMS_ITS | Encounter Summary ---
Author Organization [facility] Address [address] [place] [address] Care Team Providers Care Kennel Manager Dog Track Name Role Phone Unavailable Primary Care Provider Unavailabl e Reason for Visit * Reason Comments Cough Encounter Details Date Type Department Care Team (Late st Contact Info) Description 12/22/2010 9:45 AM CDT Office Visit [facility] - Family Medicine [address] [place] [address] Liv Gaines MD Bronchitis (Primary Dx); HTN (hypertension), benign; Otitis media; Tobacco abuse; HYPERTRIGLYCERIDEMIA; Abnormal blood chemistry Social History Tobacco Use Types Packs/Day Years Used Date Smoking Tobacco: Every Day Alcohol Use Standard Drinks/Week Comments Not Asked 0 (1 standard drink = 0.6 oz pur e alcohol) Sex and Gender Information Value Date Recorded Sex Assigned at Male 08/31/2020 7:44 AM BACK TENDER PAPER MACHINE Gender Identity Male 08/31/2020 7:44 AM BACK TENDER PAPER MACHINE Sexual Orientation Straight 08/31/2020 7: 44 AM BACK TENDER PAPER MACHINE documented as of this encounter Last Filed [...]
--- OUTSIDE RECORDS SUMMARY | 2024-09-07 | XMS_ITS | Encounter Summary ---
Author Organization [facility] Address [address] [place] [address] Care Team Providers Care Irrigator Gravity Flow Name Role Phone Unavailable Primary Care Provider Unavailabl e Reason for Visit * Reason Onset Date Comments Medication Request 09/30/2009 Encounter Details Date Type Department Care Team (Late st Contact Info) Description 09/30/2009 Telephone [facility] - Family Medicine [address] [place] [id number] Jose Rust DO [address] [place] [address] Medication Request Social History Tobacco Use Types Packs/Day Years Used Date Smoking Tobacco: Every Day Alcohol Use Standard Drinks/Week Comments Not Asked 0 (1 standard drink = 0.6 oz pur e alcohol) Sex and Gender Information Value Date Recorded Sex Assigned at Male 08/31/2020 7:44 AM BANQUET COOK Gender Identity Male 08/31/2020 7:44 AM BANQUET COOK Sexual Orientation Straight 08/31/2020 7: 44 AM BANQUET COOK documented as of this encounter Miscellaneous Notes * Telephone Encounter - Marcela Soria - 09/30/2009 1:57 PM CST Called pt back and advised of dr response re the cough. UET COOK * Telephone Encounter - Perla Martinez - 09/30/2009 1:54 PM CST The persistent cough could be from the lisinopril, sometimes it is a side effect. Try the new Rx and see if the cough resolves. UET COOK * Telephone Encounter - Marcela Soria - 09/30/2009 1:43 PM CST Called pt back re his blood pressure medicine. Wanted to know if you are going to prescribe something for the non productive cough? UET COOK * Telephone Encounter - Jose Rust DO - 09/30/2009 1:39 PM CST D/C the lisinopril. Start new Rx for b/p and see in 3 mo's. Call sooner with problems. UET COOK * Telephone Encounter - Bernadine Smith - 09/30/2009 9:40 AM CST Pt states that he wants you to change his current blood pressure medication lisinopril/hctz 20/12.5mg tab to something different because his bowel movements are uncontrollable with the water pill added Pt also states that he has had a bad cough for about a week non prod. UET COOK documented in this encounter Plan of Treatment Not on file documented as of this encounter Visit Diagnoses Not on filedocumented in this encounter
--- OUTSIDE RECORDS SUMMARY | 2024-09-07 | XMS_ITS | Encounter Summary ---
Author Organization [facility] Address [address] [facility] [place] [place] [address] Care Team Providers Care Boilermaker Loftsman Name Role Phone Unavailable Primary Care Provider [...] Description 03/28/2010 3:30 PM CDT Office Visit [facility] Medical [facility] - Family Medicine [address] [place] [address] Jose Rust DO [address] [place] [address] Chest Pain (Primary Dx); HTN (Hypertension), Benign; HYPERLIPIDEMIA; Back Pain; Neck Pain; Screening for Unspecified Condition; Elevated WBC Count Social History Tobacco Use Types Packs/Day Years Used Date Smoking Tobacco: Every Day Alcohol Use Standard Drinks/Week Comments Not Asked 0 (1 standard drink = 0.6 oz pur e alcohol) Sex and Gender Information Value Date Recorded Sex Assigned at Male 08/31/2020 7:44 AM CARBIDE DIE MAKER Gender Identity Male 08/31/2020 7:44 AM CARBIDE DIE MAKER Sexual Orientation Straight 08/31/2020 7: 44 AM CARBIDE DIE MAKER documented as of this encounter [...] - 03/29/2010 11:17 AM CDT SCHEDULED AT [facility] 04/06/2010 @10:30 AM FOR STRESS ECHO CARDIOGRAM. [facility] AUTH#[id number] PER [place]. NOTIFIED PT DUE TO INS CANCELLED NUCLEAR STRESS TEST AND RESCHEDULED FOR STRESS ECHO. * Petros Beltran - 03/29/2010 10:11 AM CDT Scheduled pt @ [facility] for nuclear strees test at 8:30 on [...] TIBC PANEL (03/31/2010 7:00 AM CDT) Pathologist [facility] Iron 122 45 - 170 mcg/dL [facility] TIBC 354 250 - 425 mcg/dL [facility] % Saturation 34 20 - 50 % (calc) [facility] Comment: Test Performed at: [facility] [address] [place] ??[address] BISI SCHWARZ DO,MPH 03/29/2010 5:4 6 AM CDT Jose Rust DO LAB - CHEMISTRY LIZABETH WILEY [facility] [address] [place] [address] * HEPATITIS SCREEN ACUTE W/REFLX HBSAG (POREF (03/31/2010 7:00 AM CDT) [facility] Hepatitis A Virus Antibody IgM NON-REACT QUINN NON - REACTIVE [facility] Comment: Test Performed at: [facility] [address] [place] ??[address] BISI SCHWARZ DO,MPH Hepatitis B Virus Surface Antigen NON-REACT QUINN NON - REACTIVE [facility] Hepatitis B Core Virus Antibody IgM NON-REACT QUINN NON - REACTIVE [facility] Hepatitis C Antibody NON-REACT QUINN NON - REACTIVE [facility] Signal to Cut-Off 0.07 <1.00 [facility] 03/29/2010 5:4 6 AM CDT Jose Rust DO LAB - CHEMISTRY ORDE INEZ Performing Organization Address [facility] de Phone Number [facility] [address] [place] [address] * (ABNORMAL) LIPID PROFILE (03/31/2010 7:00 AM CDT) Cholesterol 246(H) 125 - 200 mg/dL [facility] Comment: Test Performed at: [facility] [address] [place] [address] ??[phone] BISI SCHWARZ DO,MPH HDL Cholesterol 41 > OR = 40 mg/dL [facility] Triglycerides 347(H) <150 mg/dL [facility] BLOOD SPECIMEN / Unknown 03/29/2010 5:46 AM CDT Jose Rust DO LAB - CHEMISTRY ORDEcho WILEY Performing Organization Address [facility] de Phone Number [facility] [address] [place] [address] * (ABNORMAL) COMPREHENSIVE METABOLIC PANEL (03/31/2010 7:00 [...] 60 U/L [facility] Comment: Test Performed at: [facility] [address] [place] ??[address] BISI SCHWARZ DO,MPH BLOOD SPECIMEN / Unknown 03/29/2010 5:46 AM CDT Jose Rust DO LAB - CHEMISTRY LIZABETH WILEY Performing Organization Address [facility] [address] [facility] de Phone Number [facility] [address] [place] [address] * TSH (03/29/2010 7:00 AM CDT) Pathologist [facility] TSH 1.93 0.40 - 4.50 mIU/L [facility] Comment: Test Performed at: [facility] [address] [place] [address] ??[phone] BISI SCHWARZ DO,MPH BLOOD SPECIMEN / Unknown 03/29/2010 5:46 AM CDT Jose Rust DO LAB - CHEMISTRY LIZABETH WILEY Performing Organization Address [facility] [place] [address] * (ABNORMAL) CBC W AUTO DIFFERENTIAL (03/29/2010 7:00 AM CDT) Pathologist [facility] White Blood Cell Count 11.8(H) 3.8 - [...] 0.2 % [facility] Comment: Test Performed at: [facility] [address] [place] ??[address] BISI SCHWARZ DO,MPH BLOOD SPECIMEN / Unknown 03/29/2010 5:46 AM CDT Jose Rust DO LAB - HEMATOLOGY ORD ERABLES [facility] [address] [place] [address] * URINALYSIS DIPSTICK AUTO (03/29/2010 7:00 AM CDT) Comments [facility] Comment: The preferred specimen for urinalysis is urine preserved using a [employer] Urine Preservative Tube (yellow top, blue band) that may be obtained from your [employer] supplier. Color UA TNP [facility] Comment: TEST(S) [...] INCORRECT, PLEASE CONTACT CLIENT SERVICES. PHONE NUMBER: [phone] Test Performed at: [facility] [address] [place] [address] ??[phone] BISI SCHWARZ DO,MPH URINE SPECIMEN OBTAINED BY CLEAN CATCH PROCEDURE / Unknown 03/29/2010 5:46 AM CDT Jose Rust DO LAB - URINALYSIS ORD ERABLES [facility] [address] [place] [address] * EKG 12-LEAD (03/28/2010) Jose Rust DO ECG ORDERABLES Performing Organization Address [facility] [address] [facility]/ZIP Co de Phone Number [facility] RESULT SCAN documented in this encounter Visit Diagnoses Diagnosis Chest pain- Primary Chest pain, unspecified HTN (hypertension), benign Essential hypertension, benign Hyperlipidemia Other and unspecified hyperlipidemia Back pain Backache, unspecified Neck pain Cervicalgia Screening for unspecified condition Elevated WBC count Leukocytosis, unspecified documented in this encounter
--- OUTSIDE RECORDS SUMMARY | 2024-09-07 | XMS_ITS | Encounter Summary ---
Author Organization [facility] Address [address] [place] [address] Care Team Providers Care Venereal Disease Control Head Name Role Phone Unavailable Primary Care Provider Unavailabl e Reason for Visit * Reason Comments Shoulder Pain Pain Arm Encounter Details Date Type Department Care Team (Late st Contact Info) Description 04/01/2009 11:30 AM CDT Office Visit [facility] - Family Medicine [address] [facility] [address] [place] [address] Jammie Mata DO [address] [place] [address] Radicular Pain in Left Arm (Primary Dx) Social History Tobacco Use Types Packs/Day Years Used Date Smoking Tobacco: Every Day Alcohol Use Standard Drinks/Week Comments Not Asked 0 (1 standard drink = 0.6 oz pur e alcohol) Sex and Gender Information Value Date Recorded Sex Assigned at Male 08/31/2020 7:44 AM BORING MILL SET UP OPERATOR Gender Identity Male 08/31/2020 7:44 AM BORING MILL SET UP OPERATOR Sexual Orientation Straight 08/31/2020 7: 44 AM BORING MILL SET UP OPERATOR documented as of this encounter Last [...]
--- OUTSIDE RECORDS SUMMARY | 2024-09-07 | XMS_ITS | Encounter Summary ---
Author Organization [facility] Address [address] [place] [address] Care Team Providers Care Conservation Of Resources Commissioner Name Role Phone Unavailable Primary Care Provider Trang e Encounter Details Date Type Department Care Team (Late st Contact Info) Description 05/09/2011 Orders Only [facility] - Family Medicine [address] [place] [address] Jose Rust DO [address] [place] [address] Social History Tobacco Use Types Packs/Day Years Used Date Smoking Tobacco: Former Cigarettes Q uit: 12/07/2010 Smokeless Tobacco: Never Alcohol Use Standard Drinks/Week Comments Not Asked 0 (1 standard drink = 0.6 oz pur e alcohol) Sex and Gender Information Value Date Recorded Sex Assigned at Male 08/31/2020 7:44 AM SUPPORT SERVICES COORDINATOR Gender Identity Male 08/31/2020 7:44 AM SUPPORT SERVICES COORDINATOR Sexual Orientation Straight 08/31/2020 7: 44 AM SUPPORT SERVICES COORDINATOR documented as of this encounter Plan of [...] ID ACUTE HEP PANEL [facility] Test Code 79422 [facility] Client Contact ALIYAH VIDAL See Note [facility] Comment: The laboratory testing on this patient was verbally requested or confirmed by the ordering physician or his or her authorized office machines sales representative after contact with an employee of [email or web address]. Federal regulations require that we maintain on file written authorization for all laboratory testing. ??Accordingly we are asking that the ordering physician or his or her authorized office machines sales representative sign a copy of this report and promptly return it to the client operations manager. Signature: Fax number: [phone] Test Performed at: [facility] [address] [place], [place] ??[address] BISI SCHWARZ DO,MPH 05/09/2011 2:50 PM CDT 05/10/2011 5:23 AM CDT Jose Rust DO LAB - CHEMISTRY LIZABETH WILEY Performing Organization Address [facility] de Phone Number [facility] [address] [place] [address] * HEPATITIS SCREEN ACUTE W/REFLX HBSAG (POREF (05/09/2011 2:50 PM CDT) Hepatitis A Virus Antibody IgM NON-REACTI VE NON-REACT QUINN [facility] Comment: Test Performed at: [facility] [address] [place], [place] ??[address] BISI SCHWARZ DO,MPH Hepatitis B Virus Surface Antigen NON-REACTI VE NON-REACT QUINN [facility] Hepatitis B Core Virus Antibody IgM NON-REACTI VE NON-REACT QUINN [facility] Hepatitis C Antibody NON-REACTI VE NON-REACT QUINN [facility] Signal to Cut-Off 0.12 <1.00 [facility] 05/09/2011 2:50 PM CDT 05/10/2011 5:23 AM CDT Jose Rust DO LAB - CHEMISTRY LIZABETH CAROLERAMON Performing Organization Address [facility] de Phone Number [facility] [address] [place] [address] documented in this encounter Visit Diagnoses Not on filedocumented in this encounter
--- OUTSIDE RECORDS SUMMARY | 2024-09-07 | XMS_ITS | Encounter Summary ---
Author Organization [facility] Address [address] [place] [address] Care Team Providers Care Store Leader Name Role Phone Unavailable Primary Care Provider Trang e Encounter Details Date Type Department Care Team (Latest Contact Info) Description 12/22/2010 10:27 AM CDT - 12/22/2010 11:59 PM CDT Hospital Encounter [facility] [address] [place] [address] Liv Gaines MD Radiology Diagnostic Discharge Disposition: Home or Self Care Social History Tobacco Use Types Packs/Day Years Used Date Smoking Tobacco: Every Day Alcohol Use Standard Drinks/Week Comments Not Asked 0 (1 standard drink = 0.6 oz pur e alcohol) Sex and Gender Information Value Date Recorded Sex Assigned at Male 08/31/2020 7:44 AM CINDER BLOCK MASON Gender Identity Male 08/31/2020 7:44 AM CINDER BLOCK MASON Sexual Orientation Straight 08/31/2020 7: 44 AM CINDER BLOCK MASON documented as of this encounter Medications at [...] propionate (FLONASE) 50 MCG/ACT nasal sprayIndications:Bronc hitis [place] 2 Sprays into each nostril daily. 1 [...]
--- OUTSIDE RECORDS SUMMARY | 2024-09-07 | XMS_ITS | Encounter Summary ---
Author Organization [facility] Health Address [address] [place] [address] Care Team Providers Care Manager Client Service Name Role Phone Unavailable Primary Care Provider Unavailabl e Reason for Visit * Reason Onset Date Comments Encounter Opened In Error 01/19/2022 Encounter Details Date Type Department Care Team (Late st Contact Info) Description 10/03/2007 12:10 PM MANAGER TECHNICAL Office Visit [address] [address] Jose Rust, [address] [place] [address] ERRONEOUS ENCOUNTER--DISREGARD (Primary Dx) Social History Tobacco Use Types Packs/Day Years Used Date Smoking Tobacco: Never Assessed PHQ-2 Answer Date Recorded PHQ2 TOTAL SCORE 0 01/18/2022 Sex and Gender Information Value Date Recorded Sex Assigned at Male 08/31/2020 7:44 AM MANAGER TECHNICAL Gender Identity Male 08/31/2020 7:44 AM MANAGER TECHNICAL Sexual Orientation Straight 08/31/2020 7: 44 AM MANAGER TECHNICAL COVID-19 Exposure Response Date Recorded In the last month, have you been in contact with someone who was confirmed or suspected to have Coronavirus / COVID-19? No / Unsure 07/13/2021 9:06 AM MANAGER TECHNICAL documented as of this encounter Progress Notes [...]
--- OUTSIDE RECORDS SUMMARY | 2024-09-07 | XMS_ITS | Encounter Summary ---
Author Organization [facility] Address [address] [place] [address] Care Team Providers Care Military Pay Technician Name Role Phone Unavailable Primary Care Provider Trang e Encounter Details Date Type Department Care Team (Latest Contact Info) Description 03/31/2009 8:56 AM CDT - 03/31/2009 11:59 PM CDT Hospital Encounter [facility] Imaging Services - Radiology [address] [place] [address] Discharge Disposition: Home or Self Care Social History Tobacco Use Types Packs/Day Years Used Date Smoking Tobacco: Every Day Alcohol Use Standard Drinks/Week Comments Not Asked 0 (1 standard drink = 0.6 oz pur e alcohol) Sex and Gender Information Value Date Recorded Sex Assigned at Male 08/31/2020 7:44 AM MACHINING DEPARTMENT SUPERVISOR Gender Identity Male 08/31/2020 7:44 AM MACHINING DEPARTMENT SUPERVISOR Sexual Orientation Straight 08/31/2020 7: 44 AM MACHINING DEPARTMENT SUPERVISOR documented as of this encounter Medications at [...]
--- OUTSIDE RECORDS SUMMARY | 2024-09-07 | XMS_ITS | Encounter Summary ---
Author Organization [facility] Address [address] [facility] [address] [place] [address] Care Team Providers Care Piano Refinisher Name Role Phone Alf KhanRamses SMITH Primary Care Provider [phone] Reason for Visit * Reason Comments Conjunctivitis Both eyes, he notice it this morning both eyes were crusty Back Pain Rash Under his private ar ea Encounter Details Date Type Department Care Team (Latest Contact Info) Description 04/20/2023 3:30 PM CDT Office Visit [facility] Out[facility] [address] [address] Andreina Johnson NP [address] [place] [address] Bacterial conjunctivitis of both eyes (Primary Dx); Rash and nonspecific skin eruption Social History Tobacco Use Types Packs/Day Years Used Date Smoking Tobacco: Never Assessed Sex and Gender Information Value Date Recorded Sex Assigned at Not on file Legal Sex Male 10:34 AM OFFICE CASHIER Gender Identity Not on file Sexual Orientation [...] be sent through Care Everywhere. * Conjunctivitis (Postbed Stitcher) (Turkmen) * Dermatitis (Postbed Stitcher) (Turkmen) documented in this encounter Ordered Prescriptions Prescription [...] this encounter Progress Notes * Andreina Johnson, PRESENTATION DESIGNER - 04/20/2023 3:30 PM CDT Images from [...] and dizziness. Patient has not done anything [id number] for his symptoms. Patient does not wear [...] the rash and had him do topical zzob-obd-[id number] medications. Patient denies drainage from rash, streaking [...] not ill-appearing. HENT: Head: Normocephalic. Mouth/Throat: Lips: [place]. Eyes: General: Lids are normal. Right eye: [...] Johnson NP 04/20/23 4:32 PM Cosigned by aMlick Washington MD at 04/21/2023 9:28 PM CDT [...] 03/26/2023 added in this encounter Care Teams Piano Refinisher Relationship Specialty Start Date End Date Alf Khan DO [address] [place] [address] PCP - General 07/11/21 documented as of this encounter
--- OUTSIDE RECORDS SUMMARY | 2024-09-07 | XMS_ITS | Clinical Summary ---
Author Organization [facility] Address [address] [place] [address] Care Team Providers Care Sports Apparel Internship Name Role Phone Alf Khan DO Primary Care Provider [phone] Allergies Active Allergy Reactions Criticality Noted Date [...] on file Legal Sex Male 10:34 AM WATER JET OPERATOR Gender Identity Not on file Sexual Orientation [...] - Td or Tdap) 07/11/2031, 06/10/2012 Insurance [employer] [place] Care Teams Sports Apparel Internship Relationship Specialty Start Date End Date Alf Khan DO [address] [place] [address] PCP - General 07/11/21
--- OUTSIDE RECORDS SUMMARY | 2024-09-07 | XMS_ITS | Encounter Summary ---
Author Organization [facility] Address [address] [address] Care Team Providers Care Tender Labor Name Role Phone Unavailable Primary Care Provider Unavailabl e Reason for Visit * Reason Onset Date Comments MEDICATION REFILL 04/13/2009 Encounter Details Date Type Department Care Team (Late st Contact Info) Description 04/13/2009 Refill [facility] - Family Medicine [address] [place] [address] Jose Rust DO [address] [place] [address] MEDICATION REFILL Social History Tobacco Use Types Packs/Day Years Used Date Smoking Tobacco: Every Day Alcohol Use Standard Drinks/Week Comments Not Asked 0 (1 standard drink = 0.6 oz pur e alcohol) Sex and Gender Information Value Date Recorded Sex Assigned at Male 08/31/2020 7:44 AM SPACE AND STORAGE CLERK Gender Identity Male 08/31/2020 7:44 AM SPACE AND STORAGE CLERK Sexual Orientation Straight 08/31/2020 7: 44 AM SPACE AND STORAGE CLERK documented as of this encounter Miscellaneous Notes [...]
--- OUTSIDE RECORDS SUMMARY | 2024-09-07 | XMS_ITS | Encounter Summary ---
Author Organization [facility] Address [address] [place] [address] Care Team Providers Care Band Ripsaw Operator Name Role Phone Unavailable Primary Care Provider Trang e Encounter Details Date Type Department Care Team (Latest Contact Info) Description 03/31/2009 8:56 AM CDT - 03/31/2009 11:59 PM CDT Hospital Encounter [facility] Imaging Services - Radiology [address] [place] [address] Discharge Disposition: Home or Self Care Social History Tobacco Use Types Packs/Day Years Used Date Smoking Tobacco: Every Day Alcohol Use Standard Drinks/Week Comments Not Asked 0 (1 standard drink = 0.6 oz pur e alcohol) Sex and Gender Information Value Date Recorded Sex Assigned at Male 08/31/2020 7:44 AM ADMINISTRATIVE SUPPORT ASSOC Gender Identity Male 08/31/2020 7:44 AM ADMINISTRATIVE SUPPORT ASSOC Sexual Orientation Straight 08/31/2020 7: 44 AM ADMINISTRATIVE SUPPORT ASSOC documented as of this encounter Medications at [...]
--- OUTSIDE RECORDS SUMMARY | 2024-09-07 | XMS_ITS | Encounter Summary ---
Author Organization [facility] Address [address] [place] [address] Care Team Providers Care Gas Pumping Station Helper Name Role Phone Unavailable Primary Care Provider Trang fox Encounter Details Date Type Department Care Team (Latest Contact Info) Description 12/22/2010 10:34 AM CDT - 12/22/2010 11:59 PM CDT Hospital Encounter [facility] Imaging Services - Radiology [address] [place] [address] Discharge Disposition: Home or Self Care Social History Tobacco Use Types Packs/Day Years Used Date Smoking Tobacco: Every Day Alcohol Use Standard Drinks/Week Comments Not Asked 0 (1 standard drink = 0.6 oz pur e alcohol) Sex and Gender Information Value Date Recorded Sex Assigned at Male 08/31/2020 7:44 AM PACKAGING MACHINE SUPPLIES DISTRIBUTOR Gender Identity Male 08/31/2020 7:44 AM PACKAGING MACHINE SUPPLIES DISTRIBUTOR Sexual Orientation Straight 08/31/2020 7: 44 AM PACKAGING MACHINE SUPPLIES DISTRIBUTOR documented as of this encounter Medications at [...] propionate (FLONASE) 50 MCG/ACT nasal sprayIndications:Bronc hitis [place] 2 Sprays into each nostril daily. 1 [...]
--- OUTSIDE RECORDS SUMMARY | 2024-09-07 | XMS_ITS | Encounter Summary ---
Author Organization [facility] Address [address] [place] [address] Care Team Providers Care Data Engineer Name Role Phone Unavailable Primary Care Provider Unavailabl e Reason for Visit * Reason Onset Date Comments Scheduling 05/15/2011 Encounter Details Date Type Department Care Team (Late st Contact Info) Description 05/15/2011 Telephone [facility] - Family Medicine [address] [place] [address] Jose Rust DO [address] [place], [place] [id number] Scheduling Social History Tobacco Use Types Packs/Day Years Used Date Smoking Tobacco: Former Cigarettes Q uit: 12/07/2010 Smokeless Tobacco: Never Alcohol Use Standard Drinks/Week Comments Not Asked 0 (1 standard drink = 0.6 oz pur e alcohol) Sex and Gender Information Value Date Recorded Sex Assigned at Male 08/31/2020 7:44 AM SQL ARCHITECT Gender Identity Male 08/31/2020 7:44 AM SQL ARCHITECT Sexual Orientation Straight 08/31/2020 7: 44 AM SQL ARCHITECT documented as of this encounter Miscellaneous Notes * Telephone Encounter - Charito Lopez - 05/15/2011 9:00 AM CDT Patient scheduled for Liver Ultrasound at [facility] on 05/17/2011 at 8:30am. Order placed in [...] work on diet/exercise to help improve lipid slona. Please schedule Liver US documented in this [...]
--- OUTSIDE RECORDS SUMMARY | 2024-09-07 | XMS_ITS | Encounter Summary ---
Author Organization [facility] Address [address] [place] [address] Care Team Providers Care Executive Admin Name Role Phone Unavailable Primary Care Provider Unavailabl e Reason for Referral * Evaluate & Treat Specialty Diagnoses / Procedures Referred By Jean sosa Referred To Contact Jammie Mata DO [address] [facility] [address] [place] [address] [facility] [employer], [facility] [id number] [place] [address] [address] [place] [id number] Referral ID Status Reason Start Date Expiration Date V isits Requested Visits Authorized Specialty Services Required Scheduling Instructions MD Kev Deshpande MD Daniel J. [place] [id number] [facility], [address] [place] [address] Hours: Th 8am to 11:30am Encounter Details Date Type Department Care Team (Late st Contact Info) Description 04/06/2009 Orders Only [facility] [address] [facility] [address] [place] [address] Jammie Mata DO [address] [facility] [address] [place] [address] Cervical Stenosis of Spinal Canal Social History Tobacco Use Types Packs/Day Years Used Date Smoking Tobacco: Every Day Alcohol Use Standard Drinks/Week Comments Not Asked 0 (1 standard drink = 0.6 oz pur e alcohol) Sex and Gender Information Value Date Recorded Sex Assigned at Male 08/31/2020 7:44 AM DIVINITY PROFESSOR Gender Identity Male 08/31/2020 7:44 AM DIVINITY PROFESSOR Sexual Orientation Straight 08/31/2020 7: 44 AM DIVINITY PROFESSOR documented as of this encounter Plan of Treatment Scheduled Referrals Name Type Priority Associated Diagnoses Order Schedule AMB REFERRAL TO NEUROSURGERY Outpatient Referral Routine Cervical Stenosis of Spinal Canal Ordered: 04/06/2009 documented as of this encounter Visit Diagnoses Diagnosis Cervical stenosis of spinal canal- Primary Spinal stenosis in cervical region documented in this encounter
--- OUTSIDE RECORDS SUMMARY | 2024-09-07 | XMS_ITS | Encounter Summary ---
Author Organization [facility] Address [address] [facility] [place] [address] Care Team Providers Care Testing Lead Name Role Phone Unavailable Primary Care Provider Trang e Encounter Details Date Type Department Care Team (Latest Contact Info) Description 05/17/2011 8:21 AM CDT - 05/17/2011 11:59 PM CDT Hospital Encounter [facility] Imaging Services - Ultrasound [address] [place] [address] Jose Rust DO [address] [place] [address] Radiology Diagnostic Discharge Disposition: Home or Self Care Social History Tobacco Use Types Packs/Day Years Used Date Smoking Tobacco: Former Cigarettes Q uit: 12/07/2010 Smokeless Tobacco: Never Alcohol Use Standard Drinks/Week Comments Not Asked 0 (1 standard drink = 0.6 oz pur e alcohol) Sex and Gender Information Value Date Recorded Sex Assigned at Male 08/31/2020 7:44 AM PRINTER APPRENTICE Gender Identity Male 08/31/2020 7:44 AM PRINTER APPRENTICE Sexual Orientation Straight 08/31/2020 7: 44 AM PRINTER APPRENTICE documented as of this encounter Medications at [...]
--- OUTSIDE RECORDS SUMMARY | 2024-09-07 | XMS_ITS | Encounter Summary ---
Author Organization [facility] Address [address] [facility] [place] [address] Care Team Providers Care Quality Control Microbiologist Name Role Phone Unavailable Primary Care Provider Unavailabl e Reason for Visit * Reason Comments Congestion head/chest congest f or 2 days stuffy nose, coughing Pain Back burning feeling in b ack Encounter Details Date Type Department Care Team (Late st Contact Info) Description 03/25/2009 10:45 AM CDT Office Visit [facility] - Family Medicine [id number] [place] [address] [address] [place] [address] AustinidZeb calhoun [address] [facility] [address] [place] [address] Acute Bronchitis (Primary Dx); Nicotine Addiction; Sprain Thoracic Region; Cervical Radiculopathy; HTN; Hyperlipidemia Social History Tobacco Use Types Packs/Day Years Used Date Smoking Tobacco: Every Day Alcohol Use Standard Drinks/Week Comments Not Asked 0 (1 standard drink = 0.6 oz pur e alcohol) Sex and Gender Information Value Date Recorded Sex Assigned at Male 08/31/2020 7:44 AM HAIRCUTTER Gender Identity Male 08/31/2020 7:44 AM HAIRCUTTER Sexual Orientation Straight 08/31/2020 7: 44 AM HAIRCUTTER documented as of this encounter Last Filed [...]
--- OUTSIDE RECORDS SUMMARY | 2024-09-07 | XMS_ITS | Encounter Summary ---
Author Organization [facility] Address [address] [place] [address] Care Team Providers Care Laborer Beam House Name Role Phone Unavailable Primary Care Provider Unavailabl e Reason for Visit * Reason Onset Date Comments Question 03/31/2009 Encounter Details Date Type Department Care Team (Late st Contact Info) Description 03/31/2009 Telephone [facility] - Family Medicine [address] [place] [address] Jose Rust DO [address] [place] [address] Question Social History Tobacco Use Types Packs/Day Years Used Date Smoking Tobacco: Every Day Alcohol Use Standard Drinks/Week Comments Not Asked 0 (1 standard drink = 0.6 oz pur e alcohol) Sex and Gender Information Value Date Recorded Sex Assigned at Male 08/31/2020 7:44 AM ELECTRONIC MAINTENANCE SUPERVISOR Gender Identity Male 08/31/2020 7:44 AM ELECTRONIC MAINTENANCE SUPERVISOR Sexual Orientation Straight 08/31/2020 7: 44 AM ELECTRONIC MAINTENANCE SUPERVISOR documented as of this encounter Miscellaneous Notes [...]
--- OUTSIDE RECORDS SUMMARY | 2024-09-07 | XMS_ITS | Encounter Summary ---
Author Organization [facility] Address [address] [place] [address] Care Team Providers Care Senior Product Engineer Name Role Phone Unavailable Primary Care Provider Unavailabl e Reason for Visit * Reason Onset Date Comments MEDICATION REFILL 01/16/2011 Encounter Details Date Type Department Care Team (Late st Contact Info) Description 01/16/2011 Refill [facility] - Family Medicine [address] [place] [address] Liv Gaines MD MEDICATION REFILL Social History Tobacco Use Types Packs/Day Years Used Date Smoking Tobacco: Every Day Alcohol Use Standard Drinks/Week Comments Not Asked 0 (1 standard drink = 0.6 oz pur e alcohol) Sex and Gender Information Value Date Recorded Sex Assigned at Male 08/31/2020 7:44 AM RN OBSERVATION Gender Identity Male 08/31/2020 7:44 AM RN OBSERVATION Sexual Orientation Straight 08/31/2020 7: 44 AM RN OBSERVATION documented as of this encounter Miscellaneous Notes [...]
--- OUTSIDE RECORDS SUMMARY | 2024-09-07 | XMS_ITS | Encounter Summary ---
Author Organization [facility] Address [address] [facility] [place] [address] Care Team Providers Care Solder Making Supervisor Name Role Phone Unavailable Primary Care Provider Trang e Encounter Details Date Type Department Care Team (Latest Contact Info) Description 04/06/2010 10:10 AM CDT - 04/06/2010 11:59 PM CDT Hospital Encounter [facility] Vascular Care [address] [place] [address] Discharge Disposition: Home or Self Care Social History Tobacco Use Types Packs/Day Years Used Date Smoking Tobacco: Every Day Alcohol Use Standard Drinks/Week Comments Not Asked 0 (1 standard drink = 0.6 oz pur e alcohol) Sex and Gender Information Value Date Recorded Sex Assigned at Male 08/31/2020 7:44 AM BOWLING FLOOR DESK CLERK Gender Identity Male 08/31/2020 7:44 AM BOWLING FLOOR DESK CLERK Sexual Orientation Straight 08/31/2020 7: 44 AM BOWLING FLOOR DESK CLERK documented as of this encounter Medications at [...] AM CDTAssociated Order(s): CARDIAC STRESS ECHO ORDER [facility] Stress Test [facility] STRESS TEST PATIENT: LENNIE QUINTANILLA MR#: [id number] [id number] 1965 ROOM: REFERRING PHYSICIAN: ANGELINA CARTY [...] echocardiographic images. BERNABE MATIAS MD SKN/PM #: [id number] CC: ANGELINA CARTY, STRESS TEST - DP [...] Bernabe Matias MD - 04/06/2010 11:45 AM [facility] STRESS TEST PATIENT: LENNIE QUINTANILLA MR#: [id number] DATE OF SERVICE: : 1965 ROOM: REFERRING [...] echocardiographic images. BERNABE MATIAS MD SKN/PM #: [id number] CC: ANGELINA CARTY DO STRESS TEST - DP Bernabe Matias MD CARDIAC SERVICES ORD ERABLES documented in this encounter Visit Diagnoses Diagnosis HTN (hypertension), benign Essential hypertension, benign Hyperlipidemia Other and unspecified hyperlipidemia Chest pain Chest pain, unspecified Essential hypertension, benign documented in this encounter
--- OUTSIDE RECORDS SUMMARY | 2024-09-07 | XMS_ITS | Encounter Summary ---
Author Organization [facility] Address [address] [facility] [address] [facility] [place] [address] Care Team Providers Care Submarine Element Coordinator Name Role Phone Unavailable Primary Care Provider Unavailabl e Reason for Visit * Reason Onset Date Comments Medication Problem 03/30/2009 Encounter Details Date Type Department Care Team (Late st Contact Info) Description 03/30/2009 Telephone [facility] - Family Medicine [address] [place] [address] Jose Rust DO [address] [place] [address] Medication Problem Social History Tobacco Use Types Packs/Day Years Used Date Smoking Tobacco: Every Day Alcohol Use Standard Drinks/Week Comments Not Asked 0 (1 standard drink = 0.6 oz pur e alcohol) Sex and Gender Information Value Date Recorded Sex Assigned at Male 08/31/2020 7:44 AM LACQUER MAKER Gender Identity Male 08/31/2020 7:44 AM LACQUER MAKER Sexual Orientation Straight 08/31/2020 7: 44 AM LACQUER MAKER documented as of this encounter Miscellaneous Notes [...]
--- OUTSIDE RECORDS SUMMARY | 2024-09-07 | XMS_ITS | Encounter Summary ---
Author Organization [facility] Address [address] [facility] [address] [place] [address] Care Team Providers Care Applied Biology Professor Name Role Phone Unavailable Primary Care Provider Unavailabl e Reason for Visit * Reason Onset Date Comments MEDICATION REFILL 01/16/2011 Encounter Details Date Type Department Care Team (Late st Contact Info) Description 01/16/2011 Refill [facility] - Family Medicine [address] [place] [address] Liv Gaines MD MEDICATION REFILL Social History Tobacco Use Types Packs/Day Years Used Date Smoking Tobacco: Every Day Alcohol Use Standard Drinks/Week Comments Not Asked 0 (1 standard drink = 0.6 oz pur e alcohol) Sex and Gender Information Value Date Recorded Sex Assigned at Male 08/31/2020 7:44 AM ARMORING 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 Gender Identity Male 08/31/2020 7:44 AM ARMORING 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 Sexual Orientation Straight 08/31/2020 7: 44 AM ARMORING 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 documented as of this encounter Plan of Treatment Not on file documented as of this encounter Visit Diagnoses Diagnosis HTN (hypertension), benign- Primary Essential hypertension, benign documented in this encounter
--- OUTSIDE RECORDS SUMMARY | 2024-09-07 | XMS_ITS | Encounter Summary ---
Author Organization [facility] Address [address] [place] [address] Care Team Providers Care Residential Leasing Agent Name Role Phone Unavailable Primary Care Provider Trang e Encounter Details Date Type Department Care Team (Latest Contact Info) Description 03/31/2009 8:49 AM CDT - 03/31/2009 11:59 PM CDT Hospital Encounter [facility] Imaging Services - Radiology [address] [place], [place] [id number] Jammie Mata DO [address] [facility] [address] [place] [address] Diagnostic Discharge Disposition: Home or Self Care Social History Tobacco Use Types Packs/Day Years Used Date Smoking Tobacco: Every Day Alcohol Use Standard Drinks/Week Comments Not Asked 0 (1 standard drink = 0.6 oz pur e alcohol) Sex and Gender Information Value Date Recorded Sex Assigned at Male 08/31/2020 7:44 AM CHANGE MANAGEMENT FACILITATOR Gender Identity Male 08/31/2020 7:44 AM CHANGE MANAGEMENT FACILITATOR Sexual Orientation Straight 08/31/2020 7: 44 AM CHANGE MANAGEMENT FACILITATOR documented as of this encounter Medications at [...]
--- OUTSIDE RECORDS SUMMARY | 2024-09-07 | XMS_ITS | Encounter Summary ---
Author Organization [facility] Address [address] [place] [address] Care Team Providers Care Comic Artist Name Role Phone Unavailable Primary Care Provider Unavailabl e Reason for Visit * Reason Comments Cough Pt is here for const ant prod cough, swollen glands, headache; onset Tues. Swelling Gland Headache Pain Abdominal Also about one wk ag o he developed some discomfort in his abdomen. No n/v/d. onset after eating serbian food. Hypertension has been taking B/P meds daily. Stress mother had CA-pt wor xenia he will develop same. Also worried he has some illness. Encounter Details Date Type Department Care Team (Late st Contact Info) Description 06/16/2009 2:40 PM CDT Office Visit [facility] - Family Medicine [address] [place] [address] Jose Rust, [address] [place] [address] Acute Bronchitis (Primary Dx); HTN (Hypertension), Benign; Hyperlipidemia; Nicotine Dependence Social History Tobacco Use Types Packs/Day Years Used Date Smoking Tobacco: Every Day Alcohol Use Standard Drinks/Week Comments Not Asked 0 (1 standard drink = 0.6 oz pur e alcohol) Sex and Gender Information Value Date Recorded Sex Assigned at Male 08/31/2020 7:44 AM CAR SALTER Gender Identity Male 08/31/2020 7:44 AM CAR SALTER Sexual Orientation Straight 08/31/2020 7: 44 AM CAR SALTER documented as of this encounter Last Filed [...] his abdomen. No n/v/d. onset after eating serbian food. ??? Hypertension has been taking B/P [...]
--- OUTSIDE RECORDS SUMMARY | 2024-09-07 | XMS_ITS | Referral Summary ---
Author Organization [facility] Address [address] [place] [address] Care Team Providers Care Forging Engineer Name Role Phone Alf Khan DO Primary Care Provider [phone] Allergies Active Allergy Reactions Criticality Noted Date [...] on file Legal Sex Male 10:34 AM TRAINS SERVICE CONDUCTOR Gender Identity Not on file Sexual Orientation [...] Plan of Treatment Not on file Insurance [facility] Care Teams Forging Engineer Relationship Specialty Start Date End Date Alf Khan DO [address] [place] [address] PCP - General 07/11/21
--- OUTSIDE RECORDS SUMMARY | 2024-09-07 | XMS_ITS | Encounter Summary ---
Author Organization [facility] Address [address] [place] [address] Care Team Providers Care Front Desk Lead Name Role Phone Unavailable Primary Care Provider Unavailabl e Reason for Visit * Reason Onset Date Comments Results 12/22/2010 Encounter Details Date Type Department Care Team (Late st Contact Info) Description 12/22/2010 Telephone [facility] - Family Medicine [address] [place] [address] Liv Gaines MD Results Social History Tobacco Use Types Packs/Day Years Used Date Smoking Tobacco: Every Day Alcohol Use Standard Drinks/Week Comments Not Asked 0 (1 standard drink = 0.6 oz pur e alcohol) Sex and Gender Information Value Date Recorded Sex Assigned at Male 08/31/2020 7:44 AM BRAIN PICKER Gender Identity Male 08/31/2020 7:44 AM BRAIN PICKER Sexual Orientation Straight 08/31/2020 7: 44 AM BRAIN PICKER documented as of this encounter Miscellaneous Notes [...]
--- OUTSIDE RECORDS SUMMARY | 2024-09-07 | XMS_ITS | Encounter Summary ---
Author Organization [facility] Address [address] [place] [address] Care Team Providers Care Program Coordinator Name Role Phone Unavailable Primary Care Provider Unavailabl e Reason for Visit * Reason Onset Date Comments Encounter Opened In Error 09/19/2022 Encounter Details Date Type Department Care Team (Late st Contact Info) Description 04/06/2010 8:00 AM CDT Office Visit [facility] - Family Medicine [address] [place] [address] ERRONEOUS ENCOUNTER--DISREGARD (Primary Dx) Social History Tobacco Use Types Packs/Day Years Used Date Smoking Tobacco: Every Day Alcohol Use Standard Drinks/Week Comments Not Asked 0 (1 standard drink = 0.6 oz pur e alcohol) PHQ-2 Answer Date Recorded PHQ2 TOTAL SCORE 0 09/19/2022 Sex and Gender Information Value Date Recorded Sex Assigned at Male 08/31/2020 7:44 AM NITROCELLULOSE MAKER Gender Identity Male 08/31/2020 7:44 AM NITROCELLULOSE MAKER Sexual Orientation Straight 08/31/2020 7: 44 AM NITROCELLULOSE MAKER COVID-19 Exposure Response Date Recorded In the last month, have you been in contact with someone who was confirmed or suspected to have Coronavirus / COVID-19? No / Unsure 07/13/2021 9:06 AM NITROCELLULOSE MAKER documented as of this encounter Progress Notes * Alexi Perez - 09/19/2022 2:41 PM CST Trenton Crockett encounter was opened in error. Please disregard any activity associated with this encounter. OCELLULOSE MAKER documented in this encounter Plan of [...]
--- OUTSIDE RECORDS SUMMARY | 2024-09-07 | XMS_ITS | Encounter Summary ---
Author Organization [facility] Address [address] [place] [address] Care Team Providers Care Data Mining Analyst Name Role Phone Unavailable Primary Care Provider Unavailabl e Reason for Visit * Reason Onset Date Comments MEDICATION REFILL 05/10/2011 Encounter Details Date Type Department Care Team (Late st Contact Info) Description 05/10/[address] [facility] - Family Medicine [address] [place] [address] Jose Rust DO [address] [place] [address] MEDICATION REFILL Social History Tobacco Use Types Packs/Day Years Used Date Smoking Tobacco: Former Cigarettes Q uit: 12/07/2010 Smokeless Tobacco: Never Alcohol Use Standard Drinks/Week Comments Not Asked 0 (1 standard drink = 0.6 oz pur e alcohol) Sex and Gender Information Value Date Recorded Sex Assigned at Male 08/31/2020 7:44 AM SENIOR BUDGET ANALYST Gender Identity Male 08/31/2020 7:44 AM SENIOR BUDGET ANALYST Sexual Orientation Straight 08/31/2020 7: 44 AM SENIOR BUDGET ANALYST documented as of this encounter Miscellaneous [...]
== END 2024-09-02 18:10 | disposition home or self-care (01) | DRG 349 ==
LOC: ANHED 13:48 → ANH3MEDSUR 17:18 → ANH3MED 17:31
PROVIDERS: Nurse Practitioner Adult Health; Physician Assistant; Surgery; Admitting Provider General Practice; Emergency Provider Student in an Organized Health Care Education/Training Program; PCP Family Medicine; Visit Provider Nurse Practitioner Family
PROC: 0D9Q0ZZ Drainage of Anus, Open Approach (ICD-10-PCS; CPT 46040; principal; 2024-09-01 12:00)
DX: K61.1 Rectal abscess (principal); F17.210 Nicotine dependence, cigarettes, uncomplicated; E11.9 Type 2 diabetes mellitus without complications; K80.20 Calculus of gallbladder without cholecystitis without obstruction; I10 Essential (primary) hypertension; D72.829 Elevated white blood cell count, unspecified; E66.9 Obesity, unspecified; Z68.36 Body mass index [BMI] 36.0-36.9, adult
CPT/HCPCS: 36415; 74177; 80048; 80053; 82948; 83036; 83605; 85025; 85610; 85652; 85730; 86140; 87040; 96365; 96367; 96375; 96376; 99285; A9270; J0744; J1171; J1836; J1885; J2250; J2405; J2543; J2704; J3010; J3370; J7120; Q9967

== ENCOUNTER 2025-04-28 11:13 | Emergency (ER) | payer BC, SELFPAY ==
--- NOTE | ~2025-04-28 | XR_ITS ---
EXAM/PROCEDURE: XR chest 2V - 04/28/2025 12:10 CDT HISTORY: 59 years old Male with cough, CHEST HEAVINESS, CONGESTION TECHNIQUE: Two view(s) of the chest. COMPARISON: None available. FINDINGS: LUNGS/ PLEURA: Mild vascular congestion with increased interstitial markings. HEART/ MEDIASTINUM: Mild cardiomegaly. BONES: No acute osseous abnormality. OTHER: Visualized upper abdomen is unremarkable. IMPRESSION: Mild CHF. Superimposed infection cannot be excluded. Reviewed, dictated and finalized at location N.
[2025-04-28 11:24] VITALS: BP 186/94; PULSE 85; RESP 16; TEMP 36.8; O2SAT 95
[2025-04-28] MEDS: BENZONATATE 100 MG CAPSULE 200 MG PO (11:53)
[2025-04-28 11:54] VITALS: BP 159/87; PULSE 90; RESP 20; O2SAT 96
--- NOTE | 2025-04-28 12:08 | ED_ITS ---
HPI - General Adult General Chief complaint: Upper Respiratory Infection Stated complaint: man flu Time Seen by Provider: 04/28/25 11:38 History of Present Illness HPI narrative: Patient is a 59-year-old gentleman who presents to the emergency department with chief complaint of flu-like symptoms. Patient reports that for the last 3 days he has been having upper respiratory symptoms body aches patient reports he has taken pzjl-swc-vfhcdby medications without relief patient does report that he has had a cough Related Data Allergies Allergy/AdvReac Type Severity Reaction Status Date / Time azithromycin Allergy Hives Verified 09/29/24 14:33 Review of Systems 2 Review of Systems: A 10 system review of systems was completed on the patient and is negative except for what is stated in the HPI. Nursing and ancillary documentation was reviewed. [facility] Past Medical History Medical History Elevated BP without diagnosis of hypertension History of tobacco abuse BMI 34.0-34.9,adult Perirectal abscess Yary infection of flexural skin DM2 (diabetes mellitus, type 2) Elevated hemoglobin A1c Indu-rectal abscess Surgical History Surgical History History of colonoscopy Age 50 History of incision and drainage Perirectal abscess Family History Family History Mother Cancer Alcoholism Father Acute myocardial infarction Social History Social History Social History: The patient is on his 2nd marriage and he has 2 children. The patient smoked in then quit smoking in went back to smoking and has not smoked for week. He was smoking a pack a cigarettes a day up until 1 week ago. 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 He denies any alcohol or marijuana or illicit drugs. Code status full code Smoking packs per day: 1 Smoking cigarettes per day: 20.0 Years smoked: 25 Smoking pack-years: 25.00 Smoking status: Current every day smoker Tobacco type: cigarettes Alcohol intake: never Substance use: never Substance use type: does not use Do You Feel Safe in your Home?: Yes Lack of Transportation: YES Lack of Food: Never True Current Housing: I Have Housing Concerned About Future Housing: No Difficulty Paying Gas/Electric Bills: No Difficulty Paying for Meds: No Currently Unemployed: No Education: Decline to Answer Difficulty w/ Childcare or Family Care: No Living arrangements: with family Occupation/Education: 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 HEAD: Normocephalic, atraumatic. EYES: PERRLA and EOMI. ENT: Nares clear, no rhinorrhea or epistaxis. Mucous membranes moist. NECK: Supple. CHEST: Clear to auscultation. No respiratory distress. HEART: Regular rate and rhythm. No murmur heard. Normal peripheral pulses. ABDOMEN: Soft, nontender, nondistended, normal active bowel sounds. EXTREMITIES: Normal range of motion. No edema. SKIN: Warm, dry, no rash. NEURO: No focal deficits. Alert and oriented x3. PSYCH: Normal mood and affect. Course Vital Signs Vital signs: Vital Signs Temperature 36.8 C 04/28/25 11:24 Pulse Rate 85 04/28/25 11:24 Respiratory Rate 16 04/28/25 11:24 Blood Pressure 186/94 H 04/28/25 11:24 Pulse Oximetry 95 04/28/25 11:24 Oxygen Delivery Room Air 04/28/25 11:24 Temperature 36.8 C 04/28/25 11:24 Pulse Rate 90 04/28/25 11:54 Respiratory Rate 20 04/28/25 11:54 Blood Pressure 159/87 H 04/28/25 11:54 Pulse Oximetry 96 04/28/25 11:54 Oxygen Delivery Room Air 04/28/25 11:54 Medical Decision Making [facility] Narrative Medical decision making narrative: Differential diagnosis includes pneumonia, CHF, EKG showed no acute ischemic changes chest x-ray showed Mild CHF. Superimposed infection cannot be excluded. COVID flu RSV are negative BNP and troponin were negative The patient was started on doxycycline prednisone Tessalon Perles and an inhaler Vital Signs Vital Signs: Vital Signs Temperature 36.8 C 04/28/25 11:24 Pulse Rate 85 04/28/25 11:24 Respiratory Rate 16 04/28/25 11:24 Blood Pressure 186/94 H 04/28/25 11:24 Pulse Oximetry 95 04/28/25 11:24 Oxygen Delivery Room Air 04/28/25 11:24 Temperature 36.8 C 04/28/25 11:24 Pulse Rate 90 04/28/25 11:54 Respiratory Rate 20 04/28/25 11:54 Blood Pressure 159/87 H 04/28/25 11:54 Pulse Oximetry 96 04/28/25 11:54 Oxygen Delivery Room Air 04/28/25 11:54 Lab Data 04/28/25 13:17 04/28/25 13:17 Labs: Lab Results 04/28/25 04/28/25 Range/Units 11:54 13:17 WBC 9.2 (4.5-10.0) K/mm3 RBC 5.15 (4.6-6.20) M/mm3 Hgb 16.9 (14.0-18.0) g/dL Hct 49.4 (42.0-52.0) % MCV 95.9 (80-100) fl MCH 32.8 (26-34) pg MCHC 34.2 (32-36) g/dl RDW 12.3 (11.5-14.5) % Plt Count 189 (150-375) k/mm3 MPV 11.3 H (7.4-10.4) fl Immature Gran % (Auto) 0.2 (0-0.5) % Neut % (Auto) 59.6 (45.5-73.1) % Lymph % (Auto) 28.8 (18.3-44.2) % Merrick % (Auto) 8.3 (2.6-8.5) % Eos % (Auto) 2.3 (0-4.4) % Baso % (Auto) 0.8 (0.2-1.2) % Lymph # (Auto) 2.66 (0.9-3.2) K/mm3 Merrick # (Auto) 0.8 H (0.1-0.6) K/mm3 Eos # (Auto) 0.2 (0-0.3) K/mm3 Baso # (Auto) 0.1 (0.0-0.1) K/mm3 Abs Immat Gran (auto) 0.02 (0.00-0.031) K/mm3 Absolute Neuts (auto) 5.5 (1.3-6.7) K/mm3 Absolute Nucleated RBC 0.000 (0.0-0.012) K/mm3 Nucleated RBC % 0.0 (0.0-0.2) % Sodium 135 L (137-145) mmol/L Potassium 4.2 (3.4-5.0) mmol/L Chloride 101 (98-107) mmol/L Carbon Dioxide 26 (22-30) mmol/L Anion Gap 8 (4-12) mmol/L BUN 14 D (9-20) mg/dL Creatinine 0.60 L (0.7-1.3) mg/dL Estim Creat Clear Calc 149 ml/min Estimated GFR > 60 (59 - ) Glucose 220 H (65-110) mg/dL Calcium 8.6 (8.4-10.2) mg/dL Total Bilirubin 0.8 (0.2-1.3) mg/dL AST 43 (17-59) U/L ALT 27 (6-50) U/L Alkaline Phosphatase 83 (38-126) U/L Troponin I < 0.012 (0.000-0.034) ng/mL NT-Pro-B Natriuret Pep 37 (19.9-100) pg/mL Total Protein 7.5 (6.3-8.2) g/dL Albumin 4.0 (3.5-5.1) g/dL Influenza A (RT-PCR) Negative (Negative) Influenza B (RT-PCR) Negative (Negative) RSV (RT-PCR) Negative (Negative) SARS-CoV-2 RNA (RT-PCR) Negative (Negative) Group A Strep (PCR) Not detected (Negative) Discharge Plan Discharge Clinical Impression: Pneumonia Patient Disposition: Home Condition: Stable Instructions: Antibiotic Form, Bacterial Pneumonia (ED) Patient Language: Irish Prescriptions: New doxycycline hyclate 100 mg tablet 100 mg PO BID Qty: 14 0RF benzonatate 200 mg capsule 200 mg PO TID PRN (Reason: cough) Qty: 21 0RF prednisone 20 mg tablet 40 mg PO DAILY 5 Days Qty: 10 0RF albuterol sulfate 90 mcg/actuation HFA aerosol inhaler 2 puff inhalation QID PRN (Reason: shortness of breath or wheezing) Qty: 8.5 0RF No Action simvastatin 10 mg tablet 10 mg PO DAILY Qty: 90 1RF ibuprofen 600 mg tablet 600 mg PO TID PRN (Reason: pain) 6 Days Qty: 18 0RF lisinopril 10 mg tablet 10 mg PO DAILY Qty: 90 0RF Follow-up/Referrals: PHYSICIAN,RADIATION OFFICER [Primary Care Provider, Internal Medicine] Mamadou Krueger MD [Physician, Family Practice] Time of Disposition: 14:42
[2025-04-28] MEDS: IPRATROPIUM 0.5 MG/ALBUTEROL SULFATE 2.5 MG AMPUL.NEB 3 ML INHALATION (12:15)
[2025-04-28 12:25] LABS: Strep Group A RT-PCR NOT DETECTED (Negative)
--- NOTE | 2025-04-28 12:32 | ECG_ITS ---
Test Date: 2025-04-28 13:19:55 Measurements Intervals [place] Rate: 81 P: 43 NC: 181 QRS: 2 QRSD: 110 T: 27 QT: 360 QTc: 419 Interpretive Statements SINUS RHYTHM NONSPECIFIC T-WAVE ABNORMALITY ABNORMAL ECG Compared to ECG 03/03/2024 13:41:26 T-wave abnormality now present Intraventricular conduction delay no longer present Myocardial infarct finding no longer present Electronically Signed On 04-28-2025 15:40:54 CDT by Alpesh Infante M.D.
[2025-04-28 12:35] LABS: Influenza A QL RT-PCR Negative (Negative); Influenza B QL RT-PCR Negative (Negative); RSV RNA, RT-PCR Negative (Negative); SARS-CoV-2 RNA PCR Negative (Negative)
[2025-04-28 13:23] LABS: Hematocrit 49.4 % (42.0-52.0); Hemoglobin 16.9 g/dL (14.0-18.0); Immature Granulocyte Percent A 0.2 % (0-0.5); Lymphocytes Absolute Auto 2.66 K/mm3 (0.9-3.2); Mean Corpuscular HGB Conc 34.2 g/dl (32-36); Mean Corpuscular Hemoglobin 32.8 pg (26-34); Mean Corpuscular Volume 95.9 fl (80-100); Nucleated Red Blood Cells Absolute Auto 0.000 K/mm3 (0.0-0.012); Nucleated Red Blood Cells Perc 0.0 % (0.0-0.2); Platelet Count Result 189 k/mm3 (150-375); Red Blood Count 5.15 M/mm3 (4.6-6.20); White Blood Count 9.2 K/mm3 (4.5-10.0)
--- OUTSIDE RECORDS SUMMARY | 2025-04-28 13:34 | XMS_ITS | Clinical Summary ---
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 Gender Identity Not on file Sexual Orientation Not on file Obstetrics History Last Filed Vital Signs Vital Sign Reading Time Taken Comments Blood Pressure 162/82 04/20/2023 3:43 PM CDT Pulse 83 04/20/2023 3:43 PM CDT Temperature 36.8 C (98.3 F) 04/20/2023 3:43 PM CDT Respiratory Rate 16 04/20/2023 3:43 PM CDT Oxygen Saturation 95% 04/20/2023 3:43 PM CDT Inhaled Oxygen Concentration - - Weight 113.9 kg (251 lb) 04/20/2023 3:43 PM CDT Height 180.3 cm (5' 11) 04/20/2023 3:43 PM CDT Body Mass Index 35.01 04/20/2023 3:43 PM CDT Plan of Treatment Health Maintenance Due Date Last Done Comments Colon Cancer Screening-Colonoscopy 1965 Depression Screening 1965 Hepatitis C Screening 1965 Prostate Cancer Screening-PSA 1965 Hepatitis B Screening 11/30/1983 Regular Well Visit/Exam 18-64 11/30/1983 Pneumococcal vaccine <65 (1 of 2 - PCV) 1984 Zoster Vaccine (1 of 2) 11/30/2015 Influenza Vaccine (#1) 2025 05/23/2011 DTaP/Tdap/Td Vaccine (3 - Td or Tdap) 07/11/2031, 06/10/[address] Care Teams Trial Court Judge Relationship Specialty Start Date End Date Alf Khan DO [address] [place] [address] PCP - General 07/11/21
--- OUTSIDE RECORDS SUMMARY | 2025-04-28 13:34 | XMS_ITS | Clinical Summary ---
Author Organization [facility] Address [address] [place] [address] Care Team Providers Care Glass Sander Belt Name Role Phone Pcp, Manuel Pérez Primary Care Provider Unav ailable Source Comments [facility],non-owned Affiliates and Associated Physician Practices is amultiple site organization consisting of ambulatory clinics and hospital sitesin [place], [place], [place]. This disclosure is being madepursuant to the Care Everywhere program and may not contain all information available regarding this patient. Last updated 18.[facility] Allergies Active Allergy Reactions Criticality Noted Date Comments Perry Inhibitors Cough Low 09/30/2009 Azithromycin Itching 02/18/2019 Medications * Be aware that medications may not be up to date on this document. Alwaysverify current medications with the patient. HYDROcodone-acet aminophen ([place]) 5-325 MG tabletIndication s:Chronic pain syndrome Take 1 (one) tablet by mouth every 4 hours as needed for Pain Dx M50.30 120 tablet 02/03/2023 Active HYDROcodone-acet aminophen ([place]) 7.5-325 MG tabletIndication s:Chronic pain syndrome Take 1 (one) tablet by mouth every 4 hours as needed for Pain Dx M50.30 120 tablet 01/07/2023 Active HYDROcodone-acet aminophen ([place]) 7.5-325 MG tabletIndication s:Chronic pain syndrome Take 1 (one) tablet by [...] Date Resolved Date Hypertension 01/08/2009 06/16/2009 Immunizations Immunization Administration Dates Next Due INFLUENZA VACCINE, TRIV. 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 Legal Sex Male 4:31 AM FRICTION SAW OPERATOR Gender Identity Male 08/31/2020 7:44 AM FRICTION SAW OPERATOR Sexual Orientation Straight 08/31/2020 7: 44 AM FRICTION SAW OPERATOR Last Filed Vital Signs Vital Sign Reading Time Taken Comments Blood Pressure 172/93 03/15/2023 8:59 AM CDT Pulse 102 03/15/2023 9:22 AM CDT Temperature 36.7 C (98.1 F) 03/15/2023 8:59 AM CDT Respiratory Rate 20 03/15/2023 8:59 AM CDT Oxygen Saturation 97% 03/15/2023 9:22 AM CDT Inhaled Oxygen Concentration - - Weight 117.9 kg (260 lb) 03/15/2023 8:59 AM CDT Height 182 cm (5' 11.65) 03/15/2023 8:59 AM CDT Body Mass Index [...] 50+ (1 of 2 - PCV) 1984 LUNG CANCER SCREENING 11/30/2015 ZOSTER VACCINE (1 of 2) 11/30/2015 Opioid Medication Urine Drug Screening 09/20/2023 09/20/2022 (Done Outside Per Report), 01/09/2021 SCREENING FOR DIABETES 01/10/2024 , 01/09/2021, 02/22/2018, Additional history exists COLON MONITORING 04/15/2024 04/15/2014 COLONOSCOPY - COLON CA SCREENING 04/15/2024 04/15/2014 Colorectal Cancer Screening 04/15/2024 DEPRESSION SCREENING 08/26/2024 09/19/2022, 10/27/19 22 COVID-19 VACCINE ( season) 2025 INFLUENZA VACCINE (#1) 2025 06/10/2012, 2010 LIPID TESTING 01/09/2026 01/09/2021, 03/26, 04/05/2014, Additional history exists DTAP/TDAP/TD VACCINES (3 - Td or Tdap) 07/11/2031 07/11/2021, 06/10/2012 HEPATITIS C SCREENING Completed 05/09/2011, 010 HIB VACCINE Aged Out No longer eligi ble based on patient's age to complete this topic HPV VACCINE Aged Out No longer eligi ble based on patient's age to complete this topic MENINGOCOCCAL (Group B) VACCINE SHARED DECISION-MAKING Aged Out No longer eligible based on patient's age to complete this topic MENINGOCOCCAL GROUPS A/C/Y/W VACCINE Aged Out No longer eligible based [...] CONFIRMATION (01/09/2021 10:45 AM CDT) Opiates Negative [id number] [facility] ACCOUNT BILL Comment: Opiate test includes Codeine and Morphine only. FASTING 01/09/2021 10:4 5 AM CDT 01/09/2021 Narrative Resulting Agency Comment Lab Testing performed at: [facility] [place] [address] [place] [id number] [place] Alf Khan DO LAB - URINE CHEMISTRY ORDERAB LES Final Result [facility] ACCOUNT BILL [address] [place] [address] * (ABNORMAL) COMPREHENSIVE METABOLIC PANEL (01/09/2021 10:44 [...] reports eGFR in compliance with the current recommendations of the National Kidney Foundation. [facility] will update reporting as new guidelines are published from the NKF-ASN Task force. BUN/Creatinine Ratio 20 9 - 20 [...] Resulting Agency Comment Lab Testing performed at: [facility] [id number] [id number] Alf Khan DO LAB - CHEMISTRY ORDERABLES Fi nal Result Performing Organization Address [facility] de Phone Number [facility] ACCOUNT BILL [address] [place] [address] * (ABNORMAL) LIPID PROFILE (01/09/2021 10:44 AM [...] Resulting Agency Comment [facility]: [facility] [address] [id number] Alf Khan DO LAB - CHEMISTRY ORDERABLES Fi nal Result Performing Organization Address [facility] de Phone Number [facility] ACCOUNT BILL [address] [place] [address] * ENDOSCOPY, COLON, SCREENING (04/15/2014 8:24 AM CDT) Report Endoscopy POC _ Patient Name: Trenton White Procedure Date: 04/15/2014 8:24 AM Date of : 1965 Admit Type: Outpatient Age: 48 Gender: Male Attending MD: Astrid Rios, DO _ Procedure: Colonoscopy Indications: Abdominal pain in the right lower quadrant Providers: Astrid Rios DO (Doctor) Referring MD: Alf Khan DO (Referring MD) Medicines: Sedation Required Anesthesia Staff Assistance Complications: No immediate complications. _ Procedure: Pre-Anesthesia Assessment: - ASA Grade Assessment: II - A patient with mild systemic disease. After I obtained informed consent, the scope was passed under direct vision. Throughout the procedure, the patient's blood pressure, pulse, and oxygen saturations were monitored continuously. The scope was introduced through the anus and advanced to the cecum, identified by appendiceal orifice and ileocecal valve. The colonoscopy was performed without difficulty. The patient tolerated the procedure well. The quality of the bowel preparation was good. Findings: A sessile polyp was found in the sigmoid colon. The polyp was small in size. The polyp was removed with a hot snare. Resection and retrieval were complete. A few small-mouthed diverticula were found in the entire colon. Internal hemorrhoids were found during retroflexion and were mild. _ Impression: - One small polyp in the sigmoid colon. Resected and retrieved. - Diverticulosis in the entire examined colon. - Internal hemorrhoids. Recommendation: - Await pathology results. - Repeat colonoscopy in 3 years for surveillance. Procedure Code(s): --- Professional --- 14993, Colonoscopy, flexible, proximal to splenic flexure; with removal of tumor(s), polyp(s), or other lesion(s) by snare technique --- Technical --- 83226, Colonoscopy, flexible, proximal to splenic flexure; with removal of tumor(s), polyp(s), or other lesion(s) by snare technique Diagnosis Code(s): --- Professional --- 211.3, Benign neoplasm of colon 455.0, Internal hemorrhoids without mention of complication 789.03, Abdominal pain, right lower quadrant 562.10, Diverticulosis of colon (without mention of hemorrhage) --- Technical --- 211.3, Benign neoplasm of colon 455.0, Internal hemorrhoids without mention of complication 789.03, Abdominal pain, right lower quadrant 562.10, Diverticulosis of colon (without mention of hemorrhage) CPT copyright 2013 [employer]. All rights reserved. The codes documented in this report are preliminary and upon local delivery driver review may be revised to meet current compliance requirements. ___ Astrid Rios DO 04/15/2014 8:51 AM This report has been signed electronically. Number of Addenda: 0 Note Initiated On: 04/15/2014 8:24 AM [facility] 04/15/2014 8:24 AM CDT Astrid Rios DO GI PROCEDURE ORDERABLES Edite d Result - Final [facility] [place] [address] * HEPATITIS SCREEN ACUTE W/REFLX HBSAG (POREF (05/09/2011 2:50 PM CDT) Hepatitis A Virus Antibody IgM NON-REACTI VE NON-REACT [facility] Comment: Test Performed at: [facility] [address] [place] [address] BISI SCHWARZ DO,MPH Hepatitis B Virus Surface Antigen NON-REACTI VE NON-REACT [facility] Hepatitis B Core Virus Antibody IgM NON-REACTI VE NON-REACT [facility] Hepatitis C Antibody NON-REACTI VE NON-REACT [facility] Signal to Cut-Off 0.12 <1.00 [facility] 05/09/2011 2:50 PM CDT 05/10/2011 5:23 AM CDT us Jose Rust DO LAB - CHEMISTRY ORDERABLES Fi nal Result [facility] [address] [place] [address] from Last 3 Months or Most Recently Relevant to Health Maintenance Insurance [facility] [place] [id number] [place] Care Teams Glass Sander Belt Relationship Specialty Start Date End Date Pcp, Manuel Pérez PCP - General 02/28/23
--- OUTSIDE RECORDS SUMMARY | 2025-04-28 13:34 | XMS_ITS | Encounter Summary ---
Author Organization [facility] Address [address] [place] [address] Care Team Providers Care Avionics Systems Integration Specialist Name Role Phone Alf Khan DO Primary Care Provider Stephan rosa Pcp, Manuel Pérez Primary Care Provider Alf Reyes DO Unavailable Unavailable Encounter Details Date Type Department Care Team (Late st Contact Info) Description 09/05/2017 [facility] Outpatient Visit [facility] [address] [place] [address] [place] [address] [facility] [address] [place] [id number] Social History Tobacco Use Types Packs/Day Years Used Date Smoking Tobacco: Former Cigarettes 1.5 25 0 12/07/1985 - 12/07/2010 Smokeless Tobacco: Never Alcohol Use Standard Drinks/Week Comments Yes 0 (1 standard drink = 0.6 oz pur e alcohol) social Sex and Gender Information Value Date Recorded Sex Assigned at Male 08/31/2020 7:44 AM CODE ENFORCEMENT INSPECTOR Legal Sex Male 4:31 AM CODE ENFORCEMENT INSPECTOR Gender Identity Male 08/31/2020 7:44 AM CODE ENFORCEMENT INSPECTOR Sexual Orientation Straight 08/31/2020 7: 44 AM CODE ENFORCEMENT INSPECTOR documented as of this encounter Functional Status * Is person deaf or have serious hearing difficulty? Answer Date of Assessment Author No 04/15/2014 9:37 AM Gil Marks RN * Is person blind or have serious difficulty seeing? Answer Date of Assessment Author No 04/15/2014 9:37 AM Gil Marks RN * Does person have serious difficulty walking/climbing stairs? Answer Date of Assessment Author No 04/15/2014 9:37 AM Gil Marks RN * Does person have difficulty dressing/bathing? Answer Date of Assessment Author No 04/15/2014 9:37 AM CDT Gil Souza RN * Does person have difficulty doing errands alone? Answer Date of Assessment Author No 04/15/2014 9:37 AM PHILIPT Gil Souza RN documented as of this encounter Mental Status * Does person have difficulty concentrating/remembering/making decisions? Answer Entry Date Author No 04/15/2014 9:37 AM PHILIPT Gil Souza RN documented in this encounter Plan of Treatment Not on file documented as of this encounter Goals Goal Patient Goal Type Associated Problems Recent Progress Patient-Stated? Author Blood Pressure < 140/90 Blood Pressure 172/93(2022 8:59 AM CDT) No Zachary Moreno documented as of this encounter Visit Diagnoses Not on filedocumented in this encounter Care Teams Avionics Systems Integration Specialist Relationship Specialty Start Date End Date Alf Khan DO PCP - General Family Medicine 09/03/13 02/27/23 PcpManuel PCP - General 02/28/23 Alf Khan DO PCP - Attributed-Lee [employer] 10/18/17 02/25/19 documented as of this encounter
--- OUTSIDE RECORDS SUMMARY | 2025-04-28 13:35 | XMS_ITS | Encounter Summary ---
Author Organization [facility] Health Address [address] [place] [address] Care Team Providers Care Sheep Rancher Name Role Phone Alf Khan DO Primary Care Provider Stephan rosa Pcp, Manuel Melgar Primary Care Provider Alf Reyes DO Unavailable Unavailable Encounter Details Date Type Department Care Team (Late st Contact Info) Description 08/29/2015 [facility] Outpatient Visit [facility] Medical [facility] - Family Medicine [address] [place] [address] Alf Khan DO Social History Tobacco Use Types Packs/Day Years Used Date Smoking Tobacco: Former Cigarettes 1.5 25 0 12/07/1985 - 12/07/2010 Smokeless Tobacco: Never Alcohol Use Standard Drinks/Week Comments Yes 0 (1 standard drink = 0.6 oz pur e alcohol) social Sex and Gender Information Value Date Recorded Sex Assigned at Male 08/31/2020 7:44 AM FIELD SERVICES 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 Answer Entry Date Author No 04/15/2014 9:37 AM CDT Gil Souza RN documented in this encounter Plan of Treatment Not on file documented as of this encounter Goals Goal Patient Goal Type Associated Problems Recent Progress Patient-Stated? Author Blood Pressure < 140/90 Blood Pressure 172/93(2022 8:59 AM CDT) No Zachary Moreno documented as of this encounter Visit Diagnoses Not on filedocumented in this encounter Care Teams Sheep Rancher Relationship Specialty Start Date End Date Alf Khan DO PCP - General Family Medicine 09/03/13 02/27/23 PcpManuel PCP - General 02/28/23 Alf Khan DO PCP - Attributed-[place] [employer] 10/18/17 02/25/19 documented as of this encounter
[2025-04-28 13:39] LABS: Alanine Aminotransferase 27 U/L (6-50); Albumin Level 4.0 g/dL (3.5-5.1); Alkaline Phosphatase 83 U/L (38-126); Anion Gap 8 mmol/L (4-12); Aspartate Amino Transferase 43 U/L (17-59); Bilirubin,Total 0.8 mg/dL (0.2-1.3); Blood Urea Nitrogen 14 mg/dL (9-20); Calcium 8.6 mg/dL (8.4-10.2); Carbon Dioxide 26 mmol/L (22-30); Chloride 101 mmol/L (98-107); Estimated CRCL calculation 149 ml/min; Estimated Glomerular Filt Rate > 60; Glucose 220 mg/dL (65-110); Potassium 4.2 mmol/L (3.4-5.0); Sodium 135 mmol/L (137-145); Total Protein 7.5 g/dL (6.3-8.2)
[2025-04-28 13:46] LABS: NT Pro B Type Natriuretic Pept 37 pg/mL (19.9-100)
[2025-04-28 14:10] LABS: Troponin I < 0.012 ng/mL (0.000-0.034)
[2025-04-28 14:59] VITALS: BP 150/62; PULSE 86; RESP 18; O2SAT 95
== END 2025-04-28 15:03 | disposition home or self-care (01) ==
PROVIDERS: Emergency Provider Emergency Medicine
DX: J18.9 Pneumonia, unspecified organism (principal); F17.210 Nicotine dependence, cigarettes, uncomplicated; Z20.822 Contact with and (suspected) exposure to COVID-19
CPT/HCPCS: 36415; 71046; 80053; 83880; 84484; 85025; 87637; 87651; 93005; 94640; 99284; A9270; J7512

== ENCOUNTER 2025-05-31 09:47 | Emergency (ER) | payer BC, SELFPAY ==
--- NOTE | ~2025-05-31 | XR_ITS ---
Lumbar spine series Indication: Chronic low back pain Comparison: CT abdomen and pelvis 08/31/2024 Technique: 3 views lumbar spine Findings: 5 nonrib-bearing lumbar-type vertebral bodies. Hypoplastic ribs T12. No acute fracture. No listhesis. Vertebral bodies normal height. Disc spaces maintained. Mild degenerative changes. SI joints congruent. Sacrum intact. Aortic calcified atherosclerotic disease. IMPRESSION: 1. No acute findings. Reviewed, dictated and finalized at location R. IMPRESSION: 1. No acute findings.
[2025-05-31 10:04] VITALS: BP 169/84; PULSE 96; RESP 17; TEMP 36.7; O2SAT 96
--- OUTSIDE RECORDS SUMMARY | 2025-05-31 10:44 | XMS_ITS | Clinical Summary ---
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
[2025-05-31 11:24] VITALS: BP 138/86; PULSE 87; RESP 16; TEMP 36.8; O2SAT 97
[2025-05-31] MEDS: HYDROcodone/acetaminophen (*CRX) 5-325 MG TABLET 1 TAB PO (14:47)
[2025-05-31] MEDS: KETOROLAC (*BKC) 60 MG/2 ML VIAL IM (14:48)
--- OUTSIDE RECORDS SUMMARY | 2025-05-31 15:20 | XMS_ITS | Clinical Summary ---
Author Organization 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
--- NOTE | 2025-05-31 16:23 | ED_ITS ---
HPI - Back Pain/Injury General Chief Complaint: Back Pain/Injury Stated Complaint: back pain Time Seen by Provider: 05/31/25 14:01 History of Present Illness HPI Narrative: Patient is a 59-year-old male who presents ER with low back pain. Has some chronic back issues but became more acutely painful over last few days. Radiating down the legs bilaterally right greater than left. No urinary frequency urgency or dysuria. Denies acute trauma. Related Data Allergies Allergy/AdvReac Type Severity Reaction Status Date / Time azithromycin Allergy Hives Verified 09/29/24 14:33 Review of Systems Review of Systems: All systems reviewed & are unremarkable except as noted in HPI and below Constitutional: Constitutional: Reports no additional constitutional complaints Respiratory: Respiratory: Reports no additional respiratory complaints Gastrointestinal: Gastrointestinal: Reports no additional gastrointestinal complaints Musculoskeletal: Musculoskeletal: Reports no additional musculoskeletal complaints Neurologic: Reports system reviewed and no additional complaints, except as documented PMF Past Medical History Medical History Elevated BP without diagnosis of hypertension History of tobacco abuse BMI 34.0-34.9,adult Perirectal abscess Yary infection of flexural skin DM2 (diabetes mellitus, type 2) Elevated hemoglobin A1c Indu-rectal abscess Surgical History Surgical History History of colonoscopy Age 50 History of incision and drainage Perirectal abscess Family History Family History Mother Cancer Alcoholism Father Acute myocardial infarction Social History Social History Social History: The patient is on his 2nd marriage and he has 2 children. The patient smoked in then quit smoking in went back to smoking and has not smoked for week. He was smoking a pack a cigarettes a day up until 1 week ago. 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 He denies any alcohol or marijuana or illicit drugs. Code status full code Smoking packs per day: 1 Smoking cigarettes per day: 20.0 Years smoked: 25 Smoking pack-years: 25.00 Smoking status: Current every day smoker Tobacco type: cigarettes Alcohol intake: never Substance use: never Substance use type: does not use Do You Feel Safe in your Home?: Yes Lack of Transportation: YES Lack of Food: Never True Current Housing: I Have Housing Concerned About Future Housing: No Difficulty Paying Gas/Electric Bills: No Difficulty Paying for Meds: No Currently Unemployed: No Education: Decline to Answer Difficulty w/ Childcare or Family Care: No Living arrangements: with family Occupation/Education: occupation 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 HEAD: Normocephalic, atraumatic. ENT: Mucous membranes moist. ABDOMEN: Soft, nontender, nondistended. BACK: TTP over the bilateral SI areas, no midline tenderness. EXTREMITIES: Normal range of motion. No edema. +Straight leg raise on the right side. SKIN: Warm, dry, no rash. NEURO: Alert and oriented x3. PSYCH: Normal mood and affect. Course Course Emergency Course: Feeling improved with Toradol and [place]. Up and more mobile than he was earlier. Discharged with Medrol Dosepak and muscle relaxers. Will give PCP for follow-up. Vital Signs Vital signs: Vital Signs Temperature 98.1 F 05/31/25 10:04 Pulse Rate 96 05/31/25 10:04 Respiratory Rate 17 05/31/25 10:04 Blood Pressure 169/84 H 05/31/25 10:04 Pulse Oximetry 96 05/31/25 10:04 Oxygen Delivery Room Air 05/31/25 10:04 Temperature 98.3 F 05/31/25 11:24 Pulse Rate 87 05/31/25 11:24 Respiratory Rate 16 05/31/25 11:24 Blood Pressure 138/86 05/31/25 11:24 Pulse Oximetry 97 05/31/25 11:24 Oxygen Delivery Room Air 05/31/25 10:04 MDM - Back Pain/Injury Imaging Data Radiologist's impression: ITS Impressions Lumbar Spine X-Ray 05/31/25 13:54 IMPRESSION: 1. No acute findings. Discharge Plan Discharge Clinical Impression: Sciatica Patient Disposition: Home Condition: Stable Instructions: Sciatica (ED) Additional Instructions: Please return to the emergency department if you develop severe pain that is not controlled by pain medications or if you are unable to walk because of pain or weakness. Return to the emergency department immediately if you develop fevers, loss of bowel or bladder control (dribbling of urine or having accidents you wouldn't normally have), inability to urinate, numbness of your genital or anal area, or weakness/numbness of your legs or arms as these could all be signs of a serious medical emergency. Patient Language: [place] Islander Prescriptions: New methylprednisolone [Medrol (Mariano)] 4 mg tablets,dose pack See Rx Instructions .ROUTE .COMPLEX Qty: 21 0RF Rx Instructions: for 6 days cyclobenzaprine 10 mg tablet 10 mg PO TID PRN (Reason: muscle spasm) Qty: 20 0RF No Action simvastatin 10 mg tablet 10 mg PO DAILY Qty: 90 1RF doxycycline hyclate 100 mg tablet 100 mg PO BID Qty: 14 0RF benzonatate 200 mg capsule 200 mg PO TID PRN (Reason: cough) Qty: 21 0RF prednisone 20 mg tablet 40 mg PO DAILY 5 Days Qty: 10 0RF albuterol sulfate 90 mcg/actuation HFA aerosol inhaler 2 puff inhalation QID PRN (Reason: shortness of breath or wheezing) Qty: 8.5 0RF ibuprofen 600 mg tablet 600 mg PO TID PRN (Reason: pain) 6 Days Qty: 18 0RF lisinopril 10 mg tablet 10 mg PO DAILY Qty: 90 0RF Follow-up/Referrals: Jean Marie King MD [Physician, Family Practice] - 1 Week PHYSICIAN,MACHINE ROOM ENGINEER [Primary Care Provider, Internal Medicine] Stand Alone Forms: Work/School Release IP
[2025-05-31 16:51] VITALS: BP 138/66; PULSE 65; RESP 19; O2SAT 99
== END 2025-05-31 16:53 | disposition home or self-care (01) ==
PROVIDERS: Emergency Provider Emergency Medicine
DX: M54.42 Lumbago with sciatica, left side (principal); M54.41 Lumbago with sciatica, right side; E11.9 Type 2 diabetes mellitus without complications; Z87.891 Personal history of nicotine dependence; Z79.899 Other long term (current) drug therapy
CPT/HCPCS: 72100; 96372; 99283; A9270; J1885

== ENCOUNTER 2025-06-23 09:56 | Outpatient (CLI) | payer BC, SELFPAY ==
[2025-06-23 10:40] LABS: Add Urine Microscopic? NO; Appearance Urine Clear (Clear); Glucose Urine UA 3+ mg/dL (Negative); Leukocyte Esterase Ur Negative LEU/UL (Negative); Nitrate Urine Negative (Negative); Specific Grav Ur 1.043 (1.001-1.035)
[2025-06-23 10:46] LABS: Hematocrit 50.4 % (42.0-52.0); Hemoglobin 17.7 g/dL (14.0-18.0); Immature Granulocyte Percent A 0.2 % (0-0.5); Lymphocytes Absolute Auto 3.19 K/mm3 (0.9-3.2); Mean Corpuscular HGB Conc 35.1 g/dl (32-36); Mean Corpuscular Hemoglobin 33.2 pg (26-34); Mean Corpuscular Volume 94.6 fl (80-100); Nucleated Red Blood Cells Absolute Auto 0.000 K/mm3 (0.0-0.012); Nucleated Red Blood Cells Perc 0.0 % (0.0-0.2); Platelet Count Result 194 k/mm3 (150-375); Red Blood Count 5.33 M/mm3 (4.6-6.20); White Blood Count 9.3 K/mm3 (4.5-10.0)
[2025-06-23 11:06] LABS: MALB Creatinine Ratio 67.1 mg/g (0-30)
--- OUTSIDE RECORDS SUMMARY | 2025-06-23 11:07 | XMS_ITS | Encounter Summary ---
Author Organization [facility] Health Address [address] [place] [address] Care Team Providers Care Pattern Shop Supervisor Name Role Phone Alf Khan DO Primary Care Provider Stephan rosa Pcp, Manuel Melgar Primary Care Provider Alf Reyes DO Unavailable Unavailable Encounter Details Date Type Department Care Team (Late st Contact Info) Description 08/29/2015 [facility] Outpatient Visit [facility] - Family Medicine [address] [place] [address] Alf Khan DO Social History Tobacco Use Types Packs/Day Years Used Date Smoking Tobacco: Former Cigarettes 1.5 25 0 12/07/1985 - 12/07/2010 Smokeless Tobacco: Never Alcohol Use Standard Drinks/Week Comments Yes 0 (1 standard drink = 0.6 oz pur e alcohol) social Sex and Gender Information Value Date Recorded Sex Assigned at Male 08/31/2020 7:44 AM HYDROLOGIST Legal Sex Male 4:31 AM HYDROLOGIST Gender Identity Male 08/31/2020 7:44 AM HYDROLOGIST Sexual Orientation Straight 08/31/2020 7: 44 AM HYDROLOGIST documented as of this encounter Functional Status [...] on filedocumented in this encounter Care Teams Pattern Shop Supervisor Relationship Specialty Start Date End Date Alf Khan DO PCP - General Family Medicine 09/03/13 02/27/23 PcpManuel PCP - General 02/28/23 Alf Khan DO PCP - Attributed-[place] [employer] 10/18/17 02/25/19 documented as of this encounter
--- OUTSIDE RECORDS SUMMARY | 2025-06-23 11:07 | XMS_ITS | Clinical Summary ---
Author Organization [facility] Address [address] [address] [place] [address] Care Team Providers Care Guest Services Officer Name Role Phone Pcp, Manuel Pérez Primary Care Provider Unav ailable Source Comments [facility],non-owned Affiliates and Associated Physician Practices is amultiple site organization consisting of ambulatory clinics and hospital sitesin [place], [place], [place] and [place]. This disclosure is being madepursuant to the Care Everywhere program and may not contain all information available regarding this patient. Last updated 18.[facility] Allergies Active Allergy Reactions Criticality Noted Date Comments Perry Inhibitors Cough Low 09/30/2009 Azithromycin Itching 02/18/2019 Medications * Be aware that medications may not be up to date on this document. Alwaysverify current medications with the patient. HYDROcodone-acet aminophen ([place]) 5-325 MG tabletIndication s:Chronic pain syndrome Take 1 (one) tablet by mouth every 4 hours as needed for Pain Dx M50.30 120 tablet 02/03/2023 Active HYDROcodone-acet aminophen ([place]) 7.5-325 MG tabletIndication s:Chronic pain syndrome Take 1 (one) tablet by mouth every 4 hours as needed for Pain Dx M50.30 120 tablet 01/07/2023 Active HYDROcodone-acet aminophen ([place]) 7.5-325 MG tabletIndication s:Chronic pain syndrome Take [...] Sex Assigned at Male 08/31/2020 7:44 AM JUVENILE CORRECTIONAL OFFICER Legal Sex Male 4:31 AM JUVENILE CORRECTIONAL OFFICER Gender Identity Male 08/31/2020 7:44 AM JUVENILE CORRECTIONAL OFFICER Sexual Orientation Straight 08/31/2020 7: 44 AM JUVENILE CORRECTIONAL OFFICER Last Filed Vital Signs Vital Sign Reading [...] CONFIRMATION (01/09/2021 10:45 AM CDT) Opiates Negative [id number] [facility] ACCOUNT BILL Comment: Opiate test includes Codeine and Morphine only. FASTING 01/09/2021 10:4 5 AM CDT 01/09/2021 Narrative Resulting Agency Comment Lab Testing performed at: [facility] [place] [address] [place] [id number] [place] Alf Khan DO LAB - URINE CHEMISTRY ORDERAB LES Final Result [facility] ACCOUNT BILL [address] [place] [address] * (ABNORMAL) COMPREHENSIVE METABOLIC PANEL (01/09/2021 10:44 [...] Resulting Agency Comment Lab Testing performed at: [facility] [id number] [facility] [id number] Alf Khan DO LAB - CHEMISTRY ORDERABLES Fi nal Result Performing Organization Address [facility] de Phone Number [facility] ACCOUNT BILL [address] [place] [address] * (ABNORMAL) LIPID PROFILE (01/09/2021 10:44 AM [...] Resulting Agency Comment [facility] performed [facility]: [facility] [address] [facility] [id number] Alf Khan DO LAB - CHEMISTRY ORDERABLES Fi nal Result Performing Organization Address [facility] de Phone Number [facility] ACCOUNT BILL [address] [place] [address] * ENDOSCOPY, COLON, SCREENING (04/15/2014 8:24 AM [...] for surveillance. Procedure Code(s): --- Professional --- 36746, Colonoscopy, flexible, proximal to splenic flexure; with removal of tumor(s), polyp(s), or other lesion(s) by snare technique --- Technical --- 49708, Colonoscopy, flexible, proximal to splenic flexure; with [...] (without mention of hemorrhage) CPT copyright 2013 [employer]. All rights reserved. The codes documented in this report are preliminary and upon area forester review may be revised to meet current compliance requirements. ___ Astrid Rios DO 04/15/2014 8:51 AM This report has been signed electronically. Number of Addenda: 0 Note Initiated On: 04/15/2014 8:24 AM [facility] ENDOSCOPY 04/15/2014 8:24 AM CDT Astrid Rios DO GI PROCEDURE ORDERABLES Edite d Result - Final [facility] [place] [address] * HEPATITIS SCREEN ACUTE W/REFLX HBSAG (POREF (05/09/2011 2:50 PM CDT) Hepatitis A Virus Antibody IgM NON-REACTI VE NON-REACT [facility] Comment: Test Performed at: [facility] [place] [address] [place] [address] BISI SCHWARZ DO,MPH Hepatitis B Virus Surface Antigen NON-REACTI VE NON-REACT [facility] Hepatitis B Core Virus Antibody IgM NON-REACTI VE NON-REACT [facility] Hepatitis C Antibody NON-REACTI VE NON-REACT [facility] Signal to Cut-Off 0.12 <1.00 [facility] 05/09/2011 2:50 PM CDT 05/10/2011 5:23 AM CDT us oJse Rust DO LAB - CHEMISTRY ORDERABLES Fi nal Result [facility] [address] [place] [address] from Last 3 Months or Most Recently Relevant to Health Maintenance Insurance [facility] [place] [address] [place] Care Teams Guest Services Officer Relationship Specialty Start Date End Date Pcp, Manuel Pérez PCP - General 02/28/23
--- OUTSIDE RECORDS SUMMARY | 2025-06-23 11:07 | XMS_ITS | Clinical Summary ---
Author Organization [facility] Address [address] [place] [address] Care Team Providers Care Thread Inspector Name Role Phone Alf Khan DO Primary Care Provider [phone] Allergies Active Allergy Reactions Criticality Noted Date [...] on file Legal Sex Male 10:34 AM VICE PRESIDENT NETWORK Gender Identity Not on file Sexual Orientation [...] - Td or Tdap) 07/11/2031, 06/10/2012 Insurance [employer] [place] Care Teams Thread Inspector Relationship Specialty Start Date End Date Alf Khan DO [address] [place] [address] PCP - General 07/11/21
--- OUTSIDE RECORDS SUMMARY | 2025-06-23 11:07 | XMS_ITS | Encounter Summary ---
Author Organization [facility] Health Address [address] [place] [address] Care Team Providers Care High School Academic Coach Name Role Phone Alf Khan DO Primary Care Provider Stephan rosa Pcp, Manuel Pérez Primary Care Provider Alf Reyes DO Unavailable Unavailable Encounter Details Date Type Department Care Team (Late st Contact Info) Description 09/05/2017 [facility] Outpatient Visit [facility] [address] [place] [address] [place] [address] [facility] [address] [place] [id number] Social History Tobacco Use Types Packs/Day Years Used Date Smoking Tobacco: Former Cigarettes 1.5 25 0 12/07/1985 - 12/07/2010 Smokeless Tobacco: Never Alcohol Use Standard Drinks/Week Comments Yes 0 (1 standard drink = 0.6 oz pur e alcohol) social Sex and Gender Information Value Date Recorded Sex Assigned at Male 08/31/2020 7:44 AM RUG MEASURER Legal Sex Male 4:31 AM RUG MEASURER Gender Identity Male 08/31/2020 7:44 AM RUG MEASURER Sexual Orientation Straight 08/31/2020 7: 44 AM RUG MEASURER documented as of this encounter Functional Status [...] on filedocumented in this encounter Care Teams High School Academic Coach Relationship Specialty Start Date End Date Alf Khan DO PCP - General Family Medicine 09/03/13 02/27/23 PcpManuel PCP - General 02/28/23 Alf Khan DO PCP - Attributed-[place] [employer] 10/18/17 02/25/19 documented as of this encounter
[2025-06-23 11:17] LABS: Alanine Aminotransferase 27 U/L (6-50); Albumin Level 4.2 g/dL (3.5-5.1); Alkaline Phosphatase 92 U/L (38-126); Anion Gap 6 mmol/L (4-12); Aspartate Amino Transferase 42 U/L (17-59); Bilirubin,Total 0.7 mg/dL (0.2-1.3); Blood Urea Nitrogen 13 mg/dL (9-20); Calcium 9.1 mg/dL (8.4-10.2); Carbon Dioxide 27 mmol/L (22-30); Chloride 100 mmol/L (98-107); Cholesterol 257 mg/dL (0-200); Estimated Glomerular Filt Rate > 60; Glucose 332 mg/dL (65-110); HDL Direct 30 mg/dL; Potassium 4.7 mmol/L (3.4-5.0); Sodium 133 mmol/L (137-145); Total Protein 7.7 g/dL (6.3-8.2)
[2025-06-23 11:31] LABS: Thyroid Stimulating Hormone Reflex 1.750 uIU/mL (0.465-4.68)
[2025-06-23 11:39] LABS: Prostate Specific Antigen 5.4 ng/mL (< OR = 4.0)
[2025-06-23 11:53] LABS: Triglycerides 1013 mg/dL (<150)
[2025-06-23 12:06] LABS: Hemoglobin A1C 9.8 % (<5.7)
[2025-06-23 12:11] LABS: Vitamin B12 266.0 pg/mL (239-931)
== END 2025-06-23 09:57 | disposition home or self-care (01) ==
LOC: ANHLAB 10:00
PROVIDERS: Visit Provider Emergency Medicine
DX: E78.2 Mixed hyperlipidemia (principal); E11.9 Type 2 diabetes mellitus without complications; I10 Essential (primary) hypertension; M62.830 Muscle spasm of back; N40.1 Benign prostatic hyperplasia with lower urinary tract symptoms; Z00.01 Encounter for general adult medical examination with abnormal findings
CPT/HCPCS: 36415; 80061; 80069; 80076; 81003; 82043; 82607; 82746; 83036; 84153; 84443; 85025; G0103

== ENCOUNTER 2025-08-18 19:20 | Emergency (ER) | payer BC, SELFPAY ==
[2025-08-18 19:50] VITALS: BP 174/91; PULSE 83; RESP 18; TEMP 36.4; O2SAT 95
--- NOTE | 2025-08-18 20:38 | ED.DENTAL ---
HPI - Dental/Oral General Chief complaint: Dental/Oral Stated complaint: swelling on left side of face Time Seen by Provider: 08/18/25 20:33 Source: patient Mode of arrival: ambulatory Limitations: no limitations History of Present Illness HPI Narrative: This is a 59 year old male that presents to the ER for toothache, facial pain. Ongoing over the last several days. Denies fevers. MD Complaint: tooth pain Related Data Allergies Allergy/AdvReac Type Severity Reaction Status Date / Time azithromycin Allergy Hives Verified 09/29/24 14:33 Review of Systems Review of Systems: All systems reviewed & are unremarkable except as noted in HPI and below PMFSH Past Medical History Medical History Elevated BP without diagnosis of hypertension History of tobacco abuse BMI 34.0-34.9,adult Perirectal abscess Yary infection of flexural skin DM2 (diabetes mellitus, type 2) Elevated hemoglobin A1c Indu-rectal abscess Surgical History Surgical History History of colonoscopy Age 50 History of incision and drainage Perirectal abscess Family History Family History Mother Cancer Alcoholism Father Acute myocardial infarction Social History Social History Social History: The patient is on his 2nd marriage and he has 2 children. The patient smoked in then quit smoking in went back to smoking and has not smoked for week. He was smoking a pack a cigarettes a day up until 1 week ago. 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 He denies any alcohol or marijuana or illicit drugs. Code status full code Smoking packs per day: 1 Smoking cigarettes per day: 20.0 Years smoked: 25 Smoking pack-years: 25.00 Smoking status: Current every day smoker Tobacco type: cigarettes Alcohol intake: never Substance use: never Substance use type: does not use Lack of Transportation: YES Lack of Food: Never True Current Housing: I Have Housing Concerned About Future Housing: No Difficulty Paying Gas/Electric Bills: No Difficulty Paying for Meds: No Currently Unemployed: No Education: Decline to Answer Difficulty w/ Childcare or Family Care: No Living arrangements: with family Occupation/Education: occupation 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 HEAD: Normocephalic, atraumatic. ENT: Nares clear, no rhinorrhea or epistaxis. Mucous membranes moist. Oropharynx without tonsillar hypertrophy exudate or other lesions. Poor dentition. No focal abscess. No trismus. Floor of mouth is soft. Bilateral TMs pearly dennis non-bulging NECK: Supple. No adenopathy or masses. CHEST: No respiratory distress. HEART: Regular rate EXTREMITIES: Normal range of motion. No edema. SKIN: Warm, dry, no rash. NEURO: No focal deficits. Alert and oriented x3. PSYCH: Normal mood and affect Course Vital Signs Vital signs: Vital Signs Temperature 97.6 F 08/18/25 19:50 Pulse Rate 83 08/18/25 19:50 Respiratory Rate 18 08/18/25 19:50 Blood Pressure 174/91 H 08/18/25 19:50 Pulse Oximetry 95 08/18/25 19:50 Oxygen Delivery Room Air 08/18/25 19:50 Temperature 97.6 F 08/18/25 19:50 Pulse Rate 83 08/18/25 19:50 Respiratory Rate 18 08/18/25 19:50 Blood Pressure 174/91 H 08/18/25 19:50 Pulse Oximetry 95 08/18/25 19:50 Oxygen Delivery Room Air 08/18/25 19:50 [facility] MDM Narrative Medical decision making narrative: Patient presents the emergency department for facial pain, toothache. He is afebrile and nontoxic appearing. No focal abscess noted on exam. Will be started on oral antibiotics. Instructed to follow-up with dentist Differential Diagnosis Differential Diagnosis: Toothache, dental abscess, sinusitis Critical Care Time Critical Care Time Critical Care Time: No Discharge Plan Discharge Clinical Impression: Toothache Patient Disposition: Home Condition: Stable Instructions: Antibiotic Form, Toothache (ED) Additional Instructions: Return to the Emergency Department if you experience fever >101, increasing swelling and redness of your tooth, or any other symptoms that are concerning to you Take antibiotic as prescribed. Tylenol or Ibuprofen as needed for pain. Take oral antibiotic as prescribed Follow up with your dentist Patient Language: Vietnamese Prescriptions: New amoxicillin-pot clavulanate 875-125 mg tablet 1 tablet PO Q12H 7 Days Qty: 14 0RF No Action simvastatin 10 mg tablet 10 mg PO DAILY Qty: 90 1RF doxycycline hyclate 100 mg tablet 100 mg PO BID Qty: 14 0RF benzonatate 200 mg capsule 200 mg PO TID PRN (Reason: cough) Qty: 21 0RF prednisone 20 mg tablet 40 mg PO DAILY 5 Days Qty: 10 0RF albuterol sulfate 90 mcg/actuation HFA aerosol inhaler 2 puff inhalation QID PRN (Reason: shortness of breath or wheezing) Qty: 8.5 0RF ibuprofen 600 mg tablet 600 mg PO TID PRN (Reason: pain) 6 Days Qty: 18 0RF methylprednisolone [Medrol (Mariano)] 4 mg tablets,dose pack See Rx Instructions .ROUTE .COMPLEX Qty: 21 0RF Rx Instructions: for 6 days cyclobenzaprine 10 mg tablet 10 mg PO TID PRN (Reason: muscle spasm) Qty: 20 0RF lisinopril 10 mg tablet 10 mg PO DAILY Qty: 90 0RF Follow-up/Referrals: PHYSICIAN,SUPERVISOR ESTIMATOR AND DRAFTER [Primary Care Provider, Internal Medicine] Stand Alone Forms: Work/School Release IP
[2025-08-18] MEDS: ACETAMINOPHEN 500 MG TABLET 1000 MG PO (20:55)
[2025-08-18] MEDS: KETOROLAC 30 MG/ML VIAL (*BKC) IM (20:56)
== END 2025-08-18 21:16 | disposition home or self-care (01) ==
LOC: ANHED 20:44
PROVIDERS: Emergency Provider Physician Assistant
DX: K08.89 Other specified disorders of teeth and supporting structures (principal); E11.9 Type 2 diabetes mellitus without complications; F17.210 Nicotine dependence, cigarettes, uncomplicated
CPT/HCPCS: 96372; 99283; A9270; J1885